=== PATIENT | female | born 1945 | race Caucasian/White ===

== ENCOUNTER 2018-04-24 08:19 | Outpatient (CLI) | payer MEDICARE, SELFPAY ==
[2018-04-24 09:12] LABS: HCT 39.8 % (36.0-46.0); HGB 13.6 g/dL (12.0-15.5); Mean Corp. HGB Concentration 34.2 g/dL (32.0-36.0); Mean Corpuscular Hemoglobin 31.5 pg (27.0-33.0); Mean Corpuscular Volume 92.1 fL (80-95); Mean Platelet Volume 8.6 fL (8.0-11.0); Platelet Count 277 x1000/uL (130-400); RBC 4.32 m/cumm (4.00-5.20); RBC Distribution Width 13.3 % (11.7-14.6)
[2018-04-24 09:28] LABS: Hemoglobin A1C 6.2 % (4.5-6.2)
[2018-04-24 11:02] LABS: Anion Gap 13.6 mmol/L (3-11); BUN 20 mg/dL (7-18); CO2 24.4 mmol/L (21.0-32.0); CREATININE 0.69 mg/dL (0.55-1.02); Calcium 9.6 mg/dL (8.5-10.1); Chloride 104 mmol/L (98-107); Cholesterol 143 mg/dL (50-200); Glucose 125 mg/dL (70-100); HDL Cholesterol 48 mg/dL (40-60); LDL CHOLESTEROL 77 mg/dL (<100); Potassium 3.6 mmol/L (3.5-5.1); Sodium 142 mmol/L (136-145); Triglyceride 119 mg/dL (30-150)
== END 2018-04-24 08:39 ==
PROVIDERS: PCP Family Medicine; Visit Provider Family Medicine
DX: E11.9 Type 2 diabetes mellitus without complications (principal); E78.5 Hyperlipidemia, unspecified; I10 Essential (primary) hypertension
CPT/HCPCS: 36415; 80048; 80061; 83721; 85027; 83036

== ENCOUNTER 2018-06-24 08:33 | Emergency (ER) | payer MEDICARE, SELFPAY ==
[2018-06-24 08:37] VITALS: BP 157/74; PULSE 59; RESP 16; TEMP 36.8; O2SAT 99
--- NOTE | 2018-06-24 08:51 | DI.RAD_ITS ---
SYMPTOMS/DIAGNOSIS: PAIN S/P FALL DOWN STAIRS RIGHT WRIST: Three views of the wrist were obtained. There is a comminuted, moderately displaced and impacted fracture of the distal radius. There is significant widening of the articular surface of the distal radius. There are severe degenerative changes of the wrist, predominantly involving the greater multangular 1st metacarpal joint. No additional fractures seen.
--- NOTE | 2018-06-24 08:58 | W.ED.GENAD ---
Discharge Plan Disposition Patient Disposition: HOME Condition: Stable Discharge Details Chief Complaint: Orthopedic Clinical Impression: Distal radius fracture, right Primary Care Provider: Angie Alonzo ED Provider: Dewayne Hernandez Home Meds and New Rx's Prescriptions: Continued metoprolol succinate [Toprol XL] 50 MG tablet extended release 24 hr 50 mg PO DAILY RF: 0 chlorthalidone 25 MG tablet 25 mg PO DAILY RF: 0 aspirin [Aspir-81] 81 MG tablet,delayed release (DR/EC) 81 mg PO DAILY RF: 0 tamoxifen 20 MG tablet 20 mg PO DAILY RF: 0 diltiazem HCl 240 MG capsule,extended release 24hr 240 mg PO .QPM RF: 0 potassium chloride [Klor-Con M20] 20 MEQ tablet,ER particles/crystals 20 meq PO DAILY RF: 0 lisinopril 40 MG tablet 40 mg PO DAILY RF: 0 multivitamin [Multi-Day] 1 EACH tablet 1 tab PO DAILY RF: 0 calcium carbonate-vitamin D3 1 EACH tablet 1 tab PO BID RF: 0 atorvastatin 40 MG tablet 40 mg PO .QPM RF: 0 pantoprazole 20 MG tablet,delayed release (DR/EC) 20 mg PO DAILY RF: 0 methylcellulose (laxative) [Citrucel Sugar Free] 1,191 GM powder 1 tbs PO DAILY RF: 0 ondansetron 4 MG tablet,disintegrating 4 mg PO Q8H PRN PRNQty: 15 RF: 0 Discharge Instructions Instructions: Wrist Fracture in Adults (ED) Additional Instructions: call orthopedics tomorrow morning for an appointment you can take 1000mg tylenol and 600mg ibuprofen every 6 hours for pain as needed Referrals: Carlos Encinas MD [ [facility] STAFF PHYSICIAN] - Medical Decision Making 72 yo female states she was going down stairs backwards carrying something when she missed the last step and landed on her right wrist. Denies hitting head or loc, no headache, neck pain even on rom, no chestp ain, leg pain left arm pain or abd pain. Has pain in the right wrist with swelling, will xray this to eval for fx, no pain in elbow or shoulder, humerus or upper forearm (proximal forearm) so do not feel other imaging required. xray shows fracture with mild displacement, pt placed in splint and will f/u with ortho. She declined any opiate prescriptions at this time Differential Diagnosis contusion, fx, sprain Imaging Data Radiologic Study: Attestation: I personally reviewed and interpreted this imaging study as follows: Imaging: X-Ray My impression: fracture HPI General Mode of arrival: ambulatory. Date/Time Provider Initiated Documentation: 06/24/18 08:44. Limitations to Documentation: no limitations. Information obtained by: patient. History of Present Illness 72 year old F presents to the emergency department with the chief complaint of right wrist pain, described as moderate, with intensity rated at 6. Quality is described as aching, and is localized to the right and upper extremity. Patient reports no radiation. Patient started experiencing this hour(s) (1) and it has been constant. No relieving factors improve symptom(s), No exacerbating factors reported . Patient notes no other symptoms.. Related Data Home Medications Medication Instructions Recorded Confirmed calcium carbonate-vitamin D3 1 tab PO BID 09/01/12 08/30/16 diltiazem HCl 240 mg PO .QPM 09/01/12 08/30/16 lisinopril 40 mg PO DAILY 09/01/12 08/30/16 multivitamin [Multi-Day] 1 tab PO DAILY 09/01/12 08/30/16 potassium chloride [Klor-Con M20] 20 meq PO DAILY 09/01/12 08/30/16 atorvastatin 40 mg PO .QPM 08/16/16 08/30/16 methylcellulose (laxative) 1 tbs PO DAILY 08/16/16 08/30/16 [Citrucel Sugar Free] pantoprazole 20 mg PO DAILY 08/16/16 08/30/16 ondansetron 4 mg PO Q8H PRN PRN #15 tab.rapdis 08/31/16 metoprolol succinate [Toprol XL] 50 mg PO DAILY tab-cap 11/23/16 aspirin [Aspir-81] 81 mg PO DAILY tab-cap 09/11/17 chlorthalidone 25 mg PO DAILY tab-cap 09/11/17 tamoxifen 20 mg PO DAILY tab-cap 09/11/17 Previous Rx's Medication Instructions Recorded ondansetron 4 mg PO Q8H PRN PRN #15 tab.rapdis 08/31/16 Allergies Allergy/AdvReac Type Severity Reaction Status Date / Time Penicillins Allergy Unknown Pt unaware Unverified 09/11/17 09:46 of allery or response General Stated Complaint: Orthopedic ERIC: 3 Review of Systems Review of Systems All systems reviewed & are unremarkable except as noted in HPI and below Constitutional Denies chills, Denies fever(s) and Denies weakness Eyes Denies loss of vision ENT Denies change in voice Cardiovascular Denies chest pain and Denies dyspnea Respiratory Denies dyspnea Gastrointestinal Denies abdominal pain, Denies nausea and Denies vomiting Genitourinary Denies dysuria Musculoskeletal Denies joint swelling Integumentary/Breasts Denies rash Neurologic Denies loss of vision and Denies weakness Endocrine Denies heat intolerance [facility] Medical History Adenomatous colon polyp Back pain Barretts esophagus Controlled diabetes mellitus without long-term current use of insulin Diverticulosis Gastric hemorrhage History of stroke Hyperlipidemia Hypertension Intracranial hemorrhage, spontaneous intraparenchymal, associated with hypertension, acute Obstructive sleep apnea Osteoarthritis Pancreatitis Sciatica of left side 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 Surgical History Biopsy of breast (12/04/16) Colonoscopy - IV Sedation EGD - IV Sedation Total replacement of hip Family History Other Lung cancer Social History Smoking/Tobacco Use Status: Never Exam Const General: no acute distress Orientation: alert [facility] Head: normal to inspection Ears: external ears normal General nose exam: external nose normal Mouth: moist mucous membranes Eyes General: appearance normal, both eyes and all related structures Neck Neck: normal visual inspection Resp Effort & Inspection: normal respiratory effort and able to speak in complete sentences Cardio Rate: regular rate Skin General skin exam: no rashes or lesions noted Neuro General: alert and oriented x3 Extrem General: normal capillary refill Psych Mental Status: mental status grossly normal Course Vital Signs Temperature 36.8 C 06/24/18 08:37 Pulse 59 L 06/24/18 08:37 Respiratory Rate 16 06/24/18 08:37 Blood Pressure 157/74 H 06/24/18 08:37 Pulse Oximetry 99 06/24/18 08:37 Temperature 36.8 C 06/24/18 08:37 Temperature Source Temporal Artery Scan 06/24/18 08:37 Pulse 59 L 06/24/18 08:37 Respiratory Rate 16 06/24/18 08:37 Respiratory Effort 06/24/18 08:45 Blood Pressure 157/74 H 06/24/18 08:37 Blood Pressure Position Sitting 06/24/18 08:37 Pulse Oximetry 99 06/24/18 08:37 Oxygen Delivery Method Room Air 06/24/18 08:37 Oxygen Flow Rate 0 06/24/18 08:37 Pain Level 8 06/24/18 08:37
--- NOTE | 2018-06-24 09:01 | ED.GENADUL_ITS ---
Discharge Plan Disposition Patient Disposition: HOME Condition: Stable Discharge Details Chief Complaint: Orthopedic Clinical Impression: Distal radius fracture, right Primary Care Provider: Angie Alonzo ED Provider: Dewayne Hernandez Home Meds and New Rx's Prescriptions: Continued metoprolol succinate [Toprol XL] 50 MG tablet extended release 24 hr 50 mg PO DAILY RF: 0 chlorthalidone 25 MG tablet 25 mg PO DAILY RF: 0 aspirin [Aspir-81] 81 MG tablet,delayed release (DR/EC) 81 mg PO DAILY RF: 0 tamoxifen 20 MG tablet 20 mg PO DAILY RF: 0 diltiazem HCl 240 MG capsule,extended release 24hr 240 mg PO .QPM RF: 0 potassium chloride [Klor-Con M20] 20 MEQ tablet,ER particles/crystals 20 meq PO DAILY RF: 0 lisinopril 40 MG tablet 40 mg PO DAILY RF: 0 multivitamin [Multi-Day] 1 EACH tablet 1 tab PO DAILY RF: 0 calcium carbonate-vitamin D3 1 EACH tablet 1 tab PO BID RF: 0 atorvastatin 40 MG tablet 40 mg PO .QPM RF: 0 pantoprazole 20 MG tablet,delayed release (DR/EC) 20 mg PO DAILY RF: 0 methylcellulose (laxative) [Citrucel Sugar Free] 1,191 GM powder 1 tbs PO DAILY RF: 0 ondansetron 4 MG tablet,disintegrating 4 mg PO Q8H PRN PRNQty: 15 RF: 0 Discharge Instructions Instructions: Wrist Fracture in Adults (ED) Additional Instructions: call orthopedics tomorrow morning for an appointment you can take 1000mg tylenol and 600mg ibuprofen every 6 hours for pain as needed Referrals: Carlos Encinas MD [ [facility] STAFF PHYSICIAN] - Medical Decision Making 72 yo female states she was going down stairs backwards carrying something when she missed the last step and landed on her right wrist. Denies hitting head or loc, no headache, neck pain even on rom, no chestp ain, leg pain left arm pain or abd pain. Has pain in the right wrist with swelling, will xray this to eval for fx, no pain in elbow or shoulder, humerus or upper forearm (proximal forearm) so do not feel other imaging required. xray shows fracture with mild displacement, pt placed in splint and will f/u with ortho. She declined any opiate prescriptions at this time Differential Diagnosis contusion, fx, sprain Imaging Data Radiologic Study: Attestation: I personally reviewed and interpreted this imaging study as follows: Imaging: X-Ray My impression: fracture HPI General Mode of arrival: ambulatory . Date/Time Provider Initiated Documentation: 06/24/18 08:44 . Limitations to Documentation: no limitations . Information obtained by: patient . History of Present Illness 72 year old F presents to the emergency department with the chief complaint of right wrist pain, described as moderate, with intensity rated at 6. Quality is described as aching, and is localized to the right and upper extremity. Patient reports no radiation. Patient started experiencing this hour(s) (1) and it has been constant. No relieving factors improve symptom(s), No exacerbating factors reported . Patient notes no other symptoms.. Related Data Home Medications Medication Instructions Recorded Confirmed calcium carbonate-vitamin D3 1 tab PO BID 09/01/12 08/30/16 diltiazem HCl 240 mg PO .QPM 09/01/12 08/30/16 lisinopril 40 mg PO DAILY 09/01/12 08/30/16 multivitamin [Multi-Day] 1 tab PO DAILY 09/01/12 08/30/16 potassium chloride [Klor-Con M20] 20 meq PO DAILY 09/01/12 08/30/16 atorvastatin 40 mg PO .QPM 08/16/16 08/30/16 methylcellulose (laxative) 1 tbs PO DAILY 08/16/16 08/30/16 [Citrucel Sugar Free] pantoprazole 20 mg PO DAILY 08/16/16 08/30/16 ondansetron 4 mg PO Q8H PRN PRN #15 tab.rapdis 08/31/16 metoprolol succinate [Toprol XL] 50 mg PO DAILY tab-cap 11/23/16 aspirin [Aspir-81] 81 mg PO DAILY tab-cap 09/11/17 chlorthalidone 25 mg PO DAILY tab-cap 09/11/17 tamoxifen 20 mg PO DAILY tab-cap 09/11/17 Previous Rx's Medication Instructions Recorded ondansetron 4 mg PO Q8H PRN PRN #15 tab.rapdis 08/31/16 Allergies Allergy/AdvReac Type Severity Reaction Status Date / Time Penicillins Allergy Unknown Pt unaware Unverified 09/11/17 09:46 of allery or response General Stated Complaint: Orthopedic ERIC: 3 Review of Systems Review of Systems All systems reviewed & are unremarkable except as noted in HPI and below Constitutional Denies chills, Denies fever(s) and Denies weakness Eyes Denies loss of vision ENT Denies change in voice Cardiovascular Denies chest pain and Denies dyspnea Respiratory Denies dyspnea Gastrointestinal Denies abdominal pain, Denies nausea and Denies vomiting Genitourinary Denies dysuria Musculoskeletal Denies joint swelling Integumentary/Breasts Denies rash Neurologic Denies loss of vision and Denies weakness Endocrine Denies heat intolerance [facility] Medical History Adenomatous colon polyp Back pain Barretts esophagus Controlled diabetes mellitus without long-term current use of insulin Diverticulosis Gastric hemorrhage History of stroke Hyperlipidemia Hypertension Intracranial hemorrhage, spontaneous intraparenchymal, associated with hypertension, acute Obstructive sleep apnea Osteoarthritis Pancreatitis Sciatica of left side 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 Surgical History Biopsy of breast (12/04/16) Colonoscopy - IV Sedation EGD - IV Sedation Total replacement of hip Family History Other Lung cancer Social History Smoking/Tobacco Use Status: Never Exam Const General: no acute distress Orientation: alert [facility] Head: normal to inspection Ears: external ears normal General nose exam: external nose normal Mouth: moist mucous membranes Eyes General: appearance normal, both eyes and all related structures Neck Neck: normal visual inspection Resp Effort & Inspection: normal respiratory effort and able to speak in complete sentences Cardio Rate: regular rate Skin General skin exam: no rashes or lesions noted Neuro General: alert and oriented x3 Extrem General: normal capillary refill Psych Mental Status: mental status grossly normal Course Vital Signs Temperature 36.8 C 06/24/18 08:37 Pulse 59 L 06/24/18 08:37 Respiratory Rate 16 06/24/18 08:37 Blood Pressure 157/74 H 06/24/18 08:37 Pulse Oximetry 99 06/24/18 08:37 Temperature 36.8 C 06/24/18 08:37 Temperature Source Temporal Artery Scan 06/24/18 08:37 Pulse 59 L 06/24/18 08:37 Respiratory Rate 16 06/24/18 08:37 Respiratory Effort 06/24/18 08:45 Blood Pressure 157/74 H 06/24/18 08:37 Blood Pressure Position Sitting 06/24/18 08:37 Pulse Oximetry 99 06/24/18 08:37 Oxygen Delivery Method Room Air 06/24/18 08:37 Oxygen Flow Rate 0 06/24/18 08:37 Pain Level 8 06/24/18 08:37
--- NOTE | 2018-06-24 10:30 | DI.VRAD_ITS ---
EXAM: XR Right Wrist Complete, 3 or more Views EXAM DATE/TIME: 06/24/2018 9:17 AM CLINICAL HISTORY: 72 years old, female; Injury or trauma; Fall; Initial encounter; Blunt trauma (contusions or hematomas; Wrist; Right; Injury date: 06/24/2018; Injury details: Fell down stairs TECHNIQUE: XR Right wrist 3 or more views. COMPARISON: No relevant prior studies available. FINDINGS: Bones/joints: There is an acute, considerably comminuted and variably displaced fracture through the distal radius. There is intra-articular extension to the radiocarpal compartment and distal radioulnar joint, and mild dorsal angulation. No other fracture is identified. The joint spaces are normally aligned. There is severe degenerative change at the first carpometacarpal joint, with mild osteophyte formation at the first interphalangeal joint. The bones appear osteopenic. Soft tissues: There is associated soft tissue swelling. IMPRESSION: 1. Acute distal radial fracture. 2. Apparent osteopenia. 3. Degenerative changes as described. Dictated and Authenticated by: Dewayne Tillman MD. Ordering:GERMAINE Buchanan MD
== END 2018-06-24 09:40 | disposition home or self-care (01) ==
PROVIDERS: Emergency Provider Emergency Medicine; PCP Family Medicine
DX: S52.501A Unspecified fracture of the lower end of right radius, initial encounter for closed fracture (principal); W10.8XXA Fall (on) (from) other stairs and steps, initial encounter; I10 Essential (primary) hypertension
CPT/HCPCS: 99283; 73110; L3908

== ENCOUNTER 2018-06-25 11:43 | Day surgery (SDC) | payer MEDICARE, SELFPAY ==
[2018-06-25 11:50] VITALS: BP 157/72; PULSE 66; RESP 16; TEMP 37.1; O2SAT 98
[2018-06-25] MEDS: Lactated Ringers 1,000 ML 80 ML IV (12:30)
--- NOTE | 2018-06-25 13:15 | DI.RAD_ITS ---
SYMPTOMS/DIAGNOSIS: RIGHT WRIST FRACTURE C-ARM FLUOROSCOPY, RIGHT WRIST: Fluoroscopy Time: 15 sec, 0.1144 mGy C-arm fluoroscopy was utilized by Dr. Encinas during apparent closed reduction of distal radial fracture fragments. Hard copies show markedly improved reduction of fracture fragments in comparison with the preprocedure film.
--- NOTE | 2018-06-25 13:31 | PDOC.DSDIS_ITS ---
Discharge Plan Disposition Patient Disposition: HOME Condition: Good Discharge Details Reason For Visit: (R) WRIST REDUCTION Attending Provider: Carlos Encinas Primary Care Provider: Angie Alonzo Home Meds and New Rx's Prescriptions: New ibuprofen 600 mg tablet 600 mg PO TID PRNQty: 60 RF: 3 acetaminophen 500 mg capsule 1,000 mg PO Q8H PRN (Reason: pain) Qty: 60 RF: 0 Continued metoprolol succinate [Toprol XL] 50 MG tablet extended release 24 hr 50 mg PO DAILY RF: 0 chlorthalidone 25 MG tablet 25 mg PO DAILY RF: 0 aspirin [Aspir-81] 81 MG tablet,delayed release (DR/EC) 81 mg PO DAILY RF: 0 tamoxifen 20 MG tablet 20 mg PO DAILY RF: 0 diltiazem HCl 240 MG capsule,extended release 24hr 240 mg PO .QPM RF: 0 potassium chloride [Klor-Con M20] 20 MEQ tablet,ER particles/crystals 20 meq PO DAILY RF: 0 lisinopril 40 MG tablet 40 mg PO DAILY RF: 0 multivitamin [Multi-Day] 1 EACH tablet 1 tab PO DAILY RF: 0 calcium carbonate-vitamin D3 1 EACH tablet 1 tab PO BID RF: 0 atorvastatin 40 MG tablet 40 mg PO .QPM RF: 0 pantoprazole 20 MG tablet,delayed release (DR/EC) 20 mg PO DAILY RF: 0 Citrucel Sugar Free 1,191 GM powder 1 tbs PO DAILY RF: 0 acetaminophen 325 mg Tablet 650 mg PO Q6H PRNRF: 0 naproxen sodium [Aleve] 220 mg Capsule 1 cap PO PRN PRNRF: 0 Discharge Instructions Additional Instructions: Activity: You should keep the hand elevated as much as possible for the first few days. You may use the fingers as tolerated but avoid trying to do too much too soon. You may perform light activities with the cast in place. Dressing/Cast: Your cast should stay in place at all times. Do NOT get it wet. Medications: - You should take Tylenol and Ibuprofen for baseline pain control. - You may apply ice. Follow-up: 10 days Referrals: Carlos Encinas MD [ [facility] STAFF PHYSICIAN] - Equipment/Supplies: Sling Activity:: Elevate Remove Dressings/Wound Care:: Do Not Remove Shower/Bathe:: Cover Diet:: As Tolerated Discharge Orders Discharge Orders: Discharge Order (Routine); Ordered 06/25/18 Ordered By: Carlos Encinas DS: Diagnosis Discharge Diagnosis (1) Closed fracture of right distal radius: Status: Acute
[2018-06-25] MEDS: Bupivacaine 0.5% Pres-Free 30 ML VIAL (14:15)
[2018-06-25 15:01] VITALS: BP 141/71; PULSE 60; RESP 17; TEMP 37.1; O2SAT 96
--- NOTE | 2018-06-26 07:34 | W.PM.OP ---
Date of service: 06/25/18 Time of Service: 15:34 Operative Note DATE OF PROCEDURE: 06/25/18 PRE-OP DIAGNOSIS: Right Distal Radius Fracture POST-OP DIAGNOSIS: same PROCEDURE: Closed reduction of right distal radius SURGEON: Carlos Encinas ANESTHESIA: MAC ESTIMATED BLOOD LOSS: 0 COMPLICATIONS: None Patient was transported to: PACU Patient's condition: stable Indications: Abimbola is a 72 year old female who suffered a distal radius fracture. There was significant displacement and therefore a reduction was recommended. I explained the difference between a closed reduction with and without anesthesia. The patient desired to proceed with anesthetic to improve reduction results and to minimize discomfort. I reviewed the risks to include loss of reduction, malunion, nonunion, cast complications, compartment syndrome, carpal tunnel syndrome, skin tearing. Despite these risks, the patient desired to proceed. Findings: There was a significantly dorsally angulated distal radius fracture. A closed reduction was performed and the reduction obtained near anatomic alignment with recreation of height, radial inclination, and volar tilt. Procedure Description: Abimbola was greeted in the preoperative holding area. The consent was reviewed the patient and signed. History physical was updated. The patient was taken back to the operating room and placed in supine position. The correct site was identified and a timeout was performed safe surgery. Hematoma block consisting of 10 cc of 1% lidocaine was then injected into the fracture site after cleansing the skin with ChloraPrep. A MAC anesthetic was administered. A gentle reduction maneuver was performed using traction and dorsal to volar pressure. The hand was placed in finger traps with counterweight of 10 pounds. Fluoroscopy was used to confirm appropriate reduction and modifications were made to obtain an anatomic reduction. Both AP and lateral views were obtained with adequate reduction. A cast was then applied. This was first wrapped thoroughly with labral. Fiberglass cast was then applied over the forearm and wrist in a short arm cast. X-rays again used to confirm appropriate positioning. A mold of the arm was performed to encourage the reduction and prevent loss of reduction. The arm was removed from the finger traps and the counterweight. A three-point mold was continued and checked on the fluoroscopy to ensure adequate reduction out of the finger traps. The arm was then placed in a sling. The patient was awakened from anesthesia and taken to the PACU in stable condition.
== END 2018-06-25 15:25 | disposition home or self-care (01) ==
PROVIDERS: PCP Family Medicine; Visit Provider Student in an Organized Health Care Education/Training Program
PROC: (CPT 25605; principal; 2018-06-25 13:30)
DX: S52.501A Unspecified fracture of the lower end of right radius, initial encounter for closed fracture (principal); W17.89XA Other fall from one level to another, initial encounter; I10 Essential (primary) hypertension
CPT/HCPCS: 25605; 73100; J1885; L3650

== ENCOUNTER 2018-07-02 10:14 | Outpatient (CLI) | payer MEDICARE, SELFPAY ==
--- NOTE | 2018-07-02 09:49 | DI.RAD_ITS ---
SYMPTOMS/DIAGNOSIS: F/U CLOSED REDUCTION OF RT WRIST FX RIGHT WRIST: Comparison is made with [id number] c-arm images. There has been no change in the alignment of the comminuted intra-articular fracture of the distal radius. Severe degenerative changes are again noted at the first carpal metacarpal joint.
== END 2018-07-02 10:34 ==
PROVIDERS: PCP Family Medicine; Visit Provider Student in an Organized Health Care Education/Training Program
DX: S52.571D Other intraarticular fracture of lower end of right radius, subsequent encounter for closed fracture with routine healing (principal); M18.11 Unilateral primary osteoarthritis of first carpometacarpal joint, right hand; W10.8XXD Fall (on) (from) other stairs and steps, subsequent encounter
CPT/HCPCS: 73110

== ENCOUNTER 2018-07-16 11:04 | Outpatient (CLI) | payer MEDICARE, SELFPAY ==
--- NOTE | 2018-07-16 10:53 | DI.RAD_ITS ---
SYMPTOMS/DIAGNOSIS: SURGERY F/U RIGHT WRIST: Comparison is made with 2Jan19. A cast remains in place. There has been no change in the alignment of the comminuted intra-articular fracture of the distal radius. Severe degenerative changes of the first carpal metacarpal joint are again noted.
== END 2018-07-16 11:24 ==
PROVIDERS: PCP Family Medicine; Referring Provider Family Medicine; Visit Provider Student in an Organized Health Care Education/Training Program
DX: S52.571D Other intraarticular fracture of lower end of right radius, subsequent encounter for closed fracture with routine healing (principal); X58.XXXD Exposure to other specified factors, subsequent encounter
CPT/HCPCS: 73110; L3908

== ENCOUNTER → 2018-07-22 14:52 | Outpatient (BNVA) | payer MEDICARE, SELFPAY | PROVIDERS: PCP Family Medicine; Referring Provider Family Medicine; Visit Provider Student in an Organized Health Care Education/Training Program | DX: S52.501D Unspecified fracture of the lower end of right radius, subsequent encounter for closed fracture with routine healing (principal); X58.XXXD Exposure to other specified factors, subsequent encounter | CPT/HCPCS: L3908 ==

== ENCOUNTER 2018-08-04 08:19 | Outpatient (CLI) | payer MEDICARE, SELFPAY ==
--- NOTE | 2018-08-04 08:11 | DI.RAD_ITS ---
SYMPTOM/DIAGNOSIS: F/U FX RIGHT WRIST: Two views were performed. Comparison is made with 07/02/18. The cast has been removed. There is a question of increasing impaction at the comminuted intra- articular fracture of the distal radius when compared with the previous exam. Soft tissue swelling remains present. Degenerative changes are seen which are severe at the first carpal metacarpal joint. IMPRESSION: Question of increased impaction and displacement of the distal radial fracture.
== END 2018-08-04 08:39 ==
PROVIDERS: PCP Family Medicine; Referring Provider Family Medicine; Visit Provider Student in an Organized Health Care Education/Training Program
DX: S52.501D Unspecified fracture of the lower end of right radius, subsequent encounter for closed fracture with routine healing; W17.89XD Other fall from one level to another, subsequent encounter
CPT/HCPCS: 73100

== ENCOUNTER 2018-09-01 09:19 | Outpatient (CLI) | payer MEDICARE, SELFPAY ==
--- NOTE | 2018-09-01 09:04 | DI.RAD_ITS ---
SYMPTOM/DIAGNOSIS: F/U FX RIGHT WRIST: Comparison is made with 08/04/18. Two views were performed. There has been no change in the alignment of the comminuted impacted distal radial fracture. There is some increased healing when compared with the previous exam.
== END 2018-09-01 09:39 ==
PROVIDERS: PCP Family Medicine; Referring Provider Family Medicine; Visit Provider Student in an Organized Health Care Education/Training Program
DX: S52.501D Unspecified fracture of the lower end of right radius, subsequent encounter for closed fracture with routine healing; X58.XXXD Exposure to other specified factors, subsequent encounter
CPT/HCPCS: 99213; 73100

== ENCOUNTER 2018-11-20 12:42 | Outpatient (REF) | payer MEDICARE, SELFPAY ==
[2018-11-20 20:25] LABS: COMMENT (LAB VIEW ONLY) 57.06 mg/dL; Microalb ug/mg Crea 4.6 ug/mg Cr
== END 2018-11-20 13:02 ==
LOC: NCHCN 12:42
PROVIDERS: PCP Family Medicine; Visit Provider Family Medicine
DX: E11.9 Type 2 diabetes mellitus without complications (principal)
CPT/HCPCS: 82043; 82570

== ENCOUNTER 2018-11-28 09:17 | Outpatient (CLI) | payer MEDICARE, SELFPAY ==
--- NOTE | 2018-11-28 09:13 | DI.RAD_ITS ---
SYMPTOM/DIAGNOSIS: DJD LT HIP LEFT HIP AND PELVIS: Three views. Comparison is made with 09/11/17. There is moderately severe narrowing of the joint space. Subchondral sclerosis is noted. There are osteophytes arising from the both the acetabulum and the femoral head. Overall the appearance is stable compared to the prior examination. Note is also made of a right total hip replacement. No acute fracture or dislocation is seen. IMPRESSION: Marked osteoarthritis of the left hip.
== END 2018-11-28 09:37 ==
PROVIDERS: PCP Family Medicine; Referring Provider Family Medicine; Visit Provider Student in an Organized Health Care Education/Training Program
DX: M25.552 Pain in left hip (principal); M16.12 Unilateral primary osteoarthritis, left hip; Z96.641 Presence of right artificial hip joint; I10 Essential (primary) hypertension; E11.9 Type 2 diabetes mellitus without complications
CPT/HCPCS: 99214; 73502

== ENCOUNTER 2018-12-02 01:02 | Outpatient (CLI) | payer MEDICARE, SELFPAY ==
--- NOTE | 2018-12-02 02:30 | DI.RAD_ITS ---
SYMPTOMS/DIAGNOSIS: [facility], Z00.00, SCREENING FOR OSTEOPOROSIS IN POSTMENOPAUSAL WOMAN, Z78.0 DEXA SCAN: DEXA scan was performed according to the usual protocol. The findings for lumbar spine scanning are a T score of 2.2. Previous examination of January 2011 showed lumbar spine T score of 1.8. The left hip T score is -0.1 with left femoral neck T score of -0.6. Previous left hip T score was 0.3 in January 2011. Left forearm scanning shows a T score of -0.9. CONCLUSION: Findings consistent with normal bone density according to the WHO criteria. Please note that the lateral vertebral scanogram shows no evidence of a vertebral compression fracture.
== END 2018-12-02 01:22 ==
PROVIDERS: PCP Family Medicine; Visit Provider Family Medicine
DX: Z13.820 Encounter for screening for osteoporosis (principal); Z78.0 Asymptomatic menopausal state
CPT/HCPCS: 77080

== ENCOUNTER 2018-12-18 12:41 | Emergency (ER) | payer MEDICARE, SELFPAY ==
[2018-12-18 12:43] VITALS: BP 120/62; PULSE 104; RESP 16; TEMP 38.3; O2SAT 98
--- NOTE | 2018-12-18 13:01 | ED.GENADUL_ITS ---
Discharge Plan Disposition Patient Disposition: HOSPITAL, NON-SPECIFIC Condition: Stable Discharge Details Chief Complaint: Cellulitis Clinical Impression: Cellulitis of right leg Primary Care Provider: Angie Alonzo ED Provider: Cornel Sands Home Meds and New Rx's Prescriptions: No Action metoprolol succinate [Toprol XL] 50 MG tablet extended release 24 hr 50 mg PO DAILY RF: 0 chlorthalidone 25 MG tablet 25 mg PO DAILY RF: 0 aspirin [Aspir-81] 81 MG tablet,delayed release (DR/EC) 81 mg PO DAILY RF: 0 tamoxifen 20 MG tablet 20 mg PO DAILY RF: 0 potassium chloride [Klor-Con M20] 20 MEQ tablet,ER particles/crystals 20 meq PO DAILY RF: 0 lisinopril 40 MG tablet 40 mg PO DAILY RF: 0 multivitamin [Multi-Day] 1 EACH tablet 1 tab PO DAILY RF: 0 calcium carbonate-vitamin D3 1 EACH tablet 1 tab PO BID RF: 0 atorvastatin 40 MG tablet 40 mg PO .QPM RF: 0 pantoprazole 20 MG tablet,delayed release (DR/EC) 20 mg PO DAILY RF: 0 Citrucel Sugar Free 1,191 GM powder 1 tbs PO DAILY RF: 0 amlodipine 5 mg Tablet 5 mg PO DAILY RF: 0 acetaminophen 325 mg Tablet 650 mg PO Q6H PRNRF: 0 naproxen sodium [Aleve] 220 mg Capsule 1 cap PO PRN PRNRF: 0 ibuprofen 600 mg tablet 600 mg PO TID PRNQty: 60 RF: 3 acetaminophen 500 mg capsule 1,000 mg PO Q8H PRN (Reason: pain) Qty: 60 RF: 0 Discharge Data Discharge Date/Time-TO BE ENTERED AT DEPARTURE: 12/18/18 19:58 Medical Decision Making <Johnnie Wolff MD - Last Filed: 12/18/18 16:01> 73-year-old female presents from home with hours of right lower extremity cellulitis and fever. She arrives with a temperature 38.3, pulse 104, normal blood pressure. This appears consistent with acutely developing cellulitis. IV placed, labs including blood culture and lactic acid obtained. Patient given parenteral fluids and ceftriaxone. She has an elevated white blood cell count of 27. Lactic acid is slightly elevated at 2.4. Chemistries: Sodium 140, potassium 3.6, chloride 102, bicarb 27, BUN 22, creatinine 0.8. Magnesium 1.5 and supplemented. Patient with improvement of pulse to 74 and defervesced with medications. Discussed with her I feel she is best served by admission to the hospital for cellulitis. Informed at 4 PM but there are no beds available in the hospital, please see Mr Sands's note regarding details of final disposition. <Cornel Sands NP - Last Filed: 12/18/18 21:30> Patient signed out to me by Dr. Johnnie Wolff pending transfer due to bed availability. Patient with significant cellulitis of the right lower extremity. Patient assessed and shows erythema from the ankle all the way past the knee mostly on the anterior lateral aspect of the right lower leg. patient remained stable and no worsening condition. Upon examination of the leg and notation of Rocephin being given earlier I did decide to also dose patient with vancomycin pending transfer. Called both [place] and [facility] for transfer due to no bed availability at our facility. Spoke with Dr. Melendez at [facility] whom accepted patient for admission of cellulitis. Patient was in agreement with this plan of care. Patient remained stable throughout my care patient with no new or worsening symptoms noted. HPI <Johnnie Wolff MD - Last Filed: 12/18/18 16:01> General Mode of arrival: ambulatory . Date/Time Provider Initiated Documentation: 12/18/18 12:41 . Limitations to Documentation: no limitations . Information obtained by: patient . History of Present Illness 73 year old F presents to the emergency department with the chief complaint of Right leg rash and fever, described as mild, Quality is described as dull and constant, and is localized to the left and lower extremity. Patient reports no radiation. Patient started experiencing this hour(s) and it has been constant. No relieving factors improve symptom(s), No exacerbating factors reported . Patient notes fever/chills. Patient did receive the following treatments prior to arrival, none Related Data Home Medications Medication Instructions Recorded Confirmed calcium carbonate-vitamin D3 1 tab PO BID 09/01/12 12/18/18 lisinopril 40 mg PO DAILY 09/01/12 12/18/18 multivitamin [Multi-Day] 1 tab PO DAILY 09/01/12 12/18/18 potassium chloride [Klor-Con M20] 20 meq PO DAILY 09/01/12 12/18/18 Citrucel Sugar Free 1 tbs PO DAILY 08/16/16 12/18/18 atorvastatin 40 mg PO .QPM 08/16/16 12/18/18 pantoprazole 20 mg PO DAILY 08/16/16 12/18/18 metoprolol succinate [Toprol XL] 50 mg PO DAILY tab-cap 11/23/16 12/18/18 aspirin [Aspir-81] 81 mg PO DAILY tab-cap 09/11/17 12/18/18 chlorthalidone 25 mg PO DAILY tab-cap 09/11/17 12/18/18 tamoxifen 20 mg PO DAILY tab-cap 09/11/17 12/18/18 acetaminophen 1,000 mg PO Q8H PRN #60 cap 06/25/18 11/28/18 acetaminophen 650 mg PO Q6H PRN 06/25/18 11/28/18 ibuprofen 600 mg PO TID PRN #60 tab 06/25/18 12/18/18 naproxen sodium [Aleve] 1 cap PO PRN PRN 06/25/18 11/28/18 amlodipine 5 mg PO DAILY 12/18/18 12/18/18 Previous Rx's Medication Instructions Recorded acetaminophen 1,000 mg PO Q8H PRN #60 cap 06/25/18 ibuprofen 600 mg PO TID PRN #60 tab 06/25/18 Allergies Allergy/AdvReac Type Severity Reaction Status Date / Time Penicillins Allergy Unknown Pt unaware Unverified 11/28/18 09:12 of allery or response General Stated Complaint: Cellulitis ERIC: 3 Review of Systems <Johnnie Wolff MD - Last Filed: 12/18/18 16:01> Review of Systems Positive fever and chills at home. Nauseated without emesis. Denies fall or injury. No chest pain or shortness of breath. 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 Pleasant, well groomed, interactive. HEAD: Normocephalic, atraumatic ENT: Mucous membranes moist, oropharynx unremarkable, External ear exam unremarkable EYES: PERRL, EOMI NECK: Full ROM, no REBECCA, no menigismus CHEST/RESP: Nontender, clear to auscultation bilateral, no wheeze/rhonchi/rales CARDIOVASCULAR: Regular, borderline tachycardia, no murmur, rub dot. 2+ Rad pulse bilateral ABDOMEN: Soft, nontender, no mass. +Bowel sounds EXT: Full ROM, there is erythema and warmth in a patchy distribution from the knee to ankle of the right lower extremity . Palpable DP bilaterally. No wounds Neuro: Grossly normal neurologic exam, conversant, interactive. Psych: Speech fluent, thoughts congruent, affect normal Course <Johnnie Wolff MD - Last Filed: 12/18/18 16:01> Vital Signs Temperature 38.3 C H 12/18/18 12:43 Pulse 104 H 12/18/18 12:43 Respiratory Rate 16 12/18/18 12:43 Blood Pressure 120/62 12/18/18 12:43 Pulse Oximetry 98 12/18/18 12:43 Temperature 38.3 C H 12/18/18 12:43 Temperature Source Tympanic 12/18/18 12:43 Pulse 104 H 12/18/18 12:43 Respiratory Rate 16 12/18/18 12:43 Blood Pressure 120/62 12/18/18 12:43 Blood Pressure Position Sitting 12/18/18 12:43 Pulse Oximetry 98 12/18/18 12:43 Oxygen Delivery Method Room Air 12/18/18 12:43 Oxygen Flow Rate 0 12/18/18 12:43 Pain Level 5 12/18/18 12:43 Lab/Test Results Lab/Test Results: 12/18/18 12:54 Blood Blood Culture - Pending 12/18/18 12:54 Blood Blood Culture - Pending Sign Out <Johnnie Wolff MD - Last Filed: 12/18/18 16:01> Sign Out Data: Sign Out Comment: Received notice of no bed available at 4 PM. Patient will require transfer Last updated by Johnnie Wolff MD at 12/18/18 15:56
--- NOTE | 2018-12-18 13:36 | NUR.NOTE ---
labs drawn x1 set of blood cultures drawn as per mdo Nursing Note:
[2018-12-18] MEDS: Acetaminophen 325 MG TAB 650 MG PO (14:10)
[2018-12-18 14:11] LABS: Abs Immature Grans 0.41 k/cumm (0.0-0.09); HCT 39.3 % (36.0-46.0); HGB 13.4 g/dL (12.0-15.5); Mean Corp. HGB Concentration 34.1 g/dL (32.0-36.0); Mean Corpuscular Hemoglobin 31.3 pg (27.0-33.0); Mean Corpuscular Volume 91.8 fL (80-95); Mean Platelet Volume 8.8 fL (8.0-11.0); Platelet Count 214 x1000/uL (130-400); RBC 4.28 m/cumm (4.00-5.20)
[2018-12-18] MEDS: Normal Saline Flush 10 ML SYR IVP (14:11)
[2018-12-18] MEDS: Normal Saline 1,000 ML 125 ML IV (14:11)
--- NOTE | 2018-12-18 14:12 | NUR.NOTE ---
lab at bedside for lab draw Nursing Note:
[2018-12-18 14:19] LABS: White Blood Cell Count 27.31 k/cumm (4.4-10.8)
[2018-12-18 14:20] LABS: Absolute Basophil Count 0.27 k/cumm (0.0-0.2); Absolute Lymphocyte Count 1.09 k/cumm (1.2-3.4); Absolute Monocyte Count 1.37 k/cumm (0.11-0.7); Absolute Neutrophil Count 24.31 k/cumm (1.2-6.7); Diff Comment Manual Differential; RBC Morphology Normal
--- NOTE | 2018-12-18 14:27 | NUR.NOTE ---
lab at bedside with 2ed nurse for cont attempt at lab redraw and 2ed set of blood cultures due to pt diff stick Nursing Note:
[2018-12-18] MEDS: cefTRIAXone 1 GM/50 ML BAG IVPB (14:56)
[2018-12-18 14:57] LABS: Lactate-non-spesis 2.4 mmol/l (0.6-1.4)
[2018-12-18 15:17] LABS: ALT 36 U/L (12-78); AST 34 U/L (15-37); Albumin 3.3 g/dL (3.4-5.0); Alkaline Phosphatase 51 U/L (46-116); Anion Gap 10.6 mmol/L (3-11); BUN 22 mg/dL (7-18); Bilirubin, Total 0.7 mg/dL (0.2-1.0); CO2 27.4 mmol/L (21.0-32.0); CREATININE 0.89 mg/dL (0.55-1.02); Calcium 8.8 mg/dL (8.5-10.1); Chloride 102 mmol/L (98-107); Glucose 158 mg/dL (70-100); Magnesium 1.5 mg/dL (1.8-2.4); Potassium 3.6 mmol/L (3.5-5.1); Sodium 140 mmol/L (136-145); Total Protein 6.9 g/dL (6.4-8.2)
[2018-12-18 15:30] VITALS: BP 143/74; PULSE 78; RESP 16; TEMP 37.4; O2SAT 98
--- NOTE | 2018-12-18 15:31 | NUR.NOTE ---
rpt labs obtained by this nurse sent to lab md made aware of updated vitals ivf infusing Nursing Note:
[2018-12-18] MEDS: MAGNESIUM SULFATE 1 GM/100 ML BAG IVPB (15:45)
[2018-12-18] MEDS: Normal Saline 250 ML 500 ML IV (15:51)
[2018-12-18] MEDS: VANCOMYCIN 1,000 MG in Normal Saline 250 ML 250 MG IV (18:09)
[2018-12-18 20:05] VITALS: BP 158/82; PULSE 87; RESP 18; TEMP 37.7; O2SAT 98
--- NOTE | 2018-12-20 13:26 | NUR.NOTE ---
Patient transferred to [facility], Blood Culture Report faxed to [phone].Nursing Note:
--- NOTE | 2018-12-21 10:37 | NUR.NOTE ---
patient transferred to [facility], report faxed to [phone].Nursing Note:
== END 2018-12-18 19:58 | disposition short-term general hospital (02) ==
PROVIDERS: Emergency Medicine; Emergency Provider Nurse Practitioner Family; PCP Family Medicine
DX: L03.115 Cellulitis of right lower limb (principal); D72.829 Elevated white blood cell count, unspecified; B95.7 Other staphylococcus as the cause of diseases classified elsewhere
CPT/HCPCS: 80053; 87040; 87077; 96361; 96365; 96367; 99285; 83605; 83735; 85025; 87186; 99284; J0696; J3475; J3490

== ENCOUNTER 2018-12-26 01:29 | Outpatient (CLI) | payer MEDICARE, SELFPAY ==
--- NOTE | 2018-12-26 12:55 | DI.US_ITS ---
SYMPTOM/DIAGNOSIS: LEG EDEMA, R60.0, CELLULITIS RT LEG,? DVT, KNOWN BREAST CA DUPLEX VENOUS ULTRASOUND RIGHT LOWER EXTREMITY: The study was carried out according to the usual protocol. The superficial, femoral, popliteal and proximal trifurcation in the superior portion of the leg are well seen. Good compressibility is noted throughout. Flow is demonstrated and flow augmentation was easily elicited with calf compression. SUMMARY: There is no evidence of DVT. Note is made of a small Garza's cyst measuring 29 by 25 by 9 mm. in diameter.
== END 2018-12-26 01:49 ==
PROVIDERS: PCP Family Medicine; Visit Provider Family Medicine
DX: R60.0 Localized edema (principal); L03.115 Cellulitis of right lower limb; M71.21 Synovial cyst of popliteal space [Baker], right knee
CPT/HCPCS: 93971

== ENCOUNTER 2019-01-08 13:38 | Outpatient (CLI) | payer MEDICARE, SELFPAY ==
[2019-01-08 15:22] LABS: HCT 37.6 % (36.0-46.0); HGB 12.6 g/dL (12.0-15.5); Mean Corp. HGB Concentration 33.5 g/dL (32.0-36.0); Mean Corpuscular Volume 92.4 fL (80-95); Mean Platelet Volume 8.2 fL (8.0-11.0); Platelet Count 311 x1000/uL (130-400); RBC 4.07 m/cumm (4.00-5.20); RBC Distribution Width 13.7 % (11.7-14.6)
[2019-01-08 16:14] LABS: Anion Gap 10.3 mmol/L (3-11); BUN 21 mg/dL (7-18); CO2 26.7 mmol/L (21.0-32.0); CREATININE 0.66 mg/dL (0.55-1.02); Calcium 8.9 mg/dL (8.5-10.1); Chloride 105 mmol/L (98-107); Glucose 102 mg/dL (70-100); Potassium 3.8 mmol/L (3.5-5.1); Sodium 142 mmol/L (136-145)
[2019-01-08 20:09] LABS: Hemoglobin A1C 6.5 % (4.5-6.2)
--- NOTE | 2019-01-09 15:17 | W.PREOPHP ---
Date of service: 01/08/19 Assessment and Plan (1) Primary osteoarthritis of left hip: Current visit: No Status: Chronic Left total hip replacement. Due to a new finding of a systolic heart murmur on the right sternal border, Abimbola will likely need cardiac work-up prior to surgery. She has undergone a left total hip replacement within the last 2 years, as well as a closed reduction of her wrist, but neither of these history and physicals prior to the operations noticed a heart murmur at that time. Admits that this heart murmur is new within the last few months, and after discussion with Chrissy Guo CRNA, it was determined that she should have a cardiac work-up to investigate his new murmur. After cardiac clearance, she is going to move forward with her left total hip replacement. Details of surgery were discussed with patient as well as risks and pertinent anatomy. All questions were answered. History of Present Illness Chief Complaint: Left hip pain Narrative: Abimbola is a 73-year-old female who comes in today for a preop history and physical for a left total hip replacement. She has been complaining of pain in her left hip for multiple years now, but over the last few months she has noticed that the hip pain is getting in the way of some of her activities. She usually is able to complete most of her activities that she needs to do, but she notices that she is in pretty severe pain while she does them. She is unable to enjoy shopping with her daughter and granddaughter because of her left hip pain. She also states that she has stopped going for walks for pleasure because of hip pain, and only walks when she has to walk. She ended up noticing that she is having difficulty putting on shoes and socks as well. She has done very well from a right total hip replacement, and would like to move forward with a left total hip replacement. She has had x-rays which show severe arthritis of the left hip with a loss of joint space and bone spurs throughout the acetabulum and femur. Dr. Encinas does offer a total hip replacement on the left side at this time, and she is anxious to proceed. Pertinent Surgical Information Abimbola does state that she has been told that she has prediabetes, but is controlling it with diet and exercise. She has been unable to exercise recently because of her hip pain, and as a result her A1c has gone up slightly. Her last A1c was done in March, and it appears to be 6.4. At this visit today, Abimbola was noticed to have a new heart murmur over the right sternal border. She does not have any symptoms of dyspnea or chest pain with exertion, but she has never had a cardiac work-up. She has had surgery including a right total hip replacement and a closed reduction of her wrist within the last 2 years, but there is no mention of a murmur noticed on any of those preop visits. Patient denies history of CVA, RI, angina, asthma, COPD, renal or liver disorders, hepatitis, bleeding disorders, immune or thyroid disorders. No complications from anesthesia. Review of Systems Constitutional Denies fever(s) ENT Denies dizziness and Denies sore throat Cardiovascular Denies chest pain, Denies palpitations and Denies dyspnea Respiratory Denies cough and Denies dyspnea Gastrointestinal Denies abdominal pain, Denies melena, Denies hematochezia, Denies diarrhea, Denies nausea and Denies vomiting Genitourinary Denies hematuria and Denies dysuria Neurologic Denies dizziness Endocrine Denies palpitations [facility] Medical History (Updated 01/08/19 @ 14:34 by Billie Uribe RN) Adenomatous colon polyp Back pain Barretts esophagus Breast CA (Chronic) Controlled diabetes mellitus without long-term current use of insulin Diverticulosis Gastric hemorrhage History of hysterectomy (Chronic) History of stroke Hyperlipidemia Hypertension Intracranial hemorrhage, spontaneous intraparenchymal, associated with hypertension, acute Obstructive sleep apnea Osteoarthritis Pancreatitis Sciatica of left side 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 Surgical History (Updated 01/08/19 @ 14:35 by Billie Uribe RN) Biopsy of breast (12/04/16) Colonoscopy - IV Sedation EGD - IV Sedation H/O local excision of skin lesion (Acute) History of cholecystectomy (Chronic) S/P lumpectomy, left breast (Acute) Total replacement of hip Family History (Updated 01/08/19 @ 14:20 by Billie Uribe RN) Other Diabetes Hypertension Lung cancer Social History Smoking/Tobacco Use Status: Never Drug use: Never Do you feel safe in your relationship?: Yes Meds Home Medications Medication Instructions Recorded Confirmed Type calcium carbonate-vitamin D3 1 tab PO BID 09/01/12 01/08/19 History multivitamin [Multi-Day] 1 tab PO DAILY 09/01/12 01/08/19 History potassium chloride [Klor-Con M20] 20 meq PO DAILY 09/01/12 01/08/19 History Citrucel Sugar Free 1 tbs PO DAILY 08/16/16 01/08/19 History atorvastatin 40 mg PO .QPM 08/16/16 01/08/19 History pantoprazole 20 mg PO DAILY 08/16/16 01/08/19 History metoprolol succinate [Toprol XL] 50 mg PO DAILY tab-cap 11/23/16 01/08/19 History aspirin [Aspir-81] 81 mg PO DAILY tab-cap 09/11/17 01/08/19 History chlorthalidone 25 mg PO DAILY tab-cap 09/11/17 01/08/19 History tamoxifen 20 mg PO DAILY tab-cap 09/11/17 01/08/19 History acetaminophen 1,000 mg PO Q8H PRN #60 cap 06/25/18 01/08/19 Rx acetaminophen 650 mg PO Q6H PRN 06/25/18 01/08/19 History ibuprofen 600 mg PO TID PRN #60 tab 06/25/18 01/08/19 Rx amlodipine 5 mg PO HS 12/18/18 01/08/19 History lisinopril 40 mg tablet 40 mg PO DAILY tab 01/08/19 01/08/19 History multivitamin 1 cap PO DAILY 01/08/19 01/08/19 History Allergies Allergy/AdvReac Type Severity Reaction Status Date / Time Penicillins Allergy Unknown Pt unaware Unverified 01/08/19 12:57 of allery or response Exam [facility] Head: normocephalic and atraumatic General nose exam: no nasal discharge Throat: uvula midline and no uvular edema Other: soft palate rises symmetrically, no erythema Eyes Conjunctivae: conjunctivae normal Sclera: sclerae normal Pupils: PERRL Resp Effort & Inspection: normal respiratory effort Auscultation: clear to auscultation bilaterally and no wheezes Cardio Rate: regular rate Rhythm: regular rhythm Heart Sounds: S1 normal, S2 normal and murmur systolic at the right sternal border GI Palpation: soft, no hepatosplenomegaly and nontender Auscultation: normal bowel sounds Results Labs : 01/08/19 15:14 01/08/19 15:14 Laboratory Results - last 24 hr 01/08/19 01/08/19 01/08/19 15:14 15:14 15:14 WBC 5.00 RBC 4.07 Hgb 12.6 Hct 37.6 MCV 92.4 MCH 31.0 MCHC 33.5 RDW 13.7 Plt Count 311 MPV 8.2 Sodium 142 Potassium 3.8 Chloride 105 Carbon Dioxide 26.7 Anion Gap 10.3 BUN 21 H Creatinine 0.66 Estimated GFR/1.73 m2 >= 60.00 Glucose 102 H Hemoglobin A1c 6.5 H Calcium 8.9 Patient ABO/Rh Antibody Screen 01/08/19 15:14 WBC RBC Hgb Hct MCV MCH MCHC RDW Plt Count MPV Sodium Potassium Chloride Carbon Dioxide Anion Gap BUN Creatinine Estimated GFR/1.73 m2 Glucose Hemoglobin A1c Calcium Patient ABO/Rh O Negative Antibody Screen Negative
== END 2019-01-08 13:58 ==
PROVIDERS: PCP Family Medicine; Visit Provider Student in an Organized Health Care Education/Training Program
DX: M25.552 Pain in left hip (principal); M16.12 Unilateral primary osteoarthritis, left hip; I10 Essential (primary) hypertension; E11.9 Type 2 diabetes mellitus without complications; E78.5 Hyperlipidemia, unspecified; Z01.812 Encounter for preprocedural laboratory examination; Z01.818 Encounter for other preprocedural examination; R01.1 Cardiac murmur, unspecified
CPT/HCPCS: 36415; 80048; 85027; 86850; 86900; 86901; NC; 83036; 93005; 93010

== ENCOUNTER 2019-04-29 11:39 | Outpatient (RCR) | payer MEDICARE, SELFPAY | END 2019-04-30 23:59 | disposition home or self-care (01) | LOC: CR 11:39 | PROVIDERS: PCP Family Medicine; Visit Provider Family Medicine | DX: Z51.89 Encounter for other specified aftercare (principal) | CPT/HCPCS: S9472 ==

== ENCOUNTER 2019-05-27 11:41 | Outpatient (RCR) | payer MEDICARE, SELFPAY | END 2019-05-30 23:59 | disposition home or self-care (01) | LOC: CR 11:41 | PROVIDERS: PCP Family Medicine; Visit Provider Family Medicine | DX: Z51.89 Encounter for other specified aftercare (principal); Z95.1 Presence of aortocoronary bypass graft | CPT/HCPCS: S9472 ==

== ENCOUNTER 2019-06-26 14:23 | Outpatient (RCR) | payer MEDICARE, SELFPAY | END 2019-06-30 23:59 | disposition home or self-care (01) | LOC: CR 14:23 | PROVIDERS: PCP Family Medicine; Visit Provider Family Medicine | DX: Z51.89 Encounter for other specified aftercare (principal); Z95.1 Presence of aortocoronary bypass graft | CPT/HCPCS: S9472 ==

== ENCOUNTER 2019-07-24 14:19 | Outpatient (RCR) | payer MEDICARE, SELFPAY | END 2019-07-31 23:59 | disposition home or self-care (01) | LOC: CR 14:19 | PROVIDERS: PCP Family Medicine; Visit Provider Family Medicine | DX: Z51.89 Encounter for other specified aftercare (principal); Z95.1 Presence of aortocoronary bypass graft | CPT/HCPCS: S9472 ==

== ENCOUNTER 2019-08-01 01:49 | Outpatient (RCR) | payer MEDICARE, SELFPAY | END 2019-08-29 23:59 | disposition home or self-care (01) | LOC: CR 01:49 | PROVIDERS: PCP Family Medicine; Visit Provider Family Medicine | DX: Z95.1 Presence of aortocoronary bypass graft (principal); Z51.89 Encounter for other specified aftercare ==

== ENCOUNTER 2019-08-04 02:34 | Outpatient (CLI) | payer MEDICARE, SELFPAY ==
--- NOTE | 2019-08-04 14:00 | NS.NUTBLAN_ITS ---
Description: 73 year old female with prediabetes (recent A1C: 6.3%), hypercholesterolemia, HTN, s/p Quad Bypass December 2018, Hip replacement pending. Has controlled diabetes for last couple of years with diet and exercise. Reports exercising daily, either exercise bike (30 min) or pool walking (60 min) daily. Current BMI: 33, has lost > 30 lbs in last 10 years but difficulty losing more weight due to hip pain. Diet recall indicates well balanced meals, well spaced. Educated [place] on ways to increase lean protein, low fat dairy, fruit and vegetable intake, reviewed Mediterranean diet principles/DASH diet. Abimbola was receptive to information, written material provided. No follow up planned but provided contact information if needs follow up.
== END 2019-08-04 02:54 ==
PROVIDERS: PCP Family Medicine; Visit Provider Family Medicine
DX: E78.2 Mixed hyperlipidemia (principal); R73.03 Prediabetes; I10 Essential (primary) hypertension; Z71.3 Dietary counseling and surveillance
CPT/HCPCS: 97802

== ENCOUNTER 2019-08-21 11:19 | Outpatient (CLI) | payer MEDICARE, SELFPAY ==
[2019-08-21 11:55] LABS: HCT 40.7 % (36.0-46.0); HGB 13.6 g/dL (12.0-15.5); Mean Corp. HGB Concentration 33.4 g/dL (32.0-36.0); Mean Corpuscular Hemoglobin 30.1 pg (27.0-33.0); Mean Platelet Volume 8.5 fL (8.0-11.0); Platelet Count 299 x1000/uL (130-400); RBC 4.52 m/cumm (4.00-5.20); RBC Distribution Width 15.2 % (11.7-14.6); White Blood Cell Count 5.65 k/cumm (4.4-10.8)
[2019-08-21 12:40] LABS: Anion Gap 8.5 mmol/L (3-11); BUN 20 mg/dL (7-18); CO2 29.5 mmol/L (21.0-32.0); CREATININE 0.65 mg/dL (0.55-1.02); Calcium 8.7 mg/dL (8.5-10.1); Chloride 105 mmol/L (98-107); Glucose 100 mg/dL (74-106); Potassium 3.7 mmol/L (3.5-5.1); Sodium 143 mmol/L (136-145)
== END 2019-08-21 11:39 ==
PROVIDERS: PCP Family Medicine; Visit Provider Family Medicine
DX: I10 Essential (primary) hypertension (principal)
CPT/HCPCS: 36415; 80048; 85027; 85025

== ENCOUNTER 2019-11-13 02:25 | Outpatient (CLI) | payer MEDICARE, SELFPAY ==
[2019-11-13 12:47] LABS: HCT 41.7 % (36.0-46.0); HGB 14.1 g/dL (12.0-15.5); Mean Corp. HGB Concentration 33.8 g/dL (32.0-36.0); Mean Corpuscular Hemoglobin 31.2 pg (27.0-33.0); Mean Corpuscular Volume 92.3 fL (80-95); Mean Platelet Volume 8.8 fL (8.0-11.0); Platelet Count 293 x1000/uL (130-400); RBC 4.52 m/cumm (4.00-5.20); RBC Distribution Width 13.4 % (11.7-14.6); White Blood Cell Count 6.42 k/cumm (4.4-10.8)
[2019-11-13 12:48] LABS: Anion Gap 8.4 mmol/L (3-11); BUN 19 mg/dL (7-18); CO2 24.6 mmol/L (21.0-32.0); CREATININE 0.79 mg/dL (0.55-1.02); Calcium 8.9 mg/dL (8.5-10.1); Chloride 105 mmol/L (98-107); Glucose 131 mg/dL (74-106); Potassium 3.8 mmol/L (3.5-5.1); Sodium 138 mmol/L (136-145)
[2019-11-13 13:05] LABS: Hemoglobin A1C 6.4 % (3.8-5.6)
[2019-11-16 08:34] LABS: COVID-19 RT-PCR Result NEGATIVE
== END 2019-11-13 02:45 ==
PROVIDERS: PCP Family Medicine; Visit Provider Student in an Organized Health Care Education/Training Program
DX: M25.552 Pain in left hip (principal); M16.12 Unilateral primary osteoarthritis, left hip; E11.9 Type 2 diabetes mellitus without complications; Z01.84 Encounter for antibody response examination; Z11.59 Encounter for screening for other viral diseases; Z01.818 Encounter for other preprocedural examination
CPT/HCPCS: 36415; 80048; 85027; 86850; 86900; 86901; U0003; 83036

== ENCOUNTER 2019-11-13 09:21 | Outpatient (CLI) | payer MEDICARE, SELFPAY | END 2019-11-13 09:41 | PROVIDERS: PCP Family Medicine; Visit Provider Student in an Organized Health Care Education/Training Program | DX: R69 Illness, unspecified (principal) | CPT/HCPCS: U0003 ==

== ENCOUNTER 2019-11-18 09:10 | Observation (INO) | payer MEDICARE, SELFPAY ==
[2019-11-18] VITALS (11 sets, daily range): BP systolic 94–157; BP diastolic 42–78; PULSE 61–77; RESP 13–19; TEMP 36.1–37.2; O2SAT 95–99
[2019-11-18] MEDS: Lactated Ringers 1,000 ML 80 ML IV ×2 (10:05→18:23)
[2019-11-18] MEDS: Acetaminophen 500 MG TAB 1000 MG PO ×3 (10:34→19:44)
[2019-11-18] MEDS: Celecoxib 200 MG CAP 400 MG PO (10:34)
--- NOTE | 2019-11-18 10:36 | W.PREOPHP ---
Date of service: 11/18/19 Time of Service: 10:36 Assessment and Plan Assessment and plan (1) Primary osteoarthritis of left hip: Status: Chronic Assessment and plan: Abimbola is a 73-year-old with known arthritis of the left hip. She has failed conservative options. As documented last year, she desired to proceed with a hip replacement. I reviewed the risk of the procedure to include bleeding, infection, pain, stiffness, leg with inequality, fracture, damage nerves and vessels, damage to muscle tendons, blood clot. Despite these risk, she elects to proceed. She reports no acute medical changes. Her history and physical by her primary care provider, Dr. Alonzo, was reviewed. There are no changes to this document. Please refer to it for complete history and physical for medical clearance. We will proceed with hip replacement on the left side and use aspirin for DVT prophylaxis postoperatively. History of Present Illness History of Present Illness Chief Complaint: Left hip arthritis Narrative: Abimbola is a 73-year-old who is status post right hip replacement. She did very well from this. Unfortunate, over the last year or so she has had a gradual decline of her function and pain due to her left hip. She has been diagnosed with arthritis in the past. She was planned undergo a hip placement surgery last year but unfortunately developed some chest symptoms which resulted in bypass surgery. She has been cleared by her belt operator and her primary care provider and looks forward to proceeding with left hip replacement. She had her COVID-19 test which was negative and she quarantined at home between the COVID test and today's date. She denies chest pain, shortness of breath, palpitations. She has no other significant changes in her health profile or her hip symptoms. She had a primary care provider perform her history and physical. 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 Wrist fracture, right (Acute) Surgical History Biopsy of breast (12/04/16) right breast- benign Colonoscopy - IV Sedation EGD - IV Sedation 2009-William's 2012 and 2014-nl H/O local excision of skin lesion (Acute) History of cholecystectomy (Chronic) History of heart surgery (Chronic) PT states CABG x 4 01/2019 [facility] History of hysterectomy (Chronic) S/P lumpectomy, left breast (Acute) Total replacement of hip right Family History (Updated 01/08/19 @ 14:20 by Billie Uribe RN) Other Diabetes Hypertension Lung cancer Social History Smoking/Tobacco Use Status: Never Drug use: Never Do you feel safe in your relationship?: Yes Meds Home Medications and Allergies Home Medications Medication Instructions Recorded Confirmed Type calcium carbonate-vitamin D3 1 tab PO BID 09/01/12 11/18/19 History multivitamin [Multi-Day] 1 tab PO DAILY 09/01/12 11/18/19 History Citrucel Sugar Free 1 tbs PO DAILY 08/16/16 11/18/19 History atorvastatin 40 mg PO .QPM 08/16/16 11/18/19 History pantoprazole 20 mg PO DAILY 08/16/16 11/18/19 History aspirin [Aspir-81] 81 mg PO DAILY tab-cap 09/11/17 11/18/19 History tamoxifen 20 mg PO DAILY tab-cap 09/11/17 11/18/19 History acetaminophen 1,000 mg PO Q8H PRN #60 cap 06/25/18 11/18/19 Rx acetaminophen 650 mg PO Q6H PRN 06/25/18 11/18/19 History lisinopril 40 mg tablet 40 mg PO DAILY tab 01/08/19 11/18/19 History amlodipine 10 mg PO BID 11/16/19 11/18/19 History furosemide 20 mg PO DAILY 11/16/19 11/16/19 History metoprolol tartrate 25 mg PO DAILY 11/16/19 11/18/19 History potassium chloride 10 meq PO DAILY 11/16/19 11/18/19 History Allergies Allergy/AdvReac Type Severity Reaction Status Date / Time Penicillins Allergy Unknown Pt unaware Unverified 11/18/19 09:26 of allery or response Exam Narrative Exam Narrative: Comfortably sitting in the exam chair. No acute distress. Alert on x3. Breathing comfortably without notable distress. Evaluation the left hip showed no skin changes in the folds. No signs of infection and no swelling. No pain to palpation around the hip. However significant pain with hip range of motion. Limited internal rotation. Leg lengths appear equal. Sensation intact light touch over the lateral femoral cutaneous nerve femoral nerve distribution. Palpable DP and PT pulse. Results Last Vital Signs Temp 36.6 C 11/18/19 09:53 Pulse 77 11/18/19 09:53 Resp 18 11/18/19 09:53 BP 137/78 11/18/19 09:53 Pulse Ox 97 11/18/19 09:53
[2019-11-18] MEDS: ceFAZolin 2 GM/50 ML BAG IVPB (13:20)
[2019-11-18] MEDS: Ketorolac 30 MG/ML VIAL (14:30)
[2019-11-18] MEDS: Bupivacaine 0.25% Pres-Free 30 ML VIAL (14:30)
--- NOTE | 2019-11-18 14:32 | DI.RAD_ITS ---
EXAM: XR HIP LT IN OR CLINICAL HISTORY: OSTEOARTHTITIS LEFT HIP TECHNIQUE: 2D and realtime digital imaging was performed. CONTRAST MATERIAL: Refer to procedure report. COMPARISON: No exams were available for comparison FINDINGS: Fluoroscopy was provided for Dr. Encinas during the performance of a left total hip replacement. P agustina refer to the procedure report for complete details. Fluoro time: 38.3 seconds IMPRESSION: RADIATION DOSE DELIVERED:
--- NOTE | 2019-11-18 14:49 | W.PM.OP ---
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 Depuy [place] Acetabular Component, 54 mm 2. Depuy Acetabular Liner, 54 x 36 mm 3. Depuy Corail coxa vara femoral Stem, Size 13 4. Depuy Altrx Ceramic Femoral Head, Size 36+1.5 mm Indications: I have seen Abimbola in clinic for symptoms of hip arthritis, confirmed with radiographic findings. [place] has exhausted nonoperative methods and was having significant limitations in daily function and desired better function and less pain. I discussed the technical details of a hip replacement. I explained the risks of the procedure to include, but not limited to, bleeding, infection, pain, stiffness, fracture, damage to nerves and vessels, damage to muscles and tendons, loosening, instability, leg length inequality, need for repeat procedure, blood clot and cardiopulmonary demise. Despite these risks, she elected to proceed. Findings: There was significant signs of arthritis throughout the hip. There is significant osteophyte within the floor the acetabulum and laterally as well as complete loss of cartilage over the superior femoral head. Procedure Description: Abimbola was greeted in the preoperative holding area where the correct side was identified and marked. The consent was reviewed with the patient and signed. The history and physical was updated. All questions were answered. Abimbola was taken back to the operating room. A spinal anesthestic was then administered. The patient was placed into the supine position on the operating room table. The patient was then positioned onto the ARCH table. Both feet were wrapped with Webrill cotton wrap along with Coban. The feet were placed in specialized boots for the ARCH table, well seated within the boot and secured. SCDs were applied. The patient was then slid down onto a peroneal post and the nonoperative leg was secured in a leg duong attached to the table. The operative side was placed into the ARCH table attachment and bed height and positioning was secured. A preoperative AP pelvis was obtained to serve as a reference for determining leg lengths. Prophylactic antibiotics in the form of cefazolin were administered. 1g of Tranxemic Acid was given intravenously within 30 minutes of incision. The left leg was then prepped with Chloraprep and draped in a standard fashion. A second prep with Chloraprep was performed prior to placement of a shower-curtain type drape with Iodine impregnated skin protection. A timeout to confirm correct identity, side and site, procedure, allergies, anesthesia, and medical concerns was performed. An obliquely oriented incision was made starting lateral to the ASIS and running distal over the Tensor Fascia Nelly (TFL) muscle belly toward the fibular head, approximately 10cm. The skin and soft tissue was dissected sharply, through Caleb?s fascia, and to the fascia of the TFL. With the fascia and superior border of the IT band identified, the fascia was incised with a new knife just above any perforators from the IT band. The TFL muscle belly was bluntly dissected away from the fascia and moved laterally. The fat between TFL and rectus was identified to ensure the dissection was not within the TFL. Blunt dissection created space between abductors and the capsule and retractor was placed over the lateral femoral neck. The fibers of the rectus femoris tendon were identified and these were freed from the anterior capsule. A second cobra retractor was placed around the medial femoral neck. The TFL was further retracted laterally to show the deep fascia. Careful dissection through this layer identified three main crossing vessels of the lateral femoral circumflex. These were cauterized in multiple locations and then cut without any noticeable bleeding. The TFL was further released bluntly from the deep fascia to expose anterior hip capsule and fat the Farhan orthopaedic retractor was then placed beneath the TFL and against sartorius and medial soft tissues to protect and retract the soft tissues. A T-capsulotomy was then performed starting at the superior lateral acetabulum and moving distally to the intertrochanteric ridge. These capsular flaps were tagged with a No. 1 Ethibond and elevated from within. The capsular flaps were released to the shoulder of the lateral neck and to the lesser trochanter to give excellent visualization of the proximal femur. A neck osteotomy was performed using an oscillating saw based on preoperative templates. This cut started in the shoulder and of the lateral neck and exited medially. The saw was at all times directed medially to avoid injury to the greater trochanter. 6cm of traction was applied to the leg and the osteotomy opened. The femoral head was removed with a corkscrew, making sure to protect the TFL on its exit. This was measured on the back table to determing the starting reamer size. Portions of the rectus obscuring visualization were minimally elevated off the superior acetabulum. An anterior retractor was placed over the anterior wall between capsule and labrum and attached to the Gripper retraction system. A posterior retractor was placed similarly. This provided excellent visualization. The contents of the cotyloid fossa were removed with electrocautery and the labrum was removed with a knife. There was a notable floor osteophyte. There was significant chondromalacia of the superior acetabulum. Acetabular reaming began with a 48mm reamer. This first reaming was directed anterior to posterior and medial to get down to the true floor. This was inspected and reamed until the true floor was reached. The anterior retractor was then released and entry and exit was provided by traction on the capsular flaps. I then reamed sequentially up to a 54mm reamer where good fit was obtained. The larger reamers were oriented based on anatomical reference of the anterior and lateral lee to ensure proper abduction and anteversion. Positioning and size was confirmed with the fluoroscopy. A 54mm Depuy [place] acetabular component was selected. The acetabulum was reamed around the periphery with the selected acetabular size to prevent a rim fit. The deep tissues were irrigated. The acetabular component was then impacted in a position of about 40-45 degrees of abduction and 15-20 degrees of anteversion, using the patient?s anatomy as the ultimate landmark. Fluoroscopy was used to confirm this. There was excellent coding consultant of the acetabular component and the inserting handle was removed. The acetabular liner, Depuy [id number] polyethylene liner, was inserted and lined up with the tines of the acetabular component. There was no soft tissue interposition. The liner was then impacted into position and confirmed to be well-seated. A portion of the justin-articular cocktail was then injected around the acetabulum into the capsule and periosteum. This cocktail consisted of 50cc of 0.25% Bupivicaine and 20cc of Exparel, expanded to a total of 120cc. Traction was released from the femur. The leg was rotated to 120 degrees. Any remaining medial capsule was released until the lesser trochanter was easily palpable. A Yanes retractor was placed medially. The lateral capsule was further released into the shoulder to allow access to the greater trochanter. A Yanes retractor was placed over the greater trochanter which allowed the trochanter to flip in front of the capsule for excellent exposure. The leg was brought down into maximal extension and 20 degrees of adduction while ensuring there was no impingement on the acetabulum. Any remnant capsule within the trochanter was released. Piriformis and obturator externis were identified and protected. There was excellent access to the proximal femur. The lateral neck remnant was removed with a rongeur. A blunt canal probe was used to identify the canal and trajectory for later broaching. A box osteotome initiated the broach course. A small curved rasp and a curved curette were used to work laterally. Broaching then began with a size 8 Corail broach. This was inserted manually around the trochanter and into the canal before mallet blows. The broach was seated to a few millimeters below the cut level based on the neck cut and the preoperative template. Sequential broaching was continued with the SonarMedse pneumatic broaching device until a tight fit was obtained with good rotational control of the femur. A trial coxa vara neck was inserted along with a 1.5 trial head. The leg was brought out of extension and adduction and then reduced with traction and internal rotation. The leg was stable anteriorly in a position of 30 degrees of extension and 90 degrees of external rotation. Fluoroscopy was used to ensure there was no fracture and the stem was seated well. Leg lengths were checked with an AP pelvis and pelvic reference points. Ram Power navigation system was used to confirm appropriate positioning and leg length and offset. Once content with the desired offset and leg lengths, the leg was brought back into extension, external rotation and adduction. The periosteum and surrounding tissue was injected with remaining portion of the justin-articular cocktail. The proximal femur was irrigated as well as the deep tissues. The Depuy Corail coxa vara stem, size 13, was then manually inserted into the proximal femur making sure to control rotation. It was then malleted into position with light blows, giving breaks to allow bone expansion and decrease risk of fracture. The selected Depuy Altrx Ceramic Head, size 36+1.5 mm, was then placed onto the clean and dry trunnion and secured with impaction onto the tapered fit. The leg was brought back out of extension and adduction and reduced with traction and internal rotation. Stability was confirmed with no shuck at 90 degrees of external rotation and 30 degrees of extension. No impingement through range of motion arc. Final x-ray images were obtained with fluoroscopy to confirm adequate positioning and no intraoperative fracture. The deep tissues were thoroughly irrigated with Irrisept chlorhexadine solution. The second dose of TXA 1g was administered intravenously. The capsule was then reapproximated with the previously placed Ethibond sutures. The TFL fascia was finally closed with a No. 2 Stratafix, barbed suture. Deep tissues were then reapproximated with 0 Vicryl and a running 2-0 Vicryl. The skin was closed with a running 4-0 Monocryl in a subcuticular fashion. This was reinforced with skin glue. A Mepilex silver dressing was applied. At the end of the case, all counts were correct. Abimbola was transferred to the hospital bed without difficulty and suffering no apparent complication. [place] has a good prognosis. Physical therapy will start today and without restrictions, weight-bearing as tolerated. Aspirin 81mg BID will be used for DVT prophylaxis.
--- NOTE | 2019-11-18 16:53 | IN_ITS ---
Date of service: 11/18/19 Time of Service: 16:53 PT Notes Visit Reasons: (L) HIP DJD Physical Therapy Inpatient Initial Evaluation Date: 11/18/2019 Referring Doctor: Carlos Encinas MD PT Orders: PT CONSULT: Status post Ortho surgery. Status post L anterior SILVIA. Precautions: Fall. Standard. WBAT on left LE. Patient Profile/Admitting Diagnosis: Abimbola is a 73-year-old female with primary unilateral osteoarthritis of right hip and is status post left anterior total hip arthroplasty on postoperative day 0. PMHX: Medical History (Updated 11/18/19 @ 09:35 by Dagmar Chavez) Adenomatous colon polyp Back pain Barretts esophagus Breast CA (Chronic) left breast Controlled diabetes mellitus without long-term current use of insulin Diverticulosis Gastric hemorrhage History of stroke Hyperlipidemia Hypertension Intracranial hemorrhage, spontaneous intraparenchymal, associated with hypertension, acute 1997 Obstructive sleep apnea Osteoarthritis Pancreatitis 1982 Sciatica of left side 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 Wrist fracture, right (Acute) Surgical History Biopsy of breast (12/04/16) right breast- benign Colonoscopy - IV Sedation EGD - IV Sedation 2009-William's 2012 and 2014-nl H/O local excision of skin lesion (Acute) History of cholecystectomy (Chronic) History of heart surgery (Chronic) Pt states CABG x 4 01/2019 [facility] [place] History of hysterectomy (Chronic) S/P lumpectomy, left breast (Acute) Total replacement of hip right Social History/Home Situation: Abimbola lives alone in a private home with 4 steps to enter with rails on both sides. She is independent with all aspects of ADLs without the need for an assistive ambulatory device nor adaptive equipment prior to surgery. 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 Equipment Owned/DME: Walk-in shower, grab bars, raised toilet seat, front wheeled walker, single-point cane. Subjective: Patient reports that she feels the right hip but she does not have any pain at time of evaluation. She describes the sensation in the hip as being achy but nothing that limited her ability to move during mobility assessment. She states that her daughter will stay with her while she transitions safely back to her house. She hopes to go home as soon as she is medically cleared to do so. Patient denies headache, dizziness, and chest pain throughout PT consult. Objective: General Observation: Bilateral TEDS on. IV in the left UE. Mental Status: Alert and oriented x4 Pain: 1/10 on the right hip ROM: Right Upper Extremity: Shoulder Flexion WFL. Shoulder abduction WFL. Elbow flexion WFL. Wrist flexion WFL. Opening and closing of hand WFL. Left Upper Extremity: Shoulder Flexion WFL. Shoulder abduction WFL. Elbow flexion WFL. Wrist flexion WFL. Opening and closing of hand WFL. Right Lower Extremity: Hip flexion WFL. Hip abduction WFL. Knee flexion WFL. Ankle dorsiflexion WFL. Ankle plantarflexion WFL. Left Lower Extremity: Hip flexion WFL. Hip abduction WFL. Knee flexion WFL. Ankle dorsiflexion WFL. Ankle plantarflexion WFL. Strength: Right Upper Extremity: Shoulder flexors 4/5. Shoulder abductors 4/5. Elbow flexors 5/5. Elbow extensors 5/5. Wheel Worker strong. Left Upper Extremity: Shoulder flexors 4/5. Shoulder abductors 4/5. Elbow flexors 5/5. Elbow extensors 5/5. Wheel Worker strong. Right Lower Extremity: Hip flexors 5/5. Hip abductors 5/5. Knee flexors 5/5. Knee extensors 5/5. Ankle dorsiflexors 5/5. Ankle plantarflexors 5/5. Left Lower Extremity:Hip flexors 4/5. Hip abductors 4/5. Knee flexors 4/5. Knee extensors 4/5. Ankle dorsiflexors 5/5. Ankle plantarflexors 5/5. Sensation: Intact as to pain and pressure on bilateral lower extremities. Bed Mobility/Transfers: Sit to stand contact-guard assist with minimal verbal cueing needed for hand placement, requires use of front wheeled walker Stand to sit contact-guard assist with minimal verbal cueing needed for hand placement, requires use of front wheeled walker Bed to chair contact-guard assist with minimal verbal cueing needed for hand placement, requires use of front wheeled walker Chair to bed contact-guard assist with minimal verbal cueing needed for hand placement, requires use of front wheeled walker Gait: Patient tolerated level surface ambulation of 120 feet using front wheeled walker with contact-guard assist and IV pole management. Reciprocal swing through gait pattern. Decreased jennifre. Patient did not report any increase in level of pain or discomfort throughout activity. Balance: Static Sitting: Normal Dynamic Sitting: Normal Static Standing: Fair Dynamic Standing: Fair Special Tests: Mobility Limitations Standardized Measure [facility] AM-PAC 6 clicks Basic Mobility Inpatient Short Form: Raw Score: 18 CMS Score: 47% deficit Informed Consent/Education: Patient instructed in purpose of PT consult and plan of care. Assessment: Abimbola demonstrates the need for assistive ambulatory device for all mobility ADL performance for safety, impairment in balance, unsteadiness on feet, and limitation in strength strength on the right hip due to postoperative status. Patient presents with clinical signs and symptoms consistent with current/admitting diagnoses that have resulted to mobility limitations, gait instability, generalized weakness, and impairment of motor control as demonstrated by the following impairment level findings: 1. Decreased strength to right hip major muscle groups 2. Impaired standing balance 3. Impaired activity tolerance Impairments are contributing to the following functional limitations: 1. Inability to safely ambulate without assistive device and physical assistance 2. Increase completion time for mobility ADL performance 3. Increased fall risk 4 11274 moderate. Inability to negotiate steps alone safely Patient is assessed as a 10517 moderate complexity based on the following: History: Shaye is a 73-year-old female with impairment level findings, functional limitations, and past medical history as listed above Examination: Demonstrable impairment in strength, balance, and mobility level with underlying impairments and functional limitations as documented above Presentation: Evolving Decision Makin moderate complexity Goals: Goals X 3 days 1. Supine-Sit independent 2. Sit-Supine independent 3. Sit-Stand independent 4. Stand-Sit independent 5. Bed-Chair independent 6. Chair-Bed independent 7. Independent gait on level surface with use of least restrictive device for at least 300 feet without report of pain nor dyspnea 8. Independent stair negotiation while holding onto bilateral rails for at least 10 steps without report of pain nor dyspnea 9. Independent with home exercise program 10. Good static and dynamic standing balance/tolerance Plan of Care/Treatment Plan: 1-2x/day, 7 days/week x 1 week. Initiate Physical Therapy intervention for strengthening, bed mobility, transfers, gait, stairs, balance training, use of assistive device. DISCHARGE RECOMMENDATIONS: Home when medically cleared. No equipment needs at this time. May benefit from skilled physical therapy services according to orthopedic surgeon's timeline recommendations. Patient will be educated and trained on home exercise program per TKA exercise protocol in preparation for outpatient physical therapy services. TREATMENT CODE/TIME: 08434 x 29 minutes beginning at 16:53 PM. Thank you very much for this referral. Jeannie Arthur PT, DPT, CLT [facility] [place], [place]
--- NOTE | 2019-11-18 17:36 | NUR.NOTE ---
Nursing Note: 1540H Patient came up from day surgery. Admitted to MS floor. Transferred to 207 safely. VS stable. Dressing to L hip area CDI. Patient has 2/10 pain
[2019-11-18] MEDS: Calcium 600mg/Vit D 200U TAB 1 TAB PO (19:43)
[2019-11-18] MEDS: Aspirin E.C. 81 MG TABEC PO (19:43)
[2019-11-18] MEDS: Atorvastatin 40 MG TAB PO (19:43)
[2019-11-18] MEDS: amLODIPine 10 MG TAB PO (19:44)
[2019-11-18] MEDS: Ibuprofen 600 MG TAB PO (19:44)
[2019-11-18] MEDS: ceFAZolin 1 GM/50 ML BAG IVPB (19:46)
[2019-11-19] MEDS: ceFAZolin 1 GM/50 ML BAG IVPB (03:10)
[2019-11-19 03:27] VITALS: BP 112/61; PULSE 70; RESP 19; TEMP 36.7; O2SAT 97
--- NOTE | 2019-11-19 07:15 | W.PM.DS.N ---
Date of service: 11/19/19 Time of Service: 07:15 DS: Diagnosis Discharge Diagnosis (1) Primary osteoarthritis of left hip: Status: Chronic Discharge Plan Disposition Patient Disposition: HOME Condition: Good Discharge Details Reason For Visit: (L) HIP DJD Admit Date/Time: 11/18/19 09:10 Admit Provider: Carlos Encinas Attending Provider: Carlos Encinas Primary Care Provider: Angie Alonzo [facility] Course Hospital Course: Patient was admitted to the medical/surgical floor following the procedure. The surgery was tolerated well without any notable medical, surgical, or anesthetic complications. Mobilization began postoperatively. Vitals were stable. Physical therapy worked with the patient and was cleared for discharge home. No acute medical issues. Pain was controlled on oral regimen. Home Meds and New Rx's Prescriptions: New aspirin 81 mg tablet,delayed release (DR/EC) 81 mg PO BID Qty: 60 RF: 0 acetaminophen 500 mg tablet 1,000 mg PO Q8H PRN (Reason: pain) Qty: 90 RF: 3 ibuprofen 600 mg tablet 600 mg PO TID PRNQty: 90 RF: 3 oxycodone 5 mg tablet 2.5 - 5 mg PO Q6H PRN (Reason: Pain) Qty: 8 RF: 0 Continued multivitamin [Multi-Day] 1 EACH tablet 1 tab PO DAILY RF: 0 calcium carbonate-vitamin D3 1 EACH tablet 1 tab PO BID RF: 0 lisinopril 40 mg tablet 40 mg PO DAILY RF: 0 atorvastatin 40 MG tablet 40 mg PO .QPM RF: 0 pantoprazole 20 MG tablet,delayed release (DR/EC) 20 mg PO DAILY RF: 0 Citrucel Sugar Free 1,191 GM powder 1 tbs PO DAILY RF: 0 potassium chloride 10 mEq Tablet Extended Release 10 meq PO DAILY RF: 0 amlodipine 10 mg Tablet 10 mg PO BID RF: 0 furosemide 20 mg Tablet 20 mg PO DAILY RF: 0 metoprolol tartrate 25 mg Tablet 25 mg PO DAILY RF: 0 Discontinued aspirin [Aspir-81] 81 MG tablet,delayed release (DR/EC) 81 mg PO DAILY RF: 0 tamoxifen 20 MG tablet 20 mg PO DAILY RF: 0 acetaminophen 325 mg Tablet 650 mg PO Q6H PRNRF: 0 acetaminophen 500 mg capsule 1,000 mg PO Q8H PRN (Reason: pain) Qty: 60 RF: 0 Discharge Instructions Additional Instructions: Dr. Encinas's Total Hip Discharge Instructions Activity: The most important activity is to walk. You should try to take short walks a few times a day. You have no restrictions on movement or positioning, but do not try to force what you do. You will find some stiffness and weakness with hip flexion (lifting your knee). Do not try to strengthen this too early, continue to practice walking and stairs and this will come. - Outpatient physical therapy can be helpful to help return you to a normal gait and improve your flexibility and strength. This can start around 2 weeks. For most patients, it?s not necessary. Usually this is determined at the time of discharge or at the first post-operative visit. - You should wear the EULOGIO hose on both legs for 2 weeks. You may remove those at night. These prevent blood pooling and swelling. Dressing: Keep the surgical dressing in place for at least one week, although it may stay in place untill follow-up. It may get wet after 3 days but avoid soaking the dressing. If it gets wet, just lightly pat dry. Most people prefer to cover the dressing with some ClingWrap, Saran Wrap, to keep it dry. After the first week it may be removed if desired and then replaced with light gauze and tape or nothing. It is important to always keep some gauze or the dressing between skin folds, especially when you are sitting, so the incision is not folded over on itself at the belly fold. Medications: - You should take Tylenol and an anti-inflammatory Ibuprofen as your primary pain control medications - You have been prescribed a stronger pain medication Oxycodone for breakthrough pain, take as needed as prescribed. - You will continue your stomach acid reduction agent Pantoprozole to help reduce stomach acid and reflux. - You will be taking Aspirin 81mg twice a day for DVT prevention unless instructed otherwise. - If you have constipation you should take Colace or Miralax (both [id number]). It takes most people 3-4 days to have a bowel movement. Follow-up: 2 weeks. If you have any acute concerns or questions, please do not hesitate to contact the office at [phone]. You may contact Dr. Encinas with any questions after hours through the hospital at [phone] or on his cell phone at [phone]. Referrals: [facility] [Provider Group] - 12/03/19 (s/p L SILVIA) Carlos Encinas MD [ [facility] STAFF PHYSICIAN] - Activity:: Activity as Tolerated Equipment/Supplies:: Walker Diet:: As Tolerated Discharge Orders Discharge Orders: Discharge Order (Routine); Ordered 11/19/19 Ordered By: Carlos Encinas DS: Summary Status at Discharge Functional status at discharge: uses cane/walker Overall status at discharge: patient is progressing back to baseline Mental Status: mental status grossly normal Speech and Movement: speech and movement normal Mood: congruent mood Affect: normal affect Exam Psych Mental Status: mental status grossly normal Speech and Movement: speech and movement normal Mood: congruent mood Affect: normal affect DS: Data Vitals/I&O Vitals and I&O: Vital Signs Temperature 36.7 C 11/19/19 03:27 Temperature Source Tympanic 11/19/19 03:27 Pulse 70 11/19/19 03:27 Pulse Rhythm Regular 11/19/19 02:17 Respiratory Rate 19 11/19/19 03:27 Respiratory Effort Non-Labored 11/19/19 02:17 Respiratory Depth Normal 11/19/19 02:17 Respiratory Pattern Normal 11/19/19 02:17 Blood Pressure 112/61 11/19/19 03:27 Pulse Oximetry 97 11/19/19 03:27 Oxygen Delivery Method Room Air 11/19/19 03:27 Oxygen Flow Rate 0 11/19/19 03:27 Pain Level 1 11/18/19 20:00 Intake & Output 11/18/19 11/18/19 11/19/19 11:59 23:59 11:59 Intake Total 1909 / 1909 Output Total 550 / 550 900 / 900 Balance 1359 / 1359 -900 / -900 Weight 95.1 kg Intake: IV 1094 / 1094 Oral 815 / 815 Output: Urine 200 / 200 900 / 900 Estimated Blood Loss 350 / 350 Other: Urine Color Yellow Yellow Urine Appearance Clear Clear Urine Odor Normal None Emesis Description None Voiding Methods Toilet Toilet [facility] Medical History Adenomatous colon polyp Back pain Barretts esophagus Breast CA (Chronic) lt breast Controlled diabetes mellitus without long-term current use of insulin Diverticulosis Gastric hemorrhage History of stroke Hyperlipidemia Hypertension Intracranial hemorrhage, spontaneous intraparenchymal, associated with hypertension, acute 1997 Obstructive sleep apnea Osteoarthritis Pancreatitis 1982 Sciatica of left side 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 Wrist fracture, right (Acute) Surgical History Biopsy of breast (12/04/16) right breast- benign Colonoscopy - IV Sedation EGD - IV Sedation 2008-William's 2012 and 2014-nl H/O local excision of skin lesion (Acute) History of cholecystectomy (Chronic) History of heart surgery (Chronic) PT states CABG x 4 01/2019 [facility] [place] History of hysterectomy (Chronic) S/P lumpectomy, left breast (Acute) Total replacement of hip right Family History Other Diabetes Hypertension Lung cancer Social History Smoking/Tobacco Use Status: Never Drug use: Never Do you feel safe in your relationship?: Yes
[2019-11-19 07:35] VITALS: BP 123/70; PULSE 69; RESP 18; TEMP 36.9; O2SAT 94
[2019-11-19] MEDS: Multivitamin TAB 1 TAB PO (07:38)
[2019-11-19] MEDS: amLODIPine 10 MG TAB PO (07:38)
[2019-11-19] MEDS: Ibuprofen 600 MG TAB PO (07:38)
[2019-11-19] MEDS: Acetaminophen 500 MG TAB 1000 MG PO (07:38)
[2019-11-19] MEDS: Aspirin E.C. 81 MG TABEC PO (07:38)
[2019-11-19] MEDS: Calcium 600mg/Vit D 200U TAB 1 TAB PO (07:39)
[2019-11-19] MEDS: Potassium Chloride 10 MEQ TABCR PO (07:39)
[2019-11-19] MEDS: Metoprolol 25 MG TAB PO (07:39)
[2019-11-19] MEDS: Pantoprazole 20 MG TABCR PO (07:39)
[2019-11-19] MEDS: Lisinopril 20 MG TAB 40 MG PO (07:39)
--- NOTE | 2019-11-19 08:14 | INITIAL_ITS ---
- If Service Date Differs Date of service: 11/19/19 Time of Service: 08:14 Care Management Initial Assess REASON FOR HOSPITALIZATION:: primary osteoarthritis left hip PAST MEDICAL HISTORY/PAST SURGICAL HISTORY:: Medical History (Updated 11/18/19 @ 09:35 by Dagmar Chavez). Adenomatous colon polyp. Back pain. Barretts esophagus. Breast CA (Chronic). lt breast. Controlled diabetes mellitus without long-term current use of insulin. Diverticulosis. Gastric hemorrhage. History of stroke. Hyperlipidemia. Hypertension. Intracranial hemorrhage, spontaneous intraparenchymal, associated with hypertension, acute. 1997. Obstructive sleep apnea. Osteoarthritis. Pancreatitis. 1982. Sciatica of left side. 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 Wrist fracture, right (Acute). Surgical History . Biopsy of breast (12/04/16). right breast- benign. Colonoscopy - IV Sedation. EGD - IV Sedation. 2008-William's. 2012 and 2013-nl. H/O local excision of skin lesion (Acute). History of cholecystectomy (Chronic). History of heart surgery (Chronic). PT states CABG x 4 01/2019 [facility] [place]. History of hysterectomy (Chronic). S/P lumpectomy, left breast (Acute). Total replacement of hip. right ADVANCE DIRECTIVES:: None on file CODE STATUS:: Full Code INSURANCE COVERAGE / FINANCIAL ISSUES:: Medicare. AARP PRIMARY CARE PHYSICIAN:: Angie Alonzo POTENTIAL DISCHARGE NEEDS:: Followup with surgeon and discharge plan of care PATIENT/FAMILY EDUCATION NEEDS:: Discharge plan, limitations, follow up plan, Ask Me Three TRANSPORTATION:: via private vehicle with family
--- NOTE | 2019-11-19 11:46 | PT.INDS ---
Date of service: 11/19/19 Time of Service: 08:33 PT Notes Visit Reasons: (L) HIP DJD Inpatient Physical Therapy Discharge Summary Dates: 11/19/2019 Dates of Service: 11/18/2019 and 11/19/2019 Referring Doctor: Carlos Encinas MD PT Orders: PT CONSULT: Status post Ortho surgery. Status post L anterior SILVIA. Precautions: Fall. Standard. WBAT on left LE. Patient Profile/Admitting Diagnosis: Abimbola is a 73-year-old female with primary unilateral osteoarthritis of right hip and is status post left anterior total hip arthroplasty on postoperative day 0. 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 She is independent with all aspects of ADLs without the need for an assistive ambulatory device nor adaptive equipment prior to surgery. 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 Equipment Owned/DME: Walk-in shower, grab bars, raised toilet seat, front wheeled walker, single-point cane. Subjective: Patient reported some residual stiffness on the right hip that subsided with ambulation activity. Patient is looking forward to going home today. She is happy with receiving a set of exercises that she can do at home while recovering. She states that her daughter and her granddaughter will both be available at night in order to check in on her as needed. Objective: General Observation: Bilateral TEDS on. IV in the left UE. Mental Status: Alert and oriented x4 Pain: 1/10 on the right hip ROM: Right Upper Extremity: Shoulder Flexion WFL. Shoulder abduction WFL. Elbow flexion WFL. Wrist flexion WFL. Opening and closing of hand WFL. Left Upper Extremity: Shoulder Flexion WFL. Shoulder abduction WFL. Elbow flexion WFL. Wrist flexion WFL. Opening and closing of hand WFL. Right Lower Extremity: Hip flexion WFL. Hip abduction WFL. Knee flexion WFL. Ankle dorsiflexion WFL. Ankle plantarflexion WFL. Left Lower Extremity: Hip flexion WFL. Hip abduction WFL. Knee flexion WFL. Ankle dorsiflexion WFL. Ankle plantarflexion WFL. Strength: Right Upper Extremity: Shoulder flexors 4/5. Shoulder abductors 4/5. Elbow flexors 5/5. Elbow extensors 5/5. Paint Roller Cover Machine Setter strong. Left Upper Extremity: Shoulder flexors 4/5. Shoulder abductors 4/5. Elbow flexors 5/5. Elbow extensors 5/5. Paint Roller Cover Machine Setter strong. Right Lower Extremity: Hip flexors 5/5. Hip abductors 5/5. Knee flexors 5/5. Knee extensors 5/5. Ankle dorsiflexors 5/5. Ankle plantarflexors 5/5. Left Lower Extremity:Hip flexors 4/5. Hip abductors 4/5. Knee flexors 4/5. Knee extensors 4/5. Ankle dorsiflexors 5/5. Ankle plantarflexors 5/5. Sensation: Intact as to pain and pressure on bilateral lower extremities. Bed Mobility/Transfers: Sit to stand independent, requires use of front wheeled walker Stand to sit independent, requires use of front wheeled walker Bed to chair independent, requires use of front wheeled walker Chair to bed independent, requires use of front wheeled walkerr Gait: Patient tolerated level surface ambulation of 200 feet x 2 using front wheeled walker with supervision assist. Reciprocal swing through gait pattern. Increasing jennifer. Patient did not report any increase in level of pain or discomfort throughout activity. Patient also tolerated up-and-down twelve 4 inch steps and eight 6 inch steps while holding onto bilateral rails using step over step pattern with only supervision assist Balance: Static Sitting: Normal Dynamic Sitting: Normal Static Standing: Fair Dynamic Standing: Fair Assessment: Abimbola demonstrate significant improvement during this episode of care. She goes home on postoperative day 1 with support of daughter and granddaughter as needed. Abimbola has all the equipment she needs at home. She is also provided with a folder containing exercises that she may be able to do at home for the next 2 weeks. Patient continues to present with clinical signs and symptoms consistent with current/admitting diagnoses that have resulted to mobility limitations, gait instability, generalized weakness, and impairment of motor control as demonstrated by the following impairment level findings: 1. Decreased strength to right hip major muscle groups 2. Impaired standing balance 3. Impaired activity tolerance Impairments are continuing to contribute to the following functional limitations: 1. Inability to safely ambulate without assistive device and physical assistance 2. Increase completion time for mobility ADL performance 3. Increased fall risk 4. Inability to negotiate steps alone safely Goals: Goals X 3 days 1. Supine-Sit independent MET 2. Sit-Supine independent MET 3. Sit-Stand independent MET 4. Stand-Sit independent MET 5. Bed-Chair independent MET 6. Chair-Bed independent MET 7. Independent gait on level surface with use of least restrictive device for at least 300 feet without report of pain nor dyspnea NOT MET 8. Independent stair negotiation while holding onto bilateral rails for at least 10 steps without report of pain nor dyspnea NOT MET 9. Independent with home exercise program MET 10. Good static and dynamic standing balance/tolerance NOT MET DISCHARGE RECOMMENDATIONS: Home when medically cleared. No equipment needs at this time. May benefit from skilled physical therapy services according to orthopedic surgeon's timeline recommendations. Patient will be educated and trained on home exercise program per TKA exercise protocol in preparation for outpatient physical therapy services. TREATMENT CODE/TIME: 52461 x 24 minutes beginning at 8:33 AM. Thank you very much for this referral. Jeannie Arthur PT, DPT, CLT [facility] [place], [place]
== END 2019-11-19 09:58 | disposition home or self-care (01) ==
LOC: PDS 16:23 → MS 16:23
PROVIDERS: Admitting Provider Student in an Organized Health Care Education/Training Program; PCP Family Medicine; Visit Provider Student in an Organized Health Care Education/Training Program
PROC: BQ10ZZZ Fluoroscopy of Right Hip (ICD-10-PCS; CPT 27130; principal; 2019-11-18 13:45)
DX: M16.12 Unilateral primary osteoarthritis, left hip (principal); M25.562 Pain in left knee; Z96.642 Presence of left artificial hip joint; E11.9 Type 2 diabetes mellitus without complications; E78.5 Hyperlipidemia, unspecified; I10 Essential (primary) hypertension; G47.33 Obstructive sleep apnea (adult) (pediatric); Z86.73 Personal history of transient ischemic attack (TIA), and cerebral infarction without residual deficits
CPT/HCPCS: 27130; C1776; 97110; 97162; 97530; NC; 73501; G0378; J0690; J1885; J2001; J2250; J2405; J2704

== ENCOUNTER 2019-12-07 11:28 | Outpatient (CLI) | payer MEDICARE, SELFPAY ==
--- NOTE | 2019-12-07 11:15 | DI.RAD_ITS ---
EXAM: XR HIP LT COMPLETE AP PELVIS CLINICAL HISTORY: 1ST POST OP. TECHNIQUE: 2D digital imaging was performed. COMPARISON: CR XR hip LT complete AP pelvis from 11/28/2018 FINDINGS: BONES: No acute fracture is present. No bony destructive lesion is seen. JOINTS: No dislocation present. There are bilateral total hip replacements which appears stable. SOFT TISSUE: Vascular calcifications are seen in the soft tissues. IMPRESSION: Stable left THR. DATA REPOSITORY: RADIATION DOSE DELIVERED:
== END 2019-12-07 11:48 ==
PROVIDERS: PCP Family Medicine; Referring Provider Family Medicine; Visit Provider Student in an Organized Health Care Education/Training Program
DX: Z96.643 Presence of artificial hip joint, bilateral (principal); Z47.1 Aftercare following joint replacement surgery
CPT/HCPCS: 73502

== ENCOUNTER 2020-01-04 12:53 | Outpatient (CLI) | payer MEDICARE, SELFPAY ==
--- NOTE | 2020-01-04 10:30 | DI.RAD_ITS ---
EXAM: XR KNEE LT 3V AP,LAT,REINIER CLINICAL HISTORY: LEFT KNEE PAIN. TECHNIQUE: 2D digital imaging was performed. COMPARISON: CR LEFT FEMUR from 01/05/2014 FINDINGS: BONES: No acute fracture is present. No bony destructive lesion is seen. There is a bony density at the superior aspect of the patella, unchanged. JOINTS: There is narrowing of the patellofemoral joint. There is moderate spurring at the articular aspect of the patella and adjacent femur. There is milder spurring at the femoral condyles and tibia l plateaus.. No joint effusion is seen. SOFT TISSUE: Mild vascular calcifications. IMPRESSION: Degenerative changes, greatest at the patellofemoral joint. DATA REPOSITORY: RADIATION DOSE DELIVERED:
== END 2020-01-04 13:13 ==
PROVIDERS: PCP Family Medicine; Visit Provider Student in an Organized Health Care Education/Training Program
DX: M25.562 Pain in left knee (principal); M17.12 Unilateral primary osteoarthritis, left knee; Z47.1 Aftercare following joint replacement surgery; Z96.642 Presence of left artificial hip joint
CPT/HCPCS: 73562; 99213

== ENCOUNTER → 2020-02-01 08:14 | Outpatient (BNVA) | payer MEDICARE, SELFPAY | PROVIDERS: PCP Family Medicine; Referring Provider Family Medicine; Visit Provider Student in an Organized Health Care Education/Training Program | DX: Z96.642 Presence of left artificial hip joint (principal); M25.562 Pain in left knee; M17.12 Unilateral primary osteoarthritis, left knee | CPT/HCPCS: 20610; 99213; J1040 ==

== ENCOUNTER 2020-02-08 13:38 | Outpatient (REF) | payer MEDICARE, SELFPAY ==
[2020-02-08 21:46] LABS: Anion Gap 9.4 mmol/L (3-11); BUN 28 mg/dL (7-18); CO2 28.6 mmol/L (21.0-32.0); CREATININE 0.76 mg/dL (0.55-1.02); Calcium 9.5 mg/dL (8.5-10.1); Chloride 102 mmol/L (98-107); Glucose 130 mg/dL (74-106); Potassium 4.1 mmol/L (3.5-5.1); Sodium 140 mmol/L (136-145)
== END 2020-02-08 13:58 ==
LOC: NCHCN 13:38
PROVIDERS: PCP Family Medicine; Visit Provider Family Medicine
DX: I10 Essential (primary) hypertension (principal)
CPT/HCPCS: 80048

== ENCOUNTER 2020-02-17 08:56 | Outpatient (REF) | payer MEDICARE, SELFPAY ==
--- NOTE | 2020-02-17 08:30 | SKI_PTH ---
PATIENT: Abimbola Dumas LOC: [facility]#:[id number] AGE/SX: 74/F ROOM: RE02/17/[address]: Angie Alonzo : 1945 BED: DIS: 02/17/2020 SPEC #: [id number] RECD: 02/18/20 12:49 STATUS: LEROY SALDANA #: [id number] YOVANI: 02/17/20 08:[address]: Angie Alonzo DEPT: Surgical Specimen RECD BY: Susie Chavez Tissues: 1 - SKIN BIOPSY(SHAVE/PUNCH) Procedures: SKIN LEVEL 4 Comments: [id number]
== END 2020-02-17 09:16 ==
LOC: NCHCN 08:56
PROVIDERS: PCP Family Medicine; Visit Provider Family Medicine
DX: B07.8 Other viral warts (principal)
CPT/HCPCS: 88305

== ENCOUNTER 2020-08-15 10:53 | Outpatient (REF) | payer MEDICARE, SELFPAY ==
[2020-08-15 12:25] LABS: COMMENT (LAB VIEW ONLY) 86.65 mg/dL; Microalb ug/mg Crea 4.4 ug/mg Cr
== END 2020-08-15 10:54 | disposition home or self-care (01) ==
LOC: LBN 10:53
PROVIDERS: PCP Family Medicine; Visit Provider Family Medicine
DX: E11.9 Type 2 diabetes mellitus without complications (principal)
CPT/HCPCS: 82043; 82570

== ENCOUNTER → 2020-10-31 13:41 | Outpatient (BNVA) | payer MEDICARE, SELFPAY | PROVIDERS: PCP Family Medicine; Referring Provider Family Medicine; Visit Provider Student in an Organized Health Care Education/Training Program | DX: M17.12 Unilateral primary osteoarthritis, left knee (principal); M22.2X1 Patellofemoral disorders, right knee | CPT/HCPCS: 20610; J1040 ==

== ENCOUNTER 2020-12-01 16:43 | Outpatient (REF) | payer MEDICARE, SELFPAY ==
[2020-12-01 16:13] LABS: Hemoglobin A1C 7.1 % (<5.7)
[2020-12-01 16:21] LABS: ALT 38 U/L (14-59); AST 25 U/L (15-37); Albumin 3.4 g/dL (3.4-5.0); Alkaline Phosphatase 51 U/L (46-116); Anion Gap 10.7 mmol/L (3-11); BUN 25 mg/dL (7-18); Bilirubin, Total 0.5 mg/dL (0.2-1.0); CO2 26.3 mmol/L (21.0-32.0); CREATININE 0.7 mg/dL (0.55-1.02); Calcium 8.9 mg/dL (8.5-10.1); Calculated LDL 85 mg/dL (<100); Chloride 107 mmol/L (98-107); Cholesterol 165 mg/dL (<200); Glucose 135 mg/dL (74-106); HDL Cholesterol 60 mg/dL (40-60); Potassium 3.7 mmol/L (3.5-5.1); Sodium 144 mmol/L (136-145); Total Protein 6.5 g/dL (6.4-8.2); Triglyceride 103 mg/dL (<150)
== END 2020-12-01 16:44 | disposition home or self-care (01) ==
LOC: NCHCN 16:43
PROVIDERS: PCP Family Medicine; Visit Provider Family Medicine
DX: I10 Essential (primary) hypertension (principal); E11.9 Type 2 diabetes mellitus without complications
CPT/HCPCS: 80053; 80061; 83036

== ENCOUNTER 2021-01-27 11:15 | Outpatient (CLI) | payer MEDICARE, SELFPAY ==
--- NOTE | 2021-01-27 10:15 | DI.RAD_ITS ---
Exam(s) XR KNEE RT 3V AP,LAT,REINIER XR STANDING ALIGNMENT EXAM: XR STANDING ALIGNMENT and XR knee RT three-view CLINICAL HISTORY: eval R knee pain and deformity. TECHNIQUE: 2D digital imaging was performed. COMPARISON: Comparison with prior examinations. FINDINGS: BONES: The patient has bilateral total hip replacements. Stable mild degenerative changes are again seen of the left knee. Old bony densities are again seen superior to the left patella. Degenerative changes are seen in the right knee with joint space narrowing and periarticular spurring. Findings are most marked in the medial in the lateral femoral tibial and patellofemoral joint. There is a sma ll joint effusion. There is an enthesophyte at the superior patella. No acute fracture or dislocati on is seen. Mild atherosclerosis is seen. The ankles are well maintained. No significant leg lengt h discrepancy is noted. SOFT TISSUE: Atherosclerosis. IMPRESSION: Osteoarthritis of the knees, right greater than left. DATA REPOSITORY: RADIATION DOSE DELIVERED:
== END 2021-01-27 11:16 | disposition home or self-care (01) ==
LOC: DIORS 11:19
PROVIDERS: PCP Family Medicine; Visit Provider Student in an Organized Health Care Education/Training Program
DX: M17.11 Unilateral primary osteoarthritis, right knee (principal); M17.12 Unilateral primary osteoarthritis, left knee; Z98.890 Other specified postprocedural states; M25.561 Pain in right knee
CPT/HCPCS: 73562; 99213; 77073

== ENCOUNTER → 2021-02-08 08:58 | Outpatient (BNVA) | payer MEDICARE, SELFPAY | PROVIDERS: PCP Family Medicine; Referring Provider Family Medicine | DX: Z01.818 Encounter for other preprocedural examination (principal); M17.11 Unilateral primary osteoarthritis, right knee ==

== ENCOUNTER 2021-02-13 03:13 | Outpatient (CLI) | payer MEDICARE, SELFPAY ==
[2021-02-13 10:29] LABS: HCT 40.4 % (36.0-46.0); HGB 13.4 g/dL (11.2-15.7); MCH 30.9 pg (27.0-33.0); MCHC 33.2 % (32.0-36.0); MCV 93.3 fL (80-95); MPV 8.7 fL (8.0-11.0); Platelet Count 267 10^3/uL (130-400); RBC 4.33 10^6/uL (3.93-5.22); RDW-SD 44.3 fL; WBC 7.16 10^3/uL (4.4-10.8)
[2021-02-13 11:34] LABS: Anion Gap 10.8 mmol/L (3-11); BUN 16 mg/dL (7-18); CO2 27.2 mmol/L (21.0-32.0); CREATININE 0.7 mg/dL (0.55-1.02); Calcium 8.9 mg/dL (8.5-10.1); Chloride 106 mmol/L (98-107); Glucose 138 mg/dL (74-106); Sodium 144 mmol/L (136-145)
[2021-02-13 12:55] LABS: Source Nasal/Nares
[2021-02-13 18:38] LABS: COVID-19 PCR Negative (Negative)
== END 2021-02-13 03:14 | disposition home or self-care (01) ==
LOC: LBO 03:13
PROVIDERS: PCP Family Medicine; Visit Provider Student in an Organized Health Care Education/Training Program
DX: M25.561 Pain in right knee (principal); M17.11 Unilateral primary osteoarthritis, right knee; E11.9 Type 2 diabetes mellitus without complications; Z20.822 Contact with and (suspected) exposure to COVID-19; Z01.818 Encounter for other preprocedural examination; Z01.812 Encounter for preprocedural laboratory examination
CPT/HCPCS: 36415; 80048; 85027; 87635; 83036

== ENCOUNTER 2021-02-14 05:58 | Day surgery (SDC) | payer MEDICARE, SELFPAY ==
[2021-02-14] VITALS (8 sets, daily range): BP systolic 124–147; BP diastolic 59–78; PULSE 55–70; RESP 12–17; TEMP 36–36.4; O2SAT 95–98; BMI 35.6
[2021-02-14] MEDS: Acetaminophen 500 MG TAB 1000 MG PO (06:32)
[2021-02-14] MEDS: Gabapentin 300 MG CAP PO (06:32)
[2021-02-14] MEDS: Celecoxib 200 MG CAP 400 MG PO (06:32)
--- NOTE | 2021-02-14 06:59 | ANES.PREOP_ITS ---
General Info Date of Service Date Performed: 02/14/21 Height: 5 ft 6 in Weight: 100.2 kg Body Mass Index (BMI): 35.6 Surgical Procedure: Operation Date: 02/14/21 07:40 Proposed Procedures Side Surgeon p Knee Total Arthroplasty Right Carlos Encinas MD s Injection Left Carlos Encinas MD Meds Allergies and Home Medications Allergies Allergy/AdvReac Type Severity Reaction Status Date / Time Penicillins Allergy Unknown Pt unaware Verified 02/14/21 06:12 of allery or response Home Medication Medication Instructions Recorded calcium carbonate-vitamin D3 1 tab PO BID 09/01/12 multivitamin [Multi-Day] 1 tab PO DAILY 09/01/12 Citrucel Sugar Free 1 tbs PO DAILY 08/16/16 atorvastatin 40 mg PO .QPM 08/16/16 pantoprazole 20 mg PO DAILY 08/16/16 lisinopril 40 mg tablet 40 mg PO DAILY tab 01/08/19 potassium chloride 10 meq PO DAILY 11/16/19 furosemide 20 mg tablet 40 mg PO DAILY tab 01/04/20 amlodipine 10 mg tablet 10 mg PO DAILY tab 10/31/20 tamoxifen 20 mg tablet 20 mg PO DAILY 10/31/20 metoprolol tartrate 25 mg tablet 25 mg PO BID tab 02/08/21 acetaminophen 1,000 mg PO Q8H PRN PRN #90 cap 02/14/21 aspirin 81 mg PO BID #60 tab 02/14/21 gabapentin 300 mg PO QHS #14 cap 02/14/21 ibuprofen 600 mg PO TID PRN #30 tab 02/14/21 oxycodone 5 mg PO Q4H PRN #20 cap 02/14/21 Current Visit Medications: Current Medications Generic Name Dose Route Start Last Admin Trade Name Freq PRN Reason Stop Dose Admin Acetaminophen 1,000 mg 02/14/21 06:00 02/14/21 06:32 Acetaminophen 500 Mg Tab PO 02/14/21 16:00 1,000 mg PREOP EVERARDO Administration Celecoxib 400 mg 02/14/21 06:00 02/14/21 06:32 Celecoxib 200 Mg Cap PO 02/14/21 16:00 400 mg PREOP EVERARDO Administration Ephedrine Sulfate 0 mg 02/14/21 06:56 Ephedrine 50 Mg/Ml Vial IVP DIRECTED PRN Fentanyl 0 mcg 02/14/21 06:56 Fentanyl 100 Mcg/2 Ml Vial IVP DIRECTED PRN Gabapentin 300 mg 02/14/21 06:00 02/14/21 06:32 Gabapentin 300 Mg Cap PO 02/14/21 16:00 300 mg PREOP EVERARDO Administration Hydromorphone HCl 0 mg 02/14/21 06:56 Hydromorphone 2 Mg/Ml Vial IVP DIRECTED PRN Tranexamic Acid 1,000 mg/ 60 mls @ 360 mls/hr 02/14/21 06:00 Sodium Chloride IVPB 02/14/21 16:00 PREOP EVERARDO Tranexamic Acid 1,000 mg/ 60 mls @ 360 mls/hr 02/14/21 06:00 Sodium Chloride IVPB 02/14/21 16:00 DIRECTED EVERARDO Ringer's Solution 1,000 mls @ 80 mls/hr 02/14/21 06:00 IV 03/15/21 23:59 INFUSION EVERARDO Cefazolin Sodium 2,000 mg/ 100 mls @ 200 mls/hr 02/14/21 06:00 Sodium Chloride IVPB 02/14/21 16:00 PREOP EVERARDO Ringer's Solution 1,000 mls @ 30 mls/hr 02/14/21 07:00 IV INFUSION [facility] IV Miscellaneous Supplies 1 each 02/14/21 06:00 Iv Access IV 03/15/21 23:59 DIRECTED EVERARDO Naloxone HCl 0 mg 02/14/21 06:56 Naloxone 0.4 Mg/Ml Vial IVP PRN PRN Sodium Chloride 0 ml 02/14/21 06:00 Normal Saline Flush 10 Ml Syr IV 03/15/21 23:59 PRN PRN Sodium Chloride 0 ml 02/14/21 06:00 Normal Saline 10 Ml Vial IJ 03/15/21 23:59 DIRECTED PRN Sterile Water 0 ml 02/14/21 06:00 Water,Injection,Sterile 10 Ml Vial IJ 03/15/21 23:59 DIRECTED PRN PFSH Active Problems Active Problems: Problem Status Onset Code Osteoarthritis of right knee M17.11 Patellofemoral disorders, right knee M22.2X1 Arthritis of left knee M17.12 Status post total hip replacement, left Z96.642 Closed fracture of right distal radius S52.501A Squamous cell carcinoma in situ 09/13/14 D09.9 Primary osteoarthritis of right hip 10/12/16 M16.11 Neoplasm of skin 08/30/14 D49.2 Atypical nevus 09/13/14 D22.9 Primary osteoarthritis of left hip M16.12 Medical History Medical History Adenomatous colon polyp Back pain Barretts esophagus Breast CA lt breast Controlled diabetes mellitus without long-term current use of insulin Diverticulosis Gastric hemorrhage History of stroke Hyperlipidemia Hypertension Intracranial hemorrhage, spontaneous intraparenchymal, associated with hypertension, acute 1998 Obstructive sleep apnea Osteoarthritis Pancreatitis 1982 Patellofemoral disorders, right knee Sciatica of left side 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 Wrist fracture, right Surgical History Surgical History (Updated 02/14/21 @ 07:48 by DUDLEY Garcia) Biopsy of breast (12/04/16) right breast- benign Colonoscopy - IV Sedation EGD - IV Sedation 2009-William's 2012 and 2013-nl H/O local excision of skin lesion History of cholecystectomy History of heart surgery PT states CABG x 4 01/2019 [facility] [place] History of hysterectomy History of total right knee replacement (TKR) (02/14/21) S/P lumpectomy, left breast Status post total hip replacement, left Total replacement of hip right Tobacco Smoking/Tobacco Use Status: Never Alcohol Alcohol Intake: current Alcohol intake frequency: holidays/special occasions only Substance Use Substance use: Never Substance use type: does not use Vital Signs and Lab Results Vital Signs Most Recent Vital Signs in EMR: Most Recent Vital Signs Temp Pulse Resp BP Pulse Ox 36.4 C L 70 16 137/78 96 02/14/21 06:17 02/14/21 06:17 02/14/21 06:17 02/14/21 06:17 02/14/21 06:17 Lab Results Blood Type / Crossmatch: No Data to Display Complete Blood Count: White Blood Count 7.16 10^3/uL (4.4-10.8) 02/13/21 10:15 02/13/21 Red Blood Count 4.33 10^6/uL (3.93-5.22) 02/13/21 10:15 02/13/21 Hemoglobin 13.4 g/dL (11.2-15.7) 02/13/21 10:15 02/13/21 Hematocrit 40.4 % (36.0-46.0) 02/13/21 10:15 02/13/21 Platelet Count 267 10^3/uL (130-400) 02/13/21 10:15 02/13/21 Complete Metabolic Panel: Sodium Level 144 mmol/L (136-145) 02/13/21 10:15 02/13/21 Potassium Level 4.0 mmol/L (3.5-5.1) 02/13/21 10:15 02/13/21 Chloride Level 106 mmol/L (98-107) 02/13/21 10:15 02/13/21 Carbon Dioxide Level 27.2 mmol/L (21.0-32.0) 02/13/21 10:15 02/13/21 Blood Urea Nitrogen 16 mg/dL (7-18) 02/13/21 10:15 02/13/21 Creatinine 0.7 mg/dL (0.55-1.02) 02/13/21 10:15 02/13/21 Estimated GFR/1.73 m2 >= 60.00 (mL/min/1.73m2) 02/13/21 10:15 02/13/21 Calcium Level 8.9 mg/dL (8.5-10.1) 02/13/21 10:15 02/13/21 Glucose Level 138 mg/dL (74-106) H 02/13/21 10:15 02/13/21 Hemoglobin A1c 7.0 % (<5.7) H 02/13/21 10:15 02/13/21 Liver Function Panel: No Data to Display Coagulation Panel: No Data to Display Cardiac Panel: No Data to Display Arterial Blood Gas: No Data to Display Venous Blood Gas: No Data to Display Pancreas Panel: No Data to Display Thyroid Panel: No Data to Display Infectious Disease: Coronavirus (COVID-19)(PCR) Negative (Negative) 02/13/21 10:30 02/13/21 Coronavirus 2019 Source Nasal/Nares 02/13/21 10:30 02/13/21 Blood Cultures: No Data to Display Toxicology Panel: No Data to Display Anesthesia Assessment and Plan Anesthesia History Personal History: No History of Anesthesia Complications Family History: No Family History of Anesthesia Complications Exercise Tolerance Exercise Tolerance: Metabolic Equivalents>4 Pertinent Negatives Pertinent Negatives: No Major Cardiovascular Symptoms or Complaints, No Major Pulmonary Symptoms or Complaints (NOC CPAP) and Other (Chronic GERD, moderately controlled. Cabg 2019. Stroke 25 yrs ago, no defecits.) Cardiac & Pulmonary Exam Cardiac Exam: Normal S1/S2 Heart Sounds Pulmonary Exam: Clear Bilateral Breath Sounds Airway Exam Known Difficult Airway: No Mallampati Class: 2 Mouth Opening: Normal (> 3cm) Thyromental Distance: Greater than 3 cm Neck Range of Motion: Full ROM Neck Circumference: Normal Teeth Condition: Normal Dentition ASA Classification ASA Score: ASA 2 Emergency Case?: No NPO Status NPO Status: NPO Clears >2 hours, Solids >8 hours Anesthesia Plan Resuscitation Status: Full Code Anesthesia Technique: Spinal Anesthesia Airway Planned: Natural Airway Monitors Used: Standard Monitors
[2021-02-14] MEDS: Lactated Ringers 1,000 ML 80 ML IV (07:15)
--- NOTE | 2021-02-14 07:38 | W.ANESPRE ---
General Info Height: 5 ft 6 in Weight: 100.2 kg Body Mass Index (BMI): 35.6 Surgical Procedure: Operation Date: 02/14/21 07:40 Proposed Procedures Side Surgeon p Knee Total Arthroplasty Right Carlos Encinas MD s Injection Left Carlos Encinas MD Meds Allergies and Home Medications Allergies Allergy/AdvReac Type Severity Reaction Status Date / Time Penicillins Allergy Unknown Pt unaware Verified 02/14/21 06:12 of allery or response Home Medication Medication Instructions Recorded calcium carbonate-vitamin D3 1 tab PO BID 09/01/12 multivitamin [Multi-Day] 1 tab PO DAILY 09/01/12 Citrucel Sugar Free 1 tbs PO DAILY 08/16/16 atorvastatin 40 mg PO .QPM 08/16/16 pantoprazole 20 mg PO DAILY 08/16/16 lisinopril 40 mg tablet 40 mg PO DAILY tab 01/08/19 potassium chloride 10 meq PO DAILY 11/16/19 acetaminophen 1,000 mg PO Q8H PRN #90 tab 11/19/19 ibuprofen 600 mg PO TID PRN #90 tab 11/19/19 aspirin 81 mg tablet,delayed 81 mg PO DAILY tab 01/04/20 release furosemide 20 mg tablet 40 mg PO DAILY tab 01/04/20 amlodipine 10 mg tablet 10 mg PO DAILY tab 10/31/20 tamoxifen 20 mg tablet 20 mg PO DAILY 10/31/20 metoprolol tartrate 25 mg tablet 25 mg PO BID tab 02/08/21 Current Visit Medications: Current Medications Generic Name Dose Route Start Last Admin Trade Name Freq PRN Reason Stop Dose Admin Acetaminophen 1,000 mg 02/14/21 06:00 02/14/21 06:32 Acetaminophen 500 Mg Tab PO 02/14/21 16:00 1,000 mg PREOP EVERARDO Administration Celecoxib 400 mg 02/14/21 06:00 02/14/21 06:32 Celecoxib 200 Mg Cap PO 02/14/21 16:00 400 mg PREOP EVERARDO Administration Ephedrine Sulfate 0 mg 02/14/21 06:56 Ephedrine 50 Mg/Ml Vial IVP DIRECTED PRN Fentanyl 0 mcg 02/14/21 06:56 Fentanyl 100 Mcg/2 Ml Vial IVP DIRECTED PRN Gabapentin 300 mg 02/14/21 06:00 02/14/21 06:32 Gabapentin 300 Mg Cap PO 02/14/21 16:00 300 mg PREOP EVERARDO Administration Hydromorphone HCl 0 mg 02/14/21 06:56 Hydromorphone 2 Mg/Ml Vial IVP DIRECTED PRN Tranexamic Acid 1,000 mg/ 60 mls @ 360 mls/hr 02/14/21 06:00 Sodium Chloride IVPB 02/14/21 16:00 PREOP EVERARDO Tranexamic Acid 1,000 mg/ 60 mls @ 360 mls/hr 02/14/21 06:00 Sodium Chloride IVPB 02/14/21 16:00 DIRECTED EVERARDO Ringer's Solution 1,000 mls @ 80 mls/hr 02/14/21 06:00 02/14/21 07:15 IV 03/15/21 23:59 80 mls/hr INFUSION EVERARDO Administration Cefazolin Sodium 2,000 mg/ 100 mls @ 200 mls/hr 02/14/21 06:00 Sodium Chloride IVPB 02/14/21 16:00 PREOP EVERARDO Ringer's Solution 1,000 mls @ 30 mls/hr 02/14/21 07:00 IV INFUSION EVERARDO IV Miscellaneous Supplies 1 each 02/14/21 06:00 Iv Access IV 03/15/21 23:59 DIRECTED EVERARDO Naloxone HCl 0 mg 02/14/21 06:56 Naloxone 0.4 Mg/Ml Vial IVP PRN PRN Sodium Chloride 0 ml 02/14/21 06:00 Normal Saline Flush 10 Ml Syr IV 03/15/21 23:59 PRN PRN Sodium Chloride 0 ml 02/14/21 06:00 Normal Saline 10 Ml Vial IJ 03/15/21 23:59 DIRECTED PRN Sterile Water 0 ml 02/14/21 06:00 Water,Injection,Sterile 10 Ml Vial IJ 03/15/21 23:59 DIRECTED PRN PFSH Active Problems Active Problems: Problem Status Onset Code Osteoarthritis of right knee M17.11 Patellofemoral disorders, right knee M22.2X1 Arthritis of left knee M17.12 Status post total hip replacement, left Z96.642 Closed fracture of right distal radius S52.501A Squamous cell carcinoma in situ 09/13/14 D09.9 Primary osteoarthritis of right hip 10/12/16 M16.11 Neoplasm of skin 08/30/14 D49.2 Atypical nevus 09/13/14 D22.9 Primary osteoarthritis of left hip M16.12 Medical History Medical History Adenomatous colon polyp Back pain Barretts esophagus Breast CA lt breast Controlled diabetes mellitus without long-term current use of insulin Diverticulosis Gastric hemorrhage History of stroke Hyperlipidemia Hypertension Intracranial hemorrhage, spontaneous intraparenchymal, associated with hypertension, acute 1998 Obstructive sleep apnea Osteoarthritis Pancreatitis 1983 Patellofemoral disorders, right knee Sciatica of left side 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 Wrist fracture, right Surgical History Surgical History Biopsy of breast (12/04/16) right breast- benign Colonoscopy - IV Sedation EGD - IV Sedation 2008-William's 2012 and 2013-nl H/O local excision of skin lesion History of cholecystectomy History of heart surgery PT states CABG x 4 01/2019 [facility] [place] History of hysterectomy S/P lumpectomy, left breast Status post total hip replacement, left Total replacement of hip right Tobacco Smoking/Tobacco Use Status: Never Alcohol Alcohol Intake: current Alcohol intake frequency: holidays/special occasions only Substance Use Substance use: Never Substance use type: does not use Vital Signs and Lab Results Vital Signs Most Recent Vital Signs in EMR: Most Recent Vital Signs Temp Pulse Resp BP Pulse Ox 36.4 C L 70 16 137/78 96 02/14/21 06:17 02/14/21 06:17 02/14/21 06:17 02/14/21 06:17 02/14/21 06:17 Point of Care Results Point of Care Results: Finger Stick Blood Glucose 141 02/14/21 06:50 Lab Results Blood Type / Crossmatch: No Data to Display Complete Blood Count: White Blood Count 7.16 10^3/uL (4.4-10.8) 02/13/21 10:15 02/13/21 Red Blood Count 4.33 10^6/uL (3.93-5.22) 02/13/21 10:15 02/13/21 Hemoglobin 13.4 g/dL (11.2-15.7) 02/13/21 10:15 02/13/21 Hematocrit 40.4 % (36.0-46.0) 02/13/21 10:15 02/13/21 Platelet Count 267 10^3/uL (130-400) 02/13/21 10:15 02/13/21 Complete Metabolic Panel: Sodium Level 144 mmol/L (136-145) 02/13/21 10:15 02/13/21 Potassium Level 4.0 mmol/L (3.5-5.1) 02/13/21 10:15 02/13/21 Chloride Level 106 mmol/L (98-107) 02/13/21 10:15 02/13/21 Carbon Dioxide Level 27.2 mmol/L (21.0-32.0) 02/13/21 10:15 02/13/21 Blood Urea Nitrogen 16 mg/dL (7-18) 02/13/21 10:15 02/13/21 Creatinine 0.7 mg/dL (0.55-1.02) 02/13/21 10:15 02/13/21 Estimated GFR/1.73 m2 >= 60.00 (mL/min/1.73m2) 02/13/21 10:15 02/13/21 Calcium Level 8.9 mg/dL (8.5-10.1) 02/13/21 10:15 02/13/21 Glucose Level 138 mg/dL (74-106) H 02/13/21 10:15 02/13/21 Hemoglobin A1c 7.0 % (<5.7) H 02/13/21 10:15 02/13/21 Liver Function Panel: No Data to Display Coagulation Panel: No Data to Display Cardiac Panel: No Data to Display Arterial Blood Gas: No Data to Display Venous Blood Gas: No Data to Display Pancreas Panel: No Data to Display Thyroid Panel: No Data to Display Infectious Disease: Coronavirus (COVID-19)(PCR) Negative (Negative) 02/13/21 10:30 02/13/21 Coronavirus 2019 Source Nasal/Nares 02/13/21 10:30 02/13/21 Blood Cultures: No Data to Display Toxicology Panel: No Data to Display Anesthesia Assessment and Plan Anesthesia History Personal History: No History of Anesthesia Complications Family History: No Family History of Anesthesia Complications Airway Exam Known Difficult Airway: No Mallampati Class: 2 Mouth Opening: Normal (> 3cm) Thyromental Distance: Greater than 3 cm Neck Range of Motion: Full ROM Neck Circumference: Normal Teeth Condition: Normal Dentition
--- NOTE | 2021-02-14 07:47 | W.PM.DSUDISC ---
Documented by User: DUDLEY Garcia 02/14/21 07:55 Discharge Plan Disposition Patient Disposition: HOME Condition: Good Discharge Details Reason For Visit: R TKR Attending Provider: Carlos Encinas Primary Care Provider: Angie Alonzo Home Meds and New Rx's Prescriptions: New acetaminophen 500 mg capsule 1,000 mg PO Q8H PRN PRNQty: 90 RF: 0 aspirin 81 mg tablet,delayed release (DR/EC) 81 mg PO BID Qty: 60 RF: 0 oxycodone 5 mg capsule 5 mg PO Q4H PRNQty: 20 RF: 0 gabapentin 300 mg capsule 300 mg PO QHS Qty: 14 RF: 0 ibuprofen 600 mg tablet 600 mg PO TID PRN (Reason: pain) Qty: 30 RF: 0 Continued tamoxifen 20 mg tablet 20 mg PO DAILY RF: 0 multivitamin [Multi-Day] 1 EACH tablet 1 tab PO DAILY RF: 0 calcium carbonate-vitamin D3 1 EACH tablet 1 tab PO BID RF: 0 lisinopril 40 mg tablet 40 mg PO DAILY RF: 0 atorvastatin 40 MG tablet 40 mg PO .QPM RF: 0 pantoprazole 20 MG tablet,delayed release (DR/EC) 20 mg PO DAILY RF: 0 Citrucel Sugar Free 1,191 GM powder 1 tbs PO DAILY RF: 0 potassium chloride 10 mEq Tablet Extended Release 10 meq PO DAILY RF: 0 furosemide 20 mg tablet 40 mg PO DAILY RF: 0 amlodipine 10 mg tablet 10 mg PO DAILY RF: 0 metoprolol tartrate 25 mg tablet 25 mg PO BID RF: 0 Discontinued aspirin 81 mg tablet,delayed release (DR/EC) 81 mg PO DAILY RF: 0 acetaminophen 500 mg tablet 1,000 mg PO Q8H PRN (Reason: pain) Qty: 90 RF: 3 ibuprofen 600 mg tablet 600 mg PO TID PRNQty: 90 RF: 3 Discharge Instructions Additional Instructions: Total Knee Discharge Instructions Activity: The most important activity is to walk. You should try to take short walks a few times a day. It is important that when resting you work on keeping the knee straight. Avoid putting a pillow behind the knee as this will encourage flexion. Work on range of motion exercises as provided by Physical Therapy. - Start outpatient physical therapy within 2 weeks. - You should wear the EULOGIO hose on both legs for 2 weeks. You may remove these at night. You may also use any compression sock in place of the EULOGIO hose. Dressing: You may remove the Placido wrap on your leg 2 days after your surgery and put on the EULOGIO stocking given to you from the hospital. Keep the surgical dressing (underneath the PLACIDO wrap) in place for at least one week. After the first week it may be removed and replaced with light gauze and tape or nothing. The wound and dressing may get wet after 3 days but avoid soaking the dressing or otherwise it will need to be changed. Many people prefer covering the dressing with cling wrap (saran wrap) to minimize it from getting soaked. If it gets wet, just pat dry. If it starts to peel off then it will need to be changed. Medications: - You should take Tylenol and anti-inflammatory ibuprofen as your primary pain control medications. - You have been prescribed a stronger pain medication Oxycodone for breakthrough pain, take as needed as prescribed. - You have been prescribed Gabapentin to take at night for restlessness and nerve pain. - You will be taking Aspirin 81mg twice a day for DVT prevention unless instructed otherwise. - If you have constipation you should take Colace or Miralax (both [id number]). It takes most people 3-4 days to have a bowel movement. Follow-up: 2 weeks If you have any acute concerns or questions, please do not hesitate to contact the office at [phone]. You may contact Dr. Encinas with any questions after hours through the hospital at [phone] or on his cell phone at [phone]. Referrals: Carlos Encinas MD [ [facility] STAFF PHYSICIAN] - Equipment/Supplies: Walker Activity:: Activity as Tolerated Shower/Bathe:: 72 hours Diet:: As Tolerated Discharge Orders Discharge Orders: Discharge Order (Routine); Ordered 02/14/21 Ordered By: Carlso Encinas DS: Diagnosis Discharge Diagnosis (1) Osteoarthritis of right knee: Status: Chronic Documented by User: Carlos Encinas MD 02/14/21 13:29 Discharge Plan Disposition Patient Disposition: HOME Condition: Good Discharge Details Reason For Visit: R TKR Attending Provider: Carlos Encinas Primary Care Provider: Angie Alonzo Home Meds and New Rx's Prescriptions: New acetaminophen 500 mg capsule 1,000 mg PO Q8H PRN PRNQty: 90 RF: 0 aspirin 81 mg tablet,delayed release (DR/EC) 81 mg PO BID Qty: 60 RF: 0 oxycodone 5 mg capsule 5 mg PO Q4H PRNQty: 20 RF: 0 gabapentin 300 mg capsule 300 mg PO QHS Qty: 14 RF: 0 ibuprofen 600 mg tablet 600 mg PO TID PRN (Reason: pain) Qty: 30 RF: 0 Continued tamoxifen 20 mg tablet 20 mg PO DAILY RF: 0 multivitamin [Multi-Day] 1 EACH tablet 1 tab PO DAILY RF: 0 calcium carbonate-vitamin D3 1 EACH tablet 1 tab PO BID RF: 0 lisinopril 40 mg tablet 40 mg PO DAILY RF: 0 atorvastatin 40 MG tablet 40 mg PO .QPM RF: 0 pantoprazole 20 MG tablet,delayed release (DR/EC) 20 mg PO DAILY RF: 0 Citrucel Sugar Free 1,191 GM powder 1 tbs PO DAILY RF: 0 potassium chloride 10 mEq Tablet Extended Release 10 meq PO DAILY RF: 0 furosemide 20 mg tablet 40 mg PO DAILY RF: 0 amlodipine 10 mg tablet 10 mg PO DAILY RF: 0 metoprolol tartrate 25 mg tablet 25 mg PO BID RF: 0 Discontinued aspirin 81 mg tablet,delayed release (DR/EC) 81 mg PO DAILY RF: 0 acetaminophen 500 mg tablet 1,000 mg PO Q8H PRN (Reason: pain) Qty: 90 RF: 3 ibuprofen 600 mg tablet 600 mg PO TID PRNQty: 90 RF: 3 Discharge Instructions Additional Instructions: Total Knee Discharge Instructions Activity: The most important activity is to walk. You should try to take short walks a few times a day. It is important that when resting you work on keeping the knee straight. Avoid putting a pillow behind the knee as this will encourage flexion. Work on range of motion exercises as provided by Physical Therapy. - Start outpatient physical therapy within 2 weeks. - You should wear the EULOGIO hose on both legs for 2 weeks. You may remove these at night. You may also use any compression sock in place of the EULOGIO hose. Dressing: You may remove the Placido wrap on your leg 2 days after your surgery and put on the EULOGIO stocking given to you from the hospital. Keep the surgical dressing (underneath the PLACIDO wrap) in place for at least one week. After the first week it may be removed and replaced with light gauze and tape or nothing. The wound and dressing may get wet after 3 days but avoid soaking the dressing or otherwise it will need to be changed. Many people prefer covering the dressing with cling wrap (saran wrap) to minimize it from getting soaked. If it gets wet, just pat dry. If it starts to peel off then it will need to be changed. Medications: - You should take Tylenol and anti-inflammatory ibuprofen as your primary pain control medications. - You have been prescribed a stronger pain medication Oxycodone for breakthrough pain, take as needed as prescribed. - You have been prescribed Gabapentin to take at night for restlessness and nerve pain. - You will be taking Aspirin 81mg twice a day for DVT prevention unless instructed otherwise. - If you have constipation you should take Colace or Miralax (both [id number]). It takes most people 3-4 days to have a bowel movement. Follow-up: 2 weeks If you have any acute concerns or questions, please do not hesitate to contact the office at [phone]. You may contact Dr. Encinas with any questions after hours through the hospital at [phone] or on his cell phone at [phone]. Referrals: Carlos Encinas MD [ [facility] STAFF PHYSICIAN] - Equipment/Supplies: Walker Activity:: Activity as Tolerated Shower/Bathe:: 72 hours Diet:: As Tolerated Discharge Orders Discharge Orders: Discharge Order (Routine); Ordered 02/14/21 Ordered By: Carlos Encinas
[2021-02-14] MEDS: ceFAZolin 2,000 MG in Normal Saline 100 ML 200 MG IVPB (08:02)
--- NOTE | 2021-02-14 08:23 | W.ANESNERVE ---
Nerve Block Single Injection Procedure Date and Time Date Performed: 02/14/21 Procedure Start: 07:25 Location Where Procedure Performed Procedure Location: PACU Reason Performed: Postoperative Analgesia Requesting Provider: Carlos Encinas Timeout Performed Timeout Performed: Yes Monitoring Used ECG, Blood Pressure and SpO2 Sterility Sterility: Hand Hygiene, Surgical Cap, Surgical Mask, Sterile Gloves and Chlorhexidine Sedation Given During Procedure Sedation Given (Indicate Dose Given): Versed IV Dose:: 1mg Patient Mental Status Patient Mental Status: Awake Nerve Block 1st Nerve Block: Laterality: Right Block Type: Adductor Canal Needle / Catheter Used: 100mm SonoPlex II Local Anesthetic Bolus (Indicate Dose Given): Lidocaine used for local infiltration of skin, Injected in 3-5ml increments after negative blood aspiration and Bupivacaine 0.25% Dose:: 20mL Additives (Indicate Dose Given): None Ultrasound: Sterile probe cover and gel used Ultrasound Image Saved?: Yes Nerve Stimulator: Not Used Paresthesia: None Procedure Tolerated: No Complications and Patient tolerated well Procedure Outcome: Successful Performed By: Marissa Eaton Supervised By: Renato Martinez
[2021-02-14] MEDS: Ketorolac 30 MG/ML VIAL (08:44)
[2021-02-14] MEDS: Bupivacaine 0.25% Pres-Free 30 ML VIAL (08:45)
[2021-02-14] MEDS: Normal Saline 20 ML VIAL (08:46)
[2021-02-14] MEDS: methylPREDNISolone ACETATE 80 MG/ML VIAL (08:47)
--- NOTE | 2021-02-14 10:30 | W.PM.OP ---
Date of service: 02/14/21 Time of Service: 09:30 Operative Note Operative Note DATE OF PROCEDURE: 02/14/21 PRE-OP DIAGNOSIS: Right Knee Osteoarthritis POST-OP DIAGNOSIS: same PROCEDURE: Right Total Knee Replacement with Intraoperative Navigation SURGEON: Carlos Encinas [employer] PREARRANGEMENT COUNSELOR: Latrell Heart ANESTHESIA TYPE: Spinal Refer to Anesthesia Record ESTIMATED BLOOD LOSS: 150 PATHOLOGY: none sent TOURNIQUET TIME: 0 COMPLICATIONS: None Patient was transported to: PACU Patient's condition: stable Implants: 1. Depuy Attune Cementless Cruciate Retaining Femoral Component, Size 6 2. Depuy Attune Cementless Rotating Platform Tibial Component, Size 5 3. Depuy Attune 6x6 CR/RP Poly 4. Depuy Attune Patellar Component, Size 38 Indications: I have seen Abimbola in clinic for symptoms of RIGHT knee arthritis, confirmed with radiographic findings. She has exhausted nonoperative methods and was having significant limitations in daily function and desired better function and less pain. I discussed the technical details of a knee replacement. I explained the risks of the procedure to include, but not limited to, bleeding, infection, pain, stiffness, fracture, damage to nerves and vessels, damage to muscles and tendons, loosening, need for repeat procedure, blood clot and cardiopulmonary demise. Despite these risks, Abimbola elected to proceed. Findings: There was significant signs of arthritis throughout the knee. These were mostly located in the medial femur and lateral tibia. The entire patella had softened cartilage with prominent peripheral osteophytes. Procedure Description: [place] was greeted in the preoperative holding area where the correct side was identified and marked. The consent was reviewed with the patient and signed. The history and physical was updated. All questions were answered. Preoperative mediacations were administered: Acetaminophen 1000mg, Celebrex 400mg, and Gabapentin 300mg. An adductor canal block was then administered by the anesthesia team in the PACU. Abimbola was taken back to the operating room. A spinal anesthestic was then administered. The patient was placed into the supine position on the operating room table. A nonsterile tourniquet was placed high onto the leg. Posts were placed for positioning during the procedure. All bony prominences were well padded. Prophylactic antibiotics in the form of Cefazolin were administered. 1g of Tranxemic Acid was given intravenously within 30 minutes of incision. The right leg was then prepped with Chloraprep and draped in a standard fashion with impervious stockinette. A second prep with Chloraprep was performed prior to application of Iodine impregnated skin protection. A timeout to confirm correct identity, side and site, procedure, allergies, anesthesia, and medical concerns was performed. With the knee in some flexion, a midline incision was made overlying the knee. Full thickness skin flaps were raised once the extensor mechanism was encountered. These were raised medially and laterally. Any bleeding was controlled with electrocautery. Once the extensor mechanism was fully exposed, a medial parapatellar arthrotomy was performed in a flexed position. All bleeding from the arthrotomy and the geniculate arteries was coagulated. A medial subperiosteal peel was performed with electrocautery to the midcoronal plane. The fat pad was removed while keeping the patellar tendon protected. The anterior distal femur synovium was removed for later visualization. The ACL and PCL were resected and the anterior horn of the lateral meniscus was transected. The knee was then flexed with the patella everted. A single starting pin was then placed 1cm anterior to the PCL insertion and the notch in the direction of the femoral head. The OrthoAlign device was applied over the pin. It was oriented to be in line with the epicondylar axis and the trochlear groove. It was then pinned into place. The navigation computer was then turned on and calibrated. The distal femur cut was set at 0 degrees varus/valgus and 2.5 degrees flexion. The distal femur cutting guide then was positioned for a 9mm cut. The distal femur was cut with an oscillating saw while protecting the soft tissues. The tibia was then addressed. The OrthoAlign device was placed over the tibial tubercle and medial tibia and secured into position. Once again, OrthoAlign was calibrated and then set for a 0 degree varus/valgus cut and 5 degrees of posterior slope. With this locked into position, the cut thickness stylus was used to assess cut thickness. The lateral side, most involved side, was set for a 4mm cut which corresponded to 8mm medially. This was then held in position and pinned into place with 2 additional pins and a cross pin for stability. The medial and lateral collateral ligaments were protected and the cut was performed. With this completed, it was assessed and noted to be of appropriate dimensions. The guide and OrthoAlign was removed. A spacer block was inserted and the knee was brought into extension. The 6mm spacer block provided full extension, without hyperextension and with stability of both the medial and lateral collateral ligaments was assessed. The pins from the femur and the tibia were then removed. The distal femur was then sized. The anterior stylus was placed onto the lateral ridge of the anterior femur. This indicated a size 6 femur. The external rotation of the guide was adjusted to 3 degrees to match the epicondylar axis, perpendicular to Noelle?s line. The 4-in-1 cutting guide was the placed. The posterior medial femur cut was evaluated and appeared of good thickness. The spacer block was inserted underneath the cutting guide and stability was confirmed in 90 degrees of flexion. An james wing was used to confirm appropriate position of the anterior cut to avoid notching. This cutting guide was ensured to be flush on the cut surface and then pinned into place with headed pins. While protecting the soft tissues, quad tendon, and collateral ligaments, the anterior and posterior cuts were performed with a saw. The central two pins were removed and the posterior and anterior chamfers were cut next. The notch-cutting guide was placed. This was pinned to lateralize the femoral component as much as possible while keeping it flush on the cut surface. This was then pinned into position. A reciprocating saw was used to make the notch cut. A rasp smoothed the cut surfaces. The medial and lateral menisci were removed. A trial femoral component was then inserted, impacted down to the cut surfaces, and the lug holes were drilled. A provisional trial tibial component was placed and the knee was brought through range of motion. There was noted to be excellent extension and flexion. There was no significant instability. The patella was tracking without thumbs. A size 6mm polyethylene component provided the best range of motion and stability with less than 2mm gapping with medial and lateral stress and full extension without significant hyperextension. The tibial cut surface was fully exposed. The tibia was then sized as a 5. The tibia had been previously marked during trialing to correspond to the center of the tibial component to help with rotation. The trial was aligned to this latrell, approximately rotated to the medial 1/3rd of the tibial tubercle. The trial was pinned into place. The tibia was prepared with a reamer and a keel punch and lug holes. The knee was then brought into extension and the patella was measured as 22mm. Using the patellar clamp and cut guide, this was resected to a flat surface with at least 13mm of thickness remaining. The size 38 patella fit the best. This was oriented and then clamped into position. The lugs were drilled. The trial components were removed. The final components were opened on the back table. The periosteal and capsular tissues, especially posteriorly, around the knee were then systematically injected with a periarticular cocktail consisting of 50cc 0.25% Marcaine, 30mg Ketorolac, 20cc of Exparal and 50cc of injectable saline. The knee was thoroughly irrigated with a pulse lavage and dried. Irrisept was also used to irrigate the tissues. On the back table, with the implants opened, the cement was mixed. One batch of high viscosity cement was prepared with vacuum assistance. After the cement was ready a small amount was placed on the cut surface of the patella and the patellar button was clamped into position and held. While the cement was hardening, the cementless knee components were placed. Starting with the tibial component, the tibia was subluxed anteriorly and the lug holes of the component were lined up. The tibia was then impacted with an impactor and mallet until the tibial component was in contact with the tibia. The final polyethylene component was inserted. Then, the femoral component was inserted. The lug holes were aligned and the component was impacted into position. The knee was irrigated with Irrisept chlorhexadine solution. This was allowed to sit in the knee for 3 minutes. After the cement had finally cured, approximately 15min, the clamp was removed from the patella and the knee was taken through range of motion. The patella was tracking with a no-thumbs technique. The capsule was then reapproximated with a No. 1 Vicryl at multiple locations. The capsule was finally closed with a No. 2 Stratafix, barbed suture. The second dosing of 1g TXA was started. Deep tissues were then reapproximated with 0 Vicryl and 2-0 Vicryl. The skin was closed with a running 3-0 Monocryl in a subcuticular fashion. This was reinforced with skin glue. A Mepilex silver dressing was applied along with a [id number] RASHID wrap. A CryoCuff was applied. Abimbola was transferred to the hospital bed without difficulty an suffering no apparent complication. She has a good prognosis. Physical therapy will start today and without restrictions, weight-bearing as tolerated. Aspirin 81mg BID will be used for DVT prophylaxis.
--- NOTE | 2021-02-14 11:57 | W.ANESPOSTOP ---
Postoperative Evaluation Date, Time and Location Date Performed: 02/14/21 Time Performed: 11:57 Patient Location: Day Surgery Unit Vital Signs Most Recent Imported Vital Signs: Most Recent Vital Signs Temp Pulse Resp BP Pulse Ox 36.1 C L 55 L 16 134/71 98 02/14/21 10:37 02/14/21 10:37 02/14/21 10:37 02/14/21 10:37 02/14/21 10:37 Pain Score Most Recent Pain Score: Most Recent Pain Score Pain Level 0 02/14/21 10:37 Assessment Mental Status: Awake (Alert & Oriented to Patient Baseline) Airway and Respiratory Function: Patent airway with normal (patient baseline) respiratory exam Cardiovascular Function: Hemodynamically Stable Hydration Status: Adequately Hydrated Nausea & Vomiting: No Nausea or Vomiting Pain: Pt. Denies Any Pain Peripheral Nerve Block: Regional nerve block not resolved at time of post operative discharge (Adductor canal block, pt working with PT at bedside) Postoperative Comments::
--- NOTE | 2021-02-14 12:55 | PT.INIE ---
Date of service: 02/14/21 Time of Service: 11:55 PT Notes Visit Reasons: R TKR Physical Therapy Day Surgery Initial Evaluation Date: 02/14/2021 Referring Doctor: DUDLEY Garcia PT Orders: PT CONSULT: Status post Ortho surgery Precautions: Fall. Standard. WBAT on R LE. Patient Profile/Admitting Diagnosis: Abimbola is a 73-year-old female with degenerative joint disease of the right knee and is status post right total knee arthroplasty on postoperative day 0. 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 She is independent with all aspects of ADLs without the need for an assistive ambulatory device nor adaptive equipment prior to surgery. 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 Equipment Owned/DME: Walk-in shower, grab bars, raised toilet seat, front wheeled walker, single-point cane. Subjective: Reports some achiness in the inside part of her right knee. Denies headache, chest pain, and dizziness throughout. Objective: General Observation: RASHID wraps on right LE. Mental Status: Alert and oriented x4 Pain: 1/10 on the right knee ROM: Right Upper Extremity: Shoulder Flexion WFL. Shoulder abduction WFL. Elbow flexion WFL. Wrist flexion WFL. Opening and closing of hand WFL. Left Upper Extremity: Shoulder Flexion WFL. Shoulder abduction WFL. Elbow flexion WFL. Wrist flexion WFL. Opening and closing of hand WFL. Right Lower Extremity: Hip flexion WFL. Hip abduction WFL. Knee flexion 20-100 degrees. Knee extension -20 degrees. Ankle dorsiflexion WFL. Ankle plantarflexion WFL. Left Lower Extremity: Hip flexion WFL. Hip abduction WFL. Knee flexion WFL. Ankle dorsiflexion WFL. Ankle plantarflexion WFL. Strength: Right Upper Extremity: Shoulder flexors 4/5. Shoulder abductors 4/5. Elbow flexors 5/5. Elbow extensors 5/5. Voip Network Engineer strong. Left Upper Extremity: Shoulder flexors 4/5. Shoulder abductors 4/5. Elbow flexors 5/5. Elbow extensors 5/5. Voip Network Engineer strong. Right Lower Extremity: Hip flexors 4/5. Hip abductors 4/5. Knee flexors 3-/5. Knee extensors 3-/5. Ankle dorsiflexors 4/5. Ankle plantarflexors 4/5. Left Lower Extremity: Hip flexors 4/5. Hip abductors 4/5. Knee flexors 4/5. Knee extensors 4/5. Ankle dorsiflexors 4/5. Ankle plantarflexors 4/5. Sensation: Intact as to pain and pressure on bilateral lower extremities. Bed Mobility/Transfers: Sit to stand contact-guard assist Stand to sit contact-guard assist Bed to chair contact-guard assist Chair to bed contact-guard assist Gait: Patient tolerated level surface ambulation of 120 feet using front-wheeled walker with contact-guard assist and IV pole management. Swing-to gait pattern. Decreased jennifer. Patient did not report any increase in level of pain or discomfort throughout activity. Reports achiness in the anterior medial aspect of the right knee Balance: Static Sitting: Normal Dynamic Sitting: Normal Static Standing: Fair Dynamic Standing: Fair Special Tests: Mobility Limitations Standardized Measure [facility] AM-PAC 6 clicks Basic Mobility Inpatient Short Form: Raw Score: 20 CMS Score: 36% deficit Informed Consent/Education: Patient instructed in purpose of PT consult. Packet containing [] exercise protocol has been given to patient. Education and training on initial set of exercises that can be done at home have been completed with patient. Assessment: Abimbola demonstrates the need for assistive ambulatory device for all mobility ADL performance for safety, impairment in balance, unsteadiness on feet, and limitation in strength strength on the right knee due to postoperative status. Patient presents with clinical signs and symptoms consistent with current/admitting diagnoses that have resulted to mobility limitations, gait instability, generalized weakness, and impairment of motor control as demonstrated by the following impairment level findings: 1. Decreased strength to right knee major muscle groups 2. Impaired standing balance 3. Impaired activity tolerance Impairments are contributing to the following functional limitations: 1. Inability to safely ambulate without assistive device and contact-guard assist 2. Increase completion time for mobility ADL performance 3. Increased fall risk 4. Inability to negotiate steps alone safely Patient is assessed as a 28675 moderate complexity based on the following: History: Shaye is a 75-year-old female with impairment level findings, functional limitations, and past medical history as listed above Examination: Demonstrable impairment in strength, balance, and mobility level with underlying impairments and functional limitations as documented above Presentation: Evolving Decision Makin moderate complexity Goals: N/A. PT evaluation and 1-2 treatment sessions only for functional mobility training using recommended AD and for HEP instruction. Plan of Care/Treatment Plan: N/A. PT evaluation and 1-2 treatment session only for functional mobility training using recommended AD and for HEP instruction. DISCHARGE RECOMMENDATIONS: Home when medically cleared. Outpatient PT services in order to facilitate return to premorbid independent level at home alone. TREATMENT CODE/TIME: 86575 x 20 minutes, 68493 x 27 minutes beginning at 11:55 AM. Thank you very much for this referral. Jeannie Arthur PT, DPT, CLT [facility] [place], [place]
== END 2021-02-14 14:03 | disposition home or self-care (01) ==
PROVIDERS: PCP Family Medicine; Visit Provider Student in an Organized Health Care Education/Training Program
PROC: (CPT 27447; principal; 2021-02-14 07:30)
PROC: (CPT 20985; 2021-02-14 07:30)
DX: M17.11 Unilateral primary osteoarthritis, right knee (principal); E11.9 Type 2 diabetes mellitus without complications; I10 Essential (primary) hypertension; E78.5 Hyperlipidemia, unspecified; G47.33 Obstructive sleep apnea (adult) (pediatric)
CPT/HCPCS: 20985; 27447; C1776; 97162; 97530; J0690; J1040; J1885; J2001; J2250; J2370

== ENCOUNTER 2021-02-27 11:06 | Outpatient (CLI) | payer MEDICARE, SELFPAY ==
--- NOTE | 2021-02-27 10:15 | DI.RAD_ITS ---
Exam(s) XR KNEE RT 1V XR STANDING ALIGNMENT EXAM: XR STANDING ALIGNMENT and XR knee RT 1 V CLINICAL HISTORY: 1ST POST OP R TKA. TECHNIQUE: 2D digital imaging was performed. COMPARISON: CR XR STANDING ALIGNMENT from 01/27/2021 FINDINGS: There are bilateral total hip replacements. The patient has a right total knee replacement. The ort hopedic hardware appears in good position. No lucencies are seen in or about the orthopedic hardware . The left knee is well maintained. The ankles are well maintained. Vascular calcifications are se en in the soft tissues. IMPRESSION: Status post right TKR. DATA REPOSITORY: RADIATION DOSE DELIVERED:
== END 2021-02-27 11:07 | disposition home or self-care (01) ==
LOC: DIORS 11:06
PROVIDERS: PCP Family Medicine; Referring Provider Family Medicine; Visit Provider Physician Assistant
DX: Z96.651 Presence of right artificial knee joint (principal); Z47.1 Aftercare following joint replacement surgery
CPT/HCPCS: 73560; 77073

== ENCOUNTER → 2021-03-27 10:27 | Outpatient (BNVA) | payer MEDICARE, SELFPAY | PROVIDERS: PCP Family Medicine; Referring Provider Family Medicine | DX: Z47.1 Aftercare following joint replacement surgery (principal); Z96.651 Presence of right artificial knee joint; M17.12 Unilateral primary osteoarthritis, left knee ==

== ENCOUNTER → 2021-05-08 09:23 | Outpatient (BNVA) | payer MEDICARE, SELFPAY | PROVIDERS: PCP Family Medicine; Referring Provider Family Medicine; Visit Provider Student in an Organized Health Care Education/Training Program | DX: Z47.1 Aftercare following joint replacement surgery (principal); Z96.651 Presence of right artificial knee joint ==

== ENCOUNTER → 2021-07-07 09:57 | Outpatient (BNVA) | payer MEDICARE, SELFPAY | PROVIDERS: PCP Family Medicine; Referring Provider Family Medicine; Visit Provider Physician Assistant | DX: M17.12 Unilateral primary osteoarthritis, left knee (principal) | CPT/HCPCS: 20610; J1040 ==

== ENCOUNTER → 2021-11-21 10:21 | Outpatient (BNVA) | payer MEDICARE, SELFPAY | PROVIDERS: PCP Family Medicine; Referring Provider Family Medicine; Visit Provider Physician Assistant | DX: M17.12 Unilateral primary osteoarthritis, left knee (principal) | CPT/HCPCS: 20610; J1040 ==

== ENCOUNTER 2021-12-04 08:15 | Outpatient (REF) | payer MEDICARE, SELFPAY ==
[2021-12-04 16:42] LABS: HCT 43.8 % (36.0-46.0); HGB 14.4 g/dL (11.2-15.7); MCH 30.4 pg (27.0-33.0); MCHC 32.9 % (32.0-36.0); MCV 92 fL (80-95); MPV 9.3 fL (8.0-11.0); Platelet Count 264 10^3/uL (130-400); RBC 4.74 10^6/uL (3.93-5.22); RDW 13.5 % (11.7-14.6); WBC 10.06 10^3/uL (4.4-10.8)
[2021-12-04 17:02] LABS: BUN 17 mg/dL (7-18); CREATININE 0.7 mg/dL (0.55-1.02); Calcium 8.8 mg/dL (8.5-10.1); Calculated LDL 75 mg/dL (<100); Chloride 103 mmol/L (98-107); Cholesterol 152 mg/dL (<200); Glucose 139 mg/dL (74-106); HDL Cholesterol 57 mg/dL (40-60); Hemoglobin A1C 7.1 % (<5.7); Potassium 3.6 mmol/L (3.5-5.1); Sodium 142 mmol/L (136-145); TSH (W/Ref FT4) 1.52 uIU/mL (0.36-3.74); Triglyceride 102 mg/dL (<150)
[2021-12-06 10:29] LABS: Hepatitis C Ab w Rflx HCV PCR Negative (Negative)
== END 2021-12-04 08:16 | disposition home or self-care (01) ==
LOC: NCHCN 08:15
PROVIDERS: PCP Family Medicine; Visit Provider Family Medicine
DX: I10 Essential (primary) hypertension (principal); E11.9 Type 2 diabetes mellitus without complications; E04.1 Nontoxic single thyroid nodule; I25.810 Atherosclerosis of coronary artery bypass graft(s) without angina pectoris; Z11.59 Encounter for screening for other viral diseases
CPT/HCPCS: 80048; 80061; 85027; 86803; 83036; 84443

== ENCOUNTER 2021-12-13 15:10 | Outpatient (REF) | payer MEDICARE, SELFPAY ==
[2021-12-13 09:58] LABS: COMMENT (LAB VIEW ONLY) 88.67 mg/dL; Microalb ug/mg Crea 9.5 ug/mg Cr
== END 2021-12-13 15:11 | disposition home or self-care (01) ==
LOC: NCHCN 15:10
PROVIDERS: PCP Family Medicine; Visit Provider Family Medicine
DX: E11.9 Type 2 diabetes mellitus without complications (principal)
CPT/HCPCS: 82043; 82570

== ENCOUNTER 2022-02-15 09:26 | Outpatient (CLI) | payer MEDICARE, SELFPAY ==
--- NOTE | 2022-02-15 09:00 | DI.RAD_ITS ---
Exam(s) XR KNEE RT 2V AP,LAT EXAM: XR KNEE RT 2V AP,LAT INDICATION: annual f/u R TKA. COMPARISON: CR XR KNEE RT 3V AP,LAT,REINIER from 01/27/2021 CR XR KNEE RT 1V from 02/27/2021 CR XR STANDING ALIGNMENT from 02/27/2021 TECHNIQUE: 2D digital imaging was performed. Two views. FINDINGS: There has been no change in the total knee prosthesis. No abnormal bony lucencies are seen. DATA REPOSITORY: RADIATION DOSE DELIVERED:
== END 2022-02-15 09:27 | disposition home or self-care (01) ==
LOC: DIORS 09:27
PROVIDERS: PCP Family Medicine; Referring Provider Family Medicine; Visit Provider Student in an Organized Health Care Education/Training Program
DX: Z96.651 Presence of right artificial knee joint (principal); R60.0 Localized edema
CPT/HCPCS: 99214; 73560

== ENCOUNTER → 2022-03-15 08:55 | Outpatient (BNVA) | payer MEDICARE, SELFPAY | PROVIDERS: PCP Family Medicine; Referring Provider Family Medicine; Visit Provider Physician Assistant Surgical | DX: M17.12 Unilateral primary osteoarthritis, left knee (principal) | CPT/HCPCS: 20610; J1040 ==

== ENCOUNTER 2022-03-28 07:57 | Emergency (ER) | payer MEDICARE, SELFPAY ==
--- NOTE | 2022-03-28 08:00 | RT.EKG_ITS ---
APPROVED REPORT Exam: Resting ECG Reason for Exam: Lightheadedness Patient Location: E HR:94 bpm ECG Measurements Heart Rate 94 AXIS IN 169 P 6 QRSd 106 QRS -31 QT 358 T -19 QTc 448 Conclusion Sinus rhythm...normal P axis, V-rate 60- 99 Inferior infarct, old...Q >35mS, II III aVF sinus rhythm, left axis, consider partial intraventricular block
[2022-03-28 08:02] VITALS: BP 154/66; PULSE 100; RESP 18; TEMP 36.2; O2SAT 95
--- NOTE | 2022-03-28 08:11 | ED.GENADUL_ITS ---
Discharge Plan Disposition Patient Disposition: HOME Condition: Improving Discharge Details Clinical Impression: Diarrhea, Hypokalemia Primary Care Provider: Angie Alonzo ED Provider: Saurabh Huizar Home Meds and New Rx's Prescriptions: Continued tamoxifen 20 mg tablet 20 mg PO DAILY multivitamin [Multi-Day] 1 EACH tablet 1 tab PO DAILY calcium carbonate-vitamin D3 1 EACH tablet 1 tab PO BID lisinopril 40 mg tablet 40 mg PO DAILY atorvastatin 40 MG tablet 40 mg PO .QPM pantoprazole 20 MG tablet,delayed release (DR/EC) 20 mg PO BID Citrucel Sugar Free 1,191 GM powder 1 tbs PO DAILY potassium chloride 10 mEq Tablet Extended Release 10 meq PO DAILY furosemide 20 mg tablet 40 mg PO DAILY amlodipine 10 mg tablet 10 mg PO DAILY metoprolol tartrate 25 mg tablet 25 mg PO BID acetaminophen 500 mg capsule 1,000 mg PO Q8H PRN PRNQty: 90 0RF aspirin 81 mg Tablet,Delayed Release (Dr/Ec) 81 mg PO DAILY vitamin B complex Tablet 1 tab PO DAILY omega-3 fatty acids Capsule 1,250 mg PO DAILY Discharge Instructions Instructions: Acute Diarrhea (ED), Hypokalemia (ED) Additional Instructions: At this time your laboratory values do not reveal any obvious emergent process. Plenty of fluids to avoid dehydration, advance to bananas, rice, applesauce, tea, toast. [id number] Imodium as directed. Unfortunately you were unable to provide a stool sample during your over 5-hour ER visit. Please watch for new or worsening symptoms and return to the ER for any concerns. Lastly, please contact your primary care provider later today or tomorrow to discuss your ER visit need for outpatient reevaluation Medical Decision Making 76-year-old female reports loose stool and green diarrhea that began on Saturday, denies fever, abdominal pain, nausea or vomiting. States that symptoms are made worse after eating and because of this has had decreased p.o. intake. Now feeling generalized weakness, lightheadedness, concern for dehydration. Clinically she appears well, nontoxic. Plan is to obtain IV access, give IV fluids, routine screening laboratory values, and a stool sample if she is able to provide it. Laboratory values reveal no evidence of leukocytosis or anemia. Her potassium level is 3.3, she reports being on potassium supplementation. Will obtain EKG and give both p.o. and IV potassium. Creatinine is 1.2. She is receiving 1 L IV fluid and will provide another liter of this time lactated Ringer's. Troponin less than 50. Urinalysis pending, patient has not provided a urine sample thus far Patient is ambulatory without difficulty. Reports significant improvement of her overall generalized weakness and feeling lightheaded. I do believe this was secondary to hypovolemia. Patient is able to tolerate p.o. intake. She is unable to provide a stool sample, has not had a diarrhea bowel movement since 4 AM. Patient feels well enough to be discharged home. I do not believe that we need to wait for her to provide a stool sample given she has already been in the ER for over a total of 5 hours. If symptoms persist she can follow-up with her PCP or return to the ER. Discussed [id number]-[id number] Imodium and the brat diet as well as adequate hydration. Standard discharge and return precautions were provided. Patient understands, is agreeable to this plan, and has no additional questions or concerns upon discharge. This documentation was generated using [employer] system, please disregard any oddities of phrase or misspellings. Medical Records Medical records reviewed: Yes I reviewed the patient's medical records. Lab Data Lab results reviewed: Yes I reviewed the patient's lab results. Labs: Laboratory Tests Range/Units 03/28/22 03/28/22 03/28/22 09:40 09:40 09:40 WBC (4.4-10.8) 10^3/uL 10.26 RBC (3.93-5.22) 10^6/uL 4.63 Hgb (11.2-15.7) g/dL 13.9 Hct (36.0-46.0) % 41.4 MCV (80-95) fL 89 MCH (27.0-33.0) pg 30.0 MCHC (32.0-36.0) % 33.6 RDW (11.7-14.6) % 14.2 Plt Count (130-400) 10^3/uL 236 MPV (8.0-11.0) fL 8.7 Immature Gran % 0.4 Neutrophils % 69.9 Lymphocytes % 14.3 Monocytes % 14.0 Eosinophils % 0.8 Basophils % 0.6 Nucleated RBC % (0.0-0.3) % 0.0 Absolute Neutrophils (1.2-6.7) 10^3/uL 7.17 H Absolute Lymphocytes (1.2-3.4) 10^3/uL 1.47 Absolute Monocytes (0.1-0.8) 10^3/uL 1.44 H Absolute Eosinophils (0.0-0.7) 10^3/uL 0.08 Absolute Basophils (0.0-0.2) 10^3/uL 0.06 Sodium (136-145) mmol/L 137 Potassium (3.5-5.1) mmol/L 3.3 L Chloride (98-107) mmol/L 102 Carbon Dioxide (21.0-32.0) mmol/L 24.6 Anion Gap (3-11) mmol/L 10.4 BUN (7-18) mg/dL 38 H Creatinine (0.55-1.02) mg/dL 1.2 H Est GFR (CKD-EPI 2020) (mL/min/1.73m2) 46.33 Glucose (74-106) mg/dL 137 H Calcium (8.5-10.1) mg/dL 8.8 Total Bilirubin (0.2-1.0) mg/dL 0.5 AST (15-37) U/L 19 ALT (14-59) U/L 24 Alkaline Phosphatase (46-116) U/L 62 Troponin I (<or=60) ng/L < 50 Total Protein (6.4-8.2) g/dL 7.0 Albumin (3.4-5.0) g/dL 3.3 L Lipase (73-393) U/L 52 ECG Data Attestation: I personally reviewed and interpreted this ECG (s) as follows: Interpretation: Sinus rhythm, ventricular rate of 94. No STEMI. HPI General Mode of arrival: ambulatory . Date/Time Provider Initiated Documentation: 03/28/22 08:05 . Limitations to Documentation: no limitations . Information obtained by: patient . HPI Narrative: This is a 76-year-old female with a past medical history that includes will control diabetes, diverticulosis, CVA, hypertension, presenting to the ER for evaluation of green diarrhea that began on Saturday, now concern for potential dehydration and feeling slightly lightheaded. She denies recent illness or bad food exposure. No sick contacts. She denies fever, chest pain, shortness of breath, abdominal pain, nausea, vomiting, black tarry stools or bright red blood in her stools. She has not taken any [id number]-rew-[id number] medication for her symptoms. Denies recent antibiotic use. She reports decreased p.o. intake over the past few days because every time she eats she has diarrhea. Last episode of diarrhea was around 4 AM this morning. Related Data Home Medications Medication Instructions Recorded Confirmed calcium carbonate 600 mg-vitamin 1 tab PO BID 09/01/12 03/28/22 D3 5 mcg (200 unit) tablet multivitamin (Multi-Day tablet) 1 tab PO DAILY 09/01/12 03/28/22 atorvastatin 40 mg tablet 40 mg PO .QPM 08/16/16 03/28/22 methylcellulose (laxative) 1 tbs PO DAILY 08/16/16 03/28/22 (Citrucel Sugar Free oral powder) pantoprazole 20 mg tablet,delayed 20 mg PO BID 08/16/16 03/28/22 release lisinopril 40 mg tablet 40 mg PO DAILY 01/08/19 03/28/22 potassium chloride 10 mEq 10 meq PO DAILY 11/16/19 03/28/22 tablet,extended release furosemide 20 mg tablet 40 mg PO DAILY 01/04/20 03/28/22 amlodipine 10 mg tablet 10 mg PO DAILY 10/31/20 03/28/22 tamoxifen 20 mg tablet 20 mg PO DAILY 10/31/20 03/28/22 metoprolol tartrate 25 mg tablet 25 mg PO BID 02/08/21 03/28/22 acetaminophen 500 mg capsule 1,000 mg PO Q8H PRN PRN #90 caps 02/14/21 03/28/22 aspirin 81 mg tablet,delayed 81 mg PO DAILY 03/28/22 03/28/22 release omega-3 fatty acids 1,250 mg PO DAILY 03/28/22 03/28/22 vitamin B complex 1 tab PO DAILY 03/28/22 03/28/22 Previous Rx's Medication Instructions Recorded acetaminophen 500 mg capsule 1,000 mg PO Q8H PRN PRN #90 caps 02/14/21 Allergies Allergy/AdvReac Type Severity Reaction Status Date / Time Penicillins Allergy Unknown Pt unaware Verified 03/28/22 08:06 of allery or response General Stated Complaint: Nausea/Vomit/Diar ERIC: 3 Review of Systems Constitutional Constitutional: Reports fatigue, Denies fever(s) and Reports weakness (Generalized) ENT Ears, Nose, Mouth, and Throat: Denies neck pain Cardiovascular Cardiovascular: Denies chest pain and Denies dyspnea Respiratory Respiratory: Denies cough and Denies dyspnea Gastrointestinal Gastrointestinal: Denies abdominal pain, Denies melena, Denies hematochezia, Reports diarrhea, Denies nausea and Denies vomiting Genitourinary Genitourinary: Denies dysuria Musculoskeletal Musculoskeletal: Denies back pain and Denies neck pain Integumentary/Breasts Skin/Breast: Denies rash Neurologic Neurologic: Reports weakness (Generalized) Endocrine Endocrine: Reports fatigue Hematologic/Lymphatic Hematologic/Lymphatic: Denies easy bleeding and Denies easy bruising PFSH All Active Problems (Updated 03/28/22 @ 13:15 by DUDLEY Connolly) Diarrhea (Acute) Hypokalemia (Acute) History of total right knee replacement (TKR) (Acute 02/14/21) Arthritis of left knee (Chronic) Injection: 03/15/22; 11/21/21; 07/07/21; 02/14/21; 10/31/20; 02/01/20 Status post total hip replacement, left (Acute) Closed fracture of right distal radius (Acute) closed rectuction 06/25/2018 Squamous cell carcinoma in situ (Acute 09/13/14) Primary osteoarthritis of right hip (Acute 10/12/16) Neoplasm of skin (Acute 08/30/14) Atypical nevus (Acute 09/13/14) Primary osteoarthritis of left hip (Chronic) Medical History Adenomatous colon polyp Back pain Barretts esophagus Breast CA lt breast Controlled diabetes mellitus without long-term current use of insulin Diverticulosis Gastric hemorrhage History of stroke Hyperlipidemia Hypertension Intracranial hemorrhage, spontaneous intraparenchymal, associated with hypertension, acute 1997 Obstructive sleep apnea Osteoarthritis Pancreatitis 1982 Patellofemoral disorders, right knee Sciatica of left side 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 Wrist fracture, right Surgical History Biopsy of breast (12/04/16) right breast- benign Colonoscopy - IV Sedation EGD - IV Sedation 2009-William's 2012 and 2013-nl H/O local excision of skin lesion History of cholecystectomy History of heart surgery PT states CABG x 4 01/2019 [facility] [place] History of hysterectomy S/P lumpectomy, left breast Total replacement of hip right Family History Other Diabetes Hypertension Lung cancer Social History Smoking/Tobacco Use Status: Never Smoking risk assessment performed?: Yes Alcohol Intake: current Alcohol Intake frequency: holidays/special occasions only Drug use: Never Substance use type: does not use Current gender identity: female Do you feel safe at home: Yes Do you feel safe in your relationship?: Yes Exam Const General: cooperative, healthy appearing, comfortable and no acute distress Orientation: alert, awake and oriented x3 HENMT Head: normal to inspection, normocephalic and atraumatic Face and sinus: normal facial exam Mouth: moist mucous membranes Eyes Conjunctivae: conjunctivae normal Neck Neck: normal visual inspection, full ROM, trachea midline and supple Resp Effort & Inspection: normal respiratory effort and able to speak in complete sentences Auscultation: clear to auscultation bilaterally Cardio Rate: regular rate Rhythm: regular rhythm GI Inspection: normal to inspection Palpation: soft, not firm, no guarding, no pulsatile masses and nontender Auscultation: normal bowel sounds Back/Spine/Pelvis Back: No back tenderness Skin General skin exam: no rashes or lesions noted Neuro General: patient alert, patient awake, moves all extremities and no focal motor deficits Cognition: normal cognition Speech: speech normal Gait: normal gait Motor: muscle tone normal throughout Sensory Exam: no sensory deficits noted Extrem General: normal to inspection, full ROM and capillary refill normal Psych Appearance: grossly normal Mental Status: mental status grossly normal Course Vital Signs Vital signs: Vital Signs Temperature 36.2 C L 03/28/22 08:02 Pulse 100 H 03/28/22 08:02 Respiratory Rate 18 03/28/22 08:02 Blood Pressure 154/66 H 03/28/22 08:02 Pulse Oximetry 95 03/28/22 08:02 Temperature 36.2 C L 03/28/22 08:02 Temperature Source Temporal Artery Scan 03/28/22 08:02 Pulse 100 H 03/28/22 08:02 Respiratory Rate 18 03/28/22 08:02 Respiratory Effort Non-Labored 03/28/22 08:05 Blood Pressure 154/66 H 03/28/22 08:02 Blood Pressure Position Supine 03/28/22 08:02 Pulse Oximetry 95 03/28/22 08:02 Oxygen Delivery Method Room Air 03/28/22 08:02 Oxygen Flow Rate 0 03/28/22 08:02 Pain Level 0 03/28/22 08:02
[2022-03-28 09:47] LABS: Abs Immature Grans 0.04 10^3/uL (0.0-0.06); Absolute Basophil Count 0.06 10^3/uL (0.0-0.2); Absolute Eosinophil Count 0.08 10^3/uL (0.0-0.7); Absolute Lymphocyte Count 1.47 10^3/uL (1.2-3.4); Absolute Monocyte Count 1.44 10^3/uL (0.1-0.8); Absolute Neutrophil Count 7.17 10^3/uL (1.2-6.7); Basophils % 0.6; Eosinophils % 0.8; HCT 41.4 % (36.0-46.0); HGB 13.9 g/dL (11.2-15.7); Immature Grans % 0.4; Lymphocytes % 14.3; MCHC 33.6 % (32.0-36.0); MCV 89 fL (80-95); MPV 8.7 fL (8.0-11.0); Neutrophils % 69.9; Platelet Count 236 10^3/uL (130-400); RBC 4.63 10^6/uL (3.93-5.22); RDW 14.2 % (11.7-14.6); RDW-SD 45.8 fL; WBC 10.26 10^3/uL (4.4-10.8)
[2022-03-28 09:50] VITALS: BP 122/56; PULSE 81; RESP 20; TEMP 36.6; O2SAT 96
[2022-03-28] MEDS: Normal Saline 1,000 ML 1000 ML IV (09:50)
[2022-03-28 10:09] LABS: Troponin I < 50 ng/L (<or=60)
[2022-03-28 10:12] LABS: ALT 24 U/L (14-59); AST 19 U/L (15-37); Albumin 3.3 g/dL (3.4-5.0); Alkaline Phosphatase 62 U/L (46-116); Anion Gap 10.4 mmol/L (3-11); BUN 38 mg/dL (7-18); Bilirubin, Total 0.5 mg/dL (0.2-1.0); CO2 24.6 mmol/L (21.0-32.0); CREATININE 1.2 mg/dL (0.55-1.02); Calcium 8.8 mg/dL (8.5-10.1); Chloride 102 mmol/L (98-107); Estimated GFR 46.33 (mL/min/1.73m2); Glucose 137 mg/dL (74-106); Lipase 52 U/L (73-393); Potassium 3.3 mmol/L (3.5-5.1); Sodium 137 mmol/L (136-145)
[2022-03-28] MEDS: POTASSIUM CHLORIDE 10 MEQ/100 ML BAG 100 MEQ IVPB (11:02)
[2022-03-28] MEDS: Potassium Chloride 20 MEQ TABCR 40 MEQ PO (11:05)
[2022-03-28] MEDS: Lactated Ringers 1,000 ML 1000 ML IV (11:53)
[2022-03-28 12:03] VITALS: BP 119/86; PULSE 73; RESP 18; TEMP 36.6; O2SAT 98
== END 2022-03-28 13:23 | disposition home or self-care (01) ==
PROVIDERS: Emergency Provider Physician Assistant; PCP Family Medicine
DX: R19.7 Diarrhea, unspecified (principal); E87.6 Hypokalemia; I10 Essential (primary) hypertension; E11.9 Type 2 diabetes mellitus without complications; R42 Dizziness and giddiness
CPT/HCPCS: 80053; 83690; 93005; 96361; 96365; 99284; 81003; 84484; 85025; 93010; J3480

== ENCOUNTER 2022-06-11 14:14 | Outpatient (REF) | payer MEDICARE, SELFPAY ==
[2022-06-11 18:22] LABS: Anion Gap 10.5 mmol/L (3-11); BUN 24 mg/dL (7-18); CO2 27.5 mmol/L (21.0-32.0); CREATININE 0.8 mg/dL (0.55-1.02); Calcium 9.5 mg/dL (8.5-10.1); Chloride 102 mmol/L (98-107); Estimated GFR 75.37 (mL/min/1.73m2); Glucose 178 mg/dL (74-106); Potassium 4.3 mmol/L (3.5-5.1); Sodium 140 mmol/L (136-145)
== END 2022-06-11 14:15 | disposition home or self-care (01) ==
LOC: NCHCN 14:14
PROVIDERS: PCP Family Medicine; Visit Provider Family Medicine
DX: I10 Essential (primary) hypertension (principal)
CPT/HCPCS: 80048

== ENCOUNTER → 2022-07-23 08:01 | Outpatient (BNVA) | payer MEDICARE, SELFPAY | PROVIDERS: PCP Family Medicine; Referring Provider Family Medicine; Visit Provider Physician Assistant | DX: M17.12 Unilateral primary osteoarthritis, left knee (principal) | CPT/HCPCS: 20610; J1040 ==

== ENCOUNTER 2022-12-03 08:40 | Outpatient (REF) | payer MEDICARE, SELFPAY ==
[2022-12-03 16:23] LABS: Hemoglobin A1C 7.2 % (<5.7)
[2022-12-03 16:46] LABS: Anion Gap 12.6 mmol/L (3-11); BUN 19 mg/dL (7-18); CO2 25.4 mmol/L (21.0-32.0); CREATININE 0.7 mg/dL (0.55-1.02); Calcium 9.3 mg/dL (8.5-10.1); Chloride 104 mmol/L (98-107); Estimated GFR 87.92 (mL/min/1.73m2); Glucose 183 mg/dL (74-106); Potassium 3.6 mmol/L (3.5-5.1); Sodium 142 mmol/L (136-145)
[2022-12-03 16:59] LABS: Microalb ug/mg Crea 21.7 ug/mg Cr
== END 2022-12-03 08:41 | disposition home or self-care (01) ==
LOC: NCHCN 08:40
PROVIDERS: PCP Family Medicine; Visit Provider Family Medicine
DX: E11.9 Type 2 diabetes mellitus without complications (principal); I10 Essential (primary) hypertension
CPT/HCPCS: 80048; 82043; 82570; 83036

== ENCOUNTER 2023-01-28 15:31 | Outpatient (CLI) | payer MEDICARE, SELFPAY ==
--- NOTE | 2023-01-28 15:15 | DI.RAD_ITS ---
Exam(s) XR FOOT RT COMPLETE EXAM: XR FOOT RT COMPLETE CLINICAL HISTORY: R foot pain. TECHNIQUE: 2D digital imaging was performed. Three views. COMPARISON: No exams were available for comparison FINDINGS: BONES: No acute fracture is present. No bony destructive lesion is seen. Small heel spurs. JOINTS: No dislocation present. Mild degenerative changes. SOFT TISSUE: Vascular calcifications. IMPRESSION: No acute abnormality. DATA REPOSITORY: RADIATION DOSE DELIVERED:
== END 2023-01-28 15:32 | disposition home or self-care (01) ==
LOC: DIORS 15:31
PROVIDERS: PCP Family Medicine; Referring Provider Family Medicine; Visit Provider Student in an Organized Health Care Education/Training Program
DX: M79.671 Pain in right foot (principal); M17.12 Unilateral primary osteoarthritis, left knee; M21.41 Flat foot [pes planus] (acquired), right foot
CPT/HCPCS: 20610; 73630; J1040

== ENCOUNTER → 2023-02-13 01:17 | Outpatient (CLI) | payer MEDICARE, SELFPAY ==
--- NOTE | 2023-02-13 09:06 | DI.MRI_ITS ---
Exam(s) MR LOWER EXTREMITY RT WO EXAM: MR LOWER EXTREMITY RT WO CLINICAL HISTORY: assess the ligaments/tendons around the arch,pes planus rt foot, m21.41 TECHNIQUE: Multiplanar multisequence MRI was performed without intravenous contrast. COMPARISON: CR XR FOOT RT COMPLETE from 01/28/2023 FINDINGS: BONES/JOINTS: No fracture or contusion pattern. Edema in the medial talus consistent with reactive e nakita.. No suspicious bone lesions identified. The talar dome is smooth. The ankle mortise is maintai obed. No joint effusion is present. Degenerative changes of the talonavicular joint with mild superior spurring and distended superior joint recess. Mild degenerative changes also seen at the tarsal met atarsal joints. LIGAMENTS: There is abnormal thickening in discontinuity as well as edema within the deltoid ligament and spring ligament consistent with severe partial tear. The tibiofibular and calcaneofibular ligaments are intact. The talofibular ligaments are intact. The syndesmosis is unremarkable. Sinus tarsi fluid which could be seen with sinus tarsi syndrome. MUSCULOTENDINOUS STRUCTURES: Achilles tendon: Unremarkable. Small enthesophyte. Plantar fascia: Mild thickening. No evidence of tear. Tiny plantar spur. Anterior Extensor tendons: Unremarkable. Posterior Tibialis: Fluid in the tendon sheath. Some intermediate signal distally. Flexor Digitorum longus: Unremarkable. Flexor Hallucis longus: Unremarkable. Peroneus longus: Unremarkable. Peroneus brevis:Unremarkable. SOFT TISSUES: Edema and anteromedial ankle. IMPRESSION: Significant edema and discontinuity of fibers of the deltoid ligament and spring ligament and adjacen t soft tissues, consistent with severe partial tear. Tenosynovitis of the tibialis posterior. Fluid in the sinus tarsi. DATA REPOSITORY:
--- NOTE | 2023-02-13 13:01 | DI.VRAD_ITS ---
PROCEDURE INFORMATION: Exam: MR Right Lower Extremity Other Than Joint Without Contrast; Foot Exam date and time: 02/13/2023 8:41 AM Age: 77 years old Clinical indication: Pain; Foot; Right TECHNIQUE: Imaging protocol: Magnetic resonance imaging of the right lower extremity without contrast. Exam focused on the foot. COMPARISON: CR XR FOOT RT COMPLETE 01/28/2023 3:41 PM FINDINGS: Bones/joints: Degenerative arthritis in the talonavicular articulation with distended joint recess extending superiorly. Reactive marrow edema in the medial anterior talus LIGAMENTS: Lisfranc ligament: Unremarkable. No evidence of tear. Spring ligament: Thickening and increased T2 signal the superomedial band of the spring ligament and deltoid ligament suspicious for partial tearing. TENDONS: Flexor tendons of foot: Unremarkable. No evidence of tear. Tibialis posterior tendon: Tenosynovitis of the posterior tibialis tendon. Peroneal tendons: Unremarkable as visualized. Extensor tendons of foot: Unremarkable. No evidence of tear. Tibialis anterior tendon: Unremarkable as visualized. Tarsal canal (Sinus tarsi): Fluid replacing most of fat signal in the tarsal sinus. This can be seen in sinus tarsi syndrome. Tarsal tunnel: Unremarkable. Soft tissues: Subcutaneous edema medial ankle and hindfoot. Plantar fascia: Thickening of the posterior 4.5 cm of the plantar fascia consistent with sequelae of chronic plantar fasciitis. IMPRESSION: 1. Tenosynovitis posterior tibialis 2. Spring ligament injury 3. Reactive edema medial talus 4. Sequelae of chronic plantar fasciitis. Dictated and Authenticated by: Sima Bernal MD. Ordering:EVERARDO Gonzalez MD
== END ==
PROVIDERS: PCP Family Medicine; Visit Provider Student in an Organized Health Care Education/Training Program
DX: M21.41 Flat foot [pes planus] (acquired), right foot (principal); M76.821 Posterior tibial tendinitis, right leg; S93.421A Sprain of deltoid ligament of right ankle, initial encounter; X58.XXXA Exposure to other specified factors, initial encounter
CPT/HCPCS: 73718

== ENCOUNTER 2023-06-07 20:13 | Outpatient (REF) | payer MEDICARE, SELFPAY ==
[2023-06-07 20:09] LABS: HCT 39.5 % (36.0-46.0); HGB 12.8 g/dL (11.2-15.7); MCH 28.7 pg (27.0-33.0); MCHC 32.4 % (32.0-36.0); MCV 89 fL (80-95); MPV 9.5 fL (8.0-11.0); Platelet Count 214 10^3/uL (130-400); RBC 4.46 10^6/uL (3.93-5.22); WBC 7.52 10^3/uL (4.4-10.8)
[2023-06-07 20:27] LABS: Anion Gap 9.7 mmol/L (3-11); BUN 21 mg/dL (7-18); CO2 26.3 mmol/L (21.0-32.0); CREATININE 0.8 mg/dL (0.55-1.02); Calcium 9.8 mg/dL (8.5-10.1); Chloride 105 mmol/L (98-107); Glucose 159 mg/dL (74-106); NT-proBNP 172 pg/mL (<300); Potassium 3.7 mmol/L (3.5-5.1); Sodium 141 mmol/L (136-145)
[2023-06-07 20:42] LABS: Hemoglobin A1C 7.7 % (<5.7)
== END 2023-06-07 20:14 | disposition home or self-care (01) ==
LOC: NCHCN 20:13
PROVIDERS: PCP Family Medicine; Visit Provider Family Medicine
DX: E11.9 Type 2 diabetes mellitus without complications (principal); I50.9 Heart failure, unspecified; Z87.19 Personal history of other diseases of the digestive system
CPT/HCPCS: 80048; 85027; 83036; 83880

== ENCOUNTER → 2023-06-20 10:39 | Outpatient (BNVA) | payer MEDICARE, SELFPAY | PROVIDERS: PCP Family Medicine; Referring Provider Family Medicine | DX: M17.12 Unilateral primary osteoarthritis, left knee (principal) | CPT/HCPCS: 20610; J1040 ==

== ENCOUNTER → 2023-12-05 13:54 | Outpatient (BNVA) | payer MEDICARE, SELFPAY | PROVIDERS: PCP Family Medicine; Referring Provider Family Medicine; Visit Provider Student in an Organized Health Care Education/Training Program | DX: M17.12 Unilateral primary osteoarthritis, left knee (principal) | CPT/HCPCS: 20610; J1010 ==

== ENCOUNTER 2024-03-11 15:10 | Outpatient (REF) | payer MEDICARE, SELFPAY ==
--- NOTE | 2024-03-11 10:50 | SKI_PTH ---
PATIENT: Abimbola Dumas LOC: [facility]#:[id number] AGE/SX: 78/F ROOM: RE03/11/[address]: Angie Alonzo : 1945 BED: DIS: 03/11/2024 SPEC #: [id number] RECD: 03/11/24 17:41 STATUS: LEROY SALDANA #: [id number] YOVANI: 03/11/24 10:[address]: Angie Alonzo DEPT: Surgical Specimen RECD BY: Susie Chavez Tissues: 1 - SKIN BIOPSY(SHAVE/PUNCH) Procedures: SKIN LEVEL 4 Comments: [id number]
--- OUTSIDE RECORDS SUMMARY | 2024-03-11 15:13 | XMS_ITS | Encounter Summary ---
Author Organization [facility] Address [facility] [place] [address] Care Team Providers Care Fleet Operations Manager Name Role Phone Angie Alonzo MD Primary Care Provider [phone] Encounter Details Date Type Department Care Team (Late st Contact Info) Description 06/27/2023 11:20 AM EST - 06/27/2023 2:57 PM EST Surgery [facility] [place] [id number] Crystal Hess MD [facility] [place] [address] ARTHRODESIS, TRIPLE (WRVU 13.42) Social History Tobacco Use Types Packs/Day Years Used Date Smoking Tobacco: Never Smokeless Tobacco: Never Alcohol Use Standard Drinks/Week Comments Never 0 (1 standard drink = 0.6 oz pur e alcohol) very occasional DH IPV Inpatient Questions Answer Date Recorded Does Anyone Try to Keep You From Having Contact with Others or Doing Things Outside Your Home? no 06/27/2023 Feels Threatened by Someone no 06/01 Feels Unsafe at Home or Work/School no 06/27/2023 Physical Signs of Abuse Present no 06/27/2023 Sex and Gender Information Value Date Recorded Sex Assigned at Not on file Gender Identity Not on file Sexual Orientation Not on file documented as of this encounter Last Filed Vital Signs Vital Sign Reading Time Taken Comments Blood Pressure 153/68 06/27/2023 11:10 AM EST Pulse 59 06/27/2023 11:10 AM EST Temperature 36.7 ??C (98.1 ??F) 06/27/2023 9:48 AM ES T Respiratory Rate 19 06/27/2023 11:10 AM EST Oxygen Saturation 98% 06/27/2023 11:10 AM EST Inhaled Oxygen Concentration - - Weight 91.6 kg (202 lb) 06/27/2023 9:48 AM EST Height 167.6 cm (5' 6) 06/27/2023 9:48 AM EST Body Mass Index 32.6 06/27/2023 9:48 AM EST documented in this encounter Discharge Instructions * Discharge Instructions* Judi Zhang RN - 06/27/2023 9:41 AM EST General Anesthesia Discharge Instructions Go home and rest. You may be sleepy for several hours. Take it easy as sudden position changes may cause nausea and/or dizziness. Use caution on stairs. Do not smoke if you are alone. Follow a light to regular diet as tolerated today. If nausea occurs, start with clear liquids, and progress slowly to a regular diet. Do not drive, operate machinery, drink alcoholic beverages or make any legal decisions after havinggeneral anesthesia. The medications given change your reaction time and alter your judgement. IV site -- slight redness is normal, you can use warm compresses. If tenderness and redness increases or foul drainage occurs, please contact your M.D. Patients who have had endotracheal tubes/LMA (tubes used by the anesthesia staff to ensure a safe airway during your operation) may have a sore throat. This is normal and cold liquids or soothing lozenges will help ease this discomfort. Narcotic pain medications can cause constipation, please ask the surgeons office what they recommend for prevention of this. Some non-pharmaceutical means of constipation prevention include increasing intake of fluids, eating more fruits and vegetables as well as fruit juices. If you are uncomfortable and/or unable to urinate within 8 hours of discharge and it is before 5 pm, call your physician. If it is after 5pm go to the closest emergency room or call the hospital paper and pulp mill operator at [phone] and ask for physician manager semiconductor covering for your physician. Questions or problems after 5pm or on a weekend: Call the [facility] paper and pulp mill operator at and ask for the physician manager semiconductor covering for your doctor. At 945am you received 975 mg of acetaminophen- Your next dose should not be taken before 8 hours have passed or as advised by your provider. Next dose not before- 545pm You should not take more than a total of 3000 mg of acetaminophen in a 24 hour period. You received an nsaid medication at 245 pm. Your next dose should not be taken before 845 pm today. Lower Extremity Nerve Block Nerve blocks affect many types of nerves. The affected nerves control movement, pain, and normal sensation. This causes feelings such as: Weakness Numbness Tingling Heaviness A feeling that your leg or foot has fallen asleep. A nerve block can last from about 2 to 48 hours, depending on the medications used. Usually the weakness wears off first, then you will feel a numb or tingly sensation. Finally, the pain may come back. This can happen in any order. If you continue to feel the effects of the nerve block for longer than 48 hours, please call the Anesthesiology department at . Pain Medication If needed, your surgeon will give you a prescription for pain medication. Start taking this medication before the nerve block wears off. Nerve blocks sometimes wear off during the night. It is a goodidea to take your pain medicine as prescribed before going to sleep so you won't wake up with pain.The idea is to have pain medicine in your body before the nerve block wears off. To help prevent nausea, eat something before taking the pain medicine. Once a nerve block starts to wear off, it is usually completely gone within 60 minutes. It is important to have pain medicine in your system before the block wears off completely. Helpful tips to protect the part of your body that is numb. After a nerve block, you cannot feel pain, pressure, or extremes in temperature. Because your leg or foot is numb, it is more at risk for injury. Therefore.... While you are awake, try to change positions of your leg or foot often. This will help you avoid putting too much pressure on the limb for long periods of time. While sleeping, pad the blocked limb with pillows to avoid placing too much pressure on the limb. If you have a cast or a tight dressing, check the color of your toes every couple of hours. Call your doctor if any look discolored. Ask your family or support people to help with the above hints. QUESTIONS? Please call the Anesthesiology department at with concerns or after hours and ask for the anesthesiologist manager semiconductor. * Patient Instructions* Dewayne Cerna MD - 06/27/2023 11:28 AM EST Orthopedic Foot and Ankle discharge instructions Activity: Please keep affected extremity elevated and ice as needed. Dressing or splint: soft splint WEIGHT BEARING: Non weight bearing Provide patient with crutches and crutch instruction if needed Do not drive until instructed to do so by your surgeon's team Pain Medication Protocol: Tramadol 50 mg every 6 hours as needed. Take this medication with a small amount of food to help prevent nausea. This medication is a short acting narcotic pain medication. Sawl-lcd-taugpld Tylenol (acetaminophen) should be taken in addition to narcotic. This will allow the narcotic to work more effectively, and may make it easier to discontinue the narcotic sooner. Follow the instructions on the Tylenol package for dosage and frequency. Do not exceed 3000mg acetaminophen per day. You may take NSAIDs including ibuprofen, Motrin or Aleve per package instructions in addition to the tylenol for pain control. Do not take if directed by your PCP or other physician to not take NSAIDs for another medical condition. Anti-Coagulation Plan: 1) Aspirin - You have been discharged on enteric-coated Aspirin 81 mg by mouth twice daily. Continue this for 6 weeks from surgery or until your mobility improves and surgeon instructs you to stop. Take with meals to minimize gastrointestinal (stomach) irritation. This is to help prevent a blood clot. Post-operative constipation: Constipation is common after surgery. Drinking plenty of water is important in helping to prevent this. An bngc-vuj-oktlobg stool softener can also help prevent or treat constipation. Colace 100mg tablets can be obtained at most pharmacies and can be taken 2 - 3 times a day. The pain medication may also cause nausea. If you have significant nausea, we can provide a prescription for an anti-nausea medication. Cryotherapy: Ice is a highly effective anti-inflammatory in the postoperative period. It helps reduce inflammation and pain. Apply an ice pack to the surgical area for 20-30 minutes every 1-[address] ice directlyon the skin as this can cause frostbite; place a towel/rag between the ice and skin. Specific cooling machines have been designed to help with icing. Your physical therapist may use this during therapy sessions Dressing/Wound Care: 1. Suture/staple removal 2 weeks post-op (07/09). 2. Leave the operative dressing on until follow-up. Splint Care: Keep the cast or splint in place until your follow-up with Orthopedics. Keep the cast/splint clean and dry. It is easiest to sponge bathe, but if you must bathe, protect the cast/splint with a plastic bag high above the cast or splint and secure with adhesive tape. Do not submerge the cast in water at anytime. If the cast accidently gets wet, call the office immediately to have it replaced. A wet cast can cause severe skin and wound problems. Shower/Bath: You may shower BUT use a waterproof dressing (plastic bag taped at the top) to cover the incision/dressing. DO NOT submerge the wound. Remember you MUST to observe your weight bearing status and activity limitations when you shower so use a chair or bench for balance if you are unable to safely stand. A sponge bath may be easier. If your splint becomes wet please call our office as it will need to be replaced Call our office if you develop: Fever greater than 100.5 Severe nausea or vomiting Increasing pain that is not controlled by pain medications Increasing redness, swelling, or drainage from incisions Change in sensation Future Appointments Date Time Provider Department Center 07/09/2023 12:30 PM [facility] DX ROOM 1 Xray [facility] Rad 07/09/2023 1:30 PM Rene Tubbs PA [facility] If you have questions or concerns please contact our [facility] office Saturday through Saturday, 8 AM - 5 PM, at . If it is after 5 PM or on the weekend, please call and ask to speak with the Orthopedic resident on-call. documented in this encounter Medications at Time of Discharge Medication Sig Dispensed Refills Start Date End Date OneTouch Ultra Test Strip USE TO TEST ONCE A DAY 04/24/2023 MULTIVITAMIN ORAL 1 tablet. 09/01/2012 Vassar-3 Fatty Acids 100 mg Tablet, Chewable daily. 03/28/2022 b complex vitamins Tablet 1 tablet. 03/28/2022 azelastine (ASTELIN) 137 mcg (0.1 %) Aerosol, [place] SPRAY 1 SPRAY INTO BOTH NOSTRILS ONCE A DAY 12/11/2022 cetirizine (ZyrTEC) 10 mg tablet daily. 12/12/2022 calcium-vitamin D3 600 mg-5 mcg (200 unit) Tablet 1 tablet. 09/01/2012 vitamin B complex (B COMPLEX ORAL) Take by mouth daily as needed. lisinopriL (Prinivil;Zestril) 40 mg Tablet TAKE ONE TABLET BY MOUTH ONCE DAILY 06/22/2019 amLODIPine (NORVASC) 10 mg Tablet Take 5 mg by mouth daily. furosemide (LASIX) 20 mg Tablet 40 mg. 3 03/25/2019 potassium chloride (K-DUR/KLOR-CON) 20 mEq Tab Sust.Rel. Particle/Crystal 10 mEq. 4 02/23/2019 acetaminophen (TYLENOL) 500 mg Tablet Take 2 tablets by mouth every 6 hours. 03/09/2019 metoprolol tartrate (LOPRESSOR) 25 mg Tablet Take 1 tablet by mouth 2 times daily. 60 tablet 2 03/09/2019 METHYLCELLULOSE (CITRUCEL ORAL) Take by mouth daily as needed. pantoprazole (PROTONIX) 20 mg Tablet, Delayed Release (E.C.) Take 20 mg by mouth daily. atorvastatin (LIPITOR) 40 mg Tablet Take 40 mg by mouth daily. blood-glucose meter (FREESTYLE) Kit 1 each by [employer] [facility] [employer].(Non-Drug; Combo Route) route as needed for Other. aspirin 81 mg Tablet, Chewable Take 81 mg by mouth daily. traMADoL (Ultram) 50 mg tablet Take 1 tablet by mouth every 6 hours as needed for Pain. 15 tablet 06/27/2023 07/09/2023 empagliflozin (Jardiance) 10 mg tablet daily. 01/28/2023 09/09/2023 documented as of this encounter Progress Notes * Blu Ny RN - 06/27/2023 4:15 PM EST Patient able to drink, eat, and void prior to D/C. Dressing is CDI; no numbness or tingling reported. Discharge instructions and medications reviewed with patient and escort. All questions answered and written copy sent home with patient. Patient ambulated to car for discharge accompanied by [facility] staff member. * Sosa Severino RN - 06/27/2023 10:47 AM EST Pt verbalizes having fungal infection on right big toe. Pt was treated with antifungal medications about August 2022. Pt states her oncologist stated antifungal medication interacted with cancer medication. Anesthesia aware and waiting for Dr. Hess to visualize pt's toe prior to surgery. documented in this encounter H&P Notes * Crystal Hess MD - 06/27/2023 11:02 AM EST Patient Name: Abimbola Dumas Patient Age: 77 y.o. Birthdate: 1945 Admit date: 06/27/2023 Attending Physician: Crystal Hess MD ORTHOPEDIC PRE-OPERATIVE HISTORY AND PHYSICAL for ADMISSION, OBSERVATION OR PROCEDURE Date of : 1945 Age: 77 y.o. PCP: Angie Alonzo MD Presenting Diagnosis/Chief Complaint: right PPTD stage 3 History of Present Illness: Abimbola Dumas is a 77 y.o. female who presents for pre-operative examination. Please see Dr. Hess's note for full details of the patient's specific problem. Patient denies any changes since last seen inclinic. Denies fevers, chills, headache, dizziness, chest pain, or shortness of breath. Review of Systems: complete 10 system ROS performed with pertinent findings below. Pertinent items are noted in HPI. PMHx: Patient Active Problem List Diagnosis Code Malignant neoplasm of upper-inner quadrant of left breast in female, estrogen receptor positive C50.212, Z17.0 CAD (coronary artery disease) I25.10 S/P CABG (coronary artery bypass graft) Z95.1 Breast calcifications on mammogram R92.1 Past Medical History: Diagnosis Date Antiplatelet or antithrombotic long-term use 81 mg aspirin Arthritis Breast cancer Cancer breast cancer two years ago CPAP (continuous positive airway pressure) dependence uses every night Diabetes pre-diabetic. diet and exercise Diabetes mellitus pre-DM GERD (gastroesophageal reflux disease) Heart valve disease High blood pressure stable on meds Hypertension Peptic ulcer disease years ago Status post radiation therapy breast cancer Stroke 20 years ago had a stroke. no deficits Vertigo a bit unsteady at times. does not use a cane Past Surgical History: Procedure Laterality Date BREAST BIOPSY BREAST LUMPECTOMY Left 07/2017 BREAST SURGERY R lumpectomy, benign BREAST SURGERY Right ? patient states benign surgery years ago CHOLECYSTECTOMY HYSTERECTOMY oophorectomy IR CHEST TUBE PLACEMENT LEFT 04/10/2019 IR Chest Tube Placement Left 04/10/2019 Adis Oliveira MD [facility] INTERVENTIONL RAD JOINT REPLACEMENT hip right ORTHOPEDIC SURGERY R hip OVARY REMOVAL PRO ADJACENT TISSUE TRANSFER/REARRANGE TRUNK 10.1-30.0CM Left 07/04/2017 ADJ.TISSUE TRANSFER, REARRANGEMENT, TRUNK,10.1 TO 30 SQ CM (WRVU 8.78) performed by Ashley Farooq MD at [facility] OR [facility] BX/REMV, LYMPH NODE, DEEP AXILL Left 07/04/2017 BIOPSY OR EXCISION OF LYMPH NODE(S), OPEN, DEEP AXILLARY NODE(S) (WRVU 6.43) performed by Ashley Farooq MD at [facility] OR [facility] CABG, ARTERIAL, SINGLE N/A 03/05/2019 @CABG, USING ARTERIAL GRAFT;SINGLE ARTERIAL GRAFT (WRVU 33.75) performed by Ryan Lynch MD at [facility] OR [facility] CABG, ARTERY-VEIN, THREE N/A 03/05/2019 @CABG; 3 VENOUS GRAFTS & ARTERIAL GRAFT (WRVU 10.49) performed by Ryan Lynch MD at [facility] OR [facility] ENDOSCOPY W/VIDEO-ASST VEIN HARVEST, CABG N/A 03/05/2019 ENDOSCOPIC HARVEST VEIN(S) FOR CABG (WRVU 0.31) performed by Ryan Lynch MD at [facility] OR PRO INTRAOP SENTINEL LYMPH ID W/DYE INJECTION Left 07/04/2017 INTRAOPERATIVE ID (MAPPING) SENTINEL LYMPH NODE,INCLUDES INJECTION (WRVU 2.5) performed by Ashley Farooq MD at [facility] MAIN OR PRO MASTECTOMY PARTIAL Left 07/04/2017 MASTECTOMY PARTIAL (WRVU 10.13) performed by Ashley Farooq MD at [facility] MAIN OR Home Medications: Medications Prior to Admission Medication Sig Dispense Refill Last Dose MULTIVITAMIN ORAL 1 tablet. Vassar-3 Fatty Acids 100 mg Tablet, Chewable daily. b complex vitamins Tablet 1 tablet. empagliflozin (Jardiance) 10 mg tablet daily. 06/22/2023 pantoprazole (PROTONIX) 20 mg Tablet, Delayed Release (E.C.) Take 20 mg by mouth daily. 06/27/2023 aspirin 81 mg Tablet, Chewable Take 81 mg by mouth daily. 06/26/2023 azelastine (ASTELIN) 137 mcg (0.1 %) Aerosol, [place] SPRAY 1 SPRAY INTO BOTH NOSTRILS ONCE A DAY cetirizine (ZyrTEC) 10 mg tablet daily. calcium-vitamin D3 600 mg-5 mcg (200 unit) Tablet 1 tablet. vitamin B complex (B COMPLEX ORAL) Take by mouth daily as needed. lisinopriL (Prinivil;Zestril) 40 mg Tablet TAKE ONE TABLET BY MOUTH ONCE DAILY amLODIPine (NORVASC) 10 mg Tablet Take 5 mg by mouth daily. furosemide (LASIX) 20 mg Tablet 40 mg. 3 potassium chloride (K-DUR/KLOR-CON) 20 mEq Tab Sust.Rel. Particle/Crystal 10 mEq. 4 acetaminophen (TYLENOL) 500 mg Tablet Take 2 tablets by mouth every 6 hours. metoprolol tartrate (LOPRESSOR) 25 mg Tablet Take 1 tablet by mouth 2 times daily. 60 tablet 2 METHYLCELLULOSE (CITRUCEL ORAL) Take by mouth daily as needed. atorvastatin (LIPITOR) 40 mg Tablet Take 40 mg by mouth daily. blood-glucose meter (FREESTYLE) Kit 1 each by [employer] [facility] [employer].(Non-Drug; Combo Route) route as needed for Other. Allergies: Allergies Allergen Reactions Penicillins PAT Penicillin Allergy Risk Assessment 06/04/2023: Low risk penicillin allergy. OK to receive full dose of cefazolin, cefuroxime, or any 3rd or 4th+ generation cephalosporin. Family History: Non contributory Family History Problem Relation Age of Onset Lung Cancer Sister smoker Breast Cancer Neg Hx Ovarian Cancer Neg Hx Social History: Social History Socioeconomic History Marital status: Spouse name: Not on file Number of children: Not on file Years of education: Not on file Highest education level: Not on file Occupational History Not on file Tobacco Use Smoking status: Never Smokeless tobacco: Never Vaping Use Vaping Use: Never used Substance and Sexual Activity Alcohol use: Never Comment: very occasional Drug use: No Sexual activity: Not on file Other Topics Concern Not on file Social History Narrative Not on file Social Determinants of Health Financial Resource Strain: Not on file Food Insecurity: Not on file Transportation Needs: Not on file Physical Activity: Not on file Intimate Partner Violence: Not on file Housing Stability: Not on file Physical Exam: VITALS: Temperature Temp: 36.7 ??C (98.1 ??F) Heart Rate Heart Rate: 73 Blood Pressure BP: 181/80 Respiratory Rate Resp: 18 SpO2 SpO2: 97 % No intake/output data recorded. General: alert, appears stated age, and cooperative Pulmonary: equal, clear breath sounds bilaterally and no crepitus Cardiovascular: Regular rate and rhythm Right foot with hallux onychomycosis but no evidence of cellulitis or active infection Assessment and Plan: 77 y.o. female with the above problem, plan to proceed to OR with Dr. Deshawn Coe triple arthrodesis and possible Delphine procedure. Patient Pharmacy for outpatient medications: [facility] Pain medications to prescribe:Tramadol, ibuprofen and tylenol alternating WB status: NWB x 6 weeks Postop Dressing: Splint - leave in place until clinic follow up DVT prophylaxis: ASA 81 mg BID x 6 weeks Follow up: 2 week(s) documented in this encounter Miscellaneous Notes * Op Note - Crystal Hess MD - 06/27/2023 12:23 PM EST [facility] Operative Note Patient Name: Abimbola Dumas : [id number] MR#: [id number] Case Date: 06/27/2023 Surgeon: Surgeon(s) and Role: * Crystal Hess MD - Primary * Dewayne Cerna MD - Resident - Assisting Preoperative diagnosis: Right stage III posterior tibial tendon dysfunction Postoperative diagnosis: Right stage III posterior tibial tendon dysfunction Principal procedure: Right triple arthrodesis Anesthesia: General Estimated Blood Loss: 7 mL Specimens removed during surgery: None Drains: * No LDAs found * Surgical Closure: Primary Closure - skin incision is completely closed without any wires, ana rosa, drains or other devices Disposition: awakened from anesthesia, extubated and taken to the recovery room in a stable condition, having suffered no apparent untoward event. Condition: doing well without problems (Please see the Surgical Encounter Summary for any Implant and Specimen details pertinent to this patient.) HPI/Surgical Indications: The patient is a 77-year-old female who has had worsening flatfoot deformity with pain particularly in the hindfoot that is failed conservative management including bracing,activity modification and analgesics. After discussion with the patient the risks and benefits of op erative intervention, the patient wished to proceed with surgical intervention. Specific risks discussed with the patient include the risk of infection, bleeding, damage to adjacent structures, malunion, nonunion, blood clots and need for further procedures. The patient signed an informed consent. Procedure Description: The patient was brought to the operating room and a surgical timeout was performed. The surgical site which been marked in the preoperative area the patient's consent was matched to the consent in the operative suite. The entire team was in accordance as the appropriate side,site, the patient and procedure. General anesthesia was induced and the patient was positioned in the supine position with a bump underneath the right hip. The right lower extremity was prepped and draped in the usual sterile manner. The leg was elevated, exsanguinated and tourniquet was elevated to 250 mmHg. A curvilinear incision was made over the lateral aspect of the midfoot going from the tip of the fibula angling towards the base of the fourth metatarsal. Dissection was carried sharply through skin and bluntly through subcutaneous tissues down to the extensor digitorum brevis tendon which was dissected off of the anterior calcaneus and calcaneocuboid joint. The subtalar joint was entered and the cervical ligaments were incised. Once the subtalar joint was distracted, I denuded the cartilage and subchondral bone from the joint. I then turned my attention to the calcaneocuboid jointthrough the same incision and denuded the joint of cartilage and subchondral bone. I then made a curvilinear incision over the medial aspect of the midfoot. Dissection was carried out sharply throughskin and bluntly through subcutaneous tissues going from the tip of the medial malleolus over the navicular pole. Dissection was carried out sharply through the medial capsule and down to the talonavicular joint. I then dissected subperiosteally dorsally and plantarly to fully expose the talonavicular joint. A joint distractor was used to distract the joint and the joint was denuded of cartilage and subchondral bone. It then returned to each of the 3 joints to denude the joints of cartilage andsubchondral bone that was now additionally visualized. After copious irrigation and fenestration ofthe subchondral bone I packed all 3 joints with Augment rhPDGF hydrating AlloMatrix. I then began my fixation with the subtalar joint. Making sure to take the hindfoot out of valgus and restore the height of the sinus Tarsi, I fixated the subtalar joint with 2 6.5 mm headed partially-threaded screws placed percutaneously from the heel into the talus. I then fixated the talonavicular joint making sure to plantarflex the first ray to make sure that the forefoot was neutral. I fixated this initially with 2 interfragmentary 4.0 mm cannulated headed screws one placed medially and one placed laterally across the joint. I then augmented fixation with a medially based plate. Finally, I fixated the calcaneocuboid with a 6 hole laterally based compression plate which had excellent fixation. I then assessed the ankle range of motion and found that although I was able to get the foot to 5 degrees with the knee extended, once I bent the knee I was able to get the ankle dorsiflexed to 15 degrees indicating an isolated gastroc contracture. However, I felt that since the patient was able toget past neutral, the certainty of weakening her calf muscle was not justified. I therefore decidednot to do a Delphine procedure. All wounds were then gently irrigated and closed in a layered fashion with 2-0 Vicryl for deep tissues, 4-0 Vicryl for subcutaneous tissues and 4-0 nylon for the skin. The wounds were dressed with Xeroform, 4 x 4's, cast padding placed into a bulky U-splint in a neutral position. The patient was awakened from anesthesia and then transferred to the recovery room bed in the recovery room in a stable state. Postoperative plan: The patient will be nonweightbearing for a total of 6 weeks. The patient will return to clinic in 2 weeks time at which point we will get them out of their splint and get nonweightbearing right foot films. They will start physical therapy to work on dorsiflexion and plantarflexion of the ankle. We should remove sutures as appropriate. We will see them back in clinic at 6 weekspostop at which point we should obtain nonweightbearing operative foot films and advance them to weightbearing as tolerated in a boot. They should follow the standard boot weaning protocol. Implant Name Type Inv. Item Serial No. Knitting Machine Fixer Head Lot No. LRB No. Used Action GRAFT BONE FILLER INJECTABLE 5CC DBM PUTTY ALLOMATRIX ([id number]) (AutoReq) - [id number] IMPLANTS GRAFT BONE FILLER INJECTABLE 5CC DBM PUTTY ALLOMATRIX ([id number]) (AutoReq) [id number] UNKNOWN - UNKNOWN Right 1 Implanted GRAFT BONE FILLER 3CC DBM INJECTABLE AUGMENT ([id number]) (AutoReq) - [id number] IMPLANTS GRAFT BONE FILLER 3CC DBM INJECTABLE AUGMENT ([id number]) (AutoReq) [facility] [id number] Right 1 Implanted SCREW 6.5X80MM ALAN PT TI ASNIS III ([id number]) (AutoReq) - [id number] IMPLANTS SCREW 6.5X80MM ALAN PT TI ASNIS III ([id number]) (AutoReq) [employer] [place] Right 2 Implanted SCREW 4.0X50MM ALAN PT TI ASNIS III ([id number]) (AutoReq) - [id number] IMPLANTS SCREW 4.0X50MM ALAN PT TI ASNIS III ([id number]) (AutoReq) [employer] [place] Right 1 Implanted SCREW 4.0X40MM ALAN PT TI ASNIS III ([id number]) (AutoReq) - [id number] IMPLANTS SCREW 4.0X40MM ALAN PT TI ASNIS III ([id number]) (AutoReq) [place] [email or web address] [place] Right 1 Implanted PLATE Y SHAPE 3 HOLE COMP LCK VARIAX ([id number]) (AutoReq) - [id number] IMPLANTS PLATE Y SHAPE 3 HOLECOMP LCK VARIAX ([id number]) (AutoReq) [place] [email or web address] [place] Right 1 Implanted PLATE Y SHAPE 4 HOLE COMP LCK VARIAX ([id number]) (AutoReq) - [id number] IMPLANTS PLATE Y SHAPE 4 HOLECOMP LCK VARIAX ([id number]) (AutoReq) [place] [email or web address] - [place] Right 1 Implanted SCREW 3.5X26MM NLCK FT VARIAX ([id number]) (AutoReq) - [id number] IMPLANTS SCREW 3.5X26MM NLCK FT VARIAX ([id number]) (AutoReq) [place] [facility] - [place] Right 1 Implanted SCREW 3.5X20MM NLCK FT VARIAX ([id number]) (AutoReq) - [id number] IMPLANTS SCREW 3.5X20MM NLCK FT VARIAX ([id number]) (AutoReq) [place] [facility] - [place] Right 2 Implanted SCREW 3.5X28MM NLCK FT VARIAX ([id number]) (AutoReq) - [id number] IMPLANTS SCREW 3.5X28MM NLCK FT VARIAX ([id number]) (AutoReq) [place] [facility] - [place] Right 1 Implanted SCREW 3.5X30MM NLCK FT VARIAX ([id number]) (AutoReq) - [id number] IMPLANTS SCREW 3.5X30MM NLCK FT VARIAX ([id number]) (AutoReq) [place] [facility] - [place] Right 1 Implanted SCREW 3.5X20MM LCK FT TI VARIAX ([id number]) (AutoReq) - [id number] IMPLANTS SCREW 3.5X20MM LCK FT TI VARIAX ([id number]) (AutoReq) [place] [facility] - [place] Right 1 Implanted SCREW 3.5X26MM LCK FT TI VARIAX ([id number]) (AutoReq) - [id number] IMPLANTS SCREW 3.5X26MM LCK FT TI VARIAX ([id number]) (AutoReq) [place] [email or web address] - [place] Right 1 Implanted SCREW 3.5X28MM LCK FT TI VARIAX ([id number]) (AutoReq) - [id number] IMPLANTS SCREW 3.5X28MM LCK FT TI VARIAX ([id number]) (AutoReq) [place] [facility] - [place] Right 1 Implanted Surgical Infection Prevention Bundle Used? No Attestation: Case Date: 06/27/2023 I was present and I participated during the entire procedure (does not need to include opening and closing). Crystal Hess MD 06/27/2023 documented in this encounter Plan of Treatment Not on file documented as of this encounter Procedures Procedure Name Priority Date/Time Associated Diagnosis Comments XR FLUORO NO RAD <1HR - OR USE Routine 06/27/2023 2:55 PM EST Fusion Foot Bones, Triple ([id number]) 06/27/2023 11:33 AM EST Posterior tibial tendon dysfunction (PTTD) of right lower extremity ARTHRODESIS, TRIPLE Routine 06/27/2023 9 :39 AM EST Posterior tibial tendon dysfunction (PTTD) of right lower extremity documented in this encounter Results * XR Fluoro No Rad <1Hr - OR Use (06/27/2023 2:55 PM EST) Narrative Dicom, Auditing User - 06/27/2023 3:14 PM EST This exam is auto-finalizing. No interpretation was done. Crystal Hess MD IMG FLUORO ORDERABLE S documented in this encounter Visit Diagnoses Diagnosis Posterior tibial tendon dysfunction (PTTD) of right lower extremity Posterior tibial tendon dysfunction s/p R triple arthrodeiss 06/27/23 (Deshawn) Other disorders of synovium, tendon, and bursa Posterior tibial tendon dysfunction (PTTD) of right lower extremity documented in this encounter Administered Medications Inactive Administered Medications - up to 3 most recent administrations Medication Order MAR Action Action Date Dose Rate Site acetaminophen (Tylenol) tablet 975 mg 975 mg, Oral, ONCE, 1 dose, On Lawanda 06/27/23 at 1000, Administer with a SIP of water only. Maximum dose of acetaminophen is 4,000 mg from all sources in 24 hours., Day of Surgery (Day of Procedure), Routine Given 06/27/2023 9:55 AM EST 975 mg fentaNYL (PF) (50 mcg/mL) injection 25-100 mcg 25-100 mcg, Intravenous, EVERY 5 MIN PRN, Starting on Lawanda 06/27/23 at 0939, Until Lawanda 06/27/23 at 1616, Pain, or prior to injection of local anesthetic., Hold for respiratory rate less than 8 breaths per minute. (maximum dose 200 mcg), Day of Surgery (Day of Procedure), Routine Given 06/27/2023 1:54 PM EST 25 mcg Given 06/27/2023 1:44 PM EST 25 mcg Given 06/27/2023 11:06 AM EST 25 mcg lactated ringers infusion 1,000 mL, at 100 mL/hr, Intravenous, CONTINUOUS, Starting on Lawanda 06/27/23 at 1000, Until Lawanda 06/27/23 at 1616, Day of Surgery (Day of Procedure) Restarted 06/27/2023 11:30 AM EST New Bag 06/27/2023 10:45 AM EST 1,000 mLs 100 mL/hr documented in this encounter Active and Recently Administered Medications Times are shown in EST. Scheduled Medication Order 06/25/2023 06/26/2023 06/27/2023 acetaminophen (Tylenol) tablet 975 mg (COMPLETED) 975 mg, Oral, ONCE, 1 dose, On Lawanda 06/27/23 at 1000, Administer with a SIP of water only. Maximum dose of acetaminophen is 4,000 mg from all sources in 24 hours., Day of Surgery (Day of Procedure), Routine 0955 (Given - Provid er: Sosa Severino RN) ceFAZolin (Ancef) 2 g in dextrose 5% 100 mL infusion (COMPLETED) 2 g, Intravenous, ONCE, 1 dose, On Lawanda 06/27/23 at 1130, Administer over 30 Minutes, Indication for (Active or Suspected): Prophylaxis 1212 (Given - Provid er: Renato Ron CRNA) Continuous Medication Order 06/25/2023 06/26/2023 06/27/2023 lactated ringers infusion (CANCELED) 1,000 mL, at 100 mL/hr, Intravenous, CONTINUOUS, Starting on Lawanda 06/27/23 at 1000, Until Lawanda 06/27/23 at 1616, Day of Surgery (Day of Procedure) 1045 (New Bag - Prov ider: Sosa Severino RN)1129 (Paused - Provider: Renato Ron CRNA - Comment: Switch to gravity)1130 (Restarted - Provider: Renato Ron CRNA)1224 (Anesthesia Volume Adjustment - Provider: Renato Ron CRNA)1327 (Anesthesia Volume Adjustment - Provider: Renato Ron CRNA) PRN Medication Order 06/25/2023 06/26/2023 06/27/2023 fentaNYL (PF) (50 mcg/mL) injection 25-100 mcg (CANCELED) 25-100 mcg, Intravenous, EVERY 5 MIN PRN, Starting on Lawanda 06/27/23 at 0939, Until Lawanda 06/27/23 at 1616, Pain, or prior to injection of local anesthetic., Hold for respiratory rate less than 8 breaths per minute. (maximum dose 200 mcg), Day of Surgery (Day of Procedure), Routine 1106 (Given - Provid er: Sosa Severino RN)1344 (Given - Provider: Renato Ron CRNA)1354 (Given - Provider: Renato Ron CRNA) No Frequency Medication Order 06/25/2023 06/26/2023 06/27/2023 ceFAZolin (Ancef) 1 gram injection 1 dose, Starting on Lawanda 06/27/23 at 1113, Until Lawanda 06/27/23 at 1817, Sosa Severino: cabinet override 1115 (Due) documented in this encounter Care Teams Fleet Operations Manager Relationship Specialty Start Date End Date Angie Alonzo MD [facility] [address] [place] [address] PCP - General Family Medicine 06/25/17 documented as of this encounter
--- OUTSIDE RECORDS SUMMARY | 2024-03-11 15:13 | XMS_ITS | Encounter Summary ---
Author Organization [facility] Address [facility] [place] [address] Care Team Providers Care Beater And Pulper Feeder Name Role Phone Angie Alonzo MD Primary Care Provider [phone] Encounter Details Date Type Department Care Team (Late st Contact Info) Description 06/04/2023 3:30 PM EST Clinical Support Same Day at [facility] [place] [id number] Social History Tobacco Use Types Packs/Day Years Used Date Smoking Tobacco: Never Smokeless Tobacco: Never Alcohol Use Standard Drinks/Week Comments Never 0 (1 standard drink = 0.6 oz pur e alcohol) very occasional Sex and Gender Information Value Date Recorded Sex Assigned at Not on file Gender Identity Not on file Sexual Orientation Not on file documented as of this encounter Progress Notes * Adis Avila, RN - 06/04/2023 3:30 PM EST PAT/[facility] questionnaire reviewed with patient and daughter while in Pre Admission testing. Pre-operative instruction booklet reviewed. Patient verbalizes a good understanding of all information reviewed. PLAN: Testing: None Special medication instructions: Hold jardiance 3 days prior. Patient understands further instructions will be provided by [facility] staffduring their pre-op calls. Procedure date: 06/27/23 [facility] Deshawn RUSSELL Penicillin Allergy Risk Assessment 06/04/2023: Low risk penicillin allergy. OK to receive full dose of cefazolin, cefuroxime, or any 3rd or 4th+ generation cephalosporin. documented in this encounter Plan of Treatment Not on file documented as of this encounter Visit Diagnoses Not on filedocumented in this encounter Care Teams Beater And Pulper Feeder Relationship Specialty Start Date End Date Angie Alonzo MD [address] [place] [address] PCP - General Family Medicine 06/25/17 documented as of this encounter
--- OUTSIDE RECORDS SUMMARY | 2024-03-11 15:13 | XMS_ITS | Encounter Summary ---
Author Organization [facility] Address [facility] [place] [address] Care Team Providers Care Medical Record Retrieval Specialist Name Role Phone Angie Alonzo MD Primary Care Provider [phone] Reason for Referral * Physical Therapy (Routine) - Closed Specialty Diagnoses / Procedures Referred By Mima rivera Referred To Contact Physical Therapy Diagnoses Posterior tibial tendon dysfunction (PTTD) of right lower extremity Rene Tubbs PA [facility] [place] [address] Physical Therapy, [address] [address] Referral ID Status Reason Start Date Expiration Date V isits Requested Visits Authorized [id number] Closed Evaluate and Treat 07/09/2023 01/05/2024 20 20 Reason for Visit * Reason Comments Post-op Problem DOS: 06/27/23 RIGHT ANKLE FUSION- SONAL Encounter Details Date Type Department Care Team (Late st Contact Info) Description 07/09/2023 1:30 PM EST Office [place] [address] Rene Tubbs PA [facility] [place] [address] Posterior tibial tendon dysfunction (PTTD) of right lower extremity Social History Tobacco Use Types Packs/Day Years [...] Sign Reading Time Taken Comments Blood Pressure - - Pulse - - Temperature - - Respiratory Rate - - Oxygen Saturation - - Inhaled Oxygen Concentration - - Weight 92.5 kg (204 lb) 07/09/2023 1:21 PM EST c opied Height 167.6 cm (5' 6) 07/09/2023 1:21 PM EST Body Mass Index 32.93 07/09/2023 1:21 PM EST documented in this encounter Progress Notes * Rene Tubbs PA - 07/09/2023 1:30 PM EST Images from the original note were not included. PATIENT NAME: Abimbola Dumas AGE: 77 y.o. MR#: [id number] DATE OF VISIT: 07/09/2023 STAFF: Rene Tubbs PA-C FOLLOW UP FOR: Right triple arthrodesis with Dr. Hess on 06/27/23 HISTORY OF PRESENT ILLNESS: Ms. Dumas is a 77 y.o. female who comes into clinic today for follow up of the above. They are doing well overall with no fever, nausea, muscle aches or calf pain. Medications and Allergies were reviewed in eD-H PAST MEDICAL HX: Past Medical History: Diagnosis Date Antiplatelet or [...] at times. does not use a cane Patient Active Problem List Diagnosis Code Malignant neoplasm of upper-inner quadrant of left breast in female, estrogen receptor positive C50.212, Z17.0 CAD (coronary artery disease) I25.10 S/P CABG (coronary artery bypass graft) Z95.1 Breast calcifications on mammogram R92.1 Posterior tibial tendon dysfunction s/p R triple arthrodeiss 06/27/23 (Sonal) M76.829 PAST SURGICAL HX: Past Surgical History: Procedure Laterality Date BREAST BIOPSY BREAST LUMPECTOMY Left 07/2017 BREAST SURGERY R lumpectomy, benign BREAST SURGERY Right ? patient states benign surgery years ago CHOLECYSTECTOMY HYSTERECTOMY oophorectomy IR CHEST TUBE PLACEMENT LEFT 04/10/2019 IR Chest Tube Placement Left 04/10/2019 Adis Oliveira MD [facility] INTERVENTIONL RAD JOINT REPLACEMENT hip right ORTHOPEDIC SURGERY R hip OVARY REMOVAL PRO ADJACENT TISSUE TRANSFER/REARRANGE TRUNK 10.1-30.0CM Left 07/04/2017 ADJ.TISSUE TRANSFER, REARRANGEMENT, TRUNK,10.1 TO 30 SQ CM (WRVU 8.78) performed by Ashley Farooq MD at [facility] MAIN OR PRO BX/REMV, LYMPH NODE, DEEP AXILL Left 07/04/2017 BIOPSY OR EXCISION OF LYMPH NODE(S), OPEN, DEEP AXILLARY NODE(S) (WRVU 6.43) performed by Ashley Farooq MD at [facility] MAIN OR PRO CABG, ARTERIAL, SINGLE N/A 03/05/2019 @CABG, USING ARTERIAL GRAFT;SINGLE ARTERIAL GRAFT (WRVU 33.75) performed by Ryan Lynch MD at [facility] MAIN OR PRO CABG, ARTERY-VEIN, THREE N/A 03/05/2019 @CABG; 3 VENOUS GRAFTS & ARTERIAL GRAFT (WRVU 10.49) performed by Ryan Lynch MD at [facility] MAIN OR PRO ENDOSCOPY W/VIDEO-ASST VEIN HARVEST, CABG N/A 03/05/2019 ENDOSCOPIC HARVEST VEIN(S) FOR CABG (WRVU 0.31) performed by Ryan Lynch MD at [facility] MAIN OR PRO FUSION FOOT BONES, TRIPLE Right 06/27/2023 ARTHRODESIS, TRIPLE (WRVU 13.42) performed by Crystal Hess MD at [facility] OSC PRO INTRAOP SENTINEL LYMPH ID W/DYE INJECTION Left 07/04/2017 INTRAOPERATIVE ID (MAPPING) SENTINEL LYMPH NODE,INCLUDES INJECTION (WRVU 2.5) performed by Ashley Farooq MD at [facility] MAIN OR PRO MASTECTOMY PARTIAL Left 07/04/2017 MASTECTOMY PARTIAL (WRVU 10.13) performed by Ashley Farooq MD at [facility] MAIN OR FAMILY HX: Family History Problem Relation Age of Onset Lung Cancer Sister smoker Breast Cancer Neg Hx Ovarian Cancer Neg Hx SOCIAL HX: Social History Occupational History Not on file Tobacco Use Smoking status: Never Smokeless tobacco: Never Vaping Use Vaping Use: Never used Substance and Sexual Activity Alcohol use: Never Comment: very occasional Drug use: No Sexual activity: Not on file 07/09/2023 General Health, Prior Treatments, PreExisting Condition, Health Habits, About You PROMIS-10 General Health Good PROMIS-10 Quality of Life Good PROMIS-10 Physical Health Good PROMIS-10 Mental Health Good PROMIS-10 Social Activity Good PROMIS-10 Everyday Activities Mostly PROMIS-10 Pain 2 PROMIS-10 Fatigue Mild PROMIS-10 Social Roles Good PROMIS-10 Anxious or Depressed Rarely PROMIS PHYSICAL SCORE (range 16-68) 47.7 PROMIS MENTAL SCORE (range 21-68) 45.8 No data to display No data to display PHYSICAL EXAM: Ms. Dumas is a 77 y.o. female General appearance: in no acute distress, alert, cooperative Psych: cooperative with exam, appropriate Head: normocephalic, atraumatic EENT: EOMI grossly intact Neck: supple, trachea midline Cardiac: regular rate and rhythm by peripheral pulse Lungs: no extra work of breathing Musculoskeletal: The skin over the foot and ankle is pink in color, warm and well perfused without calluses or lesions present. The incision sites are healing well with the skin well approximated, no signs of drainage, undermining, tunneling, or wound dehiscence. No erythema present. DIAGNOSTIC STUDIES: NWB foot XR reveals the hardware Is in place without evidence of lucency or movement. No fracture or dislocation is appreciated. Some bone callus formation is appreciable. ASSESSMENT: S/p the above procedure. Doing well. PLAN: The patient was fitted for a boot this visit. They may remove this boot when showering, performing physical therapy, sleeping and resting. I would like them to wear it when ambulating. I have sent them PT orders to perform ROM, stretching, desensitization core strength and other modalities. Follow up in 1 week for lateral incision suture removal. These were not removed as significant tension is still place on this site from swelling. The patient expressed agreement with and understanding of this plan of care. The patient understands to contact us if they have any other questions or concerns. The above documentation was completed using [employer] voice recognition software. Rene Tubbs PA-C, MPAS Department of Orthopaedics [facility] Pager [phone] documented in this encounter Plan of Treatment Scheduled Referrals Name Type Priority Associated Diagnoses Orde r Schedule Referral to Physical Therapy Outpatient Referral Routine Posterior tibial tendon dysfunction (PTTD) of right lower extremity Ordered: 07/09/2023 documented as of this encounter Visit Diagnoses Diagnosis Posterior tibial tendon dysfunction (PTTD) of right lower extremity documented in this encounter Care Teams Medical Record Retrieval Specialist Relationship Specialty Start Date End Date Angie Alonzo MD [address] [place] [address] PCP - General Family Medicine 06/25/17 documented as of this encounter
--- OUTSIDE RECORDS SUMMARY | 2024-03-11 15:13 | XMS_ITS | Encounter Summary ---
Author Organization [facility] Address [facility] [place] [address] Care Team Providers Care Pipeline Superintendent Division Name Role Phone Angie Alonzo MD Primary Care Provider [phone] Encounter Details Date Type Department Care Team (Late st Contact Info) Description 07/05/2023 Orders Only [place] [address] Rene Tubbs, PA [facility] DR ORTHOPAEDIC SURGERY [place] [id number] Posterior tibial tendon dysfunction (PTTD) of right lower extremity; Right foot pain; Posterior tibial tendon dysfunction s/p R triple arthrodeiss 06/27/23 (Faro) Social History Tobacco Use Types Packs/Day Years Used Date Smoking Tobacco: Never Smokeless Tobacco: Never Alcohol Use Standard Drinks/Week Comments Never 0 (1 standard drink = 0.6 oz pur e alcohol) very occasional [facility] Inpatient Questions Answer Date Recorded Does Anyone [...] on file documented as of this encounter Plan of Treatment Not on file documented as of this encounter Results * XR Foot Min 3 views Right (Generic) (07/09/2023 12:27 PM EST) Anatomical Region Laterality Modality Foot Right Digital Radiogra phy Impressions 07/09/2023 4:17 PM EST 1. ??Status post triple arthrodesis. No hardware complication. 2. ??Soft tissue swelling the ankle and foot is nonspecific. Thank you for letting us participate in the care of this patient. ??If you are a health care provider and have any questions regarding this report, please contact the number below. ??For patients who have questions please contact the health day care supervisor that requested your imaging first. ? Electronically signed by: Marissa Arroyo MD, [facility] ([phone]), at 07/09/2023 4:17 PM Narrative 07/09/2023 4:17 PM EST EXAMINATION: XR FOOT MIN 3 VIEWS RIGHT (GENERIC) CLINICAL HISTORY: s/p R Triple arthrodesis, Please perform NWB (as entered by ordering provider in the order requisition) TECHNIQUE: Nonweightbearing AP, oblique, and lateral views of the right foot. COMPARISON: Right foot radiographs 03/27/2023. Intraoperative fluoroscopic images 06/26/2023. FINDINGS: There is soft tissue swelling around the ankle and foot. There are postoperative changes of arthrodesis of the subtalar, talonavicular, and calcaneocuboid joints. Hardware is intact and unchanged in position. No lucency around screws. No acute fracture. Procedure Note Marissa Arroyo MD - 07/09/2023 EXAMINATION: XR FOOT MIN 3 VIEWS RIGHT (GENERIC) CLINICAL HISTORY: s/p R Triple arthrodesis, Please perform NWB (as enteredby ordering provider in the order requisition) TECHNIQUE: Nonweightbearing AP, oblique, and lateral views of the right foot. COMPARISON: Right foot radiographs 03/27/2023. Intraoperative fluoroscopic [id number]/26/2023. FINDINGS: There is soft tissue swelling around the ankle and foot. There are postoperative changes of arthrodesis of the subtalar,talonavicular, and calcaneocuboid joints. Hardware is intact and unchanged in position.No lucency around screws. No acute fracture. IMPRESSION 1. Status post triple arthrodesis. No hardware complication. 2. Soft tissue swelling the ankle and foot is nonspecific. Thank you for letting us participate in the care of this patient. If youare a health care provider and have any questions regarding this report,please contact the number below. For patients who have questions please contactthe health day care supervisor that requested your imaging first. Electronically signed by: Marissa Arroyo MD, [facility]([phone]), at 07/09/2023 4:17 PM Crystal Hess MD IMG DX ORDERABLES documented in this encounter Visit Diagnoses Diagnosis Posterior tibial tendon dysfunction (PTTD) of right lower extremity Right foot pain Pain in limb Posterior tibial tendon dysfunction s/p R triple arthrodeiss 06/27/23 (Faro) Other disorders of synovium, tendon, and bursa Posterior tibial tendon dysfunction (PTTD) of right lower extremity Right foot pain Pain in limb Posterior tibial tendon dysfunction s/p R triple arthrodeiss 06/27/23 (Faro) Other disorders of synovium, tendon, and bursa documented in this encounter Care Teams Pipeline Superintendent Division Relationship Specialty Start Date End Date Angie Alonzo MD [address] [place] [address] PCP - General Family Medicine 06/25/17 documented as of this encounter
--- OUTSIDE RECORDS SUMMARY | 2024-03-11 15:13 | XMS_ITS | Encounter Summary ---
Author Organization [facility] Address [facility] [place] [address] Care Team Providers Care Fisher Diving Name Role Phone Angie Alonzo MD Primary Care Provider [phone] Encounter Details Date Type Department Care Team (Latest Contact Info) Description 06/04/2023 Travel Social History Tobacco Use Types Packs/Day Years [...] on filedocumented in this encounter Care Teams Fisher Diving Relationship Specialty Start Date End Date Angie Alonzo MD [facility] [address] [place] [address] PCP - General Family Medicine 06/25/17 documented as of this encounter
--- OUTSIDE RECORDS SUMMARY | 2024-03-11 15:13 | XMS_ITS ---
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 S/P CABG (coronary artery bypass graft) 03/05/20 CAD (coronary artery disease) 02/25/2019 Malignant neoplasm of upper- inner quadrant of left breast in female, estrogen receptor positive 05/28/2017 Cancer Staging:Clinical stage from 07/01/2017:Stage IA(T1c, N0, M0) - Signed by Kalyan Damico MD on 07/01/2017 Pathologic stage from 07/15/2017:Stage IA(T1b, N0, cM0) - Signed by Kalyan Damico MD on 07/15/2017 Overview (02/28/2018): Ms. Dumas presented on screening mammography November 06, 2016 with an area of increased density with surrounding architectural distortion in the medial, subareolar left breast. Diagnostic imaging on November 09 showed a 9 mm spiculated mass in the upper inner quadrant of the left breast at 9:00, 3 cm from the nipple. An ultrasound showed a subtle 6 mm hypoechoic shadowing mass. An ultrasound-guided biopsy on December 04 found benign breast and adipose tissue. A repeat ultrasound on April 09 showed a stable left breast mass. An ultrasound of the left breast here on May 28 showed a 7 x 12 mm irregular hypoechoic mass in the left breast at 9:00, 3 cm from the nipple. An ultrasound-guided biopsy the same day showed a low grade invasive ductal carcinoma, estrogen receptor strongly positive in greater than 90% of cells, progesterone receptor strongly positive in 11-50% of cells, and Her-2 unamplified, with a Her-2:CEP-17 ratio of 1.2. She underwent a needle localization excision and sentinel node biopsy on July 04, 2017. There was a 6.6 mm low grade (SBR=4) invasive ductal carcinoma with 25 mm of ductal carcinoma in situ ranging from low grade to high grade with necrosis. There was no lymphovascular invasion and the cranial margin was 0.5 mm. One sentinel node was negative. She received radiotherapy to the left breast from August 05 through September 02, 2017, 42.56 Gy in 16 fractions to the breast plus a 10 Gy boost in four fractions to the tumor bed. She started tamoxifen on September 16, 2017. Current Oncology Plans No current plan information found. Past Plans No past plan information found. Radiation Treatments * No radiation treatments are documented for this patient in [facility]. Treatments may have been administered in another system. Treatment Summaries Malignant neoplasm of upper-inner quadrant of left breast in female, estrogen receptor positive* Cancer Treatment Summary Provided by Iris Cohn on 02/22/19 General Information Patient name Abimbola Dumas (home) Date of 1945 Support contact Marion Urbina Care Team Medical Oncologist Dr Kalyan Damico Surgeon Dr Ashley Farooq Radiation Oncologist Dr Bethany Merrill Primary Care Physician ANGIE ZAMORA Treatment Summary Chemotherapy and Supportive Care Treatment History BREAST CANCER NOTES 02/22/2019 Method of Cancer Detection abnormal mammogram of the left breast Menopausal Status at Diagnosis post-menopausal Date of Diagnostic Biopsy 05/28/2017 Local Surgery Lumpectomy done by Dr Farooq Axillary lymph node Management [place] nodes alone Total Number of Nodes Removed 1 Total Nodes Positive 0 Date of Last Surgical Procedure 07/04/2017 Histology Invasive ductal carcinoma Tumor Staging from Staging System [id number] T1= tumor that is less than 2 cm in size N0= no involved lymph nodes M0= no distant spread Stage 1 --good prognosis with treatment Size of Primary Malignancy 0.66 cm Grade low Margin negative ER-estrogen receptor Positive (this makes you eligible to take hormone therapy with tamoxifen to prevent future recurrence of breast cancer) [place]--progesterone receptor positive HER-2/FISH Negative ( good outcome --you did not require treatment with herceptin for a year) Endocrine Therapy Recommended for Hormone Sensitive Invasive Tumor yes First Adjuvant Endocrine Therapy Tamoxifen Dates of radiation 08/05/17 to 09/02/17. Radiation Mendez Cuban Protocol Radiation Boost yes Total Dosage of Radiation 52.56 Gy Surveillance 01/20/2019-- mammogram --no evidence of malignancy Follow-up and Survivorship Care Monitor for ongoing toxicities: Surveillance: Primary Care Provider: Follow-up at least yearly for health maintenance Medical Oncology: Follow up every six months Surgeon: follow up yearly Radiation Oncology: follow- every six months year one then yearly as needed Mammogram: yearly Breast self exam: monthly Possible late and fdc effects of treatment: Tamoxifen side effects: Side effects of tamoxifen may include a 0.2% per year increase in her risk of developing a blood clot in the leg or lung, an increase of 0.1% per year of developing uterine carcinoma or sarcoma, as well as hot flashes, night sweats, mood swings, vaginal bleeding, pelvic pain, vaginal discharge, weight gain or weight loss, difficulty sleeping, night time leg cramping and anincreased risk of developing cataracts. Skin changes at the site of radiation. Late effects include change in pigmentation, skin thickening, retraction and fibrosis (scar tissue) and formation of telangiectasias (small red lines on skin--this can occur several years after completion of treatment and is cosmetic only) Chest wall tightness can occur as a result of radiation therapy. Stretching exercises are recommended every day to minimize this risk and to promote fdc good shoulder range of motion Lymphedema of the breast and arm are caused by lymph node dissection and fibrosis (scars) from radiation therapy and surgery. Report any swelling to your cancer team. Your risk of this is very small but if there is swelling let your cancer team know and we will refer you for physical therapy. Pain: Discuss any problems with persistent pain with your cancer team. Fatigue: Cancer related fatigue is a distressing persistent, subjective sense of physical, emotional, and/or cognitive tiredness or exhaustion related to cancer or cancer treatment that is not proportional to recent activity and interferes with usual functioning. This is a common issue for individuals undergoing cancer treatment and for cancer survivors sometimes for months and years following adama gnosis and treatment. The time course of fatigue is unique to each person. In most cases mild to moderate fatigue will resolve within a year. If it persists longer than this time or if fatigue worsens discuss this issue with your cancer team for further evaluation. Anxiety depression: Survivors of cancer treatment are at high risk for anxiety and depression due to multiple stressors, feeling vulnerable and the many challenges that you have faced and continue toface. Fear of recurrence is normal. Let your providers know if you have any of these symptoms--frequent feelings of being nervous, restless or worried or fearful, trouble sleeping, difficulty concentrating, less interest or enjoyment of usual activities, feeling sad or depressed, difficulty performing your usual activities. Cardiac Toxicities: As part of your cancer treatments you received radiation therapy to the chest .If you have persistent fatigue and shortness of breath or chest pain please let your cancer team know so that cardiac evaluation can be done. The technique that was used to treat your breast cancer limited any exposure to the heart to a very low level to reduce fdc effects on the heart. PCP follow up: Yearly exams for health maintenance and preventative care. LIFE STYLE: Exercise: Many studies now show that women who exercise and who do not gain weight reduce their risk of breast cancer recurrence. Engage in at least 20-30 minutes of moderate intensity activity on most days of the week. Include strength training exercises at least two days a week. Alcohol: Minimize alcohol intake to no more than one drink a day. Nutrition: Follow the [place] [employer] Guidelines that include the following: limit consumption of processed meat and red meat; eat at least 2.5 cups of vegetables and fruits daily; choose whole grains instead of refined grain products. High fiber and low fat diet is advised. Smoking: smoking increases the risk of breast cancer and other cancers Sunscreen should be used prolonged sun exposure, ie longer than 15 minutes. Screening: Colonoscopy at age 50, bone density when menopausal, fasting lipid profile as indicated and at the discretion of you primary care provider and all other age appropriate screenings that need to be done yearly Vaccinations: Immunization of inactivated vaccines is recommended for cancer survivors. This includes flu vaccines yearly. Pneumonia vaccine is recommended per CDC guidelines for pneumonia vaccine--primary care provider would administer this. Potential signs of recurrence: Any symptom lasting more than 2 weeks and not improving--persistent pain, cough, shortness of breath, headache. Any change in skin at treatment site from post treatmentbaseline or new lump or nipple discharge. Resources: Helpful websites www. cancer.gov -- National Cancer Calvin www. nccn.org -- National Comprehensive Cancer Network www. canceradvocacy. org --National Coalition for Cancer Survivorship www. livestrong. org -- [employer] Survivor Care www. acscsn.org -- Cancer Survivors Network Survivorship care provider contacts EYEGLASS INSPECTOR: Irsi Cohn
--- OUTSIDE RECORDS SUMMARY | 2024-03-11 15:13 | XMS_ITS | Encounter Summary ---
Author Organization [facility] Address [facility] [place] [address] Care Team Providers Care Furnace Tapper Name Role Phone Angie Alonzo MD Primary Care Provider [phone] Reason for Visit * Reason Onset Date Comments Questions 07/15/2023 Encounter Details Date Type Department Care Team (Late st Contact Info) Description 07/15/2023 Telephone [place] [id number] Crystal Hess MD [facility] [place] [address] Questions Social History Tobacco Use Types Packs/Day Years Used Date Smoking Tobacco: Never Smokeless Tobacco: Never Alcohol Use Standard Drinks/Week Comments Never 0 (1 standard drink = 0.6 oz pur e alcohol) very occasional [facility] Inpatient Questions Answer Date Recorded Does [...] on file documented as of this encounter Miscellaneous Notes * Telephone Encounter - Edel Chen - 07/18/2023 3:26 PM EST Scheduled * Telephone Encounter - Andrew Esquivel - 07/18/2023 11:25 AM EST Called and notified patient that she may have her PCP remove the sutures at this point per Rene Tubbs PA-C. She understands and agrees with this plan. She does need to have her follow-up appt scheduled, however I need to confirm when that should be with Rene Tubbs PA-C. Once we know when she should follow-up we will have our secretaries reach out to schedule with her. She understands and agrees with this plan. * Telephone Encounter - Andrew Esquivel - 07/18/2023 10:48 AM EST Images from the original note were not included. Picture received to evaluate sutures * Telephone Encounter - Andrew Esquivel - 07/18/2023 10:32 AM EST Returned call to discuss with patient. We never received the photo they send. Verified the email address they were provided, and gave her the correct spelling on everything. Her granddaughter will beback around 3pm today and they will try to send a new photo. * Telephone Encounter - Nanette Reeder - 07/17/2023 8:09 AM EST Pictures were sent to email. * Telephone Encounter - Cristian Gibson - 07/15/2023 2:56 PM EST Name of person calling : Marion (Daughter) Facility person calling from: n/a Who is the provider: n/a Have you had surgery: Yes If yes : DOS: 06/27/23 Surgeon: Dr. Hess Is there a new injury: No If yes, how did the new injury occur?: Best contact number:[phone] What is the question: Patient's daughter called in because she doesn't believe she will be able to bring patient to her appt tomorrow to get her stitches out as she's concerned about the weather. Sheasked if it would be possible for the patient to get her stitches out instead with her PCP closer to her. Can we give her a call and let her know if this is possible. documented in this encounter Plan of Treatment Not on file documented as of this encounter Visit Diagnoses Not on filedocumented in this encounter Care Teams Furnace Tapper Relationship Specialty Start Date End Date Angie Alonzo MD [address] [facility] [address] [place] [address] PCP - General Family Medicine 06/25/17 documented as of this encounter
--- OUTSIDE RECORDS SUMMARY | 2024-03-11 15:13 | XMS_ITS | Encounter Summary ---
Author Organization [facility] Address [facility] [place] [address] Care Team Providers Care Mechanical Cad Drafter Name Role Phone Angie Alonzo MD Primary Care Provider [phone] Encounter Details Date Type Department Care Team (Late st Contact Info) Description 07/02/2023 Telephone Anesthesiology [facility] [place] [phone] Ryan Short MD [facility] [place] [address] Social History Tobacco Use Types Packs/Day Years [...] encounter Miscellaneous Notes * Telephone Encounter - Radha Stoner MD - 07/02/2023 12:29 PM EST REGIONAL NERVE BLOCK FOLLOW-UP I spoke to patient via telephone. Peripheral nerve block resolved appropriately. No residual weakness/numbness/decreased sensation. No sign of infection at injection site. Patient very satisfied withnerve block. If there are any questions or concerns regarding the nerve block, please do not hesitate to contactthe regional anesthesia team. Radha Stoner MD documented in this encounter Plan of Treatment Not on file documented as of this encounter Visit Diagnoses Not on filedocumented in this encounter Care Teams Mechanical Cad Drafter Relationship Specialty Start Date End Date Angie Alonzo MD [facility] [address] [facility] [address] [place] [address] PCP - General Family Medicine 06/25/17 documented as of this encounter
--- OUTSIDE RECORDS SUMMARY | 2024-03-11 15:13 | XMS_ITS | Encounter Summary ---
Author [facility] Address [facility] [place] [address] Care Team Providers Care Analytical Strategist Name Role Phone Angie Alonzo MD Primary Care Provider [phone] Encounter Details Date Type Department Care Team (Latest Contact Info) Description 07/26/2023 Travel Social History Tobacco Use Types Packs/Day [...] on filedocumented in this encounter Care Teams Analytical Strategist Relationship Specialty Start Date End Date Angie Alonzo MD [address] [place] [address] PCP - General Family Medicine 06/25/17 documented as of this encounter
--- OUTSIDE RECORDS SUMMARY | 2024-03-11 15:13 | XMS_ITS | Encounter Summary ---
Author Organization [facility] Address [facility] [place] [address] Care Team Providers Care Radiology Asst Name Role Phone Angie Alonzo MD Primary Care Provider [phone] Encounter Details Date Type Department Care Team (Late st Contact Info) Description 09/02/2023 Orders Only Orthopaedics at [address] [phone] Rene Tubbs, [place] [facility] [place] [address] Posterior tibial tendon dysfunction s/p R triple [...] XR Foot Min 3 views Right (Generic) (09/09/2023 1:03 PM EDT) Anatomical Region Laterality Modality Foot Right Digital Radiogra phy Impressions 09/09/2023 2:57 PM EDT 1. ??Status post triple arthrodesis. No hardware complication. However, there is new subtle bowing of one of the screws traversing the talonavicular joint. Continued attention on follow-up radiograph is recommended. Joint space lucencies remain faintly visible. 2. ??Hammertoe deformities of second and third toes. 3. ??Soft tissue swelling of the forefoot is nonspecific. Thank you for letting us participate in the care of this patient. ??If you are a health care provider and have any questions regarding this report, please contact the number below. ??For patients who have questions please contact the health direct care staffer that requested your imaging first. ? Electronically signed by: Marissa Arroyo MD, [facility] ([phone]), at 09/09/2023 2:57 PM Narrative 09/09/2023 2:57 PM EDT EXAMINATION: XR FOOT MIN 3 VIEWS RIGHT (GENERIC) CLINICAL HISTORY: RIght foot surgery weightbearing M76.829, Posterior tibial tendinitis, unspecified leg (as entered by ordering provider in the order requisition) TECHNIQUE: Weightbearing AP, oblique, lateral views of the right foot. COMPARISON: Right foot radiographs 08/09/2023 FINDINGS: Postoperative changes status post arthrodesis of the subtalar joint, talonavicular joint, and calcaneocuboid joint. Hardware is intact and unchanged in position, though there is slight bowing of the screw traversing the talonavicular joint. There is progression of talonavicular and calcaneocuboid joint space narrowing, though the joint spaces remain faintly visible. There is narrowing of the posterior subtalar joint, but the joint space lucency is visible. Soft tissue swelling of the forefoot is nonspecific. Hammertoe deformities of the second and third toes. First metatarsophalangeal joint space narrowing. Procedure Note Marissa Arroyo MD - 09/09/2023 EXAMINATION: XR FOOT MIN 3 VIEWS RIGHT (GENERIC) CLINICAL HISTORY: RIght foot surgery weightbearing M76.829, Posterior tibial tendinitis, unspecified leg (as entered by ordering provider in the order requisition) TECHNIQUE: Weightbearing AP, oblique, lateral views of the right foot. COMPARISON: Right foot radiographs 08/09/2023 FINDINGS: Postoperative changes status post arthrodesis of the subtalar joint, talonavicular joint, and calcaneocuboid joint. Hardware is intact and unchanged in position, though there is slightbowing of the screw traversing the talonavicular joint. There is progression of talonavicular and calcaneocuboid joint space narrowing, though the jointspaces remain faintly visible. There is narrowing of the posterior subtalar joint, but the joint spacelucency is visible. Soft tissue swelling of the forefoot is nonspecific. Hammertoe deformities of the second and third toes. First metatarsophalangeal joint space narrowing. IMPRESSION 1. Status post triple arthrodesis. No hardware complication. However,there is new subtle bowing of one of the screws traversing the talonavicularjoint. Continued attention on follow-up radiograph is recommended. Joint space lucencies remain faintly visible. 2. Hammertoe deformities of second and third toes. 3. Soft tissue swelling of the forefoot is nonspecific. Thank you for letting us participate in the care of this patient. If youare a health care provider and have any questions regarding this report,please contact the number below. For patients who have questions please contactthe health direct care staffer that requested your imaging first. Electronically signed by: Marissa Arroyo MD, [facility]([phone]), at 09/09/2023 2:57 PM Crystal Hess MD IMG DX ORDERABLES documented in this encounter Visit Diagnoses Diagnosis Posterior tibial tendon dysfunction s/p R triple arthrodeiss 06/27/23 (Deshawn) Other disorders of synovium, tendon, and bursa Posterior tibial tendon dysfunction s/p R triple arthrodeiss 06/27/23 (Deshawn) Other disorders of synovium, tendon, and bursa documented in this encounter Care Teams Radiology Asst Relationship Specialty Start Date End Date Angie Alonzo MD [facility] [address] [place] [address] PCP - General Family Medicine 06/25/17 documented as of this encounter
--- OUTSIDE RECORDS SUMMARY | 2024-03-11 15:13 | XMS_ITS | Clinical Summary ---
Author Organization [facility] Address [facility] [place] [address] Care Team Providers Care Classics Teacher Name Role Phone Angie Alonzo MD Primary Care Provider [phone] Allergies Active Allergy Reactions Criticality Noted Date Comments Penicillins 06/19/2017 PAT Penicillin Allergy Risk Assessment 06/04/2023: Low risk penicillin allergy. OK to receive full dose of cefazolin, cefuroxime, or any 3rd or 4th+ generation cephalosporin. Medications Medication Sig Dispensed Refills Start Date End Date Status pantoprazole (PROTONIX) 20 mg Tablet, Delayed Release (E.C.) Take 20 mg by mouth daily. Active atorvastatin (LIPITOR) 40 mg Tablet Take 40 mg by mouth daily. Active blood-glucose meter (FREESTYLE) Kit 1 each [place] [facility] [place]rug; Combo Route) route as needed for Other. Active aspirin 81 mg Tablet, Chewable Take 81 mg by mouth daily. Active METHYLCELLULOSE (CITRUCEL ORAL) Take by mouth daily as needed. Active acetaminophen (TYLENOL) 500 mg Tablet Take 2 tablets by mouth every 6 hours. 03/09/2019 Active metoprolol tartrate (LOPRESSOR) 25 mg Tablet Take 1 tablet by mouth 2 times daily. 60 tablet 2 03/09/2019 Active amLODIPine (NORVASC) 10 mg Tablet Take 5 mg by mouth daily. Active furosemide (LASIX) 20 mg Tablet 40 mg. 3 03/25/2019 Active potassium chloride (K-DUR/KLOR-CON) 20 mEq Tab Sust.Rel. Particle/Crystal 10 mEq. 4 02/23/2019 Active lisinopriL (Prinivil;Zestril) 40 mg Tablet TAKE ONE TABLET BY MOUTH ONCE DAILY 06/22/2019 Active vitamin B complex (B COMPLEX ORAL) Take by mouth daily as needed. Active azelastine (ASTELIN) 137 mcg (0.1 %) Aerosol, [place] SPRAY 1 SPRAY INTO BOTH NOSTRILS ONCE A DAY 12/11/2022 Active cetirizine (ZyrTEC) 10 mg tablet daily. 12/12/2022 Active calcium-vitamin D3 600 mg-5 mcg (200 unit) Tablet 1 tablet. 09/01/2012 Active MULTIVITAMIN ORAL 1 tablet. 09/01/2012 Active [place]-3 Fatty Acids 100 mg Tablet, Chewable daily. 03/28/2022 Active b complex vitamins Tablet 1 tablet. 03/28/2022 Active OneTouch Ultra Test Strip USE TO TEST ONCE A DAY 04/24/2023 Active lancets Misc [place] [facility] [place]Non-Drug; Combo Route) route. Active furosemide (Lasix) 40 mg tablet Take 1 tablet by mouth Daily at Noon. 07/26/2023 Active Active Problems Problem Noted Date Diagnosed Date [...] She started tamoxifen on September 16, 2017. Family History Medical History Relation Comments Lung Cancer Sister smoker Breast Cancer Neg Hx Ovarian Cancer Neg Hx Relation Status Comments Sister Social History Tobacco Use Types Packs/Day Years [...] on file Sexual Orientation Not on file Last Filed Vital Signs Vital Sign Reading Time Taken Comments Blood Pressure 120/82 06/27/2023 3:30 PM EST Pulse 60 06/27/2023 3:30 PM EST Temperature 36.4 ??C (97.5 ??F) 06/27/2023 3:02 PM ES T Respiratory Rate 14 06/27/2023 3:15 PM EST Oxygen Saturation 92% 06/27/2023 3:30 PM EST Inhaled Oxygen Concentration - - Weight 93 kg (205 lb) 09/09/2023 1:27 PM EDT Height 167.6 cm (5' 6) 09/09/2023 1:27 PM EDT Body Mass Index 33.09 09/09/2023 1:27 PM EDT Plan of Treatment Health Maintenance Due Date Last Done Comments Hepatitis C Screening 11/18/1961 Tdap adult 11/18/1962 Tetanus vaccine 11/18/1962 Zoster vaccine (1 of 2) 11/18/1993 Bone Density Scan 11/18/2008 Pneumoccocal Vaccine: 65+ (1 of 1 - PCV) 11/18/2008 Covid-19 Vaccine (1 - 2022-2 4 season) 2024 Influenza (Flu) vaccine (1 o f 1 - Influenza standard series) 03/01/2024 Breast Cancer screening Discontinued 03/05/20, 02/20/2022, 01/24/2021, Additional history exists Medical Devices Implanted Type Area Parking Worker Device Identifier Shelf Expiration Date Model / Serial / Lot Breast Clip- 7 Implanted:Qty: 1 on 05/28/2017 by Alona Nielsen MD Breast Clip Left: Breast [id number] / / [id number] Description:farhan Cable,Cut,Edg, Blnt,Ss,3tpr ([id number]) - [id number] Implanted:Qty: 4 on 03/05/2019 by Ryan Lynch MD at [facility] IMPLANTS N/A: Sternum [employer] - RTI SURGIC 08/07/2023 [id number] / / [id number] Screw 3.5x26mm Nlck Ft Variax ([id number]) (Autoreq) - [id number] Implanted:Qty: 1 on 06/27/2023 by Crysatl Hess MD at [facility] IMPLANTS Right: Ankle [employer] [id number] / / Screw 3.5x20mm Nlck Ft Variax ([id number]) (Autoreq) - [id number] Implanted:Qty: 2 on 06/27/2023 by Crystal Hess MD at [facility] IMPLANTS Right: Ankle [employer] [id number] / / Screw 3.5x28mm Nlck Ft Variax ([id number]) (Autoreq) - [id number] Implanted:Qty: 1 on 06/27/2023 by Crystal Hess MD at [facility] IMPLANTS Right: Ankle [employer] [id number] / / Screw 3.5x30mm Nlck Ft Variax ([id number]) (Autoreq) - [id number] Implanted:Qty: 1 on 06/27/2023 by Crystal Hess MD at [facility] IMPLANTS Right: Ankle [employer] [id number] / / Screw 3.5x20mm Lck Ft Ti Variax ([id number]) (Autoreq) - [id number] Implanted:Qty: 1 on 06/27/2023 by Crystal Hess MD at [facility] IMPLANTS Right: Ankle [employer] [id number] / / Screw 3.5x26mm Lck Ft Ti Variax ([id number]) (Autoreq) - [id number] Implanted:Qty: 1 on 06/27/2023 by Crystal Hess MD at [facility] IMPLANTS Right: Ankle [employer] [id number] / / Screw 3.5x28mm Lck Ft Ti Variax ([id number]) (Autoreq) - [id number] Implanted:Qty: 1 on 06/27/2023 by Crystal Hess MD at [facility] IMPLANTS Right: Ankle [employer] [id number] / / Graft Bone Filler Injectable 5cc Dbm Putty Allomatrix ([id number]) (Autoreq) - [id number] Implanted:Qty: 1 on 06/27/2023 by Crystal Hess MD at [facility] IMPLANTS Right: Foot UNKNOWN - UNKNOWN 02/26/2028 [id number] / [id number] 1 / Graft Bone Filler 3cc Dbm Injectable Augment ([id number]) (Autoreq) - [id number] Implanted:Qty: 1 on 06/27/2023 by Crystal Hess MD at [facility] IMPLANTS Right: [facility] 09/25/2025 [id number] / / [id number] Screw 6.5x80mm Dennis Pt Ti Asnis Iii ([id number]) (Autoreq) - [id number] Implanted:Qty: 2 on 06/27/2023 by Crystal Hess MD at [facility] IMPLANTS Right: Foot [employer] [id number] / / Screw 4.0x50mm Dennis Pt Ti Asnis Iii ([id number]) (Autoreq) - [id number] Implanted:Qty: 1 on 06/27/2023 by Crystal Hess MD at [facility] IMPLANTS Right: Foot [employer] [id number] / / Screw 4.0x40mm Dennis Pt Ti Asnis Iii ([id number]) (Autoreq) - [id number] Implanted:Qty: 1 on 06/27/2023 by Crystal Hess MD at [facility] IMPLANTS Right: Foot [employer] [id number] / / Plate Y Shape 3 Hole Comp Lck Variax ([id number]) (Autoreq) - [id number] Implanted:Qty: 1 on 06/27/2023 by Crystal Hess MD at [facility] IMPLANTS Right: Ankle [employer] [id number] / / Plate Y Shape 4 Hole Comp Lck Variax ([id number]) (Autoreq) - [id number] Implanted:Qty: 1 on 06/27/2023 by Crystal Hess MD at [facility] IMPLANTS Right: Ankle [employer] [id number] / / Procedures Procedure Name Priority Date/Time Associated Diagnosis Comments MAMMO SCREENING CAD AND YAMIL BILATERAL Routine 03/05/2023 9:56 AM EDT Malignant neoplasm of upper-inner quadrant of left breast in female, estrogen receptor positive Breast cancer screening by mammogram from Last 3 Months or Most Recently Relevant to Health Maintenance Results * Mammo Screening Cad and Yamil Bilateral (03/05/2023 9:56 AM EDT) Anatomical Region Laterality Modality Breast Bilateral Mammography Impressions 03/05/2023 10:10 AM EDT Stable post treatment changes. No mammographic evidence of malignancy. BI-RADS CATEGORY 2: Benign RECOMMENDATION: Routine screening. A result letter has been sent to this patient by [facility]. * ??Regular screening mammograms starting at age 40 reduces the risk of from breast cancer. * ??All screening tests have both risks and benefits. These risks and benefits should be assessed for each individual patient through discussion with their provider to determine their preferred breast cancer screening schedule. * ??Women should report any breast changes to a health care provider right away. * ??Some women, because of their family history, a genetic tendency, or other factors, should be screened with annual breast MRI as well as with mammograms. (The number of women who fall into this category is very small). Patients and health care providers should discuss each patients history to decide if earlier screening and/or breast MRI are appropriate. * ??Screening should continue as long as a woman is in good health and is expected to live 10 years or longer. * ??Screening mammography may not detect 10-15% of breast cancers. Thank you for letting us participate in the care of this patient. ??If you are a health care provider and have any questions regarding this report, please contact the number below. ??For patients who have questions please contact the health career resource technician that requested your imaging first. ? Electronically signed by: Billie Parker MD, [facility] ([phone]), at 03/05/2023 10:10 AM Narrative 03/05/2023 10:10 AM EDT EXAMINATION: MAMMO SCREENING CAD AND YAMIL BILATERAL REASON FOR EXAM: Screening. History of left breast cancer. TECHNIQUE: CC and MLO views were obtained of the bilateral breast(s). Computer aided detection was used. 3D tomosynthesis images were obtained in addition to 2D images. COMPARISON: Comparison was made to the prior relevant examinations. BREAST DENSITY: There are scattered areas of fibroglandular density. FINDINGS: There are no suspicious microcalcifications, masses, or areas of distortion. There are post surgical changes in the left breast. Kasey Delgado APRN IMG MAMMO ORD ERABLES from Last 3 Months or Most Recently Relevant to Health Maintenance Advance Directives Documents on File Type Date Recorded Patient Bander Expl anation Advance Directives and Livin g Will 08/16/2017 10:53 AM * Full Code (Latest Code Status on File) Date Activated Date Inactivated Comments 04/10/2019 9:44 AM 04/11/2019 4:40 AM Question Answer Comments Does patient have capacity to make decision: Yes * Full Code Date Activated Date Inactivated Comments 03/05/2019 11:36 AM 03/09/2019 5:15 PM Question Answer Comments Does patient have capacity to make decision: Yes * Full Code Date Activated Date Inactivated Comments 03/05/2019 7:20 AM 03/05/2019 11:36 AM Question Answer Comments Does patient have capacity to make decision: Yes * Full Code Date Activated Date Inactivated Comments 02/24/2019 10:11 AM 02/24/2019 4:52 PM Question Answer Comments Does patient have capacity to make decision: Yes * Full Code Date Activated Date Inactivated Comments 09/10/2017 1:48 PM 09/11/2017 4:35 AM Question Answer Comments Does patient have capacity to make decision: Yes Care Teams Classics Teacher Relationship Specialty Start Date End Date Angie Alonzo MD [address] [place] [address] PCP - General Family Medicine 06/25/17
--- OUTSIDE RECORDS SUMMARY | 2024-03-11 15:13 | XMS_ITS | Encounter Summary ---
Author Organization [facility] Address [facility] [place] [address] Care Team Providers Care Gliding Pilot Instructor Name Role Phone Angie Alonzo MD Primary Care Provider [phone] Encounter Details Date Type Department Care Team (Latest Contact Info) Description 09/09/2023 Travel Social History Tobacco Use Types Packs/Day [...] on filedocumented in this encounter Care Teams Gliding Pilot Instructor Relationship Specialty Start Date End Date Angie Alonzo MD [address] [place] [address] PCP - General Family Medicine 06/25/17 documented as of this encounter
--- OUTSIDE RECORDS SUMMARY | 2024-03-11 15:13 | XMS_ITS | Encounter Summary ---
Author Organization [facility] Address [facility] [place] [address] Care Team Providers Care Director Transition Name Role Phone Angie Alonzo MD Primary Care Provider [phone] Encounter Details Date Type Department Care Team (Latest Contact Info) Description 06/27/2023 9:29 AM EST - 06/27/2023 4:13 PM EST Hospital Encounter [facility] [place] [id number] Crystal Hess MD [facility] [place] [address] Posterior tibial tendon dysfunction (PTTD) of right lower extremity Discharge Disposition: Home Social History Tobacco Use Types Packs/Day Years [...] closest emergency room or call the hospital quencher operator at [phone] and ask for physician travel sales consultant covering for your physician. Questions or problems after 5pm or on a weekend: Call the [facility] quencher operator at and ask for the physician travel sales consultant covering for your doctor. At 945am you [...] after hours and ask for the anesthesiologist travel sales consultant. * Patient Instructions* Dewayne Cerna MD - [...] is a short acting narcotic pain medication. Qvev-rpk-ohnaazb Tylenol (acetaminophen) should be taken in addition [...] important in helping to prevent this. An clia-qmw-ddntwfk stool softener can also help prevent or [...] Time Provider Department Center 07/09/2023 12:30 PM [facility] DX ROOM 1 Xray [facility] Rad 07/09/2023 1:30 PM Rene Tubbs PA [facility] ORTH 3C [facility] If you have questions or concerns please contact our [facility] office Saturday through Saturday, 8 AM - [...] DAY 04/24/2023 MULTIVITAMIN ORAL 1 tablet. 09/01/2012 [place]-3 Fatty Acids 100 mg Tablet, Chewable daily. 03/28/2022 b complex vitamins Tablet 1 tablet. 03/28/2022 azelastine (ASTELIN) 137 mcg (0.1 %) Aerosol, [place] SPRAY 1 SPRAY INTO BOTH NOSTRILS ONCE [...] blood-glucose meter (FREESTYLE) Kit 1 each by [facility] [place]Non-Drug; Combo Route) route as [...] Tube Placement Left 04/10/2019 Adis Oliveira MD [facility] INTERVENTIONL RAD JOINT REPLACEMENT hip right ORTHOPEDIC SURGERY R hip OVARY REMOVAL PRO ADJACENT TISSUE TRANSFER/REARRANGE TRUNK 10.1-30.0CM Left 07/04/2017 ADJ.TISSUE TRANSFER, REARRANGEMENT, TRUNK,10.1 TO 30 SQ CM (WRVU 8.78) performed by Ashley Farooq MD at [facility] OR [facility] BX/REMV, LYMPH NODE, DEEP AXILL Left 07/04/2017 BIOPSY OR EXCISION OF LYMPH NODE(S), OPEN, DEEP AXILLARY NODE(S) (WRVU 6.43) performed by Ashley Farooq MD at [facility] OR [facility] CABG, ARTERIAL, SINGLE N/A 03/05/2019 @CABG, USING ARTERIAL GRAFT;SINGLE ARTERIAL GRAFT (WRVU 33.75) performed by Ryan Lynch MD at [facility] OR [facility] CABG, ARTERY-VEIN, THREE N/A 03/05/2019 @CABG; 3 VENOUS GRAFTS & ARTERIAL GRAFT (WRVU 10.49) performed by Ryan Lynch MD at [facility] OR [facility] ENDOSCOPY W/VIDEO-ASST VEIN HARVEST, CABG N/A 03/05/2019 ENDOSCOPIC HARVEST VEIN(S) FOR CABG (WRVU 0.31) performed by Ryan Lynch MD at [facility] OR PRO INTRAOP SENTINEL LYMPH ID W/DYE INJECTION Left 07/04/2017 INTRAOPERATIVE ID (MAPPING) SENTINEL LYMPH NODE,INCLUDES INJECTION (WRVU 2.5) performed by Ashley Farooq MD at [facility] MAIN OR PRO MASTECTOMY PARTIAL Left 07/04/2017 MASTECTOMY PARTIAL (WRVU 10.13) performed by Ashley Farooq MD at [facility] MAIN OR Home Medications: Medications Prior to Admission Medication Sig Dispense Refill Last Dose MULTIVITAMIN ORAL 1 tablet. [place]-3 Fatty Acids 100 mg Tablet, Chewable daily. b complex vitamins Tablet 1 tablet. empagliflozin (Jardiance) 10 mg tablet daily. 06/22/2023 pantoprazole (PROTONIX) 20 mg Tablet, Delayed Release (E.C.) Take 20 mg by mouth daily. 06/27/2023 aspirin 81 mg Tablet, Chewable Take 81 mg by mouth daily. 06/26/2023 azelastine (ASTELIN) 137 mcg (0.1 %) Aerosol, [place] SPRAY 1 SPRAY INTO BOTH NOSTRILS ONCE [...] blood-glucose meter (FREESTYLE) Kit 1 each by [facility] [place]Non-Drug; Combo Route) route as [...] plan to proceed to OR with Dr. Hess for triple arthrodesis and possible Delphine procedure. Patient Pharmacy for outpatient medications: [facility] Pain medications to prescribe:Tramadol, ibuprofen and tylenol alternating WB status: NWB x 6 weeks Postop Dressing: Splint - leave in place until clinic follow up DVT prophylaxis: ASA 81 mg BID x 6 weeks Follow up: 2 week(s) documented in this encounter Miscellaneous Notes * Op Note - Crystal Hess MD - 06/27/2023 12:23 PM EST [facility] Operative Note Patient Name: Abimbola Dumas : [id number] MR#: [id number] Case Date: 06/27/2023 Surgeon: Surgeon(s) and Role: [...] Implant Name Type Inv. Item Serial No. Plate Grainer Lot No. LRB No. Used Action GRAFT BONE FILLER INJECTABLE 5CC DBM PUTTY ALLOMATRIX ([id number]) (AutoReq) - [id number] IMPLANTS GRAFT BONE FILLER INJECTABLE 5CC DBM PUTTY ALLOMATRIX ([id number]) (AutoReq) [id number] UNKNOWN - UNKNOWN Right 1 Implanted GRAFT BONE FILLER 3CC DBM INJECTABLE AUGMENT ([id number]) (AutoReq) - [id number] IMPLANTS GRAFT BONE FILLER 3CC DBM INJECTABLE AUGMENT ([id number]) (AutoReq) [facility] [id number] Right 1 Implanted SCREW 6.5X80MM ALAN PT TI ASNIS III ([id number]) (AutoReq) - [id number] IMPLANTS SCREW 6.5X80MM ALAN PT TI ASNIS III ([id number]) (AutoReq) [employer] Right 2 Implanted SCREW 4.0X50MM ALAN PT TI ASNIS III ([id number]) (AutoReq) - [id number] IMPLANTS SCREW 4.0X50MM ALAN PT TI ASNIS III ([id number]) (AutoReq) [employer] Right 1 Implanted SCREW 4.0X40MM ALAN PT TI ASNIS III ([id number]) (AutoReq) - [id number] IMPLANTS SCREW 4.0X40MM ALAN PT TI ASNIS III ([id number]) (AutoReq) [employer] Right 1 Implanted PLATE Y SHAPE 3 HOLE COMP LCK VARIAX ([id number]) (AutoReq) - [id number] IMPLANTS PLATE Y SHAPE 3 HOLECOMP LCK VARIAX ([id number]) (AutoReq) [employer] Right 1 Implanted PLATE Y SHAPE 4 HOLE COMP LCK VARIAX ([id number]) (AutoReq) - [id number] IMPLANTS PLATE Y SHAPE 4 HOLECOMP LCK VARIAX ([id number]) (AutoReq) [employer] Right 1 Implanted SCREW 3.5X26MM NLCK FT VARIAX ([id number]) (AutoReq) - [id number] IMPLANTS SCREW 3.5X26MM NLCK FT VARIAX ([id number]) (AutoReq) [employer] [facility] [employer] Right 1 Implanted SCREW 3.5X20MM NLCK FT VARIAX ([id number]) (AutoReq) - [id number] IMPLANTS SCREW 3.5X20MM NLCK FT VARIAX ([id number]) (AutoReq) [employer] [facility] [employer] Right 2 Implanted SCREW 3.5X28MM NLCK FT VARIAX ([id number]) (AutoReq) - [id number] IMPLANTS SCREW 3.5X28MM NLCK FT VARIAX ([id number]) (AutoReq) [employer] [facility] [employer] Right 1 Implanted SCREW 3.5X30MM NLCK FT VARIAX ([id number]) (AutoReq) - [id number] IMPLANTS SCREW 3.5X30MM NLCK FT VARIAX ([id number]) (AutoReq) [employer] Right 1 Implanted SCREW 3.5X20MM LCK FT TI VARIAX ([id number]) (AutoReq) - [id number] IMPLANTS SCREW 3.5X20MM LCK FT TI VARIAX ([id number]) (AutoReq) [employer] Right 1 Implanted SCREW 3.5X26MM LCK FT TI VARIAX ([id number]) (AutoReq) - [id number] IMPLANTS SCREW 3.5X26MM LCK FT TI VARIAX ([id number]) (AutoReq) [employer] Right 1 Implanted SCREW 3.5X28MM LCK FT TI VARIAX ([id number]) (AutoReq) - [id number] IMPLANTS SCREW 3.5X28MM LCK FT TI VARIAX ([id number]) (AutoReq) [employer] Right 1 Implanted Surgical Infection [...] 2:55 PM EST Fusion Foot Bones, Triple ([id number]) 06/27/2023 11:33 AM EST Posterior tibial tendon [...] tendon, and bursa documented in this encounter Administered Medications Inactive [...] Given 06/27/2023 9:55 AM EST 975 mg lactated ringers infusion 1,000 mL, at 100 [...] (Due) documented in this encounter Care Teams Director Transition Relationship Specialty Start Date End Date Angie Alonzo MD [address] [facility] [address] [place] [address] PCP - General Family Medicine 06/25/17 documented as of this encounter
--- OUTSIDE RECORDS SUMMARY | 2024-03-11 15:13 | XMS_ITS | Encounter Summary ---
Author Organization [facility] Address [facility] [place] [address] Care Team Providers Care Roller Skate Repairer Name Role Phone Angie Alonzo MD Primary Care Provider [phone] Encounter Details Date Type Department Care Team (Latest Contact Info) Description 09/09/2023 12:47 PM EDT - 09/09/2023 11:59 PM EDT Hospital Encounter XRay at [address] [phone] Posterior tibial tendon dysfunction s/p R triple arthrodeiss 06/27/23 (Faro) Discharge Disposition: Home Social History Tobacco Use [...] on file documented as of this encounter Medications at Time of Discharge Medication Sig Dispensed Refills Start Date End Date furosemide (Lasix) 40 mg tablet Take 1 tablet by mouth Daily at Noon. 07/26/2023 OneTouch Ultra Test Strip USE TO TEST ONCE A DAY 04/24/2023 lancets Misc by Misc.(Non-Drug; Combo Route) route. MULTIVITAMIN ORAL 1 tablet. 09/01/2012 [place]-3 Fatty Acids 100 mg Tablet, Chewable daily. 03/28/2022 b complex vitamins Tablet 1 tablet. 03/28/2022 azelastine (ASTELIN) 137 mcg (0.1 %) Aerosol, [place] SPRAY 1 SPRAY INTO BOTH NOSTRILS ONCE [...] blood-glucose meter (FREESTYLE) Kit 1 each by [facility].(Non-Drug; Combo Route) route as needed for Other. aspirin 81 mg Tablet, Chewable Take 81 mg by mouth daily. documented as of this encounter Plan of Treatment Not on file documented as of this encounter Procedures Procedure Name Priority Date/Time Associated Diagnosis Comments XR FOOT MIN 3 VIEWS RIGHT Routine 09/09/2023 1:03 PM EDT Posterior tibial tendon dysfunction s/p R triple arthrodeiss 06/27/23 (Faro) documented in this encounter Results * XR Foot Min [...] who have questions please contact the health certified caregiver that requested your imaging first. ? Narrative 09/09/2023 2:57 PM EDT EXAMINATION: XR [...] First metatarsophalangeal joint space narrowing. Procedure Note Sin, Marissa M, MD - 09/09/2023 EXAMINATION: XR FOOT MIN [...] patients who have questions please contactthe health certified caregiver that requested your imaging first. Crystal Hess MD IMG DX ORDERABLES documented in this encounter Visit Diagnoses Diagnosis Posterior tibial tendon dysfunction s/p R triple arthrodeiss 06/27/23 (Deshawn) Other disorders of synovium, tendon, and bursa documented in this encounter Care Teams Roller Skate Repairer Relationship Specialty Start Date End Date Angie Alonzo MD [facility] [address] [place] [address] PCP - General Family Medicine 06/25/17 documented as of this encounter
--- OUTSIDE RECORDS SUMMARY | 2024-03-11 15:13 | XMS_ITS | Encounter Summary ---
Author Organization [facility] Address [facility] [place] [address] Care Team Providers Care Bender Machine Operator Name Role Phone Angie Alonzo MD Primary Care Provider [phone] Reason for Visit * Reason Comments Follow Up Surgery NXR DOS: 06/27/23 RIGHT ANKLE FUSION- FARO - WOUND CHECK Encounter Details Date Type Department Care Team (Late st Contact Info) Description 07/26/2023 3:00 PM EST Office [place] [phone] Rene Tubbs, [facility] [place] [address] Delayed wound healing [T14.8XXD] Social History Tobacco Use Types Packs/Day Years Used Date Smoking Tobacco: Never Smokeless Tobacco: Never Alcohol Use Standard Drinks/Week Comments Never 0 (1 standard drink = 0.6 oz pur e alcohol) very occasional IPV Inpatient Questions Answer Date Recorded Does [...] - Inhaled Oxygen Concentration - - Weight 93 kg (205 lb) 07/26/2023 2:21 PM EST Height 167.6 cm (5' 6) 07/26/2023 2:21 PM EST Body Mass Index 33.09 07/26/2023 2:21 PM EST documented in this encounter Progress Notes * Rene Tubbs PA - 07/26/2023 3:00 PM EST Images from the original note were not included. PATIENT NAME: Abimbola Dumas AGE: 77 y.o. MR#: [id number] DATE OF VISIT: 07/26/2023 STAFF: Rene Tubbs PA-C FOLLOW UP FOR: Right triple arthrodesis with Dr. Hess on 06/27/23 HISTORY OF PRESENT ILLNESS: Ms. Dumas is a 77 y.o. female who comes into clinic today for follow up of the above surgery. She is doing well. She reports last week one of the nurses and her family has removed the sutures from her incision after they send me a photo I approved of them being removed. Since then she has had some increased swelling due to a lack of her ability to elevate and this has caused dehiscence to happen. She denies any fevers drainage or muscle aches. Medications and Allergies were reviewed in eD-H [...] dysfunction s/p R triple arthrodeiss 06/27/23 (Deshawn) M76.829 PAST SURGICAL HX: Past Surgical History: Procedure Laterality Date BREAST BIOPSY BREAST LUMPECTOMY Left 07/2017 BREAST SURGERY R lumpectomy, benign BREAST SURGERY Right ? patient states benign surgery years ago CHOLECYSTECTOMY HYSTERECTOMY oophorectomy IR CHEST TUBE PLACEMENT LEFT 04/10/2019 IR Chest Tube Placement Left 04/10/2019 Adis Oliveira MD [facility] INTERVENTIONL RAD JOINT REPLACEMENT hip right ORTHOPEDIC SURGERY R hip OVARY REMOVAL PRO ADJACENT TISSUE TRANSFER/REARRANGE TRUNK 10.1-30.0CM Left 07/04/2017 ADJ.TISSUE TRANSFER, REARRANGEMENT, TRUNK,10.1 TO 30 SQ CM (WRVU 8.78) performed by Ashley Farooq MD at [facility] MAIN OR PRO BX/REMV, LYMPH NODE, DEEP AXILL Left 07/04/2017 BIOPSY OR EXCISION OF LYMPH NODE(S), OPEN, DEEP AXILLARY NODE(S) (WRVU 6.43) performed by Ashley Farooq MD at [facility] MAIN OR PRO CABG, ARTERIAL, SINGLE N/A 03/05/2019 @CABG, USING ARTERIAL GRAFT;SINGLE ARTERIAL GRAFT (WRVU 33.75) performed by Ryan Lynch MD at [facility] MAIN OR [facility] CABG, ARTERY-VEIN, THREE N/A 03/05/2019 @CABG; 3 VENOUS GRAFTS & ARTERIAL GRAFT (WRVU 10.49) performed by Ryan Lynch MD at [facility] MAIN OR PRO ENDOSCOPY W/VIDEO-ASST VEIN HARVEST, CABG N/A 03/05/2019 ENDOSCOPIC HARVEST VEIN(S) FOR CABG (WRVU 0.31) performed by Ryan Lynch MD at [facility] MAIN OR PRO FUSION FOOT BONES, TRIPLE Right 06/27/2023 ARTHRODESIS, TRIPLE (WRVU 13.42) performed by Crystal Hess MD at [facility] OSC PRO INTRAOP SENTINEL LYMPH ID W/DYE INJECTION Left 07/04/2017 INTRAOPERATIVE ID (MAPPING) SENTINEL LYMPH NODE,INCLUDES INJECTION (WRVU 2.5) performed by Ashley Farooq MD at [facility] MAIN OR PRO MASTECTOMY PARTIAL Left 07/04/2017 MASTECTOMY PARTIAL (WRVU 10.13) performed by Ashley Farooq MD at [facility] MAIN OR FAMILY HX: Family History Problem [...] Lungs: no extra work of breathing Musculoskeletal: Right lower extremity exam reveals that the incision is slightly dehisced with some slough in the wound bed. No signs of drainage or tunneling is present. DIAGNOSTIC STUDIES: No new diagnostics performed today. ASSESSMENT: Status post the above procedure. Some wound dehiscence from excessive swelling of the lateral incisions. PLAN: Sutures were removed at 3 weeks postop however her increased swelling has caused the lateral incision to dehisce slightly. I have given her Aquacel Ag ribbon's to place underneath the gauze and dressed it with cover roll. I have informed her to change this once to twice a day depending on the drainage. She will send me a picture next week to let me know how the incision is healing. She will set up a in person follow-up in 2 weeks with a repeat x-ray. We may consider getting her weightbearing astolerated in her boot at that time but if she is continuing to have wound healing issues I may keepher from walking a bit longer to allow healing. We are doing a full follow-up in 1 week as opposed to an in person because of the distance that they need to drive in order to get here. The patient expressed agreement with and understanding of this plan of care. The patient understands to contact us if they have any other questions or concerns. The above documentation was completed using [employer] voice recognition software. Rene Tubbs PA-C, [facility] Department of Orthopaedics [facility] Pager [phone] documented in this encounter Plan of Treatment Not on file documented as of this encounter Visit Diagnoses Diagnosis Delayed wound healing [T14.8XXD] Open wound(s) (multiple) of unspecified site(s), complicated documented in this encounter Care Teams Bender Machine Operator Relationship Specialty Start Date End Date Angie Alnozo MD [facility] [address] [place] [address] PCP - General Family Medicine 06/25/17 documented as of this encounter
--- OUTSIDE RECORDS SUMMARY | 2024-03-11 15:13 | XMS_ITS | Encounter Summary ---
Author Organization [facility] Address [facility] [place] [address] Care Team Providers Care Seo Analyst Name Role Phone Angie Alonzo MD Primary Care Provider [phone] Encounter Details Date Type Department Care Team (Late st Contact Info) Description 08/07/2023 Telephone [place] [phone] Rene Tubbs, PA [facility] [place] [address] Social History Tobacco Use Types Packs/Day Years [...] encounter Miscellaneous Notes * Telephone Encounter - Hannah Ag - 08/07/2023 12:56 PM EST Images from the original note were not included. Updated picture of patient foot: documented in this encounter Plan of Treatment Not on file documented as of this encounter Visit Diagnoses Not on filedocumented in this encounter Care Teams Seo Analyst Relationship Specialty Start Date End Date Angie Alonzo MD [address] [place] [address] PCP - General Family Medicine 06/25/17 documented as of this encounter
--- OUTSIDE RECORDS SUMMARY | 2024-03-11 15:13 | XMS_ITS | Encounter Summary ---
Author Organization [facility] Address [facility] [place] [address] Care Team Providers Care Mushroom Laborer Name Role Phone Angie Alonzo MD Primary Care Provider [phone] Encounter Details Date Type Department Care Team (Latest Contact Info) Description 08/09/2023 9:32 AM EST - 08/09/2023 11:59 PM [facility] Hospital Encounter XRay at [address] [phone] Posterior tibial tendon dysfunction s/p R triple arthrodeiss 06/27/23 (Faro); Right foot pain Discharge Disposition: Home Social History Tobacco Use [...] Route) route. MULTIVITAMIN ORAL 1 tablet. 09/01/2012 [place]-3 Fatty Acids 100 mg Tablet, Chewable daily. 03/28/2022 b complex vitamins Tablet 1 tablet. 03/28/2022 azelastine (ASTELIN) 137 mcg (0.1 %) Aerosol, Jones SPRAY 1 SPRAY INTO BOTH NOSTRILS ONCE [...] blood-glucose meter (FREESTYLE) Kit 1 each by [facility].(Non-Drug; Combo Route) route as needed for Other. aspirin 81 mg Tablet, Chewable Take 81 mg by mouth daily. empagliflozin (Jardiance) 10 mg tablet daily. 01/28/2023 09/09/2023 documented as of this encounter Plan of Treatment Not on file documented as of this encounter Procedures Procedure Name Priority Date/Time Associated Diagnosis Comments XR FOOT MIN 3 VIEWS RIGHT Routine 08/09/2023 9:56 AM EST Posterior tibial tendon dysfunction s/p R triple arthrodeiss 06/27/23 (Faro) Right foot pain documented in this encounter Results * XR Foot Min 3 views Right (Generic) (08/09/2023 9:56 AM EST) Anatomical Region Laterality Modality Foot Right Digital Radiogra phy Impressions 08/09/2023 8:09 PM EST Status post triple arthrodesis with no hardware complication. Narrowing of the Chopart and subtalar joint spaces. Thank you for letting us participate in the care of this patient. ??If you are a health care provider and have any questions regarding this report, please contact the number below. ??For patients who have questions please contact the health career center advisor that requested your imaging first. ? Electronically signed by: Marissa Arroyo MD, [facility] ([phone]), at 08/09/2023 8:09 PM Narrative 08/09/2023 8:09 PM EST EXAMINATION: XR FOOT MIN 3 VIEWS RIGHT (GENERIC) CLINICAL HISTORY: right foot pain and surgery M76.829, Posterior tibial tendinitis, unspecified leg - M79.671, Pain in right foot (as entered by ordering provider in the order requisition) TECHNIQUE: Nonweightbearing AP, oblique, lateral views of the right foot. COMPARISON: Right foot radiographs 07/09/2023. FINDINGS: Postoperative changes status post triple arthrodesis. Hardware is unchanged in position. Hardware is intact. There is narrowing of the Chopart joint spaces and the posterior subtalar joint, but the joint space lucencies remain visible. There is soft tissue swelling of the foot and ankle. Trace tibiotalar joint effusion. Procedure Note Marissa Arroyo MD - 08/09/2023 EXAMINATION: XR FOOT MIN 3 VIEWS RIGHT (GENERIC) CLINICAL HISTORY: right foot pain and surgery M76.829, Posterior tibial tendinitis, unspecified leg - M79.671, Pain inright foot (as entered by ordering provider in the order requisition) TECHNIQUE: Nonweightbearing AP, oblique, lateral views of the right foot. COMPARISON: Right foot radiographs 07/09/2023. FINDINGS: Postoperative changes status post triple arthrodesis. Hardware isunchanged in position. Hardware is intact. There is narrowing of the Chopart jointspaces and the posterior subtalar joint, but the joint space lucencies remainvisible. There is soft tissue swelling of the foot and ankle. Trace tibiotalar joint effusion. IMPRESSION Status post triple arthrodesis with no hardware complication. Narrowing ofthe Chopart and subtalar joint spaces. Thank you for letting us participate in the care of this patient. If youare a health care provider and have any questions regarding this report,please contact the number below. For patients who have questions please contactthe health career center advisor that requested your imaging first. Crystal Hess MD IMG DX ORDERABLES documented in this encounter Visit Diagnoses Diagnosis Posterior tibial tendon dysfunction s/p R triple arthrodeiss 06/27/23 (Deshawn) Other disorders of synovium, tendon, and bursa Right foot pain Pain in limb documented in this encounter Care Teams Mushroom Laborer Relationship Specialty Start Date End Date Angie Alonzo MD [address] [place] [address] PCP - General Family Medicine 06/25/17 documented as of this encounter
--- OUTSIDE RECORDS SUMMARY | 2024-03-11 15:13 | XMS_ITS | Encounter Summary ---
Author Organization [facility] Address [facility] [place] [address] Care Team Providers Care Machine Setter Name Role Phone Angie Alonzo MD Primary Care Provider [phone] Encounter Details Date Type Department Care Team (Latest Contact Info) Description 07/09/2023 Travel Social History Tobacco Use Types Packs/Day [...] on filedocumented in this encounter Care Teams Machine Setter Relationship Specialty Start Date End Date Angie Alonzo MD [address] [place] [address] PCP - General Family Medicine 06/25/17 documented as of this encounter
--- OUTSIDE RECORDS SUMMARY | 2024-03-11 15:13 | XMS_ITS | Encounter Summary ---
[facility] Organization [facility] Address [facility] [place] [address] Care Team Providers Care Pharmaceutical Assistant Name Role Phone Angie Alonzo MD Primary Care Provider [phone] Encounter Details Date Type Department Care Team (Late st Contact Info) Description 06/27/2023 11:30 AM EST Anesthesia Event Outpatient [facility] [place] [address] Keysha Aldana MD [facility] [place] [address] Elif Rg MD [facility] [place] [address] Anesthesia Record Procedure Summary Procedure Name Responsible Anesthesiologist Anesthesia Start Time Anesthesia Stop Time ARTHRODESIS, TRIPLE (WRVU 13.42) (Right: Ankle) Keysha Aldana MD 06/27/23 1130 06/27/23 1506 Events Date Time Event Comment 06/27/2023 1130 Start 1134 AN Verify 1134 An Start Data 1137 Quick Note Induction on ho ld, case specific equipment being addressed. 1202 An Induction 1206 An Intubation 1207 Anesthesia Ready 1222 An Tourn Inflated 250 torr 1223 Procedure Start 1245 Break/Relief In I assumed ca re for Break Relief before which we: 1. Identified the patient 2. Identified the responsible provider(s) 3. Reviewed the pertinent medical history 4. Discussed the surgical plan and course 5. Reviewed intra-op anesthesia management and issues during anesthesia 6. Set expectations for the relief (and/or post-procedure) period 7. Allowed opportunity for questions and acknowledgement of understanding KEYSHA ALDANA MD 1316 Break/Relief Out 1421 An Tourn Deflated 120 minute s 1501 Extubation/LMA Out 1501 an stop data 1503 1506 Recovery or ICU Handoff Mary ent care was transferred to the destination unit staff after review of the patient's medical history, current anesthetic/surgical status and plan, according to the Provider Handoff Checklist. 1506 Stop Meds Name Total BUpivacaine 0.5% 30 mL Propofol 300 mg Propofol INF 823.48 mg IV Lidocaine 100 mg Ondansetron 8 mg ePHEDrine 5 mg ceFAZolin (Ancef) 2 g in dextrose 5% 100 mL infusion 2 g dexmedeTOMIDine 4 mcg labetalol 10 mg ketorolac 15 mg fentaNYL (PF) (50 mcg/mL) injection 25-1 00 mcg 50 mcg lactated ringers infusion 900 mL * Agents Name O2 * Blood No blood administrations on file. Lines, Drains, and Airways Type Details Placement Removal Incision 06/27/23; 1223; Righ t, medial; ankle 06/27/23 1223 by Heidi Tiwari RN Incision 06/27/23; 1223; Righ t, lateral; ankle 06/27/23 1223 by Heidi Tiwari RN Incision 06/27/23; 1311 06/27/23 1311 by Heidi Tiwari RN PIV 06/27/23; 1044; ymie-xca-xfnohz catheter system; 22 gauge; Anatomical Landmarks; Anesthesia; 3; removed per policy/procedure; 06/27/23; 1540 06/27/23 1044 by Sosa Severino RN 06/27/23 1540 by Blu Ny RN Supraglottic Mask Ventilation: No t Attempted (0); LMA Type: iGel; LMA Size: 4; Inserted by: Kayleigh aldana; Removal Date: 06/27/23; Removal Time: 1501 06/27/23 1205 by Keysha Aldana MD 06/27/23 1501 by Renato Ron CRNA Supraglottic Mask Ventilation: No t Attempted (0); LMA Type: iGel; LMA Size: 4; Inserted by: Renato Ron CRNA; Removal Date: 06/27/23; Removal Time: 1501 06/27/23 1206 by Renato Ron CRNA 06/27/23 1501 by Renato Ron CRNA documented in this encounter Social History Tobacco Use Types Packs/Day Years [...] on file documented as of this encounter OR Notes * Anesthesia Postprocedure Evaluation - Keysha Aldana MD - 06/27/2023 3:09 PM EST Department of Anesthesiology Post-procedure Note Patient: Abimbola Dumas Procedure Summary Date: 06/27/23 Room / Location: [facility] [place] OR [address] [place] [address] [facility] Anesthesia Start: 1130 Anesthesia Stop: 1506 Procedure: ARTHRODESIS, TRIPLE (WRVU 13.42) (Right: Ankle) Diagnosis: Posterior tibial tendon dysfunction (PTTD) of right lower extremity (Right triple arthrodesis) Surgeons: Crystal Hess MD Responsible Provider: Keysha Aldana MD Anesthesia Type: general ASA Status: 3 All Anesthesia Providers: Anesthesiologist: Keysha Aldana MD [employer] CH[employer]: Renato Ron CRNA Vitals Value Taken Time BP 144/60 06/27/23 1503 Temp 36.4 ??C (97.5 ??F) 06/27/23 1502 Pulse 67 06/27/23 1508 Resp 16 06/27/23 1502 SpO2 93 % 06/27/23 1508 Pain Level 0 06/27/23 1502 Vitals shown include unfiled device data. Patient Location: PACU/[facility] Level of Consciousness: Awake and Alert Pain Management: Satisfactory Analgesia PONV: None Cardiovascular Status: At Baseline Respiratory Status: At Baseline Postoperative Fluid Status: Intravascular EUvolemia Possible Anesthetic Complications: NONE apparent at time of evaluation Final Primary Anesthesia Type: General (The anesthetic type performed was the same as planned.) Comments: Block working well * Anesthesia Procedure Notes - Yumiko Pereira MD - 06/27/2023 11:13 AM EST Associated Order(s): Anesthesia Block Anesthesia Block Date/Time: 06/27/2023 11:01 AM Start Time: 06/27/2023 11:01 AM End Time: 06/27/2023 11:11 AM Patient Location: [facility] The patient was greeted; the risks and benefits of the procedure were reviewed. Indication: Post-op Pain Control Post-op pain management at the request of surgeon. Block Type: Adductor canal block and sciatic sciatic/ popliteal nerve block Laterality: Right Position: Supine Prep: Mask, cap, sterile gloves, hand hygeine, patient draped and chlorhexidine Skin Anesthetic: Skin Anesthetic: Lidocaine 1% dose: 2 Block Technique: SonoPlex 21 10 cm Ultrasound Guided: YES and in-plane Ultrasound Image Saved Ultrasound guidance was used to identify the targeted neuronal structure. Ultrasound was also used to identify needle position and to identify tissue (bone, muscle, and blood vessels) to prevent inadvertent intraneural or intravascular needle placement and injection. The spread of local anesthetic was confirmed with live ultrasound imaging. Single-Shot: Single-shot Local Anesthetic Volume(s) Injected for Nerve Block: BUpivacaine 0.5% - Perineural 30 mL - 06/27/2023 11:10:00 AM Nerve Sensory/MotorTest: Events: no complications Notes: 22cc sciatic 8cc adductor canal Performed by: Resident/TIRE CHANGER AIRCRAFT: Yumiko Pereira MD Attending Physician: Keysha Aldana MD Authorized by: Keysha Aldana MD * Anesthesia Preprocedure Evaluation - Yumiko Pereira MD - 06/27/2023 10:39 AM EST Pre-Anesthesia Evaluation for: Abimbola Dumas a 77 y.o. female. Procedure(s): ARTHRODESIS, TRIPLE (WRVU 13.42) Patient Active Problem List Diagnosis Date Noted Breast calcifications on mammogram 01/24/2021 S/P CABG (coronary artery bypass graft) 03/05/2019 CAD (coronary artery disease) 02/25/2019 Malignant neoplasm of upper-inner quadrant of left breast in female, estrogen receptor positive 05/28/2017 Past Medical History: Diagnosis Date Antiplatelet or [...] Tube Placement Left 04/10/2019 Adis Oliveira MD [facility] INTERVENTIONL RAD JOINT REPLACEMENT hip right ORTHOPEDIC SURGERY R hip OVARY REMOVAL PRO ADJACENT TISSUE TRANSFER/REARRANGE TRUNK 10.1-30.0CM Left 07/04/2017 ADJ.TISSUE TRANSFER, REARRANGEMENT, TRUNK,10.1 TO 30 SQ CM (WRVU 8.78) performed by Ashley Farooq MD at [facility] MAIN OR PRO BX/REMV, LYMPH NODE, DEEP AXILL Left 07/04/2017 BIOPSY OR EXCISION OF LYMPH NODE(S), OPEN, DEEP AXILLARY NODE(S) (WRVU 6.43) performed by Ashley Farooq MD at [facility] MAIN OR PRO CABG, ARTERIAL, SINGLE N/A 03/05/2019 @CABG, USING ARTERIAL GRAFT;SINGLE ARTERIAL GRAFT (WRVU 33.75) performed by Ryan Lynch MD at [facility] MAIN OR PRO CABG, ARTERY-VEIN, THREE N/A 03/05/2019 @CABG; 3 VENOUS GRAFTS & ARTERIAL GRAFT (WRVU 10.49) performed by Ryan Lynch MD at [facility] MAIN OR PRO ENDOSCOPY W/VIDEO-ASST VEIN HARVEST, CABG N/A 03/05/2019 ENDOSCOPIC HARVEST VEIN(S) FOR CABG (WRVU 0.31) performed by Ryan Lynch MD at [facility] MAIN OR PRO INTRAOP SENTINEL LYMPH ID W/DYE INJECTION Left 07/04/2017 INTRAOPERATIVE ID (MAPPING) SENTINEL LYMPH NODE,INCLUDES INJECTION (WRVU 2.5) performed by Ashley Farooq MD at [facility] MAIN OR PRO MASTECTOMY PARTIAL Left 07/04/2017 MASTECTOMY PARTIAL (WRVU 10.13) performed by Ashley Farooq MD at [facility] MAIN OR Social History Tobacco Use Smoking status: Never Smokeless tobacco: Never Substance Use Topics Alcohol use: Never Comment: very occasional Social History Substance and Sexual Activity Drug Use No Allergies Allergen Reactions Penicillins PAT Penicillin Allergy Risk Assessment 06/04/2023: Low risk penicillin allergy. OK to receive full dose of cefazolin, cefuroxime, or any 3rd or 4th+ generation cephalosporin. Medications: MAR and/or home medications have been reviewed. Physical Exam: Preprocedure Vitals Current as of 06/26/23 1127 No BP, pulse, respiration, SpO2, or temperature recorded. 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 Plan discussed with TI[employer] CHANGER [employer]FT. Anesthesia Screening documented in this encounter Plan of Treatment Not on file documented as of this encounter Procedures Procedure Name Priority Date/Time Associated Diagnosis Comments ANESTHESIA BLOCK Routine 06/27/2023 11:0 1 AM EST documented in this encounter Results * Anesthesia Block (06/27/2023 11:01 AM EST) Narrative Keysha Aldana MD - 06/27/2023 11:01 AM EST Yumiko Pereira MD ? 06/27/2023 11:14 AM Anesthesia Block Date/Time: 06/27/2023 11:01 AM Start Time: ??06/27/2023 11:01 AM End Time: ??06/27/2023 11:11 AM Patient Location: ??[facility] The patient was greeted; the risks and benefits of the procedure were reviewed. ?? Indication: ??Post-op Pain Control Post-op pain management at the request of surgeon. ?? Block Type: ??Adductor canal block and sciatic sciatic/ popliteal nerve block Laterality: ??Right Position: ??Supine Prep: ??Mask, cap, sterile gloves, hand hygeine, patient draped and chlorhexidine Skin Anesthetic: ??Skin Anesthetic: ??Lidocaine 1% ??dose: ??2 Block Technique: ?? SonoPlex ?? 21 ?? 10 cm ??Ultrasound Guided: ??YES and in-plane ??Ultrasound Image Saved ?Ultrasound guidance was used to identify the targeted neuronal structure. Ultrasound was also used to identify needle position and to identify tissue (bone, muscle, and blood vessels) to prevent inadvertent intraneural or intravascular needle placement and injection. The spread of local anesthetic was confirmed with live ultrasound imaging. ?Single-Shot: ??Single-shot Local Anesthetic Volume(s) Injected for Nerve Block: ?? BUpivacaine 0.5% - Perineural 30 mL - 06/27/2023 11:10:00 AM Nerve Sensory/MotorTest: ??Events: no complications ?? Notes: ?? 22cc sciatic 8cc adductor canal Performed by: ?? Resident/TIRE CHANGER AIRCRAFT: ? Yumiko Pereira MD ?? Attending Physician: ? Keysha Aldana MD Authorized by: Keysha Aldana MD ?? Keysha Aldana MD SWINE EXTENSION FIELD SPECIALIST [facility] documented in this encounter Visit Diagnoses Not on filedocumented in this encounter Administered Medications Inactive Administered Medications - up to 3 most recent administrations Medication Order MAR Action Action Date Dose Rate Site BUpivacaine (pf) (Marcaine) (5 mg/mL) 0.5% injection Perineural, Starting on Lawanda 06/27/23 at 1110, Until Lawanda 06/27/23 at 1110, Anesthesia Intra-op, Routine Given 06/27/2023 11:10 AM EST 30 mLs ceFAZolin (Ancef) 2 g in dextrose 5% 100 mL infusion 2 g, Intravenous, ONCE, 1 dose, On Lawanda 06/27/23 at 1130, Administer over 30 Minutes, Indication for (Active or Suspected): Prophylaxis Given 06/27/2023 12:12 PM EST 2 g dexmedeTOMIDine (Precedex) (4 mcg/mL) bolus injection (Anesthsia) Intravenous, PRN, Starting on Lawanda 06/27/23 at 1323, Until Lawanda 06/27/23 at 1506, Anesthesia Intra-op, Routine Given 06/27/2023 1:23 PM EST 4 mcg ePHEDrine sulfate (5 mg/mL) multi-dose injection Intravenous, PRN, Starting on Lawanda 06/27/23 at 1233, Until Lawanda 06/27/23 at 1506, Anesthesia Intra-op, Routine Given 06/27/2023 12:33 PM EST 5 mg fentaNYL (PF) (50 mcg/mL) injection 25-100 [...] Given 06/27/2023 11:06 AM EST 25 mcg ketorolac (Toradol) (30 mg/mL) injection Intravenous, PRN, Starting on Lawanda 06/27/23 at 1444, Until Lawanda 06/27/23 at 1506, Anesthesia Intra-op, Routine Given 06/27/2023 2:44 PM EST 15 mg labetaloL (Normodyne) (5 mg/mL) multi-dose injection Intravenous, PRN, Starting on Lawanda 06/27/23 at 1326, Until Lawanda 06/27/23 at 1506, Anesthesia Intra-op, Routine Given 06/27/2023 2:44 PM EST 5 mg Given 06/27/2023 1:26 PM EST 5 mg lactated ringers infusion 1,000 mL, at 100 mL/hr, Intravenous, CONTINUOUS, Starting on Lawanda 06/27/23 at 1000, Until Lawanda 06/27/23 at 1616, Day of Surgery (Day of Procedure) Restarted 06/27/2023 11:30 AM EST New Bag 06/27/2023 10:45 AM EST 1,000 mLs 100 mL/hr lidocaine (pf) (Xylocaine) (20 mg/mL) 2% injection syringe Intravenous, PRN, Starting on Lawanda 06/27/23 at 1202, Until Lawanda 06/27/23 at 1506, Anesthesia Intra-op, Routine Given 06/27/2023 12:05 PM EST 50 mg Given 06/27/2023 12:02 PM EST 50 mg ondansetron (pf) (Zofran) (2 mg/mL) injection Intravenous, PRN, Starting on Lawanda 06/27/23 at 1212, Until Lawanda 06/27/23 at 1506, Anesthesia Intra-op, Routine Given 06/27/2023 2:44 PM EST 4 mg Given 06/27/2023 12:12 PM EST 4 mg propofoL (Diprivan) (10 mg/mL) infusion Intravenous, CONTINUOUS PRN, Starting on Lawanda 06/27/23 at 1205, Until Lawanda 06/27/23 at 1506, Anesthesia Intra-op, Routine Rate/Dose Change 06/27/2023 12:56 PM EST 70 mcg/kg/min 38.472 mL/hr Rate/Dose Change 06/27/2023 12:12 PM EST 50 mcg/kg/min 27. 48 mL/hr New Bag 06/27/2023 12:05 PM EST 100 mcg/kg/min 54.96 mL /hr propofoL (Diprivan) 10 mg/mL bolus injection (Anesthesia) Intravenous, PRN, Starting on Lawanda 06/27/23 at 1202, Until Lawanda 06/27/23 at 1506, Anesthesia Intra-op Given 06/27/2023 2:54 PM EST 30 mg Given 06/27/2023 12:56 PM EST 30 mg Given 06/27/2023 12:07 PM EST 40 mg documented in this encounter Care Teams Pharmaceutical Assistant Relationship Specialty Start Date End Date Angie Alonzo MD [facility] [address] [facility] [address] [place] [address] PCP - General Family Medicine 06/25/17 documented as of this encounter
--- OUTSIDE RECORDS SUMMARY | 2024-03-11 15:13 | XMS_ITS | Encounter Summary ---
Author Organization [facility] Address [facility] [place] [address] Care Team Providers Care Horticultural Specialty Grower Field Name Role Phone Angie Alonzo MD Primary Care Provider [phone] Encounter Details Date Type Department Care Team (Late st Contact Info) Description 07/29/2023 Orders Only Orthopaedics at [address] [address] Rene Tubbs, [place] [facility] [place] [address] Posterior tibial tendon dysfunction s/p R triple arthrodeiss 06/27/23 (Faro); Right foot pain Social History Tobacco Use Types Packs/Day Years [...] who have questions please contact the health healthcare network consultant that requested your imaging first. ? Electronically signed by: Marissa Arroyo MD, [facility] ([phone]), at 08/09/2023 8:09 PM Narrative 08/09/2023 8:09 [...] patients who have questions please contactthe health healthcare network consultant that requested your imaging first. Electronically signed by: Marissa Arroyo MD, [facility]([phone]), at 08/09/2023 8:09 PM Crystal Hess MD IMG DX ORDERABLES documented in this encounter Visit Diagnoses Diagnosis Posterior tibial tendon dysfunction s/p R triple arthrodeiss 06/27/23 (Faro) Other disorders of synovium, tendon, and bursa Right foot pain Pain in limb Posterior tibial tendon dysfunction s/p R triple arthrodeiss 06/27/23 (Faro) Other disorders of synovium, tendon, and bursa Right foot pain Pain in limb documented in this encounter Care Teams Horticultural Specialty Grower Field Relationship Specialty Start Date End Date Angie Alonzo MD [address] [place] [address] PCP - General Family Medicine 06/25/17 documented as of this encounter
--- OUTSIDE RECORDS SUMMARY | 2024-03-11 15:13 | XMS_ITS | Encounter Summary ---
Author Organization [facility] Address [facility] [place] [address] Care Team Providers Care Meteorologist Liaison Name Role Phone Angie Alonzo MD Primary Care Provider [phone] Encounter Details Date Type Department Care Team (Late st Contact Info) Description 07/02/2023 [place]phone [place] [id number] Bunny Melendez MD [facility] [place] [address] Social History Tobacco Use Types Packs/Day Years Used Date Smoking Tobacco: Never Smokeless Tobacco: Never Alcohol Use Standard Drinks/Week Comments Never 0 (1 standard drink = 0.6 oz pur e alcohol) very occasional [facility] Inpatient Questions Answer Date Recorded Does Anyone [...] encounter Miscellaneous Notes * Telephone Encounter - Bunny Melendez MD - 07/02/2023 7:26 PM EST Orthopaedic Patient Phone Call Abimbola Dumas is a 77-year-old female status post right triple arthrodesis on 06/27/[address] Hess. Patient called on 07/01/2023 with concerns about postoperative swelling. See Dr. Cuellar's note for full details. Patient calls with continued concerns regarding her swelling. She notes that nothing has changed since her last call Dr. Schultz. She does note putting some minor weight on her right foot however her swelling has not changed at this time. She denies any pain in the foot. Additionally she denies erythema or drainage from her incision sites. She has not had no nausea vomiting fevers or chills. Since surgery she notes that she has been icing and elevating her right foot. Reassured patient that the postoperative swelling is normal. If she does not have any of the after mentioned symptoms she should continue to elevate to treat her swelling. Patient was encouraged to return to the ED for evaluation if she does develop any of the above mentioned symptoms including pain drainage erythema nausea vomiting fevers or chills. She has a follow-up with DUDLEY Oshea 07/09/23. She was encou raged to call back if there are any changes in the interim. Bunny Melendez MD 07/02/23 documented in this encounter Plan of Treatment Not on file documented as of this encounter Visit Diagnoses Not on filedocumented in this encounter Care Teams Meteorologist Liaison Relationship Specialty Start Date End Date Angie Alonzo MD [address] [place] [address] PCP - General Family Medicine 06/25/17 documented as of this encounter
--- OUTSIDE RECORDS SUMMARY | 2024-03-11 15:13 | XMS_ITS | Encounter Summary ---
Author Organization Formerly [facility], [facility] Address [facility] [place] [address] Care Team Providers Care Film Archivist Name Role Phone Angie Alonzo MD Primary Care Provider [phone] Reason for Visit * Reason Comments Follow-up DOS: 06/27/23 RIGHT ANKLE FUSION- FARO -WOUND CHECK Encounter Details Date Type Department Care Team (Late st Contact Info) Description 09/09/2023 2:00 PM EDT Office Visit Orthopaedics at [address] [phone] Rene Tubbs, PA [facility] [place] [address] Posterior tibial tendon dysfunction s/p R triple [...] Mass Index 33.09 09/09/2023 1:27 PM EDT documented in this encounter Progress Notes * Rene Tubbs PA - 09/09/2023 2:00 PM EDT Images from the original note were not included. PATIENT NAME: Abimbola Dumas AGE: 77 y.o. MR#: [id number] DATE OF VISIT: 09/09/2023 STAFF: Rene Tubbs PA-C FOLLOW UP FOR: Right triple arthrodesis with Dr. Hess on 06/27/23 HISTORY OF PRESENT ILLNESS: Ms. Dumas is a 77 y.o. female who comes into clinic today for follow up of the above surgery. She is doing well overall and has been weaning out of her boot. She still wears it outside but endorses she does not wear it anymore. She is using a cane to assist in ambulation while she is indoors. Medications and Allergies were reviewed in eD-H [...] Tube Placement Left 04/10/2019 Adis Oliveira MD [facility] INTERVENTIONL RAD JOINT REPLACEMENT hip right ORTHOPEDIC SURGERY R hip OVARY REMOVAL PRO ADJACENT TISSUE TRANSFER/REARRANGE TRUNK 10.1-30.0CM Left 07/04/2017 ADJ.TISSUE TRANSFER, REARRANGEMENT, TRUNK,10.1 TO 30 SQ CM (WRVU 8.78) performed by Ashley Farooq MD at [facility] MAIN OR PRO BX/REMV, LYMPH NODE, DEEP AXILL Left 07/04/2017 BIOPSY OR EXCISION OF LYMPH NODE(S), OPEN, DEEP AXILLARY NODE(S) (WRVU 6.43) performed by Ashley Farooq MD at [facility] MAIN OR PRO CABG, ARTERIAL, SINGLE N/A 03/05/2019 @CABG, USING ARTERIAL GRAFT;SINGLE ARTERIAL GRAFT (WRVU 33.75) performed by Ryan Lynch MD at [facility] MAIN OR [facility] CABG, ARTERY-VEIN, THREE N/A 03/05/2019 @CABG; 3 VENOUS GRAFTS & ARTERIAL GRAFT (WRVU 10.49) performed by Ryan Lynch MD at [facility] MAIN OR [facility] ENDOSCOPY W/VIDEO-ASST VEIN HARVEST, CABG N/A 03/05/2019 ENDOSCOPIC HARVEST VEIN(S) FOR CABG (WRVU 0.31) performed by Ryan Lynch MD at [facility] MAIN OR PRO FUSION FOOT BONES, TRIPLE Right 06/27/2023 ARTHRODESIS, TRIPLE (WRVU 13.42) performed by Crystal Hess MD at [facility] OSC PRO INTRAOP SENTINEL LYMPH ID W/DYE INJECTION Left 07/04/2017 INTRAOPERATIVE ID (MAPPING) SENTINEL LYMPH NODE,INCLUDES INJECTION (WRVU 2.5) performed by Ashley Farooq MD at [facility] MAIN OR PRO MASTECTOMY PARTIAL Left 07/04/2017 MASTECTOMY PARTIAL (WRVU 10.13) performed by Ashley Farooq MD at [facility] MAIN OR FAMILY HX: Family [...] use: No Sexual activity: Not on file 07/26/2023 General Health, Prior Treatments, PreExisting Condition, Health Habits, About You PROMIS-10 General Health Good PROMIS-10 Quality of Life Good PROMIS-10 Physical Health Good PROMIS-10 Mental Health Fair PROMIS-10 Social Activity Fair PROMIS-10 Everyday Activities Not at all PROMIS-10 Pain 1 PROMIS-10 Fatigue None PROMIS-10 Social Roles Fair PROMIS-10 Anxious or Depressed Never PROMIS PHYSICAL SCORE (range 16-68) 42.3 PROMIS MENTAL SCORE (range 21-68) 43.5 No data to display No data to display PHYSICAL EXAM: Ms. Dumas is a 77 y.o. female General appearance: in no acute distress, alert, cooperative Psych: cooperative with exam, appropriate Head: normocephalic, atraumatic EENT: EOMI grossly intact Neck: supple, trachea midline Cardiac: regular rate and rhythm by peripheral pulse Lungs: no extra work of breathing Musculoskeletal: Right foot and ankle exam reveals that the incisions are entirely healed. There isan aspect of the lateral incision at the distalmost portion that still has some slough over top. There is no evidence of drainage and the patient can dorsiflex to about 5 degrees with the knee straight. DIAGNOSTIC STUDIES: Right weightbearing foot x-rays were personally reviewed today. These reveal bone callus formation at the CC, ST, TM joints without evidence of hardware lucency or movement. The joint space at the talonavicular and subtalar joints are less visible than previous films. ASSESSMENT: Status post the above procedure. Doing well. PLAN: At this point in time the patient should continue her use of vitamin D daily. She will continue to wean out of her boot. At about 09/20/2023 she will start to use the boot just as backup. I would likeher to continue using Medihoney for the portion of her lateral incision that still is not completely healed. I would like to see her back in 2 months with a repeat weightbearing x-ray to ensure that she is still properly healing. The patient expressed agreement with and understanding of this plan of care. The patient understands to contact us if they have any other questions or concerns. The above documentation was completed using [employer] voice recognition software. Rene Tubbs PA-C, [facility] Department of Orthopaedics [facility] Pager [phone] documented in this encounter Plan of Treatment Not on file documented as of this encounter Visit Diagnoses Diagnosis Posterior tibial tendon dysfunction s/p R triple arthrodeiss 06/27/23 (Faro) Other disorders of synovium, tendon, and bursa documented in this encounter Care Teams Film Archivist Relationship Specialty Start Date End Date Angie Alonzo MD [facility] [address] [facility] [address] [place] [address] PCP - General Family Medicine 06/25/17 documented as of this encounter
--- OUTSIDE RECORDS SUMMARY | 2024-03-11 15:13 | XMS_ITS | Encounter Summary ---
Author Organization [facility] Address [facility] [place] [address] Care Team Providers Care Traffic Signal Repairer Name Role Phone Angie Alonzo MD Primary Care Provider [phone] Encounter Details Date Type Department Care Team (Late st Contact Info) Description 07/01/2023 [place] [phone] Oma Schultz MD [facility] [place] [address] Social History Tobacco Use Types Packs/Day Years Used Date Smoking Tobacco: Never Smokeless Tobacco: Never Alcohol Use Standard Drinks/Week Comments Never 0 (1 standard drink = 0.6 oz pur e alcohol) very occasional [facility] Inpatient Questions Answer Date Recorded Does [...] encounter Miscellaneous Notes * Telephone Encounter - Oma Schultz MD - 07/01/2023 6:00 AM EST ORTHOPAEDIC SURGERY TELEPHONE ENCOUNTER: Abimbola Dumas is a 77 y.o. female s/p R triple arthrodesis 06/[address] Hess. She calls with concerns about postoperative swelling. Overall, she feels very good, but is just checking in to ask if someswelling after surgery would be expected. She does feel like her ankle is swelling in the splint, but is still pretty comfortable. Her pain is very well-controlled and she has stopped taking pain meds as she has very minimal pain. She has no numbness or tingling, no erythema from exposed toes. Is able to move the toes without issue, and is describing good cap refill. She has been trying to elevate the right lower extremity while she is in a reclining chair. She denies any fever chills nausea or any other concerning symptoms postoperatively. I reassured her that some postoperative swelling would be expected and I recommended she try to elevate more aggressively above the level of the heart. She knows to call back should she develop any concerning symptoms of infection or decreased sensation to lower extremity, etc. Abimbola Case Codydave expressed understanding and was in agreement with the plan. Oma Schultz MD Orthopaedic Surgery [phone] documented in this encounter Plan of Treatment Not on file documented as of this encounter Visit Diagnoses Not on filedocumented in this encounter Care Teams Traffic Signal Repairer Relationship Specialty Start Date End Date Angie Alonzo MD [address] [place], [place] [address] [place] [address] PCP - General Family Medicine 06/25/17 documented as of this encounter
--- OUTSIDE RECORDS SUMMARY | 2024-03-11 15:13 | XMS_ITS | Encounter Summary ---
Author Organization [facility] Address [facility] [place] [address] Care Team Providers Care Warehouse And Receiving Supervisor Name Role Phone Angie lAonzo MD Primary Care Provider [phone] Encounter Details Date Type Department Care Team (Latest Contact Info) Description 08/09/2023 Travel Social History Tobacco Use Types Packs/Day [...] on filedocumented in this encounter Care Teams Warehouse And Receiving Supervisor Relationship Specialty Start Date End Date Angie Alonzo MD [address] [place] [address] PCP - General Family Medicine 06/25/17 documented as of this encounter
--- OUTSIDE RECORDS SUMMARY | 2024-03-11 15:13 | XMS_ITS | Encounter Summary ---
Author Organization [facility] Address [facility] [place] [address] Care Team Providers Care Wool Cleaner Name Role Phone Angie Alonzo MD Primary Care Provider [phone] Reason for Referral * Physical Therapy (Routine) - Closed Specialty Diagnoses / Procedures Referred By Mima rivera Referred To Contact Physical Therapy Diagnoses Posterior tibial tendon dysfunction Physical Therapy, Gilbert Marinelli [address],[facility] [address] [place] [address] Referral ID Status Reason Start Date Expiration Date V isits Requested Visits Authorized [id number] Closed Evaluate and Treat 08/09/2023 02/05/2024 12 12 Reason for Visit * Reason Comments Follow-up Right ankle fusion w ound check Encounter Details Date Type Department Care Team (Late st Contact Info) Description 08/09/2023 11:00 AM EST Office Visit Orthopaedics at [address] [phone] Rene Tubbs, PA [facility] [place] [address] Posterior tibial tendon dysfunction s/p R triple arthrodeiss 06/27/23 (Deshawn) Social History Tobacco Use Types Packs/Day Years [...] Concentration - - Weight 93 kg (205 lb 0.4 oz) 08/09/2023 10:47 AM EST Height 167.6 cm (5' 5.98) 08/09/2023 10:[address] Body Mass Index 33.11 08/09/2023 10:47 AM EST documented in this encounter Progress Notes * Rene Tubbs PA - 08/09/2023 11:00 AM EST Images from the original note were not included. PATIENT NAME: Abimbola Dumas AGE: 77 y.o. MR#: [id number] DATE OF VISIT: 08/09/2023 STAFF: Rene Tubbs PA-C FOLLOW UP FOR: Right triple arthrodesis with Dr. Hess on 06/27/23 HISTORY OF PRESENT ILLNESS: Ms. Dumas is a 77 y.o. female who comes into clinic today for follow up of The above surgery. She is doing well at this time and has been maintained her nonweightbearing status. She has been using Aquacel and gauze over it for lateral incision which has scabbed over. She is eager to be weightbearing at this time. Medications and Allergies were reviewed in eD-H [...] Tube Placement Left 04/10/2019 Adis Oliveira MD [facility] INTERVENTIONL RAD JOINT REPLACEMENT hip right ORTHOPEDIC SURGERY R hip OVARY REMOVAL PRO ADJACENT TISSUE TRANSFER/REARRANGE TRUNK 10.1-30.0CM Left 07/04/2017 ADJ.TISSUE TRANSFER, REARRANGEMENT, TRUNK,10.1 TO 30 SQ CM (WRVU 8.78) performed by Ashley Farooq MD at [facility] BX/REMV, LYMPH NODE, DEEP AXILL Left 07/04/2017 BIOPSY OR EXCISION OF LYMPH NODE(S), OPEN, DEEP AXILLARY NODE(S) (WRVU 6.43) performed by Ashley Farooq MD at [facility] MAIN OR PRO CABG, ARTERIAL, SINGLE N/A 03/05/2019 @CABG, USING ARTERIAL GRAFT;SINGLE ARTERIAL GRAFT (WRVU 33.75) performed by Ryan Lynch MD at [facility] MAIN OR [facility] CABG, ARTERY-VEIN, THREE N/A 03/05/2019 @CABG; 3 VENOUS GRAFTS & ARTERIAL GRAFT (WRVU 10.49) performed by Ryan Lynch MD at [facility]IN OR [facility] ENDOSCOPY W/VIDEO-ASST VEIN HARVEST, CABG N/A 03/05/2019 ENDOSCOPIC HARVEST VEIN(S) FOR CABG (WRVU 0.31) performed by Ryan Lynch MD at [facility] MAIN OR PRO FUSION FOOT BONES, TRIPLE Right 06/27/2023 ARTHRODESIS, TRIPLE (WRVU 13.42) performed by Crystal Hess MD at [facility] OSC PRO INTRAOP SENTINEL LYMPH ID W/DYE INJECTION Left 07/04/2017 INTRAOPERATIVE ID (MAPPING) SENTINEL LYMPH NODE,INCLUDES INJECTION (WRVU 2.5) performed by Ashley Farooq MD at [facility] MAIN OR PRO MASTECTOMY PARTIAL Left 07/04/2017 MASTECTOMY PARTIAL (WRVU 10.13) performed by Ashley Farooq MD at [facility] MAIN OR FAMILY HX: Family [...] pulse Lungs: no extra work of breathing Musculoskeletal:Right foot and ankle exam reveals a warm and well-perfused foot. The lateral incision is scabbed over but appears to be healing. There is no drainage or probing present. I did apply Medihoney and nonadherent pad over the incision this visit. DIAGNOSTIC STUDIES: Right nonweightbearing foot x-rays were personally reviewed today. These revealbone callus formation at the CC, ST, TM joints without evidence of hardware lucency or movement. There is still some joint space visible within the subtalar joint and the joint line is vaguely visible along the calcaneocuboid and talonavicular joints. ASSESSMENT: Status post the above procedure. Doing well. PLAN: At this point time I am okay with the patient being weightbearing as tolerated in her postop boot. Discussed the weightbearing protocol with her at length and emphasized that she should stay in the boot for 2 weeks before weaning. She should continue to take 5000 international units of vitamin D daily. She will use Medihoney which I have provided to her this visit daily but will continue to shower and let water run over the incisions. She should come back and see me in 4 weeks with a repeat weightbearing foot x-ray. The patient expressed agreement with and understanding of this plan of care. The patient understands to contact us if they have any other questions or concerns. The above documentation was completed using [employer] voice recognition software. Rene Tubbs PA-C, [facility] Department of Orthopaedics [facility] Pager [phone] documented in this encounter Plan of Treatment Scheduled Referrals Name Type Priority Associated Diagnoses Orde r Schedule Referral to Physical Therapy Outpatient Referral Routine Posterior tibial tendon dysfunction s/p R triple arthrodeiss 06/27/23 (Faro) Ordered: 08/09/2023 documented as of this encounter Visit Diagnoses Diagnosis Posterior tibial tendon dysfunction s/p R triple arthrodeiss 06/27/23 (Faro) Other disorders of synovium, tendon, and bursa documented in this encounter Care Teams Wool Cleaner Relationship Specialty Start Date End Date Angie Alonzo MD [address] [place] [address] PCP - General Family Medicine 06/25/17 documented as of this encounter
--- OUTSIDE RECORDS SUMMARY | 2024-03-11 15:13 | XMS_ITS | Encounter Summary ---
Author Organization [facility] Address [facility] [place] [address] Care Team Providers Care Director Of Provider Relations Name Role Phone Angie Alonzo MD Primary Care Provider [phone] Encounter Details Date Type Department Care Team (Latest Contact Info) Description 07/09/2023 12:03 PM EST - 07/09/2023 11:59 PM [facility] Hospital Encounter XRay at [address] [place] [address] Crystal Hess MD [facility] [place] [address] Posterior tibial tendon dysfunction (PTTD) of right lower extremity; Right foot pain; Posterior tibial tendon dysfunction s/p R triple arthrodeiss 06/27/23 (Deshawn) Discharge Disposition: Home Social History Tobacco Use Types Packs/Day Years Used Date Smoking Tobacco: Never Smokeless Tobacco: Never Alcohol Use Standard Drinks/Week Comments Never 0 (1 standard drink = 0.6 oz pur e alcohol) very occasional [facility] Inpatient Questions Answer Date Recorded Does Anyone [...] DAY 04/24/2023 MULTIVITAMIN ORAL 1 tablet. 09/01/2012 Weogufka-3 Fatty Acids 100 mg Tablet, Chewable daily. 03/28/2022 b complex vitamins Tablet 1 tablet. 03/28/2022 azelastine (ASTELIN) 137 mcg (0.1 %) Aerosol, [place] SPRAY 1 SPRAY INTO BOTH NOSTRILS ONCE [...] blood-glucose meter (FREESTYLE) Kit 1 each by [facility].(Non-Drug; Combo Route) route as needed for Other. aspirin 81 mg Tablet, Chewable Take 81 mg by mouth daily. empagliflozin (Jardiance) 10 mg tablet daily. 01/28/2023 09/09/2023 documented as of this encounter Plan of Treatment Not on file documented as of this encounter Procedures Procedure Name Priority Date/Time Associated Diagnosis Comments XR FOOT MIN 3 VIEWS RIGHT Routine 07/09/2023 12:27 PM EST Posterior tibial tendon dysfunction (PTTD) of right lower extremity Right foot pain Posterior tibial tendon dysfunction s/p R triple [...] who have questions please contact the health home care manager rn that requested your imaging first. ? Electronically signed by: Marissa Arroyo MD, [facility] ([phone]), at 07/09/2023 4:17 PM Narrative 07/09/2023 4:17 [...] COMPARISON: Right foot radiographs 03/27/2023. Intraoperative fluoroscopic [id number]. FINDINGS: There is soft tissue swelling around [...] patients who have questions please contactthe health home care manager rn that requested your imaging first. Electronically signed by: Marissa Arroyo MD, [facility]([phone]), at 07/09/2023 4:17 PM Crystal Hess MD IMG DX ORDERABLES documented in this encounter Visit Diagnoses Diagnosis Posterior tibial tendon dysfunction (PTTD) of right lower extremity Right foot pain Pain in limb Posterior tibial tendon dysfunction s/p R triple arthrodeiss 06/27/23 (Deshawn) Other disorders of synovium, tendon, and bursa documented in this encounter Care Teams Director Of Provider Relations Relationship Specialty Start Date End Date Angie Alonzo MD [address] [place] [address] PCP - General Family Medicine 06/25/17 documented as of this encounter
--- OUTSIDE RECORDS SUMMARY | 2024-03-11 15:14 | XMS_ITS | Encounter Summary ---
Author Organization [facility] Address [facility] [place] [address] Care Team Providers Care Truck Striker Name Role Phone Angie Alonzo MD Primary Care Provider [phone] Encounter Details Date Type Department Care Team (Latest Contact Info) Description 07/28/2021 11:30 AM EST TH Visit (TeleHealth) Hematology [place] [address] Kalyan Damico MD [facility] HEMATOLOGY/[facility] [place] [address] Malignant neoplasm of upper-inner quadrant of left breast in female, estrogen receptor positive Social History Tobacco Use Types Packs/Day Years [...] as of this encounter Progress Notes * Kalyan Damico MD - 07/28/2021 11:30 AM EST Heme-Onc Staff ?? Abimbola Case Alesia??is a 75 y.o.??female??with Stage I breast cancer, who I spoke with today in six month followup. ?? Subjective: Ms. Dumas presented on screening mammography November 06, 2016 with an area of increased density with surrounding architectural distortion in the medial, subareolar left breast. ??Diagnostic imaging on November 09 showed a 9 mm spiculated mass in the upper inner quadrant of the left breast at 9:00, 3 cm from the nipple. ??An ultrasound showed a subtle 6 mm hypoechoic shadowing mass. ??An ultrasound-guided biopsy on December 04 found benign breast and adipose tissue. ??A repeat ultrasound on April 09 showed a stable left breast mass. ??An ultrasound of the left breast here on May 28 showed a 7 x 12 mm irregular hypoechoic mass in the left breast at 9:00, 3 cm from the nipple. ??An ultrasound-guided biopsy the same day showed a low grade invasive ductal carcinoma, estrogen receptor strongly positive in greater than 90% of cells, progesterone receptor strongly positive in 11-50% of cells, and Her-2 u namplified, with a Her-2:CEP-17 ratio of 1.2. ?She underwent a needle localization excision and sentinel node biopsy on July 04, 2017. ??There was a 6.6 mm low grade (SBR=4) invasive ductal carcinoma with 25 mm of ductal carcinoma in situ ranging from low grade to high grade with necrosis. ??There was no lymphovascular invasion and the cranial margin was 0.5 mm. ??One sentinel node was negative. ??She received radiotherapy to the left breast from August 05 through September 02, 2017, 42.56 Gy in 16 fractions to the breast plus a 10 Gy boost in four fractions to the tumor bed. ??She started tamoxifen on September 16, 2017. ?? Abimbola was referred to cardiology to work up a murmur prior to an anticipated left hip replacement. ??She had a positive nuclear stress test, and a cardiac cath showed triple vessel disease. ??She underwent coronary artery bypass grafting on March 05, 2019, and she did well. ??She underwent a left hip replacement on November 18, 2019. ??She took aspirin at 162 mg daily for a month for VTE prophylaxis,and she was off tamoxifen for two weeks prior to and after the surgery. ?She had a right knee replacement on February 14, 2021. She again held the tamoxifen for two weeks before and after the surgery, and she took aspirin for 30 days for VTE prophylaxis. Her rehab has gone well, her range of motion in the right knee is good, and the pain behind and above the right knee is improving. She now has pain in the left knee, she has had three injections of the left knee, but she is not yet making plans to have that knee replaced. She has cramping of the right wrist, her shoulders hurt, and she gets cramping of her ankles in the pool. She has no other sites of joint or skeletal pain. She denies anyvaginal bleeding or spotting, and she has no redness, swelling, or warmth in her thighs or calfs. She goes to the pool three days a week, and she rides an exercise bicycle and she walks in the house.She goes out to lunch with friends and she travels, but she tries to avoid crowds. Review of Systems She denies breast pain or a palpable breast mass, a cough, shortness of breath, chest pain, nausea,vomiting, diarrhea, constipation, headaches, double vision,??or??skin rashes. ??The remainder of her review of systems is negative. ?? The most recent LFTs from January 24, 2021 included an albumin of 4.0, bili 0.4, alk phos 53, AST 20, and ALT 19. ?? The most recent??3-D mammograms from January 24, 2021 showed no suspicious microcalcifications, masses, or architectural distortion, with post-treatment changes on the left. ??There were benign dystrophic calcifications in the lumpectomy bed. The breasts were almost entirely fatty. ?? Decision Making/Plan: Abimbola is doing well and she has no evidence of breast cancer recurrence. She isgetting plenty of exercise. I will see her next in followup in six months, I will order repeat LFTsthen, and I will coordinate that appointment with Kasey Delgado and with her next mammograms.She knows to contact us in the interim if she has any concerns over her breast exam. She will complete a five year course of tamoxifen in August of 2022. ?? Patient verbally consents to this telephone visit and understands that this visit may be billed, similar to a clinic office visit. ?? I provided care to the patient today via telephone call. The total time associated with this visit was 11 minutes. ?? Kalyan Damico MD ict help desk officer in Hematology-Oncology documented in this encounter Plan of Treatment Not on file documented as of this encounter Results * Hepatic Function Panel (02/20/2022 8:29 AM EDT) Protein, Total 7.0 6.1 - 8.0 g/dL [facility] Albumin 4.3 3.2 - 5.2 g/dL [facility] Aspartate Aminotransferase 19 0 - 30 unit/L [facility] Alanine Aminotransferase 20 0 - 30 unit/L [facility] Alkaline Phosphatase 65 35 - 105 unit/L [facility] Bilirubin, Total 0.4 0.2 - 1.3 mg/dL [facility] Bilirubin, Direct 0.1 0.0 - 0.3 mg/dL [facility] Blood 02/20/2022 8:29 AM EDT 02/20/2022 8:37 AM EDT Narrative Resulting Agency Comment Spec In Lab Kalyan Damico MD CHEMISTRY ORDERABLES Performing Organization Address City/State/[facility] Co de Phone Number [facility] [place] [phone] documented in this encounter Visit Diagnoses Diagnosis Malignant neoplasm of upper-inner quadrant of left breast in female, estrogen receptor positive documented in this encounter Care Teams Truck Striker Relationship Specialty Start Date End Date Angie Alonzo MD [address] [place] [address] PCP - General Family Medicine 06/25/17 documented as of this encounter
--- OUTSIDE RECORDS SUMMARY | 2024-03-11 15:14 | XMS_ITS | Encounter Summary ---
Author Organization [facility] Address [facility] [place] [address] Care Team Providers Care Sample Hand Name Role Phone Angie Alonzo MD Primary Care Provider [phone] Encounter Details Date Type Department Care Team (Late st Contact Info) Description 12/04/2021 11:30 AM EDT Office Visit Endocrinology at [facility] [place] [address] Wilman Herndon MD [facility] [place] [address] Thyroid nodule Social History Tobacco Use Types Packs/Day Years [...] Sign Reading Time Taken Comments Blood Pressure 139/61 12/04/2021 11:13 AM EDT Pulse 97 12/04/2021 11:13 AM EDT Temperature 36.7 ??C (98 ??F) 12/04/2021 11: 13 AM EDT Respiratory Rate - - Oxygen Saturation 98% 12/04/2021 11: 13 AM EDT Inhaled Oxygen Concentration - - Weight 93.8 kg (206 lb 12.8 oz) 022 11:13 AM EDT Height 167.6 cm (5' 6) 12/04/2021 11:1 3 AM EDT Body Mass Index 33.38 12/04/2021 11:13 AM EDT documented in this encounter Progress Notes * Wilman Herndon MD - 12/04/2021 11:30 AM EDT Ms. Abimbola Dumas is an 76 y.o. female who presents for ongoing care of thyroid nodule Former patient of Dr Booth, a fellow who has graduated. Last seen in 2019. History per her note: 07/2017: CT chest demonstrated 2.4 cm hypodense nodule in right thyroid lobe. 08/2017: Thyroid US demonstrated 2.1 x 1.7 x 1.6 cm solid, isoechoic right thyroid nodule with peripheral vascularity. 08/2017: underwent FNA by IR - Atypia of Undetermined Significance. 10/2017: underwent FNA in endocrine clinic - Atypia of undetermined significance, ThyGenX - insufficient for molecular analysis. 01/2018: repeat FNA in endocrine clinic for ThyGenX - negative for mutations. Size of nodule at that time was 1.7 x 1.42 x 1.84 cm Upon last assessment in Mar 2020 the right thyroid nodule was described as 1.7 x 1.6 x 1.2 cm, taller than wide, regular margins, solid, hypoechoic, no intranodal calcification,and with peripheral vascularity. Interval history: Patient today tells me that she feels well. She does not have any throat pain, difficulty swallowing or hoarse voice. Patient Active Problem List Diagnosis ??? Breast calcifications on mammogram Overview Note: Benign dystrophic calcifications in left breast within the lumpectomy bed. ??? S/P CABG (coronary artery bypass graft) ??? CAD (coronary artery disease) ??? Malignant neoplasm of upper-inner quadrant of left breast in female, estrogen receptor positive Overview Note: Ms. Dumas presented on screening mammography November 06, 2016 with an area of increased density with surrounding architectural distortion in the medial, subareolar left breast. Diagnostic imaging on November 09showed a 9 mm spiculated mass in the [...] positive in 11-50% of cells, and Her-2 unamplified,with a Her-2:CEP-17 ratio of 1.2. She underwent a needle localization excision and sentinel node bio psy on July 04, 2017. There was a [...] started tamoxifen on September 16, 2017. Current Outpatient Medications: ??? tamoxifen (NOLVADEX) 20 mg Tablet, Take 1 tablet by mouth daily., Disp: 90 tablet, Rfl: 3 ??? vitamin B complex (B COMPLEX ORAL), Take by mouth daily as needed., Disp: , Rfl: ??? Gebni-5-OWS-EPA-Fish Oil (Fish Oil) 1,200 (144-216) mg Capsule, Take by mouth 2 times daily., Disp: , Rfl: ??? lisinopriL (Prinivil;Zestril) 40 mg Tablet, TAKE ONE TABLET BY MOUTH ONCE DAILY, Disp: , Rfl: ??? amLODIPine (NORVASC) 10 mg Tablet, Take 5 mg by mouth daily., Disp: , Rfl: ??? furosemide (LASIX) 20 mg Tablet, 40 mg., Disp: , Rfl: 3 ??? potassium chloride (K-DUR/KLOR-CON) 20 mEq Tab Sust.Rel. Particle/Crystal, TAKE 1 TABLET BY MOUTH ONCE DAILY, Disp: , Rfl: 4 ??? acetaminophen (TYLENOL) 500 mg Tablet, Take 2 tablets by mouth every 6 hours. (Patient not taking: Reported on 02/02/2021), Disp: , Rfl: ??? metoprolol tartrate (LOPRESSOR) 25 mg Tablet, Take 1 tablet by mouth 2 times daily., Disp: 60 tablet, Rfl: 2 ??? senna-docusate (PERICOLACE) 8.6-50 mg Tablet, Take 2 tablets by mouth daily. (Patient not taking: Reported on 02/02/2021), Disp: , Rfl: ??? METHYLCELLULOSE (CITRUCEL ORAL), Take by mouth daily as needed., Disp: , Rfl: ??? pantoprazole (PROTONIX) 20 mg Tablet, Delayed Release (E.C.), Take 20 mg by mouth daily., Disp:, Rfl: ??? atorvastatin (LIPITOR) 40 mg Tablet, Take 40 mg by mouth daily., Disp: , Rfl: ??? blood-glucose meter (FREESTYLE) Kit, 1 each by [facility].(Non-Drug; Combo Route) route as needed forOther., Disp: , Rfl: ??? aspirin 81 mg Tablet, Chewable, Take 81 mg by mouth daily., Disp: , Rfl: ??? CALCIUM CARB, CITRATE/VIT D3 (CALCIUM CARB AND CITRATE-VITD3 ORAL), Take by mouth., Disp: , Rfl: has a past medical history of Antiplatelet or antithrombotic long-term use, Arthritis, Breast cancer, Cancer, CPAP (continuous positive airway pressure) dependence, Diabetes, Diabetes mellitus, GERD (gastroesophageal reflux disease), Heart valve disease, High blood pressure, Hypertension, Peptic ulcer disease, Status post radiation therapy, Stroke, and Vertigo. Physical Exam: Patient Vitals for the past 24 hrs: Temp Pulse BP SpO2 12/04/21 1113 36.7 ??C (98 ??F) 97 139/61 98 % General: no acute distress, pleasant, sitting comfortably Face:wearing mask Neck: no supraclavicular fat pads; trachea midline Respiratory: symmetrical chest expansion, breathing comfortably on room air Musculoskeletal: Moving all 4 extremities normally; normal female musculature Skin: normal temperature/texture Neurological: no tremors; normal gait Psychological: alert/oriented to person, place, time; normal affect; memory intact; normal judgement/insight Radiology Studies: Laboratory Data: Component Ref Range & Units 1 yr ago TSH 0.27 - 4.20 mcIU/mL 1.14 Resulting Agency [facility] Lab Resulting Agency's Comment Spec In Lab Specimen Collected: 03/04/20 10:56 Assessment / Plan: 1) thyroid nodule: Right thyroid nodule is smaller than when biopsied in 2018 and unchanged in sonographic appearance,which is reassuring as to its likely benign nature We discussed the fact that because of these facts, it is very unlikely that the right thyroid nodule will develop into clinically relevant cancer in future. Discussed either forgoing further regular surveillance or followup in 2 years, and the patient prefers the latter. followup in 2 years with me Time statement: I spent 20 total minutes on this visit today not counting US time. The time was spent face to face with the patient, on chart review and documentation, ordering labs/studies and coordination of care Wilman Herndon MD [employer]en[employer] product marketing manager Endocrinology Section [facility] * Wilman Herndon MD - 12/04/2021 11:30 AM EDT ENDOCRINOLOGY THYROID ULTRASOUND REPORT Patient:Abimbola Dumas, [id number] Date of exam: 12/04/2021 Indication: history of thyroid nodule Comparison: 03/04/2020 thyroid US Performed by: Wilman Herndon MD Real time images of the thyroid gland were obtained using a [employer] US machine. All measurements are given as Longitudinal/Sagittal x AP x Transverse. Right Lobe: The right lobe measures [id number] mm with homogeneous echotexture In the right mid-lower pole there is a solid hypoechoic nodule measuring [id number] mm. Smooth borders. No calcifications. GABY intermediate suspicion Isthmus: The isthmus measures 7 mm Left Lobe: The left lobe measures [id number] with homogeneous echotexture Lateral neck: I examined the lateral neck regions and saw no morphologically abnormal lymph nodes Impression: Right thyroid nodule similar in appearance and size to 2020, smaller than 2018 when it was last biopsied documented in this encounter Plan of Treatment Not on file documented as of this encounter Visit Diagnoses Diagnosis Thyroid nodule Nontoxic uninodular goiter documented in this encounter Care Teams Sample Hand Relationship Specialty Start Date End Date Angie Alonzo MD [address] [place] [address] PCP - General Family Medicine 06/25/17 documented as of this encounter
--- OUTSIDE RECORDS SUMMARY | 2024-03-11 15:14 | XMS_ITS | Encounter Summary ---
Author Organization [facility] [place] [address] Care Team Providers Care Burial Needs Salesperson Name Role Phone Angie Alonzo MD Primary Care Provider [phone] Encounter Details Date Type Department Care Team (Latest Contact Info) Description 01/24/2021 9:20 AM EDT Office Visit General Surgery at [facility] [place] [address] Kasey Delgado APRN [facility] DR GENERAL SURGERY [place] [phone] Encounter for follow-up surveillance of breast cancer; Malignant neoplasm of upper-inner quadrant of left breast in female, estrogen receptor positive; Breast calcifications on mammogram; Breast cancer screening by mammogram Social History Tobacco Use Types Packs/Day Years Used Date Smoking Tobacco: Never Smokeless Tobacco: Never Alcohol Use Standard Drinks/Week Comments Never 0 (1 standard drink = 0.6 oz pur e alcohol) very occasional Sex and Gender Information Value Date Recorded Sex Assigned at Not on file Gender Identity Not on file Sexual Orientation Not on file documented as of this encounter Patient Instructions * Patient Instructions* Kasey Delgado APRN - 01/24/2021 9:20 AM EDT Nonpharmacologic measures to help decrease your risk of developing breast cancer include the following: ?? Get at least 30 minutes of moderate intensity physical activity above normal activity on most days of the week to reduce the risk of chronic disease in adulthood. Walking is a good choice. You also may want to do other activities, such as running, swimming, cycling, playing tennis, or other teamsports. ?? Do strength training exercises at least twice a week to maintain muscle and bone health. ?? Drink alcohol in moderation, if at all. That means no more than 1 drink a day for women or 2 perday for men. ?? Make healthy eating choices: fruits and vegetables, lean protein, and healthy fats. Minimize processed foods, simple carbohydrates, sugars, and artificial sweeteners. ?? Maintain or achieve a healthy weight. Normal BMI < 25 for individuals under 65 years old; 22-30 for > 65 years old. ?? Manage stress levels. ?? Be cautious about exposure risk, both what you put in and on your body (ie: artificial fragrances, artificial dyes, as well as certain ingredients in makeup, hair and body care, antiperspirant, sunscreen, insect repellant, laundry detergent, fabric softener, dryer sheets, etc.). [place] bans or restricts over 1,400 ingredients from personal care products. Currently, the [place] bans or restricts only 30 products. Resources to help you make informed choices for personal care products are available at EWG (Environmental Working Group) at https://www.ewg.org and free apps for your cell phone from [employer] (Healthy Living) and [employer] ([employer]). documented in this encounter Progress Notes * Kasey Delgado APRN - 01/24/2021 9:20 AM EDT Images from the original note were not included. Patient ID: Abimbola Dumas is a 75 y.o. female HPI: Abimbola is a former patient of Dr. 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 She is status post left partial mastectomy and sentinel node excision on July 04, 2017. At today's visit, Abimbola denies any new lumps or bumps in her breasts or axilla. She does not perform self-breast exams. No nipple discharge or pain in either breast. She denies any headaches or significant weight changes. No new chest pain or difficulty breathing. No new bony pain or tenderness. She had a left hip replacement in October, and now is having pain in the left knee. Breast cancer history: A screening mammogram on 11/09/2016 at [facility] noted a new 0.9 mm mass in the left, upper inner quadrant. US showed a subtle 6-mm hypoechoic mass with some internal vascularity. She underwent biopsy on 12/04/2016 which came back as benign, but a second read here at [facility] was not concordant, so she was sent to [facility] and had repeat biopsy which did show a low grade, ER/WI positive, HER2 negative breast cancer. One sentinel node was negative. She completed XRT to the left breast on 09/02/2017 and started tamoxifen on September 16, 2017. She is tolerating this without side effects. BREAST CANCER NOTES 01/24/2021 Method of Cancer Detection Screening mammogram Menopausal Status at Diagnosis postmenopausal Date of Diagnostic Biopsy 12/04/2016 Local Surgery 07/04/2017 Axillary Management SNE Date of Last Surgical Procedure 07/04/2017 Histology Invasive ductal carcinoma Size of Primary Malignancy 6 mm Grade Low grade Margin negative ER positive WI positive First Adjuvant Endocrine Therapy anastrozole Radiation therapy Completed 09/02/2017 Genetic Testing Not tested Surveillance Annual mammogram and CBE Comprehensive Breast Program Surgery Follow Up: Range of motion of surgical arm complete Lymphedema present No Cosmesis-surgeon reported Cosmesis-patient reported Excellent Excellent Local or regional recurrence No Contralateral cancer present No Distant recurrence present No Date of last follow up 01/26/2020 Breast Cancer Risk Factors: History Age at delivery of first child 21 yo Breast fed No Oral contraceptive use Yes Menarche age unsure LMP 50s Hormone replacement therapy No Family history of breast cancer No Family history of ovarian cancer No Known genetic mutation Not tested Family History Problem (# of Occurrences) Relation (Name,Age of Onset) Lung Cancer (1) Sister: smoker Negative family history of: Breast Cancer, Ovarian Cancer Social Hx: She is retired and lives alone. She enjoys quilting. She has never smoked; occasional ETOH. Past Surgical Hx: CABG Past Medical Hx: CAD Physical Exam: General appearance: Alert, well-developed, well-nourished female in no acute distress. Skin: Warm and dry. Head: Normocephalic, atraumatic. Neck: Soft and supple without adenopathy. Cardiovascular: Normal rate, regular rhythm and normal heart sounds. No murmur heard. Pulmonary: Effort normal and breath sounds normal. No respiratory distress, cough, or wheezing. Breasts: Left breast with well-healed incision in medial breast. Skin thickening of the left breasts/p radiation changes. Right breast appears normal. No suspicious masses, tenderness, dimpling, erythema, or other skin changes in either breast. No nipple discharge or other nipple changes. No palpable axillary lymph nodes bilaterally. I feel no obvious discrete or dominant masses in either breast. Musculoskeletal: Arms with full ROM without any evidence of lymphedema. Fully weight-bearing. Neurological: Alert and oriented x 4. Mood is euthymic and appropriate to the situation. Results: Imaging performed (bilateral mammogram) at [facility] today shows no evidence of malignancy, BI-RADS Category 2 with mainly fatty replaced breasts and post treatment changes on the left. There arebenign dystrophic calcifications within the lumpectomy bed on the left. The results were reviewed with her at today's appointment. Assessment: Clinical breast exam without notable masses, skin changes, dimpling, or nipple discharge. Doing well without evidence of local recurrence. Stable exam. Plan: 1. Encounter for follow-up surveillance of breast cancer 2. Malignant neoplasm of upper-inner quadrant of left breast in female, estrogen receptor positive 3. Breast calcifications on mammogram 4. Breast cancer screening by mammogram - Mammo Screening Cad and Wayne Bilateral; December 2021 I have discussed my assessment and recommendations with Abimbola to include occasional self-breast examsand annual mammographic screening with clinical breast exams. Based on her risk status, her next bilateral screening mammogram is due in one year, or sooner if indicated. I will plan to see her for aclinical breast exam at that time. She will also contact me if she develops any new breast changes or concerns prior to that appointment. She agrees to this plan. Routine recommendations discussed with the patient including importance of regular moderate intensity exercise, nutrition, decreasing cardiovascular risk, and optimizing weight. Nonpharmacologic measures to help decrease your risk of developing breast cancer include the following: ?? Get at least 30 minutes of moderate intensity physical activity above normal activity on most days of the week to reduce the risk of chronic disease in adulthood. Walking is a good choice. You also may want to do other activities, such as running, swimming, cycling, playing tennis, or other teamsports. ?? Do strength training exercises at least twice a week to maintain muscle and bone health. ?? Drink alcohol in moderation, if at all. That means no more than 1 drink a day for women or 2 perday for men. ?? Make healthy eating choices: fruits and vegetables, lean protein, and healthy fats. Minimize processed foods, simple carbohydrates, sugars, and artificial sweeteners. ?? Maintain or achieve a healthy weight. Normal BMI < 25 for individuals under 65 years old; 22-30 for > 65 years old. ?? Manage stress levels. ?? Be cautious about exposure risk, both what you put in and on your body (ie: artificial fragrances, artificial dyes, as well as certain ingredients in makeup, hair and body care, antiperspirant, sunscreen, insect repellant, laundry detergent, fabric softener, dryer sheets, etc.). [place] bans or restricts over 1,400 ingredients from personal care products. Currently, the [place] bans or restricts only 30 products. Resources to help you make informed choices for personal care products are available at EWG (Environmental Working Group) at https://www.ewg.org and free apps for your cell phone from [employer] ([employer]) and [employer] ([employer]). All questions were answered to the patient's satisfaction and they state understanding and agreement with today's treatment plan. They are encouraged to follow up sooner if they develop any new or concerning symptoms. aKsey Delgado APRN Surgical Oncology P [phone] F [phone] [facility] documented in this encounter Plan of Treatment Not on file documented as of this encounter Results * Mammo Screening Cad and Wayne Bilateral (02/20/2022 9:10 AM EDT) Anatomical Region Laterality Modality Breast Bilateral Mammography Narrative 02/20/2022 9:19 AM EDT EXAMINATION: MAMMO SCREENING CAD AND WAYNE BILATERAL REASON FOR EXAM: Screening. History of left breast cancer. TECHNIQUE: CC and MLO views were obtained of both breasts. Computer aided detection was used. 3D tomosynthesis images were obtained in addition to 2D images. COMPARISON: The study is compared with prior images. FINDINGS: Breast density: There are scattered areas of fibroglandular density. There are no suspicious microcalcifications, masses, or areas of distortion. There are post treatment changes in the left breast. CONCLUSION: No mammographic evidence of malignancy. RECOMMENDATION: Routine annual screening. BI-RADS CATEGORY 2: BENIGN FINDINGS * ??Regular screening mammograms starting between age 40 and 50 reduces the risk of from breast cancer. [...] Patients and health care providers should discuss the history of each patient to decide if earlier screening and/or breast [...] who have questions please contact the health lpn care manager that requested your imaging first. ? Electronically signed by: Billie Parker MD, [facility] ([phone]), at 02/20/2022 9:19 AM Kasey Delgado APRN IMG MAMMO ORD ERABLES documented in this encounter Visit Diagnoses Diagnosis Encounter for follow-up surveillance of breast cancer Unspecified follow-up examination Malignant neoplasm of upper-inner quadrant of left breast in female, estrogen receptor positive Breast calcifications on mammogram Other (abnormal) findings on radiological examination of breast Breast cancer screening by mammogram Malignant neoplasm of upper-inner quadrant of left breast in female, estrogen receptor positive Breast cancer screening by mammogram Breast calcifications on mammogram Other (abnormal) findings on radiological examination of breast documented in this encounter Care Teams Burial Needs Salesperson Relationship Specialty Start Date End Date Angie Alonzo MD [facility] [address] [facility] [address] [place] [address] PCP - General Family Medicine 06/25/17 documented as of this encounter
--- OUTSIDE RECORDS SUMMARY | 2024-03-11 15:14 | XMS_ITS | Encounter Summary ---
Author Organization [facility] Address [facility] [place] [address] Care Team Providers Care Minor League Baseball Player Name Role Phone Angie Alonzo MD Primary Care Provider [phone] Encounter Details Date Type Department Care Team (Latest Contact Info) Description 02/20/2022 8:18 AM EDT - 02/20/2022 8:31 AM EDT Hospital Encounter Hematology and Oncology at [facility] [place] [phone] Malignant neoplasm of upper-inner quadrant of left breast in female, estrogen receptor positive Discharge Disposition: Home Social History Tobacco Use [...] Sig Dispensed Refills Start Date End Date MULTIVITAMIN ORAL 1 tablet. 09/01/2012 calcium-vitamin D3 600 mg-5 mcg (200 unit) [...] blood-glucose meter (FREESTYLE) Kit 1 each by [facility]Non-Drug; Combo Route) route as needed for Other. aspirin 81 mg Tablet, Chewable Take 81 mg by mouth daily. Vhkeh-1-AVT-EPA-Fish Oil 1,200 (144-216) mg Capsule Take by mouth 2 times daily. 07/17/2022 senna-docusate (PERICOLACE) 8.6-50 mg Tablet Take 2 tablets by mouth daily. 03/09/2019 07/17/2022 CALCIUM CARB, CITRATE/VIT D3 (CALCIUM CARB AND CITRATE-VITD3 ORAL) Take by mouth 2 times daily. 06/18/2023 documented as of this encounter Plan of Treatment Not on file documented as of this encounter Procedures Procedure Name Priority Date/Time Associated Diagnosis Comments HC VENIPUNCTURE STAT 02/20/2022 8:29 AM EDT Malignant neoplasm of upper-inner quadrant of left breast in female, estrogen receptor positive documented in this encounter Results * Hepatic Function Panel (02/20/2022 8:29 AM EDT) Protein, Total 7.0 6.1 - 8.0 g/dL [facility] Albumin 4.3 3.2 - 5.2 g/dL [facility] Aspartate Aminotransferase 19 0 - 30 unit/L [facility] Alanine Aminotransferase 20 0 - 30 unit/L [facility] Alkaline Phosphatase 65 35 - 105 unit/L [facility] Bilirubin, Total 0.4 0.2 - 1.3 mg/dL [facility] Bilirubin, Direct 0.1 0.0 - 0.3 mg/dL [facility] Blood 02/20/2022 8:29 AM EDT 02/20/2022 8:37 AM EDT Narrative Resulting Agency Comment Spec In Lab Kalyan Damico MD CHEMISTRY ORDERABLES [facility] [place] [address] documented in this encounter Visit Diagnoses Diagnosis Malignant neoplasm of upper-inner quadrant of left breast in female, estrogen receptor positive documented in this encounter Care Teams Minor League Baseball Player Relationship Specialty Start Date End Date Angie Alonzo MD [facility] [address] [place] [address] PCP - General Family Medicine 06/25/17 documented as of this encounter
--- OUTSIDE RECORDS SUMMARY | 2024-03-11 15:14 | XMS_ITS | Encounter Summary ---
Author Organization [facility] Address [facility] [place] [address] Care Team Providers Care Jet Worker Name Role Phone Angie Alonzo MD Primary Care Provider [phone] Reason for Visit * Reason Comments Follow-up Encounter Details Date Type Department Care Team (Late st Contact Info) Description 01/26/2020 2:00 PM EDT Office Visit [place] [phone] Kalyan Damico MD [facility] HEMATOLOGY/[place] [address] Malignant neoplasm of upper-inner quadrant of left [...] Sign Reading Time Taken Comments Blood Pressure 137/47 01/26/2020 12:54 PM EDT Pulse 78 01/26/2020 12:54 PM EDT Temperature 36.8 ??C (98.2 ??F) 01/26/2020 12:54 PM E DT Respiratory Rate 18 01/26/2020 12:54 PM EDT Oxygen Saturation 95% 01/26/2020 12:54 PM EDT Inhaled Oxygen Concentration - - Weight 96.3 kg (212 lb 3.2 oz) 01/26/2020 12:54 PM EDT Height 165.9 cm (5' 5.32) 01/26/2020 12:54 PM E DT Body Mass Index 34.97 01/26/2020 12:54 PM EDT documented in this encounter Progress Notes * Kalyan Damico MD - 01/26/2020 2:00 PM EDT Subjective: Patient ID: Abimbola Dumas is a 74 y.o. female with Stage I breast cancer, seen for six month followup. HPI Ms. Dumas presented on screening mammography November [...] She started tamoxifen on September 16, 2017. Abimbola was referred to cardiology to work up a murmur prior to an anticipated left hip replacement. She had a positive nuclear stress test, and a cardiac cath showed triple vessel disease. She underwentcoronary artery bypass grafting on March 05, 2019, and she did well. A left pleural effusion wasdrained on April 08 and she completed cardiac rehab. She underwent a left hip replacement on November 18, 2019. She was off tamoxifen for 13 days prior to and 14 days following her hip surgery, and she took aspirin at 162 mg daily for a month for VTE prophylaxis. She had minor left lower extremity swelling which responded to an increase in her dosing of furosemide. Her left hip pain has resolved, butjorge now has more pain in the left knee, and she is seeing her surgeon about the knee next week. Shehas pain in her left groin and in her shoulders, but she has no other sites of joint or skeletal pain. She denies any real hot flashes or sweats, she denies any vaginal bleeding, and she has no erythema or warmth in either leg. She rides an exercise bicycle and she does stretching exercises, but she no longer does water exercises. Review of Systems She denies breast pain or a palpable breast mass, a cough, shortness of breath, chest pain, nausea,vomiting, diarrhea, constipation, headaches, double vision, or skin rashes. The remainder of her review of systems is negative. Objective: Physical Exam Vitals signs reviewed. Constitutional: Comments: Her weight is up 1.6 kg over the past six months, and her BP is 137/47. HENT: Mouth/Throat: Pharynx: No oropharyngeal exudate. Neck: Comments: She has no supraclavicular adenopathy. Cardiovascular: Rate and Rhythm: Normal rate and regular rhythm. Heart sounds: Murmur present. Comments: Holosystolic murmur Pulmonary: Breath sounds: Normal breath sounds. No wheezing or rales. Comments: There is a 4 cm scar in the upper inner quadrant of the left breast as well as a 4 cm left axillary scar. There are no masses within either the left or the right breast, and there is no axillary adenopathy palpable on either side. Abdominal: General: There is no distension. Palpations: Abdomen is soft. There is no mass. Tenderness: There is no abdominal tenderness. There is no guarding. Musculoskeletal: Comments: She has no pain on percussion over the spine, sternum, ribs, or hips. She has trace edema in the ankles without erythema, warmth, or calf tenderness. Lymphadenopathy: Cervical: No cervical adenopathy. Skin: General: Skin is warm and dry. Findings: No erythema. Recent Results (from the past 24 hour(s)) Hepatic Function Panel Result Value Ref Range Total Protein 7.1 6.1 - 8.0 gm/dL Albumin 4.3 3.2 - 5.2 gm/dL AST 31 (H) 0 - 30 unit/L ALT 31 (H) 0 - 30 unit/L Alk Phos 59 35 - 105 unit/L Total Bilirubin 0.3 0.2 - 1.3 mg/dL Bili, Direct 0.1 0.0 - 0.3 mg/dL The CBC and electrolytes from June 19, 2017 showed a WBC count of 8.1, Hgb 14.6, Hct 43.0, platelets 304, ANC 5770, Na 144, K 3.7, Cl 102, bicarb 27, BUN 24, creatinine 0.69, and Ca 9.7. Today's 3-D mammograms show no suspicious microcalcifications, masses, or architectural distortion,with post-treatment changes on the left. The breasts are almost entirely fatty. Assessment and Plan: Ms. 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 She is tolerating tamoxifen well. I reminded her to stop the tamoxifen two weeks before and two weeks after replacement surgery of her left knee, if it comes to that. She had asked me in July about consolidating appointments, and givenCOVID concerns, I will change our next appointment in July 2020 to a telehealth visit. I will see her muck-ny-reep next in one year, and I will coordinate that appointment with Kasey Gillette and with her mammograms. She knows to contact me in the interim if she has any concerns over her breast exam or over the tamoxifen. I will ask her to take a total of five years of tamoxifen through August of 2022. Kalyan Damico MD retail attendant in Hematology-Oncology documented in this encounter Plan of Treatment Not on file documented as of this encounter Visit Diagnoses Diagnosis Malignant neoplasm of upper-inner quadrant of left breast in female, estrogen receptor positive documented in this encounter Care Teams Jet Worker Relationship Specialty Start Date End Date Angie Alonzo MD [facility] [address] [place] [address] PCP - General Family Medicine 06/25/17 documented as of this encounter
--- OUTSIDE RECORDS SUMMARY | 2024-03-11 15:14 | XMS_ITS | Encounter Summary ---
Author Organization [facility] [place] [address] Care Team Providers Care Stacker Name Role Phone Angie Alonzo MD Primary Care Provider [phone] Encounter Details Date Type Department Care Team (Late st Contact Info) Description 10/02/2019 Telephone [place]ology [place] [phone] Hananh Antonio, RN Social History Tobacco Use Types Packs/Day Years [...] Miscellaneous Notes * Telephone Encounter - Hannah Antonio RN - 10/02/2019 10:25 AM EDT Message received from clinical legal secretary: Call back [phone] Abimbola called this morning as her pharmacy cannot locate her new RX for her tamoxifen. Confirmed that [facility] was the correct location. She called this morning and they could not fill for her. Could you please resend her tamoxifen RX? Call placed to [facility] spoke w/satellite tv technician installer who explains that there was an issue with the insurancehowever they have fixed it and the script is now all set for patient to pepper picker. Call placed to patient updated her on the above. Pt in agreement with plan and knows to call clinicwith any concerns and/or questions. documented in this encounter Plan of Treatment Not on file documented as of this encounter Visit Diagnoses Not on filedocumented in this encounter Care Teams Stacker Relationship Specialty Start Date End Date Angie Alonzo MD [facility] [address] [facility] [address] [place] [address] PCP - General Family Medicine 06/25/17 documented as of this encounter
--- OUTSIDE RECORDS SUMMARY | 2024-03-11 15:14 | XMS_ITS | Encounter Summary ---
Author Organization [facility] Address [facility] [place] [address] Care Team Providers Care Student Finance Specialist Name Role Phone Angie Alonzo MD Primary Care Provider [phone] Encounter Details Date Type Department Care Team (Late st Contact Info) Description 09/11/2019 Telephone Endocrinology at [facility] [place] [phone] Nimco Mohan MD [facility] [place] [address] Social History Tobacco Use Types Packs/Day Years [...] encounter Miscellaneous Notes * Telephone Encounter - Nimco Mohan - 09/11/2019 8:10 AM EDT Endocrinology Telephone Note: Called to reschedule Abimbola's visit given previously stability of thyroid nodule and current COVID-19 outbreak. Spoke with daughter Marion who agreed with plan. Nimco Mohan MD PGY-5 [facility] Endocrinology, Diabetes, and Metabolism Fellow Pager #[phone] documented in this encounter Plan of Treatment Not on file documented as of this encounter Visit Diagnoses Not on filedocumented in this encounter Care Teams Student Finance Specialist Relationship Specialty Start Date End Date Angie Alonzo MD [facility] [address] [place] [address] PCP - General Family Medicine 06/25/17 documented as of this encounter
--- OUTSIDE RECORDS SUMMARY | 2024-03-11 15:14 | XMS_ITS | Encounter Summary ---
Author Organization [facility] Address [facility] [place] [address] Care Team Providers Care Sterile Processing Tech Name Role Phone Angie Alonzo MD Primary Care Provider [phone] Encounter Details Date Type Department Care Team (Late st Contact Info) Description 09/11/[address] [facility] [place] [phone] Nimco Mohan MD [facility] [place] [address] Social History Tobacco Use Types Packs/Day Years [...] Telephone Encounter - Nimco Mohan - 09/11/2019 8:11 AM EDT Endocrinology Telephone Note: Called Abimbola to reschedule appointment given her underlying co morbidities and current COVID-19 outbreak, she did not know she had an appointment today and agreed with plan to reschedule. Nimco Mohan MD PGY-5 [facility] Endocrinology, Diabetes, and Metabolism Fellow Pager #[phone] documented in this encounter Plan of Treatment Not on file documented as of this encounter Visit Diagnoses Not on filedocumented in this encounter Care Teams Sterile Processing Tech Relationship Specialty Start Date End Date Angie Alonzo MD [address] [place] [address] PCP - General Family Medicine 06/25/17 documented as of this encounter
--- OUTSIDE RECORDS SUMMARY | 2024-03-11 15:14 | XMS_ITS | Encounter Summary ---
[place] [address] Care Team Providers Care Poultry Farm Supervisor Name Role Phone Angie Alonzo MD Primary Care Provider [phone] Reason for Referral * Consultation (Routine) - Closed Specialty Diagnoses / Procedures Referred By Mima rivera Referred To Contact Orthopaedics Diagnoses Flat feet Pain in right foot Unilateral primary osteoarthritis, left knee Carlos Encinas MD [address] [place] [address] [facility] [address] [place] [phone] Referral ID Status Reason Start Date Expiration Date V isits Requested Visits Authorized [id number] Closed Consult, Test & Treat PCP Updated and/or Approved 02/11/2023 02/11/2024 6 6 Encounter Details Date Type Department Care Team (Late st Contact Info) Description 02/11/2023 Transcribe Orders eDH Incoming Referrals [phone] Carlos Encinas MD [address] [place], [place] [id number] Flat feet Social History Tobacco Use Types Packs/Day Years [...] as of this encounter Plan of Treatment Scheduled Referrals Name Type Priority Associated Diagnoses Order Schedule Referral to Orthopaedics Outpatient Referral Routine Flat feet Ordered: 02/11/2023 documented as of this encounter Visit Diagnoses Diagnosis Flat feet Flat foot documented in this encounter Care Teams Poultry Farm Supervisor Relationship Specialty Start Date End Date Angie Alonzo MD [address] [place] [address] PCP - General Family Medicine 06/25/17 documented as of this encounter
--- OUTSIDE RECORDS SUMMARY | 2024-03-11 15:14 | XMS_ITS | Encounter Summary ---
Author Organization [facility] Address [facility] [place] [address] Care Team Providers Care Group Counselor Name Role Phone Angie Alonzo MD Primary Care Provider [phone] Reason for Visit * Reason Onset Date Comments Medication Refill 09/09/2020 Encounter Details Date Type Department Care Team (Late st Contact Info) Description 09/09/2020 Refill Hematology and Oncology at [place] [phone] Belgica Gerber RN Malignant neoplasm of upper-inner quadrant of left [...] encounter Miscellaneous Notes * Telephone Encounter - Belgica Gerber RN - 09/09/2020 2:06 PM EST Message received from secretar: Abimbola would like a refill of her tamoxifen sent to [facility] in [facility]. Per review of medical record- started August 2017 with plan for treatment through August 2022 Script prepared and sent to provider for review, signature and escribe. documented in this encounter Plan of Treatment Not on file documented as of this encounter Visit Diagnoses Diagnosis Malignant neoplasm of upper-inner quadrant of left breast in female, estrogen receptor positive documented in this encounter Care Teams Group Counselor Relationship Specialty Start Date End Date Angie Alonzo MD [address] [place] [address] PCP - General Family Medicine 06/25/17 documented as of this encounter
--- OUTSIDE RECORDS SUMMARY | 2024-03-11 15:14 | XMS_ITS | Encounter Summary ---
Author Organization [facility] Address [facility] [place] [address] Care Team Providers Care Campaign Fundraiser Name Role Phone Angie Alonzo MD Primary Care Provider [phone] Encounter Details Date Type Department Care Team (Latest Contact Info) Description 03/05/2023 Travel Social History Tobacco Use Types Packs/Day [...] on filedocumented in this encounter Care Teams Campaign Fundraiser Relationship Specialty Start Date End Date Angie Alonzo MD [facility] [address] [place] [address] PCP - General Family Medicine 06/25/17 documented as of this encounter
--- OUTSIDE RECORDS SUMMARY | 2024-03-11 15:14 | XMS_ITS | Encounter Summary ---
Author Organization [facility] Address [facility] [place] [address] Care Team Providers Care Pad Machine Feeder Name Role Phone Angie Alonzo MD Primary Care Provider [phone] Encounter Details Date Type Department Care Team (Latest Contact Info) Description 03/27/2023 8:41 AM EDT - 03/27/2023 11:59 PM EDT Hospital Encounter XRay at [address] [place] [address] Crystal Hess MD [facility] [address] Right foot pain Discharge Disposition: Home Social [...] End Date MULTIVITAMIN ORAL 1 tablet. 09/01/2012 [place]-3 Fatty Acids 100 mg Tablet, Chewable daily. 03/28/2022 b complex vitamins Tablet 1 tablet. 03/28/2022 azelastine (ASTELIN) 137 mcg (0.1 %) Aerosol, [place] SPRAY 1 SPRAY INTO BOTH NOSTRILS ONCE [...] blood-glucose meter (FREESTYLE) Kit 1 each by [facility].(Non-Drug; Combo Route) route as needed for Other. aspirin 81 mg Tablet, Chewable Take 81 mg by mouth daily. traMADoL (Ultram) 50 mg tablet Take 1 tablet by mouth every 6 hours as needed for Pain. 15 tablet 06/27/2023 07/09/2023 empagliflozin (Jardiance) 10 mg tablet daily. 01/28/2023 09/09/2023 CALCIUM CARB, CITRATE/VIT D3 (CALCIUM CARB AND CITRATE-VITD3 ORAL) Take by mouth 2 times daily. 06/18/2023 documented as of this encounter Plan of Treatment Not on file documented as of this encounter Procedures Procedure Name Priority Date/Time Associated Diagnosis Comments XR FOOT MIN 3 VIEWS RIGHT Routine 03/27/2023 8:51 AM EDT Right foot pain documented in this encounter Results * XR Foot Min 3 views Right (Generic) (03/27/2023 8:51 AM EDT) Anatomical Region Laterality Modality Foot Right Digital Radiogra phy Impressions 03/27/2023 10:27 AM EDT 1. 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 No acute radiographic abnormality. 2. Small right heel spurs. Thank you for letting us participate in the care of this patient. ??If you are a health care provider and have any questions regarding this report, please contact the number below. ??For patients who have questions please contact the health health care recruiter that requested your imaging first. ? Electronically signed by: Zuleyka Chavez MD, [facility] ([phone]), at 03/27/2023 10:27 AM Narrative 03/27/2023 10:27 AM EDT EXAMINATION: XR FOOT MIN 3 VIEWS RIGHT (GENERIC) CLINICAL HISTORY: Right foot pain Perform WB TECHNIQUE: AP, oblique and lateral weightbearing views RIGHT foot COMPARISON: Radiographs January 28, 2023 and MRI February 13, 2023 FINDINGS: Bone mineralization is diffusely decreased. No fracture. Small enthesophytes at the calcaneal insertion of Achilles tendon and plantar fascia origin have no erosion or periostitis. Pes planovalgus alignment is present with osteophytes at the dorsal midfoot. Several hammertoes are present. Joint spacing is otherwise preserved. Aside from peripheral arterial calcifications, no focal soft tissue abnormality. Procedure Note Zuleyka Chavez MD - 03/27/2023 EXAMINATION: XR FOOT MIN 3 VIEWS RIGHT (GENERIC) CLINICAL HISTORY: Right foot pain Perform WB TECHNIQUE: AP, oblique and lateral weightbearing views RIGHT foot COMPARISON: Radiographs January 28, 2023 and MRI February 13, 2023 FINDINGS: Bone mineralization is diffusely decreased. No fracture. Smallenthesophytes at the calcaneal insertion of Achilles tendon and plantar fascia origin haveno erosion or periostitis. Pes planovalgus alignment is present with osteophytes at the dorsalmidfoot. Several hammertoes are present. Joint spacing is otherwise preserved. Aside from peripheral arterial calcifications, no focal soft tissueabnormality. IMPRESSION 1. Right pes planovalgus alignment with mild midfoot osteoarthropathyand hammertoes. No acute radiographic abnormality. 2. Small right heel spurs. Thank you for letting us participate in the care of this patient. If youare a health care provider and have any questions regarding this report,please contact the number below. For patients who have questions please contactthe health health care recruiter that requested your imaging first. Electronically signed by: Zuleyka Chavez MD, [facility]([phone]), at 03/27/2023 10:27 AM Crystal Hess MD IMG DX ORDERABLES documented in this encounter Visit Diagnoses Diagnosis Right foot pain Pain in limb documented in this encounter Care Teams Pad Machine Feeder Relationship Specialty Start Date End Date Angie Alonzo MD [address] [place] [address] [facility] [address] [place] [address] PCP - General Family Medicine 06/25/17 documented as of this encounter
--- OUTSIDE RECORDS SUMMARY | 2024-03-11 15:14 | XMS_ITS | Encounter Summary ---
Author Organization [facility] [place] [address] Care Team Providers Care Evp Sales Name Role Phone Angie Alonzo MD Primary Care Provider [phone] Encounter Details Date Type Department Care Team (Latest Contact Info) Description 03/04/2020 10:40 AM EDT Laboratory Appointment Lab [address] [place] [address] Solitary nodule of right lobe of thyroid Social History Tobacco Use Types Packs/Day Years [...] Date/Time Associated Diagnosis Comments HC VENIPUNCTURE STAT 03/04/2020 10:56 AM EDT Solitary nodule of right lobe of thyroid documented in this encounter Results * TSH (03/04/2020 10:56 AM EDT) Thyroid Stimulating Hormone 1.14 0.27 - 4.20 mcIU/mL [facility] Blood specimen (specimen) 03/04/2020 10:56 AM EDT 03/04/2020 11:03 AM EDT Narrative Resulting Agency Comment Spec In Lab Dolly De Luna MD CHEMISTRY ORDERABLES [facility] [place] [address] documented in this encounter Visit Diagnoses Diagnosis Solitary nodule of right lobe of thyroid Nontoxic uninodular goiter documented in this encounter Care Teams Evp Sales Relationship Specialty Start Date End Date Angie Alonzo MD [address] [facility] [address] [place] [address] PCP - General Family Medicine 06/25/17 documented as of this encounter
--- OUTSIDE RECORDS SUMMARY | 2024-03-11 15:14 | XMS_ITS | Encounter Summary ---
Author Organization [facility] [place] [address] Care Team Providers Care Bottom Presser Name Role Phone Angie Alonzo MD Primary Care Provider [phone] Encounter Details Date Type Department Care Team (Late st Contact Info) Description 03/05/2023 10:40 AM EDT Office Visit General Surgery at [place] [address] Kasey Delgado, SPECIALIST PH[facility]IC[facility] [place] [address] Encounter for follow-up surveillance of breast cancer; Malignant neoplasm of upper-inner quadrant of left breast in female, estrogen receptor positive; Breast cancer screening by mammogram Social History [...] as of this encounter Progress Notes * Kasey Delgado, LINDSEY - 03/05/2023 10:40 AM EDT Images from the original note were not included. Patient ID: Abimbola Dumas is a 77 y.o. female HPI: Abimbola is a former [...] She had a left hip replacement in 2019, and a right knee replacement in 2020. Abimbola has injured her foot earlier this year. She had PT and has an appointment with Orthopedics later this month. Breast cancer history: A screening mammogram on 11/09/2016 at [facility] noted a new 0.9 mm mass in the left, upper inner quadrant. US showed a subtle 6-mm hypoechoic mass with some internal vascularity. She underwent biopsy on 12/04/2016 which came back as benign, but a second read here at [facility] was not concordant, so she was sent to [facility] and had repeat biopsy which showed a low grade, ER/FL positive, HER-2 negative breast cancer. One sentinel node was negative. She completed XRT to the left breast on 09/02/2017 and started tamoxifen on September 16, 2017. She completed 5 years therapy earlier this year. BREAST CANCER NOTES 01/24/2021 Method of Cancer Detection Screening mammogram Menopausal Status at Diagnosis postmenopausal Date of Diagnostic Biopsy 12/04/2016 Local Surgery 07/04/2017 Axillary Management SNE Date of Last Surgical Procedure 07/04/2017 Histology Invasive ductal carcinoma Size of Primary Malignancy 6 mm Grade Low grade Margin Negative ER Positive FL Positive First Adjuvant Endocrine Therapy Tamoxifen started 09/16/2017 Radiation therapy Completed 09/02/2017 Genetic Testing Not tested Surveillance Annual mammogram and CBE Comprehensive Breast Program Surgery Follow Up: Range of motion of surgical arm complete Lymphedema present No Cosmesis-surgeon reported Cosmesis-patient reported Excellent Excellent Local or regional recurrence No Contralateral cancer present No Distant recurrence present No Date of last follow up 02/20/2022 Breast Cancer Risk Factors: History Age at delivery of first child 21 yo Breast fed No Oral contraceptive use Yes Menarche age unsure LMP 50s Hormone replacement therapy No Family history of breast cancer No Family history of ovarian cancer No Ashkenazi Christian heritage No Known genetic mutation Not tested Family History Problem (# of Occurrences) Relation (Name,Age of Onset) Lung Cancer (1) Sister: smoker Negative family history of: Breast Cancer, Ovarian Cancer Social Hx: Abimbola is retired and lives alone. She enjoys quilting and is active in the pool ~ 3 days/wk. She had been riding a stationary bike, but has been unable to recently with her foot injury. She has never smoked; occasional ETOH. Past Surgical Hx: CABG Past Medical Hx: CAD Physical Exam: General appearance: Alert, well-developed, well-nourished; in no acute distress. Skin: Warm and dry. Head: Normocephalic, atraumatic. Neck: Soft and supple without masses or supraclavicular adenopathy. Cardiovascular: Normal rate, regular rhythm and normal heart sounds. Soft murmur heard. Pulmonary: Effort normal and breath sounds normal. No respiratory distress, cough, or wheezing. Breasts: Exam performed in the upright and supine positions. Left breast with well-healed incision in medial breast. Skin thickening of the left breast s/p radiation changes. Right breast with normalappearance and contour. No suspicious masses, tenderness, dimpling, erythema, or other skin changesin either breast. No nipple discharge or other [...] evidence of malignancy, BI-RADS Category 2 with scattered areas of fibroglandular breast tissue. Post treatment changes on the left. The results were reviewed with her at today's appointment. Assessment: Clinical breast exam without notable masses, skin changes, dimpling, or nipple discharge. Doing well without evidence of local recurrence. Stable exam. Plan: 1. Encounter for follow-up surveillance of breast cancer 2. Malignant neoplasm of upper-inner quadrant of left breast in female, estrogen receptor positive I have discussed my assessment and recommendations with Abimbola to include breast awareness and PRN mammographic screening with clinical breast exams. Now that she is 5 years out from surgery, we discussed ongoing screening. At this time, Abimbola would like to return to local imaging and PRN breast exams. She knows to contact me if she develops any new breast changes or concerns in the future. She agreesto this plan. Survivorship recommendations: Continue annual bilateral screening mammograms until life expectancy is <10 years and you remainin good health, or as long as you would consider treatment for a breast cancer if found. Continue clinical breast exams at least once yearly. Continue self breast awareness. For any new or worsening symptoms for which cause remains undetermined, consider breast cancer recurrence. Specifically - new or worsening skeletal pain, headache, diplopia, neurologic deficits, elevated LFTs, abdominal pain/swelling, cough, or SOB. Get at least 150 minutes of cardiovascular exercise and 2 days of resistance/strength training per week. Ways to include exercise at home include yoga and bone building exercise videos online. Eat a mainly plant-based Mediterranean style diet. Minimize processed foods, simple carbohydrates, sugars, and artificial sweeteners. Do not smoke. If consuming alcohol, limit to 1 drink or less per day. Maintain or achieve a healthy weight. Normal BMI < 25 for individuals under 65 years old; 22-30 for > 65 years old. Manage stress levels. Be cautious about exposure risk, both what you put in and on your body (ie: artificial fragrances, artificial dyes, as well as certain ingredients in makeup, hair and body care, antiperspirant, sunscreen, insect repellant, laundry detergent, fabric softener, dryer sheets, etc.). Resources to help you make informed choices for personal care products are available at EWG (Environmental Working Group) at https://www.ewg.org and free apps for your cell phone from [employer] (Healthy Living) and [employer] ([employer]). All questions were answered to the patient's satisfaction and they state understanding and agreement with today's treatment plan. They are encouraged to follow up sooner if they develop any new or concerning symptoms. Kasey Delgado APRN Surgical Oncology P [phone] F [phone] [facility] documented in this encounter Plan of Treatment Not on file documented as of this encounter Visit Diagnoses Diagnosis Encounter for follow-up surveillance of breast cancer Unspecified follow-up examination Malignant neoplasm of upper-inner quadrant of left breast in female, estrogen receptor positive Breast cancer screening by mammogram documented in this encounter Care Teams Bottom Presser Relationship Specialty Start Date End Date Angie Alonzo MD [address] [place] [address] PCP - General Family Medicine 06/25/17 documented as of this encounter
--- OUTSIDE RECORDS SUMMARY | 2024-03-11 15:14 | XMS_ITS | Encounter Summary ---
Author Organization [facility] Address [facility] [place] [address] Care Team Providers Care Parts Control Clerk Name Role Phone Angie Alonzo MD Primary Care Provider [phone] Encounter Details Date Type Department Care Team (Latest Contact Info) Description 07/28/2020 3:30 PM EST TH Visit (TeleHealth) Hematology [place] [address] Kalyan Damico MD [facility] HEMATOLOGY/[facility] [place] [address] Malignant neoplasm of upper-inner quadrant of left [...] Progress Notes * Kalyan Damico MD - 07/28/2020 3:30 PM EST Heme-Onc Staff Abimbola uDmas is a 74 y.o. female with Stage I breast cancer, who I spoke with today in six month followup. Subjective: Ms. Dumas presented on screening mammography [...] She started tamoxifen on September 16, 2017. ?? Abimbola was referred to cardiology to work up a murmur prior to an anticipated left hip replacement. She had a positive nuclear stress test, and a cardiac cath showed triple vessel disease. She underwentcoronary artery bypass grafting on March 05, 2019, and she did well. She underwent a left hip replacement on November 18, 2019. She took aspirin at 162 mg daily for a month for VTE prophylaxis, and shewas off tamoxifen for two weeks prior to and after the surgery. Her left hip pain has resolved, herleft knee was more painful and that knee was injected on February 01, 2020. The pain in the knee responded to the injection, but the pain is beginning to act up again. She also has pain in her right knee, wrists, and hands, but she has no other sites of joint or skeletal pain. She denies any hot flashes or sweats, she denies any vaginal bleeding, and she has no erythema or warmth in either leg. She rides an exercise bicycle and she does stretching exercises, but she no longer attends the pool for water exercises. ?? Review of Systems She denies breast pain or a palpable breast mass, a cough, shortness of breath, chest pain, nausea,vomiting, diarrhea, constipation, headaches, double vision, or skin rashes. The remainder of her review of systems is negative. The most recent LFTs from January 26, 2020 included an albumin of 4.3, bili 0.3, alk phos 59, AST 31, and ALT 31. ?? The most recent 3-D mammograms from January 26, 2020 showed no suspicious microcalcifications, masses,or architectural distortion, with post-treatment changes on the left. The breasts are almost entirely fatty. Decision Making/Plan: Abimbola is doing well and she has no evidence of breast cancer recurrence. She istrying to stay safe with social distancing, and she is scheduled to receive her first COVID vaccination on August 11. She is trying to get plenty of exercise. I will see her next in followup in sixmonths, I will order repeat LFTs then, and I will coordinate that appointment with Kaesy Delgado and with her next mammograms. She knows to contact us in the interim if she has any concerns over her breast exam. Patient verbally consents to this telephone visit and understands that this visit may be billed, similar to a clinic office visit. I provided care to the patient today via telephone call. The total time associated with this visit was 10 minutes. Kalyan Damico MD poster in Hematology-Oncology documented in this encounter Plan of Treatment Not on file documented as of this encounter Results * Hepatic Function Panel (01/24/2021 7:25 AM EDT) Protein, Total 6.7 6.1 - 8.0 gm/dL [facility] Albumin 4.0 3.2 - 5.2 gm/dL [facility] Aspartate Aminotransferase 20 0 - 30 unit/L [facility] Alanine Aminotransferase 19 0 - 30 unit/L [facility] Alkaline Phosphatase 53 35 - 105 unit/L [facility] Bilirubin, Total 0.4 0.2 - 1.3 mg/dL [facility] Bilirubin, Direct 0.1 0.0 - 0.3 mg/dL [facility] Blood 01/24/2021 7:25 AM EDT 01/24/2021 7:41 AM EDT Narrative Resulting Agency Comment Spec In Lab Kalyan Damico MD CHEMISTRY ORDERABLES [facility] [place] [address] documented in this encounter Visit Diagnoses Diagnosis Malignant neoplasm of upper-inner quadrant of left breast in female, estrogen receptor positive documented in this encounter Care Teams Parts Control Clerk Relationship Specialty Start Date End Date Angie Alonzo MD [address] [place] [address] PCP - General Family Medicine 06/25/17 documented as of this encounter
--- OUTSIDE RECORDS SUMMARY | 2024-03-11 15:14 | XMS_ITS | Encounter Summary ---
Author Organization [facility] [place] [address] Care Team Providers Care Restaurant Maintenance Technician Name Role Phone Angie Alonzo MD Primary Care Provider [phone] Reason for Visit * Reason Comments Follow-up Encounter Details Date Type Department Care Team (Late st Contact Info) Description 02/20/2022 10:00 AM EDT Office [place] [address] Kasey Delgado APRN [facility] [place] [address] Encounter for follow-up surveillance of breast cancer; [...] of this encounter Progress Notes * Kasey Delgado APRN - 02/20/2022 10:00 AM EDT Images from the original note were not included. Patient ID: Abimbola Dumas is a 76 y.o. female HPI: Abimbola is a former [...] and a right knee replacement in 2020. Breast cancer history: A screening mammogram on 11/09/2016 at [facility] noted a new 0.9 mm mass in the left, upper inner quadrant. US showed a subtle 6-mm hypoechoic mass with some internal vascularity. She underwent biopsy on 12/04/2016 which came back as benign, but a second read here at [facility] was not concordant, so she was sent to [facility] and had repeat biopsy which showed a low grade, ER/IN positive, HER-2 negative breast cancer. One sentinel [...] Grade Low grade Margin Negative ER Positive IN Positive First Adjuvant Endocrine Therapy Tamoxifen started 09/16/2017 Radiation therapy Completed 09/02/2017 Genetic Testing Not tested Surveillance Annual mammogram and CBE Comprehensive Breast Program Surgery Follow Up: Range of motion of surgical arm complete Lymphedema present No Cosmesis-surgeon reported Cosmesis-patient reported Excellent Excellent Local or regional recurrence No Contralateral cancer present No Distant recurrence present No Date of last follow up 01/24/2021 Breast Cancer Risk Factors: History Age at delivery of first child 21 yo Breast fed No Oral contraceptive use Yes Menarche age unsure LMP 50s Hormone replacement therapy No Family history of breast cancer No Family history of ovarian cancer No Ashkenazi [employer] heritage No Known genetic mutation Not tested Family History Problem (# of Occurrences) Relation (Name,Age of Onset) Lung Cancer (1) Sister: smoker Negative family history of: Breast Cancer, Ovarian Cancer Social Hx: Abimbola is retired and lives alone. She enjoys quilting and is active in the pool ~ 3 days/wk and riding a stationary bike. She has never smoked; occasional ETOH. Past Surgical Hx: CABG Past Medical Hx: CAD Physical Exam: General appearance: Alert, well-developed, well-nourished; in no acute distress. Skin: Warm and dry. Head: Normocephalic, atraumatic. Neck: Soft and supple without masses or cervical adenopathy. Cardiovascular: Normal rate, regular rhythm and [...] situation. Results: Imaging performed (bilateral mammogram) at [facility] today shows no evidence of malignancy, BI-RADS [...] in female, estrogen receptor positive 3. Breast cancer screening by mammogram - Mammo Screening Cad and Yamil Bilateral; January 2023 I have discussed my assessment and recommendations with Abimbola to include occasional self-breast examsand annual mammographic screening with clinical breast exams. Based on her risk status, her next bilateral screening mammogram is due in one year, or sooner if indicated. I will plan to see her for aclinical breast exam at that time. After that appointment, she will plan to transfer to [facility] for mammograms if they continue. She will contact me if she develops any new [...] free apps for your cell phone from [email or web address] ([employer]) and [employer] ([employer]). All questions were answered to the patient's satisfaction and they state understanding and agreement with today's treatment plan. They are encouraged to follow up sooner if they develop any new or concerning symptoms. Kasey Delgado APRN Surgical Oncology P [phone] F [phone] [facility] documented in this encounter Plan of Treatment Not on file documented as of this encounter Results * Mammo Screening Cad and Yamil [...] ? Electronically signed by: Billie Parker MD, [facility] ([phone]), at 03/05/2023 10:10 AM Narrative 03/05/2023 10:10 [...] receptor positive Breast cancer screening by mammogram Malignant neoplasm of upper-inner quadrant of left breast in female, estrogen receptor positive Breast cancer screening by mammogram documented in this encounter Care Teams Restaurant Maintenance Technician Relationship Specialty Start Date End Date Angie Alonzo MD [address] [place] [address] PCP - General Family Medicine 06/25/17 documented as of this encounter
--- OUTSIDE RECORDS SUMMARY | 2024-03-11 15:14 | XMS_ITS | Encounter Summary ---
Author Organization [facility] Address [facility] [place] [address] Care Team Providers Care Smelter Operator Name Role Phone Angie Alonzo MD Primary Care Provider [phone] Encounter Details Date Type Department Care Team (Latest Contact Info) Description 01/24/2021 7:03 AM EDT - 01/24/2021 7:28 AM EDT Hospital Encounter Hematology and Oncology at [facility] [place] [id number] Malignant neoplasm of upper-inner quadrant of left [...] blood-glucose meter (FREESTYLE) Kit 1 each by [facility]Non-Drug; Combo Route) route as needed for Other. aspirin 81 mg Tablet, Chewable Take 81 mg by mouth daily. 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 90 tablet 3 09/09/2020 09/29/2021 Xrpiy-3-QHI-EPA-Fish Oil 1,200 (144-216) mg Capsule Take by [...] Date/Time Associated Diagnosis Comments HC VENIPUNCTURE STAT 01/24/2021 7:25 AM EDT Malignant neoplasm of upper-inner quadrant of left breast in female, estrogen receptor positive documented in this encounter Results * Hepatic Function Panel (01/24/2021 7:25 AM EDT) Pathologist [facility] Protein, Total 6.7 6.1 - 8.0 gm/dL [facility] Albumin 4.0 3.2 - 5.2 gm/dL [facility] Aspartate Aminotransferase 20 0 - 30 unit/L [facility] Alanine Aminotransferase 19 0 - 30 unit/L [facility] Alkaline Phosphatase 53 35 - 105 unit/L [facility] Bilirubin, Total 0.4 0.2 - 1.3 mg/dL [facility] Bilirubin, Direct 0.1 0.0 - 0.3 mg/dL [facility] Blood 01/24/2021 7:25 AM EDT 01/24/2021 7:41 AM EDT Narrative Resulting Agency Comment Spec In Lab Kalyan Damico MD CHEMISTRY ORDERABLES [facility] [place] [address] documented in this encounter Visit Diagnoses Diagnosis Malignant neoplasm of upper-inner quadrant of left breast in female, estrogen receptor positive documented in this encounter Care Teams Smelter Operator Relationship Specialty Start Date End Date Angie Alonzo MD [address] [facility] [place] [address] PCP - General Family Medicine 06/25/17 documented as of this encounter
--- OUTSIDE RECORDS SUMMARY | 2024-03-11 15:14 | XMS_ITS | Encounter Summary ---
Author Organization [facility] Address [facility] [place] [address] Care Team Providers Care Sec Reporting Consultant Name Role Phone Angie Alonzo MD Primary Care Provider [phone] Encounter Details Date Type Department Care Team (Late st Contact Info) Description 03/21/2023 [place] [address] Crystal Hess MD [facility] DR OR[place] [address] Right foot pain Social History Tobacco Use [...] have questions please contact the health healthcare recruiter that requested your imaging first. ? Electronically signed by: Zuleyka Chavez MD, [facility] ([phone]), at 03/27/2023 10:27 AM Narrative 03/27/2023 10:27 [...] who have questions please contactthe health healthcare recruiter that requested your imaging first. Crystal Hess MD IMG DX ORDERABLES documented in this encounter Visit Diagnoses Diagnosis Right foot pain Pain in limb Right foot pain Pain in limb documented in this encounter Care Teams Sec Reporting Consultant Relationship Specialty Start Date End Date Angie Alonzo MD [facility] [address] [facility] [address] [place] [address] PCP - General Family Medicine 06/25/17 documented as of this encounter
--- OUTSIDE RECORDS SUMMARY | 2024-03-11 15:14 | XMS_ITS | Encounter Summary ---
Author Organization [facility] Address [facility] [place] [address] Care Team Providers Care Nitrogen Operator Name Role Phone Angie Alonzo MD Primary Care Provider [phone] Reason for Visit * Reason Comments Medication Refill Encounter Details Date Type Department Care Team (Late st Contact Info) Description 02/05/2021 Refill H[place] [address] Kalyan Damico MD [facility] [address] HEMATOLOGY/[place] [address] Malignant neoplasm of upper-inner quadrant of left [...] positive documented in this encounter Care Teams Nitrogen Operator Relationship Specialty Start Date End Date Angie Alonzo MD [address] [place] [address] [address] [place] [address] PCP - General Family Medicine 06/25/17 documented as of this encounter
--- OUTSIDE RECORDS SUMMARY | 2024-03-11 15:14 | XMS_ITS | Encounter Summary ---
Author Organization [facility] Address [facility] [place] [address] Care Team Providers Care Wood Gouger Name Role Phone Angie Alonzo MD Primary Care Provider [phone] Encounter Details Date Type Department Care Team (Late st Contact Info) Description 02/02/2021 9:30 AM EDT Office Visit Radiation Oncology at [address] [phone] Edel Guzman, FAITH HEALER [facility] [place] [address] Malignant neoplasm of upper-inner quadrant of left [...] Sign Reading Time Taken Comments Blood Pressure 138/57 02/02/2021 9:33 AM EDT Pulse 74 02/02/2021 9:33 AM EDT Temperature 37 ??C (98.6 ??F) 02/02/2021 9:33 AM EDT Respiratory Rate 20 02/02/2021 9:33 AM EDT Oxygen Saturation 98% 02/02/2021 9:33 AM EDT Inhaled Oxygen Concentration - - Weight 102.5 kg (226 lb) 02/02/2021 9:33 AM EDT Height 167.6 cm (5' 6) 02/02/2021 9:33 AM EDT Body Mass Index 36.48 02/02/2021 9:33 AM EDT documented in this encounter Progress Notes * Edel Guzman, FAITH HEALER - 02/02/2021 9:30 AM EDTSummary: 75 year old female FUV for breast cancer, post radiation therapy 2017 [facility] RADIATION ONCOLOGY [place] [id number] Phone: RADIATION ONCOLOGY FOLLOW UP NOTE Date of visit: 02/02/21 Patient Abimbola Dumas 1945 PCP: Angie Alonzo MD Radiation oncologist: Dr. Bethany Merrill Medical Oncologist: Dr. Kalyan aDmico (follows with her tamoxifen) Surgeon: Dr Farooq s/p PM, oncoplasty and sentinel node biopsy 07/04/17 Followed yearly by surgical AUTOMATION TEST DEVELOPER and mammo Chief Complaint: scheduled FUV for breast cancer, post radiation therapy Time since completed RT: 09/02/2017 Current treatment: Med Onc follows with tamoxifen management. Surgery follows with Mammo Screening Cad and Yamil Bilateral; scheduled for December 2021 ?? HPI: 71 y/o f who completed xrt 2 mos ago (09/02/17) to L breast for breast ca, IDC, low gr, ER+OR+, Her2 neg, s/p lumpectomy & SNB, pT1b pN0, stage I. 11/21/17 appt w/ Dr. Jeff in Endocrine for eval 2.4 cm thyroid nodule seen in R thyroid lobe on 07/23/17 CTsim, w/08/30/17 US showing 2.1 cm solid R thyroid nodule. 09/10/17 US guided FNA 1.7 cm R thyroid nodule showed atypia of undetermined signficance. Surgical Hx: L Breast PM, oncoplasty and sentinel node biopsy 07/04/17 R breast lumpectomy 20 yrs ago (benign) Hysterectomy @ age 48 yrs. ?? Interim HPI: I reviewed the following outside notes: n/a Medications 01/24/21 0903 Medication Sig Taking? tamoxifen (NOLVADEX) 20 mg Tablet Take 1 tablet by mouth daily. vitamin B complex (B COMPLEX ORAL) Take by mouth daily as needed. Jllsu-0-SSD-EPA-Fish Oil (Fish Oil) 1,200 (144-216) mg Capsule Take by mouth 2 times daily. lisinopriL (Prinivil;Zestril) 40 mg Tablet TAKE ONE TABLET BY MOUTH ONCE DAILY amLODIPine (NORVASC) 10 mg Tablet Take 5 mg by mouth daily. furosemide (LASIX) 20 mg Tablet 40 mg. potassium chloride (K-DUR/KLOR-CON) 20 mEq Tab Sust.Rel. Particle/Crystal TAKE 1 TABLET BY MOUTH ONCE DAILY acetaminophen (TYLENOL) 500 mg Tablet Take 2 tablets by mouth every 6 hours. metoprolol tartrate (LOPRESSOR) 25 mg Tablet Take 1 tablet by mouth 2 times daily. senna-docusate (PERICOLACE) 8.6-50 mg Tablet Take 2 tablets by mouth daily. METHYLCELLULOSE (CITRUCEL ORAL) Take by mouth daily as needed. pantoprazole (PROTONIX) 20 mg Tablet, Delayed Release (E.C.) Take 20 mg by mouth daily. atorvastatin (LIPITOR) 40 mg Tablet Take 40 mg by mouth daily. blood-glucose meter (SwitchflySTYLE) Kit 1 each [place] [facility] [place]Non-Drug; Combo Route) route as needed for Other. aspirin 81 mg Tablet, Chewable Take 81 mg by mouth daily. CALCIUM CARB, CITRATE/VIT D3 (CALCIUM CARB AND CITRATE-VITD3 ORAL) Take by mouth. Review of Symptoms: Patient concerns for today's visit: Skin changes at radiation /surgery site: There are no skin changes at the radiation and surgery site Lymphedema of breast and/or arm: No lymphedema of the breast or arms fatigue: Denies fatigue Respiratory symptoms: No coughs colds congestion, wheezing or other respiratory problems cardiac symptoms: Denies heart pain, pressure, palpitations. Notes her water pill was increased andshe has less edema in her lower extremities at this time. 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 No need antidepressant, spends time quilting, sewing clothing for her grandchildren and great grandchildren and is involved with family and friends. Alteration sexual function/body image:no problem at this time Pain:none except her R knee arthritis. She anticipates surgery for right knee arthritis coming up soon. Lifestyle/health: Weight/diet/appetite: She notes that she has gained a few pounds sleep: No problems function/transportation: No problems Exercise/Bone health:2 days week -3 in pool Smoking:never Alcohol:rare Support/ social relationships:family, daughter and granddaughter nearby Regular visits with PCP/immunizations/screenings:2x year with primary care, did have immunization for Covid in August and August of this year. Financial concerns: doing ok Advanced directives: Not addressed at this time Performance Status: KPS Score ECOG Grade Definition x 90-100 0 Fully active, able to carry on all pre-disease performance without restriction 70-80 1 Restricted in physically strenuous activity but ambulatory and able to carry out work of a light or sedentary nature, e.g., light house work, office work 50-60 2 Ambulatory and capable of all selfcare but unable to carry out any work activities; up and about more than 50% of waking hours 30-40 3 Capable of only limited selfcare; confined to bed or chair more than 50% of waking hours 10-20 4 Completely disabled; cannot carry on any selfcare; totally confined to bed or chair Physical Examination: Vitals Office Visit from 02/02/2021 in Radiation Oncology at [facility] Weight 102.5 kg (226 lb) Height 167.6 cm (5' 6) BSA (Calculated - sq m) 2.18 sq meters BMI (Calculated) 36.47 Temp 37 ??C (98.6 ??F) Temp src Temporal Heart Rate 74 Resp 20 BP 138/57 BP Location Right arm Patient Position Sitting SpO2 98 % Constitutional: NAD HENT: normocephalic, sclera and conjunctiva anicteric and without injection, neck supple, no adenopathy Cardiovascular: Rate and Rhythm: Normal rate and regular rhythm. Heart sounds: Normal heart sounds. No murmur Pulmonary: Effort: Pulmonary effort is normal. Breath sounds: Normal breath sounds. No wheezing or rales. Musculoskeletal: Normal range of motion. General: No swelling or deformity. Comments: Ambulates without assistance Skin: General: Skin is warm and dry. Neurological: General: No focal deficit present. Mental Status: alert and oriented to person, place, and time. Gait: Gait normal. Psychiatric: Mood and Affect: Mood normal. Behavior: Behavior normal. Thought Content: Thought content normal. Judgment: Judgment normal. Breast exam: Breasts: Left breast with well-healed incision in medial breast. Skin thickening of the left breasts/p radiation changes. Right breast appears normal. No suspicious masses, tenderness, dimpling, erythema, or other skin changes in either breast. No nipple discharge or other nipple changes. No palpable axillary lymph nodes bilaterally. No obvious discrete or dominant masses in either breast. Surgery: _x_breast conserving __mastectomy __right _x_left __bilateral x__SLN __ALND __reconstruction: __implants __autologous (flap) XRT treated site: __right_x_left__bilateral __breast__mastectomy(chest) Exam: __symmetrical _x_non symmetrical (size, shape) _x_no nipple inversion or discharge either breast _x_no masses either breast _x_scars (justin-areolar, wide local excision, merged with axillary scar, mastectomy scar) x__no edema R/L arm _x_no limitations ROM R/L arm Telangectasias: _x__None, ____Few; Moderate; Many and confluent Hypopigmentation: __x_None; ____Slight or localized; ____Marked or generalized Hyperpigmentation: _x__None; ____Slight or localized; ____Marked or generalized Fibrosis: ___None; ____Increased density; ___Marked increased density + retraction; ____ Very marked Dry skin: _x__None; ____Asymptomatic; symptomatic; Interferes with ADL Cosmetic Result: _x_Excellent; Good;____ Fair; ____Poor New Imaging Reviewed this Visit: 01/24/21 Mammo CAD and YAMIL Bilateral FINDINGS: Breast density: The breasts are almost entirely fatty ?? There are no suspicious microcalcifications, masses, or areas of distortion. There are post treatment changes in the left breast. Specifically there are benign dystrophic calcifications in the lumpectomy bed. ?? CONCLUSION: No mammographic evidence of malignancy. ?? RECOMMENDATION: Routine annual screening. ?? BIRADS CATEGORY 2: BENIGN FINDINGS Assessment: 75 y.o. presenting for follow up of breast cancer, for which she completed adjuvant radiation 09/02/2017. She is followed by surgery, med onc and rad onc for breast cancer. Medical Decision Making/Recommendations/Plan: # breast cancer: No concerning reported symptoms or physical examination findings today # effects of EBRT: we discussed the potential for late effects of radiation including but not limited to skin changes (thickening, pigmentation changes, retraction, fibrosis, telangiectasias, edema of breast/arm; lung and/ or cardiac injury/inflammation. # survivorship concerns: # lifestyle/wellness concerns: # Reviewed: Symptoms that you should bring to the attention of your provider: 1. Anything that represents a brand new symptom; 2. Anything that represents a persistent symptom for more than 2 weeks: 3. Anything you are worried about that may be related to your cancer coming back For example, Persistent pain, cough, shortness of breath, headache. Any change in skin at treatment site from post treatment baseline or new lump or nipple discharge. Vaginal bleeding/spotting if you are on tamoxifen. # follow up: NCCN guidelines: history and physical examination every 6-12 months X 5 years, annual mammogram. Since she is seeing oncology every 6 months and surgery annually for mammogram, we don't need to continue to see her in radiation. She is agreeable to this plan. She was encouraged to call anytime if she has questions or concerns. Abimbola Dumas had the opportunity to ask questions and I answered them to the best of my knowledge. Abimbola Dumas agreed to contact radiation oncology in between visits if she has any questions/concerns ornew symptoms in regards to the radiation therapy/breast cancer # resources provided: No additional resources at this time # referrals done: No referrals needed Next visit: 6 months RTC but she may call to push back if all is well and unchanged in health and no sx with breast. Edel Guzman MSN, FAITH HEALER, AUTOMATION TEST DEVELOPER-C Nurse Practitioner Radiation Oncology documented in this encounter Plan of Treatment Not on file documented as of this encounter Visit Diagnoses Diagnosis Malignant neoplasm of upper-inner quadrant of left breast in female, estrogen receptor positive documented in this encounter Care Teams Wood Gouger Relationship Specialty Start Date End Date Angie Alonzo MD [address] [place] [address] PCP - General Family Medicine 06/25/17 documented as of this encounter
--- OUTSIDE RECORDS SUMMARY | 2024-03-11 15:14 | XMS_ITS | Encounter Summary ---
Author Organization [facility] Address [facility] [place] [address] Care Team Providers Care Plisse Machine Operator Helper Name Role Phone Angie Alonzo MD Primary Care Provider [phone] Encounter Details Date Type Department Care Team (Latest Contact Info) Description 01/24/2021 7:29 AM EDT - 01/24/2021 11:59 PM EDT Hospital Encounter Mammography/[place] [phone] Kasey Delgado APRN [facility] [place] [address] Malignant neoplasm of upper-inner quadrant of left breast in female, estrogen receptor positive; Breast cancer screening by mammogram Discharge Disposition: Home Social History Tobacco Use [...] blood-glucose meter (FREESTYLE) Kit 1 each by [facility] [place]Non-Drug; Combo Route) route as needed for Other. aspirin 81 mg Tablet, Chewable Take 81 mg by mouth daily. tamoxifen (NOLVADEX) 20 mg TabletIndications:Kristy sterling neoplasm of upper-inner quadrant of left breast in female, estrogen receptor positive Take 1 tablet by mouth daily. 90 tablet 3 09/09/2020 09/29/2021 Cnket-8-ZAK-EPA-Fish Oil 1,200 (144-216) mg Capsule Take by [...] Associated Diagnosis Comments MAMMO SCREENING CAD AND WAYNE BILATERAL Routine 01/24/2021 7:57 AM EDT Malignant neoplasm of upper-inner quadrant of left breast in female, estrogen receptor positive Breast cancer screening by mammogram documented in this encounter Results * Mammo Screening Cad and Wayne Bilateral (01/24/2021 7:57 AM EDT) Anatomical Region Laterality Modality Breast Bilateral Mammography Narrative 01/24/2021 8:14 AM EDT EXAMINATION: MAMMO SCREENING CAD AND WAYNE BILATERAL REASON FOR EXAM: Screening. History of left breast cancer. TECHNIQUE: CC and MLO views were obtained of both breasts. Computer aided detection was used. 3D tomosynthesis images were obtained in addition to 2D images. COMPARISON: The study is compared with prior images. FINDINGS: Breast density: The breasts are almost entirely fatty There are no suspicious microcalcifications, masses, or areas of distortion. There are post treatment changes in the left breast. Specifically there are benign dystrophic calcifications in the lumpectomy bed. CONCLUSION: No mammographic evidence of malignancy. RECOMMENDATION: Routine annual screening. BIRADS CATEGORY 2: BENIGN FINDINGS * ??Regular screening [...] who have questions please contact the health client care manager that requested your imaging first. ? Kasey Delgado APRN IMG MAMMO ORD ERABLES documented in this encounter Visit Diagnoses Diagnosis Malignant neoplasm of upper-inner quadrant of left breast in female, estrogen receptor positive Breast cancer screening by mammogram documented in this encounter Care Teams Plisse Machine Operator Helper Relationship Specialty Start Date End Date Angie Alonzo MD [address] [place] [address] PCP - General Family Medicine 06/25/17 documented as of this encounter
--- OUTSIDE RECORDS SUMMARY | 2024-03-11 15:14 | XMS_ITS | Encounter Summary ---
Author Organization [facility] [place] [address] Care Team Providers Care Supervisor Accounts Receivable Name Role Phone Angie Alonzo MD Primary Care Provider [phone] Encounter Details Date Type Department Care Team (Latest Contact Info) Description 01/26/2020 11:02 AM EDT - 01/26/2020 11:44 AM EDT Hospital Encounter Mammography/[place] [phone] Kasey Delgado APRN [facility] [place] [address] History of breast cancer; Encounter for screening mammogram for breast cancer Discharge Disposition: Home Social History Tobacco Use [...] mcg (200 unit) Tablet 1 tablet. 09/01/2012 lisinopriL (Prinivil;Zestril) 40 mg Tablet TAKE ONE [...] (FREESTYLE) [place] 1 [place] [facility] [place]Non-Drug; Combo Route) route as needed for Other. aspirin 81 mg Tablet, Chewable Take 81 mg by mouth daily. tamoxifen (NOLVADEX) 20 mg TabletIndications:Malig nant neoplasm of upper-inner quadrant of left breast in female, estrogen receptor positive TAKE 1 TABLET BY MOUTH ONCE DAILY 90 tablet 3 09/28/2019 09/09/2020 senna-docusate (PERICOLACE) 8.6-50 mg Tablet Take 2 tablets by mouth daily. 03/09/2019 07/17/2022 CALCIUM CARB, CITRATE/VIT D3 (CALCIUM CARB AND CITRATE-VITD3 ORAL) Take by mouth 2 times daily. 06/18/2023 documented as of this encounter Plan of Treatment Not on file documented as of this encounter Procedures Procedure Name Priority Date/Time Associated Diagnosis Comments MAMMO SCREENING CAD AND WAYNE BILATERAL Routine 01/26/2020 11:39 AM EDT History of breast cancer Encounter for screening mammogram for breast cancer documented in this encounter Results * Mammo Screening Cad and Wayne Bilateral (01/26/2020 11:39 AM EDT) Anatomical Region Laterality Modality Breast Bilateral Mammography Narrative 01/26/2020 11:55 AM EDT EXAMINATION: MAMMO SCREENING CAD AND [...] participate in the care of this patient. For questions regarding this report, please contact the number below. ? Kasey Delgado APRN IMG MAMMO ORD ERABLES documented in this encounter Visit Diagnoses Diagnosis History of breast cancer Personal history of malignant neoplasm of breast Encounter for screening mammogram for breast cancer documented in this encounter Care Teams Supervisor Accounts Receivable Relationship Specialty Start Date End Date Angie Alonzo MD [address] [place] [address] PCP - General Family Medicine 06/25/17 documented as of this encounter
--- OUTSIDE RECORDS SUMMARY | 2024-03-11 15:14 | XMS_ITS | Encounter Summary ---
Author Organization [facility] Address [facility] [place] [address] Care Team Providers Care Auto Parts Manager Name Role Phone Angie Alonzo MD Primary Care Provider [phone] Encounter Details Date Type Department Care Team (Late st Contact Info) Description 07/03/2022 Telephone Radiation Oncology at [address] [phone] Lynn Corley RN Social History Tobacco Use Types Packs/Day [...] encounter Miscellaneous Notes * Telephone Encounter - Lynn Corley RN - 07/03/2022 9:59 AM EST ----- Message from Nia Parry sent at 07/03/2022 8:34 AM EST ----- Regarding: Cold Symptoms- appt moved out Rigby was scheduled for a 6M breast FUV today and had coughing/cold symptoms so we bumped her out twoweeks. She is going to plan to covid test at the end of next week if she still has symptoms. documented in this encounter Plan of Treatment Not on file documented as of this encounter Visit Diagnoses Not on filedocumented in this encounter Care Teams Auto Parts Manager Relationship Specialty Start Date End Date Angie Alonzo MD [address] [place] [address] PCP - General Family Medicine 06/25/17 documented as of this encounter
--- OUTSIDE RECORDS SUMMARY | 2024-03-11 15:14 | XMS_ITS | Encounter Summary ---
Author Organization [facility] Address [facility] [place] [address] Care Team Providers Care Engineering Technical Writer Name Role Phone Angie Alonzo MD Primary Care Provider [phone] Encounter Details Date Type Department Care Team (Latest Contact Info) Description 01/26/2020 11:45 AM EDT - 01/26/2020 11:59 PM EDT Hospital Encounter Hematology and Oncology at [facility] [place] [address] Malignant neoplasm of upper-inner quadrant of left [...] blood-glucose meter (FREESTYLE) Kit 1 each by [facility] [place].(Non-Drug; Combo Route) route as needed for Other. [...] Date/Time Associated Diagnosis Comments HC VENIPUNCTURE STAT 01/26/2020 11:55 AM EDT Malignant neoplasm of upper-inner quadrant of left breast in female, estrogen receptor positive documented in this encounter Results * (ABNORMAL) Hepatic Function Panel (01/26/2020 11:55 AM EDT) Protein, Total 7.1 6.1 - 8.0 gm/dL [facility] Albumin 4.3 3.2 - 5.2 gm/dL [facility] Aspartate Aminotransferase 31(H) 0 - 30 unit/L [facility] Alanine Aminotransferase 31(H) 0 - 30 unit/L [facility] Alkaline Phosphatase 59 35 - 105 unit/L [facility] Bilirubin, Total 0.3 0.2 - 1.3 mg/dL [facility] Bilirubin, Direct 0.1 0.0 - 0.3 mg/dL [facility] Blood specimen (specimen) 01/26/2020 11:55 AM EDT 01/26/2020 12:06 PM EDT Narrative Resulting Agency Comment Spec In Lab Kalyan Damico MD CHEMISTRY ORDERABLES [facility] [place] [address] documented in this encounter Visit Diagnoses Diagnosis Malignant neoplasm of upper-inner quadrant of left breast in female, estrogen receptor positive documented in this encounter Care Teams Engineering Technical Writer Relationship Specialty Start Date End Date Angie Alonzo MD [address] [place] [address] PCP - General Family Medicine 06/25/17 documented as of this encounter
--- OUTSIDE RECORDS SUMMARY | 2024-03-11 15:14 | XMS_ITS | Encounter Summary ---
Author Organization [facility] Address [facility] [place] [address] Care Team Providers Care Plant Engineering Manager Name Role Phone Angie Alonzo MD Primary Care Provider [phone] Encounter Details Date Type Department Care Team (Latest Contact Info) Description 03/27/2023 Travel Social History Tobacco Use Types Packs/Day [...] on filedocumented in this encounter Care Teams Plant Engineering Manager Relationship Specialty Start Date End Date Angie Alonzo MD [facility] [address] [place] [address] PCP - General Family Medicine 06/25/17 documented as of this encounter
--- OUTSIDE RECORDS SUMMARY | 2024-03-11 15:14 | XMS_ITS | Encounter Summary ---
Author Organization Counts Include [facility] Address [facility] [place] [address] Care Team Providers Care Front Line Supervisor Name Role Phone Angie Alonzo MD Primary Care Provider [phone] Reason for Visit * Reason Comments Pre-op Exam Encounter Details Date Type Department Care Team (Late st Contact Info) Description 06/04/2023 2:30 PM EST Office Visit [place] [address] Rene Tubbs PA [facility] [place] [address] Posterior tibial tendon dysfunction (PTTD) of right [...] - - Weight 92.5 kg (204 lb) 06/04/2023 2:26 PM EST Height 167.6 cm (5' 6) 06/04/2023 2:26 PM EST Body Mass Index 32.93 06/04/2023 2:26 PM EST documented in this encounter Progress Notes * Rene Tubbs PA - 06/04/2023 2:30 PM EST Images from the original note were not included. PATIENT NAME: Abimbola Dumas AGE: 77 y.o. MR#: [id number] DATE OF VISIT: 06/04/2023 STAFF: Crystal Hess MD PREOP FOR: Right triple arthrodesis with possible Delphine procedure HISTORY OF PRESENT ILLNESS: Ms. Dumas is a 77 y.o. female who comes into clinic today for a preoperative history and physical for their upcoming Right triple arthrodesis with possible Delphine procedure scheduled on 06/27/23. She is accompanied by her daughter this visit. The patient has been going to physical therapy to work on her nonweightbearing status and has set up her house to be handicappedfriendly. Medications and Allergies were reviewed in eD-H [...] graft) Z95.1 Breast calcifications on mammogram R92.1 PAST SURGICAL HX: Past Surgical History: Procedure [...] at [facility] MAIN OR [facility] ENDOSCOPY W/VIDEO-ASST VEIN HARVEST, CABG N/A 03/05/2019 ENDOSCOPIC HARVEST VEIN(S) FOR CABG (WRVU 0.31) performed by Ryan Lynch MD at [facility] OR [facility] INTRAOP SENTINEL LYMPH ID W/DYE INJECTION Left [...] use: No Sexual activity: Not on file No data to display No data to display No data to display PHYSICAL EXAM: Ms. Dumas is a 77 y.o. female General appearance: in no acute distress, alert, cooperative Psych: cooperative with exam, appropriate Head: normocephalic, atraumatic EENT: EOMI grossly intact Neck: supple, trachea midline Cardiac: regular rate and rhythm by peripheral pulse Lungs: no extra work of breathing Musculoskeletal: Right foot and ankle Inspection: Midfoot arch: flat Hindfoot: valgus The skin over the foot and ankle is pink in color, warm and well perfused without calluses or lesions present. ROM: Dorsiflexion with knee extended: 5 degrees Dorsiflexion with knee flexed: 15 degrees Plantarflexion: 40 degrees Palpation: No TTP at the ankle joint line TTP at the Medial malleolus No TTP at the Lateral malleolus TTP at the subtalar joint No TTP at the achilles tendon No TTP at the achilles tendon insertion No TTP at the TN joint TTP at the CC joint No TTP over the cuneiform bones or cuboid No TTP over the tarsometatarsal joints No TTP over the metatarsals Strength: 5/5 and no pain with Ankle dorsiflexion: 5/5 and no pain with Ankle plantarflexion: 5/5 and no pain Ankle inversion: 5/5 and no pain or subluxation of the peroneals with ankle eversion with the toes pointed Sural Nerve: Sensation intact to light touch Saphenous Nerve: Sensation intact to light and gross touch Tibial Nerve: Sensation intact to light and gross touch Deep peroneal Nerve: Sensation intact to light and gross touch Superficial peroneal Nerve: Sensation intact to light and gross touch DIAGNOSTIC STUDIES: no new diagnostics performed today. ASSESSMENT: Right stage III posterior tibial tendon dysfunction PLAN: The patient has exhausted conservation measures including bracing, physical therapy, shoewearmodification, activity modification. The patient wishes to proceed with the above procedure and after full discussion of the risks and benefits of surgery, the patient signed an informed consent. Specific risks discussed include the risks on infection, bleeding, damage to adjacent structures, bloodclots, need for further procedures, neurovascular damage, swelling, hardware failure, nonunion, fracture. The patient's postoperative disposition will be home. The patient's postoperative mobility will be NWB 6 weeks. The patient's postoperative pain management plan will be Oxycodone The patient's postoperative DVT prophylaxis plan will be ASA 81 mg BID. The patient expressed agreement with and understanding of this plan of care. The patient understands to contact us if they have any other questions or concerns. The above documentation was completed using [employer] voice recognition software. Rene Tubbs PA-C, MPAS Department of Orthopaedics [facility] Pager [phone] documented in this encounter Plan of Treatment Not on file documented as of this encounter Visit Diagnoses Diagnosis Posterior tibial tendon dysfunction (PTTD) of right lower extremity documented in this encounter Care Teams Front Line Supervisor Relationship Specialty Start Date End Date Angie Alonzo MD [address] [place] [address] PCP - General Family Medicine 06/25/17 documented as of this encounter
--- OUTSIDE RECORDS SUMMARY | 2024-03-11 15:14 | XMS_ITS | Encounter Summary ---
Author Organization [facility] Address [facility] [place] [address] Care Team Providers Care Payment Specialist Name Role Phone Angie Alonzo MD Primary Care Provider Reason for Referral * Physical Therapy (Routine) - Closed Specialty Diagnoses / Procedures Referred By Mima rivera Referred To Contact Physical Therapy Diagnoses Right foot pain Crystal Hess MD [facility] [place] [address] Referral ID Status Reason Start Date Expiration Date V isits Requested Visits Authorized [id number] Closed Evaluate and Treat 03/27/2023 09/23/2023 20 20 Reason for Visit * Reason Comments Establish Care Rt foot pain * Consultation (Routine) - Closed Specialty Diagnoses / Procedures Referred By Mima rivera Referred To Contact Orthopaedics Diagnoses Flat feet Pain in right foot Unilateral primary osteoarthritis, left knee Carlos Encinas MD [address] [place] [address] [facility] Orthopa[facility]ics [address] [place] [phone] Referral ID Status Reason Start Date Expiration Date V isits Requested Visits Authorized [id number] Closed Consult, Test & Treat PCP Updated and/or Approved 02/11/2023 02/11/2024 6 6 Encounter Details Date Type Department Care Team (Late st Contact Info) Description 03/27/2023 9:30 AM EDT Office [place] [address] Crystal Hess MD [facility] [place] [address] Right foot pain; Posterior tibial tendon dysfunction (PTTD) of right [...] - Inhaled Oxygen Concentration - - Weight 95.3 kg (210 lb) 03/27/2023 9:35 AM EDT Height 170.2 cm (5' 7) 03/27/2023 9:35 AM EDT Body Mass Index 32.89 03/27/2023 9:35 AM EDT documented in this encounter Progress Notes * Crystal Hess MD - 03/27/2023 9:30 AM EDT Images from the original note were not included. PATIENT NAME: Abimbola Dumas AGE: 77 y.o. MR#: [id number] DATE OF VISIT: 03/27/2023 DATE OF INJURY/ONSET: Approximately May 2022 STAFF: Crystal Hess MD CHIEF COMPLAINT: Right ankle pain HISTORY OF PRESENT ILLNESS: Ms. Dumas is a 77 y.o. female who comes into clinic today for evaluationof her right ankle. In approximately May, she suddenly noticed worsening pain with in her ankle on the medial side. She went to her primary care provider who sent her for some physical therapy. While they did try to help her with improving her range of motion, ultimately they felt that she needed to see an orthopedic surgeon because her arch was collapsing. She tried use of supportive shoes,inserts and compression stockings and while her swelling did go down, she has continued to feel like the ankle is unstable, collapsing to the inside and is painful when she is more active. She especially enjoys swimming and it is hard for her to get in and out of the pool with the way her foot is. She saw Dr. Encinas who referred her to me for further evaluation and treatment. Medications and Allergies were reviewed in eD-H [...] VEIN(S) FOR CABG (WRVU 0.31) performed by Rayn Lynch MD at [facility] MAIN OR PRO INTRAOP SENTINEL LYMPH ID W/DYE INJECTION Left 07/04/2017 INTRAOPERATIVE ID (MAPPING) SENTINEL LYMPH NODE,INCLUDES INJECTION (WRVU 2.5) performed by Ashley Farooq MD at [facility] MAIN OR PRO MASTECTOMY PARTIAL Left 07/04/2017 MASTECTOMY PARTIAL (WRVU 10.13) performed by Ashley Farooq MD at [facility] MAIN OR FAMILY HX: Family History Problem [...] use: No Sexual activity: Not on file ROS: Pertinent items are noted in HPI. Constitutional: Denies fevers, chills, weight change HEENT: Denies headache, vision changes, neck pain, difficulty swallowing Endocrine: Denies malaise/lethargy, skin changes or temperature intolerance Respiratory: Denies shortness of breath, cough Cardiac: Denies chest pain, palpitations GI: denies abdominal pain, nausea, vomiting Skin: Denies new rashes or lesions Neuro: no numbness, tingling, or weakness Psychological: denies suicidal ideation Musculoskeletal: as above in HPI No data to display No data to display No data to display PHYSICAL EXAM: Ms. Dumas is a 77 y.o. female General appearance: in no acute distress, alert, cooperative Psych: cooperative with exam, appropriate Head: normocephalic, atraumatic EENT: EOMI grossly intact Neck: supple, trachea midline Cardiac: regular rate and rhythm by peripheral pulse Lungs: no extra work of breathing Musculoskeletal: Examination of bilateral feet when standing reveal the left foot has a neutral heel and is fairly low arch but the right foot has a planovalgus deformity. I did not ask her to do a single-leg heel rise. Further evaluation of the right foot reveals that this planovalgus deformity ispartially passively correctable. She has tenderness to palpation along the posterior tibial tendon and difficulty with inversion without recruiting through her tibialis anterior tendon. She has tenderness to palpation at the subtalar joint and in the subfibular region. Her gastrocsoleus complex is significantly tight. Sensation is intact to light touch throughout the foot. The foot is warm and wel l-perfused with palpable dorsalis pedis and posterior tibial pulses. DIAGNOSTIC STUDIES: Weightbearing right foot films were taken to evaluate for overall alignment. Personal review of AP, lateral and oblique views of the right foot show a lateral talar first metatarsal angle of approximately -20 with some subchondral sclerosis seen at the subtalar joint and talar head uncoverage of greater than 50%. ASSESSMENT: Stage III right posterior tibial tendon dysfunction PLAN: At this time, I spent some time talking with her and her daughter Marion who was present in clinic today. While we certainly could try bracing, given her current pathology, I do not think we could get her out of the brace without surgical intervention. Because of her stiffness, I think she would do better with a triple arthrodesis. I spoke with her and her daughter about the surgical procedure and the recovery. She is interested in proceeding with surgical intervention and therefore we will work on getting her on the schedule. I also placed physical therapy orders so that she can work with her local physical therapist and get stronger using a knee scooter. She will return for follow up for a formal preop. The patient expressed agreement with and understanding of this plan of care. The patient understands to contact us if they have any other questions or concerns. The above documentation was completed using [employer] voice recognition software. Crystal Hess MD Department of Orthopaedics [facility] Pager: [phone] documented in this encounter Plan of Treatment Scheduled Referrals Name Type Priority Associated Diagnoses Orde r Schedule Referral to Physical Therapy Outpatient Referral Routine Right foot pain Ordered: 03/27/2023 documented as of this encounter Visit Diagnoses Diagnosis Right foot pain Pain in limb Posterior tibial tendon dysfunction (PTTD) of right lower extremity documented in this encounter Care Teams Payment Specialist Relationship Specialty Start Date End Date Angie Alonzo MD [facility] [address] [place] [address] PCP - General Family Medicine 06/25/17 documented as of this encounter
--- OUTSIDE RECORDS SUMMARY | 2024-03-11 15:14 | XMS_ITS | Encounter Summary ---
Author Organization Counts Include [facility] Address [facility] [place] [address] Care Team Providers Care Multimedia Services Coordinator Name Role Phone Angie Alonzo MD Primary Care Provider [phone] Encounter Details Date Type Department Care Team (Late st Contact Info) Description 09/11/2019 Telephone [place] [phone] Nimco Mohan MD [facility] DR ENDOCRINOLOGY [place] [address] Social History Tobacco Use Types Packs/Day Years [...] on filedocumented in this encounter Care Teams Multimedia Services Coordinator Relationship Specialty Start Date End Date Angie Alonzo MD [facility] [address] [place] [address] PCP - General Family Medicine 06/25/17 documented as of this encounter
--- OUTSIDE RECORDS SUMMARY | 2024-03-11 15:14 | XMS_ITS | Encounter Summary ---
Author Organization [facility] Address [facility] [place] [address] Care Team Providers Care Contract Law Specialist Name Role Phone Angei Alonzo MD Primary Care Provider [phone] Encounter Details Date Type Department Care Team (Latest Contact Info) Description 08/24/2022 4:30 PM EST TH Visit (TeleHealth) Hematology [place] [address] Kalyan Damico MD [facility] HEMATOLOGY[facility] [place] [address] Malignant neoplasm of upper-inner quadrant of left [...] Progress Notes * Kalyan Damico MD - 08/24/2022 4:30 PM EST Heme-Onc Staff ?? Abimbola Case Alesia??is a 76 y.o.??female??with Stage I breast cancer,??who I spoke with today in??six monthfollowup. ?? Subjective:?? Ms. Dumas presented on screening mammography November [...] a left hip replacement on November 18, 2019.?She took aspirin at 162 mg daily for a month for VTE prophylaxis, and she was off tamoxifen for two weeks prior to and after the surgery. ?She had a right knee replacement on February 14, 2021. She again held the tamoxifen for two weeks before and after the surgery, and she took aspirin for 30 days for VTE prophylaxis. She has pain in the left knee, the knee isbeing injected at frequent intervals, and it was recently injected. She has pain and swelling in the right ankle, she is getting physical therapy for the ankle, and when the ankle is suitable for weight-bearing, she is planning on proceeding with replacement of the left knee. She also has pain in her right shoulder, but she has no other sites of joint or skeletal pain. She had a stomach bug within the last several months which required an ED visit. She denies any redness or warmth in her lower extremities, and she denies any vaginal bleeding or spotting. ?? Review of Systems She denies breast pain or a palpable breast mass, a cough, shortness of breath, chest pain, nausea,vomiting, diarrhea, constipation, headaches, double vision,??or??skin rashes. ??The remainder of her review of systems is negative. ?? The??most recent LFTs from February 20, 2022 included an albumin of 4.3, bili 0.4, alk phos 65, AST 19, and ALT 20. ?? The most recent??3-D mammograms??from February 20, 2022??showed??no suspicious microcalcifications, masses, or architectural distortion, with post-treatment changes on the left. ??The breasts were of scattered density. ?? Decision Making/Plan:??Abimbola is doing well and she has no evidence of breast cancer recurrence. ??Kristinewill complete a five year course of tamoxifen in about four weeks. She currently has her last bottle of pills, and she will stop when these pills run out. I warned her that she may experience vaginalbleeding three to six months after stopping tamoxifen, and she may note an increase in hot flashes for one to two months after stopping tamoxifen. I will see her next in followup in six months, I will coordinate that appointment with Kasey Brooks and with her next mammograms, and I will signoff at the time of that visit. ?? Patient verbally consents to this telephone visit and understands that this visit may be billed, similar to a clinic office visit. ?? I provided care to the patient today via telephone call. ?? Kalyan Damico MD documented in this encounter Plan of Treatment Not on file documented as of this encounter Visit Diagnoses Diagnosis Malignant neoplasm of upper-inner quadrant of left breast in female, estrogen receptor positive documented in this encounter Care Teams Contract Law Specialist Relationship Specialty Start Date End Date Angie Alonzo MD [address] [place] [address] PCP - General Family Medicine 06/25/17 documented as of this encounter
--- OUTSIDE RECORDS SUMMARY | 2024-03-11 15:14 | XMS_ITS | Encounter Summary ---
Author Organization [facility] Address [facility] [address] [address] Care Team Providers Care Magento Developer Name Role Phone Angie Alonzo MD Primary Care Provider Reason for Visit * Reason Comments Follow-up Encounter Details Date Type Department Care Team (Late st Contact Info) Description 03/05/2023 11:30 AM EDT Office Visit Hematology [place] [phone] Kalyan Damico MD [facility] HEMATOLOGY/[place] [address] Malignant neoplasm of upper-inner quadrant of left [...] Sign Reading Time Taken Comments Blood Pressure 131/76 03/05/2023 11:22 AM EDT Pulse 81 03/05/2023 11:22 AM EDT Temperature 36.5 ??C (97.7 ??F) 03/05/2023 1 1:22 AM EDT Respiratory Rate 18 03/05/2023 11:2 2 AM EDT Oxygen Saturation 96% 03/05/2023 11: 22 AM EDT Inhaled Oxygen Concentration - - Weight 94.1 kg (207 lb 7.3 oz) 03/05/20 23 11:22 AM EDT with shoes Height 169.2 cm (5' 6.61) 03/05/2023 1 1:22 AM EDT with shoes Body Mass Index 32.87 03/05/2023 11:22 AM EDT documented in this encounter Progress Notes * Kalyan Damico MD - 03/05/2023 11:30 AM EDT Subjective: Patient ID: Abimbola Dumas is a 77 y.o. female with Stage I breast cancer, seen for six month followup. HPIMs. Dumas presented on screening mammography November 06, 2016 with an area of increased density with surrounding architectural distortion in the medial, subareolar left breast. Diagnostic imaging on showed a 9 mm spiculated mass in [...] weeks prior to and after the surgery. She had a right knee replacement onFebruary 14, 2021. She again held the tamoxifen for two weeks before and after the surgery, and she took aspirin for 30 days for VTE prophylaxis. She completed a five year course of tamoxifen in late August or early August 2022. She has not had any vaginal spotting since stopping. She is warm when the weather is hot and muggy, and she has not otherwise had any hot flashes or sweats. She injured her right foot in May which has limited her mobility and put stress on her knees and on her lowerback. She currently has pain in her right shoulder, the right lower back, both knees, and her rightfoot. She had a cough last week which has resolved, and she had an episode of diarrhea and dehydration last winter which has not recurred. She exercises in the pool about 75 minutes a week, but her exercise is otherwise limited by pain. Review of Systems She denies breast pain or a palpable breast mass, shortness of breath, chest pain, nausea, vomiting, constipation, headaches, double vision, skin rashes, redness, pain, or swelling in her lower extremities, or any other sites of joint or skeletal pain. The remainder of her review of systems is negative. Objective: Physical Exam Vitals reviewed. Constitutional: Comments: Her weight is down 1.4 kg over the past year, and her BP is 131/76 with an oxygen saturation of 96%. HENT: Mouth/Throat: Mouth: Mucous membranes are moist. Pharynx: Oropharynx is clear. No oropharyngeal exudate. Neck: Comments: She has no supraclavicular adenopathy. Cardiovascular: Rate and Rhythm: Normal rate and regular rhythm. Heart sounds: Murmur heard. Comments: Holosystolic murmur Pulmonary: Breath sounds: Normal [...] no abdominal tenderness. There is no guarding. Comments: She has no right upper quadrant pain or hepatomegaly. Musculoskeletal: Comments: She has no pain on percussion over the spine, sternum, ribs, or hips. She no edema, erythema, warmth, or calf tenderness on either side. Lymphadenopathy: Cervical: No cervical adenopathy. Skin: General: Skin is warm and dry. Findings: No erythema. The most recent LFTs from February 20, 2022 showed an albumin of 4.3, bili 0.4, alk phos 65, AST 19, and ALT 20. Today's 3-D mammograms show no suspicious microcalcifications, masses, or architectural distortion,with post-surgical changes on the left. The breasts are of scattered density. Assessment and Plan: Ms. 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 She has no completed a five year course oftamoxifen, which I think is adequate, and she does not need a longer course of treatment. Any future vaginal spotting she develops should be worked up. I would recommend continuing screening mammography until she has a life expectancy under ten years, which should take place in another four years. She will now followup with Dr. Alonzo for her breast cancer screening, and our service may be reconsulted in the future if there are any concerns over a recurrence. Kalyan Damico MD brim flexer in Hematology-Oncology documented in this encounter Plan of Treatment Not on file documented as of this encounter Visit Diagnoses Diagnosis Malignant neoplasm of upper-inner quadrant of left breast in female, estrogen receptor positive documented in this encounter Care Teams Magento Developer Relationship Specialty Start Date End Date Angie Alonzo MD [facility] [address] [place] [address] PCP - General Family Medicine 06/25/17 documented as of this encounter
--- OUTSIDE RECORDS SUMMARY | 2024-03-11 15:14 | XMS_ITS | Encounter Summary ---
Author Organization [facility] Address [facility] [place] [address] Care Team Providers Care Candle Making Supervisor Name Role Phone Angie Alonzo MD Primary Care Provider [phone] Encounter Details Date Type Department Care Team (Late st Contact Info) Description 09/17/2019 Orders Only Hematology [place] [address] Kalyan Damico MD [facility] DR HEMATOLOGY/[place] [address] Malignant neoplasm of upper-inner quadrant of left [...] positive documented in this encounter Care Teams Candle Making Supervisor Relationship Specialty Start Date End Date Angie Alonzo MD [address] [place] [address] [address] [place] [address] PCP - General Family Medicine 06/25/17 documented as of this encounter
--- OUTSIDE RECORDS SUMMARY | 2024-03-11 15:14 | XMS_ITS | Encounter Summary ---
Author Organization [facility] Address [facility] [place] [address] Care Team Providers Care Lithographic Plate Maker Apprentice Name Role Phone Angie Alonzo MD Primary Care Provider [phone] Encounter Details Date Type Department Care Team (Late st Contact Info) Description 09/29/2021 Orders Only [place] [address] Kalyan Damico MD [facility] DR HEMATOLOGY/[place] [address] Malignant neoplasm of upper-inner quadrant of left [...] positive documented in this encounter Care Teams Lithographic Plate Maker Apprentice Relationship Specialty Start Date End Date Angie Alonzo MD [facility] [address] [place] [address] PCP - General Family Medicine 06/25/17 documented as of this encounter
--- OUTSIDE RECORDS SUMMARY | 2024-03-11 15:14 | XMS_ITS | Encounter Summary ---
Author Organization [facility] Address [facility] [place] [address] Care Team Providers Care Contact Center Associate Name Role Phone Angie Alonzo MD Primary Care Provider [phone] Reason for Visit * Reason Comments Medication Refill Encounter Details Date Type Department Care Team (Late st Contact Info) Description 09/28/2019 Refill Hematology [place] [address] Kalyan Damico MD [facility] DR HEMATOLOGY/[place] [address] Malignant neoplasm of upper-inner quadrant of left [...] encounter Miscellaneous Notes * Telephone Encounter - Luz Andino RN - 09/28/2019 8:15 AM EDT Received request via [employer] for refill of tamoxifen. Per review of medical record: started tamoxifen 09/16/17, to continue through 09/20 Script prepared and sent to provider for review, signature and escribe. documented in this encounter Plan of Treatment Not on file documented as of this encounter Visit Diagnoses Diagnosis Malignant neoplasm of upper-inner quadrant of left breast in female, estrogen receptor positive documented in this encounter Care Teams Contact Center Associate Relationship Specialty Start Date End Date Angie Alonzo MD [address] [facility] [address] [place] [address] PCP - General Family Medicine 06/25/17 documented as of this encounter
--- OUTSIDE RECORDS SUMMARY | 2024-03-11 15:14 | XMS_ITS | Encounter Summary ---
Author Organization [facility] Address [facility] [place] [address] Care Team Providers Care Electrical And Instrumentation Manager Name Role Phone Angie Alonzo MD Primary Care Provider [phone] Encounter Details Date Type Department Care Team (Late st Contact Info) Description 08/01/2021 9:30 AM EST Office Visit Radiation Oncology at [address] [phone] Edel Guzman, COURSE DEVELOPER [facility] [place] [address] Malignant neoplasm of upper-inner quadrant of left [...] Sign Reading Time Taken Comments Blood Pressure 153/66 08/01/2021 9:23 AM EST Pulse 73 08/01/2021 9:23 AM EST Temperature 37.2 ??C (98.9 ??F) 08/01/2021 9:23 AM ES T Respiratory Rate 18 08/01/2021 9:23 AM EST Oxygen Saturation 98% 08/01/2021 9:23 AM EST Inhaled Oxygen Concentration - - Weight 94.8 kg (209 lb) 08/01/2021 9:23 AM EST Height 167.5 cm (5' 5.95) 08/01/2021 9:23 AM ES T Body Mass Index 33.79 08/01/2021 9:23 AM EST documented in this encounter Progress Notes * Edel Guzman, COURSE DEVELOPER - 08/01/2021 9:30 AM ESTSummary: 75 year old F dx L breast for breast ca, IDC, low gr, ER+MD+, Her2 neg, s/p lumpectomy & SNB, pT1b pN0, stage I. Larson w/ med onc . s/p xrt 09/02/17 [facility] [place] [address] Phone: RADIATION ONCOLOGY FOLLOW UP NOTE Date of visit: 02/02/21 Patient Abimbola Dumas 1945 PCP: Angie Alonzo MD Radiation oncologist: Dr. Bethany Merrill Medical Oncologist: Dr. Kalyan Damico (follows with her tamoxifen) Surgeon: Dr Farooq s/p PM, oncoplasty and sentinel node biopsy 07/04/17 Followed yearly by surgical PROPERTY TECHNICIAN and mammo Chief Complaint: scheduled FUV for breast cancer, post radiation therapy Time since completed RT: 09/02/2017 Current treatment: Med Onc follows with tamoxifen management. Surgery follows with Mammo Screening Cad and Yamil Bilateral; scheduled for December 2021 ?? HPI: 71 y/o f who completed xrt (09/02/17) to L breast for breast ca, IDC, low gr, ER+MD+, Her2 neg, s/p lumpectomy & SNB, pT1b [...] ago (benign) Hysterectomy @ age 48 yrs. R knee replaced in January 2021 is coming along. BREAST CANCER NOTES 02/22/2019 Method of Cancer Detection abnormal mammogram of the left breast Menopausal Status at Diagnosis post-menopausal Date of Diagnostic Biopsy 05/28/2017 Local Surgery Lumpectomy done by Dr Farooq Axillary lymph node Management [place] nodes alone Total Number of Nodes Removed [...] cm Grade low Margin negative ER-estrogen receptor positive MD--progesterone receptor positive HER-2/FISH negative Endocrine Therapy Recommended for Hormone Sensitive Invasive Tumor yes First Adjuvant Endocrine Therapy Tamoxifen Dates of radiation 08/05/17 through 09/02/2017 Radiation [place] Protocol Radiation Boost yes Total Dosage of Radiation 52.56 Gy Surveillance 01/20/2019- Mammogram--no evidence of malignancy 01/24/21 - Mammo- ANNA ? Thyroid nodule Imaging: ??07/23/17 Dx'ic Interp CTsim: ??No met dz. ??2.4 cm hypodense nodule in R thyroid lobe forwhich US rec'd to assess if cyst/solid neoplasm/concern for malignancy. ??Advanced calcified atherosclerotic dz of coronary arteries, aorta &??upper abdominal visceral arteries as far as visualized. ?? 11/21/[address] Jeff (Endocrine) for thyroid needle; repeat FNA R thyroid nodule that day ?? Cytopath: ??Atypia of undetermined significance. ?? 01/14/18 B mmg: ??Benign. ?? 02/28/18 fu w/Dr. Jeff; US guided FNA R lower lobe thyroid nodule. ?? ThyGeNEXT: ??No Mutation. ??ThyrMIR: ??Neg. ??Conclusion: ??Nodule very highly likely benign. ?? Interim HPI: Per Dr Kalyan Damico, Medical oncology 01/24/21: Abimbola was referred to cardiology to work up a murmur prior to an anticipated left hip replacement. She had a positive nuclear stress test, and a cardiac cath showed triple vessel disease. She underwentcoronary artery bypass grafting on March 05, 2019, and she did well. She then underwent a left hip replacement on November 18, 2019. She was off tamoxifen for 13 days prior to and 14 days following herhip surgery, and she took aspirin at 162 mg daily for a month for VTE prophylaxis. Her left hip pain has resolved, but she now has more pain in both knees, now right greater than left. Her right kneeis unstable and she is meeting with her orthopedist later this week. Abimbola started on terbenafine for toenail fungus sometime over the past six months, and she is currently taking it once a week. She also has pain in her shoulders and she has cramping of her hands. She has no other sites of joint or skeletal pain. She denies any hot flashes or sweats, she denies any vaginal bleeding, and she has noerythema or warmth in either leg. She is unable to exercise due to knee pain. ?? R/T terbenafine: Terbenafine inhibits the activity of CYP2D6, which catalyzes the formation of the active metabolite of tamoxifen, and avoidance of terbenafine is recommended for patients taking tamoxifen. Dr Damico asked her to stop the terbenafine and informed her she may resume the terbenafinein 20 months (from 12/2020) once her five year course of tamoxifen has been completed. Problematic is the use of terbinafine with simultaneous treatment with tamoxifen. The administration of potent CYP2D6 inhibitors leads to a diminished efficacy of tamoxifen because one of its most important active [id number] not sufficiently available. Therefore, combination of tamoxifen and terbinafine should be avoided. https://pubmed.ncbi.nlm.nih.gov/77888643/ Medications 02/02/21 0941 Medication Sig Taking? tamoxifen (NOLVADEX) 20 mg Tablet Take 1 tablet by mouth daily. vitamin B complex (B COMPLEX ORAL) Take by mouth daily as needed. [id number]-Fish Oil (Fish Oil) 1,200 (144-216) mg Capsule [...] 2 tablets by mouth every 6 hours. Patient not taking: Reported on 02/02/2021 metoprolol tartrate (LOPRESSOR) 25 mg Tablet Take 1 tablet by mouth 2 times daily. senna-docusate (PERICOLACE) 8.6-50 mg Tablet Take 2 tablets by mouth daily. Patient not taking: Reported on 02/02/2021 METHYLCELLULOSE (CITRUCEL ORAL) Take by mouth daily as needed. pantoprazole (PROTONIX) 20 mg Tablet, Delayed Release (E.C.) Take 20 mg by mouth daily. atorvastatin (LIPITOR) 40 mg Tablet Take 40 mg by mouth daily. blood-glucose meter (FREESTYLE) Kit 1 each by [facility].(Non-Drug; Combo Route) route as needed for Other. aspirin 81 mg Tablet, Chewable Take 81 mg by mouth daily. CALCIUM CARB, CITRATE/VIT D3 (CALCIUM CARB AND CITRATE-VITD3 ORAL) Take by mouth. Allergies Allergen Reactions ??? Penicillins Past Medical History: Diagnosis Date ??? Antiplatelet or antithrombotic long-term use 81 mg aspirin ??? Arthritis ??? Breast cancer ??? Cancer breast cancer two years ago ??? CPAP (continuous positive airway pressure) dependence uses every night ??? Diabetes pre-diabetic. diet and exercise ??? Diabetes mellitus pre-DM ??? GERD (gastroesophageal reflux disease) ??? Heart valve disease ??? High blood pressure stable on meds ??? Hypertension ??? Peptic ulcer disease years ago ??? Status post radiation therapy breast cancer ??? Stroke 20 years ago had a stroke. no deficits ??? Vertigo a bit unsteady at times. does not use a cane Past Surgical History: Procedure Laterality Date ??? BREAST BIOPSY ??? BREAST LUMPECTOMY Left 07/2017 ??? BREAST SURGERY R lumpectomy, benign ??? BREAST SURGERY Right ? patient states benign surgery years ago ??? CHOLECYSTECTOMY ??? HYSTERECTOMY oophorectomy ??? IR CHEST TUBE PLACEMENT LEFT 04/10/2019 IR Chest Tube Placement Left 04/10/[address] [facility] INTERVENTIONL RAD ??? JOINT REPLACEMENT hip right ??? ORTHOPEDIC SURGERY R hip ??? OVARY REMOVAL ??? PRO ADJ TISS XFER TRUNK 10.1-30 Left 07/04/2017 ADJ.TISSUE TRANSFER, REARRANGEMENT, TRUNK,10.1 TO 30 SQ CM (WRVU 8.78) performed by Ashley Farooq MD at [facility] MAIN OR ??? PRO BX/REMV, LYMPH NODE, DEEP AXILL Left 07/04/2017 BIOPSY OR EXCISION OF LYMPH NODE(S), OPEN, DEEP AXILLARY NODE(S) (WRVU 6.43) performed by Ashley Farooq MD at [facility] MAIN OR ??? PRO CABG, ARTERIAL, SINGLE N/A 03/05/2019 @CABG, USING ARTERIAL GRAFT;SINGLE ARTERIAL GRAFT (WRVU 33.75) performed by Ryan Lynch MD at [facility] [place] MAIN OR ??? PRO CABG, ARTERY-VEIN, THREE N/A 03/05/2019 @CABG; 3 VENOUS GRAFTS & ARTERIAL GRAFT (WRVU 10.49) performed by Ryan Lynch MD at [facility] MAIN OR ??? PRO ENDOSCOPY W/VIDEO-ASST VEIN HARVEST, CABG N/A 03/05/2019 ENDOSCOPIC HARVEST VEIN(S) FOR CABG (WRVU 0.31) performed by Ryan Lynch MD at [facility] [place] MAIN OR ??? PRO INTRAOP SENTINEL LYMPH ID W/DYE INJECTION Left 07/04/2017 INTRAOPERATIVE ID (MAPPING) SENTINEL LYMPH NODE,INCLUDES INJECTION (WRVU 2.5) performed by Ashley Farooq MD at [facility] MAIN OR ??? PRO MASTECTOMY PARTIAL Left 07/04/2017 MASTECTOMY PARTIAL (WRVU 10.13) performed by Ashley Farooq MD at [facility] MAIN OR Family History Problem Relation Age of Onset ??? Lung Cancer Sister smoker ??? Breast Cancer Neg Hx ??? Ovarian Cancer Neg Hx Social History Tobacco Use ??? Smoking status: Never Smoker ??? Smokeless tobacco: Never Used Vaping Use ??? Vaping Use: Never used Substance Use Topics ??? Alcohol use: Never Comment: very occasional ??? Drug use: No Social Supports:??Pt's primary support was her . They have a daughter and a son who are alsoinvolved and supportive. ??Pt indicated her children should be contacted. Her in August 2019. Review of Symptoms: Patient concerns for today's visit: Skin changes at radiation /surgery site: There are no skin changes at the radiation and surgery site Lymphedema of breast and/or arm: No lymphedema of the breast or arms Fatigue: Denies fatigue Respiratory symptoms: No coughs colds congestion, wheezing or other respiratory problems. Cardiac symptoms: Denies heart pain, pressure, palpitations. With diuretic she has less edema in her lower extremities at this time. 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 No need antidepressant, spends time quilting, sewing clothing for her grandchildren and great grandchildren and is involved with family and friends. Alteration sexual function/body image:no problem at this time. Pain:Had total r knee replacement. Traveling to [place] for aprox 6 days to visit Son. Lifestyle/health: Weight/diet/appetite: She notes that she has gained a few pounds sleep: No problems function/transportation: No problems. Exercise/Bone health:2 days week -3 in pool in [facility] Exercise bicycle at home. Smoking:never Alcohol:rare Support/ social relationships:family, daughter and [...] confined to bed or chair Physical Examination: Constitutional: NAD HENT: normocephalic, sclera and conjunctiva anicteric and without injection, neck supple, no adenopathy Cardiovascular: Rate and Rhythm: Normal rate and regular rhythm. Heart sounds: Normal heart sounds. Systolic murmur noted. Pulmonary: Effort: Pulmonary effort is normal. Breath [...] content normal. Judgment: Judgment normal. Breast exam: History of bx r breast neg Breasts: Left breast with well-healed incision in upper inner quadrant of breast. 4 cm L axilary scar from SBN. Skin thickening of the left breast s/p radiation changes. Right breast appears normal. No suspicious masses, tenderness, dimpling, erythema, or other skin changes in either breast. No nipp le discharge or other nipple changes. No palpable axillary,cervical or clavicular lymph nodes bilaterally. No obvious discrete or dominant masses in either breast. New Imaging Reviewed this Visit: 01/24/21 Mammo [...] 75 y.o. presenting for follow up of L breast cancer. She received radiotherapy to the left breast from August 05 through September 02, 2017, 42.56 Gy in 16 fractions to the breast plus a 10 Gy boost in four fractions to the tumor bed. She started tamoxifen on September 16, 2017 and is followed by medical oncology for this q 6 months. She tolerates the tamoxifen well and notes she has aprox one year left to be taking this. Dr Damico had discontinued the terbinafine /lamasil oral antifungal she was on due to interaction with tamoxifen making this less effective. She may resume this post Tamoxifen completion. PCP and pt aware and understanding of rationale. Abimbola says only her great toes seem to be effected by fungus and that she is okay to wait for treatment. Medical Decision Making/Recommendations/Plan: # breast cancer: No [...] no sx with breast. Edel Guzman MSN, COURSE DEVELOPER, PROPERTY TECHNICIAN-C Nurse Practitioner Radiation Oncology documented in this encounter Plan of Treatment Not on file documented as of this encounter Visit Diagnoses Diagnosis Malignant neoplasm of upper-inner quadrant of left breast in female, estrogen receptor positive documented in this encounter Care Teams Electrical And Instrumentation Manager Relationship Specialty Start Date End Date Angie Alonzo MD [address] [place] [address] PCP - General Family Medicine 06/25/17 documented as of this encounter
--- OUTSIDE RECORDS SUMMARY | 2024-03-11 15:14 | XMS_ITS | Encounter Summary ---
Author Organization [facility] Address [facility] [place] [address] Care Team Providers Care Silver Plater Name Role Phone Angie Alonzo MD Primary Care Provider [phone] Encounter Details Date Type Department Care Team (Late st Contact Info) Description 02/13/2023 Ancillary Procedure Radiology Library at [facility] [place] [address] Angie Alonzo MD [address] [place] [address] [facility] [address] [place], [place] [id number] Social History Tobacco Use Types Packs/Day Years [...] Procedure Name Priority Date/Time Associated Diagnosis Comments FILM LIBRARY STORAGE ONLY MR LOWER EXTREMITY Routine 02/13/2023 12:00 AM EDT documented in this encounter Results * Film Library- Storage Only MR Lower Extremity (02/13/2023 12:00 AM EDT) Narrative [facility] - 02/19/2023 3:10 PM EDT This exam is auto-finalizing. It's purpose is for storage only. Angie Alonzo MD IMG FILM LIBRARY ORD ERABLES [place], [place] documented in this encounter Visit Diagnoses Not on filedocumented in this encounter Care Teams Silver Plater Relationship Specialty Start Date End Date Angie Alonzo MD [facility] [address] [facility] [address] [place] [address] PCP - General Family Medicine 06/25/17 documented as of this encounter
--- OUTSIDE RECORDS SUMMARY | 2024-03-11 15:14 | XMS_ITS | Encounter Summary ---
Author Organization [facility] Address [facility] [place] [address] Care Team Providers Care Bindery Machine Operator Name Role Phone Angie Alonzo MD Primary Care Provider [phone] Encounter Details Date Type Department Care Team (Latest Contact Info) Description 01/29/2020 9:00 AM EDT TH Visit (TeleHealth) Radiation Oncology at [address] [phone] Brittany Solomon APRN [facility] [place] [address] Malignant neoplasm of upper-inner quadrant of left [...] this encounter Patient Instructions * Patient Instructions* Brittany Solomon APRN - 01/29/2020 9:00 AM EDT She will return for followup in 6 months- phone visit documented in this encounter Progress Notes * Brittany Solomon APRN - 01/29/2020 9:00 AM EDT Patient ID: Abimbola Dumas is a 74 y.o. female completed xrt on 09/02/17 to a dose of 52.56 Gy for L breast ca, IDC, low gr, ER+IA+, Her2 neg, s/p lumpectomy & SNB, pT1b pN0, stage I. She was started on hormone therapy post completion of radiation therapy. Today's visit is a telephone visit due to the constraints of Covid-19 ?? HPI 71 y/o f who presented w/L breast abnlty on screening mmg. ?? 11/06/16 B screening mmg ([facility]): Questionable increased density medial subareolar L breast. R breast neg. ?? 12/04/16 US guided L breast bx @ 9 o'clock, 2 cm from nipple. ?? DH path: Scant benign breast & adipose tissue. ?? DH interp [facility] 04/09/17 US L breast, 11/09/16 dx'ic L mmg & L breast US & 12/04/16 US guided bx: 0.9 cm mass @ 9 o'clock, 3 cm from nipple. ?? 05/28/17 L breast US: Highly suspicious densely shadowing lesion L breast 9:00 radian 3 cm from nipple. ?? 05/28/17 L breast US guided vac assisted core bx. ?? Path: IDC, low gr, ER+IA+, Her2 FISH neg. ?? 06/19/[address] Farooq, w/exam showing no palpable breast mass/adenopathy. ?? 07/04/17 NLOC L breast lumpectomy w/+ specimen xray. Cavity clipped. Oncoplastic recon. SNB mapped to1 enlarged lymph node in L axilla. ?? Path: IDC, gr 1, 6.6 mm, +DCIS, RM neg, 1 sentinel lymph node (neg), pT1b pN0. ?? 07/17/17 fu w/Dr. Farooq; rtc 6 mos w/mmg. ?? 07/17/[address] Damico, w/rec for xrt to L breast followed by hormonal tx. ??Radiation therapy Treatment was given from 08/05/17 to 09/02/17. ??42.56 Gy in 16 fxs was given to L breast with 6 & 10 MV Xray external beam, followed by volume reduction & 10 Gy/4 fxs to lumpectomy bed with 6 & 10 MV Xray external beam, boosting lumpectomy bed to 52.56 Gy/20 fxs. Deep inspiration breath hold (DIBH) with 3D xrt used throughout treatment. She is on jackson, started after xrt completion. She continues on this. Treatment summary BREAST CANCER NOTES 02/22/2019 Method of Cancer Detection abnormal mammogram of the left breast Menopausal Status at Diagnosis post-menopausal Date of Diagnostic Biopsy 05/28/2017 Local Surgery Lumpectomy done by Dr Farooq Axillary lymph node Management [place] nodes alone Total Number of Nodes Removed [...] Grade low Margin negative ER-estrogen receptor positive IA--progesterone receptor positive HER-2/FISH negative Endocrine Therapy Recommended for Hormone Sensitive Invasive Tumor yes First Adjuvant Endocrine Therapy Tamoxifen Dates of radiation 08/05/17 through 09/02/2017 Radiation [facility] [place] Protocol Radiation Boost yes Total Dosage of Radiation 52.56 Gy Surveillance 01/20/2019- Mammogram--no evidence of malignancy Thyroid nodule Imagin07/23/17 Dx'ic Interp CTsim: No met dz. 2.4 cm hypodense nodule in R thyroid lobe for whichUS rec'd to assess if cyst/solid neoplasm/concern for malignancy. Advanced calcified atherosclerotic dz of coronary arteries, aorta & upper abdominal visceral arteries as far as visualized. ?? 11/21/[address] Jeff (Endocrine) for thyroid needle; repeat FNA R thyroid nodule that day ?? Cytopath: Atypia of undetermined significance. ?? 01/14/18 B mmg: Benign. ?? 02/28/18 fu w/Dr. Jeff; US guided FNA R lower lobe thyroid nodule. ?? ThyGeNEXT: No Mutation. ThyrMIR: Neg. Conclusion: Nodule very highly likely benign. ?? Patient Active Problem List Diagnosis Code ??? Malignant neoplasm of upper-inner quadrant of left breast in female, estrogen receptor [id number], Z17.0 ??? CAD (coronary artery disease) I25.10 ??? S/P CABG (coronary artery bypass graft) Z95.1 Past Surgical History: Procedure Laterality Date ??? BREAST BIOPSY ??? BREAST LUMPECTOMY Left 07/2017 ??? BREAST SURGERY R lumpectomy, benign ??? BREAST SURGERY Right ? patient states benign surgery years ago ??? CHOLECYSTECTOMY ??? HYSTERECTOMY oophorectomy ??? IR CHEST TUBE PLACEMENT LEFT 04/10/2019 IR Chest Tube Placement Left 04/10/2019 Adis Oliveira MD [facility] INTERVENTIONL RAD ??? JOINT REPLACEMENT hip right ??? ORTHOPEDIC SURGERY R hip ??? OVARY REMOVAL ??? PRO ADJ TISS XFER TRUNK 10.1-30 Left 07/04/2017 ADJ.TISSUE TRANSFER, REARRANGEMENT, TRUNK,10.1 TO 30 SQ CM (WRVU 8.78) performed by Ashley Farooq MD at [facility] MAIN OR ??? PRO BX/REMV, LYMPH NODE, DEEP AXILL Left 07/04/2017 BIOPSY OR EXCISION OF LYMPH NODE(S), OPEN, DEEP AXILLARY NODE(S) (WRVU 6.43) performed by Ashley Farooq MD at [facility] MAIN OR ??? PRO CABG, ARTERIAL, SINGLE N/A 03/05/2019 @CABG, USING ARTERIAL GRAFT;SINGLE ARTERIAL GRAFT (WRVU 33.75) performed by Ryan Lynch MD at [facility] MAIN OR ??? PRO CABG, ARTERY-VEIN, THREE N/A 03/05/2019 @CABG; 3 VENOUS GRAFTS & ARTERIAL GRAFT (WRVU 10.49) performed by Ryan Lynch MD at [facility] MAIN OR ??? PRO ENDOSCOPY W/VIDEO-ASST VEIN HARVEST, CABG N/A 03/05/2019 ENDOSCOPIC HARVEST VEIN(S) FOR CABG (WRVU 0.31) performed by Ryan Lynch MD at [facility] MAIN OR ??? PRO INTRAOP SENTINEL LYMPH ID W/DYE INJECTION Left 07/04/2017 INTRAOPERATIVE ID (MAPPING) SENTINEL LYMPH NODE,INCLUDES INJECTION (WRVU 2.5) performed by Ashley Farooq MD at [facility] MAIN OR ??? PRO MASTECTOMY PARTIAL Left 07/04/2017 MASTECTOMY PARTIAL (WRVU 10.13) performed by Ashley Farooq MD at [facility] MAIN OR Review and update of social history Social Supports: Pt's primary support is her . They have a daughter and a son who are also involved and supportive. Pt indicated her children should be contacted first and her has somememory issues and would not fully understand the information/situation. ?? Living Situation/Daily Activities/Transportation: Pt manages her daily chores and activities. Pt drives herself. ?? 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 Her in Aug 2018 from his dementia. She has Medicare and a secondary insurance. ?? Advance Directives: Pt has completed her advance directive but she wants to make changes. ?? Utilization of Community Resources: None at this time. ?? Adjustment to Illness/Mental Health Issues: Pt indicated she is coping generally well. She is anxious to complete cardiac testing so that she can get her knee surgery. She has support from her family. She enjoys quilting, reading and knitting. Interim History: Ms Dumas reports that she had a hip replacement done in october of this year. She is recovering well from this. Her knee is painful on that side as well. She has been doing PT for her hip and they have given her some exercises to help strengthen the knee. She will be seeing the surgeon soon and discuss whether or not she will need surgery on her knee as well. She was seen by the surgeon and Dr Damico 3 days ago. She had her mammogram done and she has no new issues. She is tolerating the tamoxifen without any problems. Time from completion of treatment 16 months Problems at primary site (breast) No issues Metastatic symptoms: none Pain None Breast tenderness None Skin changes breast None Lymphedema none Persistent cough none Persistent headaches None ROM restriction Has arthritis arms hard to lift --no difference R versus left Functional status Tires more easily -- had alzheimer--he at end of Aug She continues tolive in her own home doing her ADLs Smoking none Activity/exercise She has been doing PT for her hip replacement Hormone therapy side effects None [facility] Has emergency alert system due to fall in 2018 and fx left wrist . 01/20/2019- mammogram--no evidence of malignancy December 2019 mammogram- no evidence of malignancy Assessment and Plan: Abimbola Dumas is a 74 y.o.. female completed xrt on 09/02/17 to a dose of 52.56 Gy for L breast ca, IDC,low gr, ER+IA+, Her2 neg, s/p lumpectomy & SNB, pT1b pN0, stage I. She was started on hormone therapy post completion of radiation therapy and tolerating the hormone therapy. She has no late effects from treatment of her breast cancer. She will return in 6 months for followup. Next mammogram in one year. Patient verbally consents to this telephone visit and understands that this visit may be billed, similar to a clinic office visit. I provided care to the patient today via telephone call. The total time associated with this visit was 17 minutes. documented in this encounter Plan of Treatment Not on file documented as of this encounter Visit Diagnoses Diagnosis Malignant neoplasm of upper-inner quadrant of left breast in female, estrogen receptor positive documented in this encounter Care Teams Bindery Machine Operator Relationship Specialty Start Date End Date Angie Alonzo MD [address] [place] [address] PCP - General Family Medicine 06/25/17 documented as of this encounter
--- OUTSIDE RECORDS SUMMARY | 2024-03-11 15:14 | XMS_ITS | Encounter Summary ---
Author Organization [facility] Address [facility] [place] [address] Care Team Providers Care Information Technology Program Manager Name Role Phone Angie Alonzo MD Primary Care Provider [phone] Encounter Details Date Type Department Care Team (Latest Contact Info) Description 03/05/2023 9:11 AM EDT - 03/05/2023 11:59 PM EDT Hospital Encounter Mammography/[place] [id number] Kasey Delgado APRN [facility] [place] [address] Malignant neoplasm of upper-inner quadrant of left [...] End Date MULTIVITAMIN ORAL 1 tablet. 09/01/2012 [place]-3 Fatty Acids 100 mg Tablet, Chewable daily. 03/28/2022 b complex vitamins Tablet 1 tablet. 03/28/2022 azelastine (ASTELIN) 137 mcg (0.1 %) Aerosol, [place] SPRAY 1 SPRAY INTO BOTH NOSTRILS ONCE [...] MAMMO SCREENING CAD AND WAYNE BILATERAL Routine 03/05/2023 9:56 AM EDT Malignant neoplasm of upper-inner quadrant of left breast in female, estrogen receptor positive Breast cancer screening by mammogram documented in this encounter Results * Mammo Screening Cad and Wayne Bilateral (03/05/2023 9:56 AM EDT) Anatomical Region [...] who have questions please contact the health manager respiratory care that requested your imaging first. ? Electronically signed by: Billie Parker MD, [facility] ([phone]), at 03/05/2023 10:10 AM Narrative 03/05/2023 10:10 [...] mammogram documented in this encounter Care Teams Information Technology Program Manager Relationship Specialty Start Date End Date Angie Alonzo MD [address] [facility] [address] [place] [address] PCP - General Family Medicine 06/25/17 documented as of this encounter
--- OUTSIDE RECORDS SUMMARY | 2024-03-11 15:14 | XMS_ITS | Encounter Summary ---
Author Organization [facility] Address [facility] [place] [address] Care Team Providers Care Borderer Name Role Phone Angie Alonzo MD Primary Care Provider [phone] Encounter Details Date Type Department Care Team (Latest Contact Info) Description 07/17/2022 Travel Social History Tobacco Use Types Packs/Day [...] on filedocumented in this encounter Care Teams Borderer Relationship Specialty Start Date End Date Angie Alonzo MD [facility] [address] [place] [address] PCP - General Family Medicine 06/25/17 documented as of this encounter
--- OUTSIDE RECORDS SUMMARY | 2024-03-11 15:14 | XMS_ITS | Encounter Summary ---
Author Organization [facility] Address [facility] [place] [address] Care Team Providers Care Creosoting Engineer Name Role Phone Angie Alonzo MD Primary Care Provider [phone] Encounter Details Date Type Department Care Team (Late st Contact Info) Description 07/17/2022 1:45 PM EST Office Visit Radiation Oncology at [address] [phone] Edel Guzman, DRAFT ROLLER PICKER [facility] [place] [address] Malignant neoplasm of upper-inner quadrant of left [...] Sign Reading Time Taken Comments Blood Pressure 148/66 07/17/2022 1:53 PM EST Pulse 89 07/17/2022 1:53 PM EST Temperature 36.8 ??C (98.2 ??F) 07/17/2022 1:53 PM ES T Respiratory Rate 18 07/17/2022 1:53 PM EST Oxygen Saturation 97% 07/17/2022 1:53 PM EST Inhaled Oxygen Concentration - - Weight 95.6 kg (210 lb 12.8 oz) 07/17/2022 1:53 PM EST Height 169.4 cm (5' 6.69) 07/17/2022 1:53 PM ES T Body Mass Index 33.32 07/17/2022 1:53 PM EST documented in this encounter Progress Notes * Edel Guzman, DRAFT ROLLER PICKER - 07/17/2022 1:45 PM ESTSummary: 76 year old female FUV for breast cancer, post radiation therapy 2017 [facility] RADIATION ONCOLOGY [place] [phone] Phone: RADIATION ONCOLOGY FOLLOW UP NOTE Date of visit: 02/02/21 Patient Abimbola Dumas 1945 PCP: Agnie Alonzo MD Radiation oncologist: Dr. Bethany Merrill Medical Oncologist: Dr. Kalyan Damico (follows with her tamoxifen) Surgeon: Dr Farooq s/p PM, oncoplasty and sentinel node biopsy 07/04/17 Followed yearly by surgical TRANSPORTATION ATTENDANT and mammo Chief Complaint: scheduled FUV for breast cancer, post radiation therapy Time since completed RT: 09/02/2017 Current treatment: Med Onc follows with tamoxifen management. Surgery follows with Mammo Screening Cad and Yamil Bilateral; scheduled for December 2021 ?? HPI: 71 y/o f who completed xrt (09/02/17) to L breast for breast ca, IDC, low gr, ER+MI+, Her2 neg, s/p lumpectomy & SNB, pT1b [...] by Dr Farooq Axillary lymph node Management [place] nodes alone Total Number of Nodes Removed [...] Grade low Margin negative ER-estrogen receptor positive MI--progesterone receptor positive HER-2/FISH negative Endocrine Therapy Recommended for Hormone Sensitive Invasive Tumor yes First Adjuvant Endocrine Therapy Tamoxifen Dates of radiation 08/05/17 through 09/02/2017 Radiation [facility]endez [place] Protocol Radiation Boost yes Total Dosage of [...] ?? 01/14/18 B mmg: ??Benign. ?? 02/28/18 clarence w/Dr. Jeff; US guided FNA R lower [...] because one of its most important active [id number] not sufficiently available. Therefore, combination of tamoxifen and terbinafine should be avoided. https://pubmed.ncbi.nlm.nih.gov/24642814/ Medications 02/20/22 1059 Medication Sig Taking? tamoxifen (NOLVADEX) 20 mg Tablet Take 1 tablet by mouth daily. vitamin B complex (B COMPLEX ORAL) Take by mouth daily as needed. Uaklh-[id number]-SVW-EPA-Fish Oil 1,200 (144-216) mg Capsule Take by [...] blood-glucose meter (FREESTYLE) Kit 1 each by [facility]Non-Drug; Combo Route) route as needed for Other. aspirin 81 mg Tablet, Chewable Take 81 mg by mouth daily. CALCIUM CARB, CITRATE/VIT D3 (CALCIUM CARB AND CITRATE-VITD3 ORAL) Take by mouth 2 times daily. Allergies Allergen Reactions ??? Penicillins Past Medical [...] Tube Placement Left 04/10/2019 Adis Oliveira MD [facility] INTERVENTIONL RAD ??? JOINT REPLACEMENT hip right ??? ORTHOPEDIC SURGERY R hip ??? OVARY REMOVAL ??? PRO ADJACENT TISSUE TRANSFER/REARRANGE TRUNK 10.1-30.0CM Left 07/04/2017 ADJ.TISSUE TRANSFER, REARRANGEMENT, TRUNK,10.1 TO 30 SQ CM (WRVU 8.78) performed by Ashley Farooq MD at [facility] MAIN OR ??? PRO BX/REMV, LYMPH NODE, DEEP AXILL Left 07/04/2017 BIOPSY OR EXCISION OF LYMPH NODE(S), OPEN, DEEP AXILLARY NODE(S) (WRVU 6.43) performed by Ashley Farooq MD at [facility] MAIN OR ??? PRO CABG, ARTERIAL, SINGLE N/A 03/05/2019 @CABG, USING ARTERIAL GRAFT;SINGLE ARTERIAL GRAFT (WRVU 33.75) performed by Ryan Lynch MD at [facility] OR ??? PRO CABG, ARTERY-VEIN, THREE N/A 03/05/2019 @CABG; 3 VENOUS GRAFTS & ARTERIAL GRAFT (WRVU 10.49) performed by Ryan Lynch MD at [facility] MAIN OR ??? PRO ENDOSCOPY W/VIDEO-ASST VEIN HARVEST, CABG N/A 03/05/2019 ENDOSCOPIC HARVEST VEIN(S) FOR CABG (WRVU 0.31) performed by Ryan Lynch MD at [facility] MAIN OR ??? PRO INTRAOP SENTINEL LYMPH ID W/DYE INJECTION Left 07/04/2017 INTRAOPERATIVE ID (MAPPING) SENTINEL LYMPH NODE,INCLUDES INJECTION (WRVU 2.5) performed by Ashley Farooq MD at [facility] MAIN OR ??? PRO MASTECTOMY PARTIAL Left 07/04/2017 MASTECTOMY PARTIAL (WRVU 10.13) performed by Ashley Farooq MD at [facility] OR Family History Problem Relation Age of Onset ??? Lung Cancer Sister smoker ??? Breast Cancer Neg Hx ??? Ovarian Cancer Neg Hx Social History Tobacco Use ??? Smoking status: Never ??? Smokeless tobacco: Never Vaping Use ??? Vaping Use: Never used [...] Pain:Had total r knee replacement. Traveling to [place] for aprox 6 days to visit Son. Lifestyle/health: Weight/diet/appetite: no issues sleep: No problems Function/transportation: No problems. She does drive herself around during day. During Covid periodof time, her daughter got all errands, meds and groceries taken care of for her. Exercise/Bone health:2 days week -3 in pool in [facility] Exercise bicycle at home. Smoking:never Alcohol:rare Support/ social relationships:family, daughter and granddaughter nearby Regular visits with PCP/immunizations/screenings:2x year with primary care, did have immunization for Covid in August and August of last year. Now total of 5. Financial concerns: doing ok Advanced directives: Not [...] and without injection, neck supple, no adenopathy of cervical, axillary or clavicular areas. Cardiovascular: Rate and Rhythm: Normal rate and [...] either breast. New Imaging Reviewed this Visit: 02/20/22 MMG FINDINGS: Breast density: There are scattered areas of fibroglandular density. ?? There are no suspicious microcalcifications, masses, or areas of distortion. There are post treatment changes in the left breast. ?? CONCLUSION: No mammographic evidence of malignancy. ?? RECOMMENDATION: Routine annual screening. ?? BI-RADS CATEGORY 2: BENIGN FINDINGS ?? Assessment: 76 y.o. presenting for follow up of L breast cancer. She received radiotherapy to the left breast from August 05 through September 02, 2017, 42.56 Gy in 16 fractions to the breast plus a 10 Gy boost in four fractions to the tumor bed. She started tamoxifen on September 16, 2017 and is followed by medical oncology. She tolerates the tamoxifen well and notes she has just 2-[address] Damico had discontinued the terbinafine /lamasil oral antifungal she was on due to interactionwith tamoxifen making this less effective. She may resume this post Tamoxifen completion. PCP and pt aware and understanding of rationale. Abimbola says only her great toes seem to be effected by fungus and that she was okay to wait for treatment. Medical Decision [...] symptoms in regards to the radiation therapy/breast cancer. # resources provided: No additional resources at this time # referrals done: No referrals needed Next visit:Pt prefers at this time to follow with her PCP, her med oncologist until completion of tamoxifen soon and she still follows through the surgical office where she has her mammo ordered. Sheis welcome to call radiation oncology if she has questions or concerns. Edel Guzman MSN, DRAFT ROLLER PICKER, TRANSPORTATION ATTENDANT-C Nurse Practitioner Radiation Oncology documented in this encounter Plan of Treatment Not on file documented as of this encounter Visit Diagnoses Diagnosis Malignant neoplasm of upper-inner quadrant of left breast in female, estrogen receptor positive documented in this encounter Care Teams Creosoting Engineer Relationship Specialty Start Date End Date Angie Alonzo MD [address] [place] [address] PCP - General Family Medicine 06/25/17 documented as of this encounter
--- OUTSIDE RECORDS SUMMARY | 2024-03-11 15:14 | XMS_ITS | Encounter Summary ---
Author Organization [facility] Address [facility] [place] [address] Care Team Providers Care Barrel Filler Name Role Phone Angie Alonzo MD Primary Care Provider Encounter Details Date Type Department Care Team (Latest Contact Info) Description 07/15/2020 12:00 PM EST TH Visit (TeleHealth) Radiation Oncology at [address] [address] Brittany Solomon APRN [facility] [address] [place] [address] Malignant neoplasm of upper-inner quadrant of left [...] * Patient Instructions* Brittany Solomon APRN - 07/15/2020 12:00 PM EST She will return in 6 months for followup. Should be scheduled after her mammogram in December. documented in this encounter Progress Notes * Brittany Solomon APRN - 07/15/2020 12:00 PM EST Patient ID: Abimbola Dumas is a 74 y.o. female completed xrt on 09/02/17 to a dose of 52.56 Gy for L breast ca, IDC, low gr, ER+FL+, Her2 neg, s/p lumpectomy & SNB, pT1b pN0, stage I. She was started on hormone therapy post completion of radiation therapy. Today's visit is a telephone visit due to the constraints of Covid-19 ?? HPI 71 y/o f who presented w/L breast abnlty on screening mmg. ?? 11/06/16 B screening mmg ([facility]): Questionable increased density medial subareolar L breast. [...] core bx. ?? Path: IDC, low gr, ER+FL+, Her2 FISH neg. ?? 06/19/17 eval by [...] with 3D xrt used throughout treatment. She continues on tamoxifen. Treatment summary BREAST CANCER NOTES 02/22/2019 Method of Cancer Detection abnormal mammogram of the left breast Menopausal Status at Diagnosis post-menopausal Date of Diagnostic Biopsy 05/28/2017 Local Surgery Lumpectomy done by Dr Farooq Axillary lymph node Management [place] nodes alone Total Number of Nodes Removed [...] Grade low Margin negative ER-estrogen receptor positive FL--progesterone receptor positive HER-2/FISH negative Endocrine Therapy Recommended for Hormone Sensitive Invasive Tumor yes First Adjuvant Endocrine Therapy Tamoxifen Dates of radiation 08/05/17 through 09/02/2017 Radiation Mendez Speer Protocol Radiation Boost yes Total Dosage of [...] ?? 01/14/18 B mmg: Benign. ?? 02/28/18 clarence w/Dr. Jeff; US guided FNA R lower lobe thyroid nodule. ?? ThyGeNEXT: No Mutation. ThyrMIR: Neg. Conclusion: Nodule very highly likely benign. ?? Patient Active Problem List Diagnosis Code ??? Malignant neoplasm of upper-inner quadrant of left breast in female, estrogen receptor pawkajhhM44.212, Z17.0 ??? CAD (coronary artery disease) I25.10 [...] Tube Placement Left 04/10/2019 Adis Oliveira MD [facility] INTERVENTIONL RAD ??? JOINT REPLACEMENT hip right ??? ORTHOPEDIC SURGERY R hip ??? OVARY REMOVAL ??? PRO ADJ TISS XFER TRUNK 10.1-30 Left 07/04/2017 ADJ.TISSUE TRANSFER, REARRANGEMENT, TRUNK,10.1 TO 30 SQ CM (WRVU 8.78) performed by Ashley Farooq MD at [facility] MAIN OR ??? PRO BX/REMV, LYMPH NODE, DEEP AXILL Left 07/04/2017 BIOPSY OR EXCISION OF LYMPH NODE(S), OPEN, DEEP AXILLARY NODE(S) (WRVU 6.43) performed by Ashley Farooq MD at [facility] MAIN OR ??? PRO CABG, ARTERIAL, SINGLE N/A 03/05/2019 @CABG, USING ARTERIAL GRAFT;SINGLE ARTERIAL GRAFT (WRVU 33.75) performed by Ryan Lynch MD at [facility] MAIN OR ??? PRO CABG, ARTERY-VEIN, THREE N/A 03/05/2019 @CABG; 3 VENOUS GRAFTS & ARTERIAL GRAFT (WRVU 10.49) performed by Ryan Lynch MD at [facility] MAIN OR ??? PRO ENDOSCOPY W/VIDEO-ASST VEIN HARVEST, CABG N/A 03/05/2019 ENDOSCOPIC HARVEST VEIN(S) FOR CABG (WRVU 0.31) performed by Ryan Lynch MD at [facility] MAIN OR ??? PRO INTRAOP SENTINEL LYMPH ID W/DYE INJECTION Left 07/04/2017 INTRAOPERATIVE ID (MAPPING) SENTINEL LYMPH NODE,INCLUDES INJECTION (WRVU 2.5) performed by Ashley Farooq MD at [facility] MAIN OR ??? PRO MASTECTOMY PARTIAL Left 07/04/2017 MASTECTOMY PARTIAL (WRVU 10.13) performed by Ashley Farooq MD at [facility] MAIN OR Review and update of social history Social Supports: Pt's primary support was her . They have a daughter and a son who are also involved and supportive. Pt indicated her children should be contacted. Her in August2019. ?? Living Situation/Daily Activities/Transportation: Pt manages her [...] indicated she is coping generally well. She has support from her family. She enjoys quilting, reading and knitting. Interim History: Ms Dumas reports that she had a hip replacement done in october of 2019. She recovered well from this. Her knee is painful on that side as well. She has had one injection which has worked well until recently- it is starting to be very painful again. She will likely need a TKA at some point. She is also due for a followup with Dr Damico. Her next mammogram is in early summer at . She is tolerating the tamoxifen without any problems. She was seen in endocrinology clinic in March and it was felt that the thyroid nodule was smaller. They will continue to follow her annually. Time from completion of treatment 22 months Problems at primary site (breast) No issues Metastatic symptoms: none Pain None Breast tenderness None Skin changes breast None Lymphedema none Persistent cough none Persistent headaches None ROM restriction Has arthritis arms hard to lift --no difference R versus left Functional status Tires more easily -- had alzheimer--he at end of Aug She continues to live in her own home doing her ADLs Smoking none Activity/exercise She is active around the house. Hormone therapy side effects [place] [facility] [place] emergency alert system due to fall in 2017 and fx left wrist . 01/20/2019- mammogram--no evidence of malignancy December 2019 mammogram- no evidence of malignancy Assessment and Plan: Abimbola Dumas is a 74 y.o.. female completed xrt on 09/02/17 to a dose of 52.56 Gy for L breast ca, IDC,low gr, ER+FL+, Her2 neg, s/p lumpectomy & SNB, pT1b pN0, stage I. She was started on hormone therapy post completion of radiation therapy and tolerating the hormone therapy. She has no late effects from treatment of her breast cancer. She will return in 6 months for followup. Next mammogram in 6 months. We will see her after her mammogram is done. In terms of her thyroid nodule she will continue to see endocrinology. Patient verbally consents to this telephone visit and understands that this visit may be billed, similar to a clinic office visit. I provided care to the patient today via telephone call. The total time associated with this visit was 14 minutes. documented in this encounter Plan of Treatment Not on file documented as of this encounter Visit Diagnoses Diagnosis Malignant neoplasm of upper-inner quadrant of left breast in female, estrogen receptor positive documented in this encounter Care Teams Barrel Filler Relationship Specialty Start Date End Date Angie Alonzo MD [address] [place] [address] PCP - General Family Medicine 06/25/17 documented as of this encounter
--- OUTSIDE RECORDS SUMMARY | 2024-03-11 15:14 | XMS_ITS | Encounter Summary ---
Author Organization Counts Include [address] Address [facility] [address] Care Team Providers Care King Maker Name Role Phone Angie Alonzo MD Primary Care Provider [phone] Encounter Details Date Type Department Care Team (Latest Contact Info) Description 02/20/2022 8:32 AM EDT - 02/20/2022 11:59 PM EDT Hospital Encounter Mammography/[place] [id number] Kasey Delgado APRN [facility] [place] [address] Malignant neoplasm of upper-inner quadrant of left breast in female, estrogen receptor positive; Breast cancer screening by mammogram; Breast calcifications on mammogram Discharge Disposition: Home Social History Tobacco [...] blood-glucose meter (FREESTYLE) Kit 1 each by [employer].(Non-Drug; Combo Route) route as needed for Other. aspirin 81 mg Tablet, Chewable Take 81 mg by mouth daily. tamoxifen (NOLVADEX) 20 mg TabletIndications:Malig nant neoplasm of upper-inner quadrant of left breast in female, estrogen receptor positive Take 1 tablet by mouth daily. 90 tablet 1 02/20/2022 03/05/2023 Izdgy-4-HEH-EPA-Fish Oil 1,200 (144-216) mg Capsule Take by [...] MAMMO SCREENING CAD AND YAMIL BILATERAL Routine 02/20/2022 9:10 AM EDT Malignant neoplasm of upper-inner quadrant of left breast in female, estrogen receptor positive Breast cancer screening by mammogram Breast calcifications on mammogram documented in this encounter Results * Mammo Screening Cad and Yamil Bilateral (02/20/2022 9:10 AM EDT) Anatomical Region [...] who have questions please contact the health care transport nurse that requested your imaging first. ? Electronically signed by: Billie Parker MD, [facility] ([phone]), at 02/20/2022 9:19 AM Kasey Delgado BOX FABRICATOR IMG MAMMO ORD ERABLES documented in this encounter Visit Diagnoses Diagnosis Malignant neoplasm of upper-inner quadrant of left breast in female, estrogen receptor positive Breast cancer screening by mammogram Breast calcifications on mammogram Other (abnormal) findings on radiological examination of breast documented in this encounter Care Teams King Maker Relationship Specialty Start Date End Date Angie Alonzo MD [facility] [address] [place] [address] PCP - General Family Medicine 06/25/17 documented as of this encounter
--- OUTSIDE RECORDS SUMMARY | 2024-03-11 15:14 | XMS_ITS | Encounter Summary ---
Author Organization [facility] Address [facility] [place] [address] Care Team Providers Care Photocomposing Machine Operator Name Role Phone Angie Alonzo MD Primary Care Provider [phone] Encounter Details Date Type Department Care Team (Late st Contact Info) Description 01/28/2023 Ancillary Procedure Radiology Library at [facility] [place] [address] Angie Alonzo MD [address] [place] [address] [facility] [address] [place] [address] Social History Tobacco Use Types Packs/Day Years [...] Associated Diagnosis Comments FILM LIBRARY STORAGE ONLY DX FOOT Routine 01/28/2023 12:00 AM EDT documented in this encounter Results * Film Library- Storage Only DX Foot (01/28/2023 12:00 AM EDT) Narrative [facility] - 02/04/2023 9:05 PM EDT This exam is auto-finalizing. It's purpose is for storage only. Angie Alonzo MD IMG FILM LIBRARY ORD ERABLES [place], [place] documented in this encounter Visit Diagnoses Not on filedocumented in this encounter Care Teams Photocomposing Machine Operator Relationship Specialty Start Date End Date Angie Alonzo MD [facility] [address] [facility] [address] [place] [address] PCP - General Family Medicine 06/25/17 documented as of this encounter
--- OUTSIDE RECORDS SUMMARY | 2024-03-11 15:14 | XMS_ITS | Encounter Summary ---
Author Organization [facility] Address [facility] [place] [address] Care Team Providers Care Staff Genetic Counselor Name Role Phone Angie Alonzo MD Primary Care Provider [phone] Reason for Visit * Reason Comments Follow-up Encounter Details Date Type Department Care Team (Late st Contact Info) Description 01/24/2021 8:30 AM EDT Office Visit [place]ematology [place] [address] Kalyan Damico MD [facility] HEMATOLOGY/[place] [address] Farideh Laughlin MD [facility] HEMATOLOGY/[place] [address] Malignant neoplasm of upper-inner quadrant of left [...] Sign Reading Time Taken Comments Blood Pressure 110/63 01/24/2021 8:16 AM EDT Pulse 83 01/24/2021 8:16 AM EDT Temperature 35.8 ??C (96.4 ??F) 01/24/2021 8:16 AM ED T Respiratory Rate 17 01/24/2021 8:16 AM EDT Oxygen Saturation 96% 01/24/2021 8:16 AM EDT Inhaled Oxygen Concentration - - Weight 99.6 kg (219 lb 8 oz) 01/24/2021 8:16 AM EDT Height 167.6 cm (5' 6) 01/24/2021 8:16 AM EDT Body Mass Index 35.43 01/24/2021 8:16 AM EDT documented in this encounter Progress Notes * Kalyan Damico MD - 01/24/2021 8:30 AM EDT Subjective: Patient ID: Abimbola Dumas is a 75 y.o. female with Stage I breast cancer, [...] unable to exercise due to knee pain. Review of Systems She denies breast pain or a palpable breast mass, a cough, shortness of breath, chest pain, nausea,vomiting, diarrhea, constipation, headaches, double vision, or skin rashes. The remainder of her review of systems is negative. Objective: Physical Exam Vitals reviewed. Constitutional: Comments: Her weight is up 3.3 kg over the past year, and her BP is 110/63. HENT: Mouth/Throat: Mouth: Mucous membranes are moist. [...] Panel Result Value Ref Range Total Protein 6.7 6.1 - 8.0 gm/dL Albumin 4.0 3.2 - 5.2 gm/dL AST 20 0 - 30 unit/L ALT 19 0 - 30 unit/L Alk Phos 53 35 - 105 unit/L Total Bilirubin 0.4 0.2 - 1.3 mg/dL Bili, Direct 0.1 [...] fatty. Assessment and Plan: Ms. 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 She is tolerating tamoxifen well. I reminded her to stop the tamoxifen two weeks before and two weeks after replacement surgery of her knee, if it comes to that. Terbenafine inhibits the activity of CYP2D6, which catalyzes the formation of the active metabolite of tamoxifen, and avoidance of terbenafine is recommended for patients taking tamoxifen. I asked her to stop the terbenafine, I will let Dr. Alonzo know, and she may resume the terbenafine in 20 months once her five year course of tamoxifen has been completed. I will speak with her in six months by telehealth, and I will see her [id number] next in one year, in coordinationwith Kasey Gillette and with her mammograms. She knows to contact me in the interim if she has any concerns over her breast exam or over the tamoxifen. Kalyan Damico MD conciliator in Hematology-Oncology documented in this encounter Plan of Treatment Not on file documented as of this encounter Visit Diagnoses Diagnosis Malignant neoplasm of upper-inner quadrant of left breast in female, estrogen receptor positive documented in this encounter Care Teams Staff Genetic Counselor Relationship Specialty Start Date End Date Angie Alonzo MD [address] [facility] [address] [place] [address] PCP - General Family Medicine 06/25/17 documented as of this encounter
--- OUTSIDE RECORDS SUMMARY | 2024-03-11 15:14 | XMS_ITS | Encounter Summary ---
Author Organization [facility] Address [facility] [address] Care Team Providers Care Customer Service Driver Name Role Phone Angie Alonzo MD Primary Care Provider [phone] Encounter Details Date Type Department Care Team (Late st Contact Info) Description 02/20/2022 11:00 AM EDT Office Visit Hematology [place] [address] Kalyan Damico MD [facility] HEMATOLOGY/[place] [address] Malignant neoplasm of upper-inner quadrant of left [...] Sign Reading Time Taken Comments Blood Pressure 141/75 02/20/2022 10:42 AM EDT Pulse 80 02/20/2022 10:42 AM EDT Temperature 36.7 ??C (98.1 ??F) 02/20/2022 10:42 AM E DT Respiratory Rate 18 02/20/2022 10:42 AM EDT Oxygen Saturation 97% 02/20/2022 10:42 AM EDT Inhaled Oxygen Concentration - - Weight 95.5 kg (210 lb 9.6 oz) 02/20/2022 10:42 AM EDT Height 169.4 cm (5' 6.69) 02/20/2022 10:42 AM E DT Body Mass Index 33.29 02/20/2022 10:42 AM EDT documented in this encounter Progress Notes * Kalyan Damico MD - 02/20/2022 11:00 AM EDT Subjective: Patient ID: Abimbola Dumas is a 76 y.o. female with Stage I breast cancer, [...] for 30 days for VTE prophylaxis. Her right knee has done well, her range of motion is good and she has only slight pain in the knee. She has trouble with her left knee, and the left knee will be injected next month. She is not yet ready to have that knee replaced. She also has pain in her right ankle and in her right hand and wrist, but she has no other sites of joint or skeletal pain. She denies any vaginal bleeding or spotting, and she has no redness or warmth in her thighs or calfs. She has swelling in the right ankle. She swims for 50 minutes a day three days a week, and she rides an exercise bicycle. Review of Systems She denies breast pain or a palpable breast mass, a cough, shortness of breath, chest pain, nausea,vomiting, diarrhea, constipation, headaches, double vision, or skin rashes. The remainder of her review of systems is negative. Objective: Physical Exam Vitals reviewed. Constitutional: Comments: Her weight is up 0.7 kg over the past year, and her BP is 141/75. HENT: Mouth/Throat: Mouth: Mucous membranes are moist. [...] spine, sternum, ribs, or hips. She has 1+ edema in the right ankle without erythema, warmth, or calf tenderness. Lymphadenopathy: Cervical: No cervical adenopathy. Skin: General: Skin is warm and dry. Findings: No erythema. Recent Results (from the past 24 hour(s)) Hepatic Function Panel Result Value Ref Range Total Protein 7.0 6.1 - 8.0 g/dL Albumin 4.3 3.2 - 5.2 g/dL AST 19 0 - 30 unit/L ALT 20 0 - 30 unit/L Alk Phos 65 35 - 105 unit/L Total Bilirubin 0.4 [...] of scattered density. Assessment and Plan: Ms. 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 She is tolerating tamoxifen well. I reminded her to stop the tamoxifen two weeks before and two weeks after future joint replacement surgery, if it comes to that. I will speak with her in six months by telehealth. She will complete her five year course of tamoxifen in August of 2022. She knows to contact or Kasey in the interim if shehas any concerns over her breast exam or over the tamoxifen. Kalyan Damico MD counter waiter in Hematology-Oncology documented in this encounter Plan of Treatment Not on file documented as of this encounter Visit Diagnoses Diagnosis Malignant neoplasm of upper-inner quadrant of left breast in female, estrogen receptor positive documented in this encounter Care Teams Customer Service Driver Relationship Specialty Start Date End Date Angie Alonzo MD [address] [place] [address] PCP - General Family Medicine 06/25/17 documented as of this encounter
--- OUTSIDE RECORDS SUMMARY | 2024-03-11 15:14 | XMS_ITS | Encounter Summary ---
Author Organization [facility] [place] [address] Care Team Providers Care Sales Service Manager Name Role Phone Angie Alonzo MD Primary Care Provider [phone] Reason for Visit * Reason Comments Follow-up Encounter Details Date Type Department Care Team (Late st Contact Info) Description 01/26/2020 1:00 PM EDT Office [place] [address] Kasey Delgado APRN [facility] [place] [address] Encounter for follow-up surveillance of breast cancer; [...] Progress Notes * Kasey Delgado APRN - 01/26/2020 1:00 PM EDT Images from the original note were not included. Patient ID: Abimbola Dumas is a 74 y.o. female HPI: Abimbola is a former patient of Dr. 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 She is status post partial mastectomy and sentinel node excision on [...] history: A screening mammogram on 11/09/2016 at [facility] noted a new 0.9 mm mass in the left, upper inner quadrant. US showed a subtle 6 mm hypoechoic mass with some internal vascularity. She underwent biopsy on 12/04/2016 which came back as benign, but a second read here at [facility] was not concordant, so she was sent to [facility] and had repeat biopsy which did show a low grade, ER/MT positive, HER2 negative breast cancer. One sentinel node was negative. She completed XRT to the left breast on 09/02/2017 and started tamoxifen on September 16, 2017. She is tolerating this without side effects. Comprehensive Breast Program Surgery Follow Up: Range [...] and lives alone. She enjoys quilting. She does not smoke; occasional ETOH. Past Surgical Hx: CABG Past Medical Hx: CAD Physical Exam: General appearance: Alert, well-developed, well-nourished female in no acute distress. Skin: Warm and dry. Head: Normocephalic, atraumatic. Neck: Soft and supple without adenopathy. Cardiovascular: Normal rate, regular rhythm and normal heart sounds. No murmur heard. Pulmonary: Effort normal and breath sounds normal. No respiratory distress, cough, or wheezing. Breasts: Right breast appears normal. Left breast with well-healed incision in medial breast. Skin thickening of the left breast s/p radiation changes. No suspicious masses, tenderness, dimpling, erythema, or [...] situation. Results: Imaging performed (bilateral mammogram) at [facility] today shows no evidence of malignancy, BIRADS Category 2 with mainly fatty replaced breasts and post treatment changes on the left. The results were reviewed with her at today's appointment. Assessment: Clinical breast exam without notable masses, skin changes, dimpling, or nipple discharge. Stable exam. Plan: 1. Encounter for follow-up surveillance of breast cancer 2. Malignant neoplasm of upper-inner quadrant of left breast in female, estrogen receptor positive 3. Breast cancer screening by mammogram - Mammo Screening Cad and Yamil Bilateral; December-Jan 2021 I will see her back in a year with a mammogram and a clinical breast exam. She will also contact meif she develops any new breast changes or concerns prior to that time. She agrees to this plan. Routine recommendations discussed with the patient including importance of regular moderate intensity exercise, nutrition, decreasing cardiovascular risk, and optimizing weight. All questions were answered to the patient's satisfaction and they state understanding and agreement with today's treatment plan. They are encouraged to follow up sooner if they develop any new or concerning symptoms. Kasey Delgado APRN Surgical Oncology P [phone] F [phone] [facility] documented in this encounter Plan of Treatment Not on file documented as of this encounter Results * Mammo Screening Cad and Yamil Bilateral (01/24/2021 7:57 AM EDT) Anatomical Region [...] who have questions please contact the health mall plant caretaker that requested your imaging first. ? Electronically signed by: Alona Nielsen MD, [facility] ([phone]), at 01/24/2021 8:14 AM Kasey Delgado APRN IMG MAMMO ORD [...] mammogram documented in this encounter Care Teams Sales Service Manager Relationship Specialty Start Date End Date Angie Alonzo MD [facility] [address] [facility] [address] [place] [address] PCP - General Family Medicine 06/25/17 documented as of this encounter
--- OUTSIDE RECORDS SUMMARY | 2024-03-11 15:14 | XMS_ITS | Encounter Summary ---
Author Organization [facility] Address [facility] [place] [address] Care Team Providers Care Chief Wellness Officer Name Role Phone Angie Alonzo MD Primary Care Provider [phone] Reason for Visit * Consultation (Routine) - Specialty Diagnoses / Procedures Referred By Mima rivera Referred To Contact Endocrinology Diagnoses Nontoxic single thyroid nodule Angie Alonzo MD [facility] [address] [place] [address] [facility] [address] [place] [phone] Referral ID Status Reason Start Date Expiration Date V isits Requested Visits Authorized [id number] Consult, Test & Treat Connection [facility] PCP Updated and/or Approved 02/08/2020 08/10/2020 6 6 Encounter Details Date Type Department Care Team (Late st Contact Info) Description 03/04/2020 11:30 AM EDT Office [place] [phone] Brian Booth MD [facility] [place] [address] Solitary nodule of right lobe of thyroid [...] Sign Reading Time Taken Comments Blood Pressure 134/71 03/04/2020 11:11 AM EDT Pulse 88 03/04/2020 11:11 AM EDT Temperature 36.3 ??C (97.4 ??F) 03/04/2020 11:11 AM E DT Respiratory Rate - - Oxygen Saturation 100% 03/04/2020 11:11 AM EDT Inhaled Oxygen Concentration - - Weight 99.3 kg (219 lb) 03/04/2020 11:11 AM EDT Height 167.6 cm (5' 6) 03/04/2020 11:11 AM EDT Body Mass Index 35.35 03/04/2020 11:11 AM EDT documented in this encounter Progress Notes * Brian Booth MD - 03/04/2020 11:30 AM EDT Images from the original note were not included. Endocrinology Outpatient Follow Up Name: Abimbola Dumas : 1945 Date of visit: 03/04/20 ID: Abimbola Dumas is a 74 y.o. 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 She followed Dr. Mohan previously for right lower thyroid nodule. 07/2017: CT chest demonstrated 2.4 cm hypodense [...] clinic for ThyGenX - negative for mutations. Family history of thyroid cancer: no History of head/neck irradiation: no (radiotherapy for breast cancer +) Biotin use: no Review of Systems: General: normal energy level HEENT: Difficulty swallowing: no Hoarse voice: no Globus sensation: no Skin: no rashes CV: no lower extremity edema Resp: no breathing difficulty Abd: no diarrhea Heme: no easy bruising Current Outpatient Medications: ??? tamoxifen (NOLVADEX) 20 mg Tablet, TAKE 1 TABLET BY MOUTH ONCE DAILY, Disp: 90 tablet, Rfl: 3 ??? lisinopriL (Prinivil;Zestril) 40 mg Tablet, TAKE [...] 6 hours. (Patient not taking: Reported on 07/30/2019), Disp: , Rfl: ??? metoprolol tartrate (LOPRESSOR) 25 mg Tablet, Take 1 tablet by mouth 2 times daily., Disp: 60 tablet, Rfl: 2 ??? senna-docusate (PERICOLACE) 8.6-50 mg Tablet, Take 2 tablets by mouth daily., Disp: , Rfl: ??? METHYLCELLULOSE (CITRUCEL ORAL), Take by mouth daily as needed., Disp: , Rfl: ??? pantoprazole (PROTONIX) 20 mg Tablet, Delayed Release (E.C.), Take 20 mg by mouth daily., Disp:, Rfl: ??? atorvastatin (LIPITOR) 40 mg Tablet, Take 40 mg by mouth daily., Disp: , Rfl: ??? blood-glucose meter (FREESTYLE) Kit, 1 each by [facility].(Non-Drug; Combo Route) route as needed forOther., Disp: [...] Status post radiation therapy, Stroke, and Vertigo. Past Surgical History: Procedure Laterality Date ??? BREAST BIOPSY ??? BREAST LUMPECTOMY Left 07/2017 ??? BREAST SURGERY R lumpectomy, benign ??? BREAST SURGERY Right ? patient states benign surgery years ago ??? CHOLECYSTECTOMY ??? HYSTERECTOMY oophorectomy ??? IR CHEST TUBE PLACEMENT LEFT 04/10/2019 IR Chest Tube Placement Left 04/10/2019 Adis Oliveira MD [facility] INTERVENTIONL RAD ??? JOINT REPLACEMENT hip right ??? ORTHOPEDIC SURGERY R hip ??? OVARY REMOVAL ??? PRO ADJ TISS XFER TRUNK 10.1-30 Left 07/04/2017 ADJ.TISSUE TRANSFER, REARRANGEMENT, TRUNK,10.1 TO 30 SQ CM (WRVU 8.78) performed by Ashley Farooq MD at [facility] MAIN OR ??? PRO BX/REMV, LYMPH NODE, DEEP AXILL Left 07/04/2017 BIOPSY OR EXCISION OF LYMPH NODE(S), OPEN, DEEP AXILLARY NODE(S) (WRVU 6.43) performed by Ashley Farooq MD at [facility] OR ??? PRO CABG, ARTERIAL, SINGLE N/A 03/05/2019 @CABG, USING ARTERIAL GRAFT;SINGLE ARTERIAL GRAFT (WRVU 33.75) performed by Ryan Lynch MD at [facility] OR ??? PRO CABG, ARTERY-VEIN, THREE N/A 03/05/2019 @CABG; 3 VENOUS GRAFTS & ARTERIAL GRAFT (WRVU 10.49) performed by Ryan Lynch MD at [facility] OR ??? PRO ENDOSCOPY W/VIDEO-ASST VEIN HARVEST, CABG N/A 03/05/2019 ENDOSCOPIC HARVEST VEIN(S) FOR CABG (WRVU 0.31) performed by Ryan Lynch MD at [facility] OR ??? PRO INTRAOP SENTINEL LYMPH ID W/DYE INJECTION Left 07/04/2017 INTRAOPERATIVE ID (MAPPING) SENTINEL LYMPH NODE,INCLUDES INJECTION (WRVU 2.5) performed by Ashley Farooq MD at [facility] MAIN OR ??? PRO MASTECTOMY PARTIAL Left 07/04/2017 MASTECTOMY PARTIAL (WRVU 10.13) performed by Ashley Farooq MD at [facility] MAIN OR Social History Tobacco Use ??? Smoking status: Never Smoker ??? Smokeless tobacco: Never Used Substance Use Topics ??? Alcohol use: Never Comment: very occasional ??? Drug use: No family history includes Lung Cancer in her sister. Allergies Allergen Reactions ??? Penicillins Physical Exam: BP 134/71 Pulse 88 Temp 36.3 ??C (97.4 ??F) Ht 167.6 cm (5' 6) Wt 99.3 kg (219 lb) SpO2 100% BMI 35.35 kg/m?? General: No acute distress, pleasant, sitting comfortably Eyes: no lid lag; normal eye movements Nose/mouth: mucous membranes moist Neck: no supraclavicular fat pads; no palpable thyroid enlargement Lymphatic: no palpable cervical lymph nodes Respiratory: symmetrical chest expansion Cardiovascular: normal S1, S2 Musculoskeletal: normal gait; normal female musculature Skin: normal temperature/texture Neurological: no tremors Psychological: alert/oriented to person, place, time; normal affect; memory intact; normal judgement/insight Laboratory Data: Assessment / Plan: Abimbola Dumas is a 74 y.o. 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 07/2017: CT chest demonstrated 2.4 cm hypodense [...] clinic for ThyGenX - negative for mutations. Office based thyroid US today demonstrated reduction in size of right thyroid nodule with no new suspicious findings. Molecular testing of this nodule was previously negative in 2018. Will continue to follow with annual thyroid US to monitor nodule growth. Thank you for allowing me participate in the care of this pleasant patient. D/W Dr. Calixto Booth Fellow, Endocrinology, Diabetes and Metabolism [facility] * Brian Booth MD - 03/04/2020 11:30 AM EDT ENDOCRINOLOGY THYROID ULTRASOUND REPORT Patient:Abimbola Dumas, Date of exam: 03/04/2020 Indication: Right thyroid nodule Comparison: Thyroid US from 2018 Performed by: Brian Booth/Edin De Luna MD Real time images of the thyroid gland were obtained using a [employer] US machine. All measurements are given as Longitudinal/Sagittal x AP x Transverse. Right Lobe: The right lobe measures 3.1 x 1.5 x 1.6 cm, heterogeneous, with a nodule occupying most of the upper and middle pole. Right nodule: 1.7 x 1.6 x 1.2 cm, taller than wide, regular margins, solid, hypoechoic, no intranodal calcification,and with peripheral vascularity. Left Lobe: The left lobe measures 3.6 x 0.7 x 1.45 cm, heterogeneous, no nodules, 1 very small cyst medially in middle pole. Isthmus: The isthmus measures 2.13 mm, heterogenous, no cysts or nodules Lateral neck: I examined the lateral neck regions and saw no morphologically abnormal lymph nodes Impression: Solitary right thyroid nodule, decreased in size compared to 2018 imaging, no new suspicious findings * Dolly De Luna MD - 03/04/2020 11:30 AM EDT I saw this patient with Dr. Booth. I reviewed the sawyer portions of the history and physical exam, and reviewed pertinent lab data. I answered all patient questions. I was involved in all medical decision making and agree with this plan. DOLLY DE LUNA MD Life [employer] Sales Agentuser experience manager Section of Endocrinology [facility] documented in this encounter Plan of Treatment Not on file documented as of this encounter Results * TSH (03/04/2020 10:56 AM EDT) Thyroid Stimulating Hormone 1.14 0.27 - 4.20 mcIU/mL [facility] Blood specimen (specimen) 03/04/2020 10:56 AM EDT 03/04/2020 11:03 AM EDT Narrative Resulting Agency Comment Spec In Lab Dolly De Luna MD CHEMISTRY ORDERABLES Performing Organization Address City/State/[facility] Co de Phone Number [facility] [place] [address] documented in this encounter Visit Diagnoses Diagnosis Solitary nodule of right lobe of thyroid Nontoxic uninodular goiter documented in this encounter Care Teams Chief Wellness Officer Relationship Specialty Start Date End Date Angie Alonzo MD [address] [place] [address] PCP - General Family Medicine 06/25/17 documented as of this encounter
--- OUTSIDE RECORDS SUMMARY | 2024-03-11 15:15 | XMS_ITS | Encounter Summary ---
Author Organization [facility] Address [facility] [place] [address] Care Team Providers Care Software Technician Name Role Phone Angie Alonzo MD Primary Care Provider [phone] Encounter Details Date Type Department Care Team (Latest Contact Info) Description 04/10/2019 1:30 PM EDT - 04/10/2019 11:59 PM EDT Hospital Encounter XRay at [address] [place] [address] Lexii Thomas APRN [facility] CARDIAC [place] [address] Discharge Disposition: Home Social History Tobacco Use [...] mcg (200 unit) Tablet 1 tablet. 09/01/2012 amLODIPine (NORVASC) 10 mg Tablet Take 5 [...] blood-glucose meter (FREESTYLE) Kit 1 each by [facility].(Non-Drug; Combo Route) route as needed for Other. aspirin 81 mg Tablet, Chewable Take 81 mg by mouth daily. senna-docusate (PERICOLACE) 8.6-50 mg Tablet Take 2 tablets by mouth daily. 03/09/2019 07/17/2022 tamoxifen (NOLVADEX) 20 mg TabletIndications:Kristy sterling neoplasm of upper-inner quadrant of left breast in female, estrogen receptor positive Take 1 tablet by mouth daily. 90 tablet 3 09/16/2018 09/17/2019 CALCIUM CARB, CITRATE/VIT D3 (CALCIUM CARB AND CITRATE-VITD3 ORAL) Take by mouth 2 times daily. 06/18/2023 documented as of this encounter Plan of Treatment Not on file documented as of this encounter Procedures Procedure Name Priority Date/Time Associated Diagnosis Comments XR CHEST PA AND LATERAL Routine 04/10/2019 1:37 PM EDT documented in this encounter Results * XR Chest PA & Lateral (Generic) (04/10/2019 1:37 PM EDT) Anatomical Region Laterality Modality Chest N/A Digital Radiogra phy Impressions 04/10/2019 4:05 PM EDT Improved left-sided pleural effusion with small residual effusion. No other interval change. I have personally reviewed the image(s) and the residents interpretation and agree with the findings, Shanae Drake at 04/10/2019 4:05 PM Thank you for letting us participate in the care of this patient. For questions regarding this report, please contact the number below. ? Narrative 04/10/2019 4:05 PM EDT EXAMINATION: XR CHEST PA AND LATERAL (GENERIC) CLINICAL HISTORY: s/p left pleural effusion drainage TECHNIQUE: Frontal and lateral views of the chest COMPARISON: 04/07/2019 FINDINGS: Improved left-sided pleural effusion with some residual effusion. Right lung is unchanged. No pneumothorax. Cardiomediastinal silhouette, noah, and pulmonary vascular markings are unchanged. Median sternotomy wires and mediastinal surgical clips in place. Surgical clips also noted in the right upper quadrant and left axilla. No acute osseous abnormalities. Procedure Note Shanae Loja MD - 04/10/2019 EXAMINATION: XR CHEST PA AND LATERAL (GENERIC) CLINICAL HISTORY: s/p left pleural effusion drainage TECHNIQUE: Frontal and lateral views of the chest COMPARISON: 04/07/2019 FINDINGS: Improved left-sided pleural effusion with some residual effusion. Rightlung is unchanged. No pneumothorax. Cardiomediastinal silhouette, noah, andpulmonary vascular markings are unchanged. Median sternotomy wires and mediastinal surgical clips in place. Surgical clips also noted in the right upperquadrant and left axilla. No acute osseous abnormalities. IMPRESSION Improved left-sided pleural effusion with small residual effusion. No other interval change. I have personally reviewed the image(s) and the residents interpretationand agree with the findings, Shanae Drake at 04/10/2019 4:05PM Thank you for letting us participate in the care of this patient. Forquestions regarding this report, please contact the number below. Lexii Thomas HUMAN RESOURCES BENEFITS ASSISTANT IMG DX ORDERABLES documented in this encounter Visit Diagnoses Not on filedocumented in this encounter Care Teams Software Technician Relationship Specialty Start Date End Date Angie Alonzo MD [address] [place] [address] PCP - General Family Medicine 06/25/17 documented as of this encounter
--- OUTSIDE RECORDS SUMMARY | 2024-03-11 15:15 | XMS_ITS | Encounter Summary ---
Author Organization [facility] Address [facility] [place] [address] Care Team Providers Care Career Placement Specialist Name Role Phone Angie Alonzo MD Primary Care Provider [phone] Encounter Details Date Type Department Care Team (Late st Contact Info) Description 03/13/2019 Notes Only Cardiac Surgery [facility] [place] [address] Sabrina Sofia PA [facility] [place] [address] Social History Tobacco Use Types Packs/Day Years [...] as of this encounter Progress Notes * Sabrina Sofia PA - 03/13/2019 3:46 PM EDT Patient's PCP called today - saw Ms Dumas for follow up today. Reports patient's SBP 136 and HR 96. Wt 98.0kg (95.9kg dry weight) and only has 1 day of PO lasix left. Advised PCP she can increase metoprolol dosing, but prefer pt not to be transitioned to Toprol XL yet. PCP states she will increase metoprolol to 25mg tid and extend PO lasix 20mg daily for 1 week with potassium supplementation. documented in this encounter Plan of Treatment Not on file documented as of this encounter Visit Diagnoses Not on filedocumented in this encounter Care Teams Career Placement Specialist Relationship Specialty Start Date End Date Angie Alonzo MD [facility] [address] [place] [address] PCP - General Family Medicine 06/25/17 documented as of this encounter
--- OUTSIDE RECORDS SUMMARY | 2024-03-11 15:15 | XMS_ITS | Encounter Summary ---
Author Organization [facility] Address [facility] [place] [address] Care Team Providers Care Flower Shop Laborer/Designer Name Role Phone Angie Alonzo MD Primary Care Provider [phone] Encounter Details Date Type Department Care Team (Latest Contact Info) Description 04/07/2019 1:18 PM EDT - 04/07/2019 11:59 PM EDT Hospital Encounter XRay at [address] [place] [address] Ryan Lynch MD S/P CABG (coronary artery bypass graft) Discharge Disposition: Home Social History Tobacco Use [...] Comments XR CHEST PA AND LATERAL Routine 04/07/2019 1:26 PM EDT S/P CABG (coronary artery bypass graft) documented in this encounter Results * XR Chest PA & Lateral (Generic) (04/07/2019 1:26 PM EDT) Anatomical Region Laterality Modality Chest N/A Digital Radiogra phy Impressions 04/07/2019 3:39 PM EDT Increased left-sided pleural effusion, now moderate. Resolved right effusion. I have personally reviewed the image(s) and the residents interpretation and agree with the findings, Leeanna Quintero at 04/07/2019 3:39 PM Thank you for letting us participate in the care of this patient. For questions regarding this report, please contact the number below. ? Narrative 04/07/2019 3:39 PM EDT EXAMINATION: XR CHEST PA AND LATERAL (GENERIC) CLINICAL HISTORY: s/p CABGx4 TECHNIQUE: Frontal and lateral views of the chest COMPARISON: Chest radiograph 03/08/2019 FINDINGS: Resolution of right-sided pleural effusion with worsening left-sided effusion and atelectasis. Mediastinal silhouette, noah, pulmonary vascular markings are unchanged. Median sternotomy wires and mediastinal surgical clips in place. Surgical clips are also noted in the right upper quadrant left breast/axilla. No acute osseous abnormalities. Procedure Note Leeanna Quintero MD - 04/07/2019 EXAMINATION: XR CHEST PA AND LATERAL (GENERIC) CLINICAL HISTORY: s/p CABGx4 TECHNIQUE: Frontal and lateral views of the chest COMPARISON: Chest radiograph 03/08/2019 FINDINGS: Resolution of right-sided pleural effusion with worsening left-sidedeffusion and atelectasis. Mediastinal silhouette, noah, pulmonary vascular markingsare unchanged. Median sternotomy wires and mediastinal surgical clips inplace. Surgical clips are also noted in the right upper quadrant leftbreast/axilla. No acute osseous abnormalities. IMPRESSION Increased left-sided pleural effusion, now moderate. Resolved right effusion. I have personally reviewed the image(s) and the residents interpretationand agree with the findings, Leeanna Quintero at 04/07/2019 3:39 PM Thank you for letting us participate in the care of this patient. Forquestions regarding this report, please contact the number below. Authorizing Provider Result Beverly Lynch MD IMG DX ORDERABLES documented in this encounter Visit Diagnoses Diagnosis S/P CABG (coronary artery bypass graft) Postsurgical aortocoronary bypass status documented in this encounter Care Teams Flower Shop Laborer/Designer Relationship Specialty Start Date End Date Angie Alonzo MD [facility] [address] [address] PCP - General Family Medicine 06/25/17 documented as of this encounter
--- OUTSIDE RECORDS SUMMARY | 2024-03-11 15:15 | XMS_ITS | Encounter Summary ---
Author Organization [facility] Address [facility] [place] [address] Care Team Providers Care Professor Of Archaeology Name Role Phone Angie Alonzo MD Primary Care Provider [phone] Reason for Visit * Reason Comments Follow-up Encounter Details Date Type Department Care Team (Late st Contact Info) Description 07/30/2019 4:30 PM EST Office Visit [place]ematology [place] [address] Kalyan Damico MD [facility] HEMATOLOGY/[place] [address] Malignant neoplasm of upper-inner quadrant of left [...] Sign Reading Time Taken Comments Blood Pressure 170/69 07/30/2019 4:15 PM EST Pulse 92 07/30/2019 4:15 PM EST Temperature 36.7 ??C (98.1 ??F) 07/30/2019 4:15 PM ES T Respiratory Rate 16 07/30/2019 4:15 PM EST Oxygen Saturation 97% 07/30/2019 4:15 PM EST Inhaled Oxygen Concentration - - Weight 94.6 kg (208 lb 9.6 oz) 07/30/2019 4:15 P M EST Height 165.9 cm (5' 5.32) 07/30/2019 4:15 PM ES T Body Mass Index 34.38 07/30/2019 4:15 PM EST documented in this encounter Progress Notes * Kalyan Damico MD - 07/30/2019 4:30 PM EST Subjective: Patient ID: Abimbola Dumsa is a 73 y.o. female with Stage I breast cancer, [...] A left pleural effusion wasdrained on April 08, she completed cardiac rehab, and she has been promised her hip surgery in another four months. The tamoxifen is going well. She denies any hot flashes or sweats. She is down nowbecause her at this time last year. She denies any vaginal bleeding or spotting. She has swollen legs bilaterally, but she denies any redness, pain, or warmth in either leg. She has arthralgias in her left groin, the knees, the right wrist, and her right shoulder. She does water exercises for three hours a week, and she rides an exercise bicycle another three hours each week. Review of Systems She denies breast pain or a palpable breast mass, a cough, shortness of breath, chest pain, nausea,vomiting, diarrhea, constipation, headaches, double vision, skin rashes, or any other sites of joint or skeletal pain. The remainder of her review of systems is negative. Objective: Physical Exam Vitals signs reviewed. Constitutional: Comments: Her weight is down 0.4 kg over the past six months, and her BP is 170/69. HENT: Mouth/Throat: Pharynx: No oropharyngeal exudate. Neck: [...] abdominal tenderness. There is no guarding. Musculoskeletal: Right lower leg: Edema present. Left lower leg: Edema present. Comments: She has no pain on percussion over the spine, sternum, ribs, or hips. She has 1+ edema in the ankles without erythema, warmth, or calf tenderness. Lymphadenopathy: Cervical: No cervical adenopathy. Skin: General: Skin is warm and dry. Findings: No erythema. The most recent LFTs from July 18, 2018 included an albumin of 3.9, bili 0.3, alk phos 60, AST 19, and ALT 17. The CBC and electrolytes from June 19, 2017 showed a WBC count of 8.1, Hgb 14.6, Hct 43.0, platelets 304, ANC 5770, Na 144, K 3.7, Cl 102, bicarb 27, BUN 24, creatinine 0.69, and Ca 9.7. The most recent 3-D mammograms from January 20, 2019 showed no suspicious microcalcifications, masses,or architectural distortion, with post-treatment changes on the left. The breasts were almost entirely fatty. Assessment and Plan: Ms. Dumas??is a 73 year old woman with a 6.6 mm low??grade invasive ductal carcinoma, strongly estrogen and progesterone??receptor positive,??and Her-2 negative. She is tolerating tamoxifen well. I asked her to stop the tamoxifen for two weeks before her left hip replacement and for another two weeks after the replacement. She has asked me to consolidate her appointments, and I will cut back to seeing her once yearly after our next followup this summer, and I will repeat her HFP at that time. She knows to contact me in the interim if she has any concerns over her breast exam or over the tamoxifen. I will ask her to take a total of five years of tamoxifen through August of 2022. Kalyan Damico MD stud master/mistress in Hematology-Oncology documented in this encounter Plan of Treatment Not on file documented as of this encounter Results * (ABNORMAL) Hepatic Function Panel (01/26/2020 11:55 AM EDT) Protein, Total 7.1 6.1 - 8.0 gm/dL [facility] Albumin 4.3 3.2 - 5.2 gm/dL [facility] Aspartate Aminotransferase 31(H) 0 - 30 unit/L [facility] Alanine Aminotransferase 31(H) 0 - 30 unit/L [facility] Alkaline Phosphatase 59 35 - 105 unit/L [facility] Bilirubin, Total 0.3 0.2 - 1.3 mg/dL [facility] Bilirubin, Direct 0.1 0.0 - 0.3 mg/dL [facility] Blood specimen (specimen) 01/26/2020 11:55 AM EDT 01/26/2020 12:06 PM EDT Narrative Resulting Agency Comment Spec In Lab Kalyan Damico MD CHEMISTRY ORDERABLES [facility] [place] [address] documented in this encounter Visit Diagnoses Diagnosis Malignant neoplasm of upper-inner quadrant of left breast in female, estrogen receptor positive documented in this encounter Care Teams Professor Of Archaeology Relationship Specialty Start Date End Date Angie Alonzo MD [address] [place] [address] PCP - General Family Medicine 06/25/17 documented as of this encounter
--- OUTSIDE RECORDS SUMMARY | 2024-03-11 15:15 | XMS_ITS | Encounter Summary ---
Author Organization [facility] Address [facility] [place] [address] Care Team Providers Care Senior Director Insight Name Role Phone Angie Alonzo MD Primary Care Provider [phone] Encounter Details Date Type Department Care Team (Late st Contact Info) Description 04/10/2019 Orders [place] [id number] Lexii Thomas APRN [facility] [place] [address] Pleural effusion Social History Tobacco Use Types Packs/Day Years [...] as of this encounter Progress Notes * Lexii Thomas APRN - 04/10/2019 10:53 AM EDT Left pigtail removed without issue after two hours. 750ml ss drainage. Post pull cxr without pnx. documented in this encounter Plan of Treatment Not on file documented as of this encounter Visit Diagnoses Diagnosis Pleural effusion Unspecified pleural effusion documented in this encounter Care Teams Senior Director Insight Relationship Specialty Start Date End Date Angei Alonzo MD [address] [place] [address] PCP - General Family Medicine 06/25/17 documented as of this encounter
--- OUTSIDE RECORDS SUMMARY | 2024-03-11 15:15 | XMS_ITS | Encounter Summary ---
Author Organization [facility] Address [facility] [place] [address] Care Team Providers Care Real Estate Economist Name Role Phone Angie Alonzo MD Primary Care Provider [phone] Reason for Referral * Consultation (Routine) - Specialty Diagnoses / Procedures Referred By Contact Referred To Contact Cardiac Rehabilitation Diagnoses S/P CABG (coronary artery bypass graft) Ryan Lynch MD [facility] [place] [address] Cardiac Rehab, [address] [place] [address] Referral ID Status Reason Start Date Expiration Date V isits Requested Visits Authorized [id number] Consult, Test & Treat 03/09/2019 09/05/2019 36 36 Reason for Visit * Auth/Cert Specialty Diagnoses / Procedures Referred By Contac t Referred To Contact Diagnoses CAD (coronary artery disease) cad cad Procedures PRO CABG, ARTERIAL, SINGLE PRO CABG, ARTERY-VEIN, THREE PRO ENDOSCOPY W/VIDEO-ASST VEIN HARVEST, CABG @CABG, USING ARTERIAL GRAFT;SINGLE ARTERIAL GRAFT (WRVU 33.75) @CABG; 3 VENOUS GRAFTS & ARTERIAL GRAFT (WRVU 10.49) ENDOSCOPIC HARVEST VEIN(S) FOR CABG (WRVU 0.31) Referral ID Status Reason Start Date Expiration Date Visits Re quested Visits Authorized [id number] 1 1 Encounter Details Date Type Department Care Team (Latest Contact Info) Description 03/05/2019 6:12 AM EDT - 03/09/2019 3:15 PM EDT Hospital Encounter Intermediate [place] [address] Ryan Lynch MD S/P CABG (coronary artery bypass graft) Discharge Disposition: Home with VNA Social History Tobacco Use Types Packs/Day Years [...] Sign Reading Time Taken Comments Blood Pressure 150/81 03/09/2019 11:35 AM EDT Pulse 99 03/09/2019 11:35 AM EDT Temperature 36.5 ??C (97.7 ??F) 03/09/2019 11:35 AM E DT Respiratory Rate 18 03/09/2019 11:35 AM EDT Oxygen Saturation 97% 03/09/2019 11:35 AM EDT Inhaled Oxygen Concentration - - Weight 98.9 kg (218 lb 0.6 oz) 03/09/2019 4:27 A M EDT Height 167.6 cm (5' 6) 03/05/2019 6:45 AM EDT Body Mass Index 35.19 03/05/2019 6:45 AM EDT documented in this encounter Discharge Summaries * Sabrina Sofia PA - 03/09/2019 9:08 AM EDT Inpatient - Discharge Summary Patient Name: Abimbola Dumas Patient Age: 73 y.o. Birthdate: 1945 Language: Filipino Race: White Ethnicity: Not nor Admit Date: 03/05/2019 Discharge Date: 03/09/2019 Attending Physician: Ryan Lynch MD Follow-up Recommendations for Providers: ??? Please continue routine management of cardiovascular risk factors including blood pressure, lipids, glucose, etc. ??? Please note any changes to medications. ??? Patient to follow-up with PCP, Angie Alonzo MD, in 1-2 weeks. ??? Patient to follow-up with Cardiac Surgery, Dr. Ryan Lynch, in ~ 4 weeks with CXR, EKG. Inpatient Provider Contact Information: [facility] [place] [facility] [place] [address] FAX [phone] Discharge Diagnoses (Hospital Problems) Primary Diagnoses: CAD s/p CABG x 4 Secondary Diagnoses: Active Hospital Problems Diagnosis ??? S/P CABG (coronary artery bypass graft) ??? CAD (coronary artery disease) Resolved Hospital Problems No resolved problems to display. Other Diagnoses (Chronic Problems): Active Non-Hospital Problems Diagnosis ??? Malignant neoplasm of upper-inner quadrant of left breast in female, estrogen receptor positive Discharged to: Patient discharged to home Functional and Cognitive Status: stable Discharge Conditions/Prognosis: stable Past Medical History: Diagnosis Date ??? Antiplatelet [...] ago ??? CHOLECYSTECTOMY ??? HYSTERECTOMY oophorectomy ??? JOINT REPLACEMENT hip right ??? ORTHOPEDIC SURGERY R hip ??? PRO ADJ TISS XFER TRUNK 10.1-30 Left 07/04/2017 ADJ.TISSUE TRANSFER, REARRANGEMENT, TRUNK,10.1 TO 30 SQ CM (WRVU 8.78) performed by Ashley Farooq MD at [facility] MAIN OR ??? PRO BX/REMV, LYMPH NODE, DEEP AXILL Left 07/04/2017 BIOPSY OR EXCISION OF LYMPH NODE(S), OPEN, DEEP AXILLARY NODE(S) (WRVU 6.43) performed by Ashley Farooq MD at [facility] OR ??? PRO CABG, ARTERIAL, SINGLE N/A 03/05/2019 @CABG, USING ARTERIAL GRAFT;SINGLE ARTERIAL GRAFT (WRVU 33.75) performed by Ryan Lynch MD at [facility] OR ??? PRO CABG, ARTERY-VEIN, THREE N/A 03/05/2019 @CABG; 3 VENOUS GRAFTS & ARTERIAL GRAFT (WRVU 10.49) performed by Ryan Lynch MD at [facility] OR ??? PRO ENDOSCOPY W/VIDEO-ASST VEIN HARVEST, CABG N/A 03/05/2019 ENDOSCOPIC HARVEST VEIN(S) FOR CABG (WRVU 0.31) performed by Ryan Lynch MD at [facility] OR ??? PRO INTRAOP SENTINEL LYMPH ID W/DYE INJECTION Left 07/04/2017 INTRAOPERATIVE ID (MAPPING) SENTINEL LYMPH NODE,INCLUDES INJECTION (WRVU 2.5) performed by Ashley Farooq MD at [facility] OR ??? PRO MASTECTOMY, PARTIAL Left 07/04/2017 MASTECTOMY PARTIAL (WRVU 10.13) performed by Ashley Farooq MD at [facility] OR Prior To Admission Medications Medications Prior to Admission Medication Sig Dispense Refill Last Dose ??? tamoxifen (NOLVADEX) 20 mg Tablet Take 1 tablet by mouth daily. 90 tablet 3 03/04/2019 at Unknowntime ??? amLODIPine (NORVASC) 5 mg Tablet Take 5 mg by mouth daily. 03/05/2019 at Unknown time ??? METHYLCELLULOSE (CITRUCEL ORAL) Take by mouth daily as needed. 03/04/2019 at Unknown time ??? pantoprazole (PROTONIX) 20 mg Tablet, Delayed Release (E.C.) Take 20 mg by mouth daily. 03/05/2019 at Unknown time ??? potassium chloride (KLOR-CON) 20 mEq Packet Take 20 mEq by mouth daily. 03/04/2019 at Unknown time ??? lisinopril (PRINIVIL;ZESTRIL) 40 mg Tablet Take 40 mg by mouth daily. 03/04/2019 at Unknown time ??? chlorthalidone (HYGROTEN) 25 mg Tablet Take 25 mg by mouth daily. 03/04/2019 at Unknown time ??? atorvastatin (LIPITOR) 40 mg Tablet Take 40 mg by mouth daily. 03/04/2019 at Unknown time ??? meTOPROLOL succinate (TOPROL-XL) 50 mg Tablet Sustained Release 24 hr Take 50 mg by mouth daily. 03/05/2019 at Unknown time ??? aspirin 81 mg Tablet, Chewable Take 81 mg by mouth daily. 03/04/2019 at Unknown time ??? multivitamin Capsule Take 1 capsule by mouth daily. 03/04/2019 at Unknown time ??? CALCIUM CARB, CITRATE/VIT D3 (CALCIUM CARB AND CITRATE-VITD3 ORAL) Take by mouth. 03/04/2019 at Unknown time ??? [DISCONTINUED] chlorhexidine (HIBICLENS) 4 % Liquid Apply topically daily as needed. Shower from head to toe with Chlorhexidine the night before surgery . 120 mL 0 ??? blood-glucose meter (FREESTYLE) Kit 1 each by Misc.(Non-Drug; Combo Route) route as needed for Other. Taking at Unknown time Updated Allergies/ADRs: Allergies Allergen Reactions ??? Penicillins History of Presentation: Abimbola Dumas??is a 73 y.o.??year old female??who was seeking clearance for a hip replacement. ??Due to her history she was given a stress test that was postitive. Major Procedures/Operations: 03/05/2019: CABGx4 Hospital Course: s/p CABGx4 Abimbola Dumas was admitted to [facility] on 03/05/2019 via the Same Day Program.She was brought to the operating room where Dr. Ryan Lynch performed CABGx4. She tolerated the procedure and was brought to the Cardiovascular Intensive Care Unit for recovery. She initially required the pharmacologic support of intravenous epinephrine, norepinephrine, and nitroglycerine. She was extubated from the ventilator on the day of surgery. All drips were weaned to off. Routine postoperative and home medications were started and a diabetic diet was advanced. Aspirin 81mg daily was continued. She was started on beta blockade and this wasoptimized. Diuretics were started and she responded appropriately.Statin therapy was continued. She was transferred to the Intermediate Cardiac Care Unit for continued rehabilitation. All tubes, lines, and epicardial pacing wires were removed without incident. She voided normally after her Carl was removed. She was seen by Physical Therapy and Cardiac Rehabilitation. Sternal precaution education was provided. Her discharge plan at this time is to home. The remainder of the her hospital course was uneventful and by postoperative day #4 she had met all criteria for discharge. Pain was controlled on oralmedications. She had walked 5 minutes and gone up and down stairs. She was tolerating a regular diet and had a bowel movement. Vital Signs at Discharge: Last set of vitals: BP 142/76 (BP Location (NBP): Left arm, Patient Position: Sitting) Pulse 100 Temp 36.7 ??C (98.1 ??F) (Oral) Resp 18 Ht 167.6 cm (5' 6) Wt 98.9 kg (218 lb 0.6 oz) SpO2 97% BMI 35.19 kg/m?? Patient Vitals for the past 168 hrs: Weight 03/09/19 0427 98.9 kg (218 lb 0.6 oz) 03/08/19 0400 100.6 kg (221 lb 12.5 oz) 03/07/19 0600 101.3 kg (223 lb 5.2 oz) 03/06/19 0600 101.6 kg (223 lb 15.8 oz) 03/05/19 0645 95.9 kg (211 lb 6.4 oz) Current weight: 98.9 kg Admit/Preop weight: 95.9kg Pertinent physical exam findings prior to discharge: General: Awake, alert, sitting up in chair Neuro: Appropriately conversant, moving all extremities with equal strength Heart: RRR, S1S2 heard, NSR on monitor rate of 80s Lungs: Lung sounds present, CTAB, non-labored breathing on RA Abdomen: soft, NT, ND, +bowel sounds Ext: WWP, 1+ BLE Incisions: sternotomy c/d/i, LE incision c/d/i Tubes/Lines/Drains: PIV Important Studies and Lab Data: Lab Results Component Value Date WBC 12.6 (H) 03/08/2019 RBC 3.18 (L) 03/08/2019 HGB 9.9 (L) 03/08/2019 HCT 29.3 (L) 03/08/2019 PLATELET 203 03/08/2019 Recent Labs 03/05/19 1104 INR 1.6 Lab Results Component Value Date NA 137 03/08/2019 K 4.0 03/09/2019 CL 102 03/08/2019 CO2 25 03/08/2019 BUN 24 (H) 03/08/2019 CREATININE 0.56 (L) 03/08/2019 Pending Studies and Lab Data: none Immunizations Given this Hospitalization: There is no immunization history on file for this patient. Smoking Status at Discharge: Social History Tobacco Use Smoking Status Never Smoker Smokeless Tobacco Never Used STS Data Medications: Pre-operative beta thuy? Given Discharge beta thuy? Given Discharge lipid therapy? Given Discharge anti-platelet therapy? Given Discharge Medications: Your Medications New Medications Dose Details acetaminophen 500 mg Tab Commonly known as: TYLENOL Take 2 tablets by mouth every 6 hours. 1,000 mg Refills: 0 furosemide 20 mg Tab Commonly known as: LASIX Take 1 tablet by mouth daily for 5 days. 20 mg Quantity: 5 tablet Refills: 0 metoprolol tartrate 25 mg Tab Commonly known as: LOPRESSOR Take 1 tablet by mouth 2 times daily. 25 mg Quantity: 60 tablet Refills: 2 potassium chloride 10 mEq Tbsr Commonly known as: K-DUR/KLOR-CON Take 1 tablet by mouth daily for 5 days. Start taking on: March 10, 2019 Replaces: potassium chloride 20 mEq Pack 10 mEq Quantity: 5 tablet Refills: 0 senna-docusate 8.6-50 mg Tab Commonly known as: PERICOLACE Take 2 tablets by mouth daily. 2 tablet Refills: 0 Continued medications, unchanged Dose Details aspirin 81 mg Chew Take 81 mg by mouth daily. 81 mg Refills: 0 atorvastatin 40 mg Tab Commonly known as: LIPITOR Take 40 mg by mouth daily. 40 mg Refills: 0 blood-glucose meter Kit Commonly known as: FREESTYLE 1 each by Misc.(Non-Drug; Combo Route) route as needed for Other. 1 each Refills: 0 CALCIUM CARB AND CITRATE-VITD3 ORAL Take by mouth. Refills: 0 CITRUCEL ORAL Take by mouth daily as needed. Refills: 0 pantoprazole 20 mg Tbec Commonly known as: PROTONIX Take 20 mg by mouth daily. 20 mg Refills: 0 tamoxifen 20 mg Tab Commonly known as: NOLVADEX Take 1 tablet by mouth daily. 20 mg Quantity: 90 tablet Refills: 3 STOPPED Medications amLODIPine 5 mg Tab Commonly known as: NORVASC chlorhexidine 4 % Liqd Commonly known as: HIBICLENS chlorthalidone 25 mg Tab Commonly known as: HYGROTEN lisinopril 40 mg Tab Commonly known as: PRINIVIL;ZESTRIL metoprolol succinate 50 mg Tablet sr Commonly known as: TOPROL-XL multivitamin Cap potassium chloride 20 mEq Pack Commonly known as: KLOR-CON Replaced by: potassium chloride 10 mEq Tbsr Instructions Given to Patient at Discharge: General Instructions None Discharge Instructions: Call your doctor if: You have a fever of greater than 101 degrees, shaking chills, if you develop redness or drainage from your incision sites, or if you have questions. Please call your surgeon's office if you have any discharge or drainage from your chest incision. Your surgeon, Dr. Ryan Lynch and/or the Cardiac Surgery Physician Chronometer Repairer Team may be reached at . Weight: Weigh yourself daily. Please call the office if you notice increasing weight, increasing fluid retention (edema), and/or SOB. Sternal (breast bone) precautions: No lifting greater than 7-10 pounds; no pushing or pulling with upper extremities; no excessive chest stretching for the first 4 weeks. Further instructions will begiven to you at your follow-up appointment. Activity level: Walk three times a day. You should continue to increase your walks by 1-2 minutes each day. It is expected that you will be walking 20-30 minutes twice a day within 3-4 weeks after discharge to home. Rest between activities and after meals. Use common sense, don't exhaust yourself. Biking: You may use a stationary bicycle whenever you are comfortable enough to permit this. Tighten the resistance slightly. Increase the amount of time on the bicycle as you would do for your walks, a minute or two each day. No biking outside until after your return appointment with Dr. Ryan Casas. You may use a [place] or treadmill but avoid any pulling motion with the arms. Home activities: You may do light housework, e.g. dusting, setting the table, washing dishes, preparing a meal. Light carpentry and gardening are allowed. Avoid trying to open tight jars and stuck windows. No vacuuming, mopping, raking, shoveling, digging or hoeing until after your return visit with the surgeon. Sexual activity: You may engage in sexual activity when you feel ready. Use a position that protects your sternum (breastbone). Do not have your partner lie on your chest. Stairs: There are no restrictions on stair climbing. Use common sense. Don't exhaust yourself. Activities outside the home: After the first week home you may go out to dinner, visit friends, go to a movie, go to sikh, etc. Heavy activities: No hunting, skiing, jogging, snow shoveling, snowmobiling, lawn mowing, swimming,golf or tennis until after your return appointment with the surgeon. Do not ride motorcycles, [employer]'stractors or horses. Avoid the use of a rifle with kickback against the shoulder for six months. Sleep: Try to establish normal sleep patterns. Long naps during the day may make it hard for you tosleep at night. Use the pain medication at bedtime for the first week at home. If you have nightmares, contact us. Some medications make this worse and these can be changed. Smoking: It is very important that you not smoke after surgery. Smoking cessation education was provided as appropriate. If you need further assistance with this please call and you will be referred to a smoking cessation specialist. Medications: Take only those medications listed on your discharge information. Keep your pain undercontrol so you can be active, do your coughing and breathing exercises and sleep. Contact us if thepain medication isn't working for you. Do not take any herbal preparations until after you return to see the surgeon. Special Physician Instructions: DO NOT USE ANY IBUPROFEN (ADVIL, MOTRIN, ETC) OR OTHER NSAIDS (NONSTEROIDAL ANTI-INFLAMMATORY DRUGS) FOR A TOTAL OF 10 DAYS AFTER SURGERY. PLEASE CONTACT THE CARDIOTHORACIC SURGERY OFFICE IF YOU HAVE QUESTIONS ABOUT WHICH DRUGS YOU SHOULD NOT USE. . Diet: You should follow a regular diet until your appetite returns to normal. At that point in timeyou should resume a low fat, low cholesterol, [place] [employer] Diet/Diabetic diet. Driving: No driving until cleared by your surgeon. Avoid long trips if possible. If you must go on a long trip, stop the car and walk every hour. Shower/Bath: You may shower daily. No baths, soaking, or swimming until cleared by your surgeon. Wound care: Wash your incisions daily with soap and rinse well, pat dry. Assess for any signs of infection such as increased redness, pain, warmth or drainage. Please call your surgeon's office if you have any discharge or drainage from your chest incision. If there is a lot of swelling, apply wayne wraps during the day and remove at bedtime. Elevate your legs when you are sitting. REMOVE CHEST TUBE SUTURES ON OR AFTER (03/15/19) Home oxygen therapy: N/A Follow up appointments: ??? Patient to follow-up with PCP, Angie Alonzo MD, in 1-2 weeks. ??? Our office will schedule an appointment with your Cardiac Surgeon, Dr. Ryan Lynch, in ~4 weeks with chest x-ray and EKG before your appointment. Cardiac Rehabilitation: Abimbola Dumas was seen today regarding participation in the outpatient Phase 2 Cardiac Rehabilitation at [facility] . The patient agrees to a referral to this program. The referral will be sent at discharge and the patient should be contacted by the Program within 1- 2 weeks from discharge. ?? Of note, this patient will be staying with her son in [place], [place] for a 2-3 weeks at discharge before returning to home. Future Appointments and Orders Future Appointments and Orders Future Appointments Provider Department Dept Phone 04/17/2019 9:00 AM Nimco Mohan MD Endocrinology at [facility] Arrive at: [employer] [phone] 04/17/2019 9:00 AM ULTRASOUND, ENDO/RHEUM Endocrinology at [facility] Arrive at: [employer] Area [phone] Future Orders Complete By Expires XR Chest PA & Lateral (Generic) [[id number] Custom] 04/08/2019 (Approximate) 10/08/2019 Process Instructions: Scheduling Instructions: Questions: Where will study be performed?: [facility] Radiology Portable exam?: Reason for exam and clinical history: s/p CABGx4 Other pertinent information: Stat read required?: Date of injury if applicable: Requested Time: EKG 12 Lead [88614 CPT(R)] As directed Process Instructions: Scheduling Instructions: Questions: Which location will this be performed?: [place] Is a rhythm strip needed?: No Referral to Cardiac Rehab [EUY752 Custom] As directed Process Instructions: If no progress note charted, please enter Clinical details in comments. Scheduling Instructions: Questions: My question or request is: s/p CABG. Cardiac rehab at [facility] Referral to Home Health - at DISCHARGE [LWX1080 CPT(R)] As directed Process Instructions: Scheduling Instructions: Comments: DOCUMENTATION FOR VNA SERVICES (INCLUDING THOSE PATIENTS WITH MEDICARE COVERAGE REQUIRING HOME VNA SERVICES AND/OR HOSPICE SERVICES) PATIENT'S LOCATION: Abimbola Dumas [facility] [address] [facility] [address] (home) No relevant phone numbers on file. [address] [place], [place] Worker's Name: patient and son. In discussion with the attending physician, it is certified that this patient is under their care and that they, or a Nurse Practitioner, or Physician Chronometer Repairer who is working directly with them, hada face to face encounter that meets the physician face to face encounter requirements with this patient on 03/06/2019 The encounter with the patient was in whole, or in part, for the following medical condition, whichis the primary reason for home health care services: s/p CABGx4 In discussion with the provider, it is certified that, based on their findings, the following services are medically necessary for home health services. To provide the following care/treatments with the clinical findings supporting the need for services as follows: HOME HEALTH AGENCY: [facility]. PHONE: [phone] FAX: [phone] RN orders: Cardiopulmonary assessment, incisional assessment, assess vital signs, assessment of rehab progress, medication management and effectiveness, home safety evaluation. PT ORDERS: Continue rehab for endurance, gait stability and strength with mobility and transfers. Home safety evaluation. Home exercise program if appropriate. Start of Care Date: next 24-48 hours SPECIAL INSTRUCTIONS: For any follow up questions, needs, or issues please call the Cardiac SurgeryOffice at [phone] FOR MEDICARE ONLY: (please delete this section if not Medicare) In discussion with the attending physician, it is certified that the clinical findings support thatthis patient is homebound i.e. absences from home require considerable and taxing effort due to: Restricted mobility and poor activity tolerance due to recent cardiac surgery. Patient requires assistance of another to leave the home. Home Health agencies which cover the area of patient's residence have been reviewed, either verbally or in writing, and patient/family have chosen the agency as noted. Questions: Agency name and contact information: [facility] Patient location post discharge: home What services are requested: Registered Nurse Physical Therapy Occupational Therapy Start date: Responsible MD post discharge contact info: pcp Arrangements for VNA/home care: As above. VN RN OR PCP TO PLEASE REMOVE CHEST TUBE SUTURES ON OR AFTER (03/15/19) Signed: DUDLEY Woodard [facility] Section of Cardiac [place] [facility] [place] [address] FAX [phone] Date: 03/09/2019 CC: MD Sherita Garcia Anil K, MD [address] [place] [id number] documented in this encounter Discharge Instructions * Patient Instructions* Sabrina Sofia PA - 03/09/2019 10:46 AM EDT Discharge Instructions: Call your doctor if: You have a fever of greater than 101 degrees, shaking chills, if you develop redness or drainage from your incision sites, or if you have questions. Please call your surgeon's office if you have any discharge or drainage from your chest incision. Your surgeon, Dr. Ryan Lynch and/or the Cardiac Surgery Physician Chronometer Repairer Team may be reached at . Weight: Weigh yourself daily. Please call the office if you notice increasing weight, increasing fluid retention (edema), and/or SOB. Sternal (breast bone) precautions: No lifting greater than 7-10 pounds; no pushing or pulling with upper extremities; no excessive chest stretching for the first 4 weeks. Further instructions will begiven to you at your follow-up appointment. Activity level: Walk three times a day. You should continue to increase your walks by 1-2 minutes each day. It is expected that you will be walking 20-30 minutes twice a day within 3-4 weeks after discharge to home. Rest between activities and after meals. Use common sense, don't exhaust yourself. Biking: You may use a stationary bicycle whenever you are comfortable enough to permit this. Tighten the resistance slightly. Increase the amount of time on the bicycle as you would do for your walks, a minute or two each day. No biking outside until after your return appointment with Dr. Ryan Casas. You may use a [place] or treadmill but avoid any pulling motion with the arms. Home activities: You may do light housework, e.g. dusting, setting the table, washing dishes, preparing a meal. Light carpentry and gardening are allowed. Avoid trying to open tight jars and stuck windows. No vacuuming, mopping, raking, shoveling, digging or hoeing until after your return visit with the surgeon. Sexual activity: You may engage in sexual activity when you feel ready. Use a position that protects your sternum (breastbone). Do not have your partner lie on your chest. Stairs: There are no restrictions on stair climbing. Use common sense. Don't exhaust yourself. Activities outside the home: After the first week home you may go out to dinner, visit friends, go to a movie, go to sikh, etc. Heavy activities: No hunting, skiing, jogging, snow shoveling, snowmobiling, lawn mowing, swimming,golf or tennis until after your return appointment with the surgeon. Do not ride motorcycles, [employer]'stractors or horses. Avoid the use of a rifle with kickback against the shoulder for six months. Sleep: Try to establish normal sleep patterns. Long naps during the day may make it hard for you tosleep at night. Use the pain medication at bedtime for the first week at home. If you have nightmares, contact us. Some medications make this worse and these can be changed. Smoking: It is very important that you not smoke after surgery. Smoking cessation education was provided as appropriate. If you need further assistance with this please call and you will be referred to a smoking cessation specialist. Medications: Take only those medications listed on your discharge information. Keep your pain undercontrol so you can be active, do your coughing and breathing exercises and sleep. Contact us if thepain medication isn't working for you. Do not take any herbal preparations until after you return to see the surgeon. Special Physician Instructions: DO NOT USE ANY IBUPROFEN (ADVIL, MOTRIN, ETC) OR OTHER NSAIDS (NONSTEROIDAL ANTI-INFLAMMATORY DRUGS) FOR A TOTAL OF 10 DAYS AFTER SURGERY. PLEASE CONTACT THE CARDIOTHORACIC SURGERY OFFICE IF YOU HAVE QUESTIONS ABOUT WHICH DRUGS YOU SHOULD NOT USE. . Diet: You should follow a regular diet until your appetite returns to normal. At that point in timeyou should resume a low fat, low cholesterol, [place] [employer] Diet/Diabetic diet. Driving: No driving until cleared by your surgeon. Avoid long trips if possible. If you must go on a long trip, stop the car and walk every hour. Shower/Bath: You may shower daily. No baths, soaking, or swimming until cleared by your surgeon. Wound care: Wash your incisions daily with soap and rinse well, pat dry. Assess for any signs of infection such as increased redness, pain, warmth or drainage. Please call your surgeon's office if you have any discharge or drainage from your chest incision. If there is a lot of swelling, apply wayne wraps during the day and remove at bedtime. Elevate your legs when you are sitting. REMOVE CHEST TUBE SUTURES ON OR AFTER (03/15/19) Home oxygen therapy: N/A Follow up appointments: ??? Patient to follow-up with PCP, Angie Alonzo MD, in 1-2 weeks. ??? Our office will schedule an appointment with your Cardiac Surgeon, Dr. Ryan Lynch, in ~4 weeks with chest x-ray and EKG before your appointment. Cardiac Rehabilitation: Abimbola Dumas was seen today regarding participation in the outpatient Phase 2 Cardiac Rehabilitation at [facility] . The patient agrees to a referral to this program. The referral will be sent at discharge and the patient should be contacted by the Program within 1- 2 weeks from discharge. ?? Of note, this patient will be staying with her son in [place], [place] for a 2-3 weeks at discharge before returning to home. documented in this encounter Medications at Time of Discharge Medication Sig Dispensed Refills Start Date End Date MULTIVITAMIN ORAL 1 tablet. 09/01/2012 calcium-vitamin D3 600 mg-5 mcg (200 unit) Tablet 1 tablet. 09/01/2012 potassium chloride (K-DUR/KLOR-CON) 20 mEq Tab Sust.Rel. [...] meter (FREESTYLE) Kit 1 each by [facility].(Non-Drug; Combo Route) route as needed for Other. aspirin 81 mg Tablet, Chewable Take 81 mg by mouth daily. potassium chloride (K-DUR/KLOR-CON) 10 mEq Tablet Sustained Release Take 1 tablet by mouth daily for 5 days. 5 tablet 03/10/2019 03/15/2019 furosemide (LASIX) 20 mg Tablet Take 1 tablet by mouth daily for 5 days. 5 tablet 03/09/2019 03/14/2019 senna-docusate (PERICOLACE) 8.6-50 mg Tablet Take 2 tablets by mouth daily. 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 90 tablet 3 09/16/2018 09/17/2019 CALCIUM CARB, CITRATE/VIT D3 (CALCIUM CARB AND CITRATE-VITD3 ORAL) Take by mouth 2 times daily. 06/18/2023 documented as of this encounter Progress Notes * Denise Camara RN - 03/09/2019 3:15 PM EDT D/c summary faxed to [facility] Pt went home with family. 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 A letter describing our affiliations was reviewed with them and they were educated about their right to choose where referrals are placed. Patient requests referral to [facility] PHONE: [phone] FAX: [phone] Expected date of discharge: 03/09/2019 Referral routed to the Neuropsychology Medical Consultant for matching with agency/vendor and to provide any required information. * Sara Baptiste, PT - 03/09/2019 11:16 AM EDT Physical Therapy Note Treatment Number PT: 2 Patient profile: Abimbola Dumas??is a 73 y.o.??year old female??who was seeking clearance for a hip replacement. ??Due to her history she was given a stress test that was postitive.?Now s/p CABG x 4. Social History: Pt lives alone in a 1 level home with no steps to enter. She plans to go to her son's home upon d/c. Son works from home. Son's home has 6 steps to enter with rail. Pt was indep without a device. She was about to have her L hip replaced when found to need CT surgery. ?? Precautions/Special Considerations: sternal precautions, fall risk, full code, planning L hip replacement Mobility and Positioning Recommendations: ?? Ambulate 3-4x/daily, with supervision. ?? Please encourage up to chair for meal times as able. Subjective: I can do things, I just do them slow. Patient reports she did 1 lap this morning and took a shower. Patient reports eager to resume pool exercises once cleared by doctor. Objective: Patient seen for physical therapy and demonstrated the following: Pain: Description Location At rest minimal chest With coughing hurts a bit chest Vital Signs: At Rest With Activity SpO2 (RA) - 95-99% while walking & stairs HR 70's 106-128 bpm Incentive spirometer: 1250 ml x5; cough strong, Dry Cognition/Vision: alert and oriented to time and place Bed Mobility: Supine to Sit: supervised w/ verbal cues to use LE's for momentum and exhale with movement Sit to Supine: supervised w/ verbal cues to exhale with movement Transfers: Sit to Stand: independent with no UE use, intermittently holding heart pillow Stand to Sit: independent with no UE use Gait: Distance: ~100 ft, 1 flight stairs, ~60 ft - with 4-5 minute rest leaning against wall at top of stairs Device used: no assistive device Level of assist: supervised, PT supervising vital signs Gait mechanics: adequate step height, length and mildly decreased jennifer Stairs: up and down 1 flight of stairs, 4-5 minute rest leaning against wall at top of stairs per pt report of SOB Ascending: reciprocally, 1 hand on rail for balance Descending: step to step, demonstrated leading with L or R LE Balance: Sitting Static: good Standing Static: good Standing Dynamic / Gait: good Education: Pt educated on facility specific cardiac post-op exercises, use of inspirometer, sternalprecautions and activity modification. Patient verbalizes understanding of discussed topics. Therex: neck flex/ext/rotation, alternating unilateral shoulder elevation, alternating LAQ, ankle pumps - x5 each Pt left in bedside recliner chair with needs met following visit. Assessment: Abimbola Dumas was seen today for physical therapy treatment session for continuation of POC. Patient is s/p CABG x4 with intention to d/c home with son today. Patient verbalized to PT and demonstrated consistent compliance with sternal precautions throughout session. Instructed pt on bed mobility strategies, emphasis on LE momentum. Walked 160ft continuously with 1 flight of stairs (4-5 min break after ascending), pt required only supervision of vital signs. Patients O2 and HR responseto walking and stairs is WNL. Feel that patient has adequate understanding of needs to instruct yaya to best support her own care. Feel that patient is ready to discharge when medically ready. Discharge Recommendations: Based on the current findings, Anticipated Discharge Disposition: home with assist(with son who works from home) when medically ready for hospital discharge. Consult Recommendations: No other consults recommended at this time. Equipment needs: No equipment necessary Transportation Needs: Family vehicle Cleared Physical Therapy? yes Physical Therapy Goals: To be achieved by 03/16/19: ?? 1. Pt will demonstrate independence with all precautions without cues. 2. Pt. to perform bed mobility independently. 3. Pt. to perform sit to stand and bed to chair transfers with supervision using LRD. 4. Pt. to ambulate 160 feet with supervision using a LRD. 5. Pt. to ambulate up/down 6 step/stairs using one rail with supervision. 6. Family or caregiver to demonstrate understanding of therapeutic interventions to support the care of the patient. Plan: Therapy Frequency: monitor for therapy interventions as outlined in initial evaluation. Patient agrees with plan as stated. Time IN / OUT: 7101-4728 Total Evaluation Minutes, Physical Therapy: 32(TEF, LILY) Tania Romero, SPT Physical Therapy Inpatient Rehabilitation Department * Maru Roger - 03/08/2019 2:03 PM EDT Nutrition Services - Education Note Abimbola Dumas : 1945 AGE: 73 y.o. Patient Active Problem List Diagnosis Date Noted ??? *Hospital-S/P CABG (coronary artery bypass graft) 03/05/2019 ??? Hospital-CAD (coronary artery disease) 02/25/2019 ??? Malignant neoplasm of upper-inner quadrant of left breast in female, estrogen receptor porbkbot48/28/2017 Reason for Nutrition Intervention: Diagnosis Diet Order: [facility] Appetite: Improving appetite per patient Food allergies: NKFA Chewing/Swallowing difficulty: None per patient Wt Readings from Last 3 Encounters: 03/08/19 100.6 kg (221 lb 12.5 oz) 02/24/19 97.5 kg (215 lb) 02/19/19 97.7 kg (215 lb 6.4 oz) Ht Readings from Last 3 Encounters: 03/05/19 167.6 cm (5' 6) 02/24/19 167.6 cm (5' 6) 02/24/19 167.6 cm (5' 6) Body mass index is 35.8 kg/m??. Education: Nutrition After Heart Surgery dietary guidelines. Assessment: Patient seen regarding Diagnosis - CABG x 4. Patient verbalized good understanding of protein needs following heart surgery, suggested adding a good source of protein with all meals. She reported an improving appetite without difficulty chewing or swallowing and she is tolerating current diet without nausea or vomiting. Per patient she follows a low carb and low sugar restriction athome, suggested watching the sodium intake. Patient states that today 03/08 she consumed 100% of her breakfast and lunch. Provided patient with copy of Guidelines for a Heart Healthy Lifestyle booklet, with emphasis on page 40, Nutrition After Heart Surgery. Patient had no further questions at this time. Provided contact information. Nutrition will continue to monitor an follow up with patient weekly. Nutrition Plan: Continue current diet. Add good source of protein with all meals. Educational Material Guidelines for a Heart Healthy Lifestyle provided. Encourage good po intake. Monitor weight. Support and encouragement provided. Nutrition services to follow weekly through hospital course unless consulted in the interim. SELENE Aguilar Pager #[phone] * William Lexii, CERNER ANALYST - 03/08/2019 10:15 AM EDT Cardiac Surgery Progress Note: ID: [id number] 73 yo F 3 Days Post-Op cabg x 4 EF-60% 24 Hour Events: Floor status Pathway DOMINIQUE overnight +flatus, no bm O: Temperature Temp: 36.5 ??C (97.7 ??F) Temp: [36.5 ??C (97.7 ??F)-37.3 ??C (99.1 ??F)] Heart Rate Heart Rate: 96 Heart Rate: [86-116] Blood Pressure BP: 141/63 BP: (110-141)/(53-80) Respiratory Rate Resp: 20 Resp: [20-29] SpO2 SpO2: 94 % SpO2: [93 %-99 %] I/O last 3 completed shifts: In: 1022 [P.O.:1020; I.V.:2] Out: 3355 [Urine:3355] I/O this shift: In: 362 [P.O.:360; I.V.:2] Out: 800 [Urine:800] Current Weight Weight: 100.6 kg (221 lb 12.5 oz) Patient Vitals for the past 168 hrs: Weight 03/08/19 0400 100.6 kg (221 lb 12.5 oz) 03/07/19 0600 101.3 kg (223 lb 5.2 oz) 03/06/19 0600 101.6 kg (223 lb 15.8 oz) 03/05/19 0645 95.9 kg (211 lb 6.4 oz) Physical exam: General: In chair, appears comfortable Neuro: Alert, FLANNERY Lungs: CTA Heart: RRR Abdomen: SNT Ext:Warm, well perfused Incisions: incision cdi with glue Tubes/Lines/Drains: piv LABS: Recent Labs 03/08/19 0245 03/06/19 0315 03/05/19 1610 03/05/19 1104 03/05/19 1038 WBC 12.6* 12.5* -- 11.2* -- HGB 9.9* 9.9* 10.9* 7.6* 7.3* HCT 29.3* 29.7* -- 22.8* 22.5* PLATELET 203 198 -- 153 185 PT -- -- -- 18.0* -- INR -- -- -- 1.6 -- PTT -- -- -- 32 -- FIBRINOGEN -- -- -- 118* 120* Recent Labs 03/08/19 0245 03/07/19 0600 03/06/19 1255 03/06/19 0315 03/05/19 2115 NA 137 -- -- 138 -- K 3.7 3.7 3.8 4.3 4.0 CL 102 -- -- 106 -- CO2 25 -- -- 22 -- BUN 24* -- -- 17 -- CREATININE 0.56* -- -- 0.54* -- GLUCOSE 141 -- -- 165 -- CALCIUM 7.8* -- -- 7.2* -- Assessment/Plan: 73 y.o. female 3 Days Post-Op s/p cabg x 4, pathway. Increase metoprolol to 25 bid Day 3 studies reviewed CXR pending Given K+ repletion Neuro:tylenol, oxy prn CV:metop 25'', lipitor 40' Resp: RA, db,is GI:adat, protonix : Voiding Renal:lasix 20iv'', k prn ID:no issues Heme:asa Endo:ssi Dispo: floor status DW Attending surgeon on rounds Dr. Renee NIEVES, LINDSEY Cardiac surgery p.[phone] * Santos Rao MD - 03/07/2019 7:57 AM EDT Cardiac Surgery Progress Note: ID: [id number] 73 yo F pod 1 sp cabg x 4 EF-60% 24 Hour Events: Gtt's d/c-ed Started on metop 12.5'', HR 70's Started on lasix 20IV BID CT's d/c-ed Transferred to floor status + Flatus, no BM, tolerating diet slowly O: Temperature Temp: (!) 38.3 ??C (100.9 ??F) Temp: [36.9 ??C (98.4 ??F)-38.3 ??C (100.9 ??F)] Heart Rate Heart Rate: 78 Heart Rate: [74-102] Blood Pressure BP: 115/40 BP: (99-137)/(29-56) Respiratory Rate Resp: 26 Resp: [14-26] SpO2 SpO2: 94 % SpO2: [93 %-100 %] I/O last 3 completed shifts: In: 2132.8 [P.O.:1120; I.V.:1012.8] Out: 2840 [Urine:2520; Other:320] No intake/output data recorded. Current Weight Weight: 101.3 kg (223 lb 5.2 oz) Patient Vitals for the past 168 hrs: Weight 03/07/19 0600 101.3 kg (223 lb 5.2 oz) 03/06/19 0600 101.6 kg (223 lb 15.8 oz) 03/05/19 0645 95.9 kg (211 lb 6.4 oz) Physical exam: General: In chair, appears comfortable Neuro: Alert, FLANNERY Lungs: CTA Heart: RRR Abdomen: SNT Ext:Warm, well perfused Incisions: incision cdi with glue Tubes/Lines/Drains: piv, carl, tpw LABS: Recent Labs 03/06/19 0315 03/05/19 1610 03/05/19 1104 03/05/19 1038 WBC 12.5* -- 11.2* -- HGB 9.9* 10.9* 7.6* 7.3* HCT 29.7* -- 22.8* 22.5* PLATELET 198 -- 153 185 PT -- -- 18.0* -- INR -- -- 1.6 -- PTT -- -- 32 -- FIBRINOGEN -- -- 118* 120* Recent Labs 03/07/19 0600 03/06/19 1255 03/06/19 0315 03/05/19 2115 03/05/19 1610 NA -- -- 138 -- -- K 3.7 3.8 4.3 4.0 4.2 CL -- -- 106 -- -- CO2 -- -- 22 -- -- BUN -- -- 17 -- -- CREATININE -- -- 0.54* -- -- GLUCOSE -- -- 165 -- -- CALCIUM -- -- 7.2* -- -- ABG (Arterial Blood Gas) No results found for: PHART, PO2ART, [id number] Assessment/Plan: 73 y.o. female 2 Days Post-Op s/p cabg x 4, pathway. D/c carl D/c TPW Cont metop/lasix Given K+ repletion POD3 labs/CXR ordered for tomorrow Neuro:tylenol, oxy prn CV:metop 12.5'', lipitor 40' Resp:nc, wean as able, db,is GI:adat, protonix :carl d/c today Renal:lasix 20iv'', k prn ID:no issues Heme:asa Endo:ssi Dispo:transfer DW Attending surgeon on rounds Dr. Renee Rao MD Cardiac surgery p.[phone] * Jose Levi PA - 03/06/2019 9:01 AM EDT Cardiac Surgery Progress Note: ID: [id number] 73 yo F pod 1 sp cabg x 4 EF-60% 24 Hour Events: To CVCC post procedure Extubated 1800 Nauseated o/n, received compazine, improved NTG at 30 S: Feels well, some incisional pain, nausea resolved O: Temperature Temp: 37.4 ??C (99.3 ??F) Temp: [35.2 ??C (95.4 ??F)-37.9 ??C (100.2 ??F)] Heart Rate Heart Rate: 73 Heart Rate: [62-80] Blood Pressure BP: 143/72 BP: -- Respiratory Rate Resp: 19 Resp: [12-23] SpO2 SpO2: 97 % SpO2: [95 %-100 %] Drips: NTG 30 I/O last 3 completed shifts: In: 3755.7 [I.V.:2610.7; Blood:1043; IV Piggyback:102] Out: 3275 [Urine:2024; Other:750; Blood:500] No intake/output data recorded. I-3.8 O-[address].3 CT's 750/240/50 Admit weight 95.89 kg Current Weight Weight: 101.6 kg (223 lb 15.8 oz) Patient Vitals for the past 168 hrs: Weight 03/06/19 0600 101.6 kg (223 lb 15.8 oz) 03/05/19 0645 95.9 kg (211 lb 6.4 oz) Physical exam: General: In chair, appears comfortable Neuro: Alert, FLANNERY Lungs: CTA Heart: RRR Abdomen: SNT Ext:Warm, well perfused Incisions: Dressing cd Tubes/Lines/Drains: meseret hi, bud ct x 2, rij LABS: Recent Labs 03/06/1931403/05/19 1610 03/05/19 1104 03/05/19 1038 WBC 12.5* -- 11.2* -- HGB 9.9* 10.9* 7.6* 7.3* HCT 29.7* -- 22.8* 22.5* PLATELET 198 -- 153 185 PT -- -- 18.0* -- INR -- -- 1.6 -- PTT -- -- 32 -- FIBRINOGEN -- -- 118* 120* Recent Labs 03/06/1931403/05/19 2115 03/05/19 1610 NA 138 -- -- K 4.3 4.0 4.2 CL 106 -- -- CO2 22 -- -- BUN 17 -- -- CREATININE 0.54* -- -- GLUCOSE 165 -- -- CALCIUM 7.2* -- -- ABG (Arterial Blood Gas) Lab Results Component Value Date pH Art 7.34 (L) 03/05/2019 pO2 Art 121 (H) 03/05/2019 pCO2 Art 38 03/05/2019 Assessment/Plan: 73 yo F pod 1 sp cabg x 4, pathway D/c NTG Metop 12.5'' Lasix 20 iv'' D/c CT's Transfer Neuro:tylenol, oxy prn CV:metop 12.5'', lipitor 40' Resp:nc, wean as able, db,is GI:adat, protonix :carl Renal:lasix 20iv'', k prn ID:no issues Heme:asa Endo:ssi Dispo:transfer * Joana Ochoa, RT - 03/05/2019 4:54 PM EDT AMV Protocol: No ARDS Protocol: No CTICU Protocol: Yes Vent Settings: Servo I Ventilator Mode: (S) SIMV Vol + PS Tidal Volume Set: 500 Resp Rate Set: 12 PEEP Set: 8 FiO2: 40 % PSV: 10 Ventilator Measurements: Resp: 14 Vt Exhaled: 407 PIP: 21 Vt Spontaneous: 485 MAP: 9.9 Plateau Press: Ve: 7.9 PEEP: SpO2: 100 % EtCO2: 35 mmHg Airway: 7.5 @ 21 cm at the Teeth. Skin Integrity: WDL Breath Sounds: Diminished Secretions: Thin, white Assessment / Events / Plan of the Day: Patient received from OR orally intubated, placed in SIMV 470 (8cc/kg) x 12 + 8 & 100%. ABG post 30 minutes after arrival to unit per protocol. FiO2 weaned to 40%, VT increased to 500 (8.5cc/kg). Recruitment maneuver done. Patient was placed in PSBT 5/5 & 40% and was doing well but had increased output from chest tubes and was resedated, thus was placed back in SIMV. PEEP at 8. Continue to support with CTICU protocol. Patient with AYLA, wears CPAP at home - home unit in her room. Joana Ochoa, documented in this encounter H&P Notes * Ryan Lynch MD - 03/05/2019 7:20 AM EDT No interval change, pt ready for surgery. Source Note - Ryan Lynch MD - 03/05/2019 7:19 AM EDT HPI: Abimbola Dumas is a 73 y.o. year old female who was seeking clearance for a hip replacement. Due to herhistory she was given a stress test that was postitive. ?? Problem List: Patient Active Problem List ?? Diagnosis ??? Malignant neoplasm of upper-inner quadrant of left breast in female, estrogen receptor positive ? Ms. Dumas presented on screening mammography November [...] She started tamoxifen on September 16, 2017. ? Past Medical History: Past??Medical??History Past Medical History: Diagnosis Date ??? Arthritis ? Breast cancer ? Diabetes mellitus ? pre-DM ??? GERD (gastroesophageal reflux disease) ? Hypertension ? Stroke ? Past Surgical History: Past??Surgical??History Past Surgical History: Procedure Laterality Date ??? BREAST BIOPSY ? BREAST LUMPECTOMY Left 07/2017 ??? BREAST SURGERY ? R lumpectomy, benign ??? BREAST SURGERY Right ? ?? patient states benign surgery years ago ??? CHOLECYSTECTOMY ? HYSTERECTOMY ? oophorectomy ??? ORTHOPEDIC SURGERY ? R hip ??? PRO ADJ TISS XFER TRUNK 10.1-30 Left 07/04/2017 ?? ADJ.TISSUE TRANSFER, REARRANGEMENT, TRUNK,10.1 TO 30 SQ CM (WRVU 8.78) performed by Ashley Farooq MD at [facility] OR ??? PRO BX/REMV, LYMPH NODE, DEEP AXILL Left 07/04/2017 ?? BIOPSY OR EXCISION OF LYMPH NODE(S), OPEN, DEEP AXILLARY NODE(S) (WRVU 6.43) performed by Ashley Farooq MD at [facility] OR ??? PRO INTRAOP SENTINEL LYMPH ID W/DYE INJECTION Left 07/04/2017 ?? INTRAOPERATIVE ID (MAPPING) SENTINEL LYMPH NODE,INCLUDES INJECTION (WRVU 2.5) performed by Ashley Farooq MD at [facility] OR ??? PRO MASTECTOMY, PARTIAL Left 07/04/2017 ?? MASTECTOMY PARTIAL (WRVU 10.13) performed by Ashley Farooq MD at [facility] OR ? Family History: Family??History Family History Problem Relation Age of Onset ??? Lung Cancer Sister ? smoker ??? Breast Cancer Neg Hx ? Ovarian Cancer Neg Hx ? Social History: Social??History Social History ?? Socioeconomic History ??? Marital status: ? Spouse name: Not on file ??? Number of children: Not on file ??? Years of education: Not on file ??? Highest education level: Not on file Occupational History ??? Not on file Social Needs ??? Financial resource strain: Not on file ??? Food insecurity: ? Worry: Not on file ? Inability: Not on file ??? Transportation needs: ? Medical: Not on file ? Non-medical: Not on file Tobacco Use ??? Smoking status: Never Smoker ??? Smokeless tobacco: Never Used Substance and Sexual Activity ??? Alcohol use: Not on file ? Comment: very occasional ??? Drug use: No ??? Sexual activity: Not on file Lifestyle ??? Physical activity: ? Days per week: Not on file ? Minutes per session: Not on file ??? Stress: Not on file Relationships ??? Social connections: ? Talks on phone: Not on file ? Gets together: Not on file ? Attends quaker service: Not on file ? Active member of club or organization: Not on file ? Attends meetings of clubs or organizations: Not on file ? Relationship status: Not on file ??? Intimate partner violence: ? Fear of current or ex partner: Not on file ? Emotionally abused: Not on file ? Physically abused: Not on file ? Forced sexual activity: Not on file Other Topics Concern ??? Not on file Social History Narrative ??? Not on file ? Review of Systems: ?? Constitutional - no weakness, fatigue, fevers HEENT - no visual changes; no hearing changes; no recent URI sx Neck - no new pain, limitation of motion Cardiovascular - angina Pulmonary - no dyspnea, cough, bronchitis, pneumonias GI - no abdominal pain, constipation, diarrhea - no frequency, nocturia, dysuria Musculoskeletal - no muscle pain, new limitation of motion Extremities - no edema Neuro - no confusion, weakness, syncope, paresthesias Hematologic - no bruising, excessive bleeding ?? Allergies: Allergies Allergen Reactions ??? Penicillins ? Meds: Medications??Taking No outpatient medications have been marked as taking for the 02/24/19 encounter (Unscheduled Encounter) with Ryan Lynch MD. ? Physical Exam: ?? There were no vitals filed for this visit. ? Constitutional:Well appearing in no acute distress. Skin: Warm, well perfused. HEENT: within normal limits. NC/AT EOMI Neck: supple, no JVD, no bruit. Heart: regular rate and rhythm, without murmurs. Lungs: clear bilaterally. Abdomen: soft, nontender, active bowel sounds, no masses noted. Extremities: full range of motion; no clubbing, cyanosis, or edema. Neuro exam: Alert and oriented x 3. Strength grossly normal. ?? Diagnositcs: No results for input(s): WBC, NA, K, CL, CO2, GLUCOSE in the last 72 hours. ?? Invalid input(s): HBG, HCT, PLATELETS, , BUN, CREATININE, TROP ?? CATH: ?? ECHO: ? Assessment and Plan: ?? Abimbola Dumas is a 73 yo female with a history of angina who upon pre op for a hip had a positive stress test and was cathed. 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 ?? We had a long discussion regarding the risks and benefits of surgery. The risks include but are notlimited to stroke, damage to any organ (heart, lung, liver, kidneys, brain, etc.), infection, need for blood transfusion with the concomitant risks of AIDS and hepatitis, renal failure resulting in dialysis, prolonged respiratory failure requiring mechanical ventilation, graft failure, and the possibility of . She seems to understand and wishes to proceed. ?? We plan surgery on next . * Ryan Lynch MD - 03/05/2019 7:19 AM EDT HPI: Abimbola Dumas is a 73 y.o. year old female who was seeking clearance for a hip replacement. Due to herhistory she was given a stress test that was postitive. ?? Problem List: Patient Active Problem List ?? Diagnosis ??? Malignant neoplasm of upper-inner quadrant of left breast in female, estrogen receptor positive ? Ms. Dumas presented on screening mammography November [...] She started tamoxifen on September 16, 2017. ? Past Medical History: Past??Medical??History Past Medical History: Diagnosis Date ??? Arthritis ? Breast cancer ? Diabetes mellitus ? pre-DM ??? GERD (gastroesophageal reflux disease) ? Hypertension ? Stroke ? Past Surgical History: Past??Surgical??History Past Surgical History: Procedure Laterality Date ??? BREAST BIOPSY ? BREAST LUMPECTOMY Left 07/2017 ??? BREAST SURGERY ? R lumpectomy, benign ??? BREAST SURGERY Right ? ?? patient states benign surgery years ago ??? CHOLECYSTECTOMY ? HYSTERECTOMY ? oophorectomy ??? ORTHOPEDIC SURGERY ? R hip ??? PRO ADJ TISS XFER TRUNK 10.1-30 Left 07/04/2017 ?? ADJ.TISSUE TRANSFER, REARRANGEMENT, TRUNK,10.1 TO 30 SQ CM (WRVU 8.78) performed by Ashley Farooq MD at [facility] OR ??? PRO BX/REMV, LYMPH NODE, DEEP AXILL Left 07/04/2017 ?? BIOPSY OR EXCISION OF LYMPH NODE(S), OPEN, DEEP AXILLARY NODE(S) (WRVU 6.43) performed by Ashley Farooq MD at [facility] OR ??? PRO INTRAOP SENTINEL LYMPH ID W/DYE INJECTION Left 07/04/2017 ?? INTRAOPERATIVE ID (MAPPING) SENTINEL LYMPH NODE,INCLUDES INJECTION (WRVU 2.5) performed by Ashley Farooq MD at [facility] OR ??? PRO MASTECTOMY, PARTIAL Left 07/04/2017 ?? MASTECTOMY PARTIAL (WRVU 10.13) performed by Ashley Farooq MD at [facility] OR ? Family History: Family??History Family History Problem Relation Age of Onset ??? Lung Cancer Sister ? smoker ??? Breast Cancer Neg Hx ? Ovarian Cancer Neg Hx ? Social History: Social??History Social History ?? Socioeconomic History ??? Marital status: ? Spouse name: Not on file ??? Number of children: Not on file ??? Years of education: Not on file ??? Highest education level: Not on file Occupational History ??? Not on file Social Needs ??? Financial resource strain: Not on file ??? Food insecurity: ? Worry: Not on file ? Inability: Not on file ??? Transportation needs: ? Medical: Not on file ? Non-medical: Not on file Tobacco Use ??? Smoking status: Never Smoker ??? Smokeless tobacco: Never Used Substance and Sexual Activity ??? Alcohol use: Not on file ? Comment: very occasional ??? Drug use: No ??? Sexual activity: Not on file Lifestyle ??? Physical activity: ? Days per week: Not on file ? Minutes per session: Not on file ??? Stress: Not on file Relationships ??? Social connections: ? Talks on phone: Not on file ? Gets together: Not on file ? Attends quaker service: Not on file ? Active member of club or organization: Not on file ? Attends meetings of clubs or organizations: Not on file ? Relationship status: Not on file ??? Intimate partner violence: ? Fear of current or ex partner: Not on file ? Emotionally abused: Not on file ? Physically abused: Not on file ? Forced sexual activity: Not on file Other Topics Concern ??? Not on file Social History Narrative ??? Not on file ? Review of Systems: ?? Constitutional - no weakness, fatigue, fevers HEENT - no visual changes; no hearing changes; no recent URI sx Neck - no new pain, limitation of motion Cardiovascular - angina Pulmonary - no dyspnea, cough, bronchitis, pneumonias GI - no abdominal pain, constipation, diarrhea - no frequency, nocturia, dysuria Musculoskeletal - no muscle pain, new limitation of motion Extremities - no edema Neuro - no confusion, weakness, syncope, paresthesias Hematologic - no bruising, excessive bleeding ?? Allergies: Allergies Allergen Reactions ??? Penicillins ? Meds: Medications??Taking No outpatient medications have been marked as taking for the 02/24/19 encounter (Unscheduled Encounter) with Ryan Lynch MD. ? Physical Exam: ?? There were no vitals filed for this visit. ? Constitutional:Well appearing in no acute distress. Skin: Warm, well perfused. HEENT: within normal limits. NC/AT EOMI Neck: supple, no JVD, no bruit. Heart: regular rate and rhythm, without murmurs. Lungs: clear bilaterally. Abdomen: soft, nontender, active bowel sounds, no masses noted. Extremities: full range of motion; no clubbing, cyanosis, or edema. Neuro exam: Alert and oriented x 3. Strength grossly normal. ?? Diagnositcs: No results for input(s): WBC, NA, K, CL, CO2, GLUCOSE in the last 72 hours. ?? Invalid input(s): HBG, HCT, PLATELETS, , BUN, CREATININE, TROP ?? CATH: ?? ECHO: ? Assessment and Plan: ?? Abimbola Dumas is a 73 yo female with a history of angina who upon pre op for a hip had a positive stress test and was cathed. 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 ?? We had a long discussion regarding the risks and benefits of surgery. The risks include but are notlimited to stroke, damage to any organ (heart, lung, liver, kidneys, brain, etc.), infection, need for blood transfusion with the concomitant risks of AIDS and hepatitis, renal failure resulting in dialysis, prolonged respiratory failure requiring mechanical ventilation, graft failure, and the possibility of . She seems to understand and wishes to proceed. ?? We plan surgery on next . documented in this encounter Miscellaneous Notes * Consult Note - Harika Harris RN - 03/09/2019 10:21 AM EDT [facility] Abimbola Dumas was seen today regarding participation in the outpatient Phase 2 Cardiac Rehabilitation at [facility] . The patient agrees to a referral to this program. The referral will be sent at discharge and the patient should be contacted by the Program within 1- 2 weeks from discharge. Of note, this patient will be staying with her son in [place], [place] for a 2-3 weeks at discharge before returning to home. * Plan of Care - Buddy Barr PT - 03/06/2019 4:45 PM EDT Physical Therapy Evaluation Patient profile: Abimbola Dumas??is a 73 y.o.??year old female??who was seeking clearance for a hip replacement. ??Due to her history she was given a stress test that was postitive. Now pod 1 sp cabg x 4 Patient with the following active problems: Past Medical History: Diagnosis Date ??? Antiplatelet [...] ago ??? CHOLECYSTECTOMY ??? HYSTERECTOMY oophorectomy ??? JOINT REPLACEMENT hip right ??? ORTHOPEDIC SURGERY R hip ??? PRO ADJ TISS XFER TRUNK 10.1-30 Left 07/04/2017 ADJ.TISSUE TRANSFER, REARRANGEMENT, TRUNK,10.1 TO 30 SQ CM (WRVU 8.78) performed by Ashley Farooq MD at [facility] OR ??? PRO BX/REMV, LYMPH NODE, DEEP AXILL Left 07/04/2017 BIOPSY OR EXCISION OF LYMPH NODE(S), OPEN, DEEP AXILLARY NODE(S) (WRVU 6.43) performed by Ashley Farooq MD at [facility] OR ??? PRO CABG, ARTERIAL, SINGLE N/A 03/05/2019 @CABG, USING ARTERIAL GRAFT;SINGLE ARTERIAL GRAFT (WRVU 33.75) performed by Ryan Lynch MD at [facility] OR ??? PRO CABG, ARTERY-VEIN, THREE N/A 03/05/2019 @CABG; 3 VENOUS GRAFTS & ARTERIAL GRAFT (WRVU 10.49) performed by Ryan Lynch MD at [facility] OR ??? PRO ENDOSCOPY W/VIDEO-ASST VEIN HARVEST, CABG N/A 03/05/2019 ENDOSCOPIC HARVEST VEIN(S) FOR CABG (WRVU 0.31) performed by Ryan Lynch MD at [facility] OR ??? PRO INTRAOP SENTINEL LYMPH ID W/DYE INJECTION Left 07/04/2017 INTRAOPERATIVE ID (MAPPING) SENTINEL LYMPH NODE,INCLUDES INJECTION (WRVU 2.5) performed by Ashley Farooq MD at [facility] OR ??? PRO MASTECTOMY, PARTIAL Left 07/04/2017 MASTECTOMY PARTIAL (WRVU 10.13) performed by Ashley Farooq MD at [facility] OR Social History: Pt lives alone in a 1 level home with no steps to enter. She plans to go to her son's home upon d/c. Son's home has 6 steps to enter with rail. Pt was indep without a device. She was about to have her L hip replaced when found to need CT surgery. Precautions/Special Considerations: STERNAL; fall; IJ Mobility and Positioning Recommendations: ?? Ambulate 3-4x/daily with walker, Cg assist ?? Please encourage up to chair for meal times as able. Subjective: ???I am going to go to my son's house I guess.?? Objective: Pt seen for evaluation today in the CV. Pt up in the chair at start of session. Pain: Number Location At rest 10 With activity 09/07 sternal Vital Signs: At Rest With Activity SpO2 (RA) 99% 94% BP 111/50 mmHg 102/58 mmHg HR 82 bpm 86 bpm Mental Status: alert, oriented to person, place, and time Bed Mobility: Supine to Sit: not assessed; pt up in chair at start of session Transfers: Sit to Stand: min assist to walker Stand to Sit: cg assist Gait: Distance: 60 ft Device used: rolling walker Level of assist: Cg assist; chair follow Gait mechanics: guarded; decreased stance L LE Balance: Sitting Static: good Sitting Dynamic: good Standing Static: fair with walker Standing Dynamic / Gait: Fair with walker Education: Patient has been educated on Bed mobility, Transfers, Safety , Precautions/protocol, Gait , Role of therapy and Discharge planning and verbalizes understanding. Patient status, treatment, and mobility recommendations discussed with nursing. Assessment: Abimbola Dumas was seen today for physical therapy evaluation. Pt presents with impaired breathing technique, impaired gait, impaired transfers, impaired cough, impaired activity tolerance and new sternal precautions. Pt ambualted short distance in the hallway today with walker. Pt may benefit from walker upon d/c, will continue to assess. Pt plans to go to her son's upon d/c and anticipate she will make gains and be safe for d/c to son's home once medically ready. The pt would benefit from skilled therapy services while in the hospital to maximize functional abilities. Discharge Recommendations: Based on the current findings, Anticipated Discharge Disposition: home with assist(to son's home) when medically ready for hospital discharge. Equipment needs: TBD Goals: To be achieved by 03/16/19: 1. Pt will demonstrate independence with all precautions without cues. 2. Pt. to perform bed mobility independently. 3. Pt. to perform sit to stand and bed to chair transfers with supervision using LRD. 4. Pt. to ambulate 160 feet with supervision using a LRD. 5. Pt. to ambulate up/down 6 step/stairs using one rail with supervision. 6. Family or caregiver to demonstrate understanding of therapeutic interventions to support the care of the patient. Plan: Therapy Frequency: 2-4 times/wk for therapy including bed mobility training, gait training, patient/family education, stair training and transfer training. Patient/family understand and agree with plan as stated above. 2017 PT Evaluation Code Rationale: ?? Diagnosis & Pertinent Co-Morbidities, personal factors, and present illness affecting Plan of Care: (see above); Additional personal factors or co- morbidities that impact plan: ?? Total # of Factors: 0 1-2 3+ x ?? Examination of body system impairments, functional limitations and behaviors, and/or participation restrictions. Addressing 1-2 elements Addressing 3 + elements x Addressing 4 + elements ?? Clinical presentation: See assessment above. Stable/Uncomplicated Evolving/Fluctuating Symptoms Unstable/Unpredictable x ?? Clinical decision making of moderate complexity based on pt's functional performance as outlinedin this evaluation. Total Evaluation Minutes, Physical Therapy: 25(eval) Time IN/OUT: [id number] BUDDY BARR, PT Pager: [phone] Physical Therapy Inpatient Rehabilitation Department * Initial Assessments - Savage Lobo RN - 03/06/2019 2:25 PM EDT Office of Care Management Initial Assessment Savage Lobo RN reviewed record and discussed patient with Care Team. Source of Information: patient Introduced self/reviewed role; services accepted. Reason for Hospitalization: Abimbola Dumas??is a 73 y.o.??year old female??who was seeking clearance for a hip replacement. ??Due to her history she was given a stress test that was postitive Now pod 1 sp cabg x 4 ?? Past Medical History: Diagnosis Date ??? Antiplatelet [...] at times. does not use a cane Hospitalizations Within the Past 30 Days: none Anticipated Length Of Stay (If known): 3-5 days Current Decision-Making Capacity: patient is A and O x 3 Advance Care Planning: Her daughter is Alanis CAVAZOS Current Coping/Education/Information Needs: denies Current Functional Ability: bedrest, Functional Status Prior to Admission: independent lives alone, still drives. Home Environment: Patient lives in a House 1 story, she has her equipment with her and wears a cpapat night. Social & Family Supports/Community Resources: her daughter [facility] History: denies Substance Use/Abuse: denies Health/Prescription Coverage: Primary Insurance: MEDICARE Secondary Insurance: AARP Prescription Coverage: yes Preferred Pharmacy: [place], [place] Primary Care Provider: Angie Alonzo MD [phone] Patient/Caregiver Goals of Treatment: to return home Potential Needs for Transition of Care: Rehab/SNF: may needs since she came in originally for a hip replacement Home Health: Darian ALEXANDER pended and routed DME: Cpap of her own in the room Dialysis: n/a Community Resources: n/a Transportation: her daughter Marion. She lives less than 30 minutes away. Anticipated Barriers to Discharge/Special Considerations: Needs PT/OT to see. Assessment: Extubated, some nausea, on NTG, on Bedrest Plan: PT/OT consult once she is cleared to see them A member of the Care Management team will continue to monitor progress, follow for continuity of care and assist with transition of care planning. Savage Lobo RN Pager: [phone] * Care Management - Savage Lobo RN - 03/06/2019 2:14 PM EDT The patient/senior human resources representative has been provided a list of Home Health Agencies/DME vendors which servetheir preferred geographic area. A letter describing our affiliations was reviewed with them and they were educated about their right to choose where referrals are placed. Patient requests referral to :: [facility]. PHONE: [phone] FAX: [phone] Expected date of discharge: next 2-3 days Referral routed to the Neuropsychology Medical Consultant for matching with agency/vendor and to provide any required information. * Op Note - Ryan Lynch MD - 03/05/2019 1:56 PM EDT 03/05/2019 Abimbola Dumas 1945 [id number] Preoperative Diagnosis: Coronary artery disease Stable Angina Postoperative Diagnosis: Coronary artery diseaseStable Angina Procedure: CABG times 4: SAM to LAD, SVG to om, svg to diag, svg to pda. Endoscopic vein harvest Surgeon: Ryan Lynch M.D. Chronometer Repairer: Giancarlo Anesthesia: General endotracheal anesthesia Drains: Two mediastinal tubes Pacing Wires: Two A-wires, two V-wires. EBL: 200 mL Findings: good targets, small jonatan and lad, nl function Procedure: The patient was taken to the Operating Room and had a radial A-line placed. All the proper lines and monitors were placed by Anesthesia. The patient was then prepped and draped in the normal sterile fashion. The right leg was used to harvest the greater saphenous vein using an endoscopic technique. A vertical incision was made on the medial aspect of the knee. The [employer] XB7 system was used to dissect out the vein anterior and posteriorly. All the side branches were cauterized. The vein was ligated distally and proximally. It was removed through the incision at the knee. The vein was flushed with heparinized saline in a reverse direction. All the side branches were clipped. The vein was untwistedand striped with a sterile pen. The leg had a JAMAL drain placed in it. It was irrigated out with antibiotic solution and closed immediately. The chest was opened along the midline. Cautery was used on the sternal edges and bone wax was lightly applied to the divided marrow of the sternum. The left destinee-sternum was elevated. The pleura were taken down, and the mammary artery was dissected free clipping all side branches. Heparin was given. Several minutes later the distal end of the mammary was clipped and tied on the chest wall, and the bleeding end had a bulldog placed across it. It was prepared for bypass by spatulating it open, injecting it with verapamil, and rolling it up into a nitroglycerin-soaked sponge. The JONATAN had excellent flow. The Rultract was removed. Two antibiotic-soaked towels were used to bumper the sternum. The sternal retractor was used to open the sternum. The overlying pericardium was opened in an inverse-T fashion and hung to the edge of the sternal retractor. Full-dose heparin was given. The aorta was cannulated. The right atrium had the venous cannula placed through the IVC. A retrograde was placed through the right atrium into the coronary sinus. The antegrade was place mid ascending aorta which also doubled as the root vent. With the ACT above 450, we went on bypass. The targets were inspected. The aorta was crossclamped and the heart was arrested with cold blood cardioplegia antegrade and retrograde. We drifted to 32 degrees Celsius. The bypasses were as follows: The pda target was identified and opened and in an end to side fashion the SVG was anastomosed witha running 7.0 prolene. Cardiopelegia was given down the graft and there were no leaks. The heart was filled and the graft was measured for length and trimmed. A punch was made in the aorta and a proximal anastomosis was created with a 6-0. A washer was used to identify the proximal. The same procedures was completed for om and then diag and cardioplegia was given between all bypasses. The jonatan was taken out of the left chest and a slit was created in the L side of the pericardium making sure to identify the L phrenic nerve. The jonatan was anastomosed to the LAD with a running 8-0 prolene. The bulldog was removed to test the graft then replaced. At this point, hotshots were given. The heart began beating in a sinus rhythm. The crossclamp was removed. The grafts were inspected. The heart was allowed to re-perfuse. The retrograde was removed and oversewn; so was the antegrade. An angled chest tube was placed behind the heart. Both chests were suctioned out, and the lungs were re-inflated. After a period of rewarming and allowing the heart to re-perfuse, we from bypass. The venous cannula was removed and the pursestring was tieddown and oversewn. Protamine was given. The aortic cannula was removed. Both pursestrings were tieddown and oversewn. We had no further bleeding. A straight chest tube was placed in front of the heart. Vanco paste was applied to the sternum. Interrupted steel cables were used to close the chest, several layers of Vicryl, and a 4-0 Monocryl were used to close the overlying soft tissue. Glue and clean dry sterile dressings were applied. The patient was transported to the CV on levo. All counts were correct. * OR Attestation - Ryan Lynch MD - 03/05/2019 1:56 PM EDT Attestation: Case Date: 03/05/2019 I performed this procedure without the involvement of a resident. Ryan Lynch MD 03/05/2019 * Brief Op Note - Ryan Lynch MD - 03/05/2019 1:55 PM EDT Brief Operative Note Patient Name: Abimbola Dumas : [id number] MR#: [id number] Case Date: 03/05/2019 Surgeon: Surgeon(s) and Role: * Ryan Lynch MD - Primary * Job Ferraro PA - Physician Chronometer Repairer Preoperative diagnosis: cad Postoperative diagnosis: cad Procedure(s) (LRB): @CABG, USING ARTERIAL GRAFT;SINGLE ARTERIAL GRAFT (WRVU 33.75) (N/A) @CABG; 3 VENOUS GRAFTS & ARTERIAL GRAFT (WRVU 10.49) (N/A) ENDOSCOPIC HARVEST VEIN(S) FOR CABG (WRVU 0.31) (N/A) Anesthesia: General Findings: good targets, small lad and jonatan, nl function Complications: none Estimated Blood Loss: * No values recorded between 03/05/2019 8:28 AM and 03/05/2019 11:43 AM * Specimens removed during surgery: None Fluids: Intraprocedure Crystalloid Total None PRBCs: none (See Anesthesia Record/Report for Other Blood Products) Urine Output: 550 mL Drains: 2 med tubes Disposition: taken directly to the ICU, intubated and in a critical condition. Condition: doing well without problems (Please see the Surgical Encounter Summary for any Implant and Specimen details pertinent to this patient.) Infection Bundle used? No documented in this encounter Plan of Treatment Scheduled Orders Name Type Priority Associated Diagnoses Orde r Schedule EKG 12 Lead ECG Routine S/P CABG (coronary artery bypass graft) Ordered: 03/09/2019 Scheduled Referrals Name Type Priority Associated Diagnoses Orde r Schedule Referral to Cardiac Rehab Outpatient Referral Routine S/P CABG (coronary artery bypass graft) Ordered: 03/09/2019 documented as of this encounter Procedures Procedure Name Priority Date/Time Associated Diagnosis Comments POCT GLUCOSE Routine 03/09/2019 11:31 AM EDT HC VENIPUNCTURE Routine 03/09/2019 7:49 AM EDT POCT GLUCOSE Routine 03/09/2019 7:32 AM EDT POCT GLUCOSE Routine 03/08/2019 8:13 PM EDT POCT GLUCOSE Routine 03/08/2019 4:37 PM EDT XR CHEST PA AND LATERAL Routine 03/08/2019 1:27 PM EDT POCT GLUCOSE Routine 03/08/2019 11:16 AM EDT POCT GLUCOSE Routine 03/08/2019 7:28 AM EDT HEMOGRAM Routine 03/08/2019 2:45 AM EDT DIFFERENTIAL, AUTOMATED Routine 03/08/2019 2:45 AM EDT HC CBC,PLT & AUTO DIFF Routine 9 2:45 AM EDT BASIC METABOLIC PANEL Routine 03/08/2019 2:45 AM EDT POCT GLUCOSE Routine 03/07/2019 6:06 PM EDT POCT GLUCOSE Routine 03/07/2019 11:53 AM EDT POCT GLUCOSE Routine 03/07/2019 6:01 AM EDT LAVENDER TUBE HOLD Routine 03/07/2019 6: 00 AM EDT HC POTASSIUM Routine 03/07/2019 6:00 AM EDT POCT GLUCOSE Routine 03/06/2019 5:38 PM EDT HC POTASSIUM Routine 03/06/2019 12:55 PM EDT POCT GLUCOSE Routine 03/06/2019 12:10 PM EDT POCT GLUCOSE Routine 03/06/2019 10:42 AM EDT POCT GLUCOSE Routine 03/06/2019 8:18 AM EDT POCT GLUCOSE Routine 03/06/2019 6:18 AM EDT POCT GLUCOSE Routine 03/06/2019 4:18 AM EDT HEMOGRAM Routine 03/06/2019 3:15 AM EDT DIFFERENTIAL, AUTOMATED Routine 03/06/2019 3:15 AM EDT HC CBC,PLT & AUTO DIFF Routine 9 3:15 AM EDT HC TROPONIN T Routine 03/06/2019 3:15 AM EDT BASIC METABOLIC PANEL Routine 03/06/2019 3:15 AM EDT POCT GLUCOSE Routine 03/06/2019 3:07 AM EDT POCT GLUCOSE Routine 03/06/2019 1:48 AM EDT POCT GLUCOSE Routine 03/06/2019 12:58 AM EDT POCT GLUCOSE Routine 03/05/2019 11:52 PM EDT POCT GLUCOSE Routine 03/05/2019 10:58 PM EDT EKG 12-LEAD STAT 03/05/2019 10:06 PM EDT S/P CABG (coronary artery bypass graft) POCT GLUCOSE Routine 03/05/2019 9:18 PM EDT HC POTASSIUM Routine 03/05/2019 9:15 PM EDT POCT GLUCOSE Routine 03/05/2019 7:26 PM EDT EXTUBATE Routine 03/05/2019 5:49 PM EDT BLOOD GAS ARTERIAL POC Routine 9 5:42 PM EDT XR CHEST ONE VIEW STAT 03/05/2019 4:3 3 PM EDT HC HEMOGLOBIN, BLOOD Routine 03/05/2019 4:10 PM EDT HC POTASSIUM Routine 03/05/2019 4:10 PM EDT POCT GLUCOSE Routine 03/05/2019 4:08 PM EDT BLOOD GAS ARTERIAL POC Routine 9 2:14 PM EDT POCT GLUCOSE Routine 03/05/2019 2:08 PM EDT XR CHEST ONE VIEW STAT 03/05/2019 12: 48 PM EDT BLOOD GAS ARTERIAL POC Routine 9 12:45 PM EDT TRANSFUSE 1 UNIT PLATELET PHERESIS Routine 03/05/2019 12:15 PM EDT PREPARE PLATELETS, APHERESIS STAT 03/05/2019 11:45 AM EDT BLOOD GAS ARTERIAL POC Routine 9 11:14 AM EDT HEMOGRAM STAT 03/05/2019 11:04 AM EDT DIFFERENTIAL, AUTOMATED STAT 03/05/2019 11:04 AM EDT HC PARTIAL THROMBOPLASTIN TIME STAT 03/05/2019 11:04 AM EDT HC PROTHROMBIN TIME STAT 03/05/2019 1 1:04 AM EDT HC FIBRINOGEN TITER STAT 03/05/2019 1 1:04 AM EDT HC CBC,PLT & AUTO DIFF STAT 9 11:04 AM EDT HC HEMOGLOBIN, BLOOD STAT 03/05/2019 10:38 AM EDT HC FIBRINOGEN TITER STAT 03/05/2019 1 0:38 AM EDT HC PLATELET COUNT STAT 03/05/2019 10: 38 AM EDT BLOOD GAS ARTERIAL POC Routine 9 10:29 AM EDT BLOOD GAS ARTERIAL POC Routine 9 9:56 AM EDT BLOOD GAS VENOUS POC Routine 03/05/2019 9:27 AM EDT BLOOD GAS ARTERIAL POC Routine 9 9:25 AM EDT BLOOD GAS ARTERIAL POC Routine 9 8:32 AM EDT Endoscopy W/Video-Asst Vein [place], Cabg ([id number]) 03/05/2019 7:29 AM EDT Coronary artery disease of [place] heart with stable angina pectoris, unspecified vessel or lesion type Cabg, Artery-Vein, Three ([id number]) 03/05/2019 7:29 AM EDT Coronary artery disease of [place] heart with stable angina pectoris, unspecified vessel or lesion type Cabg, Arterial, Single ([id number]) 03/05/2019 7:29 AM EDT Coronary artery disease of [place] heart with stable angina pectoris, unspecified vessel or lesion type POCT GLUCOSE Routine 03/05/2019 6:49 AM EDT PREPARE RBC STAT 03/05/2019 6:35 AM EDT documented in this encounter Results [...] report, please contact the number below. ? Electronically signed by: Leeanna Quintero [facility] ([phone]), at 04/07/2019 3:39 PM Narrative 04/07/2019 3:39 PM EDT EXAMINATION: XR [...] this report, please contact the number below. Electronically signed by: ERIN Anaya [facility]([phone]), at 04/07/2019 3:39 PM Ryan Lynch MD IMG DX ORDERABLES * POCT Glucose (03/09/2019 11:31 AM EDT) Glucose, POC 148 65 - 199 mg/dL [facility] Comment: Supplemental ranges: <140 mg/dL before meals <180 mg/dL all other times of the day Blood specimen (specimen) 03/09/2019 11:31 AM EDT 03/09/2019 11:31 AM EDT Ryan Lynch MD POINT OF CARE TEST ORDERABLES Performing Organization Address [facility] Co de Phone Number [facility] [place] [address] * Potassium (03/09/2019 7:49 AM EDT) Potassium 4.0 3.5 - 5.0 mmol/L [facility] Comment: Please note: ??Patients with WBC >100,000 may have falsely elevated Potassium levels. ??For accurate Potassium quantification in these patients send serum separator tube (gold top) for subsequent determinations. ??Contact the Clinical Chemistry Laboratory if there are any questions. Blood specimen (specimen) 03/09/2019 7:49 AM EDT 03/09/2019 7:56 AM EDT Narrative Resulting Agency Comment Spec In Lab Ryan Lynch MD CHEMISTRY ORDERABLE S Performing Organization Address [facility] Co de Phone Number [facility] [place] [address] * POCT Glucose (03/09/2019 7:32 AM EDT) Glucose, POC 124 65 - 199 mg/dL [facility] Comment: Supplemental ranges: <140 mg/dL before meals <180 mg/dL all other times of the day Blood specimen (specimen) 03/09/2019 7:32 AM EDT 03/09/2019 7:32 AM EDT Ryan Lynch MD POINT OF CARE TEST ORDERABLES Performing Organization Address [facility]/ZIP Co de Phone Number [facility] [place] [address] * POCT Glucose (03/08/2019 8:13 PM EDT) Glucose, POC 175 65 - 199 mg/dL [facility] Comment: Supplemental ranges: <140 mg/dL before meals <180 mg/dL all other times of the day Blood specimen (specimen) 03/08/2019 8:13 PM EDT 03/08/2019 8:13 PM EDT Ryan Lynch MD POINT OF CARE TEST ORDERABLES Performing Organization Address [facility] de Phone Number [facility] [place] [address] * POCT Glucose (03/08/2019 4:37 PM EDT) Glucose, POC 115 65 - 199 mg/dL [facility] Comment: Supplemental ranges: <140 mg/dL before meals <180 mg/dL all other times of the day Blood specimen (specimen) 03/08/2019 4:37 PM EDT 03/08/2019 4:37 PM EDT Ryan Lynch MD POINT OF CARE TEST ORDERABLES Performing Organization Address [facility] de Phone Number [facility] [place] [address] * XR Chest PA & Lateral (Generic) (03/08/2019 1:27 PM EDT) Anatomical Region Laterality Modality Chest N/A Digital Radiogra phy Impressions 03/08/2019 3:03 PM EDT 1. ??Interval removal of support equipment. No pneumothorax. 2. ??Small bilateral pleural effusions with mild bibasilar atelectasis, with improved aeration noted in the left lower lobe. Thank you for letting us participate in the care of this patient. For questions regarding this report, please contact the number below. ? Electronically signed by: Marta Olivas [facility] ([phone]), at 03/08/2019 3:03 PM Narrative 03/08/2019 3:03 PM EDT EXAMINATION: XR CHEST PA AND LATERAL (GENERIC) CLINICAL HISTORY: pod 3 cabg TECHNIQUE: Standing PA and lateral views of the chest COMPARISON: Portable AP 35 degrees upright chest radiograph 03/05/2019 at 1630 hours. FINDINGS: Interval extubation and removal of right IJ PA catheter and mediastinal drains. No pneumothorax is visualized. There are small bilateral pleural effusions and mild bibasilar atelectasis. The cardiomediastinal silhouette and pulmonary vasculature are unchanged. Median sternotomy changes, mediastinal clips, and postoperative changes in the left upper abdomen and left breast again noted.. Procedure Note Marta Olivas MD - 03/08/2019 EXAMINATION: XR CHEST PA AND LATERAL (GENERIC) CLINICAL HISTORY: pod 3 cabg TECHNIQUE: Standing PA and lateral views of the chest COMPARISON: Portable AP 35 degrees upright chest radiograph 03/05/2019 at 1630 hours. FINDINGS: Interval extubation and removal of right IJ PA catheter and mediastinaldrains. No pneumothorax is visualized. There are small bilateral pleural effusionsand mild bibasilar atelectasis. The cardiomediastinal silhouette andpulmonary vasculature are unchanged. Median sternotomy changes, mediastinal clips,and postoperative changes in the left upper abdomen and left breast againnoted.. IMPRESSION 1. Interval removal of support equipment. No pneumothorax. 2. Small bilateral pleural effusions with mild bibasilar atelectasis,with improved aeration noted in the left lower lobe. Thank you for letting us participate in the care of this patient. Forquestions regarding this report, please contact the number below. Ryan Lynch MD IMG DX ORDERABLES * POCT Glucose (03/08/2019 11:16 AM EDT) Glucose, POC 170 65 - 199 mg/dL [facility] Comment: Supplemental ranges: <140 mg/dL before meals <180 mg/dL all other times of the day Blood specimen (specimen) 03/08/2019 11:16 AM EDT 03/08/2019 11:16 AM EDT Ryan Lynch MD POINT OF CARE TEST ORDERABLES Performing Organization Address City/[facility] Co de Phone Number [facility] [place] [address] * POCT Glucose (03/08/2019 7:28 AM EDT) Glucose, POC 137 65 - 199 mg/dL [facility] Comment: Supplemental ranges: <140 mg/dL before meals <180 mg/dL all other times of the day Blood specimen (specimen) 03/08/2019 7:28 AM EDT 03/08/2019 7:28 AM EDT Ryan Lynch MD POINT OF CARE TEST ORDERABLES Performing Organization Address City/[facility] Co de Phone Number [facility] [place] [address] * (ABNORMAL) Differential, Automated (03/08/2019 2:45 AM EDT) Neutrophil % 70.8 % [facility] Neutrophil Absolute 8.88(H) 1.70 - 6.10 x10(3)/mc L [facility] Lymph % 14.5 % [facility] Lymphocytes Abs 1.8 0.9 - 3.2 x10(3)/mc L [facility] Monocyte % 10.5 % [facility] Monocyte Abs 1.3(H) 0.3 - 0.9 x10(3)/mc L [facility] Eos % 3.0 % [facility] Eosinophils Abs 0.4 0.0 - 0.4 x10(3)/ L [facility] Basophil % 0.6 % [facility] Baso Absolute 0.1 0.0 - 0.1 x10(3)/[facility] Immature Gran % 0.60 % [facility] Comment: Immature granulocytes(IG's)percentage and absolute count will include metamyelocytes, myelocytes, and promyelocytes. Blood smears from CBCs yielding IG's will be scanned manually for concordance. If this scan disagrees with the automated IG or if promyelocytes are noted, a manual differential will be performed. Immature Gran Absolute 0.07(H) 0.00 - 0.04 x10(3)/[facility] Blood specimen (specimen) 03/08/2019 2:45 AM EDT 03/08/2019 2:51 AM EDT Narrative Resulting Agency Comment Spec In Lab Jose BUCKNER HEMATOLOGY ORDERABLE S [facility] [place] [address] * (ABNORMAL) Hemogram (03/08/2019 2:45 AM EDT) White Blood Cell 12.6(H) 4.0 - 9.5 x10(3)/[facility] Red Blood Cell 3.18(L) 4.00 - 5.21 x10(6)/ L [facility] Hemoglobin 9.9(L) 11.7 - 15.5 gm/dL [facility] Hematocrit 29.3(L) 35.7 - 45.8 % [facility] Mean Cell Volume 92.1 82.6 - 94.[address] [facility] Mean Cell Hemoglobin 31.1 27.1 - 32.[address] [facility] Mean Cell Hemoglobin Concentration 33.8 31.7 - 35.0 gm/dL [facility] Platelet 203 145 - 357 x10(3)/mc L [facility] RDW Standard Deviation 48.7(H) 37.0 - 46.[address] [facility] RDW coefficient of variation 14.2(H) 11.5 - 14.1 % [facility] Mean Platelet Volume 8.8 7.6 - 12.[address] [facility] NRBC% auto 0.0 % [facility] NRBC Absolute 0.000 0.000 - 0.000 x10(3)/mc L [facility] Blood specimen (specimen) 03/08/2019 2:45 AM EDT 03/08/2019 2:51 AM EDT Narrative Resulting Agency Comment Spec In Lab Jose BUCKNER HEMATOLOGY ORDERABLE S Performing Organization Address City/State/[facility] Co de Phone Number [facility] [place] [address] * (ABNORMAL) Basic Metabolic Panel (non-fasting) (03/08/2019 2:45 AM EDT) Glucose 141 65 - 199 mg/dL [facility] Comment:Diabetes: >=200 mg/d L plus symptoms Blood Urea Nitrogen 24(H) 8 - 18 mg/dL [facility] Creatinine 0.56(L) 0.70 - 1.20 mg/dL [facility] Sodium 137 135 - 145 mmol/L [facility] Potassium 3.7 3.5 - 5.0 mmol/L [facility] Comment: Please note: ??Patients with WBC >100,000 may have falsely elevated Potassium levels. ??For accurate Potassium quantification in these patients send serum separator tube (gold top) for subsequent determinations. ??Contact the Clinical Chemistry Laboratory if there are any questions. Chloride 102 98 - 107 mmol/L [facility] Carbon Dioxide 25 22 - 31 mmol/L [facility] Anion Gap 10 5 - 15 mmol/L [facility] Calcium 7.8(L) 8.5 - 10.5 mg/dL [facility] Est Glomerular Filtration Rate 91 >=60 mL/min/1. 73 m?? [facility] Comment: The eGFR was calculated using the CKD-EPI equation. As with all creatinine based estimates of kidney function, eGFR values calculated with the CKD-EPI equation are not accurate in patients with acute kidney failure, extremes of body mass or the acutely ill. [email or web address]ULSAnkf eGFR 106 >=60 mL/min/1. 73 m?? [facility] Comment: The eGFR was calculated using the CKD-EPI equation. As with all creatinine based estimates of kidney function, eGFR values calculated with the CKD-EPI equation are not accurate in patients with acute kidney failure, extremes of body mass or the acutely ill. [email or web address] Blood specimen (specimen) 03/08/2019 2:45 AM EDT 03/08/2019 2:51 AM EDT Narrative Resulting Agency Comment Spec In Lab Ryan Lynch MD CHEMISTRY ORDERABLE S Performing Organization Address City/[facility]/ZIP Co de Phone Number [facility] [place] [address] * (ABNORMAL) POCT Glucose (03/07/2019 6:06 PM EDT) Glucose, POC 214(H) 65 - 199 mg/dL [facility] Comment: Supplemental ranges: <140 mg/dL before meals <180 mg/dL all other times of the day Blood specimen (specimen) 03/07/2019 6:06 PM EDT 03/07/2019 6:06 PM EDT Ryan Lynch MD POINT OF CARE TEST ORDERABLES [facility] [place] [address] * POCT Glucose (03/07/2019 11:53 AM EDT) Glucose, POC 155 65 - 199 mg/dL [facility] Comment: Supplemental ranges: <140 mg/dL before meals <180 mg/dL all other times of the day Blood specimen (specimen) 03/07/2019 11:53 AM EDT 03/07/2019 11:53 AM EDT Ryan Lynch MD POINT OF CARE TEST ORDERABLES Performing Organization Address City/[facility]/ZIP Co de Phone Number [facility] [place] [address] * POCT Glucose (03/07/2019 6:01 AM EDT) Glucose, POC 154 65 - 199 mg/dL [facility] Comment: Supplemental ranges: <140 mg/dL before meals <180 mg/dL all other times of the day Blood specimen (specimen) 03/07/2019 6:01 AM EDT 03/07/2019 6:01 AM EDT Ryna Lynch MD POINT OF CARE TEST ORDERABLES Performing Organization Address City/[facility]/ZIP Co de Phone Number [facility] [place] [address] * Lavender Tube HOLD (03/07/2019 6:00 AM EDT) Lavender Hold Sample in lab. [facility] Blood specimen (specimen) Venous Draw / Unknown 03/07/2019 6:00 AM EDT 03/07/2019 6:11 AM EDT Jose BUCKNER HEMATOLOGY ORDERABLE S Performing Organization Address City/[facility]/ZIP Co de Phone Number [facility] [place] [address] * Potassium (03/07/2019 6:00 AM EDT) Potassium 3.7 3.5 - 5.0 mmol/L [facility] Comment: Please note: ??Patients with WBC >100,000 may have falsely elevated Potassium levels. ??For accurate Potassium quantification in these patients send serum separator tube (gold top) for subsequent determinations. ??Contact the Clinical Chemistry Laboratory if there are any questions. Blood specimen (specimen) 03/07/2019 6:00 AM EDT 03/07/2019 6:11 AM EDT Narrative Resulting Agency Comment Spec In Lab Ryan Lynch MD CHEMISTRY ORDERABLE S Performing Organization Address City/[facility]/ZIP Co de Phone Number [facility] [place] [address] * POCT Glucose (03/06/2019 5:38 PM EDT) Glucose, POC 143 65 - 199 mg/dL [facility] Comment: Supplemental ranges: <140 mg/dL before meals <180 mg/dL all other times of the day Blood specimen (specimen) 03/06/2019 5:38 PM EDT 03/06/2019 5:38 PM EDT Ryan Lynch MD POINT OF CARE TEST ORDERABLES Performing Organization Address [facility] Co de Phone Number [facility] [place] [address] * Potassium (03/06/2019 12:55 PM EDT) Potassium 3.8 3.5 - 5.0 mmol/L [facility] Comment: Please note: ??Patients with WBC >100,000 may have falsely elevated Potassium levels. ??For accurate Potassium quantification in these patients send serum separator tube (gold top) for subsequent determinations. ??Contact the Clinical Chemistry Laboratory if there are any questions. Blood specimen (specimen) 03/06/2019 12:55 PM EDT 03/06/2019 1:17 PM EDT Narrative Resulting Agency Comment Spec In Lab Ryan Lynch MD CHEMISTRY ORDERABLE S Performing Organization Address City/[facility]/ZIP Co de Phone Number [facility] [place] [address] * POCT Glucose (03/06/2019 12:10 PM EDT) Glucose, POC 131 65 - 199 mg/dL [facility] Comment: Supplemental ranges: <140 mg/dL before meals <180 mg/dL all other times of the day Blood specimen (specimen) 03/06/2019 12:10 PM EDT 03/06/2019 12:10 PM EDT Ryan Lynch MD POINT OF CARE TEST ORDERABLES [facility] [place] [address] * POCT Glucose (03/06/2019 10:42 AM EDT) Glucose, POC 143 65 - 199 mg/dL [facility] Comment: Supplemental ranges: <140 mg/dL before meals <180 mg/dL all other times of the day Blood specimen (specimen) 03/06/2019 10:42 AM EDT 03/06/2019 10:42 AM EDT Ryan Lynch MD POINT OF CARE TEST ORDERABLES Performing Organization Address City/[facility]/ZIP Co de Phone Number [facility] [place] [address] * POCT Glucose (03/06/2019 8:18 AM EDT) Glucose, POC 144 65 - 199 mg/dL [facility] Comment: Supplemental ranges: <140 mg/dL before meals <180 mg/dL all other times of the day Blood specimen (specimen) 03/06/2019 8:18 AM EDT 03/06/2019 8:18 AM EDT Ryan Lynch MD POINT OF CARE TEST ORDERABLES [facility] [place] [address] * POCT Glucose (03/06/2019 6:18 AM EDT) Glucose, POC 141 65 - 199 mg/dL [facility] Comment: Supplemental ranges: <140 mg/dL before meals <180 mg/dL all other times of the day Blood specimen (specimen) 03/06/2019 6:18 AM EDT 03/06/2019 6:18 AM EDT Ryan Lynch MD POINT OF CARE TEST ORDERABLES Performing Organization Address City/[facility]/ZIP Co de Phone Number [facility] [place] [address] * POCT Glucose (03/06/2019 4:18 AM EDT) Glucose, POC 158 65 - 199 mg/dL [facility] Comment: Supplemental ranges: <140 mg/dL before meals <180 mg/dL all other times of the day Blood specimen (specimen) 03/06/2019 4:18 AM EDT 03/06/2019 4:18 AM EDT Ryan Lynch MD POINT OF CARE TEST ORDERABLES Performing Organization Address City/[facility]/ZIP Co de Phone Number [facility] [place] [address] * (ABNORMAL) Differential, Automated (03/06/2019 3:15 AM EDT) Neutrophil % 83.4 % [facility] Neutrophil Absolute 10.39(H) 1.70 - 6.10 x10(3)/mc L [facility] Lymph % 6.2 % [facility] Lymphocytes Abs 0.8(L) 0.9 - 3.2 x10(3)/mc L [facility] Monocyte % 9.7 % [facility] Monocyte Abs 1.2(H) 0.3 - 0.9 x10(3)/mc L [facility] Eos % 0.0 % [facility] Eosinophils Abs 0.0 0.0 - 0.4 x10(3)/mc L [facility] Basophil % 0.2 % [facility] Baso Absolute 0.0 0.0 - 0.1 x10(3)/ L [facility] Immature Gran % 0.50 % [facility] Comment: Immature granulocytes(IG's)percentage and absolute count will include metamyelocytes, myelocytes, and promyelocytes. Blood smears from CBCs yielding IG's will be scanned manually for concordance. If this scan disagrees with the automated IG or if promyelocytes are noted, a manual differential will be performed. Immature Gran Absolute 0.06(H) 0.00 - 0.04 x10(3)/ L [facility] Blood specimen (specimen) 03/06/2019 3:15 AM EDT 03/06/2019 3:21 AM EDT Narrative Resulting Agency Comment Spec In Lab Job BUCKNER HEMATOLOGY ORDERABLE S Performing Organization Address City/State/[facility] Co de Phone Number [facility] [place] [address] * (ABNORMAL) Hemogram (03/06/2019 3:15 AM EDT) White Blood Cell 12.5(H) 4.0 - 9.5 x10(3)/ L [facility] Red Blood Cell 3.21(L) 4.00 - 5.21 x10(6)/mc L [facility] Hemoglobin 9.9(L) 11.7 - 15.5 gm/dL [facility] Hematocrit 29.7(L) 35.7 - 45.8 % [facility] Mean Cell Volume 92.5 82.6 - 94.[address] [facility] Mean Cell Hemoglobin 30.8 27.1 - 32.[address] [facility] Mean Cell Hemoglobin Concentration 33.3 31.7 - 35.0 gm/dL [facility] Platelet 198 145 - 357 x10(3)/ L [facility] RDW Standard Deviation 47.0(H) 37.0 - 46.[address] [facility] RDW coefficient of variation 14.0 11.5 - 14.1 % [facility] Mean Platelet Volume 8.8 7.6 - 12.[address] [facility] NRBC% auto 0.0 % [facility] NRBC Absolute 0.000 0.000 - 0.000 x10(3)/mc L [facility] Blood specimen (specimen) 03/06/2019 3:15 AM EDT 03/06/2019 3:21 AM EDT Narrative Resulting Agency Comment Spec In Lab Job BUCKNER HEMATOLOGY ORDERABLE S [facility] [place] [address] * (ABNORMAL) Basic Metabolic Panel (non-fasting) (03/06/2019 3:15 AM EDT) Glucose 165 65 - 199 mg/dL [facility] Comment:Diabetes: >=200 mg/d L plus symptoms Blood Urea Nitrogen 17 8 - 18 mg/dL [facility] Creatinine 0.54(L) 0.70 - 1.20 mg/dL [facility] Sodium 138 135 - 145 mmol/L [facility] Potassium 4.3 3.5 - 5.0 mmol/L [facility] Comment: Please note: ??Patients with WBC >100,000 may have falsely elevated Potassium levels. ??For accurate Potassium quantification in these patients send serum separator tube (gold top) for subsequent determinations. ??Contact the Clinical Chemistry Laboratory if there are any questions. Chloride 106 98 - 107 mmol/L [facility] Carbon Dioxide 22 22 - 31 mmol/L [facility] Anion Gap 10 5 - 15 mmol/L [facility] Calcium 7.2(L) 8.5 - 10.5 mg/dL [facility] Est Glomerular Filtration Rate 92 >=60 mL/min/1. 73 m?? [facility] Comment: The eGFR was calculated using the CKD-EPI equation. As with all creatinine based estimates of kidney function, eGFR values calculated with the CKD-EPI equation are not accurate in patients with acute kidney failure, extremes of body mass or the acutely ill. [email or web address]ULSAnkf eGFR 107 >=60 mL/min/1. 73 m?? [facility] Comment: The eGFR was calculated using the CKD-EPI equation. As with all creatinine based estimates of kidney function, eGFR values calculated with the CKD-EPI equation are not accurate in patients with acute kidney failure, extremes of body mass or the acutely ill. [email or web address]SAnkf Blood specimen (specimen) 03/06/2019 3:15 AM EDT 03/06/2019 3:21 AM EDT Narrative Resulting Agency Comment Spec In Lab Ryan Lynch MD CHEMISTRY ORDERABLE S [facility] [place] [address] * (ABNORMAL) Troponin (03/06/2019 3:15 AM EDT) Troponin-T 0.55(H) 0.00 - 0.00 ng/mL [facility] Comment: The 99th percentile for Troponin T is less than 0.01 ng/mL, any detectable cTnT concentration using this assay should be considered elevated. According to the third universal definition of myocardial infarction the following criteria with a clinical presentation consistent with acute myocardial ischemia meets the diagnosis for a myocardial infarction (MD). Detection of a rise and/or fall of cTnT, with at least one value greater than the 99th percentile (> or = 0.01) and with at least one of the following ?? Symptoms of ischemia ?? New or presumed new significant NS-[id number] wave (ST-T) changes or new left bundle branch block (LBBB) ?? Development of pathologic Q waves in the ECG ?? Imaging evidence of new loss of viable myocardium or new regional wall motion abnormality ?? Identification of an intracoronary thrombus by angiography or autopsy Samples for cTnT testing should be obtained serially upon first assessment and again 3 to 6 hours later. If the clinical suspicion is high and previous samples have been negative an additional sample may be indicated. Reference: Third [place] Definition of Myocardial Infarction. Journal of the [place] [employer] 2012;60:1581-98 Blood specimen (specimen) 03/06/2019 3:15 AM EDT 03/06/2019 3:21 AM EDT Narrative Resulting Agency Comment Spec In Lab Ryan Lynch MD CHEMISTRY ORDERABLE S Performing Organization Address City/[facility]/ZIP Co de Phone Number [facility] [place] [address] * POCT Glucose (03/06/2019 3:07 AM EDT) Glucose, POC 150 65 - 199 mg/dL [facility] Comment: Supplemental ranges: <140 mg/dL before meals <180 mg/dL all other times of the day Blood specimen (specimen) 03/06/2019 3:07 AM EDT 03/06/2019 3:07 AM EDT Ryan Lynch MD POINT OF CARE TEST ORDERABLES Performing Organization Address [facility] Co de Phone Number [facility] [place] [address] * POCT Glucose (03/06/2019 1:48 AM EDT) Glucose, POC 132 65 - 199 mg/dL [facility] Comment: Supplemental ranges: <140 mg/dL before meals <180 mg/dL all other times of the day Blood specimen (specimen) 03/06/2019 1:48 AM EDT 03/06/2019 1:48 AM EDT Ryan Lynch MD POINT OF CARE TEST ORDERABLES Performing Organization Address [place] [facility] Co de Phone Number [facility] [place] [address] * POCT Glucose (03/06/2019 12:58 AM EDT) Glucose, POC 145 65 - 199 mg/dL [facility] Comment: Supplemental ranges: <140 mg/dL before meals <180 mg/dL all other times of the day Blood specimen (specimen) 03/06/2019 12:58 AM EDT 03/06/2019 12:58 AM EDT Ryan Lynch MD POINT OF CARE TEST ORDERABLES Performing Organization Address City/[facility] Co de Phone Number [facility] [place] [address] * POCT Glucose (03/05/2019 11:52 PM EDT) Glucose, POC 183 65 - 199 mg/dL [facility] Comment: Supplemental ranges: <140 mg/dL before meals <180 mg/dL all other times of the day Blood specimen (specimen) 03/05/2019 11:52 PM EDT 03/05/2019 11:52 PM EDT Ryan Lynch MD POINT OF CARE TEST ORDERABLES Performing Organization Address [facility] Co de Phone Number [facility] [place] [address] * POCT Glucose (03/05/2019 10:58 PM EDT) Glucose, POC 150 65 - 199 mg/dL [facility] Comment: Supplemental ranges: <140 mg/dL before meals <180 mg/dL all other times of the day Blood specimen (specimen) 03/05/2019 10:58 PM EDT 03/05/2019 10:58 PM EDT Ryan Lynch MD POINT OF CARE TEST ORDERABLES Performing Organization Address City/[facility] Co de Phone Number [facility] [place] [address] * EKG 12 Lead (03/05/2019 10:06 PM EDT) Ventricular rate 76 BPM MUSE SYSTEM Atrial Rate 76 BPM MUSE SYSTEM P-R Interval 180 ms MUSE SYSTEM QRS Duration 92 ms MUSE SYSTEM Q-T Interval 412 ms MUSE SYSTEM QTC Calculated (Bezet) 463 ms MUSE SYSTEM Calculated P [place] 51 degrees MUSE SYSTEM Calculated R [place] -7 degrees MUSE SYSTEM Calculated T [place] 39 degrees MUSE SYSTEM INTERPRETATION Normal sinus rhythm ST elevation consider lateral injury or acute infarct Abnormal ECG When compared with ECG of 24-FEB-2019 09:58, ST elevation now present in Lateral leads Confirmed by MD Yanes Daniel ([id number]) on 03/06/2019 4:58:41 PM MUSE SYSTEM 03/05/2019 10:0 6 PM EDT 03/06/2019 4:58 PM EDT Ryan Lynch MD ECG ORDERABLES MUSE SYSTEM * POCT Glucose (03/05/2019 9:18 PM EDT) Glucose, POC 149 65 - 199 mg/dL [facility] Comment: Supplemental ranges: <140 mg/dL before meals <180 mg/dL all other times of the day Blood specimen (specimen) 03/05/2019 9:18 PM EDT 03/05/2019 9:18 PM EDT Ryan Lynch MD POINT OF CARE TEST ORDERABLES Performing Organization Address City/[facility]/ZIP Co de Phone Number [facility] [place] [address] * Potassium (03/05/2019 9:15 PM EDT) Potassium 4.0 3.5 - 5.0 mmol/L [facility] Comment: Please note: ??Patients with WBC >100,000 may have falsely elevated Potassium levels. ??For accurate Potassium quantification in these patients send serum separator tube (gold top) for subsequent determinations. ??Contact the Clinical Chemistry Laboratory if there are any questions. Blood specimen (specimen) 03/05/2019 9:15 PM EDT 03/05/2019 9:36 PM EDT Narrative Resulting Agency Comment Spec In Lab Ryan Lynch MD CHEMISTRY ORDERABLE S [facility] [place] [address] * Transfuse 1 unit platelets, apheresis (03/05/2019 8:55 PM EDT) Ryan Lynch MD NURSING TREATMENT O RDERABLES - BLOOD ADMIN * Transfuse 1 unit platelets, apheresis (03/05/2019 8:55 PM EDT) Ryan Lynch MD NURSING TREATMENT O RDERABLES - BLOOD ADMIN * POCT Glucose (03/05/2019 7:26 PM EDT) [facility] Glucose, POC 150 65 - 199 mg/dL [facility] Comment: Supplemental ranges: <140 mg/dL before meals <180 mg/dL all other times of the day Blood specimen (specimen) 03/05/2019 7:26 PM EDT 03/05/2019 7:26 PM EDT Ryan Lynch MD POINT OF CARE TEST ORDERABLES Performing Organization Address [facility]/ZIP Co de Phone Number [facility] [place] [address] * (ABNORMAL) BLOOD GAS 2 ARTERIAL (03/05/2019 5:42 PM EDT) pH, Arterial 7.34(L) 7.35 - 7.45 [facility] PCO2, Arterial 38 35 - [address] [facility] PO2, Arterial 121(H) 85 - [address] [facility] Bicarbonate, Arterial 20.4 20.0 - 26.0 mmol/L [facility] Base Excess, Arterial -5.3(L) -3.0 - 3.0 mmol/L [facility] Hgb Blood Gas 11.3(L) 11.7 - 15.5 gm/dL [facility] Oxyhemoglobin, Arterial 96.8 94.0 - 97.0 % [facility] Carboxyhemoglob in, Arterial 0.3 % [facility] Comment: Nonsmokers: 0.5-1.5% COHB Smokers: Variable, but usually less than 10% Toxic: 20-30% COHB Lethal: Greater than 60% COHB Methemoglobin, Arterial 0.6 <=1.5 % [facility] Na Whole Blood 138 135 - 145 mmol/L [facility] K Whole Blood 3.7 3.5 - 5.0 mmol/L [facility] Comment: Please note: Patients with WBC >100,000 may have falsely elevated Potassium levels. Contact the Clinical Chemistry Laboratory if there are any questions. ICa Whole Blood 1.07(L) 1.15 - 1.33 mmol/L [facility] Comment: Note: ??Total bilirubin higher than 20 mg/dL may lead to falsely low ionized calcium. CL Whole Blood 108(H) 98 - 107 mmol/L [facility] Gluc Whole Bld 148 65 - 199 mg/dL [facility] Comment:Diabetes: >=200 mg/d L plus symptoms. Lactate WB 2.8(H) 0.5 - 2.2 mmol/L [facility] FIO2 Art 40 % [facility] PF Ratio Art 302 [facility] Blood specimen (specimen) 03/05/2019 5:42 PM EDT 03/05/2019 5:42 PM EDT Ryan Lynch MD POINT OF CARE TEST ORDERABLES [facility] [place] [address] * XR Chest One View (03/05/2019 4:33 PM EDT) Anatomical Region Laterality Modality Chest N/A Digital Radiogra phy Impressions 03/05/2019 4:35 PM EDT Opacity at left base consistent with atelectasis with or without effusion. No pneumothorax. Thank you for letting us participate in the care of this patient. For questions regarding this report, please contact the number below. ? Electronically signed by: Leeanna Quintero [facility] ([phone]), at 03/05/2019 4:35 PM Narrative 03/05/2019 4:35 PM EDT EXAMINATION: XR CHEST ONE VIEW CLINICAL HISTORY: chest tube output TECHNIQUE: Portable AP chest radiograph on ??03/05/2019 at 1630 hours. COMPARISON: 03/05/2019 at 1245 hours. FINDINGS: Equipment in unchanged position. No pneumothorax seen. Left base atelectasis with or without small effusion. Right lung appears clear. Unchanged cardiomediastinal silhouette. Procedure Note Leeanna Quintero MD - 03/05/2019 EXAMINATION: XR CHEST ONE VIEW CLINICAL HISTORY: chest tube output TECHNIQUE: Portable AP chest radiograph on 03/05/2019 at 1630 hours. COMPARISON: 03/05/2019 at 1245 hours. FINDINGS: Equipment in unchanged position. No pneumothorax seen. Leftbase atelectasis with or without small effusion. Right lung appears clear.Unchanged cardiomediastinal silhouette. IMPRESSION Opacity at left base consistent with atelectasis with or without effusion. No pneumothorax. Thank you for letting us participate in the care of this patient. Forquestions regarding this report, please contact the number below. Electronically signed by: Leeanna Quintero [facility]([phone]), at 03/05/2019 4:35 PM Ryan Lynch MD IMG DX ORDERABLES * (ABNORMAL) Hemoglobin (03/05/2019 4:10 PM EDT) Hemoglobin 10.9(L) 11.7 - 15.5 gm/dL [facility] Blood specimen (specimen) 03/05/2019 4:10 PM EDT 03/05/2019 4:15 PM EDT Narrative Resulting Agency Comment Spec In Lab Ryan Lynch MD HEMATOLOGY ORDERABL ES Performing Organization Address [facility] Co de Phone Number [facility] [place] [address] * Potassium (03/05/2019 4:10 PM EDT) Potassium 4.2 3.5 - 5.0 mmol/L [facility] Comment: Please note: ??Patients with WBC >100,000 may have falsely elevated Potassium levels. ??For accurate Potassium quantification in these patients send serum separator tube (gold top) for subsequent determinations. ??Contact the Clinical Chemistry Laboratory if there are any questions. Blood specimen (specimen) 03/05/2019 4:10 PM EDT 03/05/2019 4:15 PM EDT Narrative Resulting Agency Comment Spec In Lab Ryan Lynch MD CHEMISTRY ORDERABLE S Performing Organization Address [facility] Co de Phone Number [facility] [place] [address] * POCT Glucose (03/05/2019 4:08 PM EDT) Glucose, POC 153 65 - 199 mg/dL [facility] Comment: Supplemental ranges: <140 mg/dL before meals <180 mg/dL all other times of the day Blood specimen (specimen) 03/05/2019 4:08 PM EDT 03/05/2019 4:08 PM EDT Ryan Lynch MD POINT OF CARE TEST ORDERABLES Performing Organization Address [facility] Co de Phone Number [facility] [place] [address] * (ABNORMAL) BLOOD GAS 2 ARTERIAL (03/05/2019 2:14 PM EDT) pH, Arterial 7.34(L) 7.35 - 7.45 [facility] PCO2, Arterial 42 35 - [address] [facility] PO2, Arterial 121(H) 85 - [address] [facility] Bicarbonate, Arterial 22.0 20.0 - 26.0 mmol/L [facility] Base Excess, Arterial -3.7(L) -3.0 - 3.0 mmol/L [facility] Hgb Blood Gas 12.0 11.7 - 15.5 gm/dL [facility] Oxyhemoglobin, Arterial 96.8 94.0 - 97.0 % [facility] Carboxyhemoglob in, Arterial 0.3 % [facility] Comment: Nonsmokers: 0.5-1.5% COHB Smokers: Variable, but usually less than 10% Toxic: 20-30% COHB Lethal: Greater than 60% COHB Methemoglobin, Arterial 0.7 <=1.5 % [facility] Na Whole Blood 136 135 - 145 mmol/L [facility] K Whole Blood 4.3 3.5 - 5.0 mmol/L [facility] Comment: Please note: Patients with WBC >100,000 may have falsely elevated Potassium levels. Contact the Clinical Chemistry Laboratory if there are any questions. ICa Whole Blood 1.06(L) 1.15 - 1.33 mmol/L [facility] Comment: Note: ??Total bilirubin higher than 20 mg/dL may lead to falsely low ionized calcium. CL Whole Blood 107 98 - 107 mmol/L [facility] Gluc Whole Bld 182 65 - 199 mg/dL [facility] Comment:Diabetes: >=200 mg/d L plus symptoms. Lactate WB 2.6(H) 0.5 - 2.2 mmol/L [facility] FIO2 Art 40 % [facility] PF Ratio Art 302 [facility] Blood specimen (specimen) 03/05/2019 2:14 PM EDT 03/05/2019 2:14 PM EDT Ryan Lynch MD POINT OF CARE TEST ORDERABLES Performing Organization Address [facility] Co de Phone Number [facility] [place] [address] * POCT Glucose (03/05/2019 2:08 PM EDT) Glucose, POC 183 65 - 199 mg/dL [facility] Comment: Supplemental ranges: <140 mg/dL before meals <180 mg/dL all other times of the day Blood specimen (specimen) 03/05/2019 2:08 PM EDT 03/05/2019 2:08 PM EDT Ryan Lynch MD POINT OF CARE TEST ORDERABLES Performing Organization Address [facility] Co de Phone Number [facility] [place] [address] * XR Chest One View (03/05/2019 12:48 PM EDT) Anatomical Region Laterality Modality Chest N/A Digital Radiogra phy Impressions 03/05/2019 12:57 PM EDT Mild pulmonary edema. Thank you for letting us participate in the care of this patient. For questions regarding this report, please contact the number below. ? Electronically signed by: Abiel Jernigan [facility] ([phone]), at 03/05/2019 12:57 PM Narrative 03/05/2019 12:57 PM EDT EXAMINATION: XR CHEST ONE VIEW CLINICAL HISTORY: s/p CABG TECHNIQUE: AP view of the chest COMPARISON: February 24, 2019 FINDINGS: There are is prominence and indistinctness of the pulmonary vasculature. Postoperative changes are now present. Sternotomy wires and mediastinal clips are in place. There is a pulmonary artery catheter placed through the right internal jugular vein which extends to the pulmonary outflow tract. Chest tubes are present. No pneumothorax is seen. An endotracheal tube is in a satisfactory position. Again seen are multiple nannette projecting in the left breast. Procedure Note Abiel Jernigan MD - 03/05/2019 EXAMINATION: XR CHEST ONE VIEW CLINICAL HISTORY: s/p CABG TECHNIQUE: AP view of the chest COMPARISON: February 24, 2019 FINDINGS: There are is prominence and indistinctness of the pulmonary vasculature. Postoperative changes are now present. Sternotomy wires and mediastinalclips are in place. There is a pulmonary artery catheter placed through theright internal jugular vein which extends to the pulmonary outflow tract. Chesttubes are present. No pneumothorax is seen. An endotracheal tube is in asatisfactory position. Again seen are multiple nannette projecting in the left breast. IMPRESSION Mild pulmonary edema. Thank you for letting us participate in the care of this patient. Forquestions regarding this report, please contact the number below. Electronically signed by: Abiel Jernigan [facility]([phone]), at 03/05/2019 12:57 PM Ryan Lynch MD IMG DX ORDERABLES * (ABNORMAL) BLOOD GAS 2 ARTERIAL (03/05/2019 12:45 PM EDT) pH, Arterial 7.33(L) 7.35 - 7.45 [facility] PCO2, Arterial 42 35 - [address] [facility] PO2, Arterial 178(H) 85 - [address] [facility] Bicarbonate, Arterial 21.7 20.0 - 26.0 mmol/L [facility] Base Excess, Arterial -4.3(L) -3.0 - 3.0 mmol/L [facility] Hgb Blood Gas 11.2(L) 11.7 - 15.5 gm/dL [facility] Oxyhemoglobin, Arterial 97.6(H) 94.0 - 97.0 % [facility] Carboxyhemoglob in, Arterial 0.3 % [facility] Comment: Nonsmokers: 0.5-1.5% COHB Smokers: Variable, but usually less than 10% Toxic: 20-30% COHB Lethal: Greater than 60% COHB Methemoglobin, Arterial 0.8 <=1.5 % [facility] Na Whole Blood 137 135 - 145 mmol/L [facility] K Whole Blood 3.2(L) 3.5 - 5.0 mmol/L [facility] Comment: Please note: Patients with WBC >100,000 may have falsely elevated Potassium levels. Contact the Clinical Chemistry Laboratory if there are any questions. ICa Whole Blood 1.01(L) 1.15 - 1.33 mmol/L [facility] Comment: Note: ??Total bilirubin higher than 20 mg/dL may lead to falsely low ionized calcium. CL Whole Blood 106 98 - 107 mmol/L [facility] Gluc Whole Bld 197 65 - 199 mg/dL [facility] Comment:Diabetes: >=200 mg/d L plus symptoms. Lactate WB 2.9(H) 0.5 - 2.2 mmol/L [facility] FIO2 Art 100 % [facility] PF Ratio Art 178 [facility] Blood specimen (specimen) 03/05/2019 12:45 PM EDT 03/05/2019 12:45 PM EDT Ryan Lynch MD POINT OF CARE TEST ORDERABLES [facility] [place] [address] * Prepare Platelets, Apheresis (03/05/2019 11:45 AM EDT) Dispensed? Yes [facility] Blood specimen (specimen) 03/05/2019 11:45 AM EDT 03/05/2019 11:43 AM EDT Ryan Lynch MD BLOOD BANK PRODUCT ORDERABLES [facility] [place] [address] * (ABNORMAL) BLOOD GAS 2 ARTERIAL (03/05/2019 11:14 AM EDT) pH, Arterial 7.39 7.35 - 7.45 [facility] PCO2, Arterial 40 35 - [address] [facility] PO2, Arterial 325(H) 85 - [address] [facility] Bicarbonate, Arterial 23.9 20.0 - 26.0 mmol/L [facility] Base Excess, Arterial -1.1 -3.0 - 3.0 mmol/L [facility] Hgb Blood Gas 8.1(L) 11.7 - 15.5 gm/dL [facility] Oxyhemoglobin, Arterial 98.7(H) 94.0 - 97.0 % [facility] Carboxyhemoglob in, Arterial 0.4 % [facility] Comment: Nonsmokers: 0.5-1.5% COHB Smokers: Variable, but usually less than 10% Toxic: 20-30% COHB Lethal: Greater than 60% COHB Methemoglobin, Arterial 0.3 <=1.5 % [facility] Na Whole Blood 131(L) 135 - 145 mmol/L [facility] K Whole Blood 3.4(L) 3.5 - 5.0 mmol/L [facility] Comment: Please note: Patients with WBC >100,000 may have falsely elevated Potassium levels. Contact the Clinical Chemistry Laboratory if there are any questions. ICa Whole Blood 1.10(L) 1.15 - 1.33 mmol/L [facility] Comment: Note: ??Total bilirubin higher than 20 mg/dL may lead to falsely low ionized calcium. CL Whole Blood 104 98 - 107 mmol/L [facility] Gluc Whole Bld 216(H) 65 - 199 mg/dL [facility] Comment:Diabetes: >=200 mg/d L plus symptoms. Lactate WB 3.4(H) 0.5 - 2.2 mmol/L [facility] FIO2 Art 90 % [facility] PF Ratio Art 361 [facility] Blood specimen (specimen) 03/05/2019 11:14 AM EDT 03/05/2019 11:14 AM EDT Ryan Lynch MD POINT OF CARE TEST ORDERABLES [facility] [place] [address] * (ABNORMAL) Differential, Automated (03/05/2019 11:04 AM EDT) Neutrophil % 69.8 % [facility] Neutrophil Absolute 7.85(H) 1.70 - 6.10 x10(3)/mc L [facility] Lymph % 24.5 % [facility] Lymphocytes Abs 2.8 0.9 - 3.2 x10(3)/mc L [facility] Monocyte % 3.1 % [facility] Monocyte Abs 0.4 0.3 - 0.9 x10(3)/mc L [facility] Eos % 1.0 % [facility] Eosinophils Abs 0.1 0.0 - 0.4 x10(3)/mc L [facility] Basophil % 0.2 % [facility] Baso Absolute 0.0 0.0 - 0.1 x10(3)/mc L [facility] Immature Gran % 1.40 % [facility] Comment: Immature granulocytes(IG's)percentage and absolute count will include metamyelocytes, myelocytes, and promyelocytes. Blood smears from CBCs yielding IG's will be scanned manually for concordance. If this scan disagrees with the automated IG or if promyelocytes are noted, a manual differential will be performed. Immature Gran Absolute 0.16(H) 0.00 - 0.04 x10(3)/mc L [facility] Blood specimen (specimen) 03/05/2019 11:04 AM EDT 03/05/2019 11:26 AM EDT Narrative Resulting Agency Comment Spec In Lab Ish Shaikh MD HEMATOLOGY ORDERAB LES [facility] [place] [address] * (ABNORMAL) Hemogram (03/05/2019 11:04 AM EDT) White Blood Cell 11.2(H) 4.0 - 9.5 x10(3)/mc L [facility] Red Blood Cell 2.41(L) 4.00 - 5.21 x10(6)/mc L [facility] Hemoglobin 7.6(L) 11.7 - 15.5 gm/dL [facility] Hematocrit 22.8(L) 35.7 - 45.8 % [facility] Comment: This result has been called to GEOVANI HOPSON by Law Chacon on 03 05 2019 at 1130, and has been read back. Mean Cell Volume 94.6(H) 82.6 - 94.[address] [facility] Mean Cell Hemoglobin 31.5 27.1 - 32.[address] [facility] Mean Cell Hemoglobin Concentration 33.3 31.7 - 35.0 gm/dL [facility] Platelet 153 145 - 357 x10(3)/mc L [facility] RDW Standard Deviation 47.8(H) 37.0 - 46.0 [facility] RDW coefficient of variation 13.7 11.5 - 14.1 % [facility] Mean Platelet Volume 9.1 7.6 - 12.[address] [facility] NRBC% auto 0.0 % [facility] NRBC Absolute 0.000 0.000 - 0.000 x10(3)/mc L [facility] Blood specimen (specimen) 03/05/2019 11:04 AM EDT 03/05/2019 11:26 AM EDT Narrative Resulting Agency Comment Spec In Lab Ish Shaikh MD HEMATOLOGY ORDERAB LES Performing Organization Address [facility] Co de Phone Number [facility] [place] [address] * (ABNORMAL) Fibrinogen (03/05/2019 11:04 AM EDT) Fibrinogen 118(L) 200 - 393 mg/dL [facility] Comment: Called by: clay, Read back by: geovani hopson_, Date/Time:03/05/19 11:43_. A fibrinogen level >100 mg/dL is adequate for hemostasis in most patients without underlying bleeding disorders. Blood specimen (specimen) 03/05/2019 11:04 AM EDT 03/05/2019 11:26 AM EDT Narrative Resulting Agency Comment Spec In Lab Bob Bolaños MD HEMATOLOGY ORDERABLE S Performing Organization Address [facility] Co de Phone Number [facility] [place] [address] * APTT (03/05/2019 11:04 AM EDT) Partial Thromboplastin Time 32 25 - [address] [facility] Comment: Called by: clay, Read back by: geovani hopson_, Date/Time:03/05/19 11:43_. The PTT is NOT appropriate for heparin monitoring. Use the Anti-Xa level for heparin monitoring (HEP UFH) or LMWH monitoring (HEP LMW). A PTT less than 37 seconds generally indicates adequate hemostasis. Blood specimen (specimen) 03/05/2019 11:04 AM EDT 03/05/2019 11:26 AM EDT Narrative Resulting Agency Comment Spec In Lab Bob Bolaños MD HEMATOLOGY ORDERABLE S Performing Organization Address [facility] Co de Phone Number [facility] [place] [address] * (ABNORMAL) Prothrombin Time (03/05/2019 11:04 AM EDT) Prothrombin Time 18.0(H) 9.4 - 12.[address] [facility] Comment:Called by: clay, Read back by: geovani hopson_, Date/Time:03/05/19 11:43_. International Normalization Ratio 1.6 [facility] Comment: Called by: clay, Read back by: geovani hopson_, Date/Time:03/05/19 11:43_. An INR <2.0 indicates adequate procoagulant activity for hemostasis in most patients without underlying bleeding disorders, though the INR may not adequately reflect hemostatic capacity in patients with liver disease and synthetic impairment. The recommended target INR range for therapeutic anticoagulation is 2.0 ? 3.0 for most applications, though lower and higher ranges may be appropriate depending on clinical circumstances. Blood specimen (specimen) 03/05/2019 11:04 AM EDT 03/05/2019 11:26 AM EDT Narrative Resulting Agency Comment Spec In Lab Bob Bolaños MD HEMATOLOGY ORDERABLE S [facility] [place] [address] * Platelet count (03/05/2019 10:38 AM EDT) Platelet 185 145 - 357 x10(3)/mc L [facility] Immature Plt % 1.1 0.0 - 7.4 % [facility] Comment: Limitation of the Immature Platelet Fraction (IPF)-May be less reliable when the platelet count is less than [id number]/uL due to statistical imprecision. The IPF value provides an assessment of the Bone Marrow production status. ??It is useful in differentiating Thrombocytopenia caused by platelet destruction/consumption versus decreased production. It also helps to determine the imminent release of platelets and can be therefore a helpful parameter in Chemotherapy and Bone marrow transplant patients. ELEVATED IPF value: ?? When the bone marrow is in a state of over production such as when increased destruction and consumption are the underlying issue. ?? When the marrow is recovering post chemotherapy or bone marrow transplant. LOW to NORMAL IPF value: ?? When the bone marrow in not responding and is in a decreased state of production. References: [employer] The Clinical Value of the Immature Platelet Fraction (IPF) in Cell Recovery Document Number [id number] 11/2010 [employer] The Role of the Immature Platelet Fraction (IPF) in the Differential Diagnosis of Thrombocytopenia, Document [id number] V05 P011/11 Blood specimen (specimen) 03/05/2019 10:38 AM EDT 03/05/2019 10:46 AM EDT Narrative Resulting Agency Comment Spec In Lab Ryan Lynch MD HEMATOLOGY ORDERABL ES Performing Organization Address [facility] Co de Phone Number [facility] [place] [address] * (ABNORMAL) Hemoglobin and Hematocrit, blood (03/05/2019 10:38 AM EDT) Hemoglobin 7.3(L) 11.7 - 15.5 gm/dL [facility] Hematocrit 22.5(L) 35.7 - 45.8 % [facility] Comment: This result has been called to HAYDEE HOPSON by Tatiana Vo on 03 05 2019 at 1055, and has been read back. Blood specimen (specimen) 03/05/2019 10:38 AM EDT 03/05/2019 10:46 AM EDT Narrative Resulting Agency Comment Spec In Lab Ryan Lynch MD HEMATOLOGY ORDERABL ES Performing Organization Address [facility]/ZIP Co de Phone Number [facility] [place] [address] * (ABNORMAL) Fibrinogen (03/05/2019 10:38 AM EDT) Fibrinogen 120(L) 200 - 393 mg/dL [facility] Comment: A fibrinogen level >100 mg/dL is adequate for hemostasis in most patients without underlying bleeding disorders. Blood specimen (specimen) 03/05/2019 10:38 AM EDT 03/05/2019 10:46 AM EDT Narrative Resulting Agency Comment Spec In Lab Ryan Lynch MD HEMATOLOGY ORDERABL ES [facility] [place] [address] * (ABNORMAL) BLOOD GAS 2 ARTERIAL (03/05/2019 10:29 AM EDT) pH, Arterial 7.43 7.35 - 7.45 [facility] PCO2, Arterial 34(L) 35 - [address] [facility] PO2, Arterial 360(H) 85 - [address] [facility] Bicarbonate, Arterial 21.8 20.0 - 26.0 mmol/L [facility] Base Excess, Arterial -2.5 -3.0 - 3.0 mmol/L [facility] Hgb Blood Gas 8.3(L) 11.7 - 15.5 gm/dL [facility] Oxyhemoglobin, Arterial 98.8(H) 94.0 - 97.0 % [facility] Carboxyhemoglob in, Arterial 0.3 % [facility] Comment: Nonsmokers: 0.5-1.5% COHB Smokers: Variable, but usually less than 10% Toxic: 20-30% COHB Lethal: Greater than 60% COHB Methemoglobin, Arterial 0.3 <=1.5 % [facility] Na Whole Blood 128(L) 135 - 145 mmol/L [facility] K Whole Blood 4.5 3.5 - 5.0 mmol/L [facility] Comment: Please note: Patients with WBC >100,000 may have falsely elevated Potassium levels. Contact the Clinical Chemistry Laboratory if there are any questions. ICa Whole Blood 0.91(Criti edward) 1.15 - 1.33 mmol/L [facility] Comment: Note: ??Total bilirubin higher than 20 mg/dL may lead to falsely low ionized calcium. CL Whole Blood 100 98 - 107 mmol/L [facility] Gluc Whole Bld 221(H) 65 - 199 mg/dL [facility] Comment:Diabetes: >=200 mg/d L plus symptoms. Lactate WB 2.8(H) 0.5 - 2.2 mmol/L [facility] Blood specimen (specimen) 03/05/2019 10:29 AM EDT 03/05/2019 10:29 AM EDT Ryan Lynch MD POINT OF CARE TEST ORDERABLES [facility] [place] [address] * (ABNORMAL) BLOOD GAS 2 ARTERIAL (03/05/2019 9:56 AM EDT) pH, Arterial 7.41 7.35 - 7.45 [facility] PCO2, Arterial 38 35 - [address] [facility] PO2, Arterial 362(H) 85 - [address] [facility] Bicarbonate, Arterial 24.0 20.0 - 26.0 mmol/L [facility] Base Excess, Arterial -0.6 -3.0 - 3.0 mmol/L [facility] Hgb Blood Gas 8.7(L) 11.7 - 15.5 gm/dL [facility] Oxyhemoglobin, Arterial 99.1(H) 94.0 - 97.0 % [facility] Carboxyhemoglob in, Arterial 0.0 % [facility] Comment: Nonsmokers: 0.5-1.5% COHB Smokers: Variable, but usually less than 10% Toxic: 20-30% COHB Lethal: Greater than 60% COHB Methemoglobin, Arterial 0.3 <=1.5 % [facility] Na Whole Blood 131(L) 135 - 145 mmol/L [facility] K Whole Blood 4.4 3.5 - 5.0 mmol/L [facility] Comment: Please note: Patients with WBC >100,000 may have falsely elevated Potassium levels. Contact the Clinical Chemistry Laboratory if there are any questions. ICa Whole Blood 0.91(Criti edward) 1.15 - 1.33 mmol/L [facility] Comment: Note: ??Total bilirubin higher than 20 mg/dL may lead to falsely low ionized calcium. CL Whole Blood 103 98 - 107 mmol/L [facility] Gluc Whole Bld 207(H) 65 - 199 mg/dL [facility] Comment:Diabetes: >=200 mg/d L plus symptoms. Lactate WB 2.5(H) 0.5 - 2.2 mmol/L [facility] Blood specimen (specimen) 03/05/2019 9:56 AM EDT 03/05/2019 9:56 AM EDT Ryan Lynch MD POINT OF CARE TEST ORDERABLES Performing Organization Address City/State/[facility] Co de Phone Number [facility] [place] [address] * (ABNORMAL) BLOOD GAS 2 VENOUS (03/05/2019 9:27 AM EDT) pH, Venous 7.32 7.32 - 7.42 [facility] PCO2, Venous 45 41 - [address] [facility] PO2, Venous 48(H) 25 - [address] [facility] Bicarbonate, Venous 22.5 mmol/L [facility] Base Excess, Venous -3.6 mmol/L [facility] Hgb Blood Gas 9.0(L) 11.7 - 15.5 gm/dL [facility] Oxyhemoglobin, Venous 80.9 % [facility] Carboxyhemoglob in, Venous 0.3 % [facility] Comment: Nonsmokers: 0.5-1.5% COHB Smokers: Variable, but usually less than 10% Toxic: 20-30% COHB Lethal: Greater than 60% COHB Methemoglobin, Venous 0.3 <=1.5 % [facility] Na Whole Blood 136 135 - 145 mmol/L [facility] K Whole Blood 4.2 3.5 - 5.0 mmol/L [facility] Comment: Please note: Patients with WBC >100,000 may have falsely elevated Potassium levels. Contact the Clinical Chemistry Laboratory if there are any questions. ICa Whole Blood 0.86(Criti edward) 1.15 - 1.33 mmol/L [facility] Comment: Note: ??Total bilirubin higher than 20 mg/dL may lead to falsely low ionized calcium. CL Whole Blood 102 98 - 107 mmol/L [facility] Gluc Whole Bld 196 65 - 199 mg/dL [facility] Comment:Diabetes: >=200 mg/d L plus symptoms Lactate WB 2.2 0.5 - 2.2 mmol/L [facility] Blood Gas Source Venous [facility] Blood specimen (specimen) 03/05/2019 9:27 AM EDT 03/05/2019 9:27 AM EDT Ryan Lynch MD POINT OF CARE TEST ORDERABLES Performing Organization Address City/State/[facility] Co de Phone Number [facility] [place] [address] * (ABNORMAL) BLOOD GAS 2 ARTERIAL (03/05/2019 9:25 AM EDT) pH, Arterial 7.37 7.35 - 7.45 [facility] PCO2, Arterial 40 35 - [address] [facility] PO2, Arterial 408(H) 85 - [address] [facility] Bicarbonate, Arterial 22.7 20.0 - 26.0 mmol/L [facility] Base Excess, Arterial -2.6 -3.0 - 3.0 mmol/L [facility] Hgb Blood Gas 8.8(L) 11.7 - 15.5 gm/dL [facility] Oxyhemoglobin, Arterial 98.8(H) 94.0 - 97.0 % [facility] Carboxyhemoglob in, Arterial 0.3 % [facility] Comment: Nonsmokers: 0.5-1.5% COHB Smokers: Variable, but usually less than 10% Toxic: 20-30% COHB Lethal: Greater than 60% COHB Methemoglobin, Arterial 0.3 <=1.5 % [facility] Na Whole Blood 136 135 - 145 mmol/L [facility] K Whole Blood 4.4 3.5 - 5.0 mmol/L [facility] Comment: Please note: Patients with WBC >100,000 may have falsely elevated Potassium levels. Contact the Clinical Chemistry Laboratory if there are any questions. ICa Whole Blood 0.81(Criti edward) 1.15 - 1.33 mmol/L [facility] Comment: Note: ??Total bilirubin higher than 20 mg/dL may lead to falsely low ionized calcium. CL Whole Blood 103 98 - 107 mmol/L [facility] Gluc Whole Bld 199 65 - 199 mg/dL [facility] Comment:Diabetes: >=200 mg/d L plus symptoms. Lactate WB 2.1 0.5 - 2.2 mmol/L [facility] Blood specimen (specimen) 03/05/2019 9:25 AM EDT 03/05/2019 9:25 AM EDT Ryan Lynch MD POINT OF CARE TEST ORDERABLES [facility] [place] [address] * (ABNORMAL) BLOOD GAS 2 ARTERIAL (03/05/2019 8:32 AM EDT) pH, Arterial 7.43 7.35 - 7.45 [facility] PCO2, Arterial 37 35 - [address] [facility] PO2, Arterial 468(H) 85 - [address] [facility] Bicarbonate, Arterial 24.1 20.0 - 26.0 mmol/L [facility] Base Excess, Arterial -0.2 -3.0 - 3.0 mmol/L [facility] Hgb Blood Gas 12.3 11.7 - 15.5 gm/dL [facility] Oxyhemoglobin, Arterial 99.3(H) 94.0 - 97.0 % [facility] Carboxyhemoglob in, Arterial 0.3 % [facility] Comment: Nonsmokers: 0.5-1.5% COHB Smokers: Variable, but usually less than 10% Toxic: 20-30% COHB Lethal: Greater than 60% COHB Methemoglobin, Arterial 0.0 <=1.5 % [facility] Na Whole Blood 140 135 - 145 mmol/L [facility] K Whole Blood 3.3(L) 3.5 - 5.0 mmol/L [facility] Comment: Please note: Patients with WBC >100,000 may have falsely elevated Potassium levels. Contact the Clinical Chemistry Laboratory if there are any questions. ICa Whole Blood 1.10(L) 1.15 - 1.33 mmol/L [facility] Comment: Note: ??Total bilirubin higher than 20 mg/dL may lead to falsely low ionized calcium. CL Whole Blood 105 98 - 107 mmol/L [facility] Gluc Whole Bld 133 65 - 199 mg/dL [facility] Comment:Diabetes: >=200 mg/d L plus symptoms. Lactate WB 2.4(H) 0.5 - 2.2 mmol/L [facility] FIO2 Art 90 % [facility] PF Ratio Art 520 [facility] Blood specimen (specimen) 03/05/2019 8:32 AM EDT 03/05/2019 8:32 AM EDT Ryan Lynch MD POINT OF CARE TEST ORDERABLES [facility] [place] [address] * POCT Glucose (03/05/2019 6:49 AM EDT) Glucose, POC 133 65 - 199 mg/dL [facility] Comment: Supplemental ranges: <140 mg/dL before meals <180 mg/dL all other times of the day Blood specimen (specimen) 03/05/2019 6:49 AM EDT 03/05/2019 6:49 AM EDT Narrative Authorizing Provider Result Beverly Lynch MD POINT OF CARE TEST ORDERABLES [facility] [place] [address] * Prepare RBC (03/05/2019 6:35 AM EDT) Dispensed? Yes [facility] Blood specimen (specimen) 03/05/2019 6:35 AM EDT 03/05/2019 6:31 AM EDT Ryan Lynch MD BLOOD BANK PRODUCT ORDERABLES Performing Organization Address [facility] [place] [address] documented in this encounter Visit Diagnoses Diagnosis S/P CABG (coronary artery bypass graft)- Primary Postsurgical aortocoronary bypass status S/P CABG (coronary artery bypass graft) Postsurgical aortocoronary bypass status CAD (coronary artery disease) Coronary atherosclerosis of unspecified type of vessel, [place] or graft S/P CABG (coronary artery bypass graft) Postsurgical aortocoronary bypass status documented in this encounter Admitting Diagnoses Diagnosis CAD (coronary artery disease) Coronary atherosclerosis of unspecified type of vessel, [place] or graft documented in this encounter Administered Medications Inactive Administered Medications - up to 3 most recent administrations Medication Order MAR Action Action Date Dose Rate Site acetaminophen (OFIRMEV) injection 1,000 mg 1,000 mg, Intravenous, at 400 mL/hr, Administer over 15 Minutes, EVERY 6 HOURS SCHEDULED, 4 doses, First dose on [place] 03/05/19 at 1230, Last dose on Sat03/06/19 at 0600, Maximum dose of acetaminophen is 4000 mg from all sources in 24 hours., Routine, Is ketorolac (Toradol) IV contraindicated? Yes, Can this patient tolerate oral medications or suppositories? No Given 03/06/2019 5:27 AM EDT 1,000 mg 400 mL/hr Given 03/05/2019 11:54 PM EDT 1,000 mg 400 mL/hr Given 03/05/2019 5:38 PM EDT 1,000 mg 400 mL/hr acetaminophen (TYLENOL) tablet 1,000 mg 1,000 mg, Oral, EVERY 6 HOURS SCHEDULED, First dose on Sat03/06/19 at 1200, Until Discontinued, Maximum dose of acetaminophen is 4000 mg from all sources in 24 hours., Routine Given 03/09/2019 11:34 AM EDT 1,000 mg Given 03/09/2019 6:02 AM EDT 1,000 mg Given 03/09/2019 12:15 AM EDT 1,000 mg aspirin chewable tablet 81 mg 81 mg, Oral, DAILY, First dose on Sat03/05/19 at 1230, Until Discontinued, Routine Given 03/09/2019 8:38 AM EDT 81 mg Given 03/08/2019 9:10 AM EDT 81 mg Given 03/07/2019 9:06 AM EDT 81 mg atorvastatin (LIPITOR) tablet 40 mg 40 mg, Oral, EVERY EVENING, First dose on Sat03/05/19 at 1700, Until Discontinued, Routine Given 03/08/2019 5:18 PM EDT 40 mg Given 03/07/2019 6:03 PM EDT 40 mg Given 03/06/2019 5:11 PM EDT 40 mg chlorhexidine (PERIDEX) 0.12 % oral solution 15 mL 15 mL, Oral, EVERY 12 HOURS SCHEDULED (2 times per day), First dose on Sat03/05/19 at 1300, Until Discontinued, [place] teeth, Routine Given 03/05/2019 1:09 PM EDT 15 mLs dextrose 50% intravenous solution 25-50 mL 25-50 mL (12.5-25 g), Intravenous, EVERY 1 HOUR PRN, Starting on Sat03/06/19 at 0947, Until Sat03/09/19 at 1715, Low blood sugar, For BG 50-70 mg/dL: Oral treatment preferred:?? If able to drink, give 120 mL Juice or Regular (not diet) soda OR If NPO, give 15 gram glucose 40% oral gel massaged into buccal mucosa OR if unconscious or uncooperative, give 12.5 gram (25 mL) Dextrose 50% IV OR, if no IV access, give 1 mg Glucagon IM. For BG less than 50 mg/dL: Oral treatment preferred:?? If able to drink, give 240 mL Juice or Regular (not diet) soda OR If NPO, give 30 gram glucose 40% oral gel massaged in buccal mucosa OR if unconscious or uncooperative, give 25 gram (50 mL) Dextrose 50% IV OR, if no IV access, give 1 mg Glucagon IM. Recheck BG in 30 minutes. May repeat juice, gel, dextrose or glucagon once per episode. To avoid extravasation, push Dextrose 50% SLOWLY (3 mL over 1 minute) in a patent, running IV, preferably a central line. For persistent hypoglycemia, consider longer-acting treatment for the duration of the active insulin., Routine EPINEPHrine 2 mg in dextrose 5% 250 mL infusion 0-10 mcg/min (0-75 mL/hr), Intravenous, CONTINUOUS, Starting on [place] 03/05/19 at 1230, Until Sat03/06/19 at 0856, Titrate to keep systolic blood pressure greater than 90 mmHg. Start at 1 mcg/min, adjust by 1 mcg/min every 3 minutes. Dose not to exceed 10 mcg/min. Use if phenylephrine or vasopressin or norepinephrine is ineffective. Call pager # [phone] if initiated. Rate/Dose Change 03/05/2019 12:15 PM EDT 1 mcg/min 7.5 mL/hr New Bag 03/05/2019 12:00 PM EDT 2 mcg/min 15 mL/hr fentaNYL 50 mcg/mL syringe 0-100 mcg/hr (0-2 mL/hr), Intravenous, CONTINUOUS, Starting on [place] 03/05/19 at 1230, Until Sat03/06/19 at 0947, Titrate to patient comfort, pain scale 1-3. Start at 25 mcg/hr, adjust by 25 mcg/hr every 15 minutes. Dose not to exceed 100 mcg/hour. Rate/Dose Change 03/05/2019 9:07 PM EDT 12.5 mcg/hr 0.3 mL/hr Rate/Dose Verify 03/05/2019 7:00 PM EDT 25 mcg/hr 0.5 mL/ hr Rate/Dose Verify 03/05/2019 6:00 PM EDT 25 mcg/hr 0.5 mL/ hr fentaNYL bolus from syringe 25 mcg 25 mcg, Intravenous, EVERY 10 MIN PRN, Starting on [place] 03/05/19 at 1208, Until Sat03/06/19 at 0947, Pain, For breakthrough pain (pain scale greater than 3), while intubated, Maximum dose 300 mcg over one hour., Routine Bolus from Bag 03/05/2019 2:43 PM EDT 25 mcg Bolus from Bag 03/05/2019 2:22 PM EDT 25 mcg Bolus from Bag 03/05/2019 1:23 PM EDT 25 mcg fentaNYL bolus from syringe 25 mcg 25 mcg, Intravenous, EVERY 1 HOUR PRN, Starting on [place] 03/05/19 at 1208, Until Sat03/06/19 at 0947, Pain, For breakthrough pain while extubated., For breakthrough pain while extubated., Routine Bolus from Bag 03/05/2019 8:45 PM EDT 25 mcg furosemide (LASIX) injection 20 mg 20 mg, Intravenous, 2 TIMES DAILY, First dose on Sat03/06/19 at 0915, Until Discontinued Given 03/09/2019 8:38 AM EDT 20 mg Given 03/08/2019 5:18 PM EDT 20 mg Given 03/08/2019 9:10 AM EDT 20 mg glucagon (human recombinant) injection SolR 1 mg 1 mg, Intramuscular, EVERY 1 HOUR PRN, Starting on Sat03/06/19 at 0947, Until Sat03/09/19 at 1715, Low blood sugar, For BG 50-70 mg/dL: Oral treatment preferred:?? If able to drink, give 120 mL Juice or Regular (not diet) soda OR If NPO, give 15 gram glucose 40% oral gel massaged into buccal mucosa OR if unconscious or uncooperative, give 12.5 gram (25 mL) Dextrose 50% IV OR, if no IV access, give 1 mg Glucagon IM. For BG less than 50 mg/dL: Oral treatment preferred:?? If able to drink, give 240 mL Juice or Regular (not diet) soda OR If NPO, give 30 gram glucose 40% oral gel massaged in buccal mucosa OR if unconscious or uncooperative, give 25 gram (50 mL) Dextrose 50% IV OR, if no IV access, give 1 mg Glucagon IM. Recheck BG in 30 minutes. May repeat juice, gel, dextrose or glucagon once per episode. To avoid extravasation, push Dextrose 50% SLOWLY (3 mL over 1 minute) in a patent, running IV, preferably a central line. For persistent hypoglycemia, consider longer-acting treatment for the duration of the active insulin., Routine glucose (GLUTOSE) 40% oral gel 15-30 g, Buccal, EVERY 30 MIN PRN, Starting on Sat03/06/19 at 0947, Until Sat03/09/19 at 1715, Low blood sugar, For BG 50-70 mg/dL: Oral treatment preferred:?? If able to drink, give 120 mL Juice or Regular (not diet) soda OR If NPO, give 15 gram glucose 40% oral gel massaged into buccal mucosa OR if unconscious or uncooperative, give 12.5 gram (25 mL) Dextrose 50% IV OR, if no IV access, give 1 mg Glucagon IM. For BG less than 50 mg/dL: Oral treatment preferred:?? If able to drink, give 240 mL Juice or Regular (not diet) soda OR If NPO, give 30 gram glucose 40% oral gel massaged in buccal mucosa OR if unconscious or uncooperative, give 25 gram (50 mL) Dextrose 50% IV OR, if no IV access, give 1 mg Glucagon IM. Recheck BG in 30 minutes. May repeat juice, gel, dextrose or glucagon once per episode. To avoid extravasation, push Dextrose 50% SLOWLY (3 mL over 1 minute) in a patent, running IV, preferably a central line. For persistent hypoglycemia, consider longer-acting treatment for the duration of the active insulin. 1 tube contains 15 grams of glucose (net weight of tube = 37.5 grams., Routine insulin lispro (HumaLOG) VIAL injection 1-4 Units 1-4 Units, Subcutaneous, 3 TIMES DAILY BEFORE MEALS, First dose on Sat03/06/19 at 1130, Until Discontinued, CORRECTION BOLUS Sensitive to insulin lean patient or total daily dose of all insulin needed to achieve glycemic control less than 30 units BG 140 - 160 Give 1 unit BG 161 - 200 Give 2 units BG 201 - 240 Give 3 units BG greater than 240, give 4 units and recheck BG in 2 hours. If less than 240 after two hours, give no insulin and resume prior schedule. If BG remains greater than 240, repeat 4 units (no more than three times) & call for new basal insulin orders. DO NOT hold if NPO, unless specifically told to do so., Routine Given 03/08/2019 11:17 AM EDT 2 Units Given 03/07/2019 6:07 PM EDT 3 Units Given 03/07/2019 11:53 AM EDT 1 Units insulin regular human (HumuLIN;NovoLIN) 1unit/mL in sodium chloride 0.9% infusion 0.5-16 Units/hr (0.5-16 mL/hr), Intravenous, CHANGE BAG EVERY EVENING, First dose on [place] 03/05/19 at 1230, Until Discontinued, Type 2 diabetes. Current blood glucose 140 - 179 Titration- aim for target range of 140 - 180 mg/dL. Check BG every hour unless otherwise indicated. [[ No initial bolus. Begin continuous infusion at 2 units/hour. ]] If BG at the time the infusion is started outside of the CURRENT BLOOD GLUCOSE range above, contact MD for new starting rate/bolus order. When infusion is paused, turn it back on as soon as possible per protocol. If BG at the time the infusion is started is outside of the CURRENT BLOOD GLUCOSE range above, contact provider for new starting rate/bolus order. Current BG less than 80 - Stop insulin. If BG less than 70, treat per hypoglycemia protocol. Re-check BG in 30 minutes and as soon as BG is greater than 80, restart with rate 50% of previous rate. If infusion stopped after previous rate had been 0.5 unit/hour, recheck every hour and when BG greater than 100 and higher than last test restart at 0.5 unit/hour. IF INFUSION IS PAUSED, TURN IT BACK ON SOON POSSIBLE, PER PROTOCOL. Current BG 80 - 139 - If BG dropped 10 mg/dL or more since last test, decrease rate by 50% and re-check in 30 minutes. Otherwise, decrease rate by 0.5 units/hour. Current BG 140 - 180 - If BG dropped 50 mg/dL or more since last test, decrease rate by 1 unit/hour. Otherwise, maintain same rate. Current BG 181 - 220 - If BG is lower than last test, maintain same rate. Otherwise, increase rate by 0.5 units/hour. Current BG 221 - 250 - If BG dropped 30 mg/dL or more since last test, maintain same rate. Otherwise, increase rate by 1 unit/hour. Current BG greater than 250 - Increase rate by 1 unit/hour AND bolus with Regular insulin IV as per IV Bolus Scale. Re-check BG in 30 minutes. THE FIRST DOSE OF SC INSULIN OUGHT TO BE ADMINISTERED BEFORE DISCONTINUING THE INFUSION. AN OVERLAP OF 2-3 HOURS IS RECOMMENDED. Continue to monitor the BG hourly., Routine Rate/Dose Verify 03/06/2019 6:31 AM EDT 1 Units/hr 1 mL/hr Rate/Dose Verify 03/06/2019 3:16 AM EDT 1 Units/hr 1 mL/hr Rate/Dose Change 03/06/2019 1:51 AM EDT 1 Units/hr 1 mL/hr lactated ringers infusion 1,000 mL, at 100 mL/hr, Intravenous, CONTINUOUS, Starting on [place] 03/05/19 at 0715, Until [place] 03/05/19 at 1219, Day of Surgery (Day of Procedure) New Bag 03/05/2019 7:24 AM EDT 1,000 mLs 100 mL/hr magnesium hydroxide (Milk of Magnesia) (240 mg/mL) oral liquid 10 mL 10 mL, Oral, DAILY, First dose on 03/07/19 at 0900, Until Discontinued, Post-op day 2. Do not use with renal insufficiency., Routine Given 03/08/2019 9:17 AM EDT 10 mLs Given 03/07/2019 9:06 AM EDT 10 mLs metoprolol (LOPRESSOR) tablet 12.5 mg 12.5 mg, Oral, EVERY 12 HOURS SCHEDULED (2 times per day), First dose on Sat03/06/19 at 0915, Until Discontinued, Routine Given 03/08/2019 9:10 AM EDT 12.5 mg Given 03/07/2019 9:22 PM EDT 12.5 mg Given 03/07/2019 9:06 AM EDT 12.5 mg metoprolol (LOPRESSOR) tablet 12.5 mg 12.5 mg, Oral, ONCE, 1 dose, On 03/08/19 at 1045, Routine Given 03/08/2019 10:27 AM EDT 12.5 mg metoprolol tartrate (LOPRESSOR) tablet 25 mg 25 mg, Oral, EVERY 12 HOURS SCHEDULED (2 times per day), First dose (after last modification) on 03/08/19 at 2100, Until Discontinued, Routine Given 03/09/2019 8:38 AM EDT 25 mg Given 03/08/2019 8:47 PM EDT 25 mg nitroGLYcerin 50 mg in dextrose 5% 250 mL infusion 0-200 mcg/min (0-60 mL/hr), Intravenous, CONTINUOUS, Starting on [place] 03/05/19 at 1230, Until Sat03/06/19 at 0947, For hypertension. Titrate to keep systolic blood pressure less than 120 mmHg. Initiate at 25 mcg/min. Adjust by 25 mcg/min every 5 minutes. Dose not to exceed 200 mcg/minute., Routine Rate/Dose Change 03/05/2019 11:30 PM EDT 30 mcg/min 9 mL/hr Rate/Dose Change 03/05/2019 11:00 PM EDT 55 mcg/min 16.5 m L/hr Rate/Dose Change 03/05/2019 10:42 PM EDT 80 mcg/min 24 mL/ hr NORepinephrine 16 mcg/mL (standard ADULT and Pedi greater than 20 kg) infusion 0-30 mcg/min (0-112.5 mL/hr), Intravenous, CONTINUOUS, Starting on [place] 03/05/19 at 1230, Until Sat03/06/19 at 0947, Titrate to keep systolic blood pressure greater than 90 mmHg. Start at 2 mcg/minute and adjust by 2 mcg/min every 3 minutes. Dose not to exceed 30 mcg/minute. Begin if phenyleprine and/or vasopressin ineffective.Call pager # [phone] if initiated., Routine Rate/Dose Change 03/05/2019 4:00 PM EDT 4 mcg/min 15 mL/hr Rate/Dose Change 03/05/2019 2:01 PM EDT 5 mcg/min 18.8 mL /hr Rate/Dose Verify 03/05/2019 2:00 PM EDT 6 mcg/min 22.5 mL /hr ondansetron (ZOFRAN) injection 4 mg 4 mg, Intravenous, EVERY 8 HOURS PRN, Starting on Sat03/05/19 at 1208, Until Sat03/09/19 at 1715, Nausea Given 03/05/2019 6:42 PM EDT 4 mg oxyCODONE (ROXICODONE) immediate release tablet 5 mg 5 mg, Oral, EVERY 4 HOURS PRN, Starting on Sat03/05/19 at 2056, Until Sat03/09/19 at 1715, Pain, Routine pantoprazole (PROTONIX) injection 40 mg 40 mg, Intravenous, DAILY, First dose on Sat03/05/19 at 1300, Until Discontinued, Reconstitute with 10 mL of normal saline to a concentration of 4 mg/mL and infuse slowly over 2 minutes. , Routine Given 03/05/2019 1:09 PM EDT 40 mg pantoprazole (PROTONIX) tablet 40 mg 40 mg, Oral, DAILY, First dose on [place] 03/05/19 at 1300, Until Discontinued, DO NOT CRUSH OR OPEN If unable to take PO, may give IV Given 03/09/2019 8:38 AM EDT 40 mg Given 03/08/2019 9:10 AM EDT 40 mg Given 03/07/2019 9:06 AM EDT 40 mg potassium chloride (K-DUR/KLOR-CON) extended release tablet 20 mEq 20 mEq, Oral, DAILY, First dose on Sat03/07/19 at 0900, Until Discontinued, Routine Given 03/09/2019 8:38 AM EDT 20 mEq Given 03/08/2019 9:10 AM EDT 20 mEq Given 03/07/2019 9:06 AM EDT 20 mEq potassium chloride (K-DUR/KLOR-CON) extended release tablet 20 mEq 20 mEq, Oral, ONCE, 1 dose, On Sat03/06/19 at 1700, Routine Given 03/06/2019 5:11 PM EDT 20 mEq potassium chloride (K-DUR/KLOR-CON) extended release tablet 20 mEq 20 mEq, Oral, ONCE, 1 dose, On Sat03/08/19 at 1200, Routine Given 03/08/2019 1:11 PM EDT 20 mEq potassium chloride 20 mEq in 100 mL 20 mEq, Intravenous, EVERY 1 HOUR PRN, Starting on [place] 03/05/19 at 1208, Until Sat03/06/19 at 0947, Administer over 60 Minutes, hypokalemia, Administer 3 doses for a serum potassium (mMol/L) of 2.8 - 3.2 See instructions for Potassium Protocol in online policies. New Bag 03/05/2019 1:20 PM EDT 20 mEq 100 mL/hr prochlorperazine (COMPAZINE) injection 10 mg 10 mg, Intravenous, ONCE PRN, 1 dose, Starting on [place] 03/05/19 at 2224, Until [place] 03/05/19 at 2241, Nausea, Routine Given 03/05/2019 10:41 PM EDT 10 mg propofol (DIPRIVAN) infusion 0-50 mcg/kg/min ? 95.9 kg (0-28.77 mL/hr, rounded to 0-28.8 mL/hr), Intravenous, CONTINUOUS, Starting on [place] 03/05/19 at 1230, Until Sat03/06/19 at 0947, Titrate to sedation level of RASS Goal (-) 1. Start at 10 mcg/kg/min, adjust rate by 5 mcg/kg/min every 3 minutes. Dose not to exceed 50 mcg/kg/minute. Discontinue upon extubation., Routine Rate/Dose Change 03/05/2019 4:00 PM EDT 50 mcg/kg/min 28.8 mL/hr Rate/Dose Change 03/05/2019 3:40 PM EDT 40 mcg/kg/min 23 m L/hr Rate/Dose Verify 03/05/2019 2:00 PM EDT 40 mcg/kg/min 23 m L/hr senna-docusate (PERICOLACE) 8.6-50 mg per tablet 2 tablet 2 tablet, Oral, DAILY, First dose on Sat03/06/19 at 2100, Until Discontinued, Post-op day 1, Routine Given 03/07/2019 9:22 PM EDT 2 tablets Given 03/06/2019 8:21 PM EDT 2 tablets sodium chloride 0.9 % (flush) flush 5 mL 5 mL, Intravenous, EVERY 8 HOURS, First dose on Sat03/06/19 at 1015, Until Discontinued, Routine Given 03/09/2019 10:15 AM EDT 5 mLs Given 03/09/2019 2:15 AM EDT 5 mLs Given 03/08/2019 10:15 AM EDT 5 mLs sodium chloride 0.9% infusion 0-500 mL/hr, Intravenous, CONTINUOUS, Starting on [place] 03/05/19 at 1230, Until Sat03/06/19 at 0947, Bolus 250 mL every 5 minutes as needed for volume replacement to maintain cardiac index greater than or equal to 2.0 L/min/M2. Maximum volume 2 L. Call senior warehouse clerk for additional fluid orders: pager #[phone]. Rate/Dose Verify 03/05/2019 6:00 PM EDT 50 mL/hr 50 mL/hr Rate/Dose Change 03/05/2019 4:00 PM EDT 50 mL/hr 50 mL/h r Rate/Dose Change 03/05/2019 3:00 PM EDT 150 mL/hr 150 mL/ hr sodium chloride 0.9% infusion 10-30 mL/hr, Intravenous, DAILY PRN, Starting on [place] 03/05/19 at 1208, Until Sat03/06/19 at 0947, Side port TKO rate, per [facility] nursing protocol. Rate/Dose Verify 03/05/2019 7:00 PM EDT 30 mL/hr 30 mL/hr Rate/Dose Verify 03/05/2019 6:00 PM EDT 30 mL/hr 30 mL/h r Rate/Dose Verify 03/05/2019 5:00 PM EDT 30 mL/hr 30 mL/h r sodium chloride 0.9% infusion 10-30 mL/hr, Intravenous, DAILY PRN, Starting on [place] 03/05/19 at 1208, Until Sat03/06/19 at 0947, Side port TKO rate, per [facility] nrusing protocol. Rate/Dose Verify 03/05/2019 10:00 PM EDT 30 mL/hr 30 mL/hr Rate/Dose Verify 03/05/2019 7:00 PM EDT 30 mL/hr 30 mL/h r Rate/Dose Verify 03/05/2019 6:00 PM EDT 30 mL/hr 30 mL/h r tamoxifen (NOLVADEX) tablet 20 mg 20 mg, Oral, DAILY, First dose on Sat03/06/19 at 1200, Until Discontinued, Routine Given 03/09/2019 10:07 AM EDT 20 mg Given 03/08/2019 9:10 AM EDT 20 mg Given 03/07/2019 9:06 AM EDT 20 mg documented in this encounter Active and Recently Administered Medications Times are shown in EDT. Scheduled Medication Order 03/07/2019 03/08/2019 03/09/2019 acetaminophen (TYLENOL) tablet 1,000 mg(Linked Group 1) 1,000 mg, Oral, EVERY 6 HOURS SCHEDULED, First dose on Sat03/06/19 at 1200, Until Discontinued, Maximum dose of acetaminophen is 4000 mg from all sources in 24 hours., Routine 0008 (Given - Provider: Nikki Caraballo)0544 (Given - Provider: Nikki Caraballo)1149 (Given - Provider: Rg Gordillo, GIANNI)1803 (Given - Provider: Rg Gordillo, GIANNI)2330 (Given - Provider: Elif Jackson RN) 0600 (Given - Provider: Elif Jackson RN)1311 (Given - Provider: Rg Gordillo RN)1718 (Given - Provider: Cornell Reyes, GIANNI) 0015 (Given - Provider: Jazz Kiser, RN)0602 (Given - Provider: Jazz Kiser, RN)1134 (Given - Provider: Cornell Reyes, RN) aspirin chewable tablet 81 mg(Linked Group 2) 81 mg, Oral, DAILY, First dose on Sat03/05/19 at 1230, Until Discontinued, Routine 0906 (Given - Provider: Rg Gordillo RN) 0910 (Given - Provider: Rg Gordillo RN) 0838 (Given - Provider: Cornell Reyes, GIANNI) atorvastatin (LIPITOR) tablet 40 mg 40 mg, Oral, EVERY EVENING, First dose on Sat03/05/19 at 1700, Until Discontinued, Routine 1803 (Given - Provider: Rg Gordillo RN) 1718 (Given - Provider: Cornell Reyes RN) furosemide (LASIX) injection 20 mg 20 mg, Intravenous, 2 TIMES DAILY, First dose on Sat03/06/19 at 0915, Until Discontinued 0907 (Given - Provider: Rg Gordillo RN)1803 (Given - Provider: Rg Gordillo RN) 0910 (Given - Provider: Rg Gordillo RN)1718 (Given - Provider: Cornell Reyes RN - Comment: given at 1824 using new iv) 0838 (Given - Provider: Cornell Reyes RN) insulin lispro (HumaLOG) VIAL injection 1-4 Units(Linked Group 3) 1-4 Units, Subcutaneous, 3 TIMES DAILY BEFORE MEALS, First dose on Sat03/06/19 at 1130, Until Discontinued, CORRECTION BOLUS Sensitive to insulin lean patient or total daily dose of all insulin needed to achieve glycemic control less than 30 units BG 140 - 160 Give 1 unit BG 161 - 200 Give 2 units BG 201 - 240 Give 3 units BG greater than 240, give 4 units and recheck BG in 2 hours. If less than 240 after two hours, give no insulin and resume prior schedule. If BG remains greater than 240, repeat 4 units (no more than three times) & call for new basal insulin orders. DO NOT hold if NPO, unless specifically told to do so., Routine 0907 (Given - Provider: Rg Gordillo RN)1153 (Given - Provider: Rg Gordillo RN - Comment: bs [phone] (Given - Provider: Rg Gordillo RN - Comment: BS [phone]) 0730 (Not Given - Provider: Rg Gordillo RN - Reason: Contraindicated - Comment: [phone] (Given - Provider: Rg Gordillo RN - Comment: bs [phone] (Not Given - Provider: Cornell Reyes RN - Reason: Order parameters not met) 0730 (Not Given - Provider: Cornell Reyes RN - Reason: Order parameters not met)1130 (Not Given - Provider: Cornell Reyes RN - Reason: Order parameters not met) magnesium hydroxide (Milk of Magnesia) (240 mg/mL) oral liquid 10 mL 10 mL, Oral, DAILY, First dose on Sat03/07/19 at 0900, Until Discontinued, Post-op day 2. Do not use with renal insufficiency., Routine 09 (Given - Provider: Rg Gordillo RN) 0917 (Given - Provider: Rg Gordillo RN) 0900 (Not Given - Provider: Cornell Reyes RN - Reason: Contraindicated) metoprolol (LOPRESSOR) tablet 12.5 mg (CANCELED) 12.5 mg, Oral, EVERY 12 HOURS SCHEDULED (2 times per day), First dose on Sat03/06/19 at 0915, Until Discontinued, Routine 09 (Given - Provider: Rg Gordillo RN)2122 (Given - Provider: Elif Jackson RN) 0910 (Given - Provider: Rg Gordillo RN) metoprolol (LOPRESSOR) tablet 12.5 mg (COMPLETED) 12.5 mg, Oral, ONCE, 1 dose, On 03/08/19 at 1045, Routine 1027 (Given - Provider: Rg Gordillo RN) metoprolol tartrate (LOPRESSOR) tablet 25 mg 25 mg, Oral, EVERY 12 HOURS SCHEDULED (2 times per day), First dose (after last modification) on 03/08/19 at 2100, Until Discontinued, Routine 2046 (Given - Provider: Jazz Kiser RN) 0838 (Given - Provider: Cornell Reyes, GIANNI) pantoprazole (PROTONIX) tablet 40 mg(Linked Group 4) 40 mg, Oral, DAILY, First dose on [place] 03/05/19 at 1300, Until Discontinued, DO NOT CRUSH OR OPEN If unable to take PO, may give IV 0906 (Given - Provider: Rg Gordillo RN) 0910 (Given - Provider: Rg Gordillo RN) 0838 (Given - Provider: Cornell Reyes RN) potassium chloride (K-DUR/KLOR-CON) extended release tablet 20 mEq 20 mEq, Oral, DAILY, First dose on 03/07/19 at 0900, Until Discontinued, Routine 09 (Given - Provider: Rg Gordillo RN) 09 (Given - Provider: Rg Gordillo RN) 0838 (Given - Provider: Cornell Reyes RN) potassium chloride (K-DUR/KLOR-CON) extended release tablet 20 mEq (COMPLETED) 20 mEq, Oral, ONCE, 1 dose, On 03/08/19 at 1200, Routine 1311 (Given - Provider: Rg Gordillo RN) senna-docusate (PERICOLACE) 8.6-50 mg per tablet 2 tablet 2 tablet, Oral, DAILY, First dose on Sat03/06/19 at 2100, Until Discontinued, Post-op day 1, Routine 2121 (Given - Provider: Elif Jackson RN) 2100 (Not Given - Provider: Jazz Kiser RN - Reason: See comment - Comment: patient has had multiple soft bowel movements) sodium chloride 0.9 % (flush) flush 5 mL 5 mL, Intravenous, EVERY 8 HOURS, First dose on 03/06/19 at 1015, Until Discontinued, Routine 0215 (Hold - Provider: Nikki Caraballo - Reason: Contraindicated)101 5 (Given - Provider: Rg Gordillo RN)1815 (Given - Provider: Elif Jackson RN) 0215 (Not Given - Provider: Kp Ortega RN - Reason: Order parameters not met)1015 (Given - Provider: Rg Gordillo, GIANNI)181 (Not Given - Provider: Jazz Kiser, RN - Reason: See comment - Comment: left over from previous shift) 0215 (Given - Provider: Jazz Kiser RN)1015 (Given - Provider: Cornell Reyes, RN) tamoxifen (NOLVADEX) tablet 20 mg 20 mg, Oral, DAILY, First dose on Sat03/06/19 at 1200, Until Discontinued, Routine 09 (Given - Provider: Rg Gordillo RN) 0910 (Given - Provider: Rg Gordillo RN) 1007 (Given - Provider: Cornell Reyes, RN) PRN Medication Order 03/07/2019 03/08/2019 03/09/2019 bisacodyl (DULCOLAX) suppository 10 mg 10 mg, Rectal, DAILY PRN, Starting on Sat03/08/19 at 0000, Until Sat03/09/19 at 1715, Constipation, Starting post-op day 3., Routine dextrose 50% intravenous solution 25-50 mL(Linked Group 5) 25-50 mL (12.5-25 g), Intravenous, EVERY 1 HOUR PRN, Starting on Sat03/06/19 at 0947, Until Sat03/09/19 at 1715, Low blood sugar, For BG 50-70 mg/dL: Oral treatment preferred:?? If able to drink, give 120 mL Juice or Regular (not diet) soda OR If NPO, give 15 gram glucose 40% oral gel massaged into buccal mucosa OR if unconscious or uncooperative, give 12.5 gram (25 mL) Dextrose 50% IV OR, if no IV access, give 1 mg Glucagon IM. For BG less than 50 mg/dL: Oral treatment preferred:?? If able to drink, give 240 mL Juice or Regular (not diet) soda OR If NPO, give 30 gram glucose 40% oral gel massaged in buccal mucosa OR if unconscious or uncooperative, give 25 gram (50 mL) Dextrose 50% IV OR, if no IV access, give 1 mg Glucagon IM. Recheck BG in 30 minutes. May repeat juice, gel, dextrose or glucagon once per episode. To avoid extravasation, push Dextrose 50% SLOWLY (3 mL over 1 minute) in a patent, running IV, preferably a central line. For persistent hypoglycemia, consider longer-acting treatment for the duration of the active insulin., Routine glucagon (human recombinant) injection SolR 1 mg(Linked Group 5) 1 mg, Intramuscular, EVERY 1 HOUR PRN, Starting on Sat03/06/19 at 0947, Until 03/09/19 at 1715, Low blood sugar, For BG 50-70 mg/dL: Oral treatment preferred:?? If able to drink, give 120 mL Juice or Regular (not diet) soda OR If NPO, give 15 gram glucose 40% oral gel massaged into buccal mucosa OR if unconscious or uncooperative, give 12.5 gram (25 mL) Dextrose 50% IV OR, if no IV access, give 1 mg Glucagon IM. For BG less than 50 mg/dL: Oral treatment preferred:?? If able to drink, give 240 mL Juice or Regular (not diet) soda OR If NPO, give 30 gram glucose 40% oral gel massaged in buccal mucosa OR if unconscious or uncooperative, give 25 gram (50 mL) Dextrose 50% IV OR, if no IV access, give 1 mg Glucagon IM. Recheck BG in 30 minutes. May repeat juice, gel, dextrose or glucagon once per episode. To avoid extravasation, push Dextrose 50% SLOWLY (3 mL over 1 minute) in a patent, running IV, preferably a central line. For persistent hypoglycemia, consider longer-acting treatment for the duration of the active insulin., Routine glucose (GLUTOSE) 40% oral gel(Linked Group 5) 15-30 g, Buccal, EVERY 30 MIN PRN, Starting on Sat03/06/19 at 0947, Until Sat03/09/19 at 1715, Low blood sugar, For BG 50-70 mg/dL: Oral treatment preferred:?? If able to drink, give 120 mL Juice or Regular (not diet) soda OR If NPO, give 15 gram glucose 40% oral gel massaged into buccal mucosa OR if unconscious or uncooperative, give 12.5 gram (25 mL) Dextrose 50% IV OR, if no IV access, give 1 mg Glucagon IM. For BG less than 50 mg/dL: Oral treatment preferred:?? If able to drink, give 240 mL Juice or Regular (not diet) soda OR If NPO, give 30 gram glucose 40% oral gel massaged in buccal mucosa OR if unconscious or uncooperative, give 25 gram (50 mL) Dextrose 50% IV OR, if no IV access, give 1 mg Glucagon IM. Recheck BG in 30 minutes. May repeat juice, gel, dextrose or glucagon once per episode. To avoid extravasation, push Dextrose 50% SLOWLY (3 mL over 1 minute) in a patent, running IV, preferably a central line. For persistent hypoglycemia, consider longer-acting treatment for the duration of the active insulin. 1 tube contains 15 grams of glucose (net weight of tube = 37.5 grams., Routine ondansetron (ZOFRAN) injection 4 mg 4 mg, Intravenous, EVERY 8 HOURS PRN, Starting on Sat03/05/19 at 1208, Until Sat03/09/19 at 1715, Nausea oxyCODONE (ROXICODONE) immediate release tablet 5 mg 5 mg, Oral, EVERY 4 HOURS PRN, Starting on Sat03/05/19 at 2056, Until Sat03/09/19 at 1715, Pain, Routine Linked Groups Order Group 1: acetaminophen (OFIRMEV) injection 1,000 mg (COMPLETED) 1,000 mg, Intravenous, at 400 mL/hr, Administer over 15 Minutes, EVERY 6 HOURS SCHEDULED, 4 doses, First dose on Sat03/05/19 at 1230, Last dose on Sat03/06/19 at 0600, Maximum dose of acetaminophen is 4000 mg from all sources in 24 hours., Routine, Is ketorolac (Toradol) IV contraindicated? Yes, Can this patient tolerate oral medications or suppositories? No Followed by acetaminophen (TYLENOL) tablet 1,000 mgJump to med 1,000 mg, Oral, EVERY 6 HOURS SCHEDULED, First dose on Sat03/06/19 at 1200, Until Discontinued, Maximum dose of acetaminophen is 4000 mg from all sources in 24 hours., Routine Group 2: aspirin chewable tablet 81 mgJump to med 81 mg, Oral, DAILY, First dose on Sat03/05/19 at 1230, Until Discontinued, Routine Or aspirin suppository 300 mg (CANCELED) 300 mg, Rectal, DAILY, First dose on Sat03/05/19 at 1230, Until Discontinued, Routine Group 3: POCT Fingerstick Glucose (CANCELED) Routine, 4 TIMES DAILY BEFORE MEALS & AT BEDTIME, First occurrence on Sat03/06/19 at 1100, Until Specified, Consider choosing FOUR TIMES A DAY BEFORE MEALS AND AT BEDTIME as frequency for: Patients who have good hypoglycemia awareness: -Patients who are eating meals during the day and sleeping at night -Patient who are otherwise stable And insulin lispro (HumaLOG) VIAL injection 1-4 UnitsJump to med 1-4 Units, Subcutaneous, 3 TIMES DAILY BEFORE MEALS, First dose on Sat03/06/19 at 1130, Until Discontinued, CORRECTION BOLUS Sensitive to insulin lean patient or total daily dose of all insulin needed to achieve glycemic control less than 30 units BG 140 - 160 Give 1 unit BG 161 - 200 Give 2 units BG 201 - 240 Give 3 units BG greater than 240, give 4 units and recheck BG in 2 hours. If less than 240 after two hours, give no insulin and resume prior schedule. If BG remains greater than 240, repeat 4 units (no more than three times) & call for new basal insulin orders. DO NOT hold if NPO, unless specifically told to do so., Routine Group 4: pantoprazole (PROTONIX) tablet 40 mgJump to med 40 mg, Oral, DAILY, First dose on Sat03/05/19 at 1300, Until Discontinued, DO NOT CRUSH OR OPEN If unable to take PO, may give IV Or pantoprazole (PROTONIX) injection 40 mg (CANCELED) 40 mg, Intravenous, DAILY, First dose on Sat03/05/19 at 1300, Until Discontinued, Reconstitute with 10 mL of normal saline to a concentration of 4 mg/mL and infuse slowly over 2 minutes. , Routine Group 5: glucose (GLUTOSE) 40% oral gelJump to med 15-30 g, Buccal, EVERY 30 MIN PRN, Starting on Sat03/06/19 at 0947, Until Sat03/09/19 at 1715, Low blood sugar, For BG 50-70 mg/dL: Oral treatment preferred:?? If able to drink, give 120 mL Juice or Regular (not diet) soda OR If NPO, give 15 gram glucose 40% oral gel massaged into buccal mucosa OR if unconscious or uncooperative, give 12.5 gram (25 mL) Dextrose 50% IV OR, if no IV access, give 1 mg Glucagon IM. For BG less than 50 mg/dL: Oral treatment preferred:?? If able to drink, give 240 mL Juice or Regular (not diet) soda OR If NPO, give 30 gram glucose 40% oral gel massaged in buccal mucosa OR if unconscious or uncooperative, give 25 gram (50 mL) Dextrose 50% IV OR, if no IV access, give 1 mg Glucagon IM. Recheck BG in 30 minutes. May repeat juice, gel, dextrose or glucagon once per episode. To avoid extravasation, push Dextrose 50% SLOWLY (3 mL over 1 minute) in a patent, running IV, preferably a central line. For persistent hypoglycemia, consider longer- acting treatment for the duration of the active insulin. 1 tube contains 15 grams of glucose (net weight of tube = 37.5 grams., Routine Or dextrose 50% intravenous solution 25-50 mLJump to med 25-50 mL (12.5-25 g), Intravenous, EVERY 1 HOUR PRN, Starting on Sat03/06/19 at 0947, Until Sat03/09/19 at 1715, Low blood sugar, For BG 50-70 mg/dL: Oral treatment preferred:?? If able to drink, give 120 mL Juice or Regular (not diet) soda OR If NPO, give 15 gram glucose 40% oral gel massaged into buccal mucosa OR if unconscious or uncooperative, give 12.5 gram (25 mL) Dextrose 50% IV OR, if no IV access, give 1 mg Glucagon IM. For BG less than 50 mg/dL: Oral treatment preferred:?? If able to drink, give 240 mL Juice or Regular (not diet) soda OR If NPO, give 30 gram glucose 40% oral gel massaged in buccal mucosa OR if unconscious or uncooperative, give 25 gram (50 mL) Dextrose 50% IV OR, if no IV access, give 1 mg Glucagon IM. Recheck BG in 30 minutes. May repeat juice, gel, dextrose or glucagon once per episode. To avoid extravasation, push Dextrose 50% SLOWLY (3 mL over 1 minute) in a patent, running IV, preferably a central line. For persistent hypoglycemia, consider longer-acting treatment for the duration of the active insulin., Routine Or glucagon (human recombinant) injection SolR 1 mgJump to med 1 mg, Intramuscular, EVERY 1 HOUR PRN, Starting on Sat03/06/19 at 0947, Until 03/09/19 at 1715, Low blood sugar, For BG 50-70 mg/dL: Oral treatment preferred:?? If able to drink, give 120 mL Juice or Regular (not diet) soda OR If NPO, give 15 gram glucose 40% oral gel massaged into buccal mucosa OR if unconscious or uncooperative, give 12.5 gram (25 mL) Dextrose 50% IV OR, if no IV access, give 1 mg Glucagon IM. For BG less than 50 mg/dL: Oral treatment preferred:?? If able to drink, give 240 mL Juice or Regular (not diet) soda OR If NPO, give 30 gram glucose 40% oral gel massaged in buccal mucosa OR if unconscious or uncooperative, give 25 gram (50 mL) Dextrose 50% IV OR, if no IV access, give 1 mg Glucagon IM. Recheck BG in 30 minutes. May repeat juice, gel, dextrose or glucagon once per episode. To avoid extravasation, push Dextrose 50% SLOWLY (3 mL over 1 minute) in a patent, running IV, preferably a central line. For persistent hypoglycemia, consider longer-acting treatment for the duration of the active insulin., Routine documented in this encounter Care Teams Real Estate Economist Relationship Specialty Start Date End Date Angie Alonzo MD [id number] [place] [id number] PCP - General Family Medicine 06/25/17 documented as of this encounter
--- OUTSIDE RECORDS SUMMARY | 2024-03-11 15:15 | XMS_ITS | Encounter Summary ---
[place] [address] Care Team Providers Care Sales Strategy Manager Name Role Phone Angie Alonzo MD Primary Care Provider [phone] Reason for Referral * Diagnostic Test (Routine) - Closed Specialty Diagnoses / Procedures Referred By Mima rivera Referred To Contact Radiology Diagnoses SOB (shortness of breath) Pleural effusion, left Procedures IR Chest Tube Placement Left Humberto Alejo PA [facility] [place] [address] [facility] [address] Referral ID Status Reason Start Date Expiration Date V isits Requested Visits Authorized [id number] Closed Specialty Service Requested 04/07/2019 04/06/2020 1 1 Encounter Details Date Type Department Care Team (Late st Contact Info) Description 04/07/2019 2:40 PM EDT Office [place] [address] Ryan Lynch MD S/P CABG x 4; SOB (shortness of breath); Pleural effusion, left Social History Tobacco Use Types Packs/Day Years [...] Sign Reading Time Taken Comments Blood Pressure 132/70 04/07/2019 2:03 PM EDT Pulse 104 04/07/2019 2:03 PM EDT Temperature - - Respiratory Rate - - Oxygen Saturation 98% 04/07/2019 2:03 PM EDT Inhaled Oxygen Concentration - - Weight 93.2 kg (205 lb 8 oz) 04/07/2019 2:03 PM EDT Height 167.6 cm (5' 6) 04/07/2019 2:03 PM EDT Body Mass Index 33.17 04/07/2019 2:03 PM EDT documented in this encounter Progress Notes * Humberto Alejo PA - 04/07/2019 2:40 PM EDT Cardiac Surgery Clinic Note ID: [id number] Cardiac Surgery Attending: Dr. Lynch HPI: Abimbola Dumas is a 73 y.o. female who is s/p CABGx4 on 03/05. She has been doing well at home. She spent the first couple of weeks living with her son and walked up a full flight of stairs regularly.She has also been walking about 10-15 minutes at a time. She does have shortness of breath with this. She takes nothing for pain. She is due to start cardiac rehab next week. She has seen her Rail Signal Worker in [place] and was continued on lasix given her shortness of breath and lower swelling. Denies incision drainage, chest pain, palpitations. Current medications: Outpatient Medications Marked as Taking for the 04/07/19 encounter (Office Visit) with Ryan Lynch MD Medication Sig Dispense Refill ??? amLODIPine (NORVASC) 10 mg Tablet Take 5 mg by mouth daily. ??? furosemide (LASIX) 20 mg Tablet TK 1 T PO QD 3 ??? potassium chloride (K-DUR/KLOR-CON) 20 mEq Tab Sust.Rel. Particle/Crystal TAKE 1 TABLET BY MOUTH ONCE DAILY 4 ??? acetaminophen (TYLENOL) 500 mg Tablet Take 2 tablets by mouth every 6 hours. ??? metoprolol tartrate (LOPRESSOR) 25 mg Tablet Take 1 tablet by mouth 2 times daily. 60 tablet 2 ??? senna-docusate (PERICOLACE) 8.6-50 mg Tablet Take 2 tablets by mouth daily. ??? tamoxifen (NOLVADEX) 20 mg Tablet Take 1 tablet by mouth daily. 90 tablet 3 ??? METHYLCELLULOSE (CITRUCEL ORAL) Take by mouth daily as needed. ??? pantoprazole (PROTONIX) 20 mg Tablet, Delayed Release (E.C.) Take 20 mg by mouth daily. ??? atorvastatin (LIPITOR) 40 mg Tablet Take 40 mg by mouth daily. ??? blood-glucose meter (FREESTYLE) Kit 1 each by [facility].(Non-Drug; Combo Route) route as needed for Other. ??? aspirin 81 mg Tablet, Chewable Take 81 mg by mouth daily. ??? CALCIUM CARB, CITRATE/VIT D3 (CALCIUM CARB AND CITRATE-VITD3 ORAL) Take by mouth. O: Vitals: 04/07/19 1403 BP: 132/70 Pulse: (!) 104 SpO2: 98% Weight: 93.2 kg (205 lb 8 oz) Height: 167.6 cm (5' 6) Physical exam: General: Sitting in chair. NAD. Pleasant. Neuro: Awake and alert. Moves all extremities with equal strength. Lungs: CTA Heart: RRR, S1S2, no murmurs Abdomen: Soft Ext: WWP, 1-2+ pedal edema Incisions: well healed sternal incision, no click EKG: NSR, rate 90s, no ischemic changes CXR: Small left pleural effusion. No pneumo or consolidation. Sternal cables intact. Assessment/Plan: 73 y.o. female recovering well from CABG. Has a symptomatic small left pleural effusion. -Will set up outpatient IR drainage of left pleural effusion. Hopefully this week if there is room and call the patient. -continue lasix until cardiology follow up in [place] -May resume driving. -May return to work. -May resume unrestricted activities with exception of heavy lifting > 20# for three more weeks. -OK to start cardiac rehab next week. -No further cardiac surgery follow up needed. DW Attending Surgeon. Signed: DUDLEY MARINO [facility] Section of Cardiac Surgery 04/07/2019 documented in this encounter Plan of Treatment Not on file documented as of this encounter Procedures Procedure Name Priority Date/Time Associated Diagnosis Comments EKG 12-LEAD Routine 04/07/2019 3:02 PM EDT S/P CABG x 4 documented in this encounter Results * IR Chest Tube Placement Left (04/10/2019 10:41 AM EDT) Anatomical Region Laterality Modality Chest X-Ray Angiograph y Narrative 04/10/2019 10:43 AM EDT IR PROCEDURE NOTE ?? Procedure: U/S guided left chest tube placement. ?? Indication for Procedure: Per Abimbola Ward??is a 73 y.o.??female??with recent CABG x 4 on 03/05/19. ??Past medical history significant for left breast carcinoma and CAD. ??Patient did will post-operatively; however over she has developed shortness of breath and a left pleural effusion on imaging. ??IR is consulted for left chest tube placement. ?? Patient is to be managed by the cardiac surgery service (Dr. Lynch). ??To akanksha Thomas (Pager [phone]) for chest tube management after placement. ? Procedure events and findings: After obtaining informed consent, pt was positioned sitting on a stretcher. ??U/S showed left pleural fluid. ?? Sterile prep and drape performed, maximum sterile barrier technique was used throughout. Due to the painful nature of the procedure, patient received split doses of intravenous fentanyl from the IR nurse while pulse, pressure, and oxygen saturation were continuously monitored. ?? Access obtained in posterior left chest with U/S guidance with an 18ga needle directed into the pleural space. Guide wire placed. ? The access was dilated over the guide wire and a 10Fr locking pigtail catheter was placed. Catheter position was confirmed with U/S and connected to pleurevac drainage. ?? Medications: Fentanyl 50 mcg IV, 1% Lidocaine <10ccs subcutaneous. ?? Est Blood Loss: <5cc. ?? Complications: ??No immediate. ?? Impression: U/S guided left chest tube placement, 10Fr. ?? Resident/Fellow: ??None. ?? Attending: I, Dr. Oliveira performed this procedure. ? Ryan Lynch MD IMG IR ORDERABLES * EKG 12 Lead (04/07/2019 3:02 PM EDT) Ventricular rate 98 BPM MUSE SYSTEM Atrial Rate 98 BPM MUSE SYSTEM P-R Interval 162 ms MUSE SYSTEM QRS Duration 96 ms MUSE SYSTEM Q-T Interval 362 ms MUSE SYSTEM QTC Calculated (Bezet) 462 ms MUSE SYSTEM Calculated P [place] 33 degrees MUSE SYSTEM Calculated R [place] 31 degrees MUSE SYSTEM Calculated T [place] 59 degrees MUSE SYSTEM INTERPRETATION Normal sinus rhythm Nonspecific T wave abnormality When compared with ECG of 05-MAR-2019 22:06, ST no longer elevated in Lateral leads Confirmed by MD Gray, Dewayne ([id number]) on 04/08/2019 8:20:06 AM MUSE SYSTEM 04/07/2019 3:02 PM EDT 04/08/2019 8:20 AM EDT Ryan Lynch MD ECG ORDERABLES MUSE SYSTEM documented in this encounter Visit Diagnoses Diagnosis S/P CABG x 4 Postsurgical aortocoronary bypass status SOB (shortness of breath) Shortness of breath Pleural effusion, left Unspecified pleural effusion SOB (shortness of breath) Shortness of breath Pleural effusion, left Unspecified pleural effusion documented in this encounter Care Teams Sales Strategy Manager Relationship Specialty Start Date End Date Angie Alonzo MD [address] [place] [address] PCP - General Family Medicine 06/25/17 documented as of this encounter
--- OUTSIDE RECORDS SUMMARY | 2024-03-11 15:15 | XMS_ITS | Encounter Summary ---
Author Organization [facility] [place] [address] Care Team Providers Care Electrician Substation Supervisor Name Role Phone Angie Alonzo MD Primary Care Provider [phone] Reason for Referral * Diagnostic Test (Routine) - Closed Specialty Diagnoses / Procedures Referred By Mima rivera Referred To Contact Radiology Diagnoses SOB (shortness of breath) Pleural effusion, left Procedures IR Chest Tube Placement Left Humberto Alejo PA [facility] [place] [address] [place] [address] Referral ID Status Reason Start Date Expiration Date V isits Requested Visits Authorized [id number] Closed Specialty Service Requested 04/07/2019 04/06/2020 1 1 Reason for Visit * Diagnostic Test (Routine) - Closed Specialty Diagnoses / Procedures Referred By Mima rivera Referred To Contact Radiology Diagnoses SOB (shortness of breath) Pleural effusion, left Procedures IR Chest Tube Placement Left Humberto Alejo PA [facility] [place] [address] [place] [address] Referral ID Status Reason Start Date Expiration Date V isits Requested Visits Authorized [id number] Closed Specialty Service Requested 04/07/2019 04/06/2020 1 1 Encounter Details Date Type Department Care Team (Latest Contact Info) Description 04/10/2019 8:27 AM EDT - 04/10/2019 1:29 PM EDT Hospital [place] [id number] Ryan Lynch MD SOB (shortness of breath); Pleural effusion, left Discharge Disposition: Home Social History Tobacco Use [...] Sign Reading Time Taken Comments Blood Pressure 136/45 04/10/2019 1:00 PM EDT Pulse 81 04/10/2019 10:35 AM EDT Temperature 37.3 ??C (99.1 ??F) 04/10/2019 10:47 AM E DT Respiratory Rate 15 04/10/2019 10:35 AM EDT Oxygen Saturation 95% 04/10/2019 1:00 PM EDT Inhaled Oxygen Concentration - - Weight - - Height - - Body Mass Index - - documented in this encounter Discharge Instructions * Discharge Instructions* Oxana Richard RN - 04/10/2019 1:42 PM EDT Images from the original note were not included. Chest Tube Removal: What to Expect at Home Your Recovery A chest tube is placed through the chest wall between two ribs. You may have had a chest tube put in to help your collapsed lung expand. Or the tube may have helped drain fluid from a chest infectionor surgery. The tube was removed before you came home. You may have some pain in your chest from the cut (incision) where the tube was put in. For most people, the pain goes away after about 2 weeks. You will have a bandage taped over the wound. Your doctor will remove the bandage and examine the wound in about 2 days. It will take about 3 to 4 weeks for your incision to heal completely. It may leave a small scar that will fade with time. This care sheet gives you a general idea about how long it will take for you to recover. But each person recovers at a different pace. Follow the steps below to feel better as quickly as possible. How can you care for yourself at home? Activity ? Rest when you feel tired. Getting enough sleep will help you recover. ? Try to walk each day. Start by walking a little more than you did the day before. Bit by bit,increase the amount you walk. Walking boosts blood flow and helps prevent pneumonia and constipation. ? Avoid strenuous activities, such as bicycle riding, jogging, weight lifting, or aerobic exercise, until your doctor says it is okay. ? How soon you can return to work or your normal routine depends on what health problems you have. Talk with your doctor about how long it will take you to recover. ? You may shower after your bandage is removed. Pat the cut (incision) dry. Do not take a bath for 2 weeks after your chest tube is out, or until your doctor tells you it is okay. ? Practice deep breathing exercises as directed by your doctor. Coughing exercises also can help drain fluid out of your chest. Diet ? You can eat your normal diet. If your stomach is upset, try bland, low-fat foods like plain rice, broiled chicken, toast, and yogurt. ? Drink plenty of fluids (unless your doctor tells you not to). Medicines ? Your doctor will tell you if and when you can restart your medicines. He or she will also give you instructions about taking any new medicines. ? If you take aspirin or some other blood thinner, be sure to talk to your doctor. He or she will tell you if and when to start taking this medicine again. Make sure that you understand exactly what your doctor wants you to do. ? Be safe with medicines. Take pain medicines exactly as directed. ? If the doctor gave you a prescription medicine for pain, take it as prescribed. ? If you are not taking a prescription pain medicine, ask your doctor if you can take an eaiv-bsg-rcnkucs medicine. ? Take your antibiotics as directed. Do not stop taking them just because you feel better. You need to take the full course of antibiotics. Incision care ? Keep the incision dry as it heals. You will have a bandage over it to help the incision heal and protect it. Your doctor will tell you how to take care of this. Other instructions ? Do not smoke. Smoking makes lung problems worse. If you need help quitting, talk to your doctor about stop-smoking programs and medicines. These can increase your chances of quitting for good. Follow-up care is a [place] part of your treatment and safety. Be sure to make and go to all appointments, and call your doctor if you are having problems. It's also a good idea to know your test resultsand keep a list of the medicines you take. When should you call for help? Call 911 anytime you think you may need emergency care. For example, call if: ? You passed out (lost consciousness). ? You have severe trouble breathing. ? You have sudden chest pain and shortness of breath, or you cough up blood. ??Call your doctor now or seek immediate medical care if: ? You have trouble breathing. ? Your shortness of breath is getting worse. ? Bright red blood soaks through the bandage over your incision. ? You have a fever. ??Watch closely for any changes in your health, and be sure to contact your doctor if: ? You do not get better as expected. Where can you learn more? Visit our health information library at [email or web address]. You can also view health information on [employer], your personal patient account. Log in or sign uptoday. Enter U748 in the search box to learn more about Chest Tube Removal: What to Expect at Home. Current as of: December 07, 2018 Content Version: 12.2 ?? [id number] [employer]. Care instructions adapted under license by [facility]. If you have questions about a medical condition or this instruction, always ask your healthcare professional. [employer] disclaims any warranty or liability for your use of this information. documented in this encounter Medications at Time [...] blood-glucose meter (FREESTYLE) Kit 1 each by [facility].(Non-Drug; Combo Route) route as needed for Other. aspirin 81 mg Tablet, Chewable Take 81 mg by mouth daily. senna-docusate (PERICOLACE) 8.6-50 mg Tablet Take 2 tablets by mouth daily. 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 90 tablet 3 09/16/2018 09/17/2019 CALCIUM CARB, CITRATE/VIT D3 (CALCIUM CARB AND CITRATE-VITD3 ORAL) Take by mouth 2 times daily. 06/18/2023 documented as of this encounter Progress Notes * Emma Guevara RN - 04/08/2019 11:26 AM EDT [facility] NURSING DATABASE Name: ABIMBOLA JONES Date of : 1945 AGE: 73 y.o. Address: [address] [address] (home) Mobile: No relevant phone numbers on file. Referring Provider: Humberto Alejo REASON FOR VISIT: Order Questions Answers Where will study be performed? [facility] Radiology [120] Is the patient on anticoagulant / anitplatelet therapy ? Aspirin Reason for exam and clinical history: shortness of breath, left pleural effusion on 1 mo f/u cxr s/p cabgx4 Exam/Procedure requested: left pigtail with same day discharge Does patient require sedation? None Plan Planned procedure: Left Chest Tube Placement (04/08/19708) Labs to be performed day of procedure: No labs (04/08/19708) Sedation: fentanyl only (04/08/19708) Prophylactic antibiotic : None (04/08/19708) Contrast: No contrast (04/08/19708) Additional medications for procedure: Lidocaine (04/08/19708) Planned access site: Left Posterior Thorax (04/08/19708) Position: (Sitting) (04/08/19708) Consent: Pending (04/08/19708) Allergies Allergen Reactions ??? Penicillins Pertinent PMH: Patient Active Problem List Diagnosis Code ??? Malignant neoplasm of upper-inner quadrant of left breast in female, estrogen receptor ujaojgolI53.212, Z17.0 ??? CAD (coronary artery disease) I25.10 ??? S/P CABG (coronary artery bypass graft) Z95.1 Pertinent PSH: Past Surgical History: Procedure Laterality Date ??? [...] 8.78) performed by Ashley Farooq MD at [facility] MAIN OR ??? PRO BX/REMV, LYMPH NODE, DEEP AXILL Left 07/04/2017 BIOPSY OR EXCISION OF LYMPH NODE(S), OPEN, DEEP AXILLARY NODE(S) (WRVU 6.43) performed by Ashley Farooq MD at [facility] MAIN OR ??? PRO CABG, ARTERIAL, SINGLE N/A 03/05/2019 @CABG, USING ARTERIAL GRAFT;SINGLE ARTERIAL GRAFT (WRVU 33.75) performed by Ryan Lynch MD at [facility] MAIN OR ??? PRO CABG, ARTERY-VEIN, THREE N/A 03/05/2019 @CABG; 3 VENOUS GRAFTS & ARTERIAL GRAFT (WRVU 10.49) performed by Ryan Lynch MD at [facility] MAIN OR ??? PRO ENDOSCOPY W/VIDEO-ASST VEIN HARVEST, CABG N/A 03/05/2019 ENDOSCOPIC HARVEST VEIN(S) FOR CABG (WRVU 0.31) performed by Ryan Lynch MD at [facility] MAIN OR ??? PRO INTRAOP SENTINEL LYMPH ID W/DYE INJECTION Left 07/04/2017 INTRAOPERATIVE ID (MAPPING) SENTINEL LYMPH NODE,INCLUDES INJECTION (WRVU 2.5) performed by Ashley Farooq MD at [facility] MAIN OR ??? PRO MASTECTOMY, PARTIAL Left 07/04/2017 MASTECTOMY PARTIAL (WRVU 10.13) performed by Ashley Farooq MD at [facility] MAIN OR Date/Procedure Meds given/comments Left Chest Tube Fetanyl 50 mcg Laboratory Results: Lab Results Component Value Date INR 1.6 03/05/2019 Lab Results Component Value Date CREATININE 0.56 (L) 03/08/2019 Lab Results Component Value Date K 4.0 03/09/2019 Lab Results Component Value Date PLATELET 203 03/08/2019 Medications: Prior to Admission medications Medication Sig Start Date End Date Taking? Authorizing Provider amLODIPine (NORVASC) 10 mg Tablet Take 5 mg by mouth daily. PROVIDER, HISTORICAL furosemide (LASIX) 20 mg Tablet TK 1 T PO QD 03/25/19 PROVIDER, HISTORICAL potassium chloride (K-DUR/KLOR-CON) 20 mEq Tab Sust.Rel. Particle/Crystal TAKE 1 TABLET BY MOUTH ONCE DAILY 02/23/19 PROVIDER, HISTORICAL acetaminophen (TYLENOL) 500 mg Tablet Take 2 tablets by mouth every 6 hours. 03/09/19 Sabrina Sofia PA metoprolol tartrate (LOPRESSOR) 25 mg Tablet Take 1 tablet by mouth 2 times daily. 03/09/19 Sabrina Sofia PA senna-docusate (PERICOLACE) 8.6-50 mg Tablet Take 2 tablets by mouth daily. 03/09/19 Sabrina Sofia PA tamoxifen (NOLVADEX) 20 mg Tablet Take 1 tablet by mouth daily. 09/16/18 Kalyan Damico MD METHYLCELLULOSE (CITRUCEL ORAL) Take by mouth daily as needed. PROVIDER, HISTORICAL pantoprazole (PROTONIX) 20 mg Tablet, Delayed Release (E.C.) Take 20 mg by mouth daily. PROVIDER, HISTORICAL atorvastatin (LIPITOR) 40 mg Tablet Take 40 mg by mouth daily. PROVIDER, HISTORICAL blood-glucose meter (FREESTYLE) Kit 1 each by [facility].(Non-Drug; Combo Route) route as needed for Other. PROVIDER, HISTORICAL aspirin 81 mg Tablet, Chewable Take 81 mg by mouth daily. PROVIDER, HISTORICAL CALCIUM CARB, CITRATE/VIT D3 (CALCIUM CARB AND CITRATE-VITD3 ORAL) Take by mouth. PROVIDER, HISTORICAL documented in this encounter H&P Notes * Renato Mann P - 04/08/2019 6:58 AM EDT Images from the original note were not included. INTERVENTIONAL RADIOLOGY FOCUSED H&P and PRE-PROCEDURE NOTE: PCP: Angie Alonzo MD Referring Provider: Humberto Alejo Planned Procedure: Planned procedure: Left Chest Tube Placement Procedure Indication: Order Questions Answers Where will study be performed? [facility] Radiology [120] Is the patient on anticoagulant / anitplatelet therapy ? Aspirin Reason for exam and clinical history: shortness of breath, left pleural effusion on 1 mo f/u cxr s/p cabgx4 Exam/Procedure requested: left pigtail with same day discharge Does patient require sedation? None Presenting Diagnosis/ Complaint: Abimbola Jones is a 73 y.o. female with recent CABG x 4 on 03/05/19. Past medical history significant for left breast carcinoma and CAD. Patient did will post-operatively; however over she has developed shortness of breath and a left pleural effusion on imaging. IR is consulted for left chest tube placement. Patient is to be managed by the cardiac surgery service (Dr. Lynch). To page Lexii Thomas (Pager [phone]) for chest tube management after placement. Past Medical/Surgical History: Patient Active Problem List Diagnosis Code ??? Malignant neoplasm of upper-inner quadrant of left breast in female, estrogen receptor [id number], Z17.0 ??? CAD (coronary artery disease) I25.10 ??? S/P CABG (coronary artery bypass graft) Z95.1 Past Medical History: Diagnosis Date ??? Antiplatelet [...] 8.78) performed by Ashley Farooq MD at [facility] OR ??? PRO BX/REMV, LYMPH NODE, DEEP AXILL Left 07/04/2017 BIOPSY OR EXCISION OF LYMPH NODE(S), OPEN, DEEP AXILLARY NODE(S) (WRVU 6.43) performed by Ashley Farooq MD at [facility] OR ??? PRO CABG, ARTERIAL, SINGLE N/A 03/05/2019 @CABG, USING ARTERIAL GRAFT;SINGLE ARTERIAL GRAFT (WRVU 33.75) performed by Ryan Lynch MD at [facility] OR ??? PRO CABG, ARTERY-VEIN, THREE N/A 03/05/2019 @CABG; 3 VENOUS GRAFTS & ARTERIAL GRAFT (WRVU 10.49) performed by Ryan Lynch MD at [facility] OR ??? PRO ENDOSCOPY W/VIDEO-ASST VEIN HARVEST, CABG N/A 03/05/2019 ENDOSCOPIC HARVEST VEIN(S) FOR CABG (WRVU 0.31) performed by Ryan Lynch MD at [facility] OR ??? PRO INTRAOP SENTINEL LYMPH ID W/DYE INJECTION Left 07/04/2017 INTRAOPERATIVE ID (MAPPING) SENTINEL LYMPH NODE,INCLUDES INJECTION (WRVU 2.5) performed by Ashley Farooq MD at [facility] MAIN OR ??? PRO MASTECTOMY, PARTIAL Left 07/04/2017 MASTECTOMY PARTIAL (WRVU 10.13) performed by Ashley Farooq MD at [facility] MAIN OR Medications: Current Outpatient Medications on File Prior to Encounter Medication Sig Dispense Refill ??? amLODIPine (NORVASC) [...] blood-glucose meter (FREESTYLE) Kit 1 each by [facility].(Non-Drug; Combo Route) route as needed for Other. ??? aspirin 81 mg Tablet, Chewable Take 81 mg by mouth daily. ??? CALCIUM CARB, CITRATE/VIT D3 (CALCIUM CARB AND CITRATE-VITD3 ORAL) Take by mouth. No current facility-administered medications on file prior to encounter. Allergies: Penicillins Social History and Habits: Social History Socioeconomic History ??? Marital status: Spouse name: Not on file ??? Number of children: Not on file ??? Years of education: Not on file ??? Highest education level: Not on file Occupational History ??? Not on file Social Needs ??? Financial resource strain: Not on file ??? Food insecurity: Worry: Not on file Inability: Not on file ??? Transportation needs: Medical: Not on file Non-medical: Not on file Tobacco Use ??? Smoking status: Never Smoker ??? Smokeless tobacco: Never Used Substance and Sexual Activity ??? Alcohol use: Never Comment: very occasional ??? Drug use: No ??? Sexual activity: Not on file Lifestyle ??? Physical activity: Days per week: Not on file Minutes per session: Not on file ??? Stress: Not on file Relationships ??? Social connections: Talks on phone: Not on file Gets together: Not on file Attends protestant service: Not on file Active member of club or organization: Not on file Attends meetings of clubs or organizations: Not on file Relationship status: Not on file ??? Intimate partner violence: Fear of current or ex partner: Not on file Emotionally abused: Not on file Physically abused: Not on file Forced sexual activity: Not on file Other Topics Concern ??? Not on file Social History Narrative ??? Not on file Significant Family History: Family History Problem Relation Age of Onset ??? Lung Cancer Sister smoker ??? Breast Cancer Neg Hx ??? Ovarian Cancer Neg Hx Pertinent ROS: as per HPI Labs: Lab Results Component Value Date WBC 12.6 (H) 03/08/2019 HCT 29.3 (L) 03/08/2019 PLATELET 203 03/08/2019 INR 1.6 03/05/2019 BUN 24 (H) 03/08/2019 CREATININE 0.56 (L) 03/08/2019 ALKPHOS 60 07/18/2018 AST 19 07/18/2018 ALBUMIN 3.9 07/18/2018 BILIDIR 0.1 07/18/2018 BILITOT 0.3 07/18/2018 ALT 17 07/18/2018 PROT 6.4 07/18/2018 Imaging: Chest Radiograph - 04/07/19 Physical Exam: Pending (to be performed in angio the day of procedure) ASA: Pending (to be assessed in angio the day of procedure) Mallampati Class: Pending (to be assessed in angio the day of procedure) Assessment: 73 y.o. female with recent CABG x 4 on 03/05/19. Past medical history significant for left breast carcinoma and CAD. Patient did will post- operatively; however over she has developed shortness of breath and a left pleural effusion on imaging. IR is consulted for left chest tube placement. Plan: Plan Planned procedure: Left Chest Tube Placement Labs to be performed day of procedure: No labs Sedation: fentanyl only Prophylactic antibiotic : None Contrast: No contrast Additional medications for procedure: Lidocaine Planned access site: Left Posterior Thorax Position: (Sitting) Consent: Pending 04/08/2019 documented in this encounter Procedure Notes * Adis Oliveira MD - 04/10/2019 10:38 AM EDT IR PROCEDURE NOTE Procedure: U/S guided left chest tube placement. Indication for Procedure: Per Abimbola Ward Evie Jones is a 73 y.o. female with recent CABG x 4 on 03/05/19. Past medical history significant for left breast carcinoma and CAD. Patient did will post- operatively; however over she has developed shortness of breath and a left pleural effusion on imaging. IR is consulted for left chest tube placement. ?? Patient is to be managed by the cardiac surgery service (Dr. Lynch). To page Lexii Thomas (Pager [phone]) for chest tube management after placement. Procedure events and findings: After obtaining informed consent, pt was positioned sitting on a stretcher. U/S showed left pleural fluid. Sterile prep and drape performed, maximum sterile barrier technique was used throughout. Due to the painful nature of the procedure, patient received split dosesof intravenous fentanyl from the IR nurse while pulse, pressure, and oxygen saturation were continuously monitored. Access obtained in posterior left chest with U/S guidance with an 18ga needle directed into the pleural space. Guide wire placed. The access was dilated over the guide wire and a 10Fr locking pigtail catheter was placed. Catheterposition was confirmed with U/S and connected to pleurevac drainage. Medications: Fentanyl 50 mcg IV, 1% Lidocaine <10ccs subcutaneous. Est Blood Loss: <5cc. Complications: No immediate. Impression: U/S guided left chest tube placement, 10Fr. Resident/Fellow: None. Attending: Dr. Roxanne Partida performed this procedure. documented in this encounter Plan of Treatment Not on file documented as of this encounter Procedures Procedure Name Priority Date/Time Associated Diagnosis Comments XR CHEST PA AND LATERAL Routine 04/10/2019 1:37 PM EDT IR CHEST TUBE PLACEMENT LEFT Routine 04/10/2019 10:41 AM EDT SOB (shortness of breath) Pleural effusion, left documented in this encounter Results * XR [...] please contact the number below. Lexii Thomas MAINFRAME SYSTEMS PROGRAMMER IMG DX ORDERABLES * IR Chest Tube Placement Left (04/10/2019 [...] the cardiac surgery service (Dr. Lynch). ??To page Lexii Thomas (Pager [phone]) for chest tube management after placement. ? [...] placement, 10Fr. ?? Resident/Fellow: ??None. ?? Attending: Dr. Roxanne Partida performed this procedure. ? Ryan Lynch MD IM IR ORDERABLES documented in this encounter Visit Diagnoses Diagnosis SOB (shortness of breath) Shortness of breath Pleural effusion, left Unspecified pleural effusion documented in this encounter Administered Medications Inactive Administered Medications - up to 3 most recent administrations Medication Order MAR Action Action Date Dose Rate Site fentaNYL 50 mcg/mL multi-dose injection 25-50 mcg, Intravenous, EVERY 5 MIN PRN, Starting on Sat04/10/19 at 0952, Until Sat04/10/19 at 1037, Pain, per unit protocol, - Start dose 50 mcg (reduce dose to 25 mcg if history of sedation sensitivity). - Titration dose 25-50 mcg IV, (based on patient response) every 3 minutes PRN, to maintain procedural pain less than 2 per pain Scale. Maximum dose: 50 mcg/dose, 250 mcg/hour For use in Interventional Radiology (IR) only for procedural sedation with direct provider supervision and verbal order., Angio/IR (Intra-Procedure), Routine Given 04/10/2019 10:22 AM EDT 25 mcg Given 04/10/2019 10:19 AM EDT 25 mcg documented in this encounter Care Teams Electrician Substation Supervisor Relationship Specialty Start Date End Date Angie Alonzo MD [facility] LETICIA KAPADIA [address] [place] [id number] PCP - General Family Medicine 06/25/17 documented as of this encounter
--- OUTSIDE RECORDS SUMMARY | 2024-03-11 15:16 | XMS_ITS | Encounter Summary ---
Author Organization [facility] Address [facility] [place] [address] Care Team Providers Care Biodiesel Product Development Manager Name Role Phone Angie Alonzo MD Primary Care Provider Encounter Details Date Type Department Care Team (Late st Contact Info) Description 02/24/2019 3:20 PM EDT Clinical Support Same Day at [facility] [place] [address] Social History Tobacco Use Types Packs/Day Years [...] - Inhaled Oxygen Concentration - - Weight 97.5 kg (215 lb) 02/24/2019 2:46 PM EDT Height 167.6 cm (5' 6) 02/24/2019 2:46 PM EDT Body Mass Index 34.7 02/24/2019 2:46 PM EDT documented in this encounter Plan of Treatment Not on file documented as of this encounter Visit Diagnoses Not on filedocumented in this encounter Care Teams Biodiesel Product Development Manager Relationship Specialty Start Date End Date Angie Alonzo MD Sanjiv [address] [place] [address] PCP - General Family Medicine 06/25/17 documented as of this encounter
--- OUTSIDE RECORDS SUMMARY | 2024-03-11 15:16 | XMS_ITS | Encounter Summary ---
Author Organization [facility] Address [facility] [place] [address] Care Team Providers Care Senior Cytotechnologist Name Role Phone Angie Alonzo MD Primary Care Provider [phone] Encounter Details Date Type Department Care Team (Late st Contact Info) Description 12/03/2017 Telephone Endocrinology at [facility] [place] [phone] Malaika Prado LPN Social History Tobacco Use Types Packs/Day Years Used Date Smoking Tobacco: Never Smokeless Tobacco: Never Sex and Gender Information Value Date Recorded Sex Assigned at Not on file Gender Identity Not on file Sexual Orientation Not on file documented as of this encounter Miscellaneous Notes * Telephone Encounter - Malaika Prado LPN - 12/03/2017 8:31 AM EDT Images from the original note were not included. Abimbola Dumas?? Female, 72 y.o., 1945 Weight: 95.3 kg (210 lb) Home: PCP: Angie Alonzo MD myD-H: Code Exp Next Appt: 01/14/2018 ?? Message Received: 6 days ago ? Hira Jeff, DO Malaika Prado LPN ? Please contact cytology and asked them to send for molecular testing. ? Called cytology spoke with Ayse Archuleta who was read above message. documented in this encounter Plan of Treatment Not on file documented as of this encounter Visit Diagnoses Not on filedocumented in this encounter Care Teams Senior Cytotechnologist Relationship Specialty Start Date End Date Angie Alonzo MD [address] [place] [address] PCP - General Family Medicine 06/25/17 documented as of this encounter
--- OUTSIDE RECORDS SUMMARY | 2024-03-11 15:16 | XMS_ITS | Encounter Summary ---
Author Organization [facility] Address [facility] [place] [address] Care Team Providers Care Radiation Therapy Technician Name Role Phone Angie Alonzo MD Primary Care Provider [phone] Encounter Details Date Type Department Care Team (Latest Contact Info) Description 02/24/2019 3:05 PM EDT Laboratory Appointment Lab at [facility] [place] [phone] Coronary artery disease of [place] heart with stable angina pectoris, unspecified vessel or lesion type Social History Tobacco Use Types Packs/Day Years [...] Procedure Name Priority Date/Time Associated Diagnosis Comments ABORH RECHECK STATUS Routine 02/24/2019 3:52 PM EDT HEMOGRAM Routine 02/24/2019 3:52 PM EDT Coronary artery disease of [place] heart with stable angina pectoris, unspecified vessel or lesion type DIFFERENTIAL, AUTOMATED Routine 02/24/2019 3:52 PM EDT Coronary artery disease of [place] heart with stable angina pectoris, unspecified vessel or lesion type HC ANTIBODY DETECTION,CAPTURE-R Routine 02/24/2019 3:52 PM EDT Coronary artery disease of [place] heart with stable angina pectoris, unspecified vessel or lesion type ABO/RH TYPING Routine 02/24/2019 3:52 PM EDT Coronary artery disease of [place] heart with stable angina pectoris, unspecified vessel or lesion type HC CBC,PLT & AUTO DIFF Routine 02/24/2019 3:52 PM EDT Coronary artery disease of [place] heart with stable angina pectoris, unspecified vessel or lesion type ANTIBODY SCREEN Routine 02/24/2019 3:52 PM EDT Coronary artery disease of [place] heart with stable angina pectoris, unspecified vessel or lesion type HC VENIPUNCTURE Routine 02/24/2019 3:52 PM EDT Coronary artery disease of [place] heart with stable angina pectoris, unspecified vessel or lesion type documented in this encounter Results * ABORH Recheck Status (02/24/2019 3:52 PM EDT) Pathologist [facility] ABORH Recheck Order Order Placed [facility] ABORH Type Recheck Complete [facility] Blood specimen (specimen) 02/24/2019 3:52 PM EDT 02/24/2019 4:01 PM EDT Narrative Resulting Agency Comment Spec In Lab Ryan Lynch MD BLOOD BANK LAB [facility]RZEJ CADET [facility] [place] [address] * Antibody screen (02/24/2019 3:52 PM EDT) Pathologist [facility] Ab Screen Interp Negative [facility] Expires at [id number] on: 03/08/2019 [facility] Blood specimen (specimen) 02/24/2019 3:52 PM EDT 02/24/2019 4:01 PM EDT Narrative Resulting Agency Comment Spec In Lab Ryan Lynch MD BLOOD BANK LAB [facility] [place] [address] * ABO/Rh Typing (02/24/2019 3:52 PM EDT) Pathologist [facility] ABORH Type O Neg [facility] Blood specimen (specimen) 02/24/2019 3:52 PM EDT 02/24/2019 4:01 PM EDT Narrative Resulting Agency Comment Spec In Lab Ryan Lynch MD BLOOD BANK LAB [facility]ren[facility]ICHI [facility] [place] [address] * Differential, Automated (02/24/2019 3:52 PM EDT) Neutrophil % 60.1 % [facility] Neutrophil Absolute 3.63 1.70 - 6.10 x10(3)/[facility] Lymph % 27.4 % [facility] Lymphocytes Abs 1.6 0.9 - 3.2 x10(3)/[facility] Monocyte % 10.0 % [facility] Monocyte Abs 0.6 0.3 - 0.9 x10(3)/[facility] Eos % 1.7 % [facility] Eosinophils Abs 0.1 0.0 - 0.4 x10(3)/[facility] Basophil % 0.5 % [facility] Baso Absolute 0.0 0.0 - 0.1 x10(3)/[facility] Immature Gran % 0.30 % [facility] Comment: Immature granulocytes(IG's)percentage and absolute count will include metamyelocytes, myelocytes, and promyelocytes. Blood smears from CBCs yielding IG's will be scanned manually for concordance. If this scan disagrees with the automated IG or if promyelocytes are noted, a manual differential will be performed. Immature Gran Absolute 0.02 0.00 - 0.04 x10(3)/[facility] Blood specimen (specimen) 02/24/2019 3:52 PM EDT 02/24/2019 4:07 PM EDT Narrative Resulting Agency Comment Spec In Lab Ryan Lynch MD HEMATOLOGY ORDERABL ES Performing Organization Address City/[facility]/ZIP Co de Phone Number [facility] [place] [address] * (ABNORMAL) Hemogram (02/24/2019 3:52 PM EDT) White Blood Cell 6.0 4.0 - 9.5 x10(3)/mc L [facility] Red Blood Cell 4.21 4.00 - 5.21 x10(6)/mc L [facility] Hemoglobin 13.1 11.7 - 15.5 gm/dL [facility] Hematocrit 39.8 35.7 - 45.8 % [facility] Mean Cell Volume 94.5(H) 82.6 - 94.4 fL [facility] Mean Cell Hemoglobin 31.1 27.1 - 32.0 pg [facility] Mean Cell Hemoglobin Concentration 32.9 31.7 - 35.0 gm/dL [facility] Platelet 277 145 - 357 x10(3)/mc L [facility] RDW Standard Deviation 47.8(H) 37.0 - 46.0 fL [facility] RDW coefficient of variation 13.9 11.5 - 14.1 % [facility] Mean Platelet Volume 8.7 7.6 - 12.9 fL [facility] NRBC% auto 0.0 % [facility] NRBC Absolute 0.000 0.000 - 0.000 x10(3)/mc L [facility] Blood specimen (specimen) 02/24/2019 3:52 PM EDT 02/24/2019 4:07 PM EDT Narrative Resulting Agency Comment Spec In Lab Ryan Lynch MD HEMATOLOGY ORDERABL ES Performing Organization Address City/[facility]/ZIP Co de Phone Number [facility] [place] [address] * (ABNORMAL) Basic Metabolic Panel (non-fasting) (02/24/2019 3:52 PM EDT) Glucose 106 65 - 199 mg/dL [facility] Comment:Diabetes: >=200 mg/d L plus symptoms Blood Urea Nitrogen 18 8 - 18 mg/dL [facility] Creatinine 0.53(L) 0.70 - 1.20 mg/dL [facility] Sodium 141 135 - 145 mmol/L [facility] Potassium 3.6 3.5 - 5.0 mmol/L [facility] Comment: Please note: ??Patients with WBC >100,000 may have falsely elevated Potassium levels. ??For accurate Potassium quantification in these patients send serum separator tube (gold top) for subsequent determinations. ??Contact the Clinical Chemistry Laboratory if there are any questions. Chloride 105 98 - 107 mmol/L [facility] Carbon Dioxide 23 22 - 31 mmol/L [facility] Anion Gap 13 5 - 15 mmol/L [facility] Calcium 9.3 8.5 - 10.5 mg/dL [facility] Est Glomerular Filtration Rate 93 >=60 mL/min/1. 73 m?? [facility] Comment: The eGFR was calculated using the CKD-EPI equation. As with all creatinine based estimates of kidney function, eGFR values calculated with the CKD-EPI equation are not accurate in patients with acute kidney failure, extremes of body mass or the acutely ill. http://[employer]/[facility]ULSAnkf eGFR 108 >=60 mL/min/1. 73 m?? [facility] Comment: The eGFR was calculated using the CKD-EPI equation. As with all creatinine based estimates of kidney function, eGFR values calculated with the CKD-EPI equation are not accurate in patients with acute kidney failure, extremes of body mass or the acutely ill. http://[employer]/[facility]ULSAnkf Blood specimen (specimen) 02/24/2019 3:52 PM EDT 02/24/2019 4:07 PM EDT Narrative Resulting Agency Comment Spec In Lab Ryan Lynch MD CHEMISTRY ORDERABLE S [facility] [place] [address] documented in this encounter Visit Diagnoses Diagnosis Coronary artery disease of [place] heart with stable angina pectoris, unspecified vessel or lesion type documented in this encounter Care Teams Radiation Therapy Technician Relationship Specialty Start Date End Date Angie Alonzo MD [facility] [address] [facility] [address] [place] [address] PCP - General Family Medicine 06/25/17 documented as of this encounter
--- OUTSIDE RECORDS SUMMARY | 2024-03-11 15:16 | XMS_ITS | Encounter Summary ---
Author Organization [facility] Address [facility] [place] [address] Care Team Providers Care Apprenticeship Training Representative Name Role Phone Angie Alonzo MD Primary Care Provider [phone] Encounter Details Date Type Department Care Team (Late st Contact Info) Description 01/20/2019 11:00 AM EDT Office Visit Hematology [place] [address] Kalyan Damico MD [facility] HEMATOLOGY/[place] [address] Malignant neoplasm of upper-inner quadrant of left [...] Sign Reading Time Taken Comments Blood Pressure 133/67 01/20/2019 10:25 AM EDT Pulse 86 01/20/2019 10:23 AM EDT Temperature 36.2 ??C (97.2 ??F) 01/20/2019 10:23 AM E DT Respiratory Rate 18 01/20/2019 10:23 AM EDT Oxygen Saturation 98% 01/20/2019 10:23 AM EDT Inhaled Oxygen Concentration - - Weight 95.1 kg (209 lb 9.6 oz) 01/20/2019 10:23 AM EDT Height 169.5 cm (5' 6.73) 01/20/2019 10:23 AM E DT Body Mass Index 33.09 01/20/2019 10:23 AM EDT documented in this encounter Progress Notes * Kalyan Damico MD - 01/20/2019 11:00 AM EDT Subjective: Patient ID: Abimbola Dumas is a 73 y.o. female with Stage [...] She started tamoxifen on September 16, 2017. The tamoxifen has gone well so far. Her right wrist fracture has healed. She has pain in her left hip, a left hip replacement had been scheduled, but the surgery is delayed pending a cardiology consult to evaluate her heart murmur. She also has pain in her right shoulder, thumbs, and knees. She washospitalized for treatment of a cellulitis of the right lower extremity last month, and she has bilateral ankle edema. The erythema and warmth in her leg resolved with treatment of the cellulitis. She is warm all of the time although she denies hot flashes, and she has no vaginal bleeding or spotting. Review of Systems She denies breast pain or a palpable breast mass, a cough, shortness of breath, chest pain, nausea,vomiting, diarrhea, constipation, headaches, double vision, skin rashes, or any other sites of joint or skeletal pain. The remainder of her review of systems is negative. Objective: Physical Exam Constitutional: Her weight is up 0.2 kg over the past six months, and her BP is 133/67. HENT: Mouth/Throat: Oropharynx is clear and moist. No oropharyngeal exudate. Neck: She has no supraclavicular adenopathy. Cardiovascular: Normal rate and regular rhythm. Murmur heard. Holosystolic murmur Pulmonary/Chest: Breath sounds normal. She has no wheezes. She has no rales. There is a 4 cm scar in the upper inner quadrant of the left breast as well as a 4 cm left axillaryscar. There are no masses within either the left or the right breast, and there is no axillary adenopathy palpable on either side. Abdominal: Soft. She exhibits no distension and no mass. There is no tenderness. There is no guarding. Musculoskeletal: She exhibits edema. She has no pain on percussion over the spine, sternum, ribs, or hips. She has 1+ edema in the ankles without erythema, warmth, or calf tenderness. Lymphadenopathy: She has no cervical adenopathy. Skin: Skin is warm and dry. No erythema. Vitals reviewed. The most recent LFTs from July 18, [...] another two weeks after the replacement. She tells me that she asks her family for rides to our appointments and shewould like to cut back on the number of trips she has to make to [place]. I am willing to refer herto one of my colleagues at [facility], but she is not ready to request a transfer out of my practice. I will therefore see her next in followup in six months. I will ask her to take a total of five years of tamoxifen through August of 2022. She knows to contact me in the interim if she has any concerns over her breast exam or over the tamoxifen. Kalyan Damico MD agricultural agent in Hematology-Oncology documented in this encounter Plan of Treatment Not on file documented as of this encounter Visit Diagnoses Diagnosis Malignant neoplasm of upper-inner quadrant of left breast in female, estrogen receptor positive documented in this encounter Care Teams Apprenticeship Training Representative Relationship Specialty Start Date End Date Angie Alonzo MD [address] [place] [address] PCP - General Family Medicine 06/25/17 documented as of this encounter
--- OUTSIDE RECORDS SUMMARY | 2024-03-11 15:16 | XMS_ITS | Encounter Summary ---
Author Organization [facility] Address [facility] [place] [address] Care Team Providers Care Biodiesel Plant Manager Name Role Phone Angie Alonzo MD Primary Care Provider [phone] Encounter Details Date Type Department Care Team (Late st Contact Info) Description 12/17/2017 Telephone Endocrinology at [facility] [place] [phone] Malaika Prado LPN Social History Tobacco Use Types Packs/Day Years Used Date Smoking Tobacco: Never Smokeless Tobacco: Never Sex and Gender Information Value Date Recorded Sex Assigned at Not on file Gender Identity Not on file Sexual Orientation Not on file documented as of this encounter Miscellaneous Notes * Telephone Encounter - Malaika Prado LPN - 12/17/2017 1:50 PM EDT Images from the original note were not included. Alesia Abimbola Evie?? Female, 72 y.o., 1945 Weight: 95.3 kg (210 lb) Home: PCP: Angie Alonzo MD myD-H: Code Exp Next Appt: 01/14/2018 ?? Message Received: Today ? Hira Jeff, DO Malaika Prado LPN ? Unfortunately, there was an insufficient material for molecular analysis. ??Therefore, I would like her to come back in 2 months (that is the soonest we repeat a fine-needle aspiration). ? Called patient at which time above message was read to her. Patient agrees with plan of care. Call transferred to secretary receptionist 02/26/18 documented in this encounter Plan of Treatment Not on file documented as of this encounter Visit Diagnoses Not on filedocumented in this encounter Care Teams Biodiesel Plant Manager Relationship Specialty Start Date End Date Angie Alonzo MD [address] [place] [address] PCP - General Family Medicine 06/25/17 documented as of this encounter
--- OUTSIDE RECORDS SUMMARY | 2024-03-11 15:16 | XMS_ITS | Encounter Summary ---
Author Organization [facility] Address [facility] [place] [address] Care Team Providers Care Biological Technician Name Role Phone Angie Alonzo MD Primary Care Provider [phone] Reason for Visit * Auth/Cert Specialty Diagnoses / Procedures Referred By Mima t Referred To Contact Diagnoses CAD (coronary artery disease) cad cad Procedures PRO CABG, ARTERIAL, SINGLE PRO CABG, ARTERY-VEIN, THREE PRO ENDOSCOPY W/VIDEO-ASST VEIN HARVEST, CABG @CABG, USING ARTERIAL GRAFT;SINGLE ARTERIAL GRAFT (WRVU 33.75) @CABG; 3 VENOUS GRAFTS & ARTERIAL GRAFT (WRVU 10.49) ENDOSCOPIC HARVEST VEIN(S) FOR CABG (WRVU 0.31) Referral ID Status Reason Start Date Expiration Date Visits Re quested Visits Authorized [id number] 1 1 Encounter Details Date Type Department Care Team (Late st Contact Info) Description 03/05/2019 7:32 AM EDT Anesthesia [place] [address] Bob Bolaños MD [facility] [place] [address] Maria Luz Sapp Anesthesia Record Procedure Summary Procedure Name Responsible Anesthesiologist Anesthesia Start Time Anesthesia Stop Time @CABG, USING ARTERIAL GRAFT;SINGLE ARTERIAL GRAFT (WRVU 33.75) (Chest) Bob Bolaños MD 03/05/19 0732 03/05/19 1210 Events Date Time Event Comment 03/05/2019 0732 AN Verify 0732 Start 0732 An Start Data 0747 An Induction 0751 An Intubation 0802 Quick Note Unable to pass JONATHAN probe. 0810 Anesthesia Ready 0834 Sternotomy 0914 CV Bypass init 0922 An Clamp start 1040 Housekeeper Cleaning Cooking 1050 An Clamp Remove 1055 CP Bypass Ended 1100 Protamine 1121 Chest Closed 1154 an stop data 1210 Recovery or ICU Handoff Mary ent care was transferred to the destination unit staff after review of the patient's medical history, current anesthetic/surgical status and plan, according to the Provider Handoff Checklist. 1210 Stop 03/30/2019 1030 Meds Name Total Midazolam 5 mg fentaNYL 1,000 mcg Propofol 200 mg Propofol INF 256.05 mg PHENYLephrine 400 mcg Vecuronium 20 mg Heparin 26,000 Units Protamine 170 mg Tranexamic Acid 960 mg Tranexamic Acid INF 383.6 mg Insulin Regular Human 3 Units Insulin Regular INF 6.63 Units cefTRIAXone 2 g nitroGLYCERIN INF 2,550 mcg NORepinephrine INF 151 mcg EPINEPHrine INF 257 mcg * Agents Name O2 Air N2O Isoflurane (et) * Blood No blood administrations on file. Lines, Drains, and Airways Type Details Placement Removal Incision 07/04/17; 1511; jose st; 02/26/22 (LDA cleanup utility RA#[id number]); 1715 (LDA cleanup utility RA#[id number]) 07/04/17 1511 by Tania Arroyo RN 02/26/22 1715 by Sonja De Incision 07/04/17; 1512; axil la; 02/26/22 (LDA cleanup utility RA#[id number]); 1715 (LDA cleanup utility RA#[id number]) 07/04/17 1512 by Tania Arroyo RN 02/26/22 1715 by Sonja De Incision 09/10/17; 1500; neck ; laparoscopic puncture (FNA Thyroid Biopsy Site); 02/26/22 (LDA cleanup utility RA#[id number]); 1715 (LDA cleanup utility RA#[id number]) 09/10/17 1500 by Nhan Tariq RN 02/26/22 1715 by Sonja De Drain/Device Site 03/05/19; Right; medial; knee; collapsible closed device; 03/05/19; 2330 03/05/19 0000 by Yara Hernandez RN 03/05/19 2330 by Nikki Gerber CRNA Chest Tube 03/05/19; Right; mediastinum; 28FR straight; 03/06/19; 1005 03/05/19 0000 by Yara Hernandez RN 03/06/19 1005 by Rg Gordillo, GIANNI (RETIRED) Peripheral IV Line - Single Lumen 03/05/19; 0723; metacarpal vein (top of hand), left; wngs-aon-wfrhyh catheter system; 20 gauge, 1 in length; intradermal injection, tolerated well, age-appropriate response; 03/06/19; 0810 03/05/19 0723 by Fina Negro RN 03/06/19 0810 by Rg Gordillo RN Arterial Line 03/05/19; 0743; radi al artery, left; 20 gauge; farhana; Sterile Prep, Sterile Gloves; 03/06/19; 0830 03/05/19 0743 by Ish Shaikh MD 03/06/19 0830 by Rg Gordillo RN Urethral Catheter 03/05/19; 0750; Surg raudel longer than 2 hours; Physician order; indwelling catheter with core temperature probe; hydrophilic coated, latex; 14; inserted at this facility; 1; 5; 10; none; drainage bag to dependent drainage; 03/07/19; 89903/05/19 0750 by Yara Hernandez RN 03/07/19 09 by Rg Gordillo RN ETT Mask Ventilation: Adjunct (2); ETT Type: Cuffed; ETT Size: 7.5 mm; Mac Blade: 3; Notes: Asleep, Pre-O2, Cricoid Pressure, Stylette; Attempts: 1; Laryngoscopy Grade: 2; ETT Placement Verified By: Auscultation, Capnometry, Visual; Secured at Teeth: 21 cm; Inserted by: farhana; Removal Date: 03/05/19; Removal Time: 17503/05/19 075 by Ish Shaikh MD 03/05/19 175 by Marika Kruger, RT (RETIRED) Percutaneous Central Line - Single Lumen 03/05/19; 0805; internal jugular vein, right; Ultrasound Guidance; Yes; 9 Fr; farhana; Tubing Manometry; CVC Protocol Performed; 03/06/19; 1430 03/05/19 0805 by Ish Shaikh MD 03/06/19 1430 by Rg Gordillo, GIANNI (RETIRED) Pulmonary Artery Catheter - Triple Lumen 03/05/19; 0810; jugular vein, right internal; VIP; 8 Fr; CVC Protocol Performed; farhana; 03/05/19; 22303/05/19 08 by Ish Shaikh MD 03/05/19 2230 by Patricio Barrios RN Incision 03/05/19; 0828; ches t; vertical, midline; 02/26/22 (LDA cleanup utility RA#[id number]); 1715 (LDA cleanup utility RA#[id number]) 03/05/19 0828 by Yara Hernandez RN 02/26/22 1715 by Sonja De Incision 03/05/19; 0828; leg; laparoscopic puncture; 02/26/22 (LDA cleanup utility RA#[id number]); 1715 (LDA cleanup utility RA#[id number]) 03/05/19 0828 by Yara Hernandez RN 02/26/22 1715 by Sonja De Chest Tube 03/05/19; 1043; Left ; mediastinum; 28FR angled; 03/06/19; 1005 03/05/19 1043 by Yara Hernandez RN 03/06/19 1005 by Rg Gordillo, GIANNI documented in this encounter Social History Tobacco [...] OR Notes * Anesthesia Postprocedure Evaluation - Ish Shaikh MD - 03/05/2019 12:20 PM EDT Department of Anesthesiology Post-procedure Note Patient: Abimbola Dumas Procedure Summary Date: 03/05/19 Room / Location: [facility] OR [address] [place] [address] MAIN OR Anesthesia Start: 731 Anesthesia Stop: 1210 Procedures: @CABG, USING ARTERIAL GRAFT;SINGLE ARTERIAL GRAFT (WRVU 33.75) (N/A Chest) @CABG; 3 VENOUS GRAFTS & ARTERIAL GRAFT (WRVU 10.49) (N/A ) ENDOSCOPIC HARVEST VEIN(S) FOR CABG (WRVU 0.31) (N/A Leg) Diagnosis: Coronary artery disease of little traverse heart with stable angina pectoris, unspecified vessel or lesion type (cad) Surgeon: Ryan Lynch MD Responsible Provider: Bob Bolaños MD Anesthesia Type: general ASA Status: 3 All Anesthesia Providers: Anesthesiologist: Bob Bolaños MD Bend Sorter: Ish Shaikh MD Vitals Value Taken Time BP Temp 35.2 ??C (95.4 ??F) 03/05/2019 12:04 PM Pulse 70 03/05/2019 12:24 PM Resp 16 03/05/2019 12:25 PM SpO2 100 % 03/05/2019 12:24 PM Pain Level 0 03/05/2019 12:04 PM Vitals shown include unvalidated device data. Patient Location: [facility] Level of Consciousness: Sedated (Pharmacologic/Intentional) Pain Management: PONV: Cardiovascular Status: Hypotension (received treatment) Respiratory Status: Intubated/Ventilated Postoperative Fluid Status: Possible Anesthetic Complications: NONE apparent at time of evaluation Final Primary Anesthesia Type: General (The anesthetic type performed was the same as planned.) Comments: Patient transported to [facility] without incident. * Anesthesia Preprocedure Evaluation - Ish Shaikh MD - 03/04/2019 8:30 PM EDT Pre-Anesthesia Evaluation for: Abimbola Dumas a 73 y.o. female. Procedure(s): @CABG, USING ARTERIAL GRAFT;SINGLE ARTERIAL GRAFT (WRVU 33.75) @CABG; 3 VENOUS GRAFTS & ARTERIAL GRAFT (WRVU 10.49) ENDOSCOPIC HARVEST VEIN(S) FOR CABG (WRVU 0.31) Patient Active Problem List Diagnosis ??? CAD (coronary artery disease) ??? Malignant neoplasm of upper-inner quadrant of left breast in female, estrogen receptor positive Ms. Dumas presented on screening mammography November [...] She started tamoxifen on September 16, 2017. Past Medical History: Diagnosis Date ??? Antiplatelet [...] 8.78) performed by Ashley Farooq MD at [facility] MAIN OR ??? PRO BX/REMV, LYMPH NODE, DEEP AXILL Left 07/04/2017 BIOPSY OR EXCISION OF LYMPH NODE(S), OPEN, DEEP AXILLARY NODE(S) (WRVU 6.43) performed by Ashley Farooq MD at [facility] MAIN OR ??? PRO INTRAOP SENTINEL LYMPH ID W/DYE INJECTION Left 07/04/2017 INTRAOPERATIVE ID (MAPPING) SENTINEL LYMPH NODE,INCLUDES INJECTION (WRVU 2.5) performed by Ashley Farooq MD at [facility] MAIN OR ??? PRO MASTECTOMY, PARTIAL Left 07/04/2017 MASTECTOMY PARTIAL (WRVU 10.13) performed by Ashley Farooq MD at [facility] MAIN OR Social History Tobacco Use ??? Smoking status: Never Smoker ??? Smokeless tobacco: Never Used Substance Use Topics ??? Alcohol use: Never Comment: very occasional Social History Substance and Sexual Activity Drug Use No Allergies Allergen Reactions ??? Penicillins Medications: MAR and/or home medications have been reviewed. Physical Exam: There were no vitals filed for this visit. There is no height or weight on file to calculate BMI. Airway Assessment: Mallampati: III TM distance: <3 FB Neck ROM: full Cardiovascular Assessment: Rhythm: regular Rate: normal Pulmonary Assessment: breath sounds clear to auscultation Dental Assessment: - normal exam Misc Assessment: Anesthesia Plan: ASA 3 general, with a(n) intravenous induction 73 y.o. female with CAD presenting for CABG. PMH significant for breast cancer (tamoxifen), HTN, AYLA on CPAP, GERD, ?stroke. Anesthetic hx: No reported prior complications with anesthesia Airway hx: mask with adjunct, grade 2 view with Mac 3. EKG: sinus Cath: EF of 60% Total occlusion of RCA, LCX 70%, LAD 60%. Lab Results Component Value Date HGB 13.1 02/24/2019 PLATELET 277 02/24/2019 INR 1.0 09/10/2017 NA 141 02/24/2019 K 3.6 02/24/2019 CREATININE 0.53 (L) 02/24/2019 02/24/19 1552 ABORH O Neg Allergies: -- Penicillins NPO Status: Appropriate Anesthetic Plan: GETA, CVC, arterial line, PAC, JONATHAN. Region - Intrathoracic Cardiac Informed Consent: Anesthetic plan and risks discussed with patient. Use of blood products discussed with patient who consented to blood products. PAT Clinic Note documented in this encounter Plan of Treatment Not on file documented as of this encounter Visit Diagnoses Not on filedocumented in this encounter Administered Medications Inactive Administered Medications - up to 3 most recent administrations Medication Order MAR Action Action Date Dose Rate Site cefTRIAXone (ROCEPHIN) injection PRN, Starting on Lawanda 03/05/19 at 0815, Until Lawanda 03/05/19 at 1225, Anesthesia Intra-op, Routine Given 03/05/2019 8:15 AM EDT 2 g EPINEPHrine 2 mg in dextrose 5% 250 mL infusion CONTINUOUS PRN, Starting on Lawanda 03/05/19 at 1050, Until Lawanda 03/05/19 at 1225, Anesthesia Intra-op Rate/Dose Change 03/05/2019 11:37 AM EDT 3 mcg/min 22.5 mL/hr Rate/Dose Change 03/05/2019 11:20 AM EDT 4 mcg/min 30 mL/ hr Rate/Dose Change 03/05/2019 11:05 AM EDT 2 mcg/min 15 mL/ hr fentaNYL 50 mcg/mL multi-dose injection PRN, Starting on Lawanda 03/05/19 at 0747, Until Lawanda 03/05/19 at 1225, Anesthesia Intra-op, Routine Given 03/05/2019 8:25 AM EDT 250 mcg Given 03/05/2019 8:10 AM EDT 250 mcg Given 03/05/2019 8:00 AM EDT 250 mcg heparin (porcine) injection PRN, Starting on Lawanda 03/05/19 at 0848, Until Lawanda 03/05/19 at 1225, Anesthesia Intra-op, Routine Given 03/05/2019 8:48 AM EDT 26,000 Units insulin regular human (HumuLIN;NovoLIN) 1unit/mL in sodium chloride 0.9% infusion CONTINUOUS PRN, Starting on Lawanda 03/05/19 at 0941, Until Lawanda 03/05/19 at 1225, Anesthesia Intra-op, Routine Rate/Dose Change 03/05/2019 10:02 AM EDT 5 Units/hr 5 mL/hr New Bag 03/05/2019 9:41 AM EDT 3 Units/hr 3 mL/hr insulin regular human VIAL injection PRN, Starting on Lawanda 03/05/19 at 1035, Until Lawanda 03/05/19 at 1225, Anesthesia Intra-op, Routine Given 03/05/2019 10:35 AM EDT 3 Units midazolam (PF) (VERSED) multi-dose injection PRN, Starting on Lawanda 03/05/19 at 0733, Until Lawanda 03/05/19 at 1225, Anesthesia Intra-op, Routine Given 03/05/2019 9:05 AM EDT 1 mg Given 03/05/2019 7:40 AM EDT 3 mg Given 03/05/2019 7:33 AM EDT 1 mg nitroGLYcerin 50 mg in dextrose 5% 250 mL infusion CONTINUOUS PRN, Starting on Lawanda 03/05/19 at 1045, Until Lawanda 03/05/19 at 1225, Anesthesia Intra-op, Routine New Bag 03/05/2019 10:45 AM EDT 30 mcg/min 9 mL/hr NORepinephrine 16 mcg/mL (standard ADULT and Pedi greater than 20 kg) infusion CONTINUOUS PRN, Starting on Lawanda 03/05/19 at 1050, Until Lawanda 03/05/19 at 1225, Anesthesia Intra-op, Routine Rate/Dose Change 03/05/2019 11:27 AM EDT 1 mcg/min 3.8 mL/hr Rate/Dose Change 03/05/2019 11:20 AM EDT 2 mcg/min 7.5 mL /hr Restarted 03/05/2019 11:16 AM EDT 3 mcg/min 11.3 mL/hr PHENYLephrine in NS (PF) (FRANCINE-SYNEPHRINE) 0.8 mg/10 mL (80 mcg/mL) multi-dose injection Syrg PRN, Starting on Lawanda 03/05/19 at 0749, Until Lawanda 03/05/19 at 1225, Anesthesia Intra-op, Routine Given 03/05/2019 9:06 AM EDT 80 mcg Given 03/05/2019 7:55 AM EDT 160 mcg Given 03/05/2019 7:49 AM EDT 160 mcg propofol (DIPRIVAN) 10 mg/mL bolus injection (Anesthesia) PRN, Starting on Lawanda 03/05/19 at 0747, Until Lawanda 03/05/19 at 1225, Anesthesia Intra-op Given 03/05/2019 8:20 AM EDT 50 mg Given 03/05/2019 7:47 AM EDT 150 mg propofol (DIPRIVAN) infusion CONTINUOUS PRN, Starting on Lawanda 03/05/19 at 1102, Until Lawanda 03/05/19 at 1225, Anesthesia Intra-op, Routine Rate/Dose Change 03/05/2019 11:20 AM EDT 30 mcg/kg/min 17.3 mL/hr New Bag 03/05/2019 11:02 AM EDT 50 mcg/kg/min 28.8 mL/h r New Bag 03/05/2019 10:53 AM EDT 30 mcg/kg/min 17.3 mL/h r protamine injection PRN, Starting on Lawanda 03/05/19 at 1100, Until Lawanda 03/05/19 at 1225, Anesthesia Intra-op, Routine Given 03/05/2019 11:00 AM EDT 170 mg tranexamic acid (CYKLOKAPRON) 100 mg/mL bolus injection (Anesthesia) PRN, Starting on Lawanda 03/05/19 at 0810, Until Lawanda 03/05/19 at 1225, Anesthesia Intra-op, Routine Given 03/05/2019 8:10 AM EDT 960 mg tranexamic acid (CYKLOKAPRON) injection CONTINUOUS PRN, Starting on Lawanda 03/05/19 at 0810, Until Lawanda 03/05/19 at 1225, Anesthesia Intra-op, Routine New Bag 03/05/2019 8:10 AM EDT 1 mg/kg/hr 1 mL/hr vecuronium (NORCURON) injection PRN, Starting on Lawanda 03/05/19 at 0748, Until Lawanda 03/05/19 at 1225, Anesthesia Intra-op, Routine Given 03/05/2019 9:05 AM EDT 10 mg Given 03/05/2019 7:48 AM EDT 10 mg documented in this encounter Care Teams Biological Technician Relationship Specialty Start Date End Date Angie Alonzo MD [facility] [address] [place] [address] PCP - General Family Medicine 06/25/17 documented as of this encounter
--- OUTSIDE RECORDS SUMMARY | 2024-03-11 15:16 | XMS_ITS | Encounter Summary ---
Author Organization [facility] Address [facility] [place] [address] Care Team Providers Care Family Medicine Physician Assistant Name Role Phone Angie Alonzo MD Primary Care Provider [phone] Encounter Details Date Type Department Care Team (Late st Contact Info) Description 04/10/2018 Telephone [place] [phone] Nimco Mohan MD [facility] [place] [address] Social History Tobacco Use Types Packs/Day Years Used Date Smoking Tobacco: Never Smokeless Tobacco: Never Sex and Gender Information Value Date Recorded Sex Assigned at Not on file Gender Identity Not on file Sexual Orientation Not on file documented as of this encounter Miscellaneous Notes * Telephone Encounter - Nimco Mohan - 04/10/2018 12:18 PM EDT Endocrinology Telephone Note: Informed Abimbola that her ThyGeNEXT report was very highly likely benign. Will see in clinic in 1 year for f/u. Note sent to secretaries to schedule. Nimco Mohan MD PGY-4 [facility] Endocrinology Fellow Pager #[phone] documented in this encounter Plan of Treatment Not on file documented as of this encounter Visit Diagnoses Not on filedocumented in this encounter Care Teams Family Medicine Physician Assistant Relationship Specialty Start Date End Date Angie Alonzo MD [address] [place] [address] [address] [place] [address] PCP - General Family Medicine 06/25/17 documented as of this encounter
--- OUTSIDE RECORDS SUMMARY | 2024-03-11 15:16 | XMS_ITS | Encounter Summary ---
Author Organization [facility] Address [facility] [place] [address] Care Team Providers Care Outside Plant Field Engineer Name Role Phone Angie Alonzo MD Primary Care Provider [phone] Encounter Details Date Type Department Care Team (Latest Contact Info) Description 07/18/2018 9:01 AM EST - 07/18/2018 11:59 PM EST Hospital Encounter Hematology and Oncology at [facility] [place] [address] Malignant neoplasm of upper-inner quadrant of left [...] mcg (200 unit) Tablet 1 tablet. 09/01/2012 METHYLCELLULOSE (CITRUCEL ORAL) Take by mouth daily as needed. pantoprazole (PROTONIX) 20 mg Tablet, Delayed Release (E.C.) Take 20 mg by mouth daily. atorvastatin (LIPITOR) 40 mg Tablet Take 40 mg by mouth daily. blood-glucose meter (FREESTYLE) Kit 1 [facility]Non-Drug; Combo Route) route as needed for Other. aspirin 81 mg Tablet, Chewable Take 81 mg by mouth daily. amLODIPine (NORVASC) 5 mg Tablet Take 5 mg by mouth daily. 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 400 g 09/02/2017 02/22/2019 tamoxifen (NOLVADEX) 20 mg TabletIndications:Kristy sterling neoplasm of upper-inner quadrant of left breast in female, estrogen receptor positive Take 1 tablet by mouth daily. Start on September 16, 2017. 90 tablet 3 09/16/2017 09/16/2018 EMOLLIENT BASE (CREAM BASE TOP) Apply topically. Jeans Cream. Apply to area of radiation twice a day but no less than 2 hours before a treatment. 02/22/2019 potassium chloride (KLOR-CON) 20 mEq Packet Take 20 mEq by mouth daily. 03/09/2019 lisinopril (PRINIVIL;ZESTRIL) 40 mg Tablet Take 40 mg by mouth daily. 03/09/2019 chlorthalidone (HYGROTEN) 25 mg Tablet Take 25 mg by mouth daily. 03/09/2019 meTOPROLOL succinate (TOPROL-XL) 50 mg Tablet Sustained Release 24 hr Take 50 mg by mouth daily. 03/09/2019 multivitamin Capsule Take 1 capsule by mouth daily. 03/09/2019 CALCIUM CARB, CITRATE/VIT D3 (CALCIUM CARB AND CITRATE-VITD3 ORAL) Take by mouth 2 times daily. 06/18/2023 documented as of this encounter Plan of Treatment Not on file documented as of this encounter Procedures Procedure Name Priority Date/Time Associated Diagnosis Comments HEPATIC FUNCTION PANEL STAT 07/18/2018 9:10 AM EST Malignant neoplasm of upper-inner quadrant of left breast in female, estrogen receptor positive documented in this encounter Results * Hepatic Function Panel (07/18/2018 9:10 AM EST) Protein, Total 6.4 6.1 - 8.0 gm/dL [facility] Albumin 3.9 3.2 - 5.2 gm/dL [facility] Aspartate Aminotransferase 19 0 - 30 unit/L [facility] Alanine Aminotransferase 17 0 - 30 unit/L [facility] Alkaline Phosphatase 60 40 - 104 unit/L [facility] Bilirubin, Total 0.3 0.2 - 1.3 mg/dL [facility] Bilirubin, Direct 0.1 0.0 - 0.3 mg/dL [facility] Blood specimen (specimen) 07/18/2018 9:10 AM EST 07/18/2018 9:25 AM EST Narrative Resulting Agency Comment Spec In Lab Kalyan Damico MD CHEMISTRY ORDERABLES Performing Organization Address City/State/[facility] Co de Phone Number [facility] [place] [address] documented in this encounter Visit Diagnoses Diagnosis Malignant neoplasm of upper-inner quadrant of left breast in female, estrogen receptor positive documented in this encounter Care Teams Outside Plant Field Engineer Relationship Specialty Start Date End Date Angie Alonzo MD [address] [place] [address] PCP - General Family Medicine 06/25/17 documented as of this encounter
--- OUTSIDE RECORDS SUMMARY | 2024-03-11 15:16 | XMS_ITS | Encounter Summary ---
Author Organization [facility] Address [facility] [place] [address] Care Team Providers Care Theatrical Performer Name Role Phone Angie Alonzo MD Primary Care Provider [phone] Encounter Details Date Type Department Care Team (Late st Contact Info) Description 02/28/2018 1:00 PM EDT Office Visit [place] [address] Hira Jeff DO [facility] [place] [address] Nimco Mohan MD [facility] [place] [address] Solitary nodule of right lobe of thyroid (Primary Dx); Malignant neoplasm of upper-inner quadrant of left [...] Sign Reading Time Taken Comments Blood Pressure 157/73 02/28/2018 12:53 PM EDT Pulse 83 02/28/2018 12:53 PM EDT Temperature - - Respiratory Rate - - Oxygen Saturation - - Inhaled Oxygen Concentration - - Weight 95.8 kg (211 lb 4.8 oz) 02/28/2018 12:53 PM EDT Height 167.6 cm (5' 6) 02/28/2018 12:53 PM EDT Body Mass Index 34.1 02/28/2018 12:53 PM EDT documented in this encounter Progress Notes * Nimco Mohan CW - 02/28/2018 1:00 PM EDT Subjective: Patient ID: Abimbola Dumas is a 72 y.o. female. HPI Ms. 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 The nodule was first noted on a CT in July 2017. Abimbola denies any sensation of pressure in the neck, no frequent cough or feeling she has to clear her throat. Overall Abimbola is doing well at this time, she does not have any complaints. Social Hx: From [facility] Family Hx: Sister lung ca Great niece cancer of the lung No thyroid disease Mother and father with ascvd Meds: Current Outpatient Prescriptions: ??? amLODIPine (NORVASC) 5 mg Tablet, Take 5 mg by mouth daily., Disp: , Rfl: ??? silver sulfADIAZINE (SILVADENE) 1 % Cream, Apply topically daily., Disp: 400 g, Rfl: 0 ??? tamoxifen (NOLVADEX) 20 mg Tablet, Take 1 tablet by mouth daily. Start on September 16, 2017., Disp: 90 tablet, Rfl: 3 ??? EMOLLIENT BASE (CREAM BASE TOP), Apply topically. Jeans Cream. Apply to area of radiation twicea day but no less than 2 hours before a treatment., Disp: , Rfl: ??? METHYLCELLULOSE (CITRUCEL ORAL), Take by mouth daily as needed., Disp: , Rfl: ??? pantoprazole (PROTONIX) 20 mg Tablet, Delayed Release (E.C.), Take 20 mg by mouth daily., Disp:, Rfl: ??? potassium chloride (KLOR-CON) 20 mEq Packet, Take 20 mEq by mouth daily., Disp: , Rfl: ??? lisinopril (PRINIVIL;ZESTRIL) 40 mg Tablet, Take 40 mg by mouth daily., Disp: , Rfl: ??? DILTiazem (CARDIZEM CD) 240 mg Capsule, Sust. Release 24 hr, Take 240 mg by mouth daily., Disp:, Rfl: ??? chlorthalidone (HYGROTEN) 25 mg Tablet, Take 25 mg by mouth daily., Disp: , Rfl: ??? atorvastatin (LIPITOR) 40 mg Tablet, Take 40 mg by mouth daily., Disp: , Rfl: ??? meTOPROLOL succinate (TOPROL-XL) 50 mg Tablet Sustained Release 24 hr, Take 50 mg by mouth daily., Disp: , Rfl: ??? blood-glucose meter (FREESTYLE) Kit, 1 each by [facility].(Non-Drug; Combo Route) route as needed forOther., Disp: , Rfl: ??? aspirin 81 mg Tablet, Chewable, Take 81 mg by mouth daily., Disp: , Rfl: ??? multivitamin Capsule, Take 1 capsule by mouth daily., Disp: , Rfl: ??? CALCIUM CARB, CITRATE/VIT D3 (CALCIUM CARB AND CITRATE-VITD3 ORAL), Take by mouth., Disp: , Rfl: Review of Systems HENT: Negative for trouble swallowing and voice change. Objective:BP 157/73 Pulse 83 Ht 167.6 cm (5' 6) Wt 95.8 kg (211 lb 4.8 oz) BMI 34.1 kg/m2 Physical Exam HENT: No exopthalmos lid lag or stare Neck: Palpable thyroid nodule RLL Lymphadenopathy: She has no cervical adenopathy. Skin: Skin is warm and dry. Pathology Report 11/21/2017: DISCUSSION Thyroid, right (US-guided FNA): Atypia of Undetermined Significance (see note). Low cellularity aspirate ?? composed predominantly of microfollicles ??. Some of the ??follicular epithelial cell groups are embedded in blood, hindering evaluation of ??them. ??Small amount of colloid is seen. Pathology Report 09/10/2017: DISCUSSION Thyroid: right (US-guided FNA) - Atypia of Undetermined Significance (see note). Low cellularity aspirate in which there appears to be a predominance of ??microfollicles/three dimensional cell clusters over macrofollicles. Colloid is not ??conspicuous. 09/10/2017 Thyroid Ultrasound: Findings: 1) 1.7 cm well-circumscribed, solid isoechoic right thyroid nodule with peripheral vascularity 2) US-guided FNA of right thyroid nodule 3) No hematoma seen on immediate post-procedure US scan. ThyGenx 12/17/2017: Insufficient for molecular analysis Assessment and Plan: Abimbola is presenting in follow up from her last FNA on 10/2017. 2 FNA specimen have resulted in atypiaof undetermined significance. The ThyGenX molecular marker obtained at her last visit returned as insufficient. Today, we repeated ThyGenX testing with 4 passes total. It is necessary to stratify with thygenx given the size of the lesion (1.7 x 1.42 x 1.84 cm) and potential need for thyroidectomy especially given hypOechoic texture which makes this highly suspicious for malignancy according to 2015 [place] [employer] guidelines. At this time, Abimbola is not experiencing compressive symptoms due to the nodule. She is clinically euthyroid. #right lower lobe thyroid nodule -previous cytology AUS x2 -ThyGenX completed for second time today to further risk stratify nodule -will determine subsequent steps based upon ThyGenX results. Case discussed and seen with staff Shed Hand Logan Jeff DO. Nimco Mohan MD PGY-4 [facility] Endocrinology Fellow Pager #[phone] * Nimco Mohan - 02/28/2018 1:00 PM EDT THYROID ULTRASOUND GUIDED BIOPSY PROCEDURE NOTE All measurements are given as Longitudinal/Sagittal x AP x Transverse. R lower lobe nodule: 1.7 x 1.42 x 1.84 cm Indication: thyroid nodule Date: 02/28/2018 Informed consent was obtained after a discussion of the nature of the procedure, its risks, benefits and possible alternatives. Immediately prior to the start of the procedure a time out was taken: - The patient's identity was confirmed using two identifiers - The intended procedure, patient positioning and availability of all required equipment was also confirmed. - The proper site(s)/side(s) of the nodule(s) was/were confirmed by visualization with ultrasound. The biopsy site(s) on the patient's neck was/were prepared using isopropyl alchohol. 4 passes of a 25g needle were performed at the site. The needle placement was ultrasound guided. The needle was visualized in the nodule(s) in each pass. -Biopsy was performed of: -Right lower lobe thyroid nodule for thygenx molecular analysis The procedure was well tolerated by the patient without any complications. The patient was given a thyroid FNA post-procedure handout upon completion Representatives from pathology were not present during the procedure. Nimco Mohan MD Endocrinology Fellow * Hira Jeff DO - 02/28/2018 1:00 PM EDT I have seen the patient and reviewed Dr Mohan's history and I agree with the details as written. Theassessment and plan were formulated in discussion with me and I agree with them as documented. I assisted Dr. Mohan in the fine-needle aspiration. The procedure was well- tolerated by the patient and there were no immediate complications. Hira Jeff DO, MS Orchestra Leaderresearch consultant Section of Endocrinology [facility] documented in this encounter Plan of Treatment Not on file documented as of this encounter Visit Diagnoses Diagnosis Solitary nodule of right lobe of thyroid- Primary Nontoxic uninodular goiter Malignant neoplasm of upper-inner quadrant of left breast in female, estrogen receptor positive documented in this encounter Care Teams Theatrical Performer Relationship Specialty Start Date End Date Angie Alonzo MD [address] [place] [address] PCP - General Family Medicine 06/25/17 documented as of this encounter
--- OUTSIDE RECORDS SUMMARY | 2024-03-11 15:16 | XMS_ITS | Encounter Summary ---
Author Organization [facility] Address [facility] [place] [address] Care Team Providers Care Ironworker Helper Shop Name Role Phone Angie Alonzo MD Primary Care Provider [phone] Encounter Details Date Type Department Care Team (Late st Contact Info) Description 02/24/2019 11:00 AM EDT - 02/24/2019 12:00 PM EDT Surgery Equipment [place] [id number] Sam Bey MD [facility] [address] [place] [id number] CARDIAC CATHETERIZATION Social History Tobacco Use Types Packs/Day Years [...] Sign Reading Time Taken Comments Blood Pressure 132/57 02/24/2019 12:00 PM EDT Pulse 60 02/24/2019 12:00 PM EDT Temperature 36.6 ??C (97.9 ??F) 02/24/2019 9:43 AM ED T Respiratory Rate 19 02/24/2019 12:00 PM EDT Oxygen Saturation 91% 02/24/2019 12:00 PM EDT Inhaled Oxygen Concentration - - Weight - - Height 167.6 cm (5' 6) 02/24/2019 9:43 AM EDT Body Mass Index - - documented in this encounter Discharge Instructions * Discharge Instructions* Scarlet Calvert RN - 02/24/2019 2:30 PM EDT Radial Access for Heart Cath Activity If you are discharged the same day as your procedure, do not drive yourself home. Arrange to have another person drive. You may walk around when you get home, but keep your activity at a minimum until the morning. Try to avoid bending your wrist for the first 12-24 hours after the procedure to allow the artery to fully heal. Do not participate in active sports for 48 hours. Do not lift anything greater than 5 lbs. You may engage in sexual activity after 48 hours. Catheter Insertion Area Care Take the dressing off of the catheter insertion site the morning following the procedure. Leave thesite open to air. If the site is oozing you may cover it with a band aid. You may take a shower if you wish. Look for signs of infection over the next several days. It is uncommon to have any visible blood at the site, any obvious bleeding is abnormal. A bruise around the wrist or small lump under the skin is normal: they generally disappear in 3-5 days. Expect some mild tenderness over the area where the catheter was inserted. You will notice this after the local anesthetic (numbing medicine) wears off. This should improve during the 24-48 hours after the procedure. You may use acetaminophen (tylenol) if needed. Contact your doctor if the discomfort worsens. Problems to Watch for If there is bright red blood flowing from the catheter insertion area: *stop what you are doing *hold pressure steadily on the area for 15 minutes *call for help *if the bleeding does not stop in 15 minutes call 911 for an ambulance. If there is swelling with black and blue color at the catheter insertion site, there may be bleeding inside. Contact the doctor if there is any increase in size. Look at the insertion site for the first few days at home. Signs of infection are: *redness *swelling *yellow, white, green or brown foul smelling drainage. *increased soreness If you think there is an infection, take your temperature. Then call your doctor. The limb on the side where you had your catheterization should look and feel normal in color, sensation, and temperature. If your hand or fingers become cool, pale, blue or change color contact your doctor. If you are having numbness or tingling in your fingers or hand contact your doctor. If you feel faint or dizzy, lie down with your feet elevated. Have someone call the doctor. If you are alert, drink fluids. How to Deal with Chest Pain If you had only the cardiac catheterization, treat any angina or chest discomfort as instructed. Stop what you are doing, and sit or lie down. If prescribed, take nitroglycerin under your tongue. If the angina isn't relieved, take another nitroglycerin in 5 minutes. After another 5 minutes, a third nitroglycerin may be taken. If the angina isn't improved you should call for an ambulance to bring you to the nearest hospital emergency room. If your angina is more frequent or severe than before, contact your doctor. We usually would not expect you to have angina after an angioplasty. If you do get angina, treat itas you did before, but also contact your doctor. Return to Work The doctor will usually have told you when to return to work. If you do not perform heavy physical labor, most people can return to work in a few days. Diet Follow your previous diet unless otherwise instructed. Cardiac Risk Factor If you have coronary artery disease, it is important that you help control it by reducing your cardiac risk factors. If you smoke, we urge you to stop now. If you think this is going to be a problem,let us know so that we may help you. We have dieticians who can help you learn about a low fat, lowcholesterol diet. Cardiac rehabilitation programs can help you set up a regular exercise program. Work with your doctor if you have high blood pressure or sugar diabetes to keep these under control. Medications Take your usual medications medication changes If you are taking medications prescribed by your doctor, do not take any jcyx-qsk-oyvwsfx medicinesor herbal preparations without first discussing this with your doctor or pharmacist. There is the possibility of side effects and interactions when these are combined. Follow Up Care Who to call with questions or problems If there are any questions or problems that you think might be related to your cardiac cath or angioplasty, contact the pipe turner articulation officer by calling [facility] at . documented in this encounter Medications at Time [...] blood-glucose meter (FREESTYLE) Kit 1 each by [facility]Non-Drug; Combo Route) route as needed [...] 2 tablets by mouth daily. 03/09/2019 07/17/2022 chlorhexidine (HIBICLENS) 4 % Liquid Apply topically daily as needed. Shower from head to toe with Chlorhexidine the night before surgery . 120 mL 02/24/2019 03/05/2019 tamoxifen (NOLVADEX) 20 mg TabletIndications:Ma lignant neoplasm of upper-inner quadrant of left breast in female, estrogen receptor positive Take 1 tablet by mouth daily. 90 tablet 3 09/16/2018 09/17/2019 amLODIPine (NORVASC) 5 mg Tablet Take 5 mg by mouth daily. 03/09/2019 potassium chloride (KLOR-CON) 20 mEq Packet Take [...] daily. 06/18/2023 documented as of this encounter H&P Notes * Kaitlyn Fournier PA - 02/24/2019 10:11 AM EDT Pre-Cardiac Catheterization [address] Update Please see Dr. Magallon's note dated 02/17/19 for full details regarding reason for referral for cardiac catheterization. There has been no significant interval change in clinical status since that visit. Briefly: Ms. Abimbola Dumas is in need of a left hip replacement. A mumur was noted and she was sent for pre-op clearance. She had a nuclear stress test showing inferior and anterolateral ischemia. An Echocardiogram showed LVEF 60-65% no WMAs. AIDA 1.6cm2 Concerns about timing of a possible intervention and hip surgery as related to Plaxix/ASA exist. Consent obtained ASA II Mallampati II Labs: Gluc: 153 Creat: 0.63 K: 3.6 H/H: 13. Pltsa: 225 documented in this encounter Miscellaneous Notes * Brief Op Note - Sam Bey MD - 02/24/2019 12:02 PM EDT Preliminary Cardiac Catheterization Procedure Note: Patient Name: Abimbola Dumas : [id number] MR#: [id number] Case Date: 02/24/[address] Judge: Surgeon(s) and Role: * Sam Bey MD - Primary * Dina Huerta MD - Fellow Preoperative diagnosis: Abnormal stress test [R94.39] Postoperative diagnosis: * ASCVD * Procedure(s) performed: lhc and coronary angio Access: Right radial A time-out was conducted prior to the start of the procedure to verify the correct patient and procedure, procedure location, and all relevant critical information. Preliminary findings: Diffuse three vessel CAD. Occluded RCA with collateral flow. High grade OM lesion and high grade mid LAD. Dicussed with Dr Magallon on the telephone. Will refer to Dr Montalvo for CABG The patient tolerated the procedures smoothly and was transferred from the cardiac catheterization lab to the next level of care in stable condition. No evident early complications. Full report to follow. Sam Bey MD documented in this encounter Plan of Treatment Not on file documented as of this encounter Procedures Procedure Name Priority Date/Time Associated Diagnosis Comments EKG 12-LEAD Routine 02/24/2019 9:58 AM EDT Abnormal stress test POCT GLUCOSE Routine 02/24/2019 9:45 AM EDT documented in this encounter Results * EKG 12 Lead (02/24/2019 9:58 AM EDT) Pathologist [facility] Ventricular rate 64 BPM MUSE SYSTEM Atrial Rate 64 BPM MUSE SYSTEM P-R Interval 174 ms MUSE SYSTEM QRS Duration 94 ms MUSE SYSTEM Q-T Interval 418 ms MUSE SYSTEM QTC Calculated (Bezet) 431 ms MUSE SYSTEM Calculated P [place] 3 degrees MUSE SYSTEM Calculated R [place] -17 degrees MUSE SYSTEM Calculated T [place] -4 degrees MUSE SYSTEM INTERPRETATION Normal sinus rhythm Normal ECG No previous ECGs available Confirmed by MD Su, Vikram ([id number]) on 02/24/2019 11:19:55 AM MUSE SYSTEM 02/24/2019 9:58 AM EDT 02/24/2019 11:19 AM EDT Sam Bey MD ECG ORDERABLES MUSE SYSTEM * POCT Glucose (02/24/2019 9:45 AM EDT) Glucose, POC 121 65 - 199 mg/dL [facility] Comment: Supplemental ranges: <140 mg/dL before meals <180 mg/dL all other times of the day Blood specimen (specimen) 02/24/2019 9:45 AM EDT 02/24/2019 9:45 AM EDT Sam Bey MD POINT OF CARE TEST [place] [address] documented in this encounter Visit Diagnoses Diagnosis Abnormal stress test Other nonspecific abnormal cardiovascular system function study Abnormal stress test Other nonspecific abnormal cardiovascular system function study documented in this encounter Administered Medications Inactive Administered Medications - up to 3 most recent administrations Medication Order MAR Action Action Date Dose Rate Site fentaNYL 50 mcg/mL multi-dose injection ONCE PRN, Starting on Sat02/24/19 at 1102, Until Sat02/24/19 at 1451, Intra-Operative (Intra-Procedure), Routine Given 02/24/2019 11:02 AM EDT 25 mcg heparin (porcine) injection ONCE PRN, Starting on Sat02/24/19 at 1100, Until Sat02/24/19 at 1451, Cath (Intra-Procedure), Routine Given 02/24/2019 11:00 AM EDT 6,000 Units iohexol (OMNIPAQUE) 350 mg/mL solution ONCE PRN, Starting on Sat02/24/19 at 1114, Until Sat02/24/19 at 1451, Cath (Intra-Procedure), Routine Given 02/24/2019 11:14 AM EDT 60 mLs midazolam (PF) (VERSED) multi-dose injection ONCE PRN, Starting on Sat02/24/19 at 1102, Until Sat02/24/19 at 1451, Cath (Intra-Procedure), Routine Given 02/24/2019 11:02 AM EDT 1 mg nitroGLYcerin 100 mcg/mL intracoronary dilution ONCE PRN, Starting on Sat02/24/19 at 1058, Until Sat02/24/19 at 1451, Cath (Intra-Procedure), Routine Given 02/24/2019 10:58 AM EDT 150 mcg sodium chloride 0.9% infusion 50 mL/hr, Intravenous, CONTINUOUS, Starting on Sat02/24/19 at 1000, Until Sat02/24/19 at 1159, Cath (Day of Procedure) New Bag 02/24/2019 10:39 AM EDT 50 mL/hr 50 mL/hr documented in this encounter Active and Recently Administered Medications Times are shown in EDT. Continuous Medication Order 02/22/2019 02/23/2019 02/24/2019 sodium chloride 0.9% infusion 50 mL/hr, Intravenous, CONTINUOUS, Starting on Sat02/24/19 at 1000, Until Sat02/24/19 at 1159, Cath (Day of Procedure) 1039 (New Bag - Prov ider: Nellie Mohan RN) sodium chloride 0.9% infusion 1 mL/hr, Intravenous, CONTINUOUS, Starting on Sat02/24/19 at 1145, Until Sat02/24/19 at 1244, Recovery (Recovery-Hospital Unit) 1145 (Canceled Entry - Provider: Brennon Herring RN - Reason: See comment - Comment: canceled due to Pt condition) PRN Medication Order 02/22/2019 02/23/2019 02/24/2019 fentaNYL 50 mcg/mL multi-dose injection (CANCELED) ONCE PRN, Starting on Sat02/24/19 at 1102, Until Sat02/24/19 at 1451, Intra-Operative (Intra-Procedure), Routine 1102 (Given - Provid er: Noemi Osuna RN) heparin (porcine) injection (CANCELED) ONCE PRN, Starting on Sat02/24/19 at 1100, Until Sat02/24/19 at 1451, Cath (Intra-Procedure), Routine 1100 (Given - Provid er: Sam Bey MD) iohexol (OMNIPAQUE) 350 mg/mL solution (CANCELED) ONCE PRN, Starting on Sat02/24/19 at 1114, Until Sat02/24/19 at 1451, Cath (Intra-Procedure), Routine 1114 (Given - Provid er: Dina Huerta) midazolam (PF) (VERSED) multi-dose injection (CANCELED) ONCE PRN, Starting on Sat02/24/19 at 1102, Until Sat02/24/19 at 1451, Cath (Intra-Procedure), Routine 1102 (Given - Provid er: Noemi Osuna RN) nitroGLYcerin 100 mcg/mL intracoronary dilution (CANCELED) ONCE PRN, Starting on 8/27/19 at 1058, Until Sat02/24/19 at 1451, Cath (Intra-Procedure), Routine 1058 (Given - Provid er: Sam Bey MD) documented in this encounter Care Teams Ironworker Helper Shop Relationship Specialty Start Date End Date Angie Alonzo MD [facility] [address] [place] [address] PCP - General Family Medicine 06/25/17 documented as of this encounter
--- OUTSIDE RECORDS SUMMARY | 2024-03-11 15:16 | XMS_ITS | Encounter Summary ---
Author Organization [facility] Address [facility] [place] [address] Care Team Providers Care Mining Speculator Name Role Phone Angie Alonzo MD Primary Care Provider [phone] Encounter Details Date Type Department Care Team (Late st Contact Info) Description 01/14/2018 11:00 AM EDT Office Visit H[place]ology [place] [address] Kalyan Damico MD [facility] HEMATOLOGY/[place] [address] Malignant neoplasm of upper-inner quadrant of left [...] Sign Reading Time Taken Comments Blood Pressure 144/57 01/14/2018 10:53 AM EDT Pulse 72 01/14/2018 10:53 AM EDT Temperature 36.9 ??C (98.4 ??F) 01/14/2018 10:53 AM E DT Respiratory Rate 18 01/14/2018 10:53 AM EDT Oxygen Saturation 98% 01/14/2018 10:53 AM EDT Inhaled Oxygen Concentration - - Weight 95.9 kg (211 lb 6.4 oz) 01/14/2018 10:53 AM EDT Height 167.9 cm (5' 6.1) 01/14/2018 10:53 AM ED T Body Mass Index 34.02 01/14/2018 10:53 AM EDT documented in this encounter Patient Instructions * Patient Instructions* Kalyan Damico MD - 01/14/2018 11:00 AM EDT Please stop tamoxifen two weeks before and two weeks after any joint replacement surgery. Your exam and mammograms are good today, and we don;t see any evidence of breast cancer recurrence. I will bring you back in six months with a lab draw that day. documented in this encounter Progress Notes * Kalyan Damico MD - 01/14/2018 11:00 AM EDT Subjective: Patient ID: Abimbola Dumas is a 72 y.o. female with Stage I breast cancer, seen for six month followup. HPI Ms. Dumas presented on screening mammography November 06, 2016 with an area of increased density with surrounding architectural distortion in the medial, subareolar left breast. Diagnostic imaging on November 09 showed a 9 mm spiculated mass in the upper inner quadrant of the left breast at 9:00, 3 cm fromthe nipple. An ultrasound showed a subtle 6 [...] cm from the nipple. An ultrasound-guided biopsy thesame day showed a low grade invasive ductal [...] The tamoxifen has gone well so far. She has not noted any worsening in her chronic musculoskeletal pain in her knees, left hip, shoulders, and the basilar joints of the thumbs. She has night time legcramping which she treats with a bar of soap in the bed and a night time dose of apple cider vinegar. She feels warm all the time, particularly in warm weather. She has no vaginal bleeding or spotting, and she has had a hysterectomy. She is thinking about having her left hip replaced in the future when it gets to hard to walk on it. Review of Systems She denies breast pain, a cough, shortness of breath, chest pain, nausea, vomiting, diarrhea, constipation, headaches, double vision, skin rashes, pain, redness, or swelling in her lower extremities, or any other sites of joint or skeletal pain. The remainder of her review of systems is negative. Objective: Physical Exam Constitutional: Her weight is up 2.5 kg over the past six months, and her BP is 144/57. HENT: Mouth/Throat: Oropharynx is clear and moist. No oropharyngeal exudate. Neck: She has no supraclavicular adenopathy. Cardiovascular: Normal rate, regular rhythm and normal heart sounds. No murmur heard. Pulmonary/Chest: Breath sounds normal. She has no wheezes. She has no rales. There is a 4 cm scar in the upper inner quadrant of the left breast as well as a 4 cm left axillaryscar. The skin of the left breast is edematous and brawny. There are no masses within either the left or the right breast, and there is no axillary adenopathy on either side. Abdominal: Soft. She exhibits no distension and no mass. There is no tenderness. There is no guarding. Musculoskeletal: She exhibits no edema. She has no pain on percussion over the spine, sternum, ribs, or hips. Lymphadenopathy: She has no cervical adenopathy. Skin: Skin is warm and dry. No erythema. Vitals reviewed. Labs from June 19, 2017 showed a WBC count of 8.1, Hgb 14.6, Hct 43.0, platelets 304, ANC 5770,Na 144, K 3.7, Cl 102, bicarb 27, BUN 24, creatinine 0.69, Ca 9.7, albumin 4.2, bili 0.4,??alk phos63, AST 17, and ALT 16. Assessment and Plan: Ms. 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 She has been taking tamoxifen for fourmonths, and she is tolerating it very well, without an increase in her leg cramping or in her generalized musculoskeletal pain. I asked her to stop the tamoxifen temporarily for a month, from two weeks before surgery until two weeks after surgery, if she goes ahead with a right hip replacement. I reviewed the signs and symptoms of a blood clot in the legs with her. I will ask her to take a total of five years of tamoxifen through August of 2022. I will see her next in followup in six months, Deejay will check an HFP at that time. She knows to contact me in the interim if she has any concerns over her breast exam or over the tamoxifen. Kalyan Damico MD ballaster in Hematology-Oncology documented in this encounter Plan of Treatment Not on file documented as of this encounter Results * Hepatic Function Panel (07/18/2018 9:10 AM EST) Protein, Total 6.4 6.1 - 8.0 gm/dL [facility] Albumin 3.9 3.2 - 5.2 gm/dL [facility] Aspartate Aminotransferase 19 0 - 30 unit/L [facility] Alanine Aminotransferase 17 0 - 30 unit/L [facility] Alkaline Phosphatase 60 40 - 104 unit/L [facility] Bilirubin, Total 0.3 0.2 - 1.3 mg/dL [facility] Bilirubin, Direct 0.1 0.0 - 0.3 mg/dL [facility] Blood specimen (specimen) 07/18/2018 9:10 AM EST 07/18/2018 9:25 AM EST Narrative Resulting Agency Comment Spec In Lab Kalyan Damico MD [place] [address] documented in this encounter Visit Diagnoses Diagnosis Malignant neoplasm of upper-inner quadrant of left breast in female, estrogen receptor positive documented in this encounter Care Teams Mining Speculator Relationship Specialty Start Date End Date Angie Alonzo MD [address] [facility] [address] [place] [address] PCP - General Family Medicine 06/25/17 documented as of this encounter
--- OUTSIDE RECORDS SUMMARY | 2024-03-11 15:16 | XMS_ITS | Encounter Summary ---
Author Organization [facility] Address [facility] [place] [address] Care Team Providers Care Speech Teacher Name Role Phone Angie Alonzo MD Primary Care Provider [phone] Reason for Visit * Reason Onset Date Comments Other 02/25/[address] let ter Encounter Details Date Type Department Care Team (Late st Contact Info) Description 02/25/2019 Telephone Cardiology at [place] [phone] Aileen Owens MD [facility] [place] [address] Other (copy of cath letter) Social History Tobacco Use Types Packs/Day Years [...] encounter Miscellaneous Notes * Telephone Encounter - LizethreginaMeg corcoran - 02/25/2019 10:48 AM EDT Images from the original note were not included. [facility] Cardiovascular Medicine [address] [place] [id number] AILEEN OWENS M.D. February 25, 2019 Will Magallon M.D. [address] [place] [address] Angie Alonzo M.D. [facility] Morales Reynolds, [address] [address] Re: Abimbola Dumas : 1945 Dear Porter, As you know, I saw your patient, Abimbola Dumas, in the Sports [facility]istic[facility] today for diagnostic catheterization. She is a woman who you recently met for preoperative risk assessment and had a positive stress test showing anterolateral and inferior ischemia. This was done prior to a planned total hip replacement. As you recall, she has a very strong family history of coronary disease as well as multiple risk factors herself. In light of this, coronary angiography was recommended and performed today. Coronary angiography demonstrated multivessel disease with high-grade stenosis in the circumflex, LAD, and a total occlusion of the right coronary artery. Enclosed, please find a copy of the full cath report for your records. In light of this, as we discussed on the phone, I have asked Dr. Lynch to schedule her for surgical evaluation and plan for coronary artery bypass grafting in the coming weeks. In the interim, sheappears to be on good medical therapy. Will Magallon M.D. Angie Alonzo M.D. Re: Abimbola Dumas : 1945 Page 2 Thank you for the opportunity to participate in the care of Mrs. Dumas. If I may be of further assistance, do not hesitate to contact me via my office. Sincerely, Aileen Owens M.D., [facility], [facility] Tin Cuttermagnetic resonance technologist [facility] Director, Interventional Cardiology JTD/l cc: Ryan Lynch M.D. Enclosure documented in this encounter Plan of Treatment Not on file documented as of this encounter Visit Diagnoses Not on filedocumented in this encounter Care Teams Speech Teacher Relationship Specialty Start Date End Date Angie Alonzo MD [address] [place] [address] [address] [place] [address] PCP - General Family Medicine 06/25/17 documented as of this encounter
--- OUTSIDE RECORDS SUMMARY | 2024-03-11 15:16 | XMS_ITS | Encounter Summary ---
Author Organization [facility] Address [facility] [place] [address] Care Team Providers Care Expeller Worker Name Role Phone Angie Alonzo MD Primary Care Provider [phone] Encounter Details Date Type Department Care Team (Late st Contact Info) Description 01/20/2019 9:06 AM EDT - 01/20/2019 11:59 PM EDT Hospital Encounter Mammography/[place] [phone] Rajwinder Moore APRN [facility] [place] [address] History of breast cancer Discharge Disposition: Home Social History [...] blood-glucose meter (FREESTYLE) Kit 1 each by [facility].(Non-Drug; Combo Route) route as [...] Apply topically daily. 400 g 09/02/2017 02/22/2019 EMOLLIENT BASE (CREAM BASE TOP) Apply topically. [...] MAMMO SCREENING CAD AND WAYNE BILATERAL Routine 01/20/2019 9:38 AM EDT History of breast cancer documented in this encounter Results * Mammo Screening Cad and Wayne Bilateral (01/20/2019 9:38 AM EDT) Anatomical Region Laterality Modality Breast Bilateral Mammography Narrative 01/20/2019 9:57 AM EDT EXAMINATION: MAMMO SCREENING CAD AND [...] screening. BIRADS CATEGORY 2: BENIGN FINDINGS * ??Medical organizations agree that annual screening mammography beginning at age 40 saves the most lives. * ??The risks of screening are negligible compared to dying from breast cancer or suffering from more aggressive treatment required when detected at a later stage. * ??No woman is at low risk for breast cancer. * ??Some women, because of their family history, a genetic tendency, or certain other factors, should be screened with breast MRI along with mammograms. (The number of women who fall into this category is very small). The patient and health care provider should discuss the patient history and decide if earlier screening and breast MRI are appropriate. * ??Screening should continue as long as a woman is in good health and is expected to live 10 years or longer. * ??Screening mammography may not detect 10-15% of breast cancers. * ??Women should report any breast changes to a health care provider right away. Thank you for letting us participate in the care of this patient. For questions regarding this report, please contact the number below. ? Electronically signed by: Alona Nielsen [facility] ([phone]), at 01/20/2019 9:57 AM Rajwinder Moore SALES [employer] MAMMO ORDERA BLES documented in this encounter Visit Diagnoses Diagnosis History of breast cancer Personal history of malignant neoplasm of breast documented in this encounter Care Teams Expeller Worker Relationship Specialty Start Date End Date Angie Alonzo MD [address] [place] [address] PCP - General Family Medicine 06/25/17 documented as of this encounter
--- OUTSIDE RECORDS SUMMARY | 2024-03-11 15:16 | XMS_ITS | Encounter Summary ---
Author Organization [facility] Address [facility] [place] [address] Care Team Providers Care Can Line Examiner Name Role Phone Angie Alonzo MD Primary Care Provider [phone] Encounter Details Date Type Department Care Team (Latest Contact Info) Description 02/24/2019 Unscheduled Encounter Cardiac Surgery at [facility] [place] [address] Ryan Lynch MD Coronary artery disease of [place] heart with stable angina pectoris, unspecified vessel [...] as of this encounter Progress Notes * Ryan Lynch MD - 02/24/2019 1:32 PM EDT Cardiothoracic Surgery Consultation Abimbola Dumas is seen at the request of Sherita MARTÍNEZ for evaluation of CAD. HPI: Abimbola Dumas is a 73 y.o. year old female who was seeking clearance for a hip replacement. Due to herhistory she was given a stress test that was postitive. Problem List: Patient Active Problem List Diagnosis ??? Malignant neoplasm of upper-inner quadrant [...] on September 16, 2017. Past Medical History: Past Medical History: Diagnosis Date ??? Arthritis ??? Breast cancer ??? Diabetes mellitus pre-DM ??? GERD (gastroesophageal reflux disease) ??? Hypertension ??? Stroke Past Surgical History: Past Surgical History: Procedure Laterality Date ??? BREAST BIOPSY ??? BREAST LUMPECTOMY Left 07/2017 ??? BREAST SURGERY R lumpectomy, benign ??? BREAST SURGERY Right ? patient states benign surgery years ago ??? CHOLECYSTECTOMY ??? HYSTERECTOMY oophorectomy ??? ORTHOPEDIC SURGERY R hip ??? PRO ADJ TISS XFER TRUNK 10.1-30 Left 07/04/2017 ADJ.TISSUE TRANSFER, REARRANGEMENT, TRUNK,10.1 TO 30 SQ CM (WRVU 8.78) performed by Ashley Farooq MD at [facility] MA[facility] OR ??? PRO BX/REMV, LYMPH NODE, DEEP AXILL Left 07/04/2017 BIOPSY OR EXCISION OF LYMPH NODE(S), OPEN, DEEP AXILLARY NODE(S) (WRVU 6.43) performed by Ashley Farooq MD at [facility] MAIN OR ??? PRO INTRAOP SENTINEL LYMPH ID W/DYE INJECTION Left 07/04/2017 INTRAOPERATIVE ID (MAPPING) SENTINEL LYMPH NODE,INCLUDES INJECTION (WRVU 2.5) performed by Ashley Farooq MD at [facility] OR ??? PRO MASTECTOMY, PARTIAL Left 07/04/2017 MASTECTOMY PARTIAL (WRVU 10.13) performed by Ashley Farooq MD at [facility] MA[facility] OR Family History: Family History Problem Relation Age of Onset ??? Lung Cancer Sister smoker ??? Breast Cancer Neg Hx ??? Ovarian Cancer Neg Hx Social History: Social History Socioeconomic History ??? Marital status: [...] Activity ??? Alcohol use: Not on file Comment: very occasional ??? Drug use: No ??? Sexual activity: Not on file Lifestyle ??? Physical activity: Days per week: Not on file Minutes per session: Not on file ??? Stress: Not on file Relationships ??? Social connections: Talks on phone: Not on file Gets together: Not on file Attends anabaptist service: Not on file Active member of [...] Social History Narrative ??? Not on file Review of Systems: Constitutional - no weakness, fatigue, fevers HEENT [...] paresthesias Hematologic - no bruising, excessive bleeding Allergies: Allergies Allergen Reactions ??? Penicillins Meds: No outpatient medications have been marked as taking for the 02/24/19 encounter (Unscheduled Encounter) with Ryan Lynch MD. Physical Exam: There were no vitals filed for this visit. Constitutional:Well appearing in no acute distress. Skin: Warm, well perfused. HEENT: within normal limits. NC/AT EOMI Neck: supple, no JVD, no bruit. Heart: regular rate and rhythm, without murmurs. Lungs: clear bilaterally. Abdomen: soft, nontender, active bowel sounds, no masses noted. Extremities: full range of motion; no clubbing, cyanosis, or edema. Neuro exam: Alert and oriented x 3. Strength grossly normal. Diagnositcs: No results for input(s): WBC, NA, K, CL, CO2, GLUCOSE in the last 72 hours. Invalid input(s): HBG, HCT, PLATELETS, , BUN, CREATININE, TROP CATH: ECHO: Assessment and Plan: Abimbola Dumas is a 73 yo female with a history of angina who upon pre op for a hip had a positive stress test and was cathed. 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 We had a long discussion regarding the [...] seems to understand and wishes to proceed. We plan surgery on next . documented in this encounter Plan of Treatment Not on file documented as of this encounter Procedures Procedure Name Priority Date/Time Associated Diagnosis Comments ENDOSCOPIC HARVEST VEIN(S) FOR CABG Routine 02/24/2019 1:33 PM EDT Coronary artery disease of [place] heart with stable angina pectoris, unspecified vessel or lesion type @CABG,USING ARTERIAL GRAFT;SINGLE ARTERIAL GRAFT Routine 02/24/2019 1:33 PM EDT Coronary artery disease of [place] heart with stable angina pectoris, unspecified vessel or lesion type @CABG;3 VENOUS GRAFTS & ARTERIAL GRAFT Routine 02/24/2019 1:33 PM EDT Coronary artery disease of [place] heart with stable angina pectoris, unspecified vessel or lesion type documented in this encounter Results * XR Chest PA & Lateral (Generic) (02/24/2019 4:13 PM EDT) Anatomical Region Laterality Modality Chest N/A Digital Radiogra phy Impressions 02/24/2019 5:06 PM EDT No acute cardiopulmonary process. I have personally reviewed the image(s) and the residents interpretation and agree with the findings, Shanae Drake at 02/24/2019 5:06 PM Thank you for letting us participate in the care of this patient. For questions regarding this report, please contact the number below. ? Electronically signed by: Shanae Drake [facility] ([phone]), at 02/24/2019 5:06 PM Narrative 02/24/2019 5:06 PM EDT EXAMINATION: XR CHEST PA AND LATERAL (GENERIC) CLINICAL HISTORY: pre op TECHNIQUE: Frontal and lateral views of the chest COMPARISON: CT chest 07/23/2017 FINDINGS: Interpretation is limited by patient rotation. Lungs are within normal limits. No pneumothorax or pleural effusion. Normal cardiomediastinal silhouette, pulmonary vascular markings, and noah allowing for rotation. No acute bony abnormality. Surgical clips are noted within the LEFT breast and axilla, as well as in the RIGHT upper quadrant of the abdomen. Procedure Note Shanae Loja MD - 02/24/2019 EXAMINATION: XR CHEST PA AND LATERAL (GENERIC) CLINICAL HISTORY: pre op TECHNIQUE: Frontal and lateral views of the chest COMPARISON: CT chest 07/23/2017 FINDINGS: Interpretation is limited by patient rotation. Lungs are within normallimits. No pneumothorax or pleural effusion. Normal cardiomediastinalsilhouette, pulmonary vascular markings, and noah allowing for rotation. No acutebony abnormality. Surgical clips are noted within the LEFT breast and axilla,as well as in the RIGHT upper quadrant of the abdomen. IMPRESSION No acute cardiopulmonary process. I have personally reviewed the image(s) and the residents interpretationand agree with the findings, Shanae Drake at 02/24/2019 5:06 PM Thank you for letting us participate in the care of this patient. Forquestions regarding this report, please contact the number below. Electronically signed by: Shanae Drake [facility]([phone]), at 02/24/2019 5:06 PM Ryan Lynch MD IMG DX ORDERABLES * (ABNORMAL) Basic Metabolic Panel (non-fasting) (02/24/2019 3:52 PM EDT) Glucose 106 65 - 199 mg/dL [facility] Comment:Diabetes: >=200 mg/d L plus symptoms Blood Urea Nitrogen 18 8 - 18 mg/dL [facility] Creatinine 0.53(L) 0.70 - 1.20 mg/dL [facility] Sodium 141 135 - 145 mmol/L [facility] Potassium 3.6 3.5 - 5.0 mmol/L [facility] Comment: Please note: ??Patients with WBC >100,000 may have falsely elevated Potassium levels. ??For accurate Potassium quantification in these patients send serum separator tube (gold top) for subsequent determinations. ??Contact the Clinical Chemistry Laboratory if there are any questions. Chloride 105 98 - 107 mmol/L [facility] Carbon Dioxide 23 22 - 31 mmol/L [facility] Anion Gap 13 5 - 15 mmol/L [facility] Calcium 9.3 8.5 - 10.5 mg/dL [facility] Est Glomerular Filtration Rate 93 >=60 mL/min/1. 73 m?? [facility] Comment: The eGFR was calculated using the CKD-EPI equation. As with all creatinine based estimates of kidney function, eGFR values calculated with the CKD-EPI equation are not accurate in patients with acute kidney failure, extremes of body mass or the acutely ill. http://[employer]/DHMCnkf eGFR 108 >=60 mL/min/1. 73 m?? [facility] Comment: The eGFR was calculated using the CKD-EPI equation. As with all creatinine based estimates of kidney function, eGFR values calculated with the CKD-EPI equation are not accurate in patients with acute kidney failure, extremes of body mass or the acutely ill. http://[employer]/DHMCnkf Blood specimen (specimen) 02/24/2019 3:52 PM EDT 02/24/2019 4:07 PM EDT Narrative Resulting Agency Comment Spec In Lab Ryan Lynch MD CHEMISTRY ORDERABLE S [facility] [place] [address] documented in this encounter Visit Diagnoses Diagnosis Coronary artery disease of [place] heart with stable angina pectoris, unspecified vessel or lesion type Coronary artery disease of [place] heart with stable angina pectoris, unspecified vessel or lesion type documented in this encounter Care Teams Can Line Examiner Relationship Specialty Start Date End Date Angie Alonzo MD [address] [place] [address] PCP - General Family Medicine 06/25/17 documented as of this encounter
--- OUTSIDE RECORDS SUMMARY | 2024-03-11 15:16 | XMS_ITS | Encounter Summary ---
Author Organization [facility] Address [facility] [address] Care Team Providers Care Telephone Quotation Clerk Name Role Phone Angie Alonzo MD Primary Care Provider [phone] Encounter Details Date Type Department Care Team (Late st Contact Info) Description 01/14/2018 9:08 AM EDT - 01/14/2018 11:59 PM EDT Hospital En[place] [address] Ashley Farooq MD [facility] [place] [address] Malignant neoplasm of upper-outer quadrant of left breast in female, estrogen [...] (FREESTYLE) Kit 1 each [place] [facility] [place]-Drug; Combo Route) route as needed for Other. aspirin 81 mg Tablet, Chewable Take 81 mg by mouth daily. amLODIPine (NORVASC) 5 mg Tablet Take 5 mg by mouth daily. 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 400 g 09/02/2017 02/22/2019 tamoxifen (NOLVADEX) 20 mg TabletIndications:Krisyt sterling neoplasm of upper-inner quadrant of left [...] Take 40 mg by mouth daily. 03/09/2019 DILTiazem (CARDIZEM CD) 240 mg Capsule, Sust. Release 24 hr Take 240 mg by mouth daily. 06/09/2018 chlorthalidone (HYGROTEN) 25 mg Tablet Take 25 [...] Name Priority Date/Time Associated Diagnosis Comments MAMMO DIAGNOSTIC CAD AND WAYNE BILATERAL Routine 01/14/2018 9:47 AM EDT Malignant neoplasm of upper-outer quadrant of left breast in female, estrogen receptor positive documented in this encounter Results * Mammo Diagnostic CAD and Wayne Bilateral (01/14/2018 9:47 AM EDT) Anatomical Region Laterality Modality Breast Bilateral Mammography Narrative 01/14/2018 9:56 AM EDT REASON FOR EXAM: Screening. History of left breast cancer. TECHNIQUE: CC and MLO views were obtained of both breasts. Computer aided detection was used. 3D tomosynthesis images were obtained in addition to 2D images. Comparison: The study is compared with prior images. FINDINGS: Breast density:The breasts are almost entirely fatty. There are no suspicious microcalcifications, masses, or areas of distortion. There are post treatment changes in the left breast. CONCLUSION: No mammographic evidence of malignancy. RECOMMENDATION: Routine screening. BIRADS CATEGORY 2: BENIGN FINDINGS * [...] to a health care provider right away. Ashley Pink MD [facility] MAMMO ORDERA BLES documented in this encounter Visit Diagnoses Diagnosis Malignant neoplasm of upper-outer quadrant of left breast in female, estrogen receptor positive documented in this encounter Care Teams Telephone Quotation Clerk Relationship Specialty Start Date End Date Angie Alonzo MD [facility] [address] [place] [address] PCP - General Family Medicine 06/25/17 documented as of this encounter
--- OUTSIDE RECORDS SUMMARY | 2024-03-11 15:16 | XMS_ITS | Encounter Summary ---
Author Organization [facility] Address [facility] [place] [address] Care Team Providers Care Direct Support Staff Member Name Role Phone Angie Alonzo MD Primary Care Provider [phone] Reason for Visit * Reason Onset Date Comments Pharmacy Call 09/16/2018 pt's choice of p harmacy Encounter Details Date Type Department Care Team (Late st Contact Info) Description 09/16/2018 Telephone Hematology and Oncology at [facility] [place] [phone] Sue Atwood RN Pharmacy Call (pt's choice of pharmacy) Social History Tobacco Use Types Packs/Day Years Used Date Smoking Tobacco: Never Smokeless Tobacco: Never Sex and Gender Information Value Date Recorded Sex Assigned at Not on file Gender Identity Not on file Sexual Orientation Not on file documented as of this encounter Miscellaneous Notes * Telephone Encounter - Sue Atwood RN - 09/16/2018 11:06 AM EDT Message received:: When I last saw Abimbola, she asked me to refill her tamoxifen through [facility] in [facility] or about September 16, but I cannot find this pharmacy listed, and her chart says that her prescriptions should be filled through [facility]. Could you please call her and find out where the tamoxifen refill should be sent? T/C to Patient: Called patient, left [id number] Patient returned call and her scripts should now go to [facility] in [facility]. documented in this encounter Plan of Treatment Not on file documented as of this encounter Visit Diagnoses Not on filedocumented in this encounter Care Teams Direct Support Staff Member Relationship Specialty Start Date End Date Angie Alonzo MD [address] [facility] [address] [place] [address] PCP - General Family Medicine 06/25/17 documented as of this encounter
--- OUTSIDE RECORDS SUMMARY | 2024-03-11 15:16 | XMS_ITS | Encounter Summary ---
Author Organization [facility] Address [facility] [place] [address] Care Team Providers Care Professor Of Latin American Studies Name Role Phone Angie Alonzo MD Primary Care Provider [phone] Reason for Visit * Reason Comments Radiation Follow-up Encounter Details Date Type Department Care Team (Late st Contact Info) Description 06/09/2018 1:00 PM EST Office Visit Radiation Oncology at [address] [phone] Bethany Merrill MD [facility] [place] [address] Malignant neoplasm of left breast in female, estrogen receptor positive, unspecified site of breast Social History Tobacco Use Types Packs/Day Years Used Date Smoking Tobacco: Never Smokeless Tobacco: Never Sex and Gender Information Value Date Recorded Sex Assigned at Not on file Gender Identity Not on file Sexual Orientation Not on file documented as of this encounter Last Filed Vital Signs Vital Sign Reading Time Taken Comments Blood Pressure 139/53 06/09/2018 1:04 PM EST Pulse 74 06/09/2018 1:04 PM EST Temperature 36.5 ??C (97.7 ??F) 06/09/2018 1:04 PM ES T Respiratory Rate 16 06/09/2018 1:04 PM EST Oxygen Saturation 96% 06/09/2018 1:04 PM EST Inhaled Oxygen Concentration - - Weight 94.7 kg (208 lb 12.8 oz) 06/09/2018 1:04 PM EST Height - - Body Mass Index 33.7 02/28/2018 12:53 PM EDT documented in this encounter Patient Instructions * Patient Instructions* Bethany Merrill MD - 06/09/2018 1:00 PM EST Your exam is without worrisome finding. We will mail you a letter with an appointment for followup in 6 months, @ which time you would be seen by me or by one of the Radiation Oncology Advanced Practice RNs. documented in this encounter Progress Notes * Bethany Merrill MD - 06/09/2018 1:00 PM EST Images from the original note were not included. CC: Sched'd fu s/p xrt completion. HPI: 72 y/o f who completed xrt 9 mos ago (09/02/17) to L breast for breast ca, IDC, low gr, ER+ID+, Her2 neg, s/p lumpectomy & SNB, pT1b pN0, stage I. She is on jackson, started after xrt completion. 11/21/[address] Jeff (Endocrine) for thyroid needle; repeat FNA R thyroid nodule that day Cytopath: Atypia of undetermined significance. 01/14/18 B mmg: Benign. 01/14/18 fu w/Luis Alberto Moore, Surg Onc; rtc 1 yr w/mmg. 02/28/18 fu w/Dr. Jeff; US guided FNA R lower lobe thyroid nodule. ThyGeNEXT: No Mutation. ThyrMIR: Neg. Conclusion: Nodule very highly likely benign. ROS: No breast problem. No hand/arm swelling. ROM arms around shoulders ok. Appetite & energy level ok. Past Medical History: Diagnosis Date ??? Arthritis ??? Breast cancer ??? Diabetes mellitus pre-DM ??? GERD (gastroesophageal reflux disease) ??? Hypertension ??? Stroke Past Surgical History: Procedure Laterality Date ??? BREAST BIOPSY ??? BREAST CYST EXCISION Right ? patient states benign surgery years ago ??? BREAST LUMPECTOMY Left 07/2017 ??? BREAST SURGERY R lumpectomy, benign ??? CHOLECYSTECTOMY ??? HYSTERECTOMY oophorectomy ??? ORTHOPEDIC SURGERY R hip ??? PRO ADJ TISS XFER TRUNK 10.1-30 Left 07/04/2017 ADJ.TISSUE TRANSFER, REARRANGEMENT, TRUNK,10.1 TO 30 SQ CM (WRVU 8.78) performed by Ashley Farooq MD at [facility] MAIN OR ??? PRO BX/REMV, LYMPH NODE, DEEP AXILL Left 07/04/2017 BIOPSY OR EXCISION OF LYMPH NODE(S), OPEN, DEEP AXILLARY NODE(S) (WRVU 6.43) performed by Ashley Farooq MD at [facility] MAIN OR ??? PRO INTRAOP SENTINEL LYMPH ID W/DYE INJECTION Left 07/04/2017 INTRAOPERATIVE ID (MAPPING) SENTINEL LYMPH NODE,INCLUDES INJECTION (WRVU 2.5) performed by Ashley Farooq MD at [facility] MAIN OR ??? PRO MASTECTOMY, PARTIAL Left 07/04/2017 MASTECTOMY PARTIAL (WRVU 10.13) performed by Ashley Farooq MD at [facility] MAIN OR R breast lumpectomy 20 yrs ago (benign) Hysterectomy @ age 48 yrs. Your Medications Accurate as of 06/09/18 11:59 PM. If you have any questions, ask your nurse or doctor. Continued medications, unchanged Dose Details amLODIPine 5 mg Tab Commonly known as: NORVASC Take 5 mg by mouth daily. 5 mg Refills: 0 aspirin 81 mg Chew Take 81 mg [...] CITRATE-VITD3 ORAL Take by mouth. Refills: 0 chlorthalidone 25 mg Tab Commonly known as: HYGROTEN Take 25 mg by mouth daily. 25 mg Refills: 0 CITRUCEL ORAL Take by mouth daily as needed. Refills: 0 CREAM BASE TOP Apply topically. Jeans Cream. Apply to area of radiation twice a day but no less than 2 hours before a treatment. Refills: 0 lisinopril 40 mg Tab Commonly known as: PRINIVIL;ZESTRIL Take 40 mg by mouth daily. 40 mg Refills: 0 metoprolol succinate 50 mg Tablet sr Commonly known as: TOPROL-XL Take 50 mg by mouth daily. 50 mg Refills: 0 multivitamin Cap Take 1 capsule by mouth daily. 1 capsule Refills: 0 pantoprazole 20 mg Tbec Commonly known as: PROTONIX Take 20 mg by mouth daily. 20 mg Refills: 0 potassium chloride 20 mEq Pack Commonly known as: KLOR-CON Take 20 mEq by mouth daily. 20 mEq Refills: 0 silver sulfADIAZINE 1 % Crea Commonly known as: SILVADENE Apply topically daily. Quantity: 400 g Refills: 0 tamoxifen 20 mg Tab Commonly known as: NOLVADEX Take 1 tablet by mouth daily. Start on September 16, 2017. 20 mg Quantity: 90 tablet Refills: 3 Physical Exam Constitutional: She is oriented to person, place, and time. She appears well- developed and well-nourished. No distress. BP 139/53 (Patient Position: Sitting) Pulse 74 Temp 36.5 ??C (97.7 ??F) (Oral) Resp 16 Wt 94.7 kg (208 lb 12.8 oz) SpO2 96% BMI 33.70 kg/m?? HENT: Head: Normocephalic and atraumatic. Eyes: Conjunctivae and EOM are normal. Right eye exhibits no discharge. Left eye exhibits no discharge. No scleral icterus. Neck: Normal range of motion. Neck supple. No tracheal deviation present. No thyromegaly present. Pulmonary/Chest: Effort normal and breath sounds normal. No stridor. No respiratory distress. She has no wheezes. She has no rales. She exhibits no tenderness. Right breast exhibits no inverted nipple, no mass, no nipple discharge, no skin change and no tenderness. Left breast exhibits skin change ( Minimal hyperpigmentation, consistent w/expected post xrt change). Left breast exhibits no invertednipple, no mass, no nipple discharge and no tenderness. Abdominal: Soft. She exhibits no distension and no mass. There is no tenderness. There is no rebound and no guarding. Musculoskeletal: Normal range of motion. She exhibits no edema or tenderness. Lymphadenopathy: Head (right side): No submental, no submandibular, no preauricular, no posterior auricular and no occipital adenopathy present. Head (left side): No submental, no submandibular, no preauricular, no posterior auricular and no occipital adenopathy present. She has no cervical adenopathy. She has no axillary adenopathy. Right: No supraclavicular adenopathy present. Left: No supraclavicular adenopathy present. Neurological: She is alert and oriented to person, place, and time. No cranial nerve deficit. She exhibits normal muscle tone. Coordination normal. Skin: She is not diaphoretic. Psychiatric: She has a normal mood and affect. Her behavior is normal. Judgment and thought contentnormal. A: ANNA. P: Rtc 6 mos. documented in this encounter Plan of Treatment Not on file documented as of this encounter Visit Diagnoses Diagnosis Malignant neoplasm of left breast in female, estrogen receptor positive, unspecified site of breast documented in this encounter Care Teams Professor Of Latin American Studies Relationship Specialty Start Date End Date Angie Alonzo MD [address] [place] [address] [address] [place] [address] PCP - General Family Medicine 06/25/17 documented as of this encounter
--- OUTSIDE RECORDS SUMMARY | 2024-03-11 15:16 | XMS_ITS | Encounter Summary ---
Author Organization [facility] Address [facility] [place] [address] Care Team Providers Care Joint Maker Machine Name Role Phone Anige Alonzo MD Primary Care Provider [phone] Encounter Details Date Type Department Care Team (Late st Contact Info) Description 07/18/2018 10:30 AM EST Office Visit Hematology [place] [address] Kalyan Damico MD [facility] HEMATOLOGY/[facility] DEPT. [place] [id number] Malignant neoplasm of upper-inner quadrant of left [...] Sign Reading Time Taken Comments Blood Pressure 147/59 07/18/2018 9:45 AM EST Pulse 78 07/18/2018 9:45 AM EST Temperature 37 ??C (98.6 ??F) 07/18/2018 9:45 AM EST Respiratory Rate 18 07/18/2018 9:45 AM EST Oxygen Saturation 98% 07/18/2018 9:45 AM EST Inhaled Oxygen Concentration - - Weight 94.8 kg (209 lb) 07/18/2018 9:45 AM EST Height 168 cm (5' 6.14) 07/18/2018 9:45 AM EST Body Mass Index 33.59 07/18/2018 9:45 AM EST documented in this encounter Progress Notes * Kalyan Damico MD - 07/18/2018 10:30 AM EST Subjective: Patient ID: Abimbola Dumas is a [...] tamoxifen has gone well so far. She fell off the last stair in her cellar and fractured the right wrist in May. She is in a cast and anticipates that the cast will remain on until early August. She has long-standing pain in her knees, left hip, and in the basilar joints of her thumbs. She denies any new sites of joint or skeletal pain. She has night time leg cramping a few times a weekdespite her use of a bedtime dose of apple cider vinegar, and she has to get up and walk off the cramp before she can get to sleep. She denies any hot flashes, sweats, or vaginal bleeding. She has noredness, swelling, or warmth in her legs. Review of Systems She denies breast pain or a palpable breast mass, a cough, shortness of breath, chest pain, nausea,vomiting, diarrhea, constipation, headaches, double vision, or skin rashes. The remainder of her review of systems is negative. Objective: Physical Exam Constitutional: Her weight is down 1 kg over the past six months, and her BP is 147/59. HENT: Mouth/Throat: Oropharynx is clear and moist. [...] The skin of the left breast is still edematous. There are no masses within either the left orthe right breast, and there is no axillary adenopathy palpable on either side. Abdominal: Soft. She exhibits no distension and no mass. There is no tenderness. There is no guarding. Musculoskeletal: She exhibits edema. She has no pain on percussion over the spine, sternum, ribs, or hips. She has trace edema in the lower extremities without erythema, warmth, or calf tenderness. Lymphadenopathy: She has no cervical adenopathy. Skin: Skin is warm and dry. No erythema. Vitals reviewed. Recent Results (from the past 24 hour(s)) Hepatic Function Panel Result Value Ref Range Total Protein 6.4 6.1 - 8.0 gm/dL Albumin 3.9 3.2 - 5.2 gm/dL AST 19 0 - 30 unit/L ALT 17 0 - 30 unit/L Alk Phos 60 40 - 104 unit/L Total Bilirubin 0.3 0.2 - 1.3 mg/dL Bili, Direct 0.1 0.0 - 0.3 mg/dL The CBC and electrolytes from June 19, 2017 showed a WBC count of 8.1, Hgb 14.6, Hct 43.0, platelets 304, ANC 5770, Na 144, K 3.7, Cl 102, bicarb 27, BUN 24, creatinine 0.69, and Ca 9.7. Assessment and Plan: Ms. 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 She has been taking tamoxifen for ten months, and she is tolerating it very well, without an increase in her leg cramping or in her generalized musculoskeletal pain. I will ask her to take a total of five years of tamoxifen through August of 2022. I will see her next in followup in six months, and I will coordinate that appointment with Juliana Moore and with her next mammograms. She knows to contact us in the interim if she has any concerns over her breast exam or over the tamoxifen. Kalyan Damico MD health information tech in Hematology-Oncology documented in this encounter Plan of Treatment Not on file documented as of this encounter Visit Diagnoses Diagnosis Malignant neoplasm of upper-inner quadrant of left breast in female, estrogen receptor positive documented in this encounter Care Teams Joint Maker Machine Relationship Specialty Start Date End Date Angie Alonzo MD [address] [place], [place] [address] [place] [address] PCP - General Family Medicine 06/25/17 documented as of this encounter
--- OUTSIDE RECORDS SUMMARY | 2024-03-11 15:16 | XMS_ITS | Encounter Summary ---
Author Organization [facility] Address [facility] [place] [address] Care Team Providers Care Cad Manager Name Role Phone Angie Alonzo MD Primary Care Provider [phone] Encounter Details Date Type Department Care Team (Late st Contact Info) Description 04/10/2018 External [place] [phone] Provider, Scanning Social History Tobacco Use Types Packs/Day Years Used Date Smoking Tobacco: Never Smokeless Tobacco: Never Sex and Gender Information Value Date Recorded Sex Assigned at Not on file Gender Identity Not on file Sexual Orientation Not on file documented as of this encounter Plan of Treatment Not on file documented as of this encounter Procedures Procedure Name Priority Date/Time Associated Diagnosis Comments CYTOLOGY SCAN Routine 04/10/2018 documented in this encounter Results * Scan Doc: Cytology (04/10/2018) Historical Provider MD VELAZQUEZ MGR SCAN EX T ORDR/RSLT documented in this encounter Visit Diagnoses Not on filedocumented in this encounter Care Teams Cad Manager Relationship Specialty Start Date End Date Angie Alonzo MD [address] [place] [address] PCP - General Family Medicine 06/25/17 documented as of this encounter
--- OUTSIDE RECORDS SUMMARY | 2024-03-11 15:16 | XMS_ITS | Encounter Summary ---
Author Organization [facility] Address [facility] [place] [address] Care Team Providers Care Commercial Insulator Name Role Phone Angie Alonzo MD Primary Care Provider [phone] Encounter Details Date Type Department Care Team (Late st Contact Info) Description 12/17/2017 External [place] [address] Provider, Scanning Social History Tobacco Use Types [...] Date/Time Associated Diagnosis Comments CYTOLOGY SCAN Routine 12/17/2017 documented in this encounter Results * Scan Doc: Cytology (12/17/2017) Historical Provider MD VELAZQUEZ MGR SCAN EX T ORDR/RSLT documented in this encounter Visit Diagnoses Not on filedocumented in this encounter Care Teams Commercial Insulator Relationship Specialty Start Date End Date Angie Alonzo MD [address] [place] [address] PCP - General Family Medicine 06/25/17 documented as of this encounter
--- OUTSIDE RECORDS SUMMARY | 2024-03-11 15:16 | XMS_ITS | Encounter Summary ---
Author Organization [facility] Address [facility] [place] [address] Care Team Providers Care Well Blower Name Role Phone Angie Alonzo MD Primary Care Provider [phone] Encounter Details Date Type Department Care Team (Late st Contact Info) Description 09/16/2018 Orders Only Hematology [place] [address] Kalyan Damico MD [facility] DR HEMATOLOGY/[place] [address] Malignant neoplasm of upper-inner quadrant of left [...] positive documented in this encounter Care Teams Well Blower Relationship Specialty Start Date End Date Angie Alonzo MD [address] [place] [address] PCP - General Family Medicine 06/25/17 documented as of this encounter
--- OUTSIDE RECORDS SUMMARY | 2024-03-11 15:16 | XMS_ITS | Encounter Summary ---
Author Organization [facility] Address [facility] [place] [address] Care Team Providers Care Header Dock Name Role Phone Angie Alonzo MD Primary Care Provider [phone] Reason for Visit * Reason Comments Radiation Follow-up breast cancer Encounter Details Date Type Department Care Team (Late st Contact Info) Description 02/19/2019 10:30 AM EDT Office Visit Radiation Oncology at [address] [phone] Iris Cohn APRN [address] [place] [address] RADIATION ONCOLOGY [place], [place] [id number] Breast cancer, stage 1, estrogen receptor positive, left Social History Tobacco Use Types Packs/Day Years Used Date Smoking Tobacco: Never Smokeless Tobacco: Never Sex and Gender Information Value Date Recorded Sex Assigned at Not on file Gender Identity Not on file Sexual Orientation Not on file documented as of this encounter Last Filed Vital Signs Vital Sign Reading Time Taken Comments Blood Pressure 152/57 02/19/2019 10:24 AM EDT Pulse 82 02/19/2019 10:24 AM EDT Temperature 36.5 ??C (97.7 ??F) 02/19/2019 10:24 AM E DT Respiratory Rate 20 02/19/2019 10:24 AM EDT Oxygen Saturation 97% 02/19/2019 10:24 AM EDT Inhaled Oxygen Concentration - - Weight 97.7 kg (215 lb 6.4 oz) 02/19/2019 10:24 AM EDT Height 167.6 cm (5' 6) 02/19/2019 10:24 AM EDT Body Mass Index 34.77 02/19/2019 10:24 AM EDT documented in this encounter Progress Notes * Iris Cohn, INSTALLER APPRENTICE - 02/19/2019 10:30 AM EDT Patient ID: Abimbola Dumas is a 73 y.o. female completed xrt on 09/02/17 to a dose of 52.56 Gy for L breast ca, IDC, low gr, ER+PA+, Her2 neg, s/p lumpectomy & SNB, pT1b pN0, stage I. She was started on hormone therapy post completion of radiation therapy. She is in clinic for scheduled follow-up. ?? HPI 71 y/o f who presented w/L breast abnlty on screening mmg. ?? 11/06/16 B screening mmg ([place]): Questionable increased density medial subareolar L breast. [...] core bx. ?? Path: IDC, low gr, ER+PA+, Her2 FISH neg. ?? 06/19/17 eval by [...] xrt used throughout treatment. She is on goldberg, started after xrt completion. Treatment summary BREAST CANCER NOTES 02/22/2019 Method of Cancer Detection abnormal mammogram of the left breast Menopausal Status at Diagnosis post-menopausal Date of Diagnostic Biopsy 05/28/2017 Local Surgery Lumpectomy done by Dr Farooq Axillary lymph node Management [place] nodes alone Total Number of Nodes Removed [...] Grade low Margin negative ER-estrogen receptor positive PA--progesterone receptor positive HER-2/FISH negative Endocrine Therapy Recommended for Hormone Sensitive Invasive Tumor yes First Adjuvant Endocrine Therapy Tamoxifen Dates of radiation 08/05/17 through 09/02/2017 Radiation [place] Protocol Radiation Boost yes Total Dosage of [...] of left breast in female, estrogen receptor oabitcrjN70.212, Z17.0 Past Surgical History: Procedure Laterality Date ??? [...] 8.78) performed by Ashley Farooq MD at [facility] MAIN OR ??? PRO BX/REMV, LYMPH NODE, DEEP AXILL Left 07/04/2017 BIOPSY OR EXCISION OF LYMPH NODE(S), OPEN, DEEP AXILLARY NODE(S) (WRVU 6.43) performed by Ashley Farooq MD at [facility] MAIN OR ??? PRO INTRAOP SENTINEL LYMPH ID W/DYE INJECTION Left 07/04/2017 INTRAOPERATIVE ID (MAPPING) SENTINEL LYMPH NODE,INCLUDES INJECTION (WRVU 2.5) performed by Ashley Farooq MD at [facility] MAIN OR ??? PRO MASTECTOMY, PARTIAL Left 07/04/2017 MASTECTOMY PARTIAL (WRVU 10.13) performed by Ashley Farooq MD at [facility] MAIN OR Review and update of social [...] Interim History: Ms Dumas reports that she is currently undergoing cardiac testing due to a new murmur. She has had astress test and is scheduled for a cardiac cath 02/24/2019. The workup needs to be done prior to having left knee replacement surgery which she is eager to have due to pain involving this joint. Time from completion of treatment 1 year Problems at primary site (breast) No issues Metastatic symptoms: none Pain None Breast tenderness None Skin changes breast None Lymphedema none Persistent cough none Persistent headaches None ROM restriction Has arthritis arms hard to lift --no difference R versus left Functional status Tires more easily -- had alzheimer--he at end of Aug Smoking none Activity/exercise Going to pool at the [employer] and walks Does water therapy at the [employer] --50-60 min 2-3 times a week Hormone therapy side effects None [facility] GOLDBERG prior to hip surgery Black and blue post blood work Supportive family Has emergency alert system due to fall in 2018 and fx left wrist . Review of Systems Constitutional: Positive for fatigue. Negative for activity change, chills, diaphoresis and unexpected weight change. HENT: Negative. Respiratory: Negative. Negative for cough, chest tightness and shortness of breath. Cardiovascular: Positive for leg swelling. Negative for chest pain. New murmur and had stress test and ECHO and to be seen at [facility] to see if needs stent Gastrointestinal: Negative. Genitourinary: Negative. Musculoskeletal: Positive for arthralgias. Does pool therapy To have left hip replacement when cleared by cardiology Skin: Negative. Neurological: Negative. Negative for dizziness, weakness and headaches. Hematological: Bruises/bleeds easily. Psychiatric/Behavioral: Greiving of who in Aug from dementia Has emergency alert system Vitals Office Visit from 02/19/2019 in Radiation Oncology at [facility] Weight 97.7 kg (215 lb 6.4 oz) Height 167.6 cm (5' 6) BSA (Calculated - sq m) 2.13 sq meters BMI (Calculated) 34.76 Temp 36.5 ??C (97.7 ??F) Temp src Oral Heart Rate 82 Heart Rate Source NIBP Resp 20 BP 152/57 Patient Position Sitting SpO2 97 % Objective: Physical Exam Constitutional: She is oriented to person, place, and time. She appears well- developed and well-nourished. No distress. HENT: Head: Normocephalic and atraumatic. Eyes: EOM are normal. Right eye exhibits no discharge. Left eye exhibits no discharge. No scleral icterus. Neck: Neck supple. Cardiovascular: Normal rate and regular rhythm. Exam reveals no gallop and no friction rub. Murmur heard. Pulmonary/Chest: Effort normal and breath sounds normal. No stridor. No respiratory distress. She has no wheezes. She has no rales. She exhibits no tenderness. Abdominal: Soft. Bowel sounds are normal. She exhibits no distension. Musculoskeletal: Normal range of motion. She exhibits no edema. Lymphadenopathy: She has no cervical adenopathy. She has no axillary adenopathy. Right: No supraclavicular adenopathy present. Left: No supraclavicular adenopathy present. Neurological: She is oriented to person, place, and time. She exhibits normal muscle tone. Coordination normal. Skin: She is not diaphoretic. Bruises on arms Psychiatric: She has a normal mood and affect. Her behavior is normal. Judgment and thought contentnormal. Vitals reviewed. Breast__X__ no nipple discharge, no dryness, no erythema, no masses, no tenderness, no lymphedema of breast or arm Treated site: ____Right or __X__Left, __X__Breast or Chest wall Telangectasias: __X__None, ____Few; Moderate; Many and confluent Hypopigmentation: __X__None; ____Slight or localized; ____Marked or generalized Hyperpigmentation: __X__None; ____Slight or localized; ____Marked or generalized Fibrosis: None; __mild X___Increased density; ____Marked increased density + retraction; ____ Very marked Dry skin: __X__None; ____Asymptomatic; symptomatic; Interferes with ADL Cosmetic Result: __X__ Excellent; Good;____ Fair; ____Poor 01/20/2019- mammogram--no evidence of malignancy Assessment and Plan: Abimbola Dumas is a 73 y.o. female completed xrt on 09/02/17 to a dose of 52.56 Gy for L breast ca, IDC, low gr, ER+PA+, Her2 neg, s/p lumpectomy & SNB, pT1b pN0, stage I. She was started on hormone therapy post completion of radiation therapy and tolerating the hormone therapy. She is currently undergoing cardiac workup due to a new murmur prior to having left knee replacement. She knows that she w ill need to hold the GOLDBERG for two weeks prior to surgery due to risk of clots. She has no late effects from treatment of her breast cancer There is ANNA Next mammogram 12/2019 We reviewed signs and symptoms of late effect of radiation therapy including tissue fibrosis, need to do regular stretching exercises, need to report edema to breast or arm and any persistent symptoms including persistent cough, headache, skeletal pain, skin changes. We discussed the survivor benefits of regular exercise and weight control. We will see her again in six months. She is to call if she has any questions or concerns in the interim. Follow-up for a total of 35 minutes, with 30 minutes of that time spent discussing her current clinical condition, reviewing her Breast Cancer Survivor Care Plan which includes review of her breast cancer history, treatment history, health behaviors to promote wellness, ongoing surveillance, late effects of treatments and symptoms to report as well as planning further management. documented in this encounter Plan of Treatment Not on file documented as of this encounter Visit Diagnoses Diagnosis Breast cancer, stage 1, estrogen receptor positive, left documented in this encounter Care Teams Header Dock Relationship Specialty Start Date End Date Angie Alonzo MD [facility] [address] [place] [address] PCP - General Family Medicine 06/25/17 documented as of this encounter
--- OUTSIDE RECORDS SUMMARY | 2024-03-11 15:16 | XMS_ITS | Encounter Summary ---
Author Organization [facility] Address [facility] [place] [address] Care Team Providers Care Paper Goods Machine Operator Name Role Phone Angie Alonzo MD Primary Care Provider [phone] Encounter Details Date Type Department Care Team (Late st Contact Info) Description 02/19/2019 Orders Only Cardiology at [address] [place] [phone] Piotr Parr PA [facility] [place] [address] Abnormal stress test Social History Tobacco Use Types Packs/Day Years Used Date Smoking Tobacco: Never Smokeless Tobacco: Never Sex and Gender Information Value Date Recorded Sex Assigned at Not on file Gender Identity Not on file Sexual Orientation Not on file documented as of this encounter Plan of Treatment Not on file documented as of this encounter Procedures Procedure Name Priority Date/Time Associated Diagnosis Comments CARDIAC CATHETERIZATION Routine 02/25/20 19 11:15 AM EDT Abnormal stress test documented in this encounter Results * CARDIAC CATHETERIZATION (02/24/2019 11:15 AM EDT) Anatomical Region Laterality Modality Other Narrative 02/25/2019 5:49 PM EDT ?[facility] ? Cardiac Catheterization/Intervention Report ? Patient Name: HOAR, ABIMBOLA M. ? Procedure Date: 02/24/2019 ? A #: [id number] ? Primary Physician: Maida, Sam T ? Case #: [id number] ? File Name: [id number] ? Catheterization Order Number: [id number] ? [facility] ? Final Report [place], [place] ? Patient Name: ? ABIMBOLA M. HOAR ?ID#: ?[id number] ? : ?1945 ? Procedure Date: ? February 24, 2019 ?Case #: ? [id number] ? Room: ? 6 ? Case Physician: ? Sam Bey M.D. ?Start: ?10:57 ?Fellow: ? Dina Huerta M.D. ?Admission: ??02/24/2019 ? Discharge: ??02/24/2019 ? Referring Physician: ??Will Magallon M.D. ? Procedures: ?* Coronary Angiography ?* Left Heart Catheterization ? History ?ABIMBOLA JONES is a 73 year old woman. She has hypertension and a family ?history of coronary artery disease. The patient's smoking status is ?Never. She has hypercholesterolemia managed with lipid therapy. The ?patient has diabetes controlled by diet. She has a cerebral vascular ?accident. The patient also has a history of cancer. Prior to the ?initiation of this procedure, the patient was designated as ASA Class ?III. The [facility] clinical frailty scale is 4: Vulnerable. ? Diagnostic Tests: ?Prior Coronary Angiography: ? LV ejection fraction within 6 months is 60%. ?Electrocardiography: ? EKG was assessed by ECG. EKG was Normal. ?Stress or Imaging Studies: ? A stress test with SPECT imaging was performed on 02/12/2019 and was ? Positive with Intermediate results. ?Medications Prior to Procedure: ? ASA, Beta Tracie, Calcium Channel Blocking Agent and Statin. ? Indications for Diagnostic Cath: ?The priority of the diagnostic procedure was Elective. The indication for ?the blood and plasma laboratory assistant visit is suspected CAD. Chest pain symptom assessment was: ?Typical Angina. ? Technique: ?A 6 SLFr sheath was inserted in the right radial artery utilizing the ?Seldinger technique. The left coronary artery was injected utilizing a ?5Fr ROBER RADIAL catheter. A 5Fr ROBER RADIAL catheter was used to inject ?the right coronary artery. Left ventricular pressure was performed with a ?5Fr ROBER RADIAL catheter. 6,000 units of heparin were administered. A ?total of 100cc of Omnipaque were opened, 60cc of Omnipaque were ?administered and 40cc of Omnipaque were wasted. Radiation: Fluoro time ?was 4.2 minutes, dose area product was 37,800 mGYcm2 and air kerma was ?368 mGY. See the case log for additional details. ?The patient received the following medications prior to and during the ?procedure: ? Unfractionated Heparin. ? Hemodynamics: ?Left Heart Pressures ? Resting: ? Syst Diast ? EDP ?a ?v ? m ?Ao 123 ?? 51 ?80 ?LV 133 ? 20 ? Coronary Angiography: ?Dominance: Right ?Left Main ? There was mild diffuse (<=25% stenosis) disease of the entire vessel ? segment of the left main artery. ?Left Anterior Descending ? There was mild diffuse (<=25% stenosis) disease of the entire vessel ? segment of the left anterior descending artery (LAD). ??The proximal ? segment of the LAD had a single discrete 60% stenosis. ? Mid LAD divides into two branches giving appearance of dual LAD ? system. ?Left Circumflex ? There was mild diffuse (<=25% stenosis) disease of the entire vessel ? segment of the left circumflex artery (LCX). ??The mid segment of the ? LCX had a single discrete 70% stenosis. ? There was a 55% stenosis of the ostial segment of the first obtuse ? marginal branch (OM1) of the LCX. ?Right Coronary Artery ? There was mild diffuse (<=25% stenosis) disease of the entire vessel ? segment of the right coronary artery (RCA). ??The proximal segment of ? the RCA had a calcified single discrete total occlusion. ??Distal ? flow was via collaterals from the LAD and collaterals from the LCX. ? Vascular Access: ?Vascular Access Management: ? Mechanical Compression of the right radial artery access site was ? performed. ? Conclusions: ?* Three vessel coronary artery disease (LAD, LCX and RCA) ?* Elevated left ventricular end diastolic pressure ? Complications/Events: ?The patient had no complications during these procedures. ? Recommendations: ?Based upon the results of this procedure, it was recommended that ?coronary artery bypass surgery be considered. ?The attending physician was present for the entire procedure. ?Dr. Sam Bey M.D. was present during the moderate sedation ?intraservice time as documented by the sedation nurse. ??Case time = 00:12. ?Dr. Sam Bey M.D. performed the coronary angiography and left heart ?catheterization. ? Sam Bey M.D. ? Electronically Signed by: Sam Bey M.D. ? Report Finalized: 02/25/2019 ??17:46 ? Report Last Ammended: 05/04/2019 ??10:57 ? Procedure Note Sam Bey MD - 05/04/2019 [facility] Cardiac Catheterization/Intervention Report Patient Name: ABIMBOLA JONES Procedure Date: 02/24/2019 A #: [id number] Primary Physician: Sam Bey Case #: [id number] File Name: [id number] Catheterization Order Number: [id number] [facility] FinalReport [place], [place] Patient Name: ABIMBOLA JONES ID#:[id number] :1945 Procedure Date: February 24, 2019 Case #: [id number] Room: 6 Case Physician: Sam Bey M.D. Start: 10:57 Fellow: Dina Huerta M.D. Admission:02/24/2019 Discharge:02/24/2019 Referring Physician: Will Magallon M.D. Procedures: * Coronary Angiography * Left Heart Catheterization History ABIMBOLA JONES is a 73 year old woman. She has hypertension and afamily history of coronary artery disease. The patient's smoking status is Never. She has hypercholesterolemia managed with lipid therapy. The patient has diabetes controlled by diet. She has a cerebral vascular accident. The patient also has a history of cancer. Prior to the initiation of this procedure, the patient was designated as ASAClass III. The [facility] clinical frailty scale is 4: Vulnerable. Diagnostic Tests: Prior Coronary Angiography: LV ejection fraction within 6 months is 60%. Electrocardiography: EKG was assessed by ECG. EKG was Normal. Stress or Imaging Studies: A stress test with SPECT imaging was performed on 02/12/2019and was Positive with Intermediate results. Medications Prior to Procedure: ASA, Beta Tracie, Calcium Channel Blocking Agent and Statin. Indications for Diagnostic Cath: The priority of the diagnostic procedure was Elective. Theindication for the blood and plasma laboratory assistant visit is suspected CAD. Chest pain symptom assessmentwas: Typical Angina. Technique: A 6 SLFr sheath was inserted in the right radial artery utilizingthe Seldinger technique. The left coronary artery was injected utilizinga 5Fr ROBER RADIAL catheter. A 5Fr ROBER RADIAL catheter was used toinject the right coronary artery. Left ventricular pressure was performedwith a 5Fr ROBER RADIAL catheter. 6,000 units of heparin were administered.A total of 100cc of Omnipaque were opened, 60cc of Omnipaque were administered and 40cc of Omnipaque were wasted. Radiation: Fluorotime was 4.2 minutes, dose area product was 37,800 mGYcm2 and air kermawas 368 mGY. See the case log for additional details. The patient received the following medications prior to and duringthe procedure: Unfractionated Heparin. Hemodynamics: Left Heart Pressures Resting: Syst Diast EDP a v m Ao 123 51 80 LV 133 20 Coronary Angiography: Dominance: Right Left Main There was mild diffuse (<=25% stenosis) disease of the entirevessel segment of the left main artery. Left Anterior Descending There was mild diffuse (<=25% stenosis) disease of the entirevessel segment of the left anterior descending artery (LAD). Theproximal segment of the LAD had a single discrete 60% stenosis. Mid LAD divides into two branches giving appearance of dual LAD system. Left Circumflex There was mild diffuse (<=25% stenosis) disease of the entirevessel segment of the left circumflex artery (LCX). The mid segmentof the LCX had a single discrete 70% stenosis. There was a 55% stenosis of the ostial segment of the firstobtuse marginal branch (OM1) of the LCX. Right Coronary Artery There was mild diffuse (<=25% stenosis) disease of the entirevessel segment of the right coronary artery (RCA). The proximalsegment of the RCA had a calcified single discrete total occlusion.Distal flow was via collaterals from the LAD and collaterals from theLCX. Vascular Access: Vascular Access Management: Mechanical Compression of the right radial artery access sitewas performed. Conclusions: * Three vessel coronary artery disease (LAD, LCX and RCA) * Elevated left ventricular end diastolic pressure Complications/Events: The patient had no complications during these procedures. Recommendations: Based upon the results of this procedure, it was recommended that coronary artery bypass surgery be considered. The attending physician was present for the entire procedure. Dr. Sam Bey M.D. was present during the moderate sedation intraservice time as documented by the sedation nurse. Case time =00:12. Dr. Sam Bey M.D. performed the coronary angiography and leftheart catheterization. Sam Bey M.D. Electronically Signed by: Sam Bey M.D. Report Finalized: 02/25/2019 17:46 Report Last Ammended: 05/04/2019 10:57 Sam Bey MD CARDIAC CATH ORDERAB LES documented in this encounter Visit Diagnoses Diagnosis Abnormal stress test Other nonspecific abnormal cardiovascular system function study Abnormal stress test Other nonspecific abnormal cardiovascular system function study documented in this encounter Care Teams Paper Goods Machine Operator Relationship Specialty Start Date End Date Angie Alonzo MD [facility] [address] [place] [address] PCP - General Family Medicine 06/25/17 documented as of this encounter
--- OUTSIDE RECORDS SUMMARY | 2024-03-11 15:16 | XMS_ITS | Encounter Summary ---
Author Organization [facility] [place] [address] Care Team Providers Care Computer Systems Hardware Analyst Name Role Phone Angie Alonzo MD Primary Care Provider [phone] Reason for Visit * Reason Comments Follow Up Surgery Encounter Details Date Type Department Care Team (Late st Contact Info) Description 01/14/2018 10:30 AM EDT Office [place] [address] Rajwinder Moore DIRECTOR OF CAMPUS RECREATION [facility] [place] [address] History of breast cancer Social History Tobacco Use Types Packs/Day Years Used Date Smoking Tobacco: Never Smokeless Tobacco: Never Sex and Gender Information Value Date Recorded Sex Assigned at Not on file Gender Identity Not on file Sexual Orientation Not on file documented as of this encounter Progress Notes * Rajwinder Moore APRN - 01/14/2018 10:30 AM EDT Abimbola M Alesia returns for surgical follow up. 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 Negative margins. Closest invasive 6mm cranial. Closest DCIS 0.5mm cranial 0 of 1 LNs positive cells,, ER+/MA+, Vhr1Iuw-, pTNM: ---(m)T1b N0 (AJCC, 7th edition, 2010) She completed XRT and is on tamoxifen, followed by Dr Damico. Overall Grade: ?? Grade 1 (scores of 3, 4 or 5) ?Tumor Size: ?? 6.6 Millimeters (mm) ?Tumor Focality: ?? Single focus of invasive carcinoma ?Ductal Carcinoma In Situ (DCIS): ?DCIS is present in specimen ? Size (Extent) of DCIS: ?? 25 Millimeters (mm) ? Architectural Patterns: ?? Comedo, Papillary, Solid, DCIS is present mixed ?with and way from the invasive tumor. There is a range of DCIS, from ?low grade DCIS without necrosis (nearer to invasive tumor), to high ?grade DCIS with comedonecrosis (in tissue slice 1, way from the invasive ??tumor) - yellow margin, 4.5mm away. ? Distance from Cranial Margin: ?? 6.5 Millimeters (mm) ? Distance from Other Specified Margin: ?From other RM > 10 Millimeters (mm) ?DCIS Margins: ?? Uninvolved by DCIS ? Distance of DCIS to Cranial Margin: ?0.5 Millimeters (mm) ? Distance of DCIS to Caudal Margin: ?8 Millimeters (mm) ? Distance of DCIS to Lateral Margin: ?4.5 Millimeters (mm) ?Primary Tumor (Invasive Carcinoma) (pT): ?pT1b ?Regional Lymph Nodes (pN) She has done very well s/p surgery. Some discomfort in her breast on occasion. Tolerating tamoxifen. PE: Abimbola has a well-healed incision on the left inner breast with minimal post-op and XRT changes at thesite of partial mastectomy. Breasts without masses. Axilla has a well healed incision and is otherwise negative. Arm has full range of motion without edema. Comprehensive Breast Program Surgery Follow Up Note Range of motion of surgical arm complete Lymphedema present No Cosmesis-surgeon reported Cosmesis-patient reported Excellent Excellent Local or regional recurrence No Contralateral cancer present No Distant recurrence present No Date of last follow up 01/14/18 Mammogram today is cat 12 Imp: Abimbola Dumas is a 72 y.o. female s/p WLE for left breast cancer IDC and DCIS ER+MA+HER2 neg s/p PM and oncolplasty and SLNB . Stage T1bN0. Overall doing well. Margins negative. DCIS was not contiguous. Closest margin was low grade, 0.5mm. Plan: RTC in one year with a bilateral mammogram. Scheduled med onc follow up. She agrees. documented in this encounter Plan of Treatment Not on file documented as of this encounter Results * Mammo Screening Cad and Yamil Bilateral (01/20/2019 9:38 AM EDT) Anatomical Region [...] report, please contact the number below. ? Rajwinder Moore APRN IMG MAMMO ORDERA BLES documented in this encounter Visit Diagnoses Diagnosis History of breast cancer Personal history of malignant neoplasm of breast History of breast cancer Personal history of malignant neoplasm of breast documented in this encounter Care Teams Computer Systems Hardware Analyst Relationship Specialty Start Date End Date Angie Alonzo MD [facility] [address] [place] [address] PCP - General Family Medicine 06/25/17 documented as of this encounter
--- OUTSIDE RECORDS SUMMARY | 2024-03-11 15:16 | XMS_ITS | Encounter Summary ---
Author Organization [facility] Address [facility] [place] [address] Care Team Providers Care Manager Of Software Name Role Phone Angie Alonzo MD Primary Care Provider Encounter Details Date Type Department Care Team (Late st Contact Info) Description 09/16/2018 Orders Only [place]ology [place] [address] Kalyan Damico MD [facility] DR HEMATOLOGY/[place] [address] Malignant neoplasm of upper-inner quadrant of left [...] positive documented in this encounter Care Teams Manager Of Software Relationship Specialty Start Date End Date Angie Alonzo MD [address] [place] [address] PCP - General Family Medicine 06/25/17 documented as of this encounter
--- OUTSIDE RECORDS SUMMARY | 2024-03-11 15:16 | XMS_ITS | Encounter Summary ---
Author Organization [facility] Address [facility] [place] [address] Care Team Providers Care Cheesemaker Helper Name Role Phone Angie Alonzo MD Primary Care Provider [phone] Encounter Details Date Type Department Care Team (Latest Contact Info) Description 02/24/2019 9:22 AM EDT - 02/24/2019 2:42 PM EDT Hospital Encounter Same Day Program at [place] [phone] Sam Bey MD [facility] [place] [address] Abnormal stress test Discharge Disposition: Still a Patient Social History Tobacco Use Types Packs/Day Years [...] Sign Reading Time Taken Comments Blood Pressure 151/67 02/24/2019 2:10 PM EDT Pulse 70 02/24/2019 1:30 PM EDT Temperature 36.8 ??C (98.2 ??F) 02/24/2019 1:44 PM ED T Respiratory Rate 16 02/24/2019 2:00 PM EDT Oxygen Saturation 94% 02/24/2019 2:10 PM EDT Inhaled Oxygen Concentration - - [...] by your doctor, do not take any [id number] medicinesor herbal preparations without first discussing this with your doctor or pharmacist. There is the possibility of side effects and interactions when these are combined. Follow Up Care Who to call with questions or problems If there are any questions or problems that you think might be related to your cardiac cath or angioplasty, contact the fabrication supervisor senior information security engineer by calling [facility] at . documented in this encounter [...] (FREESTYLE) Kit 1 each [place] [facility] [place]Non-Drug; Combo Route) route as needed for Other. [...] Gluc: 153 Creat: 0.63 K: 3.6 H/H: 13.1/7 Pltsa: 225 documented in this encounter Miscellaneous Notes * Brief Op Note - Sam Bey MD - 02/24/2019 12:02 PM EDT Preliminary Cardiac Catheterization Procedure Note: Patient Name: Abimbola Dumas : [id number] MR#: [id number] Case Date: 02/24/2019 Wind Projects Supervisor: Surgeon(s) and Role: * Sam Bey MD [...] 12 Lead (02/24/2019 9:58 AM EDT) Pathologist [facility] Ventricular rate 64 BPM MUSE SYSTEM Atrial Rate 64 BPM MUSE SYSTEM P-R Interval 174 ms MUSE SYSTEM QRS Duration 94 ms MUSE SYSTEM Q-T Interval 418 ms MUSE SYSTEM QTC Calculated (Bezet) 431 ms MUSE SYSTEM Calculated P [place] 3 degrees MUSE SYSTEM Calculated R [place] -17 degrees MUSE SYSTEM Calculated T [place] -4 degrees MUSE SYSTEM INTERPRETATION Normal sinus rhythm Normal ECG No previous ECGs available Confirmed by MD Su, Vikram ([id number]) on 02/24/2019 11:19:55 AM MUSE SYSTEM 02/24/2019 9:58 AM EDT 02/24/2019 11:19 AM EDT Sam Bey MD ECG ORDERABLES MUSE SYSTEM * POCT Glucose (02/24/2019 9:45 AM EDT) Pathologist [facility] Glucose, POC 121 65 - 199 mg/dL [facility] Comment: Supplemental ranges: <140 mg/dL before meals <180 mg/dL all other times of the day Blood specimen (specimen) 02/24/2019 9:45 AM EDT 02/24/2019 9:45 AM EDT Sam Bey MD POINT OF CARE TEST [place] [address] documented in this encounter Visit Diagnoses Diagnosis Abnormal stress test Other nonspecific abnormal cardiovascular system function study documented in this encounter Administered Medications Inactive Administered Medications - up to 3 most recent administrations Medication Order MAR Action Action Date Dose Rate Site sodium chloride 0.9% infusion 50 mL/hr, Intravenous, [...] intracoronary dilution (CANCELED) ONCE PRN, Starting on Sat02/24/19 at 1058, Until Sat02/24/19 at 1451, Cath (Intra-Procedure), Routine 1058 (Given - Provid er: Sam Bey MD) documented in this encounter Care Teams Cheesemaker Helper Relationship Specialty Start Date End Date Angie Alonzo MD [address] [place] [address] PCP - General Family Medicine 06/25/17 documented as of this encounter
--- OUTSIDE RECORDS SUMMARY | 2024-03-11 15:16 | XMS_ITS | Encounter Summary ---
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 [...] Comments XR CHEST PA AND LATERAL Routine 02/24/2019 4:13 PM EDT Coronary artery disease of [place]bins heart with stable angina pectoris, unspecified vessel [...] please contact the number below. ? Narrative 02/24/2019 5:06 PM EDT EXAMINATION: XR [...] below. 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
--- OUTSIDE RECORDS SUMMARY | 2024-03-11 15:16 | XMS_ITS | Encounter Summary ---
Author Organization [facility] [place] [address] Care Team Providers Care Skates Operator Name Role Phone Angie Alonzo MD Primary Care Provider [phone] Encounter Details Date Type Department Care Team (Late st Contact Info) Description 12/17/2017 External [place] [address] Provider, Scanning Social History Tobacco Use Types [...] on filedocumented in this encounter Care Teams Skates Operator Relationship Specialty Start Date End Date Angie Alonzo MD [address] [place] [address] PCP - General Family Medicine 06/25/17 documented as of this encounter
--- OUTSIDE RECORDS SUMMARY | 2024-03-11 15:16 | XMS_ITS | Encounter Summary ---
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 Name Role Phone Angie Alonzo MD Primary Care Provider [phone] Reason for Visit * Auth/Cert Specialty Diagnoses [...] Expiration Date Visits Re quested Visits Authorized [id number] 1 1 Encounter Details Date Type Department Care Team (Late st Contact Info) Description 03/05/2019 7:30 AM EDT - 03/05/2019 11:16 AM EDT [place] [id number] Ryan Lynch MD @CABG, USING ARTERIAL GRAFT;SINGLE ARTERIAL GRAFT (WRVU 33.75) Social History Tobacco Use Types Packs/Day Years [...] Sign Reading Time Taken Comments Blood Pressure 143/72 03/05/2019 6:49 AM EDT Pulse 72 03/05/2019 6:45 AM EDT Temperature 37.1 ??C (98.8 ??F) 03/05/2019 6:45 AM ED T Respiratory Rate 16 03/05/2019 6:45 AM EDT Oxygen Saturation 97% 03/05/2019 6:45 AM EDT Inhaled Oxygen Concentration - - Weight 95.9 kg (211 lb 6.4 oz) 03/05/2019 6:45 A M EDT Height 167.6 cm (5' 6) 03/05/2019 6:45 AM EDT Body Mass Index 35.19 03/05/2019 6:45 AM EDT documented in this encounter Discharge Summaries * Sabrina Sofia PA - 03/09/2019 9:08 AM EDT Inpatient - Discharge Summary Patient Name: Abimbola Dumas Patient Age: 73 y.o. Birthdate: 1945 Language: Kinyarwanda Race: White Ethnicity: Not nor Admit Date: [...] with CXR, EKG. Inpatient Provider Contact Information: [facility] [phone] FAX [phone] Discharge Diagnoses (Hospital Problems) Primary Diagnoses: CAD [...] 8.78) performed by Ashley Farooq MD at [facility] MAIN OR ??? PRO BX/REMV, LYMPH NODE, DEEP AXILL Left 07/04/2017 BIOPSY OR EXCISION OF LYMPH NODE(S), OPEN, DEEP AXILLARY NODE(S) (WRVU 6.43) performed by Ashley Farooq MD at [facility] MAIN OR ??? PRO CABG, ARTERIAL, SINGLE N/A 03/05/2019 @CABG, USING ARTERIAL GRAFT;SINGLE ARTERIAL GRAFT (WRVU 33.75) performed by Ryan Lynch MD at [facility] OR ??? PRO CABG, ARTERY-VEIN, THREE N/A 03/05/2019 @CABG; 3 VENOUS GRAFTS & ARTERIAL GRAFT (WRVU 10.49) performed by Ryan Lynch MD at [facility] OR ??? PRO ENDOSCOPY W/VIDEO-ASST VEIN HARVEST, CABG N/A 03/05/2019 ENDOSCOPIC HARVEST VEIN(S) FOR CABG (WRVU 0.31) performed by Ryan Lynch MD at [facility] MAIN OR ??? PRO INTRAOP SENTINEL LYMPH ID W/DYE INJECTION Left 07/04/2017 INTRAOPERATIVE ID (MAPPING) SENTINEL LYMPH NODE,INCLUDES INJECTION (WRVU 2.5) performed by Ashley Farooq MD at [facility] MAIN OR ??? PRO MASTECTOMY, PARTIAL Left 07/04/2017 MASTECTOMY PARTIAL (WRVU 10.13) performed by Ashley Farooq MD at [facility] MAIN OR Prior To Admission Medications Medications Prior [...] blood-glucose meter (FREESTYLE) Kit 1 each by [facility].(Non-Drug; Combo Route) route as needed for Other. Taking at Unknown time Updated Allergies/ADRs: Allergies Allergen Reactions ??? Penicillins History of Presentation: Abimbola Dumas??is a 73 y.o.??year old female??who was seeking clearance for a hip replacement. ??Due to her history she was given a stress test that was postitive. Major Procedures/Operations: 03/05/2019: CABGx4 Hospital Course: s/p CABGx4 Abimbola Dumas was admitted to [facility] on 03/05/2019 via the Same Day Program.She [...] Ryan Lynch and/or the Cardiac Surgery Physician Manager Income Tax Team may be reached at . Weight: [...] Dr. Ryan Casas. You may use a [place] Track or treadmill but avoid any pulling [...] friends, go to a movie, go to mosque, etc. Heavy activities: No hunting, skiing, jogging, [...] should resume a low fat, low cholesterol, [place] Heart [employer] Diet/Diabetic diet. Driving: No driving [...] the outpatient Phase 2 Cardiac Rehabilitation at [facility] . The patient agrees to a referral to this program. The referral will be sent at discharge and the patient should be contacted by the Program within 1- 2 weeks from discharge. ?? Of note, this patient will be staying with her son in [place], [place] for a 2-3 weeks at discharge before returning to home. Future Appointments and Orders Future Appointments and Orders Future Appointments Provider Department Dept Phone 04/17/2019 9:00 AM Nimco Mohan MD Endocrinology at [facility] Arrive at: Visual Educator Area [phone] 04/17/2019 9:00 AM ULTRASOUND, ENDO/RHEUM Endocrinology at [facility] Arrive at: Visual Educator Area [phone] Future Orders Complete By Expires XR Chest PA & Lateral (Generic) [[id number] Custom] 04/08/2019 (Approximate) 10/08/2019 Process Instructions: Scheduling Instructions: Questions: Where will study be performed?: [facility] Radiology Portable exam?: Reason for exam and clinical history: s/p CABGx4 Other pertinent information: Stat read required?: Date of injury if applicable: Requested Time: EKG 12 Lead [70156 CPT(R)] As directed Process Instructions: Scheduling Instructions: Questions: Which location will this be performed?: [place] Is a rhythm strip needed?: No Referral to Cardiac Rehab [OFG473 Custom] As directed Process Instructions: If no progress note charted, please enter Clinical details in comments. Scheduling Instructions: Questions: My question or request is: s/p CABG. Cardiac rehab at [facility] Referral to Home Health - at DISCHARGE [YXM9311 CPT(R)] As directed Process Instructions: Scheduling Instructions: Comments: DOCUMENTATION FOR VNA SERVICES (INCLUDING THOSE PATIENTS WITH MEDICARE COVERAGE REQUIRING HOME VNA SERVICES AND/OR HOSPICE SERVICES) PATIENT'S LOCATION: Abimbola Dumas [address] [facility] [address] (home) No relevant phone numbers on file. [address] [place] [address] Log Tumbler's Name: patient and son. In discussion with the attending physician, it is certified that this patient is under their care and that they, or a Nurse Practitioner, or Physician Manager Income Tax who is working directly with them, hada [...] for services as follows: HOME HEALTH AGENCY: [facility] PHONE: [phone] FAX: [phone] RN orders: Cardiopulmonary assessment, incisional assessment, assess [...] issues please call the Cardiac SurgeryOffice at [phone] FOR MEDICARE ONLY: (please delete this section [...] noted. Questions: Agency name and contact information: [facility] Patient location post discharge: home What services are requested: Registered Nurse Physical Therapy Occupational Therapy Start date: Responsible MD post discharge contact info: pcp Arrangements for VNA/home care: As above. VN RN OR PCP TO PLEASE REMOVE CHEST TUBE SUTURES ON OR AFTER (03/15/19) Signed: DUDLEY Woodard [facility] [phone] FAX [phone] Date: 03/09/2019 CC: MD Sherita Garcia Anil K, MD [address] [place] [phone] documented in this encounter Discharge Instructions * [...] Ryan Lynch and/or the Cardiac Surgery Physician Manager Income Tax Team may be reached at . Weight: [...] Dr. Ryan Casas. You may use a [place] Track or treadmill but avoid any pulling [...] friends, go to a movie, go to mosque, etc. Heavy activities: No hunting, skiing, jogging, [...] should resume a low fat, low cholesterol, [place] [employer] Diet/Diabetic diet. Driving: No driving [...] appointment with your Cardiac Surgeon, Dr. Ryan yLnch, in ~4 weeks with chest x-ray and EKG before your appointment. Cardiac Rehabilitation: Abimbola Dumas was seen today regarding participation in the outpatient Phase 2 Cardiac Rehabilitation at [facility] . The patient agrees to a referral to this program. The referral will be sent at discharge and the patient should be contacted by the Program within 1- 2 weeks from discharge. ?? Of note, this patient will be staying with her son in [place], [place] for a 2-3 weeks at discharge [...] blood-glucose meter (FREESTYLE) Kit 1 each by [facility].(Non-Drug; Combo Route) route as needed for Other. [...] 3:15 PM EDT D/c summary faxed to [facility]. Pt went home with family. * Bethany Servin RN - 03/09/2019 2:26 PM EDT The patient/member services representative has been provided a list of Home Health Agencies/DME vendors which servetheir preferred geographic area. A letter describing our affiliations was reviewed with them and they were educated about their right to choose where referrals are placed. Patient requests referral to [facility] PHONE: [phone] FAX: [phone] Expected date of discharge: 03/09/2019 Referral routed to the Manager Regulatory for matching with agency/vendor and to provide [...] has adequate understanding of needs to instruct sonelio to best support her own care. Feel [...] plan as stated. Time IN / OUT: 2783-5496 Total Evaluation Minutes, Physical Therapy: 32(TEF, LILY) Tania Romero, SPT Physical Therapy Inpatient Rehabilitation Department * Kana Odessamichelle Case - 03/08/2019 2:03 PM EDT Nutrition Services - Education Note Abimbola Dumas : 1945 AGE: 73 y.o. Patient Active Problem List Diagnosis Date Noted ??? *Hospital-S/P CABG (coronary artery bypass graft) 03/05/2019 ??? Hospital-CAD (coronary artery disease) 02/25/2019 ??? Malignant neoplasm of upper-inner quadrant of left breast in female, estrogen receptor cemttxij09/28/2017 Reason for Nutrition Intervention: Diagnosis Diet Order: [facility] Appetite: Improving appetite per patient Food allergies: [...] consulted in the interim. SELENE Aguilar Pager #[phone] * Lexii Thomas, CASING MATERIAL WEIGHER - 03/08/2019 10:15 AM EDT Cardiac Surgery Progress Note: ID: [id number] 73 yo F 3 Days Post-Op cabg [...] DW Attending surgeon on rounds Dr. Renee THOMAS, LINDSEY Cardiac surgery p.[phone] * Santos Rao MD - 03/07/2019 7:57 AM EDT Cardiac Surgery Progress Note: ID: [id number] 73 yo F pod 1 sp cabg [...] Gas) No results found for: PHART, PO2ART, [id number] Assessment/Plan: 73 y.o. female 2 Days Post-Op s/p cabg x 4, pathway. D/c carl D/c TPW Cont metop/lasix Given K+ repletion POD3 labs/CXR ordered for tomorrow Neuro:tylenol, oxy prn CV:metop 12.5'', lipitor 40' Resp:nc, wean as able, db,is GI:adat, protonix :carl d/c today Renal:lasix 20iv'', k prn ID:no issues Heme:asa Endo:ssi Dispo:transfer DW Attending surgeon on rounds Dr. Renee Rao MD Cardiac surgery p.[phone] * Jose Levi PA - 03/06/2019 9:01 AM EDT Cardiac Surgery Progress Note: ID: [id number] 73 yo F pod 1 sp cabg [...] In: 3755.7 [I.V.:2610.7; Blood:1043; IV Piggyback:102] Out: 3274 [Urine:2024; Other:750; Blood:500] No intake/output data recorded. [...] well perfused Incisions: Dressing cd Tubes/Lines/Drains: meseret hi pw ct x 2, rij LABS: Recent Labs 03/06/19 0315 03/05/19 1610 03/05/19 1104 03/05/19 1038 WBC 12.5* -- 11.2* -- HGB 9.9* 10.9* 7.6* 7.3* HCT 29.7* -- 22.8* 22.5* PLATELET 198 -- 153 185 PT -- -- 18.0* -- INR -- -- 1.6 -- PTT -- -- 32 -- FIBRINOGEN -- -- 118* 120* Recent Labs 03/06/19 0315 03/05/19 2115 03/05/19 1610 NA 138 -- -- [...] Resp:nc, wean as able, db,is GI:adat, protonix :meseret Renal:lasix 20iv'', k prn ID:no issues Heme:asa Endo:ssi Dispo:transfer * Joana Ochoa RT - 03/05/2019 4:54 PM EDT AMV [...] home - home unit in her room. RT Margoth documented in this encounter H&P Notes * [...] 8.78) performed by Ashley Farooq MD at [facility] OR ??? PRO BX/REMV, LYMPH NODE, DEEP AXILL Left 07/04/2017 ?? BIOPSY OR EXCISION OF LYMPH NODE(S), OPEN, DEEP AXILLARY NODE(S) (WRVU 6.43) performed by Ashley Farooq MD at [facility] OR ??? PRO INTRAOP SENTINEL LYMPH ID W/DYE INJECTION Left 07/04/2017 ?? INTRAOPERATIVE ID (MAPPING) SENTINEL LYMPH NODE,INCLUDES INJECTION (WRVU 2.5) performed by Aslhey Farooq MD at [facility] OR ??? PRO MASTECTOMY, PARTIAL Left 07/04/2017 ?? MASTECTOMY PARTIAL (WRVU 10.13) performed by Ashley Farooq MD at [facility] OR ? Family History: Family??History Family History [...] Gets together: Not on file ? Attends confucianist service: Not on file ? Active member [...] 8.78) performed by Ashley Farooq MD at [facility] MAIN OR ??? PRO BX/REMV, LYMPH NODE, DEEP AXILL Left 07/04/2017 ?? BIOPSY OR EXCISION OF LYMPH NODE(S), OPEN, DEEP AXILLARY NODE(S) (WRVU 6.43) performed by Ashley Farooq MD at [facility] MAIN OR ??? PRO INTRAOP SENTINEL LYMPH ID W/DYE INJECTION Left 07/04/2017 ?? INTRAOPERATIVE ID (MAPPING) SENTINEL LYMPH NODE,INCLUDES INJECTION (WRVU 2.5) performed by Ashley Farooq MD at [facility] OR ??? PRO MASTECTOMY, PARTIAL Left 07/04/2017 ?? MASTECTOMY PARTIAL (WRVU 10.13) performed by Ashley Farooq MD at [facility] MAIN OR ? Family History: Family??History Family History [...] Gets together: Not on file ? Attends confucianist service: Not on file ? Active member [...] Harris RN - 03/09/2019 10:21 AM EDT [facility] CARDIAC REH[facility]ILITATION Abimbola Dumas was seen today regarding participation in the outpatient Phase 2 Cardiac Rehabilitation at [facility] . The patient agrees to a referral to this program. The referral will be sent at discharge and the patient should be contacted by the Program within 1- 2 weeks from discharge. Of note, this patient will be staying with her son in [place], [place] for a 2-3 weeks at discharge before returning to home. * Plan of Care - Buddy Barr, PT - 03/06/2019 4:45 PM EDT Physical [...] 8.78) performed by Ashley Farooq MD at [facility] MAIN OR ??? PRO BX/REMV, LYMPH NODE, DEEP AXILL Left 07/04/2017 BIOPSY OR EXCISION OF LYMPH NODE(S), OPEN, DEEP AXILLARY NODE(S) (WRVU 6.43) performed by Ashley Farooq MD at [facility] OR ??? PRO CABG, ARTERIAL, SINGLE N/A 03/05/2019 @CABG, USING ARTERIAL GRAFT;SINGLE ARTERIAL GRAFT (WRVU 33.75) performed by Ryan Lynch MD at [facility] OR ??? PRO CABG, ARTERY-VEIN, THREE N/A 03/05/2019 @CABG; 3 VENOUS GRAFTS & ARTERIAL GRAFT (WRVU 10.49) performed by Ryan Lynch MD at [facility] OR ??? PRO ENDOSCOPY W/VIDEO-ASST VEIN HARVEST, CABG N/A 03/05/2019 ENDOSCOPIC HARVEST VEIN(S) FOR CABG (WRVU 0.31) performed by Ryan Lynch MD at [facility] OR ??? PRO INTRAOP SENTINEL LYMPH ID W/DYE INJECTION Left 07/04/2017 INTRAOPERATIVE ID (MAPPING) SENTINEL LYMPH NODE,INCLUDES INJECTION (WRVU 2.5) performed by Ashley Farooq MD at [facility] OR ??? PRO MASTECTOMY, PARTIAL Left 07/04/2017 MASTECTOMY PARTIAL (WRVU 10.13) performed by Ashley Farooq MD at [facility] OR Social History: Pt lives alone in [...] Pt seen for evaluation today in the [facility]. Pt up in the chair at start of session. Pain: Number Location At rest 08/10 With activity 09/07 sternal Vital Signs: At [...] Evaluation Minutes, Physical Therapy: 25(eval) Time IN/OUT: 3458-6368 BUDDY BARR, PT Pager: [phone] Physical Therapy Inpatient Rehabilitation Department * Initial [...] Insurance: AARP Prescription Coverage: yes Preferred Pharmacy: [place], [place] Primary Care Provider: Angie Alonzo MD [phone] Patient/Caregiver Goals of Treatment: to return home Potential Needs for Transition of Care: Rehab/SNF: may needs since she came in originally for a hip replacement [facility] D[facility]: Cpap of her [...] of care planning. Savage Lobo RN Pager: [phone] * Care Management - Savage Lobo RN - 03/06/2019 2:14 PM EDT The patient/member services representative has been provided a list of Home Health Agencies/DME vendors which servetheir preferred geographic area. A letter describing our affiliations was reviewed with them and they were educated about their right to choose where referrals are placed. Patient requests referral to :: [facility] PHONE: [phone] FAX: [phone] Expected date of discharge: next 2-3 days Referral routed to the Manager Regulatory for matching with agency/vendor and to provide any required information. * Op Note - Ryan Lynch MD - 03/05/2019 1:56 PM EDT 03/05/2019 Abimbola Dumas 1945 [id number] Preoperative Diagnosis: Coronary artery disease Stable Angina Postoperative Diagnosis: Coronary artery diseaseStable Angina Procedure: CABG times 4: SAM to LAD, SVG to om, svg to diag, svg to pda. Endoscopic vein harvest Surgeon: Ryan Lynch M.D. Manager Income Tax: Giancarlo Anesthesia: General endotracheal anesthesia Drains: Two [...] the medial aspect of the knee. The [employer] XB7 system was used to dissect out [...] Operative Note Patient Name: Abimbola Dumas : [id number] MR#: [id number] Case Date: 03/05/2019 Surgeon: Surgeon(s) and Role: * Ryan Lynch MD - Primary * Job Ferraro PA - Physician Manager Income Tax Preoperative diagnosis: cad Postoperative diagnosis: cad Procedure(s) [...] 9 8:32 AM EDT Endoscopy W/Video-Asst Vein [place], Cabg ([id number]) 03/05/2019 7:29 AM EDT Coronary artery disease of [place] heart with stable angina pectoris, unspecified vessel or lesion type Cabg, Artery-Vein, Three ([id number]) 03/05/2019 7:29 AM EDT Coronary artery disease of [place] heart with stable angina pectoris, unspecified vessel or lesion type Cabg, Arterial, Single ([id number]) 03/05/2019 7:29 AM EDT Coronary artery disease of [place] heart with stable angina pectoris, unspecified vessel [...] * POCT Glucose (03/09/2019 11:31 AM EDT) [facility] Glucose, POC 148 65 - 199 mg/dL [facility] Comment: Supplemental ranges: <140 mg/dL before meals <180 mg/dL all other times of the day Blood specimen (specimen) 03/09/2019 11:31 AM EDT 03/09/2019 11:31 AM EDT Ryan Lynch MD POINT OF CARE TEST ORDERABLES [facility] [place] [address] * Potassium (03/09/2019 7:49 AM EDT) Potassium 4.0 3.5 - 5.0 mmol/L [facility] Comment: Please note: ??Patients with [...] Lab Ryan Lynch MD CHEMISTRY ORDERABLE S [facility] [place] [address] * POCT Glucose (03/09/2019 7:32 AM EDT) Glucose, POC 124 65 - 199 mg/dL [facility] Comment: Supplemental ranges: <140 mg/dL before meals <180 mg/dL all other times of the day Blood specimen (specimen) 03/09/2019 7:32 AM EDT 03/09/2019 7:32 AM EDT Ryan Lynch MD POINT OF CARE TEST ORDERABLES Performing Organization Address City/[facility]/ZIP Co de Phone Number [facility] [place] [address] * POCT Glucose (03/08/2019 8:13 PM EDT) Glucose, POC 175 65 - 199 mg/dL [facility] Comment: Supplemental ranges: <140 mg/dL before meals <180 mg/dL all other times of the day Blood specimen (specimen) 03/08/2019 8:13 PM EDT 03/08/2019 8:13 PM EDT Ryan Lynch MD POINT OF CARE TEST ORDERABLES [facility] [place] [address] * POCT Glucose (03/08/2019 4:37 PM EDT) Glucose, POC 115 65 - 199 mg/dL [facility] Comment: Supplemental ranges: <140 mg/dL before meals <180 mg/dL all other times of the day Blood specimen (specimen) 03/08/2019 4:37 PM EDT 03/08/2019 4:37 PM EDT Ryan Lynch MD POINT OF CARE TEST ORDERABLES [facility] [address] [place] [address] * XR Chest PA & Lateral (Generic) [...] please contact the number below. ? Narrative 03/08/2019 3:03 PM EDT EXAMINATION: XR [...] Glucose, POC 170 65 - 199 mg/dL [facility] Comment: Supplemental ranges: <140 mg/dL before meals <180 mg/dL all other times of the day Blood specimen (specimen) 03/08/2019 11:16 AM EDT 03/08/2019 11:16 AM EDT Ryan Lynch MD POINT OF CARE TEST ORDERABLES [facility] [place] [address] * POCT Glucose (03/08/2019 7:28 AM EDT) Glucose, POC 137 65 - 199 mg/dL [facility] Comment: Supplemental ranges: <140 mg/dL before meals <180 mg/dL all other times of the day Blood specimen (specimen) 03/08/2019 7:28 AM EDT 03/08/2019 7:28 AM EDT Ryan Lynch MD POINT OF CARE TEST ORDERABLES [facility] [place] [address] * (ABNORMAL) Differential, Automated (03/08/2019 2:45 AM EDT) Pathologist [facility] Neutrophil % 70.8 % [facility] Neutrophil Absolute 8.88(H) 1.70 - 6.10 x10(3)/mc L [facility] Lymph % 14.5 % [facility] Lymphocytes Abs 1.8 0.9 - 3.2 x10(3)/mc L [facility] Monocyte % 10.5 % [facility] Monocyte Abs 1.3(H) 0.3 - 0.9 x10(3)/mc L [facility] Eos % 3.0 % [facility] Eosinophils Abs 0.4 0.0 - 0.4 x10(3)/mc L [facility] Basophil % 0.6 % [facility] Baso Absolute 0.1 0.0 - 0.1 x10(3)/mc L [facility] Immature Gran % 0.60 % [facility] Comment: Immature granulocytes(IG's)percentage and absolute count will include metamyelocytes, myelocytes, and promyelocytes. Blood smears from CBCs yielding IG's will be scanned manually for concordance. If this scan disagrees with the automated IG or if promyelocytes are noted, a manual differential will be performed. Immature Gran Absolute 0.07(H) 0.00 - 0.04 x10(3)/ L [facility] Blood specimen (specimen) 03/08/2019 2:45 AM EDT 03/08/2019 2:51 AM EDT Narrative Resulting Agency Comment Spec In Lab Jose BUCKNER HEMATOLOGY ORDERABLE S [facility] [place] [address] * (ABNORMAL) Hemogram (03/08/2019 2:45 AM EDT) White Blood Cell 12.6(H) 4.0 - 9.5 x10(3)/[facility] Red Blood Cell 3.18(L) 4.00 - 5.21 x10(6)/[facility] Hemoglobin 9.9(L) 11.7 - 15.5 gm/dL [facility] Hematocrit 29.3(L) 35.7 - 45.8 % [facility] Mean Cell Volume 92.1 82.6 - 94.4 fL [facility] Mean Cell Hemoglobin 31.1 27.1 - 32.0 pg [facility] Mean Cell Hemoglobin Concentration 33.8 31.7 - 35.0 gm/dL [facility] Platelet 203 145 - 357 x10(3)/[facility] RDW Standard Deviation 48.7(H) 37.0 - 46.0 [facility] RDW coefficient of variation 14.2(H) 11.5 - 14.1 % [facility] Mean Platelet Volume 8.8 7.6 - 12.9 fL [facility] NRBC% auto 0.0 % [facility] NRBC Absolute 0.000 0.000 - 0.000 x10(3)/ L [facility] Blood specimen (specimen) 03/08/2019 2:45 AM EDT 03/08/2019 2:51 AM EDT Narrative Resulting Agency Comment Spec In Lab Jose BUCKNER HEMATOLOGY ORDERABLE S [facility] [place] [address] * (ABNORMAL) Basic Metabolic Panel (non-fasting) (03/08/2019 2:45 AM EDT) Glucose 141 65 - 199 mg/dL [facility] Comment:Diabetes: >=200 mg/d L plus symptoms Blood Urea Nitrogen 24(H) 8 - 18 mg/dL [facility] Creatinine 0.56(L) 0.70 - 1.20 mg/dL [facility] Sodium 137 135 - 145 mmol/L [facility] Potassium 3.7 3.5 - 5.0 mmol/L [facility] Comment: Please note: ??Patients with WBC >100,000 may have falsely elevated Potassium levels. ??For accurate Potassium quantification in these patients send serum separator tube (gold top) for subsequent determinations. ??Contact the Clinical Chemistry Laboratory if there are any questions. Chloride 102 98 - 107 mmol/L [facility] Carbon Dioxide 25 22 - 31 mmol/L [facility] Anion Gap 10 5 - 15 mmol/L [facility] Calcium 7.8(L) 8.5 - 10.5 mg/dL [facility] Est Glomerular Filtration Rate 91 >=60 mL/min/1. 73 m?? [facility] Comment: The eGFR was calculated using the CKD-EPI equation. As with all creatinine based estimates of kidney function, eGFR values calculated with the CKD-EPI equation are not accurate in patients with acute kidney failure, extremes of body mass or the acutely ill. http://[employer]/[facility]MC[facility] eGFR 106 >=60 mL/min/1. 73 m?? [facility] Comment: The eGFR was calculated using the CKD-EPI equation. As with all creatinine based estimates of kidney function, eGFR values calculated with the CKD-EPI equation are not accurate in patients with acute kidney failure, extremes of body mass or the acutely ill. [email or web address] Blood specimen (specimen) 03/08/2019 2:45 AM EDT 03/08/2019 2:51 AM EDT Narrative Resulting Agency Comment Spec In Lab Ryan Lynch MD CHEMISTRY ORDERABLE S Performing Organization Address City/[facility]/ZIP Co de Phone Number [facility] [place] [address] * (ABNORMAL) POCT Glucose (03/07/2019 6:06 PM EDT) Glucose, POC 214(H) 65 - 199 mg/dL [facility] Comment: Supplemental ranges: <140 mg/dL before meals <180 mg/dL all other times of the day Blood specimen (specimen) 03/07/2019 6:06 PM EDT 03/07/2019 6:06 PM EDT Ryan Lynch MD POINT OF CARE TEST ORDERABLES Performing Organization Address [facility] Co de Phone Number [facility] [place] [address] * POCT Glucose (03/07/2019 11:53 AM EDT) Glucose, POC 155 65 - 199 mg/dL [facility] Comment: Supplemental ranges: <140 mg/dL before meals <180 mg/dL all other times of the day Blood specimen (specimen) 03/07/2019 11:53 AM EDT 03/07/2019 11:53 AM EDT Ryan Lynch MD POINT OF CARE TEST ORDERABLES Performing Organization Address [facility] Co de Phone Number [facility] [place] [address] * POCT Glucose (03/07/2019 6:01 AM EDT) Glucose, POC 154 65 - 199 mg/dL [facility] Comment: Supplemental ranges: <140 mg/dL before meals <180 mg/dL all other times of the day Blood specimen (specimen) 03/07/2019 6:01 AM EDT 03/07/2019 6:01 AM EDT Ryan Lynch MD POINT OF CARE TEST ORDERABLES Performing Organization Address [facility]/ZIP Co de Phone Number [facility] [place] [address] * Lavender Tube HOLD (03/07/2019 6:00 AM EDT) Lavender Hold Sample in lab. [facility] Blood specimen (specimen) Venous Draw / Unknown 03/07/2019 6:00 AM EDT 03/07/2019 6:11 AM EDT Jose BUCKNER HEMATOLOGY ORDERABLE S Performing Organization Address [facility] Co de Phone Number [facility] [place] [address] * Potassium (03/07/2019 6:00 AM EDT) Pathologist [facility] [place] Potassium 3.7 3.5 - 5.0 mmol/L [facility] Comment: Please note: ??Patients with [...] MD CHEMISTRY ORDERABLE S Performing Organization Address [facility] Co de Phone Number [facility] [place] [address] * POCT Glucose (03/06/2019 5:38 PM EDT) Glucose, POC 143 65 - 199 mg/dL [facility] Comment: Supplemental ranges: <140 mg/dL before meals <180 mg/dL all other times of the day Blood specimen (specimen) 03/06/2019 5:38 PM EDT 03/06/2019 5:38 PM EDT Ryan Lynch MD POINT OF CARE TEST ORDERABLES Performing Organization Address City/[facility] Co de Phone Number [facility] [place] [address] * Potassium (03/06/2019 12:55 PM EDT) Potassium 3.8 3.5 - 5.0 mmol/L [facility] Comment: Please note: ??Patients with [...] MD CHEMISTRY ORDERABLE S Performing Organization Address [facility] Co de Phone Number [facility] [place] [address] * POCT Glucose (03/06/2019 12:10 PM EDT) Glucose, POC 131 65 - 199 mg/dL [facility] Comment: Supplemental ranges: <140 mg/dL before meals <180 mg/dL all other times of the day Blood specimen (specimen) 03/06/2019 12:10 PM EDT 03/06/2019 12:10 PM EDT Ryan Lynch MD POINT OF CARE TEST ORDERABLES Performing Organization Address City/[facility]/ZIP Co de Phone Number [facility] [place] [address] * POCT Glucose (03/06/2019 10:42 AM EDT) Glucose, POC 143 65 - 199 mg/dL [facility] Comment: Supplemental ranges: <140 mg/dL before meals <180 mg/dL all other times of the day Blood specimen (specimen) 03/06/2019 10:42 AM EDT 03/06/2019 10:42 AM EDT Ryan Lynch MD POINT OF CARE TEST ORDERABLES [facility] [place] [address] * POCT Glucose (03/06/2019 8:18 AM EDT) Glucose, POC 144 65 - 199 mg/dL [facility] Comment: Supplemental ranges: <140 mg/dL before meals <180 mg/dL all other times of the day Blood specimen (specimen) 03/06/2019 8:18 AM EDT 03/06/2019 8:18 AM EDT Ryan Lynch MD POINT OF CARE TEST ORDERABLES Performing Organization Address City/[facility]/ZIP Co de Phone Number [facility] [place] [address] * POCT Glucose (03/06/2019 6:18 AM EDT) Glucose, POC 141 65 - 199 mg/dL [facility] Comment: Supplemental ranges: <140 mg/dL before meals <180 mg/dL all other times of the day Blood specimen (specimen) 03/06/2019 6:18 AM EDT 03/06/2019 6:18 AM EDT Ryan Lynch MD POINT OF CARE TEST ORDERABLES [facility] [place] [address] * POCT Glucose (03/06/2019 4:18 AM EDT) Glucose, POC 158 65 - 199 mg/dL [facility] Comment: Supplemental ranges: <140 mg/dL before meals <180 mg/dL all other times of the day Blood specimen (specimen) 03/06/2019 4:18 AM EDT 03/06/2019 4:18 AM EDT Ryan Lynch MD POINT OF CARE TEST ORDERABLES Performing Organization Address City/State/[facility] Co de Phone Number [facility] [place] [address] * (ABNORMAL) Differential, Automated (03/06/2019 3:15 AM EDT) [facility] Neutrophil % 83.4 % [facility] Neutrophil Absolute 10.39(H) 1.70 - 6.10 x10(3)/mc L [facility] Lymph % 6.2 % [facility] Lymphocytes Abs 0.8(L) 0.9 - 3.2 x10(3)/mc L [facility] Monocyte % 9.7 % [facility] Monocyte Abs 1.2(H) 0.3 - 0.9 x10(3)/mc L [facility] Eos % 0.0 % [facility] Eosinophils Abs 0.0 0.0 - 0.4 x10(3)/mc L [facility] Basophil % 0.2 % [facility] Baso Absolute 0.0 0.0 - 0.1 x10(3)/mc L [facility] Immature Gran % 0.50 % [facility] Comment: Immature granulocytes(IG's)percentage and absolute count will include metamyelocytes, myelocytes, and promyelocytes. Blood smears from CBCs yielding IG's will be scanned manually for concordance. If this scan disagrees with the automated IG or if promyelocytes are noted, a manual differential will be performed. Immature Gran Absolute 0.06(H) 0.00 - 0.04 x10(3)/mc L [facility] Blood specimen (specimen) 03/06/2019 3:15 AM EDT 03/06/2019 3:21 AM EDT Narrative Resulting Agency Comment Spec In Lab Job BUCKNER HEMATOLOGY ORDERABLE S [facility] [place] [address] * (ABNORMAL) Hemogram (03/06/2019 3:15 AM EDT) White Blood Cell 12.5(H) 4.0 - 9.5 x10(3)/[facility] Red Blood Cell 3.21(L) 4.00 - 5.21 x10(6)/[facility] Hemoglobin 9.9(L) 11.7 - 15.5 gm/dL [facility] Hematocrit 29.7(L) 35.7 - 45.8 % [facility] Mean Cell Volume 92.5 82.6 - 94.4 fL [facility] Mean Cell Hemoglobin 30.8 27.1 - 32.0 pg [facility] Mean Cell Hemoglobin Concentration 33.3 31.7 - 35.0 gm/dL [facility] Platelet 198 145 - 357 x10(3)/[facility] RDW Standard Deviation 47.0(H) 37.0 - 46.0 fL [facility] RDW coefficient of variation 14.0 11.5 - 14.1 % [facility] Mean Platelet Volume 8.8 7.6 - 12.9 fL [facility] NRBC% auto 0.0 % [facility] NRBC Absolute 0.000 0.000 - 0.000 x10(3)/[facility] Blood specimen (specimen) 03/06/2019 3:15 AM EDT 03/06/2019 3:21 AM EDT Narrative Resulting Agency Comment Spec In Lab Job BUCKNER HEMATOLOGY ORDERABLE S [facility] [place] [address] * (ABNORMAL) Basic Metabolic Panel (non-fasting) (03/06/2019 3:15 AM EDT) Glucose 165 65 - 199 mg/dL [facility] Comment:Diabetes: >=200 mg/d L plus symptoms Blood Urea Nitrogen 17 8 - 18 mg/dL [facility] Creatinine 0.54(L) 0.70 - 1.20 mg/dL [facility] Sodium 138 135 - 145 mmol/L [facility] Potassium 4.3 3.5 - 5.0 mmol/L [facility] Comment: Please note: ??Patients with WBC >100,000 may have falsely elevated Potassium levels. ??For accurate Potassium quantification in these patients send serum separator tube (gold top) for subsequent determinations. ??Contact the Clinical Chemistry Laboratory if there are any questions. Chloride 106 98 - 107 mmol/L [facility] Carbon Dioxide 22 22 - 31 mmol/L [facility] Anion Gap 10 5 - 15 mmol/L [facility] Calcium 7.2(L) 8.5 - 10.5 mg/dL [facility] Est Glomerular Filtration Rate 92 >=60 mL/min/1. 73 m?? [facility] Comment: The eGFR was calculated using the CKD-EPI equation. As with all creatinine based estimates of kidney function, eGFR values calculated with the CKD-EPI equation are not accurate in patients with acute kidney failure, extremes of body mass or the acutely ill. http://[employer]/[facility] CITYnkf eGFR 107 >=60 mL/min/1. 73 m?? [facility] Comment: The eGFR was calculated using the CKD-EPI equation. As with all creatinine based estimates of kidney function, eGFR values calculated with the CKD-EPI equation are not accurate in patients with acute kidney failure, extremes of body mass or the acutely ill. http://[employer]/[facility] CITY[facility] Blood specimen (specimen) 03/06/2019 3:15 AM EDT 03/06/2019 3:21 AM EDT Narrative Resulting Agency Comment Spec In Lab Ryan Lynch MD CHEMISTRY ORDERABLE S Performing Organization Address [facility] Co de Phone Number [facility] [place] [address] * (ABNORMAL) Troponin (03/06/2019 3:15 AM EDT) Troponin-T 0.55(H) 0.00 - 0.00 ng/mL [facility] Comment: The 99th percentile for Troponin T is less than 0.01 ng/mL, any detectable cTnT concentration using this assay should be considered elevated. According to the third universal definition of myocardial infarction the following criteria with a clinical presentation consistent with acute myocardial ischemia meets the diagnosis for a myocardial infarction (ID). Detection of a rise and/or fall of cTnT, with at least one value greater than the 99th percentile (> or = 0.01) and with at least one of the following ?? Symptoms of ischemia ?? New or presumed new significant DB-[id number] wave (ST-T) changes or new left bundle [...] additional sample may be indicated. Reference: Third [place] Definition of Myocardial Infarction. Journal of the [place] [employer] 2012;60:1581-98 Blood specimen (specimen) 03/06/2019 3:15 AM EDT 03/06/2019 3:21 AM EDT Narrative Resulting Agency Comment Spec In Lab Ryan yLnch MD CHEMISTRY ORDERABLE S Performing Organization Address [facility]/ZIP Co de Phone Number [facility] [place] [address] * POCT Glucose (03/06/2019 3:07 AM EDT) Glucose, POC 150 65 - 199 mg/dL [facility] Comment: Supplemental ranges: <140 mg/dL before meals <180 mg/dL all other times of the day Blood specimen (specimen) 03/06/2019 3:07 AM EDT 03/06/2019 3:07 AM EDT Ryan Lynch MD POINT OF CARE TEST ORDERABLES [facility] [place] [address] * POCT Glucose (03/06/2019 1:48 AM EDT) Glucose, POC 132 65 - 199 mg/dL [facility] Comment: Supplemental ranges: <140 mg/dL before meals <180 mg/dL all other times of the day Blood specimen (specimen) 03/06/2019 1:48 AM EDT 03/06/2019 1:48 AM EDT Ryan Lynch MD POINT OF CARE TEST ORDERABLES Performing Organization Address City/[facility]/ZIP Co de Phone Number [facility] [place] [address] * POCT Glucose (03/06/2019 12:58 AM EDT) Glucose, POC 145 65 - 199 mg/dL [facility] Comment: Supplemental ranges: <140 mg/dL before meals <180 mg/dL all other times of the day Blood specimen (specimen) 03/06/2019 12:58 AM EDT 03/06/2019 12:58 AM EDT Ryan Lynch MD POINT OF CARE TEST ORDERABLES [facility] [place] [address] * POCT Glucose (03/05/2019 11:52 PM EDT) Glucose, POC 183 65 - 199 mg/dL [facility] Comment: Supplemental ranges: <140 mg/dL before meals <180 mg/dL all other times of the day Blood specimen (specimen) 03/05/2019 11:52 PM EDT 03/05/2019 11:52 PM EDT Ryan Lynch MD POINT OF CARE TEST ORDERABLES Performing Organization Address [facility] Co de Phone Number [facility] [place] [address] * POCT Glucose (03/05/2019 10:58 PM EDT) Glucose, POC 150 65 - 199 mg/dL [facility] Comment: Supplemental ranges: <140 mg/dL before meals <180 mg/dL all other times of the day Blood specimen (specimen) 03/05/2019 10:58 PM EDT 03/05/2019 10:58 PM EDT Ryan Lynch MD POINT OF CARE TEST ORDERABLES Performing Organization Address [facility] de Phone Number [facility] [place] [address] * EKG 12 Lead (03/05/2019 10:06 PM EDT) Ventricular rate 76 BPM MUSE SYSTEM Atrial Rate 76 BPM MUSE SYSTEM P-R Interval 180 ms MUSE SYSTEM QRS Duration 92 ms MUSE SYSTEM Q-T Interval 412 ms MUSE SYSTEM QTC Calculated (Bezet) 463 ms MUSE SYSTEM Calculated P [place] 51 degrees MUSE SYSTEM Calculated R [place] -7 degrees MUSE SYSTEM Calculated T [place] 39 degrees MUSE SYSTEM INTERPRETATION Normal sinus rhythm ST elevation consider lateral injury or acute infarct Abnormal ECG When compared with ECG of 24-FEB-2019 09:58, ST elevation now present in Lateral leads Confirmed by MD Yanes Daniel ([id number]) on 03/06/2019 4:58:41 PM MUSE SYSTEM 03/05/2019 10:0 6 PM EDT 03/06/2019 4:58 PM EDT Ryan Lynch MD ECG ORDERABLES Performing Organization Address [facility] Co de Phone Number MUSE SYSTEM * POCT Glucose (03/05/2019 9:18 PM EDT) Glucose, POC 149 65 - 199 mg/dL [facility] Comment: Supplemental ranges: <140 mg/dL before meals <180 mg/dL all other times of the day Blood specimen (specimen) 03/05/2019 9:18 PM EDT 03/05/2019 9:18 PM EDT Ryan Lynch MD POINT OF CARE TEST ORDERABLES Performing Organization Address [facility] de Phone Number [facility] [place] [address] * Potassium (03/05/2019 9:15 PM EDT) Pathologist [facility] [place] Potassium 4.0 3.5 - 5.0 mmol/L [facility] Comment: Please note: ??Patients with [...] MD CHEMISTRY ORDERABLE S Performing Organization Address [facility] Co de Phone Number [facility] [place] [address] * Transfuse 1 unit platelets, apheresis (03/05/2019 8:55 PM EDT) Ryan Lynch MD NURSING TREATMENT O RDERABLES - BLOOD ADMIN * Transfuse 1 unit platelets, apheresis (03/05/2019 8:55 PM EDT) Ryan Lynch MD NURSING TREATMENT O RDERABLES - BLOOD ADMIN * POCT Glucose (03/05/2019 7:26 PM EDT) Glucose, POC 150 65 - 199 mg/dL [facility] Comment: Supplemental ranges: <140 mg/dL before meals <180 mg/dL all other times of the day Blood specimen (specimen) 03/05/2019 7:26 PM EDT 03/05/2019 7:26 PM EDT Ryan Lynch MD POINT OF CARE TEST ORDERABLES [facility] [place] [address] * (ABNORMAL) BLOOD GAS 2 ARTERIAL (03/05/2019 5:42 PM EDT) [facility] pH, Arterial 7.34(L) 7.35 - 7.45 [facility] PCO2, Arterial 38 35 - 45 mmHg [facility] PO2, Arterial 121(H) 85 - 104 mmHg [facility] Bicarbonate, Arterial 20.4 20.0 - 26.0 mmol/L [facility] Base Excess, Arterial -5.3(L) -3.0 - 3.0 mmol/L [facility] Hgb Blood Gas 11.3(L) 11.7 - 15.5 gm/dL [facility] Oxyhemoglobin, Arterial 96.8 94.0 - 97.0 % [facility] Carboxyhemoglob in, Arterial 0.3 % [facility] Comment: Nonsmokers: 0.5-1.5% COHB Smokers: Variable, but usually less than 10% Toxic: 20-30% COHB Lethal: Greater than 60% COHB Methemoglobin, Arterial 0.6 <=1.5 % [facility] Na Whole Blood 138 135 - 145 mmol/L [facility] K Whole Blood 3.7 3.5 - 5.0 mmol/L [facility] Comment: Please note: Patients with WBC >100,000 may have falsely elevated Potassium levels. Contact the Clinical Chemistry Laboratory if there are any questions. ICa Whole Blood 1.07(L) 1.15 - 1.33 mmol/L [facility] Comment: Note: ??Total bilirubin higher than 20 mg/dL may lead to falsely low ionized calcium. CL Whole Blood 108(H) 98 - 107 mmol/L [facility] Gluc Whole Bld 148 65 - 199 mg/dL [facility] Comment:Diabetes: >=200 mg/d L plus symptoms. Lactate WB 2.8(H) 0.5 - 2.2 mmol/L [facility] FIO2 Art 40 % [facility] PF Ratio Art 302 [facility] Blood specimen (specimen) 03/05/2019 5:42 PM EDT 03/05/2019 5:42 PM EDT Ryan Lynch MD POINT OF CARE TEST ORDERABLES [facility] [place] [address] * XR Chest One View (03/05/2019 4:33 PM EDT) Anatomical Region Laterality Modality Chest N/A Digital Radiogra phy Impressions 03/05/2019 4:35 PM EDT Opacity at left base consistent with atelectasis with or without effusion. No pneumothorax. Thank you for letting us participate in the care of this patient. For questions regarding this report, please contact the number below. ? Narrative 03/05/2019 4:35 PM EDT EXAMINATION: XR [...] EDT) Hemoglobin 10.9(L) 11.7 - 15.5 gm/dL [facility] Blood specimen (specimen) 03/05/2019 4:10 PM EDT 03/05/2019 4:15 PM EDT Narrative Resulting Agency Comment Spec In Lab Ryan Lynch MD HEMATOLOGY ORDERABL ES [facility] [place] [address] * Potassium (03/05/2019 4:10 PM EDT) Potassium 4.2 3.5 - 5.0 mmol/L [facility] Comment: Please note: ??Patients with [...] MD CHEMISTRY ORDERABLE S Performing Organization Address City/[facility]/ZIP Co de Phone Number [facility] [place] [address] * POCT Glucose (03/05/2019 4:08 PM EDT) [facility] Glucose, POC 153 65 - 199 mg/dL [facility] Comment: Supplemental ranges: <140 mg/dL before meals <180 mg/dL all other times of the day Blood specimen (specimen) 03/05/2019 4:08 PM EDT 03/05/2019 4:08 PM EDT Ryan Lynch MD POINT OF CARE TEST ORDERABLES Performing Organization Address [facility] Co de Phone Number [facility] [place] [address] * (ABNORMAL) BLOOD GAS 2 ARTERIAL (03/05/2019 2:14 PM EDT) [facility] Signature pH, Arterial 7.34(L) 7.35 - 7.45 [facility] PCO2, Arterial 42 35 - 45 mmHg [facility] PO2, Arterial 121(H) 85 - 104 mmHg [facility] Bicarbonate, Arterial 22.0 20.0 - 26.0 mmol/L [facility] Base Excess, Arterial -3.7(L) -3.0 - 3.0 mmol/L [facility] Hgb Blood Gas 12.0 11.7 - 15.5 gm/dL [facility] Oxyhemoglobin, Arterial 96.8 94.0 - 97.0 % [facility] Carboxyhemoglob in, Arterial 0.3 % [facility] Comment: Nonsmokers: 0.5-1.5% COHB Smokers: Variable, but usually less than 10% Toxic: 20-30% COHB Lethal: Greater than 60% COHB Methemoglobin, Arterial 0.7 <=1.5 % [facility] Na Whole Blood 136 135 - 145 mmol/L [facility] K Whole Blood 4.3 3.5 - 5.0 mmol/L [facility] Comment: Please note: Patients with WBC >100,000 may have falsely elevated Potassium levels. Contact the Clinical Chemistry Laboratory if there are any questions. ICa Whole Blood 1.06(L) 1.15 - 1.33 mmol/L [facility] Comment: Note: ??Total bilirubin higher than 20 mg/dL may lead to falsely low ionized calcium. CL Whole Blood 107 98 - 107 mmol/L [facility] Gluc Whole Bld 182 65 - 199 mg/dL [facility] Comment:Diabetes: >=200 mg/d L plus symptoms. Lactate WB 2.6(H) 0.5 - 2.2 mmol/L [facility] FIO2 Art 40 % [facility] PF Ratio Art 302 [facility] Blood specimen (specimen) 03/05/2019 2:14 PM EDT 03/05/2019 2:14 PM EDT Ryan Lynch MD POINT OF CARE TEST ORDERABLES [facility] [place] [address] * POCT Glucose (03/05/2019 2:08 PM EDT) Glucose, POC 183 65 - 199 mg/dL [facility] Comment: Supplemental ranges: <140 mg/dL before meals <180 mg/dL all other times of the day Blood specimen (specimen) 03/05/2019 2:08 PM EDT 03/05/2019 2:08 PM EDT Ryan Lynch MD POINT OF C[place] [address] * XR Chest One View (03/05/2019 12:48 PM EDT) Anatomical Region Laterality Modality Chest N/A Digital Radiogra phy Impressions 03/05/2019 12:57 PM EDT Mild pulmonary edema. Thank you for letting us participate in the care of this patient. For questions regarding this report, please contact the number below. ? Narrative 03/05/2019 12:57 PM EDT EXAMINATION: XR [...] EDT) pH, Arterial 7.33(L) 7.35 - 7.45 [facility] PCO2, Arterial 42 35 - 45 mmHg [facility] PO2, Arterial 178(H) 85 - 104 mmHg [facility] Bicarbonate, Arterial 21.7 20.0 - 26.0 mmol/L [facility] Base Excess, Arterial -4.3(L) -3.0 - 3.0 mmol/L [facility] Hgb Blood Gas 11.2(L) 11.7 - 15.5 gm/dL [facility] Oxyhemoglobin, Arterial 97.6(H) 94.0 - 97.0 % [facility] LABORATORY Carboxyhemoglob in, Arterial 0.3 % [facility] Comment: Nonsmokers: 0.5-1.5% COHB Smokers: Variable, but usually less than 10% Toxic: 20-30% COHB Lethal: Greater than 60% COHB Methemoglobin, Arterial 0.8 <=1.5 % [facility] Na Whole Blood 137 135 - 145 mmol/L [facility] K Whole Blood 3.2(L) 3.5 - 5.0 mmol/L [facility] Comment: Please note: Patients with WBC >100,000 may have falsely elevated Potassium levels. Contact the Clinical Chemistry Laboratory if there are any questions. ICa Whole Blood 1.01(L) 1.15 - 1.33 mmol/L [facility] Comment: Note: ??Total bilirubin higher than 20 mg/dL may lead to falsely low ionized calcium. CL Whole Blood 106 98 - 107 mmol/L [facility] Gluc Whole Bld 197 65 - 199 mg/dL [facility] Comment:Diabetes: >=200 mg/d L plus symptoms. Lactate WB 2.9(H) 0.5 - 2.2 mmol/L [facility] FIO2 Art 100 % [facility] PF Ratio Art 178 [facility] Blood specimen (specimen) 03/05/2019 12:45 PM EDT 03/05/2019 12:45 PM EDT Ryan Lynch MD POINT OF CARE TEST ORDERABLES Performing Organization Address [facility] Co de Phone Number [facility] [place] [phone] * Prepare Platelets, Apheresis (03/05/2019 11:45 AM EDT) Dispensed? Yes [facility] Blood specimen (specimen) 03/05/2019 11:45 AM EDT 03/05/2019 11:43 AM EDT Ryan Lynch MD BLOOD BANK PRODUCT ORDERABLES Performing Organization Address [facility] Co de Phone Number [facility] [place] [address] * (ABNORMAL) BLOOD GAS 2 ARTERIAL (03/05/2019 11:14 AM EDT) pH, Arterial 7.39 7.35 - 7.45 [facility] PCO2, Arterial 40 35 - 45 mmHg [facility] PO2, Arterial 325(H) 85 - 104 mmHg [facility] Bicarbonate, Arterial 23.9 20.0 - 26.0 mmol/L [facility] Base Excess, Arterial -1.1 -3.0 - 3.0 mmol/L [facility] Hgb Blood Gas 8.1(L) 11.7 - 15.5 gm/dL [facility] Oxyhemoglobin, Arterial 98.7(H) 94.0 - 97.0 % [facility] Carboxyhemoglob in, Arterial 0.4 % [facility] Comment: Nonsmokers: 0.5-1.5% COHB Smokers: Variable, but usually less than 10% Toxic: 20-30% COHB Lethal: Greater than 60% COHB Methemoglobin, Arterial 0.3 <=1.5 % [facility] Na Whole Blood 131(L) 135 - 145 mmol/L [facility] K Whole Blood 3.4(L) 3.5 - 5.0 mmol/L [facility] Comment: Please note: Patients with WBC >100,000 may have falsely elevated Potassium levels. Contact the Clinical Chemistry Laboratory if there are any questions. ICa Whole Blood 1.10(L) 1.15 - 1.33 mmol/L [facility] Comment: Note: ??Total bilirubin higher than 20 mg/dL may lead to falsely low ionized calcium. CL Whole Blood 104 98 - 107 mmol/L [facility] Gluc Whole Bld 216(H) 65 - 199 mg/dL [facility] Comment:Diabetes: >=200 mg/d L plus symptoms. Lactate WB 3.4(H) 0.5 - 2.2 mmol/L [facility] FIO2 Art 90 % [facility] PF Ratio Art 361 [facility] Blood specimen (specimen) 03/05/2019 11:14 AM EDT 03/05/2019 11:14 AM EDT Ryan Lynch MD POINT OF CARE TEST ORDERABLES [facility] [place] [address] * (ABNORMAL) Differential, Automated (03/05/2019 11:04 AM EDT) Neutrophil % 69.8 % [facility] Neutrophil Absolute 7.85(H) 1.70 - 6.10 x10(3)/ L [facility] Lymph % 24.5 % [facility] Lymphocytes Abs 2.8 0.9 - 3.2 x10(3)/ L [facility] Monocyte % 3.1 % [facility] Monocyte Abs 0.4 0.3 - 0.9 x10(3)/[facility]OR[facility] Eos % 1.0 % [facility] Eosinophils Abs 0.1 0.0 - 0.4 x10(3)/[facility]OR[facility] Basophil % 0.2 % [facility] Baso Absolute 0.0 0.0 - 0.1 x10(3)/[facility] Immature Gran % 1.40 % [facility] Comment: Immature granulocytes(IG's)percentage and absolute count will include metamyelocytes, myelocytes, and promyelocytes. Blood smears from CBCs yielding IG's will be scanned manually for concordance. If this scan disagrees with the automated IG or if promyelocytes are noted, a manual differential will be performed. Immature Gran Absolute 0.16(H) 0.00 - 0.04 x10(3)/[facility]ATORY Blood specimen (specimen) 03/05/2019 11:04 AM EDT 03/05/2019 11:26 AM EDT Narrative Resulting Agency Comment Spec In Lab Ish Shaikh MD HEMATOLOGY ORDERAB LES [facility] [place] [address] * (ABNORMAL) Hemogram (03/05/2019 11:04 AM EDT) White Blood Cell 11.2(H) 4.0 - 9.5 x10(3)/[facility] Red Blood Cell 2.41(L) 4.00 - 5.21 x10(6)/mc L [facility] Hemoglobin 7.6(L) 11.7 - 15.5 gm/dL [facility] Hematocrit 22.8(L) 35.7 - 45.8 % [facility] Comment: This result has been called to GEOVANI HOPSON by Law Chacon on 03 05 2019 at 1130, and has been read back. Mean Cell Volume 94.6(H) 82.6 - 94.4 fL [facility] Mean Cell Hemoglobin 31.5 27.1 - 32.0 pg [facility] Mean Cell Hemoglobin Concentration 33.3 31.7 - 35.0 gm/dL [facility] Platelet 153 145 - 357 x10(3)/mc L [facility] RDW Standard Deviation 47.8(H) 37.0 - 46.0 fL [facility] RDW coefficient of variation 13.7 11.5 - 14.1 % [facility] Mean Platelet Volume 9.1 7.6 - 12.9 [facility] NRBC% auto 0.0 % [facility] NRBC Absolute 0.000 0.000 - 0.000 x10(3)/mc L [facility] Blood specimen (specimen) 03/05/2019 11:04 AM EDT 03/05/2019 11:26 AM EDT Narrative Resulting Agency Comment Spec In Lab Ish Shaikh MD HEMATOLOGY ORDERAB LES [facility] [place] [address] * (ABNORMAL) Fibrinogen (03/05/2019 11:04 AM EDT) Fibrinogen 118(L) 200 - 393 mg/dL [facility] Comment: Called by: clay, Read back by: geovani hopson_, Date/Time:03/05/19 11:43_. A fibrinogen level >100 mg/dL is adequate for hemostasis in most patients without underlying bleeding disorders. Blood specimen (specimen) 03/05/2019 11:04 AM EDT 03/05/2019 11:26 AM EDT Narrative Resulting Agency Comment Spec In Lab Bob Bolaños MD HEMATOLOGY ORDERABLE S Performing Organization Address [facility] Co de Phone Number [facility] [place] [address] * APTT (03/05/2019 11:04 AM EDT) Partial Thromboplastin Time 32 25 - 37 sec [facility] Comment: Called by: clay, Read [...] MD HEMATOLOGY ORDERABLE S Performing Organization Address [facility] Co de Phone Number [facility] [place] [address] * (ABNORMAL) Prothrombin Time (03/05/2019 11:04 AM EDT) Prothrombin Time 18.0(H) 9.4 - 12.5 sec [facility] Comment:Called by: clay, Read back by: geovani hopson_, Date/Time:03/05/19 11:43_. International Normalization Ratio 1.6 [facility] Comment: Called by: clay, Read [...] MD HEMATOLOGY ORDERABLE S Performing Organization Address City/[facility]/ZIP Co de Phone Number [facility] [place] [address] * Platelet count (03/05/2019 10:38 AM EDT) Platelet 185 145 - 357 x10(3)/mc L [facility] Immature Plt % 1.1 0.0 - 7.4 % [facility] Comment: Limitation of the Immature Platelet Fraction (IPF)-May be less reliable when the platelet count is less than 59c387/uL due to statistical imprecision. The IPF value [...] in a decreased state of production. References: [employer] The Clinical Value of the Immature Platelet Fraction (IPF) in Cell Recovery Document Number [id number] 11/2010 [employer] The Role of the Immature Platelet Fraction (IPF) in the Differential Diagnosis of Thrombocytopenia, Document [id number] V05 P05/14 Blood specimen (specimen) 03/05/2019 10:38 AM EDT 03/05/2019 10:46 AM EDT Narrative Resulting Agency Comment Spec In Lab Ryan Lynhc MD HEMATOLOGY ORDERABL ES Performing Organization Address City/[facility]/ZIP Co de Phone Number [facility] [place] [address] * (ABNORMAL) Hemoglobin and Hematocrit, blood (03/05/2019 10:38 AM EDT) Hemoglobin 7.3(L) 11.7 - 15.5 gm/dL [facility] Hematocrit 22.5(L) 35.7 - 45.8 % [facility] Comment: This result has been called to HAYDEE HOPSON by Tatiana Vo on 03 05 2019 at 1055, and has been read back. Blood specimen (specimen) 03/05/2019 10:38 AM EDT 03/05/2019 10:46 AM EDT Narrative Resulting Agency Comment Spec In Lab Ryan Lynch MD HEMATOLOGY ORDERABL ES Performing Organization Address [facility]/ZIP Co de Phone Number [facility] [place] [address] * (ABNORMAL) Fibrinogen (03/05/2019 10:38 AM EDT) Pathologist [facility] Fibrinogen 120(L) 200 - 393 mg/dL [facility] Comment: A fibrinogen level >100 mg/dL is adequate for hemostasis in most patients without underlying bleeding disorders. Blood specimen (specimen) 03/05/2019 10:38 AM EDT 03/05/2019 10:46 AM EDT Narrative Resulting Agency Comment Spec In Lab Ryan Lynch MD HEMATOLOGY ORDERABL ES Performing Organization Address City/[facility]/ZIP Co de Phone Number [facility] [place] [address] * (ABNORMAL) BLOOD GAS 2 ARTERIAL (03/05/2019 10:29 AM EDT) pH, Arterial 7.43 7.35 - 7.45 [facility] PCO2, Arterial 34(L) 35 - 45 mmHg [facility] PO2, Arterial 360(H) 85 - 104 mmHg [facility] Bicarbonate, Arterial 21.8 20.0 - 26.0 mmol/L [facility] Base Excess, Arterial -2.5 -3.0 - 3.0 mmol/L [facility] Hgb Blood Gas 8.3(L) 11.7 - 15.5 gm/dL [facility] Oxyhemoglobin, Arterial 98.8(H) 94.0 - 97.0 % [facility] Carboxyhemoglob in, Arterial 0.3 % [facility] Comment: Nonsmokers: 0.5-1.5% COHB Smokers: Variable, but usually less than 10% Toxic: 20-30% COHB Lethal: Greater than 60% COHB Methemoglobin, Arterial 0.3 <=1.5 % [facility] Na Whole Blood 128(L) 135 - 145 mmol/L [facility] K Whole Blood 4.5 3.5 - 5.0 mmol/L [facility] Comment: Please note: Patients with WBC >100,000 may have falsely elevated Potassium levels. Contact the Clinical Chemistry Laboratory if there are any questions. ICa Whole Blood 0.91(Criti edward) 1.15 - 1.33 mmol/L [facility] Comment: Note: ??Total bilirubin higher than 20 mg/dL may lead to falsely low ionized calcium. CL Whole Blood 100 98 - 107 mmol/L [facility] Gluc Whole Bld 221(H) 65 - 199 mg/dL [facility] Comment:Diabetes: >=200 mg/d L plus symptoms. Lactate WB 2.8(H) 0.5 - 2.2 mmol/L [facility] Blood specimen (specimen) 03/05/2019 10:29 AM EDT 03/05/2019 10:29 AM EDT Ryan Lynch MD POINT OF CARE TEST ORDERABLES [facility] [place] [address] * (ABNORMAL) BLOOD GAS 2 ARTERIAL (03/05/2019 9:56 AM EDT) pH, Arterial 7.41 7.35 - 7.45 [facility] PCO2, Arterial 38 35 - 45 mmHg [facility] PO2, Arterial 362(H) 85 - 104 mmHg [facility] Bicarbonate, Arterial 24.0 20.0 - 26.0 mmol/L [facility] Base Excess, Arterial -0.6 -3.0 - 3.0 mmol/L [facility] Hgb Blood Gas 8.7(L) 11.7 - 15.5 gm/dL [facility] Oxyhemoglobin, Arterial 99.1(H) 94.0 - 97.0 % [facility] Carboxyhemoglob in, Arterial 0.0 % [facility] Comment: Nonsmokers: 0.5-1.5% COHB Smokers: Variable, but usually less than 10% Toxic: 20-30% COHB Lethal: Greater than 60% COHB Methemoglobin, Arterial 0.3 <=1.5 % [facility] Na Whole Blood 131(L) 135 - 145 mmol/L [facility] K Whole Blood 4.4 3.5 - 5.0 mmol/L [facility] Comment: Please note: Patients with WBC >100,000 may have falsely elevated Potassium levels. Contact the Clinical Chemistry Laboratory if there are any questions. ICa Whole Blood 0.91(Criti edward) 1.15 - 1.33 mmol/L [facility] Comment: Note: ??Total bilirubin higher than 20 mg/dL may lead to falsely low ionized calcium. CL Whole Blood 103 98 - 107 mmol/L [facility] Gluc Whole Bld 207(H) 65 - 199 mg/dL [facility] Comment:Diabetes: >=200 mg/d L plus symptoms. Lactate WB 2.5(H) 0.5 - 2.2 mmol/L [facility] Blood specimen (specimen) 03/05/2019 9:56 AM EDT 03/05/2019 9:56 AM EDT Ryan Lynch MD POINT OF CARE TEST ORDERABLES [facility] [place] [address] * (ABNORMAL) BLOOD GAS 2 VENOUS (03/05/2019 9:27 AM EDT) pH, Venous 7.32 7.32 - 7.42 [facility] PCO2, Venous 45 41 - 51 mmHg [facility] PO2, Venous 48(H) 25 - 40 mmHg [facility] Bicarbonate, Venous 22.5 mmol/L [facility] Base Excess, Venous -3.6 mmol/L [facility] Hgb Blood Gas 9.0(L) 11.7 - 15.5 gm/dL [facility] Oxyhemoglobin, Venous 80.9 % [facility] Carboxyhemoglob in, Venous 0.3 % [facility] Comment: Nonsmokers: 0.5-1.5% COHB Smokers: Variable, but usually less than 10% Toxic: 20-30% COHB Lethal: Greater than 60% COHB Methemoglobin, Venous 0.3 <=1.5 % [facility] Na Whole Blood 136 135 - 145 mmol/L [facility] K Whole Blood 4.2 3.5 - 5.0 mmol/L [facility] Comment: Please note: Patients with WBC >100,000 may have falsely elevated Potassium levels. Contact the Clinical Chemistry Laboratory if there are any questions. ICa Whole Blood 0.86(Criti edward) 1.15 - 1.33 mmol/L [facility] Comment: Note: ??Total bilirubin higher than 20 mg/dL may lead to falsely low ionized calcium. CL Whole Blood 102 98 - 107 mmol/L [facility] Gluc Whole Bld 196 65 - 199 mg/dL [facility] Comment:Diabetes: >=200 mg/d L plus symptoms Lactate WB 2.2 0.5 - 2.2 mmol/L [facility] Blood Gas Source Venous [facility] Blood specimen (specimen) 03/05/2019 9:27 AM EDT 03/05/2019 9:27 AM EDT Ryan Lynch MD POINT OF CARE TEST ORDERABLES [facility] [place] [address] * (ABNORMAL) BLOOD GAS 2 ARTERIAL (03/05/2019 9:25 AM EDT) pH, Arterial 7.37 7.35 - 7.45 [facility] PCO2, Arterial 40 35 - 45 mmHg [facility] PO2, Arterial 408(H) 85 - 104 mmHg [facility] Bicarbonate, Arterial 22.7 20.0 - 26.0 mmol/L [facility] Base Excess, Arterial -2.6 -3.0 - 3.0 mmol/L [facility] Hgb Blood Gas 8.8(L) 11.7 - 15.5 gm/dL [facility] Oxyhemoglobin, Arterial 98.8(H) 94.0 - 97.0 % [facility] Carboxyhemoglob in, Arterial 0.3 % [facility] Comment: Nonsmokers: 0.5-1.5% COHB Smokers: Variable, but usually less than 10% Toxic: 20-30% COHB Lethal: Greater than 60% COHB Methemoglobin, Arterial 0.3 <=1.5 % [facility] Na Whole Blood 136 135 - 145 mmol/L [facility] K Whole Blood 4.4 3.5 - 5.0 mmol/L [facility] Comment: Please note: Patients with WBC >100,000 may have falsely elevated Potassium levels. Contact the Clinical Chemistry Laboratory if there are any questions. ICa Whole Blood 0.81(Criti edward) 1.15 - 1.33 mmol/L [facility] Comment: Note: ??Total bilirubin higher than 20 mg/dL may lead to falsely low ionized calcium. CL Whole Blood 103 98 - 107 mmol/L [facility] Gluc Whole Bld 199 65 - 199 mg/dL [facility] Comment:Diabetes: >=200 mg/d L plus symptoms. Lactate WB 2.1 0.5 - 2.2 mmol/L [facility] Blood specimen (specimen) 03/05/2019 9:25 AM EDT 03/05/2019 9:25 AM EDT Ryan Lynch MD POINT OF CARE TEST ORDERABLES [facility] [place] [address] * (ABNORMAL) BLOOD GAS 2 ARTERIAL (03/05/2019 8:32 AM EDT) pH, Arterial 7.43 7.35 - 7.45 [facility] PCO2, Arterial 37 35 - 45 mmHg [facility] PO2, Arterial 468(H) 85 - 104 mmHg [facility] Bicarbonate, Arterial 24.1 20.0 - 26.0 mmol/L [facility] Base Excess, Arterial -0.2 -3.0 - 3.0 mmol/L [facility] Hgb Blood Gas 12.3 11.7 - 15.5 gm/dL [facility] Oxyhemoglobin, Arterial 99.3(H) 94.0 - 97.0 % [facility] Carboxyhemoglob in, Arterial 0.3 % [facility] Comment: Nonsmokers: 0.5-1.5% COHB Smokers: Variable, but usually less than 10% Toxic: 20-30% COHB Lethal: Greater than 60% COHB Methemoglobin, Arterial 0.0 <=1.5 % [facility] Na Whole Blood 140 135 - 145 mmol/L [facility] K Whole Blood 3.3(L) 3.5 - 5.0 mmol/L [facility] Comment: Please note: Patients with WBC >100,000 may have falsely elevated Potassium levels. Contact the Clinical Chemistry Laboratory if there are any questions. ICa Whole Blood 1.10(L) 1.15 - 1.33 mmol/L [facility] Comment: Note: ??Total bilirubin higher than 20 mg/dL may lead to falsely low ionized calcium. CL Whole Blood 105 98 - 107 mmol/L [facility] Gluc Whole Bld 133 65 - 199 mg/dL [facility] Comment:Diabetes: >=200 mg/d L plus symptoms. Lactate WB 2.4(H) 0.5 - 2.2 mmol/L [facility] FIO2 Art 90 % [facility] PF Ratio Art 520 [facility] Blood specimen (specimen) 03/05/2019 8:32 AM EDT 03/05/2019 8:32 AM EDT Ryan Lynch MD POINT OF CARE TEST ORDERABLES Performing Organization Address [facility] Co de Phone Number [facility] [place] [address] * POCT Glucose (03/05/2019 6:49 AM EDT) Glucose, POC 133 65 - 199 mg/dL [facility] Comment: Supplemental ranges: <140 mg/dL before meals <180 mg/dL all other times of the day Blood specimen (specimen) 03/05/2019 6:49 AM EDT 03/05/2019 6:49 AM EDT Ryan Lynch MD POINT OF CARE TEST ORDERABLES [facility] [place] [address] * Prepare RBC (03/05/2019 6:35 AM EDT) Dispensed? Yes [facility] Blood specimen (specimen) 03/05/2019 6:35 AM EDT 03/05/2019 6:31 AM EDT Ryan Lynch MD BLOOD BANK PRODUCT ORDERABLES [facility] [place] [address] documented in this encounter Visit Diagnoses Diagnosis S/P CABG (coronary artery bypass graft)- Primary Postsurgical aortocoronary bypass status CAD (coronary artery disease) Coronary atherosclerosis of unspecified type of vessel, [place] or graft Coronary artery disease of [place] heart with stable angina pectoris, unspecified vessel or lesion type S/P CABG (coronary artery bypass graft) Postsurgical aortocoronary bypass status documented in this encounter Admitting Diagnoses Diagnosis CAD (coronary artery disease) Coronary atherosclerosis of unspecified type of vessel, [place] or graft documented in this encounter Administered Medications Inactive Administered Medications - up to 3 most recent administrations Medication Order MAR Action Action Date Dose Rate Site acetaminophen (TYLENOL) tablet 1,000 mg 1,000 mg, [...] Given 03/06/2019 5:11 PM EDT 40 mg calcium chloride 100 mg/mL (10 %) injection ONCE PRN, Starting on Sat03/05/19 at 1046, Until Sat03/05/19 at 1509, Intra-Operative (Intra-Procedure), Routine Given 03/05/2019 10:46 AM EDT 1 g cardioplegic solution (PLEGISOL) induction solution CONTINUOUS PRN, Starting on Sat03/05/19 at 0923, Until Lawanda 03/05/19 at 1219, Intra-Operative (Intra-Procedure) New Bag 03/05/2019 9:23 AM EDT 300 mLs cardioplegic solution (PLEGISOL) maintenance solution CONTINUOUS PRN, Starting on Sat03/05/19 at 1045, Until Lawanda 03/05/19 at 1219, Intra-Operative (Intra-Procedure) New Bag 03/05/2019 10:45 AM EDT 572 mLs cardioplegic solution (PLEGISOL) reperfusion solution CONTINUOUS PRN, Starting on Sat03/05/19 at 1045, Until Lawanda 03/05/19 at 1219, Intra-Operative (Intra-Procedure) New Bag 03/05/2019 10:45 AM EDT 142 mLs dextrose 50% intravenous solution 25-50 mL [...] the duration of the active insulin., Routine electrolyte (pH 7.4) (NORMOSOL-R; PLASMALYTE-A) injection CONTINUOUS PRN, Starting on Lawanda 03/05/19 at 0816, Until Lawanda 03/05/19 at 1219, Intra-Operative (Intra-Procedure) New Bag 03/05/2019 8:16 AM EDT 1,500 mLs furosemide (LASIX) injection 20 mg 20 mg, [...] weight of tube = 37.5 grams., Routine heparin (porcine) injection ONCE PRN, Starting on Sat03/05/19 at 0816, Until Sat03/05/19 at 1509, Intra-Operative (Intra-Procedure), Routine Given 03/05/2019 8:16 AM EDT 5,000 Units insulin lispro (HumaLOG) VIAL injection 1-4 Units [...] Given 03/07/2019 11:53 AM EDT 1 Units lidocaine (PF) (XYLOCAINE) 100 mg/5 mL (2 %) injection ONCE PRN, Starting on Lawanda 03/05/19 at 1046, Until Lawanda 03/05/19 at 1509, Intra-Operative (Intra-Procedure), Routine Given 03/05/2019 10:46 AM EDT 200 mg magnesium hydroxide (Milk of Magnesia) (240 mg/mL) oral liquid 10 mL 10 mL, Oral, DAILY, First dose on 03/07/19 at 0900, Until Discontinued, Post-op day 2. Do not use with renal insufficiency., Routine Given 03/08/2019 9:17 AM EDT 10 mLs Given 03/07/2019 9:06 AM EDT 10 mLs magnesium sulfate 4 mEq/mL (50 %) injection ONCE PRN, Starting on Lawanda 03/05/19 at 1046, Until Lawanda 03/05/19 at 1509, Intra-Operative (Intra-Procedure), Routine Given 03/05/2019 10:46 AM EDT 2 g mannitol (50 grams and over) 100 g/500 mL (20%) infusion CONTINUOUS PRN, Starting on Lawanda 03/05/19 at 1049, Until Lawanda 03/05/19 at 1219, Intra-Operative (Intra-Procedure) New Bag 03/05/2019 10:49 AM EDT 75 g metoprolol tartrate (LOPRESSOR) tablet 25 mg 25 mg, Oral, EVERY 12 HOURS SCHEDULED (2 times per day), First dose (after last modification) on 03/08/19 at 2100, Until Discontinued, Routine Given 03/09/2019 8:38 AM EDT 25 mg Given 03/08/2019 8:47 PM EDT 25 mg ondansetron (ZOFRAN) injection 4 mg 4 mg, Intravenous, EVERY 8 HOURS PRN, Starting on Lawanda 03/05/19 at 1208, Until 03/09/19 at 1715, Nausea Given 03/05/2019 6:42 PM EDT 4 mg oxyCODONE (ROXICODONE) immediate release tablet 5 mg 5 mg, Oral, EVERY 4 HOURS PRN, Starting on [place] 03/05/19 at 2056, Until 03/09/19 at 1715, Pain, Routine pantoprazole (PROTONIX) tablet 40 mg 40 mg, [...] Given 03/07/2019 9:06 AM EDT 20 mEq senna-docusate (PERICOLACE) 8.6-50 mg per tablet 2 [...] Given 03/08/2019 10:15 AM EDT 5 mLs tamoxifen (NOLVADEX) tablet 20 mg 20 mg, Oral, DAILY, First dose on Sat03/06/19 at 1200, Until Discontinued, Routine Given 03/09/2019 10:07 AM EDT 20 mg Given 03/08/2019 9:10 AM EDT 20 mg Given 03/07/2019 9:06 AM EDT 20 mg vancomycin (VANCOCIN) injection ONCE PRN, Starting on Lawanda 03/05/19 at 0623, Until Lawanda 03/05/19 at 1509, Intra-Operative (Intra-Procedure), Routine Given 03/05/2019 6:23 AM EDT 1 g 19- Surgical Site verapamil (ISOPTIN) injection ONCE PRN, Starting on Lawanda 03/05/19 at 0623, Until Lawanda 03/05/19 at 1509, Administer over 2 Minutes, Intra-Operative (Intra-Procedure) Given 03/05/2019 6:23 AM EDT 5 mg 19- Surgical Site documented in this encounter Active and Recently [...] Rg Gordillo, GIANNI)2330 (Given - Provider: Elif Jackson, GIANNI) 0600 (Given - Provider: Elif Jackson, GIANNI)1311 (Given - Provider: Rg Gordillo, GIANNI)1718 (Given - Provider: Cornell Reyes RN) 0015 (Given - Provider: Jazz Kiser RN)0602 (Given - Provider: Jazz Kiser RN)1134 (Given - Provider: Cornell Reyes, GIANNI) aspirin chewable tablet 81 mg(Linked Group 2) [...] Gordillo RN) 0910 (Given - Provider: Rg H Duy, RN)1718 (Given - Provider: Cornell Reyes RN [...] Do not use with renal insufficiency., Routine 0906 (Given - Provider: Rg Gordillo RN) 0917 (Given - Provider: Rg Gordillo RN) 0900 (Not Given - Provider: Cornell Reyes RN - Reason: Contraindicated) metoprolol (LOPRESSOR) tablet 12.5 mg (CANCELED) 12.5 mg, Oral, EVERY 12 HOURS SCHEDULED (2 times per day), First dose on Sat03/06/19 at 0915, Until Discontinued, Routine 905 (Given - Provider: Rg Gordillo RN)2121 (Given - Provider: Elif Jackson RN) 09 (Given - Provider: Rg Gordillo RN) metoprolol [...] Kiser RN) 0838 (Given - Provider: Cornell Reyes RN) pantoprazole (PROTONIX) tablet 40 mg(Linked Group 4) 40 mg, Oral, DAILY, First dose on Lawanda 03/05/19 at 1300, Until Discontinued, DO NOT CRUSH OR OPEN If unable to take PO, may give IV 905 (Given - Provider: Rg Gordillo RN) 09 (Given - Provider: Rg Gordillo RN) 0838 (Given - Provider: Cornell Reyes, GIANNI) potassium chloride (K-DUR/KLOR-CON) extended release tablet 20 mEq 20 mEq, Oral, DAILY, First dose on 03/07/19 at 0900, Until Discontinued, Routine 905 (Given - Provider: Rg Gordillo RN) 09 [...] 1, Routine 2121 (Given - Provider: Elif Jackson, GIANNI) 2100 (Not Given - Provider: Jazz Kiser RN - Reason: See comment - Comment: patient has had multiple soft bowel movements) sodium chloride 0.9 % (flush) flush 5 mL 5 mL, Intravenous, EVERY 8 HOURS, First dose on Sat03/06/19 at 1015, Until Discontinued, Routine 0215 (Hold - Provider: Nikki Caraballo - Reason: Contraindicated)101 5 (Given - Provider: Rg Gordillo, GIANNI)1815 (Given - Provider: Elif Jackson, GIANNI) 0215 (Not Given - Provider: Kp Ortega RN - Reason: Order parameters not met)1015 (Given - Provider: Rg Gordillo RN)1815 (Not Given - Provider: Jazz Kiser RN - Reason: See comment - Comment: left over from previous shift) 0215 (Given - Provider: Jazz Kiser RN)1015 (Given - Provider: Cornell Reyes, GIANNI) tamoxifen (NOLVADEX) tablet 20 mg 20 mg, Oral, DAILY, First dose on Sat03/06/19 at 1200, Until Discontinued, Routine 0906 (Given - Provider: Rg Gordillo RN) 0910 (Given - Provider: Rg Gordillo RN) 1007 (Given - Provider: Cornell Reyes, RN) PRN Medication Order 03/07/2019 03/08/2019 03/09/2019 bisacodyl (DULCOLAX) suppository 10 mg 10 mg, Rectal, DAILY PRN, Starting on Sat03/08/19 at 0000, Until 03/09/19 at 1715, Constipation, Starting post-op day 3., [...] 40 mg, Intravenous, DAILY, First dose on Lawanda 03/05/19 at 1300, Until Discontinued, Reconstitute with 10 [...] Routine documented in this encounter Care Teams Shotgun Shell Reprinting Unit Operator Relationship Specialty Start Date End Date Angie Alonzo MD [facility] [address] [place] [address] PCP - General Family Medicine 06/25/17 documented as of this encounter
--- OUTSIDE RECORDS SUMMARY | 2024-03-11 15:16 | XMS_ITS | Encounter Summary ---
Author Organization [facility]ly [facility] [place] [address] Care Team Providers Care Low Pressure Boiler Tender Name Role Phone Angie Alonzo MD Primary Care Provider [phone] Reason for Visit * Reason Comments Follow-up Encounter Details Date Type Department Care Team (Late st Contact Info) Description 01/20/2019 10:15 AM EDT Office [place] [address] Rajwinder Moore [employer] MANAGER [facility] [place] [address] History of breast cancer Social History Tobacco Use Types Packs/Day Years Used Date Smoking Tobacco: Never Smokeless Tobacco: Never Sex and Gender Information Value Date Recorded Sex Assigned at Not on file Gender Identity Not on file Sexual Orientation Not on file documented as of this encounter Progress Notes * Rajwinder Moore, LINDSEY - 01/20/2019 10:15 AM EDT [place] M Alesia returns for surgical follow up. 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 Negative margins. Closest invasive 6mm cranial. Closest DCIS 0.5mm cranial 0 of 1 LNs positive cells,, ER+/MN+, Sod3Xsv-, pTNM: ---(m)T1b N0 (AJCC, 7th edition, 2010) [...] discomfort in her breast on occasion. Tolerating tamoxifen, seeing Dr Damico later today. Tough year after losing her to Alzheimers in August. She has had one hip replacement and needs her other one done but a murmur was recently heard and she needs an echo and clearance before her surgery.She feels well/so SOB, chest pain,HERRMANN. PE: Abimbola has a well-healed incision on the left inner breast with minimal post-op and XRT changes at thesite of partial mastectomy. Breasts without masses. Axilla has a well healed incision and is otherwise negative. Arm has full range of motion without edema. Cardiac: RRR S1S2 with systolic murmur [facility] Surgery Follow Up Note Range of motion of surgical arm complete Lymphedema present No Cosmesis-surgeon reported Cosmesis-patient reported Excellent Excellent Local or regional recurrence No Contralateral cancer present No Distant recurrence present No Date of last follow up 01/20/19 Mammogram today is pending Imp: Abimbola Dumas is a 73 y.o. 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 Stage T1bN0. Overall doing well. Margins negative. DCIS was not contiguous. Closest margin was low grade, 0.5mm. Plan: RTC in one year with a bilateral mammogram. Scheduled med onc follow up. I told Abimbola that I will be retiring in May and that her next follow up surgical appointment will be with a new provider.She agrees. documented in this encounter Plan of Treatment Not on file documented as of this encounter Visit Diagnoses Diagnosis History of breast cancer Personal history of malignant neoplasm of breast documented in this encounter Care Teams Low Pressure Boiler Tender Relationship Specialty Start Date End Date Angie Alonzo MD [address] [place] [address] PCP - General Family Medicine 06/25/17 documented as of this encounter
--- OUTSIDE RECORDS SUMMARY | 2024-03-11 15:17 | XMS_ITS | Encounter Summary ---
Author Organization [facility] Address [facility] [place] [address] Care Team Providers Care Functional Tester Typewriters Name Role Phone Angie Alonzo MD Primary Care Provider [phone] Reason for Referral * Consultation (Routine) - Closed Specialty Diagnoses / Procedures Referred By Mima rivera Referred To Contact Endocrinology Diagnoses Thyroid nodule Malignant neoplasm of left female breast, unspecified estrogen receptor status, unspecified site of breast Bethany Merrill MD [facility] [place] [address] [facility] [address] [place] [id number] Referral ID Status Reason Start Date Expiration Date V isits Requested Visits Authorized [id number] Closed Consult, Test & Treat 09/18/2017 09/18/2018 1 1 Reason for Visit * Reason Onset Date Comments Other 09/18/2017 Encounter Details Date Type Department Care Team (Late st Contact Info) Description 09/18/2017 Telephone Radiation Oncology at [address] [phone] Bethany Merrill MD [facility] [place] [address] Other Social History Tobacco Use Types Packs/Day Years Used Date Smoking Tobacco: Never Smokeless Tobacco: Never Sex and Gender Information Value Date Recorded Sex Assigned at Not on file Gender Identity Not on file Sexual Orientation Not on file documented as of this encounter Miscellaneous Notes * Telephone Encounter - Bethany Merrill MD - 09/18/2017 11:59 AM EDT I called [place] to inform her that the US guided FNA of her R thyroid nodule has been reviewed as showing atypia, of undetermined significance. I recommended referral to Endocrine @ [facility] & she agrees; ordered. documented in this encounter Plan of Treatment Scheduled Referrals Name Type Priority Associated Diagnoses Order Schedule Referral to Endocrinology Outpatient Referral Routine Thyroid nodule Malignant neoplasm of left female breast, unspecified estrogen receptor status, unspecified site of breast Ordered: 09/18/2017 documented as of this encounter Visit Diagnoses Diagnosis Thyroid nodule Nontoxic uninodular goiter Malignant neoplasm of left female breast, unspecified estrogen receptor status, unspecified site of breast documented in this encounter Care Teams Functional Tester Typewriters Relationship Specialty Start Date End Date Angie Alonzo MD [address] [place] [address] PCP - General Family Medicine 06/25/17 documented as of this encounter
--- OUTSIDE RECORDS SUMMARY | 2024-03-11 15:17 | XMS_ITS | Encounter Summary ---
Author Organization [facility] Address [facility] [place] [address] Care Team Providers Care Corn Husker Name Role Phone Angie Alonzo MD Primary Care Provider [phone] Reason for Visit * Reason Comments Breast Cancer Encounter Details Date Type Department Care Team (Late st Contact Info) Description 07/17/2017 9:30 AM EST Office Visit [place]ematology [place] [address] Kalyan Damico MD [facility] HEMATOLOGY/ONCOLOG Y DEPT. [place] [id number] Dagmar Lin, RN Malignant neoplasm of upper-inner quadrant of [...] * Patient Instructions* Kalyan Damico MD - 07/17/2017 9:30 AM EST You have a small, low grade, node negative breast. This is a very low risk cancer, and it makes plenty of hormone receptors so it would likely be sensitive to hormone blocking therapy. There is no evidence that the cancer has spread beyond the breast, either by symptoms or by findings on physical exam, or by your labs. There is no reason to do additional imaging to look for cancer outside the breast, such as a PET scan, a CT scan, or a bone scan. There is a very low risk that this cancer would shorten your life. The model on the internet shows a 2.5% risk that the cancer will shorten your life over the next 15 years. If you took 5 years of hormone blocking therapy, your risk of dying would decrease to 1.7%. This means that the hormone therapy would decrease your risk of dying from breast cancer by 0.8%. Your risk of a second breast cancerdeveloping over the next 15 years of life would be 7.5% and fiev years of tamoxifen would reduce that risk to 5%. We are suggesting the use of tamoxifen once a day for five years, without regards to food. adddThe side effecst of tamoxifen include hot flashes, night sweats, mood swings, night time leg cramping, weight gain, an an increase in your risk of developing cataracts. There is also a 1% increased risk of developing a blood clot in the legs or lungs. The signs or dsymptoms of a blood clot in the lung is redness, pain, swelling, ro warmth in one leg. The alternative treatment would be anastrozole for five years, the side effects include hot flashesnight sweats, mood swings, joint aches and pains, an increase in your cholesterol and blood pressure, and a fall in your bone density. You may proceed with the radiotherapy. I will call you at the end of the radiotherapy, I will review this discussion, and I will send in aprescription for the tamoxifen to your pharmacy at that time. Please contact me in the interim if you are having side effects from tamoxifen. I will see you back down here in six months, on the day you return to see Dr. Farooq and get your next mammograms. I will continue to se [place] twice a year while you will see Dr. Farooq once a year. documented in this encounter Progress Notes * Mariah Gaston - 07/17/2017 9:30 AM EST Breast Oncology Consultation Note Patient ID: Abimbola Dumas is a 71 y.o female with recently diagnosed pT1b,pN0 Lt breast cancer referred by Dr Harmeet Rogers for further management. HPI Ms. Dumas initially presented in October 2016 for screening mammogram with right breast pain BiRADs category 1A and left breast category 0. She was entirely asymptomatic. Left diagnostic mammogram and ultrasound on the left a few days after subsequently revealed spiculation in the medial anterior aspect-about 1 cm. Ultrasound showed an ill-defined hypoechoic area 2 cm from the nipple, 9 o???clock position about 1 cm in diameter with vascularity. An ultrasound-guided core needle biopsy was done on 12/04/2016 which was reported as benign breast and adipose tissue by [facility] pathology. A second opinion wassought here at [facility] which reported scans benign and adipose tissue. Repeat left breast mammogram ultrasound was performed which again in showed a 0.9cm (mammo) cm ill-defined mass in the 9 o???clock position 3 cm from the nipple (second read performed here). Ultrasound also reported no except absence of blood flow. Digital mammography and ultrasound on 05/28/2017 was accompanied by a vacuum- assisted biopsy on thewith pathology returning as ER/IL positive (>90% and 11- 50% respectively) low-grade IDC, atypical ductal hyperplasia bordering on low- grade DCIS without necrosis. HER-[address] Farooq here on 06/19/2017 in consultation and a recommendation for a partial mastectomy, and sentinel lymph node sampling was made. This was completed on 07/04/2017 with pathology returning grade 1 invasive ductal carcinoma, 6.6 mm with DCIS present (ranging from low-grade to high grade with comedonecrosis). No LVI identified. Margins were clear. One sentinel lymph node was identified and those no evidence of macro or micrometastasis. Today she feels well, healing well from her surgery without pain (only needed some APAP and ibuprofen for a day after surgery. No redness..She has no physical complaints. Prior to recent diagnosis, uses her exercise bike and elliptical regularly or goes to pool- 5-6 times a week Review of Systems Review of Systems Constitutional: Negative for anorexia, diaphoresis, fever and malaise/fatigue. Respiratory: Negative for cough, chest discomfort and orthopnea. Genitourinary: Negative for vaginal discharge. Gastrointestinal: Negative for vomiting, constipation and diarrhea. HENT: Negative for nosebleeds and postnasal drip. Psychiatric/Behavioral: Negative for depression. Hematologic/Lymphatic: Negative for adenopathy. Musculoskeletal: Positive for joint pain (Mostly in the knees, Left hip, shoulders and back). Negative for myalgias and joint swelling. Endocrine: Negative for polyphagia. Cardiovascular: Negative for palpitations, syncope and leg edema. No hx of DVT Neurological: Negative for headaches. Skin: Negative for acne and erythema. Past Medical Hx CVA in ~15 years Hypertension GERD Diabetes mellitus-prediabetes Arthritis, knees, lt hip and shoulders Medications Medications 07/17/17 0845 Medication Sig Taking? pantoprazole (PROTONIX) 20 mg Tablet, Delayed Release (E.C.) Take 20 mg by mouth daily. potassium chloride (KLOR-CON) 20 mEq Packet Take 20 mEq by mouth daily. lisinopril (PRINIVIL;ZESTRIL) 40 mg Tablet Take 40 mg by mouth daily. DILTiazem (CARDIZEM CD) 240 mg Capsule, Sust. Release 24 hr Take 240 mg by mouth daily. chlorthalidone (HYGROTEN) 25 mg Tablet Take 25 mg by mouth daily. atorvastatin (LIPITOR) 40 mg Tablet Take 40 mg by mouth daily. meTOPROLOL succinate (TOPROL-XL) 50 mg Tablet Sustained Release 24 hr Take 50 mg by mouth daily. blood-glucose meter (FREESTYLE) Kit 1 each by [employer].(Non-Drug; Combo Route) route as needed for Other. aspirin 81 mg Tablet, Chewable Take 81 mg by mouth daily. CALCIUM CITRATE/VITAMIN D3 (CITRACAL + D ORAL) Take by mouth. multivitamin Capsule Take 1 capsule by mouth daily. CALCIUM CARB, CITRATE/VIT D3 (CALCIUM CARB AND CITRATE-VITD3 ORAL) Take by mouth. Alleriges Allergies Allergen Reactions ??? Penicillins Unsure of type of reaction Past Surgical Hx Partial mastectomy Right hip total arthroplasty- August 2016 Salpingo-oophorectomy and Hysterectomy- menorrhagia (~age 48) Cholecystectomy Breast biopsy-Rt, reported to be benign Cataract surgery Family Hx No family hx of breast cancer or ovarian cancer Sister with lung cancer-previous smoker. Both parents from heart disease and CVA Social Hx Lives in [place], [place] with . 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 She appears well- developed and well-nourished. No distress. HENT: Head: Normocephalic. Mouth/Throat: No oropharyngeal exudate. Eyes: Conjunctivae are normal. Pupils are equal, round, and reactive to light. No scleral icterus. Neck: Neck supple. No thyromegaly present. Cardiovascular: Normal rate, regular rhythm and normal heart sounds. Exam reveals no friction rub. No murmur heard. Pulmonary/Chest: Effort normal and breath sounds normal. No stridor. No respiratory distress. She has no wheezes. She has no rales. Left breast: No palpable masses or axillary adenopathy Right breast: 4mm horizontal recent surgical incision medial to the nipple. Clean, dry without surrounding erythema. Probable underlying seroma. Axilla also with horizontal well healing incision. Also with probable seroma Abdominal: Soft. Bowel sounds are normal. She exhibits no distension and no mass. There is no tenderness. There is no rebound. No hernia. Obese, Musculoskeletal: She exhibits no edema, tenderness or deformity. Lymphadenopathy: She has no cervical adenopathy. Neurological: She is alert and oriented to person, place, and time. Skin: Skin is warm and dry. No erythema. Psychiatric: She has a normal mood and affect. Labs 06/19/2017- normal CBC, normal chemistry-BUN 24, LFTs normal Imaging Summary of pertinent results in HPI Assessment and Plan Ms Dumas is recently diagnosed with a stage IA (pT1bN0) IDC that is ER/ IL positive, HER-2 negative.Considering her stage at diagnosis, low-grade, clear margins she may be considered low risk but maystill benefit from endocrine therapy which would reduce mortality from breast cancer over 15 years by 0.8%. Risk modeling suggest she has a Considering she is fit without severe comorbidities, it is perceivable of her life expectancy would be over 10 years. We would favor tamoxifen over an AI because she has baseline arthritis, has had a hysterectomy and the marginal improvement in outcomes, and AI may be offset by her low risk disease. There would be a low threshold to discontinue tamoxifen if toxicity comes intolerable. We discussed with her the biology of hormone receptor positive breast cancer, outcomes to be expected from endocrine therapy and risks associated. We discussed both tamoxifen and AIs including toxicity of tamoxifen to include hot flashes, night sweats, DVTs, endometrial hyperplasia and cancer (no risk because of prior hysterectomy), GI upset etc. we discussed the toxicity to be expected from AIs including metabolic disturbances, hypertension, hot flashes, headaches etc. She should still get radiation therapy and she will be meeting with Dr. Lerma in [facility] on 07/22/2017, where she will be getting radiation. Even though she is over 68 yrs, this would improve risk of breast recurrence considering her life expectancy is estimated to be over a decade from now. We will follow-up with her over the phone closer towards the end of radiation and again discuss endocrine therapy and prescribed tamoxifen she is agreeable still. Her [place] and daughter Marion were present in the room for the discussion and everyone's questions and concerns were addressed. We intend to see her back in about 6 months. Thank you for referring Ms Dumas to the Breast Oncology Clinic at [facility] Patient seen and examined. I discussed the patient with my attending- Dr Mookie Gaston MD Fellow, Hematology & Oncology Pager [phone] Heme-Onc Staff I spoke with and examined Ms. Dumas, and I concur with Dr. Gaston's assessment. ??She is a 71 year old woman with Stage IA breast cancer, referred by Dr. Farooq??to discuss adjuvant systemic therapy. Ms. Dumas presented on screening mammography November [...] mm hypoechoic shadowing mass. An ultrasound-guided biopsy onDecember 04 found benign breast and adipose tissue. A repeat ultrasound on April 09 showed a stable lef t breast mass. An ultrasound of the left breast here on May 28 showed a 7 x 12 mm irregular hypoechoic mass in the left breast at 9:00, 3 cm from the nipple. An ultrasound-guided biopsy the sameday showed a low grade invasive ductal carcinoma, estrogen receptor strongly positive in greater than 90% of cells, progesterone receptor strongly positive in 11-50% of cells, and Her-2 unamplified, with a Her-2:CEP-17 ratio of 1.2. She underwent a needle localization excision and sentinel node biopsy on July 04, 2017. There was a 6.6 mm low grade (SBR=4) invasive ductal carcinoma with 25 mm ofductal carcinoma in situ ranging from low grade to high grade with necrosis. There was no lymphovascular invasion and the cranial margin was 0.5 mm. One sentinel node was negative. Abimbola has recovered very well from her surgery. She had some post-operative pain in her left breast, but she has had no pain in the left axilla. She has widespread musculoskeletal pain, and the worst sites of pain include the shoulders, lower back, left hip, and knees. She denies a cough, shortness of breath, chest pain, nausea, vomiting, diarrhea, constipation, headaches, double vision, skin rashes, or pain, redness, or swelling in her lower extremities. ??The remainder of her review of systems is negative. ??Her past medical history is significant for a William's esophagus, she is prediabetic, diverticulosis, hyperlipidemia, hypertension, obstructive sleep apnea, and pancreatitis. She had aCVA 15 years ago. Her surgical history includes a benign right-sided breast biopsy 20 years ago, a right hip replacement, a cholecystectomy, and a BASSAM-BSO at age 52. Her sister was diagnosed with lung cancer, but there is no breast or ovarian cancer in her family. She has no family history of venous thrombosis. 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 She had menarche at age 13-14 and menopause at age 52. ??Menopause was complicated by moderate hot flashes and she is unsure as to whether she took estrogen replacement therapy at the time. She denies anycurrent vasomotor symptoms or mood swings. ? On exam, her BMI is 32.9, and her BP is 153/63. ??She has no oral lesions and no cervical or supraclavicular adenopathy. ??Her chest is clear to auscultation, cardiac exam shows a regular rate and rhythm, she has an old 4??cm scar in the upper inner quadrant of the left breast with an underlying soft seroma, and a 4 cm scar in the left axilla with a firmer underlying seroma. There are no other masses within the left or the right breast, and there is no palpable axillary adenopathy on the right.?She has no right upper quadrant pain or hepatomegaly, and she has no pedal edema. ??Labs from June 19, 2017 showed a WBC count of 8.1, Hgb 14.6, Hct 43.0, platelets 304, ANC 5770, Na 144, K 3.7, Cl 102, bicarb 27, BUN 24, creatinine 0.69, Ca 9.7, albumin 4.2, bili 0.4,??alk phos 63, AST 17, and ALT 16. ? Ms. 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 ??She has no clinical evidence of distant metastases, and there is no indication for advanced imaging with a CT, bone scan, or PET. ??Her prognosis is excellent. ??The model at cancermath.net shows a 2.5% 15 year risk of breast cancer mortality without systemic therapy, and a 1.7% 15 year risk of breast cancer mortality with five years of endocrine therapy. ??There would not be an adequate reduction in her risk of breast cancer mortality with the use of chemotherapy to justify the side effects of chemotherapy, and I did not discuss chemotherapy further. ??She would also have a 0.5% per year risk of a second breast over the remainder of her life, so if she survives to age 86 she would have a 7.5% lifetime risk of developing a second breast cancer. ??Five years of endocrine therapy would reduce her 15 year relative risk of developing a second breast cancer by one-third, from 7.5% to 5%. ??She would start endocrine therapy about two weeks after the completion of her course of radiotherapy. ??She would take a five year course of either tamoxifen or anastrozole.? Both tamoxifen and anastrozole would be taken once daily without regards to food. ??We discussed the potential side effects of tamoxifen, which may include a 1% increase in her risk of developing a blood clot in the leg or lung, as well as hot flashes, night sweats, mood swings, weight gain, difficulty sleeping, change in mood, night time leg cramping and an increased risk of developing cataracts. ??We discussed the potential side effects of anastrozole which may include hot flashes, night sweats, mood swings, vaginal dryness, arthralgias, nausea, and loss of bone density. Anastrozole may also increase her cholesterol level by about 10% and it may increase her blood pressure. ??I think tamoxifen would be better tolerated for her because of her widespread arthralgias, and she would not be at risk for developing uterine cancer from tamoxifen. I would therefore recommend that she take tamoxifen. Still the benefit from tamoxifen would be relatively small, and I would not push on in the face of significant toxicities from tamoxifen. ? I then discussed omission of radiotherapy. The Carranza study evaluated women over the age of 70 withStage I breast cancer who were treated with lumpectomy and tamoxifen, and were randomized to radiotherapy or to no radiotherapy. Twelve year followup was published in the Journal of Clinical Oncologyin 2013. Tere found that there was no decrease in breast cancer-specific mortality in the women who did not receive radiotherapy. There was a 2% risk of local recurrence at 12.6 years in the group that received radiotherapy, and a 10% risk of local recurrence at 12.6 years in the group that did not receive radiotherapy. I would extrapolate from this study that the risk of local recurrence without radiotherapy increases by 0.8 % per year of followup; therefore a woman with a ten year life expectancy might face an 8% risk of local recurrence if she elected to omit her radiotherapy. She is a healthy 71 year old, and I believe that her life expectancy is long enough to justify treatment with adjuvant radiotherapy. She may proceed with her radiotherapy, she will meet Dr. Merrill in [facility] next week??and I will contact her during her final week of radiotherapy to review this discussion and to arrange for prescribing endocrine therapy for her. I will see her next in followup in six months and I will coordinate that appointment with her next mammograms and with Dr. Farooq. ??I gave her a note on her AVSsummarizing our discussion, and she has my card so that she may call if she has any questions. Kalyan Damico MD lumber stacker in Hematology-Oncology Cc: Angie Alonzo MD Cc: Ashley Farooq MD Cc: Bethany Merrill MD documented in this encounter Plan of Treatment Not on file documented as of this encounter Visit Diagnoses Diagnosis Malignant neoplasm of upper-inner quadrant of left breast in female, estrogen receptor positive documented in this encounter Care Teams Corn Husker Relationship Specialty Start Date End Date Angie Alonzo MD [address] [place] [address] [address] [place] [address] PCP - General Family Medicine 06/25/17 documented as of this encounter
--- OUTSIDE RECORDS SUMMARY | 2024-03-11 15:17 | XMS_ITS | Encounter Summary ---
Author Organization [facility] Address [facility] [place] [address] Care Team Providers Care Switchboard Operator Assistant Name Role Phone Adis Franklin MD Primary Care Provider [phone] Encounter Details Date Type Department Care Team (Late st Contact Info) Description 06/19/2017 Orders Only [place] [address] [facility] [place] [address] Breast mass Social History Tobacco Use Types Packs/Day Years Used Date Smoking Tobacco: Never Smokeless Tobacco: Never Sex and Gender Information Value Date Recorded Sex Assigned at Not on file Gender Identity Not on file Sexual Orientation Not on file documented as of this encounter Plan of Treatment Not on file documented as of this encounter Results * Mammo Specimen (07/04/2017 3:40 PM EST) Anatomical Region Laterality Modality Breast N/A Mammography Impressions 07/04/2017 3:45 PM EST Positive specimen x-ray as described. Results phoned to the operating surgeon intraoperatively. Narrative 07/04/2017 3:45 PM EST EXAMINATION: Specimen x-ray INDICATION: Intraoperative specimen image for adequacy of lesion and/or clip removal TECHNIQUE: A single projection specimen x-ray from the left breast is obtained superimposed on alphanumeric grid COMPARISON: This is correlated with preoperative imaging FINDINGS: The lesion, clip and intact wire are contained within the specimen. There are no close margins. Ashley Pink MD IMG MAMMO ORDERA CLAUDIA * Mammo [place] Node Injection (07/04/2017 11:37 AM EST) Anatomical Region Laterality Modality Breast N/A Mammography Impressions 07/04/2017 12:16 PM EST Technique: Using sterile technique the left breast was injected with approximately 0.2 milliCuries of Tc-99m ??sulfur colloid administered as split intra-dermal and parenchymal injections. No images were obtained. Impression: Injection for sentinel node biopsy without imaging. The radiotracer injection was administered under the supervision of authorized user Dr. Sj Dumont. Narrative 07/04/2017 12:16 PM EST Examination: NEEDLE LOCALIZATION OF ??left breast residual mass and marker clip Indication: PLEASE NEEDLE LOCALIZE THE LEFT BREAST CANCER. Technique:Informed consent was confirmed and a timeout procedure was performed per protocol. Using sterile technique and local anesthetic ??(less than 5 cc's of 1% lidocaine) a needle localization of the residual mass and marker clip in the left breast was performed from the medial approach with mammographic guidance. The wire was deployed. After confirming satisfactory positioning in orthogonal views the wire was deployed and a final image was obtained. There were no complications. Images were annotated on PACS for the operating surgeon. Procedural attestation: Resident: Nina I was present with the resident for the sawyer component(s) of the procedure and otherwise remained immediately available for the duration of the procedure. I attest to having personally viewed the images/test and approve the above interpretation. MD CHIDI Bustamante * Mammo Needle Localization Left (07/04/2017 11:35 AM EST) Anatomical Region Laterality Modality Breast Left Mammography Impressions 07/04/2017 12:16 PM EST Technique: Using sterile technique the left breast was injected with approximately 0.2 milliCuries of Tc-99m ??sulfur colloid administered as split intra-dermal and parenchymal injections. No images were obtained. Impression: Injection for sentinel node biopsy without imaging. The radiotracer injection was administered under the supervision of authorized user Dr. Sj Dumont. Narrative 07/04/2017 12:16 PM EST Examination: NEEDLE LOCALIZATION OF ??left breast residual mass and marker clip Indication: PLEASE NEEDLE LOCALIZE THE LEFT BREAST CANCER. Technique:Informed consent was confirmed and a timeout procedure was performed per protocol. Using sterile technique and local anesthetic ??(less than 5 cc's of 1% lidocaine) a needle localization of the residual mass and marker clip in the left breast was performed from the medial approach with mammographic guidance. The wire was deployed. After confirming satisfactory positioning in orthogonal views the wire was deployed and a final image was obtained. There were no complications. Images were annotated on PACS for the operating surgeon. Procedural attestation: Resident: Nina I was present with the resident for the sawyer component(s) of the procedure and otherwise remained immediately available for the duration of the procedure. I attest to having personally viewed the images/test and approve the above interpretation. Ashley Pink MD IMG MAMMO ORDERA BLES documented in this encounter Visit Diagnoses Diagnosis Breast mass Lump or mass in breast Breast mass Lump or mass in breast Breast mass Lump or mass in breast Breast mass Lump or mass in breast documented in this encounter Care Teams Switchboard Operator Assistant Relationship Specialty Start Date End Date Adis Franklin MD PCP - General 05/23/10 06/24/17 documented as of this encounter
--- OUTSIDE RECORDS SUMMARY | 2024-03-11 15:17 | XMS_ITS | Encounter Summary ---
Author Organization [facility] Address [facility] [place] [address] Care Team Providers Care Hand Embroiderer Name Role Phone Adis Franklin MD Primary Care Provider [phone] Encounter Details Date Type Department Care Team (Latest Contact Info) Description 05/28/2017 1:21 PM EST Hospital [place] [address] Catherine Ghotra MD [facility] [place] [address] Abnormal finding on breast imaging Discharge Disposition: Home Social History Tobacco Use Types Packs/Day Years Used Date Smoking Tobacco: Never Assessed Sex and Gender Information Value Date Recorded Sex Assigned at Not on file Gender Identity Not on file Sexual Orientation Not on file documented as of this encounter Medications at Time of Discharge Medication Sig Dispensed Refills Start Date End Date MULTIVITAMIN ORAL 1 tablet. 09/01/2012 calcium-vitamin D3 600 mg-5 mcg (200 unit) Tablet 1 tablet. 09/01/2012 documented as of this encounter Plan of Treatment Not on file documented as of this encounter Procedures Procedure Name Priority Date/Time Associated Diagnosis Comments MAMMO DIRECT DIGITAL WITH CAD LEFT Routine 05/28/2017 1:55 PM EST Abnormal finding on breast imaging documented in this encounter Results * Mammo Direct Digital Left (05/28/2017 1:55 PM EST) Anatomical Region Laterality Modality Breast Left Mammography Impressions 05/31/2017 12:48 PM EST Concordant malignant result RECOMMENDATION: Definitive surgical management. Results and recommendations were phoned to the patient. REVIEW PATH CONFERENCE?: No Narrative 05/31/2017 12:48 PM EST LEFT BREAST ULTRASOUND GUIDED VACUUM ASSISTED CORE BIOPSY CLINICAL HISTORY: Suspicious densely shadowing lesion left breast 9:00 radian 3 cm from the nipple. This measures approximately 1 cm in diameter. PROCEDURAL DETAILS: Informed consent was obtained and a time out procedure was performed per protocol. The patient gave permission to proceed. Using sterile technique and local anesthetic (less than 10cc's of 1% lidocaine superficially and less than 20 cc's of 1% lidocaine with epinephrine deep to the dermis) a skin knick was made and a biopsy was performed using ultrasound guidance. Multiple core biopsy specimens were obtained using a 12g vacuum assist device. A Ama marker clip was deployed. A follow-up mammogram was performed in the CC and True Lateral projections and demonstrates the clip in the biopsy bed. COMPLICATIONS: None. PROCEDURAL ATTESTATION: Resident: None I performed the procedure without a resident. IMAGING DIFFERENTIAL DIAGNOSIS: Invasive carcinoma, focal fibrosis PATHOLOGIC DIAGNOSIS: Invasive carcinoma Catherine Ghotra MD IMG MAMMO ORDERABLES documented in this encounter Visit Diagnoses Diagnosis Abnormal finding on breast imaging Other (abnormal) findings on radiological examination of breast documented in this encounter Care Teams Hand Embroiderer Relationship Specialty Start Date End Date Adis Franklin MD PCP - General 05/23/10 06/24/17 documented as of this encounter
--- OUTSIDE RECORDS SUMMARY | 2024-03-11 15:17 | XMS_ITS | Encounter Summary ---
Author Organization [facility] Address [facility] [place] [address] Care Team Providers Care Heating And Cooling Systems Engineer Name Role Phone Angie Alonzo MD Primary Care Provider [phone] Encounter Details Date Type Department Care Team (Late st Contact Info) Description 07/04/2017 10:30 AM [facility] Hospital [place] [address] Ashley Farooq MD [facility] [place] [address] Breast mass Discharge Disposition: Home Social History Tobacco Use [...] mcg (200 unit) Tablet 1 tablet. 09/01/2012 pantoprazole (PROTONIX) 20 mg Tablet, Delayed Release (E.C.) Take 20 mg by mouth daily. atorvastatin (LIPITOR) 40 mg Tablet Take 40 mg by mouth daily. blood-glucose meter (FREESTYLE) Kit 1 each by [facility].(Non-Drug; Combo Route) route as needed for Other. aspirin 81 mg Tablet, Chewable Take 81 mg by mouth daily. potassium chloride (KLOR-CON) [...] Take 50 mg by mouth daily. 03/09/2019 CALCIUM CITRATE/VITAMIN D3 (CITRACAL + D ORAL) Take by mouth. multivitamin Capsule Take 1 capsule by mouth daily. 03/09/2019 CALCIUM CARB, CITRATE/VIT D3 (CALCIUM CARB AND CITRATE-VITD3 ORAL) Take by mouth 2 times daily. 06/18/2023 documented as of this encounter Progress Notes * Eder Condon MD - 07/04/2017 9:46 AM EST Pre-procedure note for needle breast biopsies performed in radiology. Procedure date: Today Procedure type: left breast NLOC and sentinel node injection Allergies: Penicillins Medications: Current Outpatient Prescriptions: ??? pantoprazole (PROTONIX) 20 mg Tablet, Delayed [...] blood-glucose meter (FREESTYLE) Kit, 1 each by [facility].(Non-Drug; Combo Route) route as needed forOther., Disp: , Rfl: ??? aspirin 81 mg Tablet, Chewable, Take 81 mg by mouth daily., Disp: , Rfl: ??? CALCIUM CITRATE/VITAMIN D3 (CITRACAL + D ORAL), Take by mouth., Disp: , Rfl: ??? multivitamin Capsule, Take 1 capsule by mouth daily., Disp: , Rfl: ??? CALCIUM CARB, CITRATE/VIT D3 (CALCIUM CARB AND CITRATE-VITD3 ORAL), Take by mouth., Disp: , Rfl: Anticoagulation status: low dose aspirin stopped on: N/A Imaging reviewed and procedural plan approved by Dr. Eder Condon MD documented in this encounter Plan of Treatment Not on file documented as of this encounter Procedures Procedure Name Priority Date/Time Associated Diagnosis Comments MAMMO SENTINEL NODE INJECTION Routine 07/04/2017 11:37 AM EST Breast mass documented in this encounter Results * Mammo [place] Node Injection (07/04/2017 11:37 AM EST) Anatomical [...] the operating surgeon. Procedural attestation: Resident: Nina Partida was present with the resident for the sawyer component(s) of the procedure and otherwise remained immediately available for the duration of the procedure. I attest to having personally viewed the images/test and approve the above interpretation. Ashley Pink MD IMG MAMMO ORDERA BLES documented in this encounter Visit Diagnoses Diagnosis Breast mass Lump or mass in breast documented in this encounter Administered Medications Inactive Administered Medications - up to 3 most recent administrations Medication Order MAR Action Action Date Dose Rate Site technetium (Tc-99m) sulfur colloid injection 1.6 mCi 1.6 mCi, Intradermal, ONCE PRN, 1 dose, Starting on Lawanda 07/04/17 at 1115, Until Lawanda 07/04/17 at 1115, Per Protocol, Routine Given 07/04/2017 11:15 AM EST 1.6 mCi documented in this encounter Care Teams Heating And Cooling Systems Engineer Relationship Specialty Start Date End Date Angie Alonzo MD [address] [place] [address] PCP - General Family Medicine 06/25/17 documented as of this encounter
--- OUTSIDE RECORDS SUMMARY | 2024-03-11 15:17 | XMS_ITS | Encounter Summary ---
Author Organization [facility] Address [facility] [place] [address] Care Team Providers Care Optical Assistant Name Role Phone Angie Alonzo MD Primary Care Provider [phone] Encounter Details Date Type Department Care Team (Late st Contact Info) Description 07/04/2017 10:30 AM [facility] Hospital [place] [address] Ashley Farooq MD [facility] [place] [address] Breast mass Discharge Disposition: Home Social History [...] blood-glucose meter (FREESTYLE) Kit [address] [facility].(Non-Drug; Combo Route) route [...] Name Priority Date/Time Associated Diagnosis Comments MAMMO NEEDLE LOCALIZATION LEFT Routine 07/04/2017 11:35 AM EST Breast mass documented in this encounter Results * Mammo Needle Localization Left (07/04/2017 11:35 [...] MAR Action Action Date Dose Rate Site lidocaine (XYLOCAINE) 10 mg/mL (1 %) injection 10 mg 10 mg, Intradermal, ONCE, 1 dose, On Lawanda 07/04/17 at 1115, Routine Given 07/04/2017 11:00 AM EST 10 mg documented in this encounter Care Teams Optical Assistant Relationship Specialty Start Date End Date Angie Alonzo MD [address] [place] [address] PCP - General Family Medicine 06/25/17 documented as of this encounter
--- OUTSIDE RECORDS SUMMARY | 2024-03-11 15:17 | XMS_ITS | Encounter Summary ---
Author Organization [facility] [place] [address] Care Team Providers Care Horizontal Drill Operator Name Role Phone Adis Franklin MD Primary Care Provider [phone] Encounter Details Date Type Department Care Team (Latest Contact Info) Description 06/19/2017 8:25 AM EST Laboratory Appointment Lab 3L [facility] [place] [address] Malignant neoplasm of left breast in female, [...] Procedure Name Priority Date/Time Associated Diagnosis Comments HEMOGRAM Routine 06/19/2017 8:32 AM EST Malignant neoplasm of left breast in female, estrogen receptor positive, unspecified site of breast DIFFERENTIAL, AUTOMATED Routine 06/19/2017 8:32 AM EST Malignant neoplasm of left breast in female, estrogen receptor positive, unspecified site of breast CBC (WITH DIFF) Routine 06/19/2017 8:32 AM EST Malignant neoplasm of left breast in female, estrogen receptor positive, unspecified site of breast COMPREHENSIVE METABOLIC PANEL Routine 06/19/2017 8:32 AM EST Malignant neoplasm of left breast in female, estrogen receptor positive, unspecified site of breast documented in this encounter Results * Differential, Automated (06/19/2017 8:32 AM EST) Neutrophil % 71.6 % [facility] Neutrophil Absolute 5.77 1.70 - 6.10 x10(3)/[facility] Lymph % 17.6 % [facility] Lymphocytes Abs 1.4 0.9 - 3.2 x10(3)/[facility] Monocyte % 9.1 % [facility] Monocyte Abs 0.7 0.3 - 0.9 x10(3)/[facility] Eos % 0.5 % [facility] Eosinophils Abs 0.0 0.0 - 0.4 x10(3)/[facility] Basophil % 0.7 % [facility] Baso Absolute 0.1 0.0 - 0.1 x10(3)/[facility] Immature Gran % 0.50 % [facility] Comment: Immature granulocytes(IG's)percentage and absolute count will include metamyelocytes, myelocytes, and promyelocytes. Blood smears from CBCs yielding IG's will be scanned manually for concordance. If this scan disagrees with the automated IG or if promyelocytes are noted, a manual differential will be performed. Immature Gran Absolute 0.04 0.00 - 0.04 x10(3)/[facility] Blood specimen (specimen) 06/19/2017 8:32 AM EST 06/19/2017 8:39 AM EST Narrative Resulting Agency Comment Spec In Lab Ashley Pink MD HEMATOLOGY ORDER [facility] [place] [address] * Hemogram (06/19/2017 8:32 AM EST) White Blood Cell 8.1 4.0 - 9.5 x10(3)/[facility] Red Blood Cell 4.81 4.00 - 5.21 x10(6)/[facility] Hemoglobin 14.6 11.7 - 15.5 gm/dL [facility] Hematocrit 43.0 35.7 - 45.8 % [facility] Mean Cell Volume 89.4 82.6 - 94.[address] [facility] Mean Cell Hemoglobin 30.4 27.1 - 32.[address] [facility] Mean Cell Hemoglobin Concentration 34.0 31.7 - 35.0 gm/dL [facility] Platelet 304 145 - 357 x10(3)/[facility] RDW Standard Deviation 43.2 37.0 - 46.[address] [facility] RDW coefficient of variation 13.2 11.5 - 14.1 % [facility] Mean Platelet Volume 8.8 7.6 - 12.[address] [facility] NRBC% auto 0.0 % [facility] NRBC Absolute 0.000 0.000 - 0.000 x10(3)/[facility] Blood specimen (specimen) 06/19/2017 8:32 AM EST 06/19/2017 8:39 AM EST Narrative Resulting Agency Comment Spec In Lab Ashley Pink MD HEMATOLOGY ORDER [facility] [place] [address] * (ABNORMAL) Comprehensive metabolic panel (non-fasting) (06/19/2017 8:32 AM EST) Glucose 140 65 - 199 mg/dL [facility] Comment:Diabetes: >=200 mg/d L plus symptoms Blood Urea Nitrogen 24(H) 8 - 18 mg/dL [facility] Creatinine 0.69(L) 0.70 - 1.20 mg/dL [facility] Sodium 144 135 - 145 mmol/L [facility] [...] mmol/L [facility] Carbon Dioxide 27 22 - 31 mmol/L [facility] Anion Gap 15 5 - 15 mmol/L [facility] Calcium 9.7 8.5 - 10.5 mg/dL [facility] Protein, Total 7.3 6.1 - 8.0 gm/dL [facility] Albumin 4.2 3.2 - 5.2 gm/dL [facility] Aspartate Aminotransferase 17 0 - 30 unit/L [facility] Alanine Aminotransferase 16 0 - 30 unit/L [facility] Alkaline Phosphatase 63 40 - 104 unit/L [facility] Bilirubin, Total 0.4 0.2 - 1.3 mg/dL [facility] Est Glomerular Filtration Rate >60 >=60 [facility] Comment: The reported eGFR should be multiplied by 1.2 for patients. The MDRD is not an appropriate measure of renal function for patients with body mass extremes or in patients with acute kidney failure. http://[employer]OFICIO/DHnkdep http://[employer]/DHMCnkf Blood specimen (specimen) 06/19/2017 8:32 AM EST 06/19/2017 8:39 AM EST Narrative Resulting Agency Comment Spec In Lab Ashley Pink MD CHEMISTRY ORDERA BLES [facility] [place] [id number] documented in this encounter Visit Diagnoses Diagnosis Malignant neoplasm of left breast in female, estrogen receptor positive, unspecified site of breast documented in this encounter Care Teams Horizontal Drill Operator Relationship Specialty Start Date End Date Adis Franklin MD PCP - General 05/23/10 06/24/17 documented as of this encounter
--- OUTSIDE RECORDS SUMMARY | 2024-03-11 15:17 | XMS_ITS | Encounter Summary ---
Author Organization [facility] Address [facility] [place] [address] Care Team Providers Care Medical Management Specialist Name Role Phone Angie Alonzo MD Primary Care Provider [phone] Reason for Visit * Reason Comments Radiation Follow-up Encounter Details Date Type Department Care Team (Late st Contact Info) Description 11/04/2017 2:30 PM EDT Office Visit Radiation Oncology at [address] [phone] Bethany Merrill MD [facility] [place] [address] Malignant neoplasm of left female breast, unspecified estrogen receptor status, unspecified site of breast Social History Tobacco Use Types Packs/Day Years Used Date Smoking Tobacco: Never Smokeless Tobacco: Never Sex and Gender Information Value Date Recorded Sex Assigned at Not on file Gender Identity Not on file Sexual Orientation Not on file documented as of this encounter Last Filed Vital Signs Vital Sign Reading Time Taken Comments Blood Pressure 139/60 11/04/2017 2:37 PM EDT Pulse 78 11/04/2017 2:37 PM EDT Temperature 36.4 ??C (97.6 ??F) 11/04/2017 2:37 PM ED T Respiratory Rate 16 11/04/2017 2:37 PM EDT Oxygen Saturation 98% 11/04/2017 2:37 PM EDT Inhaled Oxygen Concentration - - Weight 94.8 kg (209 lb) 11/04/2017 2:37 PM EDT Height - - Body Mass Index 33.19 07/17/2017 8:46 AM EST documented in this encounter Patient Instructions * Patient Instructions* Bethany Merrill MD - 11/04/2017 2:30 PM EDT Your exam shows that you are healing nicely from radiotherapy & there is no evidence of cancer. You may resume your regular deodorant on your left underarm. You may use a straight/regular razor on your left underarm. You may expose the irradiated area to sun, but it is recommended that you apply sunscreen with an SPF of @ least #45 on the irradiated area prior to exposing it to sun. You may swim in chlorinated water. We will mail you a letter with an appointment for followup with me in 6 months. documented in this encounter Progress Notes * Bethany Merrill MD - 11/04/2017 2:30 PM EDT CC: Sched'd fu s/p xrt completion. HPI: 71 y/o f who completed xrt 2 mos ago (09/02/17) to L breast for breast ca, IDC, low gr, ER+MA+, Her2 neg, s/p lumpectomy & SNB, pT1b pN0, stage I. Since xrt completion, she has started jackson, which she continues. ROS: Skin w/in irrad'd area healing well. Energy level improving; has been out gardening. She has recently been seen by Dr. Alonzo for primary care. Past Medical History: Diagnosis Date ??? Arthritis ??? Diabetes mellitus pre-DM ??? GERD (gastroesophageal reflux disease) ??? Hypertension ??? Stroke Past Surgical History: Procedure Laterality Date ??? BREAST SURGERY R lumpectomy, benign ??? CHOLECYSTECTOMY ??? HYSTERECTOMY oophorectomy ??? ORTHOPEDIC SURGERY R hip ??? PRO ADJ TISS XFER TRUNK 10.1-30 Left 07/04/2017 ADJ.TISSUE TRANSFER, REARRANGEMENT, TRUNK,10.1 TO 30 SQ CM (WRVU 8.78) performed by Ashley Farooq MD at [facility] MAIN OR ??? PRO BX/REMV, LYMPH NODE, DEEP AXILL Left 07/04/2017 BIOPSY OR EXCISION OF LYMPH NODE(S), OPEN, DEEP AXILLARY NODE(S) (WRVU 6.43) performed by Ashley Farooq MD at [facility] MAIN OR ??? PRO INTRAOP SENTINEL LYMPH ID W/DYE INJECTION Left 07/04/2017 INTRAOPERATIVE ID (MAPPING) SENTINEL LYMPH NODE,INCLUDES INJECTION (WRVU 2.5) performed by Ashley Farooq MD at [facility] MAIN OR ??? PRO MASTECTOMY, PARTIAL Left 07/04/2017 MASTECTOMY PARTIAL (WRVU 10.13) performed by Ashley Farooq MD at [facility] MAIN OR R breast lumpectomy 20 yrs ago (benign) Hysterectomy @ age 48 yrs. Your Medications These changes are accurate as of 11/04/17 2:53 PM. If you have any questions, ask your nurse or doctor. Continued medications, unchanged Dose Details aspirin 81 [...] 2 hours before a treatment. Refills: 0 DILTiazem 240 mg Cp24 Commonly known as: CARDIZEM CD Take 240 mg by mouth daily. 240 mg Refills: 0 lisinopril 40 mg Tab Commonly [...] well- developed and well-nourished. No distress. BP 139/60 (Patient Position: Sitting) Pulse 78 Temp 36.4 ??C (97.6 ??F) (Oral) Resp 16 Wt 94.8 kg (209 lb) SpO2 98% BMI 33.19 kg/m2 HENT: Head: Normocephalic and atraumatic. Eyes: Conjunctivae [...] tenderness. Left breast exhibits skin change ( Mild hyperpigmentation, consistent w/expected post xrt change). Left breast exhibits no inverted nipple, no mass, no nipple discharge and no [...] is normal. Judgment and thought contentnormal. A: Healing well post xrt. P: Care of irrad'd skin discussed. Rtc [address] Farooq in December w/mmg. 11/21/17 appt w/Dr. Jeff in Endocrine for eval 2.4 cm thyroid nodule seen in R thyroid lobe on 07/23/17 CTsim, w/08/30/17 US showing 2.1 cm solid R thyroid nodule. 09/10/17 US guided FNA 1.7 cm R thyroid nodule showed atypia of undetermined signficance. documented in this encounter Plan of Treatment Not on file documented as of this encounter Visit Diagnoses Diagnosis Malignant neoplasm of left female breast, unspecified estrogen receptor status, unspecified site of breast documented in this encounter Care Teams Medical Management Specialist Relationship Specialty Start Date End Date Angie Alonzo MD [address] [place] [address] PCP - General Family Medicine 06/25/17 documented as of this encounter
--- OUTSIDE RECORDS SUMMARY | 2024-03-11 15:17 | XMS_ITS | Encounter Summary ---
Author Organization [facility] Address [facility] [place] [address] Care Team Providers Care Nuclear Control Operator Name Role Phone Adis Franklin MD Primary Care Provider [phone] Encounter Details Date Type Department Care Team (Late st Contact Info) Description 06/19/2017 Notes Only Care Management [facility] [place] [address] Hellen Cardozo MSW Social History Tobacco Use Types Packs/Day Years Used Date Smoking Tobacco: Never Smokeless Tobacco: Never Sex and Gender Information Value Date Recorded Sex Assigned at Not on file Gender Identity Not on file Sexual Orientation Not on file documented as of this encounter Progress Notes * Hellen Cardozo MSW - 06/19/2017 3:28 PM EST OFFICE OF CARE MANAGEMENT/CONTINUING BUNGHOLE BORER Reason for referral: Abimbola Dumas is a 71 year old, female who was seen in the multidisciplinary breast cancer clinic for a surgical consult as she was recently diagnosed with ER/FL+, left breast, IDC.After meet with Dr. Farooq, pt has decided to have a lumpectomy/SLNB. Pt may not need radiation but this will be determined after the results of the surgical pathology are known. If pt needs radiation, she would like to have it at the [facility] which is closer to her home. [facility] met with pt to complete a psychosocial assessment and to explain my role in the breast program. Pt wasencouraged to contact me if she has any questions or concerns. Living arrangements/social supports: Pt lives in [place], [place] with her . She has support from her family and is accompanied today by her daughter, and granddaughter. Pt states her son would of accompanied her today, but her daughter was available to come to the visit with her. Employment/Insurance/Finances: Pt is retired and has Medicare A and B as well as supplemental insurance through [facility]. Pt states she has a Part D drug plan. Tobacco/drug/alcohol history: Pt does not smoke and has an occasional drink. Advance Directives: Pt has not completed advance directives and was given information and forms to do so. Pt was told that the Shared Decision Making Department could help her to complete her advancedirectives. Pt was asked to provide copies of her advance directives if she completes them on her own so they can be scanned into her medical record. Adjustment to illness/Mental Health Concerns: Pt states she is not distressed about her breast cancer. She has support from her family and was accompanied to today's visit by her , daughter and granddaughter. CCM reviewed some of the support and services available to pt in the Cancer Center. Plan: CCM will continue to follow pt to assess and assist with their psychosocial needs. [facility] [phone] Pager #[phone] documented in this encounter Plan of Treatment Not on file documented as of this encounter Visit Diagnoses Not on filedocumented in this encounter Care Teams Nuclear Control Operator Relationship Specialty Start Date End Date Adis Franklin MD PCP - General 05/23/10 06/24/17 documented as of this encounter
--- OUTSIDE RECORDS SUMMARY | 2024-03-11 15:17 | XMS_ITS | Encounter Summary ---
Author Organization [facility] Address [facility] [place] [address] Care Team Providers Care Clothing Trades Workers Name Role Phone Angie Alonzo MD Primary Care Provider [phone] Reason for Referral * Diagnostic Test (Routine) - Closed Specialty Diagnoses / Procedures Referred By Mima rivera Referred To Contact Radiology Diagnoses Malignant neoplasm of left female breast, unspecified estrogen receptor status, unspecified site of breast Right thyroid nodule Procedures IR Biopsy Thyroid FNA Bethany Merrill MD [facility] [place] [place] [address] [place] [address] Referral ID Status Reason Start Date Expiration Date V isits Requested Visits Authorized [id number] Closed Specialty Service Requested 09/02/2017 09/02/2018 1 1 Encounter Details Date Type Department Care Team (Late st Contact Info) Description 09/02/2017 Orders Only [place] [address] Bethany Merrill MD [facility] [place] [address] 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 CURRENT TREATMENT DOSE: 42.56 Gy L breast, 52.56 Gy lumpectomy bed L breast ANTICIPATED TOTAL DOSE: 42.56 Gy L breast, 52.56 Gy lumpectomy bed L breast Current # of xrt received: 16 L breast, 20 lumpectomy bed L breast Anticipated total # of xrt txs: 16 L breast, 20 lumpectomy bed L breast Evaluation of port verification films: Approved. For details, see electronic film record in [employer]. Changes in Medical Condition: She is seen today for an unscheduled visit for discussion regarding Rthyroid US result. Pain?: None. Your Medications These changes are accurate as of 09/02/17 9:07 AM. If you have any questions, ask your nurse or doctor. New Medications Dose Details silver sulfADIAZINE 1 % Crea Commonly known as: SILVADENE Apply topically daily. Started by: Bethany Merrill MD Quantity: 400 g Refills: 0 Continued medications, unchanged Dose Details [...] by mouth daily. 40 mg Refills: 0 meTOPROLOL succinate 50 mg Tablet sr Commonly known [...] by mouth daily. 20 mEq Refills: 0 tamoxifen 20 mg Tab Commonly known as: NOLVADEX Take 1 tablet by mouth daily. Start on September 16, 2017. Start taking on: 09/16/2017 20 mg Quantity: 90 tablet Refills: 3 Flu vax: Received this yr. P&SH: Never smoker. Physical Exam: A&Ox3, NAD. Mild erythema L breast w/dusky hyperpigmentation in L inframammary fold, consistent w/impending moist desquamation. Imagin07/23/17 Dx'ic Interp CTsim: No met dz. 2.4 cm hypodense nodule in R thyroid lobe for whichUS rec'd to assess if cyst/solid neoplasm/concern for malignancy. Advanced calcified atherosclerotic dz of coronary arteries, aorta & upper abdominal visceral arteries as far as visualized. 08/30/17 Thyroid US: 2.1 cm solid nodule lower pole R lobe thyroid; bx could be considered. Performance Status: KPS 100%. Response to xrt: As expected. Irradiation Related Symptoms: Skin rxn. Treatment for Symptom Control: Rx for silvadene. Christian's cream. Pain Management: Not needed. Recommendation on Continuing Course of xrt: Cont xrt. We discussed US of thyroid showing R thyroid nodule. Abimbola would like to undergo bx of R thyroid @ -b; ordered. Xrt completed today. Rtc 1-2 mos. Care of irrad'd skin discussed. She has been rx'd jackson by Dr. Damico, to start 09/16/17. Her completed xrt is summarized as follows: Treatment was given from 08/05/17 to 09/02/17. 42.56 Gy in 16 fxs was given to L breast with 6 & 10 MV Xray external beam, followed by volume reduction & 10 Gy/4 fxs to lumpectomy bed with 6 & 10 MV Xray external beam, boosting lumpectomy bed to 52.56 Gy/20 fxs. Deep inspiration breath hold (DIBH) with 3D xrt used throughout treatment. Cc: Dr. Alonzo documented in this encounter Plan of Treatment Not on file documented as of this encounter Results * IR Biopsy Thyroid FNA (09/10/2017 3:01 PM EDT) Anatomical Region Laterality Modality Neck X-Ray Angiograph y Impressions 09/17/2017 3:58 PM EDT Impression: Technically successful sono-guided right thyroid nodule FNA. Resident: Sierra Attending: Rik I performed portions of the procedure, I was present for the entire procedure. Preliminary report signed by: Nellie Esquivel at 09/10/2017 3:55 PM I have personally reviewed the image(s) and the residents interpretation and agree with the findings, NEELIMA JOLLY at 09/17/2017 3:58 PM Narrative 09/17/2017 3:58 PM EDT EXAMINATION: IR BIOPSY THYROID FNA CLINICAL HISTORY: CTsim for xrt plan for breast ca showed R thyroid nodule, confirmed by 08/30/17 US @ [facility].; Exam/Procedure requested: R thyroid nodule FNA. Technique: ??After discussing risks (including infection, hemorrhage), and benefits of the procedure, patient consented to the procedure. The right thyroid nodule was localized with ultrasound. Sterile barrier technique was used throughout the procedure. After sterile preparation overlying skin, 1% lidocaine SQ was administered for anesthesia. A 25 ga ??biopsy needle was advanced under US-guidance into the right thyroid nodule. ??With gentle agitation of the biopsy needle samples were collected via capillary action. 5 FNA biopsies were performed and specimens submitted for pathological analysis. The needle was removed and hemostasis obtained by manual compression. Patient tolerated the procedure well. ?? Post-procedure scan showed no immediate complications. Medications: Lidocaine 1% <10 mL SQ EBL: <5cc Complications: ??No immediate Findings: 1) 1.7 cm well-circumscribed, solid isoechoic right thyroid nodule with peripheral vascularity 2) US-guided FNA of right thyroid nodule 3) No hematoma seen on immediate post-procedure US scan. Procedure Note Neelima Jolly MD - 09/17/2017 EXAMINATION: IR BIOPSY THYROID FNA CLINICAL HISTORY: CTsim for xrt plan for breast ca showed R thyroidnodule, confirmed by 08/30/17 US @ [facility].; Exam/Procedure requested: R thyroid noduleFNA. Technique: After discussing risks (including infection, hemorrhage),and benefits of the procedure, patient consented to the procedure. The right thyroid nodule was localized with ultrasound. Sterile barrier technique was used throughout the procedure. After sterile preparationoverlying skin, 1% lidocaine SQ was administered for anesthesia. A 25 ga biopsyneedle was advanced under US-guidance into the right thyroid nodule. Withgentle agitation of the biopsy needle samples were collected via capillaryaction. 5 FNA biopsies were performed and specimens submitted for pathologicalanalysis. The needle was removed and hemostasis obtained by manual compression.Patient tolerated the procedure well. Post-procedure scan showed no immediate complications. Medications: Lidocaine 1% <10 mL SQ EBL: <5cc Complications: No immediate Findings: 1) 1.7 cm well-circumscribed, solid isoechoic right thyroid nodule with peripheral vascularity 2) US-guided FNA of right thyroid nodule 3) No hematoma seen on immediate post-procedure US scan. IMPRESSION Impression: Technically successful sono-guided right thyroid nodule FNA. Resident: Sierra Attending: Rik I performed portions of the procedure, I was present for the entireprocedure. 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 Dermatitis due to other radiation Malignant neoplasm of left female breast, unspecified estrogen receptor status, unspecified site of breast Right thyroid nodule Nontoxic uninodular goiter Malignant neoplasm of left female breast, unspecified estrogen receptor status, unspecified site of breast Right thyroid nodule Nontoxic uninodular goiter documented in this encounter Care Teams Clothing Trades Workers Relationship Specialty Start Date End Date Angie Alonzo MD [facility] [address] [facility] [address] [place] [address] PCP - General Family Medicine 06/25/17 documented as of this encounter
--- OUTSIDE RECORDS SUMMARY | 2024-03-11 15:17 | XMS_ITS | Encounter Summary ---
Author Organization [facility] Address [facility] [place] [address] Care Team Providers Care Science Specialist Name Role Phone Angie Alonzo MD Primary Care Provider [phone] Encounter Details Date Type Department Care Team (Late st Contact Info) Description 08/19/2017 Orders Only Hematology [place] [address] Kalyan Dmaico MD [facility] [address] HEMATOLOGY/[place] [address] Malignant neoplasm of upper-inner quadrant of left breast in female, estrogen receptor positive Social History Tobacco Use Types Packs/Day Years Used Date Smoking Tobacco: Never Smokeless Tobacco: Never Sex and Gender Information Value Date Recorded Sex Assigned at Not on file Gender Identity Not on file Sexual Orientation Not on file documented as of this encounter Progress Notes * Kalyan Damico MD - 08/19/2017 3:46 PM EST Heme-Onc Staff I spoke with Abimbola today. She will be finishing her adjuvant radiotherapy on September 02. We met on July 17 to discuss the use of adjuvant therapy with tamoxifen, and we discussed the possible side effects, which might include a 1% increase in her risk of developing a blood clot in the leg or lung, aswell as hot flashes, night sweats, mood swings, weight gain, difficulty sleeping, change in mood, ni ght time leg cramping and an increased risk of developing cataracts. She would derive a small reduction in her risk of dying from breast cancer, as well as a small reduction in her risk of developinga second breast cancer primary with the use of endocrine therapy. I think tamoxifen is a better choice for her than anastrozole because of the potential for worsening of her generalized arthralgias on anastrozole. She is willing to take tamoxifen. I sent her a prescription for tamoxifen to [facility], and she will start it on September 16. I will see her next in followup in December, and I will coordinate that appointment with Dr. Farooq and with her mammograms. She knows to contact me in theinterim if she should have any side effects or questions about the tamoxifen. 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
--- OUTSIDE RECORDS SUMMARY | 2024-03-11 15:17 | XMS_ITS | Encounter Summary ---
Author Organization [facility] Address [facility] [place] [address] Care Team Providers Care Coat Operator Insulator Name Role Phone Angie Alonzo MD Primary Care Provider [phone] Encounter Details Date Type Department Care Team (Late st Contact Info) Description 07/04/2017 10:30 AM [facility] Hospital [place] [address] Ashley Farooq MD [facility] [place] [address] Breast mass Discharge Disposition: Home Social History [...] blood-glucose meter (FREESTYLE) Kit 1 each by [facility].(Non-Drug; Combo Route) route [...] Name Priority Date/Time Associated Diagnosis Comments MAMMO SPECIMEN Routine 07/04/2017 3:40 PM EST Breast mass documented in this encounter Results * Mammo Specimen (07/04/2017 [...] margins. Ashley Pink MD IMG MAMMO ORDERA BLES documented in this encounter Visit Diagnoses Diagnosis Breast mass Lump or mass in breast documented in this encounter Care Teams Coat Operator Insulator Relationship Specialty Start Date End Date Angie Alonzo MD [facility] [address] [place] [address] PCP - General Family Medicine 06/25/17 documented as of this encounter
--- OUTSIDE RECORDS SUMMARY | 2024-03-11 15:17 | XMS_ITS | Encounter Summary ---
Author Organization [facility] [place] [address] Care Team Providers Care Corporate Fitness Program Coordinator Name Role Phone Adis Franklin MD Primary Care Provider [phone] Encounter Details Date Type Department Care Team (Late st Contact Info) Description 05/31/2017 Telephone [place] [phone] Dagmar Lin RN Social History Tobacco Use Types Packs/Day Years Used Date Smoking Tobacco: Never Assessed Sex and Gender Information Value Date Recorded Sex Assigned at Not on file Gender Identity Not on file Sexual Orientation Not on file documented as of this encounter Miscellaneous Notes * Telephone Encounter - Dagmar Lin RN - 05/31/2017 4:28 PM EST Comprehensive Breast Program (CBP) Note Reason for call: Contacted patient after Dr. Nielsen informed her that her breast biopsy results indicated she has invasive ductal carcinoma, to introduce her to the CBP. Abimbola Dumas is a 71 y.o. female with newly diagnosed ER/CA+/HER2 brandon pending left breast IDC ([place] breast U/S guided [place]28[place]2017 [place] [facility] Abimbola sounds positive and has support from family. Her and daughter will accompany her to appointments. She appears to be coping well but is anxious to meet with a breast surgeon to determine atreatment plan and to schedule surgery. Abimbola states she had a right breast lumpectomy years ago withbenign findings. She is interested in having a trained volunteer from [employer]'s ([facility]) patient supportcorps accompany her to provider appts. Requested [employer] contact her. Plan: Appointment for surgical consult with a breast surgeon has been scheduled. She was introducedto the CBP and told she would receive information about her diagnosis and treatment for her review (the Breast Cancer Treatment Handbook. She declined the [facility] Early Stage Breast Cancer program). Plan to meet with Abimbola on the day of her consult apt. Addressed her questions and encouraged her to contact me with any additional questions or concerns.She has our contact information. Laterality:Left Is this a recurrence:No Family history of breast cancer:No Family history of ovarian cancer: No Personal history or breast cancer:No Method of detection: Mammogram Method of diagnosis: Ultrasound Core Biopsy documented in this encounter Plan of Treatment Not on file documented as of this encounter Visit Diagnoses Not on filedocumented in this encounter Care Teams Corporate Fitness Program Coordinator Relationship Specialty Start Date End Date Adis Franklin MD PCP - General 05/23/10 06/24/17 documented as of this encounter
--- OUTSIDE RECORDS SUMMARY | 2024-03-11 15:17 | XMS_ITS | Encounter Summary ---
Author Organization [facility] Address [facility] [place] [address] Care Team Providers Care Miller Helper Name Role Phone Adis Franklin MD Primary Care Provider [phone] Encounter Details Date Type Department Care Team (Latest Contact Info) Description 05/28/2017 1:22 PM EST - 05/28/2017 11:59 PM EST Hospital En[place] [address] Mohit Quiles MD [facility] [place] [address] Abnormal finding on breast imaging Discharge Disposition: [...] Name Priority Date/Time Associated Diagnosis Comments MAMMO US BIOPSY VACUUM ASSISTED RIGHT Routine 05/28/2017 1:45 PM EST Abnormal finding on breast imaging SPECIMEN TO PATHOLOGY Routine 05/28/2017 1:45 PM EST SURGICAL PATHOLOGY REPORT Routine 05/28/2017 1:44 PM EST documented in this encounter Results * Mammo Us Vacuum Assisted Biopsy Right (05/28/2017 1:45 PM EST) Anatomical Region Laterality Modality Breast Right Mammography Impressions 05/31/2017 12:48 PM EST Concordant [...] using a 12g vacuum assist device. A [place] marker clip was deployed. A follow-up mammogram was performed in the CC and True Lateral projections and demonstrates the clip in the biopsy bed. COMPLICATIONS: None. PROCEDURAL ATTESTATION: Resident: None I performed the procedure without a resident. IMAGING DIFFERENTIAL DIAGNOSIS: Invasive carcinoma, focal fibrosis PATHOLOGIC DIAGNOSIS: Invasive carcinoma Mohit Quiles MD IMG MAMMO ORDERABL ES * Specimen to Pathology (surgical or derm) (05/28/2017 1:45 PM EST) AP Specimen 05/28/2017 1:45 PM EST 05/28/2017 1:45 PM EST Narrative [facility] - 05/28/2017 1:45 PM EST Specimen requisition ordered. ??Separate Pathology report to follow Mohit Quiles MD PATHOLOGY/CYTOLOGY ORDERABLES [facility] [place] [address] * Surgical Pathology Report (05/28/2017 1:44 PM EST) Final Diagnosis [id number] ? Location: 3L The signing pathologist has (i) examined the relevant preparation(s) for the specimen(s) and (ii) rendered or confirmed the diagnosis(es). . ?Molecular Genetics RESULTS TEST: ??HER2(ERBB2)FISH, Breast METHOD: ??Fluorescence in situ hybridization (FISH) with chromosome 17 centromere (17p11.1-q11.1) probe and a locus specific probe for the HER2 gene locus (17q11.2- q12). SAMPLE ANALYZED: A1-7 RESULT: ?NEGATIVE FOR HER2/FUAD AMPLIFICATION ? TOTAL # SIGNALS/TOTAL # NUCLEI COUNTED FOR HER2 PROBE = 99 ? TOTAL # SIGNALS/TOTAL # NUCLEI COUNTED FOR CEP-17 PROBE = 85 ? HER2 TO CEP-17 RATIO = 1.2 ??(NORMAL RANGE ?<2.0) ? TOTAL # NUCLEI COUNTED = 40 Interpretation: ??Paraffin-embedde d tissue sections were submitted for HER2(ERBB2)gene amplification analysis by FISH. ??Direct analysis was performed using the [employer] Kit. ??Slide adequacy and signal enumeration were evaluated and satisfactory for both control and patient slides. ??A signal ratio derived from the HER2 probe and the CEP-17 centromere probe of ?2.0 is considered positive for HER2 gene amplification. The 2013 ASCO/CAP guideline recommendation for HER2 testing in breast cancer states that samples with a HER2 to CEP-17 ratio of less than 2.0 are non-amplified. Specimens with a HER2 to CEP-17 range of ?2.0 are considered amplified. This test is approved by the U.S. FDA for clinical diagnostic use. Reference: Luis Fernando VILLASENOR et al. Recommendations for human epidermal growth factor receptor 2 testing in breast cancer: [place] Society of Clinical Oncology/College of [place] Pathologists clinical practice guideline update. J Clin Oncol. 2013 May 01. Reviewed by: Lorna Barnes MD Radio Reporter, Molecular Pathology _ Electronically signed by: ??Shannan MARTÍNEZ, Kam Oliveira Verified: ??06/03/2017 ?Pathologist Performed at: ??-[facility] [place]. [place], [place], [place] ?Surgical Pathology DIAGNOSIS Needle biopsies: Left breast. Diagnosis: 1. Invasive ductal carcinoma, low grade. ? 2. 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 Microcalcification s: ??N/A . DIAGNOSIS On A1- ER immunoreactivity: Positive ( ??>90 % cancer cells with immunostaining) Stain intensity: Strong MO immunoreactivity: Positive (11-50% cancer cells with immunostaining) Stain intensity: Strong HER2 FISH: separate report to follow ? *Diagnostic sawyer for hormone receptors (ASCO/CAP GUIDELINES, 2010): ?Negative immunoreactivity: ?? <1% tumor cells with immunostaining ?Positive immunoreactivity: ?? >1% tumor cells with immunostaining Immunohistochemica l assays were performed on paraffin-embedded tissue sections fixed in 10% neutral buffered formalin for 6-72 hours using the polymer system technique with appropriate positive and negative controls. ??The assays were performed according to the utility teller ??'s instructions using Anti-ER (SP1) and Anti-MO (16) antibodies. Electronically signed by: ??Natty Mederos DO Verified: ??05/29/2017 ?Pathologist Performed at: ??-[facility] Dept. of Pathology, [place], [place] CLINICAL INFORMATION Specimen Submitted: A - Left breast vac us guided BX 12g Clinical History: Mass Clinical Diagnosis: CA versus radial scar versus fat necrosis Report to: Adis Franklin MD SPECIMEN PROCESSING A - ??Labeled/Fixative : Left breast VAC US guided biopsy 12g, formalin. Quantity/Size: Six, ranging from 1.2-2.0 cm long, averaging 0.2 cm in diameter. Tissue Description: Soft white-yellow fibroadipose tissue needle core biopsies. Ischemic Time: 4 minutes. Sections/Processin g: (T2) ??amy 06/03/2017 7:45 AM EST [facility] BREAST STRUCTURE / Unknown 05/28/2017 1:44 PM EST 05/28/2017 1:44 PM EST Mohit Quiles MD PATHOLOGY/CYTOLOGY ORDERABLES [facility] [place] [phone] documented in this encounter Visit Diagnoses Diagnosis Abnormal finding on breast imaging Other (abnormal) findings on radiological examination of breast documented in this encounter Administered Medications Inactive Administered Medications - up to 3 most recent administrations Medication Order MAR Action Action Date Dose Rate Site lidocaine (XYLOCAINE) 10 mg/mL (1 %) injection 10 mg 10 mg, Intradermal, ONCE, 1 dose, On Sat05/28/17 at 1345, Routine Given 05/28/2017 1:37 PM EST 10 mg documented in this encounter Care Teams Miller Helper Relationship Specialty Start Date End Date Adis Franklin MD PCP - General 05/23/10 06/24/17 documented as of this encounter
--- OUTSIDE RECORDS SUMMARY | 2024-03-11 15:17 | XMS_ITS | Encounter Summary ---
Author Organization [facility] Address [facility] [place] [address] Care Team Providers Care International Relations Professor Name Role Phone Adis Franklin MD Primary Care Provider [phone] Encounter Details Date Type Department Care Team (Latest Contact Info) Description 05/20/2017 3:27 PM EST - 05/20/2017 11:59 PM EST Hospital [place] [address] Discharge Disposition: Home Social History Tobacco Use [...] Procedure Name Priority Date/Time Associated Diagnosis Comments SURGICAL PATHOLOGY REPORT Routine 05/20/2017 10:10 AM EST documented in this encounter Results * Surgical Pathology Report (05/20/2017 10:10 AM EST) Final Diagnosis [id number] ? Location: OPW The signing pathologist has (i) examined the relevant preparation(s) for the specimen(s) and (ii) rendered or confirmed the diagnosis(es). . ?Surgical Pathology DIAGNOSIS CONSULTATION CASE Needle biopsies: ?Left breast Diagnosis: ?Scant benign breast and adipose tissue (see Discussion) Microcalcificatio ns: ??N/A Electronically signed by: ??Hernandez MARTÍNEZ, Román Kruger Verified: ??05/21/2017 ?Pathologist Performed at: ??-[facility] Dept. of Pathology, [place], [place] DISCUSSION Definitive lesional tissue is not identified; clinical and radiologic correlation is recommended. CLINICAL INFORMATION Specimen Submitted: CONSULTATION CASE A - 2 slide(s) labeled [id number], collection date 12/04/2016. [id number] Report to: [facility] Surgical Pathology Department [facility], [facility], 2nd Floor [address], [place] ??[address] [address] [facility] ([facility]) pathology slide(s) are reviewed. ??Refer to Diagnosis and Specimen Submitted for specific case information. For the full text of the [facility] report(s) please refer to Non- Documentation Pathology in the electronic health record (eDH). 05/21/2017 2:23 PM EST [facility] Consult Case 05/20/2017 10:1 0 AM EST 05/20/2017 10:10 AM EST Camryn Roberts MD PATHOLOGY/CYTOLOGY ORDERABLES [facility] [place] [address] documented in this encounter Visit Diagnoses Not on filedocumented in this encounter Care Teams International Relations Professor Relationship Specialty Start Date End Date Adis Franklin MD PCP - General 05/23/10 06/24/17 documented as of this encounter
--- OUTSIDE RECORDS SUMMARY | 2024-03-11 15:17 | XMS_ITS | Encounter Summary ---
Author Organization [facility] Address [facility] [place] [place] [address] Care Team Providers Care Configuration Developer Name Role Phone Adis Franklin MD Primary Care Provider Encounter Details Date Type Department Care Team (Late st Contact Info) Description 05/21/2017 External [place] [address] Provider, Scanning Social History Tobacco Use Types [...] Priority Date/Time Associated Diagnosis Comments SURGICAL PATHOLOGY SCAN Routine 05/21/2017 documented in this encounter Results * Scan Doc: Surgical Pathology (05/21/2017) Camryn Roberts MD MEDIA MGR SCAN EXT ORDR/RSLT documented in this encounter Visit Diagnoses Not on filedocumented in this encounter Care Teams Configuration Developer Relationship Specialty Start Date End Date Adis Franklin MD PCP - General 05/23/10 06/24/17 documented as of this encounter
--- OUTSIDE RECORDS SUMMARY | 2024-03-11 15:17 | XMS_ITS | Encounter Summary ---
Author Organization [facility] Address [facility] [place] [address] Care Team Providers Care Clay Dry Press Mixer Operator Name Role Phone Angie Alonzo MD Primary Care Provider [phone] Encounter Details Date Type Department Care Team (Latest Contact Info) Description 07/23/2017 11:30 AM EST Ancillary Appointment Radiation Oncology at [address] [phone] Bethany Merrill MD [facility] [place] [address] Malignant neoplasm of left female breast, unspecified estrogen receptor status, unspecified site of breast Social History Tobacco Use Types Packs/Day Years Used Date Smoking Tobacco: Never Smokeless Tobacco: Never Sex and Gender Information Value Date Recorded Sex Assigned at Not on file Gender Identity Not on file Sexual Orientation Not on file documented as of this encounter Patient Instructions * Patient Instructions* Mayra Glass RN - 07/23/2017 11:30 AM EST Information for Patients receiving radiation therapy to the Breast Approximately two weeks after your first treatment, you may begin to experience side effects causedby the radiation. These effects may continue throughout the treatment period and not start improving until 1-2 weeks after treatment is completed. Your doctor will tell you which side effects you aremost likely to experience, when you will notice them and how long they might last. It is important to follow the appropriate instructions to minimize your discomfort. Skin Care ??? Wash skin in the treatment field with lukewarm water and mild or moisturizing, unscented soap daily. Blot skin dry with a soft towel. ??? Do not apply any ointment, salve, deodorant, perfume, cologne, cosmetic or self-remedy to the treatment area while you are undergoing radiation and for 1-2 weeks following treatment. An all natural deodorant with no aluminum can be used if necessary. ??? Moisturizing cream will be provided for you. This may be used in the treatment area once daily beginning on your first treatment day. Do not apply 2 hours before your radiation treatments. As dryness/redness develop you can use this more often. ??? Do not rub or scratch the skin in the treatment field. This includes shaving unless you use an electric razor. If your skin becomes dry or itchy, tell your nurse or doctor. If necessary, your doctor may order a medication specifically for this problem. ??? Do not use hot water bottles, heating lights, electric heating pads, or hot packs to the treatment area. ??? Keep treated areas out of the sun throughout the treatment period. Be careful of sun exposure to the treatment field for one year following treatment. Please use SPF> 30 to all exposed areas of skin and limit sun exposure. ??? Avoid tight fitting clothes. We would prefer that you wear a cotton t-shirt instead of a bra. If you are unable to go without a bra please wear a soft cotton bra without underwire. ??? Examine your skin in the treatment area daily and watch for changes. If you cannot reach the whole treatment field ask a family member to look at it and apply cream as needed. Be careful to keep the area under your breast clean and dry as this area can get irritated first. ??? You will meet with your nurse and doctor weekly. They will check your skin and help you with any side effects you are having. Please ask to see the nurse if you have concerns in between these days. ??? During the last weeks of treatment you may notice some peeling of skin and/or a moist reaction.Be sure to let us know if this happens so we can provide you with further skin care instructions.. ??? Continue to stay active, walk daily, eat healthy foods and drink several glasses of water each day. Fatigue You may notice that you feel unusually tired towards the end of treatment. This is not unusual. We recommend that you pace your activities and plan for rest periods to avoid becoming over-tired. Feel free to direct any questions or concerns you may have related to your treatment to your nurse or doctor. [facility] Radiation Oncology Our normal business hours are: Saturday - Saturday 8 AM to 5 PM [place], [place], [place] For emergent situations after hours please call for either location and ask for the Radiation Oncologist financial services education consultant. documented in this encounter Progress Notes * Mayra Glass RN - 07/23/2017 11:30 AM EST Radiation Oncology Simulation Note Abimbola Dumas is here for radiation planning , undergoing a simulation to the left breast for breast cancer treatment . Usual radiation oncology routines and purpose of on treatment visits were explained. Jeans cream provided and instructions for use reviewed Anticipatory Guidance: Please see AVS. Barriers to Treatment/ Compliance issues identified: None identified Patient confirms they can have no difficulties lying flat. pre- medication plan made: none needed. Referrals: * Bethany Merrill MD - 07/23/2017 11:30 AM EST Here for sim. Sim: Breast bd immobilization; flat bbs on L breast lumpectomy scar; CT through chest showed heart to approach chest wall & so she was then instructed in deep inspiration breath hold (DIBH) &2nd CT done w/DIBH; 3D xrt planned. She tolerated sim well, w/o problem. Tx Plan: 3D xrt. Start xrt 08/05/17. documented in this encounter Plan of Treatment Not on file documented as of this encounter Visit Diagnoses Diagnosis Malignant neoplasm of left female breast, unspecified estrogen receptor status, unspecified site of breast documented in this encounter Care Teams Clay Dry Press Mixer Operator Relationship Specialty Start Date End Date Angie Alonzo MD [address] [place] [address] PCP - General Family Medicine 06/25/17 documented as of this encounter
--- OUTSIDE RECORDS SUMMARY | 2024-03-11 15:17 | XMS_ITS | Encounter Summary ---
[facility] Address [facility] [place] [address] Care Team Providers Care Chargemaster Analyst Name Role Phone Angie Alonzo MD Primary Care Provider [phone] Encounter Details Date Type Department Care Team (Late st Contact Info) Description 09/06/2017 [place] [address] Chintan León MD [facility] [address] RADIOLOGY DEPT [place] [id number] Coagulopathy Social History Tobacco Use Types Packs/Day Years Used Date Smoking Tobacco: Never Smokeless Tobacco: Never Sex and Gender Information Value Date Recorded Sex Assigned at Not on file Gender Identity Not on file Sexual Orientation Not on file documented as of this encounter Progress Notes * Chintan León MD - 09/06/2017 7:59 AM EST Images from the original note were not included. VASCULAR AND INTERVENTIONAL RADIOLOGY FOCUSED H&P and PRE-PROCEDURE NOTE: PCP: Angie Alonzo MD Referring Physician: No ref. provider found Planned Procedure: Thyroid FNA Procedure Indication: Hx of breast cancer with a right thyroid nodule Presenting Diagnosis/ Complaint: Abimbola Dumas is a 71 y.o. female with PMH of breast cancer, with a recently seen right thyroid nodule on rad onc chest CT. Follow up ultrasound shows solid appearing nodule which is amendable to US guided FNA. Past Medical/Surgical History: Patient Active Problem List Diagnosis Code ??? Malignant neoplasm of upper-inner quadrant of left breast in female, estrogen receptor [id number], Z17.0 Past Medical History: Diagnosis Date ??? Arthritis [...] 8.78) performed by Ashley Farooq MD at [facility] MAIN OR ??? PRO BX/REMV, LYMPH NODE, DEEP AXILL Left 07/04/2017 BIOPSY OR EXCISION OF LYMPH NODE(S), OPEN, DEEP AXILLARY NODE(S) (WRVU 6.43) performed by Ashley Farooq MD at [facility] MAIN OR ??? PRO INTRAOP SENTINEL LYMPH ID W/DYE INJECTION Left 07/04/2017 INTRAOPERATIVE ID (MAPPING) SENTINEL LYMPH NODE,INCLUDES INJECTION (WRVU 2.5) performed by Ashley Farooq MD at [facility] MAIN OR ??? PRO MASTECTOMY, PARTIAL Left 07/04/2017 MASTECTOMY PARTIAL (WRVU 10.13) performed by Ashley Farooq MD at [facility] MAIN OR Medications: Current Outpatient Prescriptions on File Prior to Visit Medication Sig Dispense Refill ??? silver sulfADIAZINE (SILVADENE) 1 % Cream Apply topically daily. 400 g 0 ??? [START ON 09/16/2017] tamoxifen (NOLVADEX) 20 mg Tablet Take 1 tablet by mouth daily. Start on September 16, 2017. (Patient not taking: Reported on 08/27/2017) 90 tablet 3 ??? EMOLLIENT BASE (CREAM BASE TOP) Apply topically. Jeans Cream. Apply to area of radiation twice a day but no less than 2 hours before a treatment. ??? METHYLCELLULOSE (CITRUCEL ORAL) Take by mouth daily as needed. ??? pantoprazole (PROTONIX) 20 mg Tablet, Delayed Release (E.C.) Take 20 mg by mouth daily. ??? potassium chloride (KLOR-CON) 20 mEq Packet Take 20 mEq by mouth daily. ??? lisinopril (PRINIVIL;ZESTRIL) 40 mg Tablet Take 40 mg by mouth daily. ??? DILTiazem (CARDIZEM CD) 240 mg Capsule, Sust. Release 24 hr Take 240 mg by mouth daily. ??? chlorthalidone (HYGROTEN) 25 mg Tablet Take 25 mg by mouth daily. ??? atorvastatin (LIPITOR) 40 mg Tablet Take 40 mg by mouth daily. ??? meTOPROLOL succinate (TOPROL-XL) 50 mg Tablet Sustained Release 24 hr Take 50 mg by mouth daily. ??? blood-glucose meter (FREESTYLE) Kit 1 each by [facility]Non-Drug; Combo Route) route as needed for Other. ??? aspirin 81 mg Tablet, Chewable Take 81 mg by mouth daily. ??? multivitamin Capsule Take 1 capsule by mouth daily. ??? CALCIUM CARB, CITRATE/VIT D3 (CALCIUM CARB AND CITRATE-VITD3 ORAL) Take by mouth. No current facility-administered medications on file prior to visit. Allergies: Penicillins Labs: Lab Results Component Value Date WBC 8.1 06/19/2017 HCT 43.0 06/19/2017 PLATELET 304 06/19/2017 BUN 24 (H) 06/19/2017 CREATININE 0.69 (L) 06/19/2017 ALKPHOS 63 06/19/2017 AST 17 06/19/2017 ALBUMIN 4.2 06/19/2017 BILITOT 0.4 06/19/2017 ALT 16 06/19/2017 PROT 7.3 06/19/2017 Imaging: Assessment/Plan: 71 y.o. female with PMH of breast cancer, with a solid appearing right thyroid nodule on CT and US. Patient presents for US guided FNA of the right thyroid nodules. Labs to be performed day of procedure: Platelet count, INR Medication to STOP: None Sedation: Local only Planned access site: Right lobe Position: Supine Consent: Pending Procedure was approved by Dr. Radha León MD (Pager #[phone]) 09/06/2017 documented in this encounter Plan of Treatment Not on file documented as of this encounter Results * Platelet count (09/10/2017 1:17 PM EDT) Platelet 297 145 - 357 x10(3)/mc L [facility] Immature Plt % 1.0 0.0 - 7.4 % [facility] Comment: Limitation of the Immature Platelet Fraction (IPF)-May be less reliable when the platelet count is less than 36e230/uL due to statistical imprecision. The IPF value [...] in a decreased state of production. References: [employer] The Clinical Value of the Immature Platelet Fraction (IPF) in Cell Recovery Document Number 10-1143 11/2010 [employer] The Role of the Immature Platelet Fraction (IPF) in the Differential Diagnosis of Thrombocytopenia, Document [id number] V05 P011/11 Blood specimen (specimen) 09/10/2017 1:17 PM EDT 09/10/2017 1:23 PM EDT Narrative Resulting Agency Comment Spec In Lab Tutu Garcia MD HEMATOLOGY ORDERABLE S [facility] [place] [address] * Prothrombin Time (09/10/2017 1:17 PM EDT) Prothrombin Time 12.9 11.8 - 14.0 sec [facility] International Normalization Ratio 1.0 0.9 - 1.1 [facility] Comment: An INR <2.0 indicates adequate procoagulant activity for hemostasis in most patients without underlying bleeding disorders, though the INR may not adequately reflect hemostatic capacity in patients with liver disease and synthetic impairment. The recommended target INR range for therapeutic anticoagulation is 2.0 ? 3.0 for most applications, though lower and higher ranges may be appropriate depending on clinical circumstances. Blood specimen (specimen) 09/10/2017 1:17 PM EDT 09/10/2017 1:23 PM EDT Narrative Resulting Agency Comment Spec In Lab Tutu Garcia MD HEMATOLOGY ORDERABLE S [facility] [place] [address] documented in this encounter Visit Diagnoses Diagnosis Coagulopathy Other and unspecified coagulation defects documented in this encounter Care Teams Chargemaster Analyst Relationship Specialty Start Date End Date Angie Alonzo MD [facility] [address] [place] [address] PCP - General Family Medicine 06/25/17 documented as of this encounter
--- OUTSIDE RECORDS SUMMARY | 2024-03-11 15:17 | XMS_ITS | Encounter Summary ---
Author Organization [facility] Address [facility] [place] [address] Care Team Providers Care Microwave Radio Technician Name Role Phone Adis Franklin MD Primary Care Provider [phone] Encounter Details Date Type Department Care Team (Late st Contact Info) Description 05/30/2017 Orders Only [place] [address] Ashley Farooq MD [facility] [place] [address] Malignant neoplasm of left breast in female, [...] as of this encounter Results * (ABNORMAL) Comprehensive metabolic panel (non-fasting) (06/19/2017 8:32 AM EST) Glucose 140 65 - 199 mg/dL [facility] Comment:Diabetes: >=200 mg/d L plus symptoms Blood Urea Nitrogen 24(H) 8 - 18 mg/dL [facility] Creatinine 0.69(L) 0.70 - 1.20 mg/dL [facility] Sodium 144 135 - 145 mmol/L [facility] Potassium 3.7 3.5 - 5.0 mmol/L [facility] Comment: Please note: ??Patients with WBC >100,000 may have falsely elevated Potassium levels. ??For accurate Potassium quantification in these patients send serum separator tube (gold top) for subsequent determinations. ??Contact the Clinical Chemistry Laboratory if there are any questions. Chloride 102 98 - 107 mmol/L [facility] Carbon Dioxide 27 22 - 31 mmol/L [facility] Anion Gap 15 5 - 15 mmol/L [facility] Calcium 9.7 8.5 - 10.5 mg/dL [facility] Protein, Total 7.3 6.1 - 8.0 gm/dL [facility] Albumin 4.2 3.2 - 5.2 gm/dL [facility] Aspartate Aminotransferase 17 0 - 30 unit/L [facility] Alanine Aminotransferase 16 0 - 30 unit/L [facility] Alkaline Phosphatase 63 40 - 104 unit/L [facility] Bilirubin, Total 0.4 0.2 - 1.3 mg/dL [facility] Est Glomerular Filtration Rate >60 >=60 [facility] Comment: The reported eGFR should be multiplied by 1.2 for patients. The MDRD is not an appropriate measure of renal function for patients with body mass extremes or in patients with acute kidney failure. [email or web address] [email or web address] Blood specimen (specimen) 06/19/2017 8:32 AM EST 06/19/2017 8:39 AM EST Narrative Resulting Agency Comment Spec In Lab Ashley Pink MD CHEMISTRY ORDERA BLES [facility] [place] [phone] documented in this encounter Visit Diagnoses Diagnosis Malignant neoplasm of left breast in female, estrogen receptor positive, unspecified site of breast documented in this encounter Care Teams Microwave Radio Technician Relationship Specialty Start Date End Date Adis Franklin MD PCP - General 05/23/10 06/24/17 documented as of this encounter
--- OUTSIDE RECORDS SUMMARY | 2024-03-11 15:17 | XMS_ITS | Encounter Summary ---
Author Organization [facility] Address [facility] [place] [address] Care Team Providers Care Stand Up Comedian Name Role Phone Angie Alonzo MD Primary Care Provider [phone] Encounter Details Date Type Department Care Team (Late st Contact Info) Description 07/17/2017 8:45 AM EST Office Visit Hematology and Oncology at [facility] [place], operated by [facility] [address] [facility] [place] [place] [address] Malignant neoplasm of upper-outer quadrant of left [...] Sign Reading Time Taken Comments Blood Pressure 153/63 07/17/2017 8:46 AM EST Pulse 70 07/17/2017 8:46 AM EST Temperature 36.5 ??C (97.7 ??F) 07/17/2017 8:46 AM ES T Respiratory Rate 18 07/17/2017 8:46 AM EST Oxygen Saturation 99% 07/17/2017 8:46 AM EST Inhaled Oxygen Concentration - - Weight 93.4 kg (206 lb) 07/17/2017 8:45 AM EST Height 169 cm (5' 6.54) 07/17/2017 8:46 AM EST Body Mass Index 32.72 07/17/2017 8:45 AM EST documented in this encounter Progress Notes * Ashley Farooq MD - 07/17/2017 8:45 AM EST Comprehensive Breast Program Surgical Oncology Postop Visit Reason for Visit: Abimbola Dumas returns for postoperative visit. s/p PM, oncoplasty and sentinel node biopsy Breast Cancer Summary Left breast IDC s/p PM and SLNB and oncoplasty Date: 07/04/17 0.6 cm invasive, 2.5 DCIS, mixed Grade. Negative margins. Closest invasive 6mm cranial. Closest DCIS 0.5mm cranial 0 of 1 LNs positive cells,, ER+/NC+, [id number]-, pTNM: ---(m)T1b N0 (AJCC, 7th edition, 2010) Radiation: pending consultation (Dr. Merrill, [facility]) Chemo: NA Receptor targeted therapy: pending consultation, Dr Damico Overall Grade: ?? 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 Some discomfort in axilla but improving. No redness. No fever or chills. Current Outpatient Prescriptions on File Prior to Visit Medication Sig Dispense Refill ??? pantoprazole (PROTONIX) 20 mg Tablet, Delayed [...] (FREESTYLE) Kit 1 each [place] [facility]Non-Drug; Combo Route) route as needed for Other. ??? aspirin 81 mg Tablet, Chewable Take 81 mg by mouth daily. ??? CALCIUM CITRATE/VITAMIN D3 (CITRACAL + D ORAL) Take by mouth. ??? multivitamin Capsule Take 1 capsule by mouth daily. ??? CALCIUM CARB, CITRATE/VIT D3 (CALCIUM CARB AND CITRATE-VITD3 ORAL) Take by mouth. No current facility-administered medications on file prior to visit. Allergies as of 07/17/2017 - Review Complete 07/17/2017 Allergen Reaction Noted ??? Penicillins 06/19/2017 PE: Abimbola has a well-healed incision on the left inner breast with minimal post-op changes at the site ofpartial mastectomy Axilla has a well healed incision and is otherwise negative. Small seroma. No erythema Arm has full range of motion without edema. Imp: Abimbola Dumas is a 71 y.o. female with PMH pre DM, stroke, HTN who had a mammogram left breast cancer IDC and DCIS ER+NC+HER2 neg s/p PM and oncolplasty and SLNB . Stage T1bN0. Overall doing well. Margins negative. DCIS was not contiguous. Closest margin was low grade, 0.5mm. Do not recommend further excision, but suggest radiation therapy. Plan: - Return in 6 months for CBE - New baseline mammogram in 6 months - Medical oncology consultation and treatment : Dr. Gonzalez - Radiation oncology consultation and treatment: Dr. Desirae Farooq MD Surgical Oncology documented in this encounter Plan of Treatment Not on file documented as of this encounter Visit Diagnoses Diagnosis Malignant neoplasm of upper-outer quadrant of left breast in female, estrogen receptor positive documented in this encounter Care Teams Stand Up Comedian Relationship Specialty Start Date End Date Angie Alonzo MD [address] [place] [address] PCP - General Family Medicine 06/25/17 documented as of this encounter
--- OUTSIDE RECORDS SUMMARY | 2024-03-11 15:17 | XMS_ITS | Encounter Summary ---
Author Organization [facility] Address [facility] [place] [address] Care Team Providers Care Supervisor Floor Assembly Name Role Phone Angie Alonzo MD Primary Care Provider [phone] Encounter Details Date Type Department Care Team (Late st Contact Info) Description 08/15/2017 11:45 AM EST Office Visit Radiation Oncology at [address] [phone] Iain Link MD [address] [place] [address] [place] [address] Malignant neoplasm of upper-inner quadrant of left female breast, unspecified estrogen receptor status Social History Tobacco Use Types Packs/Day Years Used Date Smoking Tobacco: Never Smokeless Tobacco: Never Sex and Gender Information Value Date Recorded Sex Assigned at Not on file Gender Identity Not on file Sexual Orientation Not on file documented as of this encounter Last Filed Vital Signs Vital Sign Reading Time Taken Comments Blood Pressure 149/65 08/15/2017 11:00 AM EST Pulse 65 08/15/2017 11:00 AM EST Temperature 36.8 ??C (98.2 ??F) 08/15/2017 11:[address] Respiratory Rate 16 08/15/2017 11:00 AM EST Oxygen Saturation 99% 08/15/2017 11:00 AM EST Inhaled Oxygen Concentration - - Weight - - Height - - Body Mass Index - - documented in this encounter Progress Notes * Iain Link MD - 08/15/2017 11:45 AM EST Images from the original note were not included. Radiation Oncology Weekly Treatment Assessment IDENTIFIERS: Patient name: Abimbola Dumas Date of : 1945 Diagnosis: Malignant neoplasm of upper-inner quadrant of left breast in female, estrogen receptor positive Staging form: Breast, AJCC 7th Edition - Clinical stage from 07/01/2017: Stage IA (T1c, N0, M0) - Signed by Kalyan Damico MD on 07/01/2017 - Pathologic stage from 07/15/2017: Stage IA (T1b, N0, cM0) - Signed by Kalyan Damico MD on 07/15/2017 PROGRESS NOTE: Abimbola Dumas is a 71 y.o. woman with above diagnosis receiving post-operative radiation therapy directed at her LEFT breast at [facility] radiation oncology facility under the direction of Dr. Bethany Merrill. She was seen today for her weekly OTV. Overall she feels well. TREATMENT PROGRESS: Plan ID Energy Fractions Dose per Fraction (cGy) Total Dose Delivered (cGy) LT BREAST_FiF 10X/6X 266 2,128 EXAM: AAOx3 Comfortable, NAD COMMON TOXICITY GRADING: Dermatitis: Grade 0 (none) IMPERESSION/PLAN: Tolerating LEFT breast radiation therapy without incident. Reviewed expectations and plan. PLAN: 1. Continue radiation therapy as planned. 2. May take Tylenol or Ibuprofen for chronic RIGHT shoulder pain if needed to tolerate treatment position. IAIN LINK MD 08/15/2017 documented in this encounter Plan of Treatment Not on file documented as of this encounter Visit Diagnoses Diagnosis Malignant neoplasm of upper-inner quadrant of left female breast, unspecified estrogen receptor status documented in this encounter Care Teams Supervisor Floor Assembly Relationship Specialty Start Date End Date Angie Alonzo MD [address] [place] [address] PCP - General Family Medicine 06/25/17 documented as of this encounter
--- OUTSIDE RECORDS SUMMARY | 2024-03-11 15:17 | XMS_ITS | Encounter Summary ---
Author Organization [facility] Address [facility] [place] [address] Care Team Providers Care Informatics Application Analyst Name Role Phone Angie Alonzo MD Primary Care Provider [phone] Reason for Visit * Consultation (Routine) - Closed Specialty Diagnoses / Procedures Referred By Mima rivera Referred To Contact Endocrinology Diagnoses Thyroid nodule Malignant neoplasm of left female breast, unspecified estrogen receptor status, unspecified site of breast Bethany Merrill MD [facility] [place] [address] [facility] Endocrinology [address] [place] [address] Referral ID Status Reason Start Date Expiration Date V isits Requested Visits Authorized [id number] Closed Consult, Test & Treat 09/18/2017 09/18/2018 1 1 Encounter Details Date Type Department Care Team (Late st Contact Info) Description 11/21/2017 9:00 AM EDT Office [place] [phone] Hira Jeff [facility] [place] [address] Thyroid nodule Social History Tobacco Use Types Packs/Day Years Used Date Smoking Tobacco: Never Smokeless Tobacco: Never Sex and Gender Information Value Date Recorded Sex Assigned at Not on file Gender Identity Not on file Sexual Orientation Not on file documented as of this encounter Last Filed Vital Signs Vital Sign Reading Time Taken Comments Blood Pressure 158/71 11/21/2017 9:07 AM EDT Pulse 73 11/21/2017 9:07 AM EDT Temperature - - Respiratory Rate - - Oxygen Saturation - - Inhaled Oxygen Concentration - - Weight 95.3 kg (210 lb) 11/21/2017 9:07 AM EDT Height 167.6 cm (5' 6) 11/21/2017 9:07 AM EDT Body Mass Index 33.89 11/21/2017 9:07 AM EDT documented in this encounter Patient Instructions * Patient Instructions* Hira Jeff DO - 11/21/2017 9:00 AM EDT FINE NEEDLE BIOPSY OF THYROID PATIENT INSTRUCTION SHEET You have had a fine needle biopsy of your thyroid gland. Most patients undergoing this procedure experience little or no discomfort afterward. A small amount of bruising or swelling is not unusual after the biopsy. To reduce any post-biopsy pain we suggest acetaminophen (Tylenol) 500mg, one or two tablets every six hours with food until you are comfortable. Application of a warm pack to the area may reduce pain. You may use an ice pack to reduce any minor swelling on the day of the procedure. If swelling occurs that is unrelieved by ice and is also causing difficulty with swallowing or breathing, proceed to the nearest emergency room. Infection is very rare following this procedure. If you experience redness, increased neck swelling, fever or discharge from the site, then contact our office as soon as possible. documented in this encounter Progress Notes * Hira Jeff DO - 11/21/2017 9:00 AM EDT THYROID ULTRASOUND: Indication: Thyroid nodule on prior study; with mild atypia on prior biopsy (microfollicular predominance) PROCEDURE: THYROID FNA under US guidance Indication: Moderately sized thyroid nodule of 2 cm => FNA of the solid component and aspirationof cystic fluid for cytology Informed consent was obtained after a discussion [...] patient's neck was/were prepared using isopropyl alchohol. 6 passes of a 25g needle were performed at each site. The needle placement was ultrasound guided. The needle was visualized in the nodule in each pass. The procedure was well tolerated by the patient. The patient was given a thyroid FNA post-procedure handout upon completion. Hira Jeff DO, MS Supervisor Cd [place] Department of Medicine Section of Endocrinology [facility] * Hira Jeff DO - 11/21/2017 9:00 AM EDT Endocrinology Consult Patient Name: Abimbola Dumas Date of : 1945 PCP: Angie Alonzo MD HISTORY OF PRESENT ILLNESS: Abimbola Dumas is a very pleasant 72 y.o. female who presents for repeat fine-needle aspiration of a single right-sided thyroid nodule. She was diagnosed with stage I breast cancer after routine mammography revealed an area of concern. She underwent lumpectomy and now is on tamoxifen. Overall, she is doing very well. She was unaware of any thyroid abnormalities until routine imaging (for breast cancer follow-up) revealed a thyroid nodule. She denies voice changes, dysphagia, cough, palpable neck masses. Patient Active Problem List Diagnosis Code ??? Malignant neoplasm of upper-inner quadrant of left breast in female, estrogen receptor shxcuwixQ44.212, Z17.0 Allergies Allergen Reactions ??? Penicillins Current Outpatient Prescriptions on File Prior to Visit Medication Sig Dispense Refill ??? tamoxifen (NOLVADEX) 20 mg Tablet Take 1 tablet by mouth daily. Start on September 16, 2017. 90 tablet 3 ??? EMOLLIENT BASE (CREAM [...] blood-glucose meter (FREESTYLE) Kit 1 each by [facility].(Non-Drug; Combo Route) route as needed for Other. ??? aspirin 81 mg Tablet, Chewable Take 81 mg by mouth daily. ??? multivitamin Capsule Take 1 capsule by mouth daily. ??? CALCIUM CARB, CITRATE/VIT D3 (CALCIUM CARB AND CITRATE-VITD3 ORAL) Take by mouth. ??? silver sulfADIAZINE (SILVADENE) 1 % Cream Apply topically daily. (Patient not taking: Reported on 11/04/2017) 400 g 0 No current facility-administered medications on file prior to visit. Social History Social History ??? Marital status: Spouse name: N/A ??? Number of children: N/A ??? Years of education: N/A Social History Main Topics ??? Smoking status: Never Smoker ??? Smokeless tobacco: Never Used ??? Alcohol use None Comment: very occasional ??? Drug use: No ??? Sexual activity: Not Asked Other Topics Concern ??? None Social History Narrative Family History Problem Relation Age of Onset ??? Lung Cancer Sister smoker ??? Breast Cancer Neg Hx ??? Ovarian Cancer Neg Hx Family History: No known thyroid disease or thyroid cancer PHYSICAL EXAM: BP 158/71 Pulse 73 Ht 167.6 cm (5' 6) Wt 95.3 kg (210 lb) BMI 33.89 kg/m2 GENERAL: Well nourished, well hydrated, in no distress. SKIN: normal in texture and temperature EYES: no thyroid eye signs, DANIE, cornea normal NECK: supple, no palpable nodule or goiter, no bruit, no tenderness, no lymphadenopathy CVS: S1 S2 heard, rhythm regular RS: clear breath sounds bilateral EXTREMITIES: No clubbing, no edema, no cyanosis, normal nails. No tremor on out- stretched hands. Significant onychomycosis bilateral feet. Thyroid ultrasound: Slightly hypoechoic solitary thyroid nodule in the inferior aspect of the right lobe. 2 cm sagittal??1.5 cm AP by 1.5 cm transverse. There are no calcifications. The borders are well-defined. No internal vascularity. Impression: Single thyroid nodule with a prior biopsy revealing mild atypia, with a microfollicular predominance. Recommendations: -Repeat fine-needle aspiration today -We will plan to send the molecular testing (ThyGenX) if this aspirate reveals atypia We have reviewed our plan outlined above with the patient, and patient verbalized understanding. All questions were answered and most of the time was spent on counseling. Thank you for this consult, please do not hesitate to contact me with any questions. Hira Jeff DO, MS Supervisor Cd [place] Department of Medicine Section of Endocrinology [facility] cc: Angie Alonzo MD documented in this encounter Plan of Treatment Not on file documented as of this encounter Procedures Procedure Name Priority Date/Time Associated Diagnosis Comments NON-REINFORCEMENT MAKER FINAL REPORT Routine 11/21/2017 10:31 AM EDT CYTOPATHOLOGY NON-GYNECOLOGICAL Routine 11/21/2017 9:27 AM EDT Thyroid nodule documented in this encounter Results * Non-Webbing Weaver Final Report (11/21/2017 10:31 AM EDT) Diagnosis Discussion [id number] ? Location: 5C The signing pathologist has (i) examined the relevant preparation(s) for the specimen(s) and (ii) rendered or confirmed the diagnosis(es). . ? Addendum ADDENDUM DISCUSSION Test: ? ThyGenX Thyroid Oncogene Panel [facility] Case: ? [id number] Performing Lab: ? [facility] Performing Lab Case: ?[id number] Reported by: Ashley Castellanos MD Date reported: ? 04/09/2018 For the full text of the ThyGenX report, please refer to Non- Documentation Pathology in the electronic health record (eDH). Electronically signed by: ??Darius Kim MD Verified: ??04/10/2018 ?Pathologist Performed at: ??-[facility] Dept. of Pathology, [place], [place] ? Addendum ADDENDUM DISCUSSION Test: ThyGenx [facility] Case: [id number] Performing Lab: [facility] Performing Lab Case: [id number] Reported by Aletha Munoz MD Date reported: 12/11/2017 For the full text of the ThyGenX report, please refer to Non- Documentation Pathology in the electronic health record (eDH). Electronically signed by: ??Darius Kim MD Verified: ??12/19/2017 ?Pathologist Performed at: ??-[facility] Dept. of Pathology, [place], [place] ? Non-Webbing Weaver Final DIAGNOSIS Atypical Electronically signed by: ??Darius Kim MD Verified: ??11/24/2017 ?Pathologist Performed at: ??-[facility] Dept. of Pathology, [place], [place] DISCUSSION Thyroid, right (US-guided FNA): Atypia of Undetermined Significance (see note). Low cellularity aspirate ?? composed predominantly of microfollicles ??. Some of the follicular epithelial cell groups are embedded in blood, hindering evaluation of them. ??Small amount of colloid is seen. Note: Clinical correlation is recommended. Molecular testing or a repeat aspirate after an appropriate interval of observation might be helpful if clinically indicated. Reference: Jim SAXENA, Lucy ES. The [place] System for Reporting Thyroid Cytopathology. [place]: [place]; 2018. . CLINICAL INFORMATION Specimen Source : Thyroid, right (US-guided FNA, assisted) Pertinent Clinical Data and Significant Therapy: Right nodule with previous atypia (microfollicle predomninance) Clinical Impression: Exclude malignancy Pertinent Radiologic Findings: (not provided) Gross Description: Received in CytoLyt approximately 10 mL total volume of cloudy, pink fluid, with light flecks. Total Preparation: Liquid-Based Prep 1; Diff-Quik 3; Pap Stain 3. Fine Needle Aspiration Immediate Assessment: Evaluation Episode #1 (1 slide): Inadequate for final diagnosis. Deferred. Blood and some thick colloid. Immediate Assessment by: Darius Kim MD (Cytopathologist) . I have personally examined the cytologic slides. My interpretation is as stated. Note: Immediate Assessment results are preliminary assessments of adequacy and diagnosis. See final diagnostic comments for completed interpretation. 04/10/2018 5:07 PM EDT [facility] THYROID STRUCTURE / Unknown 11/21/2017 10:31 AM EDT 11/21/2017 10:31 AM EDT Hira Jeff DO PATHOLOGY/CYTOLOGY O RDERACLAUDIA Performing Organization Address [facility] Co de Phone Number [facility] [place] [address] * Cytopathology Non-Gynecological (11/21/2017 9:27 AM EDT) AP Specimen 11/21/2017 9:27 AM EDT 11/21/2017 9:27 AM EDT Narrative [facility] - 11/21/2017 9:27 AM EDT Specimen requisition ordered. ??Separate Pathology report to follow Hira Jeff DO PATHOLOGY/CYTOLOGY O RDERABLES Performing Organization Address [facility]/ZIP Co de Phone Number [facility] [place] [address] documented in this encounter Visit Diagnoses Diagnosis Thyroid nodule Nontoxic uninodular goiter documented in this encounter Care Teams Informatics Application Analyst Relationship Specialty Start Date End Date Angie Alonzo MD [address] [place] [address] PCP - General Family Medicine 06/25/17 documented as of this encounter
--- OUTSIDE RECORDS SUMMARY | 2024-03-11 15:17 | XMS_ITS | Encounter Summary ---
Author Organization [facility] Address [facility] [place] [address] Care Team Providers Care Electromedical Service Engineer Name Role Phone Angie Alonzo MD Primary Care Provider [phone] Reason for Visit * Reason Comments On Treatment Visit Encounter Details Date Type Department Care Team (Late st Contact Info) Description 08/20/2017 8:15 AM EST Office Visit Radiation Oncology at [address] [phone] Bethany Merrill MD [facility] [place] [address] Malignant neoplasm of left female breast, unspecified estrogen receptor status, unspecified site of breast; Thyroid nodule Social History Tobacco Use Types Packs/Day Years Used Date Smoking Tobacco: Never Smokeless Tobacco: Never Sex and Gender Information Value Date Recorded Sex Assigned at Not on file Gender Identity Not on file Sexual Orientation Not on file documented as of this encounter Last Filed Vital Signs Vital Sign Reading Time Taken Comments Blood Pressure 162/65 08/20/2017 8:00 AM EST Pulse 75 08/20/2017 8:00 AM EST Temperature 36.7 ??C (98.1 ??F) 08/20/2017 8:00 AM ES T Respiratory Rate 16 08/20/2017 8:00 AM EST Oxygen Saturation 99% 08/20/2017 8:00 AM EST Inhaled Oxygen Concentration - - Weight 95.3 kg (210 lb) 08/20/2017 8:00 AM EST s hoes off Height - - Body Mass Index 33.35 07/17/2017 8:46 AM EST documented in this encounter Progress Notes * Bethany Merrill MD - 08/20/2017 8:15 AM EST DIAGNOSIS: Breast, L, IDC, low gr, ER+CO+, Her2 neg, s/p lumpectomy & SNB, pT1b pN0, stage I. CURRENT TREATMENT DOSE: 29.26 Gy L breast ANTICIPATED TOTAL DOSE: 42.56 Gy L breast, 52.56 Gy lumpectomy bed L breast Current # of xrt received: 11 Anticipated total # of xrt txs: 16 L breast, 20 lumpectomy bed L breast Evaluation of port verification films: Approved. For details, see electronic film record in [employer] [facility]. Changes in Medical Condition: She notes a crust @ lumpectomy incision. Pain?: No. Your Medications These changes are accurate as of 08/20/17 8:57 AM. If you have any questions, ask [...] mg Quantity: 90 tablet Refills: 3 Physical Exam: BP 162/65 Pulse 75 Temp 36.7 ??C (98.1 ??F) Resp 16 Wt 95.3 kg (210 lb) Comment: shoes off SpO2 99% BMI 33.35 kg/m2 A&Ox3, NAD. 0.5 cm x 0.1 cm adhesive remaining from steristrips on L breast lumpectomy scar; part of it easily peeled away. Minimal erythema L breast; skin intact. Imagin07/23/17 Dx'ic Interp CTsim: No met dz. 2.4 cm hypodense nodule in R thyroid lobe for whichUS rec'd to assess if cyst/solid neoplasm/concern for malignancy. Advanced calcified atherosclerotic dz of coronary arteries, aorta & upper abdominal visceral arteries as far as visualized. Performance Status: KPS 100%. Response to xrt: As expected. Irradiation Related Symptoms: Skin rxn. Treatment for Symptom Control: Christian's cream. Pain Management: Not needed. Recommendation on Continuing Course of xrt: Cont xrt. We discussed CTsim finding of R thyroid lobe nodule. She is agreeable to US of thyroid. Her has recently developed confusion & memoryproblem; appt this wk w/his physician. Abimbola asks that US of thyroid be sched'd for next wk. I will discuss the atherosclerosis seen on CTsim w/her next wk. She has been rx'd jackson by Dr. Damico, to start 09/16/17. documented in this encounter Plan of Treatment Not on file documented as of this encounter Visit Diagnoses Diagnosis Malignant neoplasm of left female breast, unspecified estrogen receptor status, unspecified site of breast Thyroid nodule Nontoxic uninodular goiter documented in this encounter Care Teams Electromedical Service Engineer Relationship Specialty Start Date End Date Angie Alonzo MD [address] [place] [address] PCP - General Family Medicine 06/25/17 documented as of this encounter
--- OUTSIDE RECORDS SUMMARY | 2024-03-11 15:17 | XMS_ITS | Encounter Summary ---
Author Organization [facility] Address [facility] [place] [address] Care Team Providers Care [place] Leverman Name Role Phone Angie Alonzo MD Primary Care Provider [phone] Encounter Details Date Type Department Care Team (Latest Contact Info) Description 08/30/2017 - 08/30/2017 11:59 PM EST Hospital Encounter [place] [address] Bethany Merrill MD [facility] [place] [address] Discharge Disposition: Home Social History Tobacco Use [...] blood-glucose meter (FREESTYLE) Kit 1 each by [facility].(Non-Drug; Combo Route) route as needed for Other. aspirin 81 mg Tablet, Chewable Take 81 mg by mouth daily. tamoxifen (NOLVADEX) 20 mg TabletIndications:Vira gnant neoplasm of upper-inner quadrant of left breast [...] Associated Diagnosis Comments FILM LIBRARY STORAGE ONLY ULTRASOUND STUDY Routine 08/30/2017 12:00 AM EST documented in this encounter Results * Film Library- Storage Only Ultrasound Study (08/30/2017 12:00 AM EST) Narrative RAD - 09/02/2017 11:51 AM EST This exam is for storage only and is auto-finalizing. Bethany Merrill MD G FILM LIBRARY ORD ERABLES [place], [place] documented in this encounter Visit Diagnoses Not on filedocumented in this encounter Care Teams [place] Leverman Relationship Specialty Start Date End Date Angie Alonzo MD [address] [place] [address] PCP - General Family Medicine 06/25/17 documented as of this encounter
--- OUTSIDE RECORDS SUMMARY | 2024-03-11 15:17 | XMS_ITS | Encounter Summary ---
Author Organization [facility] [place] [address] Care Team Providers Care Recreation Teacher Name Role Phone Adis Franklin MD Primary Care Provider [phone] Encounter Details Date Type Department Care Team (Latest Contact Info) Description 05/22/2017 11:10 AM EST - 05/22/2017 11:59 PM EST Hospital Encounter [place] [phone] Harmeet Rogers MD [address] [place] [address] Screening breast examination Discharge Disposition: Home Social History Tobacco Use [...] Procedure Name Priority Date/Time Associated Diagnosis Comments REQUEST FOR 2ND READ MAMMO Routine 05/22/2017 11:10 AM EST Screening breast examination documented in this encounter Results * Request for 2nd read Mammo (05/22/2017 11:10 AM EST) Anatomical Region Laterality Modality SO Impressions 05/22/2017 11:41 AM EST LEFT BREAST LESION #1 0.9 cm Mass ??Upper Inner Quadrant 9 OClock 3 cm from the nipple BI-RADS Category 4: Suspicious Finding - Biopsy Should Be Considered RECOMMENDATION: Tomographic guided stereo biopsy Please note: The interpretation of the [facility] Breast Imaging Radiologist subspecialist may differ from the original radiologists interpretation. This is usually not due to a deficiency of the original interpreting radiologist, rather due to the greater skill level afforded by sub-specialization in the field and/or reasonable variations in interpretations. If you have a concern regarding the D-H interpretation you may contact the [facility] Breast Production Line Assembler Office at . Narrative 05/22/2017 11:41 AM EST INTERPRETATION OF OUTSIDE BREAST IMAGING I have been asked to consult on this patient by Dr. Dawson because he/she believes a review of this study may change or alter the care of this patient. STUDIES FROM: [facility] ultrasound from 04/09/2017 with comparison from 11/09/2016 and ultrasound-guided biopsy from 12/04/2016 CLINICAL HISTORY: L BR LESION, SURGEON REQUESTING FORMAL 2N READ OF FILMS; ?RE BX ?NON CONCORDANT; What Modality is the exam? Mammography; Body Part (please add comments as necessary): BREAST; I believe a reinterpretation of this exam may alter care of Patient. Yes. ?? COMPARISONS: Multiple prior mammograms 2008 FINDINGS: The breasts are predominantly fatty density. The RIGHT breast is normal and unchanged. The LEFT breast screening and diagnostic mammograms show a 0.9 cm spiculated mass in the upper inner quadrant of the LEFT breast. Ultrasound of this area shows a very subtle 6 mm hypoechoic shadowing mass with some internal vascularity. Biopsies were performed of this lesion, but I'm not able to assess from the biopsy images if the needle was through the lesion. There are no post clip images. The biopsy showed benign breast tissue. This is a non-concordant result with the imaging findings and repeat biopsy is recommended, even though there is no apparent change in lesion size on repeat ultrasound in March. I recommend that this is performed tomographically in view of the subtle ultrasound findings Procedure Note Catherine Ghotra MD - 05/22/2017 INTERPRETATION OF OUTSIDE BREAST IMAGING I have been asked to consult on this patient by Dr. Dawson becausehe/she believes a review of this study may change or alter the care of thispatient. STUDIES FROM: [facility] ultrasound from04/09/2017 with comparison from 11/09/2016 and ultrasound-guided biopsy from12/04/2016 CLINICAL HISTORY: L BR LESION, SURGEON REQUESTING FORMAL 2N READ OF FILMS;?RE BX ?NON CONCORDANT; What Modality is the exam? Mammography; Body Part(please add comments as necessary): BREAST; I believe a reinterpretation of thisexam may alter care of Patient. Yes. COMPARISONS: Multiple prior mammograms 2 2008 FINDINGS: The breasts are predominantly fatty density. The RIGHT breast is normaland unchanged. The LEFT breast screening and diagnostic mammograms show a 0.9cm spiculated mass in the upper inner quadrant of the LEFT breast. Ultrasoundof this area shows a very subtle 6 mm hypoechoic shadowing mass with someinternal vascularity. Biopsies were performed of this lesion, but I'm not able toassess from the biopsy images if the needle was through the lesion. There are nopost clip images. The biopsy showed benign breast tissue. This is anon-concordant result with the imaging findings and repeat biopsy is recommended, eventhough there is no apparent change in lesion size on repeat ultrasound inOctober. I recommend that this is performed tomographically in view of the subtle ultrasound findings IMPRESSION LEFT BREAST LESION #1 0.9 cm Mass Upper Inner Quadrant 9 OClock 3 cm from the nipple BI-RADS Category 4: Suspicious Finding - Biopsy Should Be Considered RECOMMENDATION: Tomographic guided stereo biopsy Please note: The interpretation of the [facility] BreastImaging Radiologist subspecialist may differ from the original radiologists interpretation. This is usually not due to a deficiency of the original interpreting radiologist, rather due to the greater skill level affordedby sub-specialization in the field and/or reasonable variations ininterpretations. If you have a concern regarding the H interpretation [facility] at . Harmeet Pink MD IMG OUTSIDE I NTERPRETATION ORDERABLES documented in this encounter Visit Diagnoses Diagnosis Screening breast examination (Not by Mammogram) Other screening breast examination documented in this encounter Care Teams Recreation Teacher Relationship Specialty Start Date End Date Adis Franklin MD PCP - General 05/23/10 06/24/17 documented as of this encounter
--- OUTSIDE RECORDS SUMMARY | 2024-03-11 15:17 | XMS_ITS | Encounter Summary ---
Author Organization [facility] Address [facility] [place] [address] Care Team Providers Care Insulation Board Calender Operator Name Role Phone Angie Alonzo MD Primary Care Provider [phone] Encounter Details Date Type Department Care Team (Late st Contact Info) Description 07/23/2017 Notes Only Radiation Oncology at [address] [phone] Ayse Renteria MSW OFFICE OF CARE MANAGEMENT Social History Tobacco Use Types Packs/Day Years Used Date Smoking Tobacco: Never Smokeless Tobacco: Never Sex and Gender Information Value Date Recorded Sex Assigned at Not on file Gender Identity Not on file Sexual Orientation Not on file documented as of this encounter Progress Notes * Ayse Renteria MSW - 07/23/2017 2:48 PM EST Reason for Referral: Brief assessment of social and emotional needs. Met with pt after her sim today. Reviewed notes from CHRISTY Gutierrez. Social Supports: Pt's primary support is her . They have a daughter and a son who are also involved and supportive. Pt indicated her children should be contacted first and her has somememory issues and would not fully understand the information/situation. Living Situation/Daily Activities/Transportation: Pt and manage their daily chores and activities. Pt drive herself. Her can drive but is better in the morning hours. 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 Her is also retired. She has Medicare and a secondary insurance. Advance Directives: Pt has completed her advance directive but she wants to make changes. Will haveher directive scanned into her medical record. Gave pt an new booklet/form to review and complete. Requested a copy of her new document for her record once done. Utilization of Community Resources: None at this time. Adjustment to Illness/Mental Health Issues: Pt indicated she is coping the best she can. She has support from her family. She enjoys quilting, reading and knitting. She is anxious to get her treatments started. Identified Needs: Pt did not identify any specific needs at this time. Referrals: None at this time. Plan: Informed pt of my availability and will follow for support and resources. documented in this encounter Plan of Treatment Not on file documented as of this encounter Visit Diagnoses Not on filedocumented in this encounter Care Teams Insulation Board Calender Operator Relationship Specialty Start Date End Date Angie Alonzo MD [address] [place] [address] PCP - General Family Medicine 06/25/17 documented as of this encounter
--- OUTSIDE RECORDS SUMMARY | 2024-03-11 15:17 | XMS_ITS | Encounter Summary ---
Author Organization [facility] [place] [address] Care Team Providers Care Feed Mill Operator Name Role Phone Angie Alonzo MD Primary Care Provider [phone] Reason for Referral * Diagnostic Test (Routine) - Closed Specialty Diagnoses / Procedures Referred By Mima t Referred To Contact Radiology Diagnoses Malignant neoplasm of left female breast, unspecified estrogen receptor status, unspecified site of breast Right thyroid nodule Procedures IR Biopsy Thyroid FNA Bethany Merrill MD [facility] [place] [address] [place] [address] Referral ID Status Reason Start Date Expiration Date V isits Requested Visits Authorized [id number] Closed Specialty Service Requested 09/02/2017 09/02/2018 1 1 Reason for Visit * Diagnostic Test (Routine) - Closed Specialty Diagnoses / Procedures Referred By Mima rivera Referred To Contact Radiology Diagnoses Malignant neoplasm of left female breast, unspecified estrogen receptor status, unspecified site of breast Right thyroid nodule Procedures IR Biopsy Thyroid FNA Bethany Merrill MD [facility] [place] [address] [place] [address] Referral ID Status Reason Start Date Expiration Date V isits Requested Visits Authorized [id number] Closed Specialty Service Requested 09/02/2017 09/02/2018 1 1 Encounter Details Date Type Department Care Team (Latest Contact Info) Description 09/10/2017 1:23 PM EDT - 09/10/2017 11:59 PM EDT Hospital [place] [address] Bethany Merrill MD [facility] [place] [address] Malignant neoplasm of left female breast, unspecified estrogen receptor status, unspecified site of breast; Right thyroid nodule Discharge Disposition: Home Social History Tobacco Use Types Packs/Day Years Used Date Smoking Tobacco: Never Smokeless Tobacco: Never Sex and Gender Information Value Date Recorded Sex Assigned at Not on file Gender Identity Not on file Sexual Orientation Not on file documented as of this encounter Last Filed Vital Signs Vital Sign Reading Time Taken Comments Blood Pressure 194/80 09/10/2017 3:30 PM EDT Pulse 70 09/10/2017 1:50 PM EDT Temperature 37 ??C (98.6 ??F) 09/10/2017 3:00 PM EDT Respiratory Rate 18 09/10/2017 3:21 PM EDT Oxygen Saturation 96% 09/10/2017 3:30 PM EDT Inhaled Oxygen Concentration - - Weight - - Height - - Body Mass Index - - documented in this encounter Discharge Instructions * Discharge Instructions* Nhan Tariq, RN - 09/10/2017 3:02 PM EDT [facility] DEPARTMENT OF RADIOLOGY Biopsy Discharge Instructions Thyroid, lymph node or soft tissue: call your doctor immediately if you develop increased pain swelling or heavy bleeding at the biopsy site, or difficulty swallowing . Activity and Diet: Go home and rest quietly for the remainder of the day. You may resume your normal activities tomorrow. Resume your usual diet after the procedure. When to call your healthcare provider: If you see any redness, swelling or drainage at the biopsy site. If you develop shaking chills. If you have a fever greater than or equal to101 degrees Fahrenheit. If you develop pain around the biopsy site. Bandage: Check the dressing/bandaid throughout the day for an increase in drainage. Keep the biopsysite dry for 24 hours. Replace the bandaid as needed. You may shower 24 hours after the biopsy. Medication: DO NOT take aspirin-containing products, ibuprofen, or blood- thinning medication for the next 24 hours unless your doctor says you may do so. Generally you may use acetaminophen as neededfor discomfort unless you have liver disease and are instructed not to take acetaminophen. Biopsy Results: The results of your biopsy should be available within 5 business days and will be reported to you by your primary clinical care leader or the clinician who ordered the biopsy. Please do notcall us for results as we will not have them. If you have not been contacted by your clinician within 5 business days you should call that office for further information. When to call the Radiology Department: Please call with any questions or concerns. If it is during regular office hours, please call [phone]. If it is after regular office hours, or on weekends or holidays, please call [phone] and ask to speak to the Licensed Embalmer conservation enforcement officer. Revised 07/15/15 documented in this encounter Medications at Time [...] Chewable Take 81 mg by mouth daily. silver sulfADIAZINE (SILVADENE) 1 % CreamIndications:Contac t [...] as of this encounter Progress Notes * Marissa Hooper RN - 09/06/2017 6:18 PM EST [facility] N[facility] DATABASE Name: ABIMBOLA JONES Date of : 1945 AGE 71 y.o. Address: [address] [address] (home) Mobile: No relevant phone numbers on file. Referring Provider: Bethany Merrill REASON FOR VISIT: Where will study be performed? [facility] Reason for exam and clinical history: CTsim for xrt plan for breast ca showed R thyroid nodule, confirmed by 08/30/17 US @ [facility]. Exam/Procedure requested: R thyroid nodule FNA. Is the patient on anticoagulant / anitplatelet therapy ? Aspirin Assessment/Plan: 71 y.o. female with PMH of breast cancer, with a solid appearing right thyroid nodule on CT and US. Patient presents for US guided FNA of the right thyroid nodules. ?? Labs to be performed day of procedure: Platelet count, INR Medication to STOP: None Sedation: Local only Planned access site: Right lobe Position: Supine Consent: Pending ?? Procedure was approved by Dr. Garcia ?? - Chintan León MD (Pager #[phone]) 09/06/2017 Allergies Allergen Reactions ??? Penicillins Pertinent PMH: Patient Active Problem List Diagnosis Code ??? Malignant neoplasm of upper-inner quadrant of left breast in female, estrogen receptor [id number], Z17.0 Pertinent PSH: Past Surgical History: Procedure Laterality Date ??? BREAST SURGERY R lumpectomy, benign ??? CHOLECYSTECTOMY ??? HYSTERECTOMY oophorectomy ??? ORTHOPEDIC SURGERY R hip ??? PRO ADJ TISS XFER TRUNK 10.1-30 Left 07/04/2017 ADJ.TISSUE TRANSFER, REARRANGEMENT, TRUNK,10.1 TO 30 SQ CM (WRVU 8.78) performed by Ashley Farooq MD at [facility] MAIN OR ??? PRO BX/REMV, LYMPH NODE, DEEP AXILL Left 07/04/2017 BIOPSY OR EXCISION OF LYMPH NODE(S), OPEN, DEEP AXILLARY NODE(S) (WRVU 6.43) performed by Ashley Farooq MD at [facility] MAIN OR ??? PRO INTRAOP SENTINEL LYMPH ID W/DYE INJECTION Left 07/04/2017 INTRAOPERATIVE ID (MAPPING) SENTINEL LYMPH NODE,INCLUDES INJECTION (WRVU 2.5) performed by Ashley Farooq MD at [facility] MAIN OR ??? PRO MASTECTOMY, PARTIAL Left 07/04/2017 MASTECTOMY PARTIAL (WRVU 10.13) performed by Ashley Farooq MD at [facility] MAIN OR Date/Procedure Med's given/comments none Laboratory Results: Lab Results Component Value Date CREATININE 0.69 (L) 06/19/2017 Lab Results Component Value Date K 3.7 06/19/2017 Lab Results Component Value Date PLATELET 304 06/19/2017 Medications: Prior to Admission medications Medication Sig Start Date End Date Taking? Authorizing Provider silver sulfADIAZINE (SILVADENE) 1 % Cream Apply topically daily. 09/02/17 Bethany Merrill MD tamoxifen (NOLVADEX) 20 mg Tablet Take 1 tablet by mouth daily. Start on September 16, 2017. Patient not taking: Reported on 08/27/2017 09/16/17 Kalyan Damico MD EMOLLIENT BASE (CREAM BASE TOP) Apply topically. Jeans Cream. Apply to area of radiation twice a day but no less than 2 hours before a treatment. Bethany Merrill MD METHYLCELLULOSE (CITRUCEL ORAL) Take by mouth daily as needed. PROVIDER, HISTORICAL pantoprazole (PROTONIX) 20 mg Tablet, Delayed Release (E.C.) Take 20 mg by mouth daily. PROVIDER, HISTORICAL potassium chloride (KLOR-CON) 20 mEq Packet Take 20 mEq by mouth daily. PROVIDER, HISTORICAL lisinopril (PRINIVIL;ZESTRIL) 40 mg Tablet Take 40 mg by mouth daily. PROVIDER, HISTORICAL DILTiazem (CARDIZEM CD) 240 mg Capsule, Sust. Release 24 hr Take 240 mg by mouth daily. PROVIDER, HISTORICAL chlorthalidone (HYGROTEN) 25 mg Tablet Take 25 mg by mouth daily. PROVIDER, HISTORICAL atorvastatin (LIPITOR) 40 mg Tablet Take 40 mg by mouth daily. PROVIDER, HISTORICAL meTOPROLOL succinate (TOPROL-XL) 50 mg Tablet Sustained Release 24 hr Take 50 mg by mouth daily. PROVIDER, HISTORICAL blood-glucose meter (FREESTYLE) Kit 1 each by [facility].(Non-Drug; Combo Route) route as needed for Other. PROVIDER, HISTORICAL aspirin 81 mg Tablet, Chewable Take 81 mg by mouth daily. PROVIDER, HISTORICAL multivitamin Capsule Take 1 capsule by mouth daily. PROVIDER, HISTORICAL CALCIUM CARB, CITRATE/VIT D3 (CALCIUM CARB AND CITRATE-VITD3 ORAL) Take by mouth. PROVIDER, HISTORICAL documented in this encounter Plan of Treatment Not on file documented as of this encounter Procedures Procedure Name Priority Date/Time Associated Diagnosis Comments NON-BUILDING OFFICIAL FINAL REPORT Routine 09/10/2017 3:51 PM EDT IR FNA THYROID NODULE Routine 09/10/2017 3:01 PM EDT Malignant neoplasm of left female breast, unspecified estrogen receptor status, unspecified site of breast Right thyroid nodule CYTOPATHOLOGY NON-GYNECOLOGICAL Routine 09/10/2017 1:50 PM EDT documented in this encounter Results * Non-Chief Psychology Final Report (09/10/2017 3:51 PM EDT) Diagnosis Discussion [id number] ? Location: 3Z The signing pathologist has (i) examined the relevant preparation(s) for the specimen(s) and (ii) rendered or confirmed the diagnosis(es). . ? Non-Chief Psychology Final DIAGNOSIS Atypical Electronically signed by: ??Ga De MD Verified: ??09/12/2017 ?Cytopathologis t Performed at: ??-[facility], [place], [place] DISCUSSION Thyroid: right (US-guided FNA) - Atypia of Undetermined Significance (see note). Low cellularity aspirate in which there appears to be a predominance of microfollicles/t hree dimensional cell clusters over macrofollicles. Colloid is not conspicuous. Note: Clinical correlation is recommended. Molecular testing or a repeat aspirate after an appropriate interval of observation might be helpful if clinically indicated. Reference: Jim SAXENA, Lucy DIANA. The [place] System for Reporting Thyroid Cytopathology. [place]: [place]; 2018. CLINICAL INFORMATION Specimen Source : Thyroid: right (US-guided FNA - assisted) Pertinent Clinical Data and Significant Therapy: CTsim for xrt plan for breast Ca showed R thyroid nodule Clinical Impression: CTsim for xrt plan for breast Ca showed R thyroid nodule Pertinent Radiologic Findings: (not provided) Gross Description: Received in CytoLyt, approximately 10 mL total volume of cloudy, pink fluid, with light flecks. Total Preparation: Liquid-Based Prep 1; Diff-Quik 3; Pap Stain 3. 09/12/2017 3:22 PM EDT [facility] THYROID STRUCTURE / Unknown 09/10/2017 3:51 PM EDT 09/10/2017 3:51 PM EDT Bethany Merrill MD PATHOLOGY/CYTOLOGY O RDERABLES [facility] [place] [address] * IR Biopsy Thyroid FNA (09/10/2017 3:01 [...] residents interpretation and agree with the findings, KEATON JOLLY at 09/17/2017 3:58 PM Narrative 09/17/2017 3:58 PM EDT EXAMINATION: IR BIOPSY THYROID FNA CLINICAL HISTORY: CTsim for xrt plan for breast ca showed R thyroid nodule, confirmed by 08/30/17 US @ [facility].; Exam/Procedure requested: R thyroid nodule FNA. Technique: [...] on immediate post-procedure US scan. Procedure Note Keaton Jolly MD - 09/17/2017 EXAMINATION: IR BIOPSY THYROID FNA CLINICAL HISTORY: CTsim for xrt plan for breast ca showed R thyroidnodule, confirmed by 08/30/17 US @ [place].; Exam/Procedure requested: R thyroid noduleFNA. Technique: After [...] the residents interpretationand agree with the findings, KEATON JOLLY at 09/17/2017 3:58 PM Bethany Merrill MD IMG IR ORDERABLES * Cytopathology Non-Gynecological (09/10/2017 1:50 PM EDT) AP Specimen 09/10/2017 1:50 PM EDT 09/10/2017 1:50 PM EDT Narrative [facility] - 09/10/2017 1:50 PM EDT Specimen requisition ordered. ??Separate Pathology report to follow Bethany Merrill MD PATHOLOGY/CYTOLOGY O RDERABLES [facility] [place] [address] documented in this encounter Visit Diagnoses Diagnosis Malignant neoplasm of left female breast, unspecified estrogen receptor status, unspecified site of breast Right thyroid nodule Nontoxic uninodular goiter documented in this encounter Care Teams Feed Mill Operator Relationship Specialty Start Date End Date Angie Alonzo MD [address] [facility] [address] [place] [address] PCP - General Family Medicine 06/25/17 documented as of this encounter
--- OUTSIDE RECORDS SUMMARY | 2024-03-11 15:17 | XMS_ITS | Encounter Summary ---
Author Organization [facility] Address [facility] [place] [address] Care Team Providers Care Comb Winder Name Role Phone Angie Alonzo MD Primary Care Provider [phone] Encounter Details Date Type Department Care Team (Late st Contact Info) Description 08/08/2017 8:15 AM EST Office Visit Radiation Oncology at [address] [phone] Paul Veliz MD [facility] [address] [place] [address] Malignant neoplasm of upper-inner quadrant of left [...] Sign Reading Time Taken Comments Blood Pressure 159/65 08/08/2017 8:00 AM EST Pulse 87 08/08/2017 8:00 AM EST Temperature 36.5 ??C (97.7 ??F) 08/08/2017 8:00 AM ES T Respiratory Rate 16 08/08/2017 8:00 AM EST Oxygen Saturation 98% 08/08/2017 8:00 AM EST Inhaled Oxygen Concentration - - Weight - - Height - - Body Mass Index - - documented in this encounter Progress Notes * Paul Veliz MD - 08/08/2017 8:15 AM EST Images from the original note [...] therapy directed at her LEFT breast at [facility] radiation oncology facility under the direction of Dr. Bethany Merrill. She was seen today for her first weekly OTV. She reports no problems with her first few fractions of t reatment. TREATMENT PROGRESS: Plan ID Energy Fractions Dose per Fraction (cGy) Dose Correction (cGy) Total Dose Delivered (cGy) Elapsed Days LT BREAST_FiF 10X/6X 266 0 1,064 3 EXAM: AAOx3 Comfortable, NAD COMMON TOXICITY GRADING: Dermatitis: Grade 0 (none) IMPERESSION/PLAN: Tolerating LEFT breast radiation therapy without incident. Reviewed expectations and plan. PLAN: 1. Continue radiation therapy as planned. 2. May take Tylenol or Ibuprofen for chronic RIGHT shoulder pain if needed to tolerate treatment position. Paul Veliz MD 08/08/2017 documented in this encounter Plan of Treatment Not on file documented as of this encounter Visit Diagnoses Diagnosis Malignant neoplasm of upper-inner quadrant of left female breast, unspecified estrogen receptor status documented in this encounter Care Teams Comb Winder Relationship Specialty Start Date End Date Angie Alonzo MD [address] [place] [address] PCP - General Family Medicine 06/25/17 documented as of this encounter
--- OUTSIDE RECORDS SUMMARY | 2024-03-11 15:17 | XMS_ITS | Encounter Summary ---
Author Organization [facility] [place] [address] Care Team Providers Care Principal Consulting Engineer Name Role Phone Angie Alonzo MD Primary Care Provider [phone] Encounter Details Date Type Department Care Team (Late st Contact Info) Description 09/02/2017 Telephone Radiation Oncology at [address] [address] Mayra Glass RN Social History Tobacco Use Types Packs/Day Years Used Date Smoking Tobacco: Never Smokeless Tobacco: Never Sex and Gender Information Value Date Recorded Sex Assigned at Not on file Gender Identity Not on file Sexual Orientation Not on file documented as of this encounter Miscellaneous Notes * Telephone Encounter - Mayra Glass RN - 09/02/2017 12:12 PM EST See below. I updated Dr. Merrill that [facility]'s pharmacy called requesting clarification regarding where to apply silvadene and verbally clarified with her the location of where to apply this medication. She states patient should apply 2 Gm twice daily to left breast. Telephone call to [facility]'s pharmacy and advised that Dr. Merrill orders 2 Gm bid to left breast. This was read back by pharmacist. * Telephone Encounter - Mayra Glass RN - 09/02/2017 12:10 PM EST ----- Message from Nia Catalan sent at 09/02/2017 10:47 AM EST ----- Regarding: VIVEK Merrill patient: [facility] pharmacy clarification on cream ----- Message ----- From: Carolina Melo Sent: 09/02/2017 10:28 AM To: Ed Rad Onc Cyanide Furnace Operator Subject: Desirae patient: [facility] pharmacy clarification # [facility] called asking about more clear directions for where the cream : silver sulfADIAZINE is supposed to be applied? Kyrie is the person who called : [phone] documented in this encounter Plan of Treatment Not on file documented as of this encounter Visit Diagnoses Not on filedocumented in this encounter Care Teams Principal Consulting Engineer Relationship Specialty Start Date End Date Angie Alonzo MD [employer] [address] [facility] [address] [place] [address] PCP - General Family Medicine 06/25/17 documented as of this encounter
--- OUTSIDE RECORDS SUMMARY | 2024-03-11 15:17 | XMS_ITS | Encounter Summary ---
Author Organization [facility] Address [facility] [place] [address] Care Team Providers Care Plate Cutter Name Role Phone Angie Alonzo MD Primary Care Provider [phone] Encounter Details Date Type Department Care Team (Late st Contact Info) Description 07/04/2017 1:32 PM EST - 07/04/2017 3:30 PM EST Surgery [place] [id number] Ashley Gloria MD [facility] [place] [address] MASTECTOMY PARTIAL (WRVU 10.13) Social History Tobacco Use Types Packs/Day Years Used Date Smoking Tobacco: Never Smokeless Tobacco: Never Sex and Gender Information Value Date Recorded Sex Assigned at Not on file Gender Identity Not on file Sexual Orientation Not on file documented as of this encounter Last Filed Vital Signs Vital Sign Reading Time Taken Comments Blood Pressure 158/69 07/04/2017 12:18 PM EST Pulse 53 07/04/2017 12:18 PM EST Temperature 37.6 ??C (99.7 ??F) 07/04/2017 12:[address] Respiratory Rate 18 07/04/2017 12:18 PM EST Oxygen Saturation 99% 07/04/2017 12:18 PM EST Inhaled Oxygen Concentration - - Weight - - Height - - Body Mass Index - - documented in this encounter Discharge Instructions * Discharge Instructions* Annika Espinoza RN - 07/04/2017 4:27 PM EST POST ANESTHESIA INSTRUCTIONS Go home, rest, use caution on stairs. Change positions slowly. Do not smoke if you are alone. Diet light to regular as tolerated today. If nausea occurs start with clear liquids and progress slowly. No driving, operating machinery, alcoholic beverages and no important decisions for 24 hours. Monitor IV site for signs and symptoms of infection: increasing redness, swelling, foul drainage, if occurs contact M.D. Patients who have had endotrachial tubes (this tube, used by anesthesia department, is passed down your throat after you are asleep, to ensure safe air passage during your operation). A sore throat is normal due to the tube. Cold liquids or soothing lozenges will help ease the discomfort. The generalized muscle aches are due to the medication given to you just before the tube is inserted. As the medication wears off, you may develop muscle soreness, which usually goes away in 12-24 hours. * Patient Instructions* Ashley Gloria MD - 07/04/2017 2:19 PM EST Instructions following Breast Surgery What to Expect Following Surgery: Swelling and/or bruising under and around the incision is normal. It is usually greatest on the second or third day following surgery. If swelling continue or becomes hard with worse pain, call to discuss your symptoms. Your sutures are dissolvable. Your scar will be most visible for 1-2 months following your operation and will gradually fade. As it heals, a scar looks more pink or red than the skin around it. You may feel a ???healing ridge?? directly under the incision. This is normal and will go away when healing is complete. The skin above and below your incision will feel numb. This will improve over several months but some patients may have long-term decrease in sensation over these areas. Incision Care: Keep dressing on your incision for the next 2 days, then you may remove dressing/surgibra and leaveincision open to air. If there are pieces of tape directly on the skin (steri-strips), please leave them on until they fall off on their own. You may trim them back as they peel up, or just remove them after 2 weeks. Or you may have surgical glue on your incision which has a purplish hue. Once dressing is removed in 2 days you may shower and get incision wet. Pat dry immediately following. Do not scrub area vigorously for the next 2 weeks. Do not soak incision under water (i.e. bath or swimming) for the next 4 weeks to prevent a wound infection. Do not use any ointments/salves/Vitamin E on the incision until after your first follow-up appointment as these may impair early wound healing. Diet & Activity: No restrictions in your diet are necessary. Activity as tolerated by your comfort level. You may return to work in 3-5 days depending on your recovery. NO DRIVING for at least 8 hours following any dose of an opioid pain medication if one was prescribed for you. Pain Management: Take acetaminophen (Tylenol) 1000mg every 8 hours for the first 3-5 days following surgery to help minimize pain. You may also use NSAIDS like ibuprofen (motrin, advil), naproxen (Naprosyn, Aleve). Use opioid (oxycodone) pain medications for severe pain, and do not take with alcohol. Opioid medications typically cause constipation, so we suggest using a stool softener in addition (metamucil, colace...etc.) You may apply ice or cold packs to the incision for 15-20 minutes several times a day for the first2-3 days following surgery to help with discomfort Follow-up Appointment: Will be scheduled with Dr. Gloria in 2-3 weeks Please call [phone] to confirm date and time of your appointment if you do not hear from us inthe week. Future Appointments Date Time Provider Department Center 07/17/2017 8:45 AM Ashley Gloria MD [facility] 07/17/2017 9:30 AM Kalyan Damico MD [facility] 07/22/2017 9:[address] [facility] 07/22/2017 10:00 AM Bethany Merrill MD [facility] Call Doctor for: Worsening redness or drainage from your incision lasting longer than 5 days following surgery Any foul-smelling drainage from the incision Fevers greater than 101 degrees F Persistent nausea or vomiting (this may be related to opioid pain medications) Phone number for questions: [phone] before 5 PM weekdays [phone] after 5 PM and on weekends/holidays documented in this encounter Medications at Time [...] blood-glucose meter (FREESTYLE) Kit 1 each by [facility].(Non-Drug; Combo Route) route as needed for Other. [...] as of this encounter H&P Notes * Ashley Gloria MD - 07/04/2017 2:18 PM EST Patient Name: Abimbola Dumas Patient Age: 71 y.o. Birthdate: 1945 Admit date: 07/04/2017 Attending Physician: Ashley Gloria MD Surgical Oncology New Visit Note ?? Reason for Visit: Abimbola Dumas is a 71 y.o. female was referred by Adis Franklin for evaluation of left breast cancer. ? HPI:Abimbola Dumas is a 71F with PMH pre-DM, stroke about 15yr ago without deficits, HTN who has lapsedin screening mammogram for 2 years. On recent screening mammo a new small mass was identified. 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 She is here today to discuss n ext steps in management. ?? Abimbola does not do regular self breast exams. Prior to breast biopsy, she denies any pain in either breast, no skin changes, no breast or axillary lumps, no nipple discharge. The patient has gone through menopause at age 48s when she had a hysterectomy. She did take hormonal therapy but does not know how long, but she is not on them now. Hasn't taken for many years. She had 2 children. She did notbreast feed. She does have a history of previous breast biopsy prior to this diagnosis - benign lumpectomy about 20 years ago in contralateral breast. Negative family history of breast cancer. ?? Overall she feels quite well. Weight is stable and appetite is good. Denies fatigue. No headaches. No chest pain or SOB. No abd pain or blood in the stool. No new bony pain or tenderness. Stable arthritic pain in hip and knees. Is active with regular scheduled exercise. ?? Active Ambulatory Problems ? Diagnosis Date Noted ??? No Active Ambulatory Problems ?? Resolved Ambulatory Problems ? Diagnosis Date Noted ??? No Resolved Ambulatory Problems ?? Past Medical History: Diagnosis Date ??? Arthritis ? Diabetes mellitus ? GERD (gastroesophageal reflux disease) ? Hypertension ? Stroke ? Past Surgical History: Procedure Laterality Date ??? BREAST SURGERY ? R lumpectomy, benign ??? CHOLECYSTECTOMY ? HYSTERECTOMY ? ORTHOPEDIC SURGERY ? R hip ? Current Outpatient Prescriptions: ??? pantoprazole (PROTONIX) 20 [...] meter (FREESTYLE) Kit, 1 each by [facility].(Non-Drug; Combo Route) route as needed forOther., Disp: [...] ORAL), Take by mouth., Disp: , Rfl: ? DRUG ALLERGIES: Allergies as of 06/19/2017 - Review Complete 06/19/2017 Allergen Reaction Noted ??? Penicillins ?? 06/19/2017 ? SOCIAL HISTORY: Social History ?? Social History ??? Marital status: Unknown ? Spouse name: N/A ??? Number of children: N/A ??? Years of education: N/A ?? Occupational History ??? Not on file. ?? Social History Main Topics ??? Smoking status: Never Smoker ??? Smokeless tobacco: Never Used ??? Alcohol use Not on file ??? Drug use: Not on file ??? Sexual activity: Not on file ?? Other Topics Concern ??? Not on file ?? Social History Narrative lives with . Denies smoking or ETOH use ? Family History Problem Relation Age of Onset ??? Lung Cancer Sister ? smoker ??? Breast Cancer Neg Hx ? Ovarian Cancer Neg Hx ? REVIEW OF SYSTEMS: A 12 point complete review of systems was obtained from the patient and confirmed by me. It was negative except for what was stated in the HPI . She otherwise denies heart disease,lung disease, and infectious diseases. ?? PHYSICAL EXAMINATION: ?? Constitutional: This is a 71 y.o. female in no apparent distress BP 137/56 (Patient Position: Sitting) Pulse 65 Temp 36.8 ??C (98.2 ??F) (Temporal) Resp 17 Ht 169 cm (5' 6.53) Wt 94 kg (207 lb 3.7 oz) SpO2 97% BMI 32.91 kg/m2 Body mass index is 32.91 kg/(m^2). Eyes: anicteric, extra ocular movements are intact Neuro: No focal deficits. Hearing and speech intact Psych: the patient is alert and oriented. Normal affect. Breast Exam: right breast with well healed incision in lower outer breast. No mass, skin or nipple changes or axillary nodes, left breast with well healed biopsy site without mass, skin or nipple changes or axillary nodes. Heart: Regular rate and rhythm. No peripheral edema Lungs: Clear bilaterally with good air intake Nodes: No palpable lymph nodes in the groin or neck. Abdomen: Soft, non-tender, non-distended. Musculoskeletal: The patient has normal gait, range of motion, and muscle strength Skin: warm, dry, good turgor, non-icteric. ? DATA REVIEWED: ?? 1) Imaging reviewed by me with the radiologist: Screening mammo: 05/22/17 COMPARISONS: Multiple prior mammograms 2 2008 ? FINDINGS: The breasts are predominantly fatty density. [...] apparent change in lesion size on repeat ultrasoundin March. 0.9 cm Mass ??Upper Inner Quadrant 9 OClock 3 cm from the nipple ? 2) Pathology 05/28/17 Needle biopsies: Left breast. Diagnosis: 1. Invasive ductal carcinoma, low grade. ?2. 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 Microcalcifications: ??N/A ER + >90% AL + >90% HER2 neg ?? 05/20/17 Needle biopsies: ?Left breast Diagnosis: ?Scant benign breast and adipose tissue (see Discussion) Microcalcifications: ??N/A NOT CONCORDANT* ?? 3) Labs Recent Results (from the past 24 hour(s)) Comprehensive metabolic panel (non-fasting) Result Value Ref Range ?? Glucose Lvl 140 65 - 199 mg/dL ?? BUN 24 (H) 8 - 18 mg/dL ?? Creatinine 0.69 (L) 0.70 - 1.20 mg/dL ?? Sodium 144 135 - 145 mmol/L ?? Potassium 3.7 3.5 - 5.0 mmol/L ?? Chloride 102 98 - 107 mmol/L ?? CO2 27 22 - 31 mmol/L ?? Anion Gap 15 5 - 15 mmol/L ?? Calcium 9.7 8.5 - 10.5 mg/dL ?? Total Protein 7.3 6.1 - 8.0 gm/dL ?? Albumin 4.2 3.2 - 5.2 gm/dL ?? AST 17 0 - 30 unit/L ?? ALT 16 0 - 30 unit/L ?? Alk Phos 63 40 - 104 unit/L ?? Total Bilirubin 0.4 0.2 - 1.3 mg/dL ?? Estimated GFR >60 >=60 Hemogram Result Value Ref Range ?? WBC 8.1 4.0 - 9.5 x10(3)/mcL ?? RBC 4.81 4.00 - 5.21 x10(6)/mcL ?? Hemoglobin 14.6 11.7 - 15.5 gm/dL ?? Hematocrit 43.0 35.7 - 45.8 % ?? MCV 89.4 82.6 - 94.4 fL ?? MCH 30.4 27.1 - 32.0 pg ?? MCHC 34.0 31.7 - 35.0 gm/dL ?? Platelets 304 145 - 357 x10(3)/mcL ?? RDWSD 43.2 37.0 - 46.0 fL ?? RDWCV 13.2 11.5 - 14.1 % ?? MPV 8.8 7.6 - 12.9 fL ?? nRBC % Auto 0.0 % ?? nRBC Abs Auto 0.000 0.000 - 0.000 x10(3)/mcL Differential, Automated Result Value Ref Range ?? Neutrophils % 71.6 % ?? Neutr Abs (ANC) 5.77 1.70 - 6.10 x10(3)/mcL ?? Lymphocytes % 17.6 % ?? Lymphocytes Abs 1.4 0.9 - 3.2 x10(3)/mcL ?? Monocytes % 9.1 % ?? Monocyte Abs 0.7 0.3 - 0.9 x10(3)/mcL ?? Eosinophils % 0.5 % ?? Eosinophils Abs 0.0 0.0 - 0.4 x10(3)/mcL ?? Basophils % 0.7 % ?? Basophils Abs 0.1 0.0 - 0.1 x10(3)/mcL ?? Immature Gran % 0.50 % ?? Missy Gran Abs 0.04 0.00 - 0.04 x10(3)/mcL ? Impression: Abimbola Dumas is a 71 y.o. female with PMH pre DM, stroke, HTN who has a mammogram detected 1cm left breast cancer ER+AL+HER2 neg. We discussed the treatment options of her cancer which include partial mastectomy with possible radiation versus mastectomy. We discussed the differences and local recurrence as well as the postoperative recovery. The patient is interested in breast conservation. We also discussed staging with sentinel lymph node biopsy. The patient and her granddaughter had multiple questions which were answered to their satisfaction. The patient would like to proceed with plan as follows: ?? Plan: ?? 1) Left breast partial mastectomy with needle loc, lymphatic mapping, SLNB. I explained the implications, indications and alternatives to the proposed treatment plan as well as the risks, including infection, bleeding/hematoma, need for additional surgery, lymphedema. Consent form has been signed. Same day surgery, out patient. ?? Ashley Gloria MD Surgical Oncology Patient seen. There are no changes to previous H&Pexcept for patient had wire localization and technetium injected for sentinel lymph node biopsy. Site marked. Case reviewed. Questions answered. Ashley Gloria MD 07/04/2017 Pager [phone] documented in this encounter Miscellaneous Notes * Op Note - Ashley Gloria MD - 07/04/2017 4:49 PM EST [facility] Operative Note Patient Name: Abimbola Dumas : [id number] MR#: [id number] Case Date: 07/04/2017 Surgeon: Surgeon(s) and Role: * Ashley Gloria MD - Primary * Roseanna Ghosh MD - Resident-Surgeon Sukh Preoperative diagnosis: LEFT BREAST CANCER Postoperative diagnosis: LEFT BREAST CANCER Procedure(s) (LRB): MASTECTOMY PARTIAL (WRVU 10.13) (Left) MODIFIER WITH NEEDLE LOC., LESION #1 (Left) BIOPSY OR EXCISION OF LYMPH NODE(S), OPEN, DEEP AXILLARY NODE(S) (WRVU 6.43) (Left) INTRAOPERATIVE ID (MAPPING) SENTINEL LYMPH NODE,INCLUDES INJECTION (WRVU 2.5) (Left) MODIFIER SENTINEL NODE EXCISION (Left) ADJ.TISSUE TRANSFER, REARRANGEMENT, TRUNK,10.1 TO 30 SQ CM (WRVU 8.78) (Left) Anesthesia: General Estimated Blood Loss:12cc Specimens removed during surgery: Order Name Source Comment Collection Info Order Time SPECIMEN TO PATHOLOGY (SURGICAL OR DERM) Left breast partial mastectomy OR 27, #[id number] LEFT BREAST CANCER Left breast partial mastectomy Yes 07/04/2017 3:26 PM Time removed from patient: 3:22 PM SPECIMEN TO PATHOLOGY (SURGICAL OR DERM) Left axillary sentinel lymph node #1 OR 27, #[id number] LEFT BREAST CANCER Left axillary sentinel lymph node #1 No 07/04/2017 3:47 PM Time removed from patient: 3:46 PM Drains: Surgical Closure: Primary Closure - closure of ALL tissue levels during the original surgery regardless of wires, wickes, drains, or other devices extruding through the incision Disposition: awakened from anesthesia, extubated and taken to the recovery room in a stable condition, having suffered no apparent untoward event. Condition: doing well without problems (Please see the Surgical Encounter Summary for any Implant and Specimen details pertinent to this patient.) Findings: left breast partial mastectomy done with specimen mammo with adequate margins. Cavity clipped. Oncoplastic recon with tissue transfer measuring superior flap 6cm x 2cm and inferior 5cm x 2cm for a total transfer of 22cm2. Mapped to left axilla, one enlarged LN. Counts 7515. Remaining count 374. Operative Indications: Abimbola Dumas is a 71 y.o. female with PMH pre DM, stroke, HTN who has a mammogram detected 1cm left breast cancer ER+AL+HER2 neg. Plan for Left breast partial mastectomy with needle loc, lymphatic mapping, SLNB. I explained the implications, indications and alternatives to the proposed treatment plan as well as the risks, including infection, bleeding/hematoma, need for additional surgery, lymphedema. Consent form has been signed. Operative Procedure: Abimbola Dumas was admitted through Same-Day Surgery. She was brought up to Radiology where wire localization was performed and technesium was injected in the left breast. She was then brought to the Operating Room and laid supine on the operating table. The correct site and allergies were reviewed with the patient prior to sedation. Venodynes were placed on bilateral lower extrem ities for DVT prophylaxis. Anesthesia was administered and a LMA was placed. SHe had a specific hotsignal with gamma probe in the left axilla so blue dye was not used. The left breast was prepped and draped in sterile fashion. Time-out confirmed the patient's identity, the correct surgical site, and the administration of prophylactic antibiotics. Once this had been confirmed, attention was turned to the left breast. 10cc Lidocaine 1% and Marcaine 0.5% mixed 1:1 was injected into the area and an incision was made at 9 oclock. The wire was brought into the wound and a core of tissue circumferential was widely excised. The tissue was inked on the anatomic margins and sent to Radiology where the lesion and clip were confirmed to be in the surgical specimen with adequate margins. The wound was irrigated and hemostasis was achieved with electrocautery. Clips were placed in in all anatomic areas of the excision cavity in order to identify it's boundaries.Given the significant defect in the upper mid breast, oncoplastic reconstruction was done by Mobilizing tissue flaps off of the pectoralis fascia. Superiorly the breast tissue flap measured flap 6cm x 2cm and inferiorly 5cm x 2cm for a total transfer of 22cm2. These breast tissue flaps were brought together to fill the defect with figure of 8 3-0 vicryl sutures. The wound was closed in 2 layers: 3-0 vicryl interrupted deep dermal sutures followed by 4-0 running monocryl. Attention was then turned to the left axilla. Lidocaine 1% and Marcaine 0.5% mixed 1:1 was injectedinto the area. A transverse incision was made and the tissue was dissected down through the clavipectoral fascia. A sentinel node was identified by the gamma probe. This was excised and clips were placed on the lymphatic channels to prevent seroma formation. This node had an ex vivo count of 7515. THe remaining count 374, less than 10% of the SLN therefore, satisfied that all sentinel nodes were removed, the wound was irrigated and hemostasis was achieved with electrocautery. The wound was closed in 2 layers: 3-0 vicryl interrupted deep dermal sutures followed by 4-0 running monocryl. The surgical areas were cleaned and dried. Surgical glue was applied to the wounds and allowed to dry. A sterile compressive dressing was applied. All counts were correct. The patient awoke from anesthesia, was extubated and brought the recovery room in stable condition. There were no apparent complications. Infection Bundle used? N/A Attestation: Case Date: 07/04/2017 I was present and I participated during the entire procedure (does not need to include opening and closing). ASHLEY GLORIA MD 07/04/2017 * Brief Op Note - Ashley Gloria MD - 07/04/2017 4:47 PM EST Brief Operative Note Patient Name: Abimbola Dumas : [id number] MR#: [id number] Case Date: 07/04/2017 Surgeon: Surgeon(s) and Role: * Ashley Gloria MD - Primary * Roseanna Ghosh MD - Resident-Surgeon Sukh Preoperative diagnosis: LEFT BREAST CANCER Postoperative diagnosis: LEFT BREAST CANCER Procedure(s) (LRB): MASTECTOMY PARTIAL (WRVU 10.13) (Left) MODIFIER WITH NEEDLE LOC., LESION #1 (Left) BIOPSY OR EXCISION OF LYMPH NODE(S), OPEN, DEEP AXILLARY NODE(S) (WRVU 6.43) (Left) INTRAOPERATIVE ID (MAPPING) SENTINEL LYMPH NODE,INCLUDES INJECTION (WRVU 2.5) (Left) MODIFIER SENTINEL NODE EXCISION (Left) ADJ.TISSUE TRANSFER, REARRANGEMENT, TRUNK,10.1 TO 30 SQ CM (WRVU 8.78) (Left) Anesthesia: General Findings: left breast partial mastectomy done with specimen mammo with adequate margins. Cavity clipped. Oncoplastic recon with tissue transfer measuring superior flap 6cm x 2cm and inferior 5cm x 2cm for a total transfer of 22cm2. Mapped to left axilla, one enlarged LN. Counts 7515. Remaining count 374. Complications: none Intake: per anesthesia record Output: Estimated Blood Loss: 12cc Drains: NA Specimens removed during surgery: Order Name Source Comment Collection Info Order Time SPECIMEN TO PATHOLOGY (SURGICAL OR DERM) Left breast partial mastectomy OR 27, #[id number] LEFT BREAST CANCER Left breast partial mastectomy Yes 07/04/2017 3:26 PM Time removed from patient: 3:22 PM SPECIMEN TO PATHOLOGY (SURGICAL OR DERM) Left axillary sentinel lymph node #1 OR 27, #[id number] LEFT BREAST CANCER Left axillary sentinel lymph node #1 No 07/04/2017 3:47 PM Time removed from patient: 3:46 PM Disposition: awakened from anesthesia, extubated and taken to the recovery room in a stable condition, having suffered no apparent untoward event. Condition: doing well without problems Attestation: Case Date: 07/04/2017 I was present and I participated during the entire procedure (does not need to include opening and closing). (Please see the Surgical Encounter Summary for any Implant and Specimen details pertinent to this patient.) documented in this encounter Plan of Treatment Not on file documented as of this encounter Procedures Procedure Name Priority Date/Time Associated Diagnosis Comments SPECIMEN TO PATHOLOGY Routine 07/04/2017 3:47 PM EST SPECIMEN TO PATHOLOGY Routine 07/04/2017 3:26 PM EST SURGICAL PATHOLOGY REPORT Routine 07/04/2017 3:22 PM EST ADJ.TISSUE TRANSFER, REARRANGEMENT, TRUNK,10.1 TO 30 SQ CM (WRVU 8.78) 07/04/2017 2:45 PM EST LEFT BREAST CANCER MODIFIER SENTINEL NODE EXCISION 07/04/2017 2:45 PM EST LEFT BREAST CANCER INTRAOPERATIVE ID (MAPPING) SENTINEL LYMPH NODE,INCLUDES INJECTION (WRVU 2.5) 07/04/2017 2:45 PM EST LEFT BREAST CANCER BIOPSY OR EXCISION OF LYMPH NODE(S), OPEN, DEEP AXILLARY NODE(S) (WRVU 6.43) 07/04/2017 2:45 PM EST LEFT BREAST CANCER MODIFIER WITH NEEDLE LOC., LESION #1 07/04/2017 2:45 PM EST LEFT BREAST CANCER MASTECTOMY PARTIAL (WRVU 10.13) 07/04/2017 2:45 PM EST LEFT BREAST CANCER documented in this encounter Results * Specimen to Pathology (surgical or derm) (07/04/2017 3:47 PM EST) AP Specimen 07/04/2017 3:47 PM EST 07/04/2017 3:47 PM EST Narrative [facility] - 07/04/2017 3:47 PM EST Specimen requisition ordered. ??Separate Pathology report to follow sAhley Pink MD PATHOLOGY/CYTOLO GY ORDERABLES Performing Organization Address [facility] Co de Phone Number [facility] [place] [address] * Specimen to Pathology (surgical or derm) (07/04/2017 3:26 PM EST) AP Specimen 07/04/2017 3:26 PM EST 07/04/2017 3:26 PM EST Narrative [facility] - 07/04/2017 3:26 PM EST Specimen requisition ordered. ??Separate Pathology report to follow Ashley Pink MD PATHOLOGY/CYTOLO GY ORDERABLES Performing Organization Address [facility] Co de Phone Number [facility] [place] [address] * Surgical Pathology Report (07/04/2017 3:22 PM EST) Final Diagnosis [id number] ? Location: [facility]; [id number]; A The signing pathologist has (i) examined the relevant preparation(s) for the specimen(s) and (ii) rendered or confirmed the diagnosis(es). . ?Surgical Pathology DIAGNOSIS Specimen Parts: ?? A - Left axillary sentinel lymph node #1 B - Left breast partial mastectomy Specimen ? Procedure: ??Excision (less than total mastectomy) ? Specimen Laterality: ?? Left Tumor ? Histologic Type: ?? Invasive ductal carcinoma ? Histologic Grade ([place] Histologic Score) ?Glandular (Acinar) / Tubular Differentiation: ?Score 1 ?Nuclear Pleomorphism: ?? Score 2 ?Mitotic Rate: ?? Score 1 ?Overall Grade: ?? Grade 1 (scores of 3, 4 or 5) ? Tumor Size: ?? 6.6 Millimeters (mm) ? Tumor Focality: ?? Single focus of invasive carcinoma ? Ductal Carcinoma In Situ (DCIS): ?DCIS is present in specimen ?Size (Extent) of DCIS: ?? 25 Millimeters (mm) ?Architectural Patterns: ?? Comedo, Papillary, Solid, DCIS is present mixed ? with and way from the invasive tumor. There is a range of DCIS, from ? low grade DCIS without necrosis (nearer to invasive tumor), to high ? grade DCIS with comedonecrosis (in tissue slice 1, way from the invasive ? tumor). ? Tumor Extent ?Skin: ??Skin is not present ?Skeletal Muscle: ?? No skeletal muscle is present ? Accessory Findings ?Lymphovascular Invasion: ?? Not identified ?Treatment Effect: ?? No known presurgical therapy Margins ? Invasive Carcinoma Margins: ?? Uninvolved by invasive carcinoma ?Distance from Cranial Margin: ?? 6.5 Millimeters (mm) ?Distance from Other Specified Margin: ?From other RM > 10 Millimeters (mm) ? DCIS Margins: ?? Uninvolved by DCIS ?Distance of DCIS to Cranial Margin: ?0.5 Millimeters (mm) ?Distance of DCIS to Caudal Margin: ?8 Millimeters (mm) ?Distance of DCIS to Lateral Margin: ?4.5 Millimeters (mm) Lymph Nodes ? Number of Lymph Nodes with Macrometastases ( ??> 2 mm): ?? 0 ? Number of Lymph Nodes with Micrometastases ( ??> 0.2 mm to 2 mm and / or ??> 200 ?cells): ??0 ? Number of Lymph Nodes with Isolated Tumor Cells ( ??<= 0.2 mm and ??<= 200 cells): ? 0 ? Number of Lymph Nodes Examined: ?1 ? Number of [place] Nodes Examined: ?1 Pathologic Stage Classification (pTNM, AJCC 8th Edition) ? Primary Tumor (Invasive Carcinoma) (pT): ?pT1b ? Regional Lymph Nodes (pN) ?Category (pN): ?? pN0 Tumor Block(s): ?? B12 Normal Block(s): ?? B6 . DIAGNOSIS 2016 AJCC 8th Edition CAP Annual Release Electronically signed by: ??Natty Mederos DO Verified: ??07/12/2017 ?Pathologist Performed at: ??-[facility] [place] Dept. [place], [place], [place] ADDITIONAL STUDIES Immunohistochemistry Studies: Formalin-fixed, paraffin-embedded tissue sections are studied using the polymer technique with appropriate positive and negative controls. ?These IHC studies provide the pathologist with adjunctive diagnostic information. Antibody specificity has been verified by testing antibodies on a series of in-house tissues with known immunohistochemical performance characteristics. The clinical interpretation of any antibody positive staining or its absence is evaluated within the context of clinical presentation, morphology, histopathological criteria and other diagnostic tests. Block ? Antibody ? Result (Positive/Negative) B2 ? CD31 ? Negative in focus of interest CLINICAL INFORMATION Specimen Submitted: A - Left axillary sentinel lymph node #1 B - Left breast partial mastectomy Clinical History: Left breast cancer Clinical Diagnosis: Left breast cancer SPECIMEN PROCESSING A - ??Labeled/Fixative: Left axillary sentinel node, fresh. Quantity/Size: Single, 3.7 x 2.4 x 1.3 cm. Tissue Description: Lobular to petersen-yellow fibroadipose tissue ? which appears to be a single irregular, petersen-pink node up to 3.2 cm. Sections/Processing: Totally submitted. (T6) B - ??Labeled/Fixative: Left breast partial mastectomy, fresh. SPECIMEN DESCRIPTION Resection Specimen: Intact, inked excisional biopsy Qty/Size/Weight: Single, 6.5 x 5.7 x 2.6 cm, 45 grams. Radiograph: Specimen radiograph is reviewed. Radiology notes that the lesion, clip and wire are present within the sample. Specimen Description: According to the established protocol the ink designations are red (medial), yellow (lateral), orange (cranial), green (caudal), black (deep) and blue (superficial). Tissue Sections: The specimen is serially sectioned perpendicular to the long axis from yellow towards red into nine slices, each averaging 0.3-0.9 cm in thickness. LESION Description: Biopsy site with hemorrhage. Size: Approximately 0.8 x 0.7 x 0.7 cm. Color: Hemorrhagic, pink-red. Consistency: Soft to rubbery. Location: Edge of slice IV and slice V. Nearest Margin: 0.9 cm to orange, 1.5 cm to green. Other Margins: 1.8 cm to yellow, 1.9 cm to black, 2.1 cm to blue, 2.9 cm a red. OTHER Parenchyma: The remaining parenchyma reveals lobular adipose tissue with a small amount of interspersed white breast tissue. Wire/Clip: Wire tip identified in slice III, Marker clip identified in slice V. . SPECIMEN PROCESSING SECTIONS/PROCESSING: (1)in store marketing representative sections of slice I, yellow margin; (2)in store marketing representative sections of slice II; (3-7) full-thickness section ??slice IV; (8-13) full-thickness slice V with green margin in cassette 8, black margin in cassette 9, black/orange margin in cassette 10 orange margin in cassette 11 and 12 (includes biopsy clip site) and central edge of biopsy site in cassette 13; (14)in store marketing representative sections of slice ; (15-16)representativ e sections of slice VII; (17) in store marketing representative sections of slice IX, red/blue margin. (R17) Ischemic Time: 120 minutes ??pps 07/12/2017 9:43 AM EST [facility] BREAST STRUCTURE / Unknown 07/04/2017 3:22 PM EST 07/04/2017 3:22 PM EST BREAST STRUCTURE / Unknown 07/04/2017 3:22 PM EST 07/04/2017 3:22 PM EST Ashley Pink MD PATHOLOGY/CYTOLO GY ORDERABLES [facility] [place] [address] documented in this encounter Visit Diagnoses Not on filedocumented in this encounter Administered Medications Inactive Administered Medications - up to 3 most recent administrations Medication Order MAR Action Action Date Dose Rate Site acetaminophen (TYLENOL) tablet 1,000 mg 1,000 mg, Oral, ONCE PRN, 1 dose, Starting on Lawanda 07/04/17 at 1631, Until Lawanda 07/04/17 at 1657, Pain, Maximum dose of acetaminophen is 4000 mg from all sources in 24 hours., Routine Given 07/04/2017 4:57 PM EST 1,000 mg BUpivacaine (PF) (MARCAINE) 0.5 % (5 mg/mL) injection ONCE PRN, Starting on Lawanda 07/04/17 at 1557, Until Lawanda 07/04/17 at 2006, Intra-Operative (Intra-Procedure), Routine Given 07/04/2017 3:57 PM EST 16 mLs 18- Thigh Posterior (Right) lidocaine (XYLOCAINE) 10 mg/mL (1 %) injection ONCE PRN, Starting on Lawanda 07/04/17 at 1558, Until Lawanda 07/04/17 at 2006, Intra-Operative (Intra-Procedure), Routine Given 07/04/2017 3:58 PM EST 16 mLs 19- Surgical Site oxyCODONE (ROXICODONE) immediate release tablet 5 mg 5 mg, Oral, ONCE PRN, 1 dose, Starting on Lawanda 07/04/17 at 1737, Until Lawanda 07/04/17 at 1744, Pain, PACU Recovery, Routine Given 07/04/2017 5:44 PM EST 5 mg documented in this encounter Active and Recently Administered Medications Times are shown in EST. Scheduled Medication Order 07/02/2017 07/03/2017 07/04/2017 ceFAZolin (ANCEF) 2g in dextrose 5% 100 mL (COMPLETED) 2 g, Intravenous, EVERY 3 HOURS, 1 dose, First dose on Lawanda 07/04/17 at 1245, Administer over 30 Minutes, Intra-Operative (Intra-Procedure), Indication for (Active or Suspected): Prophylaxis 6099 (Given - Provid er: Panchito Velasquez CRNA) PRN Medication Order 07/02/2017 07/03/2017 07/04/2017 acetaminophen (TYLENOL) tablet 1,000 mg (COMPLETED) 1,000 mg, Oral, ONCE PRN, 1 dose, Starting on Lawanda 07/04/17 at 1631, Until Lawanda 07/04/17 at 1657, Pain, Maximum dose of acetaminophen is 4000 mg from all sources in 24 hours., Routine 1657 (Given - Provid er: Annika Espinoza RN) BUpivacaine (PF) (MARCAINE) 0.5 % (5 mg/mL) injection (CANCELED) ONCE PRN, Starting on Lawanda 18 at 1557, Until Lawanda 18 at 2006, Intra-Operative (Intra-Procedure), Routine 1557 (Given - Provid er: Ashley Pink MD - Comment: 0.5% bupivacaine mixed 1:1 with 1% lidocaine. Total of 16 ml of mixture used.) lidocaine (XYLOCAINE) 10 mg/mL (1 %) injection (CANCELED) ONCE PRN, Starting on Lawanda 18 at 1558, Until Lawanda 07/04/17 at 2006, Intra-Operative (Intra-Procedure), Routine 1558 (Given - Provid er: Ashley Pink MD - Comment: 0.5% bupivacaine mixed 1:1 with 1% lidocaine. Total of 16 ml of mixture used.) oxyCODONE (ROXICODONE) immediate release tablet 5 mg (COMPLETED) 5 mg, Oral, ONCE PRN, 1 dose, Starting on Lawanda 18 at 1737, Until Lawanda 18 at 1744, Pain, PACU Recovery, Routine 1744 (Given - Provid er: Annika Espinoza RN) documented in this encounter Care Teams Plate Cutter Relationship Specialty Start Date End Date Angie Alonzo MD [facility] [address] [place] [address] PCP - General Family Medicine 06/25/17 documented as of this encounter
--- OUTSIDE RECORDS SUMMARY | 2024-03-11 15:17 | XMS_ITS | Encounter Summary ---
Author Organization [facility] Address [facility] [place] [address] Care Team Providers Care Pocket Marker Name Role Phone Angie Alonzo MD Primary Care Provider [phone] Reason for Referral * Consultation (Routine) - Closed Specialty Diagnoses / Procedures Referred By Contac t Referred To Contact Radiation Oncology Diagnoses Malignant neoplasm of upper-inner quadrant of left female breast, unspecified estrogen receptor status Procedures Simulation for Radiation Therapy Planning Bethany Merrill MD [facility] [place] [address] [facility] Rad Onc Office [address] [place] [phone] Referral ID Status Reason Start Date Expiration Date V isits Requested Visits Authorized [id number] Closed Consult, Test & Treat 07/22/2017 07/22/2018 1 1 Reason for Visit * Reason Comments Radiation Consult * Consultation (Routine) - Closed Specialty Diagnoses / Procedures Referred By Contac t Referred To Contact Radiation Oncology Diagnoses Malignant neoplasm of upper-inner quadrant of left female breast, unspecified estrogen receptor status Procedures Simulation for Radiation Therapy Planning Bethany Merrill MD [facility] [place] [address] [facility] Rad Onc Office [address] [place] [phone] Referral ID Status Reason Start Date Expiration Date V isits Requested Visits Authorized [id number] Closed Consult, Test & Treat 07/22/2017 07/22/2018 1 1 Encounter Details Date Type Department Care Team (Late st Contact Info) Description 07/22/2017 10:00 AM EST Office Visit Radiation Oncology at [address] [phone] Bethany Merrill MD [facility] [address] [place] [address] Malignant neoplasm of upper-inner quadrant of left [...] Sign Reading Time Taken Comments Blood Pressure 148/67 07/22/2017 10:01 AM EST Pulse 63 07/22/2017 10:01 AM EST Temperature 36.3 ??C (97.3 ??F) 07/22/2017 1 0:01 AM EST Respiratory Rate 16 07/22/2017 10:0 1 AM EST Oxygen Saturation 97% 07/22/2017 10: 01 AM EST Inhaled Oxygen Concentration - - Weight 93.8 kg (206 lb 12.8 oz) 018 10:01 AM EST Height - - Body Mass Index 32.84 07/17/2017 8:46 AM EST documented in this encounter Progress Notes * Mayra Glass, RN - 07/22/2017 10:00 AM EST RADIATION ONCOLOGY NURSING INITIAL NURSING ASSESSMENT IDENTIFICATION: Abimbola Dumas is a 71 y.o. year-old female with left breast cancer. PRESENTING SYMPTOMS/CHIEF COMPLAINT: Presented with abnormal screening mammogram. REVIEW OF SYSTEMS:Review of Systems Constitutional: Negative for activity change, fatigue and unexpected weight change. Respiratory: Negative for cough and chest tightness. Cardiovascular: Negative for chest pain. Gastrointestinal: Negative for constipation, diarrhea and vomiting. Genitourinary: Negative for dysuria. Musculoskeletal: Positive for arthralgias (chronic arthritis pain). Skin: Positive for wound (s/p left partial mastectomy.). Neurological: Negative for dizziness, light-headedness and headaches. Psychiatric/Behavioral: Positive for sleep disturbance (has CPAP). The patient is nervous/anxious (fear of unknown. spouse has memory loss). IN THE PAST 12 MONTHS HAVE YOU: Fallen more than one time? no Injured yourself as result of the fall? n/a Experienced difficulty with walking/problems with balance? no Do you use any assistive devices? no (If patient does not know or declines to answer, please note in the 3 star option) If patient answered yes to any of the above, please offer to print out one of the following resources that may apply to them: Stay Independent http://www.cdc.gov/steadi/pdf/stay_independent_brochure-a.pdf What you can do to prevent falls http://www.cdc.gov/steadi/pdf/what_you_can_do_brochure-a.pdf Check for Safety-A home fall prevention checklist for older adults http://www.cdc.gov/steadi/pdf/check_for_safety_brochure-a.pdf Postural Hypotension-What is it and how to manage it http://www.cdc.gov/steadi/pdf/postural_hypotension-a.pdf Chair Rise Exercises to strengthen the muscles of things and buttocks http://www.cdc.gov/steadi/pdf/chair_rise_exercise-a.pdf Any Implanted Devices/Hardware: right hip replacement. It isn't metal states patient If yes please put alert in ARIA patient summary Prior Radiotherapy: No Prior Chemotherapy: No Prior Hormone Therapy: No RADIOLOGY SAFETY QUESTIONS REVIEWED: If applicable MRICTSAFETYQUESTIONS LEARNING ASSESSMENT REVIEWED: yes ADVANCED DIRECTIVE: Has completed. Will bring in copy for e DH record. PAIN ASSESSMENT: 2 out of 10 Overall chronic arthritis pain. I don't really even think about it. SOCIAL ASSESSMENT: See [facility] social assessment information entered. Support Systems: family Barriers to treatment: none identified. Referrals/Interventions: FIBERGLASS GRINDER on day of simulation. RADIATION SPECIFIC TEACHING: [facility] Radiation Therapy and You Site specific teaching : Site specific teaching to be done by nursing on day of simulation. Other: PLAN: Per Dr. Merrill * Bethany Merrill MD - 07/22/2017 10:00 AM EST CC: Referred by Dr. Alonzo for eval for xrt for breast ca. HPI: 71 y/o f who presented w/L breast abnlty on screening mmg. 11/06/16 B screening mmg ([facility]): Questionable increased density medial subareolar L breast. R breast neg. 12/04/16 US guided L breast bx @ 9 o'clock, 2 cm from nipple. DH path: Scant benign breast & adipose tissue. DH interp [facility] 04/09/17 US L breast, 11/09/16 dx'ic L mmg & L breast US & 12/04/16 US guided bx: 0.9 cm mass @ 9 o'clock, 3 cm from nipple. 05/28/17 L breast US: Highly suspicious densely shadowing lesion L breast 9:00 radian 3 cm from nipple. 05/28/17 L breast US guided vac assisted core bx. Path: IDC, low gr, ER+RI+, Her2 FISH neg. 06/19/[address] Farooq, w/exam showing no palpable breast mass/adenopathy. 07/04/17 NLOC L breast lumpectomy w/+ specimen xray. Cavity clipped. Oncoplastic recon. SNB mapped to1 enlarged lymph node in L axilla. Path: IDC, gr 1, 6.6 mm, +DCIS, RM neg, 1 sentinel lymph node (neg), pT1b pN0. 07/17/17 fu w/Dr. Farooq; rtc 6 mos w/mmg. 07/17/[address] Damico, w/rec for xrt to L breast followed by hormonal tx. ROS: Healing well. No hand/arm swelling. ROM arms around shoulders good. Appetite ok. Energy level alright; exercises regularly on stationery bike & eliptical; has not yet returned to swimming. Past Medical History: Diagnosis Date ??? Arthritis [...] 8.78) performed by Ashley Farooq MD at [facility] MAIN OR ??? PRO BX/REMV, LYMPH NODE, DEEP AXILL Left 07/04/2017 BIOPSY OR EXCISION OF LYMPH NODE(S), OPEN, DEEP AXILLARY NODE(S) (WRVU 6.43) performed by Ashley Farooq MD at [facility] MAIN OR ??? PRO INTRAOP SENTINEL LYMPH ID W/DYE INJECTION Left 07/04/2017 INTRAOPERATIVE ID (MAPPING) SENTINEL LYMPH NODE,INCLUDES INJECTION (WRVU 2.5) performed by Ashley Farooq MD at [facility] MAIN OR ??? PRO MASTECTOMY, PARTIAL Left 07/04/2017 MASTECTOMY PARTIAL (WRVU 10.13) performed by Ashley Farooq MD at [facility] MAIN OR R breast lumpectomy 20 yrs ago (benign). Hysterectomy @ age 48 yrs. Your Medications These changes are accurate as of 07/22/17 10:34 AM. If you have any questions, ask [...] mg Refills: 0 CITRUCEL ORAL Take by mouth. Refills: 0 DILTiazem 240 mg Cp24 Commonly [...] by mouth daily. 20 mEq Refills: 0 STOPPED Medications CITRACAL + D ORAL Stopped by: Bethany Merrill MD Physical Exam Constitutional: She is oriented to person, place, and time. She appears well- developed and well-nourished. No distress. BP 148/67 (Patient Position: Sitting) Pulse 63 Temp 36.3 ??C (97.3 ??F) (Oral) Resp 16 Wt 93.8 kg (206 lb 12.8 oz) SpO2 97% BMI 32.84 kg/m2 HENT: Head: Normocephalic and atraumatic. Eyes: [...] Left breast exhibits skin change ( Minimal brownish ecchymosis around lumpectomy scar.). Left breast exhibits no inverted nipple, no [...] is normal. Judgment and thought contentnormal. A: Breast ca, L, IDC, low gr, ER+RI+, Her2 neg, s/p lumpectomy & SNB, pT1b pN0, stage I. P: We discussed the Tere' report on CALGB 9343 data examining omission of xrt after lumpectomy inwomen 70 yrs of age or older w/clinical stage I, estrogen sensitive breast ca. Women treated w/lumpectomy followed by randomization to xrt & jackson or just jackson. 10 yr risk of locoregional failure 10% in women not irradiated & 2% in women irradiated. No difference in survival, time to mastectomy or time to met dz. Xrt would be given to her L breast in 20 fxs. Possible side effects of xrt to breast discussed, w/acute/immediate side effects including: Pinkening, soreness & peeling of skin in treated area; swelling of treated breast; soreness of treated breast; cough; shortness of breath; tiredness. Late/mcc side effects to breast discussed include: Treated breast may shrink, become firmer & sit higher on chest; achiness/stiffness of chest wall on treated side; slight increase in smallrisk of dying of heart disease (from 1.9% to 2.4%); rib fracture on treated side; CT after xrt may show scarring w/in small volume of lung on treated side; very small risk of radiotherapy associated 2nd malignancy. Need for CTsim prior to xrt discussed. At CTsim, she would be assessed for use of deep inspiration breath hold (DIBH) to decrease xrt dose to heart. She would like to proceed w/xrt & will return tomorrow for CTsim. 25 mins of 40 min face to face visit w/Abimbola spent discussing rationale for xrt; hoped for benefit ofxrt; possible side effects/complications of xrt; prevention/management of side effects/complications of xrt; logistics of daily xrt; CTsimulation w/eval for DIBH; arm position required for xrt; followup after completion of xrt. Radiation bates:Whole breast w/ tangents Radiation boost:Yes Total dose of radiation: 52.56 Gy/20 fxs documented in this encounter Plan of Treatment Scheduled Orders Name Type Priority Associated Diagnoses Orde r Schedule Simulation for Radiation Therapy Planning Procedures Routine Malignant neoplasm of upper-inner quadrant of left female breast, unspecified estrogen receptor status Ordered: 07/22/2017 documented as of this encounter Visit Diagnoses Diagnosis Malignant neoplasm of upper-inner quadrant of left female breast, unspecified estrogen receptor status documented in this encounter Care Teams Pocket Marker Relationship Specialty Start Date End Date Angie Alonzo MD [address] [facility] [address] [place] [address] PCP - General Family Medicine 06/25/17 documented as of this encounter
--- OUTSIDE RECORDS SUMMARY | 2024-03-11 15:17 | XMS_ITS | Encounter Summary ---
Author Organization [facility] [place] [address] Care Team Providers Care Beamer Hand Name Role Phone Angie Alonzo MD Primary Care Provider [phone] Encounter Details Date Type Department Care Team (Late st Contact Info) Description 07/16/2017 Telephone Hematology [place] [phone] Shirley Ding Social History Tobacco Use Types Packs/Day Years Used Date Smoking Tobacco: Never Smokeless Tobacco: Never Sex and Gender Information Value Date Recorded Sex Assigned at Not on file Gender Identity Not on file Sexual Orientation Not on file documented as of this encounter Miscellaneous Notes * Telephone Encounter - Shirley Ding - 07/16/2017 11:18 AM EST Age at diagnosis:71 Date of diagnosis: May 30, 2017 Place of diagnosis: Internal Date of initial appointment: 06/19/17 Surgeon: Zakiya Referral to Medical Oncology: Yes, Internal Medical Oncologist:Mookie Referral to Radiation Oncology:Yes External Radiation Oncologist: Deisrae Referral to Plastic Surgery: No documented in this encounter Plan of Treatment Not on file documented as of this encounter Visit Diagnoses Not on filedocumented in this encounter Care Teams Beamer Hand Relationship Specialty Start Date End Date Angie Alonzo MD [address] [place] [address] PCP - General Family Medicine 06/25/17 documented as of this encounter
--- OUTSIDE RECORDS SUMMARY | 2024-03-11 15:17 | XMS_ITS | Encounter Summary ---
Author Organization [facility] Address [facility] [place] [address] Care Team Providers Care Commercial Loan Coordinator Name Role Phone Angie Alonzo MD Primary Care Provider [phone] Encounter Details Date Type Department Care Team (Late st Contact Info) Description 07/18/2017 Orders Only General Surgery at [facility] [place] [phone] Ashley Farooq MD [facility] [place] [address] Malignant neoplasm of upper-outer quadrant of left breast in female, estrogen receptor positive (Primary Dx) Social History Tobacco Use Types Packs/Day Years Used Date Smoking Tobacco: Never Smokeless Tobacco: Never Sex and Gender Information Value Date Recorded Sex Assigned at Not on file Gender Identity Not on file Sexual Orientation Not on file documented as of this encounter Plan of Treatment Not on file documented as of this encounter Results * Mammo Diagnostic CAD and Yamil Bilateral (01/14/2018 9:47 AM EDT) Anatomical Region [...] of left breast in female, estrogen receptor positive- Primary Malignant neoplasm of upper-outer quadrant of left breast in female, estrogen receptor positive documented in this encounter Care Teams Commercial Loan Coordinator Relationship Specialty Start Date End Date Angie Alonzo MD [address] [place] [address] PCP - General Family Medicine 06/25/17 documented as of this encounter
--- OUTSIDE RECORDS SUMMARY | 2024-03-11 15:17 | XMS_ITS | Encounter Summary ---
Author Organization [facility] Address [facility] [place] [address] Care Team Providers Care Animal Laboratory Technician Name Role Phone Angie Alonzo MD Primary Care Provider [phone] Reason for Visit * Reason Comments On Treatment Visit Encounter Details Date Type Department Care Team (Late st Contact Info) Description 08/27/2017 8:30 AM EST Office Visit Radiation Oncology at [address] [phone] Bethany Merrill MD [facility] [place] [address] Malignant neoplasm of left female breast, unspecified [...] Sign Reading Time Taken Comments Blood Pressure 175/63 08/27/2017 8:00 AM EST Pulse 77 08/27/2017 8:00 AM EST Temperature 36.5 ??C (97.7 ??F) 08/27/2017 8:00 AM ES T Respiratory Rate 18 08/27/2017 8:00 AM EST Oxygen Saturation 100% 08/27/2017 8:00 AM EST Inhaled Oxygen Concentration - - Weight - - Height - - Body Mass Index - - documented in this encounter Patient Instructions * Patient Instructions* Bethany Merrill MD - 08/27/2017 8:30 AM EST Your last radiotherapy will be on M., 09/02/17. Congratulations! Please continue the christian's cream. Please do not use deodorant other than Ricardo's on your left underarm. Please do not use a straight/regular razor on your left underarm. An electric razor is ok. Please do not expose the irradiated area to sun. Please do not swim in chlorinated water. Saltwater or freshwater is ok. We will mail you a letter with an appointment for followup with me in 1 - 2 months. To discuss the ultrasound result with me, please call [phone]. 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 CURRENT TREATMENT DOSE: 42.56 Gy L breast ANTICIPATED TOTAL DOSE: 42.56 Gy L breast, 52.56 Gy lumpectomy bed L breast Current # of xrt received: 16 L breast Anticipated total # of xrt txs: 16 L breast, 20 lumpectomy bed L breast Evaluation of port verification films: Approved. For details, see electronic film record in [facility]. Changes in Medical Condition: She notes mild tenderness of L nipple when she applies christian's cream to it. The tenderness does not reach a level 1 on 1-10 scale & stops after she stops touching thenipple. No other pain. She has not received communication regarding scheduling US of thyroid. Pain?: See above. Your Medications These changes are accurate as of 08/27/17 8:29 AM. If you have any questions, ask your nurse or doctor. Continued medications, unchanged Dose Details aspirin 81 mg Chew Take 81 mg by mouth daily. 81 mg Refills: 0 atorvastatin 40 mg Tab Commonly known as: LIPITOR Take 40 mg by mouth daily. 40 mg Refills: 0 blood-glucose meter Kit Commonly known as: FREESTYLE 1 each by [facility] [...] this yr. P&SH: Never smoker. Physical Exam: BP 175/63 Pulse 77 Temp 36.5 ??C (97.7 ??F) Resp 18 SpO2 100% A&Ox3, NAD. Mild erythema L breast; skin intact. Imagin07/23/17 Dx'ic [...] She is agreeable to US of thyroid. Abimbola will stop by front man to ask about appt for US of thyroid. I informed her of the atherosclerosis seen on CTsim & that I will arrange for copy of the CTsim report to go to Dr. Alonzo. She will complete xrt 09/02/17. Rtc 1-2 mos. Care of irrad'd skin discussed. She has been rx'd jackson by Dr. Damico, to start 09/16/17. Cc: Dr. Alonzo documented in this encounter Plan of Treatment Not on file documented as of this encounter Visit Diagnoses Diagnosis Malignant neoplasm of left female breast, unspecified estrogen receptor status, unspecified site of breast documented in this encounter Care Teams Animal Laboratory Technician Relationship Specialty Start Date End Date Angie Alonzo MD [address] [place] [address] [facility] [address] [place] [address] PCP - General Family Medicine 06/25/17 documented as of this encounter
--- OUTSIDE RECORDS SUMMARY | 2024-03-11 15:17 | XMS_ITS | Encounter Summary ---
Author Organization [facility] [place] [address] Care Team Providers Care Special Education Teachers Name Role Phone Angie Alonzo MD Primary Care Provider [phone] Encounter Details Date Type Department Care Team (Late st Contact Info) Description 09/10/2017 1:10 PM EDT Laboratory Appointment Lab [address]L [facility] [place] [address] Coagulopathy Social History Tobacco Use Types Packs/Day Years Used Date Smoking Tobacco: Never Smokeless Tobacco: Never Sex and Gender Information Value Date Recorded Sex Assigned at Not on file Gender Identity Not on file Sexual Orientation Not on file documented as of this encounter Plan of Treatment Not on file documented as of this encounter Procedures Procedure Name Priority Date/Time Associated Diagnosis Comments PROTHROMBIN TIME Routine 09/10/2017 1:17 PM EDT Coagulopathy PLATELET COUNT Routine 09/10/2017 1:17 PM EDT Coagulopathy documented in this encounter Results * Platelet count (09/10/2017 1:17 PM EDT) Platelet 297 145 - 357 x10(3)/mc L [facility] Immature Plt % 1.0 0.0 - 7.4 % [facility] Comment: Limitation of the Immature Platelet Fraction (IPF)-May be less reliable when the platelet count is less than 12q075/uL due to statistical imprecision. The IPF value [...] in a decreased state of production. References: [employer] The Clinical Value of the Immature Platelet Fraction (IPF) in Cell Recovery Document Number 10-1143 11/2010 [employer] The Role of the Immature Platelet Fraction (IPF) in the Differential Diagnosis of Thrombocytopenia, Document MKT-10-1209 V05/06/13 P0514 Blood specimen (specimen) 09/10/2017 1:17 PM EDT 09/10/2017 1:23 PM EDT Narrative Resulting Agency Comment Spec In Lab Tutu Garcia MD HEMATOLOGY ORDERABLE S Performing Organization Address [facility] Co de Phone Number [facility] [place] [address] * Prothrombin Time (09/10/2017 1:17 PM EDT) Prothrombin Time 12.9 11.8 - 14.0 sec [facility] International Normalization Ratio 1.0 0.9 - 1.1 [facility] Comment: An INR <2.0 indicates adequate [...] Lab Tutu Garcia MD HEMATOLOGY ORDERABLE S Performing Organization Address [facility] Co de Phone Number [facility] [place] [address] documented in this encounter Visit Diagnoses Diagnosis Coagulopathy Other and unspecified coagulation defects documented in this encounter Care Teams Special Education Teachers Relationship Specialty Start Date End Date Angie Alonzo MD [facility] [address] [place] [address] PCP - General Family Medicine 06/25/17 documented as of this encounter
--- OUTSIDE RECORDS SUMMARY | 2024-03-11 15:17 | XMS_ITS | Encounter Summary ---
Author Organization [facility] Address [facility] [place] [address] Care Team Providers Care Human Resources Supervisor Name Role Phone Adis Franklin MD Primary Care Provider [phone] Reason for Visit * Consultation (Routine) - Closed Specialty Diagnoses / Procedures Referred By Mima t Referred To Contact Hematology and Oncology Diagnoses INCONCULSIVE BX SURGEON WOULD LIKE 2ND OPINIONOF FILMS AND PATH Harmeet Rogers MD [address] [place] [address] [facility] [address] [place] [address] Referral ID Status Reason Start Date Expiration Date Visits Re quested Visits Authorized [id number] Closed 05/17/2017 05/17/2018 1 1 Encounter Details Date Type Department Care Team (Latest Contact Info) Description 05/28/2017 12:51 PM EST - 05/28/2017 1:20 PM EST Hospital Encounter [place] [address] Catherine Ghotra MD [facility] [place] [address] Abnormal finding on breast imaging Discharge Disposition: [...] Name Priority Date/Time Associated Diagnosis Comments MAMMO BREAST US LIMITED LEFT Routine 05/28/2017 1:22 PM EST Abnormal finding on breast imaging documented in this encounter Results * Mammo Breast Us Limited Left (05/28/2017 1:22 PM EST) Anatomical Region Laterality Modality Breast Left Mammography Impressions 05/28/2017 2:11 PM EST Highly suspicious densely shadowing lesion left breast 9:00 radian 3 cm from the nipple for which ultrasound-guided core biopsy is recommended. BI-RADS Category 4: Suspicious Finding - Biopsy Should Be Considered Narrative 05/28/2017 2:11 PM EST EXAMINATION: MAMMO BREAST US LIMITED LEFT CLINICAL HISTORY: abnormal finding TECHNIQUE: I performed high-resolution ultrasound following the technologist. COMPARISON: This study was compared with prior images. Specifically, prior ultrasounds and mammogram performed at an outside facility to assess a left breast lesion which was reported to be benign. No clip left. Nonconcordant result. FINDINGS: High-resolution ultrasound demonstrates that there is a densely shadowing irregular heterogeneously hypoechoic mass in the left breast 9:00 radian 3 cm from the nipple. The dense shadowing produces a pseudotumor effect posterior to the lesion, potentially representing the reason why the lesion was not successfully sampled since the shadowing is more conspicuous than the lesion itself. The lesion measures up to 1.2 cm in maximal diameter and 0.7 cm transverse. Catherine Ghotra MD IMG MAMMO ORDERABLES documented in this encounter Visit Diagnoses Diagnosis Abnormal finding on breast imaging Other (abnormal) findings on radiological examination of breast documented in this encounter Care Teams Human Resources Supervisor Relationship Specialty Start Date End Date Adis Franklin MD PCP - General 05/23/10 06/24/17 documented as of this encounter
--- OUTSIDE RECORDS SUMMARY | 2024-03-11 15:17 | XMS_ITS | Encounter Summary ---
Author Organization [facility] Address [facility] [place] [address] Care Team Providers Care Nanoscience Technician Name Role Phone Angie Alonzo MD Primary Care Provider [phone] Encounter Details Date Type Department Care Team (Late st Contact Info) Description 07/04/2017 11:24 AM EST - 07/04/2017 6:05 PM EST Hospital Encounter [place] [id number] Ashley Gloria MD [facility] [place] [id number] Discharge Disposition: Home Social History Tobacco Use Types Packs/Day Years Used Date Smoking Tobacco: Never Smokeless Tobacco: Never Sex and Gender Information Value Date Recorded Sex Assigned at Not on file Gender Identity Not on file Sexual Orientation Not on file documented as of this encounter Last Filed Vital Signs Vital Sign Reading Time Taken Comments Blood Pressure 147/57 07/04/2017 4:00 PM EST Pulse 54 07/04/2017 4:00 PM EST Temperature 37 ??C (98.6 ??F) 07/04/2017 4:00 PM EST Respiratory Rate 18 07/04/2017 4:00 PM EST Oxygen Saturation 99% 07/04/2017 4:00 PM EST Inhaled Oxygen Concentration - - [...] Dr. Gloria in 2-3 weeks Please call [phone] to confirm date and time of your appointment if you do not hear from us inthe week. Future Appointments Date Time Provider Department Center 07/17/2017 8:45 AM Ashley Gloria MD [facility] 07/17/2017 9:30 AM Kalyan Damico MD [facility] 07/22/2017 9:[address] [facility] 07/22/2017 10:00 AM Bethany Merrill MD [facility] Call Doctor for: Worsening redness or drainage from your incision lasting longer than 5 days following surgery Any foul-smelling drainage from the incision Fevers greater than 101 degrees F Persistent nausea or vomiting (this may be related to opioid pain medications) Phone number for questions: [phone] before 5 PM weekdays [phone] after 5 PM and on weekends/holidays documented [...] not concordant, so she was sent to [facility] and had repeat biopsy which did show a low grade, ER+WV+HER2 neg breast cancer. She is here today [...] daily., Disp: , Rfl: ??? blood-glucose meter ([employer]STYLE) Kit, 1 each [place] [facility]Non-Drug; Combo Route) route as needed forOther., Disp: [...] Screening mammo: 05/22/17 COMPARISONS: Multiple prior mammograms 2008 ? FINDINGS: The breasts are predominantly [...] without necrosis). Microcalcifications: ??N/A ER + >90% WV + >90% HER2 neg ?? 05/20/17 Needle [...] a mammogram detected 1cm left breast cancer ER+WV+HER2 neg. We discussed the treatment options of [...] Questions answered. Ashley Gloria MD 07/04/2017 Pager [phone] documented in this encounter Miscellaneous Notes * Op Note - Ashley Gloria MD - 07/04/2017 4:49 PM EST [facility] Operative Note Patient Name: Abimbola Dumas : [id number] MR#: [id number] Case Date: 07/04/2017 Surgeon: Surgeon(s) and Role: [...] DERM) Left breast partial mastectomy OR 27, #[id number] LEFT BREAST CANCER Left breast partial mastectomy Yes 07/04/2017 3:26 PM Time removed from patient: 3:22 PM SPECIMEN TO PATHOLOGY (SURGICAL OR DERM) Left axillary sentinel lymph node #1 OR 27, #[id number] LEFT BREAST CANCER Left axillary sentinel lymph [...] a mammogram detected 1cm left breast cancer ER+WV+HER2 neg. Plan for Left breast partial mastectomy [...] Operative Note Patient Name: Abimbola Dumas : [id number] MR#: [id number] Case Date: 07/04/2017 Surgeon: Surgeon(s) and Role: [...] DERM) Left breast partial mastectomy OR 27, #[id number] LEFT BREAST CANCER Left breast partial mastectomy Yes 07/04/2017 3:26 PM Time removed from patient: 3:22 PM SPECIMEN TO PATHOLOGY (SURGICAL OR DERM) Left axillary sentinel lymph node #1 OR 27, #[id number] LEFT BREAST CANCER Left axillary sentinel lymph [...] PM EST 07/04/2017 3:47 PM EST Narrative [facility] - 07/04/2017 3:47 PM EST Specimen requisition ordered. ??Separate Pathology report to follow Ashley Pink MD PATHOLOGY/CYTOLO GY ORDERABLES Performing Organization Address [facility] Co de Phone Number [facility] [place] [address] * Specimen to Pathology (surgical or derm) (07/04/2017 3:26 PM EST) AP Specimen 07/04/2017 3:26 PM EST 07/04/2017 3:26 PM EST Narrative [facility] - 07/04/2017 3:26 PM EST Specimen requisition ordered. ??Separate Pathology report to follow Ashley Pink MD PATHOLOGY/CYTOLO GY ORDERABLES Performing Organization Address [facility]/ZIP Co de Phone Number [facility] [place] [address] * Surgical Pathology Report (07/04/2017 3:22 PM EST) Final Diagnosis [id number] ? Location: SD; SD36; A The signing pathologist has (i) examined [...] ?? Invasive ductal carcinoma ? Histologic Grade (Lawrence Histologic Score) ?Glandular (Acinar) / Tubular Differentiation: [...] Lymph Nodes Examined: ?1 ? Number of [place] Nodes Examined: ?1 Pathologic Stage Classification (pTNM, AJCC 8th Edition) ? Primary Tumor (Invasive Carcinoma) (pT): ?pT1b ? Regional Lymph Nodes (pN) ?Category (pN): ?? pN0 Tumor Block(s): ?? B12 Normal Block(s): ?? B6 . DIAGNOSIS 2016 AJCC 8th Edition CAP Annual Release Electronically signed by: ??Natty Mederos DO Verified: ??07/12/2017 ?Pathologist Performed at: ??-[facility] Dept. of Pathology, [place], [place] ADDITIONAL STUDIES Immunohistochemistry Studies: Formalin-fixed, paraffin-embedded [...] in slice V. . SPECIMEN PROCESSING SECTIONS/PROCESSING: (1)livestock sales representative sections of slice I, yellow margin; (2)livestock sales representative sections of slice II; (3-7) full-thickness section ??slice IV; (8-13) full-thickness slice V with green margin in cassette 8, black margin in cassette 9, black/orange margin in cassette 10 orange margin in cassette 11 and 12 (includes biopsy clip site) and central edge of biopsy site in cassette 13; (14)livestock sales representative sections of slice ; (15-16)representativ e sections of slice VII; (17) livestock sales representative sections of slice IX, red/blue margin. (R17) Ischemic Time: 120 minutes ??pps 07/12/2017 9:43 AM EST [facility] BREAST STRUCTURE / Unknown 07/04/2017 3:22 PM EST 07/04/2017 3:22 PM EST BREAST STRUCTURE / Unknown 07/04/2017 3:22 PM EST 07/04/2017 3:22 PM EST Ashley Pink MD PATHOLOGY/CYTOLO GY ORDERABLES [facility] [place] [address] documented in this encounter Visit Diagnoses Not [...] Given 07/04/2017 4:57 PM EST 1,000 mg oxyCODONE (ROXICODONE) immediate release tablet 5 [...] (Intra-Procedure), Indication for (Active or Suspected): Prophylaxis 1459 (Given - Provid er: Panchito Velasquez CRNA) PRN Medication Order 07/02/2017 07/03/2017 07/04/2017 acetaminophen (TYLENOL) tablet 1,000 mg (COMPLETED) 1,000 mg, Oral, ONCE PRN, 1 dose, Starting on Lawanda 07/04/17 at 1631, Until [place]anda 07/04/17 at 1657, Pain, Maximum dose of acetaminophen is 4000 mg from all sources in 24 hours., Routine 165 (Given - Provid er: Annika Espinoza RN) BUpivacaine (PF) (MARCAINE) 0.5 % (5 mg/mL) injection (CANCELED) ONCE PRN, Starting on Lawanda 07/04/17 at 1557, Until Lawanda 07/04/17 at 2006, Intra-Operative (Intra-Procedure), Routine 1557 (Given - Provid er: Ashley Pink MD - Comment: 0.5% bupivacaine mixed 1:1 with 1% lidocaine. Total of 16 ml of mixture used.) lidocaine (XYLOCAINE) 10 mg/mL (1 %) injection (CANCELED) ONCE PRN, Starting on Lawanda 07/04/17 at [...] 07/04/17 at 1744, Pain, PACU Recovery, Routine 1744 (Given - Provid er: Annika Espinoza RN) documented in this encounter Care Teams Nanoscience Technician Relationship Specialty Start Date End Date Angie Alonzo MD [address] [place] [address] PCP - General Family Medicine 06/25/17 documented as of this encounter
--- OUTSIDE RECORDS SUMMARY | 2024-03-11 15:17 | XMS_ITS | Encounter Summary ---
Author Organization [facility] Address [facility] [place] [address] Care Team Providers Care Data Warehouse Architect Name Role Phone Angie Alonzo MD Primary Care Provider [phone] Reason for Visit * Reason Comments Advice Only Encounter Details Date Type Department Care Team (Late st Contact Info) Description 06/19/2017 9:30 AM EST Office Visit H[place] [address] Ashley Farooq MD [facility] [place] [address] Dagmar Lin, RN Malignant neoplasm of lower-outer quadrant of left breast of female, estrogen receptor positive Social History Tobacco Use Types Packs/Day Years Used Date Smoking Tobacco: Never Smokeless Tobacco: Never Sex and Gender Information Value Date Recorded Sex Assigned at Not on file Gender Identity Not on file Sexual Orientation Not on file documented as of this encounter Last Filed Vital Signs Vital Sign Reading Time Taken Comments Blood Pressure 137/56 06/19/2017 9:23 AM EST Pulse 65 06/19/2017 9:23 AM EST Temperature 36.8 ??C (98.2 ??F) 06/19/2017 9:23 AM ES T Respiratory Rate 17 06/19/2017 9:23 AM EST Oxygen Saturation 97% 06/19/2017 9:23 AM EST Inhaled Oxygen Concentration - - Weight 94 kg (207 lb 3.7 oz) 06/19/2017 9:23 AM EST Height 169 cm (5' 6.54) 06/19/2017 9:23 AM EST Body Mass Index 32.91 06/19/2017 9:23 AM EST documented in this encounter Progress Notes * Ashley Farooq MD - 06/19/2017 9:30 AM EST Surgical Oncology New Visit Note Reason for Visit: Abimbola Dumas is a 71 y.o. female was referred by Adis Franklin for evaluation of left breast cancer. HPI:Abimbola Dumas is a 71F with PMH pre-DM, stroke about 15yr ago without deficits, HTN who has lapsedin screening mammogram for 2 years. On recent screening mammo a new small mass was identified. She underwent biopsy which came back as benign, but was not concordant, so she was sent to [facility] and had repeat biopsy which did show a low grade, ER+OK+HER2 neg breast cancer. She is here today to discuss n ext steps in management. Abimbola does not do regular self breast [...] breast. Negative family history of breast cancer. Overall she feels quite well. Weight is stable and appetite is good. Denies fatigue. No headaches. No chest pain or SOB. No abd pain or blood in the stool. No new bony pain or tenderness. Stable arthritic pain in hip and knees. Is active with regular scheduled exercise. Active Ambulatory Problems Diagnosis Date Noted ??? No Active Ambulatory Problems Resolved Ambulatory Problems Diagnosis Date Noted ??? No Resolved Ambulatory Problems Past Medical History: Diagnosis Date ??? Arthritis ??? Diabetes mellitus ??? GERD (gastroesophageal reflux disease) ??? Hypertension ??? Stroke Past Surgical History: Procedure Laterality Date ??? BREAST SURGERY R lumpectomy, benign ??? CHOLECYSTECTOMY ??? HYSTERECTOMY ??? ORTHOPEDIC SURGERY R hip Current Outpatient Prescriptions: ??? pantoprazole (PROTONIX) 20 [...] blood-glucose meter (FREESTYLE) Kit, 1 each [place] [facility] [place]Non[place]rug; Combo Route) route as [...] ORAL), Take by mouth., Disp: , Rfl: DRUG ALLERGIES: Allergies as of 06/19/2017 - Review Complete 06/19/2017 Allergen Reaction Noted ??? Penicillins 06/19/2017 SOCIAL HISTORY: Social History Social History ??? Marital status: Unknown Spouse name: N/A ??? Number of children: N/A ??? Years of education: N/A Occupational History ??? Not on file. Social History Main Topics ??? Smoking status: Never Smoker ??? Smokeless tobacco: Never Used ??? Alcohol use Not on file ??? Drug use: Not on file ??? Sexual activity: Not on file Other Topics Concern ??? Not on file Social History Narrative lives with . Denies smoking or ETOH use Family History Problem Relation Age of Onset ??? Lung Cancer Sister smoker ??? Breast Cancer Neg Hx ??? Ovarian Cancer Neg Hx REVIEW OF SYSTEMS: A 12 point complete review of systems was obtained from the patient and confirmed by me. It was negative except for what was stated in the HPI . She otherwise denies heart disease,lung disease, and infectious diseases. PHYSICAL EXAMINATION: Constitutional: This is a 71 y.o. female [...] strength Skin: warm, dry, good turgor, non-icteric. DATA REVIEWED: 1) Imaging reviewed by me with the radiologist: Screening mammo: 05/22/17 COMPARISONS: Multiple prior mammograms 2 2008 ?? FINDINGS: The breasts are predominantly fatty density. [...] on repeat ultrasoundin March. 0.9 cm Mass Upper Inner Quadrant 9 OClock 3 cm from the nipple 2) Pathology 05/28/17 Needle biopsies: Left breast. Diagnosis: 1. Invasive ductal carcinoma, low grade. ?2. 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 Microcalcifications: ??N/A ER + >90% OK + >90% HER2 neg 05/20/17 Needle biopsies: ?Left breast Diagnosis: ?Scant benign breast and adipose tissue (see Discussion) Microcalcifications: ??N/A NOT CONCORDANT* 3) Labs Recent Results (from the past 24 hour(s)) Comprehensive metabolic panel (non-fasting) Result Value Ref Range Glucose Lvl 140 65 - 199 mg/dL BUN 24 (H) 8 - 18 mg/dL Creatinine 0.69 (L) 0.70 - 1.20 mg/dL Sodium 144 135 - 145 mmol/L Potassium 3.7 3.5 - 5.0 mmol/L Chloride 102 98 - 107 mmol/L CO2 27 22 - 31 mmol/L Anion Gap 15 5 - 15 mmol/L Calcium 9.7 8.5 - 10.5 mg/dL Total Protein 7.3 6.1 - 8.0 gm/dL Albumin 4.2 3.2 - 5.2 gm/dL AST 17 0 - 30 unit/L ALT 16 0 - 30 unit/L Alk Phos 63 40 - 104 unit/L Total Bilirubin 0.4 0.2 - 1.3 mg/dL Estimated GFR >60 >=60 Hemogram Result Value Ref Range WBC 8.1 4.0 - 9.5 x10(3)/mcL RBC 4.81 4.00 - 5.21 x10(6)/mcL Hemoglobin 14.6 11.7 - 15.5 gm/dL Hematocrit 43.0 35.7 - 45.8 % MCV 89.4 82.6 - 94.4 fL MCH 30.4 27.1 - 32.0 pg MCHC 34.0 31.7 - 35.0 gm/dL Platelets 304 145 - 357 x10(3)/mcL RDWSD 43.2 37.0 - 46.0 fL RDWCV 13.2 11.5 - 14.1 % MPV 8.8 7.6 - 12.9 fL nRBC % Auto 0.0 % nRBC Abs Auto 0.000 0.000 - 0.000 x10(3)/mcL Differential, Automated Result Value Ref Range Neutrophils % 71.6 % Neutr Abs (ANC) 5.77 1.70 - 6.10 x10(3)/mcL Lymphocytes % 17.6 % Lymphocytes Abs 1.4 0.9 - 3.2 x10(3)/mcL Monocytes % 9.1 % Monocyte Abs 0.7 0.3 - 0.9 x10(3)/mcL Eosinophils % 0.5 % Eosinophils Abs 0.0 0.0 - 0.4 x10(3)/mcL Basophils % 0.7 % Basophils Abs 0.1 0.0 - 0.1 x10(3)/mcL Immature Gran % 0.50 % Missy Gran Abs 0.04 0.00 - 0.04 x10(3)/mcL Impression: Abimbola Dumas is a 71 y.o. female with PMH pre DM, stroke, HTN who has a mammogram detected 1cm left breast cancer ER+OK+HER2 neg. We discussed the treatment options of [...] like to proceed with plan as follows: Plan: 1) Left breast partial mastectomy with needle loc, lymphatic mapping, SLNB. I explained the implications, indications and alternatives to the proposed treatment plan as well as the risks, including infection, bleeding/hematoma, need for additional surgery, lymphedema. Consent form has been signed. Same day surgery, out patient. Ashley Farooq MD Surgical Oncology * Dagmar Lin RN - 06/19/2017 9:30 AM EST Comprehensive Breast Program Note Abimbola Dumas is a 71 y.o. female with left breast cancer. I met with the patient and her granddaughter, Blanca, in clinic. Her daughter, Marion, and , Dudley, were in the waiting room. SPECIFIC TEACHIN. Breast Cancer Treatment Handbook (Lalitha Sher, 2012) was received via mail. 2. She understands she will meet with medical and radiation (in [facility]) oncologists after surgery. 3. Contact phone number for questions or concerns in the immediate post- operative period. 4. Comprehensive Breast Program Binder. 5. Post Breast Surgery Exercises handout created by [place] therapists [place] [facility] [place] 6. Breast Cancer Treatment Process care map provided and reviewed. 7. Things to Consider...What I Wish I Knew advice from breast cancer patients handout provided. She verbalized understanding of the plan of care and states all her questions were answered. Fifteen minutes was spent in education and providing support. Abimbola has our contact information. She will schedule surgery on way out (in 4L) today. Pre-op MRI: No Referral to familial counseling: No documented in this encounter Plan of Treatment Not on file documented as of this encounter Visit Diagnoses Diagnosis Malignant neoplasm of lower-outer quadrant of left breast of female, estrogen receptor positive documented in this encounter Care Teams Data Warehouse Architect Relationship Specialty Start Date End Date Angie Alonzo MD [facility] [address] [place] [address] PCP - General Family Medicine 06/25/17 documented as of this encounter
--- OUTSIDE RECORDS SUMMARY | 2024-03-11 15:17 | XMS_ITS | Encounter Summary ---
Author Organization [facility] Address [facility] [place] [address] Care Team Providers Care Rental Sales Representative Name Role Phone Angie Alonzo MD Primary Care Provider [phone] Encounter Details Date Type Department Care Team (Late st Contact Info) Description 07/04/2017 2:42 PM EST Anesthesia Event [place] [address] Dusty Steward MD [facility] [place] [address] Panchito Velasquez CRNA [facility] [place] [address] Anesthesia Record Procedure Summary Procedure Name Responsible Anesthesiologist Anesthesia Start Time Anesthesia Stop Time MASTECTOMY PARTIAL (WRVU 10.13) (Left: Breast) Dusty Steward MD 07/04/17 1442 07/04/17 1629 Events Date Time Event Comment 07/04/2017 1442 1442 Start 1446 AN Verify 1446 An Start Data 1451 An Induction 1455 An Intubation 1459 Anesthesia Ready 1543 Break/Relief In Berto gupta CRNA 1601 Break/Relief Out 1616 Extubation/LMA Out 1624 an stop data 1629 Recovery or ICU Handoff Amry ent care was transferred to the destination unit staff after review of the patient's medical history, current anesthetic/surgical status and plan, according to the Provider Handoff Checklist. 1629 Stop Meds Name Total Midazolam 2 mg fentaNYL 100 mcg IV Lidocaine 50 mg Propofol 200 mg Rocuronium 50 mg ePHEDrine 5 mg Ondansetron 8 mg Neostigmine 3 mg Glycopyrrolate 0.4 mg ceFAZolin (ANCEF) 2g in dextrose 5% 100 mL 2 g Lactated Ringers 700 mL * Agents Name O2 Air N2O Sevoflurane (et) * Blood No blood administrations on file. Lines, Drains, and Airways Type Details Placement Removal ETT Mask Ventilation: Ad junct (2); ETT Type: Cuffed, Oral; ETT Size: 7.5 mm; Mac Blade: 3; Notes: Asleep, Pre-O2, Cricoid Pressure, Stylette; Attempts: 1; Laryngoscopy Grade: 2; ETT Placement Verified By: Auscultation, Capnometry, Visual; Secured at Teeth: 21 cm; Inserted by: YASMINE Velasquez; Removal Date: 07/04/17; Removal Time: 1616 07/04/17 1449 by Panchito Velasquez ARCHITECTURAL REPRESENTATIVE 07/04/17 1616 by Panchito Velasquez CRNA Incision 07/04/17; 1511; jose st; 02/26/22 (LDA cleanup utility RA#[id number]); 1715 (LDA cleanup utility RA#[id number]) 07/04/17 1511 by Tania Arroyo RN 02/26/22 1715 by Sonja De Incision 07/04/17; 1512; axil la; 02/26/22 (LDA cleanup utility RA#[id number]); 1715 (LDA cleanup utility RA#[id number]) 07/04/17 1512 by Tania Arroyo RN 02/26/22 1715 by Sonja De documented in this encounter Social History Tobacco Use Types Packs/Day Years Used Date Smoking Tobacco: Never Smokeless Tobacco: Never Sex and Gender Information Value Date Recorded Sex Assigned at Not on file Gender Identity Not on file Sexual Orientation Not on file documented as of this encounter OR Notes * Anesthesia Postprocedure Evaluation - Dusty Steward MD - 07/04/2017 6:46 PM EST [facility] [place] Department of Anesthesiology Post-procedure Note Patient: Abimbola Dumas Procedure Summary Date Anesthesia Start Anesthesia Stop Room / Location 07/04/[address] [facility] OR 27 / [facility] MAIN OR Procedure Diagnosis Surgeon Responsible Provider MASTECTOMY PARTIAL (WRVU 10.13) (Left Breast); MODIFIER WITH NEEDLE LOC., LESION #1 (Left Breast); BIOPSY OR EXCISION OF LYMPH NODE(S), OPEN, DEEP AXILLARY NODE(S) (WRVU 6.43) (Left Axilla); INTRAOPERATIVE ID (MAPPING) SENTINEL LYMPH NODE,INCLUDES INJECTION (WRVU 2.5) (Left ); MODIFIER SENTINEL NODE EXCISION (Left ); ADJ.TISSUE TRANSFER, REARRANGEMENT, TRUNK,10.1 TO 30 SQ CM (WRVU 8.78) (Left Breast) (LEFT BREAST CANCER) Ashley Farooq MD Taenzer, Andreas H, MD All Anesthesia Providers: Anesthesiologist: Dusty Steward MD ARCHITECTURAL REPRESENTATIVE: Panchito Velasquez CRNA Most Recent Vitals: 07/04/17 1600 BP: 147/57 Pulse: 54 Resp: 18 Temp: 37 ??C (98.6 ??F) SpO2: 99% Pain Patient Location: PACU/SDP Level of Consciousness: Awake and Alert Pain Management: Satisfactory Analgesia PONV: None Cardiovascular Status: At Baseline and Hemodynamically Stable Respiratory Status: At Baseline and Room Air Postoperative Fluid Status: Intravascular EUvolemia Possible Anesthetic Complications: NONE apparent at time of evaluation Final Primary Anesthesia Type: General (The anesthetic type performed was the same as planned.) Comments: DUSTY STEWARD MD * Anesthesia Preprocedure Evaluation - Dusty Steward MD - 07/04/2017 7:42 AM EST Pre-Anesthesia Evaluation for: Abimbola Dumas a 71 y.o. female. Procedure(s): MASTECTOMY PARTIAL (WRVU 10.13) MODIFIER WITH NEEDLE LOC., LESION #1 BIOPSY OR EXCISION OF LYMPH NODE(S), OPEN, DEEP AXILLARY NODE(S) (WRVU 6.43) INTRAOPERATIVE ID (MAPPING) SENTINEL LYMPH NODE,INCLUDES INJECTION (WRVU 2.5) MODIFIER SENTINEL NODE EXCISION Patient Active Problem List Diagnosis ??? Malignant [...] Her-2 unamplified,with a Her-2:CEP-17 ratio of 1.2. Past Medical History: Diagnosis Date ??? Arthritis ??? Diabetes mellitus pre-DM ??? GERD (gastroesophageal reflux disease) ??? Hypertension ??? Stroke Past Surgical History: Procedure Laterality Date ??? BREAST SURGERY R lumpectomy, benign ??? CHOLECYSTECTOMY ??? HYSTERECTOMY ??? ORTHOPEDIC SURGERY R hip Social History Substance Use Topics ??? Smoking status: Never Smoker ??? Smokeless tobacco: Never Used ??? Alcohol use Not on file History Drug Use Not on file Allergies Allergen Reactions ??? Penicillins Medications: MAR and/or home medications have been reviewed. Physical Exam: There were no vitals filed for this visit. There is no height or weight on file to calculate BMI. Airway Assessment: Mallampati: II TM distance: <3 FB Neck ROM: limited Cardiovascular Assessment: cardiovascular exam normal Pulmonary Assessment: pulmonary exam normal Dental Assessment: Misc Assessment: IV access: Peripheral line Anesthesia Plan: ASA 2 general, with a(n) intravenous induction 71 yo lady for Partial left mastectomy and axillary nodes GERD - not well controlled on meds -> ETT CPAP at home, helps GAKIRSTIN Informed Consent: Anesthetic plan and risks discussed with patient. Plan discussed with ARCHITECTURAL REPRESENTATIVE. [facility] Staff Note documented in this encounter Plan of Treatment Not on file documented as of this encounter Visit Diagnoses Not on filedocumented in this encounter Administered Medications Inactive Administered Medications - up to 3 most recent administrations Medication Order MAR Action Action Date Dose Rate Site ceFAZolin (ANCEF) 2g in dextrose 5% 100 mL 2 g, Intravenous, EVERY 3 HOURS, 1 dose, First dose on Lawanda 07/04/17 at 1245, Administer over 30 Minutes, Intra-Operative (Intra-Procedure), Indication for (Active or Suspected): Prophylaxis Given 07/04/2017 2:59 PM EST 2 g ePHEDrine 5 mg/mL multi-dose injection PRN, Starting on Lawanda 07/04/17 at 1559, Until Lawanda 07/04/17 at 1729, Anesthesia Intra-op, Routine Given 07/04/2017 3:59 PM EST 5 mg fentaNYL 50 mcg/mL multi-dose injection PRN, Starting on Lawanda 07/04/17 at 1500, Until Lawanda 07/04/17 at 1729, Pain, Anesthesia Intra-op, Routine Given 07/04/2017 2:57 PM EST 100 mcg glycopyrrolate (ROBINUL) multi-dose injection PRN, Starting on Lawanda 07/04/17 at 1609, Until Lawanda 07/04/17 at 1729, Anesthesia Intra-op, Routine Given 07/04/2017 4:09 PM EST 0.4 mg lactated Ringers infusion CONTINUOUS PRN, Starting on Lawanda 07/04/17 at 1424, Until Lawanda 07/04/17 at 1618, Anesthesia Intra-op New Bag 07/04/2017 2:24 PM EST lidocaine (PF) (XYLOCAINE) 100 mg/5 mL (2 %) injection PRN, Starting on Lawanda 07/04/17 at 1449, Until Lawanda 07/04/17 at 1729, Anesthesia Intra-op, Routine Given 07/04/2017 2:49 PM EST 50 mg midazolam (PF) (VERSED) 1 mg/mL multi-dose injection PRN, Starting on Lawanda 07/04/17 at 1442, Until Lawanda 07/04/17 at 1729, Sleep, Anesthesia Intra-op, Routine Given 07/04/2017 3:00 PM EST 1 mg Given 07/04/2017 2:42 PM EST 1 mg neostigmine (BLOXIVERZ) injection PRN, Starting on Lawanda 07/04/17 at 1609, Until Lawanda 07/04/17 at 1729, Anesthesia Intra-op, Routine Given 07/04/2017 4:09 PM EST 3 mg ondansetron (ZOFRAN) injection PRN, Starting on Lawanda 07/04/17 at 1605, Until Lawanda 07/04/17 at 1729, Nausea, Anesthesia Intra-op, Routine Given 07/04/2017 4:05 PM EST 8 mg propofol (DIPRIVAN) 10 mg/mL bolus injection (Anesthesia) PRN, Starting on Lawanda 07/04/17 at 1451, Until Lawanda 07/04/17 at 1729, Anesthesia Intra-op Given 07/04/2017 4:09 PM EST 50 mg Given 07/04/2017 2:51 PM EST 150 mg rocuronium (ZEMURON) multi-dose injection PRN, Starting on Lawanda 07/04/17 at 1453, Until Lawanda 07/04/17 at 1729, Anesthesia Intra-op, Routine Given 07/04/2017 2:53 PM EST 50 mg documented in this encounter Care Teams Rental Sales Representative Relationship Specialty Start Date End Date Angie Alonzo MD [address] [place] [address] PCP - General Family Medicine 06/25/17 documented as of this encounter
--- OUTSIDE RECORDS SUMMARY | 2024-03-11 15:18 | XMS_ITS | Encounter Summary ---
Author Organization [facility] Address [facility] [place] [address] Care Team Providers Care Digital Account Coordinator Name Role Phone Adis Franklin MD Primary Care Provider [phone] Encounter Details Date Type Department Care Team (Latest Contact Info) Description 11/09/2016 - 11/09/2016 11:59 PM EDT Hospital Encounter [place] [address] Eder Condon MD [facility] [place] [address] Breast pain Discharge Disposition: Home Social History Tobacco [...] FILM LIBRARY STORAGE ONLY ULTRASOUND STUDY Routine 11/09/2016 12:00 AM EDT Breast pain documented in this encounter Results * Film Library- Storage Only Ultrasound Study (11/09/2016 12:00 AM EDT) Narrative [facility] - 05/17/2017 4:10 PM EST This exam is for storage only and is auto-finalizing. Eder Condon MD IMG FILM LIBRARY ORD ERABLES [facility] [place], [place] documented in this encounter Visit Diagnoses Diagnosis Breast pain Mastodynia documented in this encounter Care Teams Digital Account Coordinator Relationship Specialty Start Date End Date Adis Franklin MD PCP - General 05/23/10 06/24/17 documented as of this encounter
--- OUTSIDE RECORDS SUMMARY | 2024-03-11 15:18 | XMS_ITS | Encounter Summary ---
Author Organization [facility] Address [address] [place] [address] Care Team Providers Care Dredge Boat Engineer Name Role Phone Unknown, Provider Primary Care Provider Encounter Details Date Type Department Care Team (Late st Contact Info) Description 01/08/2011 Results Only [facility] Laboratory Services - [facility] ([facility] [address] [place] [phone] Rainer Ramirez MD [address] [place] [id number] Social History Tobacco Use Types Packs/Day Years Used Date Smoking Tobacco: Never Assessed Sex and Gender Information Value Date Recorded Sex Assigned at Not on file Gender Identity Not on file Sexual Orientation Not on file documented as of this encounter Plan of Treatment Not on file documented as of this encounter Procedures Procedure Name Priority Date/Time Associated Diagnosis Comments SURGICAL PATHOLOGY Routine 01/08/2011 0:00 EDT documented in this encounter Results * SURGICAL PATHOLOGY (01/08/2011 0:00 EDT) Pathology Report: SURGICAL PATHOLOGY REPORT ? Reports generated via electronic interface contain original data; ? however they are lacking the format of the original report. ? Caution should be taken when reading/interpreti ng unformatted reports. ? Name: ? HOAR, ABIMBOLA M ? Accession #: ? [id number] ? : ? 1945 (Age: 65) ??F ? Collect Date: ? 01/08/2011 ? Location: ? [facility] ? Receive Date: ? 01/09/2011 ? Provider: RAINER RAMIREZ MD ? Copy to: MATTHEW MEDINA MD ? Final Pathologic Diagnosis: ? Esophagus, 38 cm, biopsy: ? 1. ?Squamocolumnar junctional mucosa with chronic inflammation. ? 2. ? Intestinal metaplasia is present. ? 3. ? Negative for dysplasia. ? 4. ? Gastric mucosa with fundic gland polyp. ? Document reviewed and electronically signed by: ? GONZALO L BRYSON MD ? Report ??Date: 01/11/2011 16:28 ? By the signature above, the attending physician certifies that he/she has ? personally conducted a gross and/or microscopic examination of the described ? specimens and rendered or confirmed the above diagnosis. ? Specimen(s) Received: ? Bx esophagus 38 cm ? 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 Gross Description: ? Received in formalin labelled Hoar, Ubly and biopsy esophagus 38 cm are six petersen-white irregular soft tissues ranging from 0.3 x 0.2 x 0.2 cm to 0.7 x ?? 0.2 x 0.1 cm, submitted in toto in (A1) and (A2). (Amita Lopes)/mpl ? End of Report ? ASHLEY ABDI 01/08/2011 01/09/2011 9:5 4 EDT Rainer Ramirez MD PATHOLOGY ORDERABLE S Performing Organization Address City/State/[facility] Co de Phone Number ASHLEY LOPEZ [facility] [address] [place] [address] documented in this encounter Visit Diagnoses Not on filedocumented in this encounter Care Teams Dredge Boat Engineer Relationship Specialty Start Date End Date Unknown, Provider, PCP - General 11/10/08 08/31/14 documented as of this encounter
--- OUTSIDE RECORDS SUMMARY | 2024-03-11 15:18 | XMS_ITS | Encounter Summary ---
Author Organization [facility] Address [address] [place] [address] Care Team Providers Care Auto Slip Cover Installer Name Role Phone Unknown, Provider Primary Care Provider [phone] Encounter Details Date Type Department Care Team (Late st Contact Info) Description 08/30/2014 Results Only [facility] [phone] Mica Diamond, [address] [place] [address] Social History Tobacco Use Types Packs/Day Years Used Date Smoking Tobacco: Never Assessed Sex and Gender Information Value Date Recorded Sex Assigned at Not on file Gender Identity Not on file Sexual Orientation Not on file documented as of this encounter Plan of Treatment Not on file documented as of this encounter Procedures Procedure Name Priority Date/Time Associated Diagnosis Comments SURGICAL PATHOLOGY Routine 08/30/2014 16 :31 EST documented in this encounter Results * SURGICAL PATHOLOGY (08/30/2014 16:31 EST) Pathology Report: SURGICAL PATHOLOGY REPORT Reports generated via electronic interface contain original data; however they are lacking the format of the original report. Caution should be taken when reading/interpreting unformatted reports. Name: ? ABIMBOLA JONES ? Accession #: ? [id number] ? : ? 1945 (Age: 68) ??F ? Collect Date: ? 08/30/2014 ? Location: ? [facility] ? Receive Date: ? 08/30/2014 ? Provider: MICA DIAMOND DO Copy to: KANDY ZAMORA MD ? Final Pathologic Diagnosis: A. ??SKIN OF NASAL TIP, SHAVE BIOPSY: - Squamous cell carcinoma in situ. ?? - Superficial follicular involvement present. - Squamous cell carcinoma in situ present at peripheral edge of shave biopsy specimen. B. ??SKIN OF PREAURICULAR REGION, LEFT, SHAVE BIOPSY: - Melanocytic nevus, junctional lentiginous type, with unusual architectural features and mild cytologic atypia. - Nevus present at peripheral edge of shave biopsy specimen. ?? Microscopic Description: A-The stratum corneum is thickened by orthokeratosis and parakeratosis. ??The epidermis is of variable thickness with areas of relative hyperplasia. ??The keratinocytes show a variable degree of nuclear atypia that focally involves the full thickness of the epidermis. ??There is nuclear enlargement, dispolarity, and overlap. ??Mitotic figures are noted in superficial layers of the epidermis. ??The dermis is marked by solar elastosis, vascular ectasia, and a lymphohistiocytic infiltrate. ? B-The epidermis shows mild hyperplasia consisting of thin and clubbed rete ridges. ??There is a proliferation of melanocytes within the epidermis that consists of rare nests but is predominated by individual cells in a lentiginous pattern. ??The nests are small and located at the tips of rete ridges. ??The individual melanocytes are generally evenly spaced along the dermal-epidermal junction. ??The melanocytes are slightly enlarged and have dark nuclei. ??There is abundant melanin pigment within the epidermis, stratum corneum, and dermal melanophages. ??(Dr. Garduno)/jacob ?? Document reviewed and electronically signed by: VIJAYA GARDUNO MD Report ??Date: 08/31/2014 15:41 By the signature above, the attending physician certifies that he/she has personally conducted a gross and/or microscopic examination of the described specimens and rendered or confirmed the above diagnosis. Specimen(s) Received: A. ?Nasal tip B. ? Left preauricular Clinical History: Hyperpigmented skin lesions; clinical diagnosis code: ??239.2 ? Gross Description: A. ?Received in formalin labelled with proper patient identification (initials H, I) and nasal tip is a shave biopsy of pink-petersen skin (0.5 x 0.4 x 0.1 cm). There is an eccentric petersen-brown mottled macule that measures 0.5 x 0.3 x 0.1 cm. ??Trisected and entirely submitted in A1. B. ?Received in formalin labelled with proper patient identification (initials H, I) and left preauricular is a shave biopsy of pink-petersen skin (0.3 x 0.2 x 0.1 cm). There is a central petersen-brown mottled macule that measures 0.2 x 0.2 x 0.1 cm. ??Entirely submitted in B1. Gypsy Damico 08/30/2014 05:18 PM End of Report [facility] 08/30/2014 16:3 1 EST 08/30/2014 16:31 EST Mica Diamond DO PATHOLOGY ORDER CHRISS [facility] [address] [place] [address] documented in this encounter Visit Diagnoses Not on filedocumented in this encounter Care Teams Auto Slip Cover Installer Relationship Specialty Start Date End Date Unknown, Provider, PCP - General 11/10/08 08/31/14 documented as of this encounter
--- OUTSIDE RECORDS SUMMARY | 2024-03-11 15:18 | XMS_ITS | Encounter Summary ---
Author Organization [facility] Address [address] [place] [address] Care Team Providers Care Pit Tanner Name Role Phone Unknown, Provider Primary Care Provider [phone] Encounter Details Date Type Department Care Team (Late st Contact Info) Description 02/20/2000 Results Only [facility] [place] [facility] [address] [place] [address] Rainer Ramirez MD [address] [place] [address] Social History Tobacco Use Types Packs/Day Years Used Date Smoking Tobacco: Never Assessed Sex and Gender Information Value Date Recorded Sex Assigned at Not on file Gender Identity Not on file Sexual Orientation Not on file documented as of this encounter Plan of Treatment Not on file documented as of this encounter Procedures Procedure Name Priority Date/Time Associated Diagnosis Comments SURGICAL PATHOLOGY Routine 02/20/2000 0:00 EDT documented in this encounter Results * SURGICAL PATHOLOGY (02/20/2000 0:00 EDT) Pathology Report: SURGICAL PATHOLOGY REPORT Reports generated via electronic interface contain original data; however they are lacking the format of the original report. Caution should be taken when reading/interpreti ng unformatted reports. Name: ? ABIMBOLA JONES ? Accession #: ? [id number] ? : ? 1945 (Age: 54) ??F ? Collect Date: ? 02/20/2000 ? Location: ? [facility] ? Receive Date: ? 02/20/2000 ? Provider: RAINER RAMIREZ MD Copy to: MATTHEW NIXON MD ? Final Pathologic Diagnosis: A. ?Colon, sigmoid, 25 cm, biopsies: 1. ?Benign colonic mucosa with no pathologic features. B. ?Rectum, 10 cm, polypectomy: 1. ?Tubular adenoma; no high grade dysplasia. Document reviewed and electronically signed by: Bety Go MD Report ??Date: 02/22/2000 15:56 By the signature above, the attending physician certifies that he/she has personally conducted a gross and/or microscopic examination of the described specimens and rendered or confirmed the above diagnosis. Specimen(s) Received: A. ?25 cm sigmoid colon biopsy B. ?10 cm rectal polyp Clinical History: ? Change in bowel habits Gross Description: ? Received in Hollande' s fixative labelled Hoar sigmoid colon biopsy- 25 cm are multiple minute fragments of petersen-white soft tissue measuring in aggregate 0.2 x 0.1 x 0.1 cm. ??The specimen is entirely submitted as (A). Received in Hollande' s fixative labelled Hoar and colon polyp @10 cm is a single pedunculated polypoid mass measuring 0.8 x 0.5 x 0.3 cm. ??The specimen is bisected and entirely submitted as (B). ??(Dr. Cleary)/[facility] End of Report [facility] 02/20/2000 02/20/2000 15: 52 EDT Rainer Ramirez MD PATHOLOGY ORDERABLE S [facility] [address] [place] [address] documented in this encounter Visit Diagnoses Not on filedocumented in this encounter Care Teams Pit Tanner Relationship Specialty Start Date End Date Unknown, Provider, PCP - General 11/10/08 08/31/14 documented as of this encounter
--- OUTSIDE RECORDS SUMMARY | 2024-03-11 15:18 | XMS_ITS | Encounter Summary ---
Author Organization [facility] Address [address] [place] [address] Care Team Providers Care Insurance Adjuster Name Role Phone Adis Franklin MD Primary Care Provider [phone] Encounter Details Date Type Department Care Team (Late st Contact Info) Description 09/13/2014 Results Only [facility] [phone] Mica Diamond, [address] [place] [address] Social History Tobacco Use Types Packs/Day Years Used Date Smoking Tobacco: Never Assessed Sex and Gender Information Value Date Recorded Sex Assigned at Not on file Gender Identity Not on file Sexual Orientation Not on file documented as of this encounter Plan of Treatment Not on file documented as of this encounter Procedures Procedure Name Priority Date/Time Associated Diagnosis Comments SURGICAL PATHOLOGY Routine 09/13/2014 15 :45 EDT documented in this encounter Results * SURGICAL PATHOLOGY (09/13/2014 15:45 EDT) Pathology Report: SURGICAL PATHOLOGY REPORT Reports generated via electronic interface contain original data; however they are lacking the format of the original report. Caution should be taken when reading/interpret ing unformatted reports. Name: ? ABIMBOLA JONES ? Accession #: ? [id number] ? : ? 1945 (Age: 68) ??F ? Collect Date: ? 09/13/2014 ? Location: ? [facility] ? Receive Date: ? 09/14/2014 ? Provider: MICA DIAMOND DO Copy to: KANDY ZAMORA MD ? Final Pathologic Diagnosis: A. ??SKIN OF NASAL TIP, SHAVE EXCISION: - Epidermal reparative change and dermal scar. ??See comment. - No residual squamous cell carcinoma in situ identified. B. ??SKIN OF PREAURICULAR REGION, LEFT, SHAVE EXCISION: - Epidermal reparative change and dermal scar. - No residual melanocytic nevus identified. Comment: The patient's prior material ([id number]) has been reviewed in conjunction with the current specimen. ??(Dr. Sneed)/ljn Document reviewed and electronically signed by: JANAK SNEED MD Report ??Date: 09/15/2014 16:56 By the signature above, the attending physician certifies that he/she has personally conducted a gross and/or microscopic examination of the described specimens and rendered or confirmed the above diagnosis. Specimen(s) Received: A. ??Nasal tip (reshave) B. ??Preauricular region, left (reshave) Clinical History: Squamous cell carcinoma in situ and atypia; clinical diagnosis code: ??239.2 Gross Description: A. ?Received in formalin labelled with proper patient identification (initials H, I) and nasal tip is a shave excision of pink-petersen skin (0.9 x 0.8 x 0.1 cm). There is an eccentric nicholas-brown scaly macule with ill defined borders that measures 0.4 x 0.3 x 0.1 cm. ??The specimen is trisected and entirely submitted in A1. B. ?Received in formalin labelled with proper patient identification (initials H, I) and preauricular region left is a shave excision of petersen-park skin (0.6 x 0.6 x 0.1 cm). ??The specimen is bisected and entirely submitted in B1. Troy Rubén 09/15/2014 8:39 AM End of Report [facility] 09/13/2014 15:4 5 EDT 09/14/2014 15:45 EDT Mica Diamond DO PATHOLOGY ORDER CHRISS [facility] [address] [place] [address] documented in this encounter Visit Diagnoses Not on filedocumented in this encounter Care Teams Insurance Adjuster Relationship Specialty Start Date End Date Adis Franklin MD PCP - General 09/01/14 09/16/14 documented as of this encounter
--- OUTSIDE RECORDS SUMMARY | 2024-03-11 15:18 | XMS_ITS | Encounter Summary ---
Author Organization [facility] Address [address] [place] [address] Care Team Providers Care Chemical Cell Changer Name Role Phone Angie Alonzo MD Primary Care Provider [phone] Encounter Details Date Type Department Care Team (Late st Contact Info) Description 02/18/2020 Lab Requisition [facility] Pathology & Laboratory Medicine - [place] [facility] [address] [place] [address] Angie Alonzo MD [address] [phone] Disorder of the skin and subcutaneous tissue, unspecified Social History Tobacco Use Types Packs/Day Years Used Date Smoking Tobacco: Never Assessed Sex and Gender Information Value Date Recorded Sex Assigned at Not on file Gender Identity Not on file Sexual Orientation Not on file documented as of this encounter Plan of Treatment Not on file documented as of this encounter Procedures Procedure Name Priority Date/Time Associated Diagnosis Comments SURGICAL PATHOLOGY Today 02/17/2020 8: 30 EDT Disorder of the skin and subcutaneous tissue, unspecified documented in this encounter Results * SURGICAL PATHOLOGY (02/17/2020 8:30 EDT) Final Diagnosis A. SKIN OF ARM, LEFT FOREARM, SHAVE BIOPSY: - Verruca vulgaris. 02/19/2020 9:19 T [facility] Attestation By the signature below, the attending physician certifies that they have 1) personally conducted a gross and/or microscopic examination of the described specimen(s), and/or personally interpreted the results of laboratory testing of the described specimen(s), and 2) personally rendered or confirmed the above diagnosis. 02/19/2020 9:19 EDT [facility] at 0919 Clinical History New pigmented papule left forearm 02/19/2020 9:19 EDT [facility] Gross Description A. Received in formalin labelled with proper patient identification (initials H, I) and shave biopsy left forearm is a rubbery nodular petersen to park-brown papule, 0.5 x 0.5 x 0.25 cm. The margin is inked. Bisected and entirely submitted in A1. Samantha Greenberg 02/18/2020 17:18 02/19/2020 9:19 EDT [facility] Performing Lab [facility] 02/19/2020 9:19 EDT [facility] Scanned Images 02/19/2020 9:19 EDT [facility] Tissue TISSUE SPECIMEN FROM SKIN / Unknown 02/17/2020 8:30 EDT 02/18/2020 16:27 EDT Angie Alonzo MD PATHOLOGY ORDERABLES [facility] [address] [place] [address] documented in this encounter Visit Diagnoses Diagnosis Disorder of the skin and subcutaneous tissue, unspecified documented in this encounter Care Teams Chemical Cell Changer Relationship Specialty Start Date End Date Angie Alonzo MD [address] [place] [phone] PCP - General 09/17/14 documented as of this encounter
--- OUTSIDE RECORDS SUMMARY | 2024-03-11 15:18 | XMS_ITS | Encounter Summary ---
Author Organization [facility] Address [address] [place] [address] Care Team Providers Care Piledriver Carpenter Name Role Phone Angie Zamora MD Primary Care Provider [phone] Encounter Details Date Type Department Care Team (Late st Contact Info) Description 12/04/2016 Results Only [facility] [phone] Michael Woodruff MD [address] [place] [address] [place] [address] Social History Tobacco Use Types Packs/Day Years Used Date Smoking Tobacco: Never Assessed Sex and Gender Information Value Date Recorded Sex Assigned at Not on file Gender Identity Not on file Sexual Orientation Not on file documented as of this encounter Plan of Treatment Not on file documented as of this encounter Procedures Procedure Name Priority Date/Time Associated Diagnosis Comments SURGICAL PATHOLOGY Routine 12/04/2016 19 :46 EDT documented in this encounter Results * SURGICAL PATHOLOGY (12/04/2016 19:46 EDT) Pathology Report: SURGICAL PATHOLOGY REPORT Reports generated via electronic interface contain original data; however they are lacking the format of the original report. Caution should be taken when reading/interpret ing unformatted reports. Name: ? ABIMBOLA JONES ? Accession #: ? [id number] ? : ? 1945 (Age: 71) ??F ? Collect Date: ? 12/04/2016 ? Location: ? [facility] ? Receive Date: ? 12/04/2016 ? Provider: MICHAEL WOODRUFF MD Copy to: ANGIE ZAMORA MD ? Final Pathologic Diagnosis: BREAST, LEFT, CORE NEEDLE BIOPSY: - Benign breast and adipose tissue. See comment. Comment: Deeper levels examined. The specimen is very small showing predominantly adipose tissue with few benign ducts. No definite lesional tissue is identified. Clinical/radiogra phic correlation and resampling as clinically indicated is recommended. Document reviewed and electronically signed by: RAVIN CONTEH MD Report ??Date: 12/07/2016 09:32 By the signature above, the attending physician certifies that he/she has personally conducted a gross and/or microscopic examination of the described specimens and rendered or confirmed the above diagnosis. Specimen(s) Received: Core needle bx of left breast lesion Clinical History: Left breast lesion Gross Description: ? Received in formalin labelled with proper patient identification (initials H, I) and L breast core needle bx are three yellow-white irregular cylindrical fibrofatty tissue cores (0.3 cm to 1.0 cm in length, and averaging 0.1 cm in diameter). Entirely submitted in 1. Time removed from patient: 1210 hrs on 12/04/2016 Time placed in formalin: 1210 hrs on 12/04/2016 Time out of formalin: 0900 hrs on 12/05/2016 DUDLEY Loza (ASCP) 12/05/2016 9:03 AM End of Report [facility] 12/04/2016 19:4 6 EDT 12/04/2016 19:46 EDT Michael Woodruff MD PATHOLOGY ORDERA CLAUDIA [facility] [address] [place] [address] documented in this encounter Visit Diagnoses Not on filedocumented in this encounter Care Teams Piledriver Carpenter Relationship Specialty Start Date End Date Angie Zamora MD [address] [place] [phone] PCP - General 09/17/14 documented as of this encounter
--- OUTSIDE RECORDS SUMMARY | 2024-03-11 15:18 | XMS_ITS | Clinical Summary ---
Author Organization [facility] Address [address] [place] [address] Care Team Providers Care Dietitian Assistant Name Role Phone Angie Alonzo MD Primary Care Provider [phone] Social History Tobacco Use Types Packs/Day Years Used Date Smoking Tobacco: Never Assessed Interpersonal Safety Answer Date Record ed Physically Hurt Never 02/28/2020 Verbally Threaten Not on file 02/28/2020 Sex and Gender Information Value Date Recorded Sex Assigned at Not on file Gender Identity Not on file Sexual Orientation Not on file Plan of Treatment Health Maintenance Due Date Last Done Comments RSV Immunization ( o r 60+ Years) (1 - 1-dose 60+ series) 2003 Fall Risk Screening 11/18/2008 COVID-19 Vaccine (2022-24 season) 2023 Care Teams Dietitian Assistant Relationship Specialty Start Date End Date Angie Alonzo MD [address] [place] [phone] PCP - General 09/17/14
--- OUTSIDE RECORDS SUMMARY | 2024-03-11 15:18 | XMS_ITS | Encounter Summary ---
Author Organization [facility] Address [address] [place] [address] Care Team Providers Care Certified Endoscopy Technician Name Role Phone Unknown, Provider Primary Care Provider Encounter Details Date Type Department Care Team (Late st Contact Info) Description 02/05/2001 Results Only [facility] [address] [place] [address] Matthew Medina MD [address] [place] [address] Social History Tobacco Use Types Packs/Day Years Used Date Smoking Tobacco: Never Assessed Sex and Gender Information Value Date Recorded Sex Assigned at Not on file Gender Identity Not on file Sexual Orientation Not on file documented as of this encounter Plan of Treatment Not on file documented as of this encounter Procedures Procedure Name Priority Date/Time Associated Diagnosis Comments CYTOPATHOLOGY Routine 02/05/2001 0:00 EDT documented in this encounter Results * CYTOPATHOLOGY (02/05/2001 0:00 EDT) Pathology Report: CYTOPATHOLOGY REPORT Reports generated via electronic interface contain original data; however they are lacking the format of the original report. Caution should be taken when reading/interpreti ng unformatted reports. Name: ? ABIMBOLA JONES ? Accession #: ? [id number] : ? 1945 (Age: 55) ??F ?Collect Date: ? 02/05/2001 Location: ? [facility] ? Receive Date: ? 02/07/2001 Provider: ?MATTHEW MEDINA MD Copy to: ? Specimen/Source: ?Conventional Pap Test, Vagina Last Menstrual Period: ? 1994 Hormonal/Contracep tive Status: ? Premarin Treatment History: ? BASSAM/BSO: 1994 ? SPECIMEN ADEQUACY ? Satisfactory for evaluation. GENERAL CATEGORIZATION ? Within Normal Limits ? Document reviewed and electronically signed by: ? SUMMER Main(ASCP) ? Report Date: ??02/13/2001 10:37 End of Report [facility] 02/05/2001 02/07/2001 Matthew Medina MD PATHOLOGY ORDERABLES [facility] [address] [place] [address] documented in this encounter Visit Diagnoses Not on filedocumented in this encounter Care Teams Certified Endoscopy Technician Relationship Specialty Start Date End Date Unknown, Provider, PCP - General 11/10/08 08/31/14 documented as of this encounter
--- OUTSIDE RECORDS SUMMARY | 2024-03-11 15:18 | XMS_ITS | Encounter Summary ---
Author Organization [facility] Address [facility] [place] [address] Care Team Providers Care Jewish Thought Professor Name Role Phone Adis Franklin MD Primary Care Provider [phone] Encounter Details Date Type Department Care Team (Latest Contact Info) Description 03/06/2012 - 03/06/2012 11:59 PM EDT Hospital Encounter [place] [phone] Eder Condon MD [facility] [place] [address] Discharge Disposition: Home Social History Tobacco Use [...] Associated Diagnosis Comments FILM LIBRARY STORAGE ONLY MAMMO Routine 03/06/2012 12:00 AM EDT documented in this encounter Results * Film Library- Storage Only Mammo (03/06/2012 12:00 AM EDT) Narrative RAD - 05/21/2017 2:54 PM EST This exam is for storage only and is auto-finalizing. Eder Condon MD IMG FILM LIBRARY ORD ERABLES [place], [place] documented in this encounter Visit Diagnoses Not on filedocumented in this encounter Care Teams Jewish Thought Professor Relationship Specialty Start Date End Date Adis Franklin MD PCP - General 05/23/10 06/24/17 documented as of this encounter
--- OUTSIDE RECORDS SUMMARY | 2024-03-11 15:18 | XMS_ITS | Encounter Summary ---
Author Organization [facility] Address [facility] [place] [address] Care Team Providers Care Parking Patroller Name Role Phone Unavailable Primary Care Provider Unavailabl e Encounter Details Date Type Department Care Team (Latest Contact Info) Description 09/16/2006 - 09/16/2006 11:59 PM EDT Hospital Encounter [place] [address] Eder Condon MD [facility] [address] [place] [address] Discharge Disposition: Home Social History Tobacco Use [...] Comments FILM LIBRARY STORAGE ONLY MAMMO Routine 09/16/2006 12:00 AM EDT documented in this encounter Results * Film Library- Storage Only Mammo (09/16/2006 12:00 AM EDT) Narrative [facility] - 05/21/2017 2:55 PM EST This exam is for storage only and is auto-finalizing. Eder Condon MD IMG FILM LIBRARY ORD ERABLES [place], [place] documented in this encounter Visit Diagnoses Not on filedocumented in this encounter
--- OUTSIDE RECORDS SUMMARY | 2024-03-11 15:18 | XMS_ITS | Encounter Summary ---
Author Organization [facility] Address [address] [place] [address] Care Team Providers Care Desizing Machine Back Tender Name Role Phone Angie Alonzo MD Primary Care Provider [phone] Encounter Details Date Type Department Care Team (Late st Contact Info) Description 12/05/2021 Lab Requisition [facility] Pathology & Laboratory Medicine - [address] [address] Outr Resulting Lab, Provider Social History Tobacco Use Types Packs/Day Years [...] Procedure Name Priority Date/Time Associated Diagnosis Comments HEPATITIS C AB W REFLEX TO HCV RNA BY PCR Routine 12/04/2021 7:25 EDT documented in this encounter Results * HEPATITIS C AB W REFLEX TO HCV RNA BY PCR (12/04/2021 7:25 EDT) Hep C Antibody Negative Negative 12/06/2021 10:24 EDT [facility] Blood VENOUS BLOOD / Unknown 12/04/2021 7:25 EDT 12/05/2021 17:47 EDT Provider Outr Resulting Lab CHEMISTRY & BLOOD GAS ORDERABLES [facility] [address] [place] [address] documented in this encounter Visit Diagnoses Not on filedocumented in this encounter Care Teams Desizing Machine Back Tender Relationship Specialty Start Date End Date Angie Alonzo MD [address] [place] [id number] PCP - General 09/17/14 documented as of this encounter
--- OUTSIDE RECORDS SUMMARY | 2024-03-11 15:18 | XMS_ITS | Encounter Summary ---
Author Organization [facility] Address [facility] [place] [address] Care Team Providers Care Splunk Consultant Name Role Phone Adis Franklin MD Primary Care Provider [phone] Encounter Details Date Type Department Care Team (Latest Contact Info) Description 11/09/2016 Hospital Encounter [place] [address] Eder Condon MD [facility] [place] [address] Discharge Disposition: Home Social History Tobacco Use [...] Comments FILM LIBRARY STORAGE ONLY MAMMO Routine 11/09/2016 12:00 AM EDT documented in this encounter Results * Film Library- Storage Only Mammo (11/09/2016 12:00 AM EDT) Narrative [facility] - 05/21/2017 11:37 AM EST This exam is for storage only and is auto-finalizing. Eder Condon MD G FILM LIBRARY ORD ERABLES [facility] [place], [place] documented in this encounter Visit Diagnoses Not on filedocumented in this encounter Care Teams Splunk Consultant Relationship Specialty Start Date End Date Adis Franklin MD PCP - General 05/23/10 06/24/17 documented as of this encounter
--- OUTSIDE RECORDS SUMMARY | 2024-03-11 15:18 | XMS_ITS | Encounter Summary ---
Author Organization [facility] Address [facility] [place] [address] Care Team Providers Care Hogshead Filler Name Role Phone Unavailable Primary Care Provider Unavailabl e Encounter Details Date Type Department Care Team (Latest Contact Info) Description 04/27/2009 - 04/27/2009 11:59 PM EDT Hospital Encounter [place] [address] Eder Condon MD [facility] [place] [address] Discharge Disposition: Home Social History Tobacco Use [...] Comments FILM LIBRARY STORAGE ONLY MAMMO Routine 04/27/2009 12:00 AM EDT documented in this encounter Results * Film Library- Storage Only Mammo (04/27/2009 12:00 AM EDT) Narrative [facility] - 05/21/2017 3:42 PM EST This exam is for storage only and is auto-finalizing. Eder Condon MD IMG FILM LIBRARY ORD ERABLES [place], [place] documented in this encounter Visit Diagnoses Not on filedocumented in this encounter
--- OUTSIDE RECORDS SUMMARY | 2024-03-11 15:18 | XMS_ITS | Encounter Summary ---
Author Organization [facility] Address [facility] [place] [address] Care Team Providers Care Personal Service Workers Name Role Phone Adis Franklin MD Primary Care Provider Encounter Details Date Type Department Care Team (Latest Contact Info) Description 07/21/2014 - 07/21/2014 11:59 PM EST Hospital Encounter [place] [address] Eder Condon MD [facility] [address] [place] [address] Breast pain Discharge Disposition: Home Social History [...] Comments FILM LIBRARY STORAGE ONLY MAMMO Routine 07/21/2014 12:00 AM EST Breast pain documented in this encounter Results * Film Library- Storage Only Mammo (07/21/2014 12:00 AM EST) Narrative [facility] - 05/17/2017 4:11 PM EST This exam is for storage only and is auto-finalizing. Eder Condon MD G FILM LIBRARY ORD ERABLES [facility] [place], [place] documented in this encounter Visit Diagnoses Diagnosis Breast pain Mastodynia documented in this encounter Care Teams Personal Service Workers Relationship Specialty Start Date End Date Adis Franklin MD PCP - General 05/23/10 06/24/17 documented as of this encounter
--- OUTSIDE RECORDS SUMMARY | 2024-03-11 15:18 | XMS_ITS | Encounter Summary ---
Author Organization [facility] Address [address] [place] [address] Care Team Providers Care Floor Specialist Name Role Phone Angie Alonzo MD Primary Care Provider [phone] Encounter Details Date Type Department Care Team (Late st Contact Info) Description 11/13/2019 Lab Requisition [facility] Pathology & Laboratory Medicine - [facility] [address] [place], [place] [address] Outr Resulting Lab, Provider Social History Tobacco [...] Procedure Name Priority Date/Time Associated Diagnosis Comments DO NOT ORDER STANDALONE - BROAD COVID TEST Today 11/13/2019 12:00 EDT COVID-19 TESTING Routine 11/13/2019 12:0 0 EDT documented in this encounter Results * DO NOT ORDER STANDALONE - BROAD COVID TEST (11/13/2019 12:00 EDT) COVID-19 rt-PCR Result NEGATIVE Negative 11/14/2019 10:40 EDT [facility] Comment: 2019-novel Coronavirus (2019-nCoV) not detected by the qRT-PCR assay. Consider testing for other respiratory viruses or re-collecting for 2019-nCoV testing. Note: Optimum timing for peak viral levels during infections caused by 2019-nCoV have not been determined. Collection of multiple specimens from the same patient may be necessary to detect the virus. Limitations Positive results are indicative of active infection with SARS-CoV-2 but do not rule out bacterial infection or co-infection with other viruses. The agent detected may not be the definite cause of disease. In addition, detection of viral RNA may not indicate the presence of infectious virus or that SARS-CoV-2 is the causative agent for clinical symptoms. Negative results do not preclude SARS-CoV-2 infection and should not be used as the sole basis for patient management decisions. Negative results must be combined with clinical observations, patient history, and epidemiological information. False negative results may also occur if amplification inhibitors are present in the specimen or if inadequate numbers of organisms are present in the specimen. Optimum specimen types and timing for peak viral levels during infections caused by SARS-CoV-2 have not been fully determined. Collection of multiple specimens (types and time points) from the same patient may be necessary to detect the virus. The test was validated for use with upper respiratory specimens obtained via nasopharyngeal or oropharyngeal swabs in VTM, UTM, M4, M5, M6, saline, and MTM media. The performance of this test has not been established for other specimens. Specimens collected using other FDA recommended Specimen Collection Materials listed in the FDA COVID-19 Diagnostic [employer] communication (September 24, 2019) are processed with the caveat that they were not all validated for use with this test and the result must be interpreted in this context. Furthermore, a false negative results may occur if a specimen is improperly collected, transported or handled. If the virus mutates in the RT-PCR target region, SARS-CoV-2 may not be detected or may be detected less predictably. Inhibitors or other types of interference may produce a false negative result. An interference study evaluating the effect of common cold medications was not performed. This test is not FDA-cleared but its performance characteristics were established by our CLIA-certified, CAP-accredited, high complexity laboratory in accordance with CLIA regulations, [employer] (CAP) guidelines (Sep 17, 2019), and FDA guidance (Aug 29, 2019). This test is only for use under the Food and Drug Administration's Emergency Use Authorization. Swab ENTIRE NASOPHARYNX / Unknown 11/13/2019 12:00 EDT 11/13/2019 15:18 EDT Provider Outr Resulting Lab MICROBIOLOGY - GENERAL ORDERABLES [facility] * COVID-19 TESTING (11/13/2019 12:00 EDT) COVID-19 rt-PCR Result NEGATIVE Negative 11/14/2019 14:33 EDT [facility] Comment: 2019-novel Coronavirus (2019-nCoV) not detected by the qRT-PCR assay. Consider testing for other respiratory viruses or re-collecting for 2019-nCoV testing. Note: Optimum timing for peak viral levels during infections caused by 2019-nCoV have not been determined. Collection of multiple specimens from the same patient may be necessary to detect the virus. Limitations Positive results are indicative of active infection with SARS-CoV-2 but do not rule out bacterial infection or co-infection with other viruses. The agent detected may not be the definite cause of disease. In addition, detection of viral RNA may not indicate the presence of infectious virus or that SARS-CoV-2 is the causative agent for clinical symptoms. Negative results do not preclude SARS-CoV-2 infection and should not be used as the sole basis for patient management decisions. Negative results must be combined with clinical observations, patient history, and epidemiological information. False negative results may also occur if amplification inhibitors are present in the specimen or if inadequate numbers of organisms are present in the specimen. Optimum specimen types and timing for peak viral levels during infections caused by SARS-CoV-2 have not been fully determined. Collection of multiple specimens (types and time points) from the same patient may be necessary to detect the virus. The test was validated for use with upper respiratory specimens obtained via nasopharyngeal or oropharyngeal swabs in VTM, UTM, M4, M5, M6, saline, and MTM media. The performance of this test has not been established for other specimens. Specimens collected using other FDA recommended Specimen Collection Materials listed in the FDA COVID-19 [employer] communication (September 24, 2019) are processed with the caveat that they were not all validated for use with this test and the result must be interpreted in this context. Furthermore, a false negative results may occur if a specimen is improperly collected, transported or handled. If the virus mutates in the RT-PCR target region, SARS-CoV-2 may not be detected or may be detected less predictably. Inhibitors or other types of interference may produce a false negative result. An interference study evaluating the effect of common cold medications was not performed. This test is not FDA-cleared but its performance characteristics were established by our CLIA-certified, CAP-accredited, high complexity laboratory in accordance with CLIA regulations, [employer] (CAP) guidelines (Sep 17, 2019), and FDA guidance (Aug 29, 2019). This test is only for use under the Food and Drug Administration's Emergency Use Authorization. Performing Lab [facility] [place] 11/14/2019 14:33 EDT [facility] Swab ENTIRE NASOPHARYNX / Unknown 11/13/2019 12:00 EDT 11/13/2019 15:18 EDT Provider Outr Resulting Lab MICROBIOLOGY - GENERAL ORDERABLES [facility] [address] [place] [address] [facility] [place] documented in this encounter Visit Diagnoses Not on filedocumented in this encounter Care Teams Floor Specialist Relationship Specialty Start Date End Date Angie Alonzo MD [address] [place] [phone] PCP - General 09/17/14 documented as of this encounter
--- OUTSIDE RECORDS SUMMARY | 2024-03-11 15:18 | XMS_ITS | Referral Summary ---
Author Organization [facility] Address [address] [place] [address] Care Team Providers Care Reactor Technician Name Role Phone Angie Alonzo MD Primary Care Provider [phone] Social History Tobacco Use Types Packs/Day Years Used Date Smoking Tobacco: Never Assessed Interpersonal Safety Answer Date Record ed Physically Hurt Never 02/28/2020 Verbally Threaten Not on file 02/28/2020 Sex and Gender Information Value Date Recorded Sex Assigned at Not on file Gender Identity Not on file Sexual Orientation Not on file Plan of Treatment Not on file Care Teams Reactor Technician Relationship Specialty Start Date End Date Angie Alonzo MD [address] [place] [phone] PCP - General 09/17/14
--- OUTSIDE RECORDS SUMMARY | 2024-03-11 15:18 | XMS_ITS | Encounter Summary ---
Author Organization [facility] Address [facility] [place] [address] Care Team Providers Care Retort Loader Name Role Phone Adis Franklin MD Primary Care Provider [phone] Encounter Details Date Type Department Care Team (Latest Contact Info) Description 11/06/2016 - 11/06/2016 11:59 PM EDT Hospital Encounter [place] [address] Eder Condon MD [facility] [address] [place] [address] Breast pain Discharge Disposition: Home Social History [...] Comments FILM LIBRARY STORAGE ONLY MAMMO Routine 11/06/2016 12:00 AM EDT Breast pain documented in this encounter Results * Film Library- Storage Only Mammo (11/06/2016 12:00 AM EDT) Narrative [facility] - 05/17/2017 4:11 PM EST This exam is for storage only and is auto-finalizing. Eder Condon MD IMG FILM LIBRARY ORD ERABLES [facility] [place], [place] documented in this encounter Visit Diagnoses Diagnosis Breast pain Mastodynia documented in this encounter Care Teams Retort Loader Relationship Specialty Start Date End Date Adis Franklin MD PCP - General 05/23/10 06/24/17 documented as of this encounter
--- OUTSIDE RECORDS SUMMARY | 2024-03-11 15:18 | XMS_ITS | Encounter Summary ---
Author Organization [facility] Address [facility] [place] [address] Care Team Providers Care Senior Ux Designer Name Role Phone Adis Franklin MD Primary Care Provider [phone] Encounter Details Date Type Department Care Team (Latest Contact Info) Description 12/04/2016 - 12/04/2016 11:59 PM EDT Hospital Encounter [place] [address] [facility] [place] [address] Breast pain Discharge Disposition: Home Social History [...] FILM LIBRARY STORAGE ONLY ULTRASOUND STUDY Routine 12/04/2016 12:00 AM EDT Breast pain documented in this encounter Results * Film Library- Storage Only Ultrasound Study (12/04/2016 12:00 AM EDT) Narrative [facility] - 05/17/2017 4:05 PM EST This exam is for storage only and is auto-finalizing. Eder Condon MD IMG FILM LIBRARY ORD ERABLES [facility] [place], [place] documented in this encounter Visit Diagnoses Diagnosis Breast pain Mastodynia documented in this encounter Care Teams Senior Ux Designer Relationship Specialty Start Date End Date Adis Franklin MD PCP - General 05/23/10 06/24/17 documented as of this encounter
--- OUTSIDE RECORDS SUMMARY | 2024-03-11 15:18 | XMS_ITS | Encounter Summary ---
Author Organization [facility] Address [address] [place] [address] Care Team Providers Care Extended Day Teacher Name Role Phone Unavailable Primary Care Provider Unavailabl e Encounter Details Date Type Department Care Team (Late st Contact Info) Description 11/08/2008 Orders Only [facility] Laboratory Services - [facility] ([facility]) [address] [place] [phone] Rainer Ramirez MD [address] [place] [phone] Social History Tobacco Use Types Packs/Day Years Used Date Smoking Tobacco: Never Assessed Sex and Gender Information Value Date Recorded Sex Assigned at Not on file Gender Identity Not on file Sexual Orientation Not on file documented as of this encounter Plan of Treatment Not on file documented as of this encounter Procedures Procedure Name Priority Date/Time Associated Diagnosis Comments SURGICAL PATHOLOGY Routine 11/08/2008 0:00 EDT documented in this encounter Results * SURGICAL PATHOLOGY (11/08/2008 0:00 EDT) Pathology Report: SURGICAL PATHOLOGY REPORT ? Reports generated via electronic interface contain original data; ? however they are lacking the format of the original report. ? Caution should be taken when reading/interpreti ng unformatted reports. ? Name: ? HOAR, ABIMBOLA M ? Accession #: ? [id number] ? : ? 1945 (Age: 62) ??F ? Collect Date: ? 11/08/2008 ? Location: ? [facility] ? Receive Date: ? 11/08/2008 ? Provider: RAINER RAMIREZ MD ? Copy to: MATTHEW MEDINA MD ? Final Pathologic Diagnosis: ? Esophagus, 38 cm, biopsies: ? 1. 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 ? 2. ? Negative for dysplasia. ? Document reviewed and electronically signed by: ? MALKA MOUNT MD ? Report ??Date: 11/11/2008 10:31 ? By the signature above, the attending physician certifies that he/she has ? personally conducted a gross and/or microscopic examination of the described ? specimens and rendered or confirmed the above diagnosis. ? Specimen(s) Received: ? Esophagus 38 cm bx ? Clinical History: ? Rectal bleed/anemia ? Gross Description: ? Received in Holltheodorae's fixative labelled Hoar, Sewell and esophagus 38 cm ?? biopsy are four pink-petersen, irregular soft tissues ranging from 0.3 x 0.2 x 0.2 ?? cm to 0.4 x 0.2 x 0.1 cm, submitted in toto in (A1) and (A2). (Amita Lopes)/mpl ? End of Report ? [facility] ABDI 11/08/2008 11/08/2008 9:2 1 EDT Rainer Ramirez MD PATHOLOGY ORDERABLE S [facility] [address] [place] [address] documented in this encounter Visit Diagnoses Not on filedocumented in this encounter
--- OUTSIDE RECORDS SUMMARY | 2024-03-11 15:18 | XMS_ITS | Encounter Summary ---
Author Organization [facility] Address [facility] [place] [address] Care Team Providers Care Financial Assistance Specialist Name Role Phone Adis Franklin MD Primary Care Provider [phone] Encounter Details Date Type Department Care Team (Latest Contact Info) Description 04/09/2017 - 04/09/2017 11:59 PM EDT Hospital Encounter [place] [address] Eder Condon MD [facility] [address] [place] [address] Breast pain Discharge Disposition: Home Social History [...] FILM LIBRARY STORAGE ONLY ULTRASOUND STUDY Routine 04/09/2017 12:00 AM EDT Breast pain documented in this encounter Results * Film Library- Storage Only Ultrasound Study (04/09/2017 12:00 AM EDT) Narrative [facility] - 05/17/2017 4:06 PM EST This exam is for storage only and is auto-finalizing. Eder Condon MD IMG FILM LIBRARY ORD ERABLES [facility] [place], [place] documented in this encounter Visit Diagnoses Diagnosis Breast pain Mastodynia documented in this encounter Care Teams Financial Assistance Specialist Relationship Specialty Start Date End Date Adis Franklin MD PCP - General 05/23/10 06/24/17 documented as of this encounter
--- OUTSIDE RECORDS SUMMARY | 2024-03-11 15:18 | XMS_ITS | Encounter Summary ---
Author Organization [facility] Address [address] [place] [address] Care Team Providers Care Turf Farm Worker Name Role Phone Angie Alonzo MD Primary Care Provider [phone] Encounter Details Date Type Department Care Team (Latest Contact Info) Description 09/17/2014 9:41 EDT - 09/17/2014 23:59 EDT Hospital Encounter [address] [address] Unknown, Provider, Discharge Disposition: Home or Self Care Social History Tobacco Use Types Packs/Day Years Used Date Smoking Tobacco: Never Assessed Sex and Gender Information Value Date Recorded Sex Assigned at Not on file Gender Identity Not on file Sexual Orientation Not on file documented as of this encounter Discharge Disposition Disposition Code Departure Means Destination Home or Self [facility] documented in this encounter Plan of Treatment Not on file documented as of this encounter Visit Diagnoses Not on filedocumented in this encounter Care Teams Turf Farm Worker Relationship Specialty Start Date End Date Angie Alonzo MD [address] [place] [phone] PCP - General 09/17/14 documented as of this encounter
--- OUTSIDE RECORDS SUMMARY | 2024-03-11 15:18 | XMS_ITS | Encounter Summary ---
Author Organization [facility] Address [facility] [place] [address] Care Team Providers Care Seasonal Clerk Name Role Phone Adis Franklin MD Primary Care Provider [phone] Encounter Details Date Type Department Care Team (Latest Contact Info) Description 02/05/2011 - 02/05/2011 11:59 PM EDT Hospital Encounter [place] [address] Eder Condon MD [facility] [place] [address] Discharge Disposition: Home Social History Tobacco Use [...] Comments FILM LIBRARY STORAGE ONLY MAMMO Routine 02/05/2011 12:00 AM EDT documented in this encounter Results * Film Library- Storage Only Mammo (02/05/2011 12:00 AM EDT) Narrative [facility] - 05/21/2017 2:55 PM EST This exam is for storage only and is auto-finalizing. Eder Condon MD IMG FILM LIBRARY ORD ERABLES [place], [place] documented in this encounter Visit Diagnoses Not on filedocumented in this encounter Care Teams Seasonal Clerk Relationship Specialty Start Date End Date Adis Franklin MD PCP - General 05/23/10 06/24/17 documented as of this encounter
--- OUTSIDE RECORDS SUMMARY | 2024-03-11 15:18 | XMS_ITS | Encounter Summary ---
Author Organization [facility] Address [facility] [place] [address] Care Team Providers Care Accounts Payable Payroll Coordinator Name Role Phone Adis Franklin MD Primary Care Provider [phone] Encounter Details Date Type Department Care Team (Latest Contact Info) Description 07/08/2013 - 07/08/2013 11:59 PM EST Hospital Encounter [place] [address] Eder Condon MD [facility] [place] [address] Breast pain Discharge Disposition: Home Social History [...] Comments FILM LIBRARY STORAGE ONLY MAMMO Routine 07/08/2013 12:00 AM EST Breast pain documented in this encounter Results * Film Library- Storage Only Mammo (07/08/2013 12:00 AM EST) Narrative [facility] - 05/17/2017 4:12 PM EST This exam is for storage only and is auto-finalizing. Eder Condon MD G FILM LIBRARY ORD ERABLES [facility] [place], [place] documented in this encounter Visit Diagnoses Diagnosis Breast pain Mastodynia documented in this encounter Care Teams Accounts Payable Payroll Coordinator Relationship Specialty Start Date End Date Adis Franklin MD PCP - General 05/23/10 06/24/17 documented as of this encounter
--- OUTSIDE RECORDS SUMMARY | 2024-03-11 15:18 | XMS_ITS | Encounter Summary ---
Author Organization [facility] Address [address] [place] [address] Care Team Providers Care Information Technology Specialist Name Role Phone Angie Alonzo MD Primary Care Provider [phone] Encounter Details Date Type Department Care Team (Latest Contact Info) Description 12/04/2016 12:48 EDT - 12/04/2016 23:59 EDT Hospital Encounter [facility] - [address] [address] Unknown, Provider, Discharge Disposition: Home or Self Care Social History Tobacco Use Types Packs/Day Years Used Date Smoking Tobacco: Never Assessed Sex and Gender Information Value Date Recorded Sex Assigned at Not on file Gender Identity Not on file Sexual Orientation Not on file documented as of this encounter Discharge Disposition Disposition Code Departure Means Destination Home or Self Intermediate documented in this encounter Plan of Treatment Not on file documented as of this encounter Visit Diagnoses Not on filedocumented in this encounter Care Teams Information Technology Specialist Relationship Specialty Start Date End Date Angie Alonzo MD [address] [place] [phone] PCP - General 09/17/14 documented as of this encounter
--- OUTSIDE RECORDS SUMMARY | 2024-03-11 15:18 | XMS_ITS | Encounter Summary ---
Author Organization [facility] Address [facility] [place] [address] Care Team Providers Care Technology Program Manager Name Role Phone Unavailable Primary Care Provider Unavailabl e Encounter Details Date Type Department Care Team (Latest Contact Info) Description 12/03/2007 - 12/03/2007 11:59 PM EDT Hospital Encounter [place] [address] Eder Condon MD [facility] [place] [address] Discharge Disposition: Home Social History Tobacco Use [...] Comments FILM LIBRARY STORAGE ONLY MAMMO Routine 12/03/2007 12:00 AM EDT documented in this encounter Results * Film Library- Storage Only Mammo (12/03/2007 12:00 AM EDT) Narrative [facility] - 05/21/2017 2:53 PM EST This exam is for storage only and is auto-finalizing. Eder Condon MD IMG FILM LIBRARY ORD ERABLES [place], [place] documented in this encounter Visit Diagnoses Not on filedocumented in this encounter
--- OUTSIDE RECORDS SUMMARY | 2024-03-11 15:18 | XMS_ITS | Encounter Summary ---
Author Organization [facility] Address [address] [place] [address] Care Team Providers Care Decorator Inspector Name Role Phone Unknown, Provider Primary Care Provider [phone] Encounter Details Date Type Department Care Team (Latest Contact Info) Description 08/30/2014 15:24 EST - 08/30/2014 23:59 EST Hospital Encounter [address] [address] Unknown, Provider, Discharge Disposition: Home or Self Care Social History Tobacco Use Types Packs/Day Years Used Date Smoking Tobacco: Never Assessed Sex and Gender Information Value Date Recorded Sex Assigned at Not on file Gender Identity Not on file Sexual Orientation Not on file documented as of this encounter Discharge Disposition Disposition Code Departure Means Destination Home or Self Retirement documented in this encounter Plan of Treatment Not on file documented as of this encounter Visit Diagnoses Not on filedocumented in this encounter Care Teams Decorator Inspector Relationship Specialty Start Date End Date Unknown, Provider, PCP - General 11/10/08 08/31/14 documented as of this encounter
== END 2024-03-11 15:11 | disposition home or self-care (01) ==
LOC: NCHCN 15:10
PROVIDERS: PCP Family Medicine; Visit Provider Family Medicine
DX: L21.8 Other seborrheic dermatitis (principal); L98.9 Disorder of the skin and subcutaneous tissue, unspecified
CPT/HCPCS: 88305

== ENCOUNTER 2024-03-19 01:24 | Outpatient (CLI) | payer MEDICARE, SELFPAY ==
--- NOTE | 2024-03-19 | DI.DEXA_ITS ---
Exam(s) XR DEXA BONE DENSITY W/WO BROOKLYNN EXAM: XR DEXA BONE DENSITY W/WO [place] CLINICAL HISTORY: ASYMPTOMATIC MENOPAUSAL STATE Z78.0 TECHNIQUE: Hologic Horizon C densitometer analysis the lumbar spine and left forearm. Lateral surv ey image of the thoracic and lumbar spine. 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 COMPARISON: DEXA scan 10 April 2004, 05 February 2011 and 02 December 2018 FINDINGS: Lateral view of the thoracic and lumbar spine shows no evidence of compression fractures. Bone mineral density measurements of the lumbar spine correspond to a total T-score of 2.0, in the n ormal range. This is not significantly changed from 2019 but represents a 4.4 percent increase from 2003. Theleft forearm bone mineral density measurements correspond to a T-score of the distal 3rd of -1.0 at the lower limit of normal. This is not significantly changed from 2019. The right wrist was scan obed in 2010 which showed a T-score -0.9. The wrist was not analyzed in 2003. IMPRESSION: Normal bone mineral density of the lumbar spine. Forearm bone mineral density is at lower limit of n ormal.
--- NOTE | 2024-03-19 | DI.MAMMO_ITS ---
Exam(s) MG MAMMO SCREENING 60 MIN DUR EXAM: MG MAMMO SCREENING 60 MIN DUR CLINICAL HISTORY: SCREENING MAMMO Z12.31 TECHNIQUE: Mammograms were interpreted according to the usual protocol including computer analysis w Twelvefold CAD system, tomosynthesis and C-view imaging. COMPARISON: 2014 through 2022 from [facility] FINDINGS: The breasts are composed of mainly fatty density , Breast Density category A. No suspicious masses or suspicious microcalcifications are seen in either breast. No abnormal axillary lymph nodes are seen. Surgical clips noted in the medial left breast. Dense ca lcification again noted in the region. Stable skin thickening in the inferomedial left breast. There has been no significant change from prior exams. IMPRESSION: BI-RADS Category 2 - Benign Findings of post lumpectomy and radiation changes. Yearly screening mammography is recommended. Breast Density - Category A, fatty density. A negative radiographic report should not delay biopsy if a dominant or clinically suspicious mass is present. Up to ten percent of cancers are not identified on mammography. A negative report may reinforce clinical impression. Adenosis and dense breasts may obscure an underlying neoplasm. False positive reports average 6 to 10%. Patient will receive a letter notifying them of these results.
== END 2024-03-19 01:44 ==
LOC: DI 01:24
PROVIDERS: PCP Family Medicine; Visit Provider Family Medicine
DX: Z78.0 Asymptomatic menopausal state (principal); Z13.820 Encounter for screening for osteoporosis
CPT/HCPCS: 77063; 77067; 77080

== ENCOUNTER 2024-03-24 12:38 | Outpatient (CLI) | payer MEDICARE, SELFPAY ==
--- NOTE | 2024-03-24 12:45 | RT.EKG_ITS ---
APPROVED REPORT Exam: Resting ECG Reason for Exam: baseline Patient Location: O HR:71 bpm ECG Measurements Heart Rate 71 AXIS OH 144 P -39 QRSd 108 QRS -12 QT 399 T -36 QTc 434 Conclusion Sinus rhythm...normal P axis, V-rate 50- [address]-T abnormalities
== END 2024-03-24 12:39 | disposition home or self-care (01) ==
LOC: DI.CARD 12:52
PROVIDERS: PCP Family Medicine; Referring Provider Family Medicine; Visit Provider Internal Medicine Cardiovascular Disease
DX: R01.1 Cardiac murmur, unspecified (principal)
CPT/HCPCS: 93010

== ENCOUNTER → 2024-03-24 12:38 | Outpatient (BNVA) | payer MEDICARE, SELFPAY | PROVIDERS: PCP Family Medicine; Referring Provider Family Medicine; Visit Provider Internal Medicine Cardiovascular Disease | DX: I25.810 Atherosclerosis of coronary artery bypass graft(s) without angina pectoris (principal); R94.31 Abnormal electrocardiogram [ECG] [EKG]; R01.1 Cardiac murmur, unspecified | CPT/HCPCS: 93005; 99214 ==

== ENCOUNTER → 2024-05-14 14:29 | Outpatient (BNVA) | payer MEDICARE, SELFPAY | PROVIDERS: PCP Family Medicine; Referring Provider Family Medicine | DX: M17.12 Unilateral primary osteoarthritis, left knee (principal) | CPT/HCPCS: 20610; J1010 ==

== ENCOUNTER 2024-08-12 10:24 | Outpatient (REF) | payer MEDICARE, SELFPAY ==
--- OUTSIDE RECORDS SUMMARY | 2024-08-12 10:27 | XMS_ITS | Encounter Summary ---
Author Organization [facility] Address [facility] [place] [address] Care Team Providers Care Psychiatry Physician Name Role Phone Angie Alonzo MD Primary Care Provider [phone] Encounter Details Date Type Department Care Team [...] on filedocumented in this encounter Care Teams Psychiatry Physician Relationship Specialty Start Date End Date Angie Alonzo MD [facility] [address] [place] [address] PCP - General Family Medicine 06/25/17 documented as of this encounter
--- OUTSIDE RECORDS SUMMARY | 2024-08-12 10:27 | XMS_ITS | Encounter Summary ---
Author Organization [facility] Address [facility] [place] [address] Care Team Providers Care Sap Bpc Developer Name Role Phone Angie Alonzo MD Primary Care Provider [phone] Encounter Details Date Type Department Care Team (Latest Contact Info) Description 03/27/2023 8:41 AM EDT - 03/27/2023 11:59 PM EDT Hospital Encounter XRay at [address] [place] [address] Crystal Hess MD [facility] [address] Right foot pain Discharge Disposition: Home Social [...] End Date MULTIVITAMIN ORAL 1 tablet. 09/01/2012 [place]-3 Fatty Acids 100 mg Tablet, Chewable daily. 03/28/2022 b complex vitamins Tablet 1 tablet. 03/28/2022 azelastine (ASTELIN) 137 mcg (0.1 %) Aerosol, [place] SPRAY 1 SPRAY INTO BOTH NOSTRILS ONCE [...] Kit 1 each by [facility].(Non-Drug; Combo Route) route as [...] who have questions please contact the health vp care management that requested your imaging first. ? Electronically signed by: Zuleyka Chavez MD, [facility] ([phone]), at 03/27/2023 10:27 AM Narrative 03/27/2023 10:27 [...] focal soft tissue abnormality. Procedure Note Zuleyka hCavez MD - 03/27/2023 EXAMINATION: XR FOOT MIN [...] patients who have questions please contactthe health vp care management that requested your imaging first. Crystal Hess MD IMG DX ORDERABLES documented in this encounter Visit Diagnoses Diagnosis Right foot pain Pain in limb documented in this encounter Care Teams Sap Bpc Developer Relationship Specialty Start Date End Date Angie Alonzo MD [address] [place] [address] [facility] [address] [place] [address] PCP - General Family Medicine 06/25/17 documented as of this encounter
--- OUTSIDE RECORDS SUMMARY | 2024-08-12 10:27 | XMS_ITS | Encounter Summary ---
Author Organization [facility] Address [facility] [place] [address] Care Team Providers Care Electrical Contractor Name Role Phone Angie Alonzo MD Primary Care Provider [phone] Reason for Visit * Reason Comments Follow-up DOS: 06/27/23 RIGHT ANKLE FUSION- FARO -WOUND CHECK Encounter Details Date Type Department Care Team (Late st Contact Info) Description 09/09/2023 2:00 PM EDT Office Visit Orthopaedics at [address] [phone] Rene Tubbs, PA [facility] [place] [address] Posterior tibial tendon dysfunction s/p R triple [...] NAME: Abimbola Dumas AGE: 77 y.o. MR#: [id number] DATE OF VISIT: 09/09/2023 STAFF: Rene Tubbs [...] Tube Placement Left 04/10/2019 Adis Oliveira MD [facility] INTERVENTIONL RAD JOINT REPLACEMENT hip right ORTHOPEDIC SURGERY R hip OVARY REMOVAL PRO ADJACENT TISSUE TRANSFER/REARRANGE TRUNK 10.1-30.0CM Left 07/04/2017 ADJ.TISSUE TRANSFER, REARRANGEMENT, TRUNK,10.1 TO 30 SQ CM (WRVU 8.78) performed by Ashley Farooq MD at [facility] MAIN OR PRO BX/REMV, LYMPH NODE, DEEP AXILL Left 07/04/2017 BIOPSY OR EXCISION OF LYMPH NODE(S), OPEN, DEEP AXILLARY NODE(S) (WRVU 6.43) performed by Ashley Farooq MD at [facility] MAIN OR PRO CABG, ARTERIAL, SINGLE N/A 03/05/2019 @CABG, USING ARTERIAL GRAFT;SINGLE ARTERIAL GRAFT (WRVU 33.75) performed by Ryan Lynch MD at [facility] MAIN OR [facility] CABG, ARTERY-VEIN, THREE N/A 03/05/2019 @CABG; 3 VENOUS GRAFTS & ARTERIAL GRAFT (WRVU 10.49) performed by Ryan Lynch MD at [facility] MAIN OR [facility] ENDOSCOPY W/VIDEO-ASST VEIN HARVEST, CABG N/A 03/05/2019 ENDOSCOPIC HARVEST VEIN(S) FOR CABG (WRVU 0.31) performed by Ryan Lynch MD at [facility] MAIN OR PRO FUSION FOOT BONES, TRIPLE Right 06/27/2023 ARTHRODESIS, TRIPLE (WRVU 13.42) performed by Crystal Hess MD at [facility] OSC PRO INTRAOP SENTINEL LYMPH ID W/DYE INJECTION Left 07/04/2017 INTRAOPERATIVE ID (MAPPING) SENTINEL LYMPH NODE,INCLUDES INJECTION (WRVU 2.5) performed by Ashley Farooq MD at [facility] MAIN OR PRO MASTECTOMY PARTIAL Left 07/04/2017 MASTECTOMY PARTIAL (WRVU 10.13) performed by Ashley Farooq MD at [facility] MAIN OR FAMILY HX: Family History [...] concerns. The above documentation was completed using [employer] voice recognition software. Rene Tubbs PA-C, [facility] Department of Orthopaedics [facility] Pager [phone] documented in this encounter Plan of Treatment Not on file documented as of this encounter Visit Diagnoses Diagnosis Posterior tibial tendon dysfunction s/p R triple arthrodeiss 06/27/23 (Faro) Other disorders of synovium, tendon, and bursa documented in this encounter Care Teams Electrical Contractor Relationship Specialty Start Date End Date Angie Alonzo MD [facility] [address] [facility] [address] [place] [address] PCP - General Family Medicine 06/25/17 documented as of this encounter
--- OUTSIDE RECORDS SUMMARY | 2024-08-12 10:27 | XMS_ITS | Encounter Summary ---
Author Organization [facility] Address [facility] [place] [address] Care Team Providers Care Union Representative Name Role Phone Angie Alonzo MD Primary Care Provider [phone] Encounter Details Date Type Department Care Team (Late st Contact Info) Description 07/01/2023 [place] [phone] Oma Schultz MD [facility] [place] [address] Social History Tobacco Use Types Packs/Day Years Used Date Smoking Tobacco: Never Smokeless Tobacco: Never Alcohol Use Standard Drinks/Week Comments Never 0 (1 standard drink = 0.6 oz pur e alcohol) very occasional [facility] Inpatient Questions Answer Date Recorded Does [...] on filedocumented in this encounter Care Teams Union Representative Relationship Specialty Start Date End Date Angie Alonzo MD [address] [place], [place] [address] [place] [address] PCP - General Family Medicine 06/25/17 documented as of this encounter
--- OUTSIDE RECORDS SUMMARY | 2024-08-12 10:27 | XMS_ITS | Encounter Summary ---
Author Organization [facility] Address [facility] [place] [address] Care Team Providers Care Paste Mixing Supervisor Name Role Phone Angie Alonzo MD Primary Care Provider [phone] Encounter Details Date Type Department Care Team [...] on filedocumented in this encounter Care Teams Paste Mixing Supervisor Relationship Specialty Start Date End Date Angie Alonzo MD [address] [place] [address] PCP - General Family Medicine 06/25/17 documented as of this encounter
--- OUTSIDE RECORDS SUMMARY | 2024-08-12 10:27 | XMS_ITS | Encounter Summary ---
Author Organization [facility] Address [facility] [place] [address] Care Team Providers Care Mason Tender Restoration Labor Name Role Phone Angie Alonzo MD Primary Care Provider [phone] Encounter Details Date Type Department Care Team [...] on filedocumented in this encounter Care Teams Mason Tender Restoration Labor Relationship Specialty Start Date End Date Angie Alonzo MD [address] [place] [address] PCP - General Family Medicine 06/25/17 documented as of this encounter
--- OUTSIDE RECORDS SUMMARY | 2024-08-12 10:27 | XMS_ITS | Encounter Summary ---
Author Organization [facility] Address [facility] [place] [address] Care Team Providers Care Mold Construction Supervisor Name Role Phone Angie Alonzo MD Primary Care Provider [phone] Encounter Details Date Type Department Care Team (Late st Contact Info) Description 07/29/2023 Orders Only Orthopaedics at [address] [address] Rene Tubbs, PA [facility] [place] [address] Posterior tibial tendon dysfunction s/p R triple [...] who have questions please contact the health furnace caretaker that requested your imaging first. ? Electronically signed by: Marissa Arroyo MD, [facility] ([phone]), at 08/09/2023 8:09 PM Narrative 08/09/2023 8:09 [...] patients who have questions please contactthe health furnace caretaker that requested your imaging first. Electronically signed by: Marissa Arroyo MD, [facility]([phone]), at 08/09/2023 8:09 PM Crystal Hess MD [...] limb documented in this encounter Care Teams Mold Construction Supervisor Relationship Specialty Start Date End Date Angie Alonzo MD [address] [place] [address] PCP - General Family Medicine 06/25/17 documented as of this encounter
--- OUTSIDE RECORDS SUMMARY | 2024-08-12 10:27 | XMS_ITS | Encounter Summary ---
Author Organization [facility] Address [facility] [place] [address] Care Team Providers Care Finishing Powder Press Operator Name Role Phone Angie Alonzo MD Primary Care Provider Encounter Details Date Type Department Care Team (Latest Contact Info) Description 07/09/2023 12:03 PM EST - 07/09/2023 11:59 PM [facility] Hospital Encounter XRay at [address] [place] [address] Crystal Hess MD [facility] [place] [address] Posterior tibial tendon dysfunction (PTTD) of right lower extremity; Right foot pain; Posterior tibial tendon dysfunction s/p R triple arthrodeiss 06/27/23 (Deshawn) Discharge Disposition: Home Social History Tobacco Use Types Packs/Day Years Used Date Smoking Tobacco: Never Smokeless Tobacco: Never Alcohol Use Standard Drinks/Week Comments Never 0 (1 standard drink = 0.6 oz pur e alcohol) very occasional [facility] Inpatient Questions Answer Date Recorded Does Anyone [...] DAY 04/24/2023 MULTIVITAMIN ORAL 1 tablet. 09/01/2012 [place]-3 Fatty Acids 100 mg Tablet, Chewable daily. 03/28/2022 b complex vitamins Tablet 1 tablet. 03/28/2022 azelastine (ASTELIN) 137 mcg (0.1 %) Aerosol, [place] SPRAY 1 SPRAY INTO BOTH NOSTRILS ONCE [...] blood-glucose meter (FREESTYLE) Kit 1 each by [facility].(Non-Drug; Combo Route) route as needed for Other. [...] who have questions please contact the health farm or ranch animal caretaker that requested your imaging first. ? Electronically signed by: Marissa Arroyo MD, [facility] ([phone]), at 07/09/2023 4:17 PM Narrative 07/09/2023 4:17 [...] COMPARISON: Right foot radiographs 03/27/2023. Intraoperative fluoroscopic [id number]/2023. FINDINGS: There is soft tissue swelling around [...] patients who have questions please contactthe health farm or ranch animal caretaker that requested your imaging first. Electronically signed by: Marissa Arroyo MD, [facility]([phone]), at 07/09/2023 4:17 PM Crystal Hess MD IMG DX ORDERABLES documented in this encounter Visit Diagnoses Diagnosis Posterior tibial tendon dysfunction (PTTD) of right lower extremity Right foot pain Pain in limb Posterior tibial tendon dysfunction s/p R triple arthrodeiss 06/27/23 (Deshawn) Other disorders of synovium, tendon, and bursa documented in this encounter Care Teams Finishing Powder Press Operator Relationship Specialty Start Date End Date Angie Alonzo MD [address] [place] [address] PCP - General Family Medicine 06/25/17 documented as of this encounter
--- OUTSIDE RECORDS SUMMARY | 2024-08-12 10:27 | XMS_ITS | Encounter Summary ---
Author Organization [facility] Address [facility] [place] [address] Care Team Providers Care Press Hand Name Role Phone Angie Alonzo MD Primary Care Provider [phone] Encounter Details Date Type Department Care Team (Late st Contact Info) Description 06/04/2023 3:30 PM EST Clinical Support Same Day at [facility] [place] [phone] Social History Tobacco Use Types Packs/Day Years [...] on filedocumented in this encounter Care Teams Press Hand Relationship Specialty Start Date End Date Angie Alonzo MD [address] [place] [address] PCP - General Family Medicine 06/25/17 documented as of this encounter
--- OUTSIDE RECORDS SUMMARY | 2024-08-12 10:27 | XMS_ITS | Encounter Summary ---
Author Organization [facility] Address [facility] [place] [address] Care Team Providers Care Pin Sorter And Bagger Name Role Phone Angie Alonzo MD Primary Care Provider [phone] Encounter Details Date Type Department Care Team [...] on filedocumented in this encounter Care Teams Pin Sorter And Bagger Relationship Specialty Start Date End Date Angie Alonzo MD [address] [place] [address] PCP - General Family Medicine 06/25/17 documented as of this encounter
--- OUTSIDE RECORDS SUMMARY | 2024-08-12 10:27 | XMS_ITS | Encounter Summary ---
Author Organization [facility] Address [facility] [place] [address] Care Team Providers Care Welder Plastic Name Role Phone Angie Alonzo MD Primary Care Provider [phone] Reason for Referral * Physical Therapy (Routine) - Closed Specialty Diagnoses / Procedures Referred By Mima irvera Referred To Contact Physical Therapy Diagnoses Right foot pain Crystal Hess MD [facility] DR [place] [address] Referral ID Status Reason Start Date Expiration Date V isits Requested Visits Authorized [id number] Closed Evaluate and Treat 03/27/2023 09/23/2023 20 20 Reason for Visit * Reason Comments Establish Care Rt foot pain * Consultation (Routine) - Closed Specialty Diagnoses / Procedures Referred By Mima rivera Referred To Contact Orthopaedics Diagnoses Flat feet Pain in right foot Unilateral primary osteoarthritis, left knee Carlos Encinas MD [address] [place] [address] [facility] Orthopaedics [address] [place] [phone] Referral ID Status Reason Start Date Expiration Date V isits Requested Visits Authorized [id number] Closed Consult, Test & Treat PCP Updated and/or Approved 02/11/2023 02/11/2024 6 6 Encounter Details Date Type Department Care Team (Late st Contact Info) Description 03/27/2023 9:30 AM EDT Office [place] [address] Crystal Hess MD [facility] DR [place]OPA[place] [address] Right foot pain; Posterior tibial tendon dysfunction [...] NAME: Abimbola Dumas AGE: 77 y.o. MR#: [id number] DATE OF VISIT: 03/27/2023 DATE OF INJURY/ONSET: [...] Tube Placement Left 04/10/2019 Adis Oliveira MD [facility] INTERVENTIONL RAD JOINT REPLACEMENT hip right ORTHOPEDIC SURGERY R hip OVARY REMOVAL PRO ADJACENT TISSUE TRANSFER/REARRANGE TRUNK 10.1-30.0CM Left 07/04/2017 ADJ.TISSUE TRANSFER, REARRANGEMENT, TRUNK,10.1 TO 30 SQ CM (WRVU 8.78) performed by Ashley Farooq MD at [facility] MAIN OR PRO BX/REMV, LYMPH NODE, DEEP AXILL Left 07/04/2017 BIOPSY OR EXCISION OF LYMPH NODE(S), OPEN, DEEP AXILLARY NODE(S) (WRVU 6.43) performed by Ashley Farooq MD at [facility] MAIN OR PRO CABG, ARTERIAL, SINGLE N/A 03/05/2019 @CABG, USING ARTERIAL GRAFT;SINGLE ARTERIAL GRAFT (WRVU 33.75) performed by Ryan Lynch MD at [facility] MAIN OR PRO CABG, ARTERY-VEIN, THREE N/A 03/05/2019 @CABG; 3 VENOUS GRAFTS & ARTERIAL GRAFT (WRVU 10.49) performed by Ryan Lynch MD at [facility] MAIN OR PRO ENDOSCOPY W/VIDEO-ASST VEIN HARVEST, CABG N/A 03/05/2019 ENDOSCOPIC HARVEST VEIN(S) FOR CABG (WRVU 0.31) performed by Ryan Lynch MD at [facility] MAIN OR PRO INTRAOP SENTINEL LYMPH ID W/DYE INJECTION Left 07/04/2017 INTRAOPERATIVE ID (MAPPING) SENTINEL LYMPH NODE,INCLUDES INJECTION (WRVU 2.5) performed by Ashley Farooq MD at [facility] MAIN OR PRO MASTECTOMY PARTIAL Left 07/04/2017 MASTECTOMY PARTIAL (WRVU 10.13) performed by Ashley Farooq MD at [facility] MAIN OR FAMILY HX: Family History [...] concerns. The above documentation was completed using [employer] voice recognition software. Crystal Hess MD Department of Orthopaedics [facility] Pager: [phone] documented in this encounter Plan of Treatment Scheduled Referrals Name Type Priority Associated Diagnoses Orde r Schedule Referral to Physical Therapy Outpatient Referral Routine Right foot pain Ordered: 03/27/2023 documented as of this encounter Visit Diagnoses Diagnosis Right foot pain Pain in limb Posterior tibial tendon dysfunction (PTTD) of right lower extremity documented in this encounter Care Teams Welder Plastic Relationship Specialty Start Date End Date Angie Alonzo MD [facility] [address] [place] [address] PCP - General Family Medicine 06/25/17 documented as of this encounter
--- OUTSIDE RECORDS SUMMARY | 2024-08-12 10:27 | XMS_ITS | Encounter Summary ---
Author Organization [facility] Address [facility] [place] [address] Care Team Providers Care Foil Spinner Name Role Phone Angie Alonzo MD Primary Care Provider [phone] Reason for Referral * Physical Therapy (Routine) - Closed Specialty Diagnoses / Procedures Referred By Mima rivera Referred To Contact Physical Therapy Diagnoses Posterior tibial tendon dysfunction Physical Therapy, Gilbert Marinelli [address],[facility] [address] [place] [address] Referral ID Status Reason Start Date Expiration Date V isits Requested Visits Authorized [id number] Closed Evaluate and Treat 08/09/2023 02/05/2024 12 12 Reason for Visit * Reason Comments Follow-up Right ankle fusion w ound check Encounter Details Date Type Department Care Team (Late st Contact Info) Description 08/09/2023 11:00 AM EST Office Visit Orthopaedics at [address] [phone] Rene Tubbs, PA [facility] [place] [address] Posterior tibial tendon dysfunction s/p R triple [...] NAME: Abimbola Dumas AGE: 77 y.o. MR#: [id number] DATE OF VISIT: 08/09/2023 STAFF: Rene Tubbs [...] Placement Left 04/10/2019 Adis Oliveira MD [facility] INTERVENTIONL RAD JOINT REPLACEMENT hip right ORTHOPEDIC SURGERY R hip OVARY REMOVAL PRO ADJACENT TISSUE TRANSFER/REARRANGE TRUNK 10.1-30.0CM Left 07/04/2017 ADJ.TISSUE TRANSFER, REARRANGEMENT, TRUNK,10.1 TO 30 SQ CM (WRVU 8.78) performed by Ashley Farooq MD at [facility] MAIN OR [facility] BX/REMV, LYMPH NODE, DEEP AXILL Left 07/04/2017 BIOPSY OR EXCISION OF LYMPH NODE(S), OPEN, DEEP AXILLARY NODE(S) (WRVU 6.43) performed by Ashley Farooq MD at [facility] MAIN OR PRO CABG, ARTERIAL, SINGLE N/A 03/05/2019 @CABG, USING ARTERIAL GRAFT;SINGLE ARTERIAL GRAFT (WRVU 33.75) performed by Ryan Lynch MD at [facility] MAIN OR [facility] CABG, ARTERY-VEIN, THREE N/A 03/05/2019 @CABG; 3 VENOUS GRAFTS & ARTERIAL GRAFT (WRVU 10.49) performed by Ryan Lynch MD at [facility] MAIN OR [facility] ENDOSCOPY W/VIDEO-ASST VEIN HARVEST, CABG N/A 03/05/2019 ENDOSCOPIC HARVEST VEIN(S) FOR CABG (WRVU 0.31) performed by Ryan Lynch MD at [facility] MAIN OR PRO FUSION FOOT BONES, TRIPLE Right 06/27/2023 ARTHRODESIS, TRIPLE (WRVU 13.42) performed by Crystal Hess MD at [facility] OSC PRO INTRAOP SENTINEL LYMPH ID W/DYE INJECTION Left 07/04/2017 INTRAOPERATIVE ID (MAPPING) SENTINEL LYMPH NODE,INCLUDES INJECTION (WRVU 2.5) performed by Ashley Farooq MD at [facility] MAIN OR PRO MASTECTOMY PARTIAL Left 07/04/2017 MASTECTOMY PARTIAL (WRVU 10.13) performed by Ashley Farooq MD at [facility] MAIN OR FAMILY HX: Family History [...] concerns. The above documentation was completed using Artify It voice recognition software. Rene Tubbs PA-C, [facility] Department of Orthopaedics [facility] Pager [phone] documented in this encounter Plan of Treatment [...] bursa documented in this encounter Care Teams Foil Spinner Relationship Specialty Start Date End Date Angie Alonzo MD [address] [place] [address] PCP - General Family Medicine 06/25/17 documented as of this encounter
--- OUTSIDE RECORDS SUMMARY | 2024-08-12 10:27 | XMS_ITS ---
Author Organization [facility] Address [facility] [place] [address] Care Team Providers Care First Coat Operator Name Role Phone Angie Zamora MD Primary Care Provider [phone] Active Problems Problem Noted Date Diagnosed Date [...] treatments are documented for this patient in [facility]. 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 Radiation [place] [place] Protocol Radiation Boost yes Total Dosage of [...] Breast self exam: monthly Possible late and long-term effects of treatment: Tamoxifen side effects: Side [...] to minimize this risk and to promote long-term good shoulder range of motion Lymphedema of [...] to a very low level to reduce long-term effects on the heart. PCP follow up: [...] one drink a day. Nutrition: Follow the [place] Cancer Society Guidelines that include the following: [...] Helpful websites www. cancer.gov -- National Cancer [place] www. nccn.org -- National Comprehensive Cancer Network www. canceradvocacy. org --National Coalition for Cancer Survivorship www. livestrong. org -- Livestrong Survivor Care www. acscsn.org -- Cancer Survivors Network Survivorship care provider contacts FOUNDRY SUPERVISOR: Iris Cohn
--- OUTSIDE RECORDS SUMMARY | 2024-08-12 10:27 | XMS_ITS | Encounter Summary ---
Author Organization [facility] Address [facility] [place] [address] Care Team Providers Care Senior Microsoft Consultant Name Role Phone Angie Alonzo MD Primary Care Provider [phone] Encounter Details Date Type Department Care Team (Latest Contact Info) Description 09/09/2023 12:47 PM EDT - 09/09/2023 11:59 PM EDT Hospital Encounter XRay at [address] [phone] Posterior tibial tendon dysfunction s/p [...] Route) route. MULTIVITAMIN ORAL 1 tablet. 09/01/2012 [place]-3 Fatty Acids 100 mg Tablet, Chewable daily. 03/28/2022 b complex vitamins Tablet 1 tablet. 03/28/2022 azelastine (ASTELIN) 137 mcg (0.1 %) Aerosol, [place] SPRAY 1 SPRAY INTO BOTH NOSTRILS ONCE [...] who have questions please contact the health rn care transition that requested your imaging first. ? Electronically signed by: Marissa Arroyo MD, [facility] ([phone]), at 09/09/2023 2:57 PM Narrative 09/09/2023 2:57 [...] patients who have questions please contactthe health rn care transition that requested your imaging first. Electronically signed by: Marissa Arroyo MD, [facility]([phone]), at 09/09/2023 2:57 PM Crystal Hess MD IMG DX ORDERABLES documented in this encounter Visit Diagnoses Diagnosis Posterior tibial tendon dysfunction s/p R triple arthrodeiss 06/27/23 (Deshawn) Other disorders of synovium, tendon, and bursa documented in this encounter Care Teams Senior Microsoft Consultant Relationship Specialty Start Date End Date Angie Alonzo MD [facility] [address] [place] [address] PCP - General Family Medicine 06/25/17 documented as of this encounter
--- OUTSIDE RECORDS SUMMARY | 2024-08-12 10:27 | XMS_ITS | Encounter Summary ---
Author Organization [facility] Address [facility] [place] [address] Care Team Providers Care Gore Maker Name Role Phone Angie Alonzo MD Primary Care Provider [phone] Encounter Details Date Type Department Care Team (Latest Contact Info) Description 06/27/2023 9:29 AM EST - 06/27/2023 4:13 PM EST Hospital Encounter [place] [phone] Crystal Hses MD [facility] [place] [address] Posterior tibial tendon dysfunction (PTTD) of right [...] closest emergency room or call the hospital calender machine operator helper at [phone] and ask for physician curriculum consultant covering for your physician. Questions or problems after 5pm or on a weekend: Call the [facility] calender machine operator helper at and ask for the physician curriculum consultant covering for your doctor. At 945am [...] after hours and ask for the anesthesiologist curriculum consultant. * Patient Instructions* Dewayne Cerna MD [...] is a short acting narcotic pain medication. Ggmx-kvo-fjaezua Tylenol (acetaminophen) should be taken in addition [...] important in helping to prevent this. An dtyl-lyu-ucnktbe stool softener can also help prevent or [...] Time Provider Department Center 07/09/2023 12:30 PM [facility] DX ROOM 1 Xray [facility] Rad 07/09/2023 1:30 PM Rene Tubbs PA [facility] ORTH 3C [facility] If you have questions or concerns please contact our [facility] office Saturday through Saturday, 8 AM - [...] DAY 04/24/2023 MULTIVITAMIN ORAL 1 tablet. 09/01/2012 [place]-3 Fatty Acids 100 mg Tablet, Chewable daily. 03/28/2022 b complex vitamins Tablet 1 tablet. 03/28/2022 azelastine (ASTELIN) 137 mcg (0.1 %) Aerosol, [place] SPRAY 1 SPRAY INTO BOTH NOSTRILS ONCE [...] blood-glucose meter (FREESTYLE) Kit 1 each by [facility].(Non-Drug; Combo Route) route [...] Tube Placement Left 04/10/2019 Adis Oliveira MD [facility] INTERVENTIONL RAD JOINT REPLACEMENT hip right ORTHOPEDIC SURGERY R hip OVARY REMOVAL PRO ADJACENT TISSUE TRANSFER/REARRANGE TRUNK 10.1-30.0CM Left 07/04/2017 ADJ.TISSUE TRANSFER, REARRANGEMENT, TRUNK,10.1 TO 30 SQ CM (WRVU 8.78) performed by Ashley Farooq MD at [facility] OR [facility] BX/REMV, LYMPH NODE, DEEP AXILL Left 07/04/2017 BIOPSY OR EXCISION OF LYMPH NODE(S), OPEN, DEEP AXILLARY NODE(S) (WRVU 6.43) performed by Ashley Farooq MD at [facility] OR [facility] CABG, ARTERIAL, SINGLE N/A 03/05/2019 @CABG, USING ARTERIAL GRAFT;SINGLE ARTERIAL GRAFT (WRVU 33.75) performed by Ryan Lynch MD at [facility] OR [facility] CABG, ARTERY-VEIN, THREE N/A 03/05/2019 @CABG; 3 VENOUS GRAFTS & ARTERIAL GRAFT (WRVU 10.49) performed by Ryan Lynch MD at [facility] OR [facility] ENDOSCOPY W/VIDEO-ASST VEIN HARVEST, CABG N/A 03/05/2019 ENDOSCOPIC HARVEST VEIN(S) FOR CABG (WRVU 0.31) performed by Ryan Lynch MD at [facility] OR PRO INTRAOP SENTINEL LYMPH ID W/DYE INJECTION Left 07/04/2017 INTRAOPERATIVE ID (MAPPING) SENTINEL LYMPH NODE,INCLUDES INJECTION (WRVU 2.5) performed by Ashley Farooq MD at [facility] MAIN OR PRO MASTECTOMY PARTIAL Left 07/04/2017 MASTECTOMY PARTIAL (WRVU 10.13) performed by Ashley Farooq MD at [facility] MAIN OR Home Medications: Medications Prior to Admission Medication Sig Dispense Refill Last Dose MULTIVITAMIN ORAL 1 tablet. [place]-3 Fatty Acids 100 mg Tablet, Chewable daily. b complex vitamins Tablet 1 tablet. empagliflozin (Jardiance) 10 mg tablet daily. 06/22/2023 pantoprazole (PROTONIX) 20 mg Tablet, Delayed Release (E.C.) Take 20 mg by mouth daily. 06/27/2023 aspirin 81 mg Tablet, Chewable Take 81 mg by mouth daily. 06/26/2023 azelastine (ASTELIN) 137 mcg (0.1 %) Aerosol, [place] SPRAY 1 SPRAY INTO BOTH NOSTRILS ONCE [...] blood-glucose meter (FREESTYLE) Kit 1 each by [facility].(Non-Drug; Combo Route) route [...] Delphine procedure. Patient Pharmacy for outpatient medications: [facility] Pain medications to prescribe:Tramadol, ibuprofen and tylenol alternating WB status: NWB x 6 weeks Postop Dressing: Splint - leave in place until clinic follow up DVT prophylaxis: ASA 81 mg BID x 6 weeks Follow up: 2 week(s) documented in this encounter Miscellaneous Notes * Op Note - Crystal Hess MD - 06/27/2023 12:23 PM EST [facility] Operative Note Patient Name: Abimbola Dumas : [id number] MR#: [id number] Case Date: 06/27/2023 Surgeon: Surgeon(s) and Role: [...] Implant Name Type Inv. Item Serial No. Assistant County Attorney Lot No. LRB No. Used Action GRAFT BONE FILLER INJECTABLE 5CC DBM PUTTY ALLOMATRIX ([id number]) (AutoReq) - [id number] IMPLANTS GRAFT BONE FILLER INJECTABLE 5CC DBM PUTTY ALLOMATRIX ([id number]) (AutoReq) [id number] UNKNOWN - UNKNOWN Right 1 Implanted GRAFT BONE FILLER 3CC DBM INJECTABLE AUGMENT ([id number]) (AutoReq) - [id number] IMPLANTS GRAFT BONE FILLER 3CC DBM INJECTABLE AUGMENT ([id number]) (AutoReq) [facility] [id number] Right 1 Implanted SCREW 6.5X80MM ALAN PT TI ASNIS III ([id number]) (AutoReq) - [id number] IMPLANTS SCREW 6.5X80MM ALAN PT TI ASNIS III ([id number]) (AutoReq) [employer] [place] Right 2 Implanted SCREW 4.0X50MM ALAN PT TI ASNIS III ([id number]) (AutoReq) - [id number] IMPLANTS SCREW 4.0X50MM ALAN PT TI ASNIS III ([id number]) (AutoReq) [employer] [place] Right 1 Implanted SCREW 4.0X40MM ALAN PT TI ASNIS III ([id number]) (AutoReq) - [id number] IMPLANTS SCREW 4.0X40MM ALAN PT TI ASNIS III ([id number]) (AutoReq) [place] [employer] [place] Right 1 Implanted PLATE Y SHAPE 3 HOLE COMP LCK VARIAX ([id number]) (AutoReq) - [id number] IMPLANTS PLATE Y SHAPE 3 HOLECOMP LCK VARIAX ([id number]) (AutoReq) [place] [employer] [place] Right 1 Implanted PLATE Y SHAPE 4 HOLE COMP LCK VARIAX ([id number]) (AutoReq) - [id number] IMPLANTS PLATE Y SHAPE 4 HOLECOMP LCK VARIAX ([id number]) (AutoReq) [place] [employer] [place] Right 1 Implanted SCREW 3.5X26MM NLCK FT VARIAX ([id number]) (AutoReq) - [id number] IMPLANTS SCREW 3.5X26MM NLCK FT VARIAX ([id number]) (AutoReq) [place] [facility] [place] Right 1 Implanted SCREW 3.5X20MM NLCK FT VARIAX ([id number]) (AutoReq) - [id number] IMPLANTS SCREW 3.5X20MM NLCK FT VARIAX ([id number]) (AutoReq) [employer] [facility] [place] Right 2 Implanted SCREW 3.5X28MM NLCK FT VARIAX ([id number]) (AutoReq) - [id number] IMPLANTS SCREW 3.5X28MM NLCK FT VARIAX ([id number]) (AutoReq) [employer] [facility] [place] Right 1 Implanted SCREW 3.5X30MM NLCK FT VARIAX ([id number]) (AutoReq) - [id number] IMPLANTS SCREW 3.5X30MM NLCK FT VARIAX ([id number]) (AutoReq) [place] [employer] [place] Right 1 Implanted SCREW 3.5X20MM LCK FT TI VARIAX ([id number]) (AutoReq) - [id number] IMPLANTS SCREW 3.5X20MM LCK FT TI VARIAX ([id number]) (AutoReq) [place] [employer] [place] Right 1 Implanted SCREW 3.5X26MM LCK FT TI VARIAX ([id number]) (AutoReq) - [id number] IMPLANTS SCREW 3.5X26MM LCK FT TI VARIAX ([id number]) (AutoReq) [place] [employer] [place] Right 1 Implanted SCREW 3.5X28MM LCK FT TI VARIAX ([id number]) (AutoReq) - [id number] IMPLANTS SCREW 3.5X28MM LCK FT TI VARIAX ([id number]) (AutoReq) [place] [employer] [place] Right 1 Implanted Surgical Infection [...] 2:55 PM EST Fusion Foot Bones, Triple ([id number]) 06/27/2023 11:33 AM EST Posterior tibial tendon [...] (Due) documented in this encounter Care Teams Gore Maker Relationship Specialty Start Date End Date Angie Alonzo MD [address] [facility] 1 [place] [address] PCP - General Family Medicine 06/25/17 documented as of this encounter
--- OUTSIDE RECORDS SUMMARY | 2024-08-12 10:27 | XMS_ITS | Encounter Summary ---
Author Organization [facility] Address [facility] [place] [address] Care Team Providers Care Developer Evangelist Name Role Phone Angie Alonzo MD Primary Care Provider [phone] Reason for Visit * Reason Comments Follow Up Surgery NXR DOS: 06/27/23 RIGHT ANKLE FUSION- FARO - WOUND CHECK Encounter Details Date Type Department Care Team (Late st Contact Info) Description 07/26/2023 3:00 PM EST Office [place] [phone] Rene Tubbs, [facility] [place] [address] Delayed wound healing [T14.8XXD] Social History Tobacco [...] NAME: Abimbola Dumas AGE: 77 y.o. MR#: [id number] DATE OF VISIT: 07/26/2023 STAFF: Rene Tubbs [...] Tube Placement Left 04/10/2019 Adis Oliveira MD [facility] INTERVENTIONL RAD JOINT REPLACEMENT hip right ORTHOPEDIC SURGERY R hip OVARY REMOVAL PRO ADJACENT TISSUE TRANSFER/REARRANGE TRUNK 10.1-30.0CM Left 07/04/2017 ADJ.TISSUE TRANSFER, REARRANGEMENT, TRUNK,10.1 TO 30 SQ CM (WRVU 8.78) performed by Ashley Farooq MD at [facility] MAIN OR PRO BX/REMV, LYMPH NODE, DEEP AXILL Left 07/04/2017 BIOPSY OR EXCISION OF LYMPH NODE(S), OPEN, DEEP AXILLARY NODE(S) (WRVU 6.43) performed by Ashley Farooq MD at [facility] MAIN OR PRO CABG, ARTERIAL, SINGLE N/A 03/05/2019 @CABG, USING ARTERIAL GRAFT;SINGLE ARTERIAL GRAFT (WRVU 33.75) performed by Ryan Lynch MD at [facility] MAIN OR [facility] CABG, ARTERY-VEIN, THREE N/A 03/05/2019 @CABG; 3 VENOUS GRAFTS & ARTERIAL GRAFT (WRVU 10.49) performed by Ryan Lynch MD at [facility] MAIN OR PRO ENDOSCOPY W/VIDEO-ASST VEIN HARVEST, CABG N/A 03/05/2019 ENDOSCOPIC HARVEST VEIN(S) FOR CABG (WRVU 0.31) performed by Ryan Lynch MD at [facility] MAIN OR PRO FUSION FOOT BONES, TRIPLE Right 06/27/2023 ARTHRODESIS, TRIPLE (WRVU 13.42) performed by Crystal Hess MD at [facility] OSC PRO INTRAOP SENTINEL LYMPH ID W/DYE INJECTION Left 07/04/2017 INTRAOPERATIVE ID (MAPPING) SENTINEL LYMPH NODE,INCLUDES INJECTION (WRVU 2.5) performed by Ashley Farooq MD at [facility] MAIN OR PRO MASTECTOMY PARTIAL Left 07/04/2017 MASTECTOMY PARTIAL (WRVU 10.13) performed by Ashley Farooq MD at [facility] MAIN OR FAMILY HX: Family History [...] concerns. The above documentation was completed using Ultriva voice recognition software. Rene Tubbs PA-C, [facility] Department of Orthopaedics [facility] Pager [phone] documented in this encounter Plan of Treatment Not on file documented as of this encounter Visit Diagnoses Diagnosis Delayed wound healing [T14.8XXD] Open wound(s) (multiple) of unspecified site(s), complicated documented in this encounter Care Teams Developer Evangelist Relationship Specialty Start Date End Date Angie Alonzo MD [facility] [address] [place] [address] PCP - General Family Medicine 06/25/17 documented as of this encounter
--- OUTSIDE RECORDS SUMMARY | 2024-08-12 10:27 | XMS_ITS | Encounter Summary ---
Author Organization [facility] Address [facility] [place] [address] Care Team Providers Care Research Programmer Name Role Phone Angie Alonzo MD Primary Care Provider [phone] Reason for Visit * Reason Onset Date Comments Questions 07/15/2023 Encounter Details Date Type Department Care Team (Late st Contact Info) Description 07/15/2023 [place] [phone] Crystal Hess MD [facility] [place] [address] Questions Social History Tobacco Use Types Packs/Day Years Used Date Smoking Tobacco: Never Smokeless Tobacco: Never Alcohol Use Standard Drinks/Week Comments Never 0 (1 standard drink = 0.6 oz pur e alcohol) very occasional [facility] Inpatient Questions Answer Date Recorded Does Anyone [...] the new injury occur?: Best contact number:[phone] What is the question: Patient's daughter called [...] on filedocumented in this encounter Care Teams Research Programmer Relationship Specialty Start Date End Date Angie Alonzo MD [address] [place] [address] PCP - General Family Medicine 06/25/17 documented as of this encounter
--- OUTSIDE RECORDS SUMMARY | 2024-08-12 10:27 | XMS_ITS | Encounter Summary ---
Author Organization [facility] Address [facility] [place] [address] Care Team Providers Care Director Of Marketing And Promotions Name Role Phone Angie Alonzo MD Primary Care Provider [phone] Encounter Details Date Type Department Care Team (Latest Contact Info) Description 08/09/2023 9:32 AM EST - 08/09/2023 11:59 PM [facility] Hospital Encounter XRay at [address] [address] Posterior tibial tendon dysfunction s/p [...] Route) route. MULTIVITAMIN ORAL 1 tablet. 09/01/2012 [place]-3 Fatty Acids 100 mg Tablet, Chewable daily. 03/28/2022 b complex vitamins Tablet 1 tablet. 03/28/2022 azelastine (ASTELIN) 137 mcg (0.1 %) Aerosol, [place] SPRAY 1 SPRAY INTO BOTH NOSTRILS ONCE [...] who have questions please contact the health childcare aide that requested your imaging first. ? Electronically signed by: Marissa Arroyo MD, [facility] ([phone]), at 08/09/2023 8:09 PM Narrative 08/09/2023 8:09 [...] patients who have questions please contactthe health childcare aide that requested your imaging first. Electronically signed by: Marissa Arroyo MD, [facility]([phone]), at 08/09/2023 8:09 PM Crystal Hess MD IMG DX ORDERABLES documented in this encounter Visit Diagnoses Diagnosis Posterior tibial tendon dysfunction s/p R triple arthrodeiss 06/27/23 (Deshawn) Other disorders of synovium, tendon, and bursa Right foot pain Pain in limb documented in this encounter Care Teams Director Of Marketing And Promotions Relationship Specialty Start Date End Date Angie Alonzo MD [address] [place] [address] PCP - General Family Medicine 06/25/17 documented as of this encounter
--- OUTSIDE RECORDS SUMMARY | 2024-08-12 10:27 | XMS_ITS | Encounter Summary ---
Author Organization [facility] Address [facility] [place] [address] Care Team Providers Care Bond Broker Name Role Phone Angie Alonzo MD Primary Care Provider [phone] Encounter Details Date Type Department Care Team (Late st Contact Info) Description 07/02/2023 Telephone Anesthesiology [facility] [place] [phone] Ryan Short MD Social History Tobacco Use Types Packs/Day Years [...] encounter Miscellaneous Notes * Telephone Encounter - Rahda Stoner MD - 07/02/2023 12:29 PM EST [...] on filedocumented in this encounter Care Teams Bond Broker Relationship Specialty Start Date End Date Angie Alonzo MD [address] [facility] 1 [place] [address] PCP - General Family Medicine 06/25/17 documented as of this encounter
--- OUTSIDE RECORDS SUMMARY | 2024-08-12 10:27 | XMS_ITS | Encounter Summary ---
Author Organization [facility] Address [facility] [place] [address] Care Team Providers Care Button Buttonhole Marker Name Role Phone Angie Alonzo MD Primary Care Provider [phone] Encounter Details Date Type Department Care Team (Late st Contact Info) Description 07/02/2023 Telephone [place] [phone] Bunny Melendez MD [facility] [address] [place] [address] Social History Tobacco Use Types Packs/Day Years Used Date Smoking Tobacco: Never Smokeless Tobacco: Never Alcohol Use Standard Drinks/Week Comments Never 0 (1 standard drink = 0.6 oz pur e alcohol) very occasional [facility] Inpatient Questions Answer Date Recorded Does Anyone [...] on filedocumented in this encounter Care Teams Button Buttonhole Marker Relationship Specialty Start Date End Date Angie Alonzo MD [address] [place] [address] PCP - General Family Medicine 06/25/17 documented as of this encounter
--- OUTSIDE RECORDS SUMMARY | 2024-08-12 10:27 | XMS_ITS | Encounter Summary ---
Author Organization [facility] Address [facility] [place] [address] Care Team Providers Care Produce Associate Name Role Phone Angie Alonzo MD Primary Care Provider [phone] Encounter Details Date Type Department Care Team (Late st Contact Info) Description 07/05/2023 Orders [place] [address] Rene Tubbs, PA [facility] DR ORTHOPAEDIC SURGERY [place] [id number] Posterior tibial tendon dysfunction (PTTD) of right lower extremity; Right foot pain; Posterior tibial tendon dysfunction s/p R triple arthrodeiss 06/27/23 (Faro) Social History Tobacco Use Types Packs/Day Years Used Date Smoking Tobacco: Never Smokeless Tobacco: Never Alcohol Use Standard Drinks/Week Comments Never 0 (1 standard drink = 0.6 oz pur e alcohol) very occasional [facility] Inpatient Questions Answer Date Recorded Does Anyone [...] who have questions please contact the health field care advocate that requested your imaging first. ? Electronically signed by: Marissa Arroyo MD, [facility] ([phone]), at 07/09/2023 4:17 PM Narrative 07/09/2023 4:17 [...] COMPARISON: Right foot radiographs 03/27/2023. Intraoperative fluoroscopic [id number]/26/2023. FINDINGS: There is soft tissue swelling around [...] patients who have questions please contactthe health field care advocate that requested your imaging first. Electronically signed by: Marissa Arroyo MD, [facility]([phone]), at 07/09/2023 4:17 PM Crystal Hess MD [...] bursa documented in this encounter Care Teams Produce Associate Relationship Specialty Start Date End Date Angie Alonzo MD [address] [place] [address] PCP - General Family Medicine 06/25/17 documented as of this encounter
--- OUTSIDE RECORDS SUMMARY | 2024-08-12 10:27 | XMS_ITS | Encounter Summary ---
Author Organization [facility] Address [facility] [place] [address] Care Team Providers Care Pot Puller Name Role Phone Angie Alonzo MD Primary Care Provider [phone] Encounter Details Date Type Department Care Team (Late st Contact Info) Description 06/27/2023 11:30 AM EST Anesthesia Event Outpatient Surgery Center [facility] [place] [address] Keysha Aldana MD [facility] DR [place] [address] Elif Rg MD [facility] DR [place] [address] Anesthesia Record Procedure Summary Procedure Name Responsible [...] by Heidi Tiwari RN PIV 06/27/23; 1044; jkxo-npj-ukimfr catheter system; 22 gauge; Anatomical Landmarks; Anesthesia; [...] Procedure Summary Date: 06/27/23 Room / Location: [facility] [place] [address] [place] [address] OSC Anesthesia Start: 1130 Anesthesia Stop: 1506 Procedure: ARTHRODESIS, TRIPLE (WRVU 13.42) (Right: Ankle) Diagnosis: Posterior tibial tendon dysfunction (PTTD) of right lower extremity (Right triple arthrodesis) Surgeons: Crystal Hess MD Responsible Provider: Keysha Aldana MD Anesthesia Type: general ASA Status: 3 All Anesthesia Providers: Anesthesiologist: Keysha Aldana MD DIESEL MAINTENANCE ELECTRICIAN: Renato Ron CRNA Vitals Value Taken Time BP 144/60 06/27/23 1503 Temp 36.4 ??C (97.5 ??F) 06/27/23 1502 Pulse 67 06/27/23 1508 Resp 16 06/27/23 1502 SpO2 93 % 06/27/23 1508 Pain Level 0 06/27/23 1502 Vitals shown include unfiled device data. Patient Location: PACU/[facility] Level of Consciousness: Awake and Alert Pain [...] 22cc sciatic 8cc adductor canal Performed by: Resident/DIESEL MAINTENANCE ELECTRICIAN: Yumiko Pereira MD Attending Physician: Keysha Aldana [...] IR Chest Tube Placement Left 04/10/2019 Adis Oliviera MD [facility] INTERVENTIONL RAD JOINT REPLACEMENT hip right ORTHOPEDIC SURGERY R hip OVARY REMOVAL PRO ADJACENT TISSUE TRANSFER/REARRANGE TRUNK 10.1-30.0CM Left 07/04/2017 ADJ.TISSUE TRANSFER, REARRANGEMENT, TRUNK,10.1 TO 30 SQ CM (WRVU 8.78) performed by Ashley Farooq MD at [facility] MAIN OR PRO BX/REMV, LYMPH NODE, DEEP AXILL Left 07/04/2017 BIOPSY OR EXCISION OF LYMPH NODE(S), OPEN, DEEP AXILLARY NODE(S) (WRVU 6.43) performed by Ashley Farooq MD at [facility] MAIN OR PRO CABG, ARTERIAL, SINGLE N/A 03/05/2019 @CABG, USING ARTERIAL GRAFT;SINGLE ARTERIAL GRAFT (WRVU 33.75) performed by Ryan Lynch MD at [facility] MAIN OR PRO CABG, ARTERY-VEIN, THREE N/A 03/05/2019 @CABG; 3 VENOUS GRAFTS & ARTERIAL GRAFT (WRVU 10.49) performed by Ryan Lynch MD at [facility] MAIN OR PRO ENDOSCOPY W/VIDEO-ASST VEIN HARVEST, CABG N/A 03/05/2019 ENDOSCOPIC HARVEST VEIN(S) FOR CABG (WRVU 0.31) performed by Ryan Lynch MD at [facility] MAIN OR PRO INTRAOP SENTINEL LYMPH ID W/DYE INJECTION Left 07/04/2017 INTRAOPERATIVE ID (MAPPING) SENTINEL LYMPH NODE,INCLUDES INJECTION (WRVU 2.5) performed by Ashley Farooq MD at [facility] MAIN OR PRO MASTECTOMY PARTIAL Left 07/04/2017 MASTECTOMY PARTIAL (WRVU 10.13) performed by Ashley Farooq MD at [facility] MAIN OR Social History Tobacco Use [...] risks discussed with patient. Plan discussed with DIESEL MAINTENANCE ELECTRICIAN. Anesthesia Screening documented in this encounter Plan [...] sciatic 8cc adductor canal Performed by: ?? Resident/DIESEL MAINTENANCE ELECTRICIAN: ? Yumiko Pereira MD ?? Attending Physician: ? Keysha Aldana MD Authorized by: Keysha Aldana MD ?? Keysha Aldana MD PACK TRAIN DRIVER [facility] documented in this encounter Visit Diagnoses [...] mg documented in this encounter Care Teams Pot Puller Relationship Specialty Start Date End Date Angie Alonzo MD [facility] [address] [facility] [address] [place] [address] PCP - General Family Medicine 06/25/17 documented as of this encounter
--- OUTSIDE RECORDS SUMMARY | 2024-08-12 10:27 | XMS_ITS | Encounter Summary ---
Author Organization [facility] Address [facility] [place] [address] Care Team Providers Care Flume Worker Name Role Phone Angie Alonzo MD Primary Care Provider [phone] Encounter Details Date Type Department Care Team (Late st Contact Info) Description 09/02/2023 Orders Only Orthopaedics at [address] [address] Rene Tubbs, PA [facility] [place] [address] Posterior tibial tendon dysfunction s/p R triple [...] questions please contact the health health care coach that requested your imaging first. ? Narrative [...] have questions please contactthe health health care coach that requested your imaging first. Crystal Hess MD IMG DX ORDERABLES documented in this encounter Visit Diagnoses Diagnosis Posterior tibial tendon dysfunction s/p R triple arthrodeiss 06/27/23 (Deshawn) Other disorders of synovium, tendon, and bursa Posterior tibial tendon dysfunction s/p R triple arthrodeiss 06/27/23 (Deshawn) Other disorders of synovium, tendon, and bursa documented in this encounter Care Teams Flume Worker Relationship Specialty Start Date End Date Angie Alonzo MD [facility] [address] [place] [address] PCP - General Family Medicine 06/25/17 documented as of this encounter
--- OUTSIDE RECORDS SUMMARY | 2024-08-12 10:27 | XMS_ITS | Encounter Summary ---
Author Organization [facility] Address [facility] [place] [address] Care Team Providers Care Applied Behavior Science Specialist Name Role Phone Angie Alonzo [...] on filedocumented in this encounter Care Teams Applied Behavior Science Specialist Relationship Specialty Start Date End Date Angie Alonzo MD [address] [place] [address] PCP - General Family Medicine 06/25/17 documented as of this encounter
--- OUTSIDE RECORDS SUMMARY | 2024-08-12 10:27 | XMS_ITS | Encounter Summary ---
Author Organization [facility] Address [facility] [place] [address] Care Team Providers Care Inset Cutter Name Role Phone Angie Alonzo MD Primary Care Provider [phone] Reason for Referral * Physical Therapy (Routine) - Closed Specialty Diagnoses / Procedures Referred By Mima rivera Referred To Contact Physical Therapy Diagnoses Posterior tibial tendon dysfunction (PTTD) of right lower extremity Rene Tubbs PA [facility] [place] [address] Physical Therapy, [address] [address] Referral ID Status Reason Start Date Expiration Date V isits Requested Visits Authorized [id number] Closed Evaluate and Treat 07/09/2023 01/05/2024 20 20 Reason for Visit * Reason Comments Post-op Problem DOS: 06/27/23 RIGHT ANKLE FUSION- SONAL Encounter Details Date Type Department Care Team (Late st Contact Info) Description 07/09/2023 1:30 PM EST Office [place] [address] Rene Tubbs PA [facility] [place] [address] Posterior tibial tendon dysfunction (PTTD) of right [...] NAME: Abimbola Dumas AGE: 77 y.o. MR#: [id number] DATE OF VISIT: 07/09/2023 STAFF: Rene Tubbs [...] Tube Placement Left 04/10/2019 Adis Oliveira MD [facility] INTERVENTIONL RAD JOINT REPLACEMENT hip right ORTHOPEDIC SURGERY R hip OVARY REMOVAL PRO ADJACENT TISSUE TRANSFER/REARRANGE TRUNK 10.1-30.0CM Left 07/04/2017 ADJ.TISSUE TRANSFER, REARRANGEMENT, TRUNK,10.1 TO 30 SQ CM (WRVU 8.78) performed by Ashley Farooq MD at [facility] MAIN OR PRO BX/REMV, LYMPH NODE, DEEP AXILL Left 07/04/2017 BIOPSY OR EXCISION OF LYMPH NODE(S), OPEN, DEEP AXILLARY NODE(S) (WRVU 6.43) performed by Ashley Farooq MD at [facility] MAIN OR PRO CABG, ARTERIAL, SINGLE N/A 03/05/2019 @CABG, USING ARTERIAL GRAFT;SINGLE ARTERIAL GRAFT (WRVU 33.75) performed by Ryan Lynch MD at [facility] MAIN OR PRO CABG, ARTERY-VEIN, THREE N/A 03/05/2019 @CABG; 3 VENOUS GRAFTS & ARTERIAL GRAFT (WRVU 10.49) performed by Ryan Lynch MD at [facility] MAIN OR PRO ENDOSCOPY W/VIDEO-ASST VEIN HARVEST, CABG N/A 03/05/2019 ENDOSCOPIC HARVEST VEIN(S) FOR CABG (WRVU 0.31) performed by Ryan Lynch MD at [facility] MAIN OR PRO FUSION FOOT BONES, TRIPLE Right 06/27/2023 ARTHRODESIS, TRIPLE (WRVU 13.42) performed by Crystal Hess MD at [facility] OSC PRO INTRAOP SENTINEL LYMPH ID W/DYE INJECTION Left 07/04/2017 INTRAOPERATIVE ID (MAPPING) SENTINEL LYMPH NODE,INCLUDES INJECTION (WRVU 2.5) performed by Ashley Farooq MD at [facility] MAIN OR PRO MASTECTOMY PARTIAL Left 07/04/2017 MASTECTOMY PARTIAL (WRVU 10.13) performed by Ashley Farooq MD at [facility] MAIN OR FAMILY HX: Family History [...] concerns. The above documentation was completed using PENRITH voice recognition software. Rene Tubbs PA-C, MPAS Department of Orthopaedics [facility] Pager [phone] documented in this encounter Plan of Treatment Scheduled Referrals Name Type Priority Associated Diagnoses Orde r Schedule Referral to Physical Therapy Outpatient Referral Routine Posterior tibial tendon dysfunction (PTTD) of right lower extremity Ordered: 07/09/2023 documented as of this encounter Visit Diagnoses Diagnosis Posterior tibial tendon dysfunction (PTTD) of right lower extremity documented in this encounter Care Teams Inset Cutter Relationship Specialty Start Date End Date Angie Alonzo MD [address] [place] [address] PCP - General Family Medicine 06/25/17 documented as of this encounter
--- OUTSIDE RECORDS SUMMARY | 2024-08-12 10:27 | XMS_ITS | Encounter Summary ---
Author Organization [facility] Address [facility] [place] [address] Care Team Providers Care Sister Superior Name Role Phone Angie Alonzo MD Primary Care Provider [phone] Encounter Details Date Type Department Care Team [...] on filedocumented in this encounter Care Teams Sister Superior Relationship Specialty Start Date End Date Angie Alonzo MD [facility] [address] [place] [address] PCP - General Family Medicine 06/25/17 documented as of this encounter
--- OUTSIDE RECORDS SUMMARY | 2024-08-12 10:27 | XMS_ITS | Encounter Summary ---
Author Organization [facility] Address [facility] [place] [address] Care Team Providers Care Scraper Operator Name Role Phone Angie Alonzo MD Primary Care Provider [phone] Encounter Details Date Type Department Care Team (Late st Contact Info) Description 06/27/2023 11:20 AM EST - 06/27/2023 2:57 PM EST Surgery Outpatient [place] [phone] Crystal Hess MD [facility] DR [place] [address] ARTHRODESIS, TRIPLE (WRVU 13.42) Social History Tobacco [...] closest emergency room or call the hospital crane operator at [phone] and ask for physician acura sales consultant covering for your physician. Questions or problems after 5pm or on a weekend: Call the [facility] crane operator at and ask for the physician acura sales consultant covering for your doctor. At [...] after hours and ask for the anesthesiologist acura sales consultant. * Patient Instructions* Dewayne Cerna [...] is a short acting narcotic pain medication. Ienz-cxh-indcgsc Tylenol (acetaminophen) should be taken in addition [...] important in helping to prevent this. An xjlo-lgj-epcztuo stool softener can also help prevent or [...] Time Provider Department Center 07/09/2023 12:30 PM [facility] DX ROOM 1 Xray [facility] Rad 07/09/2023 1:30 PM Rene Tubbs PA [facility] ORTH 3C [facility] If you have questions or concerns please contact our [facility] office Saturday through Saturday, 8 AM - [...] DAY 04/24/2023 MULTIVITAMIN ORAL 1 tablet. 09/01/2012 Tunas-3 Fatty Acids 100 mg Tablet, Chewable daily. 03/28/2022 b complex vitamins Tablet 1 tablet. 03/28/2022 azelastine (ASTELIN) 137 mcg (0.1 %) Aerosol, Olive SPRAY 1 SPRAY INTO BOTH NOSTRILS ONCE [...] Tube Placement Left 04/10/2019 Adis Oliveira MD [facility] INTERVENTIONL RAD JOINT REPLACEMENT hip right ORTHOPEDIC SURGERY R hip OVARY REMOVAL PRO ADJACENT TISSUE TRANSFER/REARRANGE TRUNK 10.1-30.0CM Left 07/04/2017 ADJ.TISSUE TRANSFER, REARRANGEMENT, TRUNK,10.1 TO 30 SQ CM (WRVU 8.78) performed by Ashley Farooq MD at [facility] OR [facility] BX/REMV, LYMPH NODE, DEEP AXILL Left 07/04/2017 BIOPSY OR EXCISION OF LYMPH NODE(S), OPEN, DEEP AXILLARY NODE(S) (WRVU 6.43) performed by Ashley Farooq MD at [facility] OR [facility] CABG, ARTERIAL, SINGLE N/A 03/05/2019 @CABG, USING ARTERIAL GRAFT;SINGLE ARTERIAL GRAFT (WRVU 33.75) performed by Ryan Lynch MD at [facility] OR [facility] CABG, ARTERY-VEIN, THREE N/A 03/05/2019 @CABG; 3 VENOUS GRAFTS & ARTERIAL GRAFT (WRVU 10.49) performed by Ryan Lynch MD at [facility] OR [facility] ENDOSCOPY W/VIDEO-ASST VEIN HARVEST, CABG N/A 03/05/2019 ENDOSCOPIC HARVEST VEIN(S) FOR CABG (WRVU 0.31) performed by Ryan Lynch MD at [facility] OR PRO INTRAOP SENTINEL LYMPH ID W/DYE INJECTION Left 07/04/2017 INTRAOPERATIVE ID (MAPPING) SENTINEL LYMPH NODE,INCLUDES INJECTION (WRVU 2.5) performed by Ashley Farooq MD at [facility] MAIN OR PRO MASTECTOMY PARTIAL Left 07/04/2017 MASTECTOMY PARTIAL (WRVU 10.13) performed by Ashley Farooq MD at [facility] MAIN OR Home Medications: Medications Prior to Admission Medication Sig Dispense Refill Last Dose MULTIVITAMIN ORAL 1 tablet. Tunas-3 Fatty Acids 100 mg Tablet, Chewable daily. b complex vitamins Tablet 1 tablet. empagliflozin (Jardiance) 10 mg tablet daily. 06/22/2023 pantoprazole (PROTONIX) 20 mg Tablet, Delayed Release (E.C.) Take 20 mg by mouth daily. 06/27/2023 aspirin 81 mg Tablet, Chewable Take 81 mg by mouth daily. 06/26/2023 azelastine (ASTELIN) 137 mcg (0.1 %) Aerosol, Olive SPRAY 1 SPRAY INTO BOTH NOSTRILS ONCE [...] Delphine procedure. Patient Pharmacy for outpatient medications: [facility] Pain medications to prescribe:Tramadol, ibuprofen and tylenol alternating WB status: NWB x 6 weeks Postop Dressing: Splint - leave in place until clinic follow up DVT prophylaxis: ASA 81 mg BID x 6 weeks Follow up: 2 week(s) documented in this encounter Miscellaneous Notes * Op Note - Crystal Hess MD - 06/27/2023 12:23 PM EST [facility] Operative Note Patient Name: Abimbola Dumas : [id number] MR#: [id number] Case Date: 06/27/2023 Surgeon: Surgeon(s) and Role: [...] Implant Name Type Inv. Item Serial No. Warehouse Freight Handler Lot No. LRB No. Used Action GRAFT BONE FILLER INJECTABLE 5CC DBM PUTTY ALLOMATRIX ([id number]) (AutoReq) - [id number] IMPLANTS GRAFT BONE FILLER INJECTABLE 5CC DBM PUTTY ALLOMATRIX ([id number]) (AutoReq) [id number] UNKNOWN - UNKNOWN Right 1 Implanted GRAFT BONE FILLER 3CC DBM INJECTABLE AUGMENT ([id number]) (AutoReq) - [id number] IMPLANTS GRAFT BONE FILLER 3CC DBM INJECTABLE AUGMENT ([id number]) (AutoReq) [facility] [id number] Right 1 Implanted SCREW 6.5X80MM ALAN PT TI ASNIS III ([id number]) (AutoReq) - [id number] IMPLANTS SCREW 6.5X80MM ALAN PT TI ASNIS III ([id number]) (AutoReq) [employer]IL[employer]ER[employer] - IWLFREDO Right 2 Implanted SCREW 4.0X50MM ALAN PT TI ASNIS III ([id number]) (AutoReq) - [id number] IMPLANTS SCREW 4.0X50MM ALAN PT TI ASNIS III ([id number]) (AutoReq) [employer] - [place]IL[employer] Right 1 Implanted SCREW 4.0X40MM ALAN PT TI ASNIS III ([id number]) (AutoReq) - [id number] IMPLANTS SCREW 4.0X40MM ALAN PT TI ASNIS III ([id number]) (AutoReq) [employer] - [employer]IL[employer] Right 1 Implanted PLATE Y SHAPE 3 HOLE COMP LCK VARIAX (4455745) (AutoReq) - [id number] IMPLANTS PLATE Y SHAPE 3 HOLECOMP LCK VARIAX (9043088) (AutoReq) [employer] - [employer] Right 1 Implanted PLATE Y SHAPE 4 HOLE COMP LCK VARIAX ([id number]) (AutoReq) - [id number] IMPLANTS PLATE Y SHAPE 4 HOLECOMP LCK VARIAX (5502724) (AutoReq) [employer] - [employer] Right 1 Implanted SCREW 3.5X26MM NLCK FT VARIAX ([id number]) (AutoReq) - [id number] IMPLANTS SCREW 3.5X26MM NLCK FT VARIAX ([id number]) (AutoReq) [place] [facility] - WILFREDO Right 1 Implanted SCREW 3.5X20MM NLCK FT VARIAX ([id number]) (AutoReq) - [id number] IMPLANTS SCREW 3.5X20MM NLCK FT VARIAX ([id number]) (AutoReq) [employer] [facility] - [place] Right 2 Implanted SCREW 3.5X28MM NLCK FT VARIAX ([id number]) (AutoReq) - [id number] IMPLANTS SCREW 3.5X28MM NLCK FT VARIAX ([id number]) (AutoReq) [place] [facility] - [place] Right 1 Implanted SCREW 3.5X30MM NLCK FT VARIAX ([id number]) (AutoReq) - [id number] IMPLANTS SCREW 3.5X30MM NLCK FT VARIAX ([id number]) (AutoReq) [place] [facility] - [place] Right 1 Implanted SCREW 3.5X20MM LCK FT TI VARIAX ([id number]) (AutoReq) - [id number] IMPLANTS SCREW 3.5X20MM LCK FT TI VARIAX ([id number]) (AutoReq) [place] [facility] - [place] Right 1 Implanted SCREW 3.5X26MM LCK FT TI VARIAX ([id number]) (AutoReq) - [id number] IMPLANTS SCREW 3.5X26MM LCK FT TI VARIAX ([id number]) (AutoReq) [employer] - [employer] Right 1 Implanted SCREW 3.5X28MM LCK FT TI VARIAX ([id number]) (AutoReq) - [id number] IMPLANTS SCREW 3.5X28MM LCK FT TI VARIAX ([id number]) (AutoReq) [place] [facility] - WIL[place]O Right 1 Implanted Surgical Infection [...] 2:55 PM EST Fusion Foot Bones, Triple ([id number]) 06/27/2023 11:33 AM EST Posterior tibial tendon [...] (Due) documented in this encounter Care Teams Scraper Operator Relationship Specialty Start Date End Date Angie Alonzo MD [facility] [address] [place] [address] PCP - General Family Medicine 06/25/17 documented as of this encounter
--- OUTSIDE RECORDS SUMMARY | 2024-08-12 10:27 | XMS_ITS | Clinical Summary ---
Author Organization [facility] Address [facility] [place] [address] Care Team Providers Care Senior Mainframe Developer Name Role Phone Angie Alonzo MD Primary Care Provider [phone] Allergies Active Allergy Reactions Criticality Noted Date [...] meter (FREESTYLE) Kit 1 each by [facility].(Non-Drug; Combo Route) route [...] azelastine (ASTELIN) 137 mcg (0.1 %) Aerosol, [place] SPRAY 1 SPRAY INTO BOTH NOSTRILS ONCE A DAY 12/11/2022 Active cetirizine (ZyrTEC) 10 mg tablet daily. 12/12/2022 Active calcium-vitamin D3 600 mg-5 mcg (200 unit) Tablet 1 tablet. 09/01/2012 Active MULTIVITAMIN ORAL 1 tablet. 09/01/2012 Active [place]-3 Fatty Acids 100 mg Tablet, Chewable daily. 03/28/2022 Active b complex vitamins Tablet 1 tablet. 03/28/2022 Active OneTouch Ultra Test Strip USE TO TEST ONCE A DAY 04/24/2023 Active lancets Misc by [facility].(Non-Drug; Combo Route) route. Active [...] Last Done Comments Hepatitis C Screening 11/18/1961 Pneumoccocal Vaccine: 50+ (1 of 2 - PCV) 11/18/1962 Tetanus/Diphtheria/Pertussis Vaccines (1 - Tdap) 11/18/1962 Zoster vaccine (1 of 2) 11/18/1993 Bone Density Scan 11/18/2008 RSV Vaccine (1 - 1-dose 75+ series) 11/18/2018 Covid-19 Vaccine (2023-2 5 season) 2024 Influenza (Flu) vaccine (1 o f 1 - Influenza standard series) 03/01/2024 Breast Cancer screening Discontinued 03/05/20, 02/20/2022, 01/24/2021, Additional history exists Medical Devices Implanted Type Area Railroad Operating Engineer Device Identifier Shelf Expiration Date Model / Serial / Lot Breast Clip- 7 Implanted:Qty: 1 on 05/28/2017 by Alona Nielsen MD Breast Clip Left: Breast [id number] / / [id number] Description:farhan Cable,Cut,Edg, Blnt,Ss,3tpr ([id number]) - [id number] Implanted:Qty: 4 on 03/05/2019 by Ryan Lynch MD at [facility] IMPLANTS N/A: Sternum [employer] - RTI SURGIC 08/07/2023 [id number] / / [id number] Screw 3.5x26mm Nlck Ft Variax ([id number]) (Autoreq) - [id number] Implanted:Qty: 1 on 06/27/2023 by Crystal Hess MD at [facility] IMPLANTS Right: Ankle [employer] W[employer]O [id number] / / Screw 3.5x20mm Nlck Ft Variax ([id number]) (Autoreq) - [id number] Implanted:Qty: 2 on 06/27/2023 by Crystal Hess MD at [facility] IMPLANTS Right: Ankle [employer] [id number] / / Screw 3.5x28mm Nlck Ft Variax ([id number]) (Autoreq) - [id number] Implanted:Qty: 1 on 06/27/2023 by Crystal Hess MD at [facility] IMPLANTS Right: Ankle [employer] [id number] / / Screw 3.5x30mm Nlck Ft Variax ([id number]) (Autoreq) - [id number] Implanted:Qty: 1 on 06/27/2023 by Crystal Hess MD at [facility] IMPLANTS Right: Ankle [employer] [id number] / / Screw 3.5x20mm Lck Ft Ti Variax ([id number]) (Autoreq) - [id number] Implanted:Qty: 1 on 06/27/2023 by Crystal Hess MD at [facility] IMPLANTS Right: Ankle [employer] [id number] / / Screw 3.5x26mm Lck Ft Ti Variax ([id number]) (Autoreq) - [id number] Implanted:Qty: 1 on 06/27/2023 by Crystal Hess MD at [facility] IMPLANTS Right: Ankle [employer] [id number] / / Screw 3.5x28mm Lck Ft Ti Variax ([id number]) (Autoreq) - [id number] Implanted:Qty: 1 on 06/27/2023 by Crystal Hess MD at [facility] IMPLANTS Right: Ankle [employer] [id number] / / Graft Bone Filler Injectable 5cc Dbm Putty Allomatrix ([id number]) (Autoreq) - [id number] Implanted:Qty: 1 on 06/27/2023 by Crystal Hess MD at [facility] IMPLANTS Right: Foot UNKNOWN - UNKNOWN 02/26/2028 [id number] / [id number] 1 / Graft Bone Filler 3cc Dbm Injectable Augment ([id number]) (Autoreq) - [id number] Implanted:Qty: 1 on 06/27/2023 by Crystal Hess MD at [facility] IMPLANTS Right: Foot [facility] 09/25/2025 [id number] / / [id number] Screw 6.5x80mm Dennis Pt Ti Asnis Iii ([id number]) (Autoreq) - [id number] Implanted:Qty: 2 on 06/27/2023 by Crystal Hess MD at [facility] IMPLANTS Right: Foot [employer] [id number] / / Screw 4.0x50mm Dennis Pt Ti Asnis Iii ([id number]) (Autoreq) - [id number] Implanted:Qty: 1 on 06/27/2023 by Crystal Hess MD at [facility] IMPLANTS Right: Foot [employer] [id number] / / Screw 4.0x40mm Dennis Pt Ti Asnis Iii ([id number]) (Autoreq) - [id number] Implanted:Qty: 1 on 06/27/2023 by Crystal Hess MD at [facility] IMPLANTS Right: Foot [employer] [id number] / / Plate Y Shape 3 Hole Comp Lck Variax ([id number]) (Autoreq) - [id number] Implanted:Qty: 1 on 06/27/2023 by Crystal Hess MD at [facility] IMPLANTS Right: Ankle [employer] [id number] / / Plate Y Shape 4 Hole Comp Lck Variax ([id number]) (Autoreq) - [id number] Implanted:Qty: 1 on 06/27/2023 by Crystal Hess MD at [facility] IMPLANTS Right: Ankle [employer] [id number] / / Procedures Procedure Name Priority Date/Time [...] who have questions please contact the health tire care manager that requested your imaging first. ? Electronically signed by: Billie Parker MD, [facility] ([phone]), at 03/05/2023 10:10 AM Narrative 03/05/2023 10:10 [...] changes in the left breast. Kasey Delgado DIRECTOR SOCIAL WELFARE IMG MAMMO ORD ERABLES from Last 3 Months or Most Recently Relevant to Health Maintenance Advance Directives Documents on File Type Date Recorded Patient Health Care Marketing Manager Expl anation Advance Directives and Livin g [...] capacity to make decision: Yes Care Teams Senior Mainframe Developer Relationship Specialty Start Date End Date Angie Alonzo MD [address] [place] [address] PCP - General Family Medicine 06/25/17
--- OUTSIDE RECORDS SUMMARY | 2024-08-12 10:27 | XMS_ITS | Encounter Summary ---
Author Organization [facility] Address [facility] [place] [address] Care Team Providers Care Nursing Informatics Clinical Analyst Name Role Phone Angie Alonzo MD Primary Care Provider [phone] Encounter Details Date Type Department Care Team (Late st Contact Info) Description 08/07/2023 Telephone [place] [phone] Rene Tubbs, PA [facility] [place] [address] Social History Tobacco Use Types Packs/Day Years [...] on filedocumented in this encounter Care Teams Nursing Informatics Clinical Analyst Relationship Specialty Start Date End Date Angie Alonzo MD [address] [place] [address] PCP - General Family Medicine 06/25/17 documented as of this encounter
--- OUTSIDE RECORDS SUMMARY | 2024-08-12 10:27 | XMS_ITS | Encounter Summary ---
Author Organization [facility] Address [facility] [place] [address] Care Team Providers Care Minister Name Role Phone Angie Alonzo MD Primary Care Provider [phone] Reason for Visit * Reason Comments Pre-op Exam Encounter Details Date Type Department Care Team (Late st Contact Info) Description 06/04/2023 2:30 PM EST Office [place] [address] Rene Tubbs PA [facility] [place] [address] Posterior tibial tendon dysfunction (PTTD) of right [...] NAME: Abimbola Dumas AGE: 77 y.o. MR#: [id number] DATE OF VISIT: 06/04/2023 STAFF: Crystal Hess [...] 8.78) performed by Ashley Farooq MD at [facility] MAIN OR PRO BX/REMV, LYMPH NODE, DEEP AXILL Left 07/04/2017 BIOPSY OR EXCISION OF LYMPH NODE(S), OPEN, DEEP AXILLARY NODE(S) (WRVU 6.43) performed by Ashley Farooq MD at [facility] MAIN OR PRO CABG, ARTERIAL, SINGLE N/A 03/05/2019 @CABG, USING ARTERIAL GRAFT;SINGLE ARTERIAL GRAFT (WRVU 33.75) performed by Ryan Lynch MD at [facility] MAIN OR PRO CABG, ARTERY-VEIN, THREE N/A 03/05/2019 @CABG; 3 VENOUS GRAFTS & ARTERIAL GRAFT (WRVU 10.49) performed by Ryan Lynch MD at [facility] MAIN OR [facility] ENDOSCOPY W/VIDEO-ASST VEIN HARVEST, CABG N/A 03/05/2019 ENDOSCOPIC HARVEST VEIN(S) FOR CABG (WRVU 0.31) performed by Ryan Lynch MD at [facility] OR [facility] INTRAOP SENTINEL LYMPH ID W/DYE INJECTION Left 07/04/2017 INTRAOPERATIVE ID (MAPPING) SENTINEL LYMPH NODE,INCLUDES INJECTION (WRVU 2.5) performed by Ashley Farooq MD at [facility] MAIN OR PRO MASTECTOMY PARTIAL Left 07/04/2017 MASTECTOMY PARTIAL (WRVU 10.13) performed by Ashley Farooq MD at [facility] MAIN OR FAMILY HX: Family [...] concerns. The above documentation was completed using Ruangguru voice recognition software. Rene Tubbs PA-C, MPAS Department of Orthopaedics [facility] Pager [phone] documented in this encounter Plan of Treatment Not on file documented as of this encounter Visit Diagnoses Diagnosis Posterior tibial tendon dysfunction (PTTD) of right lower extremity documented in this encounter Care Teams Minister Relationship Specialty Start Date End Date Angie Alonzo MD [address] [place] [address] PCP - General Family Medicine 06/25/17 documented as of this encounter
--- OUTSIDE RECORDS SUMMARY | 2024-08-12 10:28 | XMS_ITS | Encounter Summary ---
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 She was started on hormone therapy post completion of radiation therapy. Today's visit is a telephone visit due to the constraints of Covid-19 ?? HPI 71 y/o f who presented w/L breast abnlty on screening mmg. ?? 11/06/16 B screening mmg ([facility]): Questionable increased density medial subareolar L [...] core bx. ?? Path: IDC, low gr, ER+OH+, Her2 FISH neg. ?? 06/19/17 eval by [...] by Dr Farooq Axillary lymph node Management Isabella nodes alone Total Number of Nodes Removed [...] Grade low Margin negative ER-estrogen receptor positive OH--progesterone receptor positive HER-2/FISH negative Endocrine Therapy Recommended for Hormone Sensitive Invasive Tumor yes First Adjuvant Endocrine Therapy Tamoxifen Dates of radiation 08/05/17 through 09/02/2017 Radiation Mendez Romanian Protocol Radiation Boost yes Total Dosage of [...] of left breast in female, estrogen receptor uboiklnbQ70.212, Z17.0 ??? CAD (coronary artery disease) I25.10 [...] Tube Placement Left 04/10/2019 Adis Oliveira MD [facility] INTERVENTIONL RAD ??? JOINT REPLACEMENT hip right ??? ORTHOPEDIC SURGERY R hip ??? OVARY REMOVAL ??? PRO ADJ TISS XFER TRUNK 10.1-30 Left 07/04/2017 ADJ.TISSUE TRANSFER, REARRANGEMENT, TRUNK,10.1 TO 30 SQ CM (WRVU 8.78) performed by Ashley Farooq MD at [facility] MAIN OR ??? PRO BX/REMV, LYMPH NODE, DEEP AXILL Left 07/04/2017 BIOPSY OR EXCISION OF LYMPH NODE(S), OPEN, DEEP AXILLARY NODE(S) (WRVU 6.43) performed by Ashley Farooq MD at [facility] MAIN OR ??? PRO CABG, ARTERIAL, SINGLE N/A 03/05/2019 @CABG, USING ARTERIAL GRAFT;SINGLE ARTERIAL GRAFT (WRVU 33.75) performed by Ryan Lynch MD at [facility] OR ??? PRO CABG, ARTERY-VEIN, THREE N/A 03/05/2019 @CABG; 3 VENOUS GRAFTS & ARTERIAL GRAFT (WRVU 10.49) performed by Ryan Lynch MD at [facility] MAIN OR ??? PRO ENDOSCOPY W/VIDEO-ASST VEIN HARVEST, CABG N/A 03/05/2019 ENDOSCOPIC HARVEST VEIN(S) FOR CABG (WRVU 0.31) performed by Ryan Lynch MD at [facility] MAIN OR ??? PRO INTRAOP SENTINEL LYMPH ID W/DYE INJECTION Left 07/04/2017 INTRAOPERATIVE ID (MAPPING) SENTINEL LYMPH NODE,INCLUDES INJECTION (WRVU 2.5) performed by Ashley Farooq MD at [facility] MAIN OR ??? PRO MASTECTOMY PARTIAL Left 07/04/2017 MASTECTOMY PARTIAL (WRVU 10.13) performed by Ashley Farooq MD at [facility] OR Review and update of social history [...] hip replacement Hormone therapy side effects None [facility] Has emergency alert system due to fall in 2018 and fx left wrist . 01/20/2019- mammogram--no evidence of malignancy December 2019 mammogram- no evidence of malignancy Assessment and Plan: Abimbola Dumas is a 74 y.o.. female completed xrt on 09/02/17 to a dose of 52.56 Gy for L breast ca, IDC,low gr, ER+OH+, Her2 neg, s/p lumpectomy & SNB, pT1b [...] positive documented in this encounter Care Teams Labor Relations Representative Relationship Specialty Start Date End Date Angie Alonzo MD [address] [place] [address] PCP - General Family Medicine 06/25/17 documented as of this encounter
--- OUTSIDE RECORDS SUMMARY | 2024-08-12 10:28 | XMS_ITS | Encounter Summary ---
Author Organization [facility] [place] [address] Care Team Providers Care Sandwich Hand Name Role Phone Angie Alonzo MD Primary Care Provider [phone] Encounter Details Date Type Department Care Team (Late st Contact Info) Description 10/02/2019 Telephone Hematology [place] [address] Hannah Antonio, RN Social History Tobacco Use Types [...] 10:25 AM EDT Message received from clinical typing secretary: Call back [phone] Abimbola called this morning as her pharmacy cannot locate her new RX for her tamoxifen. Confirmed that [facility] in [facility] was the correct location. She called this morning and they could not fill for her. Could you please resend her tamoxifen RX? Call placed to [facility] spoke w/certified emergency vehicle technician who explains that there was an issue with the insurancehowever they have fixed it and the script is now all set for patient to product picker. Call placed to patient updated her on the above. Pt in agreement with plan and knows to call clinicwith any concerns and/or questions. documented in this encounter Plan of Treatment Not on file documented as of this encounter Visit Diagnoses Not on filedocumented in this encounter Care Teams Sandwich Hand Relationship Specialty Start Date End Date Angie Alonzo MD [facility] [address] [facility] [address] [place] [address] PCP - General Family Medicine 06/25/17 documented as of this encounter
--- OUTSIDE RECORDS SUMMARY | 2024-08-12 10:28 | XMS_ITS | Encounter Summary ---
Author Organization [facility] Address [facility] [place] [address] Care Team Providers Care Piercing Mill Operator Name Role Phone Angie Alonzo MD Primary Care Provider [phone] Encounter Details Date Type Department Care Team (Latest Contact Info) Description 01/24/2021 7:03 AM EDT - 01/24/2021 7:28 AM EDT Hospital Encounter Hematology and Oncology at [facility] [place] [place] [address] Malignant neoplasm of upper-inner quadrant of left [...] Kit 1 each by [facility].(Non-Drug; Combo Route) route as needed for Other. aspirin 81 mg Tablet, Chewable Take 81 mg by mouth daily. 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 90 tablet 3 09/09/2020 09/29/2021 Xvdtc-3-LFB-EPA-Fish Oil 1,200 (144-216) mg Capsule Take by [...] Function Panel (01/24/2021 7:25 AM EDT) Pathologist [facility] Protein, Total 6.7 6.1 - 8.0 gm/dL [facility] Albumin 4.0 3.2 - 5.2 gm/dL [facility] Aspartate Aminotransferase 20 0 - 30 unit/L [facility] Alanine Aminotransferase 19 0 - 30 unit/L [facility] Alkaline Phosphatase 53 35 - 105 unit/L [facility] Bilirubin, Total 0.4 0.2 - 1.3 mg/dL [facility] Bilirubin, Direct 0.1 0.0 - 0.3 mg/dL [facility] Blood 01/24/2021 7:25 AM EDT 01/24/2021 7:41 AM EDT Narrative Resulting Agency Comment Spec In Lab aKlyan Damico MD CHEMISTRY ORDERABLES [facility] [place] [place] [address] documented in this encounter Visit Diagnoses Diagnosis Malignant neoplasm of upper-inner quadrant of left breast in female, estrogen receptor positive documented in this encounter Care Teams Piercing Mill Operator Relationship Specialty Start Date End Date Angie Alonzo MD [address] [facility] [address] [place] [address] PCP - General Family Medicine 06/25/17 documented as of this encounter
--- OUTSIDE RECORDS SUMMARY | 2024-08-12 10:28 | XMS_ITS | Encounter Summary ---
Author Organization [facility] Address [facility] [place] [address] Care Team Providers Care Burr Sander Name Role Phone Angie Alonzo MD Primary Care Provider [phone] Reason for Visit * Reason Comments Follow-up Encounter Details Date Type Department Care Team (Late st Contact Info) Description 01/24/2021 8:30 AM EDT Office Visit [place] [address] Kalyan Damico MD Barrett-Campbell, Odeth O, MD Malignant neoplasm of upper-inner quadrant of left [...] by telehealth, and I will see her ujbo-vo-suur next in one year, in coordinationwith Kasey Gillette and with her mammograms. She knows to contact me in the interim if she has any concerns over her breast exam or over the tamoxifen. Kalyan Damico MD machine sweeper brush maker in Hematology-Oncology documented in this encounter Plan of Treatment Not on file documented as of this encounter Visit Diagnoses Diagnosis Malignant neoplasm of upper-inner quadrant of left breast in female, estrogen receptor positive documented in this encounter Care Teams Burr Sander Relationship Specialty Start Date End Date Angie Alonzo MD [address] [place] [address] PCP - General Family Medicine 06/25/17 documented as of this encounter
--- OUTSIDE RECORDS SUMMARY | 2024-08-12 10:28 | XMS_ITS | Encounter Summary ---
Author Organization [facility] Address [facility] [place] [address] Care Team Providers Care Dance Artist Name Role Phone Angie Alonzo MD Primary Care Provider [phone] Encounter Details Date Type Department Care Team [...] on filedocumented in this encounter Care Teams Dance Artist Relationship Specialty Start Date End Date Angie Alonzo MD [facility] [address] [place] [address] PCP - General Family Medicine 06/25/17 documented as of this encounter
--- OUTSIDE RECORDS SUMMARY | 2024-08-12 10:28 | XMS_ITS | Encounter Summary ---
Author Organization [facility] Address [facility] [place] [address] Care Team Providers Care Maintenance Groundman Name Role Phone Angie Alonzo MD Primary Care Provider [phone] Encounter Details Date Type Department Care Team (Latest Contact Info) Description 02/20/2022 8:18 AM EDT - 02/20/2022 8:31 AM EDT Hospital Encounter Hematology and Oncology at [facility] [place] [address] Malignant neoplasm of upper-inner quadrant of left [...] blood-glucose meter (FREESTYLE) Kit 1 each by [facility].(Non-Drug; Combo Route) route as needed for Other. aspirin 81 mg Tablet, Chewable Take 81 mg by mouth daily. Txcai-9-NLQ-EPA-Fish Oil 1,200 (144-216) mg Capsule Take by [...] Protein, Total 7.0 6.1 - 8.0 g/dL [facility] Albumin 4.3 3.2 - 5.2 g/dL [facility] Aspartate Aminotransferase 19 0 - 30 unit/L [facility] Alanine Aminotransferase 20 0 - 30 unit/L [facility] Alkaline Phosphatase 65 35 - 105 unit/L [facility] Bilirubin, Total 0.4 0.2 - 1.3 mg/dL [facility] Bilirubin, Direct 0.1 0.0 - 0.3 mg/dL [facility] Blood 02/20/2022 8:29 AM EDT 02/20/2022 8:37 AM EDT Narrative Resulting Agency Comment Spec In Lab Kalyan Damico MD CHEMISTRY ORDERABLES [facility] [place] [address] documented in this encounter Visit Diagnoses Diagnosis Malignant neoplasm of upper-inner quadrant of left breast in female, estrogen receptor positive documented in this encounter Care Teams Maintenance Groundman Relationship Specialty Start Date End Date Angie Alonzo MD [facility] [address] [place] [address] PCP - General Family Medicine 06/25/17 documented as of this encounter
--- OUTSIDE RECORDS SUMMARY | 2024-08-12 10:28 | XMS_ITS | Encounter Summary ---
Author Organization [facility] Address [facility] [place] [address] Care Team Providers Care Christian Counselor Name Role Phone Angie Alonzo MD Primary Care Provider [phone] Encounter Details Date Type Department Care Team (Late st Contact Info) Description 09/11/2019 Telephone Endocrinology at [facility] [place] [place] [address] Nimco Mohan MD [facility] [place] [address] Social History Tobacco Use Types Packs/Day Years [...] agreed with plan. Nimco Mohan MD PGY-5 [facility] Endocrinology, Diabetes, and Metabolism Fellow Pager [phone] documented in this encounter Plan of Treatment Not on file documented as of this encounter Visit Diagnoses Not on filedocumented in this encounter Care Teams Christian Counselor Relationship Specialty Start Date End Date Angie Alonzo MD [facility] [address] [place] [address] PCP - General Family Medicine 06/25/17 documented as of this encounter
--- OUTSIDE RECORDS SUMMARY | 2024-08-12 10:28 | XMS_ITS | Encounter Summary ---
Author Organization [facility] [place] [address] Care Team Providers Care Shipping Weigher Name Role Phone Angie Alonzo MD Primary Care Provider Encounter Details Date Type Department Care Team (Late st Contact Info) Description 09/29/2021 Orders Only Hematology [place] [address] Kalyan Damico MD Malignant neoplasm of upper-inner quadrant of [...] positive documented in this encounter Care Teams Shipping Weigher Relationship Specialty Start Date End Date Angie Alonzo MD [address] [place] [address] PCP - General Family Medicine 06/25/17 documented as of this encounter
--- OUTSIDE RECORDS SUMMARY | 2024-08-12 10:28 | XMS_ITS | Encounter Summary ---
Author Organization [facility] Address [facility] [place] [address] Care Team Providers Care Brand Marketing Intern Name Role Phone Angie Alonzo MD Primary Care Provider [phone] Encounter Details Date Type Department Care Team (Latest Contact Info) Description 08/24/2022 4:30 PM EST TH Visit (TeleHealth) Hematology and Oncology at [facility] [place] [address] Kalyan Damico MD Malignant neoplasm of upper-inner [...] 4:30 PM EST Heme-Onc Staff ?? Abimbola Evie Dumas??is a 76 y.o.??female??with Stage I breast cancer,??who [...] positive documented in this encounter Care Teams Brand Marketing Intern Relationship Specialty Start Date End Date Angie Alonzo MD [address] [place] [address] PCP - General Family Medicine 06/25/17 documented as of this encounter
--- OUTSIDE RECORDS SUMMARY | 2024-08-12 10:28 | XMS_ITS | Encounter Summary ---
Author Organization [facility] Address [facility] [place] [address] Care Team Providers Care Iron Molder Helper Name Role Phone Angie Alonzo MD Primary Care Provider [phone] Encounter Details Date Type Department Care Team (Late st Contact Info) Description 07/17/2022 1:45 PM EST Office Visit Radiation Oncology at [address] [phone] Edel Guzman, HAND HARDENER [facility] [place] [address] Malignant neoplasm of upper-inner quadrant of left [...] this encounter Progress Notes * Edel Guzman, HAND HARDENER - 07/17/2022 1:45 PM ESTSummary: 76 year old female FUV for breast cancer, post radiation therapy 2017 [facility] RADIATION ONCOLOGY [place] [id number] Phone: RADIATION ONCOLOGY FOLLOW UP NOTE Date of visit: 02/02/21 Patient Abimbola Dumas 1945 PCP: Angie Alonzo MD Radiation oncologist: Dr. Bethany Merrill Medical Oncologist: Dr. Kalyan Damico (follows with her tamoxifen) Surgeon: Dr Farooq s/p PM, oncoplasty and sentinel node biopsy 07/04/17 Followed yearly by surgical RUG WEAVER and mammo Chief Complaint: scheduled FUV for [...] by Dr Farooq Axillary lymph node Management [place] nodes alone Total Number of Nodes Removed [...] of radiation 08/05/17 through 09/02/2017 Radiation Mendez Malagasy Protocol Radiation Boost yes Total Dosage of [...] because one of its most important active [id number] not sufficiently available. Therefore, combination of tamoxifen and terbinafine should be avoided. https://pubmed.ncbi.nlm.nih.gov/10778495/ Medications 02/20/22 1059 Medication Sig Taking? tamoxifen (NOLVADEX) 20 mg Tablet Take 1 tablet by mouth daily. vitamin B complex (B COMPLEX ORAL) Take by mouth daily as needed. Hyazu-7-VNH-EPA-Fish Oil 1,200 (144-216) mg Capsule Take by [...] Tube Placement Left 04/10/2019 Adis Oliveira MD [facility] INTERVENTIONL RAD ??? JOINT REPLACEMENT hip right ??? ORTHOPEDIC SURGERY R hip ??? OVARY REMOVAL ??? PRO ADJACENT TISSUE TRANSFER/REARRANGE TRUNK 10.1-30.0CM Left 07/04/2017 ADJ.TISSUE TRANSFER, REARRANGEMENT, TRUNK,10.1 TO 30 SQ CM (WRVU 8.78) performed by Ashley Farooq MD at [facility] MAIN OR ??? PRO BX/REMV, LYMPH NODE, DEEP AXILL Left 07/04/2017 BIOPSY OR EXCISION OF LYMPH NODE(S), OPEN, DEEP AXILLARY NODE(S) (WRVU 6.43) performed by Ashley Farooq MD at [facility] MAIN OR ??? PRO CABG, ARTERIAL, SINGLE N/A 03/05/2019 @CABG, USING ARTERIAL GRAFT;SINGLE ARTERIAL GRAFT (WRVU 33.75) performed by Ryan Lynch MD at [facility] OR ??? PRO CABG, ARTERY-VEIN, THREE N/A 03/05/2019 @CABG; 3 VENOUS GRAFTS & ARTERIAL GRAFT (WRVU 10.49) performed by Ryan Lynch MD at [facility] MAIN OR ??? PRO ENDOSCOPY W/VIDEO-ASST VEIN HARVEST, CABG N/A 03/05/2019 ENDOSCOPIC HARVEST VEIN(S) FOR CABG (WRVU 0.31) performed by Ryan Lynch MD at [facility] MAIN OR ??? PRO INTRAOP SENTINEL LYMPH ID W/DYE INJECTION Left 07/04/2017 INTRAOPERATIVE ID (MAPPING) SENTINEL LYMPH NODE,INCLUDES INJECTION (WRVU 2.5) performed by Ashley Farooq MD at [facility] MAIN OR ??? PRO MASTECTOMY PARTIAL Left 07/04/2017 MASTECTOMY PARTIAL (WRVU 10.13) performed by Ashley Farooq MD at [facility] OR Family History Problem Relation Age of [...] Pain:Had total r knee replacement. Traveling to [place] for aprox 6 days to visit Son. Lifestyle/health: Weight/diet/appetite: no issues sleep: No problems Function/transportation: No problems. She does drive herself around during day. During Covid periodof time, her daughter got all errands, meds and groceries taken care of for her. Exercise/Bone health:2 days week -3 in pool in [facility] Exercise bicycle at home. Smoking:never Alcohol:rare Support/ [...] has questions or concerns. Edel Guzman MSN, HAND HARDENER, RUG WEAVER-C Nurse Practitioner Radiation Oncology documented in this encounter Plan of Treatment Not on file documented as of this encounter Visit Diagnoses Diagnosis Malignant neoplasm of upper-inner quadrant of left breast in female, estrogen receptor positive documented in this encounter Care Teams Iron Molder Helper Relationship Specialty Start Date End Date Angie Alonzo MD [address] [place] [address] PCP - General Family Medicine 06/25/17 documented as of this encounter
--- OUTSIDE RECORDS SUMMARY | 2024-08-12 10:28 | XMS_ITS | Encounter Summary ---
Author Organization [facility] Address [facility] [place] [address] Care Team Providers Care Gear Cutting Machine Set Up Operator Name Role Phone Angie Alonzo MD Primary Care Provider [phone] Encounter Details Date Type Department Care Team (Late st Contact Info) Description 12/04/2021 11:30 AM EDT Office Visit Endocrinology at [facility] [place] [address] Wilman Herndon MD [facility] [place] [address] Thyroid nodule Social History Tobacco Use Types [...] daily as needed., Disp: , Rfl: ??? Atmhz-1-PGU-EPA-Fish Oil (Fish Oil) 1,200 (144-216) mg Capsule, [...] meter (FREESTYLE) Kit, 1 each by [facility].(Non-Drug; Combo Route) route as needed forOther., Disp: [...] 0.27 - 4.20 mcIU/mL 1.14 Resulting Agency [facility] Lab Resulting Agency's Comment Spec In Lab [...] and coordination of care Wilman Herndon MD Chemical Laboratory Assistantlead refiner Endocrinology Section [facility] * Wilman Herndon MD - 12/04/2021 11:30 AM EDT ENDOCRINOLOGY THYROID ULTRASOUND REPORT Patient:Abimbola Dumas, [id number] Date of exam: 12/04/2021 Indication: history of thyroid nodule Comparison: 03/04/2020 thyroid US Performed by: Wilman Herndon MD Real time images of the thyroid gland were obtained using a ahoyDoc US machine. All measurements are given as Longitudinal/Sagittal x AP x Transverse. Right Lobe: The right lobe measures 84m27w97 mm with homogeneous echotexture In the right mid-lower pole there is a solid hypoechoic nodule measuring 83y23a45 mm. Smooth borders. No calcifications. GABY intermediate suspicion Isthmus: The isthmus measures 7 mm Left Lobe: The left lobe measures [id number] with homogeneous echotexture Lateral neck: I examined [...] goiter documented in this encounter Care Teams Gear Cutting Machine Set Up Operator Relationship Specialty Start Date End Date Angie Alonzo MD [address] [place] [address] PCP - General Family Medicine 06/25/17 documented as of this encounter
--- OUTSIDE RECORDS SUMMARY | 2024-08-12 10:28 | XMS_ITS | Encounter Summary ---
Author Organization [facility] Address [facility] [place] [address] Care Team Providers Care Filing Or Registry Clerk Name Role Phone Angie Alonzo MD Primary Care Provider [phone] Encounter Details Date Type Department Care Team (Late st Contact Info) Description 07/03/2022 Telephone Radiation Oncology at [address] [phone] Lynn Corley RN Social History [...] ----- Regarding: Cold Symptoms- appt moved out [place] was scheduled for a 6M breast FUV today and had coughing/cold symptoms so we bumped her out twoweeks. She is going to plan to covid test at the end of next week if she still has symptoms. documented in this encounter Plan of Treatment Not on file documented as of this encounter Visit Diagnoses Not on filedocumented in this encounter Care Teams Filing Or Registry Clerk Relationship Specialty Start Date End Date Angie Alonzo MD [address] [place] [address] PCP - General Family Medicine 06/25/17 documented as of this encounter
--- OUTSIDE RECORDS SUMMARY | 2024-08-12 10:28 | XMS_ITS | Encounter Summary ---
Author Organization [facility] [place] [address] Care Team Providers Care Apartment House Manager Name Role Phone Angie Alonzo MD Primary Care Provider [phone] Encounter Details Date Type Department Care Team (Latest Contact Info) Description 01/24/2021 9:20 AM EDT Office Visit General Surgery at [facility] [place] [address] Kasey Delgado APRN [facility] DR GENERAL SURGERY [place] [id number] Encounter for follow-up surveillance of breast cancer; [...] free apps for your cell phone from [employer] ([employer]) and [employer] ([employer]). documented in this encounter Progress Notes * [...] history: A screening mammogram on 11/09/2016 at [facility] noted a new 0.9 mm mass in the left, upper inner quadrant. US showed a subtle 6-mm hypoechoic mass with some internal vascularity. She underwent biopsy on 12/04/2016 which came back as benign, but a second read here at [facility] was not concordant, so she was sent to [facility] and had repeat biopsy which did show a low grade, ER/[place] positive, HER2 negative breast cancer. One sentinel [...] Grade Low grade Margin negative ER positive [place] positive First Adjuvant Endocrine Therapy anastrozole Radiation [...] situation. Results: Imaging performed (bilateral mammogram) at [facility] today shows no evidence of malignancy, BI-RADS [...] - Mammo Screening Cad and Yamil Bilateral; December 2021 I have discussed my [...] free apps for your cell phone from [employer] ([employer]) and [employer] ([employer]). All questions were answered to the patient's satisfaction and they state understanding and agreement with today's treatment plan. They are encouraged to follow up sooner if they develop any new or concerning symptoms. Kasey Delgado APRN Surgical Oncology P [phone] F [phone] [facility] documented in this encounter Plan of Treatment [...] have questions please contact the health career developer that requested your imaging first. ? Kasey [...] breast documented in this encounter Care Teams Apartment House Manager Relationship Specialty Start Date End Date Angie Alonzo MD [facility] [address] [facility] [place] [address] PCP - General Family Medicine 06/25/17 documented as of this encounter
--- OUTSIDE RECORDS SUMMARY | 2024-08-12 10:28 | XMS_ITS | Encounter Summary ---
Author Organization [facility] Address [facility] [place] [address] Care Team Providers Care Cryptologist Name Role Phone Angie Alonzo MD Primary Care Provider [phone] Reason for Visit * Reason Comments Follow-up Encounter Details Date Type Department Care Team (Late st Contact Info) Description 07/30/2019 4:30 PM EST Office Visit Hematology and Oncology at [facility] [place] [address] Kalyan Damico MD Malignant neoplasm of upper-inner [...] 4:30 PM EST Subjective: Patient ID: Abimbola Dumas is [...] through August of 2022. Kalyan Damico MD registered dental assistant rda in Hematology-Oncology documented in this encounter Plan of Treatment Not on file documented as of this encounter Results * (ABNORMAL) Hepatic Function Panel (01/26/2020 11:55 AM EDT) Protein, Total 7.1 6.1 - 8.0 gm/dL [facility] Albumin 4.3 3.2 - 5.2 gm/dL [facility] Aspartate Aminotransferase 31(H) 0 - 30 unit/L [facility] Alanine Aminotransferase 31(H) 0 - 30 unit/L [facility] Alkaline Phosphatase 59 35 - 105 unit/L [facility] Bilirubin, Total 0.3 0.2 - 1.3 mg/dL [facility] Bilirubin, Direct 0.1 0.0 - 0.3 mg/dL [facility] Blood specimen (specimen) 01/26/2020 11:55 AM EDT 01/26/2020 12:06 PM EDT Narrative Resulting Agency Comment Spec In Lab Kalyan Damico MD CHEMISTRY ORDERABLES [facility] [place] [address] documented in this encounter Visit Diagnoses Diagnosis Malignant neoplasm of upper-inner quadrant of left breast in female, estrogen receptor positive documented in this encounter Care Teams Cryptologist Relationship Specialty Start Date End Date Angie Alonzo MD [facility] [address] [facility] [address] [place] [address] PCP - General Family Medicine 06/25/17 documented as of this encounter
--- OUTSIDE RECORDS SUMMARY | 2024-08-12 10:28 | XMS_ITS | Encounter Summary ---
Author Organization Counts Include [facility] Address [facility] [place] [address] Care Team Providers Care Seismograph Recorder Name Role Phone Angie Alonzo MD Primary Care Provider [phone] Encounter Details Date Type Department Care Team (Late st Contact Info) Description 09/11/[address] [facility] [place] [phone] Nimco Mohan MD [facility] [place] [address] Social History Tobacco Use Types Packs/Day Years [...] plan to reschedule. Nimco Mohan MD PGY-5 [facility] [place]ocrinology, Diabetes, and Metabolism Fellow Pager #[phone] documented in this encounter Plan of Treatment Not on file documented as of this encounter Visit Diagnoses Not on filedocumented in this encounter Care Teams Seismograph Recorder Relationship Specialty Start Date End Date Angie Alonzo MD [address] [place] [address] PCP - General Family Medicine 06/25/17 documented as of this encounter
--- OUTSIDE RECORDS SUMMARY | 2024-08-12 10:28 | XMS_ITS | Encounter Summary ---
Author Organization [facility] [place] [address] Care Team Providers Care Acetylene Torch Solderer Name Role Phone Angie Alonzo MD Primary Care Provider [phone] Reason for Visit * Reason Comments Medication Refill Encounter Details Date Type Department Care Team (Late st Contact Info) Description 02/05/2021 Refill Hematology and Oncology at [facility] [place] [address] Kalyan Damico MD Malignant neoplasm of upper-inner [...] positive documented in this encounter Care Teams Acetylene Torch Solderer Relationship Specialty Start Date End Date Angie Alonzo MD [address] [place] [address] PCP - General Family Medicine 06/25/17 documented as of this encounter
--- OUTSIDE RECORDS SUMMARY | 2024-08-12 10:28 | XMS_ITS | Encounter Summary ---
Author Organization [facility] [place] [address] Care Team Providers Care Belt Builder Name Role Phone Angie Alonzo MD Primary Care Provider [phone] Encounter Details Date Type Department Care Team (Latest Contact Info) Description 03/04/2020 10:40 AM EDT Laboratory Appointment Lab [address] [place] [address] Solitary nodule of right lobe of thyroid [...] Stimulating Hormone 1.14 0.27 - 4.20 mcIU/mL [facility] Blood specimen (specimen) 03/04/2020 10:56 AM EDT 03/04/2020 11:03 AM EDT Narrative Resulting Agency Comment Spec In Lab Dolly De Luna MD CHEMISTRY ORDERABLES [facility] [place] [address] documented in this encounter Visit Diagnoses Diagnosis Solitary nodule of right lobe of thyroid Nontoxic uninodular goiter documented in this encounter Care Teams Belt Builder Relationship Specialty Start Date End Date Angie Alonzo MD [address] [facility] 1 [place] [address] PCP - General Family Medicine 06/25/17 documented as of this encounter
--- OUTSIDE RECORDS SUMMARY | 2024-08-12 10:28 | XMS_ITS | Encounter Summary ---
Author Organization [facility] [place] [address] Care Team Providers Care Learning And Development Coordinator Name Role Phone Angie Alonzo MD Primary Care Provider [phone] Reason for Visit * Consultation (Routine) - Specialty Diagnoses / Procedures Referred By Mima rivera Referred To Contact Endocrinology Diagnoses Nontoxic single thyroid nodule Angie Alonzo MD [facility] [address] [facility] [place] [address] [facility] Endocrinology [address] [place] [phone] Referral ID Status Reason Start Date Expiration Date V isits Requested Visits Authorized [id number] Consult, Test & Treat [facility] PCP Updated and/or Approved 02/08/2020 08/10/2020 6 6 Encounter Details Date Type Department Care Team (Late st Contact Info) Description 03/04/2020 11:30 AM EDT Office [place] [address] Brian Booth MD Solitary nodule of right lobe of thyroid [...] meter (FREESTYLE) Kit, 1 each by [facility].(Non-Drug; Combo Route) route as needed forOther., Disp: [...] Tube Placement Left 04/10/2019 Adis Oliveira MD [facility] INTERVENTIONL RAD ??? JOINT REPLACEMENT hip right ??? ORTHOPEDIC SURGERY R hip ??? OVARY REMOVAL ??? PRO ADJ TISS XFER TRUNK 10.1-30 Left 07/04/2017 ADJ.TISSUE TRANSFER, REARRANGEMENT, TRUNK,10.1 TO 30 SQ CM (WRVU 8.78) performed by Ashley Farooq MD at [facility] MAIN OR ??? PRO BX/REMV, LYMPH NODE, DEEP AXILL Left 07/04/2017 BIOPSY OR EXCISION OF LYMPH NODE(S), OPEN, DEEP AXILLARY NODE(S) (WRVU 6.43) performed by Ashley Farooq MD at [facility] MAIN OR ??? PRO CABG, ARTERIAL, SINGLE N/A 03/05/2019 @CABG, USING ARTERIAL GRAFT;SINGLE ARTERIAL GRAFT (WRVU 33.75) performed by Ryan Lynch MD at [facility] MAIN OR ??? PRO CABG, ARTERY-VEIN, THREE N/A 03/05/2019 @CABG; 3 VENOUS GRAFTS & ARTERIAL GRAFT (WRVU 10.49) performed by Ryan Lynch MD at [facility] MAIN OR ??? PRO ENDOSCOPY W/VIDEO-ASST VEIN HARVEST, CABG N/A 03/05/2019 ENDOSCOPIC HARVEST VEIN(S) FOR CABG (WRVU 0.31) performed by Ryan Lynch MD at [facility] MAIN OR ??? PRO INTRAOP SENTINEL LYMPH ID W/DYE INJECTION Left 07/04/2017 INTRAOPERATIVE ID (MAPPING) SENTINEL LYMPH NODE,INCLUDES INJECTION (WRVU 2.5) performed by Ashley Farooq MD at [facility] MAIN OR ??? PRO MASTECTOMY PARTIAL Left 07/04/2017 MASTECTOMY PARTIAL (WRVU 10.13) performed by Ashley Farooq MD at [facility] MAIN OR Social History Tobacco Use [...] Calixto Booth Fellow, Endocrinology, Diabetes and Metabolism [facility] * Brian Booth MD - 03/04/2020 11:30 AM EDT ENDOCRINOLOGY THYROID ULTRASOUND REPORT Patient:Abimbola Dumas, Date of exam: 03/04/2020 Indication: Right thyroid nodule Comparison: Thyroid US from 2018 Performed by: Brian Booth/Edin De Luna MD Real time images of the thyroid gland were obtained using a BK US machine. All measurements are given as [...] with this plan. DOLLY DE LUNA MD Field Advisorassociate broker Section of Endocrinology [facility] documented in this encounter Plan of Treatment Not on file documented as of this encounter Results * TSH (03/04/2020 10:56 AM EDT) Thyroid Stimulating Hormone 1.14 0.27 - 4.20 mcIU/mL [facility] Blood specimen (specimen) 03/04/2020 10:56 AM EDT 03/04/2020 11:03 AM EDT Narrative Resulting Agency Comment Spec In Lab Dolly De Luna MD CHEMISTRY ORDERABLES [facility] [place] [address] documented in this encounter Visit Diagnoses Diagnosis Solitary nodule of right lobe of thyroid Nontoxic uninodular goiter documented in this encounter Care Teams Learning And Development Coordinator Relationship Specialty Start Date End Date Angie Alonzo MD [facility] [address] [place] [address] PCP - General Family Medicine 06/25/17 documented as of this encounter
--- OUTSIDE RECORDS SUMMARY | 2024-08-12 10:28 | XMS_ITS | Encounter Summary ---
Author Organization [facility] Address [facility] [place] [address] Care Team Providers Care Grizzlyman Name Role Phone Angie Alonzo MD Primary Care Provider [phone] Encounter Details Date Type Department Care Team (Latest Contact Info) Description 01/26/2020 11:45 AM EDT - 01/26/2020 11:59 PM EDT Hospital Encounter Hematology and Oncology at [facility] [place] [address] Malignant neoplasm of upper-inner quadrant of left [...] blood-glucose meter (FREESTYLE) Kit 1 each by [facility].(Non-Drug; Combo Route) route as needed for Other. [...] CHEMISTRY ORDERABLES [facility] [place] [address] documented in this encounter Visit Diagnoses Diagnosis Malignant neoplasm of upper-inner quadrant of left breast in female, estrogen receptor positive documented in this encounter Care Teams Grizzlyman Relationship Specialty Start Date End Date Angie Alonzo MD [address] [place] [address] PCP - General Family Medicine 06/25/17 documented as of this encounter
--- OUTSIDE RECORDS SUMMARY | 2024-08-12 10:28 | XMS_ITS | Encounter Summary ---
Author Organization [facility] Address [facility] [place] [address] Care Team Providers Care Cartoon Designer Name Role Phone Angie Alonzo MD Primary Care Provider Encounter Details Date Type Department Care Team (Late st Contact Info) Description 08/01/2021 9:30 AM EST Office Visit Radiation Oncology at [address] [phone] Edel Guzman, NURSE ORTHO [facility] [place] [address] Malignant neoplasm of upper-inner quadrant of left [...] this encounter Progress Notes * Edel Guzman, NURSE ORTHO - 08/01/2021 9:30 AM ESTSummary: 75 year old F dx L breast for breast ca, IDC, low gr, ER+KY+, Her2 neg, s/p lumpectomy & SNB, pT1b pN0, stage I. Larson w/ med onc . s/p xrt 09/02/17 [facility] [place] [address] Phone: RADIATION ONCOLOGY FOLLOW UP NOTE Date of visit: 02/02/21 Patient Abimbola Dumas 1945 PCP: Angie Alonzo MD Radiation oncologist: Dr. Bethany Merrill Medical Oncologist: Dr. Kalyan Damico (follows with her tamoxifen) Surgeon: Dr Farooq s/p PM, oncoplasty and sentinel node biopsy 07/04/17 Followed yearly by surgical CURTAINS AND DRAPERIES SALESPERSON and mammo Chief Complaint: scheduled FUV for breast cancer, post radiation therapy Time since completed RT: 09/02/2017 Current treatment: Med Onc follows with tamoxifen management. Surgery follows with Mammo Screening Cad and Yamil Bilateral; scheduled for December 2021 ?? HPI: 71 y/o f who completed xrt (09/02/17) to L breast for breast ca, IDC, low gr, ER+KY+, Her2 neg, s/p lumpectomy & SNB, pT1b [...] Dr Farooq Axillary lymph node Management [place] nodes alone Total Number of Nodes Removed [...] Grade low Margin negative ER-estrogen receptor positive [place]--progesterone receptor positive HER-2/FISH negative Endocrine Therapy Recommended for Hormone Sensitive Invasive Tumor yes First Adjuvant Endocrine Therapy Tamoxifen Dates of radiation 08/05/17 through 09/02/2017 Radiation [place]endez [place] Protocol Radiation Boost yes Total Dosage of [...] because one of its most important active ncxquqeubph-lmkbnswmg-oi not sufficiently available. Therefore, combination of tamoxifen and terbinafine should be avoided. https://pubmed.ncbi.nlm.nih.gov/28487214/ Medications 02/02/21 0941 Medication Sig Taking? tamoxifen (NOLVADEX) 20 mg Tablet Take 1 tablet by mouth daily. vitamin B complex (B COMPLEX ORAL) Take by mouth daily as needed. Bkyhs-1-MCF-EPA-Fish Oil (Fish Oil) 1,200 (144-216) mg Capsule [...] meter (FREESTYLE) Kit 1 each by [facility].(Non-Drug; Combo Route) route as [...] Tube Placement Left 04/10/2019 Adis Oliveira MD [facility] INTERVENTIONL RAD ??? JOINT REPLACEMENT hip right ??? ORTHOPEDIC SURGERY R hip ??? OVARY REMOVAL ??? PRO ADJ TISS XFER TRUNK 10.1-30 Left 07/04/2017 ADJ.TISSUE TRANSFER, REARRANGEMENT, TRUNK,10.1 TO 30 SQ CM (WRVU 8.78) performed by Ashley Farooq MD at [facility] MAIN OR ??? PRO BX/REMV, LYMPH NODE, DEEP AXILL Left 07/04/2017 BIOPSY OR EXCISION OF LYMPH NODE(S), OPEN, DEEP AXILLARY NODE(S) (WRVU 6.43) performed by Ashley Farooq MD at [facility] MAIN OR ??? PRO CABG, ARTERIAL, SINGLE N/A 03/05/2019 @CABG, USING ARTERIAL GRAFT;SINGLE ARTERIAL GRAFT (WRVU 33.75) performed by Ryan Lynch MD at [facility] MAIN OR ??? PRO CABG, ARTERY-VEIN, THREE N/A 03/05/2019 @CABG; 3 VENOUS GRAFTS & ARTERIAL GRAFT (WRVU 10.49) performed by Ryan Lynch MD at [facility] MAIN OR ??? PRO ENDOSCOPY W/VIDEO-ASST VEIN HARVEST, CABG N/A 03/05/2019 ENDOSCOPIC HARVEST VEIN(S) FOR CABG (WRVU 0.31) performed by Ryan Lynch MD at [facility] MAIN OR ??? PRO INTRAOP SENTINEL LYMPH ID W/DYE INJECTION Left 07/04/2017 INTRAOPERATIVE ID (MAPPING) SENTINEL LYMPH NODE,INCLUDES INJECTION (WRVU 2.5) performed by Ashley Farooq MD at [facility] MAIN OR ??? PRO MASTECTOMY PARTIAL Left 07/04/2017 MASTECTOMY PARTIAL (WRVU 10.13) performed by Ashley Farooq MD at [facility] MAIN OR Family History Problem Relation Age [...] Pain:Had total r knee replacement. Traveling to [place] for aprox 6 days to visit Son. Lifestyle/health: Weight/diet/appetite: She notes that she has gained a few pounds sleep: No problems function/transportation: No problems. Exercise/Bone health:2 days week -3 in pool [facility] Exercise bicycle at home. Smoking:never Alcohol:rare [...] no sx with breast. Edel Guzman MSN, NURSE ORTHO, [employer]TA[employer]APER[employer] SALESPERSON-C Nurse Practitioner Radiation Oncology documented in this encounter Plan of Treatment Not on file documented as of this encounter Visit Diagnoses Diagnosis Malignant neoplasm of upper-inner quadrant of left breast in female, estrogen receptor positive documented in this encounter Care Teams Cartoon Designer Relationship Specialty Start Date End Date Angie Alonzo MD [address] [place] [address] PCP - General Family Medicine 06/25/17 documented as of this encounter
--- OUTSIDE RECORDS SUMMARY | 2024-08-12 10:28 | XMS_ITS | Encounter Summary ---
Author Organization [facility] Address [facility] [place] [address] Care Team Providers Care Chief Technical Officer Name Role Phone Angie Alonzo MD Primary Care Provider [phone] Encounter Details Date Type Department Care Team (Latest Contact Info) Description 07/15/2020 12:00 PM EST TH Visit (TeleHealth) Radiation Oncology at [address] [phone] Brittany Solomon APRN Malignant neoplasm of upper-inner [...] for L breast ca, IDC, low gr, ER+KS+, Her2 neg, s/p lumpectomy & SNB, pT1b pN0, stage I. She was started on hormone therapy post completion of radiation therapy. Today's visit is a telephone visit due to the constraints of Covid-19 ?? HPI 71 y/o f who presented w/L breast abnlty on screening mmg. ?? 11/06/16 B screening mmg ([facility]): Questionable increased density medial subareolar [...] core bx. ?? Path: IDC, low gr, ER+KS+, Her2 FISH neg. ?? 06/19/17 eval by [...] by Dr Farooq Axillary lymph node Management [place] nodes alone Total Number of Nodes Removed [...] Grade low Margin negative ER-estrogen receptor positive [place]--progesterone receptor positive HER-2/FISH negative Endocrine Therapy Recommended for Hormone Sensitive Invasive Tumor yes First Adjuvant Endocrine Therapy Tamoxifen Dates of radiation 08/05/17 through 09/02/2017 Radiation [place]endez [place] Protocol Radiation Boost yes Total Dosage of [...] of left breast in female, estrogen receptor zvurixmqG89.212, Z17.0 ??? CAD (coronary artery disease) I25.10 [...] Tube Placement Left 04/10/2019 Adis Oliveira MD [facility] INTERVENTIONL RAD ??? JOINT REPLACEMENT hip right ??? ORTHOPEDIC SURGERY R hip ??? OVARY REMOVAL ??? PRO ADJ TISS XFER TRUNK 10.1-30 Left 07/04/2017 ADJ.TISSUE TRANSFER, REARRANGEMENT, TRUNK,10.1 TO 30 SQ CM (WRVU 8.78) performed by Ashley Farooq MD at [facility] MAIN OR ??? PRO BX/REMV, LYMPH NODE, DEEP AXILL Left 07/04/2017 BIOPSY OR EXCISION OF LYMPH NODE(S), OPEN, DEEP AXILLARY NODE(S) (WRVU 6.43) performed by Ashley Farooq MD at [facility] MAIN OR ??? PRO CABG, ARTERIAL, SINGLE N/A 03/05/2019 @CABG, USING ARTERIAL GRAFT;SINGLE ARTERIAL GRAFT (WRVU 33.75) performed by Ryan Lynch MD at [facility] MAIN OR ??? PRO CABG, ARTERY-VEIN, THREE N/A 03/05/2019 @CABG; 3 VENOUS GRAFTS & ARTERIAL GRAFT (WRVU 10.49) performed by Ryan Lynch MD at [facility] MAIN OR ??? PRO ENDOSCOPY W/VIDEO-ASST VEIN HARVEST, CABG N/A 03/05/2019 ENDOSCOPIC HARVEST VEIN(S) FOR CABG (WRVU 0.31) performed by Ryan Lynch MD at [facility] MAIN OR ??? PRO INTRAOP SENTINEL LYMPH ID W/DYE INJECTION Left 07/04/2017 INTRAOPERATIVE ID (MAPPING) SENTINEL LYMPH NODE,INCLUDES INJECTION (WRVU 2.5) performed by Ashley Farooq MD at [facility] MAIN OR ??? PRO MASTECTOMY PARTIAL Left 07/04/2017 MASTECTOMY PARTIAL (WRVU 10.13) performed by Ashley Farooq MD at [facility] OR Review and update of social [...] the house. Hormone therapy side effects None [facility] [place] Has emergency alert system due to fall in 2017 and fx left wrist . 01/20/2019- mammogram--no evidence of malignancy December 2019 mammogram- no evidence of malignancy Assessment and Plan: Abimbola Dumas is a 74 y.o.. female completed xrt on 09/02/17 to a dose of 52.56 Gy for L breast ca, IDC,low gr, ER+KS+, Her2 neg, s/p lumpectomy & SNB, pT1b [...] positive documented in this encounter Care Teams Chief Technical Officer Relationship Specialty Start Date End Date Angie Alonzo MD [address] [place], [place] [address] [place] [address] PCP - General Family Medicine 06/25/17 documented as of this encounter
--- OUTSIDE RECORDS SUMMARY | 2024-08-12 10:28 | XMS_ITS | Encounter Summary ---
Author Organization [facility] Address [facility] [place] [address] Care Team Providers Care Dividend Deposit Voucher Clerk Name Role Phone Angie Alonzo MD Primary Care Provider [phone] Encounter Details Date Type Department Care Team (Latest Contact Info) Description 01/24/2021 7:29 AM EDT - 01/24/2021 11:59 PM EDT Hospital Encounter Mammography/[place] [phone] Kasey Delgado APRN [facility] [place] [address] Malignant neoplasm of upper-inner quadrant of left [...] meter (FREESTYLE) Kit 1 each by [facility].(Non-Drug; Combo Route) route as needed for Other. aspirin 81 mg Tablet, Chewable Take 81 mg by mouth daily. tamoxifen (NOLVADEX) 20 mg TabletIndications:Kristy sterling neoplasm of upper-inner quadrant of left breast in female, estrogen receptor positive Take 1 tablet by mouth daily. 90 tablet 3 09/09/2020 09/29/2021 Wwyjj-0-JZA-EPA-Fish Oil 1,200 (144-216) mg Capsule Take by [...] who have questions please contact the health transitional care liaison that requested your imaging first. ? Kasey Delgado APRN IMG MAMMO ORD ERABLES documented in this encounter Visit Diagnoses Diagnosis Malignant neoplasm of upper-inner quadrant of left breast in female, estrogen receptor positive Breast cancer screening by mammogram documented in this encounter Care Teams Dividend Deposit Voucher Clerk Relationship Specialty Start Date End Date Angie Alonzo MD [address] [place] [address] PCP - General Family Medicine 06/25/17 documented as of this encounter
--- OUTSIDE RECORDS SUMMARY | 2024-08-12 10:28 | XMS_ITS | Encounter Summary ---
Author Organization [facility] [place] [address] Care Team Providers Care Freight Receiver Name Role Phone Angie Alonzo MD Primary Care Provider [phone] Encounter Details Date Type Department Care Team (Late st Contact Info) Description 03/05/2023 10:40 AM EDT Office Visit General Surgery at [facility] [place] [address] Kasey Delgado, ADOPTION SPECIALIST [facility] [place] [address] Encounter for follow-up surveillance of breast cancer; [...] history: A screening mammogram on 11/09/2016 at [facility] noted a new 0.9 mm mass in the left, upper inner quadrant. US showed a subtle 6-mm hypoechoic mass with some internal vascularity. She underwent biopsy on 12/04/2016 which came back as benign, but a second read here at [facility] was not concordant, so she was sent to [facility] and had repeat biopsy which showed a low grade, ER/MI positive, HER-2 negative breast cancer. One sentinel [...] Grade Low grade Margin Negative ER Positive [place] Positive First Adjuvant Endocrine Therapy Tamoxifen started [...] Family history of ovarian cancer No Ashkenazi Mu-Ism heritage No Known genetic mutation Not tested [...] situation. Results: Imaging performed (bilateral mammogram) at [facility] today shows no evidence of malignancy, BI-RADS [...] free apps for your cell phone from [employer] ([employer]) and [employer] ([employer]). All questions were answered to the patient's satisfaction and they state understanding and agreement with today's treatment plan. They are encouraged to follow up sooner if they develop any new or concerning symptoms. Kasey Delgado APRN Surgical Oncology P [phone] F [phone] [facility] documented in this encounter Plan of Treatment Not on file documented as of this encounter Visit Diagnoses Diagnosis Encounter for follow-up surveillance of breast cancer Unspecified follow-up examination Malignant neoplasm of upper-inner quadrant of left breast in female, estrogen receptor positive Breast cancer screening by mammogram documented in this encounter Care Teams Freight Receiver Relationship Specialty Start Date End Date Angie Alonzo MD [address] [place] [address] PCP - General Family Medicine 06/25/17 documented as of this encounter
--- OUTSIDE RECORDS SUMMARY | 2024-08-12 10:28 | XMS_ITS | Encounter Summary ---
Author Organization [facility] Address [facility] [place] [address] Care Team Providers Care Director Of Food And Nutrition Services Name Role Phone Angie Alonzo MD Primary Care Provider [phone] Encounter Details Date Type Department Care Team (Latest Contact Info) Description 02/20/2022 8:32 AM EDT - 02/20/2022 11:59 PM EDT Hospital Encounter Mammography/[place] [phone] Kasey Delgado APRN [facility] [place] [address] Malignant neoplasm of upper-inner quadrant of left [...] blood-glucose meter (FREESTYLE) Kit 1 each by [employer].(Non-Drug; Combo Route) route as needed for Other. aspirin 81 mg Tablet, Chewable Take 81 mg by mouth daily. tamoxifen (NOLVADEX) 20 mg TabletIndications:Malig nant neoplasm of upper-inner quadrant of left breast in female, estrogen receptor positive Take 1 tablet by mouth daily. 90 tablet 1 02/20/2022 03/05/2023 Vidsc-9-ZGU-EPA-Fish Oil 1,200 (144-216) mg Capsule Take by [...] who have questions please contact the health resident care director that requested your imaging first. ? Electronically signed by: Billie Parker MD, [facility] ([phone]), at 02/20/2022 9:19 AM Kasey Delgado STOCK CHECKER IMG MAMMO ORD ERABLES documented in this encounter Visit Diagnoses Diagnosis Malignant neoplasm of upper-inner quadrant of left breast in female, estrogen receptor positive Breast cancer screening by mammogram Breast calcifications on mammogram Other (abnormal) findings on radiological examination of breast documented in this encounter Care Teams Director Of Food And Nutrition Services Relationship Specialty Start Date End Date Angie Alonzo MD [facility] [address] [place] [address] PCP - General Family Medicine 06/25/17 documented as of this encounter
--- OUTSIDE RECORDS SUMMARY | 2024-08-12 10:28 | XMS_ITS | Encounter Summary ---
Author Organization [facility] Address [facility] [place] [address] Care Team Providers Care Physically Impaired Teacher Name Role Phone Angie Alonzo MD Primary Care Provider [phone] Encounter Details Date Type Department Care Team [...] on filedocumented in this encounter Care Teams Physically Impaired Teacher Relationship Specialty Start Date End Date Angie Alonzo MD [facility] [address] [place] [address] PCP - General Family Medicine 06/25/17 documented as of this encounter
--- OUTSIDE RECORDS SUMMARY | 2024-08-12 10:28 | XMS_ITS | Encounter Summary ---
Author Organization [facility] [place] [address] Care Team Providers Care Business Development Agent Name Role Phone Angie Alonzo MD Primary Care Provider [phone] Reason for Visit * Reason Comments Follow-up Encounter Details Date Type Department Care Team (Late st Contact Info) Description 02/20/2022 10:00 AM EDT Office Visit [place] [address] Kasey Delgado APRN [facility] [place] [address] Encounter for follow-up surveillance of breast cancer; [...] history: A screening mammogram on 11/09/2016 at [facility] noted a new 0.9 mm mass in the left, upper inner quadrant. US showed a subtle 6-mm hypoechoic mass with some internal vascularity. She underwent biopsy on 12/04/2016 which came back as benign, but a second read here at [facility] was not concordant, so she was sent to [facility] and had repeat biopsy which showed a low grade, ER/[place] positive, HER-2 negative breast cancer. One sentinel [...] Grade Low grade Margin Negative ER Positive [place] Positive First Adjuvant Endocrine Therapy Tamoxifen started [...] Family history of ovarian cancer No Ashkenazi Confucianist heritage No Known genetic mutation Not tested [...] situation. Results: Imaging performed (bilateral mammogram) at [facility] today shows no evidence of malignancy, BI-RADS [...] appointment, she will plan to transfer to [facility] for mammograms if they continue. She will [...] free apps for your cell phone from [employer] (Healthy Living) and [employer] ([employer]). All questions were answered to the patient's satisfaction and they state understanding and agreement with today's treatment plan. They are encouraged to follow up sooner if they develop any new or concerning symptoms. Kasey Delgado APRN Surgical Oncology P [phone] F [phone] [facility] documented in this encounter Plan of [...] who have questions please contact the health child care teacher that requested your imaging first. ? Electronically signed by: Billie Parker MD, [facility] ([phone]), at 03/05/2023 10:10 AM Narrative 03/05/2023 10:10 [...] mammogram documented in this encounter Care Teams Business Development Agent Relationship Specialty Start Date End Date Angie Alonzo MD [address] [place] [address] PCP - General Family Medicine 06/25/17 documented as of this encounter
--- OUTSIDE RECORDS SUMMARY | 2024-08-12 10:28 | XMS_ITS | Encounter Summary ---
Author Organization [facility] [place] [address] Care Team Providers Care News Commentator Name Role Phone Angie Alonzo MD Primary Care Provider [phone] Encounter Details Date Type Department Care Team (Latest Contact Info) Description 01/26/2020 11:02 AM EDT - 01/26/2020 11:44 AM EDT Hospital Encounter Mammography[place] [phone] Kasey Delgado APRN [facility] [place] [address] History of breast cancer; Encounter for screening [...] cancer documented in this encounter Care Teams News Commentator Relationship Specialty Start Date End Date Angie Alonzo MD [address] [place] [address] PCP - General Family Medicine 06/25/17 documented as of this encounter
--- OUTSIDE RECORDS SUMMARY | 2024-08-12 10:28 | XMS_ITS | Encounter Summary ---
Author Organization [facility] Address [facility] [place] [address] Care Team Providers Care Mechanical Engineering Officer Name Role Phone Anige Alonzo MD Primary Care Provider [phone] Encounter Details Date Type Department Care Team (Latest Contact Info) Description 03/05/2023 9:11 AM EDT - 03/05/2023 11:59 PM EDT Hospital Encounter Mammography/[place] [phone] Kasey Delgado APRN [facility] [place] [address] Malignant neoplasm of upper-inner quadrant of left [...] End Date MULTIVITAMIN ORAL 1 tablet. 09/01/2012 [place]-3 Fatty Acids 100 mg Tablet, Chewable daily. 03/28/2022 b complex vitamins Tablet 1 tablet. 03/28/2022 azelastine (ASTELIN) 137 mcg (0.1 %) Aerosol, [place] SPRAY 1 SPRAY INTO BOTH NOSTRILS ONCE [...] blood-glucose meter (FREESTYLE) Kit 1 each by [facility].(Non-Drug; Combo Route) route as needed for Other. [...] questions please contact the health home care companion that requested your imaging first. ? Electronically signed by: Billie Parker MD, [facility] ([phone]), at 03/05/2023 10:10 AM Narrative 03/05/2023 10:10 [...] mammogram documented in this encounter Care Teams Mechanical Engineering Officer Relationship Specialty Start Date End Date Angie Alonzo MD [address] [facility] [place] [address] PCP - General Family Medicine 06/25/17 documented as of this encounter
--- OUTSIDE RECORDS SUMMARY | 2024-08-12 10:28 | XMS_ITS | Encounter Summary ---
Author [place] [address] Care Team Providers Care Raw Material Planner Name Role Phone Angie Alonzo MD Primary Care Provider [phone] Reason for Referral * Consultation (Routine) - Closed Specialty Diagnoses / Procedures Referred By Mima rivera Referred To Contact Orthopaedics Diagnoses Flat feet Pain in right foot Unilateral primary osteoarthritis, left knee Carlos Encinas MD [address] [place] [address] [facility] [address] [place] [phone] Referral ID Status Reason Start Date Expiration Date V isits Requested Visits Authorized [id number] Closed Consult, Test & Treat PCP Updated and/or Approved 02/11/2023 02/11/2024 6 6 Encounter Details Date Type Department Care Team (Late st Contact Info) Description 02/11/2023 Transcribe Orders eDH Incoming Referrals [phone] Carlos Encinas MD [address] [place], [place] [id number] Flat feet Social History Tobacco Use Types [...] foot documented in this encounter Care Teams Raw Material Planner Relationship Specialty Start Date End Date Angie Alonzo MD [address] [place] [address] PCP - General Family Medicine 06/25/17 documented as of this encounter
--- OUTSIDE RECORDS SUMMARY | 2024-08-12 10:28 | XMS_ITS | Encounter Summary ---
Author Organization Counts Include [facility] Address [facility] [place] [address] Care Team Providers Care Field Sampling Technician Name Role Phone Angie Alonzo MD Primary Care Provider [phone] Encounter Details Date Type Department Care Team (Late st Contact Info) Description 09/11/2019 Telephone [place] [phone] Nimco Mohan MD [facility] [place] [address] Social History Tobacco Use Types Packs/Day Years [...] on filedocumented in this encounter Care Teams Field Sampling Technician Relationship Specialty Start Date End Date Angie Alonzo MD [facility] [address] [place] [address] PCP - General Family Medicine 06/25/17 documented as of this encounter
--- OUTSIDE RECORDS SUMMARY | 2024-08-12 10:28 | XMS_ITS | Encounter Summary ---
Author Organization [facility] [place] [address] Care Team Providers Care Telephone Engineer Name Role Phone Angie Alonzo MD Primary Care Provider [phone] Encounter Details Date Type Department Care Team (Late st Contact Info) Description 09/17/2019 Orders Only Hematology [place] [address] Kalyan Damico MD Malignant neoplasm of upper-inner [...] documented in this encounter Care Teams Telephone Engineer Relationship Specialty Start Date End Date Angie Alonzo MD [facility] [address] [place] [address] PCP - General Family Medicine 06/25/17 documented as of this encounter
--- OUTSIDE RECORDS SUMMARY | 2024-08-12 10:28 | XMS_ITS | Encounter Summary ---
Author Organization [facility] Address [facility] [place] [address] Care Team Providers Care Stringing Machine Tender Name Role Phone Angie Alonzo MD Primary Care Provider [phone] Encounter Details Date Type Department Care Team (Late st Contact Info) Description 02/13/2023 Ancillary Procedure Radiology Library at [facility] [place] [phone] Angie Alonzo MD [address] [place] [id number] Social History Tobacco Use Types Packs/Day Years [...] Lower Extremity (02/13/2023 12:00 AM EDT) Narrative KRIS - 02/19/2023 3:10 PM EDT This exam is auto-finalizing. It's purpose is for storage only. Angie Alonzo MD IMG FILM LIBRARY ORD ERABLES [facility] [place] documented in this encounter Visit Diagnoses Not on filedocumented in this encounter Care Teams Stringing Machine Tender Relationship Specialty Start Date End Date Angie Alonzo MD [facility] [address] [place] [address] PCP - General Family Medicine 06/25/17 documented as of this encounter
--- OUTSIDE RECORDS SUMMARY | 2024-08-12 10:28 | XMS_ITS | Encounter Summary ---
Author Organization [facility] Address [facility] [place] [address] Care Team Providers Care Drier Belt Conveyor Name Role Phone Angie Alonzo MD Primary Care Provider [phone] Reason for Visit * Reason Comments Follow-up Encounter Details Date Type Department Care Team (Late st Contact Info) Description 03/05/2023 11:30 AM EDT Office Visit [place] [phone] Kalyan Damico MD Malignant neoplasm of upper-inner [...] 94.1 kg (207 lb 7.3 oz) 03/05/20 11:22 AM EDT with shoes Height 169.2 [...] concerns over a recurrence. Kalyan Damico MD pedigree tracer in Hematology-Oncology documented in this encounter Plan of Treatment Not on file documented as of this encounter Visit Diagnoses Diagnosis Malignant neoplasm of upper-inner quadrant of left breast in female, estrogen receptor positive documented in this encounter Care Teams Drier Belt Conveyor Relationship Specialty Start Date End Date Angie Alonzo MD [facility] [address] [place] [address] PCP - General Family Medicine 06/25/17 documented as of this encounter
--- OUTSIDE RECORDS SUMMARY | 2024-08-12 10:28 | XMS_ITS | Encounter Summary ---
Author Organization [facility] Address [facility] [place] [address] Care Team Providers Care Plate Molder Name Role Phone Angie Alonzo MD Primary Care Provider [phone] Reason for Visit * Reason Comments Follow-up Encounter Details Date Type Department Care Team (Late st Contact Info) Description 01/26/2020 2:00 PM EDT Office Visit [place] [phone] Kalyan Damico MD Malignant neoplasm of upper-inner [...] a telehealth visit. I will see her [id number] next in one year, and I will coordinate that appointment with Kasey Gillette and with her mammograms. She knows to contact me in the interim if she has any concerns over her breast exam or over the tamoxifen. I will ask her to take a total of five years of tamoxifen through August of 2022. Kalyan Damico MD office clerk routine in Hematology-Oncology documented in this encounter Plan of Treatment Not on file documented as of this encounter Visit Diagnoses Diagnosis Malignant neoplasm of upper-inner quadrant of left breast in female, estrogen receptor positive documented in this encounter Care Teams Plate Molder Relationship Specialty Start Date End Date Angie Alonzo MD [address] [place] [address] PCP - General Family Medicine 06/25/17 documented as of this encounter
--- OUTSIDE RECORDS SUMMARY | 2024-08-12 10:28 | XMS_ITS | Encounter Summary ---
Author Organization [facility] Address [facility] [place] [address] Care Team Providers Care Electroplater Name Role Phone Angie Alonzo MD Primary Care Provider [phone] Encounter Details Date Type Department Care Team (Late st Contact Info) Description 02/02/2021 9:30 AM EDT Office Visit Radiation Oncology at [address] [phone] Edel Guzman, FABRIC MACHINE OPERATOR [facility] [place] [address] Malignant neoplasm of upper-inner quadrant of left [...] this encounter Progress Notes * Edel Guzman, FABRIC MACHINE OPERATOR - 02/02/2021 9:30 AM EDTSummary: 75 year old female FUV for breast cancer, post radiation therapy 2017 [employer] RADIATION ONCOLOGY [place] [id number] Phone: RADIATION ONCOLOGY FOLLOW UP NOTE Date of visit: 02/02/21 Patient Abimbola Dumas 1945 PCP: Angie Alonzo MD Radiation oncologist: Dr. Bethany Merrill Medical Oncologist: Dr. Kalyan Damico (follows with her tamoxifen) Surgeon: Dr Farooq s/p PM, oncoplasty and sentinel node biopsy 07/04/17 Followed yearly by surgical ICT SALES REPRESENTATIVE and mammo Chief Complaint: scheduled FUV for breast cancer, post radiation therapy Time since completed RT: 09/02/2017 Current treatment: Med Onc follows with tamoxifen management. Surgery follows with Mammo Screening Cad and Yamil Bilateral; scheduled for December 2021 ?? HPI: 71 y/o f who completed xrt 2 mos ago (09/02/17) to L breast for breast ca, IDC, low gr, ER+IN+, Her2 neg, s/p lumpectomy & SNB, pT1b [...] ORAL) Take by mouth daily as needed. Axesp-3-SZU-EPA-Fish Oil (Fish Oil) 1,200 (144-216) mg Capsule [...] 40 mg by mouth daily. blood-glucose meter (AvogySTYLE) Kit 1 each by [facility]Non-Drug; Combo Route) route as needed for Other. [...] Visit from 02/02/2021 in Radiation Oncology at [facility] Weight 102.5 kg (226 lb) Height [...] no sx with breast. Edel Guzman MSN, FABRIC MACHINE OPERATOR, ICT SALES REPRESENTATIVE-C Nurse Practitioner Radiation Oncology documented in this encounter Plan of Treatment Not on file documented as of this encounter Visit Diagnoses Diagnosis Malignant neoplasm of upper-inner quadrant of left breast in female, estrogen receptor positive documented in this encounter Care Teams Electroplater Relationship Specialty Start Date End Date Angie Alonzo MD [address] [place] [address] PCP - General Family Medicine 06/25/17 documented as of this encounter
--- OUTSIDE RECORDS SUMMARY | 2024-08-12 10:28 | XMS_ITS | Encounter Summary ---
Author Organization [facility] Address [facility] [place] [address] Care Team Providers Care Etiquette Teacher Name Role Phone Angie Alonzo MD Primary Care Provider [phone] Encounter Details Date Type Department Care Team (Late st Contact Info) Description 03/21/2023 Orders Only [place] [address] Crystal Hess MD [facility] [place] [address] Right foot pain Social History Tobacco Use [...] questions please contact the health home care administrator that requested your imaging first. ? Electronically signed by: Zuleyka Chavez MD, [facility] ([phone]), at 03/27/2023 10:27 AM Narrative 03/27/2023 10:27 [...] have questions please contactthe health home care administrator that requested your imaging first. Crystal Hess MD IMG DX ORDERABLES documented in this encounter Visit Diagnoses Diagnosis Right foot pain Pain in limb Right foot pain Pain in limb documented in this encounter Care Teams Etiquette Teacher Relationship Specialty Start Date End Date Angie Alonzo MD [facility] [address] [facility] [address] [place] [address] PCP - General Family Medicine 06/25/17 documented as of this encounter
--- OUTSIDE RECORDS SUMMARY | 2024-08-12 10:28 | XMS_ITS | Encounter Summary ---
Author Organization [facility] Address [facility] [place] [address] Care Team Providers Care Chinese Teacher Name Role Phone Angie Alonzo MD Primary Care Provider [phone] Reason for Visit * Reason Onset Date Comments Medication Refill 09/09/2020 Encounter Details Date Type Department Care Team (Late st Contact Info) Description 09/09/2020 Refill Hematology and Oncology at [facility] [place] [phone] Belgica Gerber RN Malignant neoplasm of upper-inner [...] a refill of her tamoxifen sent to [facility] in [facility]. Per review of medical record- started [...] positive documented in this encounter Care Teams Chinese Teacher Relationship Specialty Start Date End Date Angie Alonzo MD [address] [place] [address] PCP - General Family Medicine 06/25/17 documented as of this encounter
--- OUTSIDE RECORDS SUMMARY | 2024-08-12 10:28 | XMS_ITS | Encounter Summary ---
Author Organization [facility] Address [facility] [place] [address] Care Team Providers Care Director Of Event Marketing Name Role Phone Angie Alonzo MD Primary Care Provider Encounter Details Date Type Department Care Team (Late st Contact Info) Description 01/28/2023 Ancillary Procedure Radiology Library at [facility] [place] [phone] Angie Alonzo MD [address] [place] [address] [facility] [address] [place], [place] [id number] Social History Tobacco Use Types Packs/Day Years [...] DX Foot (01/28/2023 12:00 AM EDT) Narrative KRIS - 02/04/2023 9:05 PM EDT This exam is auto-finalizing. It's purpose is for storage only. Angie Alonzo MD IMG FILM LIBRARY ORD ERABLES [place] [place] documented in this encounter Visit Diagnoses Not on filedocumented in this encounter Care Teams Director Of Event Marketing Relationship Specialty Start Date End Date Angie Alonzo MD [address] [facility] 1 [place] [address] PCP - General Family Medicine 06/25/17 documented as of this encounter
--- OUTSIDE RECORDS SUMMARY | 2024-08-12 10:28 | XMS_ITS | Encounter Summary ---
Author Organization [facility] [place] [address] Care Team Providers Care Auto Specialty Services Manager Name Role Phone Angie Alonzo MD Primary Care Provider [phone] Reason for Visit * Reason Comments Follow-up Encounter Details Date Type Department Care Team (Late st Contact Info) Description 01/26/2020 1:00 PM EDT Office [place] [address] Kasey Delgado APRN [facility] [place] [address] Encounter for follow-up surveillance of breast cancer; [...] history: A screening mammogram on 11/09/2016 at [facility] noted a new 0.9 mm mass in the left, upper inner quadrant. US showed a subtle 6 mm hypoechoic mass with some internal vascularity. She underwent biopsy on 12/04/2016 which came back as benign, but a second read here at [facility] was not concordant, so she was sent to [facility] and had repeat biopsy which did show a low grade, ER/HI positive, HER2 negative breast cancer. One sentinel [...] situation. Results: Imaging performed (bilateral mammogram) at [facility] today shows no evidence of malignancy, BIRADS [...] symptoms. Kasey Delgado APRN Surgical Oncology P [phone] F [phone] [facility] documented in this encounter Plan [...] have questions please contact the health healthcare advisory services manager that requested your imaging first. ? Electronically signed by: Alona Nielsen MD, [facility] ([phone]), at 01/24/2021 8:14 AM Kasey Delgado APRN [...] mammogram documented in this encounter Care Teams Auto Specialty Services Manager Relationship Specialty Start Date End Date Angie Alonzo MD [facility] [address] [facility] 1 [place] [address] PCP - General Family Medicine 06/25/17 documented as of this encounter
--- OUTSIDE RECORDS SUMMARY | 2024-08-12 10:28 | XMS_ITS | Encounter Summary ---
Author Organization [facility] Address [facility] [place] [address] Care Team Providers Care Remelt Operator Name Role Phone Angie Alonzo MD Primary Care Provider [phone] Encounter Details Date Type Department Care Team (Late st Contact Info) Description 02/20/2022 11:00 AM EDT Office Visit Hematology and Oncology at [facility] [place] [address] Kalyan Damico MD Malignant neoplasm of upper-inner [...] of 2022. She knows to contact me or Kasey in the interim if shehas any concerns over her breast exam or over the tamoxifen. Kalyan Damico MD salon leader in Hematology-Oncology documented in this encounter Plan of Treatment Not on file documented as of this encounter Visit Diagnoses Diagnosis Malignant neoplasm of upper-inner quadrant of left breast in female, estrogen receptor positive documented in this encounter Care Teams Remelt Operator Relationship Specialty Start Date End Date Angie Alonzo MD [address] [place] [address] PCP - General Family Medicine 06/25/17 documented as of this encounter
--- OUTSIDE RECORDS SUMMARY | 2024-08-12 10:28 | XMS_ITS | Encounter Summary ---
Author Organization [facility] Address [facility] [place] [address] Care Team Providers Care Business Center Attendant Name Role Phone Angie Alonzo MD Primary Care Provider [phone] Encounter Details Date Type Department Care Team (Latest Contact Info) Description 07/28/2020 3:30 PM EST TH Visit (TeleHealth) Hematology and Oncology at [facility] [place] [address] Kalyan Damico MD Malignant neoplasm of upper-inner [...] 07/28/2020 3:30 PM EST Heme-Onc Staff Abimbola Dumas is a 74 y.o. female [...] with Kasey Delgado and with her next mammograms. She [...] visit was 10 minutes. Kalyan Damico MD process trainer in Hematology-Oncology documented in this encounter Plan of Treatment Not on file documented as of this encounter Results * Hepatic Function Panel (01/24/2021 7:25 AM EDT) Protein, Total 6.7 6.1 - 8.0 gm/dL [facility] Albumin 4.0 3.2 - 5.2 gm/dL [facility] Aspartate Aminotransferase 20 0 - 30 unit/L [facility] Alanine Aminotransferase 19 0 - 30 unit/L [facility] Alkaline Phosphatase 53 35 - 105 unit/L [facility] Bilirubin, Total 0.4 0.2 - 1.3 mg/dL [facility] Bilirubin, Direct 0.1 0.0 - 0.3 mg/dL [facility] Blood 01/24/2021 7:25 AM EDT 01/24/2021 7:41 AM EDT Narrative Resulting Agency Comment Spec In Lab Kalyan Damico MD CHEMISTRY ORDERABLES [facility] [place] [address] documented in this encounter Visit Diagnoses Diagnosis Malignant neoplasm of upper-inner quadrant of left breast in female, estrogen receptor positive documented in this encounter Care Teams Business Center Attendant Relationship Specialty Start Date End Date Angie Alonzo MD [facility] [address] [place] [address] PCP - General Family Medicine 06/25/17 documented as of this encounter
--- OUTSIDE RECORDS SUMMARY | 2024-08-12 10:28 | XMS_ITS | Encounter Summary ---
Author Organization [facility] Address [facility] [place] [address] Care Team Providers Care Spray Crew Name Role Phone Angie Alonzo MD Primary Care Provider [phone] Reason for Visit * Reason Comments Medication Refill Encounter Details Date Type Department Care Team (Late st Contact Info) Description 09/28/2019 Refill Hematology and Oncology at [facility] [place] [address] Kalyan Damico MD Malignant neoplasm of upper-inner [...] 09/28/2019 8:15 AM EDT Received request via IP[facility] for refill of tamoxifen. Per review of [...] positive documented in this encounter Care Teams Spray Crew Relationship Specialty Start Date End Date Angie Alonzo MD [facility] [address] [place] [address] PCP - General Family Medicine 06/25/17 documented as of this encounter
--- OUTSIDE RECORDS SUMMARY | 2024-08-12 10:28 | XMS_ITS | Encounter Summary ---
Author Organization [facility] Address [facility] [place] [address] Care Team Providers Care Threshing Machine Operator Name Role Phone Angie Alonzo MD Primary Care Provider [phone] Encounter Details Date Type Department Care Team (Latest Contact Info) Description 07/28/2021 11:30 AM EST TH Visit (TeleHealth) Hematology and Oncology at [facility] [place] [address] Kalyan Damico MD Malignant neoplasm of upper-inner [...] 11:30 AM EST Heme-Onc Staff ?? Abimbola Evie Dumas??is a 75 y.o.??female??with Stage I breast cancer, [...] was 11 minutes. ?? Kalyan Damico MD taxation inspector in Hematology-Oncology documented in this encounter Plan of Treatment Not on file documented as of this encounter Results * Hepatic Function Panel (02/20/2022 8:29 AM EDT) Protein, Total 7.0 6.1 - 8.0 g/dL [facility] Albumin 4.3 3.2 - 5.2 g/dL [facility] Aspartate Aminotransferase 19 0 - 30 unit/L [facility] Alanine Aminotransferase 20 0 - 30 unit/L [facility] Alkaline Phosphatase 65 35 - 105 unit/L [facility] Bilirubin, Total 0.4 0.2 - 1.3 mg/dL [facility] Bilirubin, Direct 0.1 0.0 - 0.3 mg/dL [facility] Blood 02/20/2022 8:29 AM EDT 02/20/2022 8:37 AM EDT Narrative Resulting Agency Comment Spec In Lab Kalyan Damico MD CHEMISTRY ORDERABLES [facility] [place] [place] [address] documented in this encounter Visit Diagnoses Diagnosis Malignant neoplasm of upper-inner quadrant of left breast in female, estrogen receptor positive documented in this encounter Care Teams Threshing Machine Operator Relationship Specialty Start Date End Date Angie Alonzo MD [facility] [address] [place] [address] PCP - General Family Medicine 06/25/17 documented as of this encounter
--- OUTSIDE RECORDS SUMMARY | 2024-08-12 10:29 | XMS_ITS | Encounter Summary ---
Author Organization [facility] Address [facility] [place] [address] Care Team Providers Care Budget And Policy Analyst Name Role Phone Angie Alonzo MD Primary Care Provider [phone] Encounter Details Date Type Department Care Team (Late st Contact Info) Description 03/13/2019 Notes Only Cardiac Surgery [facility] [place] [phone] Sabrina Sofia PA Social History Tobacco Use Types Packs/Day Years [...] on filedocumented in this encounter Care Teams Budget And Policy Analyst Relationship Specialty Start Date End Date Angie Alonzo MD [facility] [address] [place] [address] PCP - General Family Medicine 06/25/17 documented as of this encounter
--- OUTSIDE RECORDS SUMMARY | 2024-08-12 10:29 | XMS_ITS | Encounter Summary ---
Author Organization [facility] Address [facility] [place] [address] Care Team Providers Care Applications Engineer Manufacturing Name Role Phone Angie Alonzo MD Primary Care Provider [phone] Reason for Referral * Consultation (Routine) - Specialty Diagnoses / Procedures Referred By Contact Referred To Contact Cardiac Rehabilitation Diagnoses S/P CABG (coronary artery bypass graft) Ryan Lynch MD [facility] [place] [address] Cardiac Rehab, [address] [place] [address] Referral ID Status Reason Start Date Expiration Date V isits Requested Visits Authorized [id number] Consult, Test & Treat 03/09/2019 09/05/2019 34 [...] Expiration Date Visits Re quested Visits Authorized [id number] 1 1 Encounter Details Date Type Department Care Team (Latest Contact Info) Description 03/05/2019 6:12 AM EDT - 03/09/2019 3:15 PM EDT Hospital Encounter Intermediate [place] [address] Ryan Lynch MD S/P CABG (coronary artery [...] Patient Age: 73 y.o. Birthdate: 1945 Language: Greenlandic Race: White Ethnicity: Not nor Admit Date: [...] with CXR, EKG. Inpatient Provider Contact Information: [facility] Section of Cardiac Surgery [facility] [phone] FAX [phone] Discharge Diagnoses (Hospital Problems) Primary Diagnoses: CAD [...] 8.78) performed by Ashley Farooq MD at [facility] MAIN OR ??? PRO BX/REMV, LYMPH NODE, DEEP AXILL Left 07/04/2017 BIOPSY OR EXCISION OF LYMPH NODE(S), OPEN, DEEP AXILLARY NODE(S) (WRVU 6.43) performed by Ashley Farooq MD at [facility] OR ??? PRO CABG, ARTERIAL, SINGLE N/A 03/05/2019 @CABG, USING ARTERIAL GRAFT;SINGLE ARTERIAL GRAFT (WRVU 33.75) performed by Ryan Lynch MD at [facility] OR ??? PRO CABG, ARTERY-VEIN, THREE N/A 03/05/2019 @CABG; 3 VENOUS GRAFTS & ARTERIAL GRAFT (WRVU 10.49) performed by Ryan Lynch MD at [facility] OR ??? PRO ENDOSCOPY W/VIDEO-ASST VEIN HARVEST, CABG N/A 03/05/2019 ENDOSCOPIC HARVEST VEIN(S) FOR CABG (WRVU 0.31) performed by Ryan Lynch MD at [facility] OR ??? PRO INTRAOP SENTINEL LYMPH ID W/DYE INJECTION Left 07/04/2017 INTRAOPERATIVE ID (MAPPING) SENTINEL LYMPH NODE,INCLUDES INJECTION (WRVU 2.5) performed by Ashley Farooq MD at [facility] OR ??? PRO MASTECTOMY, PARTIAL Left 07/04/2017 MASTECTOMY PARTIAL (WRVU 10.13) performed by Ashley Farooq MD at [facility] OR Prior To Admission Medications Medications Prior [...] Lynch and/or the Cardiac Surgery Physician Manager Mortgage Team may be reached at . Weight: [...] Dr. Ryan Casas. You may use a Elizabeth Track or treadmill but avoid any pulling [...] friends, go to a movie, go to amish, etc. Heavy activities: No hunting, skiing, jogging, snow shoveling, snowmobiling, lawn mowing, swimming,golf or tennis until after your return appointment with the surgeon. Do not ride motorcycles, AT[employer]able'stractors or horses. Avoid the use of a [...] should resume a low fat, low cholesterol, [place] Heart Association Diet/Diabetic diet. Driving: No driving [...] the outpatient Phase 2 Cardiac Rehabilitation at [facility] . The patient agrees to a referral to this program. The referral will be sent at discharge and the patient should be contacted by the Program within 1- 2 weeks from discharge. ?? Of note, this patient will be staying with her son in [place], [place] for a 2-3 weeks at discharge before returning to home. Future Appointments and Orders Future Appointments and Orders Future Appointments Provider Department Dept Phone 04/17/2019 9:00 AM Nimco Mohan MD Endocrinology at [facility] Arrive at: Foot Drill Operator Area [phone] 04/17/2019 9:00 AM ULTRASOUND, ENDO/RHEUM Endocrinology at [facility] Arrive at: Foot Drill Operator Area [phone] Future Orders Complete By Expires XR Chest PA & Lateral (Generic) [[id number] Custom] 04/08/2019 (Approximate) 10/08/2019 Process Instructions: Scheduling Instructions: Questions: Where will study be performed?: [facility] Radiology Portable exam?: Reason for exam and clinical history: s/p CABGx4 Other pertinent information: Stat read required?: Date of injury if applicable: Requested Time: EKG 12 Lead [70501 CPT(R)] As directed Process Instructions: Scheduling Instructions: Questions: Which location will this be performed?: [place] Is a rhythm strip needed?: No Referral to Cardiac Rehab [SXT014 Custom] As directed Process Instructions: If no progress note charted, please enter Clinical details in comments. Scheduling Instructions: Questions: My question or request is: s/p CABG. Cardiac rehab at [facility] Referral to Home Health - at DISCHARGE [DII4883 CPT(R)] As directed Process Instructions: Scheduling Instructions: Comments: DOCUMENTATION FOR VNA SERVICES (INCLUDING THOSE PATIENTS WITH MEDICARE COVERAGE REQUIRING HOME VNA SERVICES AND/OR HOSPICE SERVICES) PATIENT'S LOCATION: Abimbola Dumas [facility] [address] [facility] [address] (home) No relevant phone numbers on file. [address] [place], [place] Powder Carrier's Name: patient and son. In discussion with the attending physician, it is certified that this patient is under their care and that they, or a Nurse Practitioner, or Physician Manager Mortgage who is working directly with them, hada [...] for services as follows: HOME HEALTH AGENCY: [facility]. PHONE: [phone] FAX: [phone] RN orders: Cardiopulmonary assessment, incisional assessment, assess [...] issues please call the Cardiac SurgeryOffice at [phone] FOR MEDICARE ONLY: (please delete this section [...] noted. Questions: Agency name and contact information: [facility] Patient location post discharge: home What services are requested: Registered Nurse Physical Therapy Occupational Therapy Start date: Responsible MD post discharge contact info: pcp Arrangements for VNA/home care: As above. VN RN OR PCP TO PLEASE REMOVE CHEST TUBE SUTURES ON OR AFTER (03/15/19) Signed: DUDLEY Woodard [facility] Section of Cardiac Surgery [facility] [phone] FAX [phone] Date: 03/09/2019 CC: MD Sherita Garcia Anil K, MD [address] [place] [phone] documented in this encounter Discharge Instructions * [...] Lynch and/or the Cardiac Surgery Physician Manager Mortgage Team may be reached at . Weight: [...] Dr. Ryan Casas. You may use a Elizabeth Track or treadmill but avoid any pulling [...] friends, go to a movie, go to amish, etc. Heavy activities: No hunting, skiing, jogging, [...] should resume a low fat, low cholesterol, [place] Heart [employer] Diet/Diabetic diet. Driving: No driving [...] the outpatient Phase 2 Cardiac Rehabilitation at [facility] . The patient agrees to a referral to this program. The referral will be sent at discharge and the patient should be contacted by the Program within 1- 2 weeks from discharge. ?? Of note, this patient will be staying with her son in [place], [place] for a 2-3 weeks at discharge [...] (FREESTYLE) Kit 1 each by [facility] [...] 3:15 PM EDT D/c summary faxed to [facility] Pt went home with family. * Bethany Servin RN - 03/09/2019 2:26 PM EDT The patient/medical collections representative has been provided a list of Home Health Agencies/DME vendors which servetheir preferred geographic area. A letter describing our affiliations was reviewed with them and they were educated about their right to choose where referrals are placed. Patient requests referral to [facility] PHONE: [phone] FAX: [phone] Expected date of discharge: 03/09/2019 Referral routed to the Supervisor Tan Room for matching with agency/vendor and to provide [...] plan as stated. Time IN / OUT: 7642-2797 Total Evaluation Minutes, Physical Therapy: 32(TEF, LILY) [...] of left breast in female, estrogen receptor awlantij53/28/2017 Reason for Nutrition Intervention: Diagnosis Diet Order: [facility] Appetite: Improving appetite per patient Food allergies: [...] consulted in the interim. SELENE Aguilar Pager #[phone] * William Lexii, MIDWIFE - 03/08/2019 10:15 AM EDT Cardiac Surgery Progress Note: ID: [id number] 73 yo F 3 Days Post-Op cabg [...] DW Attending surgeon on rounds Dr. Renee NIVEES, LINDSEY Cardiac surgery p.[phone] * Santos Rao MD - 03/07/2019 7:57 AM EDT Cardiac Surgery Progress Note: ID: [id number] 73 yo F pod 1 sp cabg [...] Gas) No results found for: PHART, PO2ART, IRD3MAC Assessment/Plan: 73 y.o. female 2 Days Post-Op s/p cabg x 4, pathway. D/c carl D/c TPW Cont metop/lasix Given K+ repletion POD3 labs/CXR ordered for tomorrow Neuro:tylenol, oxy prn CV:metop 12.5'', lipitor 40' Resp:nc, wean as able, db,is GI:adat, protonix :carl d/c today Renal:lasix 20iv'', k prn ID:no issues Heme:asa Endo:ssi Dispo:transfer DW Attending surgeon on rounds Dr. Renee Rao MD Cardiac surgery p.[phone] * Jose Levi PA - 03/06/2019 9:01 AM EDT Cardiac Surgery Progress Note: ID: [id number] 73 yo F pod 1 sp cabg [...] documented in this encounter H&P Notes * Ryna Lynch MD - 03/05/2019 7:20 AM EDT [...] 8.78) performed by Ashley Farooq MD at [facility] OR ??? PRO BX/REMV, LYMPH NODE, DEEP AXILL Left 07/04/2017 ?? BIOPSY OR EXCISION OF LYMPH NODE(S), OPEN, DEEP AXILLARY NODE(S) (WRVU 6.43) performed by Ashley Farooq MD at [facility] OR ??? PRO INTRAOP SENTINEL LYMPH ID W/DYE INJECTION Left 07/04/2017 ?? INTRAOPERATIVE ID (MAPPING) SENTINEL LYMPH NODE,INCLUDES INJECTION (WRVU 2.5) performed by Ashley Farooq MD at [facility] OR ??? PRO MASTECTOMY, PARTIAL Left 07/04/2017 ?? MASTECTOMY PARTIAL (WRVU 10.13) performed by Ashley Farooq MD at [facility] OR ? Family History: Family??History Family [...] Gets together: Not on file ? Attends orthodox service: Not on file ? Active member [...] 8.78) performed by Ashley Farooq MD at [facility] MAIN OR ??? PRO BX/REMV, LYMPH NODE, DEEP AXILL Left 07/04/2017 ?? BIOPSY OR EXCISION OF LYMPH NODE(S), OPEN, DEEP AXILLARY NODE(S) (WRVU 6.43) performed by Ashley Farooq MD at [facility] OR ??? PRO INTRAOP SENTINEL LYMPH ID W/DYE INJECTION Left 07/04/2017 ?? INTRAOPERATIVE ID (MAPPING) SENTINEL LYMPH NODE,INCLUDES INJECTION (WRVU 2.5) performed by Ashley Farooq MD at [facility] OR ??? PRO MASTECTOMY, PARTIAL Left 07/04/2017 ?? MASTECTOMY PARTIAL (WRVU 10.13) performed by Ashley Farooq MD at [facility] OR ? Family History: Family??History Family [...] Gets together: Not on file ? Attends orthodox service: Not on file ? Active member [...] Harris RN - 03/09/2019 10:21 AM EDT [facility] CARDIAC REH[facility]ILITATION Abimbola Dumas was seen today regarding participation in the outpatient Phase 2 Cardiac Rehabilitation at [facility] . The patient agrees to a referral to this program. The referral will be sent at discharge and the patient should be contacted by the Program within 1- 2 weeks from discharge. Of note, this patient will be staying with her son in [place], [place] for a 2-3 weeks at discharge [...] 8.78) performed by Ashley Farooq MD at [facility] OR ??? PRO BX/REMV, LYMPH NODE, DEEP AXILL Left 07/04/2017 BIOPSY OR EXCISION OF LYMPH NODE(S), OPEN, DEEP AXILLARY NODE(S) (WRVU 6.43) performed by Ashley Farooq MD at [facility] OR ??? PRO CABG, ARTERIAL, SINGLE N/A 03/05/2019 @CABG, USING ARTERIAL GRAFT;SINGLE ARTERIAL GRAFT (WRVU 33.75) performed by Ryan Lynch MD at [facility] OR ??? PRO CABG, ARTERY-VEIN, THREE N/A 03/05/2019 @CABG; 3 VENOUS GRAFTS & ARTERIAL GRAFT (WRVU 10.49) performed by Ryan Lynch MD at [facility] OR ??? PRO ENDOSCOPY W/VIDEO-ASST VEIN HARVEST, CABG N/A 03/05/2019 ENDOSCOPIC HARVEST VEIN(S) FOR CABG (WRVU 0.31) performed by Ryan Lynch MD at [facility] OR ??? PRO INTRAOP SENTINEL LYMPH ID W/DYE INJECTION Left 07/04/2017 INTRAOPERATIVE ID (MAPPING) SENTINEL LYMPH NODE,INCLUDES INJECTION (WRVU 2.5) performed by Ashley Farooq MD at [facility] MAIN OR ??? PRO MASTECTOMY, PARTIAL Left 07/04/2017 MASTECTOMY PARTIAL (WRVU 10.13) performed by Ashley Farooq MD at [facility] MAIN OR Social History: Pt lives [...] Evaluation Minutes, Physical Therapy: 25(eval) Time IN/OUT: 3712-5325 BUDDY BARR, PT Pager: [phone] Physical Therapy Inpatient Rehabilitation Department * Initial [...] Insurance: AARP Prescription Coverage: yes Preferred Pharmacy: [place], [place] Primary Care Provider: Angie Alonzo MD [phone] Patient/Caregiver Goals of Treatment: to return home [...] of care planning. Savage Lobo RN Pager: [phone] * Care Management - Savage Lobo RN - 03/06/2019 2:14 PM EDT The patient/medical collections representative has been provided a list of Home Health Agencies/DME vendors which servetheir preferred geographic area. A letter describing our affiliations was reviewed with them and they were educated about their right to choose where referrals are placed. Patient requests referral to :: [facility] [employer]. PHONE: [phone] FAX: [phone] Expected date of discharge: next 2-3 days Referral routed to the Supervisor Tan Room for matching with agency/vendor and to provide any required information. * Op Note - Ryan Lynch MD - 03/05/2019 1:56 PM EDT 03/05/2019 Abimbola Dumas 1945 [id number] Preoperative Diagnosis: Coronary artery disease Stable Angina Postoperative Diagnosis: Coronary artery diseaseStable Angina Procedure: CABG times 4: SAM to LAD, SVG to om, svg to diag, svg to pda. Endoscopic vein harvest Surgeon: Ryan Lynch M.D. Manager Mortgage: Giancarlo Anesthesia: General endotracheal anesthesia Drains: Two [...] the medial aspect of the knee. The RxAdvanceView XB7 system was used to dissect out [...] Operative Note Patient Name: Abimbola Dumas : [id number] MR#: [id number] Case Date: 03/05/2019 Surgeon: Surgeon(s) and Role: * Ryan Lynch MD - Primary * Job Ferraro PA - Physician Manager Mortgage Preoperative diagnosis: cad Postoperative diagnosis: cad Procedure(s) [...] 9 8:32 AM EDT Endoscopy W/Video-Asst Vein [place], Cabg ([id number]) 03/05/2019 7:29 AM EDT Coronary artery disease of kiowa tribe heart with stable angina pectoris, unspecified vessel or lesion type Cabg, Artery-Vein, Three ([id number]) 03/05/2019 7:29 AM EDT Coronary artery disease of kiowa tribe heart with stable angina pectoris, unspecified vessel or lesion type Cabg, Arterial, Single ([id number]) 03/05/2019 7:29 AM EDT Coronary artery disease of kiowa tribe heart with stable angina pectoris, unspecified vessel [...] number below. Electronically signed by: ERIN Anaya [facility]([phone]), at 04/07/2019 3:39 PM Ryan Lynch MD IMG DX ORDERABLES * POCT Glucose (03/09/2019 11:31 AM EDT) Glucose, POC 148 65 - 199 mg/dL [facility] Comment: Supplemental ranges: <140 mg/dL before meals <180 mg/dL all other times of the day Blood specimen (specimen) 03/09/2019 11:31 AM EDT 03/09/2019 11:31 AM EDT Ryan Lynch MD POINT OF CARE TEST ORDERABLES Performing Organization Address [facility] Co de Phone Number [facility] [place] [address] * Potassium (03/09/2019 7:49 AM EDT) Potassium 4.0 3.5 - 5.0 mmol/L [facility] Comment: Please note: ??Patients [...] MD CHEMISTRY ORDERABLE S Performing Organization Address [facility] Co de Phone Number [facility] [place] [address] * POCT Glucose (03/09/2019 7:32 AM EDT) Glucose, POC 124 65 - 199 mg/dL [facility] Comment: Supplemental ranges: <140 mg/dL before meals <180 mg/dL all other times of the day Blood specimen (specimen) 03/09/2019 7:32 AM EDT 03/09/2019 7:32 AM EDT Ryan Lynch MD POINT OF CARE TEST ORDERABLES Performing Organization Address [facility]/ZIP Co de Phone Number [facility] [place] [address] * POCT Glucose (03/08/2019 8:13 PM EDT) Glucose, POC 175 65 - 199 mg/dL [facility] Comment: Supplemental ranges: <140 mg/dL before meals <180 mg/dL all other times of the day Blood specimen (specimen) 03/08/2019 8:13 PM EDT 03/08/2019 8:13 PM EDT Ryan Lynch MD POINT OF CARE TEST ORDERABLES Performing Organization Address [facility] de Phone Number [facility] [place] [address] * POCT Glucose (03/08/2019 4:37 PM EDT) Glucose, POC 115 65 - 199 mg/dL [facility] Comment: Supplemental ranges: <140 mg/dL before meals <180 mg/dL all other times of the day Blood specimen (specimen) 03/08/2019 4:37 PM EDT 03/08/2019 4:37 PM EDT Ryan Lynch MD POINT OF CARE TEST ORDERABLES Performing Organization Address [facility] de Phone Number [facility] [place] [address] * XR Chest PA & Lateral (Generic) [...] the number below. Electronically signed by: ERIN Mata [facility]([phone]), at 03/08/2019 3:03 PM Ryan Lynch MD IMG DX ORDERABLES * POCT Glucose (03/08/2019 11:16 AM EDT) Glucose, POC 170 65 - 199 mg/dL [facility] Comment: Supplemental ranges: <140 mg/dL before meals <180 mg/dL all other times of the day Blood specimen (specimen) 03/08/2019 11:16 AM EDT 03/08/2019 11:16 AM EDT Ryan Lynch MD POINT OF CARE TEST ORDERABLES Performing Organization Address City/[facility] Co de Phone Number [facility] [place] [address] * POCT Glucose (03/08/2019 7:28 AM EDT) Glucose, POC 137 65 - 199 mg/dL [facility] Comment: Supplemental ranges: <140 mg/dL before meals <180 mg/dL all other times of the day Blood specimen (specimen) 03/08/2019 7:28 AM EDT 03/08/2019 7:28 AM EDT Ryan Lynch MD POINT OF CARE TEST ORDERABLES Performing Organization Address City/[facility] Co de Phone Number [facility] [place] [address] * (ABNORMAL) Differential, Automated (03/08/2019 2:45 AM EDT) Neutrophil % 70.8 % [facility] Neutrophil Absolute 8.88(H) 1.70 - 6.10 x10(3)/mc L [facility] Lymph % 14.5 % [facility] Lymphocytes Abs 1.8 0.9 - 3.2 x10(3)/mc L [facility] Monocyte % 10.5 % [facility] Monocyte Abs 1.3(H) 0.3 - 0.9 x10(3)/mc L [facility] Eos % 3.0 % [facility] Eosinophils Abs 0.4 0.0 - 0.4 x10(3)/ L [facility] Basophil % 0.6 % [facility] Baso Absolute 0.1 0.0 - 0.1 x10(3)/[facility] Immature Gran % 0.60 % [facility] Comment: Immature granulocytes(IG's)percentage and absolute count will include metamyelocytes, myelocytes, and promyelocytes. Blood smears from CBCs yielding IG's will be scanned manually for concordance. If this scan disagrees with the automated IG or if promyelocytes are noted, a manual differential will be performed. Immature Gran Absolute 0.07(H) 0.00 - 0.04 x10(3)/[facility] Blood specimen (specimen) 03/08/2019 2:45 AM EDT 03/08/2019 2:51 AM EDT Narrative Resulting Agency Comment Spec In Lab Jose BUCKNER HEMATOLOGY ORDERABLE S [facility] [place] [address] * (ABNORMAL) Hemogram (03/08/2019 2:45 AM EDT) White Blood Cell 12.6(H) 4.0 - 9.5 x10(3)/[facility] Red Blood Cell 3.18(L) 4.00 - 5.21 x10(6)/ L [facility] Hemoglobin 9.9(L) 11.7 - 15.5 gm/dL [facility] Hematocrit 29.3(L) 35.7 - 45.8 % [facility] Mean Cell Volume 92.1 82.6 - 94.4 fL [facility] Mean Cell Hemoglobin 31.1 27.1 - 32.0 pg [facility] Mean Cell Hemoglobin Concentration 33.8 31.7 - 35.0 gm/dL [facility] Platelet 203 145 - 357 x10(3)/mc L [facility] RDW Standard Deviation 48.7(H) 37.0 - 46.0 fL [facility] RDW coefficient of variation 14.2(H) 11.5 - 14.1 % [facility] Mean Platelet Volume 8.8 7.6 - 12.9 fL [facility] NRBC% auto 0.0 % [facility] NRBC Absolute 0.000 0.000 - 0.000 x10(3)/mc L [facility] Blood specimen (specimen) 03/08/2019 2:45 AM EDT 03/08/2019 2:51 AM EDT Narrative Resulting Agency Comment Spec In Lab Jose BUCKNER HEMATOLOGY ORDERABLE S Performing Organization Address City/State/[facility] Co de Phone Number [facility] [place] [address] * (ABNORMAL) Basic Metabolic Panel (non-fasting) (03/08/2019 2:45 AM EDT) Glucose 141 65 - 199 mg/dL [facility] Comment:Diabetes: >=200 mg/d L plus symptoms Blood Urea Nitrogen 24(H) 8 - 18 mg/dL [facility] Creatinine 0.56(L) 0.70 - 1.20 mg/dL [facility] Sodium 137 135 - 145 mmol/L [facility] Potassium 3.7 3.5 - 5.0 mmol/L [facility] Comment: Please note: ??Patients with WBC >100,000 may have falsely elevated Potassium levels. ??For accurate Potassium quantification in these patients send serum separator tube (gold top) for subsequent determinations. ??Contact the Clinical Chemistry Laboratory if there are any questions. Chloride 102 98 - 107 mmol/L [facility] Carbon Dioxide 25 22 - 31 mmol/L [facility] Anion Gap 10 5 - 15 mmol/L [facility] Calcium 7.8(L) 8.5 - 10.5 mg/dL [facility] Est Glomerular Filtration Rate 91 >=60 mL/min/1. 73 m?? [facility] Comment: The eGFR was calculated using the CKD-EPI equation. As with all creatinine based estimates of kidney function, eGFR values calculated with the CKD-EPI equation are not accurate in patients with acute kidney failure, extremes of body mass or the acutely ill. http://[employer]/[facility] eGFR 106 >=60 mL/min/1. 73 m?? [facility] Comment: The eGFR was calculated using the CKD-EPI equation. As with all creatinine based estimates of kidney function, eGFR values calculated with the CKD-EPI equation are not accurate in patients with acute kidney failure, extremes of body mass or the acutely ill. http://[employer]/[facility] Blood specimen (specimen) 03/08/2019 2:45 AM EDT 03/08/2019 2:51 AM EDT Narrative Resulting Agency Comment Spec In Lab Ryan Lynch MD CHEMISTRY ORDERABLE S Performing Organization Address City/[facility]/ZIP Co de Phone Number [facility] [place] [address] * (ABNORMAL) POCT Glucose (03/07/2019 6:06 PM EDT) Glucose, POC 214(H) 65 - 199 mg/dL [facility] Comment: Supplemental ranges: <140 mg/dL before meals <180 mg/dL all other times of the day Blood specimen (specimen) 03/07/2019 6:06 PM EDT 03/07/2019 6:06 PM EDT Ryan Lynch MD POINT OF CARE TEST ORDERABLES [facility] [place] [address] * POCT Glucose (03/07/2019 11:53 AM EDT) Glucose, POC 155 65 - 199 mg/dL [facility] Comment: Supplemental ranges: <140 mg/dL before meals <180 mg/dL all other times of the day Blood specimen (specimen) 03/07/2019 11:53 AM EDT 03/07/2019 11:53 AM EDT Ryan Lynch MD POINT OF CARE TEST ORDERABLES Performing Organization Address City/[facility]/ZIP Co de Phone Number [facility] [place] [address] * POCT Glucose (03/07/2019 6:01 AM EDT) Glucose, POC 154 65 - 199 mg/dL [facility] Comment: Supplemental ranges: <140 mg/dL before meals <180 mg/dL all other times of the day Blood specimen (specimen) 03/07/2019 6:01 AM EDT 03/07/2019 6:01 AM EDT Ryan Lynch MD POINT OF CARE TEST ORDERABLES Performing Organization Address City/[facility]/ZIP Co de Phone Number [facility] [place] [address] * Lavender Tube HOLD (03/07/2019 6:00 AM EDT) Lavender Hold Sample in lab. [facility] Blood specimen (specimen) Venous Draw / Unknown 03/07/2019 6:00 AM EDT 03/07/2019 6:11 AM EDT Jose BUCKNER HEMATOLOGY ORDERABLE S Performing Organization Address City/[facility]/ZIP Co de Phone Number [facility] [place] [address] * Potassium (03/07/2019 6:00 AM EDT) Potassium 3.7 3.5 - 5.0 mmol/L [facility] Comment: Please note: ??Patients [...] MD CHEMISTRY ORDERABLE S Performing Organization Address City/[facility]/ZIP Co de Phone Number [facility] [place] [address] * POCT Glucose (03/06/2019 5:38 PM EDT) Glucose, POC 143 65 - 199 mg/dL [facility] Comment: Supplemental ranges: <140 mg/dL before meals <180 mg/dL all other times of the day Blood specimen (specimen) 03/06/2019 5:38 PM EDT 03/06/2019 5:38 PM EDT Ryan Lynch MD POINT OF CARE TEST ORDERABLES Performing Organization Address [facility] Co de Phone Number [facility] [place] [address] * Potassium (03/06/2019 12:55 PM EDT) Potassium 3.8 3.5 - 5.0 mmol/L [facility] Comment: Please note: ??Patients [...] MD CHEMISTRY ORDERABLE S Performing Organization Address City/[facility]/ZIP Co de Phone Number [facility] [place] [address] * POCT Glucose (03/06/2019 12:10 PM EDT) Glucose, POC 131 65 - 199 mg/dL [facility] Comment: Supplemental ranges: <140 mg/dL before meals <180 mg/dL all other times of the day Blood specimen (specimen) 03/06/2019 12:10 PM EDT 03/06/2019 12:10 PM EDT Ryan Lynch MD POINT OF CARE TEST ORDERABLES [facility] [place] [address] * POCT Glucose (03/06/2019 10:42 AM EDT) Glucose, POC 143 65 - 199 mg/dL [facility] Comment: Supplemental ranges: <140 mg/dL before meals <180 mg/dL all other times of the day Blood specimen (specimen) 03/06/2019 10:42 AM EDT 03/06/2019 10:42 AM EDT Ryan Lynch MD POINT OF CARE TEST ORDERABLES Performing Organization Address City/[facility]/ZIP Co de Phone Number [facility] [place] [address] * POCT Glucose (03/06/2019 8:18 AM EDT) Glucose, POC 144 65 - 199 mg/dL [facility] Comment: Supplemental ranges: <140 mg/dL before meals <180 mg/dL all other times of the day Blood specimen (specimen) 03/06/2019 8:18 AM EDT 03/06/2019 8:18 AM EDT Ryan Lynch MD POINT OF CARE TEST ORDERABLES [facility] [place] [address] * POCT Glucose (03/06/2019 6:18 AM EDT) Glucose, POC 141 65 - 199 mg/dL [facility] Comment: Supplemental ranges: <140 mg/dL before meals <180 mg/dL all other times of the day Blood specimen (specimen) 03/06/2019 6:18 AM EDT 03/06/2019 6:18 AM EDT Ryan Lynch MD POINT OF CARE TEST ORDERABLES Performing Organization Address City/[facility]/ZIP Co de Phone Number [facility] [place] [address] * POCT Glucose (03/06/2019 4:18 AM EDT) Glucose, POC 158 65 - 199 mg/dL [facility] Comment: Supplemental ranges: <140 mg/dL before meals <180 mg/dL all other times of the day Blood specimen (specimen) 03/06/2019 4:18 AM EDT 03/06/2019 4:18 AM EDT Ryan Lynch MD POINT OF CARE TEST ORDERABLES Performing Organization Address City/[facility]/ZIP Co de Phone Number [facility] [place] [address] * (ABNORMAL) Differential, Automated (03/06/2019 3:15 AM EDT) Neutrophil % 83.4 % [facility] Neutrophil Absolute 10.39(H) 1.70 - 6.10 x10(3)/mc L [facility] Lymph % 6.2 % [facility] Lymphocytes Abs 0.8(L) 0.9 - 3.2 x10(3)/mc L [facility] Monocyte % 9.7 % [facility] Monocyte Abs 1.2(H) 0.3 - 0.9 x10(3)/mc L [facility] Eos % 0.0 % [facility] Eosinophils Abs 0.0 0.0 - 0.4 x10(3)/mc L [facility] Basophil % 0.2 % [facility] Baso Absolute 0.0 0.0 - 0.1 x10(3)/ L [facility] Immature Gran % 0.50 % [facility] Comment: Immature granulocytes(IG's)percentage and absolute count will include metamyelocytes, myelocytes, and promyelocytes. Blood smears from CBCs yielding IG's will be scanned manually for concordance. If this scan disagrees with the automated IG or if promyelocytes are noted, a manual differential will be performed. Immature Gran Absolute 0.06(H) 0.00 - 0.04 x10(3)/ L [facility] Blood specimen (specimen) 03/06/2019 3:15 AM EDT 03/06/2019 3:21 AM EDT Narrative Resulting Agency Comment Spec In Lab Job BUCKNER HEMATOLOGY ORDERABLE S Performing Organization Address City/State/[facility] Co de Phone Number [facility] [place] [address] * (ABNORMAL) Hemogram (03/06/2019 3:15 AM EDT) White Blood Cell 12.5(H) 4.0 - 9.5 x10(3)/ L [facility] Red Blood Cell 3.21(L) 4.00 - 5.21 x10(6)/mc L [facility] Hemoglobin 9.9(L) 11.7 - 15.5 gm/dL [facility] Hematocrit 29.7(L) 35.7 - 45.8 % [facility] Mean Cell Volume 92.5 82.6 - 94.4 fL [facility] Mean Cell Hemoglobin 30.8 27.1 - 32.0 pg [facility] Mean Cell Hemoglobin Concentration 33.3 31.7 - 35.0 gm/dL [facility] Platelet 198 145 - 357 x10(3)/ L [facility] RDW Standard Deviation 47.0(H) 37.0 - 46.0 fL [facility] RDW coefficient of variation 14.0 11.5 - 14.1 % [facility] Mean Platelet Volume 8.8 7.6 - 12.9 fL [facility] NRBC% auto 0.0 % [facility] NRBC Absolute 0.000 0.000 - 0.000 x10(3)/mc L [facility] Blood specimen (specimen) 03/06/2019 3:15 AM EDT 03/06/2019 3:21 AM EDT Narrative Resulting Agency Comment Spec In Lab Job BUCKNER HEMATOLOGY ORDERABLE S [facility] [place] [address] * (ABNORMAL) Basic Metabolic Panel (non-fasting) (03/06/2019 3:15 AM EDT) Glucose 165 65 - 199 mg/dL [facility] Comment:Diabetes: >=200 mg/d L plus symptoms Blood Urea Nitrogen 17 8 - 18 mg/dL [facility] Creatinine 0.54(L) 0.70 - 1.20 mg/dL [facility] Sodium 138 135 - 145 mmol/L [facility] Potassium 4.3 3.5 - 5.0 mmol/L [facility] Comment: Please note: ??Patients with WBC >100,000 may have falsely elevated Potassium levels. ??For accurate Potassium quantification in these patients send serum separator tube (gold top) for subsequent determinations. ??Contact the Clinical Chemistry Laboratory if there are any questions. Chloride 106 98 - 107 mmol/L [facility] Carbon Dioxide 22 22 - 31 mmol/L [facility] Anion Gap 10 5 - 15 mmol/L [facility] Calcium 7.2(L) 8.5 - 10.5 mg/dL [facility] Est Glomerular Filtration Rate 92 >=60 mL/min/1. 73 m?? [facility] Comment: The eGFR was calculated using the CKD-EPI equation. As with all creatinine based estimates of kidney function, eGFR values calculated with the CKD-EPI equation are not accurate in patients with acute kidney failure, extremes of body mass or the acutely ill. [email or web address]f eGFR 107 >=60 mL/min/1. 73 m?? [facility] Comment: The eGFR was calculated using the CKD-EPI equation. As with all creatinine based estimates of kidney function, eGFR values calculated with the CKD-EPI equation are not accurate in patients with acute kidney failure, extremes of body mass or the acutely ill. [email or web address]/[facility] Blood specimen (specimen) 03/06/2019 3:15 AM EDT 03/06/2019 3:21 AM EDT Narrative Resulting Agency Comment Spec In Lab Ryan Lynch MD CHEMISTRY ORDERABLE S [facility] [place] [address] * (ABNORMAL) Troponin (03/06/2019 3:15 AM EDT) Troponin-T 0.55(H) 0.00 - 0.00 ng/mL [facility] Comment: The 99th percentile for Troponin T is less than 0.01 ng/mL, any detectable cTnT concentration using this assay should be considered elevated. According to the third universal definition of myocardial infarction the following criteria with a clinical presentation consistent with acute myocardial ischemia meets the diagnosis for a myocardial infarction (SC). Detection of a rise and/or fall of cTnT, with at least one value greater than the 99th percentile (> or = 0.01) and with at least one of the following ?? Symptoms of ischemia ?? New or presumed new significant IP-[id number] wave (ST-T) changes or new left bundle [...] additional sample may be indicated. Reference: Third [place] Definition of Myocardial Infarction. Journal of the [place] [employer] 2012;60:1581-98 Blood specimen (specimen) 03/06/2019 3:15 AM EDT 03/06/2019 3:21 AM EDT Narrative Resulting Agency Comment Spec In Lab Ryan Lynch MD CHEMISTRY ORDERABLE S Performing Organization Address City/[facility]/ZIP Co de Phone Number [facility] [place] [address] * POCT Glucose (03/06/2019 3:07 AM EDT) Glucose, POC 150 65 - 199 mg/dL [facility] Comment: Supplemental ranges: <140 mg/dL before meals <180 mg/dL all other times of the day Blood specimen (specimen) 03/06/2019 3:07 AM EDT 03/06/2019 3:07 AM EDT Ryan Lynch MD POINT OF CARE TEST ORDERABLES Performing Organization Address [facility] Co de Phone Number [facility] [place] [address] * POCT Glucose (03/06/2019 1:48 AM EDT) Glucose, POC 132 65 - 199 mg/dL [facility] Comment: Supplemental ranges: <140 mg/dL before meals <180 mg/dL all other times of the day Blood specimen (specimen) 03/06/2019 1:48 AM EDT 03/06/2019 1:48 AM EDT Ryan Lynch MD POINT OF CARE TEST ORDERABLES Performing Organization Address [facility] Co de Phone Number [facility] [place] [address] * POCT Glucose (03/06/2019 12:58 AM EDT) Glucose, POC 145 65 - 199 mg/dL [facility] Comment: Supplemental ranges: <140 mg/dL before meals <180 mg/dL all other times of the day Blood specimen (specimen) 03/06/2019 12:58 AM EDT 03/06/2019 12:58 AM EDT Ryan Lynch MD POINT OF CARE TEST ORDERABLES Performing Organization Address City/[facility] Co de Phone Number [facility] [place] [address] * POCT Glucose (03/05/2019 11:52 PM EDT) Glucose, POC 183 65 - 199 mg/dL [facility] Comment: Supplemental ranges: <140 mg/dL before meals <180 mg/dL all other times of the day Blood specimen (specimen) 03/05/2019 11:52 PM EDT 03/05/2019 11:52 PM EDT Ryan Lynch MD POINT OF CARE TEST ORDERABLES Performing Organization Address [facility] Co de Phone Number [facility] [place] [address] * POCT Glucose (03/05/2019 10:58 PM EDT) Glucose, POC 150 65 - 199 mg/dL [facility] Comment: Supplemental ranges: <140 mg/dL before meals <180 mg/dL all other times of the day Blood specimen (specimen) 03/05/2019 10:58 PM EDT 03/05/2019 10:58 PM EDT Ryan Lynch MD POINT OF CARE TEST ORDERABLES Performing Organization Address City/[facility] Co de Phone Number [facility] [place] [address] * EKG 12 Lead (03/05/2019 10:06 PM EDT) Ventricular rate 76 BPM MUSE SYSTEM Atrial Rate 76 BPM MUSE SYSTEM P-R Interval 180 ms MUSE SYSTEM QRS Duration 92 ms MUSE SYSTEM Q-T Interval 412 ms MUSE SYSTEM QTC Calculated (Bezet) 463 ms MUSE SYSTEM Calculated P [place] 51 degrees MUSE SYSTEM Calculated R [place] -7 degrees MUSE SYSTEM Calculated T [place] 39 degrees MUSE SYSTEM INTERPRETATION Normal sinus rhythm ST elevation consider lateral injury or acute infarct Abnormal ECG When compared with ECG of 24-FEB-2019 09:58, ST elevation now present in Lateral leads Confirmed by MD Yanes Daniel ([id number]) on 03/06/2019 4:58:41 PM MUSE SYSTEM 03/05/2019 10:0 6 PM EDT 03/06/2019 4:58 PM EDT Ryan Lynch MD ECG ORDERABLES MUSE SYSTEM * POCT Glucose (03/05/2019 9:18 PM EDT) Glucose, POC 149 65 - 199 mg/dL [facility] Comment: Supplemental ranges: <140 mg/dL before meals <180 mg/dL all other times of the day Blood specimen (specimen) 03/05/2019 9:18 PM EDT 03/05/2019 9:18 PM EDT Ryan Lynch MD POINT OF CARE TEST ORDERABLES Performing Organization Address City/[facility]/ZIP Co de Phone Number [facility] [place] [address] * Potassium (03/05/2019 9:15 PM EDT) Potassium 4.0 3.5 - 5.0 mmol/L [facility] Comment: Please note: ??Patients [...] Lab Ryan Lynch MD CHEMISTRY ORDERABLE S [facility] [place] [address] * Transfuse 1 unit platelets, apheresis (03/05/2019 8:55 PM EDT) Ryan yLnch MD NURSING TREATMENT O RDERABLES - BLOOD ADMIN * Transfuse 1 unit platelets, apheresis (03/05/2019 8:55 PM EDT) Ryan Lynch MD NURSING TREATMENT O RDERABLES - BLOOD ADMIN * POCT Glucose (03/05/2019 7:26 PM EDT) [facility] Glucose, POC 150 65 - 199 mg/dL [facility] Comment: Supplemental ranges: <140 mg/dL before meals <180 mg/dL all other times of the day Blood specimen (specimen) 03/05/2019 7:26 PM EDT 03/05/2019 7:26 PM EDT Ryan Lynch MD POINT OF CARE TEST ORDERABLES Performing Organization Address [facility]/ZIP Co de Phone Number [facility] [place] [address] * (ABNORMAL) BLOOD GAS 2 ARTERIAL (03/05/2019 5:42 PM EDT) pH, Arterial 7.34(L) 7.35 - 7.45 [facility] PCO2, Arterial 38 35 - 45 mmHg [facility] PO2, Arterial 121(H) 85 - 104 mmHg [facility] Bicarbonate, Arterial 20.4 20.0 - 26.0 mmol/L [facility] Base Excess, Arterial -5.3(L) -3.0 - 3.0 mmol/L [facility] Hgb Blood Gas 11.3(L) 11.7 - 15.5 gm/dL [facility] Oxyhemoglobin, Arterial 96.8 94.0 - 97.0 % [facility] Carboxyhemoglob in, Arterial 0.3 % [facility] Comment: Nonsmokers: 0.5-1.5% COHB Smokers: Variable, but usually less than 10% Toxic: 20-30% COHB Lethal: Greater than 60% COHB Methemoglobin, Arterial 0.6 <=1.5 % [facility] Na Whole Blood 138 135 - 145 mmol/L [facility] K Whole Blood 3.7 3.5 - 5.0 mmol/L [facility] Comment: Please note: Patients with WBC >100,000 may have falsely elevated Potassium levels. Contact the Clinical Chemistry Laboratory if there are any questions. ICa Whole Blood 1.07(L) 1.15 - 1.33 mmol/L [facility] Comment: Note: ??Total bilirubin higher than 20 mg/dL may lead to falsely low ionized calcium. CL Whole Blood 108(H) 98 - 107 mmol/L [facility] Gluc Whole Bld 148 65 - 199 mg/dL [facility] Comment:Diabetes: >=200 mg/d L plus symptoms. Lactate WB 2.8(H) 0.5 - 2.2 mmol/L [facility] FIO2 Art 40 % [facility] PF Ratio Art 302 [facility] Blood specimen (specimen) 03/05/2019 5:42 PM EDT 03/05/2019 5:42 PM EDT Ryan Lynch MD POINT OF CARE TEST ORDERABLES [facility] [place] [address] * XR Chest One View (03/05/2019 4:33 [...] EDT) Hemoglobin 10.9(L) 11.7 - 15.5 gm/dL [facility] Blood specimen (specimen) 03/05/2019 4:10 PM EDT 03/05/2019 4:15 PM EDT Narrative Resulting Agency Comment Spec In Lab Ryan Lynch MD HEMATOLOGY ORDERABL ES Performing Organization Address [facility] Co de Phone Number [facility] [place] [address] * Potassium (03/05/2019 4:10 PM EDT) Potassium 4.2 3.5 - 5.0 mmol/L [facility] Comment: Please note: ??Patients [...] MD CHEMISTRY ORDERABLE S Performing Organization Address [facility] Co de Phone Number [facility] [place] [address] * POCT Glucose (03/05/2019 4:08 PM EDT) Glucose, POC 153 65 - 199 mg/dL [facility] Comment: Supplemental ranges: <140 mg/dL before meals <180 mg/dL all other times of the day Blood specimen (specimen) 03/05/2019 4:08 PM EDT 03/05/2019 4:08 PM EDT Ryan Lynch MD POINT OF CARE TEST ORDERABLES Performing Organization Address [facility] Co de Phone Number [facility] [place] [address] * (ABNORMAL) BLOOD GAS 2 ARTERIAL (03/05/2019 2:14 PM EDT) pH, Arterial 7.34(L) 7.35 - 7.45 [facility] PCO2, Arterial 42 35 - 45 mmHg [facility] PO2, Arterial 121(H) 85 - 104 mmHg [facility] Bicarbonate, Arterial 22.0 20.0 - 26.0 mmol/L [facility] Base Excess, Arterial -3.7(L) -3.0 - 3.0 mmol/L [facility] Hgb Blood Gas 12.0 11.7 - 15.5 gm/dL [facility] Oxyhemoglobin, Arterial 96.8 94.0 - 97.0 % [facility] Carboxyhemoglob in, Arterial 0.3 % [facility] Comment: Nonsmokers: 0.5-1.5% COHB Smokers: Variable, but usually less than 10% Toxic: 20-30% COHB Lethal: Greater than 60% COHB Methemoglobin, Arterial 0.7 <=1.5 % [facility] Na Whole Blood 136 135 - 145 mmol/L [facility] K Whole Blood 4.3 3.5 - 5.0 mmol/L [facility] Comment: Please note: Patients with WBC >100,000 may have falsely elevated Potassium levels. Contact the Clinical Chemistry Laboratory if there are any questions. ICa Whole Blood 1.06(L) 1.15 - 1.33 mmol/L [facility] Comment: Note: ??Total bilirubin higher than 20 mg/dL may lead to falsely low ionized calcium. CL Whole Blood 107 98 - 107 mmol/L [facility] Gluc Whole Bld 182 65 - 199 mg/dL [facility] Comment:Diabetes: >=200 mg/d L plus symptoms. Lactate WB 2.6(H) 0.5 - 2.2 mmol/L [facility] FIO2 Art 40 % [facility] PF Ratio Art 302 [facility] Blood specimen (specimen) 03/05/2019 2:14 PM EDT 03/05/2019 2:14 PM EDT Ryan Lynch MD POINT OF CARE TEST ORDERABLES Performing Organization Address [facility] Co de Phone Number [facility] [place] [address] * POCT Glucose (03/05/2019 2:08 PM EDT) Glucose, POC 183 65 - 199 mg/dL [facility] Comment: Supplemental ranges: <140 mg/dL before meals <180 mg/dL all other times of the day Blood specimen (specimen) 03/05/2019 2:08 PM EDT 03/05/2019 2:08 PM EDT Ryan Lynch MD POINT OF CARE TEST ORDERABLES Performing Organization Address [facility] Co de Phone Number [facility] [place] [address] * XR Chest One View (03/05/2019 12:48 [...] EDT) pH, Arterial 7.33(L) 7.35 - 7.45 [facility] PCO2, Arterial 42 35 - 45 mmHg [facility] PO2, Arterial 178(H) 85 - 104 mmHg [facility] Bicarbonate, Arterial 21.7 20.0 - 26.0 mmol/L [facility] Base Excess, Arterial -4.3(L) -3.0 - 3.0 mmol/L [facility] Hgb Blood Gas 11.2(L) 11.7 - 15.5 gm/dL [facility] Oxyhemoglobin, Arterial 97.6(H) 94.0 - 97.0 % [facility] Carboxyhemoglob in, Arterial 0.3 % [facility] Comment: Nonsmokers: 0.5-1.5% COHB Smokers: Variable, but usually less than 10% Toxic: 20-30% COHB Lethal: Greater than 60% COHB Methemoglobin, Arterial 0.8 <=1.5 % [facility] Na Whole Blood 137 135 - 145 mmol/L [facility] K Whole Blood 3.2(L) 3.5 - 5.0 mmol/L [facility] Comment: Please note: Patients with WBC >100,000 may have falsely elevated Potassium levels. Contact the Clinical Chemistry Laboratory if there are any questions. ICa Whole Blood 1.01(L) 1.15 - 1.33 mmol/L [facility] Comment: Note: ??Total bilirubin higher than 20 mg/dL may lead to falsely low ionized calcium. CL Whole Blood 106 98 - 107 mmol/L [facility] Gluc Whole Bld 197 65 - 199 mg/dL [facility] Comment:Diabetes: >=200 mg/d L plus symptoms. Lactate WB 2.9(H) 0.5 - 2.2 mmol/L [facility] FIO2 Art 100 % [facility] PF Ratio Art 178 [facility] Blood specimen (specimen) 03/05/2019 12:45 PM EDT 03/05/2019 12:45 PM EDT Ryan Lynch MD POINT OF CARE TEST ORDERABLES [facility] [place] [address] * Prepare Platelets, Apheresis (03/05/2019 11:45 AM EDT) Dispensed? Yes [facility] Blood specimen (specimen) 03/05/2019 11:45 AM EDT 03/05/2019 11:43 AM EDT Ryan Lynch MD BLOOD BANK PRODUCT ORDERABLES [facility] [place] [address] * (ABNORMAL) BLOOD GAS 2 ARTERIAL (03/05/2019 11:14 AM EDT) pH, Arterial 7.39 7.35 - 7.45 [facility] PCO2, Arterial 40 35 - 45 mmHg [facility] PO2, Arterial 325(H) 85 - 104 mmHg [facility] Bicarbonate, Arterial 23.9 20.0 - 26.0 mmol/L [facility] Base Excess, Arterial -1.1 -3.0 - 3.0 mmol/L [facility] Hgb Blood Gas 8.1(L) 11.7 - 15.5 gm/dL [facility] Oxyhemoglobin, Arterial 98.7(H) 94.0 - 97.0 % [facility] Carboxyhemoglob in, Arterial 0.4 % [facility] Comment: Nonsmokers: 0.5-1.5% COHB Smokers: Variable, but usually less than 10% Toxic: 20-30% COHB Lethal: Greater than 60% COHB Methemoglobin, Arterial 0.3 <=1.5 % [facility] Na Whole Blood 131(L) 135 - 145 mmol/L [facility] K Whole Blood 3.4(L) 3.5 - 5.0 mmol/L [facility] Comment: Please note: Patients with WBC >100,000 may have falsely elevated Potassium levels. Contact the Clinical Chemistry Laboratory if there are any questions. ICa Whole Blood 1.10(L) 1.15 - 1.33 mmol/L [facility] Comment: Note: ??Total bilirubin higher than 20 mg/dL may lead to falsely low ionized calcium. CL Whole Blood 104 98 - 107 mmol/L [facility] Gluc Whole Bld 216(H) 65 - 199 mg/dL [facility] Comment:Diabetes: >=200 mg/d L plus symptoms. Lactate WB 3.4(H) 0.5 - 2.2 mmol/L [facility] FIO2 Art 90 % [facility] PF Ratio Art 361 [facility] Blood specimen (specimen) 03/05/2019 11:14 AM EDT 03/05/2019 11:14 AM EDT Ryan Lynch MD POINT OF CARE TEST ORDERABLES [facility] [place] [address] * (ABNORMAL) Differential, Automated (03/05/2019 11:04 AM EDT) Neutrophil % 69.8 % [facility] Neutrophil Absolute 7.85(H) 1.70 - 6.10 x10(3)/mc L [facility] Lymph % 24.5 % [facility] Lymphocytes Abs 2.8 0.9 - 3.2 x10(3)/mc L [facility] Monocyte % 3.1 % [facility] Monocyte Abs 0.4 0.3 - 0.9 x10(3)/mc L [facility] Eos % 1.0 % [facility] Eosinophils Abs 0.1 0.0 - 0.4 x10(3)/mc L [facility] Basophil % 0.2 % [facility] Baso Absolute 0.0 0.0 - 0.1 x10(3)/mc L [facility] Immature Gran % 1.40 % [facility] Comment: Immature granulocytes(IG's)percentage and absolute count will include metamyelocytes, myelocytes, and promyelocytes. Blood smears from CBCs yielding IG's will be scanned manually for concordance. If this scan disagrees with the automated IG or if promyelocytes are noted, a manual differential will be performed. Immature Gran Absolute 0.16(H) 0.00 - 0.04 x10(3)/mc L [facility] Blood specimen (specimen) 03/05/2019 11:04 AM EDT 03/05/2019 11:26 AM EDT Narrative Resulting Agency Comment Spec In Lab Ish Shaikh MD HEMATOLOGY ORDERAB LES [facility] [place] [address] * (ABNORMAL) Hemogram (03/05/2019 11:04 AM EDT) White Blood Cell 11.2(H) 4.0 - 9.5 x10(3)/mc L [facility] Red Blood Cell 2.41(L) 4.00 - 5.21 x10(6)/mc L [facility] Hemoglobin 7.6(L) 11.7 - 15.5 gm/dL [facility] Hematocrit 22.8(L) 35.7 - 45.8 % [facility] Comment: This result has been called to GEOVANI HOPSON by Law Chacon on 03 05 2019 at 1130, and has been read back. Mean Cell Volume 94.6(H) 82.6 - 94.4 fL [facility] Mean Cell Hemoglobin 31.5 27.1 - 32.0 pg [facility] Mean Cell Hemoglobin Concentration 33.3 31.7 - 35.0 gm/dL [facility] Platelet 153 145 - 357 x10(3)/mc L [facility] RDW Standard Deviation 47.8(H) 37.0 - 46.0 [facility] RDW coefficient of variation 13.7 11.5 - 14.1 % [facility] Mean Platelet Volume 9.1 7.6 - 12.9 fL [facility] NRBC% auto 0.0 % [facility] NRBC Absolute 0.000 0.000 - 0.000 x10(3)/mc L [facility] Blood specimen (specimen) 03/05/2019 11:04 AM EDT 03/05/2019 11:26 AM EDT Narrative Resulting Agency Comment Spec In Lab Ish Shaikh MD HEMATOLOGY ORDERAB LES Performing Organization Address [facility] Co de Phone Number [facility] [place] [address] * (ABNORMAL) Fibrinogen (03/05/2019 11:04 AM EDT) Fibrinogen 118(L) 200 - 393 mg/dL [facility] Comment: Called by: clay, Read back by: geovani hopson_, Date/Time:03/05/19 11:43_. A fibrinogen level >100 mg/dL is adequate for hemostasis in most patients without underlying bleeding disorders. Blood specimen (specimen) 03/05/2019 11:04 AM EDT 03/05/2019 11:26 AM EDT Narrative Resulting Agency Comment Spec In Lab Bob Bolaños MD HEMATOLOGY ORDERABLE S Performing Organization Address [facility] Co de Phone Number [facility] [place] [address] * APTT (03/05/2019 11:04 AM EDT) Partial Thromboplastin Time 32 25 - 37 sec [facility] Comment: Called by: clay, [...] MD HEMATOLOGY ORDERABLE S Performing Organization Address [facility] Co de Phone Number [facility] [place] [address] * (ABNORMAL) Prothrombin Time (03/05/2019 11:04 AM EDT) Prothrombin Time 18.0(H) 9.4 - 12.5 sec [facility] Comment:Called by: clay, Read back by: geovani hopson_, Date/Time:03/05/19 11:43_. International Normalization Ratio 1.6 [facility] Comment: Called by: clay, [...] Lab Bob Bolaños MD HEMATOLOGY ORDERABLE S [facility] [place] [address] * Platelet count (03/05/2019 10:38 AM EDT) Platelet 185 145 - 357 x10(3)/mc L [facility] Immature Plt % 1.1 0.0 - 7.4 % [facility] Comment: Limitation of the Immature Platelet Fraction (IPF)-May be less reliable when the platelet count is less than 87a853/uL due to statistical imprecision. The IPF value [...] in a decreased state of production. References: [employer] The Clinical Value of the Immature Platelet Fraction (IPF) in Cell Recovery Document Number 10-1143 11/2010 [employer] The Role of the Immature Platelet Fraction (IPF) in the Differential Diagnosis of Thrombocytopenia, Document [id number] V05 P011/11 Blood specimen (specimen) 03/05/2019 10:38 AM EDT 03/05/2019 10:46 AM EDT Narrative Resulting Agency Comment Spec In Lab Ryan Lynch MD HEMATOLOGY ORDERABL ES Performing Organization Address [facility] Co de Phone Number [facility] [place] [address] * (ABNORMAL) Hemoglobin and Hematocrit, blood (03/05/2019 10:38 AM EDT) Hemoglobin 7.3(L) 11.7 - 15.5 gm/dL [facility] Hematocrit 22.5(L) 35.7 - 45.8 % [facility] Comment: This result has been called to HAYDEE HOPSON by Tatiana Vo on 03 05 2019 at 1055, and has been read back. Blood specimen (specimen) 03/05/2019 10:38 AM EDT 03/05/2019 10:46 AM EDT Narrative Resulting Agency Comment Spec In Lab Ryan Lynch MD HEMATOLOGY ORDERABL ES Performing Organization Address [facility]/ZIP Co de Phone Number [facility] [place] [address] * (ABNORMAL) Fibrinogen (03/05/2019 10:38 AM EDT) Fibrinogen 120(L) 200 - 393 mg/dL [facility] Comment: A fibrinogen level >100 mg/dL is adequate for hemostasis in most patients without underlying bleeding disorders. Blood specimen (specimen) 03/05/2019 10:38 AM EDT 03/05/2019 10:46 AM EDT Narrative Resulting Agency Comment Spec In Lab Ryan Lynch MD HEMATOLOGY ORDERABL ES [facility] [place] [address] * (ABNORMAL) BLOOD GAS 2 ARTERIAL (03/05/2019 10:29 AM EDT) pH, Arterial 7.43 7.35 - 7.45 [facility] PCO2, Arterial 34(L) 35 - 45 mmHg [facility] PO2, Arterial 360(H) 85 - 104 mmHg [facility] Bicarbonate, Arterial 21.8 20.0 - 26.0 mmol/L [facility] Base Excess, Arterial -2.5 -3.0 - 3.0 mmol/L [facility] Hgb Blood Gas 8.3(L) 11.7 - 15.5 gm/dL [facility] Oxyhemoglobin, Arterial 98.8(H) 94.0 - 97.0 % [facility] Carboxyhemoglob in, Arterial 0.3 % [facility] Comment: Nonsmokers: 0.5-1.5% COHB Smokers: Variable, but usually less than 10% Toxic: 20-30% COHB Lethal: Greater than 60% COHB Methemoglobin, Arterial 0.3 <=1.5 % [facility] Na Whole Blood 128(L) 135 - 145 mmol/L [facility] K Whole Blood 4.5 3.5 - 5.0 mmol/L [facility] Comment: Please note: Patients with WBC >100,000 may have falsely elevated Potassium levels. Contact the Clinical Chemistry Laboratory if there are any questions. ICa Whole Blood 0.91(Criti edward) 1.15 - 1.33 mmol/L [facility] Comment: Note: ??Total bilirubin higher than 20 mg/dL may lead to falsely low ionized calcium. CL Whole Blood 100 98 - 107 mmol/L [facility] Gluc Whole Bld 221(H) 65 - 199 mg/dL [facility] Comment:Diabetes: >=200 mg/d L plus symptoms. Lactate WB 2.8(H) 0.5 - 2.2 mmol/L [facility] Blood specimen (specimen) 03/05/2019 10:29 AM EDT 03/05/2019 10:29 AM EDT Ryan Lynch MD POINT OF CARE TEST ORDERABLES [facility] [place] [address] * (ABNORMAL) BLOOD GAS 2 ARTERIAL (03/05/2019 9:56 AM EDT) pH, Arterial 7.41 7.35 - 7.45 [facility] PCO2, Arterial 38 35 - 45 mmHg [facility] PO2, Arterial 362(H) 85 - 104 mmHg [facility] Bicarbonate, Arterial 24.0 20.0 - 26.0 mmol/L [facility] Base Excess, Arterial -0.6 -3.0 - 3.0 mmol/L [facility] Hgb Blood Gas 8.7(L) 11.7 - 15.5 gm/dL [facility] Oxyhemoglobin, Arterial 99.1(H) 94.0 - 97.0 % [facility] Carboxyhemoglob in, Arterial 0.0 % [facility] Comment: Nonsmokers: 0.5-1.5% COHB Smokers: Variable, but usually less than 10% Toxic: 20-30% COHB Lethal: Greater than 60% COHB Methemoglobin, Arterial 0.3 <=1.5 % [facility] Na Whole Blood 131(L) 135 - 145 mmol/L [facility] K Whole Blood 4.4 3.5 - 5.0 mmol/L [facility] Comment: Please note: Patients with WBC >100,000 may have falsely elevated Potassium levels. Contact the Clinical Chemistry Laboratory if there are any questions. ICa Whole Blood 0.91(Criti edward) 1.15 - 1.33 mmol/L [facility] Comment: Note: ??Total bilirubin higher than 20 mg/dL may lead to falsely low ionized calcium. CL Whole Blood 103 98 - 107 mmol/L [facility] Gluc Whole Bld 207(H) 65 - 199 mg/dL [facility] Comment:Diabetes: >=200 mg/d L plus symptoms. Lactate WB 2.5(H) 0.5 - 2.2 mmol/L [facility] Blood specimen (specimen) 03/05/2019 9:56 AM EDT 03/05/2019 9:56 AM EDT Ryan Lynch MD POINT OF CARE TEST ORDERABLES Performing Organization Address City/State/[facility] Co de Phone Number [facility] [place] [address] * (ABNORMAL) BLOOD GAS 2 VENOUS (03/05/2019 9:27 AM EDT) pH, Venous 7.32 7.32 - 7.42 [facility] PCO2, Venous 45 41 - 51 mmHg [facility] PO2, Venous 48(H) 25 - 40 mmHg [facility] Bicarbonate, Venous 22.5 mmol/L [facility] Base Excess, Venous -3.6 mmol/L [facility] Hgb Blood Gas 9.0(L) 11.7 - 15.5 gm/dL [facility] Oxyhemoglobin, Venous 80.9 % [facility] Carboxyhemoglob in, Venous 0.3 % [facility] Comment: Nonsmokers: 0.5-1.5% COHB Smokers: Variable, but usually less than 10% Toxic: 20-30% COHB Lethal: Greater than 60% COHB Methemoglobin, Venous 0.3 <=1.5 % [facility] Na Whole Blood 136 135 - 145 mmol/L [facility] K Whole Blood 4.2 3.5 - 5.0 mmol/L [facility] Comment: Please note: Patients with WBC >100,000 may have falsely elevated Potassium levels. Contact the Clinical Chemistry Laboratory if there are any questions. ICa Whole Blood 0.86(Criti edward) 1.15 - 1.33 mmol/L [facility] Comment: Note: ??Total bilirubin higher than 20 mg/dL may lead to falsely low ionized calcium. CL Whole Blood 102 98 - 107 mmol/L [facility] Gluc Whole Bld 196 65 - 199 mg/dL [facility] Comment:Diabetes: >=200 mg/d L plus symptoms Lactate WB 2.2 0.5 - 2.2 mmol/L [facility] Blood Gas Source Venous [facility] Blood specimen (specimen) 03/05/2019 9:27 AM EDT 03/05/2019 9:27 AM EDT Ryan Lynch MD POINT OF CARE TEST ORDERABLES Performing Organization Address City/State/[facility] Co de Phone Number [facility] [place] [address] * (ABNORMAL) BLOOD GAS 2 ARTERIAL (03/05/2019 9:25 AM EDT) pH, Arterial 7.37 7.35 - 7.45 [facility] PCO2, Arterial 40 35 - 45 mmHg [facility] PO2, Arterial 408(H) 85 - 104 mmHg [facility] Bicarbonate, Arterial 22.7 20.0 - 26.0 mmol/L [facility] Base Excess, Arterial -2.6 -3.0 - 3.0 mmol/L [facility] Hgb Blood Gas 8.8(L) 11.7 - 15.5 gm/dL [facility] Oxyhemoglobin, Arterial 98.8(H) 94.0 - 97.0 % [facility] Carboxyhemoglob in, Arterial 0.3 % [facility] Comment: Nonsmokers: 0.5-1.5% COHB Smokers: Variable, but usually less than 10% Toxic: 20-30% COHB Lethal: Greater than 60% COHB Methemoglobin, Arterial 0.3 <=1.5 % [facility] Na Whole Blood 136 135 - 145 mmol/L [facility] K Whole Blood 4.4 3.5 - 5.0 mmol/L [facility] Comment: Please note: Patients with WBC >100,000 may have falsely elevated Potassium levels. Contact the Clinical Chemistry Laboratory if there are any questions. ICa Whole Blood 0.81(Criti edward) 1.15 - 1.33 mmol/L [facility] Comment: Note: ??Total bilirubin higher than 20 mg/dL may lead to falsely low ionized calcium. CL Whole Blood 103 98 - 107 mmol/L [facility] Gluc Whole Bld 199 65 - 199 mg/dL [facility] Comment:Diabetes: >=200 mg/d L plus symptoms. Lactate WB 2.1 0.5 - 2.2 mmol/L [facility] Blood specimen (specimen) 03/05/2019 9:25 AM EDT 03/05/2019 9:25 AM EDT Ryan Lynch MD POINT OF CARE TEST ORDERABLES [facility] [place] [address] * (ABNORMAL) BLOOD GAS 2 ARTERIAL (03/05/2019 8:32 AM EDT) pH, Arterial 7.43 7.35 - 7.45 [facility] PCO2, Arterial 37 35 - 45 mmHg [facility] PO2, Arterial 468(H) 85 - 104 mmHg [facility] Bicarbonate, Arterial 24.1 20.0 - 26.0 mmol/L [facility] Base Excess, Arterial -0.2 -3.0 - 3.0 mmol/L [facility] Hgb Blood Gas 12.3 11.7 - 15.5 gm/dL [facility] Oxyhemoglobin, Arterial 99.3(H) 94.0 - 97.0 % [facility] Carboxyhemoglob in, Arterial 0.3 % [facility] Comment: Nonsmokers: 0.5-1.5% COHB Smokers: Variable, but usually less than 10% Toxic: 20-30% COHB Lethal: Greater than 60% COHB Methemoglobin, Arterial 0.0 <=1.5 % [facility] Na Whole Blood 140 135 - 145 mmol/L [facility] K Whole Blood 3.3(L) 3.5 - 5.0 mmol/L [facility] Comment: Please note: Patients with WBC >100,000 may have falsely elevated Potassium levels. Contact the Clinical Chemistry Laboratory if there are any questions. ICa Whole Blood 1.10(L) 1.15 - 1.33 mmol/L [facility] Comment: Note: ??Total bilirubin higher than 20 mg/dL may lead to falsely low ionized calcium. CL Whole Blood 105 98 - 107 mmol/L [facility] Gluc Whole Bld 133 65 - 199 mg/dL [facility] Comment:Diabetes: >=200 mg/d L plus symptoms. Lactate WB 2.4(H) 0.5 - 2.2 mmol/L [facility] FIO2 Art 90 % [facility] PF Ratio Art 520 [facility] Blood specimen (specimen) 03/05/2019 8:32 AM EDT 03/05/2019 8:32 AM EDT Ryan Lynch MD POINT OF CARE TEST ORDERABLES [facility] [place] [address] * POCT Glucose (03/05/2019 6:49 AM EDT) Glucose, POC 133 65 - 199 mg/dL [facility] Comment: Supplemental ranges: <140 mg/dL before meals <180 mg/dL all other times of the day Blood specimen (specimen) 03/05/2019 6:49 AM EDT 03/05/2019 6:49 AM EDT Narrative Authorizing Provider Result Beverly Lynch MD POINT OF CARE TEST ORDERABLES [facility] [place] [address] * Prepare RBC (03/05/2019 6:35 AM EDT) Dispensed? Yes [facility] Blood specimen (specimen) 03/05/2019 6:35 AM EDT 03/05/2019 6:31 AM EDT Ryan Lynch MD BLOOD BANK PRODUCT ORDERABLES Performing Organization Address [facility] [place] [address] documented in this encounter Visit Diagnoses Diagnosis S/P CABG (coronary artery bypass graft)- Primary Postsurgical aortocoronary bypass status S/P CABG (coronary artery bypass graft) Postsurgical aortocoronary bypass status CAD (coronary artery disease) Coronary atherosclerosis of unspecified type of vessel, [place] or graft S/P CABG (coronary artery bypass graft) Postsurgical aortocoronary bypass status documented in this encounter Admitting Diagnoses Diagnosis CAD (coronary artery disease) Coronary atherosclerosis of unspecified type of vessel, [place] or graft documented in this encounter Administered [...] dose on Sat03/05/19 at 1300, Until Discontinued, Creole teeth, Routine Given 03/05/2019 1:09 PM EDT [...] or norepinephrine is ineffective. Call pager # [phone] if initiated. Rate/Dose Change 03/05/2019 12:15 PM [...] if phenyleprine and/or vasopressin ineffective.Call pager # [phone] if initiated., Routine Rate/Dose Change 03/05/2019 4:00 [...] 2.0 L/min/M2. Maximum volume 2 L. Call tobacco warehouse agent for additional fluid orders: pager #[phone]. Rate/Dose Verify 03/05/2019 6:00 PM EDT 50 mL/hr 50 mL/hr Rate/Dose Change 03/05/2019 4:00 PM EDT 50 mL/hr 50 mL/h r Rate/Dose Change 03/05/2019 3:00 PM EDT 150 mL/hr 150 mL/ hr sodium chloride 0.9% infusion 10-30 mL/hr, Intravenous, DAILY PRN, Starting on Lawanda 03/05/19 at 1208, Until Sat03/06/19 at 0947, Side port TKO rate, per [facility] nursing protocol. Rate/Dose Verify 03/05/2019 7:00 PM [...] Provider: Jazz Kiser, RN)1134 (Given - Provider: oCrnell Reyes, RN) aspirin chewable tablet 81 mg(Linked Group 2) 81 mg, Oral, DAILY, First dose on Sat03/05/19 at 1230, Until Discontinued, Routine 0906 (Given - Provider: Rg Gordillo RN) 0910 (Given - Provider: Rg Gordillo RN) 0838 (Given - Provider: Cornell Reyes, IGANNI) atorvastatin (LIPITOR) tablet 40 mg 40 mg, Oral, EVERY EVENING, First dose on Sat03/05/19 at 1700, Until Discontinued, Routine 1803 (Given - Provider: Rg Goridllo RN) 1718 (Given - Provider: Cornell Reyes [...] Routine documented in this encounter Care Teams Applications Engineer Manufacturing Relationship Specialty Start Date End Date Angie Alonzo MD [address] [place] [id number] PCP - General Family Medicine 06/25/17 documented as of this encounter
--- OUTSIDE RECORDS SUMMARY | 2024-08-12 10:29 | XMS_ITS | Encounter Summary ---
Author Organization [facility] Address [facility] [place] [address] Care Team Providers Care Brick Washer Name Role Phone Angie Alonzo MD Primary Care Provider [phone] Encounter Details Date Type Department Care Team (Latest Contact Info) Description 04/07/2019 1:18 PM EDT - 04/07/2019 11:59 PM EDT Hospital Encounter XRay at [address] [place] [address] Ryan Lynch MD S/P CABG (coronary artery [...] meter (FREESTYLE) Kit 1 each by [facility].(Non-Drug; Combo Route) route as needed [...] below. ? Electronically signed by: Leeanna Quintero [facility] ([phone]), at 04/07/2019 3:39 PM Narrative 04/07/2019 3:39 [...] status documented in this encounter Care Teams Brick Washer Relationship Specialty Start Date End Date Angie Alonzo MD [facility] [address] [address] PCP - General Family Medicine 06/25/17 documented as of this encounter
--- OUTSIDE RECORDS SUMMARY | 2024-08-12 10:29 | XMS_ITS | Encounter Summary ---
Author Organization [facility] Address [facility] [place] [address] Care Team Providers Care Archives Technician Name Role Phone Angie Alonzo MD Primary Care Provider [phone] Encounter Details Date Type Department Care Team (Latest Contact Info) Description 04/10/2019 1:30 PM EDT - 04/10/2019 11:59 PM EDT Hospital Encounter XRay at [address] [place] [address] Lexii Thomas APRN [facility] [place] [address] Discharge Disposition: Home Social History Tobacco Use [...] please contact the number below. Lexii Thomas BATTER MIXER HELPER IMG DX ORDERABLES documented in this encounter Visit Diagnoses Not on filedocumented in this encounter Care Teams Archives Technician Relationship Specialty Start Date End Date Angie Alonzo MD [address] [place] [address] PCP - General Family Medicine 06/25/17 documented as of this encounter
--- OUTSIDE RECORDS SUMMARY | 2024-08-12 10:29 | XMS_ITS | Encounter Summary ---
[place] [address] Care Team Providers Care Hr Analyst Name Role Phone Angie Alonzo MD Primary Care Provider Reason for Referral * Diagnostic Test (Routine) - Closed Specialty Diagnoses / Procedures Referred By Mima rivera Referred To Contact Radiology Diagnoses SOB (shortness of breath) Pleural effusion, left Procedures IR Chest Tube Placement Left Humberto Alejo PA [facility] [place] [address] [facility] [place] [address] Referral ID Status Reason Start Date Expiration Date V isits Requested Visits Authorized [id number] Closed Specialty Service Requested 04/07/2019 04/06/2020 1 1 Encounter Details Date Type Department Care Team (Late st Contact Info) Description 04/07/2019 2:40 PM EDT Office [place] [address] Ryan Lynch MD S/P CABG [...] PM EDT Cardiac Surgery Clinic Note ID: [id number] Cardiac Surgery Attending: Dr. Lynch HPI: Abimbola [...] rehab next week. She has seen her [facility] Skimmer in [place] and was continued on lasix given her [...] -continue lasix until cardiology follow up in [place] -May resume driving. -May return to work. -May resume unrestricted activities with exception of heavy lifting > 20# for three more weeks. -OK to start cardiac rehab next week. -No further cardiac surgery follow up needed. DW Attending Surgeon. Signed: DUDLEY MARINO [facility] [place] Section of Cardiac Surgery 04/07/2019 documented in [...] service (Dr. Lynch). ??To akanksha Thomas (Pager [phone]) for chest tube management after placement. ? [...] (Bezet) 462 ms MUSE SYSTEM Calculated P [employer] 33 degrees MUSE SYSTEM Calculated R [employer] 31 degrees MUSE SYSTEM Calculated T [employer] 59 degrees MUSE SYSTEM INTERPRETATION Normal sinus [...] effusion documented in this encounter Care Teams Hr Analyst Relationship Specialty Start Date End Date Angie Alonzo MD [address] [place] [address] PCP - General Family Medicine 06/25/17 documented as of this encounter
--- OUTSIDE RECORDS SUMMARY | 2024-08-12 10:29 | XMS_ITS | Encounter Summary ---
Author Organization [facility] [place] [address] Care Team Providers Care Driller Helper Name Role Phone Angie Alonzo MD Primary Care Provider [phone] Reason for Referral * Diagnostic Test (Routine) - Closed Specialty Diagnoses / Procedures Referred By Mima rivera Referred To Contact Radiology Diagnoses SOB (shortness of breath) Pleural effusion, left Procedures IR Chest Tube Placement Left Humberto Alejo PA [facility] [place] [address] [place] [address] Referral ID Status Reason Start Date Expiration Date V isits Requested Visits Authorized [id number] Closed Specialty Service Requested 04/07/2019 04/06/2020 1 1 Reason for Visit * Diagnostic Test (Routine) - Closed Specialty Diagnoses / Procedures Referred By Mima rivera Referred To Contact Radiology Diagnoses SOB (shortness of breath) Pleural effusion, left Procedures IR Chest Tube Placement Left Humberto Alejo PA [facility] [place] [address] [place] [address] Referral ID Status Reason Start Date Expiration Date V isits Requested Visits Authorized [id number] Closed Specialty Service Requested 04/07/2019 04/06/2020 1 1 Encounter Details Date Type Department Care Team (Latest Contact Info) Description 04/10/2019 8:27 AM EDT - 04/10/2019 1:29 PM EDT Hospital [place] [phone] Ryan Lynch MD SOB (shortness of breath); [...] your doctor if you can take an cyem-usz-psmibrl medicine. ? Take your antibiotics as directed. [...] more? Visit our health information library at [email or web address]. You can also view health information on Mohive, your personal patient account. Log in or sign uptoday. Enter [id number] in the search box to learn more about Chest Tube Removal: What to Expect at Home. Current as of: December 07, 2018 Content Version: 12.2 ?? [id number] [employer]. Care instructions adapted under license by [facility]. If you have questions about a medical condition or this instruction, always ask your healthcare professional. [employer] disclaims any warranty or liability for your [...] of : 1945 AGE: 73 y.o. Address: [address] [address] (home) Mobile: No relevant phone numbers on file. Referring Provider: Humberto Alejo REASON FOR VISIT: Order Questions Answers Where will study be performed? [facility] Radiology [120] Is the patient on anticoagulant [...] of left breast in female, estrogen receptor swxspeloR46.212, Z17.0 ??? CAD (coronary artery disease) I25.10 [...] 8.78) performed by Ashley Farooq MD at [facility] MAIN OR ??? PRO BX/REMV, LYMPH NODE, DEEP AXILL Left 07/04/2017 BIOPSY OR EXCISION OF LYMPH NODE(S), OPEN, DEEP AXILLARY NODE(S) (WRVU 6.43) performed by Ashley Farooq MD at [facility] MAIN OR ??? PRO CABG, ARTERIAL, SINGLE N/A 03/05/2019 @CABG, USING ARTERIAL GRAFT;SINGLE ARTERIAL GRAFT (WRVU 33.75) performed by Ryan Lynch MD at [facility] MAIN OR ??? PRO CABG, ARTERY-VEIN, THREE N/A 03/05/2019 @CABG; 3 VENOUS GRAFTS & ARTERIAL GRAFT (WRVU 10.49) performed by Ryan Lynch MD at [facility] MAIN OR ??? PRO ENDOSCOPY W/VIDEO-ASST VEIN HARVEST, CABG N/A 03/05/2019 ENDOSCOPIC HARVEST VEIN(S) FOR CABG (WRVU 0.31) performed by Ryan Lynch MD at [facility] MAIN OR ??? PRO INTRAOP SENTINEL LYMPH ID W/DYE INJECTION Left 07/04/2017 INTRAOPERATIVE ID (MAPPING) SENTINEL LYMPH NODE,INCLUDES INJECTION (WRVU 2.5) performed by Ashley Farooq MD at [facility] MAIN OR ??? PRO MASTECTOMY, PARTIAL Left 07/04/2017 MASTECTOMY PARTIAL (WRVU 10.13) performed by Ashley Farooq MD at [facility] MAIN OR Date/Procedure Meds given/comments Left Chest [...] Questions Answers Where will study be performed? [facility] Radiology [120] Is the patient on anticoagulant [...] (Dr. Lynch). To page Lexii Thomas (Pager [phone]) for chest tube management after placement. Past Medical/Surgical History: Patient Active Problem List Diagnosis Code ??? Malignant neoplasm of upper-inner quadrant of left breast in female, estrogen receptor ccetoqexZ11.212, Z17.0 ??? CAD (coronary artery disease) I25.10 [...] 8.78) performed by Ashley Farooq MD at [facility] OR ??? PRO BX/REMV, LYMPH NODE, DEEP AXILL Left 07/04/2017 BIOPSY OR EXCISION OF LYMPH NODE(S), OPEN, DEEP AXILLARY NODE(S) (WRVU 6.43) performed by Ashley Farooq MD at [facility] OR ??? PRO CABG, ARTERIAL, SINGLE N/A 03/05/2019 @CABG, USING ARTERIAL GRAFT;SINGLE ARTERIAL GRAFT (WRVU 33.75) performed by Ryan Lynch MD at [facility] OR ??? PRO CABG, ARTERY-VEIN, THREE N/A 03/05/2019 @CABG; 3 VENOUS GRAFTS & ARTERIAL GRAFT (WRVU 10.49) performed by Ryan Lynch MD at [facility] OR ??? PRO ENDOSCOPY W/VIDEO-ASST VEIN HARVEST, CABG N/A 03/05/2019 ENDOSCOPIC HARVEST VEIN(S) FOR CABG (WRVU 0.31) performed by Ryan Lynch MD at [facility] OR ??? PRO INTRAOP SENTINEL LYMPH ID W/DYE INJECTION Left 07/04/2017 INTRAOPERATIVE ID (MAPPING) SENTINEL LYMPH NODE,INCLUDES INJECTION (WRVU 2.5) performed by Ashley Farooq MD at [facility] MAIN OR ??? PRO MASTECTOMY, PARTIAL Left 07/04/2017 MASTECTOMY PARTIAL (WRVU 10.13) performed by Ashley Farooq MD at [facility] MAIN OR Medications: Current Outpatient Medications on [...] file Gets together: Not on file Attends sabianism service: Not on file Active member of [...] (Dr. Lynch). To page Lexii Thomas (Pager [phone]) for chest tube management after placement. Procedure [...] please contact the number below. Lexii Thomas SENIOR SHIPPING CLERK IMG DX ORDERABLES * IR Chest Tube [...] (Dr. Lynch). ??To page Lexii Thomas (Pager [phone]) for chest tube management after placement. ? [...] mcg documented in this encounter Care Teams Driller Helper Relationship Specialty Start Date End Date Angie Alonzo MD [facility] [address] [place] [address] PCP - General Family Medicine 06/25/17 documented as of this encounter
--- OUTSIDE RECORDS SUMMARY | 2024-08-12 10:29 | XMS_ITS | Encounter Summary ---
Author Organization [facility] Address [facility] [place] [address] Care Team Providers Care Pit Manager Name Role Phone Angie Alonzo MD Primary Care Provider [phone] Encounter Details Date Type Department Care Team (Late st Contact Info) Description 04/10/2019 [place] [phone] Lexii Thomas APRN [facility] [place] [address] Pleural effusion Social History Tobacco Use Types [...] effusion documented in this encounter Care Teams Pit Manager Relationship Specialty Start Date End Date Angie Alonzo MD [address] [place] [address] PCP - General Family Medicine 06/25/17 documented as of this encounter
--- OUTSIDE RECORDS SUMMARY | 2024-08-12 10:30 | XMS_ITS | Encounter Summary ---
Author Organization [facility] Address [facility] [place] [address] Care Team Providers Care Brokerage Purchase And Sale Clerk Name Role Phone Angie Alonzo MD Primary Care Provider [phone] Encounter Details Date Type Department Care Team (Late st Contact Info) Description 02/28/2018 1:00 PM EDT [place] [address] Hira Jeff DO [facility] [place] [address] Nimco Mohan MD [facility] [place] [address] Solitary nodule of right lobe of thyroid [...] not have any complaints. Social Hx: From [facility] Family Hx: Sister lung ca Great [...] blood-glucose meter (FREESTYLE) Kit, 1 each by [facility].(Non-Drug; Combo Route) route as needed forOther., Disp: [...] highly suspicious for malignancy according to 2015 [place] Thy[employer] guidelines. At this time, Abimbola is not experiencing compressive symptoms due to the nodule. She is clinically euthyroid. #right lower lobe thyroid nodule -previous cytology AUS x2 -ThyGenX completed for second time today to further risk stratify nodule -will determine subsequent steps based upon ThyGenX results. Case discussed and seen with staff Origination Specialist Logan Jeff DO. Nimco Mohan MD PGY-4 [facility] Endocrinology Fellow Pager #[phone] * Nimco Mohan - 02/28/2018 1:00 PM [...] no immediate complications. 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
--- OUTSIDE RECORDS SUMMARY | 2024-08-12 10:30 | XMS_ITS | Encounter Summary ---
Author Organization [facility] [place] [address] Care Team Providers Care Office Technician Name Role Phone Angie Alonzo MD Primary Care Provider [phone] Reason for Visit * Reason Comments Follow Up Surgery Encounter Details Date Type Department Care Team (Late st Contact Info) Description 01/14/2018 10:30 AM EDT Office Visit General Surgery at [facility] [place] [address] Rajwinder Moore, LINDSEY History of breast cancer Social History Tobacco Use Types Packs/Day Years Used Date Smoking Tobacco: Never Smokeless Tobacco: Never Sex and Gender Information Value Date Recorded Sex Assigned at Not on file Gender Identity Not on file Sexual Orientation Not on file documented as of this encounter Progress Notes * Rajwinder Moore APRN - 01/14/2018 10:30 AM EDT Abimbola Dumas returns for surgical follow up. 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 Negative margins. Closest invasive 6mm cranial. Closest DCIS 0.5mm cranial 0 of 1 LNs positive cells,, ER+/WV+, Gki5Nhv-, pTNM: ---(m)T1b N0 (AJCC, 7th edition, 2010) [...] for left breast cancer IDC and DCIS ER+WV+HER2 neg s/p PM and oncolplasty and SLNB [...] breast documented in this encounter Care Teams Office Technician Relationship Specialty Start Date End Date Angie Alonzo MD [address] [place] [address] PCP - General Family Medicine 06/25/17 documented as of this encounter
--- OUTSIDE RECORDS SUMMARY | 2024-08-12 10:30 | XMS_ITS | Encounter Summary ---
Author Organization [facility] Address [facility] [place] [address] Care Team Providers Care Supervising Fire Marshal Name Role Phone Angie Alonzo MD Primary Care Provider [phone] Encounter Details Date Type Department Care Team (Latest Contact Info) Description 02/24/2019 Unscheduled Encounter Cardiac Surgery at [facility] [place] [address] Ryan Lynch MD Coronary artery disease of [place] heart with stable angina pectoris, unspecified [...] 8.78) performed by Ashley Farooq MD at [facility] MAIN OR ??? PRO BX/REMV, LYMPH NODE, DEEP AXILL Left 07/04/2017 BIOPSY OR EXCISION OF LYMPH NODE(S), OPEN, DEEP AXILLARY NODE(S) (WRVU 6.43) performed by Ashley Farooq MD at [facility] MAIN OR ??? PRO INTRAOP SENTINEL LYMPH ID W/DYE INJECTION Left 07/04/2017 INTRAOPERATIVE ID (MAPPING) SENTINEL LYMPH NODE,INCLUDES INJECTION (WRVU 2.5) performed by Ashley Farooq MD at [facility] MAIN OR ??? PRO MASTECTOMY, PARTIAL Left 07/04/2017 MASTECTOMY PARTIAL (WRVU 10.13) performed by Ashley Farooq MD at [facility] MAIN OR Family History: Family History [...] file Gets together: Not on file Attends taoism service: Not on file Active member of [...] 1:33 PM EDT Coronary artery disease of [place] heart with stable angina pectoris, unspecified vessel or lesion type @CABG,USING ARTERIAL GRAFT;SINGLE ARTERIAL GRAFT Routine 02/24/2019 1:33 PM EDT Coronary artery disease of [place] heart with stable angina pectoris, unspecified vessel or lesion type @CABG;3 VENOUS GRAFTS & ARTERIAL GRAFT Routine 02/24/2019 1:33 PM EDT Coronary artery disease of [place] heart with stable angina pectoris, unspecified [...] EDT) Glucose 106 65 - 199 mg/dL [facility] Comment:Diabetes: >=200 mg/d L plus symptoms Blood Urea Nitrogen 18 8 - 18 mg/dL [facility] Creatinine 0.53(L) 0.70 - 1.20 mg/dL [facility] Sodium 141 135 - 145 mmol/L [facility] Potassium 3.6 3.5 - 5.0 mmol/L [facility] Comment: Please note: ??Patients with WBC >100,000 may have falsely elevated Potassium levels. ??For accurate Potassium quantification in these patients send serum separator tube (gold top) for subsequent determinations. ??Contact the Clinical Chemistry Laboratory if there are any questions. Chloride 105 98 - 107 mmol/L [facility] Carbon Dioxide 23 22 - 31 mmol/L [facility] Anion Gap 13 5 - 15 mmol/L [facility] Calcium 9.3 8.5 - 10.5 mg/dL [facility] Est Glomerular Filtration Rate 93 >=60 mL/min/1. 73 m?? [facility] Comment: The eGFR was calculated using the CKD-EPI equation. As with all creatinine based estimates of kidney function, eGFR values calculated with the CKD-EPI equation are not accurate in patients with acute kidney failure, extremes of body mass or the acutely ill. http://[employer]/DHMCnkf eGFR 108 >=60 mL/min/1. 73 m?? [facility] Comment: The eGFR was calculated using the CKD-EPI equation. As with all creatinine based estimates of kidney function, eGFR values calculated with the CKD-EPI equation are not accurate in patients with acute kidney failure, extremes of body mass or the acutely ill. http://[employer]/DHMCnkf Blood specimen (specimen) 02/24/2019 3:52 PM EDT 02/24/2019 4:07 PM EDT Narrative Resulting Agency Comment Spec In Lab Ryan Lynch MD CHEMISTRY ORDERABLE S [facility] [place] [place] [address] documented in this encounter Visit Diagnoses Diagnosis Coronary artery disease of [place] heart with stable angina pectoris, unspecified vessel or lesion type Coronary artery disease of [place] heart with stable angina pectoris, unspecified vessel or lesion type documented in this encounter Care Teams Supervising Fire Marshal Relationship Specialty Start Date End Date Angie Alonzo MD [address] [place] [address] PCP - General Family Medicine 06/25/17 documented as of this encounter
--- OUTSIDE RECORDS SUMMARY | 2024-08-12 10:30 | XMS_ITS | Encounter Summary ---
Author Organization [facility] [place] [address] Care Team Providers Care Evaluation Advisor Name Role Phone Angie Alonzo MD Primary Care Provider Encounter Details Date Type Department Care Team (Late st Contact Info) Description 01/20/2019 11:00 AM EDT Office Visit Hematology and Oncology at [facility] [place] [address] Kalyan Damico MD Malignant neoplasm of upper-inner [...] of trips she has to make to [place]. I am willing to refer herto one of my colleagues at [facility], but she is not ready to request [...] or over the tamoxifen. Kalyan Damico MD facility assistant in Hematology-Oncology documented in this encounter Plan of Treatment Not on file documented as of this encounter Visit Diagnoses Diagnosis Malignant neoplasm of upper-inner quadrant of left breast in female, estrogen receptor positive documented in this encounter Care Teams Evaluation Advisor Relationship Specialty Start Date End Date Angie Alonzo MD [facility] [address] [facility] [address] [place] [address] PCP - General Family Medicine 06/25/17 documented as of this encounter
--- OUTSIDE RECORDS SUMMARY | 2024-08-12 10:30 | XMS_ITS | Encounter Summary ---
Author Organization [facility] Address [facility] [place] [address] Care Team Providers Care Occupational Health Nurse Name Role Phone Angie Alonzo MD Primary Care Provider [phone] Reason for Visit * Reason Onset Date Comments Other 02/25/[address] Encounter Details Date Type Department Care Team (Late st Contact Info) Description 02/25/2019 Telephone Cardiology at [place] [phone] Aileen Owens MD [facility] [place] [address] Other (copy of cath letter) Social History [...] from the original note were not included. [facility] Cardiovascular Medicine [address] [place] [address] AILEEN OWENS M.D. February 25, 2019 Will Magallon M.D. [address] [place] [address] Angie Alonzo M.D. [facility] Morales Reynolds, [address] [address] Re: Abimbola Dumas : 1945 Dear Porter, As you know, I saw your patient, Abimbola Dumas, in the Senior Clinical Consultant today for diagnostic catheterization. She is a [...] via my office. Sincerely, Aileen Owens M.D., [facility], [facility] Mounter Clarinetsmedical billing representative [facility] [employer] [facility] Director, Interventional Cardiology JTD/l cc: Ryan Lynch M.D. Enclosure documented in this encounter Plan of Treatment Not on file documented as of this encounter Visit Diagnoses Not on filedocumented in this encounter Care Teams Occupational Health Nurse Relationship Specialty Start Date End Date Angie Alonzo MD [address] [place] [address] [address] [place] [address] PCP - General Family Medicine 06/25/17 documented as of this encounter
--- OUTSIDE RECORDS SUMMARY | 2024-08-12 10:30 | XMS_ITS | Encounter Summary ---
Author Organization [facility] Address [facility] [place] [address] Care Team Providers Care Paper Folding Machine Operator Name Role Phone Angie Alonzo MD Primary Care Provider [phone] Encounter Details Date Type Department Care Team (Late st Contact Info) Description 01/20/2019 9:06 AM EDT - 01/20/2019 11:59 PM EDT Hospital Encounter Mammography/DXA at [facility] [place] [phone] Rajwinder Moore, LINDSEY History of breast cancer Discharge Disposition: Home [...] meter (FREESTYLE) Kit 1 each by [facility].(Non-Drug; Combo Route) route [...] MAMMO SCREENING CAD AND YAMIL BILATERAL Routine 01/20/2019 9:38 AM EDT History [...] below. ? Electronically signed by: Alona Nielsen [facility] ([phone]), at 01/20/2019 9:57 AM Rajwinder Moore APRN IMG MAMMO ORDERA BLES documented in this encounter Visit Diagnoses Diagnosis History of breast cancer Personal history of malignant neoplasm of breast documented in this encounter Care Teams Paper Folding Machine Operator Relationship Specialty Start Date End Date Angie Alonzo MD [address] [place] [address] PCP - General Family Medicine 06/25/17 documented as of this encounter
--- OUTSIDE RECORDS SUMMARY | 2024-08-12 10:30 | XMS_ITS | Encounter Summary ---
Author Organization [place] [address] Care Team Providers Care Bridge Ironworker Name Role Phone Angie Alonzo MD Primary Care Provider [phone] Encounter Details Date Type Department Care Team (Late st Contact Info) Description 09/16/2018 Orders Only [place]ematology [place] [address] Kalyan Damico MD Malignant neoplasm of upper-inner [...] positive documented in this encounter Care Teams Bridge Ironworker Relationship Specialty Start Date End Date Angie Alonzo MD [address] [place] [address] PCP - General Family Medicine 06/25/17 documented as of this encounter
--- OUTSIDE RECORDS SUMMARY | 2024-08-12 10:30 | XMS_ITS | Encounter Summary ---
Author Organization [facility] Address [facility] [place] [address] Care Team Providers Care Type Proof Reproducer Name Role Phone Angie Alonzo MD Primary Care Provider [phone] Encounter Details Date Type Department Care Team (Late st Contact Info) Description 02/24/2019 3:20 PM EDT Clinical Support Same Day at [facility] [place] [address] Social History Tobacco Use Types Packs/Day Years [...] on filedocumented in this encounter Care Teams Type Proof Reproducer Relationship Specialty Start Date End Date Angie Alonzo MD [address] [place] [address] PCP - General Family Medicine 06/25/17 documented as of this encounter
--- OUTSIDE RECORDS SUMMARY | 2024-08-12 10:30 | XMS_ITS | Encounter Summary ---
Author Organization [facility] Address [facility] [place] [address] Care Team Providers Care Electrical Systems Design Engineer Name Role Phone Angie Alonzo MD Primary Care Provider [phone] Encounter Details Date Type Department Care Team (Late st Contact Info) Description 12/17/2017 Telephone Endocrinology at [facility] [place] [phone] Malaika Prado LPN Social History Tobacco Use [...] with plan of care. Call transferred to statistical secretary 02/26/18 documented in this encounter Plan of Treatment Not on file documented as of this encounter Visit Diagnoses Not on filedocumented in this encounter Care Teams Electrical Systems Design Engineer Relationship Specialty Start Date End Date Angie Alonzo MD [address] [place] [address] PCP - General Family Medicine 06/25/17 documented as of this encounter
--- OUTSIDE RECORDS SUMMARY | 2024-08-12 10:30 | XMS_ITS | Encounter Summary ---
Author Organization [facility] Address [facility] [place] [address] Care Team Providers Care Pill Machine Operator Name Role Phone Angie Alonzo MD Primary Care Provider [phone] Encounter Details Date Type Department Care Team (Late st Contact Info) Description 04/10/2018 [place] [phone] Nimco Mohan MD [facility] [place] [address] Social History Tobacco Use Types Packs/Day Years [...] secretaries to schedule. Nimco Mohan MD PGY-4 [facility] Endocrinology Fellow Pager #[phone] documented in this encounter Plan of Treatment Not on file documented as of this encounter Visit Diagnoses Not on filedocumented in this encounter Care Teams Pill Machine Operator Relationship Specialty Start Date End Date Angie Alonzo MD [address] [place] [address] [address] [place] [address] PCP - General Family Medicine 06/25/17 documented as of this encounter
--- OUTSIDE RECORDS SUMMARY | 2024-08-12 10:30 | XMS_ITS | Encounter Summary ---
Author Organization [facility] [place] [address] Care Team Providers Care Compliance Vice President Name Role Phone Angie Alonzo MD Primary Care Provider [phone] Encounter Details Date Type Department Care Team (Late st Contact Info) Description 07/18/2018 10:30 AM EST Office Visit Hematology and Oncology at [facility] [place] [address] Kalyan Damico MD Malignant neoplasm of upper-inner [...] or over the tamoxifen. Kalyan Damico MD radiographic technologist in Hematology-Oncology documented in this encounter Plan of Treatment Not on file documented as of this encounter Visit Diagnoses Diagnosis Malignant neoplasm of upper-inner quadrant of left breast in female, estrogen receptor positive documented in this encounter Care Teams Compliance Vice President Relationship Specialty Start Date End Date Angie Alonzo MD [facility] [address] [facility] [place] [address] [place] [address] PCP - General Family Medicine 06/25/17 documented as of this encounter
--- OUTSIDE RECORDS SUMMARY | 2024-08-12 10:30 | XMS_ITS | Encounter Summary ---
Author Organization [facility] Address [facility] [place] [address] Care Team Providers Care Cone Marker Name Role Phone Angie Alonzo MD Primary Care Provider [phone] Encounter Details Date Type Department Care Team (Latest Contact Info) Description 07/18/2018 9:01 AM EST - 07/18/2018 11:59 PM EST Hospital Encounter Hematology and Oncology at [facility] [place] [address] Malignant neoplasm of upper-inner quadrant of left [...] blood-glucose meter (FREESTYLE) [facility]Non-Drug; Combo Route) route as needed for Other. [...] Protein, Total 6.4 6.1 - 8.0 gm/dL [facility] Albumin 3.9 3.2 - 5.2 gm/dL [facility] Aspartate Aminotransferase 19 0 - 30 unit/L [facility] Alanine Aminotransferase 17 0 - 30 unit/L [facility] Alkaline Phosphatase 60 40 - 104 unit/L [facility] Bilirubin, Total 0.3 0.2 - 1.3 mg/dL [facility] Bilirubin, Direct 0.1 0.0 - 0.3 mg/dL [facility] Blood specimen (specimen) 07/18/2018 9:10 AM EST 07/18/2018 9:25 AM EST Narrative Resulting Agency Comment Spec In Lab Kalyan Damico MD CHEMISTRY ORDERABLES Performing Organization Address City/State/[facility] Co de Phone Number [facility] [place] [address] documented in this encounter Visit Diagnoses Diagnosis Malignant neoplasm of upper-inner quadrant of left breast in female, estrogen receptor positive documented in this encounter Care Teams Cone Marker Relationship Specialty Start Date End Date Angie Alonzo MD [address] [place] [address] PCP - General Family Medicine 06/25/17 documented as of this encounter
--- OUTSIDE RECORDS SUMMARY | 2024-08-12 10:30 | XMS_ITS | Encounter Summary ---
Author Organization [facility] [place] [address] Care Team Providers Care Area Loss Prevention Manager Name Role Phone Angie Alonzo MD Primary Care Provider [phone] Reason for Visit * Reason Comments Follow-up Encounter Details Date Type Department Care Team (Late st Contact Info) Description 01/20/2019 10:15 AM EDT Office Visit General Surgery at [facility] [place] [address] Rajwinder Moore, LINDSEY History of breast cancer Social History Tobacco Use Types Packs/Day Years Used Date Smoking Tobacco: Never Smokeless Tobacco: Never Sex and Gender Information Value Date Recorded Sex Assigned at Not on file Gender Identity Not on file Sexual Orientation Not on file documented as of this encounter Progress Notes * Rajwinder Moore APRN - 01/20/2019 10:15 AM EDT Abimbola Dumas returns for surgical [...] cranial 0 of 1 LNs positive cells,, ER+/CT+, Ysu1Ujs-, pTNM: ---(m)T1b N0 (AJCC, 7th edition, 2010) [...] 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 [...] breast documented in this encounter Care Teams Area Loss Prevention Manager Relationship Specialty Start Date End Date Angie Alonzo MD [address] [place] [address] PCP - General Family Medicine 06/25/17 documented as of this encounter
--- OUTSIDE RECORDS SUMMARY | 2024-08-12 10:30 | XMS_ITS | Encounter Summary ---
Author Organization [facility] Address [facility] [place] [address] Care Team Providers Care Solar Mechanical Engineer Name Role Phone Angie Alonzo MD Primary Care Provider [phone] Reason for Visit * Auth/Cert Specialty Diagnoses [...] Expiration Date Visits Re quested Visits Authorized [id number] 1 1 Encounter Details Date Type Department Care Team (Late st Contact Info) Description 03/05/2019 7:32 AM EDT Anesthesia [place] [address] Bob Bolaños MD [facility] [place] [address] Maria Luz Sapp Anesthesia Record Procedure Summary Procedure Name Responsible Anesthesiologist Anesthesia Start Time Anesthesia Stop Time @CABG, USING ARTERIAL GRAFT;SINGLE ARTERIAL GRAFT (WRVU 33.75) (Chest) Bbo Bolaños MD 03/05/19 0732 03/05/19 1210 Events Date Time Event Comment 03/05/2019 0732 AN Verify 0732 Start 0732 An Start Data 0747 An Induction 0751 An Intubation 0802 Quick Note Unable to pass JONATHAN probe. 0810 Anesthesia Ready 0834 Sternotomy 0914 CV Bypass init 0922 An Clamp start 1040 Forging Press Setter Up 1050 An Clamp Remove 1055 CP Bypass [...] Tania Arroyo RN 02/26/22 1715 by Sonja eD Incision 09/10/17; 1500; neck ; laparoscopic puncture [...] 0723; metacarpal vein (top of hand), left; ulfg-olh-fqujze catheter system; 20 gauge, 1 in length; [...] by Ish Shaikh MD 03/05/19 175 by Joana Hairston, RT (RETIRED) Percutaneous Central Line - Single [...] Procedure Summary Date: 03/05/19 Room / Location: [facility] OR [address] [place] [address] MAIN OR Anesthesia Start: 731 Anesthesia Stop: 1210 Procedures: @CABG, USING ARTERIAL GRAFT;SINGLE ARTERIAL GRAFT (WRVU 33.75) (N/A Chest) @CABG; 3 VENOUS GRAFTS & ARTERIAL GRAFT (WRVU 10.49) (N/A ) ENDOSCOPIC HARVEST VEIN(S) FOR CABG (WRVU 0.31) (N/A Leg) Diagnosis: Coronary artery disease of galena heart with stable angina pectoris, unspecified vessel or lesion type (cad) Surgeon: yRan Lynch MD Responsible Provider: Bob Bolaños MD Anesthesia Type: general ASA Status: 3 All Anesthesia Providers: Anesthesiologist: Bob Bolaños MD Embedded Software Design Engineer: Ish Shaikh MD Vitals Value Taken Time BP Temp 35.2 ??C (95.4 ??F) 03/05/2019 12:04 PM Pulse 70 03/05/2019 12:24 PM Resp 16 03/05/2019 12:25 PM SpO2 100 % 03/05/2019 12:24 PM Pain Level 0 03/05/2019 12:04 PM Vitals shown include unvalidated device data. Patient Location: [facility] Level of Consciousness: Sedated (Pharmacologic/Intentional) Pain Management: PONV: Cardiovascular Status: Hypotension (received treatment) Respiratory Status: Intubated/Ventilated Postoperative Fluid Status: Possible Anesthetic Complications: NONE apparent at time of evaluation Final Primary Anesthesia Type: General (The anesthetic type performed was the same as planned.) Comments: Patient transported to [facility] without incident. * Anesthesia Preprocedure Evaluation [...] MD at [facility] MAIN OR Social History Tobacco Use [...] regular human VIAL injection PRN, Starting on Laawnda 03/05/19 at 1035, Until Lawanda 03/05/19 at [...] mg documented in this encounter Care Teams Solar Mechanical Engineer Relationship Specialty Start Date End Date Angie Alonzo MD [facility] [address] [place] [address] PCP - General Family Medicine 06/25/17 documented as of this encounter
--- OUTSIDE RECORDS SUMMARY | 2024-08-12 10:30 | XMS_ITS | Encounter Summary ---
Author Organization [facility] Address [facility] [place] [address] Care Team Providers Care Carton Waxing Machine Operator Name Role Phone Angie Alonzo MD Primary Care Provider [phone] Encounter Details Date Type Department Care Team (Late st Contact Info) Description 02/19/2019 Orders Only Cardiology at [address] [place] [address] Piotr Parr PA [facility] [place] [address] Abnormal stress test Social History Tobacco Use [...] Modality Other Narrative 02/25/2019 5:49 PM EDT ?[facility] ? Cardiac Catheterization/Intervention Report ? Patient Name: HOAR, ABIMBOLA M. ? Procedure Date: 02/24/2019 ? A #: [id number] ? Primary Physician: Maida, Sam T ? Case #: [id number] ? File Name: [id number] ? Catheterization Order Number: [id number] ? [facility] ? Final Report [place], [place] ? Patient Name: ? ABIMBOLA M. HOAR ?ID#: ?[id number] ? : ?1945 ? Procedure Date: ? February 24, 2019 ?Case #: ? [id number] ? Room: ? 6 ? Case Physician: [...] was designated as ASA Class ?III. The [facility] clinical frailty scale is 4: Vulnerable. ? [...] procedure was Elective. The indication for ?the starch factory laborer visit is suspected CAD. Chest pain symptom [...] Procedure Note Sam Bey MD - 05/04/2019 [facility] Cardiac Catheterization/Intervention Report Patient Name: ABIMBOLA JONES Procedure Date: 02/24/2019 A #: [id number] Primary Physician: Sam Bey Case #: [id number] File Name: [id number] Catheterization Order Number: [id number] [facility] FinalReport [place], [place] Patient Name: ABIMBOLA JONES ID#:[id number] :1945 Procedure Date: February 24, 2019 Case [...] patient was designated as ASAClass III. The [facility] clinical frailty scale is 4: Vulnerable. Diagnostic [...] diagnostic procedure was Elective. Theindication for the starch factory laborer visit is suspected CAD. Chest pain symptom [...] study documented in this encounter Care Teams Carton Waxing Machine Operator Relationship Specialty Start Date End Date Angie Alonzo MD [facility] [address] [facility] [address] [place] [address] PCP - General Family Medicine 06/25/17 documented as of this encounter
--- OUTSIDE RECORDS SUMMARY | 2024-08-12 10:30 | XMS_ITS | Encounter Summary ---
Author Organization [facility] Address [facility] [place] [address] Care Team Providers Care Movie Theater Usher Name Role Phone Angie Alonzo MD Primary Care Provider [phone] Encounter Details Date Type Department Care Team (Late st Contact Info) Description 02/24/2019 11:00 AM EDT - 02/24/2019 12:00 PM EDT [place] [address] Sam Bey MD [facility] CARDIOLOGY [place] [id number] CARDIAC CATHETERIZATION Social History Tobacco Use Types [...] by your doctor, do not take any kqiv-jeb-fhcxcis medicinesor herbal preparations without first discussing this with your doctor or pharmacist. There is the possibility of side effects and interactions when these are combined. Follow Up Care Who to call with questions or problems If there are any questions or problems that you think might be related to your cardiac cath or angioplasty, contact the roll line operator veterans contact representative by calling [facility] at . documented in this encounter [...] blood-glucose meter (FREESTYLE) Kit 1 each by [facility].(Non-Drug; Combo Route) route as needed for Other. [...] Procedure Note: Patient Name: Abimbola Dumas : [id number] MR#: [id number] Case Date: 02/24/2019 Clinical Abstractor: Surgeon(s) and Role: * Sam Bey MD [...] (Bezet) 431 ms MUSE SYSTEM Calculated P [place] 3 degrees MUSE SYSTEM Calculated R [place] -17 degrees MUSE SYSTEM Calculated T [place] -4 degrees MUSE SYSTEM INTERPRETATION Normal sinus rhythm Normal ECG No previous ECGs available Confirmed by MD Su, Vikram ([id number]) on 02/24/2019 11:19:55 AM MUSE SYSTEM 02/24/2019 9:58 AM EDT 02/24/2019 11:19 AM EDT Sam Bey MD ECG ORDERABLES MUSE SYSTEM * POCT Glucose (02/24/2019 9:45 AM EDT) Glucose, POC 121 65 - 199 mg/dL [facility] Comment: Supplemental ranges: <140 mg/dL before meals <180 mg/dL all other times of the day Blood specimen (specimen) 02/24/2019 9:45 AM EDT 02/24/2019 9:45 AM EDT Sam Bey MD POINT [place] [address] documented in this encounter Visit Diagnoses Diagnosis [...] MD) documented in this encounter Care Teams Movie Theater Usher Relationship Specialty Start Date End Date Angie Alonzo MD [facility] [address] [place] [address] PCP - General Family Medicine 06/25/17 documented as of this encounter
--- OUTSIDE RECORDS SUMMARY | 2024-08-12 10:30 | XMS_ITS | Encounter Summary ---
Author Organization [facility] Address [facility] [place] [address] Care Team Providers Care Tow Mate Name Role Phone Angie Alonzo MD Primary Care Provider [phone] Reason for Visit * Consultation (Routine) - Closed Specialty Diagnoses / Procedures Referred By Mima rivera Referred To Contact Endocrinology Diagnoses Thyroid nodule Malignant neoplasm of left female breast, unspecified estrogen receptor status, unspecified site of breast Bethany Merrill MD [facility] [place] [address] [facility] Endocrinology [address] [place] [address] Referral ID Status Reason Start Date Expiration Date V isits Requested Visits Authorized [id number] Closed Consult, Test & Treat 09/18/2017 09/18/2018 1 1 Encounter Details Date Type Department Care Team (Late st Contact Info) Description 11/21/2017 9:00 AM EDT Office [place] [address] Hira Jeff [facility] [place] [address] Thyroid nodule Social History Tobacco Use Types [...] handout upon completion. Hira Jeff DO, MS Telecommunications Managerhardwood floor installer Department of Medicine Section of Endocrinology [facility] * Hira Jeff DO - 11/21/2017 [...] of left breast in female, estrogen receptor vucauiibU25.212, Z17.0 Allergies Allergen Reactions ??? Penicillins Current [...] blood-glucose meter (FREESTYLE) Kit 1 each by [facility].(Non-Drug; Combo Route) route as needed for [...] with any questions. Hira Jeff DO, MS Telecommunications Managerhardwood floor installer Department of Medicine Section of Endocrinology [facility] cc: Angie Alonzo MD documented in this encounter Plan of Treatment Not on file documented as of this encounter Procedures Procedure Name Priority Date/Time Associated Diagnosis Comments NON-SYSTEM CONFIGURATION SPECIALIST FINAL REPORT Routine 11/21/2017 10:31 AM EDT CYTOPATHOLOGY NON-GYNECOLOGICAL Routine 11/21/2017 9:27 AM EDT Thyroid nodule documented in this encounter Results * Non-Instant Potato Processing Supervisor Final Report (11/21/2017 10:31 AM EDT) Diagnosis Discussion [id number] ? Location: 5C The signing pathologist has (i) examined the relevant preparation(s) for the specimen(s) and (ii) rendered or confirmed the diagnosis(es). . ? Addendum ADDENDUM DISCUSSION Test: ? ThyGenX Thyroid Oncogene Panel [facility] Case: ? [id number] Performing Lab: ? [facility] Performing Lab Case: ?[id number] Reported by: Ashley Castellanos MD Date reported: ? 04/09/2018 For the full text of the ThyGenX report, please refer to Non- Documentation Pathology in the electronic health record (eDH). Electronically signed by: ??Darius Kim MD Verified: ??04/10/2018 ?Pathologist Performed at: ??-[facility] Dept. of Pathology, [place], [place] ? Addendum ADDENDUM DISCUSSION Test: ThyGenx [facility] Case: [id number] Performing Lab: [email or web address] Performing Lab Case: [id number] Reported by Aletha Munoz MD Date reported: 12/11/2017 For the full text of the ThyGenX report, please refer to Non- Documentation Pathology in the electronic health record (eDH). Electronically signed by: ??Darius Kim MD Verified: ??12/19/2017 ?Pathologist Performed at: ??-[facility] Dept. of Pathology, [place], [place] ? Non-Instant Potato Processing Supervisor Final DIAGNOSIS Atypical Electronically signed by: ??Darius Kim MD Verified: ??11/24/2017 ?Pathologist Performed at: ??-[facility] Dept. of Pathology, [place], [place] DISCUSSION Thyroid, right (US-guided FNA): Atypia [...] indicated. Reference: Jim SAXENA, Lucy ES. The [place] System for Reporting Thyroid Cytopathology. [place]: [place]; 2018. . CLINICAL INFORMATION Specimen Source [...] for completed interpretation. 04/10/2018 5:07 PM EDT [facility] THYROID STRUCTURE / Unknown 11/21/2017 10:31 AM EDT 11/21/2017 10:31 AM EDT Hira Jeff DO PATHOLOGY/CYTOLOGY O RDERACLAUDIA Performing Organization Address [facility] Co de Phone Number [facility] [place] [address] * Cytopathology Non-Gynecological (11/21/2017 9:27 AM EDT) AP Specimen 11/21/2017 9:27 AM EDT 11/21/2017 9:27 AM EDT Narrative [facility] - 11/21/2017 9:27 AM EDT Specimen requisition ordered. ??Separate Pathology report to follow Hira Jeff DO PATHOLOGY/CYTOLOGY O RDERABLES Performing Organization Address [facility]/ZIP Co de Phone Number [facility] [place] [address] documented in this encounter Visit Diagnoses Diagnosis Thyroid nodule Nontoxic uninodular goiter documented in this encounter Care Teams Tow Mate Relationship Specialty Start Date End Date Angie Alonzo MD [address] [place] [address] PCP - General Family Medicine 06/25/17 documented as of this encounter
--- OUTSIDE RECORDS SUMMARY | 2024-08-12 10:30 | XMS_ITS | Encounter Summary ---
Author Organization [facility] Address [facility] [place] [address] Care Team Providers Care Capital Project Engineer Name Role Phone Angie Alonzo MD Primary Care Provider [phone] Encounter Details Date Type Department Care Team (Late st Contact Info) Description 01/14/2018 9:08 AM EDT - 01/14/2018 11:59 PM EDT Hospital Encounter Mammography at [place] [address] Ashley Farooq MD Malignant neoplasm of upper-outer quadrant of left [...] blood-glucose meter (FREESTYLE) [facility]Non-Drug; Combo Route) route as needed for [...] positive documented in this encounter Care Teams Capital Project Engineer Relationship Specialty Start Date End Date Angie Alonzo MD [address] [place] [address] PCP - General Family Medicine 06/25/17 documented as of this encounter
--- OUTSIDE RECORDS SUMMARY | 2024-08-12 10:30 | XMS_ITS | Encounter Summary ---
Author Organization [facility] [place] [address] Care Team Providers Care Medical Care Administrator Name Role Phone Angie Alonzo MD Primary Care Provider [phone] Encounter Details Date Type Department Care Team (Late st Contact Info) Description 12/17/2017 External [place] [address] Provider, Scanning Social History Tobacco Use Types [...] on filedocumented in this encounter Care Teams Medical Care Administrator Relationship Specialty Start Date End Date Angie Alonzo MD [address] [place] [address] PCP - General Family Medicine 06/25/17 documented as of this encounter
--- OUTSIDE RECORDS SUMMARY | 2024-08-12 10:30 | XMS_ITS | Encounter Summary ---
Author Organization [facility] Address [facility] [place] [address] Care Team Providers Care Elect Equip Maint Eng Name Role Phone Angie Alonzo MD Primary Care Provider [phone] Encounter Details Date Type Department Care Team (Latest Contact Info) Description 02/24/2019 9:22 AM EDT - 02/24/2019 2:42 PM EDT Hospital Encounter Same Day Program at [place] [phone] Sam Bey MD [facility] [place] [place] [address] Abnormal stress test Discharge Disposition: Still a [...] by your doctor, do not take any uduv-mjr-bktoxhd medicinesor herbal preparations without first discussing this with your doctor or pharmacist. There is the possibility of side effects and interactions when these are combined. Follow Up Care Who to call with questions or problems If there are any questions or problems that you think might be related to your cardiac cath or angioplasty, contact the road packer operator diamond wheel edger by calling [facility] at . documented in this encounter Medications [...] blood-glucose meter (FREESTYLE) Kit 1 each by [facility].(Non-Drug; Combo Route) route [...] Procedure Note: Patient Name: Abimbola Dumas : [id number] MR#: [id number] Case Date: 02/24/2019 Server Support Technician: Surgeon(s) and Role: * Sam Bey MD [...] 12 Lead (02/24/2019 9:58 AM EDT) Pathologist [facility] Ventricular rate 64 BPM MUSE SYSTEM Atrial Rate 64 BPM MUSE SYSTEM P-R Interval 174 ms MUSE SYSTEM QRS Duration 94 ms MUSE SYSTEM Q-T Interval 418 ms MUSE SYSTEM QTC Calculated (Bezet) 431 ms MUSE SYSTEM Calculated P [place] 3 degrees MUSE SYSTEM Calculated R [place] -17 degrees MUSE SYSTEM Calculated T [place] -4 degrees MUSE SYSTEM INTERPRETATION Normal sinus rhythm Normal ECG No previous ECGs available Confirmed by MD Su, Vikram ([id number]) on 02/24/2019 11:19:55 AM MUSE SYSTEM 02/24/2019 9:58 AM EDT 02/24/2019 11:19 AM EDT Sam Bey MD ECG ORDERABLES MUSE SYSTEM * POCT Glucose (02/24/2019 9:45 AM EDT) Pathologist [facility] Glucose, POC 121 65 - 199 mg/dL [facility] Comment: Supplemental ranges: <140 mg/dL before meals <180 mg/dL all other times of the day Blood specimen (specimen) 02/24/2019 9:45 AM EDT 02/24/2019 9:45 AM EDT Sam Bey MD POINT OF CARE TEST [place] [address] documented in this encounter Visit Diagnoses Diagnosis [...] Routine 1114 (Given - Provid er: Dina Huerat) midazolam (PF) (VERSED) multi-dose injection (CANCELED) ONCE PRN, Starting on Sat02/24/19 at 1102, Until Sat02/24/19 at 1451, Cath (Intra-Procedure), Routine 1102 (Given - Provid er: Noemi Osuna RN) nitroGLYcerin 100 mcg/mL intracoronary dilution (CANCELED) ONCE PRN, Starting on Sat02/24/19 at 1058, Until Sat02/24/19 at 1451, Cath (Intra-Procedure), Routine 1058 (Given - Provid er: Sam Bey MD) documented in this encounter Care Teams Elect Equip Maint Eng Relationship Specialty Start Date End Date Angie Alonzo MD [address] [place] [address] PCP - General Family Medicine 06/25/17 documented as of this encounter
--- OUTSIDE RECORDS SUMMARY | 2024-08-12 10:30 | XMS_ITS | Encounter Summary ---
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, unspecified vessel or lesion type DIFFERENTIAL, AUTOMATED Routine 02/24/2019 3:52 PM EDT 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, unspecified vessel or lesion type HC ANTIBODY DETECTION,CAPTURE-R Routine 02/24/2019 3:52 PM EDT 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, unspecified vessel or lesion type ABO/RH TYPING Routine 02/24/2019 3:52 PM EDT 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, unspecified vessel or lesion type HC CBC,PLT & AUTO DIFF Routine 02/24/2019 3:52 PM EDT 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, unspecified vessel or lesion type ANTIBODY SCREEN Routine 02/24/2019 3:52 PM EDT 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, unspecified vessel or lesion type HC VENIPUNCTURE Routine 02/24/2019 3:52 PM EDT 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, unspecified vessel or lesion type documented in this encounter Results * ABORH Recheck Status (02/24/2019 3:52 PM EDT) Pathologist [facility] ABORH Recheck Order Order Placed [facility] ABORH Type Recheck Complete [facility] Blood specimen (specimen) 02/24/2019 3:52 PM EDT 02/24/2019 4:01 PM EDT Narrative Resulting Agency Comment Spec In Lab Ryan Lynch MD BLOOD BANK LAB ANDRZEJ CADET [facility] [place] [address] * Antibody screen (02/24/2019 3:52 PM EDT) Pathologist [facility] Ab Screen Interp Negative [facility] Expires at [id number] on: 03/08/2019 [facility] Blood specimen (specimen) 02/24/2019 3:52 PM EDT 02/24/2019 4:01 PM EDT Narrative Resulting Agency Comment Spec In Lab Ryan Lynch MD BLOOD BANK LAB [employer]RZE[place] CADET [facility] [place] [address] * ABO/Rh Typing (02/24/2019 3:52 PM EDT) Pathologist [facility] ABORH Type O Neg [facility] Blood specimen (specimen) 02/24/2019 3:52 PM EDT 02/24/2019 4:01 PM EDT Narrative Resulting Agency Comment Spec In Lab Ryan Lynch MD BLOOD BANK LAB [facility] [place] [address] * Differential, Automated (02/24/2019 3:52 PM EDT) Neutrophil % 60.1 % [facility] Neutrophil Absolute 3.63 1.70 - 6.10 x10(3)/[facility] Lymph % 27.4 % [facility] Lymphocytes Abs 1.6 0.9 - 3.2 x10(3)/[facility] Monocyte % 10.0 % [facility] Monocyte Abs 0.6 0.3 - 0.9 x10(3)/[facility] Eos % 1.7 % [facility] Eosinophils Abs 0.1 0.0 - 0.4 x10(3)/[facility] Basophil % 0.5 % [facility] Baso Absolute 0.0 0.0 - 0.1 x10(3)/[facility] Immature Gran % 0.30 % [facility] Comment: Immature granulocytes(IG's)percentage and absolute count will include metamyelocytes, myelocytes, and promyelocytes. Blood smears from CBCs yielding IG's will be scanned manually for concordance. If this scan disagrees with the automated IG or if promyelocytes are noted, a manual differential will be performed. Immature Gran Absolute 0.02 0.00 - 0.04 x10(3)/[facility] Blood specimen (specimen) 02/24/2019 3:52 PM EDT 02/24/2019 4:07 PM EDT Narrative Resulting Agency Comment Spec In Lab Ryan Lynch MD HEMATOLOGY ORDERABL ES Performing Organization Address City/[facility]/ZIP Co de Phone Number [facility] [place] [address] * (ABNORMAL) Hemogram (02/24/2019 3:52 PM EDT) White Blood Cell 6.0 4.0 - 9.5 x10(3)/mc L [facility] Red Blood Cell 4.21 4.00 - 5.21 x10(6)/mc L [facility] Hemoglobin 13.1 11.7 - 15.5 gm/dL [facility] Hematocrit 39.8 35.7 - 45.8 % [facility] Mean Cell Volume 94.5(H) 82.6 - 94.4 fL [facility] Mean Cell Hemoglobin 31.1 27.1 - 32.0 pg [facility] Mean Cell Hemoglobin Concentration 32.9 31.7 - 35.0 gm/dL [facility] Platelet 277 145 - 357 x10(3)/mc L [facility] RDW Standard Deviation 47.8(H) 37.0 - 46.0 fL [facility] RDW coefficient of variation 13.9 11.5 - 14.1 % [facility] Mean Platelet Volume 8.7 7.6 - 12.9 fL [facility] NRBC% auto 0.0 % [facility] NRBC Absolute 0.000 0.000 - 0.000 x10(3)/mc L [facility] Blood specimen (specimen) 02/24/2019 3:52 PM EDT 02/24/2019 4:07 PM EDT Narrative Resulting Agency Comment Spec In Lab Ryan Lynch MD HEMATOLOGY ORDERABL ES Performing Organization Address City/[facility]/ZIP Co de Phone Number [facility] [place] [address] * (ABNORMAL) Basic Metabolic Panel (non-fasting) (02/24/2019 3:52 PM EDT) Glucose 106 65 - 199 mg/dL [facility] Comment:Diabetes: >=200 mg/d L plus symptoms Blood Urea Nitrogen 18 8 - 18 mg/dL [facility] Creatinine 0.53(L) 0.70 - 1.20 mg/dL [facility] Sodium 141 135 - 145 mmol/L [facility] Potassium 3.6 3.5 - 5.0 mmol/L [facility] Comment: Please note: ??Patients with WBC >100,000 may have falsely elevated Potassium levels. ??For accurate Potassium quantification in these patients send serum separator tube (gold top) for subsequent determinations. ??Contact the Clinical Chemistry Laboratory if there are any questions. Chloride 105 98 - 107 mmol/L [facility] Carbon Dioxide 23 22 - 31 mmol/L [facility] Anion Gap 13 5 - 15 mmol/L [facility] Calcium 9.3 8.5 - 10.5 mg/dL [facility] Est Glomerular Filtration Rate 93 >=60 mL/min/1. 73 m?? [facility] Comment: The eGFR was calculated using the CKD-EPI equation. As with all creatinine based estimates of kidney function, eGFR values calculated with the CKD-EPI equation are not accurate in patients with acute kidney failure, extremes of body mass or the acutely ill. [email or web address] eGFR 108 >=60 mL/min/1. 73 m?? [facility] Comment: The eGFR was calculated using the CKD-EPI equation. As with all creatinine based estimates of kidney function, eGFR values calculated with the CKD-EPI equation are not accurate in patients with acute kidney failure, extremes of body mass or the acutely ill. [email or web address] Blood specimen (specimen) 02/24/2019 3:52 PM EDT 02/24/2019 4:07 PM EDT Narrative Resulting Agency Comment Spec In Lab Ryan Lynch MD CHEMISTRY ORDERABLE S [facility] [place] [address] documented in this encounter Visit Diagnoses Diagnosis 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, unspecified vessel or lesion type documented in this encounter Care Teams Storeroom Supervisor Relationship Specialty Start Date End Date Angie Alonzo MD [facility] [address] [facility] [address] [place] [address] PCP - General Family Medicine 06/25/17 documented as of this encounter
--- OUTSIDE RECORDS SUMMARY | 2024-08-12 10:30 | XMS_ITS | Encounter Summary ---
Author Organization [facility] [place] [address] Care Team Providers Care Maintenance Supervisor Name Role Phone Angie Alonzo MD Primary Care Provider [phone] Reason for Visit * Reason Comments Radiation Follow-up breast cancer Encounter Details Date Type Department Care Team (Late st Contact Info) Description 02/19/2019 10:30 AM EDT Office Visit Radiation Oncology at [address] [phone] Iris Chon APRN Breast cancer, stage 1, estrogen receptor positive, [...] in this encounter Progress Notes * Iris Cohn APRN - 02/19/2019 10:30 AM EDT Patient ID: Abimbola Dumas is a 73 y.o. female completed xrt on 09/02/17 to a dose of 52.56 Gy for L breast ca, IDC, low gr, ER+NY+, Her2 neg, s/p lumpectomy & SNB, pT1b pN0, stage I. She was started on hormone therapy post completion of radiation therapy. She is in clinic for scheduled follow-up. ?? HPI 71 y/o f who presented w/L breast abnlty on screening mmg. ?? 11/06/16 B screening mmg ([facility]): Questionable increased density medial subareolar [...] core bx. ?? Path: IDC, low gr, ER+NY+, Her2 FISH neg. ?? 06/19/17 eval by [...] by Dr Farooq Axillary lymph node Management [place] nodes alone Total Number of Nodes Removed [...] Grade low Margin negative ER-estrogen receptor positive [place]--progesterone receptor positive HER-2/FISH negative Endocrine Therapy Recommended for Hormone Sensitive Invasive Tumor yes First Adjuvant Endocrine Therapy Tamoxifen Dates of radiation 08/05/17 through 09/02/2017 Radiation [place] Protocol Radiation Boost yes Total Dosage of [...] of left breast in female, estrogen receptor qicghekrT77.212, Z17.0 Past Surgical History: Procedure Laterality Date [...] 8.78) performed by Ashley Farooq MD at [facility] MAIN OR ??? PRO BX/REMV, LYMPH NODE, DEEP AXILL Left 07/04/2017 BIOPSY OR EXCISION OF LYMPH NODE(S), OPEN, DEEP AXILLARY NODE(S) (WRVU 6.43) performed by Ashley Farooq MD at [facility] MAIN OR ??? PRO INTRAOP SENTINEL LYMPH ID W/DYE INJECTION Left 07/04/2017 INTRAOPERATIVE ID (MAPPING) SENTINEL LYMPH NODE,INCLUDES INJECTION (WRVU 2.5) performed by Ashley Farooq MD at [facility] MAIN OR ??? PRO MASTECTOMY, PARTIAL Left 07/04/2017 MASTECTOMY PARTIAL (WRVU 10.13) performed by Ashley Farooq MD at [facility] MAIN OR Review and update of social [...] none Activity/exercise Going to pool at the [facility] and walks Does water therapy at the [facility] --50-60 min 2-3 times a week Hormone therapy side effects None [facility] Will hold GOLDBERG prior to hip surgery [...] and ECHO and to be seen at [facility] to see if needs stent Gastrointestinal: Negative. Genitourinary: Negative. Musculoskeletal: Positive for arthralgias. Does pool therapy To have left hip replacement when cleared by cardiology Skin: Negative. Neurological: Negative. Negative for dizziness, weakness and headaches. Hematological: Bruises/bleeds easily. Psychiatric/Behavioral: Greiving of who in Aug from dementia Has emergency alert system Vitals Office Visit from 02/19/2019 in Radiation Oncology at [facility] Weight 97.7 kg (215 lb 6.4 oz) [...] for L breast ca, IDC, low gr, ER+[place]+, Her2 neg, s/p lumpectomy & SNB, pT1b [...] left documented in this encounter Care Teams Maintenance Supervisor Relationship Specialty Start Date End Date Angie Alonzo MD [address] [place] [address] PCP - General Family Medicine 06/25/17 documented as of this encounter
--- OUTSIDE RECORDS SUMMARY | 2024-08-12 10:30 | XMS_ITS | Encounter Summary ---
Author Organization [facility] Address [facility] [place] [address] Care Team Providers Care Raw Stock Machine Loader Name Role Phone Angie Alonzo MD Primary Care Provider [phone] Encounter Details Date Type Department Care Team (Late st Contact Info) Description 12/17/2017 External [place] [phone] Provider, Scanning Social History Tobacco Use Types [...] on filedocumented in this encounter Care Teams Raw Stock Machine Loader Relationship Specialty Start Date End Date Angie Alonzo MD [address] [place] [address] PCP - General Family Medicine 06/25/17 documented as of this encounter
--- OUTSIDE RECORDS SUMMARY | 2024-08-12 10:30 | XMS_ITS | Encounter Summary ---
Author Organization [facility] Address [facility] [place] [address] Care Team Providers Care Scaffold Erector Name Role Phone Angie Alonzo MD Primary Care Provider [phone] Encounter Details Date Type Department Care Team (Late st Contact Info) Description 12/03/2017 Telephone Endocrinology at [facility] [place] [phone] Malaika Prado LPN Social History Tobacco Use [...] on filedocumented in this encounter Care Teams Scaffold Erector Relationship Specialty Start Date End Date Angie Alonzo MD [address] [place] [address] PCP - General Family Medicine 06/25/17 documented as of this encounter
--- OUTSIDE RECORDS SUMMARY | 2024-08-12 10:30 | XMS_ITS | Encounter Summary ---
Author Organization [facility] [place] [address] Care Team Providers Care Clerk Supervisor Name Role Phone Angie Alonzo MD Primary Care Provider [phone] Encounter Details Date Type Department Care Team (Late st Contact Info) Description 09/16/2018 Orders Only [place]ematology [place] [phone] Kalyan Damico MD Malignant neoplasm of upper-inner [...] positive documented in this encounter Care Teams Clerk Supervisor Relationship Specialty Start Date End Date Angie Alonzo MD [address] [place] [address] PCP - General Family Medicine 06/25/17 documented as of this encounter
--- OUTSIDE RECORDS SUMMARY | 2024-08-12 10:30 | XMS_ITS | Encounter Summary ---
Author Organization [facility] Address [facility] [place] [address] Care Team Providers Care Insurance Loss Control Surveyor Name Role Phone Angie Alonzo MD Primary Care Provider [phone] Encounter Details Date Type Department Care Team (Late st Contact Info) Description 04/10/2018 External [place] [phone] Provider, Scanning Social History Tobacco Use Types [...] filedocumented in this encounter Care Teams Insurance Loss Control Surveyor Relationship Specialty Start Date End Date Angie Alonzo MD [address] [place] [address] PCP - General Family Medicine 06/25/17 documented as of this encounter
--- OUTSIDE RECORDS SUMMARY | 2024-08-12 10:30 | XMS_ITS | Encounter Summary ---
Author Organization [facility] [place] [address] Care Team Providers Care Atomizer Assembler Name Role Phone Angie Alonzo MD Primary Care Provider [phone] Encounter Details Date Type Department Care Team (Late st Contact Info) Description 01/14/2018 11:00 AM EDT Office Visit Hematology and Oncology at [facility] [place] [address] Kalyan Damico MD Malignant neoplasm of upper-inner [...] cm from the nipple. 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 Kalyan Damico MD title attorney in Hematology-Oncology documented in this encounter Plan of Treatment Not on file documented as of this encounter Results * Hepatic Function Panel (07/18/2018 9:10 AM EST) Protein, Total 6.4 6.1 - 8.0 gm/dL [facility] Albumin 3.9 3.2 - 5.2 gm/dL [facility] Aspartate Aminotransferase 19 0 - 30 unit/L [facility] Alanine Aminotransferase 17 0 - 30 unit/L [facility] Alkaline Phosphatase 60 40 - 104 unit/L [facility] Bilirubin, Total 0.3 0.2 - 1.3 mg/dL [facility] Bilirubin, Direct 0.1 0.0 - 0.3 mg/dL [facility] Blood specimen (specimen) 07/18/2018 9:10 AM EST 07/18/2018 9:25 AM EST Narrative Resulting Agency Comment Spec In Lab Kalyan Damico MD CHEMISTRY ORDERABLES [facility] [place] [address] documented in this encounter Visit Diagnoses Diagnosis Malignant neoplasm of upper-inner quadrant of left breast in female, estrogen receptor positive documented in this encounter Care Teams Atomizer Assembler Relationship Specialty Start Date End Date Angie Alonzo MD [address] [facility] [address] [place] [address] PCP - General Family Medicine 06/25/17 documented as of this encounter
--- OUTSIDE RECORDS SUMMARY | 2024-08-12 10:30 | XMS_ITS | Encounter Summary ---
Author Organization [facility] Address [facility] [place] [address] Care Team Providers Care Camera Repair Technician Name Role Phone Angie Alonzo MD Primary Care Provider [phone] Reason for Visit * Reason Comments Radiation Follow-up Encounter Details Date Type Department Care Team (Late st Contact Info) Description 06/09/2018 1:00 PM EST Office Visit Radiation Oncology at [address] [phone] Bethany eMrrill MD [facility] [place] [address] Malignant neoplasm of left breast in female, [...] breast for breast ca, IDC, low gr, ER+[place]+, Her2 neg, s/p lumpectomy & SNB, pT1b [...] 8.78) performed by Ashley Farooq MD at [facility] MAIN OR ??? PRO BX/REMV, LYMPH NODE, DEEP AXILL Left 07/04/2017 BIOPSY OR EXCISION OF LYMPH NODE(S), OPEN, DEEP AXILLARY NODE(S) (WRVU 6.43) performed by Ashley Farooq MD at [facility] MAIN OR ??? PRO INTRAOP SENTINEL LYMPH ID W/DYE INJECTION Left 07/04/2017 INTRAOPERATIVE ID (MAPPING) SENTINEL LYMPH NODE,INCLUDES INJECTION (WRVU 2.5) performed by Ashley Farooq MD at [facility] MAIN OR ??? PRO MASTECTOMY, PARTIAL Left 07/04/2017 MASTECTOMY PARTIAL (WRVU 10.13) performed by Ashley Farooq MD at [facility] MAIN OR R breast lumpectomy [...] breast documented in this encounter Care Teams Camera Repair Technician Relationship Specialty Start Date End Date Angie Alonzo MD [address] [place] [address] [address] [place] [address] PCP - General Family Medicine 06/25/17 documented as of this encounter
--- OUTSIDE RECORDS SUMMARY | 2024-08-12 10:30 | XMS_ITS | Encounter Summary ---
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, unspecified vessel [...] blood-glucose meter (FREESTYLE) Kit 1 each by [facility]Non-Drug; Combo [...] 4:13 PM EDT Coronary artery disease of [place] heart with stable angina pectoris, unspecified vessel [...] Visit Diagnoses Diagnosis Coronary artery disease of [place] heart with stable angina pectoris, unspecified vessel or lesion type documented in this encounter Care Teams Set Making Machine Operator Relationship Specialty Start Date End Date Angie Alonzo MD [address] [place] [address] PCP - General Family Medicine 06/25/17 documented as of this encounter
--- OUTSIDE RECORDS SUMMARY | 2024-08-12 10:30 | XMS_ITS | Encounter Summary ---
Author Organization [facility] Address [facility] [place] [address] Care Team Providers Care Sas Statistical Programmer Name Role Phone Angie Alonzo MD Primary Care Provider [phone] Reason for Visit * Reason Onset Date Comments Pharmacy Call 09/16/2018 pt's choice of p harmacy Encounter Details Date Type Department Care Team (Late st Contact Info) Description 09/16/2018 Telephone Hematology and Oncology at [facility] [place] [phone] Sue Atwood RN Pharmacy Call (pt's choice [...] asked me to refill her tamoxifen through [facility] in [facility] or about September 16, but I cannot find this pharmacy listed, and her chart says that her prescriptions should be filled through [facility]. Could you please call her and find out where the tamoxifen refill should be sent? T/C to Patient: Called patient, left [id number] Patient returned call and her scripts should now go to [facility]. documented in this encounter Plan of Treatment Not on file documented as of this encounter Visit Diagnoses Not on filedocumented in this encounter Care Teams Sas Statistical Programmer Relationship Specialty Start Date End Date Angie Alonzo MD [address] [facility] [place] [address] PCP - General Family Medicine 06/25/17 documented as of this encounter
--- OUTSIDE RECORDS SUMMARY | 2024-08-12 10:30 | XMS_ITS | Encounter Summary ---
Author Organization [facility] Address [facility] [place] [address] Care Team Providers Care Data Migration Lead Name Role Phone Angie Alonzo MD Primary Care Provider Reason for Visit * Auth/Cert Specialty Diagnoses [...] Expiration Date Visits Re quested Visits Authorized [id number] 1 1 Encounter Details Date Type Department Care Team (Late st Contact Info) Description 03/05/2019 7:30 AM EDT - 03/05/2019 11:16 AM EDT [place] [id number] Ryan Lynch MD @CABG, USING ARTERIAL GRAFT;SINGLE [...] Patient Age: 73 y.o. Birthdate: 1945 Language: French Race: White Ethnicity: Not nor Admit Date: [...] with CXR, EKG. Inpatient Provider Contact Information: [facility] Section of Cardiac Surgery [facility] [address] FAX [phone] Discharge Diagnoses (Hospital Problems) Primary Diagnoses: CAD [...] 8.78) performed by Ashley Farooq MD at [facility] MAIN OR ??? PRO BX/REMV, LYMPH NODE, DEEP AXILL Left 07/04/2017 BIOPSY OR EXCISION OF LYMPH NODE(S), OPEN, DEEP AXILLARY NODE(S) (WRVU 6.43) performed by Ashley Farooq MD at [facility] MAIN OR ??? PRO CABG, ARTERIAL, SINGLE N/A 03/05/2019 @CABG, USING ARTERIAL GRAFT;SINGLE ARTERIAL GRAFT (WRVU 33.75) performed by Ryan Lynch MD at [facility] OR ??? PRO CABG, ARTERY-VEIN, THREE N/A 03/05/2019 @CABG; 3 VENOUS GRAFTS & ARTERIAL GRAFT (WRVU 10.49) performed by Ryan Lynch MD at [facility] OR ??? PRO ENDOSCOPY W/VIDEO-ASST VEIN HARVEST, CABG N/A 03/05/2019 ENDOSCOPIC HARVEST VEIN(S) FOR CABG (WRVU 0.31) performed by Ryan Lynch MD at [facility] MAIN OR ??? PRO INTRAOP SENTINEL LYMPH ID W/DYE INJECTION Left 07/04/2017 INTRAOPERATIVE ID (MAPPING) SENTINEL LYMPH NODE,INCLUDES INJECTION (WRVU 2.5) performed by Ashley Farooq MD at [facility] MAIN OR ??? PRO MASTECTOMY, PARTIAL Left 07/04/2017 MASTECTOMY PARTIAL (WRVU 10.13) performed by Ashley Farooq MD at [facility] MAIN OR Prior To Admission Medications [...] blood-glucose meter (FREESTYLE) Kit 1 each by [facility].(Non-Drug; Combo Route) route as needed for Other. Taking at Unknown time Updated Allergies/ADRs: Allergies Allergen Reactions ??? Penicillins History of Presentation: Abimbola Dumas??is a 73 y.o.??year old female??who was seeking clearance for a hip replacement. ??Due to her history she was given a stress test that was postitive. Major Procedures/Operations: 03/05/2019: CABGx4 Hospital Course: s/p CABGx4 Abimbola Dumas was admitted to [facility] on 03/05/2019 via the Same Day [...] Ryan Lynch and/or the Cardiac Surgery Physician Decating Machine Operator Team may be reached at . Weight: [...] Dr. Ryan Casas. You may use a [place] or treadmill but avoid any pulling [...] friends, go to a movie, go to anabaptist, etc. Heavy activities: No hunting, skiing, jogging, [...] should resume a low fat, low cholesterol, [employer] Diet/Diabetic diet. Driving: No driving [...] the outpatient Phase 2 Cardiac Rehabilitation at [facility] . The patient agrees to a referral to this program. The referral will be sent at discharge and the patient should be contacted by the Program within 1- 2 weeks from discharge. ?? Of note, this patient will be staying with her son in [place], [place] for a 2-3 weeks at discharge before returning to home. Future Appointments and Orders Future Appointments and Orders Future Appointments Provider Department Dept Phone 04/17/2019 9:00 AM Nimco Mohan MD Endocrinology at [facility] Arrive at: Lunchroom Aide Area [phone] 04/17/2019 9:00 AM ULTRASOUND, ENDO/RHEUM Endocrinology at [facility] Arrive at: Lunchroom Aide Area [phone] Future Orders Complete By Expires XR Chest PA & Lateral (Generic) [[id number] Custom] 04/08/2019 (Approximate) 10/08/2019 Process Instructions: Scheduling Instructions: Questions: Where will study be performed?: [facility] Radiology Portable exam?: Reason for exam and clinical history: s/p CABGx4 Other pertinent information: Stat read required?: Date of injury if applicable: Requested Time: EKG 12 Lead [00872 CPT(R)] As directed Process Instructions: Scheduling Instructions: Questions: Which location will this be performed?: [place] Is a rhythm strip needed?: No Referral to Cardiac Rehab [TBU455 Custom] As directed Process Instructions: If no progress note charted, please enter Clinical details in comments. Scheduling Instructions: Questions: My question or request is: s/p CABG. Cardiac rehab at [facility] Referral to Home Health - at DISCHARGE [AIO0383 CPT(R)] As directed Process Instructions: Scheduling Instructions: Comments: DOCUMENTATION FOR VNA SERVICES (INCLUDING THOSE PATIENTS WITH MEDICARE COVERAGE REQUIRING HOME VNA SERVICES AND/OR HOSPICE SERVICES) PATIENT'S LOCATION: Abimbola Dumas [address] [facility] [address] (home) No relevant phone numbers on file. [address] [place] [address] Data Processing Systems Consultant's Name: patient and son. In discussion with the attending physician, it is certified that this patient is under their care and that they, or a Nurse Practitioner, or Physician Decating Machine Operator who is working directly with them, hada [...] for services as follows: HOME HEALTH AGENCY: [facility] PHONE: [phone] FAX: [phone] RN orders: Cardiopulmonary assessment, incisional assessment, assess [...] issues please call the Cardiac SurgeryOffice at [phone] FOR MEDICARE ONLY: (please delete this section [...] noted. Questions: Agency name and contact information: [facility] Patient location post discharge: home What services are requested: Registered Nurse Physical Therapy Occupational Therapy Start date: Responsible MD post discharge contact info: pcp Arrangements for VNA/home care: As above. VN RN OR PCP TO PLEASE REMOVE CHEST TUBE SUTURES ON OR AFTER (03/15/19) Signed: DUDLEY Woodard [facility] Section of Cardiac Surgery [facility] [phone] FAX [phone] Date: 03/09/2019 CC: MD Sherita Garcia Anil K, MD [address] [place] [phone] documented in this encounter Discharge Instructions * [...] Ryan Lynch and/or the Cardiac Surgery Physician Decating Machine Operator Team may be reached at . Weight: [...] Dr. Ryan Casas. You may use a [place] Track or treadmill but avoid any pulling [...] friends, go to a movie, go to anabaptist, etc. Heavy activities: No hunting, skiing, jogging, [...] should resume a low fat, low cholesterol, [employer] Diet/Diabetic diet. Driving: No driving [...] the outpatient Phase 2 Cardiac Rehabilitation at [facility] . The patient agrees to a referral to this program. The referral will be sent at discharge and the patient should be contacted by the Program within 1- 2 weeks from discharge. ?? Of note, this patient will be staying with her son in [place], [place] for a 2-3 weeks at discharge [...] blood-glucose meter (FREESTYLE) Kit 1 each by [facility].(Non-Drug; Combo Route) route as needed for Other. [...] 3:15 PM EDT D/c summary faxed to [facility]. Pt went home with family. * Bethany Servin RN - 03/09/2019 2:26 PM EDT The patient/retention representative has been provided a list of Home Health Agencies/DME vendors which servetheir preferred geographic area. A letter describing our affiliations was reviewed with them and they were educated about their right to choose where referrals are placed. Patient requests referral to [facility] PHONE: [phone] FAX: [phone] Expected date of discharge: 03/09/2019 Referral routed to the [employer] for matching with agency/vendor and to provide [...] plan as stated. Time IN / OUT: 0341-3269 Total Evaluation Minutes, Physical Therapy: 32(TEF, LILY) [...] of left breast in female, estrogen receptor [id number]/28/2017 Reason for Nutrition Intervention: Diagnosis Diet Order: [facility] Appetite: Improving appetite per patient Food [...] consulted in the interim. SELENE Aguilar Pager #[phone] * Lexii Thomas, AVIATION ELECTRONICS TECHNICIAN - 03/08/2019 10:15 AM EDT Cardiac Surgery Progress Note: ID: [id number] 73 yo F 3 Days Post-Op cabg [...] rounds Dr. Renee THOMAS, LINDSEY Cardiac surgery p.333 * Santos Rao MD - 03/07/2019 7:57 AM EDT Cardiac Surgery Progress Note: ID: [id number] 73 yo F pod 1 sp cabg [...] Gas) No results found for: PHART, PO2ART, IPY6SQX Assessment/Plan: 73 y.o. female 2 Days Post-Op [...] AM EDT Cardiac Surgery Progress Note: ID: [id number] 73 yo F pod 1 sp cabg [...] 8.78) performed by Ashley Farooq MD at [facility] OR ??? PRO BX/REMV, LYMPH NODE, DEEP AXILL Left 07/04/2017 ?? BIOPSY OR EXCISION OF LYMPH NODE(S), OPEN, DEEP AXILLARY NODE(S) (WRVU 6.43) performed by Ashley Farooq MD at [facility] OR ??? PRO INTRAOP SENTINEL LYMPH ID W/DYE INJECTION Left 07/04/2017 ?? INTRAOPERATIVE ID (MAPPING) SENTINEL LYMPH NODE,INCLUDES INJECTION (WRVU 2.5) performed by Ashley Farooq MD at [facility] OR ??? PRO MASTECTOMY, PARTIAL Left 07/04/2017 ?? MASTECTOMY PARTIAL (WRVU 10.13) performed by Ashley Farooq MD at [facility] OR ? Family History: Family??History Family [...] Gets together: Not on file ? Attends mandaen service: Not on file ? Active member [...] 8.78) performed by Ashley Farooq MD at [facility] MAIN OR ??? PRO BX/REMV, LYMPH NODE, DEEP AXILL Left 07/04/2017 ?? BIOPSY OR EXCISION OF LYMPH NODE(S), OPEN, DEEP AXILLARY NODE(S) (WRVU 6.43) performed by Ashley Farooq MD at [facility] MAIN OR ??? PRO INTRAOP SENTINEL LYMPH ID W/DYE INJECTION Left 07/04/2017 ?? INTRAOPERATIVE ID (MAPPING) SENTINEL LYMPH NODE,INCLUDES INJECTION (WRVU 2.5) performed by Ashley Farooq MD at [facility] OR ??? PRO MASTECTOMY, PARTIAL Left 07/04/2017 ?? MASTECTOMY PARTIAL (WRVU 10.13) performed by Ashley Farooq MD at [facility] MAIN OR ? Family History: Family??History [...] Gets together: Not on file ? Attends mandaen service: Not on file ? Active member [...] Harris RN - 03/09/2019 10:21 AM EDT [facility] CARDIAC REHABILITATION Abimbola Dumas was seen today regarding participation in the outpatient Phase 2 Cardiac Rehabilitation at [facility] . The patient agrees to a referral to this program. The referral will be sent at discharge and the patient should be contacted by the Program within 1- 2 weeks from discharge. Of note, this patient will be staying with her son in [place], [place] for a 2-3 weeks at discharge [...] 8.78) performed by Ashley Farooq MD at [facility] MAIN OR ??? PRO BX/REMV, LYMPH NODE, DEEP AXILL Left 07/04/2017 BIOPSY OR EXCISION OF LYMPH NODE(S), OPEN, DEEP AXILLARY NODE(S) (WRVU 6.43) performed by Ashley Farooq MD at [facility] OR ??? PRO CABG, ARTERIAL, SINGLE N/A 03/05/2019 @CABG, USING ARTERIAL GRAFT;SINGLE ARTERIAL GRAFT (WRVU 33.75) performed by Ryan Lynch MD at [facility] OR ??? PRO CABG, ARTERY-VEIN, THREE N/A 03/05/2019 @CABG; 3 VENOUS GRAFTS & ARTERIAL GRAFT (WRVU 10.49) performed by Ryan Lynch MD at [facility] OR ??? PRO ENDOSCOPY W/VIDEO-ASST VEIN HARVEST, CABG N/A 03/05/2019 ENDOSCOPIC HARVEST VEIN(S) FOR CABG (WRVU 0.31) performed by Ryan Lynch MD at [facility] OR ??? PRO INTRAOP SENTINEL LYMPH ID W/DYE INJECTION Left 07/04/2017 INTRAOPERATIVE ID (MAPPING) SENTINEL LYMPH NODE,INCLUDES INJECTION (WRVU 2.5) performed by Ashley Farooq MD at [facility] OR ??? PRO MASTECTOMY, PARTIAL Left 07/04/2017 MASTECTOMY PARTIAL (WRVU 10.13) performed by Ashley Farooq MD at [facility] OR Social History: Pt lives alone in [...] Pt seen for evaluation today in the [facility]. Pt up in the chair at [...] Evaluation Minutes, Physical Therapy: 25(eval) Time IN/OUT: 6045-9023 BUDDY BARR, PT Pager: [phone] Physical Therapy Inpatient Rehabilitation Department * Initial [...] Insurance: AARP Prescription Coverage: yes Preferred Pharmacy: [place], [place] Primary Care Provider: Angie Alonzo MD [phone] Patient/Caregiver Goals of Treatment: to return home Potential Needs for Transition of Care: Rehab/SNF: may needs since she came in originally for a hip replacement [facility] of her [...] of care planning. Savage Lobo RN Pager: [phone] * Care Management - Savage Lobo RN - 03/06/2019 2:14 PM EDT The patient/retention representative has been provided a list of Home Health Agencies/DME vendors which servetheir preferred geographic area. A letter describing our affiliations was reviewed with them and they were educated about their right to choose where referrals are placed. Patient requests referral to :: [facility] [employer] [facility] PHONE: [phone] FAX: [phone] Expected date of discharge: next 2-3 days Referral routed to the [employer] for matching with agency/vendor and to provide any required information. * Op Note - Ryan Lynch MD - 03/05/2019 1:56 PM EDT 03/05/2019 Abimbola Dumas 1945 [id number] Preoperative Diagnosis: Coronary artery disease Stable Angina Postoperative Diagnosis: Coronary artery diseaseStable Angina Procedure: CABG times 4: SAM to LAD, SVG to om, svg to diag, svg to pda. Endoscopic vein harvest Surgeon: Ryan Lynch M.D. Decating Machine Operator: Giancarlo Anesthesia: General endotracheal anesthesia Drains: Two [...] the medial aspect of the knee. The VisiQuateView XB7 system was used to dissect out [...] Operative Note Patient Name: Abimbola Dumas : [id number] MR#: [id number] Case Date: 03/05/2019 Surgeon: Surgeon(s) and Role: * Ryan Lynch MD - Primary * Job Ferraro PA - Physician Decating Machine Operator Preoperative diagnosis: cad Postoperative diagnosis: cad Procedure(s) [...] 9 8:32 AM EDT Endoscopy W/Video-Asst Vein [place], Cabg ([id number]) 03/05/2019 7:29 AM EDT Coronary artery disease of curyung heart with stable angina pectoris, unspecified vessel or lesion type Cabg, Artery-Vein, Three ([id number]) 03/05/2019 7:29 AM EDT Coronary artery disease of curyung heart with stable angina pectoris, unspecified vessel or lesion type Cabg, Arterial, Single ([id number]) 03/05/2019 7:29 AM EDT Coronary artery disease of curyung heart with stable angina pectoris, unspecified vessel [...] * POCT Glucose (03/09/2019 11:31 AM EDT) [facility] Glucose, POC 148 65 - 199 mg/dL [facility] Comment: Supplemental ranges: <140 mg/dL before meals <180 mg/dL all other times of the day Blood specimen (specimen) 03/09/2019 11:31 AM EDT 03/09/2019 11:31 AM EDT Ryan Lynch MD POINT OF CARE TEST ORDERABLES [facility] [place] [address] * Potassium (03/09/2019 7:49 AM EDT) Potassium 4.0 3.5 - 5.0 mmol/L [facility] Narrative Resulting Agency Comment Spec In Lab Rayn Lynch MD CHEMISTRY ORDERABLE S [facility] [place] [address] * POCT Glucose (03/09/2019 7:32 AM EDT) Glucose, POC 124 65 - 199 mg/dL [facility] Comment: Supplemental ranges: <140 mg/dL before meals <180 mg/dL all other times of the day Blood specimen (specimen) 03/09/2019 7:32 AM EDT 03/09/2019 7:32 AM EDT Ryan Lynch MD POINT OF CARE TEST ORDERABLES Performing Organization Address City/[facility]/ZIP Co de Phone Number [facility] [place] [address] * POCT Glucose (03/08/2019 8:13 PM EDT) Glucose, POC 175 65 - 199 mg/dL [facility] Comment: Supplemental ranges: <140 mg/dL before meals <180 mg/dL all other times of the day Blood specimen (specimen) 03/08/2019 8:13 PM EDT 03/08/2019 8:13 PM EDT Ryan Lynch MD POINT OF CARE TEST ORDERABLES [facility] [place] [address] * POCT Glucose (03/08/2019 4:37 PM EDT) Glucose, POC 115 65 - 199 mg/dL [facility] Comment: Supplemental ranges: <140 mg/dL before meals <180 mg/dL all other times of the day Blood specimen (specimen) 03/08/2019 4:37 PM EDT 03/08/2019 4:37 PM EDT Ryan Lynch MD POINT OF CARE TEST ORDERABLES [facility] [address] [place] [address] * XR Chest PA & Lateral (Generic) [...] Glucose, POC 170 65 - 199 mg/dL [facility] Comment: Supplemental ranges: <140 mg/dL before meals <180 mg/dL all other times of the day Blood specimen (specimen) 03/08/2019 11:16 AM EDT 03/08/2019 11:16 AM EDT Ryan Lynch MD POINT OF CARE TEST ORDERABLES [facility] [place] [address] * POCT Glucose (03/08/2019 7:28 AM EDT) Glucose, POC 137 65 - 199 mg/dL [facility] Comment: Supplemental ranges: <140 mg/dL before meals <180 mg/dL all other times of the day Blood specimen (specimen) 03/08/2019 7:28 AM EDT 03/08/2019 7:28 AM EDT Ryan Lynch MD POINT OF CARE TEST ORDERABLES [facility] [place] [address] * (ABNORMAL) Differential, Automated (03/08/2019 2:45 AM EDT) Pathologist [facility] Neutrophil % 70.8 % [facility] Neutrophil Absolute 8.88(H) 1.70 - 6.10 x10(3)/mc L [facility] Lymph % 14.5 % [facility] Lymphocytes Abs 1.8 0.9 - 3.2 x10(3)/mc L [facility] Monocyte % 10.5 % [facility] Monocyte Abs 1.3(H) 0.3 - 0.9 x10(3)/mc L [facility] Eos % 3.0 % [facility] Eosinophils Abs 0.4 0.0 - 0.4 x10(3)/mc L [facility] Basophil % 0.6 % [facility] Baso Absolute 0.1 0.0 - 0.1 x10(3)/mc L [facility] Immature Gran % 0.60 % [facility] Comment: Immature granulocytes(IG's)percentage and absolute count will include metamyelocytes, myelocytes, and promyelocytes. Blood smears from CBCs yielding IG's will be scanned manually for concordance. If this scan disagrees with the automated IG or if promyelocytes are noted, a manual differential will be performed. Immature Gran Absolute 0.07(H) 0.00 - 0.04 x10(3)/ L [facility] Blood specimen (specimen) 03/08/2019 2:45 AM EDT 03/08/2019 2:51 AM EDT Narrative Resulting Agency Comment Spec In Lab Jose BUCKNER HEMATOLOGY ORDERABLE S [facility] [place] [address] * (ABNORMAL) Hemogram (03/08/2019 2:45 AM EDT) White Blood Cell 12.6(H) 4.0 - 9.5 x10(3)/[facility] Red Blood Cell 3.18(L) 4.00 - 5.21 x10(6)/[facility] Hemoglobin 9.9(L) 11.7 - 15.5 gm/dL [facility] Hematocrit 29.3(L) 35.7 - 45.8 % [facility] Mean Cell Volume 92.1 82.6 - 94.4 fL [facility] Mean Cell Hemoglobin 31.1 27.1 - 32.0 pg [facility] Mean Cell Hemoglobin Concentration 33.8 31.7 - 35.0 gm/dL [facility] Platelet 203 145 - 357 x10(3)/[facility] RDW Standard Deviation 48.7(H) 37.0 - 46.0 [facility] RDW coefficient of variation 14.2(H) 11.5 - 14.1 % [facility] Mean Platelet Volume 8.8 7.6 - 12.9 fL [facility] NRBC% auto 0.0 % [facility] NRBC Absolute 0.000 0.000 - 0.000 x10(3)/ L [facility] Blood specimen (specimen) 03/08/2019 2:45 AM EDT 03/08/2019 2:51 AM EDT Narrative Resulting Agency Comment Spec In Lab Jose BUCKNER HEMATOLOGY ORDERABLE S [facility] [place] [address] * (ABNORMAL) Basic Metabolic Panel (non-fasting) (03/08/2019 2:45 AM EDT) Glucose 141 65 - 199 mg/dL [facility] Comment:Diabetes: >=200 mg/d L plus symptoms Blood Urea Nitrogen 24(H) 8 - 18 mg/dL [facility] Creatinine 0.56(L) 0.70 - 1.20 mg/dL [facility] Sodium 137 135 - 145 mmol/L [facility] Potassium 3.7 3.5 - 5.0 mmol/L [facility] Comment: Please note: ??Patients with WBC >100,000 may have falsely elevated Potassium levels. ??For accurate Potassium quantification in these patients send serum separator tube (gold top) for subsequent determinations. ??Contact the Clinical Chemistry Laboratory if there are any questions. Chloride 102 98 - 107 mmol/L [facility] Carbon Dioxide 25 22 - 31 mmol/L [facility] Anion Gap 10 5 - 15 mmol/L [facility] Calcium 7.8(L) 8.5 - 10.5 mg/dL [facility] Est Glomerular Filtration Rate 91 >=60 mL/min/1. 73 m?? [facility] Comment: The eGFR was calculated using the CKD-EPI equation. As with all creatinine based estimates of kidney function, eGFR values calculated with the CKD-EPI equation are not accurate in patients with acute kidney failure, extremes of body mass or the acutely ill. http://Narrative/DHMCnkf eGFR 106 >=60 mL/min/1. 73 m?? [facility] Comment: The eGFR was calculated using the CKD-EPI equation. As with all creatinine based estimates of kidney function, eGFR values calculated with the CKD-EPI equation are not accurate in patients with acute kidney failure, extremes of body mass or the acutely ill. [email or web address]com/DHMCnkf Blood specimen (specimen) 03/08/2019 2:45 AM EDT 03/08/2019 2:51 AM EDT Narrative Resulting Agency Comment Spec In Lab Ryan Lynch MD CHEMISTRY ORDERABLE S Performing Organization Address City/[facility]/ZIP Co de Phone Number [facility] [place] [address] * (ABNORMAL) POCT Glucose (03/07/2019 6:06 PM EDT) Glucose, POC 214(H) 65 - 199 mg/dL [facility] Comment: Supplemental ranges: <140 mg/dL before meals <180 mg/dL all other times of the day Blood specimen (specimen) 03/07/2019 6:06 PM EDT 03/07/2019 6:06 PM EDT Ryan Lynch MD POINT OF CARE TEST ORDERABLES Performing Organization Address [facility] Co de Phone Number [facility] [place] [address] * POCT Glucose (03/07/2019 11:53 AM EDT) Glucose, POC 155 65 - 199 mg/dL [facility] Comment: Supplemental ranges: <140 mg/dL before meals <180 mg/dL all other times of the day Blood specimen (specimen) 03/07/2019 11:53 AM EDT 03/07/2019 11:53 AM EDT Ryan Lynch MD POINT OF CARE TEST ORDERABLES Performing Organization Address [facility] Center/[facility] Co de Phone Number [facility] [place] [address] * POCT Glucose (03/07/2019 6:01 AM EDT) Glucose, POC 154 65 - 199 mg/dL [facility] Comment: Supplemental ranges: <140 mg/dL before meals <180 mg/dL all other times of the day Blood specimen (specimen) 03/07/2019 6:01 AM EDT 03/07/2019 6:01 AM EDT Ryan Lynch MD POINT OF CARE TEST ORDERABLES Performing Organization Address [facility]/ZIP Co de Phone Number [facility] [place] [address] * Lavender Tube HOLD (03/07/2019 6:00 AM EDT) Lavender Hold Sample in lab. [facility] Blood specimen (specimen) Venous Draw / Unknown 03/07/2019 6:00 AM EDT 03/07/2019 6:11 AM EDT Jose BUCKNER HEMATOLOGY ORDERABLE S Performing Organization Address [facility] Co de Phone Number [facility] [place] [address] * Potassium (03/07/2019 6:00 AM EDT) Pathologist [facility] Potassium 3.7 3.5 - 5.0 mmol/L [facility] MD CHEMISTRY ORDERABLE S Performing Organization Address [facility] Co de Phone Number [facility] [place] [address] * POCT Glucose (03/06/2019 5:38 PM EDT) Glucose, POC 143 65 - 199 mg/dL [facility] Comment: Supplemental ranges: <140 mg/dL before meals <180 mg/dL all other times of the day Blood specimen (specimen) 03/06/2019 5:38 PM EDT 03/06/2019 5:38 PM EDT Ryan Lynch MD POINT OF CARE TEST ORDERABLES Performing Organization Address City/[facility] Co de Phone Number [facility] [place] [address] * Potassium (03/06/2019 12:55 PM EDT) Potassium 3.8 3.5 - 5.0 mmol/L [facility] MD CHEMISTRY ORDERABLE S Performing Organization Address [facility] Co de Phone Number [facility] [place] [address] * POCT Glucose (03/06/2019 12:10 PM EDT) Glucose, POC 131 65 - 199 mg/dL [facility] Comment: Supplemental ranges: <140 mg/dL before meals <180 mg/dL all other times of the day Blood specimen (specimen) 03/06/2019 12:10 PM EDT 03/06/2019 12:10 PM EDT Ryan Lynch MD POINT OF CARE TEST ORDERABLES Performing Organization Address City/[facility]/ZIP Co de Phone Number [facility] [place] [address] * POCT Glucose (03/06/2019 10:42 AM EDT) Glucose, POC 143 65 - 199 mg/dL [facility] Comment: Supplemental ranges: <140 mg/dL before meals <180 mg/dL all other times of the day Blood specimen (specimen) 03/06/2019 10:42 AM EDT 03/06/2019 10:42 AM EDT Ryan Lynch MD POINT OF CARE TEST ORDERABLES [facility] [place] [address] * POCT Glucose (03/06/2019 8:18 AM EDT) Glucose, POC 144 65 - 199 mg/dL [facility] Comment: Supplemental ranges: <140 mg/dL before meals <180 mg/dL all other times of the day Blood specimen (specimen) 03/06/2019 8:18 AM EDT 03/06/2019 8:18 AM EDT Ryan Lynch MD POINT OF CARE TEST ORDERABLES Performing Organization Address City/[facility]/ZIP Co de Phone Number [facility] [place] [address] * POCT Glucose (03/06/2019 6:18 AM EDT) Glucose, POC 141 65 - 199 mg/dL [facility] Comment: Supplemental ranges: <140 mg/dL before meals <180 mg/dL all other times of the day Blood specimen (specimen) 03/06/2019 6:18 AM EDT 03/06/2019 6:18 AM EDT Ryan Lynch MD POINT OF CARE TEST ORDERABLES [facility] [place] [address] * POCT Glucose (03/06/2019 4:18 AM EDT) Glucose, POC 158 65 - 199 mg/dL [facility] Comment: Supplemental ranges: <140 mg/dL before meals <180 mg/dL all other times of the day Blood specimen (specimen) 03/06/2019 4:18 AM EDT 03/06/2019 4:18 AM EDT Ryan Lynch MD POINT OF CARE TEST ORDERABLES Performing Organization Address City/State/[facility] Co de Phone Number [facility] [place] [address] * (ABNORMAL) Differential, Automated (03/06/2019 3:15 AM EDT) [facility] Neutrophil % 83.4 % [facility] Neutrophil Absolute 10.39(H) 1.70 - 6.10 x10(3)/mc L [facility] Lymph % 6.2 % [facility] Lymphocytes Abs 0.8(L) 0.9 - 3.2 x10(3)/mc L [facility] Monocyte % 9.7 % [facility] Monocyte Abs 1.2(H) 0.3 - 0.9 x10(3)/mc L [facility] Eos % 0.0 % [facility] Eosinophils Abs 0.0 0.0 - 0.4 x10(3)/mc L [facility] Basophil % 0.2 % [facility] Baso Absolute 0.0 0.0 - 0.1 x10(3)/mc L [facility] Immature Gran % 0.50 % [facility] Comment: Immature granulocytes(IG's)percentage and absolute count will include metamyelocytes, myelocytes, and promyelocytes. Blood smears from CBCs yielding IG's will be scanned manually for concordance. If this scan disagrees with the automated IG or if promyelocytes are noted, a manual differential will be performed. Immature Gran Absolute 0.06(H) 0.00 - 0.04 x10(3)/mc L [facility] Blood specimen (specimen) 03/06/2019 3:15 AM EDT 03/06/2019 3:21 AM EDT Narrative Resulting Agency Comment Spec In Lab Job BUCKNER HEMATOLOGY ORDERABLE S [facility] [place] [address] * (ABNORMAL) Hemogram (03/06/2019 3:15 AM EDT) White Blood Cell 12.5(H) 4.0 - 9.5 x10(3)/[facility] Red Blood Cell 3.21(L) 4.00 - 5.21 x10(6)/[facility] Hemoglobin 9.9(L) 11.7 - 15.5 gm/dL [facility] Hematocrit 29.7(L) 35.7 - 45.8 % [facility] Mean Cell Volume 92.5 82.6 - 94.4 fL [facility] Mean Cell Hemoglobin 30.8 27.1 - 32.0 pg [facility] Mean Cell Hemoglobin Concentration 33.3 31.7 - 35.0 gm/dL [facility] Platelet 198 145 - 357 x10(3)/[facility] RDW Standard Deviation 47.0(H) 37.0 - 46.0 fL [facility] RDW coefficient of variation 14.0 11.5 - 14.1 % [facility] Mean Platelet Volume 8.8 7.6 - 12.9 fL [facility] NRBC% auto 0.0 % [facility] NRBC Absolute 0.000 0.000 - 0.000 x10(3)/[facility] Blood specimen (specimen) 03/06/2019 3:15 AM EDT 03/06/2019 3:21 AM EDT Narrative Resulting Agency Comment Spec In Lab Job BUCKNER HEMATOLOGY ORDERABLE S [facility] [place] [address] * (ABNORMAL) Basic Metabolic Panel (non-fasting) (03/06/2019 3:15 AM EDT) Glucose 165 65 - 199 mg/dL [facility] Comment:Diabetes: >=200 mg/d L plus symptoms Blood Urea Nitrogen 17 8 - 18 mg/dL [facility] Creatinine 0.54(L) 0.70 - 1.20 mg/dL [facility] Sodium 138 135 - 145 mmol/L [facility] Potassium 4.3 3.5 - 5.0 mmol/L [facility] Comment: Please note: ??Patients with WBC >100,000 may have falsely elevated Potassium levels. ??For accurate Potassium quantification in these patients send serum separator tube (gold top) for subsequent determinations. ??Contact the Clinical Chemistry Laboratory if there are any questions. Chloride 106 98 - 107 mmol/L [facility] Carbon Dioxide 22 22 - 31 mmol/L [facility] Anion Gap 10 5 - 15 mmol/L [facility] Calcium 7.2(L) 8.5 - 10.5 mg/dL [facility] Est Glomerular Filtration Rate 92 >=60 mL/min/1. 73 m?? [facility] Comment: The eGFR was calculated using the CKD-EPI equation. As with all creatinine based estimates of kidney function, eGFR values calculated with the CKD-EPI equation are not accurate in patients with acute kidney failure, extremes of body mass or the acutely ill. http://Narrative/[facility]nk[facility] eGFR 107 >=60 mL/min/1. 73 m?? [facility] Comment: The eGFR was calculated using the CKD-EPI equation. As with all creatinine based estimates of kidney function, eGFR values calculated with the CKD-EPI equation are not accurate in patients with acute kidney failure, extremes of body mass or the acutely ill. http://Narrative/[facility] [place] Blood specimen (specimen) 03/06/2019 3:15 AM EDT 03/06/2019 3:21 AM EDT Narrative Resulting Agency Comment Spec In Lab Ryan Lynch MD CHEMISTRY ORDERABLE S Performing Organization Address [facility] Co de Phone Number [facility] [place] [address] * (ABNORMAL) Troponin (03/06/2019 3:15 AM EDT) Troponin-T 0.55(H) 0.00 - 0.00 ng/mL [facility] Comment: The 99th percentile for Troponin T is less than 0.01 ng/mL, any detectable cTnT concentration using this assay should be considered elevated. According to the third universal definition of myocardial infarction the following criteria with a clinical presentation consistent with acute myocardial ischemia meets the diagnosis for a myocardial infarction (MO). Detection of a rise and/or fall of cTnT, with at least one value greater than the 99th percentile (> or = 0.01) and with at least one of the following ?? Symptoms of ischemia ?? New or presumed new significant VB-mdlysnq-H wave (ST-T) changes or new left bundle [...] additional sample may be indicated. Reference: Third [place] Definition of Myocardial Infarction. Journal of the [place] [employer] 2012;60:1581-98 Blood specimen (specimen) 03/06/2019 3:15 AM EDT 03/06/2019 3:21 AM EDT Narrative Resulting Agency Comment Spec In Lab Ryan Lynch MD CHEMISTRY ORDERABLE S Performing Organization Address [facility]/ZIP Co de Phone Number [facility] [place] [address] * POCT Glucose (03/06/2019 3:07 AM EDT) Glucose, POC 150 65 - 199 mg/dL [facility] Comment: Supplemental ranges: <140 mg/dL before meals <180 mg/dL all other times of the day Blood specimen (specimen) 03/06/2019 3:07 AM EDT 03/06/2019 3:07 AM EDT Ryan Lynch MD POINT OF CARE TEST ORDERABLES [facility] [place] [address] * POCT Glucose (03/06/2019 1:48 AM EDT) Glucose, POC 132 65 - 199 mg/dL [facility] Comment: Supplemental ranges: <140 mg/dL before meals <180 mg/dL all other times of the day Blood specimen (specimen) 03/06/2019 1:48 AM EDT 03/06/2019 1:48 AM EDT Ryan Lynch MD POINT OF CARE TEST ORDERABLES Performing Organization Address City/[facility]/ZIP Co de Phone Number [facility] [place] [address] * POCT Glucose (03/06/2019 12:58 AM EDT) Glucose, POC 145 65 - 199 mg/dL [facility] Comment: Supplemental ranges: <140 mg/dL before meals <180 mg/dL all other times of the day Blood specimen (specimen) 03/06/2019 12:58 AM EDT 03/06/2019 12:58 AM EDT Ryan Lynch MD POINT OF CARE TEST ORDERABLES [facility] [place] [address] * POCT Glucose (03/05/2019 11:52 PM EDT) Glucose, POC 183 65 - 199 mg/dL [facility] Comment: Supplemental ranges: <140 mg/dL before meals <180 mg/dL all other times of the day Blood specimen (specimen) 03/05/2019 11:52 PM EDT 03/05/2019 11:52 PM EDT Ryan Lynch MD POINT OF CARE TEST ORDERABLES Performing Organization Address [facility] Co de Phone Number [facility] [place] [address] * POCT Glucose (03/05/2019 10:58 PM EDT) Glucose, POC 150 65 - 199 mg/dL [facility] Comment: Supplemental ranges: <140 mg/dL before meals <180 mg/dL all other times of the day Blood specimen (specimen) 03/05/2019 10:58 PM EDT 03/05/2019 10:58 PM EDT Ryan Lynch MD POINT OF CARE TEST ORDERABLES Performing Organization Address [facility] de Phone Number [facility] [place] [address] * EKG 12 Lead (03/05/2019 10:06 PM EDT) Ventricular rate 76 BPM MUSE SYSTEM Atrial Rate 76 BPM MUSE SYSTEM P-R Interval 180 ms MUSE SYSTEM QRS Duration 92 ms MUSE SYSTEM Q-T Interval 412 ms MUSE SYSTEM QTC Calculated (Bezet) 463 ms MUSE SYSTEM Calculated P [place] 51 degrees MUSE SYSTEM Calculated R [place] -7 degrees MUSE SYSTEM Calculated T [place] 39 degrees MUSE SYSTEM INTERPRETATION Normal sinus rhythm ST elevation consider lateral injury or acute infarct Abnormal ECG When compared with ECG of 24-FEB-2019 09:58, ST elevation now present in Lateral leads Confirmed by MD Yanes Daniel ([id number]) on 03/06/2019 4:58:41 PM MUSE SYSTEM 03/05/2019 10:0 6 PM EDT 03/06/2019 4:58 PM EDT Ryan Lynch MD ECG ORDERABLES Performing Organization Address [facility] Co de Phone Number MUSE SYSTEM * POCT Glucose (03/05/2019 9:18 PM EDT) Glucose, POC 149 65 - 199 mg/dL [facility] Comment: Supplemental ranges: <140 mg/dL before meals <180 mg/dL all other times of the day Blood specimen (specimen) 03/05/2019 9:18 PM EDT 03/05/2019 9:18 PM EDT Ryan Lynch MD POINT OF CARE TEST ORDERABLES Performing Organization Address [facility] de Phone Number [facility] [place] [address] * Potassium (03/05/2019 9:15 PM EDT) Pathologist [facility] Potassium 4.0 3.5 - 5.0 mmol/L [facility] [...] MD CHEMISTRY ORDERABLE S Performing Organization Address [facility] Co de Phone Number [facility] [place] [address] * Transfuse 1 unit platelets, apheresis (03/05/2019 8:55 PM EDT) Ryan Lynch MD NURSING TREATMENT O RDERABLES - BLOOD ADMIN * Transfuse 1 unit platelets, apheresis (03/05/2019 8:55 PM EDT) Ryan Lynch MD NURSING TREATMENT O RDERABLES - BLOOD ADMIN * POCT Glucose (03/05/2019 7:26 PM EDT) Glucose, POC 150 65 - 199 mg/dL [facility] Comment: Supplemental ranges: <140 mg/dL before meals <180 mg/dL all other times of the day Blood specimen (specimen) 03/05/2019 7:26 PM EDT 03/05/2019 7:26 PM EDT Ryan Lynch MD POINT OF CARE TEST ORDERABLES [facility] [place] [address] * (ABNORMAL) BLOOD GAS 2 ARTERIAL (03/05/2019 5:42 PM EDT) [facility] pH, Arterial 7.34(L) 7.35 - 7.45 [facility] PCO2, Arterial 38 35 - 45 mmHg [facility] PO2, Arterial 121(H) 85 - 104 mmHg [facility] Bicarbonate, Arterial 20.4 20.0 - 26.0 mmol/L [facility] Base Excess, Arterial -5.3(L) -3.0 - 3.0 mmol/L [facility] Hgb Blood Gas 11.3(L) 11.7 - 15.5 gm/dL [facility] Oxyhemoglobin, Arterial 96.8 94.0 - 97.0 % [facility] Carboxyhemoglob in, Arterial 0.3 % [facility] Comment: Nonsmokers: 0.5-1.5% COHB Smokers: Variable, but usually less than 10% Toxic: 20-30% COHB Lethal: Greater than 60% COHB Methemoglobin, Arterial 0.6 <=1.5 % [facility] Na Whole Blood 138 135 - 145 mmol/L [facility] K Whole Blood 3.7 3.5 - 5.0 mmol/L [facility] Comment: Please note: Patients with WBC >100,000 may have falsely elevated Potassium levels. Contact the Clinical Chemistry Laboratory if there are any questions. ICa Whole Blood 1.07(L) 1.15 - 1.33 mmol/L [facility] Comment: Note: ??Total bilirubin higher than 20 mg/dL may lead to falsely low ionized calcium. CL Whole Blood 108(H) 98 - 107 mmol/L [facility] Gluc Whole Bld 148 65 - 199 mg/dL [facility] Comment:Diabetes: >=200 mg/d L plus symptoms. Lactate WB 2.8(H) 0.5 - 2.2 mmol/L [facility] FIO2 Art 40 % [facility] PF Ratio Art [address] [facility] Blood specimen (specimen) 03/05/2019 5:42 PM EDT 03/05/2019 5:42 PM EDT Ryan Lynch MD POINT OF CARE TEST ORDERABLES [facility] [place] [address] * XR Chest One View (03/05/2019 4:33 [...] EDT) Hemoglobin 10.9(L) 11.7 - 15.5 gm/dL [facility] Blood specimen (specimen) 03/05/2019 4:10 PM EDT 03/05/2019 4:15 PM EDT Narrative Resulting Agency Comment Spec In Lab Ryan Lynch MD HEMATOLOGY ORDERABL ES [facility] [place] [address] * Potassium (03/05/2019 4:10 PM EDT) Potassium 4.2 3.5 - 5.0 mmol/L [facility] [...] MD CHEMISTRY ORDERABLE S Performing Organization Address City/[facility]/ZIP Co de Phone Number [facility] [place] [address] * POCT Glucose (03/05/2019 4:08 PM EDT) [facility] Glucose, POC 153 65 - 199 mg/dL [facility] Comment: Supplemental ranges: <140 mg/dL before meals <180 mg/dL all other times of the day Blood specimen (specimen) 03/05/2019 4:08 PM EDT 03/05/2019 4:08 PM EDT Ryan Lynch MD POINT OF CARE TEST ORDERABLES Performing Organization Address [facility] Co de Phone Number [facility] [place] [address] * (ABNORMAL) BLOOD GAS 2 ARTERIAL (03/05/2019 2:14 PM EDT) [facility] Signature pH, Arterial 7.34(L) 7.35 - 7.45 [facility] PCO2, Arterial 42 35 - 45 mmHg [facility] PO2, Arterial 121(H) 85 - 104 mmHg [facility] Bicarbonate, Arterial 22.0 20.0 - 26.0 mmol/L [facility] Base Excess, Arterial -3.7(L) -3.0 - 3.0 mmol/L [facility] Hgb Blood Gas 12.0 11.7 - 15.5 gm/dL [facility] Oxyhemoglobin, Arterial 96.8 94.0 - 97.0 % [facility] Carboxyhemoglob in, Arterial 0.3 % [facility] Comment: Nonsmokers: 0.5-1.5% COHB Smokers: Variable, but usually less than 10% Toxic: 20-30% COHB Lethal: Greater than 60% COHB Methemoglobin, Arterial 0.7 <=1.5 % [facility] Na Whole Blood 136 135 - 145 mmol/L [facility] K Whole Blood 4.3 3.5 - 5.0 mmol/L [facility] Comment: Please note: Patients with WBC >100,000 may have falsely elevated Potassium levels. Contact the Clinical Chemistry Laboratory if there are any questions. ICa Whole Blood 1.06(L) 1.15 - 1.33 mmol/L [facility] Comment: Note: ??Total bilirubin higher than 20 mg/dL may lead to falsely low ionized calcium. CL Whole Blood 107 98 - 107 mmol/L [facility] Gluc Whole Bld 182 65 - 199 mg/dL [facility] Comment:Diabetes: >=200 mg/d L plus symptoms. Lactate WB 2.6(H) 0.5 - 2.2 mmol/L [facility] FIO2 Art 40 % [facility] PF Ratio Art [address] [facility] Blood specimen (specimen) 03/05/2019 2:14 PM EDT 03/05/2019 2:14 PM EDT Ryan Lynch MD POINT OF CARE TEST ORDERABLES [facility] [place] [address] * POCT Glucose (03/05/2019 2:08 PM EDT) Glucose, POC 183 65 - 199 mg/dL [facility] Comment: Supplemental ranges: <140 mg/dL before meals <180 mg/dL all other times of the day Blood specimen (specimen) 03/05/2019 2:08 PM EDT 03/05/2019 2:08 PM EDT Ryan Lynch MD POINT [place] [address] * XR Chest One View (03/05/2019 12:48 [...] EDT) pH, Arterial 7.33(L) 7.35 - 7.45 [facility] PCO2, Arterial 42 35 - 45 mmHg [facility] PO2, Arterial 178(H) 85 - 104 mmHg [facility] Bicarbonate, Arterial 21.7 20.0 - 26.0 mmol/L [facility] Base Excess, Arterial -4.3(L) -3.0 - 3.0 mmol/L [facility] Hgb Blood Gas 11.2(L) 11.7 - 15.5 gm/dL [facility] Oxyhemoglobin, Arterial 97.6(H) 94.0 - 97.0 % [facility] Carboxyhemoglob in, Arterial 0.3 % [facility] Comment: Nonsmokers: 0.5-1.5% COHB Smokers: Variable, but usually less than 10% Toxic: 20-30% COHB Lethal: Greater than 60% COHB Methemoglobin, Arterial 0.8 <=1.5 % [facility] Na Whole Blood 137 135 - 145 mmol/L [facility] K Whole Blood 3.2(L) 3.5 - 5.0 mmol/L [facility] Comment: Please note: Patients with WBC >100,000 may have falsely elevated Potassium levels. Contact the Clinical Chemistry Laboratory if there are any questions. ICa Whole Blood 1.01(L) 1.15 - 1.33 mmol/L [facility] Comment: Note: ??Total bilirubin higher than 20 mg/dL may lead to falsely low ionized calcium. CL Whole Blood 106 98 - 107 mmol/L [facility] Gluc Whole Bld 197 65 - 199 mg/dL [facility] Comment:Diabetes: >=200 mg/d L plus symptoms. Lactate WB 2.9(H) 0.5 - 2.2 mmol/L [facility] FIO2 Art 100 % [facility] PF Ratio Art [address] [facility] Blood specimen (specimen) 03/05/2019 12:45 PM EDT 03/05/2019 12:45 PM EDT Ryan Lynch MD POINT OF CARE TEST ORDERABLES Performing Organization Address [facility] Co de Phone Number [facility] [place] [phone] * Prepare Platelets, Apheresis (03/05/2019 11:45 AM EDT) Dispensed? Yes [facility] Blood specimen (specimen) 03/05/2019 11:45 AM EDT 03/05/2019 11:43 AM EDT Ryan Lynch MD BLOOD BANK PRODUCT ORDERABLES Performing Organization Address [facility] Co de Phone Number [facility] [place] [address] * (ABNORMAL) BLOOD GAS 2 ARTERIAL (03/05/2019 11:14 AM EDT) pH, Arterial 7.39 7.35 - 7.45 [facility] PCO2, Arterial 40 35 - 45 mmHg [facility] PO2, Arterial 325(H) 85 - 104 mmHg [facility] Bicarbonate, Arterial 23.9 20.0 - 26.0 mmol/L [facility] Base Excess, Arterial -1.1 -3.0 - 3.0 mmol/L [facility] Hgb Blood Gas 8.1(L) 11.7 - 15.5 gm/dL [facility] Oxyhemoglobin, Arterial 98.7(H) 94.0 - 97.0 % [facility] Carboxyhemoglob in, Arterial 0.4 % [facility] Comment: Nonsmokers: 0.5-1.5% COHB Smokers: Variable, but usually less than 10% Toxic: 20-30% COHB Lethal: Greater than 60% COHB Methemoglobin, Arterial 0.3 <=1.5 % [facility] Na Whole Blood 131(L) 135 - 145 mmol/L [facility] K Whole Blood 3.4(L) 3.5 - 5.0 mmol/L [facility] Comment: Please note: Patients with WBC >100,000 may have falsely elevated Potassium levels. Contact the Clinical Chemistry Laboratory if there are any questions. ICa Whole Blood 1.10(L) 1.15 - 1.33 mmol/L [facility] Comment: Note: ??Total bilirubin higher than 20 mg/dL may lead to falsely low ionized calcium. CL Whole Blood 104 98 - 107 mmol/L [facility] Gluc Whole Bld 216(H) 65 - 199 mg/dL [facility] Comment:Diabetes: >=200 mg/d L plus symptoms. Lactate WB 3.4(H) 0.5 - 2.2 mmol/L [facility] FIO2 Art 90 % [facility] PF Ratio Art [address] [facility] Blood specimen (specimen) 03/05/2019 11:14 AM EDT 03/05/2019 11:14 AM EDT Ryan Lynch MD POINT OF CARE TEST ORDERABLES [facility] [place] [address] * (ABNORMAL) Differential, Automated (03/05/2019 11:04 AM EDT) Neutrophil % 69.8 % [facility] Neutrophil Absolute 7.85(H) 1.70 - 6.10 x10(3)/ L [facility] Lymph % 24.5 % [facility] Lymphocytes Abs 2.8 0.9 - 3.2 x10(3)/ L [facility] Monocyte % 3.1 % [facility] Monocyte Abs 0.4 0.3 - 0.9 x10(3)/[facility] Eos % 1.0 % [facility] Eosinophils Abs 0.1 0.0 - 0.4 x10(3)/[facility] Basophil % 0.2 % [facility] Baso Absolute 0.0 0.0 - 0.1 x10(3)/[facility] Immature Gran % 1.40 % [facility] Comment: Immature granulocytes(IG's)percentage and absolute count will include metamyelocytes, myelocytes, and promyelocytes. Blood smears from CBCs yielding IG's will be scanned manually for concordance. If this scan disagrees with the automated IG or if promyelocytes are noted, a manual differential will be performed. Immature Gran Absolute 0.16(H) 0.00 - 0.04 x10(3)/[facility] Blood specimen (specimen) 03/05/2019 11:04 AM EDT 03/05/2019 11:26 AM EDT Narrative Resulting Agency Comment Spec In Lab Ish Shaikh MD HEMATOLOGY ORDERAB LES [facility] [place] [address] * (ABNORMAL) Hemogram (03/05/2019 11:04 AM EDT) White Blood Cell 11.2(H) 4.0 - 9.5 x10(3)/[facility] Red Blood Cell 2.41(L) 4.00 - 5.21 x10(6)/mc L [facility] Hemoglobin 7.6(L) 11.7 - 15.5 gm/dL [facility] Hematocrit 22.8(L) 35.7 - 45.8 % [facility] Comment: This result has been called to GEOVANI HOPSON by Law Chacon on 03 05 2019 at 1130, and has been read back. Mean Cell Volume 94.6(H) 82.6 - 94.4 fL [facility] Mean Cell Hemoglobin 31.5 27.1 - 32.0 pg [facility] Mean Cell Hemoglobin Concentration 33.3 31.7 - 35.0 gm/dL [facility] Platelet 153 145 - 357 x10(3)/mc L [facility] RDW Standard Deviation 47.8(H) 37.0 - 46.0 fL [facility] RDW coefficient of variation 13.7 11.5 - 14.1 % [facility] Mean Platelet Volume 9.1 7.6 - 12.9 [facility] NRBC% auto 0.0 % [facility] NRBC Absolute 0.000 0.000 - 0.000 x10(3)/mc L [facility] Blood specimen (specimen) 03/05/2019 11:04 AM EDT 03/05/2019 11:26 AM EDT Narrative Resulting Agency Comment Spec In Lab Ish Shaikh MD HEMATOLOGY ORDERAB LES [facility] [place] [address] * (ABNORMAL) Fibrinogen (03/05/2019 11:04 AM EDT) Fibrinogen 118(L) 200 - 393 mg/dL [facility] Comment: Called by: clay, Read back by: geovani hopson_, Date/Time:03/05/19 11:43_. A fibrinogen level >100 mg/dL is adequate for hemostasis in most patients without underlying bleeding disorders. Blood specimen (specimen) 03/05/2019 11:04 AM EDT 03/05/2019 11:26 AM EDT Narrative Resulting Agency Comment Spec In Lab Bob Bolaños MD HEMATOLOGY ORDERABLE S Performing Organization Address [facility] Co de Phone Number [facility] [place] [address] * APTT (03/05/2019 11:04 AM EDT) Partial Thromboplastin Time 32 25 - 37 sec [facility] Comment: Called by: clay, Read [...] MD HEMATOLOGY ORDERABLE S Performing Organization Address [facility] Co de Phone Number [facility] [place] [address] * (ABNORMAL) Prothrombin Time (03/05/2019 11:04 AM EDT) Prothrombin Time 18.0(H) 9.4 - 12.5 sec [facility] Comment:Called by: clay, Read back by: geovani hopson_, Date/Time:03/05/19 11:43_. International Normalization Ratio 1.6 [facility] Comment: Called by: clay, Read [...] MD HEMATOLOGY ORDERABLE S Performing Organization Address City/[facility]/ZIP Co de Phone Number [facility] [place] [address] * Platelet count (03/05/2019 10:38 AM EDT) Platelet 185 145 - 357 x10(3)/mc L [facility] Immature Plt % 1.1 0.0 - 7.4 % [facility] Comment: Limitation of the Immature Platelet Fraction (IPF)-May be less reliable when the platelet count is less than [id number]/uL due to statistical imprecision. The IPF value [...] in Cell Recovery Document Number [id number] 11/2010 [employer] The Role of the Immature Platelet Fraction (IPF) in the Differential Diagnosis of Thrombocytopenia, Document [id number] V05 P05/14 Blood specimen (specimen) 03/05/2019 10:38 AM EDT 03/05/2019 10:46 AM EDT Narrative Resulting Agency Comment Spec In Lab Ryan Lynch MD HEMATOLOGY ORDERABL ES Performing Organization Address City/[facility]/ZIP Co de Phone Number [facility] [place] [address] * (ABNORMAL) Hemoglobin and Hematocrit, blood (03/05/2019 10:38 AM EDT) Hemoglobin 7.3(L) 11.7 - 15.5 gm/dL [facility] Hematocrit 22.5(L) 35.7 - 45.8 % [facility] Comment: This result has been called to HAYDEE HOPSON by Tatiana Vo on 03 05 2019 at 1055, and has been read back. Blood specimen (specimen) 03/05/2019 10:38 AM EDT 03/05/2019 10:46 AM EDT Narrative Resulting Agency Comment Spec In Lab Ryan Lynch MD HEMATOLOGY ORDERABL ES Performing Organization Address [facility]/ZIP Co de Phone Number [facility] [place] [address] * (ABNORMAL) Fibrinogen (03/05/2019 10:38 AM EDT) Pathologist [facility] Fibrinogen 120(L) 200 - 393 mg/dL [facility] Comment: A fibrinogen level >100 mg/dL is adequate for hemostasis in most patients without underlying bleeding disorders. Blood specimen (specimen) 03/05/2019 10:38 AM EDT 03/05/2019 10:46 AM EDT Narrative Resulting Agency Comment Spec In Lab Ryan Lynch MD HEMATOLOGY ORDERABL ES Performing Organization Address City/[facility]/ZIP Co de Phone Number [facility] [place] [address] * (ABNORMAL) BLOOD GAS 2 ARTERIAL (03/05/2019 10:29 AM EDT) pH, Arterial 7.43 7.35 - 7.45 [facility] PCO2, Arterial 34(L) 35 - 45 mmHg [facility] PO2, Arterial 360(H) 85 - 104 mmHg [facility] Bicarbonate, Arterial 21.8 20.0 - 26.0 mmol/L [facility] Base Excess, Arterial -2.5 -3.0 - 3.0 mmol/L [facility] Hgb Blood Gas 8.3(L) 11.7 - 15.5 gm/dL [facility] Oxyhemoglobin, Arterial 98.8(H) 94.0 - 97.0 % [facility] Carboxyhemoglob in, Arterial 0.3 % [facility] Comment: Nonsmokers: 0.5-1.5% COHB Smokers: Variable, but usually less than 10% Toxic: 20-30% COHB Lethal: Greater than 60% COHB Methemoglobin, Arterial 0.3 <=1.5 % [facility] Na Whole Blood 128(L) 135 - 145 mmol/L [facility] K Whole Blood 4.5 3.5 - 5.0 mmol/L [facility] Comment: Please note: Patients with WBC >100,000 may have falsely elevated Potassium levels. Contact the Clinical Chemistry Laboratory if there are any questions. ICa Whole Blood 0.91(Criti edward) 1.15 - 1.33 mmol/L [facility] Comment: Note: ??Total bilirubin higher than 20 mg/dL may lead to falsely low ionized calcium. CL Whole Blood 100 98 - 107 mmol/L [facility] Gluc Whole Bld 221(H) 65 - 199 mg/dL [facility] Comment:Diabetes: >=200 mg/d L plus symptoms. Lactate WB 2.8(H) 0.5 - 2.2 mmol/L [facility] Blood specimen (specimen) 03/05/2019 10:29 AM EDT 03/05/2019 10:29 AM EDT Ryan Lynch MD POINT OF CARE TEST ORDERABLES [facility] [place] [address] * (ABNORMAL) BLOOD GAS 2 ARTERIAL (03/05/2019 9:56 AM EDT) pH, Arterial 7.41 7.35 - 7.45 [facility] PCO2, Arterial 38 35 - 45 mmHg [facility] PO2, Arterial 362(H) 85 - 104 mmHg [facility] Bicarbonate, Arterial 24.0 20.0 - 26.0 mmol/L [facility] Base Excess, Arterial -0.6 -3.0 - 3.0 mmol/L [facility] Hgb Blood Gas 8.7(L) 11.7 - 15.5 gm/dL [facility] Oxyhemoglobin, Arterial 99.1(H) 94.0 - 97.0 % [facility] Carboxyhemoglob in, Arterial 0.0 % [facility] Comment: Nonsmokers: 0.5-1.5% COHB Smokers: Variable, but usually less than 10% Toxic: 20-30% COHB Lethal: Greater than 60% COHB Methemoglobin, Arterial 0.3 <=1.5 % [facility] Na Whole Blood 131(L) 135 - 145 mmol/L [facility] K Whole Blood 4.4 3.5 - 5.0 mmol/L [facility] Comment: Please note: Patients with WBC >100,000 may have falsely elevated Potassium levels. Contact the Clinical Chemistry Laboratory if there are any questions. ICa Whole Blood 0.91(Criti edward) 1.15 - 1.33 mmol/L [facility] Comment: Note: ??Total bilirubin higher than 20 mg/dL may lead to falsely low ionized calcium. CL Whole Blood 103 98 - 107 mmol/L [facility] Gluc Whole Bld 207(H) 65 - 199 mg/dL [facility] Comment:Diabetes: >=200 mg/d L plus symptoms. Lactate WB 2.5(H) 0.5 - 2.2 mmol/L [facility] Blood specimen (specimen) 03/05/2019 9:56 AM EDT 03/05/2019 9:56 AM EDT Ryan Lynch MD POINT OF CARE TEST ORDERABLES [facility] [place] [address] * (ABNORMAL) BLOOD GAS 2 VENOUS (03/05/2019 9:27 AM EDT) pH, Venous 7.32 7.32 - 7.42 [facility] PCO2, Venous 45 41 - 51 mmHg [facility] PO2, Venous 48(H) 25 - 40 mmHg [facility] Bicarbonate, Venous 22.5 mmol/L [facility] Base Excess, Venous -3.6 mmol/L [facility] Hgb Blood Gas 9.0(L) 11.7 - 15.5 gm/dL [facility] Oxyhemoglobin, Venous 80.9 % [facility] Carboxyhemoglob in, Venous 0.3 % [facility] Comment: Nonsmokers: 0.5-1.5% COHB Smokers: Variable, but usually less than 10% Toxic: 20-30% COHB Lethal: Greater than 60% COHB Methemoglobin, Venous 0.3 <=1.5 % [facility] Na Whole Blood 136 135 - 145 mmol/L [facility] K Whole Blood 4.2 3.5 - 5.0 mmol/L [facility] Comment: Please note: Patients with WBC >100,000 may have falsely elevated Potassium levels. Contact the Clinical Chemistry Laboratory if there are any questions. ICa Whole Blood 0.86(Criti edward) 1.15 - 1.33 mmol/L [facility] Comment: Note: ??Total bilirubin higher than 20 mg/dL may lead to falsely low ionized calcium. CL Whole Blood 102 98 - 107 mmol/L [facility] Gluc Whole Bld 196 65 - 199 mg/dL [facility] Comment:Diabetes: >=200 mg/d L plus symptoms Lactate WB 2.2 0.5 - 2.2 mmol/L [facility] Blood Gas Source Venous [facility] Blood specimen (specimen) 03/05/2019 9:27 AM EDT 03/05/2019 9:27 AM EDT Rayn Lynch MD POINT OF CARE TEST ORDERABLES [facility] [place] [address] * (ABNORMAL) BLOOD GAS 2 ARTERIAL (03/05/2019 9:25 AM EDT) pH, Arterial 7.37 7.35 - 7.45 [facility] PCO2, Arterial 40 35 - 45 mmHg [facility] PO2, Arterial 408(H) 85 - 104 mmHg [facility] Bicarbonate, Arterial 22.7 20.0 - 26.0 mmol/L [facility] Base Excess, Arterial -2.6 -3.0 - 3.0 mmol/L [facility] Hgb Blood Gas 8.8(L) 11.7 - 15.5 gm/dL [facility] Oxyhemoglobin, Arterial 98.8(H) 94.0 - 97.0 % [facility] Carboxyhemoglob in, Arterial 0.3 % [facility] Comment: Nonsmokers: 0.5-1.5% COHB Smokers: Variable, but usually less than 10% Toxic: 20-30% COHB Lethal: Greater than 60% COHB Methemoglobin, Arterial 0.3 <=1.5 % [facility] Na Whole Blood 136 135 - 145 mmol/L [facility] K Whole Blood 4.4 3.5 - 5.0 mmol/L [facility] Comment: Please note: Patients with WBC >100,000 may have falsely elevated Potassium levels. Contact the Clinical Chemistry Laboratory if there are any questions. ICa Whole Blood 0.81(Criti edward) 1.15 - 1.33 mmol/L [facility] Comment: Note: ??Total bilirubin higher than 20 mg/dL may lead to falsely low ionized calcium. CL Whole Blood 103 98 - 107 mmol/L [facility] Gluc Whole Bld 199 65 - 199 mg/dL [facility] Comment:Diabetes: >=200 mg/d L plus symptoms. Lactate WB 2.1 0.5 - 2.2 mmol/L [facility] Blood specimen (specimen) 03/05/2019 9:25 AM EDT 03/05/2019 9:25 AM EDT Ryan Lynch MD POINT OF CARE TEST ORDERABLES [facility] [place] [address] * (ABNORMAL) BLOOD GAS 2 ARTERIAL (03/05/2019 8:32 AM EDT) pH, Arterial 7.43 7.35 - 7.45 [facility] PCO2, Arterial 37 35 - 45 mmHg [facility] PO2, Arterial 468(H) 85 - 104 mmHg [facility] Bicarbonate, Arterial 24.1 20.0 - 26.0 mmol/L [facility] Base Excess, Arterial -0.2 -3.0 - 3.0 mmol/L [facility] Hgb Blood Gas 12.3 11.7 - 15.5 gm/dL [facility] Oxyhemoglobin, Arterial 99.3(H) 94.0 - 97.0 % [facility] Carboxyhemoglob in, Arterial 0.3 % [facility] Comment: Nonsmokers: 0.5-1.5% COHB Smokers: Variable, but usually less than 10% Toxic: 20-30% COHB Lethal: Greater than 60% COHB Methemoglobin, Arterial 0.0 <=1.5 % [facility] Na Whole Blood 140 135 - 145 mmol/L [facility] K Whole Blood 3.3(L) 3.5 - 5.0 mmol/L [facility] Comment: Please note: Patients with WBC >100,000 may have falsely elevated Potassium levels. Contact the Clinical Chemistry Laboratory if there are any questions. ICa Whole Blood 1.10(L) 1.15 - 1.33 mmol/L [facility] Comment: Note: ??Total bilirubin higher than 20 mg/dL may lead to falsely low ionized calcium. CL Whole Blood 105 98 - 107 mmol/L [facility] Gluc Whole Bld 133 65 - 199 mg/dL [facility] Comment:Diabetes: >=200 mg/d L plus symptoms. Lactate WB 2.4(H) 0.5 - 2.2 mmol/L [facility] FIO2 Art 90 % [facility] PF Ratio Art [address] [facility] Blood specimen (specimen) 03/05/2019 8:32 AM EDT 03/05/2019 8:32 AM EDT Ryan Lynch MD POINT OF CARE TEST ORDERABLES Performing Organization Address [facility] Co de Phone Number [facility] [place] [address] * POCT Glucose (03/05/2019 6:49 AM EDT) Glucose, POC 133 65 - 199 mg/dL [facility] Comment: Supplemental ranges: <140 mg/dL before meals <180 mg/dL all other times of the day Blood specimen (specimen) 03/05/2019 6:49 AM EDT 03/05/2019 6:49 AM EDT Ryan Lynch MD POINT OF CARE TEST ORDERABLES [facility] [place] [address] * Prepare RBC (03/05/2019 6:35 AM EDT) Dispensed? 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
--- OUTSIDE RECORDS SUMMARY | 2024-08-12 10:31 | XMS_ITS | Encounter Summary ---
Author Organization [facility] [place] [address] Care Team Providers Care Coach Driver Name Role Phone Angie Alonzo MD Primary Care Provider [phone] Encounter Details Date Type Department Care Team (Late st Contact Info) Description 09/10/2017 1:10 PM EDT Laboratory Appointment Lab 3L [facility] [place] [address] Coagulopathy Social History Tobacco Use Types Packs/Day [...] Platelet 297 145 - 357 x10(3)/mc L [facility] Immature Plt % 1.0 0.0 - 7.4 % [facility] Comment: Limitation of the Immature Platelet Fraction (IPF)-May be less reliable when the platelet count is less than 57l558/uL due to statistical imprecision. The IPF value [...] in a decreased state of production. References: [employer] The Clinical Value of the Immature Platelet Fraction (IPF) in Cell Recovery Document Number [id number] 11/2010 [employer] The Role of the Immature Platelet Fraction (IPF) in the Differential Diagnosis of Thrombocytopenia, Document MKT-[id number] V05/06/13 P0514 Blood specimen (specimen) 09/10/2017 1:17 PM EDT 09/10/2017 1:23 PM EDT Narrative Resulting Agency Comment Spec In Lab Tutu Garcia MD HEMATOLOGY ORDERABLE S Performing Organization Address [facility] Co de Phone Number [facility] [place] [address] * Prothrombin Time (09/10/2017 1:17 PM EDT) Prothrombin Time 12.9 11.8 - 14.0 sec [facility] International Normalization Ratio 1.0 0.9 - 1.1 [facility] Comment: An INR <2.0 [...] MD HEMATOLOGY ORDERABLE S Performing Organization Address [facility] Co de Phone Number [facility] [place] [address] documented in this encounter Visit Diagnoses Diagnosis Coagulopathy Other and unspecified coagulation defects documented in this encounter Care Teams Coach Driver Relationship Specialty Start Date End Date Angie Alonzo MD [facility] [address] [place] [address] PCP - General Family Medicine 06/25/17 documented as of this encounter
--- OUTSIDE RECORDS SUMMARY | 2024-08-12 10:31 | XMS_ITS | Encounter Summary ---
Author Organization [facility] [place] [address] Care Team Providers Care Manager Presentation Name Role Phone Angie Alonzo MD Primary Care Provider [phone] Encounter Details Date Type Department Care Team (Late st Contact Info) Description 07/17/2017 8:45 AM EST Office Visit Hematology and Oncology at [facility] [place] [address] Ashley Farooq MD Malignant neoplasm of upper-outer [...] cranial 0 of 1 LNs positive cells,, ER+/VT+, [id number]-, pTNM: ---(m)T1b N0 (AJCC, 7th edition, 2010) Radiation: pending consultation (Dr. Merrill, [facility]) Chemo: NA Receptor targeted therapy: pending consultation, [...] blood-glucose meter (FREESTYLE) Kit 1 each by [facility] [place] [place].(Non-Drug; Combo Route) route as needed for Other. 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
--- OUTSIDE RECORDS SUMMARY | 2024-08-12 10:31 | XMS_ITS | Encounter Summary ---
Author Organization [facility] Address [facility] [place] [address] Care Team Providers Care Blueprinting Machine Operator Name Role Phone Angie Alonzo MD Primary Care Provider [phone] Encounter Details Date Type Department Care Team (Late st Contact Info) Description 07/23/2017 Notes Only Radiation Oncology at [address] [phone] Ayse Renteria MSW OFFICE OF [...] on filedocumented in this encounter Care Teams Blueprinting Machine Operator Relationship Specialty Start Date End Date Angie Alonzo MD [address] [place] [address] PCP - General Family Medicine 06/25/17 documented as of this encounter
--- OUTSIDE RECORDS SUMMARY | 2024-08-12 10:31 | XMS_ITS | Encounter Summary ---
Author Organization [facility] Address [facility] [place] [address] Care Team Providers Care Forester Silviculture Name Role Phone Adis Franklin MD Primary Care Provider Roya lopez Encounter Details Date Type Department Care Team (Late st Contact Info) Description 06/19/2017 Notes Only Care Management [facility] [place] [address] Hellen Cardozo MSW Social History Tobacco Use Types Packs/Day Years Used Date Smoking Tobacco: Never Smokeless Tobacco: Never Sex and Gender Information Value Date Recorded Sex Assigned at Not on file Gender Identity Not on file Sexual Orientation Not on file documented as of this encounter Progress Notes * Hellen Cardozo MSW - 06/19/2017 3:28 PM EST OFFICE OF CARE MANAGEMENT/CONTINUING GREENHOUSE FLORIST Reason for referral: Abimbola Dumas is a 71 year old, female who was seen in the multidisciplinary breast cancer clinic for a surgical consult as she was recently diagnosed with ER/ND+, left breast, IDC.After meet with Dr. Farooq, pt has decided to have a lumpectomy/SLNB. Pt may not need radiation but this will be determined after the results of the surgical pathology are known. If pt needs radiation, she would like to have it at the [facility] which is closer to her home. [facility] met with pt to complete a psychosocial assessment and to explain my role in the breast program. Pt wasencouraged to contact me if she has any questions or concerns. Living arrangements/social supports: Pt lives in [place], [place] with her . She has support from her family and is accompanied today by her daughter, and granddaughter. Pt states her son would of accompanied her today, but her daughter was available to come to the visit with her. Employment/Insurance/Finances: Pt is retired and has Medicare A and B as well as supplemental insurance through [facility]. Pt states she has a Part D [...] their psychosocial needs. [facility]ST[facility] [phone] Pager #[phone] documented in this encounter Plan of Treatment Not on file documented as of this encounter Visit Diagnoses Not on filedocumented in this encounter Care Teams Forester Silviculture Relationship Specialty Start Date End Date Adis Franklin MD PCP - General 05/23/10 06/24/17 documented as of this encounter
--- OUTSIDE RECORDS SUMMARY | 2024-08-12 10:31 | XMS_ITS | Encounter Summary ---
Author Organization [facility] Address [facility] [place] [address] Care Team Providers Care Cloth Dye Range Operator Name Role Phone Angie Alonzo MD Primary Care Provider [phone] Reason for Visit * Reason Comments On Treatment Visit Encounter Details Date Type Department Care Team (Late st Contact Info) Description 08/27/2017 8:30 AM EST Office Visit Radiation Oncology at [address] [phone] Bethany Merrill MD [facility] [place] [address] Malignant neoplasm of left female breast, unspecified [...] the ultrasound result with me, please call [phone]. documented in this encounter Progress Notes * Bethany Merrill MD - 08/27/2017 8:30 AM EST DIAGNOSIS: Breast, L, IDC, low gr, ER+GA+, Her2 neg, s/p lumpectomy & SNB, pT1b [...] For details, see electronic film record in [employer] System. Changes in Medical Condition: She notes [...] Commonly known as: FREESTYLE [address] [facility].(Non-Drug; Combo Route) route as needed for Other. [...] She is agreeable to US of thyroid. [place] will stop by front desk monitor to ask about appt for US of [...] breast documented in this encounter Care Teams Cloth Dye Range Operator Relationship Specialty Start Date End Date Angie Alonzo MD [address] [place] [address] [facility] [address] [place] [address] PCP - General Family Medicine 06/25/17 documented as of this encounter
--- OUTSIDE RECORDS SUMMARY | 2024-08-12 10:31 | XMS_ITS | Encounter Summary ---
Author Organization [facility] Address [facility] [place] [address] Care Team Providers Care Scoop Operator Name Role Phone Angie Alonzo MD Primary Care Provider [phone] Encounter Details Date Type Department Care Team (Late st Contact Info) Description 08/08/2017 8:15 AM EST Office Visit Radiation Oncology at [address] [phone] Paul Veliz MD [facility] [place] [address] Malignant neoplasm of upper-inner quadrant of left [...] therapy directed at her LEFT breast at [facility] radiation oncology facility under the direction of [...] status documented in this encounter Care Teams Scoop Operator Relationship Specialty Start Date End Date Angie Alonzo MD [address] [place] [address] PCP - General Family Medicine 06/25/17 documented as of this encounter
--- OUTSIDE RECORDS SUMMARY | 2024-08-12 10:31 | XMS_ITS | Encounter Summary ---
Author Organization [facility] Address [facility] [place] [address] Care Team Providers Care Dictating Transcribing Machine Servicer Name Role Phone Angie Alonzo MD Primary Care Provider Encounter Details Date Type Department Care Team (Late st Contact Info) Description 08/19/2017 Orders Only Hematology and Oncology at [facility] [place] [address] Kalyan Damico MD Malignant neoplasm of upper-inner [...] sent her a prescription for tamoxifen to [facility], and she will start it on September 16. I will see her next in followup in December, and I will coordinate that appointment with Dr. Farooq and with her mammograms. She knows to contact me in theinterim if she should have any side effects or questions about the tamoxifen. Kalyan Damico MD music teacher in Hematology-Oncology documented in this encounter Plan of Treatment Not on file documented as of this encounter Visit Diagnoses Diagnosis Malignant neoplasm of upper-inner quadrant of left breast in female, estrogen receptor positive documented in this encounter Care Teams Dictating Transcribing Machine Servicer Relationship Specialty Start Date End Date Angie Alonzo MD [address] [place] [address] [facility] 1 [place] [address] PCP - General Family Medicine 06/25/17 documented as of this encounter
--- OUTSIDE RECORDS SUMMARY | 2024-08-12 10:31 | XMS_ITS | Encounter Summary ---
Author Organization [facility] Address [facility] [place] [address] Care Team Providers Care Optoelectronics Engineer Name Role Phone Angie Alonzo MD Primary Care Provider [phone] Reason for Visit * Reason Comments On Treatment Visit Encounter Details Date Type Department Care Team (Late st Contact Info) Description 08/20/2017 8:15 AM EST Office Visit Radiation Oncology at [address] [phone] Bethany Merrill MD [facility] [place] [address] Malignant neoplasm of left female breast, unspecified [...] EST DIAGNOSIS: Breast, L, IDC, low gr, ER+MS+, Her2 neg, s/p lumpectomy & SNB, pT1b [...] goiter documented in this encounter Care Teams Optoelectronics Engineer Relationship Specialty Start Date End Date Angie Alonzo MD [address] [place] [address] PCP - General Family Medicine 06/25/17 documented as of this encounter
--- OUTSIDE RECORDS SUMMARY | 2024-08-12 10:31 | XMS_ITS | Encounter Summary ---
Author Organization [facility] [place] [address] Care Team Providers Care Trimmer Loader Name Role Phone Adis Franklin MD Primary Care Provider Roya lopez Encounter Details Date Type Department Care Team (Latest Contact Info) Description 06/19/2017 8:25 AM EST Laboratory Appointment Lab 3L [facility] [place] [phone] Malignant neoplasm of left breast in female, [...] 8:32 AM EST) Neutrophil % 71.6 % [facility] Neutrophil Absolute 5.77 1.70 - 6.10 x10(3)/[facility] Lymph % 17.6 % [facility] Lymphocytes Abs 1.4 0.9 - 3.2 x10(3)/[facility] Monocyte % 9.1 % [facility] Monocyte Abs 0.7 0.3 - 0.9 x10(3)/[facility] Eos % 0.5 % [facility] Eosinophils Abs 0.0 0.0 - 0.4 x10(3)/[facility] Basophil % 0.7 % [facility] Baso Absolute 0.1 0.0 - 0.1 x10(3)/[facility] Immature Gran % 0.50 % [facility] Comment: Immature granulocytes(IG's)percentage and absolute count will include metamyelocytes, myelocytes, and promyelocytes. Blood smears from CBCs yielding IG's will be scanned manually for concordance. If this scan disagrees with the automated IG or if promyelocytes are noted, a manual differential will be performed. Immature Gran Absolute 0.04 0.00 - 0.04 x10(3)/[facility] Blood specimen (specimen) 06/19/2017 8:32 AM EST 06/19/2017 8:39 AM EST Narrative Resulting Agency Comment Spec In Lab Ashley Pink MD HEMATOLOGY ORDER CHRISS [facility] [place] [address] * Hemogram (06/19/2017 8:32 AM EST) White Blood Cell 8.1 4.0 - 9.5 x10(3)/[facility] Red Blood Cell 4.81 4.00 - 5.21 x10(6)/[facility] Hemoglobin 14.6 11.7 - 15.5 gm/dL [facility] Hematocrit 43.0 35.7 - 45.8 % [facility] Mean Cell Volume 89.4 82.6 - 94.4 fL [facility] Mean Cell Hemoglobin 30.4 27.1 - 32.0 pg [facility] Mean Cell Hemoglobin Concentration 34.0 31.7 - 35.0 gm/dL [facility] Platelet 304 145 - 357 x10(3)/[facility] RDW Standard Deviation 43.2 37.0 - 46.0 [facility] RDW coefficient of variation 13.2 11.5 - 14.1 % [facility] Mean Platelet Volume 8.8 7.6 - 12.9 fL [facility] NRBC% auto 0.0 % [facility] NRBC Absolute 0.000 0.000 - 0.000 x10(3)/[facility] Blood specimen (specimen) 06/19/2017 8:32 AM EST 06/19/2017 8:39 AM EST Narrative Resulting Agency Comment Spec In Lab Ashley Pink MD HEMATOLOGY ORDER CHRISS [facility] [place] [address] * (ABNORMAL) Comprehensive metabolic panel (non-fasting) (06/19/2017 8:32 AM EST) Glucose 140 65 - 199 mg/dL [facility] Comment:Diabetes: >=200 mg/d L plus symptoms Blood Urea Nitrogen 24(H) 8 - 18 mg/dL [facility] Creatinine 0.69(L) 0.70 - 1.20 mg/dL [facility] Sodium 144 135 - 145 mmol/L [facility] Potassium 3.7 3.5 - 5.0 mmol/L [facility] Comment: Please note: ??Patients with WBC >100,000 may have falsely elevated Potassium levels. ??For accurate Potassium quantification in these patients send serum separator tube (gold top) for subsequent determinations. ??Contact the Clinical Chemistry Laboratory if there are any questions. Chloride 102 98 - 107 mmol/L [facility] Carbon Dioxide 27 22 - 31 mmol/L [facility] Anion Gap 15 5 - 15 mmol/L [facility] Calcium 9.7 8.5 - 10.5 mg/dL [facility] Protein, Total 7.3 6.1 - 8.0 gm/dL [facility] Albumin 4.2 3.2 - 5.2 gm/dL [facility] Aspartate Aminotransferase 17 0 - 30 unit/L [facility] Alanine Aminotransferase 16 0 - 30 unit/L [facility] Alkaline Phosphatase 63 40 - 104 unit/L [facility] Bilirubin, Total 0.4 0.2 - 1.3 mg/dL [facility] Est Glomerular Filtration Rate >60 >=60 [facility] Comment: The reported eGFR should be multiplied by 1.2 for patients. The MDRD is not an appropriate measure of renal function for patients with body mass extremes or in patients with acute kidney failure. http://[employer]nkdep [email or web address]/DHMCnkf Blood specimen (specimen) 06/19/2017 8:32 AM EST 06/19/2017 8:39 AM EST Narrative Resulting Agency Comment Spec In Lab Ashley Pink MD CHEMISTRY ORDERA BLES [facility] [place] [address] documented in this encounter Visit Diagnoses Diagnosis Malignant neoplasm of left breast in female, estrogen receptor positive, unspecified site of breast documented in this encounter Care Teams Trimmer Loader Relationship Specialty Start Date End Date Adis Franklin MD PCP - General 05/23/10 06/24/17 documented as of this encounter
--- OUTSIDE RECORDS SUMMARY | 2024-08-12 10:31 | XMS_ITS | Encounter Summary ---
Author Organization [facility] [place] [address] Care Team Providers Care Community Health Education Coordinator Name Role Phone Angie Alonzo MD Primary Care Provider [phone] Reason for Referral * Diagnostic Test (Routine) - Closed Specialty Diagnoses / Procedures Referred By Mima t Referred To Contact Radiology Diagnoses Malignant neoplasm of left female breast, unspecified estrogen receptor status, unspecified site of breast Right thyroid nodule Procedures IR Biopsy Thyroid FNA Bethany Merrill MD [facility] [address] [facility] [place] [address] Referral ID Status Reason Start Date Expiration Date V isits Requested Visits Authorized [id number] Closed Specialty Service Requested 09/02/2017 09/02/2018 1 1 Reason for Visit * Diagnostic Test (Routine) - Closed Specialty Diagnoses / Procedures Referred By Mima rivera Referred To Contact Radiology Diagnoses Malignant neoplasm of left female breast, unspecified estrogen receptor status, unspecified site of breast Right thyroid nodule Procedures IR Biopsy Thyroid FNA Bethany Merrill MD [facility] [place] [address] [place] [address] Referral ID Status Reason Start Date Expiration Date V isits Requested Visits Authorized [id number] Closed Specialty Service Requested 09/02/2017 09/02/2018 1 1 Encounter Details Date Type Department Care Team (Latest Contact Info) Description 09/10/2017 1:23 PM EDT - 09/10/2017 11:59 PM EDT Hospital [place] [address] Bethany Merrill MD [facility] [place] [address] Malignant neoplasm of left female breast, unspecified [...] Tariq, RN - 09/10/2017 3:02 PM EDT [facility] DEPARTMENT OF RADIOLOGY Biopsy Discharge Instructions Thyroid, [...] be reported to you by your primary group care worker or the clinician who ordered the biopsy. Please do notcall us for results as we will not have them. If you have not been contacted by your clinician within 5 business days you should call that office for further information. When to call the Radiology Department: Please call with any questions or concerns. If it is during regular office hours, please call [phone]. If it is after regular office hours, or on weekends or holidays, please call [phone] and ask to speak to the Salesperson Floor Coverings special collections librarian. Revised 07/15/15 documented in this encounter Medications [...] blood-glucose meter (FREESTYLE) Kit 1 each by [facility].(Non-Drug; Combo Route) route as [...] of : 1945 AGE 71 y.o. Address: [address] [address] (home) Mobile: No relevant phone numbers on file. Referring Provider: Bethany Merrill REASON FOR VISIT: Where will study be performed? [facility] Reason for exam and clinical history: CTsim for xrt plan for breast ca showed R thyroid nodule, confirmed by 08/30/17 US @ [facility]. Exam/Procedure requested: R thyroid nodule FNA. Is [...] Garcia ?? - Chintan León MD (Pager #[phone]) 09/06/2017 Allergies Allergen Reactions ??? Penicillins Pertinent PMH: Patient Active Problem List Diagnosis Code ??? Malignant neoplasm of upper-inner quadrant of left breast in female, estrogen receptor [id number], Z17.0 Pertinent PSH: Past Surgical History: Procedure Laterality Date ??? BREAST SURGERY R lumpectomy, benign ??? CHOLECYSTECTOMY ??? HYSTERECTOMY oophorectomy ??? ORTHOPEDIC SURGERY R hip ??? PRO ADJ TISS XFER TRUNK 10.1-30 Left 07/04/2017 ADJ.TISSUE TRANSFER, REARRANGEMENT, TRUNK,10.1 TO 30 SQ CM (WRVU 8.78) performed by Ashley Farooq MD at [facility] MAIN OR ??? PRO BX/REMV, LYMPH NODE, DEEP AXILL Left 07/04/2017 BIOPSY OR EXCISION OF LYMPH NODE(S), OPEN, DEEP AXILLARY NODE(S) (WRVU 6.43) performed by Ashley Farooq MD at [facility] MAIN OR ??? PRO INTRAOP SENTINEL LYMPH ID W/DYE INJECTION Left 07/04/2017 INTRAOPERATIVE ID (MAPPING) SENTINEL LYMPH NODE,INCLUDES INJECTION (WRVU 2.5) performed by Ashley Farooq MD at [facility] MAIN OR ??? PRO MASTECTOMY, PARTIAL Left 07/04/2017 MASTECTOMY PARTIAL (WRVU 10.13) performed by Ashley Farooq MD at [facility] MAIN OR Date/Procedure Med's given/comments none Laboratory [...] blood-glucose meter (FREESTYLE) Kit 1 each by [facility].(Non-Drug; Combo Route) route as [...] Procedure Name Priority Date/Time Associated Diagnosis Comments NON-BOOTH OPERATOR FINAL REPORT Routine 09/10/2017 3:51 PM EDT IR FNA THYROID NODULE Routine 09/10/2017 3:01 PM EDT Malignant neoplasm of left female breast, unspecified estrogen receptor status, unspecified site of breast Right thyroid nodule CYTOPATHOLOGY NON-GYNECOLOGICAL Routine 09/10/2017 1:50 PM EDT documented in this encounter Results * Non-Watch Crystal Grinder Final Report (09/10/2017 3:51 PM EDT) Diagnosis Discussion [id number] ? Location: 3Z The signing pathologist has (i) examined the relevant preparation(s) for the specimen(s) and (ii) rendered or confirmed the diagnosis(es). . ? Non-Watch Crystal Grinder Final DIAGNOSIS Atypical Electronically signed by: ??Ga De MD Verified: ??09/12/2017 ?Cytopathologis t Performed at: ??-[facility] Dept. of Pathology, [place], [place] DISCUSSION Thyroid: right (US-guided FNA) - Atypia of Undetermined Significance (see note). Low cellularity aspirate in which there appears to be a predominance of microfollicles/t hree dimensional cell clusters over macrofollicles. Colloid is not conspicuous. Note: Clinical correlation is recommended. Molecular testing or a repeat aspirate after an appropriate interval of observation might be helpful if clinically indicated. Reference: Jim SAEXNA, Lucy DIANA. The [place] System for Reporting Thyroid Cytopathology. [place]: [place]; 2018. CLINICAL INFORMATION Specimen Source : [...] Pap Stain 3. 09/12/2017 3:22 PM EDT [facility] THYROID STRUCTURE / Unknown 09/10/2017 3:51 PM EDT 09/10/2017 3:51 PM EDT Bethany Merrill MD PATHOLOGY/CYTOLOGY O RDERABLES [facility] [place] [address] * IR Biopsy Thyroid FNA (09/10/2017 3:01 [...] thyroid nodule, confirmed by 08/30/17 US @ [facility].; Exam/Procedure requested: R thyroid nodule FNA. Technique: [...] PM EDT 09/10/2017 1:50 PM EDT Narrative [facility] - 09/10/2017 1:50 PM EDT Specimen requisition ordered. ??Separate Pathology report to follow Bethany Merrill MD PATHOLOGY/CYTOLOGY O RDERABLES [facility] [place] [address] documented in this encounter Visit Diagnoses Diagnosis Malignant neoplasm of left female breast, unspecified estrogen receptor status, unspecified site of breast Right thyroid nodule Nontoxic uninodular goiter documented in this encounter Care Teams Community Health Education Coordinator Relationship Specialty Start Date End Date Angie Alonzo MD [address] [facility] 1 [place] [address] PCP - General Family Medicine 06/25/17 documented as of this encounter
--- OUTSIDE RECORDS SUMMARY | 2024-08-12 10:31 | XMS_ITS | Encounter Summary ---
Author Organization [facility] [address] Care Team Providers Care Clam Digger Name Role Phone Angie Alonzo MD Primary Care Provider [phone] Encounter Details Date Type Department Care Team (Late st Contact Info) Description 07/16/2017 Telephone Hematology [place] [phone] Shirley Ding Social History Tobacco Use Types [...] Referral to Radiation Oncology:Yes External Radiation Oncologist: Desirae Referral to Plastic Surgery: No documented in this encounter Plan of Treatment Not on file documented as of this encounter Visit Diagnoses Not on filedocumented in this encounter Care Teams Clam Digger Relationship Specialty Start Date End Date Angie Alonzo MD [address] [place] [address] PCP - General Family Medicine 06/25/17 documented as of this encounter
--- OUTSIDE RECORDS SUMMARY | 2024-08-12 10:31 | XMS_ITS | Encounter Summary ---
Author Organization [facility] [place] [address] Care Team Providers Care Dough Brake Machine Operator Name Role Phone Angie Alonzo MD Primary Care Provider [phone] Encounter Details Date Type Department Care Team (Late st Contact Info) Description 09/02/2017 Telephone Radiation Oncology at [address] [address] Mayra Glass RN Social History [...] See below. I updated Dr. Merrill that [facility]'s pharmacy called requesting clarification regarding where to apply silvadene and verbally clarified with her the location of where to apply this medication. She states patient should apply 2 Gm twice daily to left breast. Telephone call to [facility]'s pharmacy and advised that Dr. Merrill orders 2 Gm bid to left breast. This was read back by pharmacist. * Telephone Encounter - Mayra Glass RN - 09/02/2017 12:10 PM EST ----- Message from Nia Catalan sent at 09/02/2017 10:47 AM EST ----- Regarding: VIVEK Merrill patient: [facility] pharmacy clarification on cream ----- Message ----- From: Carolina Melo Sent: 09/02/2017 10:28 AM To: Ed Rad Onc Stevedoring Supervisor Subject: Desirae patient: [facility] pharmacy clarification # [facility] called asking about more clear directions for where the cream : silver sulfADIAZINE is supposed to be applied? Kyrie is the person who called : [phone] documented in this encounter Plan of Treatment Not on file documented as of this encounter Visit Diagnoses Not on filedocumented in this encounter Care Teams Dough Brake Machine Operator Relationship Specialty Start Date End Date Angie Alonzo MD [facility] [address] [facility] 1 [place] [address] PCP - General Family Medicine 06/25/17 documented as of this encounter
--- OUTSIDE RECORDS SUMMARY | 2024-08-12 10:31 | XMS_ITS | Encounter Summary ---
Author Organization [facility] Address [facility] [place] [address] Care Team Providers Care Head Usher Name Role Phone Angie Alonzo MD Primary Care Provider [phone] Reason for Referral * Consultation (Routine) - Closed Specialty Diagnoses / Procedures Referred By Mima rivera Referred To Contact Endocrinology Diagnoses Thyroid nodule Malignant neoplasm of left female breast, unspecified estrogen receptor status, unspecified site of breast Bethany Merrill MD [facility] [place] [address] [facility] Endocrinology [address] [place] [phone] Referral ID Status Reason Start Date Expiration Date V isits Requested Visits Authorized [id number] Closed Consult, Test & Treat 09/18/2017 09/18/2018 1 1 Reason for Visit * Reason Onset Date Comments Other 09/18/2017 Encounter Details Date Type Department Care Team (Late st Contact Info) Description 09/18/2017 Telephone Radiation Oncology at [address] [phone] Bethany Merrill MD [facility] [place] [address] Other Social History Tobacco Use Types Packs/Day Years Used Date Smoking Tobacco: Never Smokeless Tobacco: Never Sex and Gender Information Value Date Recorded Sex Assigned at Not on file Gender Identity Not on file Sexual Orientation Not on file documented as of this encounter Miscellaneous Notes * Telephone Encounter - Bethany Merrill MD - 09/18/2017 11:59 AM EDT I called Abimbola to inform her that the US guided FNA of her R thyroid nodule has been reviewed as showing atypia, of undetermined significance. I recommended referral to Endocrine @ [facility] & she agrees; ordered. documented in this [...] breast documented in this encounter Care Teams Head Usher Relationship Specialty Start Date End Date Angie Alonzo MD [address] [place] [address] PCP - General Family Medicine 06/25/17 documented as of this encounter
--- OUTSIDE RECORDS SUMMARY | 2024-08-12 10:31 | XMS_ITS | Encounter Summary ---
Author Organization [facility] [place] [address] Care Team Providers Care Biofuels Production Manager Name Role Phone Adis Franklin MD Primary Care Provider Roya lopez Encounter Details Date Type Department Care Team (Late st Contact Info) Description 05/31/2017 Telephone [place] [phone] Dagmar Lin RN Social History Tobacco Use [...] a 71 y.o. female with newly diagnosed ER/FL+/HER2 brandon pending left breast IDC (left breast U/S guided biopsy 05/28/2017 at [facility]). Abimbola sounds positive and has support from [...] Breast Cancer Treatment Handbook. She declined the [facility] Early Stage Breast Cancer program). Plan to [...] on filedocumented in this encounter Care Teams Biofuels Production Manager Relationship Specialty Start Date End Date Adis Franklin MD PCP - General 05/23/10 06/24/17 documented as of this encounter
--- OUTSIDE RECORDS SUMMARY | 2024-08-12 10:31 | XMS_ITS | Encounter Summary ---
Author Organization [facility] Address [facility] [place] [address] Care Team Providers Care Production Weigher Name Role Phone Angie Alonzo MD Primary Care Provider Reason for Referral * Consultation (Routine) - Closed Specialty Diagnoses / Procedures Referred By Contac t Referred To Contact Radiation Oncology Diagnoses Malignant neoplasm of upper-inner quadrant of left female breast, unspecified estrogen receptor status Procedures Simulation for Radiation Therapy Planning Bethany Merrill MD [facility] RADIATION ONCOLOGY [place] [id number] [facility] Rad Onc Office [address] [place] [phone] Referral ID Status Reason Start Date Expiration Date V isits Requested Visits Authorized [id number] Closed Consult, Test & Treat 07/22/2017 07/22/2018 1 1 Reason for Visit * Reason Comments Radiation Consult * Consultation (Routine) - Closed Specialty Diagnoses / Procedures Referred By Contac t Referred To Contact Radiation Oncology Diagnoses Malignant neoplasm of upper-inner quadrant of left female breast, unspecified estrogen receptor status Procedures Simulation for Radiation Therapy Planning Bethany Merrill MD [facility] [place] [address] [facility] Rad Onc Office [address] [place] [phone] Referral ID Status Reason Start Date Expiration Date V isits Requested Visits Authorized [id number] Closed Consult, Test & Treat 07/22/2017 07/22/2018 1 1 Encounter Details Date Type Department Care Team (Late st Contact Info) Description 07/22/2017 10:00 AM EST Office Visit Radiation Oncology at [address] [phone] Bethany Merrill MD [facility] [address] [place] [address] Malignant neoplasm of upper-inner quadrant of left [...] even think about it. SOCIAL ASSESSMENT: See [facility] social assessment information entered. Support Systems: family Barriers to treatment: none identified. Referrals/Interventions: REGENERATOR OPERATOR on day of simulation. RADIATION SPECIFIC TEACHING: [...] on screening mmg. 11/06/16 B screening mmg ([facility]): Questionable increased density medial subareolar L breast. [...] assisted core bx. Path: IDC, low gr, ER+MI+, Her2 FISH neg. 06/19/[address] [...] 8.78) performed by Ashley Farooq MD at [facility] MAIN OR ??? PRO BX/REMV, LYMPH NODE, DEEP AXILL Left 07/04/2017 BIOPSY OR EXCISION OF LYMPH NODE(S), OPEN, DEEP AXILLARY NODE(S) (WRVU 6.43) performed by Ashley Farooq MD at [facility] MAIN OR ??? PRO INTRAOP SENTINEL LYMPH ID W/DYE INJECTION Left 07/04/2017 INTRAOPERATIVE ID (MAPPING) SENTINEL LYMPH NODE,INCLUDES INJECTION (WRVU 2.5) performed by Ashley Farooq MD at [facility] MAIN OR ??? PRO MASTECTOMY, PARTIAL Left 07/04/2017 MASTECTOMY PARTIAL (WRVU 10.13) performed by Ashley Farooq MD at [facility] MAIN OR R breast lumpectomy 20 [...] A: Breast ca, L, IDC, low gr, ER+MI+, Her2 neg, s/p [...] treated breast; cough; shortness of breath; tiredness. Late/longterm side effects to breast discussed include: Treated [...] of 40 min face to face visit w/[place] spent discussing rationale for xrt; hoped for [...] status documented in this encounter Care Teams Production Weigher Relationship Specialty Start Date End Date Angie Alonzo MD [address] [facility] 1 [place] [address] PCP - General Family Medicine 06/25/17 documented as of this encounter
--- OUTSIDE RECORDS SUMMARY | 2024-08-12 10:31 | XMS_ITS | Encounter Summary ---
Author Organization [facility] Address [facility] [place] [address] Care Team Providers Care Magazine Writer Name Role Phone Angie Alonzo MD Primary Care Provider [phone] Encounter Details Date Type Department Care Team (Late st Contact Info) Description 09/06/2017 [place] [phone] Chintan León MD Coagulopathy Social History Tobacco Use Types Packs/Day [...] of left breast in female, estrogen receptor [id number], Z17.0 Past Medical History: Diagnosis Date ??? [...] 8.78) performed by Ashley Farooq MD at [facility] MAIN OR ??? PRO BX/REMV, LYMPH NODE, DEEP AXILL Left 07/04/2017 BIOPSY OR EXCISION OF LYMPH NODE(S), OPEN, DEEP AXILLARY NODE(S) (WRVU 6.43) performed by Ashley Farooq MD at [facility] MAIN OR ??? PRO INTRAOP SENTINEL LYMPH ID W/DYE INJECTION Left 07/04/2017 INTRAOPERATIVE ID (MAPPING) SENTINEL LYMPH NODE,INCLUDES INJECTION (WRVU 2.5) performed by Ashley Farooq MD at [facility] MAIN OR ??? PRO MASTECTOMY, PARTIAL Left 07/04/2017 MASTECTOMY PARTIAL (WRVU 10.13) performed by Ashley Farooq MD at [facility] MAIN OR Medications: Current Outpatient Prescriptions [...] meter (FREESTYLE) Kit 1 each by [facility].(Non-Drug; Combo Route) route as needed for Other. [...] approved by Dr. Radha León MD (Pager #[phone]) 09/06/2017 documented in this encounter Plan of Treatment Not on file documented as of this encounter Results * Platelet count (09/10/2017 1:17 PM EDT) Platelet 297 145 - 357 x10(3)/mc L [facility] Immature Plt % 1.0 0.0 - 7.4 % [facility] Comment: Limitation of the Immature Platelet Fraction (IPF)-May be less reliable when the platelet count is less than 41c279/uL due to statistical imprecision. The IPF value [...] in a decreased state of production. References: [employer] The Clinical Value of the Immature Platelet Fraction (IPF) in Cell Recovery Document Number 10-1143 11/2010 [employer] The Role of the Immature Platelet Fraction (IPF) in the Differential Diagnosis of Thrombocytopenia, Document [id number] V05 P011/11 Blood specimen (specimen) 09/10/2017 1:17 PM EDT 09/10/2017 1:23 PM EDT Narrative Resulting Agency Comment Spec In Lab Tutu Garcia MD HEMATOLOGY ORDERABLE S [facility] [place] [address] * Prothrombin Time (09/10/2017 1:17 PM EDT) Prothrombin Time 12.9 11.8 - 14.0 sec [facility] International Normalization Ratio 1.0 0.9 - 1.1 [facility] Comment: An INR <2.0 indicates [...] Lab Tutu Garcia MD HEMATOLOGY ORDERABLE S [facility] [place] [address] documented in this encounter Visit Diagnoses Diagnosis Coagulopathy Other and unspecified coagulation defects documented in this encounter Care Teams Magazine Writer Relationship Specialty Start Date End Date Angie Alonzo MD [facility] [address] [place] [address] PCP - General Family Medicine 06/25/17 documented as of this encounter
--- OUTSIDE RECORDS SUMMARY | 2024-08-12 10:31 | XMS_ITS | Encounter Summary ---
Author Organization [facility] Address [facility] [place] [address] Care Team Providers Care Foaming Machine Operator Name Role Phone Angie Alonzo MD Primary Care Provider [phone] Reason for Referral * Diagnostic Test (Routine) - Closed Specialty Diagnoses / Procedures Referred By Mima irvera Referred To Contact Radiology Diagnoses Malignant neoplasm of left female breast, unspecified estrogen receptor status, unspecified site of breast Right thyroid nodule Procedures IR Biopsy Thyroid FNA Bethany Merrill MD [facility] [place] [address] [place] [address] Referral ID Status Reason Start Date Expiration Date V isits Requested Visits Authorized [id number] Closed Specialty Service Requested 09/02/2017 09/02/2018 1 1 Encounter Details Date Type Department Care Team (Late st Contact Info) Description 09/02/2017 Orders Only [place] [address] Bethany Merrill MD [facility] [place] [address] 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 Changes in Medical Condition: She is [...] thyroid nodule, confirmed by 08/30/17 US @ [facility].; Exam/Procedure requested: R thyroid nodule FNA. Technique: [...] R thyroidnodule, confirmed by 08/30/17 US @ [facility].; Exam/Procedure requested: R thyroid noduleFNA. Technique: After [...] goiter documented in this encounter Care Teams Foaming Machine Operator Relationship Specialty Start Date End Date Angie Alonzo MD [facility] [address] [facility] 1 [place] [address] PCP - General Family Medicine 06/25/17 documented as of this encounter
--- OUTSIDE RECORDS SUMMARY | 2024-08-12 10:31 | XMS_ITS | Encounter Summary ---
Author Organization [facility] [place] [address] Care Team Providers Care Student Services Advisor Name Role Phone Angie Alonzo MD Primary Care Provider [phone] Reason for Visit * Reason Comments Advice Only Encounter Details Date Type Department Care Team (Late st Contact Info) Description 06/19/2017 9:30 AM EST Office Visit Hematology and Oncology at [facility] [place] [address] Ashley Farooq MD Maynard, Kimberly J, GIANNI Malignant neoplasm of lower-outer quadrant of left [...] not concordant, so she was sent to [facility] and had repeat biopsy which did show a low grade, ER+MN+HER2 neg breast cancer. She is here today [...] blood-glucose meter (FREESTYLE) Kit, 1 each by [facility].(Non-Drug; Combo Route) route as needed forOther., Disp: [...] mammo: 05/22/17 COMPARISONS: Multiple prior mammograms 2008 ?? FINDINGS: The breasts are predominantly [...] without necrosis). Microcalcifications: ??N/A ER + >90% MN + >90% HER2 neg 05/20/17 Needle biopsies: [...] a mammogram detected 1cm left breast cancer ER+MN+HER2 neg. We discussed the treatment options of [...] will meet with medical and radiation (in [facility]) oncologists after surgery. 3. Contact phone number for questions or concerns in the immediate post- operative period. 4. Comprehensive Breast Program Binder. 5. Post Breast Surgery Exercises handout created by physical therapists at [facility]. 6. Breast Cancer Treatment Process care [...] positive documented in this encounter Care Teams Student Services Advisor Relationship Specialty Start Date End Date Angie Alonzo MD [address] [place] [address] PCP - General Family Medicine 06/25/17 documented as of this encounter
--- OUTSIDE RECORDS SUMMARY | 2024-08-12 10:31 | XMS_ITS | Encounter Summary ---
Author Organization [facility] Address [facility] [place] [address] Care Team Providers Care Stylist Apprentice Name Role Phone Angie Alonzo MD Primary Care Provider [phone] Encounter Details Date Type Department Care Team (Late st Contact Info) Description 07/04/2017 11:24 AM EST - 07/04/2017 6:05 PM EST Hospital Encounter Same Day Program at [facility] [place] [phone] Ashley Gloria MD Discharge Disposition: Home Social History Tobacco Use [...] Dr. Gloria in 2-3 weeks Please call [phone] to confirm date and time of your appointment if you do not hear from us inthe week. Future Appointments Date Time Provider Department Center 07/17/2017 8:45 AM Ashley Gloria MD [facility] 07/17/2017 9:30 AM Kalyan Damico MD [facility] 07/22/2017 9:[address] [facility] 07/22/2017 10:00 AM Bethany Merrill MD [facility] Call Doctor for: Worsening redness or drainage from your incision lasting longer than 5 days following surgery Any foul-smelling drainage from the incision Fevers greater than 101 degrees F Persistent nausea or vomiting (this may be related to opioid pain medications) Phone number for questions: [phone] before 5 PM weekdays [phone] after 5 PM and on weekends/holidays documented [...] not concordant, so she was sent to [facility] and had repeat biopsy which did show a low grade, 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 She is here today [...] blood-glucose meter (FREESTYLE) Kit, 1 each by [facility].(Non-Drug; Combo Route) route as needed forOther., Disp: [...] without necrosis). Microcalcifications: ??N/A ER + >90% MD + >90% HER2 neg ?? 05/20/17 Needle [...] a mammogram detected 1cm left breast cancer ER+MD+HER2 neg. We discussed the treatment options of [...] Questions answered. Ashley Gloria MD 07/04/2017 Pager [phone] documented in this encounter Miscellaneous Notes * Op Note - Ashley Gloria MD - 07/04/2017 4:49 PM EST [facility] Operative Note Patient Name: Abimbola Dumas : [id number] MR#: [id number] Case Date: 07/04/2017 Surgeon: Surgeon(s) and Role: * Ahsley Gloria MD - Primary * Roseanna Ghosh [...] DERM) Left breast partial mastectomy OR 27, #[id number] LEFT BREAST CANCER Left breast partial mastectomy Yes 07/04/2017 3:26 PM Time removed from patient: 3:22 PM SPECIMEN TO PATHOLOGY (SURGICAL OR DERM) Left axillary sentinel lymph node #1 OR 27, #[id number] LEFT BREAST CANCER Left axillary sentinel lymph [...] a mammogram detected 1cm left breast cancer ER+MD+HER2 neg. Plan for Left breast partial mastectomy [...] Operative Note Patient Name: Abimbola Dumas : [id number] MR#: [id number] Case Date: 07/04/2017 Surgeon: Surgeon(s) and Role: [...] DERM) Left breast partial mastectomy OR 27, #[id number] LEFT BREAST CANCER Left breast partial mastectomy Yes 07/04/2017 3:26 PM Time removed from patient: 3:22 PM SPECIMEN TO PATHOLOGY (SURGICAL OR DERM) Left axillary sentinel lymph node #1 OR 27, #[id number] LEFT BREAST CANCER Left axillary sentinel lymph [...] PM EST 07/04/2017 3:47 PM EST Narrative [facility] - 07/04/2017 3:47 PM EST Specimen requisition ordered. ??Separate Pathology report to follow Ashley Pink MD PATHOLOGY/CYTOLO GY ORDERABLES Performing Organization Address [facility] Co de Phone Number [facility] [place] [address] * Specimen to Pathology (surgical or derm) (07/04/2017 3:26 PM EST) AP Specimen 07/04/2017 3:26 PM EST 07/04/2017 3:26 PM EST Narrative [facility] - 07/04/2017 3:26 PM EST Specimen requisition ordered. ??Separate Pathology report to follow Ashley Pink MD PATHOLOGY/CYTOLO GY ORDERABLES Performing Organization Address [facility]/[place] [address] * Surgical Pathology Report (07/04/2017 3:22 PM EST) Final Diagnosis [id number] ? Location: SDP; SD36; A The signing pathologist has (i) [...] ?? Invasive ductal carcinoma ? Histologic Grade (Goldsmith Histologic Score) ?Glandular (Acinar) / Tubular Differentiation: [...] Lymph Nodes Examined: ?1 ? Number of Ismay Nodes Examined: ?1 Pathologic Stage Classification (pTNM, AJCC 8th Edition) ? Primary Tumor (Invasive Carcinoma) (pT): ?pT1b ? Regional Lymph Nodes (pN) ?Category (pN): ?? pN0 Tumor Block(s): ?? B12 Normal Block(s): ?? B6 . DIAGNOSIS 2016 AJCC 8th Edition CAP Annual Release Electronically signed by: ??Natty Mederos DO Verified: ??07/12/2017 ?Pathologist Performed at: ??-[facility] Dept. of Pathology, [place], [place] ADDITIONAL STUDIES Immunohistochemistry Studies: Formalin-fixed, paraffin-embedded [...] in slice V. . SPECIMEN PROCESSING SECTIONS/PROCESSING: (1)banking representative sections of slice I, yellow margin; (2)banking representative sections of slice II; (3-7) full-thickness section ??slice IV; (8-13) full-thickness slice V with green margin in cassette 8, black margin in cassette 9, black/orange margin in cassette 10 orange margin in cassette 11 and 12 (includes biopsy clip site) and central edge of biopsy site in cassette 13; (14)banking representative sections of slice ; (15-16)representativ e sections of slice VII; (17) banking representative sections of slice IX, red/blue margin. (R17) Ischemic Time: 120 minutes ??pps 07/12/2017 9:43 AM EST [facility] BREAST STRUCTURE / Unknown 07/04/2017 3:22 PM EST 07/04/2017 3:22 PM EST BREAST STRUCTURE / Unknown 07/04/2017 3:22 PM EST 07/04/2017 3:22 PM EST Ashley Pink MD PATHOLOGY/CYTOLO GY ORDERABLES [facility] [place] [address] documented in this encounter Visit Diagnoses Not [...] from all sources in 24 hours., Routine 1656 (Given - Provid er: Annika Espinoza RN) BUpivacaine (PF) (MARCAINE) 0.5 % (5 mg/mL) injection (CANCELED) ONCE PRN, Starting on Lawanda 07/04/17 at 1557, Until Lawanda 18 at 2006, Intra-Operative (Intra-Procedure), Routine 155 (Given - Provid er: Ashley Pink MD - Comment: 0.5% bupivacaine mixed 1:1 with 1% lidocaine. Total of 16 ml of mixture used.) lidocaine (XYLOCAINE) 10 mg/mL (1 %) injection (CANCELED) ONCE PRN, Starting on Lawanda 07/04/17 at 1558, Until Lawanda 07/04/17 at 2006, Intra-Operative (Intra-Procedure), Routine 155 (Given - Provid er: Ashley Pink MD [...] RN) documented in this encounter Care Teams Stylist Apprentice Relationship Specialty Start Date End Date Angie Alonzo MD [address] [place] [address] PCP - General Family Medicine 06/25/17 documented as of this encounter
--- OUTSIDE RECORDS SUMMARY | 2024-08-12 10:31 | XMS_ITS | Encounter Summary ---
Author Organization [facility] Address [facility] [place] [address] Care Team Providers Care Local City Driver Name Role Phone Angie Alonzo MD Primary Care Provider [phone] Reason for Visit * Reason Comments Radiation Follow-up Encounter Details Date Type Department Care Team (Late st Contact Info) Description 11/04/2017 2:30 PM EDT Office Visit Radiation Oncology at [address] [phone] Bethany Merrill MD [facility] [place] [address] Malignant neoplasm of left female breast, unspecified [...] breast for breast ca, IDC, low gr, ER+PA+, Her2 [...] 8.78) performed by Ashley Farooq MD at [facility] MAIN OR ??? PRO BX/REMV, LYMPH NODE, DEEP AXILL Left 07/04/2017 BIOPSY OR EXCISION OF LYMPH NODE(S), OPEN, DEEP AXILLARY NODE(S) (WRVU 6.43) performed by Ashley Farooq MD at [facility] MAIN OR ??? PRO INTRAOP SENTINEL LYMPH ID W/DYE INJECTION Left 07/04/2017 INTRAOPERATIVE ID (MAPPING) SENTINEL LYMPH NODE,INCLUDES INJECTION (WRVU 2.5) performed by Ashley Farooq MD at [facility] MAIN OR ??? PRO MASTECTOMY, PARTIAL Left 07/04/2017 MASTECTOMY PARTIAL (WRVU 10.13) performed by Ashley Farooq MD at [facility] MAIN OR R breast lumpectomy 20 yrs [...] breast documented in this encounter Care Teams Local City Driver Relationship Specialty Start Date End Date Angie Alonzo MD [address] [place] [address] PCP - General Family Medicine 06/25/17 documented as of this encounter
--- OUTSIDE RECORDS SUMMARY | 2024-08-12 10:31 | XMS_ITS | Encounter Summary ---
Author Organization [facility] Address [facility] [place] [address] Care Team Providers Care Aboriginal Education Teacher Name Role Phone Angie Alonzo MD Primary Care Provider [phone] Encounter Details Date Type Department Care Team (Late st Contact Info) Description 07/04/2017 10:30 AM [facility] Hospital Encounter Mammography at [facility] [place] [address] Ashley Farooq MD Breast mass Discharge Disposition: Home Social History [...] mg documented in this encounter Care Teams Aboriginal Education Teacher Relationship Specialty Start Date End Date Angie Alonzo MD [address] [place] [address] PCP - General Family Medicine 06/25/17 documented as of this encounter
--- OUTSIDE RECORDS SUMMARY | 2024-08-12 10:31 | XMS_ITS | Encounter Summary ---
Author Organization [facility] [place] [address] Care Team Providers Care Classroom Monitor Name Role Phone Adis Franklin MD Primary Care Provider Roya lopez Encounter Details Date Type Department Care Team (Late st Contact Info) Description 05/30/2017 Orders Only General Surgery at [facility] [place], [facility] [place] [address] Ashley Farooq MD Malignant neoplasm of left breast in female, [...] EST) Glucose 140 65 - 199 mg/dL [facility] Comment:Diabetes: >=200 mg/d L plus symptoms Blood Urea Nitrogen 24(H) 8 - 18 mg/dL [facility] Creatinine 0.69(L) 0.70 - 1.20 mg/dL [facility] Sodium 144 135 - 145 mmol/L [facility] [...] [facility] Carbon Dioxide 27 22 - 31 mmol/L [facility] Anion Gap 15 5 - 15 mmol/L [facility] Calcium 9.7 8.5 - 10.5 mg/dL [facility] Protein, Total 7.3 6.1 - 8.0 gm/dL [facility] Albumin 4.2 3.2 - 5.2 gm/dL [facility] Aspartate Aminotransferase 17 0 - 30 unit/L [facility] Alanine Aminotransferase 16 0 - 30 unit/L [facility] Alkaline Phosphatase 63 40 - 104 unit/L [facility] Bilirubin, Total 0.4 0.2 - 1.3 mg/dL [facility] Est Glomerular Filtration Rate >60 >=60 [facility] Comment: The reported eGFR should be multiplied by 1.2 for patients. The MDRD is not an appropriate measure of renal function for patients with body mass extremes or in patients with acute kidney failure. http://[employer]/DHnkdep http://[employer]/DHMCnkf Blood specimen (specimen) 06/19/2017 8:32 AM EST 06/19/2017 8:39 AM EST Narrative Resulting Agency Comment Spec In Lab Ashley Pink MD CHEMISTRY ORDERA BLES [facility] [place] [address] documented in this encounter Visit Diagnoses Diagnosis Malignant neoplasm of left breast in female, estrogen receptor positive, unspecified site of breast documented in this encounter Care Teams Classroom Monitor Relationship Specialty Start Date End Date Adis Franklin MD PCP - General 05/23/10 06/24/17 documented as of this encounter
--- OUTSIDE RECORDS SUMMARY | 2024-08-12 10:31 | XMS_ITS | Encounter Summary ---
Author Organization [facility] Address [facility] [place] [address] Care Team Providers Care Product Marketer Name Role Phone Adis Franklin MD Primary Care Provider Roya lopez Encounter Details Date Type Department Care Team (Late st Contact Info) Description 05/21/2017 External [place] [address] Provider, Scanning Social History Tobacco Use Types [...] on filedocumented in this encounter Care Teams Product Marketer Relationship Specialty Start Date End Date Adis Franklin MD PCP - General 05/23/10 06/24/17 documented as of this encounter
--- OUTSIDE RECORDS SUMMARY | 2024-08-12 10:31 | XMS_ITS | Encounter Summary ---
Author Organization [facility] Address [facility] [place] [address] Care Team Providers Care Seismograph Helper Name Role Phone Adis Franklin MD Primary Care Provider Roya lopez Encounter Details Date Type Department Care Team (Latest Contact Info) Description 05/28/2017 1:21 PM EST Hospital [place] [address] Catherine Ghotra MD [facility] DR DIAGNOSTIC [place] [address] Abnormal finding on breast imaging Discharge Disposition: [...] using a 12g vacuum assist device. A [place] marker clip was deployed. A follow-up mammogram [...] breast documented in this encounter Care Teams Seismograph Helper Relationship Specialty Start Date End Date Adis Franklin MD PCP - General 05/23/10 06/24/17 documented as of this encounter
--- OUTSIDE RECORDS SUMMARY | 2024-08-12 10:31 | XMS_ITS | Encounter Summary ---
Author Organization [facility] Address [facility] [place] [address] Care Team Providers Care Mexican Food Machine Tender Name Role Phone Adis Franklin MD Primary Care Provider Roya lopez Encounter Details Date Type Department Care Team (Latest Contact Info) Description 05/20/2017 3:27 PM EST - 05/20/2017 11:59 PM EST Hospital [place] [address] Discharge Disposition: Home Social History Tobacco Use [...] Report (05/20/2017 10:10 AM EST) Final Diagnosis [id number] ? Location: OPW The signing pathologist has (i) examined the relevant preparation(s) for the specimen(s) and (ii) rendered or confirmed the diagnosis(es). . ?Surgical Pathology DIAGNOSIS CONSULTATION CASE Needle biopsies: ?Left breast Diagnosis: ?Scant benign breast and adipose tissue (see Discussion) Microcalcificatio ns: ??N/A Electronically signed by: ??Hernandez MARTÍNEZ, Román Kruger Verified: ??05/21/2017 ?Pathologist Performed at: ??-[facility] Dept. of Pathology, [place], [place] DISCUSSION Definitive lesional tissue is not identified; clinical and radiologic correlation is recommended. CLINICAL INFORMATION Specimen Submitted: CONSULTATION CASE A - 2 slide(s) labeled [id number], collection date 12/04/2016. [id number] Report to: [facility] Surgical Pathology Department [facility], [facility], 2nd Floor [address], [place] ??[address] SPECIMEN PROCESSING [facility] ([facility]) pathology slide(s) are reviewed. ??Refer to Diagnosis and Specimen Submitted for specific case information. For the full text of the [facility] report(s) please refer to Non- Documentation Pathology in the electronic health record (eDH). 05/21/2017 2:23 PM EST [facility] Consult Case 05/20/2017 10:1 0 AM EST 05/20/2017 10:10 AM EST Camryn Roberts MD PATHOLOGY/CYTOLOGY ORDERABLES [facility] [place] [address] documented in this encounter Visit Diagnoses Not on filedocumented in this encounter Care Teams Mexican Food Machine Tender Relationship Specialty Start Date End Date Adis Franklin MD PCP - General 05/23/10 06/24/17 documented as of this encounter
--- OUTSIDE RECORDS SUMMARY | 2024-08-12 10:31 | XMS_ITS | Encounter Summary ---
Author Organization [facility] [place] [address] Care Team Providers Care Rug Cleaner Name Role Phone Adis Franklin MD Primary Care Provider Unavailnilo ble Encounter Details Date Type Department Care Team (Late st Contact Info) Description 06/19/2017 Orders Only General Surgery at [facility] [phone] Ashley Farooq MD Breast mass Social History Tobacco Use Types [...] Ashley Pink MD IMG MAMMO ORDERA BLES * Mammo [place] Node Injection (07/04/2017 11:37 AM EST) Anatomical [...] approve the above interpretation. Ashley Pink MD [facility] MAMMO ORDERA BLES * Mammo Needle Localization Left (07/04/2017 11:35 [...] breast documented in this encounter Care Teams Rug Cleaner Relationship Specialty Start Date End Date Adis Franklin MD PCP - General 05/23/10 06/24/17 documented as of this encounter
--- OUTSIDE RECORDS SUMMARY | 2024-08-12 10:31 | XMS_ITS | Encounter Summary ---
Author Organization [facility] Address [facility] [place] [address] Care Team Providers Care Mannequin Mounter Name Role Phone Adis Franklin MD Primary Care Provider Roya lopez Encounter Details Date Type Department Care Team (Latest Contact Info) Description 04/09/2017 - 04/09/2017 11:59 PM EDT Hospital Encounter Radiology Library at [facility] [place] [phone] Eder Condon MD Breast pain Discharge Disposition: Home Social History [...] Ultrasound Study (04/09/2017 12:00 AM EDT) Narrative [facility] - 05/17/2017 4:06 PM EST This exam is for storage only and is auto-finalizing. Eder Condon MD IMG FILM LIBRARY ORD ERABLES [facility] [place], [place] documented in this encounter Visit Diagnoses Diagnosis Breast pain Mastodynia documented in this encounter Care Teams Mannequin Mounter Relationship Specialty Start Date End Date Adis Franklin MD PCP - General 05/23/10 06/24/17 documented as of this encounter
--- OUTSIDE RECORDS SUMMARY | 2024-08-12 10:31 | XMS_ITS | Encounter Summary ---
Author Organization [facility] [place] [address] Care Team Providers Care Underwater Roboticist Name Role Phone Angie Alonzo MD Primary Care Provider [phone] Encounter Details Date Type Department Care Team (Late st Contact Info) Description 07/18/2017 Orders Only General Surgery at [facility] [place] [address] Ashley Farooq MD Malignant neoplasm of upper-outer [...] positive documented in this encounter Care Teams Underwater Roboticist Relationship Specialty Start Date End Date Angie Alonzo MD [facility] [address] [place] [address] PCP - General Family Medicine 06/25/17 documented as of this encounter
--- OUTSIDE RECORDS SUMMARY | 2024-08-12 10:31 | XMS_ITS | Encounter Summary ---
Author Organization [facility] Address [facility] [place] [address] Care Team Providers Care Lens Cementer Name Role Phone Adis Franklin MD Primary Care Provider Unavaila ble Reason for Visit * Consultation (Routine) - Closed Specialty Diagnoses / Procedures Referred By Contmendel t Referred To Contact Hematology and Oncology Diagnoses INCONCULSIVE BX SURGEON WOULD LIKE 2ND OPINIONOF FILMS AND PATH Harmeet Rogers MD [address] [place] [address] [facility] Hem Onc [address] [place] [address] Referral ID Status Reason Start Date Expiration Date Visits Re quested Visits Authorized [id number] Closed 05/17/2017 05/17/2018 1 1 Encounter Details Date Type Department Care Team (Latest Contact Info) Description 05/28/2017 12:51 PM EST - 05/28/2017 1:20 PM EST Hospital [place] [phone] Catherine Ghotra MD [facility] [place] [address] Abnormal finding on breast imaging Discharge Disposition: [...] breast documented in this encounter Care Teams Lens Cementer Relationship Specialty Start Date End Date Adis Franklin MD PCP - General 05/23/10 06/24/17 documented as of this encounter
--- OUTSIDE RECORDS SUMMARY | 2024-08-12 10:31 | XMS_ITS | Encounter Summary ---
Author Organization [facility] Address [facility] [place] [address] Care Team Providers Care Sociocultural Anthropology Professor Name Role Phone Angie Alonzo MD Primary Care Provider [phone] Encounter Details Date Type Department Care Team (Late st Contact Info) Description 08/15/2017 11:45 AM EST Office Visit Radiation Oncology at [address] [phone] Iain Link MD [address] [place] [address] [place] [address] Malignant neoplasm of upper-inner quadrant [...] therapy directed at her LEFT breast at [facility] radiation oncology facility under the direction [...] status documented in this encounter Care Teams Sociocultural Anthropology Professor Relationship Specialty Start Date End Date Angie Alonzo MD [address] [place] [address] PCP - General Family Medicine 06/25/17 documented as of this encounter
--- OUTSIDE RECORDS SUMMARY | 2024-08-12 10:31 | XMS_ITS | Encounter Summary ---
Author Organization [facility] Address [facility] [place] [address] Care Team Providers Care Logger Driving Horses Name Role Phone Adis Franklin MD Primary Care Provider Roya lopez Encounter Details Date Type Department Care Team (Latest Contact Info) Description 05/28/2017 1:22 PM EST - 05/28/2017 11:59 PM EST Hospital Encounter Mammography at [facility], [place] [address] Mohit Quiles MD [facility] [place] [address] Abnormal finding on breast imaging Discharge Disposition: [...] using a 12g vacuum assist device. A [place] marker clip was deployed. A follow-up mammogram [...] PM EST 05/28/2017 1:45 PM EST Narrative [facility] - 05/28/2017 1:45 PM EST Specimen requisition ordered. ??Separate Pathology report to follow Mohit Quiles MD PATHOLOGY/CYTOLOGY ORDERABLES [facility] [place] [address] * Surgical Pathology Report (05/28/2017 1:44 PM EST) Final Diagnosis [id number] ? Location: 3L The signing pathologist has [...] FISH. ??Direct analysis was performed using the IdenIve Kit. ??Slide adequacy and signal enumeration were [...] for clinical diagnostic use. Reference: Luis Fernando VILLASENOR, et al. Recommendations for human epidermal growth factor receptor 2 testing in breast cancer: [place] Society of Clinical Oncology/College of [place] Pathologists clinical practice guideline update. J Clin Oncol. 2013 May 01. Reviewed by: Lorna Barnes MD Credit Collector, Molecular Pathology _ Electronically signed by: ??Suriawinata MD, Arief A Verified: ??06/03/2017 ?Pathologist Performed at: ??-[facility], [place], [place] ?Surgical Pathology DIAGNOSIS Needle biopsies: Left breast. Diagnosis: 1. Invasive ductal carcinoma, low grade. ? 2. 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 Microcalcification s: ??N/A . DIAGNOSIS On A1- ER immunoreactivity: Positive ( ??>90 % cancer cells with immunostaining) Stain intensity: Strong SD immunoreactivity: Positive (11-50% cancer cells with immunostaining) [...] ??The assays were performed according to the iphone developer ??'s instructions using Anti-ER (SP1) and Anti-SD (16) antibodies. Electronically signed by: ??Natty Mederos DO Verified: ??05/29/2017 ?Pathologist Performed at: ??-[facility], [place], [place] CLINICAL INFORMATION Specimen Submitted: A - [...] g: (T2) ??amy 06/03/2017 7:45 AM EST [facility] BREAST STRUCTURE / Unknown 05/28/2017 1:44 PM EST 05/28/2017 1:44 PM EST Mohit Quiles MD PATHOLOGY/CYTOLOGY ORDERABLES [facility] [place] [phone] documented in this encounter Visit Diagnoses Diagnosis Abnormal finding on breast imaging Other (abnormal) findings on radiological examination of breast documented in this encounter Administered Medications Inactive Administered Medications - up to 3 most recent administrations Medication Order MAR Action Action Date Dose Rate Site lidocaine (XYLOCAINE) 10 mg/mL (1 %) injection 10 mg 10 mg, Intradermal, ONCE, 1 dose, On Tu05/28/17 at 1345, Routine Given 05/28/2017 1:37 PM EST 10 mg documented in this encounter Care Teams Logger Driving Horses Relationship Specialty Start Date End Date Adis Franklin MD PCP - General 05/23/10 06/24/17 documented as of this encounter
--- OUTSIDE RECORDS SUMMARY | 2024-08-12 10:31 | XMS_ITS | Encounter Summary ---
Author Organization [facility] Address [facility] [place] [address] Care Team Providers Care Corrugated Sheet Material Sheeter Name Role Phone Angie Alonzo MD Primary Care Provider [phone] Encounter Details Date Type Department Care Team (Latest Contact Info) Description 07/23/2017 11:30 AM EST Ancillary Appointment Radiation Oncology at [address] [id number] Bethany Merrill MD [facility] [place] [address] Malignant neoplasm of left female breast, unspecified [...] your treatment to your nurse or doctor. [facility] Radiation Oncology Our normal business hours are: Saturday - Saturday 8 AM to 5 PM [place], [place], [place] For emergent situations after hours please call for either location and ask for the Radiation Oncologist electronic court recorder. documented in this encounter Progress Notes * [...] breast documented in this encounter Care Teams Corrugated Sheet Material Sheeter Relationship Specialty Start Date End Date Angie Alonzo MD [address] [place] [address] PCP - General Family Medicine 06/25/17 documented as of this encounter
--- OUTSIDE RECORDS SUMMARY | 2024-08-12 10:31 | XMS_ITS | Encounter Summary ---
Author Organization [facility] Address [facility] [place] [address] Care Team Providers Care Body Engineer Name Role Phone Angie Alonzo MD Primary Care Provider [phone] Encounter Details Date Type Department Care Team (Late st Contact Info) Description 07/04/2017 10:30 AM [facility] Hospital Encounter Mammography at [facility] [place] [address] Ashley Farooq MD Breast mass Discharge Disposition: [...] meter (FREESTYLE) Kit 1 each [place] [facility]Non-Drug; Combo Route) route as needed for [...] blood-glucose meter (FREESTYLE) Kit, 1 each [place] [facility]Non-Drug; Combo Route) route as needed forOther., Disp: [...] documented in this encounter Results * Mammo Wilson Node Injection (07/04/2017 11:37 AM EST) Anatomical [...] mCi documented in this encounter Care Teams Body Engineer Relationship Specialty Start Date End Date Angie Alonzo MD [address] [place] [address] [address] [place] [address] PCP - General Family Medicine 06/25/17 documented as of this encounter
--- OUTSIDE RECORDS SUMMARY | 2024-08-12 10:31 | XMS_ITS | Encounter Summary ---
Author Organization [facility] Address [facility] [place] [address] Care Team Providers Care Radiation Oncology Nurse Name Role Phone Angie Alonzo MD Primary Care Provider [phone] Reason for Visit * Reason Comments Breast Cancer Encounter Details Date Type Department Care Team (Late st Contact Info) Description 07/17/2017 9:30 AM EST Office Visit Hematology and Oncology at [facility] [place] [address] Kalyan Damico MD Maynard, Kimberly J, RN Malignant neoplasm of upper-inner quadrant of [...] documented in this encounter Progress Notes * Mariha Gaston - 07/17/2017 9:30 AM EST Breast [...] as benign breast and adipose tissue by [facility] pathology. A second opinion wassought here at [facility] which reported scans benign and adipose tissue. [...] assisted biopsy on thewith pathology returning as ER/GA positive (>90% and 11- 50% respectively) low-grade [...] 50 mg by mouth daily. blood-glucose meter (PicovicoSTYLE) Kit 1 each by [facility]Non-Drug; Combo Route) route as needed for Other. [...] disease and CVA Social Hx Lives in [place], [place] with . 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 Lerma in [facility] on 07/22/2017, where she will be getting [...] Dumas to the Breast Oncology Clinic at [facility] Patient seen and examined. 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 Merrill in [facility] next week??and I will contact her during [...] she has any questions. Kalyan Damico MD gallery manager in Hematology-Oncology Cc: Angie Alonzo MD Cc: Ashley Farooq MD Cc: Bethany Merrill MD documented in this encounter Plan of Treatment Not on file documented as of this encounter Visit Diagnoses Diagnosis Malignant neoplasm of upper-inner quadrant of left breast in female, estrogen receptor positive documented in this encounter Care Teams Radiation Oncology Nurse Relationship Specialty Start Date End Date Angie Alonzo MD [address] [place] [address] [facility] [address] [place] [address] PCP - General Family Medicine 06/25/17 documented as of this encounter
--- OUTSIDE RECORDS SUMMARY | 2024-08-12 10:31 | XMS_ITS | Encounter Summary ---
Author Organization [facility] [place] [address] Care Team Providers Care Fare Register Repairer Name Role Phone Adis Franklin MD Primary Care Provider Roya lopez Encounter Details Date Type Department Care Team (Latest Contact Info) Description 05/22/2017 11:10 AM EST - 05/22/2017 11:59 PM EST Hospital Encounter Radiology Library [place] [address] Harmeet Rogers MD Screening breast examination Discharge Disposition: Home Social [...] biopsy Please note: The interpretation of the [facility] Breast Imaging Radiologist subspecialist may differ from the original radiologists interpretation. This is usually not due to a deficiency of the original interpreting radiologist, rather due to the greater skill level afforded by sub-specialization in the field and/or reasonable variations in interpretations. If you have a concern regarding the D-H interpretation you may contact the [facility] Breast Bacon Skin Lifter Office at . Narrative 05/22/2017 11:41 AM EST INTERPRETATION OF OUTSIDE BREAST IMAGING I have been asked to consult on this patient by Dr. Dawson because he/she believes a review of this study may change or alter the care of this patient. STUDIES FROM: [facility] ultrasound from 04/09/2017 with comparison from [...] alter the care of thispatient. STUDIES FROM: [facility] ultrasound from04/09/2017 with comparison from 11/09/2016 [...] biopsy Please note: The interpretation of the [facility] BreastImaging Radiologist subspecialist may differ from the original radiologists interpretation. This is usually not due to a deficiency of the original interpreting radiologist, rather due to the greater skill level affordedby sub-specialization in the field and/or reasonable variations ininterpretations. If you have a concern regarding the D-H interpretation you may [facility] at . Harmeet Pink MD IMG OUTSIDE I NTERPRETATION ORDERABLES documented in this encounter Visit Diagnoses Diagnosis Screening breast examination Other screening breast examination documented in this encounter Care Teams Fare Register Repairer Relationship Specialty Start Date End Date Adis Franklin MD PCP - General 05/23/10 06/24/17 documented as of this encounter
--- OUTSIDE RECORDS SUMMARY | 2024-08-12 10:31 | XMS_ITS | Encounter Summary ---
Author Organization [facility] Address [facility] [place] [address] Care Team Providers Care Electronics Tester Name Role Phone Angie Alonzo MD Primary Care Provider [phone] Encounter Details Date Type Department Care Team (Late st Contact Info) Description 07/04/2017 10:30 AM [facility] Hospital Encounter [facility] [place] [address] Ashley Farooq MD Breast mass Discharge Disposition: [...] blood-glucose meter (FREESTYLE) Kit [address] [facility]Non-Drug; Combo Route) route as needed for Other. [...] breast documented in this encounter Care Teams Electronics Tester Relationship Specialty Start Date End Date Angie Alonzo MD [address] [place] [address] PCP - General Family Medicine 06/25/17 documented as of this encounter
--- OUTSIDE RECORDS SUMMARY | 2024-08-12 10:31 | XMS_ITS | Encounter Summary ---
Author Organization [facility] Address [facility] [place] [address] Care Team Providers Care Special Services Director Name Role Phone Angie Alonzo MD Primary Care Provider [phone] Encounter Details Date Type Department Care Team (Late st Contact Info) Description 07/04/2017 1:32 PM EST - 07/04/2017 3:30 PM EST Surgery Main Operating Room [facility] [place] [phone] Ashley Gloria MD MASTECTOMY PARTIAL (WRVU 10.13) Social History Tobacco [...] Dr. Gloria in 2-3 weeks Please call [phone] to confirm date and time of your appointment if you do not hear from us inthe week. Future Appointments Date Time Provider Department Center 07/17/2017 8:45 AM Ashley Gloria MD [facility] 07/17/2017 9:30 AM Kalyan Damico MD [facility] 07/22/2017 9:[address] [facility] 07/22/2017 10:00 AM Bethany Merrill MD [facility] Call Doctor for: Worsening redness or drainage from your incision lasting longer than 5 days following surgery Any foul-smelling drainage from the incision Fevers greater than 101 degrees F Persistent nausea or vomiting (this may be related to opioid pain medications) Phone number for questions: [phone] before 5 PM weekdays [phone] after 5 PM and on weekends/holidays documented [...] blood-glucose meter (FREESTYLE) Kit 1 each by [facility]Non-Drug; Combo Route) route as needed [...] not concordant, so she was sent to [facility] and had repeat biopsy which [...] blood-glucose meter (FREESTYLE) Kit, 1 each by [facility].(Non-Drug; Combo Route) route as needed [...] + >90% MN + >90% HER2 neg ?? 05/20/17 Needle [...] Questions answered. Ashley Gloria MD 07/04/2017 Pager [phone] documented in this encounter Miscellaneous Notes * Op Note - Ashley Gloria MD - 07/04/2017 4:49 PM EST [facility] Operative Note Patient Name: Abimbola Dumas : [id number] MR#: [id number] Case Date: 07/04/2017 Surgeon: Surgeon(s) and Role: [...] DERM) Left breast partial mastectomy OR 27, #[id number] LEFT BREAST CANCER Left breast partial mastectomy Yes 07/04/2017 3:26 PM Time removed from patient: 3:22 PM SPECIMEN TO PATHOLOGY (SURGICAL OR DERM) Left axillary sentinel lymph node #1 OR 27, #[id number] LEFT BREAST CANCER Left axillary sentinel lymph [...] detected 1cm left breast cancer ER+MN+HER2 neg. Plan for Left breast partial mastectomy [...] Operative Note Patient Name: Abimbola Dumas : [id number] MR#: [id number] Case Date: 07/04/2017 Surgeon: Surgeon(s) and Role: [...] DERM) Left breast partial mastectomy OR 27, #[id number] LEFT BREAST CANCER Left breast partial mastectomy Yes 07/04/2017 3:26 PM Time removed from patient: 3:22 PM SPECIMEN TO PATHOLOGY (SURGICAL OR DERM) Left axillary sentinel lymph node #1 OR 27, #[id number] LEFT BREAST CANCER Left axillary sentinel lymph [...] PM EST 07/04/2017 3:47 PM EST Narrative [facility] - 07/04/2017 3:47 PM EST Specimen requisition ordered. ??Separate Pathology report to follow Ashley Pink MD PATHOLOGY/CYTOLO GY ORDERABLES Performing Organization Address [facility] Co de Phone Number [facility] [place] [address] * Specimen to Pathology (surgical or derm) (07/04/2017 3:26 PM EST) AP Specimen 07/04/2017 3:26 PM EST 07/04/2017 3:26 PM EST Narrative [facility] - 07/04/2017 3:26 PM EST Specimen requisition ordered. ??Separate Pathology report to follow Ashley Pink MD PATHOLOGY/CYTOLO GY ORDERABLES Performing Organization Address [facility] Co de Phone Number [facility] [place] [address] * Surgical Pathology Report (07/04/2017 3:22 PM EST) Final Diagnosis [id number] ? Location: SDP; SD36; A The signing [...] ?? Invasive ductal carcinoma ? Histologic Grade (Ida Histologic Score) ?Glandular (Acinar) / Tubular Differentiation: [...] Lymph Nodes Examined: ?1 ? Number of [place] Nodes Examined: ?1 Pathologic Stage Classification (pTNM, AJCC 8th Edition) ? Primary Tumor (Invasive Carcinoma) (pT): ?pT1b ? Regional Lymph Nodes (pN) ?Category (pN): ?? pN0 Tumor Block(s): ?? B12 Normal Block(s): ?? B6 . DIAGNOSIS 2016 AJCC 8th Edition CAP Annual Release Electronically signed by: ??Gatito MATHEW Natty LaiMark Verified: ??07/12/2017 ?Pathologist Performed at: ??-[facility] Dept. of Pathology, [place], [place] ADDITIONAL STUDIES Immunohistochemistry Studies: Formalin-fixed, paraffin-embedded [...] in slice V. . SPECIMEN PROCESSING SECTIONS/PROCESSING: (1)footwear sales representative sections of slice I, yellow margin; (2)footwear sales representative sections of slice II; (3-7) full-thickness section ??slice IV; (8-13) full-thickness slice V with green margin in cassette 8, black margin in cassette 9, black/orange margin in cassette 10 orange margin in cassette 11 and 12 (includes biopsy clip site) and central edge of biopsy site in cassette 13; (14)footwear sales representative sections of slice ; (15-16)representativ e sections of slice VII; (17) footwear sales representative sections of slice IX, red/blue margin. (R17) Ischemic Time: 120 minutes ??pps 07/12/2017 9:43 AM EST [facility] BREAST STRUCTURE / Unknown 07/04/2017 3:22 PM EST 07/04/2017 3:22 PM EST BREAST STRUCTURE / Unknown 07/04/2017 3:22 PM EST 07/04/2017 3:22 PM EST Ashley Pink MD PATHOLOGY/CYTOLO GY ORDERABLES [facility] [place] [address] documented in this encounter Visit Diagnoses Not [...] on Lawanda 18 at 1557, Until Lawanda 07/04/17 at 2006, [...] RN) documented in this encounter Care Teams Special Services Director Relationship Specialty Start Date End Date Angie Alonzo MD [address] [place] [address] PCP - General Family Medicine 06/25/17 documented as of this encounter
--- OUTSIDE RECORDS SUMMARY | 2024-08-12 10:31 | XMS_ITS | Encounter Summary ---
Author Organization [facility] Address [facility] [place] [address] Care Team Providers Care Assistant To The Ceo Name Role Phone Angie Alonzo MD Primary Care Provider [phone] Encounter Details Date Type Department Care Team (Latest Contact Info) Description 08/30/2017 - 08/30/2017 11:59 PM EST Hospital Encounter Radiology Library at [facility] [place] [address] Bethany Merrill MD [facility] [place] [address] Discharge Disposition: Home Social History Tobacco Use [...] meter (FREESTYLE) Kit 1 each by [facility].(Non-Drug; Combo Route) route as [...] only and is auto-finalizing. Bethany Merrill MD IMG FILM LIBRARY ORD ERABLES [place], [place] documented in this encounter Visit Diagnoses Not on filedocumented in this encounter Care Teams Assistant To The Ceo Relationship Specialty Start Date End Date Angie Alonzo MD [address] [place] [address] PCP - General Family Medicine 06/25/17 documented as of this encounter
--- OUTSIDE RECORDS SUMMARY | 2024-08-12 10:31 | XMS_ITS | Encounter Summary ---
Author Organization [facility] Address [facility] [place] [address] Care Team Providers Care Clinical Psychologist Licensed Name Role Phone Angie Alonzo MD Primary Care Provider [phone] Encounter Details Date Type Department Care Team (Late st Contact Info) Description 07/04/2017 2:42 PM EST Anesthesia Event [place] [address] Dusty Steward MD [place], [place] C, CRNA [facility] [place] [address] Anesthesia Record Procedure Summary Procedure Name Responsible [...] stop data 1629 Recovery or ICU Handoff Mary ent care [...] Time: 1616 07/04/17 1449 by Panchito Velasquez CRNA 07/04/17 1616 by Panchito Velasquez CRNA Incision [...] Steward MD - 07/04/2017 6:46 PM EST [facility] Department of Anesthesiology Post-procedure Note Patient: Abimbola Dumas Procedure Summary Date Anesthesia Start Anesthesia Stop Room / Location 07/04/17 1442 1629 MH OR 27 / [facility] MAIN OR Procedure Diagnosis Surgeon Responsible Provider [...] H, MD All Anesthesia Providers: Anesthesiologist: Dusty tSeward MD EDITORIAL INTERN: Panchito Velasquez CRNA Most Recent Vitals: 07/04/17 1600 BP: 147/57 Pulse: 54 Resp: 18 Temp: 37 ??C (98.6 ??F) SpO2: 99% Pain Patient Location: PACU/SD Level of Consciousness: Awake and Alert Pain [...] meds -> ETT CPAP at home, helps GAETT Informed Consent: Anesthetic plan and risks discussed with patient. Plan discussed with EDITORIAL INTERN. PAT Staff Note documented in this encounter Plan [...] HOURS, 1 dose, First dose on Lawanda 18 at 1245, Administer over 30 Minutes, Intra-Operative (Intra-Procedure), Indication for (Active or Suspected): Prophylaxis Given 07/04/2017 2:59 PM EST 2 g ePHEDrine 5 mg/mL multi-dose injection PRN, Starting on Lawanda 18 at 1559, Until Lawanda 18 at 1729, Anesthesia Intra-op, Routine Given 07/04/2017 [...] on Lawanda 07/04/17 at 1449, Until Lawanda 18 at 1729, Anesthesia Intra-op, Routine Given 07/04/2017 2:49 PM EST 50 mg midazolam (PF) (VERSED) 1 mg/mL multi-dose injection PRN, Starting on Lawanda 18 at 1442, Until Lawanda 18 at 1729, Sleep, Anesthesia Intra-op, Routine Given 07/04/2017 3:00 PM EST 1 mg Given 07/04/2017 2:42 PM EST 1 mg neostigmine (BLOXIVERZ) injection PRN, Starting on Lawanda 07/04/17 at 1609, Until Lawanda 18 at 1729, Anesthesia Intra-op, Routine Given 07/04/2017 [...] mg documented in this encounter Care Teams Clinical Psychologist Licensed Relationship Specialty Start Date End Date Angie Alonzo MD [address] [place] [address] PCP - General Family Medicine 06/25/17 documented as of this encounter
--- OUTSIDE RECORDS SUMMARY | 2024-08-12 10:31 | XMS_ITS | Encounter Summary ---
Author Organization [facility] Address [facility] [place] [address] Care Team Providers Care Manager Programs Name Role Phone Adis Franklin MD Primary Care Provider Roya lopez Encounter Details Date Type Department Care Team (Latest Contact Info) Description 12/04/2016 - 12/04/2016 11:59 PM EDT Hospital Encounter Radiology Library at [facility] [place] [address] Eder Condon MD Breast pain Discharge Disposition: [...] Ultrasound Study (12/04/2016 12:00 AM EDT) Narrative [facility] - 05/17/2017 4:05 PM EST This exam is for storage only and is auto-finalizing. Eder Condon MD IMG FILM LIBRARY ORD ERABLES [facility] [place], [place] documented in this encounter Visit Diagnoses Diagnosis Breast pain Mastodynia documented in this encounter Care Teams Manager Programs Relationship Specialty Start Date End Date Adis Franklin MD PCP - General 05/23/10 06/24/17 documented as of this encounter
--- OUTSIDE RECORDS SUMMARY | 2024-08-12 10:32 | XMS_ITS | Encounter Summary ---
Author Organization [facility] Address [facility] [place] [address] Care Team Providers Care Master Technician Name Role Phone Adis Franklin MD Primary Care Provider Roya lopez Encounter Details Date Type Department Care Team (Latest Contact Info) Description 11/06/2016 - 11/06/2016 11:59 PM EDT Hospital Encounter Radiology Library at [facility] [place] [address] Eder Condon MD Breast pain Discharge Disposition: [...] Only Mammo (11/06/2016 12:00 AM EDT) Narrative [facility] - 05/17/2017 4:11 PM EST This exam is for storage only and is auto-finalizing. Eder Condon MD IMG FILM LIBRARY ORD ERABLES [facility] [place], [place] documented in this encounter Visit Diagnoses Diagnosis Breast pain Mastodynia documented in this encounter Care Teams Master Technician Relationship Specialty Start Date End Date Adis Franklin MD PCP - General 05/23/10 06/24/17 documented as of this encounter
--- OUTSIDE RECORDS SUMMARY | 2024-08-12 10:32 | XMS_ITS | Encounter Summary ---
Author Organization [facility] Address [address] [place] [address] Care Team Providers Care Personal Lines Advisor Name Role Phone Angie Alonzo MD Primary Care Provider [phone] Encounter Details Date Type Department Care Team (Late st Contact Info) Description 12/05/2021 Lab Requisition [facility] Pathology & Laboratory Medicine - [facility] [address] [place], [place] [id number] Outr Resulting Lab, Provider Social History Tobacco Use Types Packs/Day Years Used Date Smoking Tobacco: Never Assessed Interpersonal Safety Answer Date Record ed Physically Hurt Never 02/28/2020 Verbally Threaten Not on file 02/28/2020 Comments Unknown Sex and Gender Information Value Date Recorded Sex Assigned at Not on file Legal Sex Female 18:22 EST Gender Identity Not on file Sexual Orientation [...] C Antibody Negative Negative 12/06/2021 10:24 EDT [facility] Blood VENOUS BLOOD / Unknown 12/04/2021 7:25 EDT 12/05/2021 17:47 EDT us Provider Outr Resulting Lab CHEMISTRY & BLOOD GA S ORDERABLES Final Result [facility] [address] [place] [address] documented in this encounter Visit Diagnoses Not on filedocumented in this encounter Care Teams Personal Lines Advisor Relationship Specialty Start Date End Date Angie Alonzo MD [address] [place] [phone] PCP - General 09/17/14 documented as of this encounter
--- OUTSIDE RECORDS SUMMARY | 2024-08-12 10:32 | XMS_ITS | Encounter Summary ---
Author Organization [facility] Address [facility] [place] [address] Care Team Providers Care Blueprint Engineer Name Role Phone Adis Franklin MD Primary Care Provider Roya lopez Encounter Details Date Type Department Care Team (Latest Contact Info) Description 11/09/2016 - 11/09/2016 11:59 PM EDT Hospital Encounter Radiology Library at [facility] [place] [address] Eder Condon MD Breast pain Discharge Disposition: [...] Ultrasound Study (11/09/2016 12:00 AM EDT) Narrative [facility] - 05/17/2017 4:10 PM EST This exam is for storage only and is auto-finalizing. Eder Condon MD IMG FILM LIBRARY ORD ERABLES [facility] [place], [place] documented in this encounter Visit Diagnoses Diagnosis Breast pain Mastodynia documented in this encounter Care Teams Blueprint Engineer Relationship Specialty Start Date End Date Adis Franklin MD PCP - General 05/23/10 06/24/17 documented as of this encounter
--- OUTSIDE RECORDS SUMMARY | 2024-08-12 10:32 | XMS_ITS | Encounter Summary ---
Author Organization [facility] Address [facility] [place] [address] Care Team Providers Care Patented Hogshead Assembler Name Role Phone Adis Franklin MD Primary Care Provider Roya lopez Encounter Details Date Type Department Care Team (Latest Contact Info) Description 03/06/2012 - 03/06/2012 11:59 PM EDT Hospital Encounter Radiology Library at [facility] [place] [address] Eder Condon MD Discharge Disposition: Home Social History Tobacco [...] Only Mammo (03/06/2012 12:00 AM EDT) Narrative [facility] - 05/21/2017 2:54 PM EST This exam is for storage only and is auto-finalizing. Eder Condon MD IMG FILM LIBRARY ORD ERABLES [place], [place] documented in this encounter Visit Diagnoses Not on filedocumented in this encounter Care Teams Patented Hogshead Assembler Relationship Specialty Start Date End Date Adis Franklin MD PCP - General 05/23/10 06/24/17 documented as of this encounter
--- OUTSIDE RECORDS SUMMARY | 2024-08-12 10:32 | XMS_ITS | Encounter Summary ---
Author Organization [facility] Address [address] [place] [address] Care Team Providers Care Schedule Analyst Name Role Phone Angie Alonzo MD Primary Care Provider [phone] Encounter Details Date Type Department Care Team (Latest Contact Info) Description 09/17/2014 9:41 EDT - 09/17/2014 23:59 EDT Hospital Encounter [address] [address] Unknown, Provider, MD Discharge Disposition: Home or Self Care Social History Tobacco Use Types Packs/Day Years Used Date Smoking Tobacco: Never Assessed Comments Unknown Sex and Gender Information Value [...] on filedocumented in this encounter Care Teams Schedule Analyst Relationship Specialty Start Date End Date Angie Alonzo MD [address] [place] [phone] PCP - General 09/17/14 documented as of this encounter
--- OUTSIDE RECORDS SUMMARY | 2024-08-12 10:32 | XMS_ITS | Encounter Summary ---
Author Organization [facility] Address [address] [place] [address] Care Team Providers Care Traverse Rod Assembler Name Role Phone Angie Zamora MD Primary Care Provider [phone] Encounter Details Date Type Department Care Team (Late st Contact Info) Description 12/04/2016 Results Only [facility] [phone] Michael Woodruff MD [address] [place] [address] [address] [place], [place] [id number] Social History Tobacco Use Types Packs/Day Years [...] ? ABIMBOLA JONES ? Accession #: ? [id number] ? : ? 1945 (Age: 71) ??F [...] (ASCP) 12/05/2016 9:03 AM End of Report [facility] 12/04/2016 19:4 6 EDT 12/04/2016 19:46 EDT us Michael Woodruff MD PATHOLOGY ORDERABLES Fin al Result [facility] [address] [place] [address] documented in this encounter Visit Diagnoses Not on filedocumented in this encounter Care Teams Traverse Rod Assembler Relationship Specialty Start Date End Date Angie Zamora MD [address] [place] [phone] PCP - General 09/17/14 documented as of this encounter
--- OUTSIDE RECORDS SUMMARY | 2024-08-12 10:32 | XMS_ITS | Encounter Summary ---
Author Organization [facility] Address [facility] [place] [address] Care Team Providers Care Vertical Borer Name Role Phone Adis Franklin MD Primary Care Provider Roya lopez Encounter Details Date Type Department Care Team (Latest Contact Info) Description 02/05/2011 - 02/05/2011 11:59 PM EDT Hospital Encounter Radiology Library at [facility] [place] [address] Eder Condon MD Discharge Disposition: Home Social [...] Only Mammo (02/05/2011 12:00 AM EDT) Narrative [facility] - 05/21/2017 2:55 PM EST This exam is for storage only and is auto-finalizing. Eder Condon MD IMG FILM LIBRARY ORD ERABLES [place], [place] documented in this encounter Visit Diagnoses Not on filedocumented in this encounter Care Teams Vertical Borer Relationship Specialty Start Date End Date Adis Franklin MD PCP - General 05/23/10 06/24/17 documented as of this encounter
--- OUTSIDE RECORDS SUMMARY | 2024-08-12 10:32 | XMS_ITS | Encounter Summary ---
Author Organization [facility] [place] [address] Care Team Providers Care Store Clerk Cashier Name Role Phone Unavailable Primary Care Provider Unavailabl e Encounter Details Date Type Department Care Team (Latest Contact Info) Description 09/16/2006 - 09/16/2006 11:59 PM EDT Hospital Encounter Radiology Library at [facility] [place] [address] Eder Condon MD Discharge Disposition: Home Social [...] Only Mammo (09/16/2006 12:00 AM EDT) Narrative RAD - 05/21/2017 2:55 PM EST This exam is for storage only and is auto-finalizing. Eder Condon MD IMG FILM LIBRARY ORD ERABLES [facility] [place] documented in this encounter Visit Diagnoses Not on filedocumented in this encounter
--- OUTSIDE RECORDS SUMMARY | 2024-08-12 10:32 | XMS_ITS | Encounter Summary ---
Author Organization [facility] Address [address] [place] [address] Care Team Providers Care Sales Facilitator Name Role Phone Adis Franklin MD Primary Care Provider [phone] Encounter Details Date Type Department Care Team (Late st Contact Info) Description 09/13/2014 Results Only [facility]- [facility] [phone] Mica Diamond, [address] [place], [place] [id number] Social History Tobacco Use Types Packs/Day Years [...] ? ABIMBOLA JONES ? Accession #: ? [id number] ? : ? 1945 (Age: 68) ??F [...] nevus identified. Comment: The patient's prior material ([id number]) has been reviewed in conjunction with the current specimen. ??(Dr. Sneed)/n Document reviewed and electronically signed by: JANAK [...] Rubén 09/15/2014 8:39 AM End of Report [facility] 09/13/2014 15:4 5 EDT 09/14/2014 15:45 EDT us Mica Diamond DO PATHOLOGY ORDERABLES Fi nal Result [facility] [address] [place] [address] documented in this encounter Visit Diagnoses Not on filedocumented in this encounter Care Teams Sales Facilitator Relationship Specialty Start Date End Date Adis Franklin MD PCP - General 09/01/14 09/16/14 documented as of this encounter
--- OUTSIDE RECORDS SUMMARY | 2024-08-12 10:32 | XMS_ITS | Encounter Summary ---
Author Organization [facility] Address [address] [place] [address] Care Team Providers Care Intake Clinician Name Role Phone Angie Alonzo MD Primary Care Provider [phone] Encounter Details Date Type Department Care Team (Late st Contact Info) Description 02/18/2020 Lab Requisition [facility] Pathology & Laboratory Medicine - [facility] [address] [place] [address] Angie Alonzo MD [address] [phone] Disorder of the skin and [...] SHAVE BIOPSY: - Verruca vulgaris. 02/19/2020 9:19 EDT [facility] Attestation By the signature below, the attending physician certifies that they have 1) personally conducted a gross and/or microscopic examination of the described specimen(s), and/or personally interpreted the results of laboratory testing of the described specimen(s), and 2) personally rendered or confirmed the above diagnosis. 02/19/2020 9:19 EDT [facility] at 0919 Clinical History New pigmented papule left forearm 02/19/2020 9:19 EDT [facility] Gross Description A. Received in formalin labelled with proper patient identification (initials H, I) and shave biopsy left forearm is a rubbery nodular peteresn to park-brown papule, 0.5 x 0.5 x 0.25 cm. The margin is inked. Bisected and entirely submitted in A1. Samantha Greenberg 02/18/2020 17:18 02/19/2020 9:19 EDT [facility] Performing Lab [facility] 02/19/2020 9:19 EDT [facility] Scanned Images 02/19/2020 9:19 EDT [facility] Tissue TISSUE SPECIMEN FROM SKIN / Unknown 02/17/2020 8:30 EDT 02/18/2020 16:27 EDT us Angie Alonzo MD PATHOLOGY ORDERABLES Final Resul t [facility] [address] [place] [address] documented in this encounter Visit Diagnoses Diagnosis Disorder of the skin and subcutaneous tissue, unspecified documented in this encounter Care Teams Intake Clinician Relationship Specialty Start Date End Date Angie Alonzo MD [address] [place] [phone] PCP - General 09/17/14 documented as of this encounter
--- OUTSIDE RECORDS SUMMARY | 2024-08-12 10:32 | XMS_ITS | Encounter Summary ---
Author Organization [facility] Address [facility] [place] [address] Care Team Providers Care Billing And Insurance Coordinator Name Role Phone Adis Franklin MD Primary Care Provider Roya lopez Encounter Details Date Type Department Care Team (Latest Contact Info) Description 07/08/2013 - 07/08/2013 11:59 PM EST Hospital Encounter Radiology Library at [facility] [place] [address] Eder Condon MD Breast pain Discharge Disposition: [...] Only Mammo (07/08/2013 12:00 AM EST) Narrative [facility] - 05/17/2017 4:12 PM EST This exam is for storage only and is auto-finalizing. Eder Condon MD IMG FILM LIBRARY ORD ERABLES [facility] [place], [place] documented in this encounter Visit Diagnoses Diagnosis Breast pain Mastodynia documented in this encounter Care Teams Billing And Insurance Coordinator Relationship Specialty Start Date End Date Adis Franklin MD PCP - General 05/23/10 06/24/17 documented as of this encounter
--- OUTSIDE RECORDS SUMMARY | 2024-08-12 10:32 | XMS_ITS | Encounter Summary ---
Author Organization [facility] Address [facility] [place] [address] Care Team Providers Care Attendant Campground Name Role Phone Adis Franklin MD Primary Care Provider Roya lopez Encounter Details Date Type Department Care Team (Latest Contact Info) Description 11/09/2016 Hospital Encounter Radiology Library at [facility] [place] [address] Eder Condon MD Discharge Disposition: Home Social [...] Only Mammo (11/09/2016 12:00 AM EDT) Narrative [facility] - 05/21/2017 11:37 AM EST This exam is for storage only and is auto-finalizing. Eder Condon MD IMG FILM LIBRARY ORD ERABLES [place], [place] documented in this encounter Visit Diagnoses Not on filedocumented in this encounter Care Teams Attendant Campground Relationship Specialty Start Date End Date Adis Franklin MD PCP - General 05/23/10 06/24/17 documented as of this encounter
--- OUTSIDE RECORDS SUMMARY | 2024-08-12 10:32 | XMS_ITS | Encounter Summary ---
Author Organization [facility] [place] [address] Care Team Providers Care Research Rn Spec Name Role Phone Unavailable Primary Care Provider Unavailabl e Encounter Details Date Type Department Care Team (Latest Contact Info) Description 04/27/2009 - 04/27/2009 11:59 PM EDT Hospital Encounter Radiology Library at [facility] [place] [address] Eder Condon MD Discharge Disposition: Home Social [...] Only Mammo (04/27/2009 12:00 AM EDT) Narrative RAD - 05/21/2017 3:42 PM EST This exam is for storage only and is auto-finalizing. Eder Condon MD IMG FILM LIBRARY ORD ERABLES [facility] [place], [place] documented in this encounter Visit Diagnoses Not on filedocumented in this encounter
--- OUTSIDE RECORDS SUMMARY | 2024-08-12 10:32 | XMS_ITS | Encounter Summary ---
Author Organization [facility] Address [address] [place] [address] Care Team Providers Care Food Prep Worker Name Role Phone Angie Alonzo MD Primary Care Provider [phone] Encounter Details Date Type Department Care Team (Late st Contact Info) Description 03/12/2024 Lab Requisition [facility] Pathology & Laboratory Medicine - [facility] [address] [place] [address] Angie Alonzo MD [address] [phone] Disorder of the skin and [...] Date/Time Associated Diagnosis Comments SURGICAL PATHOLOGY Today 03/11/2024 10 :50 EDT Disorder of the skin and subcutaneous tissue, unspecified documented in this encounter Results * SURGICAL PATHOLOGY (03/11/2024 10:50 EDT) Note to Patient The following pathology results have been interpreted by your pathologist and may be available to you before your health provider has had the opportunity to review them. Please allow time for your provider to receive these results and explore management options, if applicable. 03/13/2024 10:52 [facility] Final Diagnosis A. SKIN OF CHEST, ANTERIOR MID UPPER, SHAVE BIOPSY: - Seborrheic keratosis. 03/13/2024 10:52 [facility] Attestation By the signature below, the attending physician certifies that they have 1) personally conducted a gross and/or microscopic examination of the described specimen(s), and/or personally interpreted the results of laboratory testing of the described specimen(s), and 2) personally rendered or confirmed the above diagnosis. 03/13/2024 10:52 [facility] at 1052 Microscopic Description The stratum corneum is thickened by laminated orthohyperkeratos is. The epidermis is hyperplastic with papillomatosis and acanthosis. There is formation of horn pseudocysts. The keratinocytes have a basaloid appearance with round regular nuclei and a moderate amount of cytoplasm. 03/13/2024 10:52 [facility] Clinical History 8 mm papule, part skin tag, part flat; clinical diagnosis code: L98.9 03/13/2024 10:52 [facility] Gross Description A. Received in formalin labelled with proper patient identification (initials H, I) and anterior mid upper chest is a shave biopsy of a park verrucous nodule (0.8 x 0.4 x 0.3 cm). The margin is inked blue. The specimen is bisected and entirely submitted in A1. Katy Kauffman 03/12/2024 9:10 03/13/2024 10:52 [facility] Performing Lab [facility] 03/13/2024 10:52 [facility] Scanned Images 03/13/2024 10:52 [facility] Tissue SPECIMEN FROM SKIN / Unknown 03/11/2024 10:50 EDT 03/12/2024 7:45 EDT us Angie Alonzo MD PATHOLOGY ORDERABLES Final Resul t [facility] [address] [place] [address] documented in this encounter Visit Diagnoses Diagnosis Disorder of the skin and subcutaneous tissue, unspecified documented in this encounter Care Teams Food Prep Worker Relationship Specialty Start Date End Date Angie Alonzo MD [address] [place] [phone] PCP - General 09/17/14 documented as of this encounter
--- OUTSIDE RECORDS SUMMARY | 2024-08-12 10:32 | XMS_ITS | Encounter Summary ---
Author Organization [facility] Address [address] [place] [address] Care Team Providers Care Health And Social Care Teacher Name Role Phone Unknown, Provider Primary Care Provider Jordon ilable Encounter Details Date Type Department Care Team (Late st Contact Info) Description 02/20/2000 Results Only [facility] [address] [place] [address] Rainer Ramirez MD [address] [place] [address] Social History Tobacco Use Types Packs/Day Years [...] ? ABIMBOLA JONES ? Accession #: ? [id number] ? : ? 1945 (Age: 54) ??F [...] is entirely submitted as (A). [facility] Hoar and colon polyp @10 cm is a single pedunculated polypoid mass measuring 0.8 x 0.5 x 0.3 cm. ??The specimen is bisected and entirely submitted as (B). ??(Dr. Cleary)/[facility] End of Report [facility] 02/20/2000 02/20/2000 15: 52 EDT us Rainer Ramirez MD PATHOLOGY ORDERABLES Final Result [facility] [address] [place] [address] documented in this encounter Visit Diagnoses Not on filedocumented in this encounter Care Teams Health And Social Care Teacher Relationship Specialty Start Date End Date Unknown, Provider, PCP - General 11/10/08 08/31/14 documented as of this encounter
--- OUTSIDE RECORDS SUMMARY | 2024-08-12 10:32 | XMS_ITS | Encounter Summary ---
Author Organization [facility] Address [address] [place] [address] Care Team Providers Care Tree Thinner Name Role Phone Unknown, Provider Primary Care Provider Unavalentin ilable Encounter Details Date Type Department Care Team (Late st Contact Info) Description 08/30/2014 Results Only [facility] [phone] Mica Diamond, [address] [place] [address] Social History Tobacco Use Types Packs/Day Years [...] ? ABIMBOLA JONES ? Accession #: ? [id number] ? : ? 1945 (Age: 68) ??F [...] [place] 08/30/2014 05:18 PM End of Report [facility] 08/30/2014 16:3 1 EST 08/30/2014 16:31 EST us Mica Diamond DO PATHOLOGY ORDERABLES Fi nal Result Performing Organization Address City/State/[facility] Co de Phone Number [facility] [address] [place] [address] documented in this encounter Visit Diagnoses Not on filedocumented in this encounter Care Teams Tree Thinner Relationship Specialty Start Date End Date Unknown, Provider, PCP - General 11/10/08 08/31/14 documented as of this encounter
--- OUTSIDE RECORDS SUMMARY | 2024-08-12 10:32 | XMS_ITS | Referral Summary ---
Author Organization [facility] Address [address] [place] [address] Care Team Providers Care Biofuels Production Technician Name Role Phone Angie Alonzo MD Primary Care Provider [phone] Social History Tobacco Use Types Packs/Day Years [...] file Plan of Treatment Not on file [place] [address] [employer] Address: [facility] [address] [place] [address] MEDICARE [employer] [place] Care Teams Biofuels Production Technician Relationship Specialty Start Date End Date Angie Alonzo MD [address] [place] [phone] PCP - General 09/17/14
--- OUTSIDE RECORDS SUMMARY | 2024-08-12 10:32 | XMS_ITS | Clinical Summary ---
Author Organization [facility] Address [address] [place] [address] Care Team Providers Care Senior Sales Consultant Name Role Phone Angie Alonzo MD Primary Care Provider [phone] Social History Tobacco Use Types Packs/Day Years [...] Health Maintenance Due Date Last Done Comments Fall Risk Screening 11/18/2008 RSV Immunization ( o r 60+ Years) (1 - 1-dose 75+ series) 11/18/2018 COVID-19 Vaccine (2023- season) [address] [place] [address] MEDICARE [employer] [place] Care Teams Senior Sales Consultant Relationship Specialty Start Date End Date Angie Alonzo MD [address] [place] [phone] PCP - General 09/17/14
--- OUTSIDE RECORDS SUMMARY | 2024-08-12 10:32 | XMS_ITS | Encounter Summary ---
Author Organization [facility] Address [address] [place] [address] Care Team Providers Care Head Cager Name Role Phone Angie Alonzo MD Primary Care Provider [phone] Encounter Details Date Type Department Care Team (Late st Contact Info) Description 11/13/2019 Lab Requisition [facility] [address], [place] [id number] Outr Resulting Lab, Provider Social History Tobacco [...] rt-PCR Result NEGATIVE Negative 11/14/2019 10:40 EDT [facility] Comment: 2019-novel Coronavirus (2019-nCoV) not [...] in accordance with CLIA regulations, [employer] [place] (CAP) guidelines (Sep 17, 2019), and FDA guidance (Aug 29, 2019). This test is only for use under the Food and Drug Administration's Emergency Use Authorization. Swab ENTIRE NASOPHARYNX / Unknown 11/13/2019 12:00 EDT 11/13/2019 15:18 EDT us Provider Outr Resulting Lab MICROBIOLOGY - GENER AL ORDERABLES Final Result ED [facility] [place] * COVID-19 TESTING (11/13/2019 12:00 EDT) COVID-19 rt-PCR Result NEGATIVE Negative 11/14/2019 14:33 EDT ED [facility] Comment: 2019-novel Coronavirus (2019-nCoV) not detected [...] in accordance with CLIA regulations, [employer] [place] [employer] (CAP) guidelines (Sep 17, 2019), and FDA guidance (Aug 29, 2019). This test is only for use under the Food and Drug Administration's Emergency Use Authorization. Performing Lab [facility] 11/14/2019 14:33 EDT [facility] Swab ENTIRE NASOPHARYNX / Unknown 11/13/2019 12:00 EDT 11/13/2019 15:18 EDT us Provider Outr Resulting Lab MICROBIOLOGY - GENER AL ORDERABLES Final Result [facility] [address] [place] [address] ED [facility] [place] documented in this encounter Visit Diagnoses Not on filedocumented in this encounter Care Teams Head Cager Relationship Specialty Start Date End Date Angie Alonzo MD [address] [place] [phone] PCP - General 09/17/14 documented as of this encounter
--- OUTSIDE RECORDS SUMMARY | 2024-08-12 10:32 | XMS_ITS | Encounter Summary ---
Author Organization [facility] Address [address] [place] [address] Care Team Providers Care Telephone Coin Box Collector Name Role Phone Unknown, Provider Primary Care Provider Unava ilable Encounter Details Date Type Department Care Team (Latest Contact Info) Description 08/30/2014 15:24 EST - 08/30/2014 23:59 EST Hospital Encounter [address] [address] Unknown, Provider, Discharge Disposition: Home or Self [...] Code Departure Means Destination Home or Self Senior Living documented in this encounter Plan of Treatment Not on file documented as of this encounter Visit Diagnoses Not on filedocumented in this encounter Care Teams Telephone Coin Box Collector Relationship Specialty Start Date End Date Unknown, Provider, PCP - General 11/10/08 08/31/14 documented as of this encounter
--- OUTSIDE RECORDS SUMMARY | 2024-08-12 10:32 | XMS_ITS | Encounter Summary ---
Author Organization [facility] Address [address] [place] [address] Care Team Providers Care Script Worker Name Role Phone Unknown, Provider Primary Care Provider Jordon ilable Encounter Details Date Type Department Care Team (Late st Contact Info) Description 02/05/2001 Results Only [facility] [employer] [address] [place] [address] Matthew Medina MD [address] [place] [phone] Social History Tobacco Use Types [...] ? ABIMBOLA JONES ? Accession #: ? [id number] : ? 1945 (Age: 55) ??F ?Collect Date: ? 02/05/2001 Location: ? [facility] ? Receive Date: ? 02/07/2001 Provider: ?MATTHEW MEDINA MD Copy to: ? Specimen/Source: ?Conventional Pap Test, Vagina Last Menstrual Period: ? 1993 Hormonal/Contracep tive Status: ? Premarin Treatment History: ? BASSAM/BSO: 1994 ? SPECIMEN ADEQUACY ? Satisfactory for evaluation. GENERAL CATEGORIZATION ? Within Normal Limits ? Document reviewed and electronically signed by: ? SUMMER Main(ASCP) ? Report Date: ??02/13/2001 10:37 End of Report [facility] 02/05/2001 02/07/2001 us Matthew Medina MD PATHOLOGY ORDERABLES Final Resul t [facility] [address] [place] [address] documented in this encounter Visit Diagnoses Not on filedocumented in this encounter Care Teams Script Worker Relationship Specialty Start Date End Date Unknown, Provider, PCP - General 11/10/08 08/31/14 documented as of this encounter
--- OUTSIDE RECORDS SUMMARY | 2024-08-12 10:32 | XMS_ITS | Encounter Summary ---
Author Organization [facility] Address [address] [place] [address] Care Team Providers Care Crop Nutrition Scientist Name Role Phone Angie Alonzo MD Primary Care Provider [phone] Encounter Details Date Type Department Care Team (Latest Contact Info) Description 12/04/2016 12:48 EDT - 12/04/2016 23:59 EDT Hospital Encounter [address] [address] Unknown, Provider, MD Discharge Disposition: Home or [...] Code Departure Means Destination Home or Self [place] documented in this encounter Plan of Treatment Not on file documented as of this encounter Visit Diagnoses Not on filedocumented in this encounter Care Teams Crop Nutrition Scientist Relationship Specialty Start Date End Date Angie Alonzo MD [address] [place] [phone] PCP - General 09/17/14 documented as of this encounter
--- OUTSIDE RECORDS SUMMARY | 2024-08-12 10:32 | XMS_ITS | Encounter Summary ---
Author Organization [facility] Address [address] [place] [address] Care Team Providers Care Assistant Professor Of Anthropology Name Role Phone Unavailable Primary Care Provider Unavailabl e Encounter Details Date Type Department Care Team (Late st Contact Info) Description 11/08/2008 Orders Only [facility] Laboratory Services - [facility] ([facility]) [address] [place] [phone] Rainer Ramirez MD [address] [place] [address] Social History Tobacco Use Types Packs/Day Years [...] HOAR, ABIMBOLA M ? Accession #: ? [id number] ? : ? 1945 (Age: 62) ??F [...] bleed/anemia ? Gross Description: ? Received in Hollande's fixative labelled Hoar, Abimbola and esophagus 38 cm ?? biopsy are four pink-petersen, irregular soft tissues ranging from 0.3 x 0.2 x 0.2 ?? cm to 0.4 x 0.2 x 0.1 cm, submitted in toto in (A1) and (A2). (Amita Lopes)/mpl ? End of Report ? [facility] 11/08/2008 11/08/2008 9:2 1 EDT us Rainer Ramirez MD PATHOLOGY ORDERABLES Final Result [facility] [address] [place] [address] documented in this encounter Visit Diagnoses Not on filedocumented in this encounter
--- OUTSIDE RECORDS SUMMARY | 2024-08-12 10:32 | XMS_ITS | Encounter Summary ---
Author Organization [facility] Address [address] [place] [address] Care Team Providers Care Professor Of Criminal Justice Name Role Phone Unknown, Provider Primary Care Provider Jordon belcher Encounter Details Date Type Department Care Team (Late st Contact Info) Description 01/08/2011 Results Only [facility] Laboratory Services - [facility] ([facility]) [address] [place] [phone] Rainer Ramirez MD [address] [place] [address] Social History Tobacco Use Types Packs/Day Years [...] HOAR, ABIMBOLA M ? Accession #: ? [id number] ? : ? 1945 (Age: 65) ??F [...] Description: ? Received in formalin labelled Hoar, Abimbola and biopsy esophagus 38 cm are six petersen-white irregular soft tissues ranging from 0.3 x 0.2 x 0.2 cm to 0.7 x ?? 0.2 x 0.1 cm, submitted in toto in (A1) and (A2). (Amita Lopes)/mpl ? End of Report ? [facility] 01/08/2011 01/09/2011 9:5 4 EDT us Rainer Ramirez MD PATHOLOGY ORDERABLES Final Result Performing Organization Address City/State/[facility] Co de Phone Number [facility] [address] [place] [address] documented in this encounter Visit Diagnoses Not on filedocumented in this encounter Care Teams Professor Of Criminal Justice Relationship Specialty Start Date End Date Unknown, Provider, PCP - General 11/10/08 08/31/14 documented as of this encounter
--- OUTSIDE RECORDS SUMMARY | 2024-08-12 10:32 | XMS_ITS | Encounter Summary ---
Author Organization [facility] Address [facility] [place] [address] Care Team Providers Care Supply Chain Director Name Role Phone Adis Franklin MD Primary Care Provider Roya lopez Encounter Details Date Type Department Care Team (Latest Contact Info) Description 07/21/2014 - 07/21/2014 11:59 PM EST Hospital Encounter Radiology Library at [facility] [place] [phone] Eder Condon MD Breast pain Discharge Disposition: [...] Only Mammo (07/21/2014 12:00 AM EST) Narrative RAD - 05/17/2017 4:11 PM EST This exam is for storage only and is auto-finalizing. Eder Condon MD IMG FILM LIBRARY ORD ERABLES [facility] NAMED [facility] [place], [place] documented in this encounter Visit Diagnoses Diagnosis Breast pain Mastodynia documented in this encounter Care Teams Supply Chain Director Relationship Specialty Start Date End Date Adis Franklin MD PCP - General 05/23/10 06/24/17 documented as of this encounter
--- OUTSIDE RECORDS SUMMARY | 2024-08-12 10:32 | XMS_ITS | Encounter Summary ---
Author Organization [facility] [place] [address] Care Team Providers Care Splash Line Operator Name Role Phone Unavailable Primary Care Provider Unavailabl e Encounter Details Date Type Department Care Team (Latest Contact Info) Description 12/03/2007 - 12/03/2007 11:59 PM EDT Hospital Encounter Radiology Library at [facility] [place] [phone] Eder Condon MD Discharge Disposition: Home Social [...] Only Mammo (12/03/2007 12:00 AM EDT) Narrative RAD - 05/21/2017 2:53 PM EST This exam is for storage only and is auto-finalizing. Eder Condon MD IMG FILM LIBRARY ORD ERABLES [facility] [place] documented in this encounter Visit Diagnoses Not on filedocumented in this encounter
[2024-08-12 15:07] LABS: HCT 46.1 % (36.0-46.0); HGB 15.1 g/dL (11.2-15.7); MCH 29.6 pg (27.0-33.0); MCHC 32.8 % (32.0-36.0); MCV 90 fL (80-95); MPV 9.1 fL (8.0-11.0); Platelet Count 297 10^3/uL (130-400); RDW 14.4 % (11.7-14.6); RDW-SD 47.9 fL; WBC 7.33 10^3/uL (4.4-10.8)
[2024-08-12 15:21] LABS: ALT 20 U/L (14-59); AST 16 U/L (15-37); Albumin 3.7 g/dL (3.4-5.0); Alkaline Phosphatase 82 U/L (46-116); Anion Gap 11.2 mmol/L (3-11); BUN 33 mg/dL (7-18); Bilirubin, Total 0.53 mg/dL (0.2-1.0); CO2 24.8 mmol/L (21.0-32.0); CREATININE 0.9 mg/dL (0.55-1.02); Calcium 9.4 mg/dL (8.5-10.1); Calculated LDL 101 mg/dL (<100); Chloride 108 mmol/L (98-107); Cholesterol 183 mg/dL (<200); Estimated GFR 64.63 (mL/min/1.73m2); Glucose 155 mg/dL (74-106); HDL Cholesterol 51 mg/dL (40-60); Potassium 4.3 mmol/L (3.5-5.1); Sodium 144 mmol/L (136-145); Triglyceride 159 mg/dL (<150)
[2024-08-12 15:42] LABS: COMMENT (LAB VIEW ONLY) 61.14 mg/dL
== END 2024-08-12 10:25 | disposition home or self-care (01) ==
LOC: NCHCN 10:24
PROVIDERS: PCP Family Medicine; Visit Provider Family Medicine
DX: I25.10 Atherosclerotic heart disease of native coronary artery without angina pectoris (principal); I10 Essential (primary) hypertension
CPT/HCPCS: 80053; 80061; 85027; 82043; 82570

== ENCOUNTER 2024-09-14 14:12 | Outpatient (CLI) | payer MEDICARE, SELFPAY ==
--- NOTE | 2024-09-14 13:45 | DI.RAD_ITS ---
Exam(s) XR KNEE LT 1V XR STANDING ALIGNMENT EXAM: XR STANDING ALIGNMENT and XR knee LT 1 V CLINICAL HISTORY: TKR Planning. TECHNIQUE: 2D digital imaging was performed. Five images were obtained. COMPARISON: CR XR HIP LT COMPLETE AP PELVIS from 12/07/2019 CR XR KNEE LT 3V AP,LAT,REINIER from 01/04/2020 CR XR STANDING ALIGNMENT from 02/27/2021 CR XR KNEE LT 1V from 09/14/2024 FINDINGS: BONES: There are bilateral total hip arthroplasties again seen. There are postsurgical changes of a prior right total knee arthroplasty which appears stable on the single AP image. In the left knee, t here are degenerative changes present. There is marked joint space narrowing of the patellofemoral j oint. There osteophytes seen at the patellofemoral joint and the lateral femoral tibial joint. Ther e is chondrocalcinosis in the femoral tibial joint. Old well corticated osseous densities are seen a t the superior aspect of the patella. No significant joint effusion is seen. Orthopedic hardware is seen in the right foot. The ankles are well maintained.There is no significant leg length discrepan cy. SOFT TISSUE: Atherosclerotic calcification is present. IMPRESSION: Marked osteoarthritis of the left knee, particularly the patellofemoral joint. DATA REPOSITORY: RADIATION DOSE DELIVERED:
== END 2024-09-14 14:13 | disposition home or self-care (01) ==
LOC: DIORS 14:12
PROVIDERS: PCP Family Medicine; Referring Provider Family Medicine; Visit Provider Student in an Organized Health Care Education/Training Program
DX: M17.12 Unilateral primary osteoarthritis, left knee (principal)
CPT/HCPCS: 99214; 73560; 77073

== ENCOUNTER 2024-09-14 17:47 | Outpatient (REF) | payer MEDICARE, SELFPAY ==
[2024-09-14 17:12] LABS: HCT 47.4 % (36.0-46.0); HGB 15.3 g/dL (11.2-15.7); MCH 29.7 pg (27.0-33.0); MCHC 32.3 % (32.0-36.0); MCV 92 fL (80-95); MPV 9.2 fL (8.0-11.0); Platelet Count 321 10^3/uL (130-400); RBC 5.15 10^6/uL (3.93-5.22); RDW 14.1 % (11.7-14.6); RDW-SD 47.9 fL; WBC 7.93 10^3/uL (4.4-10.8)
[2024-09-14 17:22] LABS: Anion Gap 6.9 mmol/L (3-11); BUN 31 mg/dL (7-18); CO2 30.1 mmol/L (21.0-32.0); CREATININE 0.8 mg/dL (0.55-1.02); Calcium 9.9 mg/dL (8.5-10.1); Chloride 106 mmol/L (98-107); Estimated GFR 74.44 (mL/min/1.73m2); Glucose 128 mg/dL (74-106); Potassium 4.7 mmol/L (3.5-5.1); Sodium 143 mmol/L (136-145)
== END 2024-09-14 17:48 | disposition home or self-care (01) ==
LOC: LBN 17:47
PROVIDERS: PCP Family Medicine; Visit Provider Student in an Organized Health Care Education/Training Program
DX: M17.12 Unilateral primary osteoarthritis, left knee (principal); Z01.818 Encounter for other preprocedural examination
CPT/HCPCS: 80048; 85027

== ENCOUNTER 2024-09-21 08:27 | Outpatient (CLI) | payer MEDICARE, SELFPAY ==
--- NOTE | 2024-09-21 09:00 | RT.EKG_ITS ---
APPROVED REPORT Exam: Resting ECG Reason for Exam: CAD Patient Location: O HR:64 bpm ECG Measurements Heart Rate 64 AXIS AZ 153 P 33 QRSd 109 QRS -26 QT 441 T -70 QTc 455 Conclusion Sinus rhythm...normal P axis, V-rate 50- 99 Incomplete left bundle branch block...QRSd>110mS, terminal axis(-90,-1) Baseline wander in lead(s) I,II,aVR
== END 2024-09-21 08:28 | disposition home or self-care (01) ==
LOC: DI.CARD 09:12
PROVIDERS: PCP Family Medicine; Referring Provider Family Medicine; Visit Provider Registered Nurse
DX: I25.810 Atherosclerosis of coronary artery bypass graft(s) without angina pectoris (principal)
CPT/HCPCS: 93010

== ENCOUNTER → 2024-09-21 08:27 | Outpatient (BNVA) | payer MEDICARE, SELFPAY | PROVIDERS: PCP Family Medicine; Referring Provider Family Medicine; Visit Provider Registered Nurse | DX: R01.1 Cardiac murmur, unspecified (principal); I25.810 Atherosclerosis of coronary artery bypass graft(s) without angina pectoris | CPT/HCPCS: 93005; 99214 ==

== ENCOUNTER 2024-12-29 02:32 | Outpatient (CLI) | payer MEDICARE, SELFPAY ==
--- NOTE | 2024-12-29 08:30 | DI.US_ITS ---
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 Technically limited study due to body habitus. Conclusion Mild concentric left ventricular hypertrophy. Ejection fraction is 55%. Wall motion is normal Normal right ventricular size and function Both atria are normal in size Aortic valve is calcified and trileaflet. There is mild aortic stenosis. Peak gradient is 23, mean 10 mmHg. Calculated aortic valve area is 1.2 cm??. There is no aortic regurgitation Mild mitral annular calcification, trace mitral regurgitation Ascending aorta measures 3.76 cm Wall motion Left Ventricle The left ventricle is normal size. The left ventricular systolic function is normal. The left ventricular ejection fraction is within the normal range. Mild concentric left ventricular hypertrophy. There is normal LV segmental wall motion. There is no ventricular septal defect visualized. LVEF is 55% Right Ventricle The right ventricle is normal size. The right ventricular systolic function is normal. Atria The left atrium size is normal. The right atrium size is normal. The interatrial septum is intact with no evidence for an atrial septal defect. Aortic Valve Aortic valve is calcified. Aortic valve is trileaflet. Mild aortic stenosis. Peak aortic valve gradient is 22.67 mmHg. Highest mean aortic valve gradient is 10.3 mmHg. Calculated AIDA by the continuity equation is 1.1 cm2. No aortic regurgitation is present. Mitral Valve Mild mitral annular calcification. No evidence of mitral valve stenosis. Trace mitral regurgitation Tricuspid Valve The tricuspid valve is normal in structure. There is no tricuspid valve stenosis. Trace tricuspid regurgitation. Pulmonic Valve The pulmonary valve is normal in structure. There is no pulmonic valvular stenosis. Trace pulmonic regurgitation. Great Vessels The aortic root is normal in size. The ascending aorta is mildly dilated. Aortic arch is normal in caliber. IVC is normal in size and collapses >50% with inspiration. Pericardium There is no pericardial effusion. 2D Dimensions IVSD d PLAX 1.22 cm F: 0.6-1.0 Ao Root d 2.56 cm F: 2.7 - 3.3 LVPW d PLAX 1.16 cm F: 0.6 - 1.0 Ao Asc Diam d 3.76 cm F: 2.3 - 3.1 LVID d PLAX 4.97 cm F: 3.8 - 5.2 LVDs 3.78 cm F: 2.2 - 3.5 LV EF Teichholz 47.6 % FS 23.99 % LV EDV (Teich) 116.7 mL LV ESV (Teich) 61.1 mL Stroke Vol Index (Teich) 27.77 M-Mode TAPSE 1.73 cm (M/F) >1.7 Auto EF LV EDV A4C 90.8 mL LV EDV A2C 107.0 mL LV EDV BP 104.6 mL LV ESV A4C 48.4 mL LV ESV A2C 56.8 mL LV ESV BP 52.4 mL LVEF(%) A4C 46.8 % LVEF(%) A2C 46.9 % LVEF(%) BP 49.9 % LV SV A4C 42.5 ml LV SV A2C 50.2 ml LV SV BP 52.2 ml LV CO A4C 2.6 L/min LV CO A2C 3.4 L/min LV CO BP 3.0 L/min HR A4C 61.86 BPM HR A2C 67.04 BPM LV EDV Index (BP) LA Volume LA Length A4C 5.0 cm LA Length A2C 4.4 cm LA Area A4C s 11.88 cm2 LA Area A2C s 15.22 cm2 LA Vol A4C A-L 23.99 mL LA Vol A2C A-L 44.42 mL LA Vol Biplane A-L 34.7 mL LA Vol/BSA A4C A-L LA Vol/BSA A2C A-L LA Vol/BSA BP A-L 17.3 mL/m2 LA Vol A4C MOD 23.6 mL LA Vol A2C MOD 42.4 mL LA Vol BP MOD 32.7 mL RA Volume RA Area A4C 8.3 cm2 RA ESV A4C (A-L) 13.9mL RA Vol/BSA A4C A-L RA Length A4C 4.3 cm RA ESV A4C (MOD) 14.3mL LV Diastology MV E' medial 0.079 (>0.07 m/s) MV E Vmax 0.70 (0.4-1.3 m/s) MV E/E' MED 8.93 (<14) MV A Vmax 0.55 (0.4-1.3 m/s) MV E' lateral 0.092 (>0.1 m/s) E/A Ratio 1.3 MV E/E' LAT 7.63 (<14) MV E' Average 0.086 m/s MV E/E'(average) 8.23 Aortic Valve AoV Vmax 2.38 m/s LVOT Vmax 0.75 m/s AoV Peak Grad 22.7 mmHg LVOT Peak Grad 2.2 mmHg AoV Area (Vmax) 1.15 cm2 LVOT VTI 0.165 m AoV VTI 0.571 m LVOT Mean Grad 0.8 mmHg AoV Mean Kirill. 1.45 m/s LVOT SV 60.57 mL AoV Mean Grad 10.3 mmHg LVOT Diam s 2.15 cm AoV Area (VTI) 1.06 cm2 AV Regurg Peak Gr. 22.67 mmHg Velocity Ratio 0.32 Mitral Valve MV DT 171 (160-240 msec) Pulmonary Valve PV Vmax 0.97 (0.5-1.5 m/s) RVOT Vmax 0.94 m/s PV Peak Grad 3.8 mmHg RVOT Peak Gr. 3.6 mmHg PV Mean Kirill 0.65 m/s RVOT VTI 0.196 m PV Mean Grad 2.0 mmHg RVOT Mean Gr. 1.7 mmHg
== END 2024-12-29 02:52 ==
PROVIDERS: PCP Family Medicine; Visit Provider Internal Medicine Cardiovascular Disease
DX: I51.7 Cardiomegaly (principal)
CPT/HCPCS: 93306

== ENCOUNTER 2025-01-11 03:00 | Outpatient (CLI) | payer MEDICARE, SELFPAY ==
[2025-01-11 10:41] LABS: HCT 45.1 % (36.0-46.0); HGB 14.7 g/dL (11.2-15.7); MCH 28.3 pg (27.0-33.0); MCHC 32.6 % (32.0-36.0); MCV 87 fL (80-95); MPV 8.8 fL (8.0-11.0); Platelet Count 279 10^3/uL (130-400); RBC 5.20 10^6/uL (3.93-5.22); RDW 14.6 % (11.7-14.6); RDW-SD 46.8 fL; WBC 8.94 10^3/uL (4.4-10.8)
[2025-01-11 11:31] LABS: Anion Gap 9.3 mmol/L (3-11); BUN 27 mg/dL (7-18); CO2 29.7 mmol/L (21.0-32.0); Calcium 8.9 mg/dL (8.5-10.1); Chloride 106 mmol/L (98-107); Estimated GFR 86.83 (mL/min/1.73m2); Glucose 112 mg/dL (74-106); Potassium 3.8 mmol/L (3.5-5.1); Sodium 145 mmol/L (136-145)
== END 2025-01-11 03:01 | disposition home or self-care (01) ==
LOC: LBO 03:00
PROVIDERS: PCP Family Medicine; Visit Provider Student in an Organized Health Care Education/Training Program
DX: M17.12 Unilateral primary osteoarthritis, left knee (principal); Z01.818 Encounter for other preprocedural examination
CPT/HCPCS: 36415; 80048; 85027

== ENCOUNTER 2025-03-03 09:57 | Day surgery (SDC) | payer MEDICARE, SELFPAY ==
[2025-03-03] VITALS (20 sets, daily range): BP systolic 131–190; BP diastolic 51–105; PULSE 56–73; RESP 15–33; TEMP 36.2–36.8; O2SAT 92–97; BMI 31.5
--- NOTE | 2025-03-03 07:27 | W.PM.DSUDISC ---
Date of service: 03/03/25 Discharge Plan Disposition Patient Disposition: Home Condition: Good Discharge Details Reason For Visit: L TKR Attending Provider: Carlos Encinas Primary Care Provider: Angie Alonzo Home Meds and New Rx's Prescriptions: New celecoxib 200 mg capsule 200 mg PO BID Qty: 60 0RF aspirin 81 mg tablet,delayed release (DR/EC) 81 mg PO BID Qty: 60 0RF acetaminophen 500 mg tablet 1,000 mg PO TID Qty: 90 3RF dexamethasone 4 mg tablet 4 mg PO DAILY Qty: 2 0RF docusate sodium 100 mg capsule 100 mg PO BID PRNQty: 28 0RF gabapentin 300 mg capsule 300 mg PO QHS Qty: 14 0RF oxycodone 5 mg tablet 5 mg PO Q4H PRNQty: 18 0RF Continued amlodipine 10 mg tablet 5 mg PO DAILY dapagliflozin propanediol [Farxiga] 10 mg tablet 10 mg PO DAILY pantoprazole 20 mg tablet,delayed release (DR/EC) 20 mg PO DAILY azelastine 137 mcg (0.1 %) spray,non-aerosol 1 spray intranasal DAILY Rx Instructions: administer into each nostril All Day Allergy (cetirizine) 10 mg capsule 10 mg PO DAILY PRN multivitamin [Multi-Day] 1 EACH tablet 1 tab PO DAILY lisinopril 40 mg tablet 40 mg PO DAILY atorvastatin 40 MG tablet 40 mg PO .QPM Citrucel Sugar Free 1,191 GM powder 1 tbs PO DAILY potassium chloride 10 mEq Tablet Extended Release 10 meq PO DAILY furosemide 20 mg tablet 40 mg PO DAILY metoprolol tartrate 25 mg tablet 25 mg PO BID omega-3 fatty acids Capsule 1,250 mg PO DAILY Discontinued acetaminophen 500 mg capsule 1,000 mg PO Q8H PRN PRNQty: 90 0RF aspirin 81 mg Tablet,Delayed Release (Dr/Ec) 81 mg PO DAILY Discharge Instructions Additional Instructions: Total Knee Discharge Instructions Activity: The most important activity is to walk and to work on gentle motion (both flexion and extension). You should try to take short walks a few times a day. It is important that when resting you work on keeping the knee straight. Avoid putting a pillow behind the knee as this will encourage flexion. Work on range of motion exercises as provided by Physical Therapy. - Start outpatient physical therapy within 2 weeks. - You should wear the EULOGIO hose on both legs for 2 weeks. You may remove these at night. You may also use any compression sock in place of the EULOGIO hose. - Utilize [employer] to review exercises, see videos on exercises and obtain basic information pertaining to your surgery and your recovery. Dressing: Remove the Placido wrap by 2 days after your surgery and put on the EULOGIO stocking given to you from the hospital. Keep the surgical dressing (underneath the PLACIDO wrap) in place for at least one week. After the first week it may be removed and replaced with light gauze and tape or nothing. The wound and dressing may get wet after 3 days but avoid soaking the dressing or otherwise it will need to be changed. Many people prefer covering the dressing with cling wrap (saran wrap) to minimize it from getting soaked. If it gets wet, just pat dry. If it starts to peel off then it will need to be changed. Medications: - You should take Tylenol and anti-inflammatory Celebrex as your primary pain control medications. If the Celebrex is too expensive or not covered, please call the office for another alternative (Advil/Ibuprofen or Naproxen/Aleve) - You have been prescribed a stronger pain medication Oxycodone for breakthrough pain, take as needed as prescribed. - You will continue your Pantoprozole to help reduce stomach acid and reflux. - You have been prescribed Gabapentin to take at night for restlessness and nerve pain. - You will be taking Aspirin 81mg twice a day for DVT prevention unless instructed otherwise. - You have also been prescribed Decadron to take to control post-operative nausea and pain. You will start this tomorrow. - If you have constipation you should take Colace or Miralax (both [id number]). It takes most people 3-4 days to have a bowel movement. Follow-up: 2 weeks If you have any acute concerns or questions, please do not hesitate to contact the office at [phone]. You may contact Dr. Encinas with any questions after hours through the hospital at [phone] or on his cell phone at [phone]. Referrals: Carlos Encinas MD [ [facility] STAFF PHYSICIAN, Orthopaedic Surgical] Equipment/Supplies: Walker Activity:: Activity as Tolerated Shower/Bathe:: 72 hours Diet:: As Tolerated Discharge Orders Discharge Orders: Discharge Order (Routine); Ordered 03/03/25 Ordered By: Rowdy Heart
[2025-03-03] MEDS: Gabapentin 300 MG CAP PO (11:03)
[2025-03-03] MEDS: Celecoxib 200 MG CAP 400 MG PO (11:03)
[2025-03-03] MEDS: Acetaminophen 500 MG TAB 1000 MG PO (11:04)
[2025-03-03] MEDS: Lactated Ringers 1,000 ML 80 ML IV (11:05)
--- NOTE | 2025-03-03 11:22 | W.ANESPRE ---
General Info Date of Service Date Performed: 03/03/25 Height: 5 ft 7 in Weight: 91.4 kg Body Mass Index (BMI): 31.5 Surgical Procedure: Operation Date: 03/03/25 13:10 Proposed Procedure Side Surgeon p Knee Total Arthroplasty, Cementless CR Left Carlos Encinas MD Meds Allergies and Home Medications Allergies Allergy/AdvReac Type Severity Reaction Status Date / Time Penicillins Allergy Unknown Pt unaware Verified 03/03/25 10:30 of allery or response Home Medication ?Medication ?Instructions ?Recorded multivitamin (Multi-Day tablet) 1 tab PO DAILY 09/01/12 atorvastatin 40 mg tablet 40 mg PO .QPM 08/16/16 methylcellulose (laxative) 1 tbs PO DAILY 08/16/16 (Citrucel Sugar Free oral powder) lisinopril 40 mg tablet 40 mg PO DAILY 01/08/19 potassium chloride 10 mEq 10 meq PO DAILY 11/16/19 tablet,extended release furosemide 20 mg tablet 40 mg PO DAILY 01/04/20 metoprolol tartrate 25 mg tablet 25 mg PO BID 02/08/21 omega-3 fatty acids 1,250 mg PO DAILY 03/28/22 pantoprazole 20 mg tablet,delayed 20 mg PO DAILY 12/12/22 release azelastine 137 mcg (0.1 %) nasal 1 spray intranasal DAILY 02/14/24 spray cetirizine 10 mg capsule (All Day 10 mg PO DAILY PRN 02/14/24 Allergy (cetirizine)) amlodipine 10 mg tablet 5 mg PO DAILY 03/24/24 dapagliflozin propanediol 10 mg 10 mg PO DAILY 09/21/24 tablet (Farxiga) acetaminophen 500 mg tablet 1,000 mg (2 x 500 mg) PO TID #90 03/03/25 tabs aspirin 81 mg tablet,delayed 81 mg PO BID #60 tabs 03/03/25 release celecoxib 200 mg capsule 200 mg PO BID #60 caps 03/03/25 dexamethasone 4 mg tablet 4 mg PO DAILY #2 tabs 03/03/25 docusate sodium 100 mg capsule 100 mg PO BID PRN #28 caps 03/03/25 gabapentin 300 mg capsule 300 mg PO QHS #14 caps 03/03/25 oxycodone 5 mg tablet 5 mg PO Q4H PRN #18 tabs 03/03/25 Current Visit Medications: Current Medications Generic Name Dose Route Start Last Admin Trade Name Fremary PRN Reason Stop Dose Admin Acetaminophen 1,000 mg 03/03/25 06:00 03/03/25 11:04 Acetaminophen 500 Mg Tab PO 03/03/25 23:59 1,000 mg PREOP EVERARDO Administration Acetaminophen 1,000 mg 03/03/25 07:25 Acetaminophen 500 Mg Tab PO 04/02/25 07:24 TID PRN PRN Analgesia Celecoxib 400 mg 03/03/25 06:00 03/03/25 11:03 Celecoxib 200 Mg Cap PO 03/03/25 23:59 400 mg PREOP EVERARDO Administration Docusate Sodium 100 mg 03/03/25 07:25 Docusate Sodium 100 Mg Cap PO 04/02/25 07:24 BID PRN PRN Constipation Gabapentin 300 mg 03/03/25 06:00 03/03/25 11:03 Gabapentin 300 Mg Cap PO 03/03/25 23:59 300 mg PREOP EVERARDO Administration Ringer's Solution 1,000 mls @ 80 mls/hr 03/03/25 06:00 03/03/25 11:05 IV 03/03/25 23:59 80 mls/hr INFUSION EVERARDO Administration Cefazolin Sodium/Dextrose 2 gm in 50 mls @ 100 mls/hr 03/03/25 06:00 Ancef Duplex IVPB 03/03/25 23:59 PREOP EVERARDO Tranexamic Acid/Sodium Chloride 1,000 mg in 100 mls @ 600 mls/hr 03/03/25 06:00 IVPB 03/03/25 23:59 PREOP EVERARDO IV Miscellaneous Supplies 1 each 03/03/25 06:00 Iv Access IV 03/03/25 23:59 DIRECTED EVERARDO Ondansetron HCl 4 mg 03/03/25 07:25 Ondansetron 4 Mg/2 Ml Vial IVP 04/02/25 07:24 Q6H PRN PRN Nausea Oxycodone HCl 0 mg 03/03/25 07:25 Oxycodone 5 Mg Tab PO 04/02/25 07:24 Q3H PRN PRN Pain Polyethylene Glycol 17 gm 03/03/25 07:25 Polyethylene Glycol 3350 17 Gm Packet PO 04/02/25 07:24 BID PRN PRN Constipation Sodium Chloride 0 ml 03/03/25 06:00 Normal Saline Flush 10 Ml Syr IV 03/03/25 23:59 PRN PRN Sodium Chloride 0 ml 03/03/25 06:00 Normal Saline 10 Ml Vial IJ 03/03/25 23:59 DIRECTED PRN Sterile Water 0 ml 03/03/25 06:00 Water,Injection,Sterile 10 Ml Vial IJ 03/03/25 23:59 DIRECTED PRN PFSH Active Problems Active Problems: Problem Status Onset Code History of total left knee replacement Acute 03/03/25 Z96.652 Coronary artery disease Chronic I25.10 Heart murmur Acute R01.1 Pes planus of right foot Acute M21.41 History of total right knee replacement (TKR) Acute 02/14/21 Z96.651 Primary osteoarthritis of left hip Chronic M16.12 Atypical nevus Acute 09/13/14 D22.9 Neoplasm of skin Acute 08/30/14 D49.2 Primary osteoarthritis of right hip Acute 10/12/16 M16.11 Squamous cell carcinoma in situ Acute 09/13/14 D09.9 Closed fracture of right distal radius Acute S52.501A Medical History Medical History Patellofemoral disorders, right knee Wrist fracture, right Breast CA lt breast Hypertension Barretts esophagus Intracranial hemorrhage, spontaneous intraparenchymal, associated with hypertension, acute 1997 Adenomatous colon polyp History of stroke 1994 Controlled diabetes mellitus without long-term current use of insulin Gastric hemorrhage Pancreatitis 1982 Osteoarthritis Hyperlipidemia Back pain Obstructive sleep apnea Diverticulosis 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 Sciatica of left side Surgical History Surgical History Status post total hip replacement, left History of heart surgery PT states CABG x 4 01/2019 [facility] [place] History of cholecystectomy S/P lumpectomy, left breast History of hysterectomy H/O local excision of skin lesion Total replacement of hip right EGD - IV Sedation 2009-William's 2012 and 2014-nl Colonoscopy - IV Sedation Biopsy of breast (12/04/16) right breast- benign Tobacco Smoking/Tobacco Use Status: Never Passive smoking exposure: No Alcohol Alcohol Intake: current Alcohol intake frequency: holidays/special occasions only Substance Use Substance use: Never Substance use type: does not use Vital Signs and Lab Results Vital Signs Most Recent Vital Signs in EMR: Most Recent Vital Signs Temp Pulse Resp BP Pulse Ox 36.2 C L 66 16 190/58 H 95 03/03/25 10:18 03/03/25 10:18 03/03/25 10:18 03/03/25 10:18 03/03/25 10:18 Point of Care Results Point of Care Results: Finger Stick Blood Glucose 132 03/03/25 10:09 Imaging and Studies Imaging and Studies Study information below may be from another EMR and interpreted by another provider. Please see original notes in EMR for more complete details. Echocardiogram Summary: Conclusion Mild concentric left ventricular hypertrophy. Ejection fraction is 55%. Wall motion is normal Normal right ventricular size and function Both atria are normal in size Aortic valve is calcified and trileaflet. There is mild aortic stenosis. Peak gradient is 23, mean 10 mmHg. Calculated aortic valve area is 1.2 cm??. There is no aortic regurgitation Mild mitral annular calcification, trace mitral regurgitation Ascending aorta measures 3.76 cm Anesthesia Assessment and Plan Anesthesia History Personal History: No History of Anesthesia Complications Family History: No Family History of Anesthesia Complications Exercise Tolerance Exercise Tolerance: Metabolic Equivalents>4 Pertinent Negatives Pertinent Negatives: No Symptoms of GERD Cardiac & Pulmonary Exam Cardiac Exam: Normal S1/S2 Heart Sounds Pulmonary Exam: Clear Bilateral Breath Sounds Implantable Cardiac Device Does patient have a Pacemaker or an ICD?: No Airway Exam Known Difficult Airway: No Mallampati Class: 2 Mouth Opening: Normal (> 3cm) Thyromental Distance: Greater than 3 cm Neck Range of Motion: Full ROM Neck Circumference: Normal Teeth Condition: Normal Dentition ASA Classification ASA Score: ASA 3 Emergency Case?: No NPO Status NPO Status: NPO Clears >2 hours, Solids >8 hours Anesthesia Plan Resuscitation Status: Full Code Anesthesia Technique: Spinal Anesthesia Airway Planned: Natural Airway Pain Management: Surgeon and patient request nerve block Monitors Used: Standard Monitors
--- NOTE | 2025-03-03 11:58 | W.PREOPHP ---
Assessment and Plan Assessment and plan (1) History of total left knee replacement: Status: Acute Assessment and plan: Abimbola is an 79-year-old female who is here today for her left knee replacement. She has known medical history consistent with aortic stenosis, coronary artery disease, diabetes. She has been seen by cardiology with repeat echo which was without significant change and cleared for surgery. She has held her GLP-1 medication. She is anxious to proceed with left knee replacement. I had a long discussion in regards to surgical replacement of the knee. Once again, I reviewed the necessary time for rehabilitation following the procedure. Furthermore, I went over in detail the possible complications of knee replacement. These include but are not limited to bleeding, infection, pain, stiffness, weakness, damage to nerves, damage to vessels, damage to muscle and tendon, fracture, leg length inequality, wound healing complications, instability, component loosening, and blood clot. Questions were answered. I again expressed that this is a surgery to improve functional quality of life. After a review of the presented information and risks, Abimbola desired to proceed. History of Present Illness History of Present Illness Chief Complaint: Left Knee Arthritis Narrative: Abimbola is an 79-year-old female who has known arthritis but the left knee. She has successful previous bilateral hip replacements as well as right knee replacement. She is here today for her left knee replacement. Previous surgery canceled due to upper respiratory infection and the lack of cessation of GLP-1 medication. She is without this medication. She denies any chest pain or shortness of breath. She denies any new medical issues. She is anxious to proceed with her left knee replacement. Review of Systems All systems reviewed & are unremarkable except as noted in HPI and below PFSH All Active Problems History of total left knee replacement (Acute 03/03/25) Coronary artery disease (Chronic) Heart murmur (Acute) aortic valve stenosis Pes planus of right foot (Acute) History of total right knee replacement (TKR) (Acute 02/14/21) Primary osteoarthritis of left hip (Chronic) Atypical nevus (Acute 09/13/14) Neoplasm of skin (Acute 08/30/14) Primary osteoarthritis of right hip (Acute 10/12/16) Squamous cell carcinoma in situ (Acute 09/13/14) Closed fracture of right distal radius (Acute) closed rectuction 06/25/2018 Medical History Patellofemoral disorders, right knee Wrist fracture, right Breast CA lt breast Hypertension Barretts esophagus Intracranial hemorrhage, spontaneous intraparenchymal, associated with hypertension, acute 1997 Adenomatous colon polyp History of stroke 1994 Controlled diabetes mellitus without long-term current use of insulin Gastric hemorrhage Pancreatitis 1982 Osteoarthritis Hyperlipidemia Back pain Obstructive sleep apnea Diverticulosis 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 Brother Heart disease Sister No problems noted. Sister Heart disease Sister No problems noted. Other Diabetes Lung cancer Social History Smoking/Tobacco Use Status: Never Smoking risk assessment performed?: Yes Alcohol Intake: current Alcohol Intake frequency: holidays/special occasions only Drug use: Never Substance use type: does not use Housing: apartment Current gender identity: female Additional Social history: [facility] Meds Allergies and Home Medications Allergies Allergy/AdvReac Type Severity Reaction Status Date / Time Penicillins Allergy Unknown Pt unaware Verified 03/03/25 10:30 of allery or response Home Medications ?Medication ?Instructions ?Recorded ?Confirmed ?Type multivitamin (Multi-Day tablet) 1 tab PO DAILY 09/01/12 03/03/25 History atorvastatin 40 mg tablet 40 mg PO .QPM 08/16/16 03/03/25 History methylcellulose (laxative) 1 tbs PO DAILY 08/16/16 03/03/25 History (Citrucel Sugar Free oral powder) lisinopril 40 mg tablet 40 mg PO DAILY 01/08/19 03/03/25 History potassium chloride 10 mEq 10 meq PO DAILY 11/16/19 03/03/25 History tablet,extended release furosemide 20 mg tablet 40 mg PO DAILY 01/04/20 03/03/25 History metoprolol tartrate 25 mg tablet 25 mg PO BID 02/08/21 03/03/25 History omega-3 fatty acids 1,250 mg PO DAILY 03/28/22 03/03/25 History pantoprazole 20 mg tablet,delayed 20 mg PO DAILY 12/12/22 03/03/25 History release azelastine 137 mcg (0.1 %) nasal 1 spray intranasal DAILY 02/14/24 03/03/25 History spray cetirizine 10 mg capsule (All Day 10 mg PO DAILY PRN 02/14/24 03/03/25 History Allergy (cetirizine)) amlodipine 10 mg tablet 5 mg PO DAILY 03/24/24 03/03/25 History dapagliflozin propanediol 10 mg 10 mg PO DAILY 09/21/24 03/03/25 History tablet (Farxiga) acetaminophen 500 mg tablet 1,000 mg (2 x 500 mg) PO TID #90 03/03/25 Rx tabs aspirin 81 mg tablet,delayed 81 mg PO BID #60 tabs 03/03/25 Rx release celecoxib 200 mg capsule 200 mg PO BID #60 caps 03/03/25 Rx dexamethasone 4 mg tablet 4 mg PO DAILY #2 tabs 03/03/25 Rx docusate sodium 100 mg capsule 100 mg PO BID PRN #28 caps 03/03/25 Rx gabapentin 300 mg capsule 300 mg PO QHS #14 caps 03/03/25 Rx oxycodone 5 mg tablet 5 mg PO Q4H PRN #18 tabs 03/03/25 Rx Exam Const General: cooperative, healthy appearing, comfortable and no acute distress Resp Effort & Inspection: normal respiratory effort Auscultation: clear to auscultation bilaterally Cardio Rate: regular rate Rhythm: regular rhythm Results Last Vital Signs Temp 36.2 C L 03/03/25 10:18 Pulse 66 03/03/25 10:18 Resp 16 03/03/25 10:18 BP 190/58 H 03/03/25 10:18 Pulse Ox 95 03/03/25 10:18
[2025-03-03] MEDS: ceFAZolin 2 GM/50 ML BAG IVPB (12:17)
--- NOTE | 2025-03-03 12:22 | ROE_ITS ---
Operative Note Operative Note PRE-OP DIAGNOSIS: Left Knee Osteoarthritis POST-OP DIAGNOSIS: same PROCEDURE: Left Total Knee Replacement with Intraoperative Navigation SURGEON: Carlos Encinas VICE PRESIDENT DIVERSITY: [facility] ANESTHESIA TYPE: Spinal Refer to Anesthesia Record ESTIMATED BLOOD LOSS: 50 PATHOLOGY: none sent TOURNIQUET TIME: 0 COMPLICATIONS: None Patient was transported to: PACU Patient's condition: stable Implants: 1. Depuy Attune Cementless Cruciate Retaining Femoral Component, Size 6 2. Depuy Attune Cementless Fixed Bearing Tibial Component, Size 6 3. Depuy Attune 6x6mm CR/FB Poly 4. Depuy Attune Patellar Component, Size 38 mm Indications: I have seen Abimbola in clinic for symptoms of LEFT knee arthritis, confirmed with radiographic findings. Abimbola has exhausted nonoperative methods and was having significant limitations in daily function and desired better function and less pain. I discussed the technical details of a knee replacement. I explained the risks of the procedure to include, but not limited to, bleeding, infection, pain, stiffness, fracture, damage to nerves and vessels, damage to muscles and tendons, loosening, need for repeat procedure, blood clot and cardiopulmonary demise. Despite these risks, she elected to proceed. Findings: There was significant signs of arthritis throughout the knee, down to bone laterally and in the trochlea and patella. Procedure Description: Abimbola was greeted in the preoperative holding area where the correct side was identified and marked. The consent was reviewed with the patient and signed. The history and physical was updated. All questions were answered. Preoperative mediacations were administered: Acetaminophen 1000mg, Celebrex 400mg, and Gabapentin 300mg. An adductor canal block was then administered by the anesthesia team in the DSU. [place] was taken back to the operating room. A spinal anesthestic was then administered. The patient was placed into the supine position on the operating room table. Posts were placed for positioning during the procedure. All bony prominences were well padded. Prophylactic antibiotics in the form of Cefazolin were administered. 1g of Tranxemic Acid was given intravenously within 30 minutes of incision. The left leg was then prepped with Chloraprep and draped in a standard fashion with impervious stockinette. A second prep with Chloraprep was performed prior to application of Iodine impregnated skin protection. A timeout to confirm correct identity, side and site, procedure, allergies, anesthesia, and medical concerns was performed. With the knee in some flexion, a midline incision was made overlying the knee. Full thickness skin flaps were raised once the extensor mechanism was encountered. These were raised medially and laterally. Any bleeding was controlled with electrocautery. Once the extensor mechanism was fully exposed, a medial parapatellar arthrotomy was performed in a flexed position. All bleeding from the arthrotomy and the geniculate arteries was coagulated. A medial subperiosteal peel was performed with electrocautery to the midcoronal plane. The fat pad was removed while keeping the patellar tendon protected. The anterior distal femur synovium was removed for later visualization. The ACL and PCL were resected and the anterior horn of the lateral meniscus was transected. The knee was then flexed with the patella everted. A single starting pin was then placed 1cm anterior to the PCL insertion and the notch in the direction of the femoral head. The OrthoAlign device was applied over the pin. It was oriented to be in line with the epicondylar axis and the trochlear groove. It was then pinned into place. The navigation computer was then turned on and calibrated. The distal femur cut was set at 0.5 degrees varus and 3 degrees flexion. The distal femur cutting guide then was positioned for a 9mm cut. The distal femur was cut with an oscillating saw while protecting the soft tissues. The tibia was then addressed. The OrthoAlign device was placed over the tibial tubercle and medial tibia and secured into position. Once again, OrthoAlign was calibrated and then set for a 1 degree varus cut and 5 degrees of posterior slope. With this locked into position, the cut thickness stylus was used to assess cut thickness. The lateral side, most involved side, was set for a 6mm cut. This was then held in position and pinned into place with 2 additional pins and a cross pin for stability. The medial and lateral collateral ligaments were protected and the cut was performed. With this completed, it was assessed and noted to be of appropriate dimensions. The guide and OrthoAlign was removed. A spacer block was inserted and the knee was brought into extension to ensure enough space was present. . The Orthoalign gap balancing device was then placed in extension. This was used to ensure that the ligaments were properly balanced with up to 2 to 3 mm laxity laterally compared medially. The extension gap was measured as 18mm. The knee was then brought into 90 degrees of flexion and the ligament diabetes trainer was once again placed. Under the same amount of force the flexion gap was measured. The Attune specific jig was placed and the flexion gap was made to match the extension gap. The femur was then sized as a size 6. The 4-in-1 cutting guide was the placed. An jamse wing was used to confirm appropriate position of the anterior cut to avoid notching. This cutting guide was ensured to be flush on the cut surface and then pinned into place with headed pins. While protecting the soft tissues, quad tendon, and collateral ligaments, the anterior and posterior cuts were performed with a saw. The central two pins were removed and the posterior and anterior chamfers were cut next. The notch-cutting guide was placed. This was pinned to lateralize the femoral component as much as possible while keeping it flush on the cut surface. This was then pinned into position. A saw was used to make the notch cut. A rasp smoothed the cut surfaces. The medial and lateral menisci were removed. A trial femoral component was then inserted, impacted down to the cut surfaces, and the lug holes were drilled. A provisional trial tibial component was placed and the knee was brought through range of motion. There was noted to be excellent extension and flexion. There was no significant instability. The patella was tracking without thumbs. A size 6mm polyethylene component provided the best range of motion and stability with less than 2mm gapping with medial and lateral stress and full extension without significant hyperextension. The tibial cut surface was fully exposed. The tibia was then sized as a 6. The tibia had been previously marked during trialing to correspond to the center of the tibial component to help with rotation. The trial was aligned to this latrell, approximately rotated to the medial 1/3rd of the tibial tubercle. The trial was pinned into place. The tibia was prepared with a reamer and a keel punch and lug holes. The knee was then brought into extension and the patella was measured as 21mm. Using the patellar clamp and cut guide, this was resected to a flat surface with at least 13mm of thickness remaining. The size 38mm patella fit the best. This was oriented and then clamped into position. The lugs were drilled. The trial components were removed. The final components were opened on the back table. The periosteal and capsular tissues, especially posteriorly, around the knee were then systematically injected with a periarticular cocktail consisting of 246mg of Ropivacaine, 0.5mg of Epinephrine, 0.08mg of Clonidine, and 30mg of Ketorolac, diluted to 100cc. On the back table, with the implants opened, the cement was mixed. One batch of high viscosity cement was prepared with vacuum assistance. After the cement was ready a small amount was placed on the cut surface of the patella and the patellar button was clamped into position and held. Then, the knee components were placed. Starting with the tibial component, the tibia was subluxed anteriorly and the lug holes of the component were lined up. The tibia was then impacted with an impactor and mallet until the tibial component was in contact with the tibia. Then, the femoral component was inserted. The lug holes were aligned and the component was impacted into position. The final polyethylene component was inserted. The knee was irrigated with Surgiphor Betadine solution. This was allowed to sit in the knee for 3 minutes and then it was thoroughly irrigated out with saline. After the cement had finally cured, approximately 15min, the clamp was removed from the patella. The knee was then taken through range of motion. The patella was tracking with a no-thumbs technique. A complete synovectomy of the patella was performed. Any prominence to the lateral facet was resected with a rongeur. The capsule was then reapproximated with a No. 1 Vicryl at multiple locations. The capsule was finally closed with a No. 2 Stratafix, barbed suture. Deep tissues were then reapproximated with 0 Vicryl and 2-0 Vicryl. The skin was closed with a running 3-0 Monocryl in a subcuticular fashion. This was reinforced with skin glue. A Mepilex silver dressing was applied along with a [id number] RASHID wrap. A CryoCuff was applied. Abimbola was transferred to the hospital bed without difficulty an suffering no apparent complication. She has a good prognosis. Physical therapy will start today and without restrictions, weight-bearing as tolerated. Aspirin 81mg BID will be used for DVT prophylaxis. Date of Procedure: 03/03/25
[2025-03-03] MEDS: TRANEXAMIC ACID/SOD. CHL. 1,000 MG/100 ML BAG 600 MG IVPB (12:29)
--- NOTE | 2025-03-03 13:17 | W.ANESNERVE ---
Nerve Block Single Injection Procedure Date and Time Date Performed: 03/03/25 Procedure Start: 12:10 Location Where Procedure Performed Procedure Location: Day Surgery Unit Reason Performed: Postoperative Analgesia Requesting Provider: Carlos Encinas Timeout Performed Timeout Performed: Yes Monitoring Used ECG, Blood Pressure, SpO2 and See EMR for corresponding vital signs Sterility Sterility: Hand Hygiene, Surgical Cap, Surgical Mask, Sterile Gloves and Chlorhexidine Sedation Given During Procedure Sedation Given (Indicate Dose Given): No Sedation given Patient Mental Status Patient Mental Status: Awake Nerve Block 1st Nerve Block: Laterality: Left Block Type: Adductor Canal Ultrasound Image Saved?: Yes Needle / Catheter Used: 80mm SonoPlex II Local Anesthetic Bolus (Indicate Dose Given): Lidocaine used for local infiltration of skin, Injected in 3-5ml increments after negative blood aspiration, Bupivacaine 0.5% Dose:: 10mL and Exparel Dose:: 10mL Additives (Indicate Dose Given): None Ultrasound: Sterile probe cover and gel used Nerve Stimulator: Supplement to Ultrasound use and No twitch or parasthesia noted < 0.5 mA Paresthesia: None Procedure Tolerated: No Complications Procedure Outcome: Successful Performed By: Chrissy Prado
--- NOTE | 2025-03-03 14:28 | W.ANESPOSTOP ---
Postoperative Evaluation Date, Time and Location Date Performed: 03/03/25 Time Performed: 14:28 Patient Location: PACU Vital Signs Most Recent Imported Vital Signs: Most Recent Vital Signs Temp Pulse Resp BP Pulse Ox 36.2 C L 56 L 22 153/105 H 96 03/03/25 14:07 03/03/25 12:05 03/03/25 12:05 03/03/25 12:05 03/03/25 12:05 Pain Score Most Recent Pain Score: Most Recent Pain Score Pain Level 0 03/03/25 14:07 Assessment Mental Status: Awake (Alert & Oriented to Patient Baseline) Airway and Respiratory Function: Patent airway with normal (patient baseline) respiratory exam Cardiovascular Function: Hemodynamically Stable Hydration Status: Adequately Hydrated Nausea & Vomiting: No Nausea or Vomiting Pain: Pt. Denies Any Pain Peripheral Nerve Block: Regional nerve block not resolved at time of post operative discharge
--- NOTE | 2025-03-03 15:35 | IN_ITS ---
PT Notes Visit Reasons: L TKR Physical Therapy Day Surgery Initial Evaluation Date: 03/03/2025 Referring Doctor: DUDLEY Garcia PT Orders: PT CONSULT: Eval/treat Precautions: WBAT through left LE with AD. Patient Profile/Admitting Diagnosis: Abimbola is an 79-year-old female with degenerative joint disease of the left knee and is status post left total knee arthroplasty on postoperative day 0. PMHX: All Active Problems History of total left knee replacement (Acute 03/03/25) Coronary artery disease (Chronic) Heart murmur (Acute) aortic valve stenosis Pes planus of right foot (Acute) History of total right knee replacement (TKR) (Acute 02/14/21) Primary osteoarthritis of left hip (Chronic) Atypical nevus (Acute 09/13/14) Neoplasm of skin (Acute 08/30/14) Primary osteoarthritis of right hip (Acute 10/12/16) Squamous cell carcinoma in situ (Acute 09/13/14) Closed fracture of right distal radius (Acute) closed rectuction 06/25/2018 Medical History Patellofemoral disorders, right knee Wrist fracture, right Breast CA lt breast Hypertension Barretts esophagus Intracranial hemorrhage, spontaneous intraparenchymal, associated with hypertens ion, acute 1997 Adenomatous colon polyp History of stroke 1994 Controlled diabetes mellitus without long-term current use of insulin Gastric hemorrhage Pancreatitis 1982 Osteoarthritis Hyperlipidemia Back pain Obstructive sleep apnea Diverticulosis 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 Sciatica of left side Surgical History Status post total hip replacement, left History of heart surgery PT states CABG [place] 4 [place] [facility] [place] of cholecystectomy S/P lumpectomy, left breast History of hysterectomy H/O local excision of skin lesion Total replacement of hip right EGD - IV Sedation 2009-William's 2012 and 2014-nl Colonoscopy - IV Sedation Biopsy of breast (12/04/16) right breast- benign Social History/Home Situation: Lives in an in-law house adjacent to granddaughter's house. Independent with all aspects of ADLs prior to surgery. Still drives. Equipment Owned/DME: [facility] Subjective: Complained of 2?3/10 pain in the right knee at rest and with movement. Denied headache, chest pain, and lightheadedness throughout session. Objective: General Observation: Resting in bed. RASHID wraps to left LE. Cryocuff to left knee. Mental Status: Alert and oriented x 4 Pain: 2-3/10 in the right knee ROM: Right Lower Extremity: Hip flexion WFL. Hip abduction WFL. Knee flexion WFL. Ankle dorsiflexion WFL. Ankle plantarflexion WFL. Left Lower Extremity: Hip flexion WFL. Hip abduction WFL. Knee flexion 0-100 degrees. Ankle dorsiflexion WFL. Ankle plantarflexion WFL. Strength: Right Lower Extremity: Hip flexors 5/5. Hip abductors 5/5. Knee flexors 5/5. Knee extensors 5/5. Ankle dorsiflexors 5/5. Ankle plantarflexors 5/5. Left Lower Extremity:Hip flexors 4-/5. Hip abductors 4-/5. Knee flexors 3-/5. Knee extensors 3-/5. Ankle dorsiflexors 5/5. Ankle plantarflexors 5/5. Sensation: Intact as to pain and light pressure in bilateral lower extremities Bed Mobility/Transfers: Minimal cueing provided for use of B hands as needed for support, movement sequence, AD management, and posture to reduce fall risk and minimize pain report Supine to sit stand by assist Sit to stand contact guard assist with FWW Stand to sit stand by assist with FWW Bed to chair stand by assist with FWW Gait: Facilitated safe and correct performance of level surface ambulation covering a distance of 150 feet using front wheeled walker with standby assist and minimal verbal cueing for AD management, safe and correct gait pattern, weight distribution, and posture to minimize pain reported reduce fall risk. Stairs: Guided patient with safe and correct negotiation of 2 x 6 inch steps and 3 x 4 inch steps holding onto bilateral rails with step to gait pattern with minimal verbal cueing for hand placement, limb movement sequence, and posture to minimize pain reported reduce fall risk. Balance: Static Sitting: Normal Dynamic Sitting: Normal Static Standing: Fair Dynamic Standing: Fair Special Tests: Mobility Limitations Standardized Measure [facility] 6 clicks Basic Mobility Inpatient Short Form: Raw Score: 23 CMS Score: 11% deficit Informed Consent/Education: Patient instructed in purpose of PT consult. Packet containing TKA exercise protocol has been given to patient. Education and training on initial set of exercises that can be done at home have been completed with patient. Trained patient with correct performance of exercises below to maximize motor control, joint flexibility, soft tissue extensibility of the [] knee musculature: Access Code: [email or web address] URL: [email or web address] Date: 03/03/2025 Prepared by: Jeannie Arthur Exercises - Supine Quad Set - 1 x daily - 7 x weekly - 1 sets - 10 reps - 5 hold - Supine Heel Slide - 1 x daily - 7 x weekly - 1 sets - 10 reps - 5 hold - Supine Ankle Pumps - 1 x daily - 7 x weekly - 1 sets - 10 reps - 5 hold - Small Range Straight Leg Raise - 1 x daily - 7 x weekly - 1 sets - 10 reps - 5 hold - Seated March - 1 x daily - 7 x weekly - 1 sets - 10 reps - 5 hold Assessment: Patient requires the use of a front-wheeled walker for all mobility ADL performance to maximize independence and reduce fall risk. Patient presents with clinical signs and symptoms consistent with current/admitting diagnoses that have resulted to mobility limitations, gait instability, generalized weakness, and impairment of motor control as demonstrated by the following impairment level findings: 1. Decreased strength to left knee major muscle groups 2. Impaired standing balance 3. Limitation of joint range of motion in left knee Impairments are contributing to the following functional limitations: 1. Inability to safely ambulate without assistive device 2. Increase completion time for mobility ADL performance 3. Increased fall risk Patient is assessed as a 63922 moderate complexity based on the following: History: 79-year-old female with impairment level findings, functional li mitations, and past medical history as indicated above Examination: Demonstrable impairment in strength, balance, and mobility level with underlying impairments and functional limitations as documented above Presentation: Evolving Decision Makin moderate complexity Goals: N/A. PT evaluation and 1-2 treatment sessions only for functional mobility training using recommended AD and for HEP instruction. Plan of Care/Treatment Plan: N/A. PT evaluation and 1-2 treatment session only for functional mobility training using recommended AD and for HEP instruction. DISCHARGE RECOMMENDATIONS: Home when medically cleared by orthopedic surgeon. Recommend outpatient PT services in order to optimize functional mobility outcomes and facilitate return to independent community ambulation without an assistive device. TREATMENT CODE/TIME: 72866 x 20 minutes for 1 unit, 12145 x 13 minutes for 1 unit (15:35-16:08). Thank you for the opportunity to participate in the care of this patient. Jeannie Arthur PT, DPT, CLT [facility] [place], [place]
[2025-03-03] MEDS: Tranexamic Acid 650 MG TAB 1300 MG PO (15:38)
== END 2025-03-03 16:40 | disposition home or self-care (01) ==
PROVIDERS: PCP Family Medicine; Visit Provider Student in an Organized Health Care Education/Training Program
PROC: (CPT 27447; principal; 2025-03-03 13:00)
DX: M17.12 Unilateral primary osteoarthritis, left knee (principal); G89.18 Other acute postprocedural pain
CPT/HCPCS: 20985; 27447; 64447; 97162; 97530; C1776; J0665; J0666; J0690; J1100; J2401; J2405; J2704

== ENCOUNTER 2025-03-15 11:52 | Outpatient (CLI) | payer MEDICARE, SELFPAY ==
--- NOTE | 2025-03-15 09:15 | DI.RAD_ITS ---
Exam(s) XR KNEE LT 1V XR STANDING ALIGNMENT EXAM: XR STANDING ALIGNMENT and XR knee LT 1 V CLINICAL HISTORY: 1ST POST OP S/P L TKA. TECHNIQUE: 2D digital imaging was performed. Five images were obtained. COMPARISON: CR XR STANDING ALIGNMENT from 09/14/2024 CR XR KNEE LT 1V from 09/14/2024 FINDINGS: BONES: There again seen bilateral total hip arthroplasties which appears stable. There are stable bilateral total knee arthroplasties. Since the prior examination, there has been placement of a left total knee arthroplasty. Hardware appears in good position. The ankles are well maintained.There is no significant leg length discrepancy. There are postsurgical changes again seen in the right foot. They are incompletely visualized. SOFT TISSUE: Atherosclerotic calcification is present. IMPRESSION: Stable left total knee arthroplasty. DATA REPOSITORY: RADIATION DOSE DELIVERED:
== END 2025-03-15 11:53 | disposition home or self-care (01) ==
LOC: DIORS 11:52
PROVIDERS: PCP Family Medicine; Referring Provider Family Medicine; Visit Provider Physician Assistant
DX: Z47.1 Aftercare following joint replacement surgery (principal); Z96.652 Presence of left artificial knee joint
CPT/HCPCS: 99024; 73560; 77073

== ENCOUNTER → 2025-03-22 08:33 | Outpatient (BNVA) | payer MEDICARE, SELFPAY | PROVIDERS: PCP Family Medicine; Visit Provider Registered Nurse | DX: I25.810 Atherosclerosis of coronary artery bypass graft(s) without angina pectoris (principal); R01.1 Cardiac murmur, unspecified | CPT/HCPCS: 99214 ==

== ENCOUNTER 2025-03-24 01:30 | Outpatient (CLI) | payer MEDICARE, SELFPAY ==
--- NOTE | 2025-03-24 | DI.MAMMO_ITS ---
Exam(s) MG MAMMO SCREENING 60 MIN DUR EXAM: MG MAMMO SCREENING 60 MIN DUR CLINICAL HISTORY: SCREENING MAMMO Z12.31 HX LEFT BREAST CA TECHNIQUE: Bilateral full field digital CC and MLO mammographic images were obtained with 3D tomosynthesis and utilizing computer aided detection (CAD). COMPARISON: Comparison is made with prior examinations. FINDINGS: Masses/Architectural Distortion: No suspicious masses or areas of architectural distortion are present. The patient is status post left lumpectomy. The asymmetric density in the retroareolar region of the right breast is stable. Microcalcifications: No suspicious pleomorphic-type are seen. Skin Thickening/Nipple Retraction: None. IMPRESSION: 1. No significant interval change with no specific features of malignancy noted. 2. Unless there is more urgent need, screening mammography is recommended, as per [place] [employer] guidelines. BI-RADS Category 2 - Benign Findings Breast Density - Category B - There are scattered areas of fibroglandular density. Breast density Category C or D implies that the patient has dense breast tissue. Dense breast tissue can make it harder to find cancer on a mammogram. Dense breast tissue is also associated with an increased risk of breast cancer. This information about the result of the mammogram report was provided to the patient to raise their awareness. Use this report when you speak with the patient about their risks for breast cancer, which includes their family history. At that time, you may recommend additional screening tests (Ultrasound or MRI) as these tests may add significant information. A negative radiographic report should not delay biopsy if a dominant or clinically suspicious mass is present. Up to ten percent of cancers are not identified on mammography. A negative report may reinforce clinical impression. Adenosis and dense breasts may obscure an underlying neoplasm. False positive reports average 6 to 10%. Patient will receive a letter notifying them of these results.
== END 2025-03-24 01:50 ==
LOC: DI 01:30
PROVIDERS: PCP Family Medicine; Visit Provider Family Medicine
DX: Z12.31 Encounter for screening mammogram for malignant neoplasm of breast (principal)
CPT/HCPCS: 77063; 77067

== ENCOUNTER → 2025-04-19 09:18 | Outpatient (BNVA) | payer MEDICARE, SELFPAY | PROVIDERS: PCP Family Medicine; Referring Provider Family Medicine; Visit Provider Physician Assistant | DX: Z47.1 Aftercare following joint replacement surgery (principal); Z96.652 Presence of left artificial knee joint | CPT/HCPCS: 99024 ==

== ENCOUNTER → 2025-05-31 10:06 | Outpatient (BNVA) | payer MEDICARE, SELFPAY | PROVIDERS: PCP Family Medicine; Referring Provider Family Medicine; Visit Provider Student in an Organized Health Care Education/Training Program | DX: Z47.1 Aftercare following joint replacement surgery (principal); Z96.652 Presence of left artificial knee joint | CPT/HCPCS: 99024 ==